=== PATIENT | female | born 1970 | race Caucasian/White ===

== ENCOUNTER 2020-10-11 11:10 | Outpatient (CLI) | payer BC, SELFPAY ==
[2020-10-11 11:26] LABS: Hematocrit 37.8 % (37.0-47.0); Hemoglobin 12.4 g/dL (12.0-15.0)
== END 2020-10-11 11:11 | disposition home or self-care (01) ==
LOC: ANHSURGERY 11:13
PROVIDERS: Anesthesiology; PCP Internal Medicine Infectious Disease; Visit Provider Orthopaedic Surgery
DX: D64.9 Anemia, unspecified (principal); Z01.818 Encounter for other preprocedural examination
CPT/HCPCS: 36415; 85014; 85018

== ENCOUNTER 2020-10-14 01:16 | Outpatient (CLI) | payer BC, SELFPAY ==
[2020-10-14 18:31] LABS: SARS-CoV-2 RNA PCR Positive
== END 2020-10-14 01:17 | disposition home or self-care (01) ==
LOC: ANHCOVIDDT 01:16
PROVIDERS: PCP Internal Medicine Infectious Disease; Visit Provider Orthopaedic Surgery
DX: Z01.812 Encounter for preprocedural laboratory examination (principal); U07.1 COVID-19
CPT/HCPCS: 87635; C9803; U0003

== ENCOUNTER 2020-11-04 01:52 | Outpatient (CLI) | payer BC, SELFPAY ==
[2020-11-04 18:59] LABS: SARS-CoV-2 RNA PCR Negative
== END 2020-11-04 01:53 | disposition home or self-care (01) ==
LOC: ANHCOVIDDT 01:53
PROVIDERS: PCP Internal Medicine Infectious Disease; Visit Provider Orthopaedic Surgery
DX: Z01.818 Encounter for other preprocedural examination (principal); Z20.828 Contact with and (suspected) exposure to other viral communicable diseases
CPT/HCPCS: 87635; C9803; U0003

== ENCOUNTER 2020-11-07 01:26 | Day surgery (SDC) | payer BC, SELFPAY ==
[2020-10-10 08:23] VITALS: BMI 25.1
--- NOTE | 2020-11-06 12:06 | WPDANESEPPF ---
Anes - Initial Pre Proc Eval Procedure: Operation Date: 11/07/20 13:00 Proposed Procedures p Lateral Epicondyle Debridement Left Elbow - Teddy Toussaint MD s Ulnar Nerve Release Left Elbow - Teddy Toussaint MD Date/Time: 11/06/20 12:06 Surgeon: Teddy Toussaint MD Pre Op Diagnosis: Lateral Epicondylitis/ Ulnar Neuropathy Left Elbow Patient Data Age: 50 Gender: F Height: 1.83 m Weight: 84 kg Allergies Allergy/AdvReac Type Severity Reaction Status Date / Time morphine Allergy Severe NAUSEA AND Verified 11/07/20 11:14 VOMITING erythromycin base Allergy Mild RASH Verified 11/07/20 11:14 Home Medications Medication Instructions Recorded Confirmed Type methylphenidate HCl 18 mg 18 mg PO QAM 04/17/20 11/07/20 History tablet,extended release 24 hr oxycodone-acetaminophen 5 mg-325 1 tablet PO Q6H PRN 04/17/20 11/07/20 History mg tablet biotin 2,000 mcg PO DAILY 10/10/20 11/07/20 History buspirone [BuSpar] 10 mg PO QAM 10/10/20 11/07/20 History cholecalciferol (vitamin D3) 50 mcg PO DAILY 10/10/20 11/07/20 History iron 18 mg PO DAILY 10/10/20 11/07/20 History omeprazole 20 mg QAM 10/10/20 11/07/20 History zinc 1 tablet PO QAM 10/10/20 11/07/20 History Patient hx anesthesia problems: none Family hx anesthesia problems: none PMFSH Past Medical History Medical History (Updated 11/06/20 @ 12:08 by Alexsander Sanford MD) Asthma Back pain Chronic GERD Chronic narcotic use Cubital tunnel syndrome on left Lateral epicondylitis, left elbow Medial epicondylitis of left elbow PCOS (polycystic ovarian syndrome) Surgical History Surgical History History of ankle surgery (~10/2008) Lt Ankle (Reconstruction) History of bilateral carpal tunnel release (~09/1992) History of detached retina repair (~2004) Lt Eye History of gastric surgery (~12/2014) History of hammer toe correction (~05/1998) History of repair of anterior cruciate ligament of right knee (~07/2008) History of repair of left rotator cuff (~08/2008) History of spinal fusion (~01/2011) L5-S1 Status post excision of Contreras's neuroma (~05/2013) Family History Family History Unknown History of prostate surgery Asthma Heart disease Arthritis Social History Social History Smoking status: Never smoker Alcohol intake: current Drinks per week: 3 Substance use: never Living arrangements: with family Spiritual care concerns: No Anes - Eval Final PreProcedure Day of Procedure 11/06/20 12:06 Patient weight: normal Heart: regular rate and rhythm Lungs: clear to auscultation and normal air movement Airway: Mallampati scale class II Neurological: alert and oriented Last oral intake: >/= 8 hours ASA classification: III Emergent: no Anesthetic plan: proceed Anesthesia type and monitoring: general LMA Informed Consent: The patient's anesthetic plan and its attendant risks and benefits were discussed with the patient/family/POA. Questions were solicited and answers provided to the satisfaction of the patient/family/POA.
[2020-11-07] VITALS (11 sets, daily range): BP systolic 117–143; BP diastolic 73–98; PULSE 66–93; RESP 16–18; TEMP 36–36.6; O2SAT 93–100
[2020-11-07] MEDS: ACETAMINOPHEN 500 MG TABLET 1000 MG PO (11:20)
[2020-11-07] MEDS: LACTATED RINGERS 1,000 ML 30 ML IV CONT ×2 (11:42→15:03)
[2020-11-07] MEDS: KETOROLAC 15 MG/ML VIAL (*BKC) IV PUSH (11:43)
--- NOTE | 2020-11-07 12:59 | WPDHPUPDATE1 ---
History and Physical Update Update Date/Time: 11/07/20 12:59 History and Physical has been reviewed, including an updated exam of the patient. There are NO changes in the patient's condition. Risks, benefits, and alternatives have been discussed and questions answered. Patient agrees to proceed with procedure.
[2020-11-07] MEDS: ceFAZolin 2 GM/D5W 50 ML 2 GM/50 ML BAG IVPB (13:20)
[2020-11-07] MEDS: BUPIVACAINE HCL 0.5% PF 30 ML VIAL INFILTRATE (13:35)
[2020-11-07] MEDS: fentaNYL CITRATE INJ (*CRX) 100 MCG/2 ML VIAL 25 MCG IV PUSH ×8 (15:26→16:11)
[2020-11-07] MEDS: ONDANSETRON INJ 4 MG/2 ML VIAL IV PUSH (15:58)
--- NOTE | 2020-11-07 16:33 | P.OP_ITS ---
Procedure Note - Detailed Date of procedure: 11/07/20 Pre-op diagnosis: Lateral Epicondylitis/ Ulnar Neuropathy Left Elbow Post-op diagnosis: same Procedure performed: 1. Debridement of lateral epicondylitis, left elbow. 2. Ulnar nerve decompression at the left elbow. Anesthesia: GLMA and MAC Surgeon: Teddy Toussaint MD Estimated blood loss (mL): 5 Complications: None Condition: stable Disposition: PACU Findings: Physician medical office assistant instructor, Carli Mcintyre PA-C, required for surgery; including patient positioning, draping, tissue retraction, maintaining instrument position, wound closure, and dressing placement. Operative details: The patient was brought to the operating room. Preoperative antibiotics were given. A general anesthetic was administered. The arm was prepped and draped in the usual sterile fashion with a well-padded tourniquet on the arm. The limb was exsanguinated and the tourniquet inflated to 250 mililiters of mercury. A longitudinal incision was created over the pathological site at the lateral epicondyle. Dissection was brought down to the interval between the common extensor tendons and the extensor carpi radialis longus. The muscle was elevated, exposing the extensor carpi radialis brevis. Degenerative pathologic tendon was identified and excised sharply. The tissue was intimately connected to the capsule. The intra articular capsule was inspected. There were no significant pathologic tissues or loose bodies ob served. The lateral epicondyle was abraded with a rongeur. The scratch test was to confirm complete excision of pathologic tissue. The wound was carefully irrigated. The extensor tendon origin was repaired with [id number] sutures #1 Vicryl . The skin was closed with interrupted 3-0 Monocryl suture followed by running 4-0 Monocryl suture and Steri-Strips. Attention was turned to the medial elbow. A longitudinal incision was created posterior to the medial epicondyle. Careful dissection was brought down to the ulnar nerve. It was identified proximally and dissected to the cubital tunnel retinaculum. Careful dissection released the cubital tunnel retinaculum. The dissection was carried out to the flexor carpi the palmaris. The 1st motor branch was carefully identified and protected. Attention was turned proximally in the nerve was released proximal to the intermuscular septum. The arm was flexed and the nerve was assessed. The nerve was stable. The tourniquet was released to assure that there was no significant bleeding. Meticulous hemostasis was maintained. The subcutaneous tissues were closed with 2-0 Vicryl suture. The skin was closed with interrupted 3-0 Monocryl suture followed by running 4-0 Monocryl suture and Steri-Strips. Sterile dressing was applied with a brace at the wrist and a soft splint at the elbow. The patient was extubated and brought to the recovery room in stable condition.
[2020-11-07] MEDS: oxyCODONE HCL (*CRX) 5 MG TAB IR PO (16:52)
== END 2020-11-07 17:35 | disposition home or self-care (01) ==
PROVIDERS: PCP Internal Medicine Infectious Disease; Visit Provider Orthopaedic Surgery
PROC: (CPT 24110; principal; 2020-11-07 13:00)
PROC: (CPT 64718; 2020-11-07 13:00)
DX: M77.12 Lateral epicondylitis, left elbow (principal); G56.22 Lesion of ulnar nerve, left upper limb; E28.2 Polycystic ovarian syndrome; Z79.891 Long term (current) use of opiate analgesic
CPT/HCPCS: 64718; 24359; A9270; J0690; J1100; J1885; J2250; J2405; J2704; J3010; J7120

== ENCOUNTER → 2022-12-31 11:30 | Outpatient (CLI) | payer BC, SELFPAY ==
--- NOTE | ~2022-12-31 | MR_ITS ---
EXAMINATION: MR hip LT wo con DATE: 12/31/2022 12:42 INDICATION: Left hip pain. TECHNIQUE: Magnetic resonance imaging (MRI) of the left hip was performed without intravenous contras t. COMPARISON: Left hip radiograph 12/25/2022 FINDINGS: Bones/cartilage: There are changes of posterior and anterior fusion procedures at L5-S1. The femoral head/neck morphol ogies are normal. The hip joints demonstrate tiny osteophytes. There is partial-thickness cartilage l oss of left hip joint superiorly and posterosuperiorly. Labrum: There is degeneration of left acetabular labrum without well-defined tear. Fluid: There is a left hip joint effusion. There is mild bilateral trochanteric bursitis. Soft tissues: There is mild tendinopathy of the hamstring origins bilaterally. The iliopsoas tendons are normal. Th ere is edema and compression of right quadratus femoris muscle between right lesser trochanter and ri ght ischium, consistent with ischiofemoral impingement. There is mild left gluteus minimus tendinopat hy. The gluteus medius tendons are normal. IMPRESSION: 1. Mild left hip chondrosis. 2. Left hip joint effusion. 3. Right-sided ischiofemoral impingement. Reviewed, dictated and finalized at location A. P OPERATOR
== END ==
PROVIDERS: PCP Internal Medicine Infectious Disease; Visit Provider Orthopaedic Surgery
DX: M25.452 Effusion, left hip (principal)
CPT/HCPCS: 73721

== ENCOUNTER 2023-04-24 11:32 | Emergency (ER) | payer BC, SELFPAY ==
--- NOTE | 2023-04-24 11:40 | ED.URI ---
HPI - URI/Sore Throat General Chief Complaint: Upper Respiratory Infection Stated Complaint: cough and left ear pain Time Seen by Provider: 04/24/23 11:40 Source: patient and RN notes reviewed History of Present Illness HPI Narrative: Patient is a 53-year-old female presents to urgent care with complaints of left ear pain and cough. Patient states she believes it started with some allergies when she was in [place] staying at someone's house who had a dog. Patient states that she was taking some Mucinex and allergy medication with mild relief. Patient states she also was using an ear drop to the left ear that has lidocaine. Patient states that ear drops initially did make the ear failed better however over the last couple days she is having increased pain. Patient just flew back from [place] last night. States symptoms started approximately 10 days ago. Denies any fever. No other acute complaints. No acute distress noted. Patient aware of the plan of care. Some parts of this dictation were generated by voice recognition software and may contain typographical and/or grammatical inaccuracies. Related Data Home Medications Medication Instructions Recorded Confirmed buspirone 10 mg tablet 10 mg PO QAM 10/10/20 02/26/23 iron 18 mg tablet 18 mg PO DAILY 10/10/20 02/26/23 zinc 1 tablet PO QAM 10/10/20 02/26/23 duloxetine 20 mg capsule,delayed 20 mg PO BID 12/25/22 02/26/23 release methylphenidate HCl 18 mg 27 mg PO QAM 12/25/22 02/26/23 tablet,extended release 24 hr (Concerta) periton.dialysis 7-2.5 % dextr ml intraperitoneal 12/25/22 02/26/23 (Delflex with 2.5 % Dextrose) Allergies Allergy/AdvReac Type Severity Reaction Status Date / Time morphine Allergy Severe NAUSEA AND Verified 02/26/23 14:53 VOMITING erythromycin base Allergy Mild RASH Verified 02/26/23 14:53 Review of Systems Review of Systems: CONSTITUTIONAL: Denies fever, chills, or sweats. EYES: Denies visual changes, redness, or discharge. ENT: Reports congestion, itchy eyes and left otalgia CARDIOVASCULAR: Denies chest pain, palpitations, or edema. RESPIRATORY: Reports cough without dyspnea GASTROINTESTINAL: Denies abdominal pain, nausea, vomiting, or diarrhea. GENITOURINARY: Denies dysuria or hematuria. SKIN: Denies rash or itching. MUSCULOSKELETAL: Denies back pain, joint pain, or myalgia. NEUROLOGIC: Denies headache, numbness, or weakness. All other systems reviewed are negative, except as documented in HPI. [facility] Past Medical History Medical History Asthma Back pain Chronic GERD Chronic narcotic use Cubital tunnel syndrome on left Lateral epicondylitis, left elbow Medial epicondylitis of left elbow PCOS (polycystic ovarian syndrome) Surgical History Surgical History History of ankle surgery (~10/2008) Lt Ankle (Reconstruction) History of bilateral carpal tunnel release (~09/1992) History of detached retina repair (~2004) Lt Eye History of gastric surgery (~12/2014) History of hammer toe correction (~05/1998) History of repair of anterior cruciate ligament of right knee (~07/2008) History of repair of left rotator cuff (~08/2008) History of spinal fusion (~01/2011) L5-S1 Status post excision of Contreras's neuroma (~05/2013) Family History Family History Unknown History of prostate surgery Asthma Heart disease Arthritis Social History Social History Smoking status: Never smoker Alcohol intake: current Drinks per week: 3 Substance use: never Lack of Transportation: No Lack of Food: Never True Current Housing: I Have Housing Concerned About Future Housing: No Difficulty Paying Gas/Electric Bills: No Difficulty Paying for Meds: No Currently Unemployed: No Education: Decline to Answer
[2023-04-24 11:41] VITALS: BP 150/105; PULSE 95; RESP 18; TEMP 36.8; O2SAT 99
== END 2023-04-24 11:54 | disposition home or self-care (01) ==
PROVIDERS: Emergency Provider Nurse Practitioner Family; PCP Internal Medicine Infectious Disease
DX: R05.9 Cough, unspecified (principal); H69.92 Unspecified Eustachian tube disorder, left ear; J45.909 Unspecified asthma, uncomplicated; K21.9 Gastro-esophageal reflux disease without esophagitis; E28.2 Polycystic ovarian syndrome
CPT/HCPCS: 99213; G0463

== ENCOUNTER 2024-10-08 09:28 | Outpatient (CLI) | payer BC, SELFPAY ==
--- NOTE | 2024-10-08 09:46 | ECG_ITS ---
Test Date: 2024-10-08 10:14:08 Measurements Intervals [place] Rate: 89 P: -7 MI: 146 QRS: 93 QRSD: 88 T: 56 QT: 362 QTc: 442 Interpretive Statements SINUS RHYTHM RIGHT AXIS DEVIATION BASELINE ARTIFACT- I, II, III BORDERLINE ECG No previous ECG available for comparison Electronically Signed On 10-08-2024 10:17:41 REPLENISHMENT ASSOCIATE by Darrius King D.O.
[2024-10-08 09:59] LABS: Hematocrit 43.1 % (37.0-47.0); Hemoglobin 14.2 g/dL (12.0-15.0)
[2024-10-08 10:19] LABS: Albumin Level 4.5 g/dL (3.5-5.1); Estimated Glomerular Filt Rate > 60; Glucose 78 mg/dL (65-110)
== END 2024-10-08 09:29 | disposition home or self-care (01) ==
PROVIDERS: PCP Internal Medicine Infectious Disease; Visit Provider Orthopaedic Surgery
DX: Z01.818 Encounter for other preprocedural examination (principal); M16.12 Unilateral primary osteoarthritis, left hip; R94.31 Abnormal electrocardiogram [ECG] [EKG]
CPT/HCPCS: 36415; 82040; 82565; 82947; 85014; 85018; 93005

== ENCOUNTER 2024-10-25 09:58 | Outpatient (CLI) | payer BC, SELFPAY ==
[2024-10-25 11:57] LABS: Basophils Percent Auto 0.3 % (0.2-1.2); Eosinophils Absolute Auto 0.2 K/mm3 (0-0.3); Eosinophils Percent Auto 1.8 % (0-4.4); Hematocrit 42.9 % (37.0-47.0); Hemoglobin 14.1 g/dL (12.0-15.0); Immature Granulocyte Absolute 0.03 K/mm3 (0.00-0.031); Immature Granulocyte Percent A 0.3 % (0-0.5); Lymphocytes Absolute Auto 2.82 K/mm3 (0.9-3.2); Lymphocytes Percent Auto 30.9 % (18.3-44.2); Mean Corpuscular HGB Conc 32.9 g/dl (32-36); Mean Corpuscular Hemoglobin 31.8 pg (26-34); Mean Corpuscular Volume 96.8 fl (80-100); Mean Platelet Volume 10.4 fl (7.4-10.4); Monocytes Absolute Auto 0.5 K/mm3 (0.1-0.6); Monocytes Percent Auto 4.9 % (2.6-8.5); Neutrophils Absolute Auto 5.6 K/mm3 (1.3-6.7); Neutrophils Percent Auto 61.8 % (45.5-73.1); Platelet Count Result 244 k/mm3 (150-375); Red Blood Count 4.43 M/mm3 (4.2-5.4); Red Cell Distribution Width 12.2 % (11.5-14.5); White Blood Count 9.1 K/mm3 (4.5-10.0)
[2024-10-25 12:11] LABS: Urine Cotinine NEGATIVE
[2024-10-25 13:08] LABS: MRSA (PCR) NOT DETECTED (NOT DETECTE)
[2024-10-25 13:11] LABS: Hemoglobin A1C 5.3 % (<5.7)
== END 2024-10-25 09:59 | disposition home or self-care (01) ==
LOC: ANHSURGERY 10:04
PROVIDERS: PCP Internal Medicine Infectious Disease; Visit Provider Orthopaedic Surgery
DX: Z01.818 Encounter for other preprocedural examination (principal); M16.12 Unilateral primary osteoarthritis, left hip
CPT/HCPCS: 80307; 83036; 85025; 87641

== ENCOUNTER 2024-11-08 00:52 | Day surgery (SDC) | payer BC, SELFPAY ==
[2024-10-25 10:15] VITALS: BP 168/110
[2024-10-25 10:20] VITALS: BP 162/117
[2024-10-25 10:27] VITALS: BP 182/111; PULSE 92; RESP 16; TEMP 36.5; O2SAT 100; BMI 28.7
--- NOTE | 2024-10-25 10:59 | PC.NURSE ---
Report to the Outpatient Waiting Room, entrance under the green pavilion located off [facility], at time ___10:00AM____ on date ___11/08/24____. Planned Procedure Time: ____12:00PM____.? Time changes happen often and if your time is changed the preop area will call you the afternoon before. - You and your visitor will be asked to self-screen and do not enter if you have any COVID symptoms. Please call surgeon if you need to reschedule. - A mask is optional within the hospital at this time. Patients may have clear liquids (water, carbonated beverages, clear teas, apple juice) until 3 hours prior to surgery with a maximum of 20 ounces. - No food from midnight until time of surgery and no smoking. This includes no chewing gum, candy or mints. Take only the following medications with a SIP of water on the morning of surgery: NONE DO NOT STOP ANY OF YOUR OTHER PRESCRIPTION MEDICATIONS PRIOR TO SURGERY EXCEPT THE FOLLOWING Medications to discontinue per physician ____HOLD MELOXICAM 7 DAYS PRE-OP PER DR SPARROW- LAST DOSE 10/31/24 HOLD ALL VITAMINS/SUPPLEMENTS 3 DAYS PRE-OP PER DR LEÓN- LAST DOSE 11/04/24 Please no make-up, nail vietnamese, hairspray, perfume, deodorant, or body powder the day of surgery.? No jewelry (including any body piercings) or valuables the day of surgery, leave them at home.? Please take a shower or bath the night before, or the morning of, surgery with an antibacterial soap.? Wear comfortable, loose fitting clothing.? - Jewelry must be removed prior to entering the operating room.? Rings and piercings that are not removed may be cut off. - The hospital will not accept responsibility for valuables.? - Please leave all valuables, including medications, at home the day of surgery. If you are going home after surgery, a licensed van driver helper must drive you home.? - NO public transportation without another adult if you receive anesthesia. - We recommend that an adult stay with you for 24 hours following discharge. - We also recommend that you do not drive, make important decision, drink alcoholic beverages, or take any drugs that were not prescribed by your health care provider for at least 24 hours after your discharge time. Follow any additional instructions given to you from your surgeon. Telephone instructions given to ___PATIENT and asked if any additional questions and then verbalized understanding. Patient advised to call surgeon office or pre surgery nurse liaison [phone] if any additional questions. Report to the Outpatient Waiting Room, entrance under the green pavilion located off [facility], at time on date . Planned Procedure Time: .? Time changes happen often and if your time is changed the preop area will call you the afternoon before. - You and your visitor will be asked to self-screen and do not enter if you have any COVID symptoms. Please call surgeon if you need to reschedule. - A mask is optional within the hospital at this time. Patients may have clear liquids (water, carbonated beverages, clear teas, apple juice) until 3 hours prior to surgery with a maximum of 20 ounces. - No food from midnight until time of surgery and no smoking. This includes no chewing gum, candy or mints. - Infants may have breast milk until 4 hours before surgery, infant formula 6 hours prior to surgery. - Children will be allowed to drink immediately following surgery.? If applicable, please bring a bottle or sippy cup to assist with drinking. Juice, water, soda, and popsicles are readily available.? For infants on formula, please bring formula the day of surgery.? Pacifiers are allowed. Take only the following medications with a SIP of water on the morning of surgery: DO NOT STOP ANY OF YOUR OTHER PRESCRIPTION MEDICATIONS PRIOR TO SURGERY EXCEPT THE FOLLOWING Medications to discontinue per physician Date to take last dose Please no make-up, nail vietnamese, hairspray, perfume, deodorant, or body powder the day of surgery.? No jewelry (including any body piercings) or valuables the day of surgery, leave them at home.? Please take a shower or bath the night before, or the morning of, surgery with an antibacterial soap.? Wear comfortable, loose fitting clothing.? Children are encouraged to wear pajamas. - Jewelry must be removed prior to entering the operating room.? Rings and piercings that are not removed may be cut off. - The hospital will not accept responsibility for valuables.? - Please leave all valuables, including medications, at home the day of surgery. If you are going home after surgery, a licensed van driver helper must drive you home.? - NO public transportation without another adult if you receive anesthesia. - We recommend that an adult stay with you for 24 hours following discharge. - We also recommend that you do not drive, make important decision, drink alcoholic beverages, or take any drugs that were not prescribed by your health care provider for at least 24 hours after your discharge time. For Pediatric surgeries, we recommend two adults accompany the child home. Follow any additional instructions given to you from your surgeon. Telephone instructions given to and asked if any additional questions and then verbalized understanding. Patient advised to call surgeon office or pre surgery nurse liaison [phone] if any additional questions.
[2024-10-25 11:20] VITALS: BP 187/113
--- NOTE | 2024-10-25 14:00 | PC.NURSE ---
1130 PATIENT INTERVIEW FOR LTHA ON 11/08/24. BP 168/110 AT 1015. 162/117 AT 1020. 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 AT END OF PAT INTERVIEW BP182/111 AT 1115. 187/113 AT 1120. PT DENIES ANY CARDIAC SYMPTOMS, NO DIZZINESS OR HEADACHE. ENCOURAGED PATIENT TO GO TO ER FOR EVALUATION, SHE DECLINED. CALLED PT'S PRIMARY AND THEY WILL SEE PT IN OFFICE THIS AFTERNOON. PT AWARE, GOING TO SEE PCP. SPOKE WITH OFFICE, THEY WILL FAX NOTE FROM PRIMARY AFTER VISIT.
[2024-11-08] VITALS (14 sets, daily range): BP systolic 89–134; BP diastolic 49–86; PULSE 76–105; RESP 12–18; TEMP 36.1–36.4; O2SAT 94–100
--- NOTE | ~2024-11-08 | XR_ITS ---
XR hip LT min 2V Ordering provider: Teddy Toussaint MD History: . POST OP TOTAL HIP . Comparison: None. FINDINGS: BONES: No acute fracture or dislocation. Postoperative changes at the level of L5-S1. HIP JOINT SPACES: Left hip arthroplasty. SACROILIAC JOINT SPACES/LUMBAR SPINE: The sacroiliac joint spaces shows mild osteoarthritic changes. Mild degenerative changes of the visualized lower lumbar spine. PUBIC SYMPHYSIS: Normal. SOFT TISSUES: Normal. IMPRESSION: No acute osseous abnormality pelvis and left hip. Left hip arthroplasty. Reviewed, dictated and finalized at location A. H PRESSER
--- NOTE | 2024-11-08 10:42 | WPDANESEPPF ---
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 Patient Data Age: 54 Gender: F Height: 1.83 m Weight: 96 kg Last Vital Signs Temp 36.5 C 10/25/24 10:27 Pulse 92 10/25/24 10:27 Resp 16 10/25/24 10:27 BP 187/113 H 10/25/24 11:20 Pulse Ox 100 10/25/24 10:27 O2 Del Method Room Air 10/25/24 10:27 Allergies Allergy/AdvReac Type Severity Reaction Status Date / Time morphine Allergy Severe NAUSEA AND Verified 11/01/24 11:02 VOMITING erythromycin base Allergy Mild RASH Verified 11/01/24 11:02 hydrocodone (From Vicodin) AdvReac Nausea and Verified 11/01/24 11:02 Vomiting nylon AdvReac Redness of Verified 11/01/24 11:02 Skin Home Medications ?Medication ?Instructions ?Recorded ?Confirmed ?Type zinc 1 tablet PO QAM 10/10/20 11/08/24 History desipramine 25 mg tablet 25 mg PO QHS 10/06/24 11/08/24 History tizanidine 4 mg capsule 4 mg PO TID 10/06/24 11/08/24 History black cohosh 50 mg capsule 200 mg PO DAILY 10/25/24 11/08/24 History cholecalciferol (vitamin D3) 50 50 mcg PO DAILY 10/25/24 11/08/24 History mcg (2,000 unit) tablet estradiol 0.075 mg/24 hr 1 patch transdermal 2XW 10/25/24 11/08/24 History semiweekly transdermal patch ferrous sulfate 137 mg (45 mg 137 mg PO DAILY 10/25/24 11/08/24 History iron) tablet,extended release (Slow Fe) methylphenidate HCl 36 mg 36 mg PO QAM 10/25/24 11/08/24 History tablet,extended release 24 hr methylphenidate HCl 5 mg tablet 5 mg PO DIRECTED 10/25/24 11/08/24 History sucralfate 100 mg/mL oral See Rx Instructions .Route .COMPLEX 10/25/24 11/08/24 History suspension trazodone 50 mg tablet 50 mg PO HS PRN Sleep 10/25/24 11/08/24 History aspirin 81 mg tablet,delayed 81 mg PO BID 14 days #28 tabs 11/08/24 Rx release meloxicam 15 mg tablet 15 mg PO DAILY #30 tabs 11/08/24 Rx oxycodone-acetaminophen 5 mg-325 1 - 2 tablet PO Q4-6H PRN pain 7 11/08/24 Rx mg tablet days #30 tabs Patient hx anesthesia problems: none Family hx anesthesia problems: none Results Review: All pre-operative results and documents have been reviewed as part of the pre-operative evaluation. [facility] Past Medical History Medical History Asthma Back pain Chronic GERD Chronic narcotic use Cubital tunnel syndrome on left Lateral epicondylitis, left elbow Medial epicondylitis of left elbow PCOS (polycystic ovarian syndrome) Surgical History Surgical History History of ankle surgery (~10/2008) Lt Ankle (Reconstruction) History of bilateral carpal tunnel release (~09/1992) History of detached retina repair (~2004) Lt Eye History of gastric surgery (~12/2014) History of hammer toe correction (~05/1998) History of repair of anterior cruciate ligament of right knee (~07/2008) History of repair of left rotator cuff (~08/2008) History of spinal fusion (~01/2011) L5-S1 Status post excision of Contreras's neuroma (~05/2013) Family History Family History (System 10/27/24 @ 12:01 by Sarah Beth Mcclure) Unknown History of prostate surgery Asthma Heart disease Arthritis Other Family history of arthritis Family history of cardiovascular disease Malignant neoplasm of prostate Social History Social History (System 10/27/24 @ 12:01 by Sarah Beth Mcclure) Smoking status: Never smoker Alcohol intake: current Drinks per week: 3 Substance use: never Do You Feel Safe in your Home?: Yes Lack of Transportation: No Lack of Food: Never True Current Housing: I Have Housing Concerned About Future Housing: No Difficulty Paying Gas/Electric Bills: No Difficulty Paying for Meds: No Currently Unemployed: No Education: Associate Degree Difficulty w/ Childcare or Family Care: No Living arrangements: with family Additional living arrangements comments: CHILDREN Spiritual care concerns: No Anes - Eval Final PreProcedure Day of Procedure 11/08/24 10:42 Patient weight: overweight Heart: regular rate and rhythm Lungs: clear to auscultation Airway: Mallampati scale class II Neurological: alert and oriented Last oral intake: >/= 8 hours ASA classification: III Emergent: no Anesthetic plan: proceed Anesthesia type and monitoring: general ETT and standard monitoring Results Review: All pre-operative results and documents have been reviewed as part of the pre-operative evaluation. Informed Consent: The patient's anesthetic plan and its attendant risks and benefits were discussed with the patient/family/POA. Questions were solicited and answers provided to the satisfaction of the patient/family/POA.
[2024-11-08] MEDS: ACETAMINOPHEN 500 MG TABLET 1000 MG PO (11:25)
[2024-11-08] MEDS: LACTATED RINGERS 1,000 ML 30 ML IV CONT ×2 (11:30→14:18)
[2024-11-08] MEDS: TRANEXAMIC ACID 1,000MG/ISO100 1,000 MG/100 ML BAG 200 MG IVPB (11:30)
[2024-11-08] MEDS: fentaNYL CITRATE INJ (*CRX) 100 MCG/2 ML VIAL 50 MCG IV PUSH (11:39)
--- NOTE | 2024-11-08 11:52 | WPDHPUPDATE1 ---
History and Physical Update Update Date/Time: 11/08/24 11:52 History and Physical has been reviewed, including an updated exam of the patient. There are NO changes in the patient's condition. Risks, benefits, and alternatives have been discussed and questions answered. Patient agrees to proceed with procedure.
[2024-11-08] MEDS: ceFAZolin 2 GM/D5W 50 ML 2 GM/50 ML BAG IVPB ×2 (12:07→19:57)
[2024-11-08] MEDS: SODIUM CHLORIDE 0.9% IV 38.7 ML, ROPivacaine HCL 1% 200 MG, KETOROLAC INJ (*BKC) 15 MG,... INFILTRATE (12:38)
[2024-11-08] MEDS: TRANEXAMIC ACID 1,000 MG/10 ML AMPUL 1000 MG IV PUSH (13:47)
[2024-11-08] MEDS: fentaNYL CITRATE INJ (*CRX) 100 MCG/2 ML VIAL 25 MCG IV PUSH ×4 (14:33→14:40)
--- NOTE | 2024-11-08 14:38 | W.PM.PROC2 ---
Procedure Note - Detailed Date of Procedure 11/08/24 Pre-op Diagnosis Left hip degenerative arthritis. Post-op Diagnosis Same Procedure Performed Left Total Hip Arthroplasty Surgeon Teddy Toussaint MD Macaroni Press Operator Carli Chávez PA-C Anesthesia General Indications Severe pain despite conservative treatment and arthroscopic labral repair elsewhere. Findings Diffuse chondromalacia. Evidence of prior labral and capsule repair. Excellent bone quality. Optimal impingement free range of motion and stability. Description of Procedure The patient was given preoperative antibiotics. A general anesthetic was administered. The patient was carefully placed in the lateral decubitus position on the PEG board. The shoulders and hips were carefully positioned for component and leg length positioning reference. The hip was prepped and draped in the usual sterile fashion. A longitudinal incision was created over the posterior aspect of the greater trochanter. Careful dissection was brought down through the deep fascia with electrocautery. A minimally invasive optimized posterior approach to the hip was performed. The short external rotators and capsule were taken down in an L-shaped capsulotomy. The tissue was tagged for later repair using number 2 high strength suture. The femoral neck was measured and taken in situ. The femoral head was removed. The acetabulum was carefully exposed. The inferior capsule was released. The labrum was resected. The acetabulum was sequentially reamed to one over the intended cup size. The cup was impacted into position with excellent press-fit. Slight increased anteversion and elevated liner, to account for lumbar fusion. Typical anatomic landmarks, including the bony contact points as well as the inferior transverse acetabular ligament were used to confirm cup positioning with preoperative templating. Attention was turned to the femur, which was carefully exposed. The hip was reamed and then broached sequentially. Excellent press-fit was obtained with the broach. The hip was trialed. Measurements were utilized, including the lesser trochanter as well as the center of the femoral head and the tip of the trochanter, and excellent assessment of the offset and leg lengths were confirmed. The real component was impacted into position. Trialing confirmed appropriate leg length and offset with soft tissue balancing as well apparent feel of the leg, both at the knee and the heel. Soft tissues were assessed using the the iliotibial band. Reduction of the posterior capsule and external rotators were also used as a secondary assessment. The hip was copiously irrigated with pulsatile lavage periodically throughout the procedure. The real components were then assembled and reduced. The hip was stable throughout typical maneuvers, including extension, external rotation to 70 degrees, the position of sleep as well as flexion to 90 degrees with internal rotation past 35 degrees. The shake test confirmed stability without impingement. Osteophytes were removed as necessary. The short external rotators and capsule were repaired back to the posterior trochanter through drill holes. The deep fascia was repaired with running number 2 barbed suture, followed by 2-0 Stratafix suture and 3-0 Stratafix suture in the dermis. Steri-Strips were placed on the skin, followed by a sterile occlusive dressing. There were no complications. Meticulous hemostasis was maintained with the AquaMantys device. The patient was brought to the recovery room in stable condition. There were no complications. Physician syrup mixer assistant, Carli Chávez PA-C, required for surgery; including patient positioning, draping, tissue retraction, maintaining instrument position, hip dislocation/ relocation, wound closure, and dressing placement. Implants The Accolade II hip stem, 127 degree size 4 , was utilized with excellent press-fit. The 52 mm Trident II acetabular component was impacted with excellent press-fit stability. 10 degree elevated polyethylene liner the +2.5, 36 mm Biolox ceramic femoral head was utilized. Estimated Blood Loss 200 Drains No Packing No Pathology None sent Complications No immediate complications Condition Stable Disposition PACU [facility] Billing Surgery - Charge Forward: Surgery Billing
[2024-11-08] MEDS: HYDROmorphone HCL INJ (*CRX) 1 MG/ML SYR 0.5 MG IV PUSH ×6 (14:50→22:24)
[2024-11-08] MEDS: oxyCODONE/ACETAMINOPHEN (*CRX) 5-325 MG TABLET 1 TABLET PO (16:22)
[2024-11-08] MEDS: SODIUM CHLORIDE 0.9% IV 1,000 ML 125 ML IV CONT (16:23)
[2024-11-08] MEDS: SENNA/DOCUSATE SODIUM TABLET 2 TAB PO (17:39)
[2024-11-08] MEDS: TIZANIDINE HCL 4 MG TABLET PO (17:39)
[2024-11-08] MEDS: ASPIRIN 81 MG ENTERIC TABLET PO (17:39)
[2024-11-08] MEDS: ACETAMINOPHEN 325 MG TABLET 650 MG PO (17:39)
[2024-11-08] MEDS: LORazepam (*CRX) 1 MG TABLET PO (18:16)
[2024-11-08] MEDS: FAMOTIDINE 20 MG TABLET PO (20:01)
[2024-11-08] MEDS: oxyCODONE/ACETAMINOPHEN (*CRX) 10-325 MG TABLET 1 TAB PO (20:01)
[2024-11-08] MEDS: traZODone HCL 50 MG TABLET PO (20:02)
[2024-11-09 00:17] VITALS: BP 113/57; PULSE 102; RESP 18; TEMP 36.2; O2SAT 97
[2024-11-09] MEDS: ACETAMINOPHEN 325 MG TABLET 650 MG PO ×3 (00:39→12:29)
[2024-11-09] MEDS: oxyCODONE/ACETAMINOPHEN (*CRX) 10-325 MG TABLET 1 TAB PO ×2 (02:29→09:01)
[2024-11-09] MEDS: ceFAZolin 2 GM/D5W 50 ML 2 GM/50 ML BAG IVPB (03:10)
[2024-11-09 05:25] VITALS: BP 119/64; PULSE 100; RESP 16; TEMP 37.1; O2SAT 100
[2024-11-09] MEDS: IBUPROFEN IV 800 MG/200 ML 800 MG/200 ML BAG 400 MG IVPB (06:10)
[2024-11-09 06:46] LABS: Basophils Percent Auto 0.2 % (0.2-1.2); Eosinophils Percent Auto 0.1 % (0-4.4); Hematocrit 35.4 % (37.0-47.0); Hemoglobin 11.7 g/dL (12.0-15.0); Immature Granulocyte Absolute 0.07 K/mm3 (0.00-0.031); Immature Granulocyte Percent A 0.5 % (0-0.5); Lymphocytes Absolute Auto 2.12 K/mm3 (0.9-3.2); Lymphocytes Percent Auto 16.4 % (18.3-44.2); Mean Corpuscular HGB Conc 33.1 g/dl (32-36); Mean Corpuscular Volume 96.7 fl (80-100); Mean Platelet Volume 10.6 fl (7.4-10.4); Monocytes Percent Auto 7.8 % (2.6-8.5); Neutrophils Absolute Auto 9.7 K/mm3 (1.3-6.7); Platelet Count Result 218 k/mm3 (150-375); Red Blood Count 3.66 M/mm3 (4.2-5.4); Red Cell Distribution Width 11.9 % (11.5-14.5); White Blood Count 12.9 K/mm3 (4.5-10.0)
[2024-11-09 06:57] LABS: Anion Gap 3 mmol/L (4-12); Blood Urea Nitrogen 16 mg/dL (7-17); Calcium 8.2 mg/dL (8.4-10.2); Carbon Dioxide 27 mmol/L (22-30); Chloride 102 mmol/L (98-107); Estimated CRCL calculation 73 ml/min; Estimated Glomerular Filt Rate > 60; Glucose 107 mg/dL (65-110); Potassium 3.3 mmol/L (3.4-5.0); Sodium 132 mmol/L (137-145)
[2024-11-09] MEDS: polyethylene glycoL 3350 17 GM POWD.PACK PO (08:54)
[2024-11-09] MEDS: ONDANSETRON INJ 4 MG/2 ML VIAL IV PUSH (08:54)
[2024-11-09] MEDS: SENNA/DOCUSATE SODIUM TABLET 2 TAB PO (08:55)
[2024-11-09] MEDS: TIZANIDINE HCL 4 MG TABLET PO ×2 (08:55→12:29)
[2024-11-09] MEDS: ASPIRIN 81 MG ENTERIC TABLET PO (08:55)
[2024-11-09] MEDS: FAMOTIDINE 20 MG TABLET PO (08:55)
[2024-11-09 09:25] VITALS: BP 109/65; PULSE 89; RESP 16; TEMP 36.6; O2SAT 98
--- NOTE | 2024-11-09 10:08 | P.DS_ITS ---
DS: Admitting Diagnosis Discharge Date 11/09/24 Admitting Diagnosis Left hip degenerative arthritis. DS: Discharge Diagnosis Discharge Diagnosis (1) Status post total hip replacement, left: Code(s): Z96.642 - Presence of left artificial hip joint Status: Acute (2) Orthopedic aftercare for joint replacement: Qualifiers: Joint replacement surgery site: hip Laterality: left Qualified Code(s): Z47.1 - Aftercare following joint replacement surgery; Z96.642 - Presence of left artificial hip joint Code(s): Z47.1 - Aftercare following joint replacement surgery Status: Acute DS: Summary Hospital Course Reason for hospitalization: Total hip arthroplasty. Hospital Course: Tolerated surgery well. Progressed appropriately with therapy. Status at Discharge Functional status at discharge: uses cane/walker Overall status at discharge: patient is progressing back to baseline Time Spent with Patient Time attestation: Total time spent providing and/or coordinating discharge services: Exam Const: General: no acute distress Resp: Effort & Inspection: normal respiratory effort Skin: Other: Wound healing well. Mepilex dressing intact. No hematoma or drainage. Neuro: Motor exam (neuro): 5/5 motor strength present throughout Sensory Exam: normal sensation Psych: Mental Status: mental status grossly normal Speech and movement: Normal speech and movement present DS: Data Data Completed and Pending Labs on day of discharge: Labs from last 24 hours 11/09/24 11/08/24 06:29 11:14 WBC 12.9 H RBC 3.66 L Hgb 11.7 L Hct 35.4 L MCV 96.7 MCH 32.0 MCHC 33.1 RDW 11.9 Plt Count 218 MPV 10.6 H Immature Gran % (Auto) 0.5 Neut % (Auto) 75.0 H Lymph % (Auto) 16.4 L [place] % (Auto) 7.8 Eos % (Auto) 0.1 Baso % (Auto) 0.2 Lymph # (Auto) 2.12 [place] # (Auto) 1.0 H Eos # (Auto) 0.0 Baso # (Auto) 0.0 Abs Immat Gran (auto) 0.07 H Absolute Neuts (auto) 9.7 H Absolute Nucleated RBC 0.000 Nucleated RBC % 0.0 Sodium 132 L Potassium 3.3 L Chloride 102 Carbon Dioxide 27 Anion Gap 3 L BUN 16 Creatinine 0.90 Estim Creat Clear Calc 73 Estimated GFR > 60 Glucose 107 Calcium 8.2 L Blood Type O Positive Antibody Screen Negative Discharge Plan Discharge Patient Disposition: Home, Self-Care Discharge Instructions: See green instruction sheets Patient Language: Citizen Of [place] Stand Alone Forms: General Discharge Instructions Follow-up/Referrals: Carli Chávez PA [Physician Health Record Technician] - Discharge Medications: New aspirin 81 mg tablet,delayed release (DR/EC) 81 mg PO BID 14 Days Qty: 28 0RF meloxicam 15 mg tablet 15 mg PO DAILY Qty: 30 0RF Rx Instructions: Cut in half. Take 1/2 in morning and 1/2 at night. Take with food. Stop if stomach upset. oxycodone-acetaminophen 5-325 mg tablet 1 - 2 tablet PO Q4-6H PRN (Reason: pain) 7 Days Qty: 30 0RF lorazepam [Ativan] 0.5 mg tablet 0.5 mg PO TID PRN (Reason: anxiety) Qty: 20 0RF Continued tizanidine 4 mg capsule 4 mg PO TID desipramine 25 mg tablet 25 mg PO QHS zinc Tablet,Chewable 1 tablet PO QAM methylphenidate HCl 5 mg tablet 5 mg PO DIRECTED Patient Comments: 5M IN THE AFTERNOON PRN ADHD SYMPTOMS methylphenidate HCl 36 mg tablet extended release 24hr 36 mg PO QAM Slow Fe 137 mg (45 mg iron) Tablet Extended Release 137 mg PO DAILY trazodone 50 mg Tablet 50 mg PO HS PRN (Reason: Sleep) estradiol 0.075 mg/24 hr patch semiweekly 1 patch transdermal 2XW sucralfate 100 mg/mL suspension See Rx Instructions .ROUTE .COMPLEX Patient Comments: NEEDED FOR FOR GERD Rx Instructions: NEEDED FOR GERD black cohosh 50 mg Capsule 200 mg PO DAILY cholecalciferol (vitamin D3) 50 mcg (2,000 unit) Tablet 50 mcg PO DAILY Discontinued hydrocodone-acetaminophen 5-325 mg tablet 1 - 2 tablet PO Q12H PRN (Reason: pain) Qty: 30 0RF
--- NOTE | 2024-11-09 11:20 | PC.NURSE ---
Pt discharge instructions read over with pt with opportunity to ask questions. Pt voiced understanding. Awaiting family to pick her up.
[2024-11-09 11:48] VITALS: BP 116/63; PULSE 100; RESP 16; TEMP 36.3; O2SAT 99
--- OUTSIDE RECORDS SUMMARY | 2024-11-15 03:18 | XMS_ITS | Clinical Summary ---
Author Organization [facility] Address [address] [place] [address] Care Team Providers Care Manager Pe Name Role Phone Kelly Roberts RN Unavailable [phone] Iwona Lorenz MD Primary Care Provider [phone] Source Comments [facility],non-owned Affiliates and Associated Physician Practices is amultiple site organization consisting of ambulatory clinics and hospital sitesin [place], [place], [place] and [place]. This disclosure is being madepursuant to the Care Everywhere program and may not contain all information available regarding this patient. Last updated 18.[facility] Allergies Active Allergy Reactions Criticality Noted Date Comments Erythromycin Rash Medium 12/28/2010 Hydrocodone Nausea and/or Vomiting 12/27/2014 Morphine Nausea and/or Vomiting High 12/28/2010 Can take derivatives Gabapentin Other 01/29/2011 Restless Medications * Be aware that medications may not be up to date on this document. Alwaysverify current medications with the patient. Medication Sig Dispensed Refills Start Date End Date Status buPROPion SR 12hr (WELLBUTRIN-SR) 150 MG tablet Take 150 mg by mouth once daily. Active carisoprodol (SOMA) 350 MG tablet Take 1 Tab by mouth 3 times daily as needed. 80 Tab 0 12/29/2014 Active vortioxetine (TRINTELLIX) 10 MG tablet Take 10 mg by mouth once daily Active albuterol HFA (PROVENTIL;VENTOL IN;PROAIR) 108 (90 BASE) MCG/ACT inhaler 4 times daily as needed 12/08/2017 Active oxyCODONE (ROXICODONE) 5 MG/5ML oral solution Take 10 mL by mouth every 4 hours as needed for Pain 240 mL 04/06/2018 Active omeprazole (PRILOSEC) 20 MG capsule TAKE 1 CAPSULE BY MOUTH 2 TIMES DAILY,BEFORE BREAKFAST AND SUPPER 30 capsule 5 06/26/2018 Active buPROPion XL 24hr (WELLBUTRIN-XL) 150 MG tablet 04/20/2019 Active sucralfate (CARAFATE) 1 GM tablet Take 1 tablet by mouth 4 times daily 360 tablet 08/17/2019 Active buPROPion SR 12hr (WELLBUTRIN-SR) 100 MG tablet Take 100 mg by mouth 2 times daily 0 08/16/2019 Active methylphenidate CR (CONCERTA) 18 MG tablet Take 18 mg by mouth once daily 0 09/13/2019 Active sucralfate (CARAFATE) 1 GM/10ML suspensionIndicat ions:Heartburn,Ba riatric surgery status Take 10 mL by mouth once daily 300 mL 5 10/27/2019 Active busPIRone (BUSPAR) 5 MG tablet 08/08/2020 Active sucralfate (CARAFATE) 1 GM/10ML suspension Take 10 mL by mouth 4 times daily 420 mL 11 08/28/2021 Active omeprazole (PRILOSEC) 20 MG capsule Take 1 (one) capsule by mouth once daily 30 capsule 11 08/28/2021 Active Liraglutide -Weight Management (SAXENDA) 18 MG/3ML Inject 3 mg subcutaneously once daily 15 mL 2 10/26/2021 Active Insulin Pen Needle (BD PEN NEEDLE ESTEFANIA U/F) 32G X 4 MM MISC Inject 1 syringe subcutaneously once daily 100 Each 1 10/26/2021 Active Active Problems Problem Noted Date Diagnosed Date History of sleeve gastrectomy 08/15/2021 Itching 11/22/2020 Overview (08/29/2021): Last Assessment & Plan: Patient is reporting intense itching that occurred beginning on Friday. She does have some palmar erythema and swelling bilaterally. Etiology is uncertain at this time. Unclear if this is d/t an allergen vs viral in nature. She was seen with Dr. Espino who at this time, recommending labs to look for elevated eosinophils or other possible sources. We will treat with steroids and vistaril given intense itching. She will return next week or sooner if needed if symptoms worsen or persist. Last Assessment & Plan: Patient is reporting intense itching that occurred beginning on Friday. She does have some palmar erythema and swelling bilaterally. Etiology is uncertain at this time. Unclear if this is d/t an allergen vs viral in nature. She was seen with Dr. Espino who at this time, recommending labs to look for elevated eosinophils or other possible sources. We will treat with steroids and vistaril given intense itching. She will return next week or sooner if needed if symptoms worsen or persist. History of obesity in adulthood 11/02/2019 Overweight (BMI 25.0-29.9) 11/02/2019 Attention deficit hyperactivity disorder (ADHD) 10/27/2017 Recurrent major depressive disorder, in full rem ission 10/27/2017 Tachycardia 12/28/2014 Morbid obesity 08/18/2014 Asthma 06/28/2014 Overview (08/29/2021): Asthma Asthma Osteoarthritis of cervical spine 10/08/2011 Lumbar back pain 01/27/2011 History of gastric ulcer DJD (degenerative joint disease) Fatty liver disease, nonalcoholic Elevated cholesterol Overview (07/27/2014): not on Rx Hypertension Arthritis Resolved Problems Problem Noted Date Diagnosed Date Resolved Date Morbid obesity 12/28/2014 06/14/2020 Family History Medical History Relation Name Comments Asthma Brother 2 Arthritis - Osteo Father Arthritis - Rheumatoid Father CAD (Coronary Artery Disease) Father Hypercholesterolemia Father Migraine Father Arthritis - Osteo Maternal Grandfather Arthritis - Rheumatoid Maternal Grandfather CAD (Coronary Artery Disease) Maternal Grandfather Cancer Maternal Grandfather Heart Failure Maternal Grandfather Hypercholesterolemia Maternal Grandfather Hypertension Maternal Grandfather Stroke Maternal Grandfather Arthritis - Osteo Maternal Grandmother Arthritis - Rheumatoid Maternal Grandmother Cancer Maternal Grandmother Hypertension Maternal Grandmother Arthritis - Osteo Mother Arthritis - Rheumatoid Mother Hypertension Mother Migraine Mother Relation Name Status Comments Brother 1 Alive Brother 2 Father Alive Maternal Grandfather Maternal Grandmother Mother Alive Social History Tobacco Use Types Packs/Day Years Used Date Smoking Tobacco: Never Smokeless Tobacco: Never Alcohol Use Standard Drinks/Week Comments Yes 0 (1 standard drink = 0.6 oz pur e alcohol) social Sex and Gender Information Value Date Recorded Sex Assigned at Not on file Gender Identity Not on file Sexual Orientation Not on file Last Filed Vital Signs Vital Sign Reading Time Taken Comments Blood Pressure 122/80 01/14/2022 9:35 AM LAUNCH CHECK OUT Pulse 79 01/14/2022 9:35 AM LAUNCH CHECK OUT Temperature 36.4 ??C (97.6 ??F) 01/14/2022 9:35 AM CS T Respiratory Rate 20 08/08/2021 11:54 AM CDT Oxygen Saturation 98% 08/28/2021 1:24 PM CDT Inhaled Oxygen Concentration - - Weight 94.4 kg (208 lb 3.2 oz) 01/14/2022 9:35 A M LAUNCH CHECK OUT Height 182.9 cm (6') 01/14/2022 9:35 AM LAUNCH CHECK OUT Body Mass Index 28.24 01/14/2022 9:35 AM LAUNCH CHECK OUT Plan of Treatment Health Maintenance Due Date Last Done Comments COLOGUARD (AGES 45-75) - COLON CA SCREENING 1971 COLON MONITORING 1971 COLONOSCOPY - COLON CA SCREENING 1971 CT COLONOGRAPHY - COLON CA SCREENING 1971 Colorectal Cancer Screening 1971 FIT - COLON CA SCREENING 1971 FLEX SIG - COLON CA SCREENING 1971 MAMMOGRAM 1971 PAP SMEAR 1971 PNEUMOCOCCAL VACCINE (1 of 2 - PCV) 1977 HIV SCREENING 1986 HEPATITIS C SCREENING 02/17/1989 DTAP/TDAP/TD VACCINES (1 - Tdap) 1990 HEPATITIS B VACCINE (1 of 3 - 19+ 3-dose series) 1990 ZOSTER VACCINE (1 of 2) 2021 SCREENING FOR DIABETES 03/08/2022 9, 03/08/2019, 12/29/2014, Additional history exists DEPRESSION SCREENING 11/17/2023 LIPID TESTING 03/08/2024 03/08/2019 COVID-19 VACCINE (2023- season) 2024 INFLUENZA VACCINE (#1) 2024 08/11/2021, 2015 HIB VACCINE Aged Out No longer eligi ble based on patient's age to complete this topic HPV VACCINE Aged Out No longer eligi ble based on patient's age to complete this topic MENINGOCOCCAL VACCINE Aged Out No diane alejo eligible based on patient's age to complete this topic Procedures Procedure Name Priority Date/Time Associated Diagnosis Comments COMPREHENSIVE METABOLIC PANEL Routine 03/08/2019 11:26 AM CDT Abdominal pain, LUQ (left upper quadrant) Abdominal pain, RUQ (right upper quadrant) Nausea LIPID PROFILE Routine 03/08/2019 11:26 AM CDT Abdominal pain, LUQ (left upper quadrant) Abdominal pain, RUQ (right upper quadrant) Nausea from Last 3 Months or Most Recently Relevant to Health Maintenance Results * COMPREHENSIVE METABOLIC PANEL (03/08/2019 11:26 AM CDT) [facility] Glucose 94 65 - 99 mg/dL [facility] Comment: ? Fasting reference interval BUN 12 7 - 25 mg/dL [facility] Creatinine 0.83 0.50 - 1.10 mg/dL [facility] eGFR by MDRD 83 > OR = 60 mL/min/1. 73m2 [facility] eGFR by MDRD 97 > OR = 60 mL/min/1. 73m2 [facility] BUN/Creatinine Ratio NOT APPLICABLE 6 - 22 (calc) [facility] Sodium 141 135 - 146 mmol/L [facility] Potassium 4.3 3.5 - 5.3 mmol/L [facility] Chloride 107 98 - 110 mmol/L [facility] CO2 26 20 - 32 mmol/L [facility] Calcium 9.0 8.6 - 10.2 mg/dL [facility] Protein Total 6.7 6.1 - 8.1 g/dL [facility] Albumin 4.2 3.6 - 5.1 g/dL [facility] Globulin Total 2.5 1.9 - 3.7 g/dL (calc) [facility] Albumin/Globuli n Ratio 1.7 1.0 - 2.5 (calc) [facility] Bilirubin Total 1.2 0.2 - 1.2 mg/dL [facility] Alkaline Phosphatase 81 33 - 115 U/L [facility] AST 21 10 - 35 U/L [facility] ALT 21 6 - 29 U/L [facility] Comment: Test Performed at: [facility] [id number] [place], [place] ??[id number] TANIA PATEL DO,MPH Blood BLOOD SPECIMEN / Unknown 03/08/2019 11:26 AM CDT 03/08/2019 11:[address] [place] DUCT LAYER HELPER-SENIOR UI UX DEVELOPER [facility] - JOSHUA BUNNY ORDERABLES [facility] [address] [place] [address] * (ABNORMAL) LIPID PROFILE (LIPID PANEL) (03/08/2019 11:26 AM CDT) Cholesterol 193 <200 mg/dL [facility] HDL Cholesterol 60 >50 mg/dL [facility] Triglycerides 114 <150 mg/dL [facility] LDL Calculated 111(H) mg/dL (calc) [facility] Comment: Reference range: <100 Desirable range <100 mg/dL for primary prevention; ?? <70 mg/dL for patients with CHD or diabetic patients with > or = 2 CHD risk factors. LDL-C is now calculated using the Hayden-Torres calculation, which is a validated novel method providing better accuracy than the Friedewald equation in the estimation of LDL-C. Hayden SS et al. UYEN. 2013;310(19): 7445-4628 (http://education.[employer]/faq/PDD249) CHOL/HDLC RATIO 3.2 <5.0 (calc) [facility] Non HDL Cholesterol 133(H) <130 mg/dL (calc) [facility] Comment: For patients with diabetes plus 1 major ASCVD risk factor, treating to a non-HDL-C goal of <100 mg/dL (LDL-C of <70 mg/dL) is considered a therapeutic option. Test Performed at: [facility] [address] [place], [place] ??[phone] TANIA PATEL DO,MPH Blood BLOOD SPECIMEN / Unknown 03/08/2019 11:26 AM CDT 03/08/2019 11:[address] DUCT LAYER HELPER-SENIOR UI UX DEVELOPER [facility] - JOSHUA BUNNY ORDERABLES [facility] [id number] [place] [address] from Last 3 Months or Most Recently Relevant to Health Maintenance Advance Directives Documents on File Type Date Recorded Patient Roller Embosser Expl anation Adv Directive/Living Will/POA 01/19/2011 10:53 AM * Full Code (Latest Code Status on File) Date Activated Date Inactivated Comments 12/27/2014 5:54 PM 12/29/2014 1:07 PM * Full Code Date Activated Date Inactivated Comments 01/17/2011 8:46 PM 01/19/2011 4:15 AM Care Teams Manager Pe Relationship Specialty [place] [address] [address] [place] [address] PCP - General 01/08/24 Kelly Roberts, CHEY Internet Sales Associate 12/28/14
--- OUTSIDE RECORDS SUMMARY | 2024-11-15 03:18 | XMS_ITS | Encounter Summary ---
Author Organization [facility] Health Address [address] [place] [address] Care Team Providers Care Oil Pipe Inspector Helper Name Role Phone Kelly Roberts RN Unavailable [phone] Reason for Visit * Reason Onset Date Comments Appointment 11/21/2021 Encounter Details Date Type Department Care Team (Late st Contact Info) Description 11/21/2021 Telephone [facility] [id number] [place] [address], [facility] [address] [place] [address] Aimee Peters Appointment Social History Tobacco Use Types Packs/Day Years Used Date Smoking Tobacco: Never Smokeless Tobacco: Never Alcohol Use Standard Drinks/Week Comments Yes 0 (1 standard drink = 0.6 oz pur e alcohol) social Sex and Gender Information Value Date Recorded Sex Assigned at Not on file Gender Identity Not on file Sexual Orientation Not on file documented as of this encounter Functional Status Functional Status Response Date of Assess ment Is person deaf or have serious hearing difficult y? No 12/29/2014 Is person blind or have serious difficulty seein g? No 12/29/2014 Does person have serious dif ficulty walking/climbing stairs? No 12/29/2014 Does person have difficulty dressing/bathing? No 12/29/2014 Does person have difficulty doing errands alone? No 12/29/2014 Cognitive Status Response Date of Assessm ent Does person have difficulty concentrating/remembering/making decisions? No 12/29/2014 documented as of this encounter Miscellaneous Notes * Telephone Encounter - Aimee Peters - 11/21/2021 10:38 AM CST Left voicemail about in person change dues to cease of public health emergency order. Informed pt that video visits will no longer be offered across state lines and that I have changed her appt to inperson. Y FEEDER documented in this encounter Plan of Treatment Not on file documented as of this encounter Visit Diagnoses Not on filedocumented in this encounter Care Teams Oil Pipe Inspector Helper Relationship Specialty Start Date End Date Kelly Roberts, RN Communications And Signals Supervisor 12/28/14 documented as of this encounter
--- OUTSIDE RECORDS SUMMARY | 2024-11-15 03:18 | XMS_ITS | Encounter Summary ---
Author Organization [facility] Health Address [address] [place] [address] Care Team Providers Care Admissions Rn Name Role Phone Kelly Roberts RN Unavailable [phone] Reason for Visit * Reason Onset Date Comments Appointment 10/24/2021 Encounter Details Date Type Department Care Team (Late st Contact Info) Description 10/24/2021 Telephone [facility] [id number] [address] [place] [address] [address] Appointment Social History Tobacco Use Types Packs/Day Years Used Date Smoking Tobacco: Never Smokeless Tobacco: Never Alcohol Use Standard Drinks/Week Comments Yes 0 (1 standard drink = 0.6 oz pur e alcohol) social Sex and Gender Information Value Date Recorded Sex Assigned at Not on file Gender Identity Not on file Sexual Orientation 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 Unable to assess 10/10/2021 9:29 AM FLOWER STRIPPER documented as of this encounter Functional Status [...] No 12/29/2014 documented as of this encounter Plan of Treatment Not on file documented as of this encounter Visit Diagnoses Not on filedocumented in this encounter Care Teams Admissions Rn Relationship Specialty Start Date End Date Kelly Roberts RN Goldbeater 12/28/14 documented as of this encounter
--- OUTSIDE RECORDS SUMMARY | 2024-11-15 03:18 | XMS_ITS | Encounter Summary ---
Author Organization [facility] Health Address [address] [facility] [place] [address] Care Team Providers Care Air Drier Name Role Phone Kelly Roberts RN Unavailable [phone] Reason for Visit * Reason Comments Refill Request Encounter Details Date Type Department Care Team (Late st Contact Info) Description 06/22/2021 Refill [facility] [id number] [address] [place] [id number] [address] Refill Request Social History Tobacco Use Types Packs/Day Years [...] on filedocumented in this encounter Care Teams Air Drier Relationship Specialty Start Date End Date Kelly Roberts RN Formulation Scientist 12/28/14 documented as of this encounter
--- OUTSIDE RECORDS SUMMARY | 2024-11-15 03:18 | XMS_ITS | Encounter Summary ---
Author Organization [facility] Health Address [address] [facility] [place] [address] Care Team Providers Care Director Of Dance Name Role Phone Kelly Roberts RN Unavailable [phone] Reason for Visit * Reason Comments Refill Request Encounter Details Date Type Department Care Team (Late st Contact Info) Description 10/24/2021 Refill [facility] [id number] [address] [place] [id number] [address] Refill Request Social History Tobacco [...] COVID-19? Unable to assess 10/10/2021 9:29 AM SENIOR GRANT WRITER documented as of this encounter Functional Status [...] on filedocumented in this encounter Care Teams Director Of Dance Relationship Specialty Start Date End Date Kelly Roberts RN Carpet Winder 12/28/14 documented as of this encounter
--- OUTSIDE RECORDS SUMMARY | 2024-11-15 03:18 | XMS_ITS | Encounter Summary ---
Author Organization [facility] Health Address [address] [facility] [place] [address] Care Team Providers Care Oak Tanner Name Role Phone Kelly Roberts RN Unavailable [phone] Reason for Visit * Reason Comments Follow-up f/u phentermine Encounter Details Date Type Department Care Team (Late st Contact Info) Description 06/17/2019 10:45 AM CDT Office Visit [facility] [id number] [address] [address] [place], PHOTOGRAPHIC INTELLIGENCE OFFICER-[facility] [address] [address] Bariatric surgery status (Primary Dx); Weight gain Social History Tobacco Use Types Packs/Day Years Used Date Smoking Tobacco: Never Smokeless Tobacco: Never Alcohol Use Standard Drinks/Week Comments Yes 0 (1 standard drink = 0.6 oz pur e alcohol) social Sex and Gender Information Value Date Recorded Sex Assigned at Not on file Gender Identity Not on file Sexual Orientation Not on file documented as of this encounter Last Filed Vital Signs Vital Sign Reading Time Taken Comments Blood Pressure 122/82 06/17/2019 10:55 AM CDT Pulse 89 06/17/2019 10:55 AM CDT Temperature - - Respiratory Rate - - Oxygen Saturation - - Inhaled Oxygen Concentration - - Weight 99.1 kg (218 lb 8 oz) 06/17/2019 10:55 AM CDT Height 185.4 cm (6' 1 ) 06/17/2019 10:55 AM CDT Body Mass Index 28.83 06/17/2019 10:55 AM CDT documented in this encounter Functional Status Functional Status Response [...] No 12/29/2014 documented as of this encounter Progress Notes * Tobias Ct Trini, PHOTOGRAPHIC INTELLIGENCE OFFICER-INSURANCE SALESMAN - 06/17/2019 11:05 AM CDT Bariatric Surgery Clinic Note Finesse Ramirez CC: Weigh Gain Previous Procedure: Laparoscopic sleeve gastrectomy Laparoscopic Cholecystectomy Intraoperative esophagogastroduodenscopy??(Herring) Date of Procedure: 12/27/2014 04/06/2018 Initial Weight: 275 Todays Weight: 218 Weight Lost: 57 Subjective: Here for Phentermine Follow Up She is down 4 lbs since 04/2019 for a total of 15 lbs since 03/2019 She reports that she did struggle a little this month as she had family in town for 1 month visiting and they did eat out a lot. She was mindful about food choices most of the time. She also forgot to take the phentermine for a few days. 35-40 oz coffee per day, uses 1% milk as her creamer Drinks Diet green tea Not drinking with meals Nausea related to dizziness-ear crystals and is seeing an ENT for this Abdominal pain-driving, laying on couch, laying in bed watching TV. She discussed diagnostic lap with Dr. cabezas if continues. She is not interested in surgery yet. Discussed scar tissue as a possibility for intermittent abdominal pain. She is struggling with hunger in the evening and wants to snack more Topamax-does not qualify for Phentermine due to current BMI. Discussed Topamax and side effects of the medication. ROS: HEENT: dizziness Cardiovascular: Normal Respiratory: Normal Gastrointestinal: Upper abdominal pain Genitourinary: Normal Musculoskeletal: Normal Skin / Breast / Axillae: Normal Endocrine: Normal Allergic / Immuno: Normal Neuro / Psych: Normal Data Vitals: 06/17/19 1055 BP: 122/82 Pulse: 89 Weight: 218 lb 8 oz (99.1 kg) Height: 6' 1 (1.854 m) Current Outpatient Prescriptions Medication ??? albuterol HFA (PROVENTIL;VENTOLIN;PROAIR) 108 (90 BASE) MCG/ACT inhaler ??? buPROPion SR 12hr (WELLBUTRIN-SR) 150 MG tablet ??? buPROPion XL 24hr (WELLBUTRIN-XL) 150 MG tablet ??? carisoprodol (SOMA) 350 MG tablet ??? hydrocortisone (HYTONE) 2.5 % ointment ??? hydrocortisone butyrate 0.1 % cream - ketoconazole 2% cream 50:50 CREA ??? omeprazole (PRILOSEC) 20 MG capsule ??? omeprazole (PRILOSEC) 20 MG capsule ??? oxyCODONE (ROXICODONE) 5 MG/5ML oral solution ??? phentermine (ADIPEX-P) 37.5 MG tablet ??? sucralfate (CARAFATE) 1 GM/10ML suspension ??? sucralfate (CARAFATE) 1 GM/10ML suspension ??? vortioxetine (TRINTELLIX) 10 MG tablet No current facility-administered medications for this visit. Past Medical History: Diagnosis Date ??? Arthritis ??? Asthma ??? Chest pain cath 06/2013 pt states ok ??? DJD (degenerative joint disease) ??? Elevated cholesterol not on Rx ??? Fatty liver disease, nonalcoholic ??? History of gastric ulcer ??? Hypertension resolved with gastric sleeve 2014 ??? Migraine ??? Motion sickness ??? PCOS (polycystic ovarian syndrome) ??? Pure hypercholesterolemia Physical Exam General appearance: alert, cooperative, no distress Heart: regular rhythm, normal S1 and S2, without murmurs, rubs or gallops Lungs: breath sounds normal and symmetric; no rales or wheezes Abdomen: soft without mass, non-tender, with normal bowel sounds x all 4 quads Extremities: no clubbing, cyanosis or edema Assessment/Plan: Pt s/p Laparoscopic sleeve gastrectomy Laparoscopic Cholecystectomy Intraoperative esophagogastroduodenscopy Weight gain: Discussed adding in more exercise and meal prepping now that visitors have left. Discussed a food journal and higher protein and lower carb diet. BMI too low today to continue Phentermine. Will trial Topamax starting at 25 mg nightly for 2 weeks and then to increase to 50 mg nightly for 2 weeks. Side effects discussed. Patient to follow up in [address] Herring for continued medication usage for continued weight loss. Patient encouraged to call with any concerns. HIPOLITO Romero documented in this encounter Plan of Treatment Not on file documented as of this encounter Visit Diagnoses Diagnosis Bariatric surgery status- Primary Weight gain Abnormal weight gain documented in this encounter Care Teams Oak Tanner Relationship Specialty Start Date End Date Kelly Roberts, RN Flying I Instructor 12/28/14 documented as of this encounter
--- OUTSIDE RECORDS SUMMARY | 2024-11-15 03:18 | XMS_ITS | Encounter Summary ---
Author Organization [facility] Address [address] [place] [address] Care Team Providers Care Plastic Extrusion Operator Name Role Phone Kelly Roberts RN Unavailable Reason for Visit * Reason Comments Constipation Diarrhea Encounter Details Date Type Department Care Team (Late st Contact Info) Description 08/28/2021 1:00 PM CDT Office Visit [facility] [address], [address] [id number] Maryjo Blake MD [facility] [address] [facility] [address] [place] [id number] Altered bowel habits (Primary Dx); Irritable bowel syndrome, unspecified type; Gastroesophageal reflux disease without esophagitis; Fatty liver disease, nonalcoholic Social History Tobacco Use Types Packs/Day Years [...] have Coronavirus / COVID-19? Unable to assess 08/03/2021 10:31 AM CDT documented as of this encounter Last Filed Vital Signs Vital Sign Reading Time Taken Comments Blood Pressure 130/78 08/28/2021 1:24 PM CDT Pulse 81 08/28/2021 1:24 PM CDT Temperature - - Respiratory Rate - - Oxygen Saturation 98% 08/28/2021 1:24 PM CDT Inhaled Oxygen Concentration - - Weight 88.9 kg (196 lb) 08/28/2021 1:24 PM CDT Height - - Body Mass Index 26.58 08/08/2021 11:54 AM CDT documented in this encounter Functional [...] No 12/29/2014 documented as of this encounter Patient Instructions * Patient Instructions* Harini Carey RN - 08/28/2021 1:58 PM CDT SEND US A [employer] MESSAGE IN 4 WEEKS WITH AN UPDATE. CALL [phone] TO SCHEDULE RUQ US WITH ELASTOGRAPHY documented in this encounter Progress Notes * Maryjo Blake MD - 08/28/2021 1:14 PM CDT Office Consult Note DEMOGRAPHICS: Patient: Finesse Ramirez : 1970 Referring Physician: No primary care provider on file. Reason for consultation: Changes in bowel habits and fatty liver disease Chief complaint: Changes in bowel habit Fatty liver disease HISTORY OF PRESENT ILLNESS: Finesse Ramirez is a most pleasant 51 year old female with a history of acid reflux disease, gastricsleeve in 2015, cholecystectomy in 2018, gastric ulcer, and fatty liver disease, obesity who follows with weight management, now presents with changes in bowel habits. Patient reports a history of constipation since she was 19. She had a gallbladder removed and she did well a year after that. However the past 2 years she has noted having liquid bowel movements. Shereports going several days without a bowel movement followed by liquid stool that is sometimes gelatinous, and yellow. She denies noticing fat in her stool. She also endorses abdominal discomfort andbloating. At times she has noticed increased urgency followed by left a liquid bowel movement. She reports symptoms are worse with dairy products, castro, fast foods. She denies any blood in her stoolshe denies black stool. She is currently on saxenda but had been off of it for over 9 months and dosymptoms persisted. She had a colonoscopy in March 2021 that showed a few diverticula in the sigmoid colon, internal hemorrhoids otherwise normal. She states that her mother has a history of collagenous colitis but she denies a family history of IBD or colon cancer. Patient does endorse [facility]. Regarding her fatty liver disease her LFTs is normal. Right upper quadrant ultrasound in 2018 showed fatty liver disease. Since then she has lost. Her LDL is 104, total cholesterol 171, over a year ago and her A1c was 5.2 to years ago. She reports occasional alcohol use on the weekends. Her weight pre surgery was 230 lbs she is now at 196 lb. In regard to her acid reflux, she states she was told she has a hiatal hernia. States her symptoms are worse when she eats pasta with pasta sauce, or acidic foods. She states lying on her left side helps her symptoms. She takes omeprazole but not all the time. Her symptoms currently feels controlled. Associated symptoms: Abdominal pain: Yes GI Bleeding (Melena, Hematochezia, Hematemesis, coffee ground emesis): reports none Change in bowel frequency or caliber: reports none Nausea or vomiting: reports none Bloating, early satiety, postprandial fullness: Bloating Odynophagia, dysphagia, acid reflux:reports none Constipation: Previous Diarrhea: Yes Fecal incontinence: reports none Rectal pain: reports none Fevers:reports none Weight loss or night sweats: Intentional weight loss Chest pain, shortness of breath, orthopnea, exertional dyspnea: reports none Confusion, forgetfulness, day/night reversal: reports none Prior endoscopic procedures: Previous colonoscopies: March 2021 Findings: The perianal and digital rectal examinations were normal. The cecum appeared normal. The colon (entire examined portion) appeared normal over. No polyps and no mass lesions noted A few small-mouthed diverticula were found in the distal sigmoid colon. Internal hemorrhoids were found during retroflexion. The hemorrhoids were small. Previous endoscopies: reports none PAST HISTORY: Reviewed and notable as below: Medical and surgical history : Previous medical and surgical history was reviewed and is notable as documented below and in the HPI Anemia and/or Iron Deficiency: reports none Recent hospitalization: reports none Past Medical History: Diagnosis Date ??? Arthritis ??? Asthma ??? Chest pain cath 06/2013 pt states ok ??? DJD (degenerative joint disease) ??? Elevated cholesterol not on Rx ??? Fatty liver disease, nonalcoholic ??? History of gastric ulcer ??? Hypertension resolved with gastric sleeve 2014 ??? Migraine ??? Motion sickness ??? PCOS (polycystic ovarian syndrome) ??? Pure hypercholesterolemia Past Surgical History: Procedure Laterality Date ??? ACL RECONSTRUCTION 2008 Right ??? CARPAL TUNNEL SURGERY 1992 Bilateral ??? Cholecystectomy, Laparoscopic 04/06/2018 WITH UPPER ENDO ??? Cholecystectomy, Laparoscopic 04/06/2018 LAPAROSCOPIC CHOLECYSTECTOMY UPPER ENDOSCOPY ??? Gastrectomy 12/27/2014 LAPAROSCOPIC VERTICAL SLEEVE GASTRECTOMY ??? Hammer Toe Repair 2000 Left foot w/ bunionectomy ??? LUMBAR SPINE FUSION 01/17/2011 TLIF L5-S1 MINIMALLY INVASIVE ??? OTHER SURGERY 2005 6 EYE SURGERIES ??? OTHER SURGERY 2008 Left ANKLE reconstruction ??? OTHER SURGERY mortons neuroma removed right and left foot ??? Rotator Cuff Repair 2008 LEFT ??? Rotator Cuff Repair Left 2017 Family history: The patient's family history was reviewed and is notable as documented below Family history of GI malignancy: reports none Family history of colon polyps: reports none Family history of extracolonic Cervantes-associated cancers (Endometrial, Ovarian, Gastric, Small Bowel, Pancreas, Hepatobiliary, Urologic): reports none Family History Problem Relation Name Age of Onset ??? Arthritis - Rheumatoid Mother ??? Hypertension Mother ??? Migraine Mother ??? Arthritis - Osteo Mother ??? Arthritis - Rheumatoid Father ??? CAD (Coronary Artery Disease) Father ??? Hypercholesterolemia Father ??? Migraine Father ??? Arthritis - Osteo Father ??? Asthma Brother ??? Arthritis - Rheumatoid Maternal Grandmother ??? Cancer Maternal Grandmother ??? Hypertension Maternal Grandmother ??? Arthritis - Osteo Maternal Grandmother ??? CAD (Coronary Artery Disease) Maternal Grandfather ??? Arthritis - Rheumatoid Maternal Grandfather ??? Cancer Maternal Grandfather ??? Heart Failure Maternal Grandfather ??? Hypercholesterolemia Maternal Grandfather ??? Hypertension Maternal Grandfather ??? Arthritis - Osteo Maternal Grandfather ??? 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 Marital status: Spouse name: Not on file ??? Number of children: Not on file ??? Years of education: Not on file ??? Highest education level: Not on file Occupational History ??? 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 Smoking status: Never Smoker ??? Smokeless tobacco: Never Used Substance and Sexual Activity ??? Alcohol use: Yes Comment: social ??? Drug use: No ??? Sexual activity: Not on file Other Topics Concern ??? Not on file Social History Narrative ??? Not on file Social Determinants of Health Financial Resource Strain: ??? Difficulty of Paying Living Expenses: Not on file Food Insecurity: ??? Worried About Running Out of Food in the Last Year: Not on file ??? Ran Out of Food in the Last Year: Not on file Transportation Needs: ??? Lack of Transportation (Medical): Not on file ??? Lack of Transportation (Non-Medical): Not on file Physical Activity: ??? Days of Exercise per Week: Not on file ??? Minutes of Exercise per Session: Not on file Stress: ??? Feeling of Stress : Not on file Social Connections: ??? Frequency of Communication with Friends and Family: Not on file ??? Frequency of Social Gatherings with Friends and Family: Not on file ??? Attends Sikhism Services: Not on file ??? Active Member of Clubs or Organizations: Not on file ??? Attends Club or Organization Meetings: Not on file ??? Marital Status: Not on file Intimate Partner Violence: ??? Fear of Current or Ex-Partner: Not on file ??? Emotionally Abused: Not on file ??? Physically Abused: Not on file ??? Sexually Abused: Not on file Housing Stability: ??? Unable to Pay for Housing in the Last Year: Not on file ??? Number of Places Lived in the Last Year: Not on file ??? Unstable Housing in the Last Year: Not on file ALLERGIES: Allergies Allergen Reactions ??? Morphine Nausea and/or Vomiting Can take derivatives ??? Erythromycin Rash ??? Hydrocodone Nausea and/or Vomiting ??? Neurontin [Gabapentin] Other Restless MEDICATIONS: The patient's medications were reviewed at the visit today and are notable as documented below Medications: NSAIDs, opioids, antibiotics, anticoagulant, antiplatelet/aspirin: Reports none Current Outpatient Medications Medication Sig ??? albuterol HFA (PROVENTIL;VENTOLIN;PROAIR) 108 (90 BASE) MCG/ACT inhaler 4 times daily as needed ??? buPROPion SR 12hr (WELLBUTRIN-SR) 100 MG tablet Take 100 mg by mouth 2 times daily ??? buPROPion SR 12hr (WELLBUTRIN-SR) 150 MG tablet Take 150 mg by mouth once daily. ??? buPROPion XL 24hr (WELLBUTRIN-XL) 150 MG tablet ??? busPIRone (BUSPAR) 5 MG tablet ??? carisoprodol (SOMA) 350 MG tablet Take 1 Tab by mouth 3 times daily as needed. ??? ENGERIX-B 20 MCG/ML injection ADM 1ML IM UTD ??? HAVRIX 1440 EL U/ML injection ADM 1ML IM UTD ??? hydrocortisone (HYTONE) 2.5 % ointment Apply to affected area 4 times daily ??? hydrocortisone butyrate 0.1 % cream - ketoconazole 2% cream 50:50 CREA Apply to affected area 2times daily as needed. ??? insulin pen needle (NOVOFINE) 32G X 6 MM MISC 100 (one hundred) Each by Injection route once daily ??? Liraglutide -Weight Management (SAXENDA) 18 MG/3ML Inject 3 mg subcutaneously once daily ??? methylphenidate CR (CONCERTA) 18 MG tablet Take 18 mg by mouth once daily ??? omeprazole (PRILOSEC) 20 MG capsule Take 1 capsule by mouth once daily ??? omeprazole (PRILOSEC) 20 MG capsule TAKE 1 CAPSULE BY MOUTH 2 TIMES DAILY,BEFORE BREAKFAST AND SUPPER ??? oxyCODONE (ROXICODONE) 5 MG/5ML oral solution Take 10 mL by mouth every 4 hours as needed for Pain ??? oxyCODONE-acetaminophen (PERCOCET) 5-325 MG tablet TK 1 T PO Q 8 H PRN ??? sucralfate (CARAFATE) 1 GM tablet Take 1 tablet by mouth 4 times daily ??? sucralfate (CARAFATE) 1 GM/10ML suspension Take 10 mL by mouth once daily ??? topiramate (TOPAMAX) 25 MG tablet Take 1 tablet by mouth at bedtime ??? vortioxetine (TRINTELLIX) 10 MG tablet Take 10 mg by mouth once daily No current facility-administered medications for this visit. REVIEW OF SYSTEMS: A complete (comprehensive) review of systems was performed and the pertinent negatives and positives are noted in the HPI. All other systems reviewed are negative. PHYSICAL EXAM: There were no vitals taken for this visit. Constitutional: In no apparent distress, well appearing Eye: No conjunctival pallor; no icterus, pupils normal size Ears, nose, mouth throat (ENMT): nose midline; moist mucous membranes; oropharynx clear without ulcers or thrush Cardiovascular: regular rate and rhythm; pulse nl, no peripheral edema; Respiratory: Breathing comfortably on room air; no wheezes, rhonchi or rales Gastrointestinal: No visible scars. Soft, nontender and nondistended abdomen without hepatosplenomegaly, hernias or masses. No evidence of ascites, bruits, or caput medusa. Rectal: deferred Musculoskeletal: No loss of proximal muscle mass or temporal wasting, no joint deformities. No evidence of Dupuytren???s contracture; no clubbing or cyanosis of the hands; normal range of motion in the upper and lower extremities Skin: No spider angiomata, palmar erythema, leukonychia, or ecchymoses Neurological: Alert and oriented; appropriately responsive to questions; no fine tremor, psychomotor agitation, or transient hallucinations or illusions on exam; no asterixis; gait normal; Psychiatric: Normal affect, judgement and memory LABS & IMAGING: Reviewed and notable as documented in the HPI and as below Recent Labs Component Name 03/08/19 1126 12/29/14 0409 12/28/14 0226 12/14/14 0850 SODIUM 141 136 135* 138 POTASSIUM 4.3 3.7 3.6 3.9 CHLORIDE 107 105 102 105 CO2 26 27 27 26 BUN 12 12 11 15 CREATININE 0.83 0.89 1.12 0.75 GLUCOSE 94 83 134* 95 Recent Labs Component Name 03/08/19 1126 12/29/14 0409 12/28/14 0226 12/14/14 0850 WBC 7.9 9.1 10.9* 8.5 HGB 13.2 11.1* 13.0 12.7 PLTCOUNT 282 186 243 264 MCV 91.0 91.2 90.5 90.2 Recent Labs Component Name 03/08/19 1126 12/14/14 0850 ALBUMIN 4.2 3.8 ALKPHOS 81 119 TBIL 1.2 0.4 AST 21 21 ALT 21 38 No results for input(s): AMYLASE, LIPASE, FERRITIN, IRON in the last 37083 hours. Invalid input(s): SATURATION US 2019: Ultrasound shows increased echotexture to the liver consistent with fatty infiltration. There is no intrahepatic duct dilation. The pancreas is unremarkable. The gallbladder is absent. The common bile duct measures 0.55 cm. ASSESSMENT: Finesse Ramirez is a most pleasant 51 year old female with a history of a gastric sleeve in 2015, cholecystectomy in 2018, gastric ulcer, GERD, and fatty liver disease, obesity on saxenda who follows with weight management whom I am seeing today for changes in bowel habits x 2 years and fatty liver disease. Patient reports a prior history of constipation but have recently been experiencing bloating, abdominal pain and loose mucousy stool. She has no alarm symptoms and had a recent colonoscopy that was unrevealing. She is currently on saxenda but states her symptoms predated this medication. I suspect her symptoms is likely related to IBS with a recent exacerbation in the setting of significant life stressors. However other possible etiologies include SIBO versus celiac disease. PLAN: # loose stools, bloating, abdominal discomfort: Differential diagnosis as discussed above. I suspect her symptoms could be secondary to irritable bowel syndrome though patient reports sx persist despite avoiding certain foods. SIBO versus celiac disease also in the differential. - will plan for rifaximin times 14 days for treatment of SIBO and reassess for symptom improvement. - will send celiac serologies and thyroid studies. - patient is to keep a food diary to determine any associated foods precipitating her symptoms. - will plan for follow-up phone call in 4 weeks to see if there is any improvement in her symptoms.She is to follow up in clinic in 8 weeks. # fatty liver disease: Ultrasound in 2018 showed fatty liver disease per patient she had previouslyhad abnormal LFTs. LFTs November 2020 was normal. I suspect in the setting of significant weight loss her fatty liver disease may be improved. -will plan for ultrasound with elastography to assess for fatty liver disease. # GERD: - continue with omeprazole 20 mg daily - she reports Carafate helps her symptoms patient to continue that as well - discussed lifestyle and dietary modifications # routine CRC screening: - normal colonoscopy March 2021. Repeat in 10 years I have discussed the above recommendations and their risks, benefits, and alternatives, with the patient and any family present, and all agreed with the plan. All questions were answered. Maryjo Blake MD documented in this encounter Miscellaneous Notes * Addendum Note - Frieda Pinto - 09/14/2021 9:41 AM CDTAddended by: FRIEDA PINTO on: 09/14/2021 09:41 AM Modules accepted: Level of Service documented in this encounter Plan of Treatment Scheduled Orders Name Type Priority Associated Diagnoses Orde r Schedule TISSUE TRANSGLUTAMINASE AB IGA Lab Routine Irritable bowel syndrome, unspecified type Ordered: 08/28/2021 IMMUNOGLOBULINS IGG/IGM/IGA PANEL Lab Routine Irritable bowel syndrome, unspecified type Ordered: 08/28/2021 TSH REFLEX FREE T4 Lab Routine Irritable bowel syndrome, unspecified type Ordered: 08/28/2021 documented as of this encounter Visit Diagnoses Diagnosis Altered bowel habits- Primary Other symptoms involving digestive system Irritable bowel syndrome, unspecified type Gastroesophageal reflux disease without esophagitis Esophageal reflux Fatty liver disease, nonalcoholic Other chronic nonalcoholic liver disease documented in this encounter Care Teams Plastic Extrusion Operator Relationship Specialty Start Date End Date Kelly Roberts, RN Ops Manager 12/28/14 documented as of this encounter
--- OUTSIDE RECORDS SUMMARY | 2024-11-15 03:18 | XMS_ITS | Patient Health Summary ---
Author Organization [facility] Address [address] [place] [address] Care Team Providers Care Engine Turner Name Role Phone Kelly Roberts RN Unavailable [phone] Iwona Lorenz MD Primary Care Provider [phone] Note from [facility],non-owned Affiliates and Associated Physician Practices is amultiple site organization consisting of ambulatory clinics and hospital sitesin [place], [place], [place] and [place]. This disclosure is being madepursuant to the Care Everywhere program and may not contain all information available regarding this patient. Last updated 18.[facility] Allergies * Erythromycin(Rash) -Medium Criticality * Hydrocodone(Nausea and/or Vomiting) * Morphine(Nausea and/or Vomiting) -High Criticality * Gabapentin(Other) Medications * Be aware that medications may not be up to date on this document. Alwaysverify current medications with the patient. * buPROPion SR 12hr (WELLBUTRIN-SR) 150 MG tablet Take 150 mg by mouth once daily. * carisoprodol (SOMA) 350 MG tablet(Started 12/29/2014) Take 1 Tab by mouth 3 times daily as needed. * vortioxetine (TRINTELLIX) 10 MG tablet Take 10 mg by mouth once daily * albuterol HFA (PROVENTIL;VENTOLIN;PROAIR) 108 (90 BASE) MCG/ACT inhaler (Started 12/08/2017) 4 times daily as needed * oxyCODONE (ROXICODONE) 5 MG/5ML oral solution(Started 04/06/2018) Take 10 mL by mouth every 4 hours as needed for Pain * omeprazole (PRILOSEC) 20 MG capsule(Started 06/26/2018) TAKE 1 CAPSULE BY MOUTH 2 TIMES DAILY,BEFORE BREAKFAST AND SUPPER 5 refills remaining * buPROPion XL 24hr (WELLBUTRIN-XL) 150 MG tablet(Started 04/20/2019) * sucralfate (CARAFATE) 1 GM tablet(Started 08/17/2019) Take 1 tablet by mouth 4 times daily * buPROPion SR 12hr (WELLBUTRIN-SR) 100 MG tablet(Started 08/16/2019) Take 100 mg by mouth 2 times daily * methylphenidate CR (CONCERTA) 18 MG tablet(Started 09/13/2019) Take 18 mg by mouth once daily * sucralfate (CARAFATE) 1 GM/10ML suspension(Started 10/27/2019) Take 10 mL by mouth once daily 5 refills by 10/26/2020 * busPIRone (BUSPAR) 5 MG tablet(Started 08/08/2020) * sucralfate (CARAFATE) 1 GM/10ML suspension(Started 08/28/2021) Take 10 mL by mouth 4 times daily 11 refills by 08/28/2022 * omeprazole (PRILOSEC) 20 MG capsule(Started 08/28/2021) Take 1 (one) capsule by mouth once daily 11 refills by 08/28/2022 * Liraglutide -Weight Management (SAXENDA) 18 MG/3ML(Started 10/26/2021) Inject 3 mg subcutaneously once daily 2 refills by 10/26/2022 * Insulin Pen Needle (BD PEN NEEDLE ESTEFANIA U/F) 32G X 4 MM MISC(Started 10/26/2021) Inject 1 syringe subcutaneously once daily 1 refill by 10/26/2022 Active Problems Problem Noted Date Diagnosed Date History of sleeve gastrectomy 08/15/2021 Itching 11/22/2020 History of obesity in adulthood 11/02/2019 Overweight (BMI 25.0-29.9) 11/02/2019 Attention deficit hyperactivity disorder (ADHD) 10/27/2017 Recurrent major depressive disorder, in full rem ission 10/27/2017 Tachycardia 12/28/2014 Morbid obesity 08/18/2014 Asthma 06/28/2014 Osteoarthritis of cervical spine 10/08/2011 Lumbar back pain 01/27/2011 History of gastric ulcer DJD (degenerative joint disease) Fatty liver disease, nonalcoholic Elevated cholesterol Hypertension Arthritis Resolved Problems Problem Noted Date Diagnosed Date Resolved Date Morbid obesity 12/28/2014 06/14/2020 Social History Tobacco Use Types Packs/Day Years [...] Comments Blood Pressure 122/80 01/14/2022 9:35 AM MOVEMENT THERAPIST Pulse 79 01/14/2022 9:35 AM MOVEMENT THERAPIST Temperature 36.4 ??C (97.6 ??F) 01/14/2022 9:35 AM CS T Respiratory Rate 20 08/08/2021 11:54 AM CDT Oxygen Saturation 98% 08/28/2021 1:24 PM CDT Inhaled Oxygen Concentration - - Weight 94.4 kg (208 lb 3.2 oz) 01/14/2022 9:35 A M MOVEMENT THERAPIST Height 182.9 cm (6') 01/14/2022 9:35 AM MOVEMENT THERAPIST Body Mass Index 28.24 01/14/2022 9:35 AM MOVEMENT THERAPIST Procedures * AK [facility] MOHS MG TQ H/N/H/F/G 1ST STAG 5 BLOC(Performed 08/29/2021) Performed for Basal cell carcinoma (BCC) of left side of neck * AK [facility]MS[facility] MOHS MG TQ H/N/H/F/G EA ADDL STAG(Performed 08/29/2021) Performed for Basal cell carcinoma (BCC) of left side of neck * AK REPR CMPL WND HEAD,FAC,HAND 2.6-7.5(Performed 08/29/2021) Performed for Basal cell carcinoma (BCC) of left side of neck * DERMATOPATHOLOGY(Performed 08/08/2021) * CT ABDOMEN PELVIS W CONTRAST(Performed 04/09/2019) Performed for Abdominal pain, LUQ (left upper quadrant), Abdominal pain, RUQ (right upper quadrant) * US ABDOMEN LIMITED(Performed 03/10/2019) Performed for Abdominal pain, LUQ (left upper quadrant), Abdominal pain, RUQ (right upper quadrant), Nausea, Right upper quadrant abdominal pain, Heartburn * LIPID PROFILE(Performed 03/08/2019) Performed for Abdominal pain, LUQ (left upper quadrant), Abdominal pain, RUQ (right upper quadrant), Nausea * HEMOGLOBIN A1C(Performed 03/08/2019) Performed for Abdominal pain, LUQ (left upper quadrant), Abdominal pain, RUQ (right upper quadrant), Nausea * VITAMIN D 25-HYDROXY(Performed 03/08/2019) Performed for Abdominal pain, LUQ (left upper quadrant), Abdominal pain, RUQ (right upper quadrant), Nausea * COMPREHENSIVE METABOLIC PANEL(Performed 03/08/2019) Performed for Abdominal pain, LUQ (left upper quadrant), Abdominal pain, RUQ (right upper quadrant), Nausea * CBC W/O DIFFERENTIAL(Performed 03/08/2019) Performed for Abdominal pain, LUQ (left upper quadrant), Abdominal pain, RUQ (right upper quadrant), Nausea * ENDOTRACHEAL TUBE NOTE(Performed 04/06/2018) * LAPAROSCOPIC CHOLECYSTECTOMY(Performed 04/06/2018) * PATHOLOGY TISSUE EXAM (STL)(Performed 04/06/2018) Performed for Cholecystitis * HCG URINE QUALITATIVE(Performed 04/06/2018) Performed for Preop examination * US ABDOMEN LIMITED(Performed 04/02/2018) Performed for Right upper quadrant abdominal pain, Diarrhea, unspecified type, Epigastric pain * LAB RESULTS ORDER(Performed 05/18/2015) * CARDIAC PROCEDURE ORDER(Performed 12/30/2014) * CARDIAC EKG ORDER(Performed 12/30/2014) * GLUCOSE - POINT OF CARE(Performed 12/29/2014) * GLUCOSE - POINT OF CARE(Performed 12/29/2014) * BASIC METABOLIC PANEL (CALCIUM TOTAL)(Performed 12/29/2014) * CBC W AUTO DIFFERENTIAL(Performed 12/29/2014) * GLUCOSE - POINT OF CARE(Performed 12/29/2014) * GLUCOSE - POINT OF CARE(Performed 12/28/2014) * GLUCOSE - POINT OF CARE(Performed 12/28/2014) * FL FLUORO UPPER GI TRACT + KUB(Performed 12/28/2014) Performed for H/O laparoscopic partial gastrectomy * TSH(Performed 12/28/2014) Performed for H/O laparoscopic partial gastrectomy, Lumbar back pain, History of gastric ulcer, DJD(degenerative joint disease), Fatty liver disease, nonalcoholic, Elevated cholesterol, Hypertension, Arthritis, Morbid obesity (HCC) * HEMOGLOBIN A1C(Performed 12/28/2014) Performed for H/O laparoscopic partial gastrectomy, Lumbar back pain, History of gastric ulcer, DJD(degenerative joint disease), Fatty liver disease, nonalcoholic, Elevated cholesterol, Hypertension, Arthritis, Morbid obesity (HCC) * VITAMIN D 25-HYDROXY(Performed 12/28/2014) * BASIC METABOLIC PANEL (CALCIUM TOTAL)(Performed 12/28/2014) * CBC W AUTO DIFFERENTIAL(Performed 12/28/2014) * GLUCOSE - POINT OF CARE(Performed 12/27/2014) * GLUCOSE - POINT OF CARE(Performed 12/27/2014) * LAPAROSCOPIC GASTRECTOMY (LONGITUDINAL/SLEEVE)(Performed 12/27/2014) Performed for Morbid obesity (HCC) * HCG URINE QUALITATIVE - POINT OF CARE(Performed 12/27/2014) * VITAMIN B12(Performed 12/14/2014) Performed for Preoperative examination * CBC W AUTO DIFFERENTIAL(Performed 12/14/2014) Performed for Preoperative examination * VITAMIN B1(Performed 12/14/2014) Performed for Preoperative examination * COMPREHENSIVE METABOLIC PANEL(Performed 12/14/2014) Performed for Preoperative examination * EKG 12-LEAD(Performed 12/14/2014) Performed for Preoperative examination * XR LUMBAR SPINE 2 OR 3VW(Performed 05/10/2011) Performed for Right leg pain * HCG URINE QUALITATIVE - POINT OF CARE(Performed 01/27/2011) * XR LUMBAR SPINE 2 OR 3VW(Performed 01/27/2011) Performed for Lumbar back pain * HGB HCT PANEL(Performed 01/18/2011) * XR LUMBAR SPINE 2 OR 3VW(Performed 01/17/2011) Performed for Back pain * HCG URINE QUALITATIVE - POINT OF CARE(Performed 01/17/2011) * TYPE + SCREEN PANEL(Performed 01/10/2011) Performed for Preoperative examination * URINALYSIS REFLEX MICROSCOPIC REFLEX CULTURE(Performed 01/10/2011) Performed for Preoperative examination * HGB HCT PANEL(Performed 01/10/2011) Performed for Preoperative examination * BASIC METABOLIC PANEL (CALCIUM TOTAL)(Performed 01/10/2011) Performed for Preoperative examination * EMG WITH NERVE CONDUCTION STUDY(Performed 11/05/2010) * IMAGING/RADIOLOGY/XRAY RESULTS ORDER(Performed 10/30/2010) * IMAGING/RADIOLOGY/XRAY RESULTS ORDER(Performed 10/30/2010) * IMAGING/RADIOLOGY/XRAY RESULTS ORDER(Performed 10/19/2010) * EMG WITH NERVE CONDUCTION STUDY(Performed 02/25/2008) Results * AK REPR CMPL WND HEAD,FAC,HAND 2.6-7.5, AK [facility]MS[facility] MOHS MG TQ H/N/H/F/G EA ADDL STAG, AK CHMSRG MOHSMG TQ H/N/H/F/G 1ST STAG 5 BLOC (08/29/2021 1:45 PM CDT) Narrative Cary Olivo MD - 08/29/2021 1:45 PM CDT Cary Olivo MD ? 09/01/2021 12:02 PM Mohs Micrographic Surgery Operative Note Procedure: Mohs micrographic surgery Date of service: 08/29/2021 Location: left inferior lateral neck Preop diagnosis: Basal cell carcinoma Postop diagnosis: Same Mohs AUC score: 8 Number of stages: 2 Preop size: 1.1 x 0.9 cm Postop size: 1.8x1.8 cm Depth of final defect: adipose Previous dermpath accession #: [id number] Repair type: second intent Mohs accession #: [id number] Surgeon and Pathologist: Cary Olivo MD served as both surgeon and pathologist. No other physician was involved in the cancer removal or pathology interpretation. Indications for Mohs Surgery Removal of the patient's tumor is complicated by the following clinical features: Clinical area critical for tissue conservation (Area M: cheeks, forehead, scalp, neck, jawline, pretibial surface). Based on my medical judgement, Mohs surgery is the most appropriate treatment for this cancer compared to other treatments. I discussed alternative treatments to Mohs surgery and specifically discussed the risks and benefits of curettage, excision with permanent sections, and foregoing treatment. The rationale for Mohs was explained to the patient and consent was obtained. The risks, benefits and alternatives to therapy were discussed in detail. Specifically, the risks of infection, scarring, bleeding, prolonged wound healing, incomplete removal, allergy to anesthesia, nerve injury and recurrence were addressed. Prior to the procedure, the treatment site was clearly identified and confirmed by the patient. All components of [place] Protocol/PAUSE Rule completed. STAGE I: The patient was placed on the operating table. The cancer was identified and outlined. The entire surgical field was prepped with hibiclens. The surgical site was anesthetized using Lidocaine 1% with epinephrine 1:100,000 buffered with sodium bicarbonate 8.4% in a 1:10 ratio.The area of clinically apparent tumor was debulked with a 2 mm curette. The layer of tissue was then surgically excised using a #15 blade and was then transferred onto a specimen sheet maintaining the orientation of the specimen. Hemostasis was obtained using monopolar electrodesiccation. The wound site was then covered with a dressing while the tissue samples were processed for examination. The specimen was oriented, mapped and divided. Each section was then inked and processed in the Mohs lab using the Mohs protocol and submitted for frozen section. The histopathologic sections were reviewed by the surgeon in conjunction with the reference map. Total blocks: 1 Total slides: 4 Frozen sections were examined by the surgeon and revealed residual tumor. Tumor was indicated in red on the reference map. Cell morphology: basaloid nests with peripheral palisading and abundant mucin Pathological pattern: Basal cell carcinoma, nodular Depth of invasion: Dermis Scar tissue: Not Present Perineural invasion: Not Present Inflammation obscuring possible tumor presence: Not Present STAGE II: The patient was prepped in the same fashion as the first stage. Using a similar technique to that described above, a thin layer of tissue was removed from all areas where tumor was visible on the previous stage. The tissue was again oriented, mapped, dyed, and processed as above. Histopathologic sections were reviewed in conjunction with the reference map. Total blocks: 1 Total slides: 2 Frozen sections were examined by the surgeon and revealed: No additional tumor. Histology: No malignant cells seen in the sections examined. No additional histologic findings appreciated. [facility] CLIA # [id number] Mohs Plant Science Professor: Cary Olivo MD REPAIR: Complex Primary Surgeon: Cary Olivo MD Repair Size: 3.4 cm Sutures: 4-0 monocryl Width of underminin.8 cm Free margin involved: no Presence of exposed bone/cartilage/tendon/named neurovascular structure: no Use of retention sutures: no Indication for complex repair: extensive undermining The defect was identified and a marking pen was used to plan the repair. The area was infiltrated with Lidocaine 1% with epinephrine 1:100,000 buffered with sodium bicarbonate 8.4% in a 1:10 ratio, prepped with iodine and draped with sterile towels. The wound was debeveled. Extensive undermining was performed to a distance of at least 2.0 cm (defect width perpendicular to closure is 1.8 cm) along one edge of the entire surgical defect. Complex repair was performed because inelasticity of skin made closure difficult, to avoid a deforming, depressed, and contracted scar, and to preserve the functional anatomy. Cones were excised within relaxed skin tension lines on both sides of the defect. Hemostasis was obtained using monopolar electrodesiccation. The dermis and subcutaneous tissue were then approximated using buried vertical mattress sutures. Percutaneous simple running sutures were carefully placed for maximum eversion and meticulous wound edge approximation. Careful attention was paid to avoid distorting any nearby free margins. The wound was cleansed with saline and ointment was applied along the wound surface. A sterile pressure dressing was applied. Wound care instructions were given verbally and in writing. The patient left the operating suite in stable condition. Patient was informed that additional refinement of the resulting surgical scar may be used as a second stage of this reconstruction. Dr. Olivo performed the entire surgery, and documentation used to initiate this operative report. I entered the information in our invino DocFlowsheet with the information provided by Dr. Olivo on her handwritten, paper format, surgical worksheet, which was then used to initiate the create of this note. Dr. Olivo then reviewed and edited the note as needed to complete the note. Prema Mayfield [facility] I have reviewed the note, edited it as necessary and performed the entire procedure. Cary Olivo MD [place] Machine Operator Cary Olivo MD PROCEDURE/MINOR SURG ICAL ORDERABLES * DERMATOPATHOLOGY (08/08/2021 12:00 AM CDT) Case Report Dermatopathology Report ? Case: [id number] ? Authorizing Provider: ??Jose Raul Martinez Jr., MD ??Collected: ? 08/08/2021 12:00 AM ? Ordering Location: ? [facility] DermPath Lab ?Received: ?08/09/2021 09:59 AM ? Pathologist: ? Maria Eugenia Farrell MD ? Specimens: ?? A) - Skin, right distal pretibial region ? B) - Skin, left inferior lateral neck ? 7:06 PM CDT DERMATOPATHOLOGY LABORATORY Final Diagnosis Specimen A. SKIN, right distal pretibial region: SEBORRHEIC KERATOSIS, MACULAR (L82.1) (see microscopic description) Specimen B. SKIN, left inferior lateral neck: BASAL CELL CARCINOMA, NODULAR TYPE (C44.41) 7:06 PM CDT DERMATOPATHOLOGY LABORATORY Clinical History A-B: Inflamed seborrheic keratosis vs squamous cell carcinoma. 7:06 PM T DERMATOPATHOLOGY LABORATORY Gross Description Specimen A: Received is one formalin filled container labeled with the patient's name and designated right distal pretibial region. The specimen consists of a shave biopsy measuring [id number]. Jar 0. Specimen B: Received is one formalin filled container labeled with the patient's name and designated left inferior lateral neck. The specimen consists of a shave biopsy measuring [id number]. Jar 0. 1 7:06 PM CDT DERMATOPATHOLOGY LABORATORY Microscopic Description Specimen A. SKIN, right distal pretibial region: Sections show a relatively broad, flat proliferation of small keratinocytes. The surface is gently papillated, and there is increased basilar pigmentation. Additional deeper sections were obtained and reviewed. Specimen B. SKIN, left inferior lateral neck: Within the dermis there are aggregates of basaloid cells with a high nuclear to cytoplasmic ratio and peripheral palisading. 1 7:06 PM CDT DERMATOPATHOLOGY LABORATORY Disclaimer An external and internal positive and negative controls are appropriate for the histochemical, immunohistochemical and immunofluorescence stain(s) in this case (if any), except where stated explicitly. The performance characteristics of the stain(s) cited in this report were developed and its performance characteristic determined by the Dermatopathology Laboratory at [facility], directed by Dr. Ambreen Beckham. These tests need not be, and therefore are not, approved by the [place] Food and Drug Administration. The tests are used for clinical purposes. Billing Codes Specimen Charges Stain Charges 28855 47726 1 1 1 7:06 PM CDT DERMATOPATHOLOGY LABORATORY Embedded Images 1 7:06 PM CDT DERMATOPATHOLOGY LABORATORY Pathology/Cytology TISSUE SPECIMEN FROM SKIN / Unknown 08/08/2021 08/09/2021 9:59 AM CDT Miscellaneous samples (specimen) TISSUE SPECIMEN FROM SKIN / Unknown 08/08/2021 08/09/2021 9:59 AM CDT Jose Raul Martinez Jr., MD LAB - PATHOLOGY /CYTOLOGY ORDERABLES DERMATOPATHOLOGY LABORATORY [facility] - Department of Dermatology [address], [address] [phone] * CT ABDOMEN AND PELVIS WITH IV CONTRAST (04/09/2019 11:47 AM CDT) Anatomical Region Laterality Modality Abdomen, Pelvis Computed Tomogra phy 04/09/2019 3:43 PM CDT Impressions 04/09/2019 3:45 PM CDT NO ACUTE FINDINGS. Reading Radiologist: Judd White MD on 04/09/2019 at 3:45 PM Narrative 04/09/2019 3:[address] abdomen with contrast CT pelvis with contrast Clinical Indication: Severe bilateral upper quadrant abdominal pain. Comparison: Right upper quadrant ultrasound 03/10/2019. Technique: Axial CT images from the lung bases through the pubic symphysis were obtained following 80 cc Omnipaque 350 intravenous contrast administration. Oral contrast was administered. Coronal and sagittal multiplanar reformats were created. Findings: The gallbladder is surgically absent. The liver, kidneys, adrenal glands, spleen, and pancreas are unremarkable. There has been prior gastric bypass surgery. There is a small hiatal hernia. The small and large bowel are normal in caliber throughout. The appendix is normal. The uterus is normal in size. The bladder is unremarkable. There are no acute bony abnormalities. There has been prior L5-S1 fusion. Procedure Note Judd White MD - 04/09/[address] abdomen with contrast CT pelvis with contrast Clinical Indication: Severe bilateral upper quadrant abdominal pain. Comparison: Right upper quadrant ultrasound 03/10/2019. Technique: Axial CT images from the lung bases through the pubic symphysis were obtained following 80 cc Omnipaque 350 intravenous contrast administration. Oral contrast was administered. Coronal and sagittal multiplanar reformats were created. Findings: The gallbladder is surgically absent. The liver, kidneys, adrenal glands, spleen, and pancreas are unremarkable. There has been prior gastric bypass surgery. There is a small hiatal hernia. The small and large bowel are normal in caliber throughout. The appendix is normal. The uterus is normal in size. The bladder is unremarkable. There are no acute bony abnormalities. There has been prior L5-S1 fusion. IMPRESSION NO ACUTE FINDINGS. Reading Radiologist: Judd White MD on 04/09/2019 at 3:45 PM Rashawn Herring MD CT ORDERABLES * US ABDOMEN LIMITED (03/10/2019 8:42 AM CDT) Only the most recent of2 resultswithin the time period is included. Anatomical Region Laterality Modality Abdomen Ultrasound 03/10/2019 8:51 AM CDT Impressions 03/10/2019 8:52 AM CDT Fatty liver Status post cholecystectomy Reading Radiologist: Chau Paez MD on 03/10/2019 at 8:52 AM Narrative 03/10/2019 8:52 AM CDT Ultrasound abdomen limited INDICATION: Abdominal pain. Nausea. COMPARISON: 04/02/2018 FINDINGS: Ultrasound shows increased echotexture to the liver consistent with fatty infiltration. There is no intrahepatic duct dilation. The pancreas is unremarkable. The gallbladder is absent. The common bile duct measures 0.55 cm. The right kidney measures 10.67 x 3.89 x 4.92 cm. There is no hydronephrosis. Procedure Note Chau Paez MD - 03/10/2019 Ultrasound abdomen limited INDICATION: Abdominal pain. Nausea. COMPARISON: 04/02/2018 FINDINGS: Ultrasound shows increased echotexture to the liver consistent with fatty infiltration. There is no intrahepatic duct dilation. The pancreas is unremarkable. The gallbladder is absent. The common bile duct measures 0.55 cm. The right kidney measures 10.67 x 3.89 x 4.92 cm. There is no hydronephrosis. IMPRESSION Fatty liver Status post cholecystectomy Reading Radiologist: Chau Paez MD on 03/10/2019 at 8:[address] [facility] ENGINEER-DIRECTOR FIXED INCOME US ORDERA BLES * HEMOGLOBIN A1C (HgbA1C) (03/08/2019 11:26 AM CDT) Only the most recent of2 resultswithin the time period is included. Hemoglobin A1c 5.2 <5.7 % of total Hgb [facility] Comment: For the purpose of screening for the presence of diabetes: <5.7% ? Consistent with the absence of diabetes 5.7-6.4% ?Consistent with increased risk for diabetes ?(prediabetes) > or =6.5% ??Consistent with diabetes This assay result is consistent with a decreased risk of diabetes. Currently, no consensus exists regarding use of hemoglobin A1c for diagnosis of diabetes in children. According to [place] Diabetes Association (ADA) guidelines, hemoglobin A1c <7.0% represents optimal control in non- diabetic patients. Different metrics may apply to specific patient populations. Standards of Medical Care in Diabetes(ADA). ?? REPORT COMMENT: FASTING:YES Test Performed at: [facility] [id number] [place], [place] ??[id number] TANIA PATEL DO,MPH Blood BLOOD SPECIMEN / Unknown 03/08/2019 11:26 AM CDT 03/08/2019 11:[address] [facility] APRN-DIRECTOR FIXED INCOME LAB - [facility] ORDERABLES [facility] [address] [place] [address] * (ABNORMAL) VITAMIN D 25-HYDROXY (03/08/2019 11:26 AM CDT) Only the most recent of2 resultswithin the time period is included. Vitamin D, 25 Hydroxy 28(L) 30 - 100 ng/mL [facility] Comment: Vitamin D Status ? 25-OH Vitamin D: Deficiency: ?<20 ng/mL Insufficiency: ? 20 - 29 ng/mL Optimal: ? > or = 30 ng/mL For 25-OH Vitamin D testing on patients on D2-supplementation and patients for whom quantitation of D2 and D3 fractions is required, the QuestAssureD(TM) 25-OH VIT D, (D2,D3), LC/MS/MS is recommended: order code 48699 (patients >2yrs). For more information on this test, go to: http://education.Drifty.Metwit/faq/NPQ930 (This link is being provided for informational/educational purposes only.) Test Performed at: [facility] [address] [place], [place] ??[phone] TANIA PATEL DO,MPH Blood BLOOD SPECIMEN / Unknown 03/08/2019 11:26 AM CDT 03/08/2019 11:[address] [place] APRN-DIRECTOR FIXED INCOME LAB - [facility] ORDERABLES Performing Organization Address [facility] Co de Phone Number [facility] [address] [place] [address] * CBC W/O DIFFERENTIAL (03/08/2019 11:26 AM CDT) [facility] White Blood Cell Count 7.9 3.8 - 10.8 Thousand/u L [facility] RBC 4.44 3.80 - 5.10 Million/uL [facility] Hemoglobin 13.2 11.7 - 15.5 g/dL [facility] Hematocrit 40.4 35.0 - 45.0 % [facility] MCV 91.0 80.0 - 100.0 fL [facility] MCH 29.7 27.0 - 33.0 pg [facility] MCHC 32.7 32.0 - 36.0 g/dL [facility] RDW 13.1 11.0 - 15.0 % [facility] Platelet Count 282 140 - 400 Thousand/u L [facility] MPV 12.2 7.5 - 12.5 fL [facility] Comment: Test Performed at: [facility] [address] [place] [address] ??[phone] TANIA PATEL DO,MPH Blood BLOOD SPECIMEN / Unknown 03/08/2019 11:26 AM CDT 03/08/2019 11:[address] [facility] APRN-DIRECTOR [facility] - HEM ATOLOGY ORDERABLES Performing Organization Address [facility] [place] de Phone Number [facility] [address] [place] [address] * COMPREHENSIVE METABOLIC PANEL (03/08/2019 11:26 AM CDT) Only the most recent of2 resultswithin the time period is included. Pathologist [facility] Glucose 94 65 - 99 mg/dL [facility] Comment: ? Fasting reference interval BUN 12 7 - 25 mg/dL [facility] Creatinine 0.83 0.50 - 1.10 mg/dL [facility] eGFR by MDRD 83 > OR = 60 mL/min/1. 73m2 [facility] eGFR by MDRD 97 > OR = 60 mL/min/1. 73m2 [facility] BUN/Creatinine Ratio NOT APPLICABLE (calc) [facility] Sodium 141 135 - 146 [...] 29 U/L [facility] Comment: Test Performed at: [facility] [address] [place] ??[phone] TANIA PATEL DO,MPH Blood BLOOD SPECIMEN / Unknown 03/08/2019 11:26 AM CDT 03/08/2019 11:[address] [facility] DATA CENTER ENGINEER-DIRECTOR [facility] - JOSHUA BUNNY ORDERABLES [facility] [address] [place] [address] * (ABNORMAL) LIPID PROFILE (LIPID PANEL) (03/08/2019 [...] factors. LDL-C is now calculated using the Red calculation, which is a validated novel method providing better accuracy than the Friedewald equation in the estimation of LDL-C. Hayden SS et al. UYEN. 2013;310(19): 2424-9925 (http://education.[employer].Metwit/faq/UBE461) CHOL/HDLC RATIO 3.2 <5.0 (calc) [facility] Non HDL Cholesterol 133(H) <130 mg/dL (calc) [facility] Comment: For patients with diabetes plus 1 major ASCVD risk factor, treating to a non-HDL-C goal of <100 mg/dL (LDL-C of <70 mg/dL) is considered a therapeutic option. Test Performed at: [id number] [facility] [place] ??[phone] TANIA PATEL DO,MPH Blood BLOOD SPECIMEN / Unknown 03/08/2019 11:26 AM CDT 03/08/2019 11:[address] Feliz Tobias DATA CENTER ENGINEER-DIRECTOR [facility]COM[facility] - JOSHUA BUNNY ORDERABLES [facility] [address] [place] [address] * GROSS + MICRO EXAM (STL) (04/06/2018 8:33 AM CDT) Case Report Surgical Pathology Report ? Case: [id number] ? Authorizing Provider: ??Rashawn Herring MD ? Collected: ? 04/06/2018 08:33 AM ? Ordering Location: ? [facility] ?Received: ?04/06/2018 10:33 AM ? Pathologist: ? Ray Chin MD ? Specimen: ?Gallbladder ? 04/07/2018 3:34 PM CDT [facility] Final Diagnosis 1. Gallbladder, cholecystectomy: -- Cholelithiasis Kemal 04/07/2018 3:34 PM T [facility] Gross Description The specimen is received fixed in formalin in one container, labeled with the patient's name, Finesse Ramirez, and gallbladder and consists of an 8.9 x 3.6 x 3.4 cm intact gallbladder with pink-coon and glistening serosa and a stapled cystic duct. The cystic duct is also sutured. The wall thickness measures 0.1 to 0.2 cm. A nodular, oval-shaped, black stone is identified in the fundus of the gallbladder measuring 0.9 cm in greatest dimension. The mucosa is pink-coon and velvety with some yellow stippling scattered throughout. Sections are submitted in A1. Rangel 04/07/2018 3:34 PM T [facility] Microscopic Description Microscopic examination supports pathologic diagnosis. Kemal 04/07/2018 3:34 PM T [facility] Disclaimer All histochemical and/or immunohistochemical results are interpreted with controls that demonstrate appropriate staining reactions before reporting results. Note on use of immunocytochemistry reagents: This test was developed and its performance characteristic determined by [facility], Department of Laboratory Medicine. It has not been cleared or approved by the U.S. Food and Drug Administration (FDA). The FDA has determined that such clearance or approval is not necessary. The test is used for clinical purpose. It should not be regarded as investigational or for research. This laboratory is certified to perform high complexity testing. 04/07/2018 3:34 PM CDT [facility] Embedded Images 04/07/2018 3:34 PM CDT [facility] Pathology/Cytolo gy ENTIRE GALLBLADDER / Unknown 04/06/2018 8:33 AM CDT 04/06/2018 10:33 AM CDT Rashawn Herring MD LAB - PATHOLOGY/CYTO LOGY ORDERABLES [facility] [address] [place] [address] * HCG URINE QUALITATIVE (04/06/2018 7:16 AM CDT) [facility] hCG Qualitative Urine Negative Negative 04/06/2018 7:45 AM CDT [facility] Urine URINE / Unknown Collection / Unknown 04/06/2018 7:16 AM CDT 04/06/2018 7:34 AM CDT Harini Phelan DO LAB - URINALYSIS ORD ERABLES Performing Organization Address [facility] [place]/[facility]/ZIP Co de Phone Number [facility] [address] [place] [address] * LAB RESULTS ORDER (05/18/2015) Laureano Lantigua MD LAB - THERAPEUTIC DRUG MONITORING ORDERABLES * CARDIAC PROCEDURE ORDER (12/30/2014 8:34 PM MOVEMENT THERAPIST) Narrative 12/30/2014 8:34 PM MOVEMENT THERAPIST Ordered by an unspecified provider. Scanned Document CARDIAC SERVICES ORD ERABLES * CARDIAC EKG ORDER (12/30/2014 8:34 PM MOVEMENT THERAPIST) Narrative 12/30/2014 8:34 PM MOVEMENT THERAPIST Ordered by an unspecified provider. Scanned Document CARDIAC SERVICES ORD ERABLES * GLUCOSE - POINT OF CARE (12/29/2014 10:36 AM MOVEMENT THERAPIST) Only the most recent of7 resultswithin the time period is included. [facility] Glucose WB/POC 87 70 - 106 mg/dL 12/29/2014 12:59 PM MOVEMENT THERAPIST [facility] Blood BLOOD SPECIMEN / Unknown 12/29/2014 10:36 AM MOVEMENT THERAPIST 12/29/2014 12:59 PM MOVEMENT THERAPIST Rashawn Herring MD LAB - POINT OF CARE ORDERABLES Performing Organization Address [facility] [place]/[facility]/ZIP Co de Phone Number [facility] [id number] [place] [address] * (ABNORMAL) CBC W AUTO DIFFERENTIAL (12/29/2014 4:09 AM MOVEMENT THERAPIST) Only the most recent of3 resultswithin the time period is included. WBC 9.1 4.4 - 10.7 x10^9/L 12/29/2014 5:32 AM [facility] RBC 3.65(L) 3.80 - 5.20 x10^12/L 12/29/2014 5:32 AM [facility] Hemoglobin 11.1(L) 12.0 - 15.6 gm/dL 12/29/2014 5:32 AM [facility] Hematocrit 33.3(L) 35.9 - 45.5 % 12/29/2014 5:32 AM [facility] MCV 91.2 80.7 - 98.3 fl 12/29/2014 5:32 AM [facility] MCH 30.4 26.7 - 34.0 pg 12/29/2014 5:32 AM [facility] MCHC 33.3 30.8 - 35.9 gm/dL 12/29/2014 5:32 AM [facility] Platelet Count 186 153 - 416 x10^9/L 12/29/2014 5:32 AM [facility] RDW-CV 13.4 12.1 - 14.9 % 12/29/2014 5:32 AM [facility] MPV 11.2 9.4 - 12.9 fl 12/29/2014 5:32 AM [facility] Neutrophils % 56.3 44.0 - 73.0 % 12/29/2014 5:32 AM [facility] Lymphocytes % 30.5 20.0 - 43.0 % 12/29/2014 5:32 AM [facility] Monocytes % 11.6 5.0 - 13.0 % 12/29/2014 5:32 AM [facility] Eosinophils % 1.0 0.0 - 6.0 % 12/29/2014 5:32 AM [facility] Basophils % 0.2 0.0 - 2.0 % 12/29/2014 5:32 AM [facility] Immature Granulocytes 0.4 0 - 1 % 12/29/2014 5:32 AM [facility] Neutrophil Absolute 5.11 2.01 - 7.14 x10^9/L 12/29/2014 5:32 AM [facility] Lymphocytes Absolute 2.77 1.07 - 3.94 x10^9/L 12/29/2014 5:32 AM [facility] Monocytes Absolute 1.05 0.26 - 1.07 x10^9/L 12/29/2014 5:32 AM [facility] Eosinophils Absolute 0.09 0 - 0.47 x10^9/L 12/29/2014 5:32 AM [facility] Basophils Absolute 0.02 0 - 0.08 x10^9/L 12/29/2014 5:32 AM [facility] Immature Granulocytes Absolute 0.04 0.00 - 0.06 x10^9/L 12/29/2014 5:32 AM [facility] Blood BLOOD SPECIMEN / Unknown 12/29/2014 4:09 AM [facility] 12/29/2014 5:22 AM [facility] Rashawn Herring MD LAB - HEMATOLOGY ORD ERABLES [facility] [address] [place] [address] * (ABNORMAL) BASIC METABOLIC PANEL (CALCIUM TOTAL) (12/29/2014 4:09 AM [facility]) Only the most recent of3 resultswithin the time period is included. Glucose 83 74 - 106 mg/dL 12/29/2014 5:48 AM [facility] Sodium 136 136 - 145 mmol/L 12/29/2014 5:48 AM [facility] Potassium 3.7 3.5 - 5.1 mmol/L 12/29/2014 5:48 AM [facility] Chloride 105 98 - 107 mmol/L 12/29/2014 5:48 AM [facility] CO2 27 22 - 31 mmol/L 12/29/2014 5:48 AM [facility] Calcium 8.0(L) 8.5 - 10.1 mg/dL 12/29/2014 5:48 AM [facility] Anion Gap 4(L) 5 - 15 mmol/L 12/29/2014 5:48 AM [facility] BUN 12 7 - 21 mg/dL 12/29/2014 5:48 AM [facility] Creatinine 0.89 0.50 - 1.30 mg/dL 12/29/2014 5:48 AM [facility] eGFR by MDRD >60 >60 mL/min/1.7 3m2 12/29/2014 5:48 AM MOVEMENT THERAPIST [facility] eGFR by MDRD >60 >60 mL/min/1.7 3m2 12/29/2014 5:48 AM MOVEMENT THERAPIST [facility] Blood BLOOD SPECIMEN / Unknown 12/29/2014 4:09 AM MOVEMENT THERAPIST 12/29/2014 5:22 AM MOVEMENT THERAPIST Rashawn Herring MD LAB - CHEMISTRY PALMA GARRIDO [facility] Organization Address City/State/ZIP Co de Phone Number [facility] [address] [place] [address] * FL FLUORO UPPER GI TRACT + KUB (12/28/2014 8:15 AM MOVEMENT THERAPIST) Anatomical Region Laterality Modality Abdomen Radiographic Lindsay ging 12/28/2014 3:00 PM MOVEMENT THERAPIST Impressions 12/28/2014 3:00 PM MOVEMENT THERAPIST No evidence of leak or obstruction. Narrative 12/28/2014 3:00 PM MOVEMENT THERAPIST Fluoroscopic upper GI with KUB Indication: Morbid obesity, gastric sleeve bypass surgery, gastric leak. Findings: Multiple fluoroscopic images of the gastric remnant were obtained following ingestion of oral contrast media. There is no evidence of leak. There is prompt emptying into the small bowel. The total fluoroscopy time was 0.7 minutes. Procedure Note Judd White MD - 12/28/2014 Fluoroscopic upper GI with KUB Indication: Morbid obesity, gastric sleeve bypass surgery, gastric leak. Findings: Multiple fluoroscopic images of the gastric remnant were obtained following ingestion of oral contrast media. There is no evidence of leak. There is prompt emptying into the small bowel. The total fluoroscopy time was 0.7 minutes. IMPRESSION No evidence of leak or obstruction. Rashawn Herring MD FLUOROSCOPY ORDERABL ES * TSH (12/28/2014 2:26 AM MOVEMENT THERAPIST) TSH 1.27 0.358 - 3.740 uIU/mL 12/28/2014 3:03 AM MOVEMENT THERAPIST [facility] Blood BLOOD SPECIMEN / Unknown 12/28/2014 2:26 AM MOVEMENT THERAPIST 12/28/2014 2:34 AM MOVEMENT THERAPIST Cindy oJnes PA-C LAB - CHEMISTRY PALMA GARRIDO Performing Organization Address [facility] [place]/[facility] Co de Phone Number [facility] [address] [place] [address] * HCG URINE QUALITATIVE - POINT OF CARE (IP) (12/27/2014 6:20 AM MOVEMENT THERAPIST) Only the most recent of3 resultswithin the time period is included. Pathologist [facility] HCG Qual Urine Negative Negative [facility] PO[facility] TEST[facility] QC Verified Yes Yes [facility] POC T TESTING Urine specimen (specimen) URINE / Unknown 12/27/2014 6:20 AM MOVEMENT THERAPIST Rashawn Herring MD LAB - POINT OF CARE ORDERABLES Performing Organization Address [facility] de Phone Number [facility] [address] * VITAMIN B1 (12/14/2014 8:50 AM MOVEMENT THERAPIST) [facility] Vitamin B1 Whole Blood 131 70 - 180 nmol/L 12/16/2014 6:27 AM MOVEMENT THERAPIST [employer] ([facility]) Comment: INTERPRETIVE INFORMATION: Vitamin B1, Whole Blood This assay measures the concentration of thiamine diphosphate (TDP), the primary active form of vitamin B1. Approximately 90 percent of vitamin B1 present in whole blood is TDP. Thiamine and thiamine monophosphate, which comprise the remaining 10 percent, are not measured. Test developed and characteristics determined by [employer]. See Compliance Statement B: [email or web address] Blood specimen (specimen) BLOOD SPECIMEN / Unknown 12/14/2014 8:50 AM MOVEMENT THERAPIST 12/14/2014 9:58 AM MOVEMENT THERAPIST Rashawn Herring MD LAB - CHEMISTRY PALMA GARRIDO Performing Organization Address City/[facility] Co de Phone Number [employer] ([facility]) [address] * VITAMIN B12 (12/14/2014 8:50 AM MOVEMENT THERAPIST) [facility] Vitamin B12 338 211 - 911 pg/mL 12/14/2014 2:19 PM MOVEMENT THERAPIST [facility] Blood BLOOD SPECIMEN / Unknown 12/14/2014 8:50 AM MOVEMENT THERAPIST 12/14/2014 9:58 AM MOVEMENT THERAPIST Rashawn Herring MD LAB - CHEMISTRY PALMA GARRIDO Performing Organization Address City/[facility] Co de Phone Number [facility] [address] [place] [address] * EKG 12-LEAD (12/14/2014 8:32 AM MOVEMENT THERAPIST) Ventricular Rate 79 BPM [facility] Atrial Rate 79 BPM [facility] P-R Interval 168 ms [facility] QRS Duration ms 92 ms [facility] Q-T Interval ms 396 ms [facility] QTC Calculation (Bezet) 454 ms [facility] Calculated P Gary -7 degrees [facility] Calculated R Gary 93 degrees [facility] Calculated T Gary 43 degrees [facility] Interpretation EKG Normal sinus rhythm Rightward axis Borderline ECG No previous ECGs available Confirmed by [facility] ([id number]) on 12/14/2014 3:36:58 PM [facility] 12/14/2014 8:32 AM MOVEMENT THERAPIST 12/14/2014 3:36 PM MOVEMENT THERAPIST Rashawn Herring MD ECG ORDERABLES Performing Organization Address [facility] Co de Phone Number [facility] * XR LUMBAR SPINE 2 OR 3 VW (05/10/2011) Only the most recent of3 resultswithin the time period is included. Anatomical Region Laterality Modality Spine Other Sean Deleon MD DIAGNOSTIC IMAGING O RDERABLES * HGB HCT PANEL (01/18/2011 1:15 AM MOVEMENT THERAPIST) Only the most recent of2 resultswithin the time period is included. Hemoglobin 13.1 12.0 - 16.0 gm/dl [facility] Hematocrit 39.5 36.0 - 48.0 % [facility] BLOOD SPECIMEN / Unknown 01/18/2011 1:15 AM MOVEMENT THERAPIST 01/18/2011 1:29 AM MOVEMENT THERAPIST Sean Deleon MD LAB - HEMATOLOGY ORD ERABLES Performing Organization Address [facility] [place] Co de Phone Number [facility] [address] [place] [address] * URINALYSIS ROUTINE W/REFLEX TO CULTURE (01/10/2011 10:25 AM MOVEMENT THERAPIST) Color UA YELLOW [facility] Character UA CLEAR [facility] Specific [place] UA 1.009 1.005 - 1.0300 [facility] pH UA 6.5 4.6 - 8.0 pH Units [facility] Leukocyte UA NEGATIVE Negative /ul [facility] Nitrite UA NEGATIVE Negative [facility] Protein UA NEGATIVE Negative mg/dl [facility] Glucose UA NEGATIVE Normal mg/dl [facility] Ketone UA NEGATIVE Negative mg/dl [facility] Urobilinogen UA 0.2 Normal Lelia Units [facility] Bilirubin UA NEGATIVE Negative mg/dl [facility] Blood UA NEGATIVE Negative /ul [facility] WBC UA 0-2 <5 /HPF [facility] RBC UA 0-2 <5 /HPF [facility] Epithelial Cell UA 0-2 <5 /HPF [facility] Casts UA 0-2 <2 /LPF [facility] Bacteria UA NEGATIVE [facility] Urine Culture No culture to be done per protocol. [facility] URINE SPECIMEN OBTAINED BY CLEAN CATCH PROCEDURE / Unknown 01/10/2011 10:25 AM MOVEMENT THERAPIST 01/10/2011 11:27 AM MOVEMENT THERAPIST Sean Deleon MD LAB - URINALYSIS ORD ERABLES Performing Organization Address [facility] [place] Co de Phone Number [facility] [address] [place] [address] * TYPE + SCREEN PANEL (01/10/2011 10:25 AM MOVEMENT THERAPIST) ABO Rh O Pos [facility] Antibody Screen Neg Negative [facility] BLOOD SPECIMEN / Unknown 01/10/2011 10:25 AM MOVEMENT THERAPIST 01/10/2011 11:28 AM MOVEMENT THERAPIST Sean Deleon MD LAB - BLOOD BANK ORD ERABLES Performing Organization Address City/[facility] Co de Phone Number [facility] [address] [place] [address] * EMG WITH NERVE CONDUCTION STUDY (11/05/2010) Sean Deleon MD NEUROLOGY ORDERABLES * IMAGING/RADIOLOGY/XRAY RESULTS ORDER (10/30/2010) Only the most recent of3 resultswithin the time period is included. Anatomical Region Laterality Modality Other Sean Deleon MD IMAGING * EMG WITH NERVE CONDUCTION STUDY (02/25/2008) Teddy Toussaint MD NEUROLOGY ORDERABLES Care Teams Engine Turner Relationship Specialty [place] [address] [place], [place] [id number] PCP - General 01/08/24 Kelly Roberts, RN Fruit Shipper 12/28/14
--- OUTSIDE RECORDS SUMMARY | 2024-11-15 03:18 | XMS_ITS | Encounter Summary ---
Author Organization [facility] Health Address [address] [place] [address] Care Team Providers Care Special Services Supervisor Name Role Phone Kelly Roberts RN Unavailable Encounter Details Date Type Department Care Team (Latest Contact Info) Description 08/03/2021 Travel Social History Tobacco Use Types Packs/Day Years [...] AM CDT documented as of this encounter Functional Status [...] on filedocumented in this encounter Care Teams Special Services Supervisor Relationship Specialty Start Date End Date Kelly Roberts RN Cotton Chopper 12/28/14 documented as of this encounter
--- OUTSIDE RECORDS SUMMARY | 2024-11-15 03:18 | XMS_ITS | Encounter Summary ---
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 Office Visit [facility] Weight Management Services [id number] [address] [place] [address] [address] Overweight (BMI 25.0-29.9) (Primary Dx); History of obesity in adulthood; Fatty liver disease, nonalcoholic Social History Tobacco [...] Sign Reading Time Taken Comments Blood Pressure 146/78 10/26/2019 11:08 AM ELECTRIC SCREW DRIVER OPERATOR Pulse 89 10/26/2019 11:08 AM ELECTRIC SCREW DRIVER OPERATOR Temperature - - Respiratory Rate - - Oxygen Saturation - - Inhaled Oxygen Concentration - - Weight 99.1 kg (218 lb 6.4 oz) 10/26/2019 11:08 AM ELECTRIC SCREW DRIVER OPERATOR Height 182.2 cm (5' 11.75 ) 10/26/2019 11:08 AM ELECTRIC SCREW DRIVER OPERATOR Body Mass Index 29.83 10/26/2019 11:08 AM ELECTRIC SCREW DRIVER OPERATOR documented in this encounter Functional Status Functional [...] this encounter Patient Instructions * Patient Instructions* Iwona Lorenz MD - 10/26/2019 11:52 AM ELECTRIC SCREW DRIVER OPERATOR Images from the original note were not included. Zoloft for night eating Saxenda for weight loss I recommend for you the following: ___Dietician Visit- This is a one on one visit with one of our dieticians. It is billed to your insurance so call your insurance company to ensure they will cover a frame stylist visit for weight loss (primarily use code E66.01). This visit is usually scheduled 3-4 weeks after your initial visit. Please call our office to schedule at [phone]. ___Behavior Modification Classes- These are weekly classes taught by a health educator focusing on skills related to weight loss. These classes are highly recommended. Our teacher, Aimee Peters, will be contacting you with more information. Her number is [phone]. ___ Counselor Visit- Our counselors meet with patients to focus on behaviors that are keeping them from meeting their goals. They meet with patients in our office here and the number to schedule is [phone]. ___ Visits with Dr Lorenz every 6 weeks. ___ Visits with Dr Lorenz every month. A Summary of Initial Visit: Time Restricted Eating Limit eating to a 8-10 hour time period daily. This will help to burn fat and may help overall health. Log Your Food Intake Keep a calendar of what you eat daily. You should weigh and measure all food. This will help with overall weight loss goals. It will also help your providers better help you. Think About What Your Drink Drink at least 64 ounces of water daily. Eliminate beverages with calories including soda, juice, alcohol. Exercise Dedicated exercise for 20 minutes 3 times per week. This can be walking, swimming, stationary bike.Find something that you have access to and enjoy. Exercise helps you to keep you from regaining weight and makes your heart, lungs and blood vessels healthier. Protein Supplement Replace 1 meal or snack daily with a Protein Shake (not bar). Meal Replacement Shakes High Protein Supplement Options High Protein Supplement Calories Carbohydrate Protein Lactose Free Where to Find Atkins Advantage (11 oz) 160 5 15 No Jose???s ClubJeanette Target Scnnhung EAS Advant-Edge Carb Control (11 oz) 110 4 17 Yes Jeanette Khalil Jose???s Club Schearlene Muscle Milk Light (14 oz) 160 10 20 Yes Vitamin Shoppe Bariatric Advantage High Protein Meal Replacement Powder 160 8 27 Yes Online High Protein Slim Fast (11 oz) 190 6 20 No Simran Manley Isopure Plus (20 oz) 160 0 40 Yes [facility], [facility] Premier Protein Shake (11 oz) 160 5 30 No Vineet Bowden Jose???s Uninjury Protein Powder 100 4 20 Yes Online Look for High Protein, Low Carbohydrate options. A good protein shake has at least TWICE as much Protein as Carbohydrate. More than 15 grams of protein Less than 8-10 grams of carbohydrates Shakes should have less than 200 calories each. Replace Breakfast or Lunch with a Shake Weight Loss Medications Medication Who How it Works Side Effects Warnings Orlistat (Xenical) Available in lower dose without prescription (Otilio) Adults and children ages 12 and older Works in your gut to reduce the amount of fat your body absorbs from the food you eat -diarrhea -gas -leakage of oily stools -stomach pain Rare cases of severe liver injury have been reported. Avoid taking with cyclosporine . Take a multivitamin pill daily to make sure you get enough of certain vitamins that your body may not absorb from the food you eat. Lorcaserin (Belviq) Adults Acts on the serotonin receptors in your brain. May help you feel full after eating smaller amounts of food. -constipation -cough -dizziness -dry mouth -feeling tired -headaches -nausea Tell your doctor if you take antidepressants or migraine medications, since some of these can cause problems when taken together. Phentermine-topiramate (Qsymia) Adults A mix of two medications: phentermine, which lessens your appetite, and topiramate, which is used to treat seizures or migraine headaches. May make you less hungry or feel full sooner. -constipation -dizziness -dry mouth -taste changes, especially with carbonated beverages -tingling of your hands and feet -trouble sleeping Don???t use if you have glaucoma or hyperthyroidism. Tell your doctor if you havehad a heart attack or stroke, abnormal heart rhythm, kidney disease, or mood problems. MAY LEAD TO DEFECTS. DO NOT TAKE QSYMIA IF YOU ARE OR PLANNING A . Do not take if you are . Naltrexone-bupropion (Contrave) Adults A mix of two medications: naltrexone, which is used to treatalcohol and drug dependence, and bupropion, which is used to treat depression or help people quit smoking. May make you feel less hungry or full sooner. -constipation -diarrhea -dizziness -dry mouth -headache -increased blood pressure -increased heart rate -insomnia -liver damage -nausea -vomiting Do not use if you have uncontrolled high blood pressure, seizures or a history of anorexia or bulimia nervosa . Do not use if you are dependent on opioid pain medications or withdrawing from drugs or alcohol. Do not use if you are taking bupropion (Wellbutrin, Zyban). MAY INCREASE SUICIDAL THOUGHTS OR ACTIONS. Liraglutide (Saxenda) Available by injection only Adults May make you feel less hungry or full sooner. At a lower dose under a different name, Victoza, FDA-approved to treat type 2 diabetes. -nausea -diarrhea -constipation -abdominal pain -headache -raised pulse May increase the chance of developing pancreatitis. Has been found to cause a rare type of thyroid tumor in animals. Other medications that curb your desire to eat include: -Phentermine -Benzphetamine -Diethylpropion -Phendimetrazine Adults Increase chemicals in your brain to make you feel you are not hungry or that you are full. Note: FDA-approved only for short-term use--up to 12 weeks -dry mouth -constipation -difficulty sleeping -dizziness -feeling nervous -feeling restless -headache -raised blood pressure -raised pulse Do not use if you have heart disease, uncontrolled high blood pressure, hyperthyroidism, or glaucoma. Tell your doctor if you have severe anxiety or other mental health problems. TRIC SCREW DRIVER OPERATOR documented in this encounter Progress Notes * Iwona Lorenz MD - 10/26/2019 11:14 AM CST Bariatric Initial EVALUATION HISTORY & PHYSICAL Height: . (182.2 cm) Weight: 218 lb 6.4 oz (99.1 kg) BMI (Calculated): 29.84 BP 146/78 Pulse 89 Ht 5 11.75 (1.822 m) Wt 218 lb 6.4 oz (99.1 kg) BMI 29.83 kg/m2 Chief Complaint: Hx of Significant Obesity with Hx of HTN, ALONZO. HPI: Pt is a 49 year old yo female with history of significant obesity who presents for weight lossmanagement. The patient has attempted multiple weight loss regimens in the past without terminal manager success. She has now attained a BMI (Calculated): 29.84 and is hoping that weight management will improve her quality of life, slow down the progression and the development of comorbid conditions with better control. Referred by: surgery Surgeon: Nima Had Gastric sleeve 2014; lost from 285 to 184 pounds. Was lifiting weights, kept food journal to lose and maintain weight loss. Now not doing those things and notes weight regain Stopped working out due to shoulder issue. Hx of spinal fusion; worried about working out alone. Feels tired all the time; waking up at 4 am. Promoted at work; trouble getting breaks to exercise. Regained back to 233 and took 3 months of phentermine and then 1 more month rx. Lost down to 215. Having sugar cravings, eating on run (chips). Feeling hungry all the time. Eating small snacks/meals frequently. Eating at night; waking up to eat. Consuming more than half of calories at night time. Stomach not stretched on testing w/Nima. Wt concern: overweight as child. 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 Lives with , ; normal weight Shared cooking PMHx: Hx of hiatal hernia. Hard to eat dense food. Orthostatic hypotension after surgery Hx of HTN Stopped Wellbutrin and started Concerta for ADHD with psych. Topamax contraindicated per psych as concern with worsening ADHD sxs. Hx of HTN; no BP meds. GERD: Omeprazole, taking Carafate but out for 1 month (unable to eat certain foods high in acid) Vit D supplement and biotin Hx of arthritis: Percocet PRN (1 rx per year) and Soma (1 rx per year) Weight History: Most Weight Lost: 100 LB; Regained: Yes not all Dietary History: Significant Meal Content Carb:[ x ] Fatty/fried Food [ x ] Fast food [ ] Buffet Restaurants [ ] Vegetable [ ] Fruit [ ] Snacks: [ x ] Keeps food diary: (No) Counts Calories (per day): (No) Using Meal Replacements (shakes & bars):(No) Triggers for eating: Stress [ x ] Sadness [x ] Loneliness [ ] Boredom [ x ] TV watching [ x ] Late night [ x ] Binging [x ] Social [ x] Exercise/Physical activity: Activity level (0-10) ( 05 ) (0 0 ) Hour(s)/week Activity Type: Walking [ ] Running [ ] Biking [ ] Water exercise[ ] Other [ ] Patients own reasons to lose weight:: Health, feeling better, and improved quality of life. Willing / Ready /Able score is 15 Target weight: 25 lbs over a period of 6-8 month(s). The patient denies the active presence of any of these 'red-flag' medical problems except those marked with an 'X': [ ] Glaucoma [ ] Seizures [ ] Thyrotoxicosis [ ] Panic Attacks [ ] Dysrhythmia requiring treatment [ ] Bulimia or Anorexia nervosa [ ] Alcohol dependence [ ] Morphine dependence [ ] Other drug abuse problems Wt Readings from Last 3 Encounters: 10/26/19 218 lb 6.4 oz (99.1 kg) 07/30/19 220 lb 3.2 oz (99.9 kg) 06/17/19 218 lb 8 oz (99.1 kg) BP Readings from Last 3 Encounters: 10/26/19 146/78 07/30/19 128/84 06/17/19 122/82 ----- Past Surgical History: Procedure Laterality Date ??? [...] LEFT ??? Rotator Cuff Repair Left 2017 Allergies Allergen Reactions ??? Morphine Nausea and/or Vomiting Can take derivatives ??? Erythromycin Rash ??? Hydrocodone Nausea and/or Vomiting ??? Neurontin [Gabapentin] Other Restless Social History Smoking status: Never Smoker Smokeless tobacco: Never Used Alcohol use: Yes Comment: social Drug use: No Sexual activity: Not on file Family History Problem Relation Age of Onset ??? Arthritis - Rheumatoid Mother ??? Hypertension Mother ??? Migraine Mother ??? Arthritis - Osteo Mother ??? Arthritis - Rheumatoid Father ??? Coronary Artery Disease Father ??? Hypercholesterolemia Father ??? Migraine Father ??? Arthritis - Osteo Father ??? Asthma Brother ??? Arthritis - Rheumatoid Maternal Grandmother ??? Cancer Maternal Grandmother ??? Hypertension Maternal Grandmother ??? Arthritis - Osteo Maternal Grandmother ??? Coronary Artery Disease Maternal Grandfather ??? Arthritis - Rheumatoid Maternal Grandfather ??? Cancer Maternal Grandfather ??? Heart Failure Maternal Grandfather ??? Hypercholesterolemia Maternal Grandfather ??? Hypertension Maternal Grandfather ??? Arthritis - Osteo Maternal Grandfather ??? Stroke Maternal Grandfather Father: s/p gastric bypass (not biological) ----- Past Medical History: Diagnosis Date ??? Arthritis ??? Asthma ??? Chest pain cath 06/2013 pt states ok ??? DJD (degenerative joint disease) ??? Elevated cholesterol not on Rx ??? Fatty liver disease, nonalcoholic ??? History of gastric ulcer ??? Hypertension resolved with gastric sleeve 2014 ??? Migraine ??? Motion sickness ??? PCOS (polycystic ovarian syndrome) ??? Pure hypercholesterolemia Current Outpatient Medications Medication Sig Dispense Refill ??? albuterol HFA (PROVENTIL;VENTOLIN;PROAIR) 108 (90 BASE) MCG/ACT inhaler 4 times daily as needed ??? buPROPion SR 12hr (WELLBUTRIN-SR) 100 MG tablet Take 100 mg by mouth 2 times daily 0 ??? buPROPion SR 12hr (WELLBUTRIN-SR) 150 MG tablet Take 150 mg by mouth once daily. ??? buPROPion XL 24hr (WELLBUTRIN-XL) 150 MG tablet ??? carisoprodol (SOMA) 350 MG tablet Take 1 Tab by mouth 3 times daily as needed. 80 Tab 0 ??? ENGERIX-B 20 MCG/ML injection ADM 1ML IM UTD 0 ??? HAVRIX 1440 EL U/ML injection ADM 1ML IM UTD 0 ??? hydrocortisone (HYTONE) 2.5 % ointment Apply to affected area 4 times daily 20 g 0 ??? hydrocortisone butyrate 0.1 % cream - ketoconazole 2% cream 50:50 CREA Apply to affected area 2times daily as needed. ??? methylphenidate CR (CONCERTA) 18 MG tablet Take 18 mg by mouth once daily 0 ??? omeprazole (PRILOSEC) 20 MG capsule Take 1 capsule by mouth once daily 30 capsule 5 ??? omeprazole (PRILOSEC) 20 MG capsule TAKE 1 CAPSULE BY MOUTH 2 TIMES DAILY,BEFORE BREAKFAST AND SUPPER 30 capsule 5 ??? oxyCODONE (ROXICODONE) 5 MG/5ML oral solution Take 10 mL by mouth every 4 hours as needed for Pain 240 mL 0 ??? oxyCODONE-acetaminophen (PERCOCET) 5-325 MG tablet TK 1 T PO Q 8 H PRN 0 ??? phentermine (ADIPEX-P) 37.5 MG capsule Take 1 capsule by mouth daily before breakfast 30 capsule 0 ??? phentermine (ADIPEX-P) 37.5 MG tablet Take 1 tablet by mouth once daily 60 tablet 0 ??? sucralfate (CARAFATE) 1 GM tablet Take 1 tablet by mouth 4 times daily 360 tablet 0 ??? sucralfate (CARAFATE) 1 GM/10ML suspension Take 10 mL by mouth once daily 300 mL 5 ??? topiramate (TOPAMAX) 25 MG tablet Take 1 tablet by mouth at bedtime 42 tablet 0 ??? vortioxetine (TRINTELLIX) 10 MG tablet Take 10 mg by mouth once daily No current facility-administered medications for this visit. Review of Systems: Positive symptoms are marked with X, otherwise, negative [ ] Weight loss (unexplained) [ ] Fever [ ] Chills [ ] Fatigue [ ] Blurred vision [ ] Double vision/diplopia [ ] Eye pain [ ] Sinus problems [ ] Nose bleeds [ ] Ear ringing [ ] Hearing loss [ ] Mouth or tongue lesions [ ] Chest pain [ ] Irregular heart beats/palpitation [ ] Heart murmurs [ ] Leg pain [ ] Leg/foot ulcers [ ] Leg swelling [ ] Abdominal pain [ ] Nausea [ ] Vomiting [ ] Constipation [ ] Diarrhea [ ] Blood in stools [ ] Hernia [ ] Difficulty urinating [ ] blood in urine [ ] problems will bladder control [ ] Arthritis [ x] Joint pain and stiffness [ ] Gout [ ] Degenerative disc disease [ ] Low back pain [ ] Breast lumps [ ] Breast pain [ Nipple discharge [ ] Skin rashes [ ] Moles [ ] Dizziness [ ] Syncope/passing out [ ] Seizures [ ] Headaches [ ] Weakness (arms or legs) [ ] Tremors [ ] Tingling [ ] Anemia [ ] Bruising [ ] Lymph node enlargement/lumps in the axilla or groin [ ] Shortness of breath [ ] Chronic cough [ ] Wheezing [ ] Severe night sweats [ ] Excessive phlegm [ ] Depression [ ] Anxiety [ ] Panic attacks [ ] Memory problems Physical Examination: VS: BP 146/78 Pulse 89 Ht 5' 11.75 (1.822 m) Wt 218 lb 6.4 oz (99.1 kg) BMI 29.83 kg/m2 General: No distress, well nourished Mood Normal and cooperative. No Agitation, Affect WNL. Neuro Alert & Oriented No Nystagmus Cranial Nerves are Grossly intact No Lateralized weakness, no gross sensory deficit Skin Warm and dry, no skin Tags, no Acanthosis, no Xeroderma, no Hyperpigmentation, no visible Bruising Head Normocephalic, atraumatic, no evidence of abnormalities. No Acne, or excessive facial hair. No Dental erosions or Knuckle callosities Eyes: PERRL, EOM-intact, sclera clear. Conjunctivae wnl. Neck No masses, no Thyroid Enlargement or Scars, No JVD CVS Regular rate and rhythm, no gallop or Murmur Lungs: Clear to auscultation w/o Crackles or Wheezing, Good respiratory effort Abdomen: Limited. Soft without distention, masses, organomegaly, tenderness, rebound. No guarding or rigidity. Lower extremity no Edema No Tender Calves Musculo-Skeletal: No Gait/balance abnormalities No Gross Atrophy or ROM limitation Labs/studies reviewed: Recent Labs Component Name 03/08/19 1126 12/29/14 0409 12/28/14 0226 12/14/14 0850 SODIUM 141 136 135* 138 POTASSIUM 4.3 3.7 3.6 3.9 CHLORIDE 107 105 102 105 CO2 26 27 27 26 BUN 12 12 11 15 CREATININE 0.83 0.89 1.12 0.75 GLUCOSE 94 83 134* 95 CALCIUM 9.0 8.0* 8.1* 8.7 ALT 21 - - 38 ALKPHOS 81 - - 119 AST 21 - - 21 TBIL 1.2 - - 0.4 TPROT 6.7 - - 7.5 EGFR 83 >60 53* >60 EGFRAFR 97 >60 >60 >60 Recent Labs Component Name 12/28/14 0226 TSH 1.27 Recent Labs Component Name 03/08/19 1126 HDL 60 Total Energy Fwnvikhclye=4779 Total Energy Expenditure to lose 1.55 pounds/qhxt=[address] Jeor Impression/Plan: ICD-10-CM 1. Overweight (BMI 25.0-29.9) E66.3 2. History of obesity in adulthood Z86.39 3. Fatty liver disease, nonalcoholic K76.0 - Continue current meds. - D/w the patient the basic components of the weight loss plan. Patient opted for Balanced Calorie Deficit diet as discussed below. I have discussed different options for weight loss in detail with the patient (including reduced calorie diet, behavioral modification and pharmacological option). The following is the outline of the planned agreeable to the patient. - Food journal maintenance was discussed and is recommended. - Discussed avoidance of unhealthy snacking. Pharmaceutical interventions: ___X__ Discussed Saxenda for weight loss. Zoloft for night eating. Pt will review zoloft with Psych. Check with Jameel w/insurance - The patient is agreeable. Plan for ongoing weight management: __x___ Registered Dietitian consultation recommended. __x___ Caloric restriction (1200 calories/day) __x___ Time Restricted Eating discussed __x___ The patient received detailed Menu plan for the daily calories recommended. __x___ Meal Replacement Products (1 protein shakes/day as part of the recommended diet) Licensed Professional Counselor evaluation recommended __x__ Behavioral Modification classes recommended Physical Activity counseling is recommended. Information provided. __x___ Discussed cardio-pulmonary exercise options exercise options with the patient. Specific examples and recommendations were provide. __x___ Activity of 20-40 minutes of fast pace walking is recommended 3 days of the week. __x___ Specific Behavioral modification suggestions and written plan were provided for the patient. __x___ Personalized Diet plan was provided to the patient. __x___ Follow up with Dr. Lorenz in 6 weeks. This encounter with the patient lasted over 45 min, more than 50% of the time was in direct [id number] counseling with the patient regarding increased physical activity, reduced caloric intake, healthy diet and behavioral modifications. Iwona Lorenz MD 11/02/2019 TRIC SCREW DRIVER OPERATOR documented in this encounter Plan of Treatment Not on file documented as of this encounter Visit Diagnoses Diagnosis Overweight (BMI 25.0-29.9)- Primary Overweight History of obesity in adulthood Fatty liver disease, nonalcoholic Other chronic nonalcoholic liver disease documented in this encounter Care Teams Woolen Suiting Shrinker Relationship Specialty Start Date End Date Kelly Roberts, CHEY Rn Embedded 12/28/14 documented as of this encounter
--- OUTSIDE RECORDS SUMMARY | 2024-11-15 03:18 | XMS_ITS | Encounter Summary ---
Author Organization [facility] Health Address [address] [facility] [place] [address] Care Team Providers Care Door Maker Name Role Phone Kelly Roberts RN Unavailable [phone] Reason for Visit * Reason Onset Date Comments Encounter Opened In Error 04/22/2019 Encounter Details Date Type Department Care Team (Late st Contact Info) Description 04/22/2019 Orders Only [facility] Weight Management Services [address] [facility] [address] [place] [address] [place] [address] [facility] [address] [place] [address] Morbid obesity (HCC) ; ERRONEOUS ENCOUNTER--DISREGARD Social History Tobacco Use Types Packs/Day Years [...] as of this encounter Progress Notes * Alma Carter RN - 04/22/2019 12:34 PM CDT Finesse Ramirez encounter was opened in error. Please disregard any activity associated with this encounter. documented in this encounter Plan of Treatment Not on file documented as of this encounter Visit Diagnoses Diagnosis Morbid obesity (HCC)- Primary Morbid obesity ERRONEOUS ENCOUNTER--DISREGARD documented in this encounter Care Teams Door Maker Relationship Specialty Start Date End Date Kelly Roberts, RN Vision Rehabilitation Therapist 12/28/14 documented as of this encounter
--- OUTSIDE RECORDS SUMMARY | 2024-11-15 03:18 | XMS_ITS | Encounter Summary ---
Author Organization [facility] Health Address [address] [facility] [place] [address] Care Team Providers Care Photolithographer Name Role Phone Kelly Roberts RN Unavailable Encounter Details Date Type Department Care Team (Late st Contact Info) Description 05/17/2020 Orders Only [facility] Weight Management Services [address] [address] [place] [address] [address] Essential hypertension ; Elevated cholesterol; Screening for diabetes mellitus; Medication monitoring encounter Social History Tobacco Use Types Packs/Day Years [...] as of this encounter Plan of Treatment Scheduled Orders Name Type Priority Associated Diagnoses Orde r Schedule COMPREHENSIVE METABOLIC PANEL Lab Routine Essential hypertension Medication monitoring encounter Ordered: 05/17/2020 HEMOGLOBIN A1C Lab Routine Essential hypertension Screening for diabetes mellitus Ordered: 05/17/2020 TSH REFLEX FREE T4 Lab Routine Essential hypertension Ordered: 05/17/2020 LIPID PROFILE Lab Routine Elevated cholesterol Ordered: 05/17/2020 documented as of this encounter Visit Diagnoses Diagnosis Essential hypertension- Primary Elevated cholesterol Pure hypercholesterolemia Screening for diabetes mellitus Medication monitoring encounter Encounter for therapeutic drug monitoring documented in this encounter Care Teams Photolithographer Relationship Specialty Start Date End Date Kelly Roberts RN City Auditor 12/28/14 documented as of this encounter
--- OUTSIDE RECORDS SUMMARY | 2024-11-15 03:18 | XMS_ITS | Encounter Summary ---
Author Organization [facility] Address [address] [place] [address] Care Team Providers Care Cattle Trader Name Role Phone Kelly Roberts RN Unavailable [phone] Reason for Visit * Reason Comments Follow-up follow up Encounter Details Date Type Department Care Team (Late st Contact Info) Description 10/24/2021 12:40 PM WALL CLEANER Video Visit [facility] [id number] [address] [place] [address] [address] Overweight (BMI 25.0-29.9) ; History of obesity in adulthood; History of sleeve gastrectomy Social History Tobacco Use Types Packs/Day Years [...] COVID-19? Unable to assess 10/10/2021 9:29 AM WALL CLEANER documented as of this encounter Last Filed Vital Signs Vital Sign Reading Time Taken Comments Blood Pressure - - Pulse - - Temperature - - Respiratory Rate - - Oxygen Saturation - - Inhaled Oxygen Concentration - - Weight 88.9 kg (196 lb) 10/24/2021 12:50 PM WALL CLEANER Height 182.9 cm (6') 10/24/2021 12:50 PM WALL CLEANER Body Mass Index 26.58 10/24/2021 12:50 PM WALL CLEANER documented in this encounter Functional Status Functional [...] as of this encounter Progress Notes * Iwona Lorenz MD - 10/24/2021 12:40 PM CST Today's visit was conducted virtually due to COVID-19 countermeasures. The patient has given verbalconsent to have today's visit conducted by this same means with treatment provided remotely. The patient verbally consents to the billing and collection practices of [facility]. Patient location: Work This encounter was performed using: audio and video Time spent with patient/proxy: 21 minutes (greater than 21 minutes does not change coding) Bariatric FollowUp Visit Chief Complaint: Hx Obesity HPI: The patient is here for follow-up for medical wt loss. Adherence to plan is Fair. Dietary and Exercise/Physical activity change from previous visit: Weight change: loss of 4 pounds 08/08: 200 lb Hard several mos. Had house guests for 4 months. Pet cat was sick; had to have cat put to sleep. Stress eating. Started new job over past 5 weeks. Schedule is off Snacking at night. Trying to take Saxenda in afternoon; taking 2.4 mg Feeling nauseous at times. Saw GI; was go get US and eval for Celiac. Took antibiotic, half a course and diarrhea resolved. Now constipated. Trying to have healthy snacks. Driving by gym she is member of. talking to friends to meet at gym to make plan to get back. Changes in medical history since prior visit: none. Review of Systems: No light headedness, dizziness or excessive fatigue. No chest pain, palpitations or leg swelling No abdominal cramps, no diarrhea, no constipation No leg cramps, calf pain, ulcers or cold extremities. No mood change, unusual feelings of anxiety, depression or irritability No change in sleeping habits. OBJECTIVE: Ht 6' (1.829 m) Wt 196 lb (88.9 kg) BMI 26.58 kg/k6Rtesqj: 6' (182.9 cm) Body mass index is 26.58 kg/m??. CrCl cannot be calculated (Patient's most recent lab result is older than the maximum 15 days allowed.). Wt Readings from Last 3 Encounters: 10/24/21 196 lb (88.9 kg) 10/24/21 200 lb (90.7 kg) 08/29/21 193 lb (87.5 kg) BP Readings from Last 3 Encounters: 08/29/21 150/76 08/28/21 130/78 08/08/21 122/84 Physical exam: General appearance - alert, oriented, no distress Mood within normal limits, Labs/studies reviewed: none Allergies Allergen Reactions ??? Morphine Nausea and/or Vomiting Can take derivatives ??? Erythromycin Rash ??? Hydrocodone Nausea and/or Vomiting ??? Neurontin [Gabapentin] Other Restless Social History Smoking status: Never Smoker Smokeless tobacco: Never Used Alcohol use: Yes Comment: social Drug use: No Sexual activity: Not on file Family History Problem Relation Name Age of [...] Osteo Maternal Grandfather ??? Stroke Maternal Grandfather Past Medical History: Diagnosis Date ??? Arthritis [...] daily as needed. 80 Tab 0 ??? Insulin Pen Needle (BD PEN NEEDLE ESTEFANIA U/F) 32G X 4 MM MISC Inject 1 syringe subcutaneously once daily 100 Each 1 ??? Liraglutide -Weight Management (SAXENDA) 18 MG/3ML Inject 3 mg subcutaneously once daily 15 mL 2 ??? methylphenidate CR (CONCERTA) 18 MG tablet Take 18 mg by mouth once daily 0 ??? omeprazole (PRILOSEC) 20 MG capsule Take 1 (one) capsule by mouth once daily 30 capsule 11 ??? omeprazole (PRILOSEC) 20 MG capsule TAKE 1 CAPSULE BY MOUTH 2 TIMES DAILY,BEFORE BREAKFAST AND SUPPER 30 capsule 5 ??? oxyCODONE (ROXICODONE) 5 MG/5ML oral solution Take 10 mL by mouth every 4 hours as needed for Pain 240 mL 0 ??? sucralfate (CARAFATE) 1 GM tablet Take 1 tablet by mouth 4 times daily 360 tablet 0 ??? sucralfate (CARAFATE) 1 GM/10ML suspension Take 10 mL by mouth 4 times daily 420 mL 11 ??? sucralfate (CARAFATE) 1 GM/10ML suspension Take 10 mL by mouth once daily 300 mL 5 ??? vortioxetine (TRINTELLIX) 10 MG tablet Take 10 mg by mouth once daily No current facility-administered medications for this visit. Impression/Plan: ICD-10-CM 1. Overweight (BMI 25.0-29.9) E66.3 2. History of obesity in adulthood Z86.39 3. History of sleeve gastrectomy Z90.3 - Pharmaceutical interventions: ___x__ cont Saxenda; increase to 3 mg Side effects discussed and patients questions answered. - The patient is agreeable. Plan for ongoing weight management (marked with X): ___x__ Mergers And Acquisitions Attorney care is recommended (1200 calories/day diet to continue / start) The patient received detailed Menu plan for the daily calories recommended. ___x__ Meal Replacement Products (1 protein shake) per day as part of the recommended diet Licensed Professional Counselor evaluation recommended Physical Activity counseling is recommended. Information provided. Discussed low/moderate impact exercise options. Specific examples and recommendations were provided. ___x__ Specific Behavioral modification suggestions made Updated metabolic calculation sheet prepared and discussed at length with the patient. Personalized Diet plan was provided to the patient. ___x__ Follow up with Dr. Lorenz in 6 weeks. My total time spent caring for the patient on the day of the encounter was 25 minutes. Iwona Lorenz MD 11/04/2021 CLEANER documented in this encounter Plan of Treatment Not on file documented as of this encounter Visit Diagnoses Diagnosis Overweight (BMI 25.0-29.9)- Primary Overweight History of obesity in adulthood History of sleeve gastrectomy documented in this encounter Care Teams Cattle Trader Relationship Specialty Start Date End Date Kelly Roberts, RN Shipwright Helper 12/28/14 documented as of this encounter
--- OUTSIDE RECORDS SUMMARY | 2024-11-15 03:18 | XMS_ITS | Encounter Summary ---
Author Organization [facility] Address [address] [place] [address] Care Team Providers Care Floor Tech Name Role Phone Kelly Roberts RN Unavailable [phone] Reason for Visit * Reason Comments Refill Request Encounter Details Date Type Department Care Team (Late st Contact Info) Description 08/24/2019 Refill [facility] [address] [address] [address] [place], [facility] [address] [facility] [address] [place] [address] Refill Request Social History Tobacco Use Types [...] on filedocumented in this encounter Care Teams Floor Tech Relationship Specialty Start Date End Date Kelly Roberts RN Technical Services Representative 12/28/14 documented as of this encounter
--- OUTSIDE RECORDS SUMMARY | 2024-11-15 03:18 | XMS_ITS | Encounter Summary ---
Author Organization [facility] Address [address] [place] [address] Care Team Providers Care Senior Accountant Analyst Name Role Phone Kelly Roberts RN Unavailable [phone] Iwona Lorenz MD Primary Care Provider [phone] Encounter Details Date Type Department Care Team (Late st Contact Info) Description 08/09/2021 Lab Requisition [facility] [address] [facility] [place] [id number] Jose Raul Martinez Jr., MD [address] [facility] [address] [place] [address] Social History Tobacco Use Types Packs/Day Years [...] on file documented as of this encounter Procedures Procedure Name Priority Date/Time Associated Diagnosis Comments DERMATOPATHOLOGY Routine 08/08/2021 12:0 0 AM CDT documented in this encounter Results * DERMATOPATHOLOGY (08/08/2021 12:00 AM CDT) Case Report Dermatopathology Report ? Case: [id number] ? Authorizing Provider: ??Jose Raul Martinez Jr., MD ??Collected: ? 08/08/2021 12:00 AM ? Ordering Location: ? [facility]erm[facility] ?Received: ?08/09/2021 09:59 AM ? Pathologist: ? Maria Eugenia Farrell MD ? Specimens: ?? A) - Skin, right distal pretibial region ? B) - Skin, left inferior lateral neck ? 7:06 PM [facility] DERMATOPATHOLOGY LABORATORY Final Diagnosis Specimen A. SKIN, right distal pretibial region: SEBORRHEIC KERATOSIS, MACULAR (L82.1) (see microscopic description) Specimen B. SKIN, left inferior lateral neck: BASAL CELL CARCINOMA, NODULAR TYPE (C44.41) 7:06 PM [facility] DERMATOPATHOLOGY [facility]ORATORY Clinical History A-B: Inflamed seborrheic keratosis vs squamous cell carcinoma. 7:06 PM [facility] DERMATOPATHOLOGY LABORATORY Gross Description Specimen A: Received is one formalin filled container labeled with the patient's name and designated right distal pretibial region. The specimen consists of a shave biopsy measuring [id number]. Jar 0. Specimen B: Received is one formalin filled container labeled with the patient's name and designated left inferior lateral neck. The specimen consists of a shave biopsy measuring [id number]. Jar 0. 7:06 PM [facility] DERMATOPATHOLOGY LABORATORY Microscopic Description Specimen A. SKIN, [...] nuclear to cytoplasmic ratio and peripheral palisading. 7:06 PM [facility] DERMATOPATHOLOGY LABORATORY Disclaimer An external and internal positive and negative controls are appropriate for the histochemical, immunohistochemical and immunofluorescence stain(s) in this case (if any), except where stated explicitly. The performance characteristics of the stain(s) cited in this report were developed and its performance characteristic determined by the Dermatopathology Laboratory at [facility], directed by Dr. Ambreen Beckham. These tests need not be, and therefore are not, approved by the [place] Food and Drug Administration. The tests are used for clinical purposes. Billing Codes Specimen Charges Stain Charges 37721 24407 1 1 09/24/202 1 7:06 PM CDT DERMATOPATHOLOGY LABORATORY Embedded Images 1 7:06 PM CDT DERMATOPATHOLOGY LABORATORY Pathology/Cytology TISSUE SPECIMEN FROM SKIN / Unknown 08/08/2021 08/09/2021 9:59 AM CDT Miscellaneous samples (specimen) TISSUE SPECIMEN FROM SKIN / Unknown 08/08/2021 08/09/2021 9:59 AM CDT Jose Raul Martinez Jr., MD LAB - PATHOLOGY /CYTOLOGY ORDERABLES DERMATOPATHOLOGY LABORATORY [facility] - Department of Dermatology [facility] Medicine [address] [place] [address], [address] [phone] documented in this encounter Visit Diagnoses Not on filedocumented in this encounter Care Teams Senior Accountant Analyst Relationship Specialty Start [place] [address] [place], [place] [id number] PCP - General 01/08/24 Kelly Roberts, CHEY Tailor Helper 12/28/14 documented as of this encounter
--- OUTSIDE RECORDS SUMMARY | 2024-11-15 03:18 | XMS_ITS | Encounter Summary ---
Author Organization [facility] Address [address] [place] [address] Care Team Providers Care Plumber Helper Name Role Phone Kelly Roberts RN Unavailable [phone] Reason for Visit * Reason Comments Basal Cell Carcinoma left neck Encounter Details Date Type Department Care Team (Latest Contact Info) Description 08/29/2021 9:30 AM CDT Procedure visit [facility] [address] [place], [place] [id number] Cary Olivo MD [address] [facility] [address] [place] [address] Basal cell carcinoma (BCC) of left side of neck Social History Tobacco Use Types Packs/Day Years [...] Sign Reading Time Taken Comments Blood Pressure 150/76 08/29/2021 9:59 AM CDT Pulse 73 08/29/2021 9:59 AM CDT Temperature - - Respiratory Rate - - Oxygen Saturation - - Inhaled Oxygen Concentration - - Weight 87.5 kg (193 lb) 08/29/2021 9:59 AM CDT Height 182.9 cm (6') 08/29/2021 9:59 AM CDT Body Mass Index 26.18 08/29/2021 9:59 AM CDT documented in this encounter Functional [...] this encounter Patient Instructions * Patient Instructions* Regla Turpin - 08/29/2021 11:56 AM CDT Stitches: will dissolve Follow up: * If you have a problem or concern post-operatively, please call ahead to schedule an appointment. We may not be able to accommodate a walk-in appointment * Please continue wound care below twice a day for one week WOUND CARE INSTRUCTIONS 1. Leave your pressure bandage on for 48 hours. You may bathe/shower, but do NOT get the bandage wet. You will not need to perform any wound care until this bandage is removed. 2. When you initially begin wound care, you may let the water hit the pressure bandage to loosen itfrom your skin. The bandage should be removed before bathing/showering. 3. Wash your hands thoroughly before starting wound care. Do not use the same cloth/rag/sponge you would use to wash the remainder of your body as this may introduce bacteria from other areas of yourbody and possibly cause infection at the surgical site. 4. You will clean the surgery site twice daily with a mild liquid soap (i.e. Dove, Cetaphil, Baby shampoo). Do not use anything antibacterial, as this will dry the surgical site. 5. Dry the area with a fresh Q-tip or clean gauze. 6. Apply a generous amount of Vaseline or Aquaphor to the wound/sutures. Do not use Neosporin, or any antibacterial ointment as this is likely to cause an allergic reaction to the site. If you are not sure of the sanitary condition of any Vaseline/Aquaphor you may have at home, please purchase a new jar or tube. DO NOT DOUBLE-DIP Q-tips into the ointment and DO NOT USE YOUR FINGERS. This is essential in helping to prevent cross contamination and infection. 7. Cut a non-stick bandage pad to fit the area and then use bandaging tape to hold in place. Paper tape is a good option for very sensitive skin types. 8. You will be using mild soap, clean tap water, Vaseline/Aquaphor, and a bandage twice a day for 1week 9. After surgery, you may restart all your medications that were stopped (if applicable). If your surgical site is on your forehead, or close to the eye area, you will want to use ice packs. Please apply ice packs every hour for 20 minutes while awake. Sleep elevated for the next two nights as this will help decrease the amount of bruising and swelling you will notice the evening after surgery and into the next morning. For surgical areas on your arms/legs, try to keep the area elevated above the level of your heart as much as possible. This will help to decrease swelling. Frequent gentle rubbing of your fingers or toes in that area will prevent numbness and stiffness. If located on your arm/hand, we ask that you do not lift anything heavier than a gallon of milk fortwo weeks. Keep the arm/hand elevated to help decrease swelling in the wrist and fingers. Do not wear jewelry as impending swelling could cause discomfort. For surgical areas on your head/neck, do not bend over or stoop down. Do not drop your head, as this increases blood to the surgical area and can induce bleeding. Refrain from use of hair care products, hair coloring, or permanents until sutures have been removed and/or the surgical site has completely healed. BATHING: Begin bathing/showering once pressure bandage comes off. Do not let direct water pressure hit the surgery site. It is okay if it gets wet, just let the water roll over. PAIN: Tylenol only for the first 24 hours. Do not take any aspirin, Ibuprofen, Motrin or Aleve as this may increase your risk for bleeding for the first 24 hours. Significant pain/discomfort is unusual and should be reported to our office. SIGNS OF POSSIBLE INFECTION: Significant redness surrounding the surgery site that is warm to the touch, persistent or worsening pain, fever or flu-like symptoms, increased swelling to the area, thick yellow discharge, and/or foul odor. Please call our office as soon as possible if you experience any these symptoms as you may have an infection. BLEEDING: A mild amount of blood on the bandage is expected. Soaking through the bandage is not normal. If this occurs, remove the soiled bandage and apply uninterrupted pressure for 20 minutes by the clock. If this does not stop the bleeding, hold pressure for another 20 minutes with an ice pack. If bleeding stops, apply a bandage per wound care instructions. IF THE BLEEDING PERSISTS, PLEASE CALL OUR OFFICE. Normal office hours: [phone] or [phone] After hours and holidays Electrical Engineer electronic publications specialist: [phone] Scars may take 12 months or longer to mature, although a great deal of improvement occurs in the first 3 months. If you have concerns about your scar after 3 months, please call our office to schedule a follow up appointment. There are options available to help improve the appearance. If you have concerns about how your wound is healing and would like to send us a photo, please email us at [email or web address]. Please include your name and date of in the email. documented in this encounter Progress Notes * Carly Gallego MD - 08/29/2021 11:57 AM CDT Mohs Consult Note Tumor type: Basal cell carcinoma Location: L neck Referring physician: Dr. Martinez Recurrent skin cancer: no Prior Treatment: no Preoperative Risk Factors: Current Anticoagulants: none Patient reports use of antibiotic for prior procedure: no Endocarditis / Rheumatic Fever hx: no Vascular graft: no Immunocompromised: no Prosthetic joint: no Congenital heart defect: no Prosthetic heart valve: no Diabetic: yes Transplant: Cardiac devices: Stent: no. Pacemaker: no. Defibrillator: no Transmissible Diseases: HIV no HepC no no Patient reports prior problem with local anesthesia no Exam: Limited skin exam is normal except for a 1.0 cm pink pearly papule located on the L neck . Pathologic Findings: B Diagnosis: basal cell carcinoma Assessment and Plan: Treatment Options: The various treatment options for skin cancer removal were reviewed with the patient in detail. These include Mohs surgery with its high cure rate, excision, destructive treatment,radiation therapy, and various topical therapies. Given the indications and high cure rate, the patient has agreed to proceed with Mohs. Risks and Benefits: The rationale for Mohs was explained to the patient. The risks and benefits to therapy were discussed in detail. Specifically, the risks of infection, scarring, bleeding, dehiscence, hematoma, prolonged wound healing, incomplete removal, allergy to anesthesia, nerve injury, inability to clear the tumor, and recurrence were addressed. The treatment site was clearly identified and confirmed by the patient. Diagnosis: basal cell carcinoma, left neck Plan: Mohs Micrographic Surgery today Indication for Mohs: Clinical area critical for tissue conservation (Area M: cheeks, forehead, scalp, neck, jawline, pretibial surface) Mohs AUC Score: 8 Proposed closure: complex Indication for antibiotics: no Current Anticoagulants: none Carly Gallego MD Dermatology Resident PGY-3 Associated attestation - Cary Olivo MD - 09/01/2021 12:00 PM CDT I have seen and examined the patient with the resident and I agree with the findings and plan of care as documented by the resident. Date of Service: 08.29.2021 Cary Olivo MD documented in this encounter Procedure Notes * Prema Mayfield - 08/29/2021 1:45 PM CDTAssociated Order(s): PROC MOHS MICRO SURGERY TRUNK/ARM/LEG Procedure(s): [facility] CHMS[facility] MOHS MG TQ H/N/H/F/G 1ST STAG 5 BLOC; [facility] CHMS[facility] MOHS MG TQ H/N/H/F/G EA ADDL STAG; MN REPR CMPL WND HEAD,FAC,HAND 2.6-7.5 Pre-Procedure Diagnose(s): Basal cell carcinoma (BCC) of left side of neck Mohs Micrographic Surgery Operative Note Procedure: Mohs micrographic surgery Date of service: 08/29/2021 Location: left inferior lateral neck Preop diagnosis: Basal cell carcinoma Postop diagnosis: Same Mohs AUC score: 8 Number of stages: 2 Preop size: 1.1 x 0.9 cm Postop size: 1.8x1.8 cm Depth of final defect: adipose Previous dermpath accession #: [id number] Repair type: second intent Mohs accession [...] and consent was obtained. The risks, benefits andalternatives to therapy were discussed in detail. Specifically, the risks of infection, scarring, bleeding, prolonged wound healing, incomplete removal, allergy to anesthesia, nerve injury and recurrence were addressed. Prior to the procedure, the treatment site was clearly identified and confirmedby the patient. All components of [place] Protocol/PAUSE Rule completed. STAGE I: The patient was placed on the operating table. The cancer was identified and outlined. The entire surgical field was prepped with hibiclens. The surgical site was anesthetized using Lidocaine 1% withepinephrine 1:100,000 buffered with sodium bicarbonate 8.4% in [...] sections examined. No additional histologic findings appreciated. [facility] CLIA # [id number] Mohs Incinerator Plant Laborer: Cary Olivo MD REPAIR: Complex Primary Surgeon: [...] were carefully placed for maximum eversion and meticulouswound edge approximation. Careful attention was paid to [...] and documentation used to initiate this operative report.I entered the information in our [employer] DocFlowsheet with the information provided by Dr. Olivo on her handwritten, paper format, surgical worksheet, which was then used to initiate the create of this note. Dr. Olivo then reviewed and edited the note as needed to complete the note. Prema TRINH I have reviewed the note, edited it as necessary and performed the entire procedure. Cary Olivo MD Senior Construction Project Manager documented in this encounter Plan of Treatment Not on file documented as of this encounter Procedures Procedure Name Priority Date/Time Associated Diagnosis Comments [facility] CHMSRG MOHS MG TQ H/N/H/F/G 1ST STAG 5 BLOC Routine 08/29/2021 1:45 PM CDT Basal cell carcinoma (BCC) of left side of neck [facility] CHMS[facility] MOHS MG TQ H/N/H/F/G EA ADDL STAG Routine 08/29/2021 1:45 PM CDT Basal cell carcinoma (BCC) of left side of neck MN REPR CMPL WND HEAD,FAC,HAND 2.6-7.5 Routine 08/29/2021 1:45 PM CDT Basal cell carcinoma (BCC) of left side of neck documented in this encounter Results * MN REPR CMPL WND HEAD,FAC,HAND 2.6-7.5, [facility] MOHS MG TQ H/N/H/F/G EA ADDL STAG, [place] CHMSRG MOHSMG TQ H/N/H/F/G 1ST STAG 5 [...] final defect: adipose Previous dermpath accession #: [id number] Repair type: second intent Mohs accession [...] confirmed by the patient. All components of [place] Protocol/PAUSE Rule completed. STAGE I: The patient [...] sections examined. No additional histologic findings appreciated. [facility] [id number] Mohs Incinerator Plant Laborer: Cary Olivo MD REPAIR: Complex Primary Surgeon: [...] report. I entered the information in our [employer] DocFlowsheet with the information provided by Dr. Olivo on her handwritten, paper format, surgical worksheet, which was then used to initiate the create of this note. Dr. Olivo then reviewed and edited the note as needed to complete the note. Prema TRINH I have reviewed the note, edited it as necessary and performed the entire procedure. Cary Olivo MD Senior Construction Project Manager Cary Olivo MD PROCEDURE/MINOR SURG ICAL ORDERABLES documented in this encounter Visit Diagnoses Diagnosis Basal cell carcinoma (BCC) of left side of neck- Primary documented in this encounter Care Teams Plumber Helper Relationship Specialty Start Date End Date Kelly Roberts, CHEY [employer] 12/28/14 documented as of this encounter
--- OUTSIDE RECORDS SUMMARY | 2024-11-15 03:18 | XMS_ITS | Encounter Summary ---
Author Organization [facility] Health Address [address] [place] [address] Care Team Providers Care Silversmith Apprentice Name Role Phone Kelly Roberts RN Unavailable [phone] Reason for Visit * Reason Comments Establish Care re established care Encounter Details Date Type Department Care Team (Late st Contact Info) Description 05/30/2021 12:20 PM CDT Office Visit [facility] [address] [address] [place] [address] [address] Overweight (BMI 25.0-29.9) (Primary Dx); History of obesity in adulthood; Diarrhea, unspecified type Social History Tobacco Use Types Packs/Day Years [...] Sign Reading Time Taken Comments Blood Pressure 130/84 05/30/2021 12:16 PM CDT Pulse 85 05/30/2021 12:16 PM CDT Temperature 36.9 ??C (98.4 ??F) 05/30/2021 12:16 PM C DT Respiratory Rate 20 05/30/2021 12:16 PM CDT Oxygen Saturation 99% 05/30/2021 12:16 PM CDT Inhaled Oxygen Concentration - - Weight 96.6 kg (213 lb) 05/30/2021 12:16 PM CDT Height 182.9 cm (6') 05/30/2021 12:16 PM CDT Body Mass Index 28.89 05/30/2021 12:16 PM CDT documented in this encounter Functional Status [...] * Patient Instructions* Iwona Lorenz MD - 05/30/2021 12:41 PM CDT Hot Packer Restart Saxenda. documented in this encounter Progress Notes * Iwona Lorenz MD - 05/30/2021 12:20 PM CDT Bariatric FollowUp Visit Chief Complaint: Hx Obesity HPI: The patient is here for follow-up for medical wt loss. Adherence to plan is Fair. Dietary and Exercise/Physical activity change from previous visit: Weight change: gain of 24 pounds 06/14: 189 lb Dropped weight on toe and had open fracture in Jul so activity limited. Having elbow surgery. Gained 20 pounds in 5-6 weeks and having carb cravings in Oct/Nov 2020. Ran out of Saxenda last year. Would like to restart Changes in medical history since prior visit: Got Covid; asymptomatic. Got vaccine. Had colonoscopy and diverticulosis. No other cause of alternating diarrhea/constipation. Sxs persisted off Saxenda. Mother w/hx of collagenous colitis Review of Systems: No light headedness, dizziness or excessive fatigue. No chest pain, palpitations or leg swelling No abdominal cramps,+ diarrhea, + constipation No leg cramps, calf pain, ulcers or cold extremities. No mood change, unusual feelings of anxiety, depression or irritability No change in sleeping habits. OBJECTIVE: BP 130/84 Pulse 85 Temp 98.4 ??F (36.9 ??C) Resp 20 Ht 6' (1.829 m) Wt 213 lb (96.6 kg) SpO2 99% BMI 28.89 kg/d7Xzehrw: 6' (182.9 cm) Body mass index is 28.89 kg/m??. CrCl cannot be calculated (Patient's most recent lab result is older than the maximum 15 days allowed.). Wt Readings from Last 3 Encounters: 05/30/21 213 lb (96.6 kg) 08/09/20 186 lb (84.4 kg) 06/14/20 189 lb (85.7 kg) BP Readings from Last 3 Encounters: 05/30/21 130/84 12/22/19 140/62 10/26/19 146/78 Physical exam: General appearance - alert, oriented, no distress Mood within normal limits, No nystagmus Normal skin turgor Labs/studies reviewed: CMP from outside provider 11/22/20 wnl Allergies Allergen Reactions ??? Morphine Nausea and/or [...] hundred) Each by Injection route once daily 100 Each 1 ??? Liraglutide -Weight Management (SAXENDA) 18 MG/3ML 0.6 mg SQ daily X 7 days then 1.2 mg SQ daily X 7 days then 1.8 mg SQ daily X 7 days then 2.4 mg SQ daily X 7 days then 3.0 mg SQ daily 5 Pen 0 ??? methylphenidate CR (CONCERTA) 18 MG tablet [...] PO Q 8 H PRN 0 ??? sucralfate (CARAFATE) 1 GM tablet [...] History of obesity in adulthood Z86.39 3. Diarrhea, unspecified type R19.7 AMB REFERRAL TO GASTROENTEROLOGY - Pharmaceutical interventions: ___x__ restart Saxenda. - The patient is agreeable. Plan for ongoing weight management (marked with X): ___x__ Lead Sales Consultant care is recommended (1200 calories/day diet to continue / start) The patient received detailed Menu plan for the daily calories recommended. ___x__ Meal Replacement Products (1 protein shake) per day as part of the recommended diet Licensed Professional Counselor evaluation recommended Physical Activity counseling is recommended. Information provided. __x___ Discussed low/moderate impact exercise options. Specific examples and recommendations were provide. __x___ Activity of 20-40 minutes of fast pace walking is recommended 5-7 days of the week. ___x__ Specific Behavioral modification suggestions and written plan were provided for the patient. __X___ Updated metabolic calculation sheet prepared and discussed at length with the patient. ___x__ Personalized Diet plan was provided to the patient. ___x__ Follow up with Dr. Lorenz in 6 weeks. Iwona Lorenz MD 06/06/2021 documented in this encounter Plan of Treatment Not on file documented as of this encounter Visit Diagnoses Diagnosis Overweight (BMI 25.0-29.9)- Primary Overweight History of obesity in adulthood Diarrhea, unspecified type documented in this encounter Care Teams Silversmith Apprentice Relationship Specialty Start Date End Date Kelly Roberts, RN Upper Shaper 12/28/14 documented as of this encounter
--- OUTSIDE RECORDS SUMMARY | 2024-11-15 03:18 | XMS_ITS | Encounter Summary ---
Author Organization [facility] Health Address [address] [place] [address] Care Team Providers Care Affirmative Action Officer Name Role Phone Kelly Roberts RN Unavailable [phone] Reason for Visit * Reason Comments Post-Op non-surg Encounter Details Date Type Department Care Team (Late st Contact Info) Description 12/22/2019 11:00 AM CALL OR CONTACT CENTRE MANAGER Office Visit [facility] Weight Management Services [address] [address] [place] [address] [address] History of obesity in adulthood (Primary Dx); Overweight (BMI 25.0-29.9) Social History Tobacco Use Types Packs/Day Years [...] Sign Reading Time Taken Comments Blood Pressure 140/62 12/22/2019 11:07 AM CALL OR CONTACT CENTRE MANAGER Pulse 98 12/22/2019 11:07 AM CALL OR CONTACT CENTRE MANAGER Temperature - - Respiratory Rate - - Oxygen Saturation - - Inhaled Oxygen Concentration - - Weight 93.6 kg (206 lb 6.4 oz) 12/22/2019 11:07 AM CALL OR CONTACT CENTRE MANAGER Height 182.2 cm (5' 11.75 ) 12/22/2019 11:07 AM CALL OR CONTACT CENTRE MANAGER Body Mass Index 28.19 12/22/2019 11:07 AM CALL OR CONTACT CENTRE MANAGER documented in this encounter Functional Status Functional [...] * Patient Instructions* Iwona Lorenz MD - 12/22/2019 11:18 AM CALL OR CONTACT CENTRE MANAGER Adding fiber daily (1/2 dose of fiber). Send labs from PCP. OR CONTACT CENTRE MANAGER documented in this encounter Progress Notes * Iwona Lorenz MD - 12/22/2019 11:10 AM CST Bariatric FollowUp Visit Chief Complaint: Hx of Obesity with overweight HPI: The patient is here for follow-up for medical wt loss. Adherence to plan is Fair. Dietary and Exercise/Physical activity change from previous visit: Weight change: loss of 12 pounds Got new job; feeling exhausted. Feeling cold. Was not consistently taking iron. Not feeling hungry in am at times. Trying to eat more protein. Not logging food. Went to gym couple of days; hurt elbow and seeing therapist at work. Up to 3.0 mg Saxenda yesterday. Reports constipation. Not feeling hungry; feeling ill when eating sugar. Night eating a little better. PCP has labs ordered. Changes in medical history since prior visit: Having uterine ablation. Review of Systems: No light headedness, dizziness or excessive fatigue. No chest pain, palpitations or leg swelling No abdominal cramps, no diarrhea, No leg cramps, calf pain, ulcers or cold extremities. No mood change, unusual feelings of anxiety, depression or irritability No change in sleeping habits. OBJECTIVE: BP 140/62 Pulse 98 Ht 5' 11.75 (1.822 m) Wt 206 lb 6.4 oz (93.6 kg) BMI 28.19 kg/t3Ghyddv: 5' 11.75 (182.2 cm) Body mass index is 28.19 kg/m??. CrCl cannot be calculated (Patient's most recent lab result is older than the maximum 15 days allowed.). Wt Readings from Last 3 Encounters: 12/22/19 206 lb 6.4 oz (93.6 kg) 10/26/19 218 lb 6.4 oz (99.1 kg) 07/30/19 220 lb 3.2 oz (99.9 kg) BP Readings from Last 3 Encounters: 12/22/19 140/62 10/26/19 146/78 07/30/19 128/84 Physical exam: General appearance - alert, oriented, no distress Mood within normal limits, No nystagmus Chest - clear to ausculation Heart - Regular rate and rhythm Normal skin turgor Allergies Allergen Reactions ??? Morphine Nausea and/or [...] affected area 2times daily as needed. ??? Liraglutide -Weight Management (SAXENDA) 18 MG/3ML 0.6 mg SQ daily X 7 days, then 1.2 mg SQ daily X 7 days, then 1.8 mg SQ daily X 7 days, then 2.4 mg SQ daily X 7 days then 3 mg SQ daily 5 Pen 0 ??? [...] medications for this visit. Impression/Plan: ICD-10-CM 1. History of obesity in adulthood Z86.39 2. Overweight (BMI 25.0-29.9) E66.3 - Pharmaceutical interventions: ___x__ continue Saxenda at 3 mg - The patient is agreeable. Add fiber for constipation Plan for ongoing weight management (marked with X): ___x__ Chief Design Branch care is recommended (1200 calories/day diet to [...] This encounter with the patient lasted over 15 min, more than 50% of the time was in direct [id number] counseling with the patient regarding increased physical activity, reduced caloric intake, healthy diet and behavioral modifications. Iwona Lorenz MD 12/30/2019 OR CONTACT CENTRE MANAGER documented in this encounter Plan of Treatment Not on file documented as of this encounter Visit Diagnoses Diagnosis History of obesity in adulthood- Primary Overweight (BMI 25.0-29.9) Overweight documented in this encounter Care Teams Affirmative Action Officer Relationship Specialty Start Date End Date Kelly Roberts, RN Hebrew Teacher 12/28/14 documented as of this encounter
--- OUTSIDE RECORDS SUMMARY | 2024-11-15 03:18 | XMS_ITS | Encounter Summary ---
Author Organization [facility] Address [address] [facility] [place] [address] Care Team Providers Care Laboratory Apparatus Glass Blower Name Role Phone Kelly Roberts RN Unavailable [phone] Reason for Visit * Reason Comments Follow-up non surg f/u Encounter Details Date Type Department Care Team (Late st Contact Info) Description 08/08/2021 12:00 PM CDT Office Visit [facility] Weight Management Services [address] [address] [place] [address] [address] History of obesity in adulthood (Primary Dx); Overweight (BMI 25.0-29.9); History of sleeve gastrectomy Social History Tobacco [...] Sign Reading Time Taken Comments Blood Pressure 122/84 08/08/2021 11:54 AM CDT Pulse 78 08/08/2021 11:54 AM CDT Temperature 36.9 ??C (98.5 ??F) 08/08/2021 11:54 AM C DT Respiratory Rate 20 08/08/2021 11:54 AM CDT Oxygen Saturation 99% 08/08/2021 11:54 AM CDT Inhaled Oxygen Concentration - - Weight 90.9 kg (200 lb 6.4 oz) 08/08/2021 11:54 AM CDT Height 182.9 cm (6') 08/08/2021 11:54 AM CDT Body Mass Index 27.18 08/08/2021 11:54 AM CDT documented in this [...] * Patient Instructions* Iwona Lorenz MD - 08/08/2021 12:13 PM CDT Thinking About physical activity/exercise documented in this encounter Progress Notes * Iwona Lorenz MD - 08/08/2021 12:00 PM CDT Bariatric FollowUp Visit Chief Complaint: Hx of Obesity HPI: The patient is here for follow-up for medical wt loss. Adherence to plan is Good. Dietary and Exercise/Physical activity change from previous visit: Weight change: loss of 13 pounds 05/30: 213 Weighed this am and 196 Not gone above 2.4 mg with Saxenda. Notices stool changes with higher dose. Has an appt in August with GI. Happening when not on Saxenda. Having to snack to not get hypoglycemic. Drinking coffee with milk in am. Having eggs with guac or veggies in AM. Has membership to gym; decreased motivation. Getting 10,000 steps per day. Changes in medical history since prior visit: none. Review of Systems: No light headedness, dizziness or excessive fatigue. No chest pain, palpitations or leg swelling No abdominal cramps, no diarrhea, no constipation No leg cramps, calf pain, ulcers or cold extremities. No mood change, unusual feelings of anxiety, depression or irritability No change in sleeping habits. OBJECTIVE: BP 122/84 Pulse 78 Temp 98.5 ??F (36.9 ??C) Resp 20 Ht 6' (1.829 m) Wt 200 lb 6.4 oz (90.9 kg) JxK250% BMI 27.18 kg/a3Tgspdg: 6' (182.9 cm) Body mass index is 27.18 kg/m??. CrCl cannot be calculated (Patient's most recent lab result is older than the maximum 15 days allowed.). Wt Readings from Last 3 Encounters: 08/08/21 200 lb 6.4 oz (90.9 kg) 05/30/21 213 lb (96.6 kg) 08/09/20 186 lb (84.4 kg) BP Readings from Last 3 Encounters: 08/08/21 122/84 05/30/21 130/84 12/22/19 140/62 Physical exam: General appearance - alert, oriented, no distress Mood within normal limits, No nystagmus Normal skin turgor Labs/studies reviewed: none Allergies Allergen Reactions ??? [...] MG/3ML Inject 3 mg subcutaneously once daily 3 mL 1 ??? methylphenidate CR (CONCERTA) 18 MG tablet [...] adulthood Z86.39 2. Overweight (BMI 25.0-29.9) E66.3 3. History of sleeve gastrectomy Z90.3 - Continue current meds. - Continue Food journal. - encouraged to maintain at least physical activity to 20-30 minutes of walking or equivalent activity 4-5 days of the weeks with self-monitoring. Pharmaceutical interventions: ___x__ cont Saxenda 2.4 mg daily - The patient is agreeable. Plan for ongoing weight management (marked with X): ___x__ Elevator Starter care is recommended (1200 calories/day diet to [...] written plan were provided for the patient. Discussed need for PA for weight maintenance __X___ Updated metabolic calculation sheet prepared and discussed at length with the patient. ___x__ Personalized Diet plan was provided to the patient. ___x__ Follow up with Dr. Lorenz in 6 weeks. Iwona Lorenz MD 08/15/2021 documented in this encounter Plan of Treatment Not on file documented as of this encounter Visit Diagnoses Diagnosis History of obesity in adulthood- Primary Overweight (BMI 25.0-29.9) Overweight History of sleeve gastrectomy documented in this encounter Care Teams Laboratory Apparatus Glass Blower Relationship Specialty Start Date End Date Kelly Roberts, RN Intel Analyst 12/28/14 documented as of this encounter
--- OUTSIDE RECORDS SUMMARY | 2024-11-15 03:18 | XMS_ITS | Encounter Summary ---
Author Organization [facility] Health Address [address] [place] [address] Care Team Providers Care Electric Organ Inspector And Repairer Name Role Phone Kelly Roberts RN Unavailable [phone] Reason for Visit * Reason Comments Refill Request Encounter Details Date Type Department Care Team (Late st Contact Info) Description 07/29/2019 Refill [facility] Weight Management Services [address] [address] [address], [facility] [address] [facility] [address] [place] [address] Refill Request Social History Tobacco [...] on filedocumented in this encounter Care Teams Electric Organ Inspector And Repairer Relationship Specialty Start Date End Date Kelly Roberts RN Hand Crown Pouncer 12/28/14 documented as of this encounter
--- OUTSIDE RECORDS SUMMARY | 2024-11-15 03:18 | XMS_ITS | Encounter Summary ---
Author Organization [facility] Health Address [address] [place] [address] Care Team Providers Care Supervisor Ornamental Ironworking Name Role Phone Kelly Roberts RN Unavailable [phone] Encounter Details Date Type Department Care Team (Late st Contact Info) Description 10/26/2019 Orders Only [facility] Weight Management Services [address] [facility] [address] [place] [address] Suzette Wiley, CÉSAR-CIRCULATOR [address] [facility] [address] [place] [address] Heartburn ; Bariatric surgery status Social History Tobacco Use Types Packs/Day Years [...] as of this encounter Visit Diagnoses Diagnosis Heartburn- Primary Bariatric surgery status documented in this encounter Care Teams Supervisor Ornamental Ironworking Relationship Specialty Start Date End Date Kelly Roberts RN Medical Research Associate 12/28/14 documented as of this encounter
--- OUTSIDE RECORDS SUMMARY | 2024-11-15 03:18 | XMS_ITS | Encounter Summary ---
Author Organization [facility] Health Address [address] [facility] [place] [address] Care Team Providers Care Community Relations Liaison Name Role Phone Kelly Roberts RN Unavailable [phone] Reason for Visit * Reason Comments Refill Request Encounter Details Date Type Department Care Team (Late st Contact Info) Description 06/15/2020 Refill [facility] Weight Management Services [address] [place] [address] [place] [address] [address] Refill Request Social History Tobacco [...] on filedocumented in this encounter Care Teams Community Relations Liaison Relationship Specialty Start Date End Date Kelly Roberts RN Diesel Mechanic 12/28/14 documented as of this encounter
--- OUTSIDE RECORDS SUMMARY | 2024-11-15 03:18 | XMS_ITS | Encounter Summary ---
Author Organization [facility] Health Address [address] [facility] [place] [address] Care Team Providers Care Chief Internal Auditor Name Role Phone Kelly Roberts RN Unavailable [phone] Reason for Visit * Reason Onset Date Comments Encounter Opened In Error 12/24/2019 Encounter Details Date Type Department Care Team (Late st Contact Info) Description 12/24/2019 Orders Only [facility] Weight Management Services [address] [place] [address] Alma Carter RN ERRONEOUS ENCOUNTER--DISREGARD Social History Tobacco Use Types [...] Progress Notes * Alma Carter RN - 12/24/2019 11:13 AM CST Finesse Ramirez encounter was opened in error. Please disregard any activity associated with this encounter. TELLER documented in this encounter Plan of Treatment Not on file documented as of this encounter Visit Diagnoses Diagnosis ERRONEOUS ENCOUNTER--DISREGARD- Primary documented in this encounter Care Teams Chief Internal Auditor Relationship Specialty Start Date End Date Kelly Roberts, RN Financial Reporting Manager 12/28/14 documented as of this encounter
--- OUTSIDE RECORDS SUMMARY | 2024-11-15 03:18 | XMS_ITS | Encounter Summary ---
Author Organization [facility] Health Address [address] [facility] [place] [address] Care Team Providers Care Precision Dyer Name Role Phone Kelly Roberts RN Unavailable [phone] Reason for Visit * Reason Onset Date Comments Appointment 10/24/2021 Encounter Details Date Type Department Care Team (Late st Contact Info) Description 10/24/2021 Telephone [facility] Weight Management Services [address] [address] [place] [address] [address] Appointment Social History Tobacco Use [...] COVID-19? Unable to assess 10/10/2021 9:29 AM TITLE SEARCH MANAGER documented as of this encounter Functional Status [...] encounter Miscellaneous Notes * Telephone Encounter - Frida Jones - 10/24/2021 8:32 AM CST lvm to triage pt for today visit E SEARCH MANAGER documented in this encounter Plan of Treatment Not on file documented as of this encounter Visit Diagnoses Not on filedocumented in this encounter Care Teams Precision Dyer Relationship Specialty Start Date End Date Kelly Roberts RN Loan Collector 12/28/14 documented as of this encounter
--- OUTSIDE RECORDS SUMMARY | 2024-11-15 03:18 | XMS_ITS | Encounter Summary ---
Author Organization [facility] Health Address [address] [facility] [place] [address] Care Team Providers Care Nitroglycerin Supervisor Name Role Phone Kelly Roberts RN Unavailable [phone] Encounter Details Date Type Department Care Team (Late st Contact Info) Description 04/21/2019 Orders Only [facility] Weight Management Services [address] [facility] [address] [place] [address] [address], [facility] [address] [facility] [address] [place] [address] Pain of upper abdomen ; Bariatric surgery status Social History Tobacco [...] as of this encounter Progress Notes * Ct Collado APRN-CNP - 04/21/2019 10:[address] Herring has reviewed CT abd/pelvis. Results are normal. Dr. Herring recommends an UGI study andesophageal manometry study. This was discussed with the patient. Will send My chart with phone number to schedule the UGI. Patient asking about phentermine refill. Patient to be placed on Dr. Santana for tomorrow at noon. All questions were discussed. documented in this encounter Plan of Treatment Not on file documented as of this encounter Visit Diagnoses Diagnosis Pain of upper abdomen- Primary Abdominal pain, other specified site Bariatric surgery status documented in this encounter Care Teams Nitroglycerin Supervisor Relationship Specialty Start Date End Date Kelly Roberts, RN Auto Bumper Straightener 12/28/14 documented as of this encounter
--- OUTSIDE RECORDS SUMMARY | 2024-11-15 03:18 | XMS_ITS | Encounter Summary ---
Author Organization [facility] Health Address [address] [facility] [place] [address] Care Team Providers Care Telecommunications Technician Name Role Phone Kelly Roberts RN Unavailable [phone] Reason for Visit * Reason Onset Date Comments Medication Issue 11/23/2019 Encounter Details Date Type Department Care Team (Late st Contact Info) Description 11/23/2019 Telephone [facility] Weight Management Services [address] [address] [place] [address] [address] Medication Issue Social History Tobacco Use Types Packs/Day Years [...] on filedocumented in this encounter Care Teams Telecommunications Technician Relationship Specialty Start Date End Date Kelly Roberts RN Ground Defence Officer 12/28/14 documented as of this encounter
--- OUTSIDE RECORDS SUMMARY | 2024-11-15 03:18 | XMS_ITS | Encounter Summary ---
Author Organization [facility] Health Address [address] [facility] [place] [address] Care Team Providers Care Choreography Director Name Role Phone Kelly Roberts RN Unavailable [phone] Encounter Details Date Type Department Care Team (Late st Contact Info) Description 10/27/2019 Orders Only [facility] Weight Management Services [address] [facility], [address] [place] [address] [place] [address] [facility] [address] [place] [address] Heartburn; Bariatric surgery status Social History Tobacco Use [...] as of this encounter Visit Diagnoses Diagnosis Heartburn Bariatric surgery status documented in this encounter Care Teams Choreography Director Relationship Specialty Start Date End Date Kelly Roberts, RN Merchandise Flow Associate 12/28/14 documented as of this encounter
--- OUTSIDE RECORDS SUMMARY | 2024-11-15 03:18 | XMS_ITS | Encounter Summary ---
Author Organization [facility] Health Address [address] [facility] [place] [address] Care Team Providers Care Electrical Equipment Tester Name Role Phone Kelly Roberts RN Unavailable [phone] Reason for Visit * Reason Comments Refill Request Encounter Details Date Type Department Care Team (Late st Contact Info) Description 05/15/2020 Refill [facility] Weight Management Services [id number] [place] [address] [place] [address] [address] Refill Request Social History Tobacco [...] on filedocumented in this encounter Care Teams Electrical Equipment Tester Relationship Specialty Start Date End Date Kelly Roberts RN Catalytic Case Operator 12/28/14 documented as of this encounter
--- OUTSIDE RECORDS SUMMARY | 2024-11-15 03:18 | XMS_ITS | Encounter Summary ---
Author Organization [facility] Health Address [address] [place] [address] Care Team Providers Care Multiple Games Dealer Name Role Phone Kelly Roberts RN Unavailable [phone] Reason for Visit * Reason Comments Follow-up med questions Encounter Details Date Type Department Care Team (Late st Contact Info) Description 07/30/2019 12:40 PM CDT Office Visit [facility] Weight Management Services [address] [facility] [address] [place] [address] [place] [address] [facility] [address] [place] [address] Pain of upper abdomen (Primary Dx); Bariatric surgery status; Weight gain Social History Tobacco Use Types [...] Sign Reading Time Taken Comments Blood Pressure 128/84 07/30/2019 12:43 PM CDT Pulse - - Temperature - - Respiratory Rate - - Oxygen Saturation - - Inhaled Oxygen Concentration - - Weight 99.9 kg (220 lb 3.2 oz) 07/30/2019 12:43 PM CDT Height 182.2 cm (5' 11.75 ) 07/30/2019 12:43 PM CDT Body Mass Index 30.07 07/30/2019 12:43 PM CDT documented in this encounter Functional [...] this encounter Patient Instructions * Patient Instructions* Rashawn Herring MD - 07/30/2019 1:40 PM CDT Pt with bilateral upper abdominal pain, heartburn and nausea ?? 1. Bilateral upper abdominal pain: - RUQ US negative - CT abdomen and pelvis without significant findings - discussed esophageal manometry but pt denies any swallowing issues so not consideration currently - sounds more musculoskeletal - recommend possible muscle relaxant trial with pcp - exercise with core body focus - discussed ?? 2. Heartburn: - cont with PPI daily - may need repeat EGD, last one was 02/2018 if symptoms do not improved ?? 3. Nausea: - antiemetics if needed ?? 4. F/u to be determined following CT abdomen and pelvis ?? 5. Weight gain:??Discussed diet modifications including ?A. Meals: 2-3 /day, 3/4 to 1 cup ?B. Protein: 50% of each meal, 80 to 100 g /day ?C. Carbohydrate limitation: <??15gm / meal ?D. Snacks: 1-2 /day, ??<??10gm carb ?C. Hydration: 45-60 oz of water /day ?E. Avoid: carbonated beverages, simple carbohydrates ?F. Exercise: ??to include light weights 3-5 times /wk for 15- 30 ? G. Appetite suppressant:??phentermine for 1 month then transition to bariatrician for durable longterm weight management 6. Refer to dr. peña or get documented in this encounter Progress Notes * Rashawn Herring MD - 07/30/2019 1:30 PM CDT Bariatric Surgery Clinic Note Finesse Ramirez Previous Procedure:?? Laparoscopic sleeve gastrectomy Laparoscopic Cholecystectomy Intraoperative esophagogastroduodenscopy??(Nima) ? Date of Procedure:?? 12/27/2014 04/06/2018 ? Initial Weight:??275 ? Todays Weight:??222 ? Weight Lost:??53 (weight loss of 13 lbs with phentermine) ?? IBW: 195 ?? EW: 80 lbs ?? EWL: 66% Chief complaint: follow up for weight gain Subjective: Here for f/u for weight gain Was followed up with her psychiatrist who did not recommend topamax due to side effects given her current medications She reports increased hunger since being off of phentermine Had lost 17 lbs with phentermine for 3 months Currently reports increased snacking tendencies due to hunger and meals slightly larger Drinks fluid first to deal with hunger with ineffective results Has gained about 3 lbs since last visit Denies CP or SOB Past Medical History: Diagnosis Date ??? Arthritis [...] LEFT ??? Rotator Cuff Repair Left 2017 Current Outpatient Medications on File Prior to Visit Medication Sig Dispense Refill ??? albuterol HFA (PROVENTIL;VENTOLIN;PROAIR) 108 (90 BASE) MCG/ACT inhaler 4 times daily as needed ??? buPROPion SR 12hr (WELLBUTRIN-SR) 150 MG tablet Take 150 mg by mouth once daily. ??? buPROPion XL 24hr (WELLBUTRIN-XL) 150 MG tablet ??? carisoprodol (SOMA) 350 MG tablet Take 1 Tab by mouth 3 times daily as needed. 80 Tab 0 ??? hydrocortisone (HYTONE) 2.5 % ointment Apply to affected area 4 times daily 20 g 0 ??? hydrocortisone butyrate 0.1 % cream - ketoconazole 2% cream 50:50 CREA Apply to affected area 2times daily as needed. ??? omeprazole (PRILOSEC) 20 MG capsule Take 1 capsule by mouth once daily 30 capsule 5 ??? omeprazole (PRILOSEC) 20 MG capsule TAKE 1 CAPSULE BY MOUTH 2 TIMES DAILY,BEFORE BREAKFAST AND SUPPER 30 capsule 5 ??? oxyCODONE (ROXICODONE) 5 MG/5ML oral solution Take 10 mL by mouth every 4 hours as needed for Pain 240 mL 0 ??? phentermine (ADIPEX-P) 37.5 MG tablet Take 1 tablet by mouth once daily 60 tablet 0 ??? sucralfate (CARAFATE) 1 GM/10ML suspension Take 10 mL by mouth 4 times daily 1200 mL 1 ??? sucralfate (CARAFATE) 1 GM/10ML suspension Take 10 mL by mouth 4 times daily 1200 mL 0 ??? topiramate (TOPAMAX) 25 MG tablet Take 1 tablet by mouth at bedtime 42 tablet 0 ??? vortioxetine (TRINTELLIX) 10 MG tablet Take 10 mg by mouth once daily No current facility-administered medications on file prior to visit. Data Vitals: 07/30/19 1243 BP: 128/84 Weight: 220 lb 3.2 oz (99.9 kg) Height: 5' 11.75 (1.822 m) Review of Systems: HEENT: Denies headaches, vision or auditory changes Cardiovascular: Denies chest pain, orthopnea or palpitations Respiratory: Denies cough, hemoptysis Gastrointestinal: Denies abdominal pain, no melena or hematemesis Genitourinary: denies hematuria, dysuria Musculoskeletal: denies muscle weakness Endocrine: Denies diabetes mellitus or thyroid issues Allergic / Immuno: Normal Neuro / Psych: denies depression, SI/SA Physical Examination: Constitutional: well-developed, well-nourished, and in no distress Head: Normocephalic and atraumatic. Eyes: EOM are normal. No scleral icterus. Neck: No tracheal deviation present. Pulmonary/Chest: Effort normal. No stridor. No respiratory distress. Abdominal: Soft. Non tender, non distended Genitourinary: no groin masses Musculoskeletal: Normal range of motion. Exhibits no tenderness. Neurological: She is alert. GCS score is 15. Skin: Skin is warm. No erythema. Psychiatric: Mood and affect normal. Assessment/Plan: Pt with bilateral upper abdominal pain, heartburn and nausea ?? 1. Bilateral upper abdominal pain: - RUQ US negative - CT abdomen and pelvis without significant findings - discussed esophageal manometry but pt denies any swallowing issues so not consideration currently - sounds more musculoskeletal - recommend possible muscle relaxant trial with pcp - exercise with core body focus - discussed ?? 2. Heartburn: - cont with PPI daily - may need repeat EGD, last one was 02/2018 if symptoms do not improved ?? 3. Nausea: - antiemetics if needed ?? 4. F/u to be determined following CT abdomen and pelvis ?? 5. Weight gain:??Discussed diet modifications including ?A. Meals: 2-3 /day, 01/18 to 1 cup ?B. Protein: 50% of each meal, 80 to 100 g /day ?C. Carbohydrate limitation: <??15gm / meal ?D. Snacks: 1-2 /day, ??<??10gm carb ?C. Hydration: 45-60 oz of water /day ?E. Avoid: carbonated beverages, simple carbohydrates ?F. Exercise: ??to include light weights 3-5 times /wk for 15- 30 ? G. Appetite suppressant:??phentermine for 1 month then transition to bariatrician for durable longterm weight management 6. Refer to dr. peña or get Herring MD documented in this encounter Plan of Treatment Not on file documented as of this encounter Visit Diagnoses Diagnosis Pain of upper abdomen- Primary Abdominal pain, other specified site Bariatric surgery status Weight gain Abnormal weight gain documented in this encounter Care Teams Multiple Games Dealer Relationship Specialty Start Date End Date Kelly Roberts, RN Room Manager 12/28/14 documented as of this encounter
--- OUTSIDE RECORDS SUMMARY | 2024-11-15 03:18 | XMS_ITS | Encounter Summary ---
Author Organization [facility] Address [address] [facility] [place] [address] Care Team Providers Care Labourers Name Role Phone Kelly Roberts RN Unavailable [phone] Reason for Visit * Reason Onset Date Comments Results 04/19/2019 Encounter Details Date Type Department Care Team (Late st Contact Info) Description 04/19/2019 Telephone [facility] Weight Management Services [address] [address] [address], [facility] [address] [facility] [address] [place] [address] Results Social History Tobacco Use Types Packs/Day Years [...] encounter Miscellaneous Notes * Telephone Encounter - Ct Collado APRN-CNP - 04/19/2019 12:39 PM CDT I called patient regarding recent CT abd/pelvis results. Results are normal. Will discuss results with Dr. Herring later this week. There was no answer. Message left to call the office if has any additional questions. documented in this encounter Plan of Treatment Not on file documented as of this encounter Visit Diagnoses Not on filedocumented in this encounter Care Teams Labourers Relationship Specialty Start Date End Date Kelly Roberts, RN Supervisor Sulfuric Acid Plant 12/28/14 documented as of this encounter
--- OUTSIDE RECORDS SUMMARY | 2024-11-15 03:18 | XMS_ITS | Encounter Summary ---
Author Organization [facility] Health Address [address] [facility] [place] [address] Care Team Providers Care Chute Puller Name Role Phone Kelly Roberts RN Unavailable [phone] Encounter Details Date Type Department Care Team (Late st Contact Info) Description 08/17/2019 Orders Only [facility] Weight Management Services [address] [facility] [address] [place] [address] [address], [facility] [address] [facility] [address] [place] [id number] Social History Tobacco Use Types Packs/Day Years [...] on filedocumented in this encounter Care Teams Chute Puller Relationship Specialty Start Date End Date Kelly Roberts, RN Recreation Therapy Aide 12/28/14 documented as of this encounter
--- OUTSIDE RECORDS SUMMARY | 2024-11-15 03:18 | XMS_ITS | Referral Summary ---
Author Organization [facility] Webcollage Address [address] [facility] [place] [address] Care Team Providers Care Internet Assessor Name Role Phone Kelly Roberts RN Unavailable [phone] Iwona Lorenz MD Primary Care Provider [phone] Source Comments [facility],non-owned Affiliates and Associated Physician Practices is amultiple site organization consisting of ambulatory clinics and hospital sitesin [place], [place], [place] and [place]. This disclosure is being madepursuant to the Care Everywhere program and may not contain all information available regarding this patient. Last updated 18.[facility] Allergies Active Allergy Reactions Criticality Noted Date Comments Erythromycin Rash Medium 12/28/2010 Hydrocodone Nausea and/or Vomiting 12/27/2014 Morphine Nausea and/or Vomiting High 12/28/2010 Can take derivatives Gabapentin Other 01/29/2011 Restless Medications * Be aware that medications may not be up to date on this document. Always verify current medications with the patient. Medication Sig [...] Comments Blood Pressure 122/80 01/14/2022 9:35 AM GARBAGE TRUCK DRIVER Pulse 79 01/14/2022 9:35 AM GARBAGE TRUCK DRIVER Temperature 36.4 ??C (97.6 ??F) 01/14/2022 9:35 AM CS T Respiratory Rate 20 08/08/2021 11:54 AM CDT Oxygen Saturation 98% 08/28/2021 1:24 PM CDT Inhaled Oxygen Concentration - - Weight 94.4 kg (208 lb 3.2 oz) 01/14/2022 9:35 A M GARBAGE TRUCK DRIVER Height 182.9 cm (6') 01/14/2022 9:35 AM GARBAGE TRUCK DRIVER Body Mass Index 28.24 01/14/2022 9:35 AM GARBAGE TRUCK DRIVER Functional Status Functional Status Response Date of [...] person have difficulty concentrating/remembering/making decisions? No 12/29/2014 Plan of Treatment Not on file Procedures Procedure Name Priority Date/Time Associated Diagnosis [...] COMPREHENSIVE METABOLIC PANEL (03/08/2019 11:26 AM CDT) [facility] Glucose 94 65 - 99 mg/dL [...] 29 U/L [facility] Comment: Test Performed at: [facility] [address] [place] [address] ??[id number] TANIA PATEL DO,MPH Blood BLOOD SPECIMEN / Unknown 03/08/2019 11:26 AM CDT 03/08/2019 11:[address] Rae Tobias GREY TENDER-POSTAL SUPERVISOR LAB - JOSHUA BUNNY ORDERABLES [facility] [address] [place] [address] * (ABNORMAL) LIPID PROFILE (LIPID PANEL) (03/08/2019 [...] equation in the estimation of LDL-C. Hayden DE LA VEGA et al. UYEN. 2013;310(19): 3816-5787 (http://education.[employer].Otterology/faq/SGQ463) CHOL/HDLC RATIO 3.2 <5.0 (calc) [facility] Non HDL Cholesterol 133(H) <130 mg/dL (calc) [facility] Comment: For patients with diabetes plus 1 major ASCVD risk factor, treating to a non-HDL-C goal of <100 mg/dL (LDL-C of <70 mg/dL) is considered a therapeutic option. Test Performed at: [facility] [address] [place] ??[id number] TANAI PATEL DO,MPH Blood BLOOD SPECIMEN / Unknown 03/08/2019 11:26 AM CDT 03/08/2019 11:[address] [place] GREY TENDER-POSTAL SUPERVISOR LAB - JOSHUA BUNNY ORDERABLES [facility] [address] [place] [address] from Last 3 Months or Most Recently Relevant to Health Maintenance Advance Directives Documents on File Type Date Recorded Patient E Marketing Specialist Expl anation Adv Directive/Living Will/POA 01/19/2011 10:53 AM * Full Code (Latest Code Status on File) Date Activated Date Inactivated Comments 12/27/2014 5:54 PM 12/29/2014 1:07 PM * Full Code Date Activated Date Inactivated Comments 01/17/2011 8:46 PM 01/19/2011 4:15 AM Care Teams Internet Assessor Relationship Specialty [place] [address] [place] [address] PCP - General 01/08/24 Kelly Roberts RN Composition Floor Setter 12/28/14
--- OUTSIDE RECORDS SUMMARY | 2024-11-15 03:18 | XMS_ITS | Encounter Summary ---
Author Organization [facility] Health Address [address] [facility] [place] [address] Care Team Providers Care Finisher Operator Name Role Phone Kelly Roberts RN Unavailable [phone] Reason for Visit * Reason Onset Date Comments Scheduling 03/29/2019 Encounter Details Date Type Department Care Team (Late st Contact Info) Description 03/29/2019 Telephone [facility] [address] [place] [address] Alma Carter, RN Scheduling Social History Tobacco Use Types Packs/Day Years [...] encounter Miscellaneous Notes * Telephone Encounter - Alma Carter RN - 03/29/2019 11:20 AM CDT Patient called to give number for [facility] to schedule CT scan and offer help if needed. Patienttook the number for [facility] and will call herself ([phone]). documented in this encounter Plan of Treatment Not on file documented as of this encounter Visit Diagnoses Not on filedocumented in this encounter Care Teams Finisher Operator Relationship Specialty Start Date End Date Kelly Roberts, RN Nurse Discharge Planner 12/28/14 documented as of this encounter
--- OUTSIDE RECORDS SUMMARY | 2024-11-15 03:18 | XMS_ITS | Encounter Summary ---
Author Organization [facility] Health Address [address] [facility] [place] [address] Care Team Providers Care Diorama Model Maker Name Role Phone Kelly Roberts RN Unavailable [phone] Encounter Details Date Type Department Care Team (Late st Contact Info) Description 04/27/2019 Orders Only [facility] [address] [address] Suzette Wiley, CÉSAR-SOIL FERTILITY SPECIALIST [address] [facility] [address] [place] [address] Social History Tobacco Use Types Packs/Day Years [...] on filedocumented in this encounter Care Teams Diorama Model Maker Relationship Specialty Start Date End Date Kelly Roberts, RN Manager Battery 12/28/14 documented as of this encounter
--- OUTSIDE RECORDS SUMMARY | 2024-11-15 03:18 | XMS_ITS | Encounter Summary ---
Author Organization [facility] Address [address] [facility] [place] [address] Care Team Providers Care Product Development Assistant Name Role Phone Kelly Roberts RN Unavailable [phone] Reason for Visit * Reason Comments Follow-up f/u phen Encounter Details Date Type Department Care Team (Late st Contact Info) Description 04/22/2019 12:00 PM CDT Office Visit [facility] Management Services [address] [facility] [address] [place] [address] [place] [address] [facility] [address] [place] [address] Pain of upper abdomen (Primary Dx); Right upper quadrant abdominal pain; Epigastric pain; Weight gain Social History Tobacco Use Types [...] Sign Reading Time Taken Comments Blood Pressure 130/86 04/22/2019 12:00 PM CDT Pulse 80 04/22/2019 12:00 PM CDT Temperature - - Respiratory Rate - - Oxygen Saturation - - Inhaled Oxygen Concentration - - Weight 100.8 kg (222 lb 3.2 oz) 019 12:00 PM CDT Height 185.4 cm (6' 1 ) 04/22/2019 12:0 0 PM CDT Body Mass Index 29.32 04/22/2019 12:00 PM CDT documented in this encounter Functional [...] * Patient Instructions* Rashawn Herring MD - 04/22/2019 12:08 PM CDT Good response to adipex Complete 3 month treatment F/u in 8-10 weeks documented in this encounter Progress Notes * Rashawn Herring MD - 05/05/2019 9:09 PM CDT Bariatric Surgery Clinic Note ?? Finesse Ramirez ?? Previous Procedure:?? Laparoscopic sleeve gastrectomy Laparoscopic Cholecystectomy Intraoperative esophagogastroduodenscopy??(Nima) ? Date of Procedure:?? 12/27/2014 04/06/2018 ? Initial Weight:??275 ? Todays Weight:??222 ? Weight Lost:??53 IBW: 195 EW: 80 lbs EWL: 66% ?? Chief complaint: Bilateral upper abdominal pain Weight gain ?? Subjective: Here for follow up after CT scan for evaluation of bilateral upper abdominal pain The pain is sharp intermittently and throbbing, occurs daily, lasts minutes and usually associated with eating but there is no difficulty with swallowing. She has known likely hiatal hernia. No particular aggravating foods There is associated nausea no emesis The frequency has decreased since last visit CT abdomen and pelvis was negative for acute or chronic findings She does report heartburn that is intermittently controlled with daily ppi Overall stool changes reported on last visit have resolved RUQ US noted fatty liver changes Last EGD at time of cholecystectomy noted ? Hiatal hernia v proximal upper stomach narrowing ?? Past Medical History: Diagnosis Date ??? Arthritis ? Asthma ? Chest pain ? cath 06/2013 pt states ok ??? DJD (degenerative joint disease) ? Elevated cholesterol ? not on Rx ??? Fatty liver disease, nonalcoholic ? History of gastric ulcer ? Hypertension ? resolved with gastric sleeve 2015 ??? Migraine ? Motion sickness ? PCOS (polycystic ovarian syndrome) ? Pure hypercholesterolemia ? Past Surgical History: Procedure Laterality Date ??? ACL RECONSTRUCTION ?? 2008 ?? Right ??? CARPAL TUNNEL SURGERY ?? 1992 ?? Bilateral ??? Cholecystectomy, Laparoscopic ?? 04/06/2018 ?? WITH UPPER ENDO ??? Cholecystectomy, Laparoscopic ?? 04/06/2018 ?? LAPAROSCOPIC CHOLECYSTECTOMY UPPER ENDOSCOPY ??? Gastrectomy ?? 12/27/2014 ?? LAPAROSCOPIC VERTICAL SLEEVE GASTRECTOMY ??? Hammer Toe Repair ?? 1999 ?? Left foot w/ bunionectomy ??? LUMBAR SPINE FUSION ?? 01/17/2011 ?? TLIF L5-S1 MINIMALLY INVASIVE ??? OTHER SURGERY ?? 2005 ?? 6 EYE SURGERIES ??? OTHER SURGERY ?? 2008 ?? Left ANKLE reconstruction ??? OTHER SURGERY ? 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 Rotator Cuff Repair ?? 2007 ?? LEFT ??? Rotator Cuff Repair Left 2016 ?? Current Outpatient Prescriptions on File Prior to Visit Medication Sig Dispense Refill ??? albuterol HFA (PROVENTIL;VENTOLIN;PROAIR) 108 (90 BASE) MCG/ACT inhaler 4 times daily as needed? buPROPion SR 12hr (WELLBUTRIN-SR) 150 MG tablet Take 150 mg by mouth once daily. ? carisoprodol (SOMA) 350 MG tablet Take 1 Tab by mouth 3 times daily as needed. 80 Tab 0 ??? hydrocortisone (HYTONE) 2.5 % ointment Apply to affected area 4 times daily 20 g 0 ??? hydrocortisone butyrate 0.1 % cream - ketoconazole 2% cream 50:50 CREA Apply to affected area 2times daily as needed. ? omeprazole (PRILOSEC) 20 MG capsule TAKE 1 CAPSULE BY MOUTH 2 TIMES DAILY,BEFORE BREAKFAST AND SUPPER 30 capsule 5 ??? oxyCODONE (ROXICODONE) 5 MG/5ML oral solution Take 10 mL by mouth every 4 hours as needed for Pain 240 mL 0 ??? sucralfate (CARAFATE) 1 GM/10ML suspension Take 10 mL by mouth 4 times daily 1200 mL 1 ??? sucralfate (CARAFATE) 1 GM/10ML suspension Take 10 mL by mouth 4 times daily 1200 mL 0 ??? vortioxetine (TRINTELLIX) 10 MG tablet Take 10 mg by mouth once daily ? No current facility-administered medications on file prior to visit. ? Data BP 130/86 Pulse 80 Ht 6' 1 (1.854 m) Wt 222 lb 3.2 oz (100.8 kg) BMI 29.32 kg/m2 Review of Systems: HEENT: Denies headaches, vision or auditory changes Cardiovascular: Denies chest pain, orthopnea or palpitations Respiratory: Denies cough, hemoptysis Gastrointestinal: +abdominal pain, no melena or hematemesis Genitourinary: denies hematuria, dysuria Musculoskeletal: denies muscle weakness Endocrine: Denies diabetes mellitus or thyroid issues Allergic / Immuno: Normal Neuro / Psych: denies depression, SI/SA ?? Physical Examination: ?? Constitutional: well-developed, well-nourished, and in no distress [...] No erythema. Psychiatric: Mood and affect normal. ??studies reviewed CT abdomen and pelvis noted changes from sleeve gastrectomy and cholecystectomy, no free air or free fluid or small bowel dilation Assessment/Plan: Pt with bilateral upper abdominal pain, heartburn and nausea ?? 1. Bilateral upper abdominal pain: - RUQ US negative - CT abdomen and pelvis without significant findings - discussed esophageal manometry but pt denies any swallowing issues ?? 2. Heartburn: - cont with PPI daily - may need repeat EGD, last one was 02/2018 if symptoms do not improved - will consider trial of bentyl ?? 3. Nausea: - antiemetics if needed ?? 4. F/u to be determined following CT abdomen and pelvis ?? 5. Weight gain: Discussed diet modifications including ?A. Meals: 2-3 /day, 01/18 to 1 cup ?B. Protein: 50% of each meal, 80 to 100 g /day ?C. Carbohydrate limitation: <??15gm / meal ?D. Snacks: 1-2 /day, ??<??10gm carb ?C. Hydration: 45-60 oz of water /day ?E. Avoid: carbonated beverages, simple carbohydrates F. Exercise: ??to include light weights 3-5 times /wk for 15- 30 G. Appetite suppressant:??cont phentermine to complete 3 month trial documented in this encounter Plan of Treatment Not on file documented as of this encounter Visit Diagnoses Diagnosis Pain of upper abdomen- Primary Abdominal pain, other specified site Right upper quadrant abdominal pain Abdominal pain, right upper quadrant Epigastric pain Abdominal pain, epigastric Weight gain Abnormal weight gain documented in this encounter Care Teams Product Development Assistant Relationship Specialty Start Date End Date Kelly Roberts, RN Spider Assembler 12/28/14 documented as of this encounter
--- OUTSIDE RECORDS SUMMARY | 2024-11-15 03:18 | XMS_ITS | Encounter Summary ---
Author Organization [facility] Health Address [address] [facility] [place] [address] Care Team Providers Care Cold Water Machine Operator Name Role Phone Kelly Roberts RN Unavailable [phone] Reason for Visit * Reason Comments Follow-up n/s Encounter Details Date Type Department Care Team (Late st Contact Info) Description 06/14/2020 11:30 AM CDT Video Visit [facility] [address] [address] [place] [address] [address] Overweight (BMI 25.0-29.9) ; History of obesity in adulthood Social History Tobacco Use Types Packs/Day Years [...] - Inhaled Oxygen Concentration - - Weight 85.7 kg (189 lb) 06/14/2020 10:06 AM CDT Height 182.2 cm (5' 11.75 ) 06/14/2020 10:06 AM CDT Body Mass Index 25.81 06/14/2020 10:06 AM CDT documented in this encounter Functional [...] * Patient Instructions* Iwona Lorenz MD - 06/14/2020 11:42 AM CDT Miralax 1 capful at bedtime Call your regular doctor about colonoscopy [facility] (these are fasting meaning no eating 10 hours prior to labs. You may have black coffee or water). Complex carb at dinner. Walk breaks at work. Weight lifting at home. documented in this encounter Progress Notes * Iwona Lorenz MD - 06/14/2020 8:29 AM CDT Today's visit was conducted virtually due to COVID-19 countermeasures. The patient has given verbalconsent to have today's visit conducted by this same means with treatment provided remotely. The patient verbally consents to the billing and collection practices of [facility]. Patient location: work This encounter was performed using: audio and video Time spent with patient/proxy: 30 minutes Bariatric FollowUp Visit Chief Complaint: Overweight with hx of obesity. HPI: The patient is here for follow-up for medical wt loss. Adherence to plan is Fair. Dietary and Exercise/Physical activity change from previous visit: Weight change: loss of 17 pounds Last weight 206 on 12/22/2019 Stress eating and picking things up to eat as work very busy and stressful. Saxenda causing inconsistent stools. Will go 4-5 days w/out BM and then develops urgency. Trying toincrease fiber but feels bloated. Mucousy stools. Hx of long standing constipation. Feels like shots helping appetite control. At times will forget to eat. Notes it makes her tired at the end of the day. Did not take medication on vacation; was taking 2.4 mg of medication. Wants to continue taking Saxenda. Goal of 175. Drinking coffee and water throughout the day. Has trouble wearing mask at gym so not able to exercises. Not logging. Drinking protein shakes and eating protein bars. Changes in medical history since prior visit: none. Review of Systems: No light headedness, dizziness or excessive fatigue. No chest pain, palpitations or leg swelling No abdominal cramps, no diarrhea, no constipation No leg cramps, calf pain, ulcers or cold extremities. No mood change, unusual feelings of anxiety, depression or irritability No change in sleeping habits. OBJECTIVE: Ht 5' 11.75 (1.822 m) Wt 189 lb (85.7 kg) BMI 25.81 kg/k4Diawba: 11.75 (182.2 cm) Body mass index is 25.81 kg/m??. CrCl cannot be calculated (Patient's most recent lab result is older than the maximum 15 days allowed.). Wt Readings from Last 3 Encounters: 06/14/20 189 lb (85.7 kg) 12/22/19 206 lb 6.4 oz (93.6 kg) 10/26/19 218 lb 6.4 oz (99.1 kg) BP Readings from Last 3 Encounters: 12/22/19 140/62 10/26/19 146/78 07/30/19 128/84 Physical exam: General appearance - alert, oriented, no distress Mood within normal limits, Allergies Allergen Reactions ??? Morphine Nausea and/or [...] ??? Liraglutide -Weight Management (SAXENDA) 18 MG/3ML INJECT 3 MG SQ DAILY 15 Pen 0 ??? methylphenidate CR (CONCERTA) 18 [...] 2. History of obesity in adulthood Z86.39 Pharmaceutical interventions: ___x__Cont Saxenda. Labs ordered previously for monitoring. Miralax trial. F/u with PCP for recommendations on possible colonoscopy - The patient is agreeable. Plan for ongoing weight management (marked with X): ___x__ Skin Care Instructor care is recommended (1200 calories/day diet to [...] were provided. ___x__ Specific Behavioral modification suggestions and written plan were provided for the patient. Miralax 1 capful at bedtime Call your regular doctor about colonoscopy ?? [facility] (these are fasting meaning no eating 10 hours prior to labs. You may have black coffee or water). ?? Complex carb at dinner; concern fatigue at end of day me be related to hypoglycemia. ?? Walk breaks at work. Weight lifting at home. Updated metabolic calculation sheet prepared and discussed at length with the patient. Personalized Diet plan was provided to the patient. ___x__ Follow up with Dr. Lorenz in 6 weeks. This encounter with the patient lasted over 30min, more than 50% of the time was in direct [id number] counseling with the patient regarding increased physical activity, reduced caloric intake, healthy diet and behavioral modifications. Iwona Lorenz MD 06/14/2020 documented in this encounter Plan of Treatment Not on file documented as of this encounter Visit Diagnoses Diagnosis Overweight (BMI 25.0-29.9)- Primary Overweight History of obesity in adulthood documented in this encounter Care Teams Cold Water Machine Operator Relationship Specialty Start Date End Date Kelly Roberts, CHEY Respiratory Care Program Director 12/28/14 documented as of this encounter
--- OUTSIDE RECORDS SUMMARY | 2024-11-15 03:18 | XMS_ITS | Encounter Summary ---
Author Organization [facility] Health Address [address] [place] [address] Care Team Providers Care Plunger Machine Operator Name Role Phone Kelly Roberts RN Unavailable [phone] Encounter Details Date Type Department Care Team (Latest Contact Info) Description 10/10/2021 Travel Social History Tobacco Use Types Packs/Day [...] COVID-19? Unable to assess 10/10/2021 9:29 AM FLEET MANAGER documented as of this encounter Functional [...] on filedocumented in this encounter Care Teams Plunger Machine Operator Relationship Specialty Start Date End Date Kelly Roberts RN [employer] 12/28/14 documented as of this encounter
--- OUTSIDE RECORDS SUMMARY | 2024-11-15 03:18 | XMS_ITS | Encounter Summary ---
Author Organization [facility] Health Address [address] [facility] [place] [address] Care Team Providers Care Marketing And Development Coordinator Name Role Phone Kelly Roberts RN Unavailable [phone] Reason for Visit * Reason Comments Follow-up follow up Encounter Details Date Type Department Care Team (Late st Contact Info) Description 01/14/2022 9:40 AM FLOORMAN Office Visit [facility] Management Services [address] [address] [place] [address] [address] Overweight (BMI 25.0-29.9) (Primary Dx); History of obesity in adulthood; History of [...] Comments Blood Pressure 122/80 01/14/2022 9:35 AM FLOORMAN Pulse 79 01/14/2022 9:35 AM FLOORMAN Temperature 36.4 ??C (97.6 ??F) 01/14/2022 9:35 AM CS T Respiratory Rate - - Oxygen Saturation - - Inhaled Oxygen Concentration - - Weight 94.4 kg (208 lb 3.2 oz) 01/14/2022 9:35 A M FLOORMAN Height 182.9 cm (6') 01/14/2022 9:35 AM FLOORMAN Body Mass Index 28.24 01/14/2022 9:35 AM FLOORMAN documented in this encounter Functional Status Functional [...] * Patient Instructions* Iwona Lorenz MD - 01/14/2022 9:49 AM FLOORMAN Taking concerta regularly Keep up fluids Walking at work; 10 minutes walk ? Wegovy transition in Spring. RMAN documented in this encounter Progress Notes * Iwona Lorenz MD - 01/14/2022 9:40 AM CST Bariatric FollowUp Visit Chief Complaint: Hx of Obesity HPI: The patient is here for follow-up for medical wt loss. Adherence to plan is Fair. Dietary and Exercise/Physical activity change from previous visit: Weight change: gain of 12 pounds 10/24: 196 lb; home weight 203. Feeling hungry, feeling full. Had labs and will have f/u with estradiol testing with Internal Medicine Specialist. Increased buspar to 20 mg recently. Forgetting concerta sometimes. Drinking large amounts of coffee daily Trouble sleeping at night. Tried melatonin. Driving by the gym; too tired to go. Saxenda: skipped for a couple of months. BMs normalizing after treating for SBO Lunch: eating on the go, at work. Changes in medical history since prior visit: Review of Systems: No light headedness, dizziness or excessive fatigue. No chest pain, palpitations or leg swelling No abdominal cramps, no diarrhea, no constipation No leg cramps, calf pain, ulcers or cold extremities. No mood change, unusual feelings of anxiety, depression or irritability No change in sleeping habits. OBJECTIVE: BP 122/80 Pulse 79 Temp 97.6 ??F (36.4 ??C) Ht 6' (1.829 m) Wt 208 lb 3.2 oz (94.4 kg) BMI 28.24 kg/z4Zzldzx: 6' (182.9 cm) Body mass index is 28.24 kg/m??. CrCl cannot be calculated (Patient's most recent lab result is older than the maximum 15 days allowed.). Wt Readings from Last 3 Encounters: 01/14/22 208 lb 3.2 oz (94.4 kg) 10/24/21 196 lb (88.9 kg) 10/24/21 200 lb (90.7 kg) BP Readings from Last 3 Encounters: 01/14/22 122/80 08/29/21 150/76 08/28/21 130/78 Physical exam: General appearance - alert, oriented, [...] of sleeve gastrectomy Z90.3 - Pharmaceutical interventions: ___x__cont Saxenda. Consider Wegovy when available - The patient is agreeable. Plan for ongoing weight management (marked with X): ___x__ Marketer care is recommended (1200 calories/day diet to [...] written plan were provided for the patient. Taking concerta regularly Keep up fluids Walking at work; 10 minutes walk ? Wegovy transition in Spring. __X___ Updated metabolic calculation sheet prepared and discussed at length with the patient. ___x__ Personalized Diet plan was provided to the patient. ___x__ Follow up with Dr. Lorenz in 6 weeks. Iwona Lorenz MD 01/21/2022 RMAN documented in this encounter Plan of Treatment Not on file documented as of this encounter Visit Diagnoses Diagnosis Overweight (BMI 25.0-29.9)- Primary Overweight History of obesity in adulthood History of sleeve gastrectomy documented in this encounter Care Teams Marketing And Development Coordinator Relationship Specialty Start Date End Date Kelly Roberts, RN Emergency Medical Technician/Driver 12/28/14 documented as of this encounter
--- OUTSIDE RECORDS SUMMARY | 2024-11-15 03:18 | XMS_ITS | Encounter Summary ---
Author Organization [facility] Health Address [address] [place] [address] Care Team Providers Care Bobbin Inspector Name Role Phone Kelly Roberts RN Unavailable [phone] Reason for Visit * Radiology Services (Routine) - Closed Specialty Diagnoses / Procedures Referred By Contac t Referred To Contact CT Scan Diagnoses Abdominal pain, LUQ (left upper quadrant) Abdominal pain, RUQ (right upper quadrant) Procedures CT ABDOMEN AND PELVIS WITH IV CONTRAST CT ABDOMEN [place] [id number] [facility] [address] [place] [address] [address] [facility] [address] [place] [address] Referral ID Status Reason Start Date Expiration Date Visits Re quested Visits Authorized [id number] Closed 03/26/2019 09/22/2019 1 1 Encounter Details Date Type Department Care Team (Latest Contact Info) Description 04/09/2019 10:10 AM CDT - 04/09/2019 11:59 PM CDT Hospital Encounter [facility] Health Imaging Services - CT Scan [address] [place] [address] [place] [id number] [facility] [address] [place] [address] Discharge Disposition: Home or Self Care Social History Tobacco Use Types Packs/Day Years [...] No 12/29/2014 documented as of this encounter Medications at Time of Discharge Medication Sig Dispensed Refills Start Date End Date albuterol HFA (PROVENTIL;VENTOLIN;PRO AIR) 108 (90 BASE) MCG/ACT inhaler 4 times daily as needed 12/08/2017 buPROPion SR 12hr (WELLBUTRIN-SR) 150 MG tablet Take 150 mg by mouth once daily. carisoprodol (SOMA) 350 MG tablet Take 1 Tab by mouth 3 times daily as needed. 80 Tab 0 12/29/2014 omeprazole (PRILOSEC) 20 MG capsule TAKE 1 CAPSULE BY MOUTH 2 TIMES DAILY,BEFORE BREAKFAST AND SUPPER 30 capsule 5 06/26/2018 oxyCODONE (ROXICODONE) 5 MG/5ML oral solution Take 10 mL by mouth every 4 hours as needed for Pain 240 mL 04/06/2018 vortioxetine (TRINTELLIX) 10 MG tablet Take 10 mg by mouth once daily ENGERIX-B 20 MCG/ML injection ADM 1ML IM UTD 0 10/28/2018 11/04/2021 HAVRIX 1440 EL U/ML injection ADM 1ML IM UTD 0 10/28/2018 11/04/2021 hydrocortisone (HYTONE) 2.5 % ointment Apply to affected area 4 times daily 20 g 04/15/2018 11/04/2021 hydrocortisone butyrate 0.1 % cream - ketoconazole 2% cream 50:50 CREA Apply to affected area 2 times daily as needed. 11/04/2021 oxyCODONE-acetaminophen (PERCOCET) 5-325 MG tablet TK 1 T PO Q 8 H PRN 0 11/19/2018 11/04/20 phentermine (ADIPEX-P) 37.5 MG capsule Take 1 capsule by mouth daily before breakfast Take 1/2 tablet for 2 weeks then increase to 1 tablet 30 capsule 03/26/2019 04/22/2019 sucralfate (CARAFATE) 1 GM/10ML suspension Take 10 mL by mouth 4 times daily 1200 mL 1 02/11/2019 08/17/2019 sucralfate (CARAFATE) 1 GM/10ML suspensionIndications:R ight upper quadrant abdominal pain,Diarrhea, unspecified type,Epigastric pain Take 10 mL by mouth 4 times daily 1200 mL 03/31/2018 08/17/2019 documented as of this encounter Plan of Treatment Not on file documented as of this encounter Procedures Procedure Name Priority Date/Time Associated Diagnosis Comments CT ABDOMEN PELVIS W CONTRAST Routine 04/09/2019 11:47 AM CDT Abdominal pain, LUQ (left upper quadrant) Abdominal pain, RUQ (right upper quadrant) documented in this encounter Results * CT ABDOMEN AND PELVIS WITH IV [...] 3:45 PM Rashawn Herring MD CT ORDERABLES documented in this encounter Visit Diagnoses Diagnosis Abdominal pain, LUQ (left upper quadrant) Abdominal pain, left upper quadrant Abdominal pain, RUQ (right upper quadrant) Abdominal pain, right upper quadrant documented in this encounter Administered Medications Inactive Administered Medications - up to 3 most recent administrations Medication Order MAR Action Action Date Dose Rate Site iohexol (OMNIPAQUE 350) contrast Oral, CONTRAST ONCE, Starting on Fri04/09/19 at 1142, Until 04/10/19 at 0129 $ Given - Contrast 04/09/2019 11:43 AM CDT 50 mL iohexol (OMNIPAQUE 350) contrast Intravenous, CONTRAST ONCE, Starting on Fri04/09/19 at 1142, Until 04/10/19 at 0129 $ Given - Contrast 04/09/2019 11:43 AM CDT 80 mL documented in this encounter Care Teams Bobbin Inspector Relationship Specialty Start Date End Date Kelly Roberts, RN Prop Setter 12/28/14 documented as of this encounter
--- OUTSIDE RECORDS SUMMARY | 2024-11-15 03:18 | XMS_ITS | Encounter Summary ---
Author Organization [facility] Address [address] [facility] [place] [address] Care Team Providers Care Sales And Marketing Assistant Name Role Phone Kelly Roberts RN Unavailable Reason for Visit * Reason Onset Date Comments MEDICATION REFILL 01/10/2020 MEDICATION REFILL 07/18/2020 Encounter Details Date Type Department Care Team (Late st Contact Info) Description 01/10/2020 Refill [facility] Weight Management Services [address] [address] [place] [id number] [address] MEDICATION REFILL; MEDICATION REFILL Social History Tobacco Use Types Packs/Day Years [...] on filedocumented in this encounter Care Teams Sales And Marketing Assistant Relationship Specialty Start Date End Date Kelly Roberts RN Counseling Program Leader 12/28/14 documented as of this encounter
--- OUTSIDE RECORDS SUMMARY | 2024-11-15 03:18 | XMS_ITS | Encounter Summary ---
Author Organization [facility] Health Address [address] [facility] [place] [address] Care Team Providers Care Commercial Credit Officer Name Role Phone Kelly Roberts RN Unavailable [phone] Encounter Details Date Type Department Care Team (Late st Contact Info) Description 04/22/2019 Orders Only [facility] Weight Management Services [address] [address] Suzette Wiley, CÉSAR-MEASUREMENT DEPARTMENT CHIEF CLERK [address] [facility] [address] [place] [address] Social History Tobacco Use Types [...] on filedocumented in this encounter Care Teams Commercial Credit Officer Relationship Specialty Start Date End Date Kelly Roberts, RN Boardmarker 12/28/14 documented as of this encounter
--- OUTSIDE RECORDS SUMMARY | 2024-11-15 03:19 | XMS_ITS | Encounter Summary ---
Author Organization [facility] Address [address] [facility] [place] [address] Care Team Providers Care Gis Database Administrator Name Role Phone Kelly Roberts RN Unavailable [phone] Reason for Visit * Reason Comments Follow-up 6 mo po slv Encounter Details Date Type Department Care Team (Late st Contact Info) Description 06/26/2015 8:30 AM CDT Office Visit [facility] Weight Management Services [address] [address] Suzette Wiley, CÉSAR-ASSISTANT SITE MANAGER [address] [facility] [address] [place] [address] Bariatric surgery status (Primary Dx); Obesity; Loss of weight; Other constipation Social History Tobacco Use Types Packs/Day Years [...] Sign Reading Time Taken Comments Blood Pressure 151/90 06/26/2015 8:30 AM CDT Pulse 69 06/26/2015 8:30 AM CDT Temperature - - Respiratory Rate - - Oxygen Saturation - - Inhaled Oxygen Concentration - - Weight 89.8 kg (198 lb) 06/26/2015 8:30 AM CDT Height 182.9 cm (6') 06/26/2015 8:30 AM CDT Body Mass Index 26.85 06/26/2015 8:30 AM CDT documented in this encounter Functional [...] this encounter Patient Instructions * Patient Instructions* Suzette Wiley, TOOL STORAGE ATTENDANT-ASSISTANT SITE MANAGER - 06/26/2015 8:58 AM CDT POST OPERATIVE VISIT INSTRUCTIONS 6 Months Dietary ?? Journaling helps keep you honest and on track! Calculate your protein grams every day. Females should have a minimum of 60 grams per day and men 80 grams per day. ?? It is important that you are learning to eat to live and not live to eat. Food likely does not give you as much pleasure as it has in the past. Eating protein is not optional. Failure to follow the guidelines laid out in your dietary booklet can result in serious health problems. ?? Eat your protein first! ?? You should be getting close to tolerating 1 cup of food per meal. At least half of your meal should be protein. You will notice that you can eat more soft foods (carbohydrates) than protein. Please be sure you are meeting your protein goals first before adding in many carbohydrates. ?? You should be getting 64 ounces of water per day. ?? Limit Caffiene, such as energy drinks limit coffee to 1 to 2 cups per day. ?? Meals should take a minimum of 30 minutes to consume. ?? Do not graze on cheese, peanut butter and nuts to meet your protein goals. ?? Drink liquid protein between meals for hunger. Protein bars are acceptable, however, make sure they are high protein and Less than 10 grams of carbs. For a list of acceptable supplements, please contact the reservations and ticketing agent. . ?? May have gum and popcorn. Vitamins ?? A current list of our vitamin recommendations will be provided to you at your request. Our recommendations do periodically change, if it is not provided at the time of your visit, please request an updated list at your next visit. Exercise ?? There are no restrictions of any kind. ?? Take one more step tomorrow than what you took today. ?? If you find your weight loss slowing, consider changing your exercise routine. As your cardiovascular health improves, cross training will help you through any plateaus you may incur. Behavior Modification ?? Visit the list of behaviors that helped contribute to your morbid obesity. Assess yourself or visit with a friend on a regular basis to assure that the bad habits are not returning to your daily lives. ?? Continue weighing weekly. General Medical ?? If you begin finding your CPAP on the floor in the mornings, please contact your PCP to have a second night sleep study completed. It is possible that you need to have the pressures within your machine reduced. You should not stop wearing your CPAP without consulting your doctor. ?? Vomiting is not normal. If you cannot attribute vomiting to something that you have done, pleasenotify our office. ?? control is strongly recommended for the first 18 months after surgery. ?? Support groups are helpful and important in dealing with your disease, please attend them. ?? Average weight loss is 1 to 2 pounds per week. Expect plateaus. Medications--General Information ?? You should be able to tolerate your medications without difficulty. ?? You should not vomit after taking medications. If this consistently occurring, please notify ouroffice. Ulcer Prevention ?? DO NOT SMOKE. If your return to smoking notify our office immediately. ?? DO NOT TAKE NSAIDS. ?? NO ALCOHOL FOR AT LEAST ONE YEAR, THEN LIMITED AMOUNT AFTER ONE YEAR! Blood Pressure Medication ?? If you consistently find yourself getting light headed when you go from a laying positions to a sitting position OR from a sitting position to a standing position, contact your primary care physician for a medication adjustment. Diabetic Medication ?? Once your fasting blood sugar is less than 120 mg/dl for 3 consecutive mornings please notify your primary care physician for a medication adjustment. Psychiatric Medication ?? If you do not feel well controlled on your current medication regimen, please call your primary care physician or psychiatrist for a medication adjustment. ?? Depression after weight loss surgery is not uncommon even if you have never had problems with itin the past. If you are experiencing problems, please contact someone for assistance. Follow-up ?? For a Val-en-Y divided gastric bypass, vertical sleeve gastrectomy or revision your next appointment will be in 6 months. Please notify us if you have any problems before your next appointment. ?? Have labs drawn 2 weeks before your next visit. documented in this encounter Progress Notes * Suzette Wiley APRN-CNP - 06/26/2015 8:53 AM CDT 6 Month Bariatric Surgery Follow up Date of Surgery: 12/2014 Laparoscopic sleeve gastrectomy Initial weight: 272 Today's weight: 198 Total weight loss: 77 lbs WM Finesse Ramirez is here today for a 6 month postoperative follow up visit. She reports that overall she is doing well She is happy with her weight loss She is getting in all of her protein, fluids and vitamins She denies any nausea, vomiting, reflux or abdominal pain She is moving her bowels and has some intermittent constipation. She is off her HTN medication. She is continued on medication for PCOS She is continued on medication for her back pain. Review of systems as above, the rest of systems were reviewed and are negative. BP 151/90 mmHg Pulse 69 Wt 198 lb (89.812 kg) BMI 26.85 kg/m2 Current Outpatient Prescriptions Medication ??? carisoprodol (SOMA) 350 MG tablet ??? lansoprazole (PREVACID) 30 MG capsule ??? buPROPion SR 12hr (WELLBUTRIN-SR) 150 MG tablet ??? hydrocortisone butyrate 0.1 % cream - ketoconazole 2% cream 50:50 CREA ??? ALBUTEROL IN No current facility-administered medications for this visit. Past Medical History Diagnosis Date ??? Arthritis ??? Asthma ??? Hypertension ??? Migraine ??? Elevated cholesterol not on Rx ??? Chest pain cath 06/2013 pt states ok ??? Fatty liver disease, nonalcoholic ??? DJD (degenerative joint disease) ??? History of gastric ulcer ??? PCOS (polycystic ovarian syndrome) Review of Systems: HEENT: Normal Cardiovascular: Normal Respiratory: Normal Gastrointestinal: constipation Genitourinary: Normal Musculoskeletal: Normal Skin / Breast / Axillae: Normal Endocrine: Normal Allergic / Immuno: Normal Neuro / Psych: Normal Has the patient been readmitted to the hospital since the last follow up ? No Has the patient had any post bariatric surgical operations or interventions performed since the last follow up? No Physical Exam: General: Awake, alert, oriented to person,place and time. In no distress Neck: Supple, no JVD Lungs: Clear to ascultation, no wheezes or crackles Heart: RRR, S1S2 Abdomen: Soft, nontender, no hernias, BS + X all four quad Extremities: No edema x4, no erythema Assessment / Plan: S/P sleeve : Morbid Obesity Weight loss GERD: Continued on PPI HTN: Off all medication PCOS: on metformin Constipation: she is to add fiber daily, colace 1-2x per day and PRN MOM or Miralax Diet: Continue with 60 gms of protein, 64 oz fluid daily Eat slowly, taking 30 minutes to finish a meal Drink liquid protein between meals for hunger Follow dietary restrictions Support Groups: Encouraged to attend Vitamins: Continue with bariatric multivitamin, Ca with D and B12 . Exercise: No restrictions General medical: continue to follow up with your PCP for medication adjustments if needed. Labs: She will have her recent lab work faxed to the office today and then at 1 year and then annually. Follow up: In 6 months with routine labs or PRN. Total time of visit: 15 minutes documented in this encounter Plan of Treatment Not on file documented as of this encounter Visit Diagnoses Diagnosis Bariatric surgery status- Primary Obesity Obesity, unspecified Loss of weight Other constipation documented in this encounter Care Teams Gis Database Administrator Relationship Specialty Start Date End Date Kelly Roberts, RN Provisioning Specialist 12/28/14 documented as of this encounter
--- OUTSIDE RECORDS SUMMARY | 2024-11-15 03:19 | XMS_ITS | Encounter Summary ---
Author Organization [facility] Health Address [address] [place] [address] Care Team Providers Care Beam Builder Name Role Phone Kelly Roberts RN Unavailable [phone] Reason for Visit * Reason Onset Date Comments Opened In Error 03/10/2019 Encounter Details Date Type Department Care Team (Late st Contact Info) Description 03/10/2019 Telephone [facility] Management Services [address] [facility] [address] [place] [address] [address] [place], [facility] [address] [facility] [address] [place] [address] Opened In Error Social History Tobacco Use Types Packs/Day Years [...] on filedocumented in this encounter Care Teams Beam Builder Relationship Specialty Start Date End Date Kelly Roberts RN Dust Collector 12/28/14 documented as of this encounter
--- OUTSIDE RECORDS SUMMARY | 2024-11-15 03:19 | XMS_ITS | Encounter Summary ---
Author Organization [facility] Address [address] [place] [address] Care Team Providers Care Laborer Wharf Name Role Phone Unavailable Primary Care Provider Unavailabl e Reason for Visit * Auth/Cert - Closed Specialty Diagnoses / Procedures Referred By Jesse santana Referred To Contact Diagnoses Morbid obesity (HCC) Procedures LAPAROSCOPY LONGITUDINAL OR SLEEVE GASTRECTOMY Referral ID Status Reason Start Date Expiration Date Visits Re quested Visits Authorized [id number] Closed 1 1 Encounter Details Date Type Department Care Team (Late st Contact Info) Description 12/27/2014 7:49 AM SALES OUTFITTER Anesthesia Event [facility] - Perioperative Surgery [address] [place] [id number] Harini Phelan DO [address] [place] [id number] Anesthesia Record Procedure Summary Procedure Name Responsible Anesthesiologist Anesthesia Start Time Anesthesia Stop Time LAPAROSCOPIC VERTICAL SLEEVE GASTRECTOMY (Abdomen) Harini Phelan DO 12/27/14 0749 12/27/14 0916 Events Date Time Event Comment 12/27/2014 0643 0710 Elect Sign The providers l isted as staff are the responsible providers for the case. 0749 An Start 0749 An Start Data 0749 PT Reassessment Patient and Vital Signs reassessed prior to induction. 0755 An Induction 0755 An Intubation 0906 Extubation 0910 Elect Sign The providers l isted as staff are the responsible providers for the case. 0910 an stop data 0910 ANPTO2 0916 An Stop Meds Name Total midazolam (VERSED) 1 mg/mL injection 2 m g fentaNYL (SUBLIMAZE) injection 200 mcg lidocaine (XYLOCAINE) 2% injection 100 m g propofol (DIPRIVAN) injection 170 mg succinylcholine (ANECTINE) 20 mg/ml inje ction 120 mg rocuronium (ZEMURON) 10 mg/mL injection 50 mg glycopyrrolate (ROBINUL) injection 0.6 m g ondansetron (ZOFRAN) 2 mg/mL injection 8 mg phenylephrine (SHIKHA-SYNEPHRINE) 10 mg/ml injection 300 mcg neostigmine (PROSTIGMIN) 1 mg/mL injecti on 4 mg acetaminophen (OFIRMEV) injection 1,000 mg ceFAZolin (ANCEF) IVPB 3 g 3 g dexamethasone (DECADRON) 4 mg/ml injecti on 8 mg lactated ringers infusion 1,100 mL * Agents Name Insp. N2O Exp. Sevoflurane O2 Air Insp. Sevoflurane * Blood No blood administrations on file. Lines, Drains, and Airways Type Details Placement Removal RETIRED Procedural Site 12/27/14; Abdomen; Laparoscopic; 12/29/14; 1807 12/27/14 0000 by Thu Burgos RN 12/29/14 1807 by Generic, Auto Release Peripheral IV Date: 12/27/14; Time : 0639; Orientation: Right; Placed By: jamie turcios rn; Length (in): 1 1/4in; Tolerance: Well 12/27/14 0639 by Comfort Wong RN 12/29/14 1206 by Cayla Almendarez RN ETT Date: 12/27/14; Time : 0755; Placed By: ford arnett 3 ; Vent: easy mask; Induction: Standard IV; Blade Type: Jeaneth; Blade Size: 3; Laryngoscopy View: Grade 1 (full cords); Tube: Endotracheal Tube-Hi/Lo; Placement: Oral; Tube Type: Cuffed-inflated; Tube Size(mm): 7 MM; Depth of Insertion: 22 CM; Measured From: teeth; Cuff Infated: Air; Cuff Vol(mL): 7 mL; Verified By: Direct visualization, Bilateral breath sounds, Chest Auscultation, CO2 Monitor 12/27/14 0755 by Lemuel Paulson APRN-CRNA 12/27/14 0906 by Lemuel Paulson, LICO documented in this encounter Social History Tobacco Use Types Packs/Day [...] or have serious hearing difficult y? No 12/27/2014 Is person blind or have serious difficulty seein g? No 12/27/2014 Does person have serious dif ficulty walking/climbing stairs? No 12/27/2014 Does person have difficulty dressing/bathing? No 12/27/2014 Does person have difficulty doing errands alone? No 12/27/2014 Cognitive Status Response Date of Assessm ent Does person have difficulty concentrating/remembering/making decisions? No 12/27/2014 documented as of this encounter Progress Notes * Lemuel Paulson APRN-CRNA - 12/27/2014 9:16 AM CST ANESTHESIA POSTPROCEDURE EVALUATION Finesse Ramirez is a 44 y.o. female Temp: 36.6 ??C Pulse: 85 Resp: 18 BP: 127/76 mmHg SpO2: 99 % Pain Rating Score #1: 6 Anesthesia Type: general Mental status: sufficiently recovered from acute administration of anesthesia to participate in theevaluation. Level of consciousness: arousable No numbness, tingling or visual disturbances present. General appearance: well-appearing Respiratory function: natural airway. Cardiac: stable Pain: comfortable/acceptable PONV: None Postop hydration: adequate. Patient may be released from anesthesia care. A postop evaluation was performed on this patient with the following assessment: no apparent anesthesia complications S OUTFITTER documented in this encounter Consult Notes * Lemuel Paulson APRN-CRNA - 12/27/2014 6:40 AM CST Pre-anesthesia Evaluation Procedure(s): LAPAROSCOPIC VERTICAL SLEEVE GASTRECTOMY Vital Signs: Temp: 36.6 ??C (12/27 609) Pulse: 85 (12/27 609) Resp: 18 (12/27 609) BP: 127/76 mmHg (12/27 609) SpO2: 99 % (12/27 609) BMI: Estimated body mass index is 36.75 kg/(m^2) as calculated from the following: Height as of this encounter: 6' (1.829 m). Weight as of this encounter: 271 lb (122.925 kg). History: Past Medical History Diagnosis Date ??? Arthritis ??? Asthma ??? Hypertension ??? Migraine ??? Elevated cholesterol not on Rx ??? Chest pain cath 06/2013 pt states ok ??? Fatty liver disease, nonalcoholic ??? DJD (degenerative joint disease) ??? History of gastric ulcer ??? PCOS (polycystic ovarian syndrome) Past Surgical History Procedure Laterality Date ??? Carpal tunnel surgery 1991 Bilateral ??? Hammer toe repair 1999 Left foot w/ bunionectomy ??? Other surgery 2005 04 EYE SURGERIES ??? Acl reconstruction 2008 Right ??? Rotator cuff repair 2008 LEFT ??? Other surgery 2008 Left ANKLE reconstruction ??? Lumbar spine fusion 01/17/2011 TLIF L5-S1 MINIMALLY INVASIVE ??? Other surgery tiannaons neuroma removed right and left foot reports that she has never smoked. She has never used smokeless tobacco. She reports that she drinks alcohol. She reports that she does not use illicit drugs. Allergies: is allergic to morphine; erythromycin; and neurontin. Medications: Prescriptions prior to admission Medication Sig Dispense Refill ??? buPROPion SR 12hr (WELLBUTRIN-SR) 150 MG tablet Take 150 mg by mouth once daily. ??? metFORMIN (GLUCOPHAGE) 500 MG tablet Take 500 mg by mouth 2 times daily with morning and evening meal. Indications: Polycystic Ovary Syndrome ??? hydrocortisone butyrate 0.1 % cream - ketoconazole 2% cream 50:50 CREA Apply to affected area 2times daily as needed. ??? oxyCODONE-acetaminophen (PERCOCET) 5-325 MG tablet Take 1 Tab by mouth every 4 hours as needed for Pain. ??? ALBUTEROL IN Inhale by mouth as needed. Bring day of surgery ??? methyldopa (ALDOMET) 500 MG tablet Take 500 mg by mouth 2 times daily. Instructed to take AM ofsurgery ??? labetalol (NORMODYNE; TRANDATE) 100 MG tablet Take 100 mg by mouth 3 times daily. Instructed totake AM of surgery ??? carisoprodol (SOMA) 350 MG tablet Take 1 Tab by mouth 3 times daily. (Patient taking differently: Take 350 mg by mouth 3 times daily as needed.) 80 Tab 0 No current facility-administered medications on file prior to encounter. Current Outpatient Prescriptions on File Prior to Encounter Medication Sig Dispense Refill ??? buPROPion SR 12hr (WELLBUTRIN-SR) 150 MG tablet Take 150 mg by mouth once daily. ??? metFORMIN (GLUCOPHAGE) 500 MG tablet Take 500 mg by mouth 2 times daily with morning and evening meal. Indications: Polycystic Ovary Syndrome ??? hydrocortisone butyrate 0.1 % cream - ketoconazole 2% cream 50:50 CREA Apply to affected area 2times daily as needed. ??? oxyCODONE-acetaminophen (PERCOCET) 5-325 MG tablet Take 1 Tab by mouth every 4 hours as needed for Pain. ??? ALBUTEROL IN Inhale by mouth as needed. Bring day of surgery ??? methyldopa (ALDOMET) 500 MG tablet Take 500 mg by mouth 2 times daily. Instructed to take AM ofsurgery ??? labetalol (NORMODYNE; TRANDATE) 100 MG tablet Take 100 mg by mouth 3 times daily. Instructed totake AM of surgery ??? carisoprodol (SOMA) 350 MG tablet Take 1 Tab by mouth 3 times daily. (Patient taking differently: Take 350 mg by mouth 3 times daily as needed.) 80 Tab 0 Physical Exam: NPO status: no solids since midnight, no liquids within 2 hours Oriented to person, place and time Airway: I Neck ROM: full Dental exam findings: normal/ok Pulmonary exam: breath sounds CTA Heart sounds: S1 S2 Other comments: Anesthesia pre op re evaluation by LICO Shaw 12/27/2014 7:09 AM Plan for Anesthesia: ASA Score: 3. Anesthesia plan: general / ETT Planned method of induction: intravenous Planned postop destination: PACU Anesthesia plan, risks and benefits discussed with patient Anesthesia consent: obtained Plan accepted yes Other findings: Pt has hx of corneal abrasion in the past she is blind in the right eye, and with patching of her left, she was totally unable to see. She states she had a TERRIBLE time in our pacu in 2010, and that nursing staff was blaming her for her pain because she took too many pain pills Itold her if she had any issue to have the pacu nurses call me, and I'd be happy to assist. S OUTFITTER documented in this encounter Plan of Treatment Not on file documented as of this encounter Visit Diagnoses Not on filedocumented in this encounter Administered Medications Inactive Administered Medications - up to 3 most recent administrations Medication Order MAR Action Action Date Dose Rate Site acetaminophen (OFIRMEV) injection PRN, Starting on Fri12/27/14 at 0800, Until Fri12/27/14 at 0917, Anesthesia Intra-op $ Given 12/27/2014 8:00 AM SALES OUTFITTER 1,000 mg ceFAZolin (ANCEF) IVPB 3 g 3 g, at 200 mL/hr, Intravenous, PRE-OP MULTIPLE, Starting on Fri12/27/14 at 0612, Until Fri12/27/14 at 1753, Administer 30 minutes prior to surgical incision. Repeat dose in 3 hours if surgical incision not closed., Pre-op $ Given 12/27/2014 7:49 AM SALES OUTFITTER 3 g dexamethasone (DECADRON) injection PRN, Nausea/Vomiting, Starting on Fri12/27/14 at 0800, Until Fri12/27/14 at 0917, Anesthesia Intra-op $ Given 12/27/2014 8:00 AM SALES OUTFITTER 8 mg fentaNYL (SUBLIMAZE) injection PRN, Starting on Fri12/27/14 at 0753, Until Fri12/27/14 at 09, Anesthesia Intra-op $ Given 12/27/2014 8:42 AM SALES OUTFITTER 100 mcg $ Given 12/27/2014 7:53 AM SALES OUTFITTER 100 mcg glycopyrrolate (ROBINUL) injection PRN, Starting on Fri12/27/14 at 0855, Until Fri12/27/14 at 09, Anesthesia Intra-op $ Given 12/27/2014 8:55 AM SALES OUTFITTER 0.6 mg lactated ringers infusion at 20 mL/hr, Intravenous, PRE-OP CONTINUOUS, Starting on Fri12/27/14 at 0615, Until Fri12/27/14 at 1753, Pre-op $ New Bag/Syringe 12/27/2014 8:55 AM SALES OUTFITTER $ New Bag/Syringe 12/27/2014 6:38 AM SALES OUTFITTER 20 mL/ hr lidocaine (XYLOCAINE) 2 % injection PRN, Starting on Fri12/27/14 at 0755, Until Fri12/27/14 at 0917, Anesthesia Intra-op $ Given 12/27/2014 7:55 AM SALES OUTFITTER 100 mg midazolam (VERSED) injection PRN, Starting on Fri12/27/14 at 0749, Until Fri12/27/14 at 0917, Anesthesia Intra-op $ Given 12/27/2014 7:49 AM SALES OUTFITTER 2 mg neostigmine (PROSTIGMIN/BLOXIVERZ) injection PRN, Starting on Fri12/27/14 at 0855, Until Fri12/27/14 at 0917, Anesthesia Intra-op $ Given 12/27/2014 8:55 AM SALES OUTFITTER 4 mg ondansetron (ZOFRAN) injection PRN, Nausea/Vomiting, Starting on Fri12/27/14 at 0855, Until Fri12/27/14 at 0917, Anesthesia Intra-op $ Given 12/27/2014 8:55 AM SALES OUTFITTER 8 mg phenylephrine (SHIKHA-SYNEPHRINE) injection PRN, Starting on Fri12/27/14 at 0800, Until Fri12/27/14 at 0917, Anesthesia Intra-op $ Given 12/27/2014 8:14 AM SALES OUTFITTER 100 mcg $ Given 12/27/2014 8:07 AM SALES OUTFITTER 100 mcg $ Given 12/27/2014 8:00 AM SALES OUTFITTER 100 mcg propofol (DIPRIVAN) injection PRN, Starting on Fri12/27/14 at 0755, Until Fri12/27/14 at 09, Anesthesia Intra-op $ Given 12/27/2014 7:55 AM SALES OUTFITTER 170 mg rocuronium (ZEMURON) injection PRN, Starting on Fri12/27/14 at 0755, Until Fri12/27/14 at 0917, Anesthesia Intra-op $ Given 12/27/2014 8:00 AM SALES OUTFITTER 45 mg $ Given 12/27/2014 7:55 AM SALES OUTFITTER 5 mg succinylcholine (ANECTINE) injection PRN, Starting on Fri12/27/14 at 0755, Until Fri12/27/14 at 0917, Anesthesia Intra-op $ Given 12/27/2014 7:55 AM SALES OUTFITTER 120 mg documented in this encounter
--- OUTSIDE RECORDS SUMMARY | 2024-11-15 03:19 | XMS_ITS | Encounter Summary ---
Author Organization [facility] Address [address] [facility] [place] [address] Care Team Providers Care Transfer Station Operator Name Role Phone Unavailable Primary Care Provider Unavailabl e Encounter Details Date Type Department Care Team (Latest Contact Info) Description 08/18/2014 1:00 PM CDT - 08/18/2014 11:59 PM CDT Hospital Encounter [facility] [address] [place] [address] [place] [address] [facility] [address] [place] [address] Discharge Disposition: Home or Self [...] - Inhaled Oxygen Concentration - - Weight 124.7 kg (275 lb) 08/18/2014 2:0 0 PM CDT 1 lb gain since 07/27/14 Height 182.9 cm (6') 08/18/2014 2:00 PM CDT Body Mass Index 37.3 08/18/2014 2:00 PM CDT documented in this encounter Medications at Time of Discharge Medication Sig Dispensed Refills Start Date End Date ALBUTEROL INIndications:Morbid obesity (HCC) Inhale by mouth as needed. Bring day of surgery 04/06/2018 carisoprodol (SOMA) 350 MG tablet Take 1 Tab by mouth 3 times daily. 80 Tab 0 04/12/2011 12/29/2014 ibuprofen (MOTRIN) 800 MG tabletIndications:Morbi d obesity (HCC) Take 800 mg by mouth every 6 hours as needed for Pain. 12/14/2014 labetalol (NORMODYNE; TRANDATE) 100 MG tablet Take 100 mg by mouth 3 times daily. Instructed to take AM of surgery 06/26/2015 melatonin 3 MG tablet Take 3 mg by mouth nightly as needed for Insomnia. 12/14/2014 methyldopa (ALDOMET) 500 MG tablet Take 500 mg by mouth 2 times daily. Instructed to take AM of surgery 06/26/2015 oxyCODONE-acetaminophen (PERCOCET) 5-325 MG tabletIndications:Morbi d obesity (HCC) Take 1 Tab by mouth every 4 hours as needed for Pain. 12/29/2014 documented as of this encounter Progress Notes * Ct Dumont, CHRISTEN/LD - 08/18/2014 2:14 PM CDT Pre-Surgical Bariatric Session 2 Date: 08/18/2014 Patient: Finesse Ramirez Date of : 1970 (44 y.o.) PCP Physician: Laureano Lantigua Referring Physician: Rashawn Herring MD Assessment: Pt planning Sleeve Gastrectomy. She notes she has been more aware of portions on her plates. She has been mourning the loss of food . Finesse is more aware of the taste of foods at the 1stbite rather than eating so fast that she does not notice the taste of a food until the 5th or 6th bite. She eats rapidly and stress eats, but less than previously. Her breakfast may be dry cereal with skim milk or scrambled eggs. She snacks at her desk on [employer], but counts out 25 in a snack-sizebaggie. Her lunch has been [facility] [employer] pasta. Dinner could be salmon and christian beans. She has ice cream less often, once in 2 weeks after dinner. She has reduced her soda intake to 1 can daily and is aware she needs to eliminate carbonation. Her coffee intake is 3 cups per day and reinforced the ra gustafson for limiting caffeine to 16 ounces per day. Fiensse's activity level has been yard work. She notes taking more pain medications in the last month and having a monthly cycle for 40 days straight. She expresses her desire to be active with her teen-age son. Secondary Diagnoses/Co-morbidities: Hypertension;Dyslipidemia;Obesity;Other (comments) (NAFLD, arthritis, spinal fusion) Current exercise regimen: yard work Patient currently participates in exercise: 0-2 times/week Pertinent Labs: reviewed Pertinent Medications: reviewed Clinical Data: Height: 6' (182.9 cm) Weight: 275 lb (124.739 kg) (1 lb gain since 07/27/14) BMI (Calculated): 37.37 Filed Wts: 08/18/14 1400 Weight: 275 lb (124.739 kg) 1 pound weight gain from previous visit. Diagnostic Statement: Obesity related to excess energy intake/decreased physical activity AEB elevated BMI. Interventions: Patient was instructed on portion sizes using food models, post- surgery diet progression, post-surgery protein requirements/protein supplements, Bariatric vitamin/mineral supplementation recommendations, adequate hydration, proper eating habits, potential Bariatric post-op concerns: dumping syndrome, nausea/vomiting, constipation, importance of routine activity, no alcohol/carbonation, and attending support group, tips for dining out and goals for a lifetime of success and previous food records, goals, and behavior modification tips reviewed. Discussed the pre-operative high protein liquid diet as per MD recommendations. Discussed non-food rewards options. Materials provided: Bariatric Nutrition Guide and Bariatric Vitamin Options Handout Monitor: Pt encouraged to call RD with questions and/or concerns. Goals: Behavior modification and gradual weight loss. Eat three meals per day. Switch to sugar free, non-carbonated beverages and consume 64 ounces of fluid per day. Increase physical activity per physician approval. Keep food and activity journal. Pt verbalizes understanding of expectation of gradual weight loss or weight maintenance prior to surgery. Finesse will slow her meals and rate of drinking fluids. Evaluation of Overall Compliance Potential: Patient verbalizes understanding of concepts discussed. Nutritional Review ?? Cleared for surgical consult _x__ ?? Cleared for surgical consult but additional RD visit(s) required ___ ?? Not cleared for surgical consult ___ ?? Bariatric Case Conference review required ___ Session Information Session date: 08/18/2014 Session total minutes: [address]/VINNY documented in this encounter Plan of Treatment Not on file documented as of this encounter Visit Diagnoses Not on filedocumented in this encounter
--- OUTSIDE RECORDS SUMMARY | 2024-11-15 03:19 | XMS_ITS | Encounter Summary ---
Author Organization [facility] Address [address] [facility] [place] [address] Care Team Providers Care Histology Tech Name Role Phone Kelly Roberts RN Unavailable [phone] Reason for Visit * Reason Onset Date Comments Follow-up 02/16/2019 Encounter Details Date Type Department Care Team (Late st Contact Info) Description 02/16/2019 Telephone [facility] [address] [facility] [address] [place] [address] [address], RECEIVING MA[facility] [address] [facility] [address] [place] [address] Follow-up Social History Tobacco Use Types Packs/Day Years [...] Telephone Encounter - Ct Collado APRN-CNP - 02/16/2019 9:12 AM CDT I spoke with patient regarding recommended testing. She will get a call to schedule her EGD. I gaveher central scheduling number to schedule her UGI and RUQ US. All questions were addressed. documented in this encounter Plan of Treatment Not on file documented as of this encounter Visit Diagnoses Not on filedocumented in this encounter Care Teams Histology Tech Relationship Specialty Start Date End Date Kelly Roberts, RN Monitoring Engineer 12/28/14 documented as of this encounter
--- OUTSIDE RECORDS SUMMARY | 2024-11-15 03:19 | XMS_ITS | Encounter Summary ---
Author Organization [facility] Address [address] [facility] [place] [address] Care Team Providers Care Portal Developer Name Role Phone Kelly Roberts RN Unavailable [phone] Reason for Visit * Reason Onset Date Comments Results 04/02/2018 Encounter Details Date Type Department Care Team (Late st Contact Info) Description 04/02/2018 Telephone [facility] [id number] [address] [address] Coll[address], TOOL AND MACHINE MA[facility]TAIN[facility] [address] [facility] [address] [place] [address] Results Social History Tobacco Use [...] Telephone Encounter - Ct Collado APRN-CNP - 04/02/2018 2:32 PM CDT Patient's RUQ US shows cholelithiasis with possible acute cholecystitis. I discussed with Dr. Herring and Dr. Herring recommends a cholecystectomy Friday04/06/2018 with an intraoperative EGD to assess her GERD symptoms. I spoke with the patient regarding this. Patient will speak with her boss and call me back. All other questions were addressed. documented in this encounter Plan of Treatment Not on file documented as of this encounter Visit Diagnoses Not on filedocumented in this encounter Care Teams Portal Developer Relationship Specialty Start Date End Date Kelly Roberts RN Wire Weaving Loom Setter 12/28/14 documented as of this encounter
--- OUTSIDE RECORDS SUMMARY | 2024-11-15 03:19 | XMS_ITS | Encounter Summary ---
Author Organization [facility] Address [address] [place] [address] Care Team Providers Care Recordings Librarian Name Role Phone Unavailable Primary Care Provider Unavailabl e Encounter Details Date Type Department Care Team (Late st Contact Info) Description 07/25/2014 Orders Only [facility] Weight Management Services [address] [facility] [place] [address] [place] [address] [facility] [address] [place] [address] Morbid obesity (HCC) Social History Tobacco Use Types Packs/Day Years Used Date Smoking Tobacco: Never Smokeless Tobacco: Never Alcohol Use Standard Drinks/Week Comments Yes 0 (1 standard drink = 0.6 oz pur e alcohol) social Sex and Gender Information Value Date Recorded Sex Assigned at Not on file Gender Identity Not on file Sexual Orientation Not on file documented as of this encounter Plan of Treatment Not on file documented as of this encounter Visit Diagnoses Diagnosis Morbid obesity (HCC)- Primary Morbid obesity documented in this encounter
--- OUTSIDE RECORDS SUMMARY | 2024-11-15 03:19 | XMS_ITS | Encounter Summary ---
Author Organization [facility] Address [address] [place] [address] Care Team Providers Care Clerical Manager Name Role Phone Unavailable Primary Care Provider Unavailabl e Encounter Details Date Type Department Care Team (Latest Contact Info) Description 12/14/2014 8:00 AM [employer] - 12/14/2014 11:59 PM [facility] [facility] Hospital Encounter [facility] Pret[facility] [address] [facility] [address] [place] [address] [place] [address] [facility] [address] [place] [address] Discharge Disposition: Home or Self [...] - Inhaled Oxygen Concentration - - Weight - - Height 182.9 cm (6') 12/14/2014 8:19 AM [employer] Body Mass Index - - documented in this encounter Medications at Time of Discharge Medication Sig Dispensed Refills Start Date End Date buPROPion SR 12hr (WELLBUTRIN-SR) 150 MG tablet Take 150 mg by mouth once daily. carisoprodol (SOMA) 350 MG tablet Take 1 Tab by mouth 3 times daily as needed. 80 Tab 0 12/29/2014 acetaminophen (TYLENOL) 160 MG/5ML SOLN solution Take 15.65 mL by mouth every 6 hours as needed for Fever or Pain. 12/29/2014 06/26/2015 ALBUTEROL INIndications:Morbid obesity (HCC) Inhale by mouth as needed. Bring day of surgery 04/06/2018 buPROPion XL 24hr (WELLBUTRIN-XL) 150 MG tablet 3 10/29/2014 12/27/2014 carisoprodol (SOMA) 350 MG tablet Take 1 Tab by mouth 3 times daily. 80 Tab 0 04/12/2011 12/29/2014 hydrocortisone butyrate (LOCOID) 0.1 % OINT ointment 3 12/08/2014 12/27/2014 hydrocortisone butyrate 0.1 % cream - ketoconazole 2% cream 50:50 CREA Apply to affected area 2 times daily as needed. 11/04/2021 labetalol (NORMODYNE; TRANDATE) 100 MG tablet Take 100 mg by mouth 3 times daily. Instructed to take AM of surgery 06/26/2015 lansoprazole (PREVACID) 30 MG capsule Take 1 Cap by mouth daily before breakfast. 30 Cap 5 12/29/2014 04/03/2018 metFORMIN (GLUCOPHAGE) 500 MG tabletIndications:Polycy stic Ovary Syndrome Take 500 mg by mouth 2 times daily with morning and evening meal. Indications: Polycystic Ovary Syndrome 12/29/2014 methyldopa (ALDOMET) 500 MG tablet Take 500 mg by mouth 2 times daily. Instructed to take AM of surgery 06/26/2015 oxyCODONE (ROXICODONE) 5 MG/5ML oral solution Take 5 mL by mouth every 4 hours as needed. 400 mL 0 12/28/2014 06/26/2015 oxyCODONE-acetaminophen (PERCOCET) 5-325 MG tabletIndications:Morbid obesity (HCC) Take 1 Tab by mouth every 4 hours as needed for Pain. 12/29/2014 sucralfate (CARAFATE) 1 GM/10ML suspension Take 10 mL by mouth 4 times daily - before meals & nightly. 420 mL 1 12/29/2014 06/26/2015 documented as of this encounter Plan of Treatment Not on file documented as of this encounter Procedures Procedure Name Priority Date/Time Associated Diagnosis Comments VITAMIN B1 Routine 12/14/2014 8:50 AM [employer] Preoperative examination CBC W AUTO DIFFERENTIAL Routine 12/14/2014 8:50 AM [employer] Preoperative examination COMPREHENSIVE METABOLIC PANEL Routine 12/14/2014 8:50 AM [employer] Preoperative examination VITAMIN B12 Routine 12/14/2014 8:50 AM [employer] Preoperative examination EKG 12-LEAD Routine 12/14/2014 8:32 AM [employer] Preoperative examination documented in this encounter Results * VITAMIN B12 (12/14/2014 8:50 AM [facility] [employer]) Vitamin B12 338 211 - 911 pg/mL 12/14/2014 2:19 PM [employer]IFE [facility] Blood BLOOD SPECIMEN / Unknown 12/14/2014 8:50 AM [employer]IFE 12/14/2014 9:58 AM [employer]IFE Rashawn Herring MD LAB - CHEMISTRY PALMA GARRIDO [facility] Organization Address City/State/[facility] [[email or web address]] Co de Phone Number [facility] [address] [place] [address] * CBC W AUTO DIFFERENTIAL (12/14/2014 8:50 AM C[employer]) WBC 8.5 4.4 - 10.7 x10^9/L 12/14/2014 10:19 AM [facility] RBC 4.18 3.80 - 5.20 x10^12/L 12/14/2014 10:19 AM [facility] Hemoglobin 12.7 12.0 - 15.6 gm/dL 12/14/2014 10:19 AM [facility] Hematocrit 37.7 35.9 - 45.5 % 12/14/2014 10:19 AM [facility] MCV 90.2 80.7 - 98.3 fl 12/14/2014 10:19 AM [facility] MCH 30.4 26.7 - 34.0 pg 12/14/2014 10:19 AM [facility] MCHC 33.7 30.8 - 35.9 gm/dL 12/14/2014 10:19 AM [facility] Platelet Count 264 153 - 416 x10^9/L 12/14/2014 10:19 AM [facility] RDW-CV 13.1 12.1 - 14.9 % 12/14/2014 10:19 AM [facility] MPV 11.7 9.4 - 12.9 fl 12/14/2014 10:19 AM [facility] Neutrophils % 60.5 44.0 - 73.0 % 12/14/2014 10:19 AM [facility] Lymphocytes % 30.3 20.0 - 43.0 % 12/14/2014 10:19 AM [facility] Monocytes % 7.2 5.0 - 13.0 % 12/14/2014 10:19 AM [facility] Eosinophils % 1.4 0.0 - 6.0 % 12/14/2014 10:19 AM [facility] Basophils % 0.2 0.0 - 2.0 % 12/14/2014 10:19 AM [facility] Immature Granulocytes 0.4 0 - 1 % 12/14/2014 10:19 AM [facility] Neutrophil Absolute 5.11 2.01 - 7.14 x10^9/L 12/14/2014 10:19 AM [facility] Lymphocytes Absolute 2.56 1.07 - 3.94 x10^9/L 12/14/2014 10:19 AM [facility] Monocytes Absolute 0.61 0.26 - 1.07 x10^9/L 12/14/2014 10:19 AM [facility] Eosinophils Absolute 0.12 0 - 0.47 x10^9/L 12/14/2014 10:19 AM [facility] Basophils Absolute 0.02 0 - 0.08 x10^9/L 12/14/2014 10:19 AM [facility] Immature Granulocytes Absolute 0.03 0.00 - 0.06 x10^9/L 12/14/2014 10:19 AM [facility] Blood BLOOD SPECIMEN / Unknown 12/14/2014 8:50 AM [employer] 12/14/2014 9:58 AM [employer] KNIFE Rashawn Herring MD LAB - HEMATOLOGY ORD ERABLES [facility] [address] [id number] * VITAMIN B1 (12/14/2014 8:50 AM [facility]) Pathologist [facility] Vitamin B1 Whole Blood 131 70 - 180 nmol/L 12/16/2014 6:27 AM [facility] ([facility]) Comment: INTERPRETIVE INFORMATION: Vitamin B1, Whole Blood This assay measures the concentration of thiamine diphosphate (TDP), the primary active form of vitamin B1. Approximately 90 percent of vitamin B1 present in whole blood is TDP. Thiamine and thiamine monophosphate, which comprise the remaining 10 percent, are not measured. Test developed and characteristics determined by [employer]. See Compliance Statement B: [email or web address]/CS Blood specimen (specimen) BLOOD SPECIMEN / Unknown 12/14/2014 8:50 AM [employer] 12/14/2014 9:58 AM [facility] Rashawn Herring MD LAB - CHEMISTRY PALMA GARRIDO Performing Organization Address City/[facility]/ZIP Co de Phone Number [facility] ([facility]) [address] * COMPREHENSIVE METABOLIC PANEL (12/14/2014 8:50 AM [facility]) Pathologist [facility] Glucose 95 74 - 106 mg/dL 12/14/2014 10:26 AM [facility] Sodium 138 136 - 145 mmol/L 12/14/2014 10:26 AM [facility] Potassium 3.9 3.5 - 5.1 mmol/L 12/14/2014 10:26 AM [facility] Chloride 105 98 - 107 mmol/L 12/14/2014 10:26 AM [facility] CO2 26 22 - 31 mmol/L 12/14/2014 10:26 AM [facility] Calcium 8.7 8.5 - 10.1 mg/dL 12/14/2014 10:26 AM [facility] Anion Gap 7 5 - 15 mmol/L 12/14/2014 10:26 AM [facility] BUN 15 7 - 21 mg/dL 12/14/2014 10:26 AM [facility] Creatinine 0.75 0.50 - 1.30 mg/dL 12/14/2014 10:26 AM [facility] eGFR by MDRD >60 >60 mL/min/1.7 3m2 12/14/2014 10:26 AM [facility] eGFR by MDRD >60 >60 mL/min/1.7 3m2 12/14/2014 10:26 AM [facility] Alkaline Phosphatase 119 38 - 126 U/L 12/14/2014 10:26 AM [employer] [facility] ALT 38 12 - 78 U/L 12/14/2014 10:26 AM [employer] [facility] AST 21 5 - 40 U/L 12/14/2014 10:26 AM [facility] Protein Total 7.5 6.4 - 8.2 gm/dL 12/14/2014 10:26 AM [facility] Albumin 3.8 3.4 - 5.0 gm/dL 12/14/2014 10:26 AM [facility] Bilirubin Total 0.4 0.2 - 1.0 mg/dL 12/14/2014 10:26 AM [employer] [facility] Blood BLOOD SPECIMEN / Unknown 12/14/2014 8:50 AM [employer] 12/14/2014 9:58 AM [employer] Rashawn Herring MD LAB - CHEMISTRY [place] [facility] Organization Address City/State/ZIP Co de Phone Number [facility] [address] [place] [address] * EKG 12-LEAD (12/14/2014 8:32 AM C[employer]) Ventricular Rate 79 BPM [facility] Atrial Rate 79 BPM [facility] P-R Interval 168 ms [facility] QRS Duration ms 92 ms [facility] Q-T Interval ms 396 ms [facility] QTC Calculation (Bezet) 454 ms [facility] Calculated P Gilbert -7 degrees [facility] Calculated R Gilbert 93 degrees [facility] Calculated T Gilbert 43 degrees [facility] Interpretation EKG Normal sinus rhythm Rightward axis Borderline ECG No previous ECGs available Confirmed by PHIL MCKENZIE SANDIE ([id number]) on 12/14/2014 3:36:58 PM [facility] 12/14/2014 8:32 AM [employer] 12/14/2014 3:36 PM [employer] Rashawn Herring MD ECG ORDERABLES [facility] documented in this encounter Visit Diagnoses Diagnosis Preoperative examination- Primary Preoperative examination, unspecified documented in this encounter
--- OUTSIDE RECORDS SUMMARY | 2024-11-15 03:19 | XMS_ITS | Encounter Summary ---
Author Organization [facility] Health Address [address] [place] [address] Care Team Providers Care Head Wrestling Coach Name Role Phone Unavailable Primary Care Provider Unavailabl e Reason for Visit * Reason Onset Date Comments Follow-up 12/15/2014 Encounter Details Date Type Department Care Team (Late st Contact Info) Description 12/15/2014 Telephone [facility] [address] [facility] [facility] [address] [place] [address] [place] [address] [facility] [address] [place] [address] Follow-up Social History Tobacco Use Types Packs/Day Years Used Date Smoking Tobacco: Never Smokeless Tobacco: Never Alcohol Use Standard Drinks/Week Comments Yes 0 (1 standard drink = 0.6 oz pur e alcohol) social Sex and Gender Information Value Date Recorded Sex Assigned at Not on file Gender Identity Not on file Sexual Orientation Not on file documented as of this encounter Miscellaneous Notes * Telephone Encounter - Tasha Aldridge RN - 12/15/2014 1:32 PM SENIOR SOUS CHEF Pt called me back and we discussed how she is doing. She says she is fine today but was just very tired and was over tired yesterday after class. She states she had to get up very early yesterday anddid not get enough sleep. She says she fell asleep as soon as she had gotten home and is feeling much better today. OR SOUS CHEF documented in this encounter Plan of Treatment Not on file documented as of this encounter Visit Diagnoses Not on filedocumented in this encounter
--- OUTSIDE RECORDS SUMMARY | 2024-11-15 03:19 | XMS_ITS | Encounter Summary ---
Author Organization [facility] Health Address [address] [place] [address] Care Team Providers Care Sales Marketing Director Name Role Phone Kelly Roberts RN Unavailable [phone] Iwona Lorenz MD Primary Care Provider [phone] Encounter Details Date Type Department Care Team (Late st Contact Info) Description 05/03/2011 [facility] Outpatient Visit EXTERNAL NON-[facility] [place] [address] [place] [address] Social History Tobacco Use Types [...] filedocumented in this encounter Care Teams Sales Marketing Director Relationship Specialty Start [place] [address] [place] [address] PCP - General 01/08/24 Kelly Roberts RN Client Project Coordinator 2/11/15 documented as of this encounter
--- OUTSIDE RECORDS SUMMARY | 2024-11-15 03:19 | XMS_ITS | Encounter Summary ---
Author Organization [facility] Address [address] [facility] [place] [address] Care Team Providers Care Template Cutter Name Role Phone Unavailable Primary Care Provider Unavailabl e Reason for Visit * Reason Comments Follow-up Encounter Details Date Type Department Care Team (Late st Contact Info) Description 04/30/2011 10:45 AM CDT Office Visit [facility] Neurosciences [id number] [place] [address] [place] [phone] [address] Lumbago with sciatica (Primary Dx); Spondylolisthesis; DDD (degenerative disc disease), lumbar; Lumbar spinal stenosis; Right leg pain Social History Tobacco Use Types Packs/Day Years Used Date Smoking Tobacco: Never Smokeless Tobacco: Never Alcohol Use Standard Drinks/Week Comments Yes 0 (1 standard drink = 0.6 oz pur e alcohol) social Sex and Gender Information Value Date Recorded Sex Assigned at Not on file Gender Identity Not on file Sexual Orientation Not on file documented as of this encounter Progress Notes * Sean Deleon MD - 04/30/2011 11:45 AM CDT Mrs. Finesse Mcclainx is approximately 3.5 months s/p L5-S1 MIS decompression, TLIF, open reductionof spondylolisthesis, and IPSF and now presents for further routine postoperative care. Since our last visit, she reports that the left sided hip and LLE pain that she was having prior to surgery hasremained completely resolved, but she has developed persistent and worsened pain symptoms in the right buttock and hip radiating down the posterior aspect of the right thigh to the right calf, with afeeling like she is being stabbed in the right calf. She has had intermittent severe electrical shock sensations in the lower back which extends to the right hip, and she also reports bad tingling in the left ankle and foot, which has been so bad at times that she has trouble getting out of bed. The symptoms are particularly bad in the mornings, associated with a lot of stiffness in the back, right hip and RLE. These symptoms are similar to the symptoms that she was previously having on the left, just switched to the opposite side. Her pain tends to be exacerbated when she is more active and multitasking. Although she is pleased with the resolution of her preoperative left hip and LLE pain, she feels that her current pain symptoms in the right side of the back, right hip, and right LE are worse than her preoperative pain. She is quite frustrated with her ongoing pain, and is tearful at times during our visit. She has seen Dr. Leroy Cervantes, her pain management physician, following our last visit, and he has performed right sided facet injections (presumably at L5- S1), a right sided sciatic nerve block, and a lumbar epidural injection. Unfortunately, none of these provided her any relief, and Mrs. Sandoval reports that he had difficulty with the epidural as the injectate didn't go where he wantedit to go because something was blocking it . She wonders whether there is some scar tissue causing this and is certain that there is something wrong with her back. She states that Dr. Cervantes also feels that there is something wrong and that he feels that something I did during surgery caused her current right sided symptoms which she didn't have before surgery. She reports that he said something to the effect of putting rods and screws in the spine could definitely have caused this pain , and also questioned whether her surgery should have been done. She also reports that there is some confusion about what surgery I did, as Dr. Cervantes did not think that I removed the entirety of the disc. He also apparently stated to her that he is not sure Dr. Makr (who is the surgeon that he referred her to) would have recommended the surgery that I performed and that Mrs. Sandoval was the one who chose me as her surgeon, not him. Finally, she reports that Dr. Cervantes is willing to take over the management of her pain medication, although only after I have released her from my care as Ramana apparently doing things that he wouldn't do . After telling me these details about her interactions with Dr. Cervantes, she stated that she wasn'tvery comfortable with him as her pain management doctor and that she was considering finding a different physician. She stated that he was arrogant at times, with what is described by her to be a paternalistic attitude. I found her telling me these details regarding Dr. Cervantes somewhat odd-- at first, she appeared to use his statements to her to support that she felt that something was wrong with her back from the surgery, but later she expressed that she didn't feel comfortable with his careor attitude. I am uncertain whether these statements that she is attributing to him are accurate. She emphasizes at several times during our visit that she is really having bad pain and is not making it up . She expresses some displeasure with my nurse, Criss, because she had been reluctant tocontinue her on high dose Percocet for pain management. Mrs. Sandoval felt it odd that I would tryto discontinue her pain medication two months following surgery, feeling this was too soon . I informed her that this was not unusual, and that many surgeons (including my partners) wean patients off narcotic analgesics much sooner than that following back surgery. On exam, her lumbar incisions are well-healed. There is mild tenderness in the right paraspinous region adjacent to and below the level of her right sided incision. There is no erythema, fluctuance, drainage, or tenderness at the incision sites, and no spinal deformity is noted. Motor examination reveals trace give-way weakness in the right dorsi- and plantar-flexors. Otherwise, she has normal strength elsewhere and normal tone throughout. Sensory exam reveals diminished sensation to light touch over the dorsum of the right foot and lateral right leg. There is also subtle loss of light touch sensation over the right medial leg and over both anterior thighs. Otherwise sensation is grossly intact to light touch elsewhere. Reflexes are 1+ and symmetric throughout. Toes are downgoing. Straight leg-raise on the right elicits some hamstring tightness and mild lower back discomfort, but is otherwise negative. Straight leg-raise is negative on the left. Dias's signs are absent. Gait and station are normal. Mrs. Sandoval has developed persistent and worsening pain in the right side of the lower back, right hip, and RLE following surgery, which is actually worse than her preoperative pain. I remain uncertain as to the cause of this postoperative pain. The right sided thecal sac and nerve root at the L5-S1 level were not exposed or manipulated during her surgery, and her postoperative imaging (MRI 02/01/11) did not demonstrate any impingement of the right sided nerve roots at the L5-S1 level by the hardware or any other cause. No evidence of right sided nerve root impingement was seen at any levelin the lumbar spine. I am uncertain what she or Dr. Cervantes was getting at in terms of her surgery having something to do with her current RLE pain as there is no evidence of this on imaging and no intraoperative issue that would have caused this to develop. I provided Mrs. Sandoval a copy of my operative note to clarify the details of the surgery to her and Dr. Cervantes. I asked Mrs. Sandovalto have Dr. Cervantes call me if he had any particular concerns regarding her surgery or her care, and suggested that she seek a second opinion regarding her issues if either she or Dr. Cervantes had any concerns regarding her recent surgery or my management of her back problem. I discussed the option of a repeat MRI of the lumbar spine to further rule out any structural issues that might be causing her right sided symptoms. She wishes to proceed with this imaging, and we will be arranging this for her in the near future. I will make further treatment recommendations and follow up arrangements for her as needed, once I have had an opportunity to review this imaging study. If this study is unrevealing as to a cause of her ongoing symptoms, then we will need to focus on continued conservativemanagement of her pain with medications, a regular exercise program, and further pain management. Idid provide her a script for Percocet 7.5/325 for management of her symptoms until a further care plan can be established after her imaging study. documented in this encounter Plan of Treatment Not on file documented as of this encounter Results * XR LUMBAR SPINE 2 OR 3 VW (05/10/2011) Anatomical Region Laterality Modality Spine Other Sean Deleon MD DIAGNOSTIC IMAGING O RDERABLES documented in this encounter Visit Diagnoses Diagnosis Lumbago with sciatica- Primary Sciatica Spondylolisthesis Congenital spondylolisthesis DDD (degenerative disc disease), lumbar Degeneration of lumbar or lumbosacral intervertebral disc Lumbar spinal stenosis Spinal stenosis, lumbar region, without neurogenic claudication Right leg pain Pain in limb documented in this encounter
--- OUTSIDE RECORDS SUMMARY | 2024-11-15 03:19 | XMS_ITS | Encounter Summary ---
Author Organization [facility] Health Address [address] [place] [address] Care Team Providers Care Cloth Mender Name Role Phone Kelly Roberts RN Unavailable Reason for Visit * Reason Comments Follow-up 1 mo [facility] Encounter Details Date Type Department Care Team (Late st Contact Info) Description 01/24/2015 1:30 PM CDT Office Visit [facility] [id number] [address] Suzette Wiley, CÉSAR-FILM ARCHIVIST [address] [facility] [address] [place] [address] Bariatric surgery status (Primary Dx); Obesity; Abnormal weight loss; HTN (hypertension) Social History Tobacco Use Types Packs/Day Years [...] Sign Reading Time Taken Comments Blood Pressure 149/93 01/24/2015 1:40 PM CDT Pulse 80 01/24/2015 1:40 PM CDT Temperature - - Respiratory Rate - - Oxygen Saturation 100% 01/24/2015 1:40 PM CDT Inhaled Oxygen Concentration - - Weight 112 kg (247 lb) 01/24/2015 1:40 PM CDT Height 182.9 cm (6') 01/24/2015 1:40 PM CDT Body Mass Index 33.5 01/24/2015 1:40 PM CDT documented in this encounter Functional [...] Patient Instructions * Patient Instructions* Suzette Wiley, BDC MANAGER-FILM ARCHIVIST - 01/24/2015 2:10 PM CDT POST OPERATIVE VISIT INSTRUCTIONS 1 Month Dietary ?? Journaling helps keep you honest and on track! Calculate your protein grams every day. ?? It is important that you are learning to eat to live and not live to eat. Food likely does not give you as much pleasure as it has in the past. Eating protein is not optional. Failure to follow the guidelines laid out in your dietary booklet can result in serious health problems. ?? For Val en-Y divided gastric bypass patients; females should have a minimum of 60 grams per day, men 80 grams of protein per day. You should be able to tolerate anywhere from 2 bites to 1/2 cup of food per meal. At least half of your meal should be protein. If you cannot keep fluids down, please contact our office. ?? For adjustable gastric band patients; you should be eating your protein first. ?? You should be getting 64 ounces of water per day. Liquids from your protein supplementation can count toward your fluid goals. ?? Advance diet as outlined in your nutrition booklet. Do not advance any faster than what has beenrecommended. ?? Limit coffee to 1 to 2 cups per day. ?? Meals should take a minimum of 30 minutes to consume. ?? Do not graze on cheese, peanut butter and nuts to meet your protein goals. ?? Drink liquid protein between meals for hunger. For band patients, protein bars are acceptable. ?? Dietary indiscretion can be fatal. Contact our office if this occurs. Vitamins ?? Use only vitamins recommended by our program. Please refer back to your booklet and handouts forthe most current list. Exercise ?? There are no restrictions of any kind. ?? Take one more step tomorrow than what you took today. ?? If you have not started resistance activity do so. Muscle mass will help you burn calories more efficiently. Behavior Modification ?? Make a list of behaviors that got you here in the first place. Put that list in a place you visit often. ?? Please don't weigh daily or monthly. Weighing once a week is a healthy habit. Wound Care ?? You may swim and take tub baths provided all of your incisions are healed. General Medical ?? If you begin finding your CPAP on the floor in the mornings, please contact your PCP to have a second night sleep study completed. It is possible that you need to have the pressures within your machine reduced. You should not stop wearing your CPAP without consulting your doctor. ?? Your pain levels should be greatly improved. If they are not, please let us know. ?? Vomiting is not normal. If you cannot attribute vomiting to something that you have done, pleasenotify our office. ?? For females control is strongly recommended for the first 18 months after surgery. Medications--General Information ?? You do not have to crush your pills. Please take whole pills. ?? If the pill is large, cut it into 2 pieces. ?? You may take a couple of small pills at a time. ?? You should not vomit after taking medications. If this consistently occurring, please notify ouroffice. Ulcer Prevention ?? Ulcer medications should be taken for a minimum of 6 months after surgery. ?? DO NOT SMOKE. If you return to smoking notify our office immediately. Blood Pressure Medication ?? If you consistently find yourself getting light headed when you go from a laying positions to a sitting position OR from a sitting position to a standing position, contact your primary care physician for a medication adjustment. Diabetic Medication ?? Continue to monitor your blood sugars as previously required. ?? Once your fasting blood sugar is less than 120 mg/dl for 3 consecutive mornings please notify your primary care physician for a medication adjustment. Psychiatric Medication ?? If not restarted, please do so immediately. ?? If you do not feel well controlled on your current medication regimen, please call your primary care physician or psychiatrist for a medication adjustment. Follow-up ?? For a Val-en-Y divided gastric bypass, vertical sleeve gastrectomy or revision your next appointment will be in 2 months. ?? Adjustable gastric band patients will be directed to the next appropriate band fill clinic. documented in this encounter Progress Notes * Suzette Wiley APRN-CNP - 01/24/2015 2:05 PM CDT 1 Month Bariatric Surgery Follow up Date of Surgery:12/2014 sleeve ( [facility] ) Initial weight: 272 Today's weight: 247 Total weight loss: 28 lbs WM Ramirez is here today for a 1 month postoperative follow up visit. She reports that she is doing well overall She is getting in all of her protein, fluids and vitamins She denies any nausea, vomiting, reflux or abdominal pain She states that she is out of the carafate and occasional has pain after eating and this medicationhelped. She is requesting a refill She is moving her bowels without difficulty. She reports that she is off her metformin for PCOS She is continued on HTN and pain medication for her back. Review of symptoms as above, rest of the systems were reviewed and are negative. BP 149/93 Pulse 80 Wt 247 lb (112.038 kg) BMI 33.49 kg/m2 Current Outpatient Prescriptions Medication ??? sucralfate (CARAFATE) 1 GM/10ML suspension ??? acetaminophen (TYLENOL) 160 MG/5ML SOLN solution ??? carisoprodol (SOMA) 350 MG tablet ??? sucralfate (CARAFATE) 1 GM/10ML suspension ??? lansoprazole (PREVACID) 30 MG capsule ??? oxyCODONE (ROXICODONE) 5 MG/5ML oral solution ??? buPROPion SR 12hr (WELLBUTRIN-SR) 150 MG tablet ??? hydrocortisone butyrate 0.1 % cream - ketoconazole 2% cream 50:50 CREA ??? ALBUTEROL IN ??? methyldopa (ALDOMET) 500 MG tablet ??? labetalol (NORMODYNE; TRANDATE) 100 MG tablet No current facility-administered medications for [...] HEENT: Normal Cardiovascular: Normal Respiratory: Normal Gastrointestinal: Normal Genitourinary: Normal Musculoskeletal: Normal Skin / Breast [...] Weight loss GERD: Continued on PPI HTN: Continued on medication PCOS: off metformin Diet: Continue with 60 gms of protein, 64 oz fluid daily Eat slowly, taking 30 minutes to finish a meal Drink liquid protein between meals for hunger Follow dietary restrictions Support Groups: Encouraged to attended Vitamins: Continue with bariatric multivitamin, Ca with D, B12, prilosec, B1 and vitamin D. Exercise: No restrictions General medical: continue to follow up with your PCP for medication adjustments if needed. Labs: Will be checked at 6 months, 1 year and then annually Follow up: In 5 months with routine labs or PRN Total time of visit: 15 minutes documented in this encounter Plan of Treatment Not on file documented as of this encounter Visit Diagnoses Diagnosis Bariatric surgery status- Primary Obesity Obesity, unspecified Abnormal weight loss Loss of weight HTN (hypertension) Unspecified essential hypertension documented in this encounter Care Teams Cloth Mender Relationship Specialty Start Date End Date Kelly Roberts, RN Photography Sales Associate 12/28/14 documented as of this encounter
--- OUTSIDE RECORDS SUMMARY | 2024-11-15 03:19 | XMS_ITS | Encounter Summary ---
Author Organization [facility] Health Address [address] [place] [address] Care Team Providers Care Plating And Point Assembly Supervisor Name Role Phone Unavailable Primary Care Provider Unavailabl e Reason for Visit * Reason Onset Date Comments Follow-up 12/15/2014 Encounter Details Date Type Department Care Team (Late st Contact Info) Description 12/15/2014 Telephone [facility] Weight Management Services [id number] [place] [address], [facility] [address] [place] [address] [place] [phone] [facility] [address] [place] [address] Follow-up Social History Tobacco Use [...] Encounter - Tasha Aldridge RN - 12/15/2014 9:55 AM GORE INSERTER Called pt to check up on her since she had complained of not feeling well after class. Left messageand left phone number for call back. INSERTER documented in this encounter Plan of Treatment Not on file documented as of this encounter Visit Diagnoses Not on filedocumented in this encounter
--- OUTSIDE RECORDS SUMMARY | 2024-11-15 03:19 | XMS_ITS | Encounter Summary ---
Author Organization [facility] Address [address] [place] [address] Care Team Providers Care Medical Service Representative Name Role Phone Kelly Roberts RN Unavailable [phone] Reason for Visit * Auth/Cert Specialty Diagnoses / Procedures Referred By Jesse santana Referred To Contact Procedures LAPAROSCOPIC CHOLECYSTECTOMY Referral ID Status Reason Start Date Expiration Date Visits Re quested Visits Authorized [id number] 1 1 Encounter Details Date Type Department Care Team (Latest Contact Info) Description 04/06/2018 6:58 AM CDT - 04/06/2018 12:56 PM CDT Hospital Encounter [facility] [id number] [place] [address] [place] [id number] [facility] [address] [place] [address] Surgery General Discharge Disposition: Home or Self Care Social [...] Sign Reading Time Taken Comments Blood Pressure 137/76 04/06/2018 11:54 AM CDT Pulse 81 04/06/2018 11:54 AM CDT Temperature 36.8 ??C (98.3 ??F) 04/06/2018 11:54 AM C DT Respiratory Rate 16 04/06/2018 11:54 AM CDT Oxygen Saturation 93% 04/06/2018 11:54 AM CDT Inhaled Oxygen Concentration - - Weight 99.3 kg (219 lb) 04/06/2018 7:34 AM CDT Height 182.9 cm (6') 04/06/2018 7:34 AM CDT Body Mass Index 29.7 04/06/2018 7:34 AM CDT documented in this encounter Functional [...] daily as needed. 80 Tab 0 12/29/2014 oxyCODONE (ROXICODONE) 5 MG/5ML oral solution Take 10 mL by mouth every 4 hours as needed for Pain 240 mL 04/06/2018 vortioxetine (TRINTELLIX) 10 MG tablet Take 10 mg by mouth once daily hydrocortisone butyrate 0.1 % cream - ketoconazole 2% cream 50:50 CREA Apply to affected area 2 times daily as needed. 11/04/2021 omeprazole (PRILOSEC) 20 MG capsuleIndications:Righ t upper quadrant abdominal pain,Diarrhea, unspecified type,Epigastric pain Take 1 capsule by mouth 2 times daily,before breakfast and supper 30 capsule 5 03/31/2018 06/26/2018 sucralfate (CARAFATE) 1 GM/10ML suspensionIndications:R ight upper quadrant abdominal pain,Diarrhea, unspecified type,Epigastric pain Take 10 mL by mouth 4 times daily 1200 mL 03/31/2018 08/17/2019 documented as of this encounter H&P Notes * Rashawn Herring MD - 04/05/2018 7:54 PM CDT BARIATRIC EVALUATION HISTORY & PHYSICAL Chief Complaint: epigastric abdominal pain and heartburn HPI: Pt is a 48yo F with a hx of recurrent epigastrc abdominal pain and heartburn for the last 4-6 months. The pain is sharp and aggravated by food and alleviated by time. There is no associated nausea, there is heartburn and she has not been taking ppi or H2 navi. She underwent RUQ US noting +livingston's sign and gallstones. Has a hx of sleeve gastrectomy in 2014 with good weight loss. Past Medical History: Diagnosis Date ??? Arthritis ??? Asthma ??? Chest pain cath 06/2013 pt states ok ??? DJD (degenerative joint disease) ??? Elevated cholesterol not on Rx ??? Fatty liver disease, nonalcoholic ??? History of gastric ulcer ??? Hypertension ??? Migraine ??? Motion sickness ??? PCOS (polycystic ovarian syndrome) Past Surgical History: Procedure Laterality Date ??? ACL RECONSTRUCTION 2008 Right ??? CARPAL TUNNEL SURGERY 1992 Bilateral ??? Gastrectomy 12/27/2014 LAPAROSCOPIC VERTICAL SLEEVE GASTRECTOMY ??? Hammer Toe Repair 2000 Left foot w/ bunionectomy ??? LUMBAR SPINE FUSION 01/17/2011 TLIF L5-S1 MINIMALLY INVASIVE ??? OTHER SURGERY 2005 6 EYE SURGERIES ??? OTHER SURGERY 2008 Left ANKLE reconstruction ??? OTHER SURGERY mortons neuroma removed right and left foot ??? Rotator Cuff Repair 2008 LEFT ??? Rotator Cuff Repair Left 2017 No current facility-administered medications for this encounter. Current Outpatient Prescriptions Medication ??? albuterol HFA (PROVENTIL;VENTOLIN;PROAIR) 108 (90 BASE) MCG/ACT inhaler ??? vortioxetine (TRINTELLIX) 10 MG tablet ??? omeprazole (PRILOSEC) 20 MG capsule ??? sucralfate (CARAFATE) 1 GM/10ML suspension ??? carisoprodol (SOMA) 350 MG tablet ??? buPROPion SR 12hr (WELLBUTRIN-SR) 150 MG tablet ??? ALBUTEROL IN ??? hydrocortisone butyrate 0.1 % cream - ketoconazole 2% cream 50:50 CREA Allergies Allergen Reactions ??? Morphine Nausea and/or Vomiting Can take derivatives ??? Erythromycin Rash ??? Hydrocodone Nausea and/or Vomiting ??? Neurontin [Gabapentin] Other Restless Social History Smoking status: Never Smoker Smokeless status: Never Used Alcohol use: Yes Comment: social [...] Osteo Maternal Grandfather ??? Stroke Maternal Grandfather Review of Systems: Constitutional: denies recent significant weight loss HEENT: Denies headaches, vision or auditory changes Cardiovascular: Denies chest pain, orthopnea or palpitations Respiratory: Denies cough, hemoptysis. Oxygen dependent : No Gastrointestinal: +heartburn and abdominal pain, no melena or hematemesis Genitourinary: denies hematuria, dysuria Musculoskeletal: denies muscle weakness Endocrine: Denies diabetes mellitus or thyroid issues Allergic / Immuno: Normal Neuro / Psych: denies depression, SI/SA Skin: denies open wounds, skin infections Functional Health Status prior to surgery : Independent- The patient does not require assistance from another person for any ADLs.. Physical Examination: There were no vitals taken for this visit. Constitutional: well-developed, well-nourished, and in no distress. No distress. HENT: ?? Head: Normocephalic and atraumatic. Eyes: EOM are normal. No scleral icterus. Neck: No tracheal deviation present. Pulmonary/Chest: Effort normal. No stridor. No respiratory distress. Abdominal: Soft. Non tender, non distended Genitourinary: no groin masses Musculoskeletal: Normal range of motion. Exhibits no tenderness. Neurological: She is alert. GCS score is 15. Skin: Skin is warm. No erythema. Psychiatric: Mood and affect normal. No results for input(s): SODIUM, POTASSIUM, CHLORIDE, CO2, BUN, CREATININE, GLUCOSE, CALCIUM in thelast 91128 hours. No results for input(s): WBC, HGB, HCT, PLTCOUNT in the last 85766 hours. Ultrasound Abdomen Limited ?? Indication: Right upper quadrant pain ?? Technique: Henao scale and color images of the abdomen ?? Findings: There is mild diffuse increased echogenicity of liver without focal mass. Gallstones are seen within the gallbladder without wall thickening or pericholecystic fluid. The Livingston's sign is positive. The visualized pancreas and common bile duct are normal. The right kidney is normal. ?? IMPRESSION ?? Cholelithiasis with positive Livingston sign which can be seen with acute cholecystitis Diffuse fatty infiltration of the liver Risk / Benefits Risks and benefits were reviewed with patient including but not limited to , enteral leaks, damage to bile ducts, hemorrhage, damage to organs, infections, non guaranteed resultsetc. Questions were answered. Impression: Hx of sleeve gastrectomy presents with recurrent epigastric abdominal pain and heartburn Plan: 1. Epigastric abdominal pain: Laparoscopic cholecystectomy 2. Heartburn: upper endoscopy 3. Symptomatic cholelithiasias: Laparoscopic cholecystectomy Rashawn Herring MD 04/05/2018 documented in this encounter OR Notes * Operative - Rashawn Herring MD - 04/06/2018 10:20 AM CDT [facility] Operative Report OPERATIVE REPORT PATIENT:Finesse Ramirez ADMIT DATE: 04/06/2018 6:58 AM ACCT#: DATE OF SURGERY: 04/06/2018 : 1970 PHYSICIAN: Rashawn Herring MD 48 yrs Body mass index is 29.7 kg/(m^2). PREOPERATIVE DIAGNOSES: symptomatic cholelithiasis, epigastric abdominal pain, RUQ abdominal pain, heartburn Obesity, Body mass index is 29.7 kg/(m^2). Past Medical History: Diagnosis Date ??? Arthritis ??? Asthma ??? Chest pain cath 06/2013 pt states ok ??? DJD (degenerative joint disease) ??? Elevated cholesterol not on Rx ??? Fatty liver disease, nonalcoholic ??? History of gastric ulcer ??? Hypertension resolved with gastric sleeve 2014 ??? Migraine ??? Motion sickness ??? PCOS (polycystic ovarian syndrome) ??? Pure hypercholesterolemia POSTOPERATIVE DIAGNOSES: SAME PROCEDURES PERFORMED: Laparoscopic Cholecystectomy Intraoperative esophagogastroduodenscopy SURGEON: Rashawn Herring MD TAX SPECIALIST: Blanca Jenkins RN ANESTHESIA: General endotracheal. PROCEDURE: The patient was brought to the operating suite. Patient was placed under general endotracheal anesthesia. Patient was prepped and draped in the sterile fashion. Two periumbilical 5mm incisions were made with a 15-blade scalpel and an optical 5-mm port was placed under direct vision without difficulty. The peritoneal cavity was insufflated with CO2 gas to 15 mmHg pressure. A 45-degree angled laparoscope was placed into the peritoneal cavity. There was no blood, fluid, or evidence of intra-abdominal injury. A second 5-mm port was placed in the subxiphoid position. The third 5mm port was placed in the second periumbilical incision alongside the camera port and one additional 5mm port placed in the right flank. The patient was positioned in steep reverse Trendelenburg. There were mild omental attachments and adhesions to the fundus of the gallbladder. These were taken down using cautery. The fundus was grasped and retracted caudally. The infundibulum was grasped and retracted caudally and towards the right lower quadrant to expose Calot's triangle. The cystic duct and artery were dissected bluntly and individually skeletonized to obtain the critical view. There was dense scarring and adhesions in this area as well. Three clips were placed on each of these structures, two towards the portal triad and one at the interface with the gallbladder. The cystic duct and artery were then sharply transected using scissors. An L shaped electrocautery instrument was used to dissect the gallbladder from the gallbladder fossa and liver bed. The L shaped electrocautery instrument was used to finish dissecting the gallbladder free from the liver bed. The gallbladder was grasped atthe neck and an endoloop was placed across it and removed from the abdomen via the umbilical incision. The liver bed, cystic duct and artery stumps were visualized for leakage of bile or blood. Therewas none. The left lobe of the liver was elevated to evaluate the stomach sleeve and it appeared without significant adhesions and scar tissue. It had the expected sleeve gastrectomy shape and at thehiatus there was no obvious hiatal hernia, the anterior crural apex did not appear to have an opening into the mediastinum. The fascia of the 5mm trocar site where the gallbladder was extracted was closed with a 0 Vicryl suture in a transfascial fashion. The trocars were removed and the pneumoperitoneum was expelled. The incisions were closed with running subcuticular Vicryl sutures. Sterile dressing was placed. The gastroscope was inserted and passed thorugh the bite block into the posterior pharynx and into the esophagus. The gastroscope was further advanced to the level of the GE junction where the z-linewas noted at 37cm from the incissors. The gastroscope was further advanced and passed into the upper aspect of the gastric sleeve. The gastroscope was advanced through the remaining segments of the sleeve without issues. There was a patent pyloric channel and opening. The scope was further advancedinto the duodenum. On slow withdrawel evaluation of the duodenum was normal in appearance, without ulcers, masses, bleeding or inflammatory changes. The gastroscope was further withdrawn into the midsegment of the gastric sleeve where the antrum and pylorus appeared without significant erythematous streaks and there were no ulcers. The gastroscope was further withdrawn to the upper gastric sleeve to evaluate the remaining aspect of the sleeve. It appeared intact, the entire staple line was seen and there were no ulcers. The caliber/diameter was 3cm and Without rotation without evidence of strictures or narrowing at the incisura. At the level of the cardia there was either a narrowing at 2cm from the Zline or a sliding type hiatal hernia, it was difficult to tell. The gastroscope was straightened and further withdrawn to the level of the GE junction. The mucosa in the area of the lower e sophagus appeared normal. The patient tolerated the procedure well and was taken to recovery room in stable condition EBL: <5ml FINDINGS: no evidence of bile or blood leakage following gallbladder removal, normal appearing sleeve, ? Sliding type hiatal hernia PROSTHETICS: None SPECIMEN: Gallbladder COMPLICATIONS: None. Rashawn Herring MD * OR PreOp - Viji Ambrosio RN - 04/06/2018 8:05 AM CDT During IV start, RN recommended IV start of forearm, with good visualization of vein. Made patient aware Lido to be used. Location determined after patient requested IV go on the right side. RN recommended IV start on the right inner forearm. Patient then requested IV to go into wrist, vein was visualized. Lido used for start. Upon RN attempting to initiate IV in R wrist per pt request. Skin was noted to be very tough and RN requested assistance from patient's primary nurse. After repositioningthe Angiocath, IV was able to be completed. Patient verbalized that was a horrible IV. IV infused without swelling or increased pain. documented in this encounter Plan of Treatment Not on file documented as of this encounter Procedures Procedure Name Priority Date/Time Associated Diagnosis Comments LAPAROSCOPIC CHOLECYSTECTOMY 04/06/2018 8:50 AM CDT PATHOLOGY TISSUE EXAM (STL) Routine 04/06/2018 8:33 AM CDT Cholecystitis HCG URINE QUALITATIVE STAT 04/06/2018 7:16 AM CDT Preop examination documented in this encounter Results * GROSS + MICRO EXAM (STL) (04/06/2018 8:33 AM CDT) Case Report Surgical Pathology Report ? Case: [id number] ? Authorizing Provider: ??Rashawn Herring MD ? Collected: ? 04/06/2018 08:33 AM ? Ordering Location: ? [facility] ?Received: ?04/06/2018 10:33 AM ? Pathologist: ? Ray Chin MD ? Specimen: ?Gallbladder ? 04/07/2018 3:34 PM CDT [facility] Final Diagnosis 1. Gallbladder, cholecystectomy: -- Cholelithiasis ALMA/samuel 04/07/2018 3:34 PM CDT [facility] Gross Description The specimen is received [...] scattered throughout. Sections are submitted in A1. /samuel 04/07/2018 3:34 PM CDT [facility] Microscopic Description Microscopic examination supports pathologic diagnosis. ALMA/samuel 04/07/2018 3:34 PM CDT [facility] Disclaimer All histochemical and/or immunohistochemical results are interpreted with controls that demonstrate appropriate staining reactions before reporting results. Note on use of immunocytochemistry reagents: This test was developed and its performance characteristic determined by [facility], Department of Laboratory Medicine. It has not been cleared or approved by the U.S. Food and Drug Administration (FDA). The FDA has determined that such clearance or approval is not necessary. The test is used for clinical purpose. It should not be regarded as investigational or for research. This laboratory is certified to perform high complexity testing. 04/07/2018 3:34 PM CDT [facility] Embedded Images 04/07/2018 3:34 PM CDT [facility] Pathology/Cytolo gy ENTIRE GALLBLADDER / Unknown 04/06/2018 8:33 AM CDT 04/06/2018 10:33 AM CDT Rashawn Herring MD LAB - PATHOLOGY/CYTO LOGY ORDERABLES Performing Organization Address City/[facility]/ZIP Co de Phone Number [facility] [address] [place], [place] [id number] * HCG URINE QUALITATIVE (04/06/2018 7:16 AM CDT) hCG Qualitative Urine Negative Negative 04/06/2018 7:45 AM CDT [facility] Urine URINE / Unknown Collection / Unknown 04/06/2018 7:16 AM CDT 04/06/2018 7:34 AM CDT Harini Phelan DO LAB - URINALYSIS ORD ERABLES Performing Organization Address [facility] Co de Phone Number [facility] [address] [place] [address] documented in this encounter Visit Diagnoses Diagnosis Preop examination- Primary Preoperative examination, unspecified Cholecystitis Cholecystitis, unspecified documented in this encounter Administered Medications Inactive Administered Medications - up to 3 most recent administrations Medication Order MAR Action Action Date Dose Rate Site acetaminophen (TYLENOL) tablet 1,000 mg 1,000 mg, Oral, PRE-OP ONCE, 1 dose, On Fri04/06/18 at 0704, Pre-op famotidine (PEPCID) injection 20 mg 20 mg, Intravenous, PRE-OP ONCE, 1 dose, On Fri04/06/18 at 0704, Give morning of surgery., Pre-op $ Given 04/06/2018 7:42 AM CDT 20 mg fentaNYL (PF) (SUBLIMAZE) injection 25 mcg 25 mcg, Intravenous, EVERY 10 MIN PRN, Mild Pain, 4 doses, Starting on Fri04/06/18 at 1046, Until Fri04/06/18 at 1356, Maximum total of 4 doses. If patient reaches max total dose, please consult anesthesiologist prior to further administration of pain meds. Hold pain meds if there are signs of hypoventilation., PACU $ Given 04/06/2018 11:36 AM CDT 25 mcg $ Given 04/06/2018 10:59 AM CDT 25 mcg heparin injection 5,000 Units 5,000 Units, Subcutaneous, PRE-OP ONCE, 1 dose, On Fri04/06/18 at 0704, Pre-op $ Given 04/06/2018 7:42 AM CDT 5,000 Units Abdominal Tissue HYDROmorphone (DILAUDID) injection 0.5 mg 0.5 mg, Intravenous, EVERY 10 MIN PRN, Severe Pain, 4 doses, Starting on Fri04/06/18 at 1046, Until Fri04/06/18 at 1356, Maximum total of 4 doses If patient reaches max total dose, please consult anesthesiologist prior to further administration of pain meds. Hold pain meds if there are signs of hypoventilation., PACU lactated ringers infusion at 20 mL/hr, Intravenous, PRE-OP CONTINUOUS, Starting on Fri04/06/18 at 0715, Until Fri04/06/18 at 1356, Pre-op $ New Bag/Syringe 04/06/2018 7:43 AM CDT $ New Bag/Syringe 04/06/2018 7:42 AM CDT 20 mL/ hr lidocaine buffered 1 % injection 0.5 mL 0.5 mL, Infiltration, PRE-OP MULTIPLE, 3 doses, Starting on Fri04/06/18 at 0704, Until Fri04/06/18 at 1356, May be used (0.5 ml locally to anesthetize prior to insertion)., Pre-op $ Given 04/06/2018 7:42 AM CDT 0.5 mL naloxone (NARCAN) injection 0.04 mg 0.04 mg, Intravenous, POST-OP MULTIPLE, Starting on Fri04/06/18 at 1046, Until Fri04/06/18 at 1356, If respiration rate is less than 7 per minute administer IV every 1 minute until respirations are greater than 12 per minute. Notify anesthesia immediately., PACU oxyCODONE (ROXICODONE) oral solution 10 mg 10 mg, Oral, POST-OP ONCE, 1 dose, On Fri04/06/18 at 1203 $ Given 04/06/2018 12:25 PM CDT 10 mg scopolamine (TRANSDERM-SCOP) patch 1 mg 1 mg, Administer over 72 Hours, PRE-OP ONCE, 1 dose, On Fri04/06/18 at 0704, Apply patch behind the ear, do not cut patch, only 1 patch should be worn at a time and remove old patch before applying new patch.This patch may contain metal and is not compatible with MRI. Notify radiology of patch location upon arrival to MRI. All scopolamine patches deliver 1mg of scopolamine over 72 hours. Product may be labeled as 1mg/72 hours or 1.5mg/72 hours. $ Applied 04/06/2018 7:42 AM CDT 1 mg Behind Right Ear documented in this encounter Active and Recently Administered Medications Times are shown in CDT. Scheduled Medication Order 04/04/2018 04/05/2018 04/06/2018 acetaminophen (TYLENOL) tablet 1,000 mg 1,000 mg, Oral, PRE-OP ONCE, 1 dose, On Fri04/06/18 at 0704, Pre-op 0743 (Not Administer ed - Provider: Gin Burgos RN - Reason: See Comments) ceFAZolin (ANCEF) syringe 2,000 mg (COMPLETED) 2,000 mg (2 g), Intravenous, PRE-OP ONCE, 1 dose, On Fri04/06/18 at 0704, Administer 30 minutes prior to surgical incision. Repeat dose in 3 hours if surgical incision not closed. Administer over 3-5 minutes., Indication for anti-infective therapy: Surgical prophylaxis, Site of anti-infective therapy: Other, Other site of infection (free text): Bariatric surgery, Pre-op 09 ($ Given - Prov ider: Cordell Grimm APRN-SECOND CUTTER) famotidine (PEPCID) injection 20 mg (COMPLETED) 20 mg, Intravenous, PRE-OP ONCE, 1 dose, On Fri04/06/18 at 0704, Give morning of surgery., Pre-op 0742 ($ Given - Prov ider: Gin Burgos RN) heparin injection 5,000 Units (COMPLETED) 5,000 Units, Subcutaneous, PRE-OP ONCE, 1 dose, On Fri04/06/18 at 0704, Pre-op 0742 ($ Given - Prov ider: Gin Burgos RN) lidocaine buffered 1 % injection 0.5 mL 0.5 mL, Infiltration, PRE-OP MULTIPLE, 3 doses, Starting on Fri04/06/18 at 0704, Until Fri04/06/18 at 1356, May be used (0.5 ml locally to anesthetize prior to insertion)., Pre-op 0742 ($ Given - Prov ider: Gin Burgos RN) naloxone (NARCAN) injection 0.04 mg 0.04 mg, Intravenous, POST-OP MULTIPLE, Starting on Fri04/06/18 at 1046, Until Fri04/06/18 at 1356, If respiration rate is less than 7 per minute administer IV every 1 minute until respirations are greater than 12 per minute. Notify anesthesia immediately., PACU oxyCODONE (ROXICODONE) oral solution 10 mg (COMPLETED) 10 mg, Oral, POST-OP ONCE, 1 dose, On Fri04/06/18 at 1203 1225 ($ Given - Prov ider: Gin Burgos RN) scopolamine (TRANSDERM-SCOP) patch 1 mg 1 mg, Administer over 72 Hours, PRE-OP ONCE, 1 dose, On Fri04/06/18 at 0704, Apply patch behind the ear, do not cut patch, only 1 patch should be worn at a time and remove old patch before applying new patch.This patch may contain metal and is not compatible with MRI. Notify radiology of patch location upon arrival to MRI. All scopolamine patches deliver 1mg of scopolamine over 72 hours. Product may be labeled as 1mg/72 hours or 1.5mg/72 hours. 741 ($ Applied - Pr ovider: Gin Burgos RN) Continuous Medication Order 04/04/2018 04/05/2018 04/06/2018 lactated ringers infusion at 20 mL/hr, Intravenous, PRE-OP CONTINUOUS, Starting on Fri04/06/18 at 0715, Until Fri04/06/18 at 1356, Pre-op 0742 ($ New Bag/Syri nge - Provider: Gin Burgos RN)0743 ($ New Bag/Syringe - Provider: Cordell Grimm APRN-SECOND CUTTER)1033 (Anesthesia Volume Adjustment - Provider: ILCO Martinez) PRN Medication Order 04/04/2018 04/05/2018 04/06/2018 0.9% nacl irrigation solution (CANCELED) PRN, Starting on Fri04/06/18 at 0936, Until Fri04/06/18 at 1029, Intra-op 0936 ($ Given - Prov ider: Rashawn Herring MD) bupivacaine 0.5% - EPINEPHrine 1:200,000 (PF) injection (CANCELED) PRN, Starting on Fri04/06/18 at 0941, Until Fri04/06/18 at 1029, Intra-op 0941 ($ Given - Prov ider: Rashawn Herring MD - Comment: mixed (1:1) with lidocaine 1%) fentaNYL (PF) (SUBLIMAZE) injection 25 mcg 25 mcg, Intravenous, EVERY 10 MIN PRN, Mild Pain, 4 doses, Starting on Fri04/06/18 at 1046, Until Fri04/06/18 at 1356, Maximum total of 4 doses. If patient reaches max total dose, please consult anesthesiologist prior to further administration of pain meds. Hold pain meds if there are signs of hypoventilation., PACU 1059 ($ Given - Prov ider: Pushpa Barney RN)1136 ($ Given - Provider: Bre Palmer RN) HYDROmorphone (DILAUDID) injection 0.5 mg 0.5 mg, Intravenous, EVERY 10 MIN PRN, Severe Pain, 4 doses, Starting on Fri04/06/18 at 1046, Until Fri04/06/18 at 1356, Maximum total of 4 doses If patient reaches max total dose, please consult anesthesiologist prior to further administration of pain meds. Hold pain meds if there are signs of hypoventilation., PACU lidocaine (XYLOCAINE MPF) 1 % injection (CANCELED) PRN, Starting on Fri04/06/18 at 0942, Until Fri04/06/18 at 1029, Intra-op 0942 ($ Given - Prov ider: Rashawn Herring MD) documented in this encounter Care Teams Medical Service Representative Relationship Specialty Start Date End Date Kelly Roberts, RN Oleo [employer]her [employer] Renderer 12/28/14 documented as of this encounter
--- OUTSIDE RECORDS SUMMARY | 2024-11-15 03:19 | XMS_ITS | Encounter Summary ---
Author Organization [facility] Address [address] [place] [address] Care Team Providers Care Infantry Assaultman Name Role Phone Unavailable Primary Care Provider Unavailabl e Reason for Visit * Reason Onset Date Comments Surgery Scheduling 12/12/2014 Encounter Details Date Type Department Care Team (Late st Contact Info) Description 12/12/2014 Telephone [facility] [id number], [address] [place] [address] [place] [id number] [facility] [address] [place] [address] Surgery Scheduling Social History Tobacco Use Types Packs/Day [...] encounter Miscellaneous Notes * Telephone Encounter - Karin Finch RN - 12/12/2014 4:11 PM CST Called to discuss surgery dates with pt. She reports she will call me back tomorrow after speaking with her . [facility] documented in this encounter Plan of Treatment Not on file documented as of this encounter Visit Diagnoses Not on filedocumented in this encounter
--- OUTSIDE RECORDS SUMMARY | 2024-11-15 03:19 | XMS_ITS | Encounter Summary ---
Author Organization [facility] Address [address] [address] Care Team Providers Care Ground School Instructor Name Role Phone Unavailable Primary Care Provider Unavailabl e Reason for Visit * Reason Comments Bariatric Surgery Initial Assessment Encounter Details Date Type Department Care Team (Late st Contact Info) Description 07/27/2014 8:00 AM CDT Office Visit [facility] [address] [place] [id number] Morbid obesity (HCC) (Primary Dx) Social History Tobacco Use Types Packs/Day Years [...] - Inhaled Oxygen Concentration - - Weight 124.3 kg (274 lb) 07/27/2014 7:55 AM CDT Height 182.9 cm (6') 07/27/2014 7:55 AM CDT Body Mass Index 37.16 07/27/2014 7:55 AM CDT documented in this encounter Progress Notes * Franchesca Fitzaptrick RN - 07/27/2014 9:29 AM CDT ?? Patient has completed the following one on one assessment with the nurse. Reviewed items include: ?? 3 Bariatric surgical procedures: Val-en-Y Gastric Bypass, Sleeve Gastrectomy, Adjustable gastric banding ?? Weight Loss [place] requirements for surgery ?? Potential complications ?? Percent of expected weight loss ?? Expectations of the patient and staff ?? Dietary and medication guidelines / Need for contact with PCP/specialists re: changing medication doses as loses weight. ?? Pre-operative clear liquid with high protein shakes ?? Vitamin supplements ?? Reviewed medical and surgical history, allergies, and medication ?? Reviewed my chart access ?? Provide DARIEN education log-in for additional education prior to surgeon consult ?? Provide list of additional clearances that are required or recommended prior to surgery ?? Instructed to stop all NSAID's, fish oil, Vitamin E, and Flax seed at least 5 days before surgery. Pt instructed to inform prescribing physician if on prescription anticoagulants of pending surgery to obtain stop date. ?? Pt has reasonable weight loss expectations. Pt wishes to lose 96lbs of the 78.2lbs excess body weight determined by calculations. ?? [place] sleep scale reviewed. No Sleep study ordered. ?? [place] score=2 DeniesPersonal or family history of blood clots. Denies tobacco usage. Pt denies questions at this time. Pt is given contact information for [facility] any questions or concerns. BARIATIC RISK PREDICTION TOOL _0__Age>45 years: AGE=_44__ _0__Male _0__BMI>/= 60: BMI=37.24 _0__Risk factors for Pulmonary Embolism (previous VTE, Pulmonary Hypertension, Preoperative Vena Cava Filter, or Hypoventilation due to obesity) _0__Hypertension-uncomplicated (1 point) _2__Hypertension-complicated (2 points) i.e. History of CHF, CT, multiple hypertension medications _0__If diabetic-HgA1C over 9.0 or unknown POINTS CATEGORY _x__0-2 LOW ___3-4 MODERATE ___5-6 HIGH OR REVISION CLEARANCES/TEST REQUESTED: ___Cardiac clearance ___Pulmonary clearance ___Sleep study ___Nicotine test ___Drug screen ___HgA1C ___Coagulation study ___Endocrine clearance ___Other __x_Other previous cardiac cath report from 06/29 ADDITIONAL NOTES: Mobility issues-walker/cane/wheelchair ___yes _x__no documented in this encounter Plan of Treatment Not on file documented as of this encounter Visit Diagnoses Diagnosis Morbid obesity (HCC)- Primary Morbid obesity documented in this encounter
--- OUTSIDE RECORDS SUMMARY | 2024-11-15 03:19 | XMS_ITS | Encounter Summary ---
Author Organization [facility] Address [address] [place] [address] Care Team Providers Care Grease Man Name Role Phone Unavailable Primary Care Provider Unavailabl e Reason for Referral * Evaluate & Treat Specialty Diagnoses / Procedures Referred By Jesse [place] [phone] [address] [place] [id number] Referral ID Status Reason Start Date Expiration Date V isits Requested Visits Authorized Specialty Services Required Scheduling Instructions Patient to have therapy treatments for muscular strain Patient had L5-S1 MIS decompression, TLIF, open reduction of spondylolisthesis surgery on 01/17/2011 Encounter Details Date Type Department Care Team (Late st Contact Info) Description 02/13/2011 Orders Only [facility]sc[facility] [id number] [place] [address] [address] [place] [address] [place] [id number] [address] [place] [address] Sciatica Social History Tobacco Use Types Packs/Day Years [...] of this encounter Plan of Treatment Scheduled Referrals Name Type Priority Associated Diagnoses Orde r Schedule AMB REFERRAL TO PHYSICAL THERAPY Outpatient Referral Routine Sciatica 02/13/2011 documented as of this encounter Visit Diagnoses Diagnosis Sciatica- Primary documented in this encounter
--- OUTSIDE RECORDS SUMMARY | 2024-11-15 03:19 | XMS_ITS | Encounter Summary ---
Author Organization [facility] Address [address] [facility] [place] [address] Care Team Providers Care Physical Meteorologist Name Role Phone Unavailable Primary Care Provider Unavailabl e Reason for Visit * Reason Onset Date Comments Pain 03/06/2011 Encounter Details Date Type Department Care Team (Late st Contact Info) Description 03/06/2011 Telephone [facility] [address] [facility] [address] [place] [id number] [place] [id number] [address] Pain Social History Tobacco Use Types Packs/Day Years [...] encounter Miscellaneous Notes * Telephone Encounter - Criss Baltazar LPN - 03/06/2011 9:30 AM CDT Spoke to Dr Deleon then called patient. Said her pain was worse after she worked all day. I informed her that we could continue her 1/2 days if needed at work. Also she ask about taking naproxen. I spokewith Dr Deleon and he said that would be ok at this point. She also said could she wear her brace. I told her if it made her feel better she could,it wont hurt her. Patient will call me back if problems p ersist or get worse. * Telephone Encounter - Criss Baltazar LPN - 03/06/2011 9:00 AM CDT Message taken by office staff this am: Finesse Sandoval just called crying complaining of shooting pain in her back and leg since returningto work. She said that by 7:00 she can???t move around on her own. 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 She wants a call back about what she should/can do. Her # is [phone] documented in this encounter Plan of Treatment Not on file documented as of this encounter Visit Diagnoses Not on filedocumented in this encounter
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
--- OUTSIDE RECORDS SUMMARY | 2024-11-15 03:19 | XMS_ITS | Encounter Summary ---
Author Organization [facility] Health Address [address] [place] [address] Care Team Providers Care Order Processing Manager Name Role Phone Unavailable Primary Care Provider Unavailabl e Reason for Visit * Reason Comments Pre-op Consult pre op consult Encounter Details Date Type Department Care Team (Late st Contact Info) Description 08/18/2014 2:00 PM CDT Office Visit [facility] Weight Management Services [id number] [place] [address], [facility] [address] [place] [address] [place]awn [place] [id number] [place] [address] [address] [place] [address] Morbid obesity (HCC) (Primary Dx); Hypertension Social History Tobacco Use Types Packs/Day Years [...] Sign Reading Time Taken Comments Blood Pressure 146/94 08/18/2014 2:47 PM CDT Pulse 83 08/18/2014 2:47 PM CDT Temperature - - Respiratory Rate - - Oxygen Saturation 95% 08/18/2014 2:47 PM CDT Inhaled Oxygen Concentration - - Weight 124.7 kg (275 lb) 08/18/2014 2:47 PM CDT Height 182.9 cm (6') 08/18/2014 2:47 PM CDT Body Mass Index 37.3 08/18/2014 2:47 PM CDT documented in this encounter Patient Instructions * Patient Instructions* Rashawn Herring MD - 08/18/2014 3:28 PM CDT Patient is an appropriate candidate for weight loss surgery Patient will be contacted once insurance approval is obtained and scheduled for preoperative Class documented in this encounter Progress Notes * Rashawn Herring MD - 08/18/2014 3:24 PM CDT BARIATRIC EVALUATION HISTORY & PHYSICAL Height: 6' (182.9 cm) Weight: 275 lb (124.739 kg) BMI (Calculated): 37.37 Chief Complaint: Morbid Obesity HPI: Pt is a 44yo F with a hx of morbid obesity who presents for surgical tx. Pt has attempted multiple weight loss regimens in the past including medical, exercise and dietary without intermediate manager success. Pt has developed multiple comorbid conditions that include Benign Essential HTN, Hyperscholesterolemia, Dyspnea on exertion, Multiple arthropathies, ALONZO and Morbid Obesity. These comorbid condition(s) have progressively worsened due to the patients morbid obesity and no other contributing factors. Pt has now attained a BMI (Calculated): 37.37 and has failed multiple non surgical weight loss regimens for >5yrs. Past Medical History Diagnosis Date ??? Arthritis ??? Asthma ??? Hypertension ??? Migraine ??? Elevated cholesterol not on Rx ??? Chest pain cath 06/2013 pt states ok ??? Fatty liver disease, nonalcoholic ??? DJD (degenerative joint disease) ??? History of gastric ulcer ??? PCOS (polycystic ovarian syndrome) Past Surgical History Procedure Laterality Date ??? Carpal tunnel surgery 1992 Bilateral ??? Hammer toe repair 1999 Left foot w/ bunionectomy ??? Other surgery 2004 6 EYE SURGERIES ??? Acl reconstruction 2008 Right ??? Rotator cuff repair 2008 LEFT ??? Other surgery 2008 Left ANKLE reconstruction ??? Lumbar spine fusion 01/17/2011 TLIF L5-S1 MINIMALLY INVASIVE ??? Other surgery mortons neuroma removed right and left foot PATIENT MEDICAL HISTORY SCREENING: Diabetes............................................No Hypertension.....................................Yes Gastroesophageal reflux disease.....No Chest pain.........................................No Heart trouble......................................No Hypercholesterolemia.......................Yes Stress incontinence..........................No Dyspnea on exertion.........................Yes Multiple arthropathies........................Yes Depression........................................No Sleep apnea......................................No MVP...................................................No Morbid Obesity..................................Yes Blood clots........................................No Other................................................. FAMILY HISTORY SCREENING: Significant for obesity....................... No Diabetes........................................... No Heart disease................................... Yes Stroke............................................... No Cancer.............................................. No Hypertension..................................... Yes Blood clots........................................ No Other................................................. none Has the patient had a positive history of MRSA No. Current Outpatient Prescriptions Medication ??? oxyCODONE-acetaminophen (PERCOCET) 5-325 MG tablet ??? ibuprofen (MOTRIN) 800 MG tablet ??? ALBUTEROL IN ??? methyldopa (ALDOMET) 500 MG tablet ??? labetalol (NORMODYNE; TRANDATE) 100 MG tablet ??? melatonin 3 MG tablet ??? carisoprodol (SOMA) 350 MG tablet No current facility-administered medications for this visit. Allergies Allergen Reactions ??? Morphine Nausea and/or Vomiting Can take derivatives ??? Erythromycin Rash ??? Neurontin [Gabapentin] Other Restless Social History Smoking Status: Never Smoker Smokeless Status: Never Used Alcohol Use: Yes Comment: social Drug Use: No Sexual Activity: Not on file Family History Problem Relation Age of Onset ??? Arthritis-rheumatoid Mother ??? Hypertension Mother ??? Migraine Mother ??? Osteoarthritis Mother ??? Arthritis-rheumatoid Father ??? Coronary Artery Disease Father ??? Hypercholesterolemia Father ??? Migraine Father ??? Osteoarthritis Father ??? Asthma Brother ??? Arthritis-rheumatoid Maternal Grandmother ??? Cancer Maternal Grandmother ??? Hypertension Maternal Grandmother ??? Osteoarthritis Maternal Grandmother ??? Coronary Artery Disease Maternal Grandfather ??? Arthritis-rheumatoid Maternal Grandfather ??? Cancer Maternal Grandfather ??? Heart Failure Maternal Grandfather ??? Hypercholesterolemia Maternal Grandfather ??? Hypertension Maternal Grandfather ??? Osteoarthritis Maternal Grandfather ??? Stroke Maternal Grandfather Review of Systems: Constitutional: denies recent significant weight loss HEENT: Denies headaches, vision or auditory changes Cardiovascular: Denies chest pain, orthopnea or palpitations Respiratory: Denies cough, hemoptysis. Oxygen dependent : No Gastrointestinal: Denies abdominal pain, no melena or hematemesis Genitourinary: denies hematuria, dysuria Musculoskeletal: denies muscle weakness Endocrine: Denies diabetes mellitus or thyroid issues Allergic / Immuno: Normal Neuro / Psych: denies depression, SI/SA Skin: denies open wounds, skin infections Functional Health Status prior to surgery : Independent- The patient does not require assistance from another person for any ADLs.. Physical Examination: BP 146/94 Pulse 83 Wt 275 lb (124.739 kg) BMI 37.29 kg/m2 HEENT: Normocephalic, atraumatic, no evidence of abnormalities. PEERL, EOM- intact, sclera clear Lungs: Clear to ascultation Heart: Regular rate and rythm. Abdomen: No masses, organomegally, tenderness, rebound, guarding, rigidity Extremities: Symmetrical, equal, no signs of deformities. Peripheral pusles intact. No edema. Neurologic: Alert, oriented, cranial nerves 2-12 intact. Station, gait, coordination intact. Skin: No rashes. No skin lesions. Recent Labs Component Name 01/10/11 1025 SODIUM 140 POTASSIUM 4.1 CHLORIDE 105 CO2 23 BUN 13 CREATININE 0.9 GLUCOSE 70 CALCIUM 9.6 Recent Labs Component Name 01/18/11 0115 01/10/11 1025 HGB 13.1 14.2 HCT 39.5 43.3 Risk / Benefits Risks and benefits were reviewed with patient including but not limited to , enteral leaks, hemorrhage, damage to organs, infections, non guaranteed weight loss results etc. Questions were answered. Bariatric Surgery Patient Education: The patient was informed of other factors that are necessary to achieve weight loss in addition to surgery. Specifically, the patient was informed of the different surgical procedures, including the cherise y gastric bypass, the sleeve gastrectomy and the adjustable gastric band. It was explained thatbariatric surgery is part of the overall weight loss program which includes a low calorie nutritional program with nutritional and vitamin supplementation, a frequent and consistent exercise program and a social support program or network. The patient will experience successful and intermediate manager weightloss when these components along with bariatric surgery are followed. The patient has had the above discussions with multiple program team members including surgeon, overseer kosher kitchen, bariatric nurse and mental health web ui developer. Impression: Morbid obesity with above listed comorbidities. Multiple failed diet attempts. Plan: L Sleeve Liquid Protein Diet: NoNo Weeks Spot Checker: Yes Additional Testing: no Comments: Limited incision, 6S, no hammonds, 2 day stay Robot candidate: no Rashawn Herring MD 08/18/2014 documented in this encounter Plan of Treatment Not on file documented as of this encounter Visit Diagnoses Diagnosis Morbid obesity (HCC)- Primary Morbid obesity Hypertension Unspecified essential hypertension documented in this encounter
--- OUTSIDE RECORDS SUMMARY | 2024-11-15 03:19 | XMS_ITS | Encounter Summary ---
Author Organization [facility] Health Address [address] [place] [address] Care Team Providers Care Traffic Analysis Technician Name Role Phone Unavailable Primary Care Provider Unavailabl e Reason for Visit * Reason Comments Pre-op Consult final consult Encounter Details Date Type Department Care Team (Late st Contact Info) Description 12/14/2014 8:30 AM EMT PARAMEDIC Office Visit [facility] Weight Management Services [id number] [place] [address] Suzette Wiley APRN-SUAGR [id number] [facility] [address] [place] [address] Obesity (Primary Dx); HTN (hypertension); Anxiety; Asthma (HCC) Social History Tobacco Use Types Packs/Day [...] Sign Reading Time Taken Comments Blood Pressure 138/83 12/14/2014 9:22 AM EMT PARAMEDIC Pulse 81 12/14/2014 9:22 AM EMT PARAMEDIC Temperature - - Respiratory Rate - - Oxygen Saturation 97% 12/14/2014 9:22 AM EMT PARAMEDIC Inhaled Oxygen Concentration - - Weight 123.8 kg (273 lb) 12/14/2014 9:22 AM EMT PARAMEDIC Height 182.9 cm (6') 12/14/2014 9:22 AM EMT PARAMEDIC Body Mass Index 37.03 12/14/2014 9:22 AM EMT PARAMEDIC documented in this encounter Progress Notes * Suzette Wiley APRN-SUGAR - 12/14/2014 9:35 AM CST Medically Managed Diet Visit Finesse Ramirez 12/14/2014 Visit # Vitals: 12/14/14 0922 BP: 138/83 Pulse: 81 Weight: 273 lb (123.832 kg) SpO2: 97% CHIEF COMPLAINT: Morbid Obesity HPI: Pt is a 44yo F with a hx of morbid obesity who presents for surgical tx. Pt has attempted multiple weight loss regimens in the past including medical, exercise and dietary without correction success. Pt has developed multiple comorbid conditions that include Benign Essential HTN, Hyperscholesterolemia, Dyspnea on exertion, Multiple arthropathies, ALONZO and Morbid Obesity. These comorbid condition(s) have progressively worsened due to the patients morbid obesity and no other contributing factors. Medical Review: She reports since her last visit that she has not had any hospitalizations, no ER visits, no traumas She is seeing a licensed weigher for a skin rash under her breast and abdominal skin fold. She reports no new medications. Dietitian recommendations were reviewed : Patient is watching her diet, reading labels and starting to drink protein for breakfast. Fluid intake per day: She is drinking tea and water. She is still drinking soda about 5 per week. This was discussed and she is aware that we recommend that she quit. Patient is participating in the following Physical Activity: Minimal due to chronic back pain Change in weight since last visit: down 2 lbs Patient verbalizes understanding of fats, carbohydrates and protein: yes Patient is disabled and unable to participate in physical activity: no I counseled the patient on Behavior and Lifestyle Modifications : Eat 3 meals daily with 1-2 high protein healthy snacks Eliminate caloric beverages Do not graze between meals Portion control Choosing low fat / low sugar items Reducing stress and emotional eating Incorporating fruits and vegetables Taking 15- 20 minutes to eat a meal BP 138/83 Pulse 81 Wt 273 lb (123.832 kg) BMI 37.02 kg/m2 Current Outpatient Prescriptions Medication ??? buPROPion SR 12hr (WELLBUTRIN-SR) 150 MG tablet ??? metFORMIN (GLUCOPHAGE) 500 MG tablet ??? oxyCODONE-acetaminophen (PERCOCET) 5-325 MG tablet ??? ALBUTEROL IN ??? methyldopa (ALDOMET) 500 MG tablet ??? labetalol (NORMODYNE; TRANDATE) 100 MG tablet ??? carisoprodol (SOMA) 350 MG [...] reconstruction 2008 Right ??? Rotator cuff repair 2007 LEFT ??? Other surgery 2007 Left ANKLE reconstruction ??? Lumbar spine fusion 01/17/2011 TLIF L5-S1 MINIMALLY INVASIVE ??? Other surgery mortons neuroma removed right and left foot Review of Systems: HEENT: Normal Cardiovascular: Normal Respiratory: Normal Gastrointestinal: Normal Genitourinary: Normal Musculoskeletal: Normal Skin / Breast / Axillae: Normal Endocrine: Normal Neuro / Psych: Normal General: Awake, alert and no acute distress Heart: RRR, no murmurs or rubs Lungs: CTA Abdomen: Soft, nontender, BS + x4, no rebound or guarding Ext: No edema x4 Assessment and Plan: Morbid Obesity: Continue with dieticians recommendations Continue with low fat, low calorie diet Continue with 64 oz fluid a day, water, sugar free, caffeine free, non carbonated beverages Eat slowly, chew food thoroughly Continue with exercise and gradually continue to increase. Plan for sleeve: she will not need to be on a liquid diet prior to surgery PCOS: she is continued on metformin HTN: continued on medication Chronic back pain: she is continued on medication Asthma: uses inhaler rare. Once or twice a year. Anxiety: she is continued on medication Plan for SEC and preop class today. Suzette Wiley ARTIFICIAL MARBLE WORKER, ACNP, BC PARAMEDIC documented in this encounter Plan of Treatment Not on file documented as of this encounter Visit Diagnoses Diagnosis Obesity- Primary Obesity, unspecified HTN (hypertension) Unspecified essential hypertension Anxiety Anxiety state, unspecified Asthma (HCC) documented in this encounter
--- OUTSIDE RECORDS SUMMARY | 2024-11-15 03:19 | XMS_ITS | Encounter Summary ---
Author Organization [facility] Health Address [address] [address] Care Team Providers Care Administrative Assistant Front Desk Name Role Phone Kelly Roberts RN Unavailable [phone] Reason for Visit * Reason Onset Date Comments Pain Abdominal 02/10/2019 Encounter Details Date Type Department Care Team (Late st Contact Info) Description 02/10/2019 Telephone [facility] Weight Management Services [address] [facility], [facility] [address] [place] [address] [place] [address] [facility] [address] [place] [address] Pain Abdominal Social History Tobacco Use Types Packs/Day Years [...] Telephone Encounter - Karin Finch RN - 02/10/2019 1:11 PM CDT Patient called to report has had right sided pain since lap robles, but is now increasing. Pain at rib cage and below on right. Also occurs on left side, below rib cage. Pain occurs several times per week. Is dull and throbbing, but lately has also been experiencing sharp, stabbing pain. Area to right side is tender to touch. Denies fever. Bowels can go from constipation to diarrhea during a day. Occasional nausea and vomiting. Feels symptome are getting more frequent and more severe. Appointment given for tomorrow for further eval. documented in this encounter Plan of Treatment Not on file documented as of this encounter Visit Diagnoses Not on filedocumented in this encounter Care Teams Administrative Assistant Front Desk Relationship Specialty Start Date End Date Kelly Roberts RN Right Of Way Maintenance Supervisor 12/28/14 documented as of this encounter
--- OUTSIDE RECORDS SUMMARY | 2024-11-15 03:19 | XMS_ITS | Encounter Summary ---
Author Organization [facility] Health Address [address] [place] [address] Care Team Providers Care Medical Equipment Sales Name Role Phone Kelly Roberts RN Unavailable [phone] Reason for Visit * Reason Comments Follow-up f/u ruq and pain and robles Encounter Details Date Type Department Care Team (Late st Contact Info) Description 03/26/2019 11:40 AM CDT Office Visit [facility] [id number] [place] [address], [facility] [address] [place] [address] Rashawn Herring MD [address] [place] [address] Abdominal pain, LUQ (left upper quadrant) (Primary Dx); Abdominal pain, RUQ (right upper quadrant) Social History Tobacco Use Types Packs/Day Years [...] Sign Reading Time Taken Comments Blood Pressure 140/82 03/26/2019 11:48 AM CDT Pulse 81 03/26/2019 11:48 AM CDT Temperature - - Respiratory Rate - - Oxygen Saturation - - Inhaled Oxygen Concentration - - Weight 106 kg (233 lb 9.6 oz) 03/26/2019 11:48 A M CDT Height 185.4 cm (6' 1 ) 03/26/2019 11:48 AM CDT Body Mass Index 30.82 03/26/2019 11:48 AM CDT documented in this encounter Functional [...] * Patient Instructions* Rashawn Herring MD - 03/26/2019 12:35 PM CDT Pt with bilateral upper abdominal pain, heartburn and nausea 1. Bilateral upper abdominal pain: - RUQ US negative - will order CT abdomen and pelvis to further assess - may need UGI study - possible esophageal manometry following UGI study 2. Heartburn: - cont with PPI and carafate - may need repeat EGD, last one was 02/2018 3. Nausea: - antiemetics if needed 4. F/u to be determined following CT abdomen and pelvis 5. Weight gain: Discussed diet modifications including A. Meals: 2-3 /day, 3/4 to 1 cup B. Protein: 50% of each meal, 80 to 100 g /day C. Carbohydrate limitation: < 15gm / meal D. Snacks: 1-2 /day, < 10gm carb C. Hydration: 45-60 oz of water /day E. Avoid: carbonated beverages, simple carbohydrates F. Exercise: to include light weights 3-5 times /wk for 15- 30 G. Appetite suppressant: trial phentermine documented in this encounter Progress Notes * Rashawn Herring MD - 04/07/2019 11:40 PM CDT Bariatric Surgery Clinic Note [facility]inesse Ramirez Previous Procedure: Laparoscopic sleeve gastrectomy Laparoscopic Cholecystectomy Intraoperative esophagogastroduodenscopy (Nima) ?? Date of Procedure: 12/27/2014 04/06/2018 ?? Initial Weight: 275 ?? Todays Weight: 233 ?? Weight Lost: 42 Chief complaint: Bilateral upper abdominal pain Subjective: Here for follow up for recent bilateral upper abdominal pain The pain is sharp intermittently and throbbing, occurs daily, lasts minutes and usually associated with eating. No particular aggravating foods There is associated nausea no emesis There is heartburn that is intermittently controlled with daily ppi Notes recent stool changes with intermittent diarrhea and occasional floating stools She underwent cholecystectomy for symptomatic cholelithiasis with mild improvement in symptoms and recent RUQ US noted fatty liver changes Last EGD at time of cholecystectomy noted ? Hiatal hernia v proximal upper stomach narrowing She has been taking carafate recently with little improvement Past Medical History: Diagnosis Date ??? Arthritis [...] Rotator Cuff Repair Left 2017 Current Outpatient Prescriptions on File Prior to Visit Medication Sig Dispense Refill ??? albuterol HFA (PROVENTIL;VENTOLIN;PROAIR) 108 (90 BASE) MCG/ACT inhaler 4 times daily as needed ??? buPROPion SR 12hr (WELLBUTRIN-SR) 150 MG tablet Take 150 mg by mouth once daily. ??? carisoprodol (SOMA) 350 MG tablet Take 1 Tab by mouth 3 times daily as needed. 80 Tab 0 ??? hydrocortisone (HYTONE) 2.5 % ointment Apply to affected area 4 times daily 20 g 0 ??? hydrocortisone butyrate 0.1 % cream - ketoconazole 2% cream 50:50 CREA Apply to affected area 2times daily as needed. ??? omeprazole (PRILOSEC) 20 MG capsule TAKE [...] on file prior to visit. Data Vitals: 03/26/19 1148 BP: 140/82 Pulse: 81 Weight: 233 lb 9.6 oz (106 kg) Height: 6' 1 (1.854 m) Review of Systems: HEENT: Denies headaches, [...] bilateral upper abdominal pain, heartburn and nausea 1. Bilateral upper abdominal pain: - RUQ US negative - will order CT abdomen and pelvis to further assess - may need UGI study - possible esophageal manometry following UGI study 2. Heartburn: - cont with PPI and carafate - may need repeat EGD, last one was 02/2018 3. Nausea: - antiemetics if needed 4. F/u to be determined following CT abdomen and pelvis 5. Weight gain: Discussed diet modifications including A. Meals: 2-3 /day, 3/4 to 1 cup B. Protein: 50% of each meal, 80 to 100 g /day C. Carbohydrate limitation: < 15gm / meal D. Snacks: 1-2 /day, < 10gm carb C. Hydration: 45-60 oz of water /day E. Avoid: carbonated beverages, simple carbohydrates F. Exercise: to include light weights 3-5 times /wk for 15- 30 G. Appetite suppressant: trial phentermine Rashawn Herring MD documented in this encounter Plan of Treatment Not on file documented as of this encounter Visit Diagnoses Diagnosis Abdominal pain, LUQ (left upper quadrant)- Primary Abdominal pain, left upper quadrant Abdominal pain, RUQ (right upper quadrant) Abdominal pain, right upper quadrant documented in this encounter Care Teams Medical Equipment Sales Relationship Specialty Start Date End Date Kelly Roberts, CHEY Combat Control 12/28/14 documented as of this encounter
--- OUTSIDE RECORDS SUMMARY | 2024-11-15 03:19 | XMS_ITS | Encounter Summary ---
Author Organization [facility] Address [address] [place] [address] Care Team Providers Care Crocheter Hand Name Role Phone Unavailable Primary Care Provider Unavailabl e Reason for Visit * Reason Onset Date Comments Results 05/15/2011 Encounter Details Date Type Department Care Team (Late st Contact Info) Description 05/15/2011 Telephone [facility] [id number] [address] [place] [id number] [address] Results Social History Tobacco Use Types Packs/Day [...] encounter Miscellaneous Notes * Telephone Encounter - Sean Deleon MD - 05/24/2011 6:45 PM CDT I reviewed Mrs. Sandoval's plain films of the lumbar spine dated 05/10/2011 performed at [facility], and this demonstrates postoperative changes of instrumented interbody and posterior spinal fusion at the L5-S1 segment. Hardware placement is stable and appropriate, and the bony foramen are widely patent bilaterally. There is generalized straightening of the lumbar lordosis. Otherwise, no fractures or subluxations are seen. I also reviewed her MRI of the lumbar spine with and without contrast dated 05/03/2011. This again demonstrates postoperative changes of instrumented interbody fusion at the L5-S1 level. The pedicle screw hardware and interbody implant are in stable position, unchanged compared to her prior MRI of . The fluid collection behind the interbody implant appears about a third smaller compared to her prior imaging. The fluid collection is adjacent to the thecal sac, slightly eccentric to the left, but does not appear to impinge upon the thecal sac or nerve roots. The foramen are more difficult to see on this set of images compared to her prior imaging, likely secondary to increased paramagn etic artifact from the slightly different imaging technique; but otherwise, no obvious foraminal encroachment is noted at the L5-S1 level. Mild degenerative changes are noted at the L4-5 level, without evidence of disc herniation or stenosis. This is unchanged from previous. The remainder of the lumbar spine is unremarkable. There is generalized straightening of the lumbar lordosis. No fractures or subluxations are seen. I spoke with Mrs. Sandoval regarding these imaging findings, and she reports that, for the large part, she has had persisting symptoms of pain in the right hip and RLE since our last visit. She reports an episode a few weeks ago where her pain was so severe at work that she passed out and went limp , falling to the floor. Fortunately, she did not suffer any significant injury with this. She diddevelop some left sided hip and leg pain symptoms for two days recently after doing a lot of activity including frequent bending. This resolved with a bit of back rest. She also reports that her RLE pain has improved in the past two days, although she has had an exacerbation of her back pain duringthis time. She also reports having a lot of persisting tenderness at her incision sites. She has bee n trying to cut down on her analgesic medication, and usually takes 1 or 2 Percocet a day-- mainly because she does not experience a lot of difference in her pain whether she takes this or not. Interestingly, she feels that her right leg symptoms seemed to improve when she reduced her neurontin dose and started taking ibuprofen. She has followed up with Dr. Cervantes of pain management following our last visit. As she has not been responding to his lumbar injections, he did not feel that there was anything else that he could do for her and referred her back to me for further treatment. When Mrs. Sandoval mentioned that I did not think it was likely that more surgery would be helpful for her and that I had referred her tohim for further treatment after our last visit, he apparently expressed some displeasure that I hadnot been returning his calls; although my office has no record of him calling us. Additionally, he apparently expressed to Mrs. Sandoval that the surgery that I performed must have caused her current right leg pain and that I should be the one to fix it. Mrs. Sandoval expresses that she is not planning on following up with Dr. Cervantes as there is no arguing with him . I am not certain what Dr. Cervantes thinks may be causing her pain, or if Mrs. Sandoval's description of their interactions is fully accurate; but based upon the multiple imaging studies that have been performed postoperatively, I do not appreciate a distinct anatomic abnormality that would accountfor Mrs. Nyasia Macias's current right hip and RLE pain. Therefore, I do not think that further lumbar surgery would be of benefit to her current symptoms. I encouraged her that, if she had any particular concerns with my opinion, I would certainly welcome a second surgical opinion regarding her lower back issues. I would be more than happy to provide her names of various neurosurgeons or spine surgeons in the area, and she will consider this. She is interested in establishing pain management with a different doctor, and I provided her contact information for Dr. Chas Boo for a potential consultation. Assuming that her RLE pain is her main persisting pain issue, spinal cord stimulation may be a consideration for her. I did phone in a script for Ibuprofen for her, and she will continue co nservative management of her back pain for now. [Criss- could you please forward a copy of this note to Dr. Lantigua's office] * Telephone Encounter - Sean Deleon MD - 05/23/2011 12:00 PM CDT I will try calling her back later today, but I do not see much on her imaging that would suggest that further surgical treatment would be of benefit to her current right LE pain symptoms. * Telephone Encounter - Criss Baltazar LPN - 05/23/2011 11:[address] Lantigua's office to update info about not reaching patient only message. He will attempt again to call her. Was ask to call Dr Lantigua's office with further tx plan when Dr Deleon contacts Ms Macias * Telephone Encounter - Sean Deleon MD - 05/17/2011 5:48 PM CDT Attempted to call back Mrs. Sandoval, but no answer. Left voicemail. Will try calling her again next week. * Telephone Encounter - Criss Baltazar LPN - 05/15/2011 3:[address] Lantigua's office called. Spoke to Darleen. Dr Lantigua wanted to know what was the continued care after MRI done. Patient had seen Dr Lantigua yesterday and c/o right leg pain. I informed them that patient had said same thing at last visit ,that was why MRI was ordered.Patient said she had gone to [facility] and only gave 3 injections and now completed the treatment with them. I informed them that Dr Deleon had left for the day but I will send him the message and call them back when update available . documented in this encounter Plan of Treatment Not on file documented as of this encounter Visit Diagnoses Not on filedocumented in this encounter
--- OUTSIDE RECORDS SUMMARY | 2024-11-15 03:19 | XMS_ITS | Encounter Summary ---
Author Organization [facility] Address [address] [place] [address] Care Team Providers Care Sharepoint Engineer Name Role Phone Unavailable Primary Care Provider Unavailabl e Reason for Visit * Reason Onset Date Comments Surgery Scheduling 12/13/2014 Encounter Details Date Type Department Care Team (Late st Contact Info) Description 12/13/2014 Telephone [facility] [address], [address] [place] [address] [place] [address] [place] [address] Surgery Scheduling Social History Tobacco [...] Telephone Encounter - Karin Finch RN - 12/13/2014 2:54 PM CST Called to discuss surgery dates and verify surgery type with patient. Patient is now scheduled for laparoscopic sleeve by Dr Herring on 12/27/14 at [facility]. Patient to schedule SEC appointment for evaluation and testing, given centralized scheduling phone number: [phone]. Patient is scheduled to attend preoperative education class presented by bariatric nurse on 12/14/14. Instructed of no liquid diet requirement. Instructed patient to bring green binder to class and to start bariatric MVI 1 week before surgery.Instructed patient preop consult weight was 275. Instructed patient that she will be weighed on class day and that she is expected to be below or at preop consult weight. Reminded pt to stop any blood thinners to include plavix, asa, coumadin, omega3, fish oil, NSAIDS 5-7 days prior to surgery. Instructed pt to write 1- 4 (or 5 if needs 2nd consult) 1. Surgery date 12/27/14 2. Pre op class date 12/14/14 3. SEC date to be made by pt 4. Pre op liquid diet start date, not required *5. 2nd consult if required, last OV 08/18/14 Pt denies questions at this time. T DESIGNER documented in this encounter Plan of Treatment Not on file documented as of this encounter Visit Diagnoses Not on filedocumented in this encounter
--- OUTSIDE RECORDS SUMMARY | 2024-11-15 03:19 | XMS_ITS | Encounter Summary ---
Author Organization [facility] Address [address] [place] [address] Care Team Providers Care Metal Roaster Name Role Phone Kelly Roberts RN Unavailable [phone] Reason for Referral * Radiology Services (Routine) - Closed Specialty Diagnoses / Procedures Referred By Jesse t Referred To Contact Diagnoses Abdominal pain, LUQ (left upper quadrant) Abdominal pain, RUQ (right upper quadrant) Nausea Right upper quadrant abdominal pain Heartburn Procedures US ABDOMEN LIMITED Ct Collado APRN-CNP [address] [place] [address] Referral ID Status Reason Start Date Expiration Date Visits Re quested Visits Authorized [id number] Closed 02/13/2019 08/12/2019 1 1 Reason for Visit * Reason Comments Follow-up abd pain Encounter Details Date Type Department Care Team (Late st Contact Info) Description 02/11/2019 10:15 AM CDT Office Visit [facility] [address], [address] [place] [address] Ct Collado APRN-CNP [address] [place] [address] Abdominal pain, LUQ (left upper quadrant) (Primary Dx); Abdominal pain, RUQ (right upper quadrant); Nausea; Right upper quadrant abdominal pain; Heartburn Social History Tobacco Use Types Packs/Day Years [...] Sign Reading Time Taken Comments Blood Pressure 138/80 02/11/2019 10:30 AM CDT Pulse 84 02/11/2019 10:30 AM CDT Temperature - - Respiratory Rate - - Oxygen Saturation - - Inhaled Oxygen Concentration - - Weight 104.6 kg (230 lb 9.6 oz) 019 10:30 AM CDT Height 185.4 cm (6' 1 ) 02/11/2019 10:3 0 AM CDT Body Mass Index 30.42 02/11/2019 10:30 AM CDT documented in this encounter Functional [...] of this encounter Progress Notes * Ct Collado, BONSAI CULTURIST-HYDROSTATIC TESTER - 02/11/2019 11:08 AM CDT Bariatric Surgery Clinic Note Finesse Ramirez Previous Procedure: Laparoscopic sleeve gastrectomy Laparoscopic Cholecystectomy Intraoperative esophagogastroduodenscopy (Herring) Date of Procedure: 12/27/2014 04/06/2018 Initial Weight: 275 Todays Weight: 230 Weight Lost: 45 Subjective: Abdominal Pain Patient reports that she has had continued RUQ abdominal pain that has never resolved since her cholecystectomy 03/2018. She reports the pain as dull, throbbing pain since surgery until recently has become more of a sharp stabbing pain that is occurring daily. This has increased over the last few weeks. She is reporting stools that start out as constipation and then turn to loose watery diarrhea. She reports that she has had light colored stools that are floating the last couple of months. Symptoms are worse with greasier foods. She is also reporting pain to LUQ that has started more recently. This is occurring with eating. She is reporting associated nausea and heartburn. She denies any vomiting. She is continued on PPI. Will add Carafate QID She is drinking adequately and getting in adequate protein. ROS: HEENT: Normal Cardiovascular: Normal Respiratory: Normal Gastrointestinal: RUQ and LUQ abdominal pain, floating light colored stools, nausea, heartburn Genitourinary: Normal Musculoskeletal: Normal Skin / Breast / Axillae: Normal Endocrine: Normal Allergic / Immuno: Normal Neuro / Psych: Normal Data Vitals: 02/11/19 1030 BP: 138/80 Pulse: 84 Weight: 230 lb 9.6 oz (104.6 kg) Height: 6' 1 (1.854 m) Current Outpatient Prescriptions Medication ??? albuterol HFA (PROVENTIL;VENTOLIN;PROAIR) 108 (90 BASE) MCG/ACT inhaler ??? buPROPion SR 12hr (WELLBUTRIN-SR) 150 MG tablet ??? carisoprodol (SOMA) 350 MG tablet ??? hydrocortisone (HYTONE) 2.5 % ointment ??? hydrocortisone butyrate 0.1 % cream - ketoconazole 2% cream 50:50 CREA ??? omeprazole (PRILOSEC) 20 MG capsule ??? oxyCODONE (ROXICODONE) 5 MG/5ML oral solution ??? sucralfate (CARAFATE) 1 GM/10ML suspension ??? [...] rales or wheezes Abdomen: soft without mass, mild ttp, with normal bowel sounds x all 4 quads Extremities: no clubbing, cyanosis or edema Assessment/Plan: Pt s/p Laparoscopic Cholecystectomy Intraoperative esophagogastroduodenscopy RUQ Abdominal Pain/LUQ Abdominal Pain: Will schedule for RUQ US, CMP, CBC, UGI and EGD to evaluate.Carafate given QID and she is to continue Prilosec. Discussed low fat diet. HIPOLITO Romero documented in this encounter Plan of Treatment Not on file documented as of this encounter Procedures Procedure Name Priority Date/Time Associated Diagnosis Comments HEMOGLOBIN A1C Routine 03/08/2019 11:26 AM CDT Abdominal pain, LUQ (left upper quadrant) Abdominal pain, RUQ (right upper quadrant) Nausea VITAMIN D 25-HYDROXY Routine 03/08/2019 11:26 AM CDT Abdominal pain, LUQ (left upper quadrant) Abdominal pain, RUQ (right upper quadrant) Nausea CBC W/O DIFFERENTIAL Routine 03/08/2019 11:26 AM CDT Abdominal pain, LUQ (left upper quadrant) Abdominal pain, RUQ (right upper quadrant) Nausea COMPREHENSIVE METABOLIC PANEL Routine 03/08/2019 11:26 AM CDT Abdominal pain, LUQ (left upper quadrant) Abdominal pain, RUQ (right upper quadrant) Nausea LIPID PROFILE Routine 03/08/2019 11:26 AM CDT Abdominal pain, LUQ (left upper quadrant) Abdominal pain, RUQ (right upper quadrant) Nausea documented in this encounter Results * US ABDOMEN LIMITED (03/10/2019 8:42 AM CDT) Anatomical Region Laterality Modality Abdomen Ultrasound 03/10/2019 [...] MD on 03/10/2019 at 8:[address] Feliz Huckstep BONSAI CULTURIST-HYDROSTATIC TESTER US ORDERA BLES * (ABNORMAL) LIPID PROFILE (LIPID PANEL) (03/08/2019 [...] DE LA VEGA et al. UYEN. 2013;310(19): 9023-7491 (http://education.MobiVita.iOTOS, Inc/faq/NUJ289) CHOL/HDLC RATIO 3.2 <5.0 (calc) [facility] Non HDL Cholesterol 133(H) <130 mg/dL (calc) [facility] Comment: For patients with diabetes plus 1 major ASCVD risk factor, treating to a non-HDL-C goal of <100 mg/dL (LDL-C of <70 mg/dL) is considered a therapeutic option. Test Performed at: [facility] [place], [place] ??[address] TANIA PATLE DO,MPH Blood BLOOD SPECIMEN / Unknown 03/08/2019 11:26 AM CDT 03/08/2019 11:[address] Rae Tobias BONSAI CULTURIST-HYDROSTATIC TESTER LAB - JOSHUA BUNNY ORDERABLES Performing Organization Address City/State/[facility] Co de Phone Number [facility] [address] [place] [address] * HEMOGLOBIN A1C (HgbA1C) (03/08/2019 11:26 AM CDT) Hemoglobin A1c 5.2 <5.7 % of total [...] diagnosis of diabetes in children. According to [place] Diabetes Association (ADA) guidelines, hemoglobin A1c <7.0% represents optimal control in non- diabetic patients. Different metrics may apply to specific patient populations. Standards of Medical Care in Diabetes(ADA). ?? REPORT COMMENT: FASTING:YES Test Performed at: [employer] [address] [place], [place] ??[address] TANIA PATEL DO,MPH Blood BLOOD SPECIMEN / Unknown 03/08/2019 11:26 AM CDT 03/08/2019 11:[address] Feliz Tobias BONSAI CULTURIST-HYDROSTATIC TESTER LAB - JOSHUA BUNNY ORDERABLES Performing Organization Address [place]/[facility] Co de Phone Number [facility] [address] [place] [address] * (ABNORMAL) VITAMIN D 25-HYDROXY (03/08/2019 11:26 AM CDT) Pathologist [facility] Vitamin D, 25 Hydroxy 28(L) 30 - [...] D, (D2,D3), LC/MS/MS is recommended: order code 37996 (patients >2yrs). For more information on this test, go to: http://education.Launchups/faq/SRF485 (This link is being provided for informational/educational purposes only.) Test Performed at: [facility] [address] [place], [place] ??[address] TANIA PATEL DO,MPH Blood BLOOD SPECIMEN / Unknown 03/08/2019 11:26 AM CDT 03/08/2019 11:[address] Trini ANNEHYDROSTATIC TESTER LAB - JOSHUA BUNNY ORDERABLES Performing Organization Address [place]/[facility] Co de Phone Number [facility] [address] [place] [address] * COMPREHENSIVE METABOLIC PANEL (03/08/2019 11:26 AM CDT) Pathologist [facility] Glucose 94 65 - 99 mg/dL [facility] [...] 29 U/L [facility] Comment: Test Performed at: [facility] ??[phone] TANIA PATEL DO,MPH Blood BLOOD SPECIMEN / Unknown 03/08/2019 11:26 AM CDT 03/08/2019 11:[address] Collado BONSAI CULTURIST-HYDROSTATIC TESTER LAB - JOSHUA BUNNY ORDERABLES [facility] [address] [place] [address] * CBC W/O DIFFERENTIAL (03/08/2019 11:26 AM CDT) White Blood Cell Count 7.9 3.8 - [...] 12.5 fL [facility] Comment: Test Performed at: [facility] [id number] [place] [address] ??[phone] TANIA PATEL DO,MPH Blood BLOOD SPECIMEN / Unknown 03/08/2019 11:26 AM CDT 03/08/2019 11:[address] Trini Collado BONSAI CULTURIST-HYDROSTATIC TESTER LAB - HEM ATOLOGY ORDERABLES [employer] [address] [place] [address] documented in this encounter Visit Diagnoses Diagnosis Abdominal pain, LUQ (left upper quadrant)- Primary Abdominal pain, left upper quadrant Abdominal pain, RUQ (right upper quadrant) Abdominal pain, right upper quadrant Nausea Nausea alone Right upper quadrant abdominal pain Abdominal pain, right upper quadrant Heartburn Abdominal pain, LUQ (left upper quadrant) Abdominal pain, left upper quadrant Abdominal pain, RUQ (right upper quadrant) Abdominal pain, right upper quadrant Nausea Nausea alone Right upper quadrant abdominal pain Abdominal pain, right upper quadrant Heartburn documented in this encounter Care Teams Metal Roaster Relationship Specialty Start Date End Date Kelly Roberts, RN Pharmacist Manager 12/28/14 documented as of this encounter
--- OUTSIDE RECORDS SUMMARY | 2024-11-15 03:19 | XMS_ITS | Encounter Summary ---
Author Organization [facility] Address [address] [place] [address] Care Team Providers Care Senior Litigation Paralegal Name Role Phone Kelly Roberts RN Unavailable [phone] Reason for Visit * Reason Onset Date Comments Results 04/02/2018 Encounter Details Date Type Department Care Team (Late st Contact Info) Description 04/02/2018 Telephone [facility] [address] [address] [address] Collado, [facility] [place] [address] [address] [place] [address] Results Social History Tobacco Use [...] Encounter - Ct Collado APRN-CNP - 04/02/2018 3:33 PM CDT Patient ok to schedule surgery for Lap Radah with intra-op EGD on Friday04/06/2018. This will be given to [facility] to schedule. All questions were addressed. documented in this encounter Plan of Treatment Not on file documented as of this encounter Visit Diagnoses Not on filedocumented in this encounter Care Teams Senior Litigation Paralegal Relationship Specialty Start Date End Date Kelly Roberts RN Humidifier Maintenance Worker 12/28/14 documented as of this encounter
--- OUTSIDE RECORDS SUMMARY | 2024-11-15 03:19 | XMS_ITS | Encounter Summary ---
Author Organization [facility] Address [address] [place] [address] Care Team Providers Care Innersole Fitter Name Role Phone Unavailable Primary Care Provider Unavailabl e Reason for Visit * Auth/Cert - Closed Specialty Diagnoses / Procedures Referred By Jesse santana Referred To Contact Diagnoses Morbid obesity (HCC) Procedures LAPAROSCOPY LONGITUDINAL OR SLEEVE GASTRECTOMY Referral ID Status Reason Start Date Expiration Date Visits Re quested Visits Authorized [id number] Closed 1 1 Encounter Details Date Type Department Care Team (Late st Contact Info) Description 12/27/2014 7:30 AM BOILER HOUSE INSPECTOR - 12/27/2014 9:43 AM BOILER HOUSE INSPECTOR Surgery [facility] - Perioperative Surgery [address] [place] [address] [place] [id number] [facility] [address] [place] [address] LAPAROSCOPIC VERTICAL SLEEVE GASTRECTOMY Surgery Details Date/Time Status Location OR Service Patient Class Case Class Case Type Trauma Case? 12/27/2014 7:30 AM Posted [facility] MAIN OR OR 03 Bariatric Co Pilot Admit Surgical Elective > 5 days Panel 1 Procedure LRB Anes Op Region Wound Class Comments LAPAROSCOPIC VERTICAL SLEEVE GASTRECTOMY General Abdomen Clean Contaminated Surgeon Surgeon Role Service Panel Rashawn Herring MD Primary Bariatric 1 documented in this encounter Social History Tobacco [...] Sign Reading Time Taken Comments Blood Pressure 126/78 12/29/2014 7:58 AM BOILER HOUSE INSPECTOR Pulse 82 12/29/2014 7:58 AM BOILER HOUSE INSPECTOR Temperature 37.1 ??C (98.8 ??F) 12/29/2014 7:58 AM CS T Respiratory Rate 16 12/29/2014 7:58 AM BOILER HOUSE INSPECTOR Oxygen Saturation 93% 12/29/2014 7:58 AM BOILER HOUSE INSPECTOR Inhaled Oxygen Concentration - - Weight 122.9 kg (271 lb) 12/27/2014 6:10 AM BOILER HOUSE INSPECTOR Height 182.9 cm (6') 12/27/2014 6:10 AM BOILER HOUSE INSPECTOR Body Mass Index 36.75 12/27/2014 6:10 AM BOILER HOUSE INSPECTOR documented in this encounter Functional Status Functional [...] No 12/29/2014 documented as of this encounter Discharge Summaries * Rashawn Herring MD - 01/02/2015 11:31 PM CST Bariatric Surgery Discharge Summary [address] [address] Finesse Ramirez Admission weight: Weight: 271 lb (122.925 kg) (12/27/14609) Most recent weight: Weight: 271 lb (122.925 kg) (12/27/14609) 12/29/2014 [id number] 1970 Admitting Diagnosis: Clinically Severe Obesity with multiple co-morbidities Body mass index is 36.75 kg/(m^2). Past Medical History Diagnosis Date ??? Arthritis ??? Asthma ??? Hypertension ??? Migraine ??? Elevated cholesterol not on Rx ??? Chest pain cath 06/2013 pt states ok ??? Fatty liver disease, nonalcoholic ??? DJD (degenerative joint disease) ??? History of gastric ulcer ??? PCOS (polycystic ovarian syndrome) Discharge Diagnosis: Same. Principal Procedures Performed: 1. Laparoscopic sleeve gastrectomy History and Hospital Course: The patient underwent the procedures noted above on the day of admission. Following surgery, the patient was taken from the operating room to the recovery room, and laterto hospital room. Vital signs were carefully monitored. The patient was started on a phase I bariatric diet. The patient underwent an UGI study which demonstrated no evidence of gastric leak or obstruction. Preoperative medication was administered when indicated by either an oral or parenteral route. Additional assessments of the patient's vital signs, laboratory values and level of pain were performed throughout the patient's hospitalization. The patient was also followed by a hospitalist to ma nage comorbid conditions. On the day of discharge, the patient was instructed on diet and medication, as well as on wound care. The patient was given a prescription for pain medication and told to take a PPI daily. Showers were allowed, but the patient was told not to submerge in water. Finally, the patient was instructed to arrange for a follow-up appointment in seven to ten days, and to call iffever occurred, nausea persisted, emesis occurred or if there was excessive redenss at the wound sites. DISCHARGE INSTRUCTIONS: No lifting greater than 15 pounds for one week. To continue the exercising of legs to prevent DVT's, the patient is to walk every day. The patient is to call the office with noted abnormal swelling or pain in legs, has a fever of 101 or greater, or noted drainage or redness from the incision site, or if the incision site becomes open in some fashion. DISCHARGE MEDICATIONS: See discharge instructions. Patient was instructed to take pills only if small, otherwise to crush them, as well as to refrain from taking any type of nonsteriodal anti-inflammatory medications. Condition: stable Discharge Disposition: Home Rashawn Herring MD ER HOUSE INSPECTOR documented in this encounter Medications at Time [...] as needed. Bring day of surgery 04/06/2018 hydrocortisone butyrate 0.1 % cream - ketoconazole 2% cream 50:50 CREA Apply to affected area 2 times daily as needed. 11/04/2021 labetalol (NORMODYNE; TRANDATE) 100 MG tablet Take 100 mg by mouth 3 times daily. Instructed to take AM of surgery 06/26/2015 lansoprazole (PREVACID) 30 MG capsule Take 1 Cap by mouth daily before breakfast. 30 Cap 5 12/29/2014 04/03/2018 methyldopa (ALDOMET) 500 MG tablet Take 500 mg by mouth 2 times daily. Instructed to take AM of surgery 06/26/2015 oxyCODONE (ROXICODONE) 5 MG/5ML oral solution Take 5 mL by mouth every 4 hours as needed. 400 mL 0 12/28/2014 06/26/2015 sucralfate (CARAFATE) 1 GM/10ML suspension Take 10 mL by mouth 4 times daily - before meals & nightly. 420 mL 1 12/29/2014 06/26/2015 documented as of this encounter Progress Notes * Cayla Almendarez RN - 12/29/2014 12:06 PM CST Shift Summary: Patient A&Ox4. Patient pain controlled. Tolerating diet well. IV removed, tip intact. Discharge instructions reviewed with patient. Patient discharged. Cayla Almendarez RN 12/29/2014 12:06 PM ER HOUSE INSPECTOR * Suzette Wiley APRN-SUGAR - 12/29/2014 11:09 AM CST Bariatric Surgery Progress Note Finesse Ramirez Admit Date: 12/27/2014 5:41 AM Hospital Day: 2 Procedure: Laparoscopic sleeve gastrectomy POD#2 Overnight Events: None Subjective: Pain well controlled, no nausea or emesis, ambulated, Tolerating Phase I diet She has some pain with swallowing She denies any CP or SOB Overall feels better Data Vitals: 12/28/14201312/29/14 0015 12/29/14 0459 12/29/14 0758 BP: 94/50 135/86 126/78 126/78 Pulse: 97 87 86 82 Temp: 99 ??F 99.1 ??F 98.8 ??F Resp: 16 16 16 Weight: SpO2: 100% 94% 93% Intake/Output Summary (Last 24 hours) at 12/29/14 1110 Last data filed at 12/29/14 0801 Gross per 24 hour Intake 4746 ml Output 2800 ml Net 1946 ml Current Facility-Administered Medications Medication ??? sucralfate (CARAFATE) suspension 1 g ??? *Hold/Avoid Medication ??? iohexol (OMNIPAQUE 350) contrast ??? oxyCODONE (ROXICODONE) oral solution 10 mg ??? dextrose 5 % 500 mL with M.V.I. (MVI adult) 10 mL infusion ??? 0.45% NaCl with potassium chloride 20meq infusion ??? acetaminophen (TYLENOL) solution 500 mg ??? buPROPion SR 12hr (WELLBUTRIN-SR) tablet 150 mg ??? carisoprodol (SOMA) tablet 350 mg ??? hydrocortisone butyrate 0.1 % cream - ketoconazole 2% cream 50:50 compound ??? labetalol (NORMODYNE; TRANDATE) tablet 100 mg ??? methyldopa (ALDOMET) tablet 500 mg ??? dextrose (Diabetic Use) 40 % oral gel 1 Tube Or ??? dextrose injection 12.5-25 g Or ??? glucagon (GLUCAGEN) injection 1 mg ??? albuterol HFA (PROVENTIL;VENTOLIN;PROAIR) 108 (90 BASE) MCG/ACT inhaler 2 Puff ??? ondansetron (ZOFRAN) injection 4 mg ??? scopolamine (TRANSDERM-SCOP) 1.5 MG patch 1.5 mg ??? metoclopramide (REGLAN) injection 10 mg ??? pantoprazole (PROTONIX) injection 40 mg Recent Labs Component Name 02/10/31 40912/28/146 12/14/14 0850 SODIUM 136 135* 138 POTASSIUM 3.7 3.6 3.9 CHLORIDE 105 102 105 CO2 27 27 26 BUN 12 11 15 CREATININE 0.89 1.12 0.75 GLUCOSE 83 134* 95 CALCIUM 8.0* 8.1* 8.7 Recent Labs Component Name 12/29/14 04012/28/146 12/14/14 0850 WBC 9.1 10.9* 8.5 HGB 11.1* 13.0 12.7 HCT 33.3* 38.3 37.7 PLTCOUNT 186 243 264 UGI: no e/o obstruction or leak Physical Exam A+O x 3, NAD CTA B/L RRR ABD soft, ND, appropriate TTP, incisions C/D/I Neg BLE edema Assessment/Plan: S/P Laparoscopic sleeve gastrectomy POD #2 Neuro: PO pain control, add carafate PULM: aggressive IS, ambulation, OOBTC CV: stable GI: Cont Phase I diet, PPI, UGI wnl FEN: wean IVF : adequate UOP HEME: decreased H/H, heparin stopped ID: afebrile, no abx DVT: cont SCD Dispo: D/C home today and follow up in the office in 1 week Suzette Wiley, PATIENT LIAISON-GENERAL FARMWORKER ER HOUSE INSPECTOR * Francia Rausch RN - 12/29/2014 3:08 AM CST Shift Summary: Pt pain managed with percoset. BP 94/50 at 2013 so evening labetalol and methyldopa medications held. Pt slept well during night. No c/o nausea. IV infusing. ER HOUSE INSPECTOR * Francia Rausch RN - 12/28/2014 7:33 PM CST Problem: Post-Op Bariatric Gastric Bypass Surgery Goal: Day of Surgery - PostOp Bariatric Bypass Surgery Outcome: Goal Met Date Met: 12/28/14 ER HOUSE INSPECTOR * Cayla Almendarez RN - 12/28/2014 3:30 PM CST Shift Summary: Patient A&Ox4. Patient pain controlled. Tolerating diet well. Patient walking. IV infusing. Vital signs stable. Patient resting comfortably. Will continue to monitor patient. Cayla Almendarez RN 12/28/2014 3:30 PM ER HOUSE INSPECTOR * Rayray Blanchard MD - 12/28/2014 12:32 PM CST Hospitalist Progress Note Admit Date: 12/27/2014 5:41 AM Hospital Day: 1 Clinical Course Overall patient has slightly improved since admit New Symptoms Patient has no new symptoms Voided. Merna po with no nausea or vomiting . Ambulating Data Vitals: 12/27/14 2315 12/28/14 0220 12/28/14 0730 12/28/14 1057 BP: 131/74 129/74 117/74 119/62 Pulse: 76 106 103 107 Temp: 98.3 ??F 98.2 ??F 99.6 ??F 98.7 ??F Resp: 16 16 16 16 Weight: SpO2: 96% 93% 100% 100% Temp (30hrs) Max:99.6 ??F My review of labs, imaging, notes and other tests is significant for Recent Labs Component Name 12/28/1422512/14/14 0850 WBC 10.9* 8.5 HGB 13.0 12.7 HCT 38.3 37.7 PLTCOUNT 243 264 Recent Labs Component Name 12/28/1422512/14/14 0850 SODIUM 135* 138 POTASSIUM 3.6 3.9 CHLORIDE 102 105 CO2 27 26 BUN 11 15 CREATININE 1.12 0.75 GLUCOSE 134* 95 CALCIUM 8.1* 8.7 Exam General appearance: alert, cooperative, no distress Heart: regular rhythm, normal S1 and S2, without murmurs, rubs or gallops Lungs: breath sounds normal and symmetric; no rales or wheezes Abdomen: soft with normal bowel sounds Extremities: no clubbing, cyanosis. POLYMERIZATION SUPERVISOR. Alert and oriented x 3. Cranial nerves 2-12 grossly normal. Power tone all 4 extremeties normal Assessment and Plan 1. Post-op Day Hospital Day: 1 Continue Post op orders per protocol . Encourage incentive spirometry at bedside. DVT prophylaxis to continue with SCD and chemoprophylaxis per surgeon. GI prophylaxis to continue with H2 blockers or Proton Pump inhibitors 2. Mild Tachycardia - Could be related to Pain vs. Anxiety -Continue IV fluids with 0.45% NaCl with KCl 20 mEq at 150 cc/hr. Recent Labs Component Name 12/28/14 0226 TSH 1.27 Improved 3. Mild Hypoxia - Could be related to General Anesthesia -Encouraged incentive spirometry. Improved now 4. Nausea+Dry Heaving - Likely due to Anesthesia -Anti-emetics. -Scopolamine patch.--Improving 5. Hypertension - Controlled -Continue Labetalol and Methyldopa. 6. Hyperlipidemia - stable 7. Asthma - stable -Continue Albuterol HFA prn. 8. Osteoarthritis - stable -Pain Management. -Continue Soma prn. 9. Depression - mood stable -Continue Wellbutrin-SR. 10. Migraines - stable -Pain management. 11. History of Gastric Ulcer+GERD -Protonix 40 mg IV daily. 12. Nonalcoholic Fatty Liver Disease 13. Polycystic Ovarian Disease No metformin post op. Symptoms may improve with wt loss. ER HOUSE INSPECTOR * Grace Funes, CHRISTEN/VINNY - 12/28/2014 11:00 AM CST Nutrition: Nutrition consult completed. Bariatric diet education and nutrition guidelines per Weight [facility] [place] discussed. See Education section for details ER HOUSE INSPECTOR * Kelly Roberts RN - 12/28/2014 10:35 AM CST Chart reviewed Case Management Initial Assessment Case Management screen completed, welcome letter given. Met with patient Lives with: +Spouse Family Support (name and phone): Extended Emergency Contact Information Primary Emergency Contact: ChaparrofreddieWally [facility] Relation: Spouse Secondary Emergency Contact: Joselin Jensen [facility] Mobile Relation: Mother Anticipated Discharge Date: Anticipated Discharge Date: 12/29/14 Anticipated level of care / disposition at discharge: *Home Prior Level of Functioning: Independent ADLs PCP: Laureano Lantigua Discharge Medications Needs: None SW Referral: no If patient requires HHC at discharge, he/she requests: [facility] or in network HHC agency Transportation at discharge: Family Comments: POD #1, laparoscopic sleeve gastrectomy, spoke with pt, lives with spouse, no dc needs identified. Will continue to follow. For any questions or needs please contact: Materials Engineer Name/Phone number: Kelly Roberts RN Ascom [phone] pager [phone] ER HOUSE INSPECTOR * Suzette Wiley, PATIENT LIAISON-GENERAL FARMWORKER - 12/28/2014 10:15 AM CST Bariatric Surgery Progress Note Finesse Ramirez Admit Date: 12/27/2014 5:41 AM Hospital Day: 1 Procedure: Laparoscopic sleeve gastrectomy POD#1 Overnight Events: Pain with swallowing and incisional pain Subjective: Pain not Controlled with oral medication. She reports that she received dilaudid this am and this did improve her pain, no nausea or emesis, ambulated, Tolerating Phase I diet slowly She denies any CP orSOB Data Vitals: 12/27/14 2057 12/27/14 2315 12/28/14 0220 12/28/14 0730 BP: 118/72 131/74 129/74 117/74 Pulse: 99 76 106 103 Temp: 98.3 ??F 98.3 ??F 98.2 ??F 99.6 ??F Resp: 16 16 16 16 Weight: SpO2: 95% 96% 93% 100% Intake/Output Summary (Last 24 hours) at 12/28/14 1017 Last data filed at 12/28/14 0452 Gross per 24 hour Intake 3549 ml Output 1550 ml Net 1999 ml Current Facility-Administered Medications Medication ??? lactated ringers iv bolus ??? *Hold/Avoid Medication ??? iohexol (OMNIPAQUE 350) contrast ??? dextrose 5 % 500 mL with M.V.I. (MVI adult) 10 mL infusion ??? 0.45% NaCl with potassium chloride 20meq infusion ??? heparin injection 5,000 Units ??? acetaminophen (TYLENOL) solution 500 mg ??? oxyCODONE (ROXICODONE) oral solution 5 mg ??? buPROPion SR 12hr (WELLBUTRIN-SR) tablet 150 mg ??? carisoprodol (SOMA) tablet 350 mg ??? hydrocortisone butyrate 0.1 % cream - ketoconazole 2% cream 50:50 compound ??? labetalol (NORMODYNE; TRANDATE) tablet 100 mg ??? methyldopa (ALDOMET) tablet 500 mg ??? dextrose (Diabetic Use) 40 % oral gel 1 Tube Or ??? dextrose injection 12.5-25 g Or ??? glucagon (GLUCAGEN) injection 1 mg ??? albuterol HFA (PROVENTIL;VENTOLIN;PROAIR) 108 (90 BASE) MCG/ACT inhaler 2 Puff ??? ondansetron (ZOFRAN) injection 4 mg ??? scopolamine (TRANSDERM-SCOP) 1.5 MG patch 1.5 mg ??? metoclopramide (REGLAN) injection 10 mg ??? pantoprazole (PROTONIX) injection 40 mg Recent Labs Component Name 12/28/14 0226 12/14/14 0850 SODIUM 135* 138 POTASSIUM 3.6 3.9 CHLORIDE 102 105 CO2 27 26 BUN 11 15 CREATININE 1.12 0.75 GLUCOSE 134* 95 CALCIUM 8.1* 8.7 Recent Labs Component Name 12/28/1422512/14/14 0850 WBC 10.9* 8.5 HGB 13.0 12.7 HCT 38.3 37.7 PLTCOUNT 243 264 UGI:pending Physical Exam A+O x 3, NAD CTA B/L RRR ABD soft, ND, appropriate TTP, incisions C/D/I Neg BLE edema Assessment/Plan: S/P Laparoscopic sleeve gastrectomy POD #1 Neuro: PO pain control, will add 1x dose of toradol PULM: aggressive IS, ambulation, OOBTC CV: stable GI: Cont Phase I diet, PPI, UGI pending FEN: continue IVF : adequate UOP HEME: stable H/H ID: afebrile, no abx DVT: cont SCD and heparin Dispo: await UGI results, continue with pain control and add medication. Continue with nausea control, monitor oral intake and Dr. Herring to see Suzette Wiley, CÉSAR-SUGAR ER HOUSE INSPECTOR * Francia Rausch RN - 12/28/2014 3:46 AM CST Shift Summary: Pt c/o nausea, scheduled reglan and Scopolamine patch effective. Pain when swallowing, education given, roxicodone administered. Up to void in bathroom. Ambulated 1x around 6S halls, well tolerated. Abx infused. NPO at 0500 for gastrograffin. ER HOUSE INSPECTOR * Yenni Estrada RN - 12/27/2014 12:27 PM CST Pt also states only dilaudid works for me ER HOUSE INSPECTOR * Yenni Estrada RN - 12/27/2014 12:04 PM CST Pt was sleeping and sleep for 15- 30 min after pain medication given. Awakens anxious, restless states no relie f, states I never have this problem until I come here in pacu. Pt re-assured, In formed difficult to give high doses of pain medication if oxygen sat deteriorates below standard level. Other comfort measures offered as well. Pt needed sedation at this time to help her relax. ER HOUSE INSPECTOR documented in this encounter H&P Notes * Rashawn Herring MD - 12/26/2014 10:03 PM CST BARIATRIC EVALUATION HISTORY & PHYSICAL Height: 6' (182.9 cm) Weight: 275 lb (124.739 kg) BMI (Calculated): 37.37 Chief Complaint: Morbid Obesity HPI: Pt is a 44yo F with a hx of morbid obesity who presents for surgical tx. Pt has attempted multiple weight loss regimens in the past including medical, exercise and dietary without superintendent marine oil terminal success. Pt has developed multiple comorbid conditions [...] cuff repair 2008 LEFT ??? Other surgery 2007 Left ANKLE [...] network. The patient will experience successful and superintendent marine [employer] weightloss when these components along with bariatric surgery are followed. The patient has had the above discussions with multiple program team members including surgeon, airport guide, bariatric nurse and mental health operations officer trust department. Impression: Morbid obesity with above listed comorbidities. Multiple failed diet attempts. Plan: L Sleeve Liquid Protein Diet: NoNo Weeks Patient Appointment Coordinator: Yes Additional Testing: no Comments: Limited incision, 6S, no hammonds, 2 day stay Robot candidate: no ER HOUSE INSPECTOR documented in this encounter Consult Notes * Cindy Jones PA-C - 12/27/2014 7:44 PM CSTAssociated Order(s): IP CONSULT TO HOSPITALIST Initial Hospitalist Consult Note Date of Consult: 12/27/2014 Patient's Primary Care Physician: Laureano Lantigua Physician Requesting Consult: Rashawn Herring MD Reason for Consultation: Evaluation of patient's medical problems, which include hypertension and diabetes Name: Finesse Ramirez Age: 44 y.o. Race: Sex: female Chief Complaint/History of Present Illness Pt is a 44 y.o. female with a hx of morbid obesity who presents for surgical tx. Pt has attempted multiple weight loss regimens in the past including medical, exercise and dietary without [facility] success. Pt with significant comorbid conditions that have been progressive and now negatively affecting his health. Patient underwent a successful Laparoscopic Sleeve Gastrectomy under general anaesthesia. No immediate complications. Pain is adequately controlled. Patient is awake and alert. She complains of severe gas pains on her chest. She has had intractablenausea and dry heaving. Her abdominal pain is a 7/10 currently. Her last bowel movement was this morning. She has some SOB. No change of appetite. No recent fevers or chills. No headache or blurred vision. No numbness or tingling in extremities. No weight gain or loss. No falls, seizures or loss ofconsciousness . No cough with expectoration. No diplopia, tinnitus. Mood is stable. No Bowel or bladder incontinence. No new leg swelling rash. No dysuria, hematuria , urgency of frequency of micturition. Past Medical History Diagnosis Date ??? 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 Smoking status: Never Smoker ??? Smokeless tobacco: Never Used ??? Alcohol Use: Yes Comment: social ??? Drug Use: No ??? Sexual Activity: Not on file Prescriptions prior to admission Medication Sig Dispense [...] times daily as needed.) 80 Tab 0 Allergies Allergen Reactions ??? Morphine Nausea and/or Vomiting Can take derivatives ??? Erythromycin Rash ??? Hydrocodone Nausea and/or Vomiting ??? Neurontin [Gabapentin] Other Restless Review of Systems A comprehensive 14 review of systems was negative except as described in HPI. Exam Vitals: 12/27/14 1801 12/27/14 1837 12/27/14 1934 12/27/14 1935 BP: 137/81 127/82 Pulse: 89 99 102 Temp: 97.7 ??F 97.9 ??F Resp: 16 16 Weight: SpO2: 93% 91% 91% General appearance: alert, cooperative, no distress Skin: No pallor or decreased turgor. HEENT. Normal Sclera. Normal oropharyngeal mucosa. No thrush. Heart: mild tachycardia, normal S1 and S2, without murmurs, rubs or gallops Lungs: breath sounds normal and symmetric; no rales or wheezes Abdomen: obese, non-tender, non-distended, surgical site clean/dry/intact Extremities: no clubbing, cyanosis or edema POLYMERIZATION SUPERVISOR. Alert and oriented x 3. Cranial nerves 2-12 grossly normal. Power tone all 4 extremeties normal Data I have reviewed the patient's labs and the review is significant for: Recent Labs Component Name 12/14/14 0850 01/18/11 0115 01/10/11 1025 WBC 8.5 -- -- HGB 12.7 13.1 14.2 HCT 37.7 39.5 43.3 PLTCOUNT 264 -- -- Recent Labs Component Name 12/14/14 0850 01/10/11 1025 SODIUM 138 140 POTASSIUM 3.9 4.1 CHLORIDE 105 105 CO2 26 23 BUN 15 13 CREATININE 0.75 0.9 GLUCOSE 95 70 CALCIUM 8.7 9.6 Assessment and Plan Records available in chart ( paper and electronic) were reviewed. Home medications were reviewed 1. Post-op Day Hospital Day: 0 Follow post op orders. DVT prophylaxis to continue with SCD and chemoprophylaxis per surgeon preference - Heparin 5000 units subcutaneously bid. Encouraged ambulation. Incentive spirometry at bedside. As tolerated. GI prophylaxis to continue with H2 blockers or Proton Pump inhibitors 2. Mild Tachycardia - Could be related to Pain vs. Anxiety -Continue IV fluids with 0.45% NaCl with KCl 20 mEq at 150 cc/hr. -Check TSH level. -Consider telemetry monitoring if no improvement. 3. Mild Hypoxia - Could be related to General Anesthesia -Encouraged incentive spirometry. -Her O2 saturation has been running at 91% while on 2 Liters of O2 via nasal cannula. -Monitor O2 saturation carefully. -Consider CT of the chest if no improvement. 4. Nausea+Dry Heaving - Likely due to Anesthesia -Anti-emetics. -Scopolamine patch. 5. Hypertension - Controlled -Continue Labetalol and Methyldopa. 6. Hyperlipidemia - stable 7. Asthma - stable -Continue Albuterol HFA prn. 8. Osteoarthritis - stable -Pain Management. -Continue Soma prn. 9. Depression - mood stable -Continue Wellbutrin-SR. 10. Migraines - stable -Pain management. 11. History of Gastric Ulcer+GERD -Protonix 40 mg IV daily. 12. Nonalcoholic Fatty Liver Disease 13. Polycystic Ovarian Disease -Continue Metformin when able to eat food. Treatment plan discussed with patient at bedside. All questions were answered. Orders placed in chart. CC: Rashawn Callaway MD ER HOUSE INSPECTOR documented in this encounter OR Notes * Operative - Rashawn Herring MD - 12/27/2014 8:59 AM CST [facility] Operative Report OPERATIVE REPORT PATIENT:Finesse Ramirez MR#: ADMIT DATE: 12/27/2014 5:41 AM ACCT#: DATE OF SURGERY: 12/27/2014 : 1970 PHYSICIAN: Rashawn Herring MD 44 yrs Body mass index is 36.75 kg/(m^2). PREOPERATIVE DIAGNOSES: Morbid Obesity, Body mass index is 36.75 kg/(m^2). Past Medical History Diagnosis Date ??? Arthritis ??? Asthma ??? Hypertension ??? Migraine ??? Elevated cholesterol not on Rx ??? Chest pain cath 06/2013 pt states ok ??? Fatty liver disease, nonalcoholic ??? DJD (degenerative joint disease) ??? History of gastric ulcer ??? PCOS (polycystic ovarian syndrome) POSTOPERATIVE DIAGNOSES: SAME PROCEDURES PERFORMED: 1. Laparoscopic sleeve gastrectomy SURGEON: Rashawn Herring MD MACHINIST CLASS B: Blanca Jenkins RN ANESTHESIA: General endotracheal. PROCEDURE: The patient was brought to the operating suite. Pt was placed under general endotrachealanesthesia. Pt was prepped and draped in the usual sterile fashion. Two periumbilical incisions were made, 5mm and 12mm in size. A 5mm optical port was placed into the peritoneal cavity under direct vision. Peritoneal cavity was insufflated with CO2 gas to 15 mmHg pressure. A 45-degree angled laparoscope was placed in the peritoneal cavity. There was no blood, fluid, or evidence of intraabdominalinjury. Separate 5 mm ports were placed in the bilateral upper quadrants. A 12mm port was placed inthe second periumbilical incision alongside the prior trocar. The patient was placed in steep reverse Trendelenburg position. The left lobe of the liver was elevated. A 2-0 ethibond suture was placedat the crural apex and the two ends were brought out of the abdominal wall using a transfascial suture passer. The sutures were positioned such that they elevated the left liver lobe and exposed the GE junction. The angle of His was dissected bluntly. At this point, the short gastric vessels were taken down in their entirety along the greater curvature going all the way up to the angle of His then distally to approximately 2.5 cm from the pylorus. The 34 to 36 Fr gastric calibration tube was then passed through the oropharynx down the esophagus into the stomach. The gastric calibration tube was passed following the lesser curve through the pylorus and into the duodenum. The gastric calibration tube was grasped with a grasper near the pylorus and it was pulled back so as to straighten out the gastroscope and remove any excess tubing and loops. The gastric calibration tube now was lying directly along the lesser curve of the stomach. A laparoscopic [place] stapler was used to begin the gastr ectomy at 2.5 cm from the pylorus. The two initial firings were green load staple cartridges then followed by blue load staple cartridges for the remaining firings. Multiple staple firings ensued with the endoscopic stapler using the gastric calibration tubing as a template. Care was taken at the level of the incisura to avoid a stricture. The last staple firing was directed at the angle of His thereby excluding the fundus. At this point, the greater part of the stomach had been completely dissected free and was removed from the abdomen using an endocatch bag. Air insufflation using the gastric calibration tube was used to test the staple line by submersing it under saline. There was no evid ence of air bubbles and no evidence of a staple line leak. 3-0 vicryl suture was used to oversew staple line oozing. The liver retraction ethibond stitch was cut and removed.The fascia of the 12mm trocar site was closed with an 0 Vicryl suture in a transfascial fashion. The remaining trocars were removed under direct vision with no evidence of any bleeding. CO2 gas was allowed to slowly escape. Skin incisions were closed with a running 4-0 vicryl suture. The patient tolerated the procedure welland was taken to recovery in stable condition. EBL: 25ml SPECIMEN: partial stomach discarded FINDINGS: No evidence of air bubbles on insufflation test. 34 to 36 Fr gastric calibration tube used for sizing gastric sleeve diameter COMPLICATIONS: None. Rashawn Herring MD ER HOUSE INSPECTOR documented in this encounter Plan of Treatment Scheduled Orders Name Type Priority Associated Diagnoses Order Schedule INCENTIVE SPIROMETRY Respiratory Care Routine ONCE for 1 Occurrences starting 12/27/2014 until 12/27/2014 documented as of this encounter Procedures Procedure Name Priority Date/Time Associated Diagnosis Comments CARDIAC PROCEDURE ORDER 12/30/2014 8:34 PM BOILER HOUSE INSPECTOR CARDIAC EKG ORDER 12/30/2014 8:3 4 PM BOILER HOUSE INSPECTOR GLUCOSE - POINT OF CARE Routine 12/29/2014 10:36 AM BOILER HOUSE INSPECTOR GLUCOSE - POINT OF CARE Routine 12/29/2014 6:10 AM BOILER HOUSE INSPECTOR CBC W AUTO DIFFERENTIAL AM Draw 12/29/2014 4:09 AM BOILER HOUSE INSPECTOR BASIC METABOLIC PANEL (CALCIUM TOTAL) AM Draw 12/29/2014 4:09 AM BOILER HOUSE INSPECTOR GLUCOSE - POINT OF CARE Routine 12/29/2014 12:09 AM BOILER HOUSE INSPECTOR GLUCOSE - POINT OF CARE Routine 12/28/2014 3:40 PM BOILER HOUSE INSPECTOR GLUCOSE - POINT OF CARE Routine 12/28/2014 10:55 AM BOILER HOUSE INSPECTOR FL FLUORO UPPER GI TRACT + KUB Routine 12/28/2014 8:15 AM BOILER HOUSE INSPECTOR H/O laparoscopic partial gastrectomy HEMOGLOBIN A1C Routine 12/28/2014 2:26 AM BOILER HOUSE INSPECTOR H/O laparoscopic partial gastrectomy Lumbar back pain History of gastric ulcer DJD (degenerative joint disease) Fatty liver disease, nonalcoholic Elevated cholesterol Hypertension Arthritis Morbid obesity (HCC) VITAMIN D 25-HYDROXY AM Draw 12/28/2014 2:26 AM BOILER HOUSE INSPECTOR CBC W AUTO DIFFERENTIAL AM Draw 12/28/2014 2:26 AM BOILER HOUSE INSPECTOR BASIC METABOLIC PANEL (CALCIUM TOTAL) AM Draw 12/28/2014 2:26 AM BOILER HOUSE INSPECTOR TSH AM Draw 12/28/2014 2:26 AM BOILER HOUSE INSPECTOR H/O laparoscopic partial gastrectomy Lumbar back pain History of gastric ulcer DJD (degenerative joint disease) Fatty liver disease, nonalcoholic Elevated cholesterol Hypertension Arthritis Morbid obesity (HCC) GLUCOSE - POINT OF CARE Routine 12/27/2014 10:26 PM BOILER HOUSE INSPECTOR GLUCOSE - POINT OF CARE Routine 12/27/2014 9:27 AM BOILER HOUSE INSPECTOR LAPAROSCOPIC GASTRECTOMY (LONGITUDINAL/SLEEVE) 12/27/2014 7:30 AM BOILER HOUSE INSPECTOR Morbid obesity (HCC) HCG URINE QUALITATIVE - POINT OF CARE STAT 12/27/2014 6:20 AM BOILER HOUSE INSPECTOR documented in this encounter Results * CARDIAC PROCEDURE ORDER (12/30/2014 8:34 PM BOILER HOUSE INSPECTOR) Narrative 12/30/2014 8:34 PM BOILER HOUSE INSPECTOR Ordered by an unspecified provider. Scanned Document CARDIAC SERVICES ORD ERABLES * CARDIAC EKG ORDER (12/30/2014 8:34 PM BOILER HOUSE INSPECTOR) Narrative 12/30/2014 8:34 PM BOILER HOUSE INSPECTOR Ordered by an unspecified provider. Scanned Document CARDIAC SERVICES ORD ERABLES * GLUCOSE - POINT OF CARE (12/29/2014 10:36 AM BOILER HOUSE INSPECTOR) Glucose WB/POC 87 70 - 106 mg/dL 12/29/2014 12:59 PM BOILER HOUSE INSPECTOR [facility] Blood BLOOD SPECIMEN / Unknown 12/29/2014 10:36 AM BOILER HOUSE INSPECTOR 12/29/2014 12:59 PM BOILER HOUSE INSPECTOR Rashawn Herring MD LAB - POINT OF CARE ORDERABLES Performing Organization Address City/[facility] Co de Phone Number [facility] [address] [place] [address] * GLUCOSE - POINT OF CARE (12/29/2014 6:10 AM BOILER HOUSE INSPECTOR) Glucose WB/POC 74 70 - 106 mg/dL 12/29/2014 6:27 AM BOILER HOUSE INSPECTOR [facility] Blood BLOOD SPECIMEN / Unknown 12/29/2014 6:10 AM BOILER HOUSE INSPECTOR 12/29/2014 6:27 AM BOILER HOUSE INSPECTOR Rashawn Herring MD LAB - POINT OF CARE ORDERABLES Performing Organization Address [facility] de Phone Number [facility] [address] [place] [address] * (ABNORMAL) BASIC METABOLIC PANEL (CALCIUM TOTAL) (12/29/2014 4:09 AM BOILER HOUSE INSPECTOR) Glucose 83 74 - 106 mg/dL 12/29/2014 5:48 AM BOILER HOUSE INSPECTOR [facility] Sodium 136 136 - 145 mmol/L 12/29/2014 5:48 AM BOILER HOUSE INSPECTOR [facility] Potassium 3.7 3.5 - 5.1 mmol/L 12/29/2014 5:48 AM [facility] Chloride 105 98 - 107 mmol/L 12/29/2014 5:48 AM [facility] CO2 27 22 - 31 mmol/L 12/29/2014 5:48 AM [facility] Calcium 8.0(L) 8.5 - 10.1 mg/dL 12/29/2014 5:48 AM [facility] Anion Gap 4(L) 5 - 15 mmol/L 12/29/2014 5:48 AM [facility] BUN 12 7 - 21 mg/dL 12/29/2014 5:48 AM [facility] Creatinine 0.89 0.50 - 1.30 mg/dL 12/29/2014 5:48 AM [facility] eGFR by MDRD >60 >60 mL/min/1.7 3m2 12/29/2014 5:48 AM [facility] eGFR by MDRD >60 >60 mL/min/1.7 3m2 12/29/2014 5:48 AM [facility] Blood BLOOD SPECIMEN / Unknown 12/29/2014 4:09 AM BOILER HOUSE INSPECTOR 12/29/2014 5:22 AM [facility] Rashawn Herring MD [facility] Organization Address City/State/ZIP Co de Phone Number [facility] [address] [place] [address] * (ABNORMAL) CBC W AUTO DIFFERENTIAL (12/29/2014 4:09 AM [facility]) WBC 9.1 4.4 - 10.7 x10^9/L 12/29/2014 5:32 AM [facility] RBC 3.65(L) 3.80 - 5.20 x10^12/L 12/29/2014 5:32 AM [facility] Hemoglobin 11.1(L) 12.0 - 15.6 gm/dL 12/29/2014 5:32 AM [facility] Hematocrit 33.3(L) 35.9 - 45.5 % 12/29/2014 5:32 AM [facility] MCV 91.2 80.7 - 98.3 fl 12/29/2014 5:32 AM [facility] MCH 30.4 26.7 - 34.0 pg 12/29/2014 5:32 AM [facility] MCHC 33.3 30.8 - 35.9 gm/dL 12/29/2014 5:32 AM [facility] Platelet Count 186 153 - 416 x10^9/L 12/29/2014 5:32 AM [facility] RDW-CV 13.4 12.1 - 14.9 % 12/29/2014 5:32 AM [facility] MPV 11.2 9.4 - 12.9 fl 12/29/2014 5:32 AM [facility] Neutrophils % 56.3 44.0 - 73.0 % 12/29/2014 5:32 AM [facility] Lymphocytes % 30.5 20.0 - 43.0 % 12/29/2014 5:32 AM [facility] Monocytes % 11.6 5.0 - 13.0 % 12/29/2014 5:32 AM [facility] Eosinophils % 1.0 0.0 - 6.0 % 12/29/2014 5:32 AM [facility] Basophils % 0.2 0.0 - 2.0 % 12/29/2014 5:32 AM [facility] Immature Granulocytes 0.4 0 - 1 % 12/29/2014 5:32 AM [facility] Neutrophil Absolute 5.11 2.01 - 7.14 x10^9/L 12/29/2014 5:32 AM [facility] Lymphocytes Absolute 2.77 1.07 - 3.94 x10^9/L 12/29/2014 5:32 AM [facility] Monocytes Absolute 1.05 0.26 - 1.07 x10^9/L 12/29/2014 5:32 AM [facility] Eosinophils Absolute 0.09 0 - 0.47 x10^9/L 12/29/2014 5:32 AM [facility] Basophils Absolute 0.02 0 - 0.08 x10^9/L 12/29/2014 5:32 AM [facility] Immature Granulocytes Absolute 0.04 0.00 - 0.06 x10^9/L 12/29/2014 5:32 AM [facility] Blood BLOOD SPECIMEN / Unknown 12/29/2014 4:09 AM BOILER HOUSE INSPECTOR 12/29/2014 5:22 AM BOILER HOUSE INSPECTOR Rashawn Herring MD LAB - HEMATOLOGY ORD ERABLES Performing Organization Address [facility] Co de Phone Number [facility] [id number] [place] [phone] * GLUCOSE - POINT OF CARE (12/29/2014 12:09 AM BOILER HOUSE INSPECTOR) Glucose WB/POC 78 70 - 106 mg/dL 12/29/2014 5:56 AM BOILER HOUSE INSPECTOR [facility] Blood BLOOD SPECIMEN / Unknown 12/29/2014 12:09 AM BOILER HOUSE INSPECTOR 12/29/2014 5:56 AM BOILER HOUSE INSPECTOR Rashawn Herring MD LAB - POINT OF CARE ORDERABLES Performing Organization Address [facility] de Phone Number [facility] [address] [place] [phone] * GLUCOSE - POINT OF CARE (12/28/2014 3:40 PM BOILER HOUSE INSPECTOR) Glucose WB/POC 79 70 - 106 mg/dL 12/28/2014 8:25 PM BOILER HOUSE INSPECTOR [facility] Blood BLOOD SPECIMEN / Unknown 12/28/2014 3:40 PM BOILER HOUSE INSPECTOR 12/28/2014 8:25 PM BOILER HOUSE INSPECTOR Rashawn Herring MD LAB - POINT OF CARE ORDERABLES Performing Organization Address [facility] de Phone Number [facility] [id number] [place] [phone] * GLUCOSE - POINT OF CARE (12/28/2014 10:55 AM BOILER HOUSE INSPECTOR) Glucose WB/POC 93 70 - 106 mg/dL 12/28/2014 1:43 PM BOILER HOUSE INSPECTOR [facility] Blood BLOOD SPECIMEN / Unknown 12/28/2014 10:55 AM BOILER HOUSE INSPECTOR 12/28/2014 1:43 PM BOILER HOUSE INSPECTOR Rashawn Herring MD LAB - POINT OF CARE ORDERABLES Performing Organization Address [facility] Co de Phone Number [facility] [id number] [place] [address] * FL FLUORO UPPER GI TRACT + KUB (12/28/2014 8:15 AM BOILER HOUSE INSPECTOR) Anatomical Region Laterality Modality Abdomen Radiographic Lindsay ging 12/28/2014 3:00 PM BOILER HOUSE INSPECTOR Impressions 12/28/2014 3:00 PM BOILER HOUSE INSPECTOR No evidence of leak or obstruction. Narrative 12/28/2014 3:00 PM BOILER HOUSE INSPECTOR Fluoroscopic upper GI with KUB Indication: Morbid [...] ORDERABL ES * TSH (12/28/2014 2:26 AM BOILER HOUSE INSPECTOR) Pathologist [facility] TSH 1.27 0.358 - 3.740 uIU/mL 12/28/2014 3:03 AM BOILER HOUSE INSPECTOR [facility] Blood BLOOD SPECIMEN / Unknown 12/28/2014 2:26 AM BOILER HOUSE INSPECTOR 12/28/2014 2:34 AM BOILER HOUSE INSPECTOR Cindy Jones PA-C LAB - CHEMISTRY PALMA GARRIDO [facility] [address] [place] [address] * HEMOGLOBIN A1C (12/28/2014 2:26 AM BOILER HOUSE INSPECTOR) Pathologist [facility] Hemoglobin A1c 5.5 4.2 - 6.3 % 12/28/2014 2:59 AM BOILER HOUSE INSPECTOR [facility] Estimated Average Glucose 111 mg/dL 12/28/2014 2:59 AM BOILER HOUSE INSPECTOR [facility] Whole Blood BLOOD SPECIMEN WITH EDTA / Unknown 12/28/2014 2:26 AM BOILER HOUSE INSPECTOR 12/28/2014 2:34 AM BOILER HOUSE INSPECTOR Cindy Jones PA-C LAB - CHEMISTRY PALMA GARRIDO Performing Organization Address [facility] de Phone Number [facility] [address] [place] [address] * (ABNORMAL) VITAMIN D 25-HYDROXY (12/28/2014 2:26 AM BOILER HOUSE INSPECTOR) Vitamin D, 25 Hydroxy 21.41(L) 30 - 100 ng/mL 12/28/2014 11:[address] [facility] Blood BLOOD SPECIMEN / Unknown 12/28/2014 2:26 AM BOILER HOUSE INSPECTOR 12/28/2014 2:34 AM BOILER HOUSE INSPECTOR Narrative [facility] - 12/28/2014 11:50 AM BOILER HOUSE INSPECTOR Vitamin D Status: ?Deficiency ? <20 ? ng/mL ?Insufficiency ?? 20-30 ??ng/mL ?Sufficiency ? 30-100 ng/mL ?Toxicity ? >100 ?ng/mL Rashawn Herring MD LAB - CHEMISTRY PALMA GARRIDO Performing Organization Address [facility] Co de Phone Number [facility] [address] [place] [address] * (ABNORMAL) BASIC METABOLIC PANEL (CALCIUM TOTAL) (12/28/2014 2:26 AM BOILER HOUSE INSPECTOR) Glucose 134(H) 74 - 106 mg/dL 12/28/2014 2:57 AM [facility] Sodium 135(L) 136 - 145 mmol/L 12/28/2014 2:57 AM [facility] Potassium 3.6 3.5 - 5.1 mmol/L 12/28/2014 2:57 AM [facility] Chloride 102 98 - 107 mmol/L 12/28/2014 2:57 AM [facility] CO2 27 22 - 31 mmol/L 12/28/2014 2:57 AM [facility] Calcium 8.1(L) 8.5 - 10.1 mg/dL 12/28/2014 2:57 AM [facility] Anion Gap 6 5 - 15 mmol/L 12/28/2014 2:57 AM [facility] BUN 11 7 - 21 mg/dL 12/28/2014 2:57 AM [facility] Creatinine 1.12 0.50 - 1.30 mg/dL 12/28/2014 2:57 AM [facility] eGFR by MDRD 53(L) >60 mL/min/1.7 3m2 12/28/2014 2:57 AM [facility] eGFR by MDRD >60 >60 mL/min/1.7 3m2 12/28/2014 2:57 AM [facility] Blood BLOOD SPECIMEN / Unknown 12/28/2014 2:26 AM BOILER HOUSE INSPECTOR 12/28/2014 2:34 AM [facility] Rashawn Herring MD LAB - CHEMISTRY PALMA GARRIDO [facility] Organization Address City/State/ZIP Co de Phone Number [facility] [address] [place] [address] * (ABNORMAL) CBC W AUTO DIFFERENTIAL (12/28/2014 2:26 AM BOILER HOUSE INSPECTOR) WBC 10.9(H) 4.4 - 10.7 x10^9/L 12/28/2014 2:40 AM [facility] RBC 4.23 3.80 - 5.20 x10^12/L 12/28/2014 2:40 AM [facility] Hemoglobin 13.0 12.0 - 15.6 gm/dL 12/28/2014 2:40 AM [facility] Hematocrit 38.3 35.9 - 45.5 % 12/28/2014 2:40 AM [facility] MCV 90.5 80.7 - 98.3 fl 12/28/2014 2:40 AM [facility] MCH 30.7 26.7 - 34.0 pg 12/28/2014 2:40 AM [facility] MCHC 33.9 30.8 - 35.9 gm/dL 12/28/2014 2:40 AM [facility] Platelet Count 243 153 - 416 x10^9/L 12/28/2014 2:40 AM [facility] RDW-CV 13.0 12.1 - 14.9 % 12/28/2014 2:40 AM [facility] MPV 10.8 9.4 - 12.9 fl 12/28/2014 2:40 AM [facility] Neutrophils % 80.9(H) 44.0 - 73.0 % 12/28/2014 2:40 AM [facility] Lymphocytes % 13.6(L) 20.0 - 43.0 % 12/28/2014 2:40 AM [facility] Monocytes % 5.0 5.0 - 13.0 % 12/28/2014 2:40 AM [facility] Eosinophils % 0.0 0.0 - 6.0 % 12/28/2014 2:40 AM [facility] Basophils % 0.1 0.0 - 2.0 % 12/28/2014 2:40 AM [facility] Immature Granulocytes 0.4 0 - 1 % 12/28/2014 2:40 AM [facility] Neutrophil Absolute 8.81(H) 2.01 - 7.14 x10^9/L 12/28/2014 2:40 AM [facility] Lymphocytes Absolute 1.48 1.07 - 3.94 x10^9/L 12/28/2014 2:40 AM [facility] Monocytes Absolute 0.54 0.26 - 1.07 x10^9/L 12/28/2014 2:40 AM [facility] Eosinophils Absolute 0.00 0 - 0.47 x10^9/L 12/28/2014 2:40 AM [facility] Basophils Absolute 0.01 0 - 0.08 x10^9/L 12/28/2014 2:40 AM [facility] Immature Granulocytes Absolute 0.04 0.00 - 0.06 x10^9/L 12/28/2014 2:40 AM [facility] Blood BLOOD SPECIMEN / Unknown 12/28/2014 2:26 AM BOILER HOUSE INSPECTOR 12/28/2014 2:34 AM BOILER HOUSE INSPECTOR Rashawn Herring MD LAB - HEMATOLOGY ORD ERABLES Performing Organization Address City/[facility]/ZIP Co de Phone Number [facility] [address] [place] [address] * (ABNORMAL) GLUCOSE - POINT OF CARE (12/27/2014 10:26 PM BOILER HOUSE INSPECTOR) Glucose WB/POC 133(H) 70 - 106 mg/dL 12/27/2014 10:31 PM BOILER HOUSE INSPECTOR [facility] Blood BLOOD SPECIMEN / Unknown 12/27/2014 10:26 PM BOILER HOUSE INSPECTOR 12/27/2014 10:31 PM BOILER HOUSE INSPECTOR Rashawn Herring MD LAB - POINT OF CARE ORDERABLES Performing Organization Address [facility] Co de Phone Number [facility] [id number] [place] [phone] * (ABNORMAL) GLUCOSE - POINT OF CARE (12/27/2014 9:27 AM BOILER HOUSE INSPECTOR) Glucose WB/POC 136(H) 70 - 106 mg/dL 12/27/2014 10:08 AM BOILER HOUSE INSPECTOR [facility] Blood BLOOD SPECIMEN / Unknown 12/27/2014 9:27 AM BOILER HOUSE INSPECTOR 12/27/2014 10:08 AM BOILER HOUSE INSPECTOR Rashawn Herring MD LAB - POINT OF CARE ORDERABLES Performing Organization Address [facility] Co de Phone Number [facility] [address] [place] [address] * HCG URINE QUALITATIVE - POINT OF CARE (IP) (12/27/2014 6:20 AM BOILER HOUSE INSPECTOR) HCG Qual Urine Negative Negative [facility] QC Verified Yes Yes [facility] POC T TESTING Urine specimen (specimen) URINE / Unknown 12/27/2014 6:20 AM BOILER HOUSE INSPECTOR Rashawn Herring MD LAB - POINT OF CARE ORDERABLES Performing Organization Address [facility] Co de Phone Number [facility] [address] [place], [place] [address] documented in this encounter Visit Diagnoses Diagnosis H/O laparoscopic partial gastrectomy- Primary Personal history of surgery to other organs Lumbar back pain Lumbago History of gastric ulcer Personal history of other diseases of digestive system DJD (degenerative joint disease) Osteoarthrosis, unspecified whether generalized or localized, unspecified site Fatty liver disease, nonalcoholic Other chronic nonalcoholic liver disease Elevated cholesterol Pure hypercholesterolemia Hypertension Unspecified essential hypertension Arthritis Arthropathy, unspecified, site unspecified Morbid obesity (HCC) Morbid obesity Morbid obesity (HCC) Morbid obesity Tachycardia Tachycardia, unspecified Morbid obesity (HCC) Morbid obesity documented in this encounter Administered Medications Inactive Administered Medications - up to 3 most recent administrations Medication Order MAR Action Action Date Dose Rate Site 0.9% NaCl injection PRN, Starting on Fri12/27/14 at 0954, Until Fri12/27/14 at 0956, Intra-op $ Given 12/27/2014 8:30 AM BOILER HOUSE INSPECTOR 40 mL Abdominal Tissue 0.9% nacl irrigation solution PRN, Starting on Fri12/27/14 at 0954, Until Fri12/27/14 at 0956, Intra-op $ Given 12/27/2014 9:00 AM BOILER HOUSE INSPECTOR 1,000 mL bupivacaine liposome (EXPAREL) 1.3 % injection PRN, Starting on Fri12/27/14 at 0830, Until Fri12/27/14 at 0956, Intra-op $ Given 12/27/2014 8:30 AM BOILER HOUSE INSPECTOR 266 mg Abdominal Tissue documented in this encounter Active and Recently Administered Medications Times are shown in BOILER HOUSE INSPECTOR. Scheduled Medication Order 12/27/2014 12/28/2014 12/29/2014 acetaminophen (TYLENOL) solution 500 mg(Linked Group 1) 500 mg, Oral, EVERY 4 HOURS, First dose on Fri12/27/14 at 1830, Until Discontinued, Use acetaminophen for mild pain or hydrocodone/acetamino phen for moderate pain every 4 hours scheduled., Post-op 1816 (See Alternative - Provider: Natalie Ignacio RN)2230 (Not Administered - Provider: Angelita Burgos RN - Reason: Refused-Patient) 0230 (Not Administered - Provider: Francia Rausch RN - Reason: Refused-Patient)0630 (Not Administered - Provider: Francia Rausch RN - Reason: Refused-Patient)1030 (Not Administered - Provider: Cayla Almendarez RN - Reason: Per Administration Instructions)1430 (Not Administered - Provider: Cayla Almendarez RN - Reason: Per Administration Instructions)1830 (Not Administered - Provider: Cayla Almendarez RN - Reason: Per Administration Instructions)2230 (Not Administered - Provider: Francia Rausch RN - Reason: Refused-Patient) 0230 (Not Administered - Provider: Francia Rausch RN - Reason: Refused-Patient)0630 (Not Administered - Provider: Francia Rausch RN - Reason: Refused-Patient)1030 (Not Administered - Provider: Cayla Almendarez RN - Reason: Per Administration Instructions) buPROPion SR 12hr (WELLBUTRIN-SR) tablet 150 mg (CANCELED) 150 mg, Oral, DAILY, First dose on Fri12/28/14 at 0900, Until Discontinued, Do not crush, chew, or cut in half. 1108 ($ Given - Provider: Cayla Almendarez RN) 0818 ($ Given - Provider: Cayla Almendarez RN) ceFAZolin (ANCEF) IVPB 3 g (CANCELED) 3 g, at 200 mL/hr, Intravenous, PRE-OP MULTIPLE, Starting on Fri12/27/14 at 0612, Until Fri12/27/14 at 1753, Administer 30 minutes prior to surgical incision. Repeat dose in 3 hours if surgical incision not closed., Pre-op 0749 ($ Given - Provider: Lemuel Paulson APRN-[employer] MACHINE OPERATOR) ceFAZolin (ANCEF) IVPB 3 g (COMPLETED) 3 g, at 200 mL/hr, Intravenous, EVERY 8 HOURS, 2 doses, First dose on Fri12/27/14 at 1800, Last dose on Fri12/28/14 at 0200, If patient weighs less than 120 kg. Use 2 grams of cefazolin (Ancef). Administer last dose within 24 hours of the close of surgical incision., Post-op 1821 ($ Given - Provider: Natalie Ignacio RN)1851 (Rx Stopped - Provider: Natalie Ignacio RN) 0201 ($ Given - Provider: Frnacia Rausch RN)0231 (Rx Stopped - Provider: Francia Rausch RN) dextrose 5 % 500 mL with M.V.I. (MVI adult) 10 mL infusion (CANCELED) 125 mL/hr, Intravenous, DAILY, First dose on Fri12/27/14 at 2000, Until Discontinued, To be run over 4 hours. Do not infuse at same time as other IV fluids., Post-op 2139 ($ Given - Provider: Francia Rausch RN) 1108 ($ Given - Provider: Cayla Almendarez, RN) 0817 ($ Given - Provider: Cayla Almendarez, RN) famotidine (PEPCID) injection 20 mg (COMPLETED) 20 mg, Intravenous, PRE-OP ONCE, 1 dose, On Fri12/27/14 at 0612, Give morning of surgery., Pre-op 0638 ($ Given - Provider: Comfort Wong RN) heparin injection 5,000 Units (COMPLETED) 5,000 Units, Subcutaneous, PRE-OP ONCE, 1 dose, On Fri12/27/14 at 0612, Pre-op 0638 ($ Given - Provider: Comfort Wong RN) heparin injection 5,000 Units (CANCELED) 5,000 Units, Subcutaneous, 2 TIMES DAILY, First dose on Fri12/27/14 at 2100, Until Discontinued, Post-op 2154 ($ Given - Provider: Francia Rausch RN) 0847 ($ Given - Provider: Cayla Almendarez, CHEY)2118 ($ Given - Provider: Francia Rausch RN) HYDROmorphone PF (DILAUDID) injection 1 mg (COMPLETED) 1 mg, Intravenous, ONCE, 1 dose, On Fri12/27/14 at 2015 2004 (Not Administered - Provider: Concepcion Biswas RN - Reason: See Comments - Comment: pt not requirring med now) 0647 ($ Given - Provider: Francia Rausch RN - Comment: not administered earlier) iohexol (OMNIPAQUE 350) contrast (CANCELED) Oral, CONTRAST ONCE, Starting on Fri12/28/14 at 0754, Until Fri12/29/14 at 1307 0822 ($ Given - Contrast - Provider: Eriberto Reese, RT(R)) ketorolac (TORADOL) injection 15 mg (COMPLETED) 15 mg, Intravenous, ONCE, 1 dose, On Fri12/28/14 at 1045 1117 ($ Given - Provider: Cayla Almendarez RN) labetalol (NORMODYNE; TRANDATE) tablet 100 mg (CANCELED) 100 mg, Oral, 3 TIMES DAILY, First dose on Fri12/28/14 at 0900, Until Discontinued, Hold SBP<110 1100 (Not Administered - Provider: Cayla Almendarez RN - Reason: Documented on duplicate row)1107 ($ Given - Provider: Cayla Almendarez RN)2100 (Not Administered - Provider: Francia Rausch RN - Reason: Patient Condition) 1100 (Due - Provider: Cayla Almendarez RN) lactated ringers iv bolus (COMPLETED) 500 mL, Administer over 120 Minutes, ONCE, 1 dose, On Fri12/28/14 at 0715 0847 ($ Given - Provider: Cayla Almendarez RN)1047 (Rx Stopped - Provider: Cayla Almendarez RN) lidocaine buffered 1 % injection (CANCELED) Infiltration, PRE-OP MULTIPLE, 3 doses, Starting on Fri12/27/14 at 0612, Until Fri12/27/14 at 1753, May be used (0.2 ml locally to anesthetize prior to insertion if patient has NKA to Lidocaine)., Pre-op 0638 ($ Given - Provider: Comfort Wong RN) methyldopa (ALDOMET) tablet 500 mg (CANCELED) 500 mg, Oral, 2 TIMES DAILY, First dose on Fri12/28/14 at 0900, Until Discontinued, Hold for SBP<110 1107 ($ Given - Provider: Cayla Almendarez RN)2100 (Not Administered - Provider: Francia Rausch RN - Reason: Patient Condition) 1100 (Due - Provider: Cayla Almendarez RN) metoclopramide (REGLAN) injection 10 mg (CANCELED) 10 mg, Intravenous, EVERY 6 HOURS, First dose on Fri12/27/14 at 1945, Until Discontinued 1921 ($ Given - Provider: Concepcion Biswas RN) 0158 ($ Given - Provider: Francia Rausch RN)0626 ($ Given - Provider: Francia Rausch, RN)1333 ($ Given - Provider: Cayla Almendarez RN)2120 ($ Given - Provider: Francia A Shalom, RN) 0328 ($ Given - Provider: Francia Rausch RN)0818 ($ Given - Provider: Cayla Almendarez, RN) midazolam (VERSED) injection 1 mg (CANCELED) 1 mg, Intravenous, POST-OP MULTIPLE, 2 doses, Starting on 12/27/14 at 1211, Until 12/27/14 at 1753, IV every 10 minutes X 2 doses for anxiety., PACU 1200 ($ Given - Provider: Yenni Estrada RN) ondansetron (disintegrating) (ZOFRAN ODT) tablet 4 mg (COMPLETED) 4 mg, Oral, PRE-OP ONCE, 1 dose, On e 12/27/14 at 0612, Pre-op 0637 ($ Given - Provider: Comfort Wong RN) ondansetron (ZOFRAN) injection 4 mg (COMPLETED) 4 mg, Intravenous, ONCE, 1 dose, On e 12/27/14 at 1645 1642 ($ Given - Provider: Bre Palmer RN) pantoprazole (PROTONIX) injection 40 mg (CANCELED) 40 mg, Intravenous, DAILY, First dose on 12/27/14 at 2030, Until Discontinued, Reconstitue with 10 ml of NS to concentration of 4 mg/ml and administer ordered dose over 2 minutes. 2136 ($ Given - Provider: Francia Rausch RN) 0847 ($ Given - Provider: Cayla Almendarez, RN) 0818 ($ Given - Provider: Cayla Almendarez, RN) sucralfate (CARAFATE) suspension 1 g 1 g, Oral, 4 TIMES DAILY - BEFORE MEALS AND AT BEDTIME, First dose on Carisa 12/29/14 at 1100, Until Discontinued, Shake well before using. 1100 (Due) Continuous Medication Order 12/27/2014 12/28/2014 12/29/2014 0.45% NaCl with potassium chloride 20meq infusion (CANCELED) at 150 mL/hr, Intravenous, CONTINUOUS, Starting on e 12/27/14 at 1800, Until Carisa 12/29/14 at 1307, Do not infuse at same time as other fluids., Post-op 1822 ($ New Bag/Syringe - Provider: Natalie Ignacio RN) 0633 ($ New Bag/Syringe - Provider: Francia Rausch RN)2124 ($ New Bag/Syringe - Provider: Francia Rausch RN) lactated ringers infusion (CANCELED) at 20 mL/hr, Intravenous, PRE-OP CONTINUOUS, Starting on e 12/27/14 at 0615, Until 12/27/14 at 1753, Pre-op 0638 ($ New Bag/Syringe - Provider: Comfort Wong RN)0855 ($ New Bag/Syringe - Provider: Lemuel Paulson APRN-BLISTER PACKAGING MACHINE OPERATOR)0915 (Anesthesia Volume Adjustment - Provider: Lemuel Paulson APRN-BLISTER PACKAGING MACHINE OPERATOR) PRN Medication Order 12/27/2014 12/28/2014 12/29/2014 0.9% NaCl injection (CANCELED) PRN, Starting on Fri12/27/14 at 0954, Until Fri12/27/14 at 0956, Intra-op 0830 ($ Given - Provider: Rashawn Herring MD) 0.9% nacl irrigation solution (CANCELED) PRN, Starting on Fri12/27/14 at 0954, Until 12/27/14 at 0956, Intra-op 0900 ($ Given - Provider: Rashawn Herring MD) bupivacaine liposome (EXPAREL) 1.3 % injection (CANCELED) PRN, Starting on Fri12/27/14 at 0830, Until 12/27/14 at 0956, Intra-op 0830 ($ Given - Provider: Rashawn Herring MD - Comment: mixed w/40 ml NS PF) fentaNYL (SUBLIMAZE) injection 50 mcg (COMPLETED) 50 mcg, Intravenous, EVERY 10 MIN PRN, Severe Pain, 4 doses, Starting on e 12/27/14 at 1111, Until 12/27/14 at 1147, Maximum total of 4 doses If patient reaches max total dose, please consult anesthesiologist prior to further administration of pain meds. Hold pain meds if there are signs of hypoventilation., PACU 1005 ($ Given - Provider: Yenni Estrada RN)1036 ($ Given - Provider: Yenni Estrada RN)1110 ($ Given - Provider: Meño Pastrana RN)1147 ($ Given - Provider: Meño Pastrana RN) HYDROmorphone PF (DILAUDID) injection 0.2 mg (COMPLETED) 0.2 mg, Intravenous, EVERY 15 MIN PRN, Moderate Pain, 5 doses, Starting on Fri12/27/14 at 1203, Until Tu12/27/14 at 1315, Maximum total of 5 doses If patient reaches max total dose, please consult anesthesiologist prior to further administration of pain meds. Hold pain meds if there are signs of hypoventilation., PACU 1216 ($ Given - Provider: Yenni Estrada RN)1231 ($ Given - Provider: Yenni Estrada RN)1249 ($ Given - Provider: Yenni Estrada, RN)1300 ($ Given - Provider: Yenni Estrada RN)1315 ($ Given - Provider: Yenni Estrada RN) HYDROmorphone PF (DILAUDID) injection 0.5 mg (CANCELED) 0.5 mg, Intravenous, EVERY 10 MIN PRN, Severe Pain, 4 doses, Starting on Fri12/27/14 at 1203, Until Fri12/27/14 at 1753, Maximum total of 4 doses If patient reaches max total dose, please consult anesthesiologist prior to further administration of pain meds. Hold pain meds if there are signs of hypoventilation., PACU 1410 ($ Given - Provider: Meño Pastrana RN)1510 ($ Given - Provider: Meño Pastrana, CHEY) oxyCODONE (ROXICODONE) oral solution 10 mg (CANCELED) 10 mg, Oral, EVERY 4 HOURS PRN, Moderate Pain, Starting on Fri12/28/14 at 1230, Until Carisa 12/29/14 at 1307 1335 ($ Given - Provider: Cayla Almendarez, CHEY)1727 ($ Given - Provider: Cayla Almendarez, CHEY) 0017 ($ Given - Provider: Francia Rausch, CHEY)0415 ($ Given - Provider: Francia Rausch, RN)0931 ($ Given - Provider: Cayla Almnedarez, RN) oxyCODONE (ROXICODONE) oral solution 5 mg 5 mg, Oral, EVERY 4 HOURS PRN, Moderate Pain, Starting on Fri12/27/14 at 1821, Until Fri12/28/14 at 1230 1846 ($ Given - Provider: Natalie Ignacio, RN)2319 ($ Given - Provider: Angelita Burgos, RN) 0447 ($ Given - Provider: Francia Rausch, CHEY)0802 ($ Given - Provider: Cayla Almendarez, CHEY) scopolamine (TRANSDERM-SCOP) 1.5 MG patch 1.5 mg (CANCELED) 1.5 mg, Administer over 72 Hours, EVERY 72 HOURS PRN, Nausea/Vomiting, Starting on Fri12/27/14 at 1902, Until Fri12/29/14 at 1307, Apply patch behind the ear, do not cut patch, only 1 patch should be worn at a time and remove old patch before applying new patch.This patch may contain metal and is not compatible with MRI. Notify radiology of patch location upon arrival to MRI. 1921 ($ Applied - Provider: Concepcion Biswas, CHEY) Linked Groups Order Group 1: acetaminophen (TYLENOL) solution 500 mgJump to med 500 mg, Oral, EVERY 4 HOURS, First dose on Fri12/27/14 at 1830, Until Discontinued, Use acetaminophen for mild pain or hydrocodone/acetaminophen for moderate pain every 4 hours scheduled., Post-op Or hydrocodone-acetaminophen 7.5-325 MG/15ML solution 15 mL (CANCELED) 15 mL, Oral, EVERY 4 HOURS, First dose on Fri12/27/14 at 1830, Until Discontinued, Use acetaminophen for mild pain or hydrocodone/acetaminophen for moderate pain every 4 hours scheduled., Post-op documented in this encounter
--- OUTSIDE RECORDS SUMMARY | 2024-11-15 03:19 | XMS_ITS | Encounter Summary ---
Author Organization [facility] Health Address [address] [facility] [address] [place] [address] Care Team Providers Care Cyber Security Administrator Name Role Phone Kelly Roberts RN Unavailable [phone] Reason for Visit * Reason Onset Date Comments Morbid Obesity 03/15/2019 Encounter Details Date Type Department Care Team (Late st Contact Info) Description 03/15/2019 Telephone [facility] [id number] [place] [id number] Aimee Peters Morbid Obesity Social History Tobacco Use Types Packs/Day Years [...] * Telephone Encounter - Aimee Peters - 03/19/2019 8:35 AM CDT Images from the original note were not included. Franchesca Fitzpatrick RN []Manual[]Template []Copied Pt called for f/u appt with Dr Herring. She states she had her us but does not want to do testing as prescribed by [facility] because the discomfort she has does not feel like an ulcer.Pt isadamant that she does not want to do further testing until she speak with DR Herring. [facility] informed of above information. [facility] states it is ok to give pt appt to speak with Dr Herring. ?? Pt called and f/u appt made. * Telephone Encounter - Aimee Peters - 03/15/2019 7:55 AM CDT Pt called and wants to know the results of her ultrasound and her next steps. documented in this encounter Plan of Treatment Not on file documented as of this encounter Visit Diagnoses Not on filedocumented in this encounter Care Teams Cyber Security Administrator Relationship Specialty Start Date End Date Kelly Roberts RN Bullet Lubricant Mixer 12/28/14 documented as of this encounter
--- OUTSIDE RECORDS SUMMARY | 2024-11-15 03:19 | XMS_ITS | Encounter Summary ---
Author Organization [facility] Health Address [address] [place] [address] Care Team Providers Care Remote Sensing Specialist Name Role Phone Unavailable Primary Care Provider Unavailabl e Encounter Details Date Type Department Care Team (Late st Contact Info) Description 05/17/2011 Orders Only [facility] [id number] [facility] [address] [place] [address] [place] [id number] [facility] [address] [place] [address] Right leg pain Social History Tobacco Use [...] Procedure Name Priority Date/Time Associated Diagnosis Comments XR LUMBAR SPINE 2 OR 3VW Routine 05/10/2011 Right leg pain documented in this encounter Results * XR LUMBAR SPINE 2 OR 3 VW (05/10/2011) Anatomical Region Laterality Modality Spine Other Sean Deleon MD DIAGNOSTIC IMAGING O RDERABLES documented in this encounter Visit Diagnoses Diagnosis Right leg pain Pain in limb documented in this encounter
--- OUTSIDE RECORDS SUMMARY | 2024-11-15 03:19 | XMS_ITS | Encounter Summary ---
Author Organization [facility] Address [address] [place] [address] Care Team Providers Care Master Automotive Technician Name Role Phone Kelly Roberts RN Unavailable [phone] Reason for Referral * Radiology Services (Routine) - Closed Specialty Diagnoses / Procedures Referred By Jesse t Referred To Contact Ultrasound Diagnoses Right upper quadrant abdominal pain Diarrhea, unspecified type Epigastric pain Procedures US ABDOMEN LIMITED Ct Collado APRN-CNP [id number] [facility] [address] [place] [address] Referral ID Status Reason Start Date Expiration Date Visits Re quested Visits Authorized [id number] Closed 03/31/2018 09/27/2018 1 1 Reason for Visit * Reason Comments Follow-up f/u Encounter Details Date Type Department Care Team (Late st Contact Info) Description 03/31/2018 1:15 PM CDT Office Visit [facility] [employer] [facility] [id number] [place] [address] [address] [place] [address] Ct Collado APRN-CNP [id number] [address] [facility] [address] [place] [address] Right upper quadrant abdominal pain (Primary Dx); Diarrhea, unspecified type; Epigastric pain; Abdominal cramping Social History Tobacco Use Types Packs/Day Years [...] Sign Reading Time Taken Comments Blood Pressure 143/90 03/31/2018 1:28 PM CDT Pulse 90 03/31/2018 1:28 PM CDT Temperature - - Respiratory Rate - - Oxygen Saturation - - Inhaled Oxygen Concentration - - Weight 100.2 kg (221 lb) 03/31/2018 1:28 PM CDT Height 182.9 cm (6') 03/31/2018 1:28 PM CDT Body Mass Index 29.97 03/31/2018 1:28 PM CDT documented in this encounter Functional [...] this encounter Patient Instructions * Patient Instructions* Ct Collado APRN-OCCUPATIONAL HEALTH NURSE SUPERVISOR - 03/31/2018 2:11 PM CDT POST OPERATIVE VISIT INSTRUCTIONS ANNUAL Dietary ?? Journaling helps keep you honest [...] can result in serious health problems. ?? You should be getting approximately 1 cup of food per meal. At least half of your meal should beprotein. You will notice that you can eat more soft foods (carbohydrates) than protein. Please be sure you are meeting your protein goals first before adding in many carbohydrates. Continue supplementing with liquid protein or protein bars to meet your protein goals. ?? Foods should be high in protein, sugar-free, no added sugar and low fat. ?? Meals should take a minimum of 30 minutes to consume. ?? 3 meals per day--NO GRAZING. ?? Do not graze on cheese, peanut butter and nuts to meet your protein goals. ?? Drink liquid protein between meals for hunger. Protein bars are acceptable, however, make sure they are not high in carbohydrates. For a list of acceptable supplements, please see the neurology professor. For band patients, protein bars are recommended. Vitamins ?? Only use Bariatric specific vitamins. A current list can be provided to you at your request. Exercise ?? Would you like to maintain your weight loss? EXERCISE! ?? Expect weight plateaus, more so now than ever. You can't lose 1-2 pounds per week for the rest of your life. Weight loss can be expected up to 2 years. After 2 years, if you want to continue to lose weight it will take more diligence. As you cardiovasuclar health improves, cross training will help you through any plateaus you may incur. Behavior Modification ?? Visit the list of behaviors that helped contribute to your morbid obesity. Assess yourself or visit with a friend on a regular basis to assure that the bad habits are not returning to your daily lives. ?? Continue weighing weekly. ?? Do you realize how your previous behaviors affected your weight? They can still return. ?? Watch out for cross addiction--trading one addictive behavior (eating and food) for another addictive behavior (alcohol, shopping, gambling). ?? Support groups have their place. Utilize the support that is available to you. General Medical ?? Don't skip appointments! Patients that do not follow up generally have less weight loss and morecomplications and more difficulty with weight maintenance. ?? Labs are now done yearly. Contact our office 3 weeks prior to your appointment if you wish to dothem at home. ?? Weight regain happens! Any more than 10% is not normal. Don't let yourself gain 25 pounds beforecoming in to see us. You do not have to wait an entire year to make an appointment. ?? Vomiting is not normal. If you cannot attribute vomiting to something that you have done, pleasenotify our office. ?? For females, control is strongly recommended for the first 18 months after surgery. Ulcer Prevention ?? Ulcer medications are recommended, not required now. ?? DO NOT SMOKE. If your return to smoking, notify our office immediately. Smoking causes ulcers! Blood Pressure Medication ?? If you consistently find yourself getting light headed when you go from a laying positions to a sitting position OR from a sitting position to a standing position, contact your primary care physician for a medication adjustment. Psychiatric Medication ?? If you do not feel well controlled on your current medication regimen, please call your primary care physician or psychiatrist. ?? Depression after weight loss surgery is not uncommon even if you have never had problems with itin the past. If you are experiencing problems, please contact someone for assistance. Follow-up ?? For a Val-en-Y divided gastric bypass/Adjustable gastric band patients, vertical sleeve gastrectomy or revision, your next appointment will be in 1 year. Please have your labs drawn 2 weeks priorto your annual appointment. documented in this encounter Progress Notes * Ct Collado APRN-CNP - 03/31/2018 1:55 PM CDT Annual Bariatric Surgery Follow up Date of Surgery: 12/27/2014 Laparoscopic sleeve gastrectomy (Nima) Initial weight: 275 Today's weight: 221 Total weight loss: 54 IBW: 190 EBW: 85 % of EBW Loss: 64% Finesse Rina Ramirez is here today for their annual postoperative follow up visit. She has had weight gain. She is up about 17 lbs from last year and up about 33 lbs from her lowest weight. She has been unable to exercise as much after a shoulder sugrery last year. She is having mid epigastric abdominal pain for the last 4-5 months. Her symptoms are worsening andbecoming more frequent. She reports that acidic juice or foods make the pain worse. She also reports increased pain with eating dense/solid foods. She is grazing more due to the pain because taking afew bites of food frequently does not make the pain worse. She describes the pain as burning and pressure. She has been Sleeping elevated on pillows due to the epigastric pain. She is getting in all of her protein and fluids. She is taking her multivitamin , but not the calcium supplement She is not having N/V She has had severe diarrhea for the last 3 weeks. She just returned from [place] 3 weeks ago. Diarrhea started 2 days before coming home and has not stopped. She has associated RUQ abdominal pain intermittently. She has associated lower abdominal cramping/pain. She has increased bloating and gas. Laying on her left side makes this feel better. She has tried Imodium twice, but continued to have thebloating and gas. She has had 2 incontinent episodes with little control over her bowel movements. She reports that she drink bottled water and stayed within the resort for food. Lynne colored stool at times Portions are bigger with certain foods such as pizza Review of systems as above, the rest of the systems were negative. BP 143/90 Pulse 90 Ht 6' (1.829 m) Wt 221 lb (100.2 kg) BMI 29.97 kg/m2 Current Outpatient Prescriptions Medication ??? omeprazole (PRILOSEC) 20 MG capsule ??? vortioxetine (TRINTELLIX) 10 MG tablet ??? carisoprodol (SOMA) 350 MG tablet ??? buPROPion SR 12hr (WELLBUTRIN-SR) 150 MG tablet ??? ALBUTEROL IN ??? lansoprazole (PREVACID) 30 MG capsule ??? hydrocortisone butyrate 0.1 % cream - ketoconazole 2% cream 50:50 CREA No current facility-administered medications for this visit. Past Medical History: Diagnosis Date ??? Arthritis ??? Asthma ??? Chest pain cath 06/2013 pt states ok ??? DJD (degenerative joint disease) ??? Elevated cholesterol not on Rx ??? Fatty liver disease, nonalcoholic ??? History of gastric ulcer ??? Hypertension ??? Migraine ??? PCOS (polycystic ovarian syndrome) Review of Systems: HEENT: Normal Cardiovascular: Normal Respiratory: Normal Gastrointestinal: Diarrhea, epigastric pain, RUQ abdominal pain Genitourinary: Normal Musculoskeletal: Normal Skin / Breast / Axillae: Normal Endocrine: Normal Allergic / Immuno: Normal Neuro / Psych: Normal Has the patient been readmitted to the hospital since the last follow up ? Had shoulder surgery last year Has the patient had any post bariatric [...] x4, no erythema Assessment / Plan: S/P 12/27/2014 Laparoscopic sleeve gastrectomy (Nima): Morbid Obesity: Discussed portions, protein, exercise, keeping a food journal, monitoring carbs Diarhea/RUQ abdominal pain/epigastric pain: Will check stool studies since patient [place] the [place]. Will check RUQ US to assess gallbladder. If RUQ US negative-will check HIDA. Patient may need CT abd/pelvis and EGD if gallbladder workup negative. Patient to continue Prilosec BID and will add Carafate QID HTN: off medications Diet: Continue with 60 gms of protein, 64 oz fluid daily Eat slowly, taking 30 minutes to finish a meal Drink liquid protein between meals for hunger Follow dietary restrictions Weigh weekly,weight regain can happen. Anything more than 10% is not normal. Call the office for anappointment. Support Groups: Encouraged to attend Vitamins: Continue with bariatric multivitamin, Ca with D, B12. Exercise: No restrictions, This is required to maintain weight loss. General medical: continue to follow up with your PCP for medication adjustments if needed. Labs: Will be checked annually. Will have labs faxed to the office Follow up: In 1 year with routine labs or PRN. Total Time of visit: 15 minutes documented in this encounter Plan of Treatment Scheduled Orders Name Type Priority Associated Diagnoses Orde r Schedule CLOSTRIDIUM DIFFICILE BY PCR Microbiology Routine Diarrhea, unspecified type Abdominal cramping Ordered: 03/31/2018 O+P PANEL Microbiology Routine Diarrhea, unspecified type Abdominal cramping Ordered: 03/31/2018 documented as of this encounter Results * US ABDOMEN LIMITED (04/02/2018 8:49 AM CDT) Anatomical Region Laterality Modality Abdomen Ultrasound 04/02/2018 10:1 7 AM CDT Impressions 04/02/2018 10:18 AM CDT Cholelithiasis with positive Livingston sign which can be seen with acute cholecystitis Diffuse fatty infiltration of the liver Narrative 04/02/2018 10:18 AM CDT Ultrasound Abdomen Limited Indication: Right upper quadrant pain Technique: Henao scale and color images of the abdomen Findings: There is mild diffuse increased echogenicity of liver without focal mass. ??Gallstones are seen within the gallbladder without wall thickening or pericholecystic fluid. The Livingston's sign is positive. The visualized pancreas and common bile duct are normal. ??The right kidney is normal. Procedure Note Meri Reyez MD - 04/02/2018 Ultrasound Abdomen Limited Indication: Right upper quadrant pain Technique: Henao scale and color images of the abdomen Findings: There is mild diffuse increased echogenicity of liver without focal mass. Gallstones are seen within the gallbladder without wall thickening or pericholecystic fluid. The Livingston's sign is positive. The visualized pancreas and common bile duct are normal. The right kidney is normal. IMPRESSION Cholelithiasis with positive Livingston sign which can be seen with acute cholecystitis Diffuse fatty infiltration of the liver Ct Collado IMMIGRATION LAW SPECIALIST-OCCUPATIONAL HEALTH NURSE SUPERVISOR US ORDERA BLES documented in this encounter Visit Diagnoses Diagnosis Right upper quadrant abdominal pain- Primary Abdominal pain, right upper quadrant Diarrhea, unspecified type Epigastric pain Abdominal pain, epigastric Abdominal cramping Abdominal pain, unspecified site Right upper quadrant abdominal pain Abdominal pain, right upper quadrant Diarrhea, unspecified type Epigastric pain Abdominal pain, epigastric documented in this encounter Care Teams Master Automotive Technician Relationship Specialty Start Date End Date Kelly Roberts, RN Internet Architect 12/28/14 documented as of this encounter
--- OUTSIDE RECORDS SUMMARY | 2024-11-15 03:19 | XMS_ITS | Encounter Summary ---
Author Organization [facility] Address [address] [facility] [place] [address] Care Team Providers Care Biology Department Chair Name Role Phone Kelly Roberts RN Unavailable [phone] Reason for Visit * Reason Onset Date Comments Ultrasound 03/31/2018 Encounter Details Date Type Department Care Team (Late st Contact Info) Description 03/31/2018 Telephone [facility] [address] [facility] [address] [place] [address] [place] [address] [facility] [address] [place] [address] Ultrasound Social History Tobacco Use Types Packs/Day Years [...] encounter Miscellaneous Notes * Telephone Encounter - Vidhi Perez MA - 03/31/2018 3:12 PM CDT Patient scheduled for Ultrasound abdomen limited on 04/02/18 at 8:30 am with an 8:10 am arrival [facility]. Patient is to be NPO after midnight the night before. Patient aware. documented in this encounter Plan of Treatment Not on file documented as of this encounter Visit Diagnoses Not on filedocumented in this encounter Care Teams Biology Department Chair Relationship Specialty Start Date End Date Kelly Roberts, RN Sand Hauler 12/28/14 documented as of this encounter
--- OUTSIDE RECORDS SUMMARY | 2024-11-15 03:19 | XMS_ITS | Encounter Summary ---
Author Organization [facility] Address [address] [facility] [place] [place] [address] Care Team Providers Care Litigation Legal Secretary Name Role Phone Unavailable Primary Care Provider Unavailabl e Encounter Details Date Type Department Care Team (Latest Contact Info) Description 07/27/2014 8:12 AM CDT - 07/27/2014 11:59 PM CDT Hospital Encounter [facility] [address] [place] [address] [place] [address] [facility] [address] [place] [address] Discharge Disposition: Home or Self [...] - Weight 124.3 kg (274 lb) 07/27/2014 10:00 AM CDT Height 182.9 cm (6') 07/27/2014 10:00 AM CDT Body Mass Index 37.16 07/27/2014 10:00 AM CDT documented in this encounter Medications at [...] this encounter Progress Notes * Ct Dumont, RD/LD - 07/27/2014 10:40 AM CDT Pre-Surgical Bariatric Session 1 Date: 07/27/2014 Patient: Finesse Ramirez Date of : 1970 (44 y.o.) PCP Physician: Laureano Lantigua Referring Physician: Rashawn Herring MD Assessment: Pt planning Sleeve Gastrectomy. She notes her father had gastric bypass surgery and hercoworkers. She notes having significant pain due to a past spinal surgery and difficulty exercising. Finesse notes she eats rapidly and stress eats. She likes to make fruit smoothies(fresh fruits, Maltese yogurt and coconut milk) in her Ninja varnish blender for breakfast. Sometimes she has dry cereal(Honey Nut Cheerios or Bishop Grahams) in large portions(2 cups) with skim milk. She snacks mindlessly at her desk at work on Cheese-its or hummus and carrots. Her lunch could be leftovers or a [employer] double burger. She snacks in the afternoon on Maltese yogurt. Her dinner may be grilled chicken, broccoli and mashed potatoes or corn. Finesse likes ice cream after dinner. 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 Finesse has returned to drinking soda: two 12-ounce cans or a 32 ounce cup daily. Encouraged her to eliminate carbonation. She only has 1-2 cups of coffee per week. Finesse may drink alcohol twice a month. Finesse does not smoke. She has no current exercise, but owns an elliptical and recumbent bicycle. Finesse's stated weight goal is to reach 175-185 lbs. Secondary Diagnoses/Co-morbidities: Hypertension;Dyslipidemia;Obesity;Other (comments) (NAFLD, arthritis, spinal fusion) Diets patient has tried: Weight Watchers, Nutrisystem and Other: HCG, Atkins, Slim Fast Exercise regimens patient has participated in: Gym/Club Membership(last year/unused) and elliptical, recumbent bicycle Patient currently participates in exercise: 0 times/week Pertinent Labs: reviewed Pertinent Medications: Aldomet, Norvasc Clinical Data: Height: 6' (182.9 cm) Weight: 274 lb (124.286 kg) BMI (Calculated): 37.24 Diagnostic Statement: Obesity related to excess energy intake/decreased physical activity AEB elevated BMI. Interventions: Patient was instructed on portion sizes using food models, post- surgery diet progression, post-surgery protein requirements/protein supplements, adequate hydration, proper eating habits, importance of routine activity, no alcohol/carbonation, and attending support group and previous food records, goals, and behavior modification tips reviewed. Materials provided: Bariatric Nutrition Guide, Food and Activity Guide, Support Group Schedule, High Protein Liquid Supplement Handout, Fitness Center Membership Information Monitor: Pt encouraged to call RD with questions and/or concerns. Goals: Behavior modification and gradual weight loss. Eat three meals per day. Switch to sugar free, non-carbonated beverages and consume 64 ounces of fluid per day. Increase physical activity per physician approval. Keep food and activity journal. Pt verbalizes understanding of the expectation of gradual weight loss or weight maintenance prior to surgery. Evaluation of Overall Compliance Potential: Patient would benefit from additional nutrition counseling to complete her education. Nutritional Review ?? Cleared for surgical consult ___ ?? Cleared for surgical consult but additional RD visit(s) required _x__ ?? Not cleared for surgical consult ___ ?? Bariatric Case Conference review required ___ Session Information Session date: 07/27/2014 Session total minutes: 60 minutes Next visit: to be scheduled Ct Dumont RD/VINNY documented in this encounter Plan of Treatment Not on file documented as of this encounter Visit Diagnoses Not on filedocumented in this encounter
--- OUTSIDE RECORDS SUMMARY | 2024-11-15 03:19 | XMS_ITS | Encounter Summary ---
Author Organization [facility] Address [address] [place] [address] Care Team Providers Care Client Services Specialist Name Role Phone Unavailable Primary Care Provider Unavailabl e Reason for Visit * Reason Comments Post-Op Encounter Details Date Type Department Care Team (Late st Contact Info) Description 02/26/2011 10:45 AM CDT Office Visit [facility]sc[facility] [id number] [place] [id number] [place] [id number] [address] Lumbago with sciatica (Primary Dx); Spondylolisthesis; DDD (degenerative disc disease), lumbar; Lumbar spinal stenosis Social History Tobacco Use Types Packs/Day Years [...] Progress Notes * Sean Deleon MD - 02/26/2011 11:27 AM CDT Mrs. Finesse Bolivar is approximately 1.5 months s/p L5-S1 MIS decompression, TLIF, open reductionof spondylolisthesis, and IPSF and now presents for further routine postoperative care. Since our last visit, she reports that things have been gradually and steadily improving since our last visit. This last week has been a bit rough for her in regards to her back pain, but today has been a really good day . She did start a course of physical therapy following our last visit, and she feels thatthis treatment and exercise has been helping a lot. Her level of back and leg pain has fluctuated, but has diminished substantially since our last visit. Her back pain is actually located in the right hip/buttock region with a milder degree of pain at her incision sites, and this pain is exacerbated with coughing and sneezing. She still has frequent popping in the back, although this has not beenassociated with any pain. She still has some intermittent pain and tingling in the right thigh, butthis has been gradually improving and she does not have any pain in the RLE today. She has not had any pain or tingling in the LLE-- this remains completely resolved following surgery. She has been taking about 3 Percocet a day, and this keeps her pain under good control. Overall, she is pleased with her ongoing postoperative improvements and in the direction her symptoms are headed. In addition to her recovering back problems, she reports having some difficulty with left shoulder and neck pain recently. She reports a chronic history of left shoulder problems for which she has undergone several shoulder surgeries. In addition these ongoing left shoulder and neck pain symptoms, she has experienced some pain and tingling extending down the left arm in the past. She had discussed these symptoms with her orthopedic surgeon, Dr. Elaine, and he thought that she might be suffering from cervical radiculopathy. He ordered an EMG/NCV of the left arm for evaluation, and this apparently demonstrated evidence of carpal tunnel syndrome, although this would certainly not explain herleft shoulder or arm pain. Dr. Elaine wanted Mrs. Sandoval to see his neurosurgeon for furtherevaluation, but Mrs. Sandoval declined and wanted to discuss these issues with me. She describes having a recent episode of severe left shoulder pain with pain radiating up the left side of the neckand also with associated headache. Her therapist recommended that she put some tennis balls in a sock and lie down with these under her left shoulder . After doing this, Mrs. Sandoval's pain improved, and she seems to be reasonably comfortable in the left shoulder and neck at this time. I had previously reviewed her follow-up MRI of the lumbar spine dated 02/01/2011, and this demonstrated postoperative changes of instrumented interbody and posterior spinal fusion at the L5-S1 level. The hardware placement is stable and appropriate, and no residual stenosis or disc herniation is noted at the operative level. There is a fluid collection dorsal to the interbody implant which extendsinto the ventral aspect of the spinal canal and abuts the thecal sac, but no compression of the thecal sac or nerve roots is noted. No residual spondylolisthesis is noted at this level. The remainderof the spine is unremarkable. No fractures or subluxations are noted. I spoke with Mrs. Nyasia Macias regarding these results a few days after the study was completed, and reassured her there were no significant unexpected abnormalities on this study. On exam, her lumbar incisions are well-healed. There is no erythema, fluctuance, drainage, or tenderness at the incision site. Motor examination reveals normal strength and tone throughout. Sensory exam reveals mildly diminished sensation to light touch over the left anterior thigh, otherwise sensation is grossly intact to light touch elsewhere. Reflexes are 2+ and symmetric throughout. Toes are downgoing and straight leg-raise is negative bilaterally. Dias's signs are absent. Gait and station are normal. Mrs. Sandoval has made good improvements in her back and RLE pain symptoms since our last visit, and her activity level appears to be steadily improving, particularly with her physical therapy treatments. I encouraged her to remain physically active and continue gradually advancing her activity astolerated. She will be continue her physical therapy and home exercise regimens, and I cleared her to lift up to 30# as tolerated at this time. She is interested in returning to work on an initial part-time basis, and I think that this is reasonable at this time. My office provided her a work release note for this, and she will advance her hours as tolerated. I provided her a script for Percocet,and she will continue taking Soma prn and neurotin for now.I will plan to see her back for further follow-up in two months' time. In regards to her neck, left shoulder, and left arm symptoms, these appear to be under reasonable control with conservative measures at this time, and I recommended thatshe focus on recovery from her back surgery for now and defer further work up of these other symptoms to a future date. I will further discuss these issues with her at our next visit. We may considerobtaining an MRI of the cervical spine for further evaluation at that time. documented in this encounter Plan of Treatment Not on file documented as of this encounter Visit Diagnoses Diagnosis Lumbago with sciatica- Primary Sciatica Spondylolisthesis Congenital spondylolisthesis DDD (degenerative disc disease), lumbar Degeneration of lumbar or lumbosacral intervertebral disc Lumbar spinal stenosis Spinal stenosis, lumbar region, without neurogenic claudication documented in this encounter
--- OUTSIDE RECORDS SUMMARY | 2024-11-15 03:19 | XMS_ITS | Encounter Summary ---
Author Organization [facility] Address [address] [place] [address] Care Team Providers Care Choke Setter Name Role Phone Kelly Roberts RN Unavailable [phone] Reason for Visit * Reason Onset Date Comments Surgery Scheduling 04/03/2018 Encounter Details Date Type Department Care Team (Late st Contact Info) Description 04/03/[address] [facility] Management Services [id number] [facility], [facility] [address] [place] [address] Aneudy Sanford MD [address] [facility] [facility] [address] [place], [place] [id number] Surgery Scheduling Social History Tobacco Use Types [...] Telephone Encounter - Vidhi Perez MA - 04/03/2018 9:57 AM CDT Left detailed message advising patient she has been scheduled for surgery (Lap Radha with intraoperative egd) on 04/06/18 at 8 am with a 6 am arrival here at [facility]. Patient was advised this would be emailed to her via [employer] and [employer]. documented in this encounter Plan of Treatment Not on file documented as of this encounter Visit Diagnoses Not on filedocumented in this encounter Care Teams Choke Setter Relationship Specialty Start Date End Date Kelly Roberts, RN Salesperson Jewelry 12/28/14 documented as of this encounter
--- OUTSIDE RECORDS SUMMARY | 2024-11-15 03:19 | XMS_ITS | Encounter Summary ---
Author Organization [facility] Address [address] [facility] [place] [address] Care Team Providers Care Towel Weaver Name Role Phone Unavailable Primary Care Provider Unavailabl e Reason for Referral * Treatment Specialty Diagnoses / Procedures Referred By Jesse [place] [id number] [address] [place] [id number] Referral ID Status Reason Start Date Expiration Date V isits Requested Visits Authorized Specialty Services Required Reason for Visit * Reason Onset Date Comments Pain 04/12/2011 Encounter Details Date Type Department Care Team (Late st Contact Info) Description 04/12/2011 Telephone [facility] Neurosciences [address] [place] [id number] [place] [id number] [address] [place] [address] Pain Social History Tobacco Use Types Packs/Day [...] Telephone Encounter - Criss Baltazar LPN - 04/12/2011 2:34 PM CDT Patient called with multi complaints about back pain,leg weakness, stabbing pain with rolling over and so forth. Said her Fiance' has to help her to bed sometimes the pain is so severe.She started pain mgmt but they will not prescribe pain medication until out of post op period. She is only getting injections until then. Has gone to physical therapy and wants to continue this. I will fax orders to them.She also would like a script called in and said the Percocet 5/325 we called in last time isn't helping even when she takes 2 tabs. documented in this encounter Plan of Treatment Scheduled Referrals Name Type Priority Associated Diagnoses Orde r Schedule AMB REFERRAL TO PHYSICAL THERAPY Outpatient Referral Routine Back pain Ordered: 04/12/2011 documented as of this encounter Visit Diagnoses Diagnosis Back pain- Primary Backache, unspecified documented in this encounter
--- OUTSIDE RECORDS SUMMARY | 2024-11-15 03:19 | XMS_ITS | Encounter Summary ---
Author Organization [facility] Address [address] [place] [address] Care Team Providers Care Magazine Worker Name Role Phone Kelly Roberts RN Unavailable [phone] Reason for Visit * Auth/Cert Specialty Diagnoses / Procedures Referred By Jesse t Referred To Contact Procedures LAPAROSCOPIC CHOLECYSTECTOMY Referral ID Status Reason Start Date Expiration Date Visits Re quested Visits Authorized [id number] 1 1 Encounter Details Date Type Department Care Team (Late st Contact Info) Description 04/06/2018 8:58 AM CDT Anesthesia Event [facility] - Perioperative Surgery [address] [place], [place] [id number] [place] [address] [place] [address] Leroy Alejo DO [address] [place] [address] Anesthesia Record Procedure Summary Procedure Name Responsible Anesthesiologist Anesthesia Start Time Anesthesia Stop Time LAPAROSCOPIC CHOLECYSTECTOMY UPPER ENDOSCOPY (Abdomen) Harini Phelan DO 04/06/18 0858 04/06/18 1034 Events Date Time Event Comment 04/06/2018 0759 0858 An Start 0900 An Start Data 0900 PT Reassessment Pt informed RN and CASEWORK SUPERVISOR that she is blind in her right eye on the way back to the OR 0905 An Induction 0907 An Intubation 0910 Quick Note No OG PSR PSHx 0933 Timeout Anesthesia part icipated in timeout at the time documented in the record by nursing. 1013 An Emergence 1024 Extubation With pt followi ng commands 1026 Electnc Sig 1026 an stop data 1026 ANPTO2 1034 An Stop Meds Name Total midazolam 2 mg/2mL injection 2 mg fentaNYL 100 mcg/2mL injection 200 mcg lidocaine 2% (PF) injection (20 mg/mL) 5 0 mg propofol 200 mg/20mL injection 200 mg succinylcholine 200 mg/10mL injection 10 0 mg rocuronium 50 mg/5mL injection 50 mg ondansetron 4 mg/2mL injection 8 mg acetaminophen (OFIRMEV) injection 1,000 mg dexamethasone 4 mg/mL injection 8 mg diphenhydrAMINE 50 mg/mL injection 25 mg ceFAZolin (ANCEF) syringe 2,000 mg 2 g sugammadex 200 mg/2mL injection 200 mg lactated ringers infusion 800 mL * Agents Name Exp. Sevoflurane O2 Air Insp. Sevoflurane * Blood No blood administrations on file. Lines, Drains, and Airways Type Details Placement Removal Procedural Site (Incision) 04/06/18; Abdomen; Laparoscopic; 04/06/18; 1856 04/06/18 0000 by Etelvina Dunn RN 04/06/18 1856 by Generic, Auto Release Peripheral IV Date: 04/06/18; Time : 732; Orientation: Right; Placed By: Xenia GUERRIER; Tolerance: Well 04/06/18 0733 by Gin Burgos RN 04/06/18 1159 by Gin Burgos RN ETT Date: 04/06/18; Time : 937; Placed By: LICO Martinez; Vent: mask not attempted; Induction: Rapid Sequence, Cricoid pressure; Blade Type: Jeaneth; Blade Size: 3; Laryngoscopy View: Grade 1 (full cords); Intubation Adjuncts: Stylet; Tube: Endotracheal Tube; Placement: Oral; Tube Type: Cuffed-inflated; Tube Size(FR): 7 FR; Depth of Insertion: 21 CM; Measured From: lips; Attempts: 1; Cuff Infated: Air; Verified By: Direct visualization, Bilateral breath sounds, Chest Auscultation, CO2 Monitor 04/06/18 0938 by Cordell Grimm APRN-CRNA 04/06/18 1026 by Cordell Grimm APRN-CRNA documented in this encounter Social History Tobacco [...] as of this encounter Progress Notes * Cordell Grimm APRN-CRNA - 04/06/2018 10:34 AM CDT ANESTHESIA POSTOP EVALUATION NOTE Procedure: LAPAROSCOPIC CHOLECYSTECTOMY UPPER ENDOSCOPY (Abdomen) Finesse Ramirez is a 48 y.o. female Patient Vitals for the past 6 hrs: BP Temp Pulse Resp SpO2 SP02 Frequency O2 L/M O2 DEVICE Pain Scale/Observation Pain Rating Score #1Pain Location Pain Quality Aggravating Factors Relieved By Functional Goal # Sedation Level 04/06/18 1029 156/81 98.7 ??F (37.1 ??C) 87 20 99 % Continuous 10 Mask - Simple Resting with eyes closed - - - - - - - 04/06/18 0734 153/88 - 77 17 95 % Spot Check - Room Air N 2 Back;Abdomen Aching Activity Medications;Rest 5 1-Awake and alert 04/06/18 0732 - 97.7 ??F (36.5 ??C) - - - - - - - - - - - - - - Anesthesia Type: general * No Diagnosis Codes entered * Postop Diagnosis: See Surgeon Note Mental Status: awake Neuro Status: No numbess, tingling or visual disturbances Respiratory Function: natural Cardiac Function: stable Postop Pain: acceptable to the patient Postop Hydration: adequate Postop Nausea: none Patient Disposition: Follow Up Needed documented in this encounter Consult Notes * Cordell Grimm, WINDSCREEN FITTER-CASEWORK SUPERVISOR - 04/06/2018 8:00 AM CDT Images from the original note were not included. Pre-anesthesia Evaluation Procedure(s): LAPAROSCOPIC VERTICAL SLEEVE GASTRECTOMY Vital Signs: Temp: 97.7 ??F (36.5 ??C) (04/06 732) Pulse: 77 (04/06 734) Resp: 17 (04/06 734) BP: 153/88 (04/06 734) SpO2: 95 % (04/06 734) BMI: Estimated body mass index is 29.7 kg/(m^2) as calculated from the following: Height as of this encounter: 1.829 m (6'). Weight as of this encounter: 99.3 kg (219 lb). History: Past Medical History: Diagnosis Date ??? Arthritis ??? Asthma ??? Chest pain cath 06/2013 pt states ok ??? DJD (degenerative joint disease) ??? Elevated cholesterol not on Rx ??? Fatty liver disease, nonalcoholic ??? History of gastric ulcer ??? Hypertension resolved with gastric sleeve 2015 ??? Migraine ??? Motion sickness ??? PCOS (polycystic ovarian syndrome) ??? Pure hypercholesterolemia Past Surgical History: Procedure Laterality Date ??? ACL RECONSTRUCTION 2008 Right ??? CARPAL TUNNEL SURGERY 1992 Bilateral ??? Gastrectomy 12/27/2014 LAPAROSCOPIC VERTICAL SLEEVE GASTRECTOMY ??? Hammer Toe Repair 2000 Left foot w/ bunionectomy ??? LUMBAR SPINE FUSION 01/17/2011 TLIF L5-S1 MINIMALLY INVASIVE ??? OTHER SURGERY 2004 6 EYE SURGERIES ??? OTHER SURGERY 2008 Left ANKLE reconstruction ??? OTHER SURGERY mortons neuroma removed right and left foot ??? Rotator Cuff Repair 2008 LEFT ??? Rotator Cuff Repair Left 2017 reports that she has never smoked. She has never used smokeless tobacco. She reports that she drinks alcohol. She reports that she does not use illicit drugs. Allergies: is allergic to morphine; erythromycin; hydrocodone; and neurontin [gabapentin]. Medications: Prescriptions Prior to Admission Medication Sig Dispense Refill ??? albuterol HFA (PROVENTIL;VENTOLIN;PROAIR) 108 (90 BASE) MCG/ACT inhaler 4 times daily as needed ??? vortioxetine (TRINTELLIX) 10 MG tablet Take 10 mg by mouth once daily ??? omeprazole (PRILOSEC) 20 MG capsule Take 1 capsule by mouth 2 times daily,before breakfast and supper 30 capsule 5 ??? sucralfate (CARAFATE) 1 GM/10ML suspension Take 10 mL by mouth 4 times daily 1200 mL 0 ??? carisoprodol (SOMA) 350 MG tablet Take 1 Tab by mouth 3 times daily as needed. 80 Tab 0 ??? buPROPion SR 12hr (WELLBUTRIN-SR) 150 MG tablet Take 150 mg by mouth once daily. ??? hydrocortisone butyrate 0.1 % cream - ketoconazole 2% cream 50:50 CREA Apply to affected area 2times daily as needed. No current facility-administered medications on file prior to encounter. Current Outpatient Prescriptions on File Prior to Encounter Medication Sig Dispense Refill ??? vortioxetine (TRINTELLIX) 10 MG tablet Take 10 mg by mouth once daily ??? omeprazole (PRILOSEC) 20 MG capsule Take 1 capsule by mouth 2 times daily,before breakfast and supper 30 capsule 5 ??? sucralfate (CARAFATE) 1 GM/10ML suspension Take 10 mL by mouth 4 times daily 1200 mL 0 ??? carisoprodol (SOMA) 350 MG tablet Take 1 Tab by mouth 3 times daily as needed. 80 Tab 0 ??? buPROPion SR 12hr (WELLBUTRIN-SR) 150 MG tablet Take 150 mg by mouth once daily. ??? hydrocortisone butyrate 0.1 % cream - ketoconazole 2% cream 50:50 CREA Apply to affected area 2times daily as needed. Physical Exam: NPO status: no solids since midnight, no liquids within 2 hours Oriented to person, place and time Airway: I Neck ROM: full Dental exam findings: normal/ok Pulmonary exam: breath sounds CTA Heart sounds: S1 S2 Review of Systems: Other comments: Plan for Anesthesia: ASA Score: 3. Anesthesia plan: general / ETT Planned method of induction: intravenous Planned postop destination: PACU Planned administration of opioids for postop analgesia Anesthesia plan, risks and benefits discussed with patient Anesthesia consent: obtained Plan accepted yes ANESTHESIA PRE-EVALUATION NOTE Physical Exam: Orientation: Orientation X3 Airway/Mallampati Score: I Mouth Opening Distance: 2.5 fingerwidths Neck ROM: full TM Distance: > 3 FB Teeth: normal Heart: regular rate rhythm Lungs: normal ANESTHESIA PLAN ASA Score: 3 NPO Status: No liquids within 2 hours and No solids for 8 hours Anesthesia Plan: general Planned Induction: intravenous Planned Postop Destination: PACU Anesthetic plan was discussed with: patient Anesthetic Plan discussion was: Consented Test: Recent Labs Component Name 04/06/18 0716 HCGURINE Negative VITAL SIGNS Temp: 97.7 ??F (36.5 ??C) Pulse: 77 Resp: 17 BP: 153/88 Weight: 99.3 kg (219 lb) Height: 182.9 cm (6') SpO2: 95 % Normal sinus rhythm Rightward axis Borderline ECG No previous ECGs available Confirmed by PHIL MCKENZIE, SANDIE ([id number]) on 12/14/2014 3:36:58 PM Anesthesia pre op re evaluation by LICO Martinez 04/06/2018 8:19 AM documented in this encounter Miscellaneous Notes * Anesthesia Transfer of Care - Cordell Grimm APRN-CRNA - 04/06/2018 10:33 AM CDT ANESTHESIA TRANSFER OF CARE NOTE Today's Date: 04/06/2018 Date of : 1970 Patient: Finesse Ramirez Procedure(s): LAPAROSCOPIC CHOLECYSTECTOMY UPPER ENDOSCOPY Surgeon(s): Primary: Rashawn Herring MD Preop Diagnosis: * No Diagnosis Codes entered * * No Diagnosis Codes entered * . Allergies Allergen Reactions ??? Morphine Nausea and/or Vomiting Can take derivatives ??? Erythromycin Rash ??? Hydrocodone Nausea and/or Vomiting ??? Neurontin [Gabapentin] Other Restless Vitals: Patient Vitals for the past 3 hrs: BP Temp Pulse Resp SpO2 SP02 Frequency O2 L/M O2 DEVICE Pain Scale/Observation Pain Rating Score #1Pain Location Pain Quality Aggravating Factors Relieved By Functional Goal # Sedation Level 04/06/18 1029 156/81 98.7 ??F (37.1 ??C) 87 20 99 % Continuous 10 Mask - Simple Resting with eyes closed - - - - - - - 04/06/18 0734 153/88 - 77 17 95 % Spot Check - Room Air N 2 Back;Abdomen Aching Activity Medications;Rest 5 1-Awake and alert Lines, Drains, and Airways Type Details Placement Removal Peripheral IV 04/06/18; 0733; Right; Wrist; Xenia RN; 20 Gauge; 1; Injectable; Well 04/06/18 0733 Gin Khan RN ETT 04/06/18; 0938 (created via procedure documentation); OMID Martinez CRNA; mask not attempted; Rapid Sequence, Cricoid pressure; Jeaneth; 3; Grade 1 (full cords); Stylet; Endotracheal Tube; Oral; Cuffed-inflated; 7 FR; 21 CM; lips; 1; Air; Direct visualization, Bilateral breath sounds, Chest Auscultation, CO2 Monitor; 04/06/18; 1026 04/06/18 0938 by Cordell Grimm APRN-CRNA by Cordell Grimm APRN-CRNA Intraprocedure I/O Totals Anesthesia Other Output Estimated Blood Loss 10 mL lactated ringers infusion Volume infused 800 ml Patient Transfer Location: PACU Transport Airway: spontaneous respirations and supplemental O2 Complications: None Handoff Given? Yes Checklist or Protocol - The [place] handoff elements that must be included in the transfer of care checklist include: 1. Identification of patient. 2. Identification of responsible practitioner (PACU nurse or advanced practitioner). 3. Discussion of pertinent medical history. 4. Discussion of the surgical/procedure course (procedure, reason for surgery, procedure performed). 5. Intraoperative anesthetic management and issue/concerns. 6. Expectations/Plans for the early post-procedure period. 7. Opportunity for questions and acknowledgement of understanding of report from the receiving PACUteam. LICO Martinez documented in this encounter Plan of Treatment Not on file documented as of this encounter Procedures Procedure Name Priority Date/Time Associated Diagnosis Comments ENDOTRACHEAL TUBE NOTE Routine 04/06/2018 9:38 AM CDT documented in this encounter Visit Diagnoses Not on filedocumented in this encounter Administered Medications Inactive Administered Medications - up to 3 most recent administrations Medication Order MAR Action Action Date Dose Rate Site acetaminophen (OFIRMEV) injection PRN, Starting on Fri04/06/18 at 0918, Until Fri04/06/18 at 1034, Anesthesia Intra-op $ Given 04/06/2018 9:18 AM CDT 1,000 mg ceFAZolin (ANCEF) syringe 2,000 mg 2,000 mg (2 g), Intravenous, PRE-OP ONCE, 1 dose, On Fri04/06/18 at 0704, Administer 30 minutes prior to surgical incision. Repeat dose in 3 hours if surgical incision not closed. Administer over 3-5 minutes., Indication for anti-infective therapy: Surgical prophylaxis, Site of anti-infective therapy: Other, Other site of infection (free text): Bariatric surgery, Pre-op $ Given 04/06/2018 9:09 AM CDT 2 g dexamethasone (DECADRON) injection PRN, Nausea/Vomiting, Starting on Fri04/06/18 at 0914, Until Fri04/06/18 at 1034, Anesthesia Intra-op $ Given 04/06/2018 9:14 AM CDT 8 mg diphenhydrAMINE (BENADRYL) injection PRN, Itching, Starting on Fri04/06/18 at 0914, Until Fri04/06/18 at 1034, Anesthesia Intra-op $ Given 04/06/2018 9:14 AM CDT 25 mg fentaNYL (PF) (SUBLIMAZE) injection PRN, Starting on Fri04/06/18 at 0905, Until Fri04/06/18 at 1034, Anesthesia Intra-op $ Given 04/06/2018 10:27 AM CDT 50 mcg $ Given 04/06/2018 9:51 AM CDT 50 mcg $ Given 04/06/2018 9:05 AM CDT 100 mcg lactated ringers infusion at 20 mL/hr, Intravenous, PRE-OP CONTINUOUS, Starting on Fri04/06/18 at 0715, Until Fri04/06/18 at 1356, Pre-op $ New Bag/Syringe 04/06/2018 7:43 AM CDT $ New Bag/Syringe 04/06/2018 7:42 AM CDT 20 mL/ hr lidocaine hcl (PF) (XYLOCAINE MPF) 2 % injection PRN, Starting on Fri04/06/18 at 0905, Until Fri04/06/18 at 1034, Anesthesia Intra-op $ Given 04/06/2018 9:05 AM CDT 50 mg midazolam (VERSED) injection PRN, Starting on Fri04/06/18 at 0858, Until Fri04/06/18 at 1034, Anesthesia Intra-op $ Given 04/06/2018 8:58 AM CDT 2 mg Ondansetron HCl (ZOFRAN) injection PRN, Nausea/Vomiting, Starting on Fri04/06/18 at 1003, Until Fri04/06/18 at 1034, Anesthesia Intra-op $ Given 04/06/2018 10:03 AM CDT 8 mg propofol (DIPRIVAN) injection PRN, Starting on Fri04/06/18 at 0905, Until Fri04/06/18 at 1034, Anesthesia Intra-op $ Given 04/06/2018 9:05 AM CDT 200 mg rocuronium (ZEMURON) injection PRN, Starting on Fri04/06/18 at 0911, Until Fri04/06/18 at 1034, Anesthesia Intra-op $ Given 04/06/2018 9:11 AM CDT 50 mg succinylcholine (ANECTINE) injection PRN, Starting on Fri04/06/18 at 0905, Until Fri04/06/18 at 1034, Anesthesia Intra-op $ Given 04/06/2018 9:05 AM CDT 100 mg sugammadex (BRIDION) injection PRN, Starting on Fri04/06/18 at 1013, Until Fri04/06/18 at 1034, Anesthesia Intra-op $ Given 04/06/2018 10:13 AM CDT 200 mg documented in this encounter Care Teams Magazine Worker Relationship Specialty Start Date End Date Kelly Roberts, RN Mice Raiser 12/28/14 documented as of this encounter
--- OUTSIDE RECORDS SUMMARY | 2024-11-15 03:19 | XMS_ITS | Encounter Summary ---
Author Organization [facility] Address [address] [place] [address] Care Team Providers Care Test Baker Name Role Phone Unavailable Primary Care Provider Unavailabl e Reason for Visit * Reason Onset Date Comments MEDICATION REFILL 01/28/2011 Pain Back 01/28/2011 Encounter Details Date Type Department Care Team (Late st Contact Info) Description 01/28/2011 Refill [facility] Neurosciences [id number] [place] [id number] [place] [id number] [facility] [address] [phone] MEDICATION REFILL; Pain Back Social History Tobacco Use Types Packs/Day Years [...] Telephone Encounter - Criss Baltazar LPN - 01/29/2011 1:48 PM CDT Spoke with patient. Coming in today to discuss with Dr Deleon. * Telephone Encounter - Criss Baltazar LPN - 01/28/2011 11:56 AM CDT Patient called and said she went to [facility] ER yesterday after calling exchange. Xrays were negativeper ER doctor.Said she had fallen last week but was doing ok then started having pain friday night that got worse with cracking sound in low back upon movement .She has been taking 1 percocet as needed and was told in ER she should take 2 if 1 didn't give relief and call our office for refill.Lorraine ent can not tolerate Vicodin she said.Patient would like Dr Deleon to call her at home.[phone] documented in this encounter Plan of Treatment Not on file documented as of this encounter Visit Diagnoses Not on filedocumented in this encounter
--- OUTSIDE RECORDS SUMMARY | 2024-11-15 03:19 | XMS_ITS | Encounter Summary ---
Author Organization [facility] Address [address] [place] [address] Care Team Providers Care Insurance Sales Professional Name Role Phone Unavailable Primary Care Provider Unavailabl e Reason for Visit * Reason Onset Date Comments MEDICATION REFILL 03/19/2011 Encounter Details Date Type Department Care Team (Late st Contact Info) Description 03/19/2011 Refill [facility] Neuroscience [id number] [address] [place] [address] [facility] [address] [address] MEDICATION REFILL Social History Tobacco Use Types [...] Telephone Encounter - Criss Baltazar LPN - 03/19/2011 3:38 PM CDT Patient called for refill of pain medication. I spoke to Dr Deleon and he said we can give script for percocet 5/325 mg. Patient ask if I could take it to [facility] pharmacy. I took it down and gave to pharmacy personal. Family member to merchandise pickup/receiving associate today for her. documented in this encounter Plan of Treatment Not on file documented as of this encounter Visit Diagnoses Not on filedocumented in this encounter
--- OUTSIDE RECORDS SUMMARY | 2024-11-15 03:19 | XMS_ITS | Encounter Summary ---
Author Organization [facility] Address [address] [facility] [place] [address] Care Team Providers Care Sports Medicine Physician Name Role Phone Unavailable Primary Care Provider Unavailabl e Reason for Visit * Reason Comments Post-Op Encounter Details Date Type Department Care Team (Late st Contact Info) Description 01/29/2011 3:30 PM CDT Office Visit [facility] Neurosciences [id number] [place] [address] [place] [id number] [address] Lumbago with sciatica (Primary Dx); Spondylolisthesis; DDD [...] Progress Notes * Sean Deleon MD - 01/29/2011 4:20 PM CDT Mrs. Finesse Bolivar is 12 days s/p L5-S1 MIS decompression, TLIF, open reduction of spondylolisthesis, and IPSF and now presents for routine postoperative care. Following her discharge from the hospital, she reports initially having generalized pain in the lower back, hips, and legs. She also found that the Neurontin that I had prescribed for her neuropathic symptoms was making her restless, anxious, and fidgety, making it particularly difficult for her to get any sleep. Therefore, she stopped this medication and was subsequently able to get better sleep. However, after stopping this medication, she reports some increase in her back and LE pain. Then, last , she was getting up from the couch to go to the washroom when she ran into some boxes in the estes, causing her to fall awkwardly. After this fall, she developed severe nerve pain in the lower back extending down the legs,worse on the right than on the left. The pain is focused around her right sided back incision, extends into the right buttock and hip, and then radiates down the lateral right thigh to anterolateral calf. Her legs have been sensitive to touch in these regions of pain on the right and in the right anterior thigh and foot, and she feels like there is something cutting into her legs when she sits on a toilet or on the edge of a chair. She feels that the prior generalized pain in the back and hips is better at this time. She also reports that the prior left hip and upper leg pain that she had prior to surgery is a lot better postoperatively, although her current pain on the right is similar to that pain. She actually feels that the nerve pain in the right hip and leg is worse than the pain that she had in the LLE preoperatively. She has noted frequent popping in the right side of the low er back near her right sided incision since her fall, and the popping seems to be at the center of where her pain is. She presented to the [facility] ER Friday for evaluation of these worsened painsymptoms. Plain films in the ER demonstrated stable hardware placement and spinal alignment, without evidence of fracture or subluxation. She was given a dose of IV Dilaudid, and was prescribed a medrol dose pack and discharged home. In addition to the medrol, she has continued taking Percocet for management of pain, which seems to provide her reasonable pain relief. She has had intermittent fever up to 102 F starting the night she went to the ER, and reports a little soreness in her throat during this time. She has not had any cough or other URI symptoms. She has taken ibuprofen for management of her fever. Currently, her right sided back, hip, and LE pain are very bothersome and concerning for her. She is also quite concerned regarding the frequent popping that she experiencing in the right side of herback, although interestingly, she reports that the popping has reduced since she started the medroldosepack. She is intermittently emotional and tearful during our interview, and appears somewhat fidgety and anxious during our visit-- she frequently stands and shakes her right leg up and down and from side to side. In addition to her postoperative pain issues, both she and her mother also express that they had a generally poor experience in the recovery area following surgery. Mrs. Bolivar was in quite a bit of pain postoperatively, and requested multiple times that the staff place a pillow under her legs tomake her more comfortable. Apparently, the staff told her that there weren't any additional pillowsavailable, which I find somewhat hard to believe. She ended up pulling the pillow from beneath her head to place under her knees. Additionally, she felt that the staff was generally brusque and rude to her. She apparently developed a lot of left eye irritation and discomfort postoperatively, which was reported to her nurse, Bre, who wanted to place ointment in the eye and cover it. 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 This was apparently met with some annoyance by her nurse. Eye drops were then ordered by Dr. Rodriguez, but these did not arrive until about 4 hours later. Her pain level was difficult to control in the PACU, and the nurse later told her that she had just been taking a lot of Percocet for a long time, making it difficultfor the nurses to get her pain under control. When she was finally discharged from the PACU (after about 4 hours), she was quite discouraged and frightened, and asked her mother not to leave her alone in this hospital. Her mother reports that Mrs. Sandoval regularly cries after anesthetic, and shefeels that this might have irritated or annoyed the nursing staff (her mother used to work in a PACU). Overall, Mrs. Sandoval feels that the PACU staff was generally rude to her and put her off . Some members of the staff apparently met her and her family the next day to further discuss things, and she felt that they tried to explain the rationale for their rude behavior rather than apologize for it. Unfortunately, this is the first that I have heard of this inappropriate behavior. On exam, her lumbar incisions are well approximated, with a small amount of eschar along the incision line. I removed her steri-strips, and there is some redness and skin irritation at the adhesive sites. Otherwise, there is no fluctuance, drainage, or tenderness at the incision sites. Motor examination reveals trace weakness of the right dorsiflexors, otherwise she has normal strength and tone elsewhere. Sensory exam reveals mild allodynia over the right lateral calf, over the proximal dorsum of the left foot, and over the left anterior thigh, otherwise sensation is grossly intact to light touch throughout. Reflexes are 2+ and symmetric in the knee jerks and ankle jerks. Toes are downgoing. Straight leg-raise elicits tightness and discomfort in the posterior legs at 90 degrees bilaterally. Dias's signs are absent. Gait and station are stable. Mrs. Sandoval has developed some new, severe pain symptoms in the right side of the lower back, right hip, and right LE postoperatively, which is similar to, but actually more intense than, her preoperative pain symptoms in the left hip and left LE. I am uncertain as to the cause of this, as I didnot expose or manipulate the right sided nerve roots during surgery, and there is no hardware displacement of change in spinal alignment on her plain films. Her prior spondylolisthesis remains completely reduced. Given the onset of her current right sided pain symptoms following her fall, this may just represent muscular strain and inflammation. However, her description of pain and her allodynia on exam is suggestive of a neuropathic source. I would like to proceed with an MRI of the lumbar spine with and without contrast to further evaluate her symptoms. She is amenable to this, and I provided her a referral for therapy. In the meanwhile, I will be continuing medical management of her painsymptoms. I provided her scripts for Percocet 7.5/325 and Soma, and she will continue her current medrol Dosepack. She will also try restarting the Neurontin at a lower dose, as she actually felt that her pain was reduced with this medication. If she tolerates a once-daily dosage, she will increaseit as tolerated. If she has too many side effects, we will stop it and considering starting Amitriptyline for management of pain. I will make further treatment recommendations and follow up arrangements for her as needed, once I have had an opportunity to review her imaging study. In regards to her poor experience in the PACU, I will follow up with the management staff and charge nurses to find out what the issues were and how we can improve/change things so that Mrs. Sandoval's experience will not happen again. She has been very gracious in moving on from her frustrating experience in the PACU. documented in this encounter Plan of Treatment Not on file documented as of this encounter Visit Diagnoses Diagnosis Lumbago with sciatica- Primary Sciatica Spondylolisthesis Congenital spondylolisthesis DDD (degenerative disc disease), lumbar Degeneration of lumbar or lumbosacral intervertebral disc Lumbar spinal stenosis Spinal stenosis, lumbar region, without neurogenic claudication documented in this encounter
--- OUTSIDE RECORDS SUMMARY | 2024-11-15 03:19 | XMS_ITS | Encounter Summary ---
Author Organization [facility] Address [address] [facility] [place] [address] Care Team Providers Care Sample Dye Mixer Name Role Phone Kelly Roberts RN Unavailable [phone] Reason for Visit * Reason Comments Follow-up 2 yr sl Encounter Details Date Type Department Care Team (Late st Contact Info) Description 12/27/2016 2:[address] Office Visit [facility] Management Services [address] [address] Suzette Wiley, HEALTH SPECIALIST-CURTAIN FELLER BLINDSTITCH [address] [facility] [address] [place] [address] Bariatric surgery status (Primary Dx); Severely overweight; BMI 27.0-27.9,adult; Weight gain Social History Tobacco Use Types [...] Sign Reading Time Taken Comments Blood Pressure 128/83 12/27/2016 2:[address] Pulse 81 12/27/2016 2:[address] Temperature - - Respiratory Rate - - Oxygen Saturation - - Inhaled Oxygen Concentration - - Weight 92.5 kg (204 lb) 12/27/2016 2:[address] Height 182.9 cm (6') 12/27/2016 2:[address] Body Mass Index 27.67 12/27/2016 2:[address] documented in this encounter Functional Status Functional [...] Patient Instructions * Patient Instructions* Suzette Wiley, HEALTH SPECIALIST-CURTAIN FELLER BLINDSTITCH - 12/27/2016 3:[address] POST OPERATIVE VISIT INSTRUCTIONS ANNUAL Dietary ?? [...] list of acceptable supplements, please see the instrumentation engineering technician. For band patients, protein bars are recommended. [...] drawn 2 weeks priorto your annual appointment. GER CT documented in this encounter Progress Notes * Suzette Wiley APRN-CNP - 12/27/2016 2:55 PM CST Annual Bariatric Surgery Follow up Date of Surgery: 12/27/2014 Laparoscopic sleeve gastrectomy (Nima) ?? Initial weight: 275 ?? Today's weight: 204 ( lowest weight 188 ) ?? Total weight loss: 71 lbs ?? IBW: 184 EBW: 91 % of EBW Loss: 78 % CC Finesse Ramirez is here today for their annual postoperative follow up visit. She reports that overall she is doing well She is frustrated with her weight gain She has been having some neck pain with numbness and tingling down her arm. She has been following up with physical therapy and feels her symptoms have not improved. She is not doing as much exercise due to this. She feels her eating has been off due to family stress. She has been eating higher carb and sugar foods at night. She is not doing a food journal She is not measuring portions. She is getting in all of her protein, fluids and taking vitamins. She is taking OTC vitamins, we did reviewed recommended daily vitamins. She denies any nausea, vomiting, reflux or abdominal pain. She is moving her bowels and has some intermittent constipation. Review of systems as above, the rest of the systems were negative. BP 128/83 Pulse 81 Ht 6' (1.829 m) Wt 204 lb (92.5 kg) BMI 27.67 kg/m2 Current Outpatient Prescriptions Medication ??? carisoprodol [...] Plan: S/P sleeve : Morbid Obesity Weight gain: - she was referred to the dietitian and the counselor, but she does not feel she needs this - she is to start on food journal , measure portions and reduce the carbs and sugars - she is to continue with the exercise. HTN: off all medication Diet: Continue with 60 gms of protein, 64 oz fluid daily Eat slowly, taking 30 minutes to finish a meal Drink liquid protein between meals for hunger Follow dietary restrictions Weigh weekly,weight regain can happen. Anything more than 10% is not normal. Call the office for anappointment. Support Groups: Encouraged to attend Vitamins: Continue with OTC MVI 2 per day , b12 and biotin, we discussed the recommended daily bariatric MVI Exercise: No restrictions, This is required to maintain weight loss. General medical: continue to follow up with your PCP for medication adjustments if needed. Labs: She will have recent lab work faxed to the office and Will be checked annually. Follow up: In 1 year with routine labs or PRN. She is to call with any further weight gain. GER CT documented in this encounter Plan of Treatment Not on file documented as of this encounter Visit Diagnoses Diagnosis Bariatric surgery status- Primary Severely overweight Morbid obesity BMI 27.0-27.9,adult Body Mass Index 27.0-27.9, adult Weight gain Abnormal weight gain documented in this encounter Care Teams Sample Dye Mixer Relationship Specialty Start Date End Date Kelly Roberts RN Supervisory It Specialist 12/28/14 documented as of this encounter
--- OUTSIDE RECORDS SUMMARY | 2024-11-15 03:19 | XMS_ITS | Encounter Summary ---
Author Organization [facility] Address [address] [facility] [place] [address] Care Team Providers Care Drug Regulatory Affairs Specialist Name Role Phone Kelly Roberts RN Unavailable [phone] Reason for Visit * Reason Comments Refill Request Encounter Details Date Type Department Care Team (Late st Contact Info) Description 06/26/2018 Refill [facility] Management Services [address] [address] [address] [place], [facility] [address] [facility] [address] [place] [address] Refill Request Social History Tobacco [...] on filedocumented in this encounter Care Teams Drug Regulatory Affairs Specialist Relationship Specialty Start Date End Date Kelly Roberts RN Research Associate Molecular Biology 12/28/14 documented as of this encounter
--- OUTSIDE RECORDS SUMMARY | 2024-11-15 03:19 | XMS_ITS | Encounter Summary ---
Author Organization [facility] Address [address] [facility] [place] [address] Care Team Providers Care Psych Social Worker Name Role Phone Kelly Roberts RN Unavailable [phone] Reason for Visit * Auth/Cert Specialty Diagnoses / Procedures Referred By Jesse santana Referred To Contact Procedures LAPAROSCOPIC CHOLECYSTECTOMY Referral ID Status Reason Start Date Expiration Date Visits Re quested Visits Authorized [id number] 1 1 Encounter Details Date Type Department Care Team (Latest Contact Info) Description 04/06/2018 9:00 AM CDT - 04/06/2018 10:20 AM CDT Surgery [facility] - Perioperative Surgery [address] [place] [address] [place] [id number] [facility] [address] [place] [address] LAPAROSCOPIC CHOLECYSTECTOMY UPPER ENDOSCOPY Surgery Details Date/Time Status Location OR Service Patient Class Case Class Case Type Trauma Case? 04/06/2018 9:00 AM Posted [facility] OR OR 02 General Surgery Day Care Elective > 5 days Panel 1 Procedure LRB Anes Op Region Wound Class Comments LAPAROSCOPIC CHOLECYSTECTOMY UPPER ENDOSCOPY General Abdomen Clean Contaminated Surgeon Surgeon Role Service Panel Rashawn Herring MD Primary General 1 documented in this encounter Social History [...] Sign Reading Time Taken Comments Blood Pressure 153/88 04/06/2018 7:34 AM CDT Pulse 77 04/06/2018 7:34 AM CDT Temperature 36.5 ??C (97.7 ??F) 04/06/2018 7:32 AM CD T Respiratory Rate 17 04/06/2018 7:34 AM CDT Oxygen Saturation 95% 04/06/2018 7:34 AM CDT Inhaled Oxygen Concentration - - [...] CO2, BUN, CREATININE, GLUCOSE, CALCIUM in thelast 58690 hours. No results for input(s): WBC, HGB, HCT, PLTCOUNT in the last 03856 hours. Ultrasound Abdomen Limited ?? Indication: Right [...] Herring MD - 04/06/2018 10:20 AM CDT [facility] Operative Report OPERATIVE REPORT PATIENT:Finesse Ramirez ADMIT [...] Cholecystectomy Intraoperative esophagogastroduodenscopy SURGEON: Rashawn Herring MD DRAFTER HEATING AND VENTILATING: Blanca Jenkins RN ANESTHESIA: General endotracheal. PROCEDURE: [...] Case Report Surgical Pathology Report ? Case: [id number] ? Authorizing Provider: ??Rashawn Herring MD ? [...] scattered throughout. Sections are submitted in A1. MR/samuel 04/07/2018 3:34 PM CDT [facility] Microscopic Description Microscopic examination supports pathologic diagnosis. JW/samuel 04/07/2018 3:34 PM CDT [facility] Disclaimer All histochemical and/or immunohistochemical results are interpreted with controls that demonstrate appropriate staining reactions before reporting results. Note on use of immunocytochemistry reagents: This test was developed and its performance characteristic determined by [facility], Department of Laboratory Medicine. It has not been cleared or approved by the U.S. Food and Drug Administration (FDA). The FDA has determined that such clearance or approval is not necessary. The test is used for clinical purpose. It should not be regarded as investigational or for research. This laboratory is certified to perform high complexity testing. 04/07/2018 3:34 PM CDT [facility] Embedded Images 04/07/2018 3:34 PM CDT [facility] Pathology/Cytolo gy ENTIRE GALLBLADDER / Unknown 04/06/2018 8:33 AM CDT 04/06/2018 10:33 AM CDT Rashawn Herring MD LAB - PATHOLOGY/CYTO LOGY ORDERABLES Performing Organization Address [facility] Co de Phone Number [facility] [address] [place] [address] * HCG URINE QUALITATIVE (04/06/2018 7:16 AM CDT) hCG Qualitative Urine Negative Negative 04/06/2018 7:45 AM CDT [facility] Urine URINE / Unknown Collection / Unknown 04/06/2018 7:16 AM CDT 04/06/2018 7:34 AM CDT Harini Phelan DO LAB - URINALYSIS ORD ERABLES Performing Organization Address [facility] Co de Phone Number [facility] [address] [place] [address] documented in this encounter Visit Diagnoses Not on filedocumented in this encounter Administered Medications Inactive Administered Medications - up to 3 most recent administrations Medication Order MAR Action Action Date Dose Rate Site 0.9% nacl irrigation solution PRN, Starting on Fri04/06/18 at 0936, Until Fri04/06/18 at 1029, Intra-op $ Given 04/06/2018 9:36 AM CDT 3,000 mL acetaminophen (TYLENOL) tablet 1,000 mg 1,000 mg, Oral, PRE-OP ONCE, 1 dose, On Fri04/06/18 at 0704, Pre-op bupivacaine 0.5% - EPINEPHrine 1:200,000 (PF) injection PRN, Starting on Fri04/06/18 at 0941, Until Fri04/06/18 at 1029, Intra-op $ Given 04/06/2018 9:41 AM CDT 25 mL famotidine (PEPCID) injection 20 mg 20 mg, [...] 7:42 AM CDT 20 mL/ hr lidocaine (XYLOCAINE MPF) 1 % injection PRN, Starting on Fri04/06/18 at 0942, Until Fri04/06/18 at 1029, Intra-op $ Given 04/06/2018 9:42 AM CDT 25 mL lidocaine buffered 1 % injection 0.5 mL [...] ($ Given - Prov ider: Cordell Grimm APRN-PUBLIC ADMINISTRATION PROFESSOR) famotidine (PEPCID) injection 20 mg (COMPLETED) 20 mg, Intravenous, PRE-OP ONCE, 1 dose, On Fri04/06/18 at 0704, Give morning of surgery., Pre-op 07 ($ Given - Prov ider: Gin Burgos [...] labeled as 1mg/72 hours or 1.5mg/72 hours. 0742 ($ Applied - Pr ovider: Gin Burgos RN) Continuous Medication Order 04/04/2018 04/05/2018 04/06/2018 lactated ringers infusion at 20 mL/hr, Intravenous, PRE-OP CONTINUOUS, Starting on Fri04/06/18 at 0715, Until Fri04/06/18 at 1356, Pre-op 0742 ($ New Bag/Syri nge - Provider: Gin Burgos RN)0743 ($ New Bag/Syringe - Provider: OMID MartinezPUBLIC ADMINISTRATION PROFESSOR)1033 (Anesthesia Volume Adjustment - Provider: LICO Martinez) PRN Medication Order 04/04/2018 04/05/2018 04/06/2018 [...] MD) documented in this encounter Care Teams Psych Social Worker Relationship Specialty Start Date End Date Kelly Roberts, RN Metal Bonding Assembler 12/28/14 documented as of this encounter
--- OUTSIDE RECORDS SUMMARY | 2024-11-15 03:19 | XMS_ITS | Encounter Summary ---
Author Organization [facility] Health Address [address] [facility] [place] [address] Care Team Providers Care Draughtsman Name Role Phone Kelly Roberts RN Unavailable [phone] Reason for Visit * Reason Comments Follow-up 1 yr sleeve Encounter Details Date Type Department Care Team (Late st Contact Info) Description 12/28/2015 10:00 AM INFO ANALYST Office Visit [facility] [address] [address] [address], DATA REPORT ANALYST-[facility] [address] [facility] [address] [place] [address] Bariatric surgery status (Primary Dx); Non morbid obesity, unspecified obesity type; BMI 25.0-25.9,adult Social History Tobacco Use Types Packs/Day Years [...] Sign Reading Time Taken Comments Blood Pressure 133/79 12/28/2015 10:05 AM INFO ANALYST Pulse 71 12/28/2015 10:05 AM INFO ANALYST Temperature - - Respiratory Rate - - Oxygen Saturation - - Inhaled Oxygen Concentration - - Weight 85.3 kg (188 lb) 12/28/2015 10:05 AM INFO ANALYST Height 182.9 cm (6') 12/28/2015 10:05 AM INFO ANALYST Body Mass Index 25.5 12/28/2015 10:05 AM INFO ANALYST documented in this encounter Functional Status Functional [...] this encounter Patient Instructions * Patient Instructions* Tobias Ct Rae, DATA REPORT ANALYST-TIME LOCK EXPERT - 12/28/2015 10:42 AM INFO ANALYST POST OPERATIVE VISIT INSTRUCTIONS ANNUAL Dietary ?? [...] list of acceptable supplements, please see the form tamper. For band patients, protein bars are recommended. [...] drawn 2 weeks priorto your annual appointment. ANALYST documented in this encounter Progress Notes * Ct Collado APRN-CNP - 12/28/2015 10:31 AM CST Annual Bariatric Surgery Follow up Date of Surgery: 12/27/2014 Laparoscopic sleeve gastrectomy (Nima) Initial weight: 275 Today's weight: 188 Total weight loss: 87 IBW: 184 EBW: 91 % of EBW Loss: 96% Finesse Ramirez is here today for their annual postoperative follow up visit. She is overall happy with her weight loss She is interested in maybe folowing with a plastic surgeon for excess skin removal once recommended She is getting all of her protein, fluids, and vitamins She is not having any N/V, reflux, or abdominal pain She is moving her bowels ok, goes every 2-3 days She has been taken off of her HTN medications Review of systems as above, the rest of the systems were negative. BP 133/79 mmHg Pulse 71 Wt 188 lb (85.276 kg) BMI 25.49 kg/m2 Current Outpatient Prescriptions Medication ??? carisoprodol [...] x4, no erythema Assessment / Plan: S/P Laparoscopic sleeve gastrectomy: Morbid Obesity: continue with her personalized living manager nurse and exercise routine, continue to monitor caloric intake, avoid sweets and high calorie foods HTN: She has been taken off of her HTN medications Diet: Continue with 60 gms of [...] Labs: Will be checked annually. Will have blood work faxed to us that was done recently Follow up: In 1 year with routine labs or PRN. Total Time of visit: 15 minutes ANALYST documented in this encounter Plan of Treatment Not on file documented as of this encounter Visit Diagnoses Diagnosis Bariatric surgery status- Primary Non morbid obesity, unspecified obesity type BMI 25.0-25.9,adult Body Mass Index 25.0-25.9, adult documented in this encounter Care Teams Draughtsman Relationship Specialty Start Date End Date Kelly Roberts, RN Zoo Veterinarian 12/28/14 documented as of this encounter
--- OUTSIDE RECORDS SUMMARY | 2024-11-15 03:19 | XMS_ITS | Encounter Summary ---
Author Organization [facility] Health Address [address] [place] [address] Care Team Providers Care Water Aerobics Instructor Name Role Phone Kelly Roberts RN Unavailable [phone] Reason for Visit * Reason Comments Follow-up 1 week po sleeve Encounter Details Date Type Department Care Team (Late st Contact Info) Description 01/02/2015 1:30 PM FARM TRACTOR OPERATOR Office Visit [facility] [address] [facility], [facility] [address] [place] [address] [place] [id number] [facility] [address] [place] [address] Morbid obesity (HCC) (Primary Dx) Social [...] Sign Reading Time Taken Comments Blood Pressure 141/88 01/02/2015 1:10 PM FARM TRACTOR OPERATOR Pulse 91 01/02/2015 1:10 PM FARM TRACTOR OPERATOR Temperature 36.3 ??C (97.4 ??F) 01/02/2015 1:10 PM CS T Respiratory Rate 20 01/02/2015 1:10 PM FARM TRACTOR OPERATOR Oxygen Saturation 96% 01/02/2015 1:10 PM FARM TRACTOR OPERATOR Inhaled Oxygen Concentration - - Weight 118.4 kg (261 lb) 01/02/2015 1:10 PM FARM TRACTOR OPERATOR Height 182.9 cm (6') 01/02/2015 1:10 PM FARM TRACTOR OPERATOR Body Mass Index 35.4 01/02/2015 1:10 PM FARM TRACTOR OPERATOR documented in this encounter Functional Status [...] * Patient Instructions* Rashawn Herring MD - 01/02/2015 1:45 PM FARM TRACTOR OPERATOR POST OPERATIVE VISIT INSTRUCTIONS AT 1 WEEK Dietary: Journaling helps keep you honest and on track! Calculate your protein grams daily- women 60 grams of protein per day. EAT PROTEIN FIRST! 64 oz of fluid per day (liquids from protein supplementation can count toward your daily fluid goals. NO CARBONATED BEVERAGES. Limit caffeine such as energy drinks Limit coffee to 1 - 2 cups per day. No alcohol for the first year after surgery. Advance diet as outlined in your nutrition booklet. Start Phase 2 diet FOR 3 WEEKS. Eat slowly, take small bites and chew thoroughly. AT PHASE 3 Your meal should last 20-30 minutes. Stop drinking 15-30 minutes prior to eating and do not drink until 30 - 45 minutes after you have completed the meal. Use a timer. EAT PROTEIN FIRST. Add 1 new food at a time to assess tolerance. Drink protein shakes between meals for hunger. NO GRAZING! Vomiting is not normal. If you can not attribute vomiting to something that you have done, please notify the office. Do not chew gum until 6 months after surgery and never swallow the gum. Vitamins Bariatric Multivitamin, B12, B1 (Thiamine) for 3 months, Calcium with Vitamin D Remember- Prilosec or omeprazole for the first 6 months for ulcer prevention Exercise: Take one more step today than you took yesterday. Wound Care: Shower daily No swimming, hot tubs or soaking until you have been seen at your 1 month appointment If your incision has drainage, keep it covered with a bandage Remove any bandage prior to shower and let soap and water run over your incisions No peroxide or antibiotic ointment to any of the incision sites Once the drainage has stopped, do not coverage you incision with any bandage Call the office if the incision is red, warm or has pus drainage or you have a temperature greater than 100.5. Medications: FOLLOW UP WITH PCP ON DIABETIC, BLOOD PRESSURE AND PSYCHIATRIC MEDICATION ADJUSTMENTS. Do not take a pill bigger than a regular aspirin. Break bigger pills in half or crush for the firstmonth as long as they are not extended release. You should not vomit after taking medication. Ulcer Prevention: Ulcer medication should be taken for 6 months after surgery even if you are not having heartburn symptoms. DO NOT SMOKE. Behavior Modifications: Make a list of behaviors that attributed to your weight gain, put the list in a place you visit most often Please do not weigh daily or monthly. Weighing once a week is a healthy habit. Follow up: For the Sleeve Gastrectomy your next appointment will be in 3 weeks. TRACTOR OPERATOR documented in this encounter Progress Notes * Rashawn Herring MD - 01/02/2015 1:43 PM CST Bariatric Surgery Clinic Note Finesse Ramirez Previous Procedure: Lap sleeve gastrectomy Repair of hiatal hernia Date of Procedure: 12/27/2014 Initial Weight: 275 Todays Weight: 261 Weight Lost: 14 Subjective: Abdominal pain is minimal, no longer taking pain meds Tolerating phase I diet, and taking in 60 gm of protein no nausea or emesis Tolerating vitamins Voiding and having bowel movement Ambulating daily Past Medical History Diagnosis Date ??? Arthritis [...] foot w/ bunionectomy ??? Other surgery 2005 6 EYE SURGERIES ??? Acl reconstruction 2008 Right ??? Rotator cuff repair 2008 LEFT ??? Other surgery 2008 Left ANKLE reconstruction ??? Lumbar spine fusion 01/17/2011 TLIF L5-S1 MINIMALLY INVASIVE ??? Other surgery mortons neuroma removed right and left foot ??? Gastrectomy 12/27/2014 LAPAROSCOPIC VERTICAL SLEEVE GASTRECTOMY Data Vitals: 01/02/15 1310 BP: 141/88 Pulse: 91 Temp: 97.4 ??F Resp: 20 Weight: 261 lb (118.389 kg) SpO2: 96% Physical Exam A+O x 3, NAD CTA B/L RRR ABD soft, ND, NT, incisions C/D/I, no e/o hernias, no erythema or induration Neg BLE edema Assessment/Plan: Pt s/p Lap sleeve gastrectomy here for 1 wk f/u 1. Advance to phase II diet and cont for 3 weeks 2. Cont Bariatric Vitamins, including VitB12, Vit B1, Calcium+Vit D 3. Advance activity to increased cardio, light weights, avoid heavy and strenuous activity for 3 weeks 4. F/U with PCP in 1-2 weeks for management of comorbid conditions 5. RTC 3 weeks Rashawn Herring MD TRACTOR OPERATOR documented in this encounter Plan of Treatment Not on file documented as of this encounter Visit Diagnoses Diagnosis Morbid obesity (HCC)- Primary Morbid obesity documented in this encounter Care Teams Water Aerobics Instructor Relationship Specialty Start Date End Date Kelly Roberts RN Analyst Business Analysis 12/28/14 documented as of this encounter
--- OUTSIDE RECORDS SUMMARY | 2024-11-15 03:19 | XMS_ITS | Encounter Summary ---
Author Organization [facility] Address [address] [facility] [place] [address] Care Team Providers Care Nut Sheller Name Role Phone Kelly Roberts RN Unavailable Reason for Referral * Radiology Services (Routine) - Closed Specialty Diagnoses / Procedures Referred By Contac t Referred To Contact Diagnoses Abdominal pain, LUQ (left upper quadrant) Abdominal pain, RUQ (right upper quadrant) Nausea Right upper quadrant abdominal pain Heartburn Procedures US ABDOMEN LIMITED Ct Collado APRN-CNP [address] [place] [address] Referral ID Status Reason Start Date Expiration Date Visits Re quested Visits Authorized [id number] Closed 02/13/2019 08/12/2019 1 1 Reason for Visit * Radiology Services (Routine) - Closed Specialty Diagnoses / Procedures Referred By Contac t Referred To Contact Diagnoses Abdominal pain, LUQ (left upper quadrant) Abdominal pain, RUQ (right upper quadrant) Nausea Right upper quadrant abdominal pain Heartburn Procedures US ABDOMEN LIMITED Ct Collado APRN-CNP [address] [place] [address] Referral ID Status Reason Start Date Expiration Date Visits Re quested Visits Authorized [id number] Closed 02/13/2019 08/12/2019 1 1 Encounter Details Date Type Department Care Team (Latest Contact Info) Description 03/10/2019 8:00 AM CDT - 03/10/2019 11:59 PM CDT Hospital Encounter [facility] Health Imaging Services - Ultrasound [address] [place] [address] [place] [id number] [facility] [address] [place] [address] Discharge Disposition: Home or Self [...] Q 8 H PRN 0 11/19/2018 11/04/20 21 sucralfate (CARAFATE) 1 GM/10ML suspension Take 10 [...] Procedure Name Priority Date/Time Associated Diagnosis Comments US ABDOMEN LIMITED Routine 03/10/2019 8: 42 AM CDT Abdominal pain, LUQ (left upper quadrant) Abdominal pain, RUQ (right upper quadrant) Nausea Right upper quadrant abdominal pain Heartburn documented in this encounter Results * US [...] cm. There is no hydronephrosis. Procedure Note Chua Paez MD - 03/10/2019 Ultrasound abdomen limited [...] 03/10/2019 at 8:[address] Feliz Huckstep EXTENSION SERVICE SUPERVISOR-BODY JOINER US ORDERA BLES documented in this encounter Visit Diagnoses Diagnosis Abdominal pain, LUQ (left upper quadrant) Abdominal pain, left upper quadrant Abdominal pain, RUQ (right upper quadrant) Abdominal pain, right upper quadrant Nausea Nausea alone Right upper quadrant abdominal pain Abdominal pain, right upper quadrant Heartburn documented in this encounter Care Teams Nut Sheller Relationship Specialty Start Date End Date Kelly Roberts, RN Car Conditioner 12/28/14 documented as of this encounter
--- OUTSIDE RECORDS SUMMARY | 2024-11-15 03:19 | XMS_ITS | Encounter Summary ---
Author Organization [facility] Address [address] [address] Care Team Providers Care Employee Services Manager Name Role Phone Unavailable Primary Care Provider Unavailabl e Reason for Visit * Reason Comments Pain Back Pt presents to ER wi th back pain. States she had a T-lift on 01/17/11. Pt fell on Friday and today started having sensations all over her body in different areas with different movement. Pt c/o pain and tingling primarily to right leg and foot. Pt states she hears a popping sound within her body. Pt called Dr. Deleon's exchange and was told to come here to ER. Encounter Details Date Type Department Care Team (Late st Contact Info) Description 01/27/2011 4:13 PM CDT - 01/27/2011 8:12 PM CDT Emergency ER at [address] [address] Jose Raul Coy MD [address] [place] [id number] Chronic back pain (Primary Dx); Lumbar back pain Discharge Disposition: Home or Self Care Social [...] Reading Time Taken Comments Blood Pressure 128/84 01/27/2011 8:11 PM CDT Pulse 88 01/27/2011 8:11 PM CDT Temperature 36.8 ??C (98.2 ??F) 01/27/2011 4:20 PM CD T Respiratory Rate 16 01/27/2011 8:11 PM CDT Oxygen Saturation 99% 01/27/2011 8:11 PM CDT Inhaled Oxygen Concentration - - Weight 104.3 kg (230 lb) 01/27/2011 4:20 PM CDT Height 182.9 cm (6') 01/27/2011 4:20 PM CDT Body Mass Index 31.19 01/27/2011 4:20 PM CDT documented in this encounter Discharge Instructions * Discharge Instructions* Ifeoma Arevalo Shelia - 01/27/2011 7:32 PM CDT Back Pain & Injury Your back pain is most likely caused by a strain of the muscles or ligaments supporting the spine. Back strains cause pain and trouble moving because of muscle spasms. They may take several weeks to heal. Usually they are better in days. Treatment for back pain includes: ?? Rest - Get bed rest as needed over the next day or two. Use a firm mattress and lie on your sidewith your knees slightly bent. If you lie on your back, put a pillow under your knees. ?? Early movement - Back pain improves most rapidly if you remain active. It is much more stressfulon the back to sit or finance admin one place. Do not sit, drive or finance admin one place for more than 30 minutes at a time. Take short walks on level surfaces as soon as pain allows. ?? Limit bending and lifting - Do not bend over or lift anything over 20 pounds until instructed otherwise. Lift by bending your knees. Use your leg muscles to help. Keep the load close to your body and avoid twisting. Do not reach or do overhead work. ?? Medicines - Medicine to reduce pain and inflammation are helpful. Muscle- relaxing drugs may be prescribed. ?? Therapy - Put ice packs on your back every few hours for the first 2-3 days after your injury oras instructed. After that ice or heat may be alternated to reduce pain and spasm. Back exercises and gentle massage may be of some benefit. You should be examined again if your back pain is not better in one week. SEEK IMMEDIATE MEDICAL CARE IF: ?? You have pain that radiates from your back into your legs. ?? You develop new bowel or bladder control problems. ?? You have unusual weakness or numbness in your arms or legs. ?? You develop nausea or vomiting. ?? You develop abdominal pain. ?? You feel faint. Document Released: 11/03/2006 Document Re-Released: 08/12/2009 ExitCare?? Patient Information ??2009 [facility]. * Discharge Instructions* Document, Scanned - 01/28/2011 1:39 PM CDT documented in this encounter Medications at Time of Discharge Medication Sig Dispensed Refills Start Date End Date acetaminophen (TYLENOL) 325 MG tablet Take 2 Tabs by mouth every 6 hours as needed for Pain. Maximum allowable Acetaminophen amount = 4 Grams / 24 hours. 01/18/2011 07/27/2014 amLODIPine (NORVASC) 5 MG tablet Take 5 mg by mouth daily. 07/27/2014 carisoprodol (SOMA) 350 MG tablet Take 1 Tab by mouth 3 times daily. 80 Tab 0 01/18/2011 01/29/2011 cyclobenzaprine (FLEXERIL) 10 MG tablet Take 1 Tab by mouth 3 times daily as needed for Muscle Spasms. 60 Tab 2 01/18/2011 01/29/2011 Drospirenone-Ethinyl Estradiol (EDER 28 PO) Take by mouth. 07/27/2014 gabapentin (NEURONTIN) 300 MG capsuleIndications:N eurogenic Pain (Inactive) Take 1 Cap by mouth 3 times daily. Indications: Neurogenic Pain 120 Cap 2 01/18/2011 01/29/2011 methylPREDNISolone (MEDROL DOSEPAK) 4 MG tablet Take by mouth as directed. Day 1 - 6 tabs Day 2 - 5 tabs Day 3 - 4 tabs Day 2 - 3 tabs Day 1 - 2 tabs Day 0 - 1 tabs 15 Packet 0 01/27/2011 02/26/2011 methylPREDNISolone (MEDROL DOSEPAK) 4 MG tablet Take by mouth as directed. 21 Packet 0 01/18/2011 01/29/2011 oxycodone-acetaminop hen (PERCOCET) 5-325 MG tablet Take 1-2 Tabs by mouth every 4 hours as needed for Pain. 80 Tab 0 01/18/2011 01/29/2011 documented as of this encounter ED Notes * Jos eRaul Coy MD - 01/27/2011 7:00 PM CDT 01/27/2011 7:00 PM Finesse Bolivar [id number] [facility] History Chief Complaint Patient presents with ??? Pain Back Pt presents to ER with back pain. States she had a T-lift on 01/17/11. Pt fell on Friday and today started having sensations all over her body in different areas with different movement. Pt c/o pain and tingling primarily to right leg and foot. Pt states she hears a popping sound within her body. Pt called Dr. Deleon's exchange and was told to come here to ER. The above entry was not written by me HPI Comments: 7:00 PM Finesse Bolivar is a 40 y.o. female with a past medical history of arthritis and back pain presents to the ER c/o back pain. Pt states on january 17 she had lumbar spine fusion. On january 23, pt stumbled on boxes and began having back pain. Pt states 4 days ago she called Dr. Tariq was not in increased pain from stumble and was told to wait for appointment on February 01. Pt states in middle of night last night, felt back pain and popping sound with movement causing nerve sensation and pain. Pt complains or pain radiating down right leg. Pt is currently taking percocet forback pain and has taken 3 today. Past Medical History Diagnosis Date ??? Arthritis ??? ASTHMA ??? HYPERTENSION ??? MIGRAINE ??? Elevated cholesterol not on Rx ??? Chest pain Past Surgical History Procedure Date ??? Carpal tunnel release 1992 Bilateral ??? Hammer toe repair 1999 Left foot w/ bunionectomy ??? Other surgery 2004 6 EYE SURGERIES ??? Acl reconstruction 2008 Right ??? Rotator cuff repair 2008 LEFT ??? Other surgery 2008 Left ANKLE reconstruction ??? Lumbar spine fusion 01/17/2011 TLIF L5-S1 MINIMALLY INVASIVE History Social History ??? Marital Status: Spouse Name: N/A Number of Children: N/A ??? 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 Smoking status: Never Smoker ??? Smokeless tobacco: Never Used ??? Alcohol Use: Yes social ??? Drug Use: No ??? Sexually Active: Not on file Other Topics Concern ??? Not on file Social History Narrative ??? No narrative on file Medications Current outpatient prescriptions Medication Sig Dispense Refill ??? methylPREDNISolone (MEDROL DOSEPAK) 4 MG tablet Take by mouth as directed. Day 1 - 6 tabs Day 2 - 5 tabs Day 3 - 4 tabs Day 2 - 3 tabs Day 1 - 2 tabs Day 0 - 1 tabs 15 Packet 0 ??? oxycodone-acetaminophen (PERCOCET) 5-325 MG tablet Take 1-2 Tabs by mouth every 4 hours as needed for Pain. 80 Tab 0 ??? acetaminophen (TYLENOL) 325 MG tablet Take 2 Tabs by mouth every 6 hours as needed for Pain. Maximum allowable Acetaminophen amount = 4 Grams / 24 hours. ??? gabapentin (NEURONTIN) 300 MG capsule Take 1 Cap by mouth 3 times daily. Indications: Neurogenic Pain 120 Cap 2 ??? carisoprodol (SOMA) 350 MG tablet Take 1 Tab by mouth 3 times daily. 80 Tab 0 ??? methylPREDNISolone (MEDROL DOSEPAK) 4 MG tablet Take by mouth as directed. 21 Packet 0 ??? cyclobenzaprine (FLEXERIL) 10 MG tablet Take 1 Tab by mouth 3 times daily as needed for Muscle Spasms. 60 Tab 2 ??? Drospirenone-Ethinyl Estradiol (EDER 28 PO) Take by mouth. ??? amLODIPine (NORVASC) 5 MG tablet Take 5 mg by mouth daily. Review of Systems Constitutional: Negative for fever and chills. HENT: Negative for congestion and sore throat. Eyes: Negative for blurred vision and double vision. Respiratory: Negative for cough and shortness of breath. Cardiovascular: Negative for chest pain and palpitations. Gastrointestinal: Negative for nausea and vomiting. Genitourinary: Negative for dysuria and urgency. Musculoskeletal: Positive for myalgias, back pain and falls (stumbled on boxes). All other systems reviewed and are negative. BP 140/96 Pulse 103 Temp 98.2 ??F Resp 20 Ht 6' (1.829 m) Wt 230 lb (104.327 kg) BMI 31.19 kg/m2 SpO2 98% LMP 12/17/2010 Physical Exam Nursing note and vitals reviewed. Constitutional: She is oriented to person, place, and time and well-developed, well-nourished, and in no distress. No distress. HENT: Head: Normocephalic and atraumatic. Mouth/Throat: Oropharynx is clear and moist. Eyes: Extraocular motions are normal. Pupils are equal, round, and reactive to light. Neck: Normal range of motion. Neck supple. Cardiovascular: Normal rate, regular rhythm and normal heart sounds. Pulmonary/Chest: Effort normal and breath sounds normal. No respiratory distress. She has no wheezes. Abdominal: Soft. Bowel sounds are normal. Denies bowel or bladder incontinence Musculoskeletal: Normal range of motion. She exhibits no edema. 5/5 strength with hip flexion and knee extension Neurological: She is alert and oriented to person, place, and time. Gait normal. Skin: Skin is warm and dry. Psychiatric: Affect normal. Procedures Procedures EKG Interpretation Lab Interpretation Oxygen Saturation Interpretation The oxygen saturation level is: 98%. The patient was on Room Air for the saturation measurement. Measurement frequency: Spot Check. Oxygen saturation interpretation is Normal. Results for orders placed during the hospital encounter of 01/27/11 HCG URINE QUALITATIVE - POINT OF CARE Component Value Range ? ? HCG Qual Urine Negative > Negative ? ? QC Verified Yes > Yes XR LUMBAR SPINE 2 OR 3 VW Final Result: Medical Decision Making I have reviewed the: Nursing Notes and Vitals. I have interpreted the following results: Labs, X-Ray and Oxygen Saturation. Labs ordered by nursing prior to my eval Progress Notes ED Plan/Course: 7:12 PM paging neurology. 7:[address] Rosales. Discussed pt history and findings who recommends discharge with steroids. 7:23 PM Rechecked pt - pt is resting comfortably. I answered all questions and addressed all concerns. I have given the patient instructions regarding her diagnosis, expectations, follow up, and return precautions. I explained to the patient that emergent conditions may arise and to return to the ER for new, worsening, or any persistent conditions. I've explained the importance of following up with her doctor (or the referral physician) as instructed. The patient verbalized understanding of the discharge instructions. Diagnosis: Encounter Diagnoses Name Primary? Lumbar back pain ??? Chronic back pain Yes New Medications: New Prescriptions METHYLPREDNISOLONE (MEDROL DOSEPAK) 4 MG TABLET Take by mouth as directed. Day 1 - 6 tabs Day 2 - 5 tabs Day 3 - 4 tabs Day 2 - 3 tabs Day 1 - 2 tabs Day 0 - 1 tabs I have advised the patient to follow-[place] with: [place] [id number] [address] Call in 1 day Disposition: Discharged PRA/Scribe: Ifeoma Arevalo * Whitney Currie RN - 01/27/2011 6:55 PM CDT Pt to ED c/o low back pn with numbness and tingling moving down both LE's. PT says she had back surgery on the 17 of January, fell on January 23 without her back brace. Pt says the pn began last night,says she heard a pop and grinding to her low back. Ambulatory but with increased pain. documented in this encounter Miscellaneous Notes * Miscellaneous Scans - Document, Scanned - 01/29/2011 2:27 PM CDT documented in this encounter Plan of Treatment Not on file documented as of this encounter Procedures Procedure Name Priority Date/Time Associated Diagnosis Comments HCG URINE QUALITATIVE - POINT OF CARE STAT 01/27/2011 6:18 PM CDT XR LUMBAR SPINE 2 OR 3VW STAT 01/27/2011 5:32 PM CDT Lumbar back pain documented in this encounter Results * HCG URINE QUALITATIVE - POINT OF CARE (01/27/2011 6:18 PM CDT) HCG Qual Urine Negative Negative [facility] POCT TESTING QC Verified Yes Yes [facility] POC T TESTING Urine specimen (specimen) URINE / Unknown 01/27/2011 6:18 PM CDT Elina Couch MD LAB - POINT OF C ARE ORDERABLES [facility] [address] [place] [address] * XR LUMBAR SPINE 2 OR 3 VW (01/27/2011 5:32 PM CDT) Anatomical Region Laterality Modality Spine Radiographic Lindsay ging 01/27/2011 5:49 PM CDT Narrative 01/27/2011 5:49 PM CDT LUMBAR SPINE 3 VIEWS INDICATION: Recent L5-S1 discectomy, left-sided facetectomy and transforaminal interbody fusion on 01/17/2011. She reports falling 4 days ago and complains of different sensations over her body with movement. She complains of pain and tingling primarily to her right leg and foot FINDINGS: 3 views of the lumbar spine show postoperative changes at L5-S1, with inner vertebral hardware markers and transpedicular screws at L5 and S1. Alignment is maintained. Vertebral body and disc space heights are normal. I do not see any evidence of fracture or change in the position of the fixation hardware since 01/17/2011 intraoperative examination. Procedure Note Reilly Saul MD - 01/27/2011 LUMBAR SPINE 3 VIEWS INDICATION: Recent L5-S1 discectomy, left-sided facetectomy and transforaminal interbody fusion on 01/17/2011. She reports falling 4 days ago and complains of different sensations over her body with movement. She complains of pain and tingling primarily to her right leg and foot FINDINGS: 3 views of the lumbar spine show postoperative changes at L5-S1, with inner vertebral hardware markers and transpedicular screws at L5 and S1. Alignment is maintained. Vertebral body and disc space heights are normal. I do not see any evidence of fracture or change in the position of the fixation hardware since 01/17/2011 intraoperative examination. Elina Couch MD DIAGNOSTIC IMAGI NG ORDERABLES documented in this encounter Visit Diagnoses Diagnosis Chronic back pain- Primary Backache, unspecified Lumbar back pain Lumbago documented in this encounter Administered Medications Inactive Administered Medications - up to 3 most recent administrations Medication Order MAR Action Action Date Dose Rate Site HYDROmorphone (DILAUDID) 1 mg/ml injection ADS Med 1 dose, Starting on 01/27/11 at 1849, Until 01/27/11 at 1849, WHITNEY CURRIE R: Cabinet Override HYDROmorphone (DILAUDID) injection 1 mg 1 mg, Intravenous, ONCE, 1 dose, On 01/27/11 at 1900 $ Given 01/27/2011 6:49 PM CDT 1 mg ondansetron (ZOFRAN) injection 4 mg 4 mg, Intravenous, ONCE, 1 dose, On 01/27/11 at 1900 $ Given 01/27/2011 6:49 PM CDT 4 mg ondansetron (ZOFRAN) injection ADS Med 1 dose, Starting on 01/27/11 at 1849, Until 01/27/11 at 1849, WHITNEY CURRIE R: Cabinet Override documented in this encounter Active and Recently Administered Medications Due to Daylight Saving Time, this section may contain times in both MULTI OPERATION MACHINE OPERATOR and CDT. Scheduled Medication Order 01/25/2011 01/26/2011 01/27/2011 HYDROmorphone (DILAUDID) injection 1 mg (COMPLETED) 1 mg, Intravenous, ONCE, 1 dose, On 01/27/11 at 1900 1849 ($ Given - Prov ider: Whitney Currie RN) ondansetron (ZOFRAN) injection 4 mg (COMPLETED) 4 mg, Intravenous, ONCE, 1 dose, On 01/27/11 at 1900 1849 ($ Given - Prov ider: Whitney Currie RN) documented in this encounter
--- OUTSIDE RECORDS SUMMARY | 2024-11-15 03:19 | XMS_ITS | Encounter Summary ---
Author Organization [facility] Address [address] [place] [address] Care Team Providers Care Runner Man Name Role Phone Kelly Roberts RN Unavailable [phone] Reason for Referral * Radiology Services (Routine) - Closed Specialty Diagnoses / Procedures Referred By Contac t Referred To Contact Ultrasound Diagnoses Right upper quadrant abdominal pain Diarrhea, unspecified type Epigastric pain Procedures US ABDOMEN LIMITED Ct Collado APRN-CNP [address] [place] [address] Referral ID Status Reason Start Date Expiration Date Visits Re quested Visits Authorized [id number] Closed 03/31/2018 09/27/2018 1 1 Reason for Visit * Auth/Cert Specialty Diagnoses / Procedures Referred By Contac t Referred To Contact Referral ID Status Reason Start Date Expiration Date Visits Re quested Visits Authorized [id number] 1 1 Encounter Details Date Type Department Care Team (Latest Contact Info) Description 04/02/2018 8:24 AM CDT - 04/02/2018 11:59 PM CDT Hospital Encounter [facility] Imaging Services - Ultrasound [address] [place] [address] [address] Collado APRN-CNP [id number] [place] [address] Discharge Disposition: Home or Self Care Social [...] daily as needed. 80 Tab 0 12/29/2014 vortioxetine (TRINTELLIX) 10 MG tablet Take 10 mg by mouth once daily ALBUTEROL INIndications:Morbid obesity (HCC) Inhale by mouth as needed. Bring day of surgery 04/06/2018 hydrocortisone butyrate 0.1 % cream - ketoconazole 2% cream 50:50 CREA Apply to affected area 2 times daily as needed. 11/04/2021 lansoprazole (PREVACID) 30 MG capsule Take 1 Cap by mouth daily before breakfast. 30 Cap 5 12/29/2014 04/03/2018 omeprazole (PRILOSEC) 20 MG capsule Take 20 mg by mouth 2 times daily,before breakfast and supper 04/03/2018 omeprazole (PRILOSEC) 20 MG capsuleIndications:Righ t upper [...] Associated Diagnosis Comments US ABDOMEN LIMITED Routine 04/02/2018 8: 49 AM CDT Right upper quadrant abdominal pain Diarrhea, unspecified type Epigastric pain documented in this encounter Results * US [...] fatty infiltration of the liver Ct Collado MACHINE ADJUSTER LEADER-PERFORMANCE INSTRUCTOR US ORDERA BLES documented in this encounter Visit Diagnoses Diagnosis Right upper quadrant abdominal pain Abdominal pain, right upper quadrant Diarrhea, unspecified type Epigastric pain Abdominal pain, epigastric documented in this encounter Care Teams Runner Man Relationship Specialty Start Date End Date Kelly Robetrs, RN Retail Shift Manager 12/28/14 documented as of this encounter
--- OUTSIDE RECORDS SUMMARY | 2024-11-15 03:19 | XMS_ITS | Encounter Summary ---
Author Organization [facility] Health Address [address] [place] [address] Care Team Providers Care Air Route Controller Name Role Phone Kelly Roberts RN Unavailable [phone] Reason for Visit * Reason Comments Post-Op 1 wk po robles Encounter Details Date Type Department Care Team (Late st Contact Info) Description 04/15/2018 12:30 PM CDT Office Visit [facility] Management Services [address] [address] [address] Collado, COMPLEX CARE NURSE [facility] [address] [address] S/P cholecystectomy (Primary Dx) Social History Tobacco Use Types [...] Sign Reading Time Taken Comments Blood Pressure 128/88 04/15/2018 12:45 PM CDT Pulse 88 04/15/2018 12:45 PM CDT Temperature 37.1 ??C (98.8 ??F) 04/15/2018 12:45 PM C DT Respiratory Rate - - Oxygen Saturation - - Inhaled Oxygen Concentration - - Weight 99.3 kg (219 lb) 04/15/2018 12:45 PM CDT Height 185.4 cm (6' 1 ) 04/15/2018 12:45 PM CDT Body Mass Index 28.89 04/15/2018 12:45 PM CDT documented in this encounter Functional [...] this encounter Progress Notes * Ct Collado, CÉSAR-IT COMMUNICATIONS MANAGER - 04/15/2018 1:01 PM CDT Bariatric Surgery Clinic Note Finesse Ramirez Previous Procedure: Laparoscopic Cholecystectomy Intraoperative esophagogastroduodenscopy (Herring) Date of Procedure: 04/06/2018 Todays Weight: 219 Subjective: Patient is here today for their 1 week post surgery follow up She reports overall they are doing well She is getting in adequate fluids and tolerating regular diet well She denies any fevers, CP or SOB She denies any nausea, vomiting or reflux. Abdominal pain is minimal-right sided abdominal pain has continued. She is taking abdirashid as needed and using ice Had been constipated-will start stool softener as needed Tolerating regular diet well She is continued on carafate QID and this is helping the pain that she has been having with eating. Rash to abdomen around lap sites and from adhesives. The rash is very Itchy and has hives. Has tried benadryl cream and this is not helping. She has tried Triamcinolone cream, but felt that this is burning her skin. Will try Hydrocortisone cream and oral benadryl. She is to call if this does not seem to help Data Vitals: 04/15/18 1245 BP: 128/88 Pulse: 88 Temp: 98.8 ??F (37.1 ??C) Weight: 219 lb (99.3 kg) MEDICATIONS FOR CURRENT ENCOUNTER: ?? SCHEDULED MEDICATIONS: ?? No current facility-administered medications for this visit. ?? CONTINUOUS MEDICATIONS: ?? No current facility-administered medications for this visit. ?? PRN MEDICATIONS: ?? No current facility-administered medications for this visit. No results for input(s): SODIUM, POTASSIUM, CHLORIDE, CO2, BUN, CREATININE, GLUCOSE, CALCIUM in thelast 93481 hours. No results for input(s): WBC, HGB, HCT, PLTCOUNT in the last 41907 hours. Physical Exam A+O x 3, NAD CTA B/L RRR ABD soft, ND, NT, incisions C/D/I, no e/o hernias Neg BLE edema Assessment/Plan: Pt s/p Laparoscopic Cholecystectomy Intraoperative esophagogastroduodenscopy Patient is to continue on the regular diet as tolerated Patient is to advance activity to include light cardio,light weights and no heavy lifting over 15 lbs for the next 1 weeks until seen in the office. Patient is to follow up with PCP in 1-2 week Patient is to RTC PRN. HIPOLITO Romero documented in this encounter Plan of Treatment Not on file documented as of this encounter Visit Diagnoses Diagnosis S/P cholecystectomy- Primary Other acquired absence of organ documented in this encounter Care Teams Air Route Controller Relationship Specialty Start Date End Date Kelly Roberts RN Station Baggage Agent 12/28/14 documented as of this encounter
--- OUTSIDE RECORDS SUMMARY | 2024-11-15 03:19 | XMS_ITS | Encounter Summary ---
Author Organization [facility] Address [address] [place] [address] Care Team Providers Care Tunnel Elastic Operator Lockstitch Name Role Phone Kelly Roberts RN Unavailable [phone] Reason for Visit * Auth/Cert - Closed Specialty Diagnoses / Procedures Referred By Contac t Referred To Contact Diagnoses Morbid obesity (HCC) Procedures LAPAROSCOPY LONGITUDINAL OR SLEEVE GASTRECTOMY Referral ID Status Reason Start Date Expiration Date Visits Re quested Visits Authorized [id number] Closed 1 1 Encounter Details Date Type Department Care Team (Latest Contact Info) Description 12/27/2014 5:41 AM BAD CREDIT COLLECTOR - 12/29/2014 12:06 PM BAD CREDIT COLLECTOR Hospital Encounter [facility] 2S SURG/BARIATRIC [address] [place] [address] [place] [address] [place] [address] Surgery General Discharge Disposition: Home [...] Comments Blood Pressure 126/78 12/29/2014 7:58 AM BAD CREDIT COLLECTOR Pulse 82 12/29/2014 7:58 AM BAD CREDIT COLLECTOR Temperature 37.1 ??C (98.8 ??F) 12/29/2014 7:58 AM CS T Respiratory Rate 16 12/29/2014 7:58 AM BAD CREDIT COLLECTOR Oxygen Saturation 93% 12/29/2014 7:58 AM BAD CREDIT COLLECTOR Inhaled Oxygen Concentration - - Weight 122.9 kg (271 lb) 12/27/2014 6:10 AM BAD CREDIT COLLECTOR Height 182.9 cm (6') 12/27/2014 6:10 AM BAD CREDIT COLLECTOR Body Mass Index 36.75 12/27/2014 6:10 AM BAD CREDIT COLLECTOR documented in this encounter Functional Status Functional [...] 11:31 PM CST Bariatric Surgery Discharge Summary [address] [address] Finesse Ramirez Admission weight: Weight: 271 lb (122.925 kg) (12/27/14 0610) Most recent weight: Weight: 271 lb (122.925 kg) (12/27/14 0610) 12/29/2014 [id number] Admitting Diagnosis: Clinically Severe Obesity with [...] stable Discharge Disposition: Home Rashawn Herring MD CREDIT COLLECTOR documented in this encounter Medications at Time [...] discharged. Cayla Almendarez RN 12/29/2014 12:06 PM CREDIT COLLECTOR * Suzette Wiley APRN-SUGAR - 12/29/2014 11:09 [...] injection 40 mg Recent Labs Component Name 12/29/1440812/28/1422512/14/14 0850 SODIUM 136 135* 138 POTASSIUM 3.7 3.6 3.9 CHLORIDE 105 102 105 CO2 27 27 26 BUN 12 11 15 CREATININE 0.89 1.12 0.75 GLUCOSE 83 134* 95 CALCIUM 8.0* 8.1* 8.7 Recent Labs Component Name 12/29/14408 12/11/15 0226 12/14/14 0850 WBC 9.1 10.9* 8.5 HGB [...] the office in 1 week Suzette Wiley, LABORER EGG PRODUCING FARM-EVENT MANAGEMENT CONSULTANT CREDIT COLLECTOR * Francia Rausch RN - 12/29/2014 3:08 AM CST Shift Summary: Pt pain managed with percoset. BP 94/50 at 2013 so evening labetalol and methyldopa medications held. Pt slept well during night. No c/o nausea. IV infusing. CREDIT COLLECTOR * Francia Rausch RN - 12/28/2014 7:33 PM CST Problem: Post-Op Bariatric Gastric Bypass Surgery Goal: Day of Surgery - PostOp Bariatric Bypass Surgery Outcome: Goal Met Date Met: 12/28/14 HEW * Cayla Almendarez RN - 12/28/2014 3:30 PM CST Shift Summary: Patient A&Ox4. Patient pain controlled. Tolerating diet well. Patient walking. IV infusing. Vital signs stable. Patient resting comfortably. Will continue to monitor patient. Cayla Almendarez RN 12/28/2014 3:30 PM CREDIT COLLECTOR * Rayray Blanchard MD - 12/28/2014 12:32 [...] is significant for Recent Labs Component Name 12/28/14 0226 12/14/14 0850 WBC 10.9* 8.5 HGB 13.0 12.7 [...] normal bowel sounds Extremities: no clubbing, cyanosis. 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 Alert and oriented x 3. Cranial nerves [...] op. Symptoms may improve with wt loss. CREDIT COLLECTOR * Grace Funes RD/VINNY - 12/28/2014 11:00 AM CST Nutrition: Nutrition consult completed. Bariatric diet education and nutrition guidelines per [facility] [place] discussed. See Education section for details CREDIT COLLECTOR * Kelly Roberts RN - 12/28/2014 10:35 AM CST Chart reviewed Case Management Initial Assessment Case Management screen completed, welcome letter given. Met with patient Lives with: +Spouse Family Support (name and phone): Extended Emergency Contact Information [facility] Relation: Spouse Secondary Emergency Contact: [facility] Mobile Relation: Mother Anticipated Discharge Date: Anticipated [...] For any questions or needs please contact: Life Insurance Agent Name/Phone number: Kelly Roberts RN Ascom [phone] pager [phone] CREDIT COLLECTOR * Suzette Wiley, LABORER EGG PRODUCING FARM-EVENT MANAGEMENT CONSULTANT - 12/28/2014 10:15 AM CST Bariatric Surgery Progress Note Finesse Ramirze Admit Date: 12/27/2014 5:41 AM Hospital Day: [...] CALCIUM 8.1* 8.7 Recent Labs Component Name 12/28/146 12/14/14 0850 WBC 10.9* 8.5 HGB 13.0 12.7 [...] and Dr. Herring to see Suzette Wiley, CÉSAR-EVENT MANAGEMENT CONSULTANT CREDIT COLLECTOR * Francia Rausch RN - 12/28/2014 3:46 AM CST Shift Summary: Pt c/o nausea, scheduled reglan and Scopolamine patch effective. Pain when swallowing, education given, roxicodone administered. Up to void in bathroom. Ambulated 1x around 6S halls, well tolerated. Abx infused. NPO at 0500 for gastrograffin. CREDIT COLLECTOR * Yenni Estrada RN - 12/27/2014 12:27 PM CST Pt also states only dilaudid works for me CREDIT COLLECTOR * Yenni Estrada RN - 12/27/2014 12:04 [...] at this time to help her relax. CREDIT COLLECTOR documented in this encounter H&P Notes * [...] including medical, exercise and dietary without intermediate card tender success. Pt has developed multiple comorbid conditions [...] network. The patient will experience successful and mcc weightloss when these components along with bariatric surgery are followed. The patient has had the above discussions with multiple program team members including surgeon, cruise counselor, bariatric nurse and mental health medical transcription supervisor. Impression: Morbid obesity with above listed comorbidities. Multiple failed diet attempts. Plan: L Sleeve Liquid Protein Diet: NoNo Weeks Traffic Rate Computer: Yes Additional Testing: no Comments: Limited incision, 6S, no hammonds, 2 day stay Robot candidate: no CREDIT COLLECTOR documented in this encounter Consult Notes * Cindy JonesIRIS - 12/27/2014 7:44 PM CSTAssociated Order(s): IP [...] including medical, exercise and dietary without intermediate card tender success. 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 Cranial nerves [...] placed in chart. CC: Rashawn Callaway MD CREDIT COLLECTOR documented in this encounter OR Notes * Operative - Rashawn Herring MD - 12/27/2014 8:59 AM CST [facility] Operative Report OPERATIVE REPORT PATIENT:Finesse [...] Laparoscopic sleeve gastrectomy SURGEON: Rashawn Herring MD STRIPPING SHOVEL OILER: Blanca Jenkins RN ANESTHESIA: General endotracheal. PROCEDURE: [...] sleeve diameter COMPLICATIONS: None. Rashawn Herring MD CREDIT COLLECTOR documented in this encounter Plan of Treatment Scheduled Orders Name Type Priority Associated Diagnoses Order Schedule INCENTIVE SPIROMETRY Respiratory Care Routine ONCE for 1 Occurrences starting 12/27/2014 until 12/27/2014 documented as of this encounter Procedures Procedure Name Priority Date/Time Associated Diagnosis Comments CARDIAC PROCEDURE ORDER 12/30/2014 8:34 PM BAD CREDIT COLLECTOR CARDIAC EKG ORDER 12/30/2014 8:3 4 PM BAD CREDIT COLLECTOR GLUCOSE - POINT OF CARE Routine 12/29/2014 10:36 AM BAD CREDIT COLLECTOR GLUCOSE - POINT OF CARE Routine 12/29/2014 6:10 AM BAD CREDIT COLLECTOR CBC W AUTO DIFFERENTIAL AM Draw 12/29/2014 4:09 AM BAD CREDIT COLLECTOR BASIC METABOLIC PANEL (CALCIUM TOTAL) AM Draw 12/29/2014 4:09 AM BAD CREDIT COLLECTOR GLUCOSE - POINT OF CARE Routine 12/29/2014 12:09 AM BAD CREDIT COLLECTOR GLUCOSE - POINT OF CARE Routine 12/28/2014 3:40 PM BAD CREDIT COLLECTOR GLUCOSE - POINT OF CARE Routine 12/28/2014 10:55 AM BAD CREDIT COLLECTOR FL FLUORO UPPER GI TRACT + KUB Routine 12/28/2014 8:15 AM BAD CREDIT COLLECTOR H/O laparoscopic partial gastrectomy HEMOGLOBIN A1C Routine 12/28/2014 2:26 AM BAD CREDIT COLLECTOR H/O laparoscopic partial gastrectomy Lumbar back pain History of gastric ulcer DJD (degenerative joint disease) Fatty liver disease, nonalcoholic Elevated cholesterol Hypertension Arthritis Morbid obesity (HCC) VITAMIN D 25-HYDROXY AM Draw 12/28/2014 2:26 AM BAD CREDIT COLLECTOR CBC W AUTO DIFFERENTIAL AM Draw 12/28/2014 2:26 AM BAD CREDIT COLLECTOR BASIC METABOLIC PANEL (CALCIUM TOTAL) AM Draw 12/28/2014 2:26 AM BAD CREDIT COLLECTOR TSH AM Draw 12/28/2014 2:26 AM BAD CREDIT COLLECTOR H/O laparoscopic partial gastrectomy Lumbar back pain History of gastric ulcer DJD (degenerative joint disease) Fatty liver disease, nonalcoholic Elevated cholesterol Hypertension Arthritis Morbid obesity (HCC) GLUCOSE - POINT OF CARE Routine 12/27/2014 10:26 PM BAD CREDIT COLLECTOR GLUCOSE - POINT OF CARE Routine 12/27/2014 9:27 AM BAD CREDIT COLLECTOR LAPAROSCOPIC GASTRECTOMY (LONGITUDINAL/SLEEVE) 12/27/2014 7:30 AM BAD CREDIT COLLECTOR Morbid obesity (HCC) HCG URINE QUALITATIVE - POINT OF CARE STAT 12/27/2014 6:20 AM BAD CREDIT COLLECTOR documented in this encounter Results * CARDIAC PROCEDURE ORDER (12/30/2014 8:34 PM BAD CREDIT COLLECTOR) Narrative 12/30/2014 8:34 PM BAD CREDIT COLLECTOR Ordered by an unspecified provider. Scanned Document CARDIAC SERVICES ORD ERABLES * CARDIAC EKG ORDER (12/30/2014 8:34 PM BAD CREDIT COLLECTOR) Narrative 12/30/2014 8:34 PM BAD CREDIT COLLECTOR Ordered by an unspecified provider. Scanned Document CARDIAC SERVICES ORD ERABLES * GLUCOSE - POINT OF CARE (12/29/2014 10:36 AM BAD CREDIT COLLECTOR) Glucose WB/POC 87 70 - 106 mg/dL 12/29/2014 12:59 PM BAD CREDIT COLLECTOR [facility] Blood BLOOD SPECIMEN / Unknown 12/29/2014 10:36 AM BAD CREDIT COLLECTOR 12/29/2014 12:59 PM BAD CREDIT COLLECTOR Rashawn Herring MD LAB - POINT OF CARE ORDERABLES Performing Organization Address City/[facility]/ZIP Co de Phone Number [facility] [id number] [place] [address] [phone] * GLUCOSE - POINT OF CARE (12/29/2014 6:10 AM BAD CREDIT COLLECTOR) Glucose WB/POC 74 70 - 106 mg/dL 12/29/2014 6:27 AM BAD CREDIT COLLECTOR [facility] Blood BLOOD SPECIMEN / Unknown 12/29/2014 6:10 AM BAD CREDIT COLLECTOR 12/29/2014 6:27 AM BAD CREDIT COLLECTOR Rashawn Herring MD LAB - POINT OF CARE ORDERABLES Performing Organization Address [facility] Co de Phone Number [facility] [address] [place] [address] * (ABNORMAL) BASIC METABOLIC PANEL (CALCIUM TOTAL) (12/29/2014 4:09 AM BAD CREDIT COLLECTOR) Glucose 83 74 - 106 mg/dL 12/29/2014 5:48 AM BAD CREDIT COLLECTOR [facility] Sodium 136 136 - 145 mmol/L 12/29/2014 5:48 AM [facility] Potassium 3.7 3.5 - 5.1 mmol/L 12/29/2014 5:48 AM [facility] Chloride 105 98 - 107 mmol/L 12/29/2014 5:48 AM BAD CREDIT COLLECTOR [facility] CO2 27 22 - 31 mmol/L 12/29/2014 5:48 AM [facility] Calcium 8.0(L) 8.5 - 10.1 mg/dL 12/29/2014 5:48 AM [facility] Anion Gap 4(L) 5 - 15 mmol/L 12/29/2014 5:48 AM [facility] BUN 12 7 - 21 mg/dL 12/29/2014 5:48 AM [facility] Creatinine 0.89 0.50 - 1.30 mg/dL 12/29/2014 5:48 AM [facility] eGFR by MDRD >60 >60 mL/min/1.7 3m2 12/29/2014 5:48 AM [facility] eGFR by MDRD >60 >60 mL/min/1.7 3m2 12/29/2014 5:48 AM [facility] Blood BLOOD SPECIMEN / Unknown 12/29/2014 4:09 AM BAD CREDIT COLLECTOR 12/29/2014 5:22 AM BAD CREDIT COLLECTOR Rashawn Herring MD LAB - CHEMISTRY PALMA GARRIDO [facility] Organization Address City/State/ZIP Co de Phone Number [facility] [address] [place] [address] * (ABNORMAL) CBC W AUTO DIFFERENTIAL (12/29/2014 4:09 AM BAD CREDIT COLLECTOR) WBC 9.1 4.4 - 10.7 x10^9/L 12/29/2014 5:32 AM [facility] RBC 3.65(L) 3.80 - 5.20 x10^12/L 12/29/2014 5:32 AM [facility] Hemoglobin 11.1(L) 12.0 - 15.6 gm/dL 12/29/2014 5:32 AM [facility] Hematocrit 33.3(L) 35.9 - 45.5 % 12/29/2014 5:32 AM [facility] MCV 91.2 80.7 - 98.3 fl 12/29/2014 5:32 AM [facility] MCH 30.4 26.7 - 34.0 pg 12/29/2014 5:32 AM [facility] MCHC 33.3 30.8 - 35.9 gm/dL 12/29/2014 5:32 AM [facility] Platelet Count 186 153 - 416 x10^9/L 12/29/2014 5:32 AM [facility] RDW-CV 13.4 12.1 - 14.9 % 12/29/2014 5:32 AM [facility] MPV 11.2 9.4 - 12.9 fl 12/29/2014 5:32 AM [facility] Neutrophils % 56.3 44.0 - 73.0 % 12/29/2014 5:32 AM [facility] Lymphocytes % 30.5 20.0 - 43.0 % 12/29/2014 5:32 AM [facility] Monocytes % 11.6 5.0 - 13.0 % 12/29/2014 5:32 AM [facility] Eosinophils % 1.0 0.0 - 6.0 % 12/29/2014 5:32 AM [facility] Basophils % 0.2 0.0 - 2.0 % 12/29/2014 5:32 AM [facility] Immature Granulocytes 0.4 0 - 1 % 12/29/2014 5:32 AM [facility] Neutrophil Absolute 5.11 2.01 - 7.14 x10^9/L 12/29/2014 5:32 AM [facility] Lymphocytes Absolute 2.77 1.07 - 3.94 x10^9/L 12/29/2014 5:32 AM [facility] Monocytes Absolute 1.05 0.26 - 1.07 x10^9/L 12/29/2014 5:32 AM [facility] Eosinophils Absolute 0.09 0 - 0.47 x10^9/L 12/29/2014 5:32 AM [facility] Basophils Absolute 0.02 0 - 0.08 x10^9/L 12/29/2014 5:32 AM [facility] Immature Granulocytes Absolute 0.04 0.00 - 0.06 x10^9/L 12/29/2014 5:32 AM [facility] Blood BLOOD SPECIMEN / Unknown 12/29/2014 4:09 AM BAD CREDIT COLLECTOR 12/29/2014 5:22 AM BAD CREDIT COLLECTOR Rashawn Herring MD LAB - HEMATOLOGY ORD ERABLES [facility] [address] [place] [address] * GLUCOSE - POINT OF CARE (12/29/2014 12:09 AM BAD CREDIT COLLECTOR) Glucose WB/POC 78 70 - 106 mg/dL 12/29/2014 5:56 AM BAD CREDIT COLLECTOR [facility] Blood BLOOD SPECIMEN / Unknown 12/29/2014 12:09 AM BAD CREDIT COLLECTOR 12/29/2014 5:56 AM BAD CREDIT COLLECTOR Rashawn Herring MD LAB - POINT OF CARE ORDERABLES Performing Organization Address [facility] Co de Phone Number [facility] [id number] [place] [phone] * GLUCOSE - POINT OF CARE (12/28/2014 3:40 PM BAD CREDIT COLLECTOR) Glucose WB/POC 79 70 - 106 mg/dL 12/28/2014 8:25 PM BAD CREDIT COLLECTOR [facility] Blood BLOOD SPECIMEN / Unknown 12/28/2014 3:40 PM BAD CREDIT COLLECTOR 12/28/2014 8:25 PM BAD CREDIT COLLECTOR Rashawn Herring MD LAB - POINT OF CARE ORDERABLES Performing Organization Address [facility] de Phone Number [facility] [address] [place] [phone] * GLUCOSE - POINT OF CARE (12/28/2014 10:55 AM BAD CREDIT COLLECTOR) Glucose WB/POC 93 70 - 106 mg/dL 12/28/2014 1:43 PM BAD CREDIT COLLECTOR [facility] Blood BLOOD SPECIMEN / Unknown 12/28/2014 10:55 AM BAD CREDIT COLLECTOR 12/28/2014 1:43 PM BAD CREDIT COLLECTOR Rashawn Herring MD LAB - POINT OF CARE ORDERABLES Performing Organization Address [facility] de Phone Number [facility] [phone] [place] [phone] * FL FLUORO UPPER GI TRACT + KUB (12/28/2014 8:15 AM BAD CREDIT COLLECTOR) Anatomical Region Laterality Modality Abdomen Radiographic Lindsay ging 12/28/2014 3:00 PM BAD CREDIT COLLECTOR Impressions 12/28/2014 3:00 PM BAD CREDIT COLLECTOR No evidence of leak or obstruction. Narrative 12/28/2014 3:00 PM BAD CREDIT COLLECTOR Fluoroscopic upper GI with KUB Indication: Morbid [...] ORDERABL ES * TSH (12/28/2014 2:26 AM BAD CREDIT COLLECTOR) TSH 1.27 0.358 - 3.740 uIU/mL 12/28/2014 3:03 AM BAD CREDIT COLLECTOR [facility] Blood BLOOD SPECIMEN / Unknown 12/28/2014 2:26 AM BAD CREDIT COLLECTOR 12/28/2014 2:34 AM BAD CREDIT COLLECTOR Cindy Jones PA-C LAB - CHEMISTRY PALMA GARRIDO Performing Organization Address [facility] Co de Phone Number [facility] [address] [place] [address] * HEMOGLOBIN A1C (12/28/2014 2:26 AM BAD CREDIT COLLECTOR) Hemoglobin A1c 5.5 4.2 - 6.3 % 12/28/2014 2:59 AM BAD CREDIT COLLECTOR [facility] Estimated Average Glucose 111 mg/dL 12/28/2014 2:59 AM BAD CREDIT COLLECTOR [facility] Whole Blood BLOOD SPECIMEN WITH EDTA / Unknown 12/28/2014 2:26 AM BAD CREDIT COLLECTOR 12/28/2014 2:34 AM BAD CREDIT COLLECTOR Cindy Jones PA-C LAB - CHEMISTRY PALMA GARRIDO Performing Organization Address [facility]/ZIP Co de Phone Number [facility] [address] [place] [address] * (ABNORMAL) VITAMIN D 25-HYDROXY (12/28/2014 2:26 AM BAD CREDIT COLLECTOR) Pathologist [facility] Vitamin D, 25 Hydroxy 21.41(L) 30 - 100 ng/mL 12/28/2014 11:50 AM [facility] Blood BLOOD SPECIMEN / Unknown 12/28/2014 2:26 AM BAD CREDIT COLLECTOR 12/28/2014 2:34 AM BAD CREDIT COLLECTOR Narrative [facility] - 12/28/2014 11:50 AM BAD CREDIT COLLECTOR Vitamin D Status: ?Deficiency ? <20 ? ng/mL ?Insufficiency ?? 20-30 ??ng/mL ?Sufficiency ? 30-100 ng/mL ?Toxicity ? >100 ?ng/mL Rashawn Herring MD LAB - CHEMISTRY PALMA Laura Organization Address [facility] de Phone Number [facility] [address] [place] [address] * (ABNORMAL) BASIC METABOLIC PANEL (CALCIUM TOTAL) (12/28/2014 2:26 AM BAD CREDIT COLLECTOR) Pathologist [facility] Glucose 134(H) 74 - 106 mg/dL 12/28/2014 2:57 AM [facility] Sodium 135(L) 136 - 145 mmol/L 12/28/2014 2:57 AM [facility] Potassium 3.6 3.5 - 5.1 mmol/L 12/28/2014 2:57 AM [facility] Chloride 102 98 - 107 mmol/L 12/28/2014 2:57 AM [facility] CO2 27 22 - 31 mmol/L 12/28/2014 2:57 AM [facility] Calcium 8.1(L) 8.5 - 10.1 mg/dL 12/28/2014 2:57 AM BAD CREDIT COLLECTOR [facility] Anion Gap 6 5 - 15 mmol/L 12/28/2014 2:57 AM [facility] BUN 11 7 - 21 mg/dL 12/28/2014 2:57 AM [facility] Creatinine 1.12 0.50 - 1.30 mg/dL 12/28/2014 2:57 AM [facility] eGFR by MDRD 53(L) >60 mL/min/1.7 3m2 12/28/2014 2:57 AM [facility] eGFR by MDRD >60 >60 mL/min/1.7 3m2 12/28/2014 2:57 AM [facility] Blood BLOOD SPECIMEN / Unknown 12/28/2014 2:26 AM BAD CREDIT COLLECTOR 12/28/2014 2:34 AM BAD CREDIT COLLECTOR Rashawn Herring MD LAB - CHEMISTRY PALMA GARRIDO [facility] Organization Address City/State/ZIP Co de Phone Number [facility] [address] [place] [address] * (ABNORMAL) CBC W AUTO DIFFERENTIAL (12/28/2014 2:26 AM BAD CREDIT COLLECTOR) WBC 10.9(H) 4.4 - 10.7 x10^9/L 12/28/2014 2:40 AM [facility] RBC 4.23 3.80 - 5.20 x10^12/L 12/28/2014 2:40 AM [facility] Hemoglobin 13.0 12.0 - 15.6 gm/dL 12/28/2014 2:40 AM [facility] Hematocrit 38.3 35.9 - 45.5 % 12/28/2014 2:40 AM [facility] MCV 90.5 80.7 - 98.3 fl 12/28/2014 2:40 AM [facility] MCH 30.7 26.7 - 34.0 pg 12/28/2014 2:40 AM [facility] MCHC 33.9 30.8 - 35.9 gm/dL 12/28/2014 2:40 AM [facility] Platelet Count 243 153 - 416 x10^9/L 12/28/2014 2:40 AM [facility] RDW-CV 13.0 12.1 - 14.9 % 12/28/2014 2:40 AM [facility] MPV 10.8 9.4 - 12.9 fl 12/28/2014 2:40 AM [facility] Neutrophils % 80.9(H) 44.0 - 73.0 % 12/28/2014 2:40 AM [facility] Lymphocytes % 13.6(L) 20.0 - 43.0 % 12/28/2014 2:40 AM [facility] Monocytes % 5.0 5.0 - 13.0 % 12/28/2014 2:40 AM [facility] Eosinophils % 0.0 0.0 - 6.0 % 12/28/2014 2:40 AM [facility] Basophils % 0.1 0.0 - 2.0 % 12/28/2014 2:40 AM [facility] Immature Granulocytes 0.4 0 - 1 % 12/28/2014 2:40 AM [facility] Neutrophil Absolute 8.81(H) 2.01 - 7.14 x10^9/L 12/28/2014 2:40 AM [facility] Lymphocytes Absolute 1.48 1.07 - 3.94 x10^9/L 12/28/2014 2:40 AM [facility] Monocytes Absolute 0.54 0.26 - 1.07 x10^9/L 12/28/2014 2:40 AM [facility] Eosinophils Absolute 0.00 0 - 0.47 x10^9/L 12/28/2014 2:40 AM [facility] Basophils Absolute 0.01 0 - 0.08 x10^9/L 12/28/2014 2:40 AM [facility] Immature Granulocytes Absolute 0.04 0.00 - 0.06 x10^9/L 12/28/2014 2:40 AM [facility] Blood BLOOD SPECIMEN / Unknown 12/28/2014 2:26 AM BAD CREDIT COLLECTOR 12/28/2014 2:34 AM [facility] Rashawn Herring MD LAB - HEMATOLOGY ORD ERABLES [facility] [address] [place] [address] * (ABNORMAL) GLUCOSE - POINT OF CARE (12/27/2014 10:26 PM BAD CREDIT COLLECTOR) Glucose WB/POC 133(H) 70 - 106 mg/dL 12/27/2014 10:31 PM BAD CREDIT COLLECTOR [facility] Blood BLOOD SPECIMEN / Unknown 12/27/2014 10:26 PM BAD CREDIT COLLECTOR 12/27/2014 10:31 PM BAD CREDIT COLLECTOR Rashawn Herring MD LAB - POINT OF CARE ORDERABLES Performing Organization Address [facility] Co de Phone Number [facility] [address] [place] [address] * (ABNORMAL) GLUCOSE - POINT OF CARE (12/27/2014 9:27 AM BAD CREDIT COLLECTOR) Glucose WB/POC 136(H) 70 - 106 mg/dL 12/27/2014 10:08 AM BAD CREDIT COLLECTOR [facility] Blood BLOOD SPECIMEN / Unknown 12/27/2014 9:27 AM BAD CREDIT COLLECTOR 12/27/2014 10:08 AM BAD CREDIT COLLECTOR Rashawn Herring MD LAB - POINT OF CARE ORDERABLES Performing Organization Address [facility] de Phone Number [facility] [address] [place] [address] * HCG URINE QUALITATIVE - POINT OF CARE (IP) (12/27/2014 6:20 AM BAD CREDIT COLLECTOR) HCG Qual Urine Negative Negative [facility] POCT TESTING QC Verified Yes Yes [facility] POC T TESTING Urine specimen (specimen) URINE / Unknown 12/27/2014 6:20 AM BAD CREDIT COLLECTOR Narrative Authorizing Provider Result Allen Herring MD LAB - POINT OF CARE ORDERABLES Performing Organization Address [facility] de Phone Number [facility]CT [facility] [id number] [place] [id number] documented in this encounter Visit [...] obesity (HCC) Morbid obesity Tachycardia Tachycardia, unspecified documented in this encounter Administered Medications Inactive Administered Medications - up to 3 most recent administrations Medication Order MAR Action Action Date Dose Rate Site 0.45% NaCl with potassium chloride 20meq infusion at 150 mL/hr, Intravenous, CONTINUOUS, Starting on Fri12/27/14 at 1800, Until Fri12/29/14 at 1307, Do not infuse at same time as other fluids., Post-op $ New Bag/Syringe 12/28/2014 9:24 PM BAD CREDIT COLLECTOR 150 mL/hr $ New Bag/Syringe 12/28/2014 6:33 AM BAD CREDIT COLLECTOR 150 mL /hr $ New Bag/Syringe 12/27/2014 6:22 PM BAD CREDIT COLLECTOR 150 mL /hr buPROPion SR 12hr (WELLBUTRIN-SR) tablet 150 mg 150 mg, Oral, DAILY, First dose on Fri12/28/14 at 0900, Until Discontinued, Do not crush, chew, or cut in half. $ Given 12/29/2014 8:18 AM BAD CREDIT COLLECTOR 150 mg $ Given 12/28/2014 11:08 AM BAD CREDIT COLLECTOR 150 mg ceFAZolin (ANCEF) IVPB 3 g 3 g, at 200 mL/hr, Intravenous, EVERY 8 HOURS, 2 doses, First dose on Fri12/27/14 at 1800, Last dose on Fri12/28/14 at 0200, If patient weighs less than 120 kg. Use 2 grams of cefazolin (Ancef). Administer last dose within 24 hours of the close of surgical incision., Post-op $ Given 12/28/2014 2:01 AM BAD CREDIT COLLECTOR 3 g 200 mL/hr $ Given 12/27/2014 6:21 PM BAD CREDIT COLLECTOR 3 g 200 mL/hr dextrose 5 % 500 mL with M.V.I. (MVI adult) 10 mL infusion 125 mL/hr, Intravenous, DAILY, First dose on Fri12/27/14 at 2000, Until Discontinued, To be run over 4 hours. Do not infuse at same time as other IV fluids., Post-op $ Given 12/29/2014 8:17 AM BAD CREDIT COLLECTOR 125 mL/hr 125 mL/hr $ Given 12/28/2014 11:08 AM BAD CREDIT COLLECTOR 125 mL/hr 125 mL/hr $ Given 12/27/2014 9:39 PM BAD CREDIT COLLECTOR 125 mL/hr 125 mL/hr famotidine (PEPCID) injection 20 mg 20 mg, Intravenous, PRE-OP ONCE, 1 dose, On Fri12/27/14 at 0612, Give morning of surgery., Pre-op $ Given 12/27/2014 6:38 AM BAD CREDIT COLLECTOR 20 mg fentaNYL (SUBLIMAZE) injection 50 mcg 50 mcg, Intravenous, EVERY 10 MIN PRN, Severe Pain, 4 doses, Starting on Fri12/27/14 at 1111, Until Fri12/27/14 at 1147, Maximum total of 4 doses If patient reaches max total dose, please consult anesthesiologist prior to further administration of pain meds. Hold pain meds if there are signs of hypoventilation., PACU $ Given 12/27/2014 11:47 AM BAD CREDIT COLLECTOR 50 mcg $ Given 12/27/2014 11:10 AM BAD CREDIT COLLECTOR 50 mcg $ Given 12/27/2014 10:36 AM BAD CREDIT COLLECTOR 50 mcg heparin injection 5,000 Units 5,000 Units, Subcutaneous, PRE-OP ONCE, 1 dose, On Fri12/27/14 at 0612, Pre-op $ Given 12/27/2014 6:38 AM BAD CREDIT COLLECTOR 5,000 Units Abdominal Tissue heparin injection 5,000 Units 5,000 Units, Subcutaneous, 2 TIMES DAILY, First dose on Fri12/27/14 at 2100, Until Discontinued, Post-op $ Given 12/28/2014 9:18 PM BAD CREDIT COLLECTOR 5,000 Units Abdominal Tissue $ Given 12/28/2014 8:47 AM BAD CREDIT COLLECTOR 5,000 Units A bdominal Tissue $ Given 12/27/2014 9:54 PM BAD CREDIT COLLECTOR 5,000 Units A bdominal Tissue HYDROmorphone PF (DILAUDID) injection 0.2 mg 0.2 mg, Intravenous, EVERY 15 MIN PRN, Moderate Pain, 5 doses, Starting on Fri12/27/14 at 1203, Until Fri12/27/14 at 1315, Maximum total of 5 doses If patient reaches max total dose, please consult anesthesiologist prior to further administration of pain meds. Hold pain meds if there are signs of hypoventilation., PACU $ Given 12/27/2014 1:15 PM BAD CREDIT COLLECTOR 0.2 mg $ Given 12/27/2014 1:00 PM BAD CREDIT COLLECTOR 0.2 mg $ Given 12/27/2014 12:49 PM BAD CREDIT COLLECTOR 0.2 mg HYDROmorphone PF (DILAUDID) injection 0.5 mg 0.5 mg, Intravenous, EVERY 10 MIN PRN, Severe Pain, 4 doses, Starting on Fri12/27/14 at 1203, Until Fri12/27/14 at 1753, Maximum total of 4 doses If patient reaches max total dose, please consult anesthesiologist prior to further administration of pain meds. Hold pain meds if there are signs of hypoventilation., PACU $ Given 12/27/2014 3:10 PM BAD CREDIT COLLECTOR 0.5 mg $ Given 12/27/2014 2:10 PM BAD CREDIT COLLECTOR 0.5 mg HYDROmorphone PF (DILAUDID) injection 1 mg 1 mg, Intravenous, ONCE, 1 dose, On Fri12/27/14 at 2014 $ Given 12/28/2014 6:47 AM BAD CREDIT COLLECTOR 1 mg iohexol (OMNIPAQUE 350) contrast Oral, CONTRAST ONCE, Starting on Fri12/28/14 at 0754, Until Carisa 12/29/14 at 1307 $ Given - Contrast 12/28/2014 8:22 AM BAD CREDIT COLLECTOR 50 mL ketorolac (TORADOL) injection 15 mg 15 mg, Intravenous, ONCE, 1 dose, On Fri12/28/14 at 1045 $ Given 12/28/2014 11:17 AM BAD CREDIT COLLECTOR 15 mg labetalol (NORMODYNE; TRANDATE) tablet 100 mg 100 mg, Oral, 3 TIMES DAILY, First dose on Fri12/28/14 at 0900, Until Discontinued, Hold SBP<110 $ Given 12/28/2014 11:07 AM BAD CREDIT COLLECTOR 100 mg lactated ringers infusion at 20 mL/hr, Intravenous, PRE-OP CONTINUOUS, Starting on Fri12/27/14 at 0615, Until Fri12/27/14 at 1753, Pre-op $ New Bag/Syringe 12/27/2014 8:55 AM BAD CREDIT COLLECTOR $ New Bag/Syringe 12/27/2014 6:38 AM BAD CREDIT COLLECTOR 20 mL/ hr lactated ringers iv bolus 500 mL, Administer over 120 Minutes, ONCE, 1 dose, On Fri12/28/14 at 0715 $ Given 12/28/2014 8:47 AM BAD CREDIT COLLECTOR 500 mL lidocaine buffered 1 % injection Infiltration, PRE-OP MULTIPLE, 3 doses, Starting on Fri12/27/14 at 0612, Until Fri12/27/14 at 1753, May be used (0.2 ml locally to anesthetize prior to insertion if patient has NKA to Lidocaine)., Pre-op $ Given 12/27/2014 6:38 AM BAD CREDIT COLLECTOR 0.5 mL methyldopa (ALDOMET) tablet 500 mg 500 mg, Oral, 2 TIMES DAILY, First dose on Fri12/28/14 at 0900, Until Discontinued, Hold for SBP<110 $ Given 12/28/2014 11:07 AM BAD CREDIT COLLECTOR 500 mg metoclopramide (REGLAN) injection 10 mg 10 mg, Intravenous, EVERY 6 HOURS, First dose on Fri12/27/14 at 1945, Until Discontinued $ Given 12/29/2014 8:18 AM BAD CREDIT COLLECTOR 10 mg $ Given 12/29/2014 3:28 AM BAD CREDIT COLLECTOR 10 mg $ Given 12/28/2014 9:20 PM BAD CREDIT COLLECTOR 10 mg midazolam (VERSED) injection 1 mg 1 mg, Intravenous, POST-OP MULTIPLE, 2 doses, Starting on Fri12/27/14 at 1211, Until Fri12/27/14 at 1753, IV every 10 minutes X 2 doses for anxiety., PACU $ Given 12/27/2014 12:00 PM BAD CREDIT COLLECTOR 1 mg ondansetron (disintegrating) (ZOFRAN ODT) tablet 4 mg 4 mg, Oral, PRE-OP ONCE, 1 dose, On Fri12/27/14 at 0612, Pre-op $ Given 12/27/2014 6:37 AM BAD CREDIT COLLECTOR 4 mg ondansetron (ZOFRAN) injection 4 mg 4 mg, Intravenous, ONCE, 1 dose, On Fri12/27/14 at 1645 $ Given 12/27/2014 4:42 PM BAD CREDIT COLLECTOR 4 mg oxyCODONE (ROXICODONE) oral solution 10 mg 10 mg, Oral, EVERY 4 HOURS PRN, Moderate Pain, Starting on Fri12/28/14 at 1230, Until Carisa 12/29/14 at 1307 $ Given 12/29/2014 9:31 AM BAD CREDIT COLLECTOR 10 mg $ Given 12/29/2014 4:15 AM BAD CREDIT COLLECTOR 10 mg $ Given 12/29/2014 12:17 AM BAD CREDIT COLLECTOR 10 mg oxyCODONE (ROXICODONE) oral solution 5 mg 5 mg, Oral, EVERY 4 HOURS PRN, Moderate Pain, Starting on Fri12/27/14 at 1821, Until Fri12/28/14 at 1230 $ Given 12/28/2014 8:47 AM BAD CREDIT COLLECTOR 5 mg $ Given 12/28/2014 4:47 AM BAD CREDIT COLLECTOR 5 mg $ Given 12/27/2014 11:19 PM BAD CREDIT COLLECTOR 5 mg pantoprazole (PROTONIX) injection 40 mg 40 mg, Intravenous, DAILY, First dose on Fri12/27/14 at 2030, Until Discontinued, Reconstitue with 10 ml of NS to concentration of 4 mg/ml and administer ordered dose over 2 minutes. $ Given 12/29/2014 8:18 AM BAD CREDIT COLLECTOR 40 mg $ Given 12/28/2014 8:47 AM BAD CREDIT COLLECTOR 40 mg $ Given 12/27/2014 9:36 PM BAD CREDIT COLLECTOR 40 mg scopolamine (TRANSDERM-SCOP) 1.5 MG patch 1.5 mg 1.5 mg, Administer over 72 Hours, EVERY [...] of patch location upon arrival to MRI. $ Applied 12/27/2014 7:22 PM BAD CREDIT COLLECTOR 1.5 mg Behind Right Ear documented in this encounter Active and Recently Administered Medications Times are shown in BAD CREDIT COLLECTOR. Scheduled Medication Order 12/27/2014 12/28/2014 12/29/2014 acetaminophen (TYLENOL) solution 500 mg(Linked Group 1) 500 mg, Oral, EVERY 4 HOURS, First dose on Fri12/27/14 at 1830, Until Discontinued, Use acetaminophen for mild pain or hydrocodone/acetamino phen for moderate pain every 4 hours scheduled., Post-op 1816 (See Alternative - Provider: Natalie Ignacio, CHEY)2230 (Not Administered - Provider: Angelita Burgos RN [...] 0749 ($ Given - Provider: Lemuel Paulson APRN-[facility]) ceFAZolin (ANCEF) IVPB 3 g (COMPLETED) 3 g, at 200 mL/hr, Intravenous, EVERY 8 HOURS, 2 doses, First dose on Fri12/27/14 at 1800, Last dose on Fri12/28/14 at 0200, If patient weighs less than 120 kg. Use 2 grams of cefazolin (Ancef). Administer last dose within 24 hours of the close of surgical incision., Post-op 1821 ($ Given - Provider: Natalie Ignacio, CHEY)1851 (Rx Stopped - Provider: Natalie Ignacio RN) 0201 ($ Given - Provider: Francia Rausch RN)0231 (Rx Stopped - Provider: Francia Rausch RN) dextrose 5 % 500 mL with M.V.I. (MVI adult) 10 mL infusion (CANCELED) 125 mL/hr, Intravenous, DAILY, First dose on Fri12/27/14 at 2000, Until Discontinued, To be run over 4 hours. Do not infuse at same time as other IV fluids., Post-op 213 ($ Given - Provider: Francia Rausch RN) 1108 ($ Given - Provider: Cayla Almendarez, CHEY) 0817 ($ Given - Provider: Cayla Almendarez, CHYE) famotidine (PEPCID) injection 20 mg (COMPLETED) 20 mg, Intravenous, PRE-OP ONCE, 1 dose, On Fri12/27/14 at 0612, Give morning of surgery., Pre-op 06 ($ Given - Provider: Comfort Wong, RN) heparin injection 5,000 Units (COMPLETED) 5,000 Units, Subcutaneous, PRE-OP ONCE, 1 dose, On Fri12/27/14 at 0612, Pre-op 06 ($ Given - Provider: Comfort Wong RN) heparin injection 5,000 Units (CANCELED) 5,000 Units, Subcutaneous, 2 TIMES DAILY, First dose on Fri12/27/14 at 2100, Until Discontinued, Post-op 215 ($ Given - Provider: Francia Rausch RN) [...] ONCE, Starting on Fri12/28/14 at 0754, Until Carisa 12/29/14 at 1307 0822 ($ Given - Contrast [...] Pre-op 0638 ($ Given - Provider: Comfort Wong, CHEY) methyldopa (ALDOMET) tablet 500 mg (CANCELED) 500 [...] Discontinued 1921 ($ Given - Provider: Concepcion Biswas, RN) 0158 ($ Given - Provider: Francia Rausch RN)0626 ($ Given - Provider: Francia Rausch RN)1333 ($ Given - Provider: Cayla Almendarez, CHEY)2120 ($ Given - Provider: Francia Rausch, CHEY) 0328 ($ Given - Provider: Francia Rausch RN)0818 ($ Given - Provider: Cayla Almendarez RN) midazolam (VERSED) injection 1 mg (CANCELED) 1 mg, Intravenous, POST-OP MULTIPLE, 2 doses, Starting on Fri12/27/14 at 1211, Until Fri12/27/14 at 1753, IV every 10 minutes X 2 doses for anxiety., PACU 1200 ($ Given - Provider: Yenni Estrada, RN) ondansetron (disintegrating) (ZOFRAN ODT) tablet 4 mg (COMPLETED) 4 mg, Oral, PRE-OP ONCE, 1 dose, On e 12/27/14 at 0612, Pre-op 0637 ($ Given - Provider: Comfort Wong, RN) ondansetron (ZOFRAN) injection 4 mg (COMPLETED) 4 mg, Intravenous, ONCE, 1 dose, On Fri12/27/14 at 1645 1642 ($ Given - Provider: Bre Palmer, CHEY) pantoprazole (PROTONIX) injection 40 mg (CANCELED) 40 mg, Intravenous, DAILY, First dose on Fri12/27/14 at 2030, Until Discontinued, Reconstitue with 10 ml of NS to concentration of 4 mg/ml and administer ordered dose over 2 minutes. 2136 ($ Given - Provider: Francia Rausch, CHEY) 0847 ($ Given - Provider: Cayla Almendarez, CHEY) 0818 ($ Given - Provider: Cayla Almendarez, CHEY) sucralfate (CARAFATE) suspension 1 g 1 g, Oral, 4 TIMES DAILY - BEFORE MEALS AND AT BEDTIME, First dose on Carisa 12/29/14 at 1100, Until Discontinued, Shake well before using. 1100 (Due) Continuous Medication Order 12/27/2014 12/28/2014 12/29/2014 0.45% NaCl with potassium chloride 20meq infusion (CANCELED) at 150 mL/hr, Intravenous, CONTINUOUS, Starting on Fri12/27/14 at 1800, Until Carisa 12/29/14 at 1307, Do not infuse at same time as other fluids., Post-op 1822 ($ New Bag/Syringe - Provider: Natalie Ignacio, CHEY) 0633 ($ New Bag/Syringe - Provider: Francia Rausch, CHEY)2124 ($ New Bag/Syringe - Provider: Francia Rausch RN) lactated ringers infusion (CANCELED) at 20 mL/hr, Intravenous, PRE-OP CONTINUOUS, Starting on Fri12/27/14 at 0615, Until Fri12/27/14 at 1753, Pre-op 0638 ($ New Bag/Syringe - Provider: Comfort Wong RN)0855 ($ New Bag/Syringe - Provider: Lemuel Paulson APRN-[facility])0915 (Anesthesia Volume Adjustment - Provider: Lemuel Paulson APRN-[facility]) PRN Medication Order 12/27/2014 12/28/2014 12/29/2014 0.9% NaCl injection (CANCELED) PRN, Starting on Fri12/27/14 at 0954, Until Fri12/27/14 at 0956, Intra-op 0830 ($ Given - Provider: Rashawn Herring MD) 0.9% nacl irrigation solution (CANCELED) PRN, Starting on Fri12/27/14 at 0954, Until Fri12/27/14 at 0956, Intra-op 0900 ($ Given - Provider: Rashawn Herring MD) bupivacaine liposome (EXPAREL) 1.3 % injection (CANCELED) PRN, Starting on Fri12/27/14 at 0830, Until Fri12/27/14 at 0956, Intra-op 0830 ($ Given - Provider: Rashawn Herring MD - Comment: mixed w/40 ml NS PF) fentaNYL (SUBLIMAZE) injection 50 mcg (COMPLETED) 50 mcg, Intravenous, EVERY 10 MIN PRN, Severe Pain, 4 doses, Starting on Fri12/27/14 at 1111, Until Fri12/27/14 at 1147, Maximum total of 4 doses If patient reaches max total dose, please consult anesthesiologist prior to further administration of pain meds. Hold pain meds if there are signs of hypoventilation., PACU 1005 ($ Given - Provider: Yenni Estrada RN)1036 ($ Given - Provider: Yenni Estrada RN)1110 ($ Given - Provider: Meño Pastrana, RN)1147 ($ Given - Provider: Meño Pastrana, CHEY) HYDROmorphone PF (DILAUDID) injection 0.2 mg (COMPLETED) 0.2 mg, Intravenous, EVERY 15 MIN PRN, Moderate Pain, 5 doses, Starting on 12/27/14 at 1203, Until 12/27/14 at 1315, Maximum total of 5 doses If patient reaches max total dose, please consult anesthesiologist prior to further administration of pain meds. Hold pain meds if there are signs of hypoventilation., PACU 1216 ($ Given - Provider: Yenni Estrada RN)1231 ($ Given - Provider: Yenni Estrada RN)1249 ($ Given - Provider: Yenni Estrada RN)1300 ($ Given - Provider: Yenni Estrada, RN)1315 ($ Given - Provider: Yenni Estrada, RN) HYDROmorphone PF (DILAUDID) injection 0.5 mg (CANCELED) 0.5 mg, Intravenous, EVERY 10 MIN PRN, Severe Pain, 4 doses, Starting on 12/27/14 at 1203, Until 12/27/14 at 1753, Maximum total of 4 doses If patient reaches max total dose, please consult anesthesiologist prior to further administration of pain meds. Hold pain meds if there are signs of hypoventilation., PACU 1410 ($ Given - Provider: Meño Pastrana, CHEY)1510 ($ Given - Provider: Meño Pastrana, CHEY) oxyCODONE (ROXICODONE) oral solution 10 mg (CANCELED) 10 mg, Oral, EVERY 4 HOURS PRN, Moderate Pain, Starting on Fri12/28/14 at 1230, Until Carisa 12/29/14 at 1307 1335 ($ Given - Provider: Cayla Almendarez RN)1727 ($ Given - Provider: Cayla Almendarez, CHEY) 0017 ($ Given - Provider: Francia Rausch, CHEY)0415 ($ Given - Provider: Francia Rausch, CHEY)0931 ($ Given - Provider: Cayla Almendarez, CHEY) oxyCODONE (ROXICODONE) oral solution 5 mg 5 mg, Oral, EVERY 4 HOURS PRN, Moderate Pain, Starting on 12/27/14 at 1821, Until 12/28/14 at 1230 1846 ($ Given - Provider: Natalie Ignacio RN)2319 ($ Given - Provider: Angelita Burgos RN) 9987 ($ Given - Provider: Francia Rausch RN)0839 ($ Given - Provider: Cayla Almendarez RN) scopolamine (TRANSDERM-SCOP) 1.5 MG patch 1.5 mg [...] MRI. 1921 ($ Applied - Provider: Concepcion Biswas RN) Linked Groups Order Group 1: acetaminophen (TYLENOL) [...] hours scheduled., Post-op documented in this encounter Care Teams Tunnel Elastic Operator Lockstitch Relationship Specialty Start Date End Date Kelly Roberts RN Life Insurance Agent 12/28/14 documented as of this encounter
--- OUTSIDE RECORDS SUMMARY | 2024-11-15 03:19 | XMS_ITS | Encounter Summary ---
Author Organization [facility] Address [address] [place] [address] Care Team Providers Care Hand Screen Printer Name Role Phone Kelly Roberts RN Unavailable [phone] Reason for Visit * Reason Onset Date Comments Bariatric Surgery Follow-up 12/30/2014 Encounter Details Date Type Department Care Team (Late st Contact Info) Description 12/30/2014 Telephone [facility] Management [facility] [id number] [facility], [facility] [address] [place] [address] [place] [address] [facility] [address] [place] [address] Bariatric Surgery Follow-up Social History Tobacco Use Types Packs/Day [...] Telephone Encounter - Karin Finch RN - 12/30/2014 12:44 PM BRIM RAISER Called post operatively to check on status. Reviewed vitamins, pt taking correctly. Pt taking Prilosec daily. Pt working towards meeting fluid and protein goals. Reviewed importance of hydration. Pt denies swallowing difficulties. Pt reports incision without signs or symptoms of infection. Pt has not had BM since surgery, reviewed bowel regime including stool softener and fiber daily. MOM or Mirilax 1/2 dose now. Instructed to call back if no results. Encouraged to continue to use incentive spirometer frequently throughout the day. Confirmed follow up appointment. Pt denied further questions.Pt reminded to call through exchange if problems arise after hours or on weekends. Pt verbalized understanding of all instructions given. RAISER documented in this encounter Plan of Treatment Not on file documented as of this encounter Visit Diagnoses Not on filedocumented in this encounter Care Teams Hand Screen Printer Relationship Specialty Start Date End Date Kelly Roberts RN Supervisor Heading 12/28/14 documented as of this encounter
--- OUTSIDE RECORDS SUMMARY | 2024-11-15 03:19 | XMS_ITS | Encounter Summary ---
Author Organization [facility] Address [address] [place] [address] Care Team Providers Care Sorter Lumber Straightener Name Role Phone Unavailable Primary Care Provider Unavailabl e Reason for Visit * Reason Comments Bariatric Surgery Pre-op Instruction Encounter Details Date Type Department Care Team (Late st Contact Info) Description 12/14/2014 12:30 PM ENGINEERING AND OPERATIONS DIRECTOR Office Visit [facility] [address] [place] [id number] Morbid obesity (HCC) (Primary Dx) Social [...] of this encounter Progress Notes * Tasha Aldridge RN - 12/14/2014 3:29 PM CST Pt complained of being hot and slightly sick to her stomach after class. Vs taken= bp 136/86, hr 74and pulse ox = 96%. Pt states she has already had 64 ounces of fluids and has eaten sausage and eggfor breakfast, a candy bar, and a fish sandwich for lunch. Color is pink, denies dizziness at present.She states she thinks she did not get enough sleep because she got up at 4 am. Asked if she was coming down with the flu, she says no, she says she just got over heated. She saybarakhe wants to go to the pharmacy and get her vitamins and now she feels better. She was instructed to go to the emergency room if she feels dizzy or that she will pass out or if her symptoms worsen and she feels she needs emergency care. NEERING AND OPERATIONS DIRECTOR * Tasha Aldridge RN - 12/14/2014 2:59 PM CST Patient has completed the following the educational class with the Bariatric Nurse Coordinator and an RD. Reviewed items include: 1. Pre-operative high protein liquid diet and rationale reviewed 2. Reviewed topic of weight gain at pre op class visit: that this may result in: completing more dietary education or increasing the number of weeks for the high protein liquid diet and /or worst case scenario,surgery cancellation and have another consult with the surgeon Weight gain =0 3. Pre-operative bathing instructions with antibacterial wash as directed by SEC 4. Required items to bring with patient day of surgery 5. Pre-operative admission 6. Operating room process 7. Recovery room process 8. Post-operative care on the nursing floor 9. Discharge instruction for home care: ambulation, IS, activity level 10. Phase 1 and 2 diet discussed 11. Vitamin supplements 12. Follow up appointments scheduled- 1 week, 1 month and 6 month 13. Support group, Facebook and resources discussed 14. When to call the office, S&S of complications provided and the numbers to call 15. Weight Loss Surgical Pre-operative Questionnaire reviewed discussed and collected 16. Weight Loss [place] Contract reviewed, signed and collected 17. Information on Medic Alert bracelet in binder discussed. 18. Discussed causes of n/v and dumping Surgery date and pre op diet reviewed individually with patient. Instructed to get SEC appt SHERRIE if not already completed- notified not getting labs could postpone surgery. Pt denies questions at this time. Pt is given contact information for the [facility] any questions or concerns. Supplement samples offered NEERING AND OPERATIONS DIRECTOR documented in this encounter Plan of Treatment Not on file documented as of this encounter Visit Diagnoses Diagnosis Morbid obesity (HCC)- Primary Morbid obesity documented in this encounter
--- OUTSIDE RECORDS SUMMARY | 2024-11-15 03:19 | XMS_ITS | Encounter Summary ---
Author Organization [facility] Address [address] [facility] [place] [address] Care Team Providers Care Lamina Searcher Name Role Phone Unavailable Primary Care Provider Unavailabl e Reason for Visit * Reason Onset Date Comments Update 04/25/2011 Encounter Details Date Type Department Care Team (Late st Contact Info) Description 04/25/2011 Telephone [facility] [id number] [address] [place] [id number] [address] Update Social History Tobacco Use Types Packs/Day Years [...] Telephone Encounter - Criss Baltazar LPN - 04/25/2011 11:59 AM CDT Physical therapist called and gave update on patient. Said patient came into office with c/o pain and couldn't do much exercise with her due to lack of tolerance. Said she had spoken about going backto see pain mgmt this week and didn't think it was helping. I called [facility] and spoke toThu who said patient wasn't given pain medication there because we were prescribing to her. Donpatriceaid she will inform Dr Shannon that we will not refill medication now if they are taking over.Patient had been seen there prior to surgery also.Last notes stated patient was doing better after 2nd injection not as patient had stated to therapist.Patient is scheduled to f/u this week with Dr Deleon. documented in this encounter Plan of Treatment Not on file documented as of this encounter Visit Diagnoses Not on filedocumented in this encounter
--- OUTSIDE RECORDS SUMMARY | 2024-11-15 03:19 | XMS_ITS | Encounter Summary ---
Author Organization [facility] Address [address] [facility] [place] [address] Care Team Providers Care Streetcar Dispatcher Name Role Phone Unavailable Primary Care Provider Unavailabl e Reason for Visit * Reason Onset Date Comments Surgery Scheduling 12/12/2014 Encounter Details Date Type Department Care Team (Late st Contact Info) Description 12/12/2014 Telephone [facility] Management Services [address] [facility], [address] [place] [address] [place] [id number] [facility] [address] [place] [address] Surgery Scheduling Social History Tobacco [...]
--- OUTSIDE RECORDS SUMMARY | 2024-11-15 03:20 | XMS_ITS | Encounter Summary ---
Author Organization [facility] Address [address] [facility] [place] [address] Care Team Providers Care Signal Intelligence Analyst Name Role Phone Unavailable Primary Care Provider Unavailabl e Reason for Referral * Evaluate & Treat Specialty Diagnoses / Procedures Referred By Jesse santana Referred To Contact Lars Alberts MD RETIRED Referral ID Status Reason Start Date Expiration Date V isits Requested Visits Authorized Specialty Services Required SITE PROPERTY MANAGER Encounter Details Date Type Department Care Team (Latest Contact Info) Description 01/10/[address] [facility] Neurosc[facility] [address] [place] [address] [place] [id number] [address] Sciatica ; Congenital spondylolisthesis Social History Tobacco Use Types Packs/Day Years [...] Diagnoses Orde r Schedule AMB REFERRAL TO TOLL TICKET CLERK Outpatient Referral Routine Sciatica Congenital spondylolisthesis Ordered: 01/10/2011 documented as of this encounter Visit Diagnoses Diagnosis Sciatica- Primary Congenital spondylolisthesis documented in this encounter
--- OUTSIDE RECORDS SUMMARY | 2024-11-15 03:20 | XMS_ITS | Encounter Summary ---
Author Organization [facility] Address [address] [facility] [place] [address] Care Team Providers Care Liquor Department Manager Name Role Phone Unavailable Primary Care Provider Unavailabl e Reason for Visit * Reason Comments Pain Back radiates down left h ip,leg and foot Pain Arm left Encounter Details Date Type Department Care Team (Late st Contact Info) Description 12/28/2010 11:00 AM PUBLIC RELATIONS COORDINATOR Office Visit [facility] Neurosc[facility] [id number] [place] [id number] [place] [id number] [facility] [address] [address] Lumbago with sciatica (Primary Dx); Spondylolisthesis; Lumbar spinal stenosis; DDD (degenerative disc disease), lumbar Social History Tobacco Use Types Packs/Day Years Used Date Smoking Tobacco: Never Smokeless Tobacco: Never Alcohol Use Standard Drinks/Week Comments Not Asked 0 (1 standard drink = 0.6 oz pur e alcohol) Sex and Gender Information Value Date Recorded Sex Assigned at Not on file Gender Identity Not on file Sexual Orientation Not on file documented as of this encounter Progress Notes * Sean Deleon MD - 12/28/2010 12:25 PM CST Please see my dictated consult/H&P. IC RELATIONS COORDINATOR documented in this encounter Consult Notes * Sean Deleon MD - 01/10/2011 10:18 AM CST PRIMARY CARE PHYSICIAN: Laureano Lantigua MD CHIEF COMPLAINT: Lower back, left buttock, left hip, and left lower extremity pain. HISTORY OF PRESENT ILLNESS: Ms. Sandoval is a 40-year-old left-handed woman with a history of hypertension, asthma, migraine headaches, and hypercholesterolemia, who reports having symptoms of constant pain extending across the lower back radiating into the left buttock since around 2007. This has progressively worsened over the past several years, and since fall of last year, she reports having constant pain in the left hip and buttock region with intermittent spasms and shocks in the left buttock and generalized sensitivity in the left buttock, hip, and leg. Putting any pressure on the left buttock and hip region is particularly uncomfortable for her. Sitting is particularly bothersome for her, and her left lower extremity feels generally weak. She otherwise denies having any symptoms in the right hip or lower extremity. She was seen by Dr. Lange of orthopedics regarding these symptoms, and he administered a lumbar epidural injection, which did not provide her any relief. She has also been seeing Dr. Bullock of pain management, who has administered further lumbar epidural injections, but these only provided minimal relief of symptoms. Dr. Bullock also performed an injection in the bursa of the left hip, which did provide her some symptomatic relief for a period of approximately 6 weeks. She has not undergone any physical therapy for these symptoms. She did see Dr. Mark at [facility] regarding these symptoms, and they did discuss the option of surgery, although Ms. Sandoval is unable to tell me what surgery was discussed. PREVIOUS MEDICAL HISTORY: 1. Hypertension. 2. Asthma. 3. Migraine headaches. 4. Hypercholesterolemia. PREVIOUS SURGICAL HISTORY: 1. Bilateral carpal tunnel release. 2. Foot surgery for treatment of bunions and hammertoes. 3. Multiple right eye surgeries for treatment of retinal detachment and a cataract. 4. Right knee ACL and meniscal repair. 5. Left rotator cuff surgery. 6. Left ankle reconstruction. ALLERGIES: Morphine and erythromycin. MEDICATIONS: 1. Percocet 5/325 p.r.n. 2. Soma 350 p.r.n. 3. Amlodipine. 4. Christina. 5. Naprosyn p.r.n. SOCIAL HISTORY: The patient does not smoke tobacco products, and reports infrequent alcohol consumption. She denies any alcohol or drug abuse. She is and has one child. 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 FAMILY HISTORY: Positive for rheumatoid arthritis, asthma, cancer, coronary artery disease, hypercholesterolemia, hypertension, migraine headaches, and stroke. REVIEW OF SYSTEMS: The patient reports having a bout of mononucleosis a few years ago. Otherwise, she denies any recent fevers or infections. She reports falling off of a horse in 2002, and has had chronic left hip problems ever since this fall. She also suffered a left ear injury during this fall. She reports a recent symptoms of chest pain, but a subsequent cardiac stress test was reportedly negative. She reports a 40-pound weight gain over the past 3 years. She denies any recent shortness of breath. She denies any history of myocardial infarction or stroke. The remainder of the 11 point review of systems is negative. PHYSICAL EXAMINATION: General: This patient is a well-nourished, well- developed woman, in no apparent distress. She is pleasant and cooperative with both interview and examination. She appeared her stated age. She weighs 230 pounds, and is 6 feet tall. HEENT: Normocephalic and atraumatic. Carotids are 2+ bilaterally without bruit. No lymphadenopathy or thyromegaly is noted. Neck is soft and supple. Cardiovascular: Regular rate and rhythm without rubs, murmurs, or gallops. Lungs are clear to auscultation bilaterally. Abdomen is soft, benign, and normoactive bowel sounds are noted. Skin is warm and dry. Extremities demonstrate no evidence of clubbing, cyanosis, or edema. Back Examination: There is moderately severe tenderness to palpation along the lower axial lumbar spine. Lumbar flexion is noted to 120 degrees, extension to 30 degrees. The patient reports no discomfort with these movements. No obvious lumbar spinal deformities noted. Neurological Exam: The patient is awake, alert, and oriented x3. Cranial nerves II through XII are intact. Motor examination demonstrates normal strength and tone throughout. Sensory examination demonstrated allodynia in the dorsum and lateral aspect of the left foot and in the lateral aspect of the left leg. Otherwise, light touch sensation is grossly intact and normal elsewhere. Reflexes are 2+ and symmetric in the upper extremities, 2+ and symmetric in the knee jerks, and trace and symmetric in the ankle jerks. Toes are downgoing bilaterally. Dias signs are absent. Straight leg raise is negative bilaterally. Freedom's test is positive on the left and negative on the right. Gait and station are normal. RADIOGRAPHIC DATA: Review of x-rays: MRI of the lumbar spine without contrast dated 10/19/2010 performed at [facility] was reviewed. This demonstrates focal degenerative disk disease with a grade 1 spondylolisthesis at the L5-S1 segment. The axial images at this level demonstrate facet arthropathy and pseudobulging of the disk producing a moderate degree of left-sided foraminal narrowing. No significant central canal or right-sided foraminal narrowing is noted at this segment. Mild facet arthropathy and trace annular bulging is noted at the L4-L5 level, without evidence of disk herniation or significant stenosis. The remainder of the lumbar spine is unremarkable. No fracture or subluxations are seen. CT scan of the lumbar spine dated 10/30/2010 performed at [facility] was also reviewed. This again demonstrates evidence of degenerative disk disease and a grade 1 spondylolisthesis at the L5-S1 level. Bilateral pars defects are noted at the segment. Plain films of the lumbar spine obtained at [facility] confirmed this finding, and the degree of the spondylolisthesis appears to be increased with the patient in an upright position. On plain films, she has nearly a grade 2 spondylolisthesis. The remainder of the lumbar spine is unremarkable. IMPRESSION AND PLAN: Ms. Sandoval is a 40-year-old woman who presents with a 3 to 4-year history of constant and persistent lower back, left buttock, and left hip pain with allodynia in the left hip, buttock, and lower extremity. Imaging of the lumbar spine has demonstrated evidence of a grade 1 isthmic spondylolisthesis, degenerative disk disease, and left- sided foraminal narrowing at the L5-S1 segment, and these changes appear to be the source of Ms. Sandoval's ongoing symptoms. I spoke with her regarding the potential treatment options for this condition, which would include continued conservative management with medications, physical therapy, and possibly further pain management, versus a surgical treatment option of minimally invasive L5-S1 lumbar decompression, radical diskectomy, TLIF, reduction of spondylolisthesis, and instrumented posterior spinal fusion. I went over the indications, risks, benefits, and alternatives to the surgery with Ms. Sandoval. She understands the risks of surgery include, but not be limited to, anesthesia, blood loss, blood transfusion, infection, nerve root injury, paralysis, loss of sensory/bowel/bladder/sexual function, failure of surgery to provide symptomatic relief, failure of bony fusion or spinal implanted hardware, CSF leak, blindness, stroke, coma, , and reoperation. She understands all these risks and limitations of the surgery, and wishes to proceed with surgical treatment. We will be scheduling this for her in the near future at her earliest convenience. [place] [address]. Sean Deleon M.D. JMarcelinaL/MedQ #: [id number] cc: Laureano Lantigua MD IC RELATIONS COORDINATOR documented in this encounter Plan of Treatment Not on file documented as of this encounter Visit Diagnoses Diagnosis Lumbago with sciatica- Primary Sciatica Spondylolisthesis Congenital spondylolisthesis Lumbar spinal stenosis Spinal stenosis, lumbar region, without neurogenic claudication DDD (degenerative disc disease), lumbar Degeneration of lumbar or lumbosacral intervertebral disc documented in this encounter
--- OUTSIDE RECORDS SUMMARY | 2024-11-15 03:20 | XMS_ITS | Encounter Summary ---
Author Organization [facility] Address [address] [facility] [place] [address] Care Team Providers Care Front Maker Lockstitch Name Role Phone Unavailable Primary Care Provider Unavailabl e Encounter Details Date Type Department Care Team (Latest Contact Info) Description 01/10/2011 12:01 AM PHOTOENGRAVER APPRENTICE - 01/10/2011 11:59 PM PHOTOENGRAVER APPRENTICE Hospital Encounter [facility] [address] [place] [address] [place] [address] [place] [address] Surgery General Discharge Disposition: Home [...] - Inhaled Oxygen Concentration - - Weight 104.3 kg (230 lb) 01/10/2011 10:01 AM PHOTOENGRAVER APPRENTICE Height 182.9 cm (6') 01/10/2011 10:01 AM PHOTOENGRAVER APPRENTICE Body Mass Index 31.19 01/10/2011 10:01 AM PHOTOENGRAVER APPRENTICE documented in this encounter Medications at Time of Discharge Medication Sig Dispensed Refills Start Date End Date acetaminophen (TYLENOL) 325 MG tablet Take 2 Tabs by mouth every 6 hours as needed for Pain. Maximum allowable Acetaminophen amount = 4 Grams / 24 hours. 01/18/2011 07/27/2014 albuterol HFA (PROAIR HFA) 108 (90 BASE) MCG/ACT inhaler Inhale 2 Puffs by mouth every 6 hours as needed. 01/17/2011 amLODIPine (NORVASC) 5 MG tablet Take 5 mg by mouth daily. 07/27/2014 carisoprodol (SOMA) 350 MG tablet Take 1 Tab by mouth 3 times daily. 80 Tab 0 01/18/2011 01/29/2011 carisoprodol (SOMA) 350 MG tablet Take 350 mg by mouth 3 times daily. 01/18/2011 cyclobenzaprine (FLEXERIL) 10 MG tablet Take 1 [...] for Pain. 80 Tab 0 01/18/2011 01/29/2011 oxycodone-acetaminop hen (PERCOCET) 5-325 MG tablet Take 1 Tab by mouth every 4 hours as needed. 01/18/2011 documented as of this encounter Miscellaneous Notes * Miscellaneous Scans - Document, Scanned - 01/11/2011 7:14 AM PHOTOENGRAVER APPRENTICE documented in this encounter Plan of Treatment Not on file documented as of this encounter Procedures Procedure Name Priority Date/Time Associated Diagnosis Comments URINALYSIS REFLEX MICROSCOPIC REFLEX CULTURE Routine 01/10/2011 10:25 AM PHOTOENGRAVER APPRENTICE Preoperative examination TYPE + SCREEN PANEL STAT 01/10/2011 1 0:25 AM PHOTOENGRAVER APPRENTICE Preoperative examination HGB HCT PANEL Timed 01/10/2011 10:25 AM PHOTOENGRAVER APPRENTICE Preoperative examination BASIC METABOLIC PANEL (CALCIUM TOTAL) Routine 01/10/2011 10:25 AM PHOTOENGRAVER APPRENTICE Preoperative examination documented in this encounter Results * TYPE + SCREEN PANEL (01/10/2011 10:25 AM PHOTOENGRAVER APPRENTICE) ABO Rh O Pos [facility] Antibody Screen Neg Negative [facility] BLOOD SPECIMEN / Unknown 01/10/2011 10:25 AM PHOTOENGRAVER APPRENTICE 01/10/2011 11:28 AM PHOTOENGRAVER APPRENTICE Sean Deleon MD LAB - BLOOD BANK ORD ERABLES Performing Organization Address [facility]/ZIP Co de Phone Number [facility] [address] [place] [address] * URINALYSIS ROUTINE W/REFLEX TO CULTURE (01/10/2011 10:25 AM PHOTOENGRAVER APPRENTICE) Color UA YELLOW [facility] Character UA CLEAR [facility] Specific [place] UA 1.009 1.005 - 1.0300 [facility] pH UA 6.5 4.6 - 8.0 pH Units [facility] Leukocyte UA NEGATIVE Negative /ul [facility] Nitrite UA NEGATIVE Negative [facility] Protein UA NEGATIVE Negative mg/dl [facility] Glucose UA NEGATIVE Normal mg/dl [facility] Ketone UA NEGATIVE Negative mg/dl [facility] Urobilinogen UA 0.2 Normal Lelia Units [facility] Bilirubin UA NEGATIVE Negative mg/dl [facility] Blood UA NEGATIVE Negative /ul [facility] WBC UA 0-2 <5 /HPF [facility] RBC UA 0-2 <5 /HPF [facility] Epithelial Cell UA 0-2 <5 /HPF [facility] Casts UA 0-2 <2 /LPF [facility] Bacteria UA NEGATIVE [facility] Urine Culture No culture to be done per protocol. [facility] URINE SPECIMEN OBTAINED BY CLEAN CATCH PROCEDURE / Unknown 01/10/2011 10:25 AM PHOTOENGRAVER APPRENTICE 01/10/2011 11:27 AM PHOTOENGRAVER APPRENTICE Sean Deleon MD LAB - URINALYSIS ORD ERABLES [facility] [address] [place] [address] * HGB HCT PANEL (01/10/2011 10:25 AM PHOTOENGRAVER APPRENTICE) Hemoglobin 14.2 12.0 - 16.0 gm/dl [facility] Hematocrit 43.3 36.0 - 48.0 % [facility] BLOOD SPECIMEN / Unknown 01/10/2011 10:25 AM PHOTOENGRAVER APPRENTICE 01/10/2011 11:28 AM PHOTOENGRAVER APPRENTICE Sean Deleon MD LAB - HEMATOLOGY ORD PEDROBLES Performing Organization Address [facility] Co de Phone Number [facility] [address] [place] [address] * BASIC METABOLIC PANEL (CALCIUM TOTAL) (01/10/2011 10:25 AM PHOTOENGRAVER APPRENTICE) BUN 13 7.0 - 17.0 mg/dl [facility] Sodium 140 137 - 145 mmol/L [facility] Potassium 4.1 3.6 - 5.0 mmol/L [facility] Chloride 105 98.0 - 107.0 mmol/L [facility] CO2 23 22.0 - 30.0 mEq/L [facility] Anion Gap 12.0 [facility] Glucose 70 70 - 105 mg/dl [facility] Creatinine 0.9 0.52 - 1.05 mg/dl [facility] Calcium 9.6 8.4 - 10.2 mg/dl [facility] eGFR by MDRD 69.70 ml/min/1.73 m2 [facility] BLOOD SPECIMEN / Unknown 01/10/2011 10:25 AM PHOTOENGRAVER APPRENTICE 01/10/2011 11:28 AM PHOTOENGRAVER APPRENTICE Sean Deleon MD LAB - CHEMISTRY ORDE RADHIKA Performing Organization Address [facility] Co de Phone Number [facility] [address] [place] [address] documented in this encounter Visit Diagnoses Diagnosis Preoperative examination Preoperative examination, unspecified documented in this encounter
--- OUTSIDE RECORDS SUMMARY | 2024-11-15 03:20 | XMS_ITS | Encounter Summary ---
Author Organization [facility] Address [address] [place] [address] Care Team Providers Care Supervisor Slitting And Shipping Name Role Phone Unavailable Primary Care Provider Unavailabl e Encounter Details Date Type Department Care Team (Latest Contact Info) Description 01/17/2011 8:36 PM BILINGUAL MANAGER - 01/18/2011 4:15 PM BILINGUAL MANAGER Hospital Encounter [facility]N NEURO/NEUROSRG [address] [place] [address] [place] [phone] [id number] Medical Inpatient Discharge Disposition: Home or Self Care Social [...] Sign Reading Time Taken Comments Blood Pressure 142/92 01/18/2011 3:30 PM BILINGUAL MANAGER Pulse 108 01/18/2011 3:30 PM BILINGUAL MANAGER Temperature 37.3 ??C (99.1 ??F) 01/18/2011 3:30 PM CS T Respiratory Rate 18 01/18/2011 3:30 PM BILINGUAL MANAGER Oxygen Saturation 95% 01/18/2011 3:30 PM BILINGUAL MANAGER Inhaled Oxygen Concentration - - Weight 115.8 kg (255 lb 4.7 oz) 011 11:58 PM BILINGUAL MANAGER Height 182.9 cm (6') 01/17/2011 8:53 PM BILINGUAL MANAGER Body Mass Index 34.62 01/17/2011 8:53 PM BILINGUAL MANAGER documented in this encounter Discharge Summaries * Sean Deleon MD - 02/15/2011 4:13 AM CDT [facility] DISCHARGE SUMMARY PATIENT: Finesse Bolivar : 1970 MR#: [id number] ACCT#: [id number] ADMIT DATE: 01/17/2011 DISCH DATE: 01/18/2011 4:15 PM PHYSICIAN: Sean Deleon MD ADMISSION DIAGNOSIS: Sciatica [724.3] (SCIATICA) PRINCIPAL DIAGNOSIS: 1. L5-S1 isthmic spondylolisthesis, degenerative disk disease, and left foraminal stenosis.. SECONDARY DIAGNOSES: 1. Hypertension. 2. Asthma. 3. Migraine headaches. 4. Hypercholesterolemia. PRINCIPAL PROCEDURE: 1. L5-S1 MIS decompression, TLIF, open reduction of spondylolisthesis, and IPSF. SECONDARY PROCEDURES: None. HISTORY OF PRESENT ILLNESS: This patient is a 40-year-old woman who presents with a 3 to 4-year history of constant and persistent lower back, left buttock, and left hip pain with allodynia in the left hip, buttock, and lower extremity. Imaging of the lumbar spine has demonstrated evidence of a grade 1 isthmic spondylolisthesis, degenerative disk disease, and left-sided foraminal narrowing at theL5-S1 segment, and these changes appear to be the source of Ms. Nyasia Macias's ongoing symptoms. Giventhe patient's persisting symptoms, she now presented for the elective principal procedure above. HOSPITAL COURSE: For further information regarding surgery, please refer to the separately dictatedoperative note. Postoperatively, the patient was extubated, and admitted to the PACU for close observation. There, she was found to be both neurologically and hemodynamically stable. She was subsequently transferred to an acute nursing floor for further postoperative care. Maintenance IV fluids were continued postoperatively, and the patient's diet was advanced as tolerated. IV fluids were discontinued on the morning of postoperative day #1, once the patient's oral intake was appropriate. Perioperative antibiotics were continued for a period of 24 hours. The patient's dressings were removed on the morning of postoperative day #1, and the incisions appeared to be healing well without evidence of significant edema or hematoma. The patient remained afebrile with stable vital signs throughout the hospital stay. Postoperative hematocrit was noted to be stable: Component Name 01/18/11 0115 01/10/11 1025 HCT 39.5 43.3 The patient reported that her back and LLE pain seemed worsened postoperatively, and she also demonstrated some allodynia in the left lateral hip, thigh, and foot. She was started on oral steroids and neurotin, and was given P.R.N. Dilaudid, Percocet, and Flexeril. This combination of medications seemed to provide reasonable pain relief. Prehospital medications were resumed without difficulty. Her Hammonds catheter was removed on the morning of postoperative day #1, and the patient was subsequently able to void independently without difficulty. The patient was mobilized out of bed as tolerated postoperatively with the assistance of PT, and she was rapidly able to resume independent ambulation and activity. By the pm of postoperative day #1, the patient appeared to be doing well with reasonable control of operative incisional discomfort and with progressively improving activity level. She was ready to be discharged home. CONDITION ON DISCHARGE: Stable. DIET: Regular Diet MEDICATIONS: Discharge Medication List as of 01/18/11 03:34 PM START taking these medications acetaminophen (TYLENOL) 325 MG tablet 650 mg, Oral, EVERY 6 HOURS PRN Starting 01/18/2011, Until Discontinued, Pain, OTC, Take 2 Tabs by mouth every 6 hours as needed for Pain. Maximum allowable Acetaminophen amount = 4 Grams / 24 hours. gabapentin (NEURONTIN) 300 MG capsule 300 mg, Oral, 3 TIMES DAILY Starting 01/18/2011, Until Discontinued, Disp-120 Cap, R-2, Print, Take 1Cap by mouth 3 times daily. Indications: Neurogenic Pain methylPREDNISolone (MEDROL DOSEPAK) 4 MG tablet Oral, DIRECTED Starting 01/18/2011, Until Discontinued, Disp-21 Packet, R-0, Print, Take by mouth as directed. cyclobenzaprine (FLEXERIL) 10 MG tablet 10 mg, Oral, 3 TIMES DAILY PRN Starting 01/18/2011, Until Discontinued, Muscle Spasms, Disp-60 Tab, R-2, Print, Take 1 Tab by mouth 3 times daily as needed for Muscle Spasms. CONTINUE these medications which have CHANGED oxycodone-acetaminophen (PERCOCET) 5-325 MG tablet 1-2 Tab, Oral, EVERY 4 HOURS PRN Starting 01/18/2011, Until Discontinued, Pain, Disp-80 Tab, R-0, Print, Take 1-2 Tabs by mouth every 4 hours as needed for Pain. carisoprodol (SOMA) 350 MG tablet 350 mg, Oral, 3 TIMES DAILY Starting 01/18/2011, Until Discontinued, Disp-80 Tab, R-0, Print, Take 1 Tab by mouth 3 times daily. CONTINUE these medications which have NOT CHANGED Drospirenone-Ethinyl Estradiol (CHRISTINA 28 PO) Oral, Until Discontinued, Historical Medication, Take by mouth. amLODIPine (NORVASC) 5 MG tablet 5 mg, Oral, DAILY, Until Discontinued, Historical Medication, Take 5 mg by mouth daily. ACTIVITIES: Light, with no lifting more than 10 pounds. The patient was to avoid bending, twisting,and all strenuous physical activity. No driving for a period of two weeks postoperatively. An LSO brace was fitted and prescribed to be worn during ambulation and activity for the first six weeks postoperatively. FOLLOWUP: The patient was to be seen in my office two weeks after discharge for routine postoperative care. Sean Deleon M.D. Neurosurgeon [facility] documented in this encounter Discharge Instructions * Discharge Instructions* Nicole Johnson RN - 01/18/2011 3:33 PM BILINGUAL MANAGER If you have any questions regarding your home medications/prescriptions, please contact your primary physician. Discharge Procedure Orders REGULAR DIET AT HOME ACTIVITY TOLERATED Avoid being overly tired. Rest periods should be taken as often as necessary. GRADUALLY RESUME ACTIVITY You may begin walking short distances and increase daily activity as tolerated without discomfort. NO VIGOROUS OR STRENUOUS ACTIVITY MAY RESUME SEXUAL ACTIVITY Two weeks after surgery if normal daily activity is pain free. Order Specific Question Answer Comments For how long? Two weeks LONG RANGE TRAVEL PLANS Within the first month after surgery should be discussed with your doctor. AVOID HEAVY HOUSEWORK OR YARD WORK Until released by physician. AVOID PUSHING, PULLING, OR STOOPING You may squat when necessary. PROLONGED SITTING MAY CAUSE ADDED DISCOMFORT. Sit only for 30-45 minutes at a time during the first week after surgery. Gradually increased as tolerated. Try to use a chair with good back support. STAIR CLIMBING IS PERMITTED Order Specific Question Answer Comments For how long? other (enter comment) ad corina STAIR CLIMBING IS PERMITTED WITHOUT CARRYING Start slowly, one step at a time, and progress as tolerated. Order Specific Question Answer Comments For how long? other (enter comment) DO NOT DRIVE Do not drive or operate hazardous machinery when taking pain medication. Order Specific Question Answer Comments For how long? Two weeks DO NOT DRIVE For two weeks after surgery. You may ride as a passenger for necessary trips only. Remember to wearyour seatbelt and any brace or collar you may have been instructed to wear at home. Order Specific Question Answer Comments For how long? Two weeks NO LONG CAR RIDES LIMIT RIDING IN CAR Riding in car is okay. If you go on a car ride for more than 45 minutes, stop and take a 15 minute walking break for every 45 minutes in the car. MAY SHOWER Order Specific Question Answer Comments after... Discharged STERI-STRIPS DRESSING If steri-strips fall off, let them. Remove remaining steri-strips 5 days after surgery NO LIFTING OVER Order Specific Question Answer Comments How many pounds? 10 For how long? One month WEAR YOUR LSO BRACE During ambulation and activity for the first six weeks postoperatively. May remove the brace while sitting, lying down, or only doing very light activity. DO NOT SMOKE Smoking delays the healing process, can inhibit bone fusion, and increases the risk of complications such as infection. CALL PHYSICIAN If you experience increasing or unrelieved pain, drainage, redness, bleeding, or swelling at surgical site and/or IV site. Have family member check the incisions daily. CALL PHYSICIAN For any vomiting or fever of 100.5 degrees or greater. CALL PHYSICIAN If unable to urinate in 6 - 8 hours or if uncomfortable. CALL PHYSICIAN If you experience a new onset of or increase in weakness or numbness in your extremities or bowel/bladder control problems (incontinence). Numbness and tingling are usually the last symptoms to resolve - may take weeks to months. CALL PHYSICIAN If you experience calf pain or tenderness. PATIENT TO CALL PHYSICIAN FOR APPOINTMENT Follow up with Dr. Deleon in 2 weeks PRESCRIPTIONS GIVEN TO PATIENT/FAMILY MEDICATION INSTRUCTIONS Do not take Aspirin or NSAIDS (EX: Ibuprofen) unless cleared by Dr. Deleon MEDICATION INSTRUCTIONS Take prescribed pain medications as needed. Exercise caution when walking, driving, or climbing stairs. MAY USE STOOL SOFTENERS MEDICATION INSTRUCTIONS If no bowel movement in 3 days, take 1 ounce of OF MILK OF MAGNESIA. If no results with this, take a FLEETS ENEMA. Please avoid smoking and second hand smoke. The following belongings have been returned to you: Clothing: Yes, With Patient: Shirt;Pants;Jacket/Coat;Footwear Jewelry: Yes, With Patient: Bracelet;Ring, Secured: Bracelet;Ring Electronic Items: Yes, With Patient: Cell Phone;Cell Phone Panelboard Operator, Secured: Cell Phone Dentures/Retainers: None Visual Aids: None Hearing Aids: None Equipment with Patient: None, Equipment At Home: (her grandma has a quad cane she can borrow) Home Medications: None Miscellaneous Items: Yes, With Patient: (makeup bag) Monetary Items: None, With Patient: Purse;Wallet;Money, Secured: Purse ;Wallet;Money .WEIGHT MONITORING - If you have heart failure, weigh yourself every morning. Contact your physician if your weight increases by 3 pounds in 1 day OR 5 pounds in 1 week. WHAT TO DO IF SYMPTOMS WORSEN - Contact your physician if you have shortness of breath/difficulty breathing, or any swelling of your legs, ankles or feet. The discharge and medication instructions have been reviewed with me and my questions have been answered. I have received a copy of the discharge instructions. 01/18/2011 NGUAL MANAGER * Discharge Instructions* Document, Scanned - 01/19/2011 10:53 AM BILINGUAL MANAGER documented in this encounter Medications at Time [...] 60 Tab 2 01/18/2011 01/29/2011 Drospirenone-Ethinyl Estradiol (CHRISTINA 28 PO) Take by mouth. 07/27/2014 gabapentin [...] 01/18/2011 01/29/2011 documented as of this encounter Progress Notes * Francia Peralta - 01/18/2011 4:16 PM CST Case management screen completed. Welcome letter with list of providers given to pt. Spoke with pt introduced self and gave letter explaining CM and SW roll in there stay here. Discussed dc planning,prior to dc this morning. Pt going home with family assist answered questions about billing and who to call. NGUAL MANAGER * Nicole Johnson RN - 01/18/2011 3:53 PM CST Shift Summary: Pt reported pain and received prn percocet. Pt then stated pain was tolerable. Pt and family are extremely upset about treatment in PACU as well as with recent conversation with surgery leadership. Pt does not want to stay due to her frustration. Pt ambulated multiple times around unit with no assistance. D/C instructions given; all questions answered. Nicole Johnson RN 01/18/2011 3:55 PM NGUAL MANAGER * Sarah Beth Pritchard, PT - 01/18/2011 10:22 AM CST PT orders received. See doc flow sheet for full PT evaluation. Chief complaints: Patient c/o low back and left LE pain (03/26). She also c/o numbness over bilat anterior thigh; numbness in left LE radiates distally to the left foot. Assessment: Patient presents with the above mentioned complaints. She presents with limited mobility due to pain. She will benefit from additional skilled PT to address her bed mobility, transfers, gait and safety. She will continue to be seen by PT during her in-pt stay. Treatment: 1. Evaluation 2. Transfers - supine to/from sitting - modified independent - sit to/from stand - CGA of 1 - toilet - CGA of 1 3. Ambulated 220 feet with wh walker and CGA of 1 4. Up/down 4 steps with one hand railing and CGA of 1 5. Educated in good posture and proper body mechanics using back precautions 6. Issued long handled sponge and gait belt for home use 7. Educated and had patient don/doff back brace independently Patient returned to supine with call light in reach following treatment. NGUAL MANAGER * Sean Deleon MD - 01/18/2011 9:07 AM CST Mrs. Sandoval reports that her prior lower back, left hip, and left thigh pain seems more intense postoperatively. She continues to have sensitivity to touch in the left hip and thigh. She also reports some tingling in the right thigh. She does appear more comfortable than she did last night aftersurgery, but she feels that her postoperative pain is worse than what she was expecting. Vitals: 01/18/11 0515 01/18/11 0600 01/18/11 0736 01/18/11 0743 BP: 101/58 101/59 105/81 Pulse: Temp: 98.1 ??F Resp: 16 Weight: SpO2: 91% 92% 94% 94% Incisions are flat, clean, dry, and intact. Neurological Exam: The patient is awake, alert, and oriented to name, place, and date PERRL, EOMF, Face symmetric, Tongue midline, Palate elevates symmetrically Motor exam demonstrates normal strength and tone throughout. No drift on Roberts. Sensory exam reveals allodynia in the left lateral foot, left thigh, and left hip. There is mild tingling to light touch in the right anterior thigh. Otherwise, light touch sensation is grossly intact throughout Component Name 01/18/11 0115 01/10/11 1025 WBC -- -- HGB 13.1 14.2 HCT 39.5 43.3 PLTCOUNT -- -- Impression/Plan: Mrs. Sandoval reports more intense pain in the same regions in the lower back and LLE postoperatively. This is likely secondary to continued pain of neuropathic origin in the left L5 and/or S1 nerveroots. This is not unusual, even following lumbar decompression. - Continue analgesics. Will start oral steroids and neurontin for management of neuropathic symptoms. - Encourage ambulation and activity. PT consult. - Complete perioperative antibiotics. Sean Deleon M.D. Neurosurgeon [facility] NGUAL MANAGER * Mini Regalado CRNA - 01/18/2011 8:58 AM CST POST-OP ANESTHESIA EVALUATION Finesse Bolivar is a 40 y.o. female The patient is sufficiently recovered from the acute administration of the anesthesia so as to participate in the evaluation or neurologic status has returned to pre-operative or expected level of consciousness. The post-anesthesia assessment was completed based upon the elements below. The patient is stable and has adequately recovered from anesthesia unless otherwise noted. Post-op Evaluation: Temp: 98.1 ??F Pulse: 104 Resp: 16 SpO2: 94 % BP: 105/81 mmHg Pain Rating Score #: 3 Resp function: Natural Airway Cardiac Function: Stable Mental Status : Awake/Alert Pain: Comfortable / acceptable Nausea / Vomiting: None Post Procedure Hydration: Adequate Other complications A post-op evaluation was performed on the patient with the following assessment: No Apparent Anesthesia Complications Unless otherwise indicated, the patient is being discharged from anesthesia care. Mini Regalado CRNA NGUAL MANAGER * Shantell Naidu RN - 01/18/2011 5:57 AM CST Shift Summary: Pt tolerating PO, LR infusion stopped. PT HR > 120, Dr. Rosales notified, [id number] cc NS infusion. HR < 120 after NS, VSS, afebrile. Hammonds d/c'd voided x 1. Ambulated in estes with LSO brace, tolerated well. C/o pain in incision site, pain meds admin. Ancef admin x 2. Dressing at incision site clean, dry and intact. Pt stated left eye is slightly irritated, has gotten better. SCDs in use, uses incentive spirometer. No c/o SOB NGUAL MANAGER * Zoila Rodriguez MD - 01/17/2011 8:29 PM CST 01/17/11 20:30 Called in to check her left eye because of feeling a foreign body. Eye checked,no vision problem,eye looks red. Will do the opthalmology protocol and will have an opthalmology consult if needed if noimprovement ijhn the morning. NGUAL MANAGER * Bre Palmer, CHEY - 01/17/2011 6:[address] Deleon at bedside to talk with patient. NGUAL MANAGER * Marc Lennon MD - 01/17/2011 11:43 AM CST PRE-ANESTHESIA EVALUATION Evaluated By: Marc Lennon MD, 01/17/2011 11:43 AM Finesse Bolivar is a 40 y.o. female Purpose: Hospital Problem List There is no problem list on file for this patient. Past Medical History Past Medical History Diagnosis Date ??? Arthritis ??? ASTHMA ??? HYPERTENSION ??? MIGRAINE ??? Elevated cholesterol not on Rx ??? Chest pain Past Surgical History Past Surgical History Procedure Date ??? Carpal tunnel release 1992 Bilateral ??? Hammer toe repair 2000 Left foot w/ bunionectomy ??? Other surgery 2005 6 EYE SURGERIES ??? Acl reconstruction 2008 Right ??? Rotator cuff repair 2008 LEFT ??? Other surgery 2008 Left ANKLE reconstruction Allergies Morphine and Erythromycin Meds Prescriptions prior to admission Medication Sig Dispense Refill ??? albuterol HFA (PROAIR HFA) 108 (90 BASE) MCG/ACT inhaler Inhale 2 Puffs by mouth every 6 hours as needed. ??? oxycodone-acetaminophen (PERCOCET) 5-325 MG tablet Take 1 Tab by mouth every 4 hours as needed. ??? Drospirenone-Ethinyl Estradiol (CHRISTINA 28 PO) Take by mouth. ??? amLODIPine (NORVASC) 5 MG tablet Take 5 mg by mouth daily. ??? carisoprodol (SOMA) 350 MG tablet Take 350 mg by mouth 3 times daily. Current facility-administered medications Medication Dose Route Frequency Provider Last Rate Last Dose ??? lactated ringers infusion Intravenous pre-OP continuous Sg Damon MD ??? famotidine (PEPCID) tablet 20 mg 20 mg Oral pre-OP once Sg Damon MD Last Dose: 20 mg at 01/17/11 1028 ??? ceFAZolin (ANCEF) 2 G in D5W IVPB 2 g Intravenous pre-Procedure multiple Sean Deleon MD Past Social History History Social History ??? Marital Status: Spouse Name: N/A Number of Children: N/A ??? Years of Education: N/A Occupational History ??? [employer] Social History Main Topics ??? Smoking status: Never Smoker ??? Smokeless tobacco: Never Used ??? Alcohol Use: Yes social ??? Drug Use: No ??? Sexually Active: Not on file Other Topics Concern ??? Not on file Social History Narrative ??? No narrative on file Lab Results Component Name 01/10/11 1025 WBC -- HGB 14.2 HCT 43.3 PLTCOUNT -- Component Name 01/10/11 1025 SODIUM 140 POTASSIUM 4.1 CHLORIDE 105 CO2 23 BUN 13 CREATININE 0.9 GLUCOSE 70 CALCIUM 9.6 No results found for this basename: INR:3,PT:3,PTT:3 in the last 74754 hours No results found for this basename: TROPONIN:3 in the last 88770 hours Last Vital SignsVITAL SIGNS Temp: 98.7 ??F Pulse: 75 Resp: 16 BP: 126/71 mmHg SpO2: 100 % Pre-Eval ExamPHYSICAL EXAM NPO status: Since Midnight Heart Sounds: S1 S2 Respiratory Pattern/Effort: CTA Oriented x 3: Yes Airway Class: II ANESTHESIA ASA: II Anesthesia Choices: General Post-Op: PACU PRE-EVAL REVIEW I have reviewed all previously documented physician evaluations: Yes NGUAL MANAGER * Ryan Porter - 01/17/2011 10:22 AM CST Pastoral Care. Advanced Directive completed. NGUAL MANAGER documented in this encounter H&P Notes * Document, Scanned - 01/19/2011 10:53 AM BILINGUAL MANAGER * Sean Deleon MD - 01/17/2011 6:21 AM CST CHIEF COMPLAINT: Lower back, left buttock, left [...] symptoms. She did see Dr. Mark at [facility] regarding these symptoms, and they [...] one child. 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 FAMILY HISTORY: Positive for rheumatoid arthritis, asthma, [...] spine without contrast dated 10/19/2010 performed at [facility] was reviewed. This demonstrates focal degenerative disk [...] the lumbar spine dated 10/30/2010 performed at [facility] was also reviewed. This again demonstrates evidence of degenerative disk disease and a grade 1 spondylolisthesis at the L5-S1 level. Bilateral pars defects are noted at the segment. Plain films of the lumbar spine obtained at [facility] confirmed this finding, and the degree of [...] risks and limitations of the surgery, and has asked me to proceed with surgical treatment. Sean Deleon M.D. Neurosurgeon [facility] NGUAL MANAGER documented in this encounter OR Notes * Operative - Sean Deleon MD - 01/17/2011 5:11 PM CST [facility] OPERATIVE REPORT PATIENT: Finesse Bolivar : 1970 MR#: [id number] ADMIT DATE: 01/17/2011 ACCT#: [id number] DATE OF SURGERY: 01/17/2011 PHYSICIAN: Sean Deleon MD PREOPERATIVE DIAGNOSIS: 1. L5-S1 isthmic spondylolisthesis, degenerative disk disease, and left foraminal stenosis. POSTOPERATIVE DIAGNOSIS: 1. L5-S1 isthmic spondylolisthesis, degenerative disk disease, and left foraminal stenosis. PROCEDURE: 1. Minimally invasive exposure of the L5-S1 segment using the Quadrant MIS system. 2. L5-S1 complete left-sided facetectomy and decompressive hemilaminectomy. 3. L5-S1 radical diskectomy. 4. L5-S1 transforaminal lumbar interbody fusion using PEEK lumbar interbody spacer, BMP-2 allograft, and morcellized locally harvested autograft. 5. Autologous bone marrow aspiration. 6. Bilateral L5-S1 pedicle screw fixation. 7. Open reduction of L5-S1 spondylolisthesis. 8. Bilateral L5-S1 posterolateral arthrodesis using BMP-2 allograft, VITOSS BA allograft mixed withautologous bone marrow aspirate, and morcellized locally harvested autograft. SURGEON: Sean Deleon M.D. ANESTHESIA: General endotracheal tube. INDICATIONS FOR PROCEDURE: The patient is a 40-year-old woman who presents with a 3 to 4-year history of constant and persistent lower back, left buttock, and left hip pain with allodynia in the lefthip, buttock, and lower extremity. Imaging of the lumbar spine has demonstrated evidence of a grade1 isthmic spondylolisthesis, degenerative disk disease, and left-sided foraminal narrowing at the L5-S1 segment, and these changes appear to be the source of Ms. Nyasia Macias's ongoing symptoms. Given the patient's persistent symptoms, I discussed the surgical treatment option described above. I went over the indications, risks, benefits, alternatives to this surgery with the patient and her family.She understood the risks and limitations of surgery, and asked me to proceed. PROCEDURE: The patient was brought to the operating suite where general endotracheal anesthesia wasinduced. Appropriate IV access and a Hammonds catheter were placed. The patient was then positioned prone on a Tarik frame and arms were supported on padded arm boards. All bony prominences were carefully padded. A combination of AP and lateral fluoroscopy was then used to loan out appropriate parasagittal incisions for the minimally invasive approach to the L5-S1 segment. The lumbar region was then prepped and draped in the usual sterile fashion. Lateral fluoroscopy was sterilely draped into the field. 0.25% Marcaine with 1:400,000 epinephrine was infiltrated into the marked incision sites. The right-sided parasagittal incision was then opened using a #10 blade, and bipolar electrocautery was used to attain the hemostasis. A straight self-retaining retractor was then placed. Bovie electrocautery was used to continue our dissection down to the level of the muscular fascia. The interval between the multifidus and longissimus paraspinous musculature was then identified, and a fascial opening wascreated over this site using the Bovie. This intermuscular interval was then developed using blunt finger dissection. The initial dilator was then advanced via this interval to abut the right-sided L5-S1 facet complex. This was visualized on intraoperative lateral fluoroscopy. Serial dilators were then advanced over the initial dilator. An 8-cm deep Quadrant MIS retractor was then advanced over the dilators, and secured into position using a Solar3DRx Flex-arm. The dilators were then removed. The Quadrant retractor was then expanded and angled to provide appropriate exposure of the posterolateralelements of L5-S1 on the right. A 8/9-cm deep medial-lateral retractor was then placed to assist with exposure. Bovie electrocautery was then used to perform a subperiosteal dissection of the right-sided L5 transverse process, right-sided sacral ala, and the right-sided L5-S1 facet complex. During the exposure of the L5 transverse process, care was taken not to disturb the L4-5 facet capsule. During the exposure of the L5 lamina, a left sided pars defect was noted, consistent with the known isthmic spondylolisthesis. The pedicle entry sites of L5 and S1 on the right were then identified usinganatomic landmarks, and these sites were decorticated using a Midas Brandon drill with an AM-8 bit. A pedicle gearshift was then used to create charter pilot holes in these pedicles. This was guided by intraoperative lateral fluoroscopy. The charter pilot holes were then palpated using straight and curved ball probes to verify appropriate placement. A Jamshidi needle was then placed into the L5 vertebral body via the transpedicular charter pilot hole, and 5 mL of autologous bone marrow aspirate was harvested and mixed with 5 mL of VITOSS allograft. The Jamshidi needle was then removed. The charter pilot holes were then tapped using a 6.5 mm tap. A 7.5 x 50 mm Medtronic Sofamor DanElliptic, Legacy 5.5 poly axial reduction pedicle screw was then placed into the right-sided L5 pedicle and a 7.5 x 55 mm Medtronic Sofamor [place], Legacy 5.5 poly axial pedicle screw was placed into the right-sided S1 pedicle, under the guidance of intraoperative lateral fluoroscopy. Intraoperative stimulation of these pedicle screws demonstrated thresholds exceeding 20 mA throughout. The wound was then copiously irrigated out with normal saline containing antibiotic. The wound was then packed using Gelfoam and a moistened sponge to maintain hemostasis. The opposite side parasagittal incision was then opened using a #10 blade, and a second 8-cm deep Quadrant MIS retractor was then inserted on this side in an identical fashion as previously described. A second 8/9-cm deep medial-lateral retractor was then set into position to assist with exposure. Subperiosteal dissection was then performed using Bovie electrocautery to expose the posterolateral bony elements of L5 and S1 on the left. Shutdown Coordinator holes were then created in the left-sided L5 and S1 pedicles in an identical fashion as previously described. Pedicle markers were then placed into these charter pilot holes. The Quadrant retractor was then wanded medially to provide additional exposure of the lateral lamina of L5. Subperiosteal dissection was carried medially over the lateral lamina using Bovie electrocautery. A left sided L5 pars defect was noted during this dissection, consistent with theknown isthmic spondylolisthesis. A complete left-sided L5-S1 facetectomy was then performed using the high-speed drill and straight osteotomes. The bone resected was saved and morcellized for the later arthrodesis. The left-sided hemilaminectomy was then extended medially using the high-speed drilland 2 and 3-mm Kerrison punches. The bone was then waxed for hemostasis. The underlying ligamentum f lavum was then resected using 3 and 4 mm Kerrison punches. Epidural bleeding was controlled using bipolar electrocautery. The lateral aspect of the thecal sac was then identified and inspected, and two dmpe-qu-spak traversing nerve roots were noted at this level. The nerve roots were followed back to the thecal sac, and it was apparent that there was an aberrant left L5 nerve root which travelledone level distally and exited below the left S1 pedicle along with the left S1 nerve root, instead of below the left L5 pedicle. No exiting nerve root was identified below the left L5 pedicle. The left sided L5 and S1 nerve roots were gently retracted medially using a Love nerve root retractor. TheL5-S1 disk space was then identified within Kambin's triangle. Epidural fat and veins overlying thedisk space were coagulated using bipolar electrocautery, and divided using a straight microscissors. A large box annulotomy was then created in the disk space using a #15 blade. Diskectomy was started using a straight curette, and a straight pituitary rongeur. Radical diskectomy was then completed at this level using upsizing endplate mamta, straight, down pushing, and angled curettes, and straight, up angled, and down angled pituitary rongeurs. Following completion of the diskectomy, appropriate decompression of the thecal sac and nerve roots was verified by passage of a Burleigh probe. Thewound and disk space were then copiously irrigated out with normal saline containing antibiotic. The bony endplates at the L5-S1 level were then prepared using an angled bone rasp. A 12 x 32-mm triallumbar interbody spacer was then tamped into the L5-S1 interspace, and this was deemed to be the correct size. The trial spacer was then removed. BMP-2 allograft was then mixed per protocol. A combina tion of BMP-2 allograft and morcellized autograft was then packed into the far anterolateral aspectof the emptied L5-S1 disk space. A 12 x 32 mm Capstone PEEK lumbar interbody spacer was then packedusing BMP-2 allograft and morcellized autograft, and this was then tamped into the disk space to anappropriate depth. This was visualized on intraoperative lateral fluoroscopy. Gelfoam was then packed into the epidural space to maintain hemostasis. The left-sided pedicle markers were then removed. 7.5 x 50 mm polyaxial reduction and 7.5 x 55 mm polyaxial pedicle screws were then placed into the left-sided L5 and S1 pedicles, respectively, underthe guidance of intraoperative lateral fluoroscopy. Intraoperative stimulation of these pedicle screws demonstrated a threshold exceeding 11 mA at the L5 level and a threshold exceeding 20 mA at the S1 level. The sponge and Gelfoam packing were then removed from the right-sided wound. The transverse processes of L5 and sacral ala were then decorticated using the high-speed drill. A combination of BMP-2 allograft, morcellized autograft, and VITOSS allograft was then packed over the transverse processes and sacral ala to enact the posterolateral arthrodesis. 5.5 x 30 mm and 5.5 x 35 mm prebent titanium rods were then set through the heads of the S1 pedicle screws on the left and right, respectively. The S1 pedicle screws were then provisionally secured to the rods using locking caps and the provisional otr hazmat company driver. The spondylolisthesis was then reduced by reduction of the L5 reduction screws to the rods using the reduction caps and their associated otr hazmat company driver. The L5 pedicle screws were then secured to the cornelia using locking caps on the provisional otr hazmat company driver. Complete reduction of the spondylolisthesis was visualized on intraoperative fluoroscopy. The pedicle screws were then secured to the rods under gentle compression using the final youth development professional & pedicle screw compression instruments. The gelfoamwas then removed from the epidural space. Morphine paste was then mixed, and placed over the exposed thecal sac and nerve roots. The Quadrant retractors were then collapsed and removed from the wounds. Final AP and lateral fluoroscopic images were then obtained to verify appropriate hardware placement and lumbar spinal alignment. The paraspinous musculature and muscular fascia were then reapproximated using layers of interrupted 0 Vicryl. Dermis was approximated using interrupted 2-0 Vicryl in a buried fashion. The skin was then closed using a running 4-0 Monocryl in subcuticular fashion. Mast isol, Steri-Strips, and sterile dressings were then applied. Sponge, instrument, and needle counts correct x2 at the end of the case. ESTIMATED BLOOD LOSS: 100 mL. COMPLICATIONS: None. Continuous running EMG monitoring of the lower extremities was performed throughout the entirety ofthe case, and no significant abnormalities were noted. DISPOSITION: The patient was extubated, and transferred to PACU in stable condition, moving all of her extremities well. Please make note that I was present for, and performed the entirety of the procedure. Sean Deleon M.D. Neurosurgeon [facility] NGUAL MANAGER * Operative - Sean Deleon MD - 01/17/2011 4:56 PM CST [facility] Brief Operative Note PATIENT: Finesse Bolivar : 1970 ACCT#: [id number] MR#: [id number] DATE OF SURGERY: 01/17/2011 Surgeon: Sean Deleon MD Learning Disabilities Resource Teacher: GARTH Benjamin Preoperative Diagnosis: 1. L5-S1 isthmic spondylolisthesis, degenerative disc disease, and left foraminal stenosis. Postoperative Diagnosis: Same Procedure: 1. L5-S1 MIS decompression, TLIF, open reduction of spondylolisthesis, and IPSF. Anesthesia: General Findings: Aberrant left L5 nerve root exiting below the left S1 pedicle with the left S1 nerve root. Drains: none, hammonds catheter Tissue removed/specimens: No specimen EBL: 100 cc Complications: none Disposition: Extubated, transferred in Stable condition to PACU Sean Deleon M.D. Neurosurgeon [facility] NGUAL MANAGER documented in this encounter Miscellaneous Notes * Miscellaneous Scans - Document, Scanned - 01/22/2011 10:37 AM BILINGUAL MANAGER * Miscellaneous Scans - Document, Scanned - 01/19/2011 10:53 AM BILINGUAL MANAGER * Miscellaneous Scans - Document, Scanned - 01/19/2011 10:53 AM BILINGUAL MANAGER * Miscellaneous Scans - Document, Scanned - 01/19/2011 10:53 AM BILINGUAL MANAGER * Miscellaneous Scans - Document, Scanned - 01/19/2011 10:53 AM BILINGUAL MANAGER * Miscellaneous Scans - Document, Scanned - 01/19/2011 10:53 AM BILINGUAL MANAGER * Miscellaneous Scans - Document, Scanned - 01/19/2011 10:53 AM BILINGUAL MANAGER documented in this encounter Plan of Treatment Not on file documented as of this encounter Procedures Procedure Name Priority Date/Time Associated Diagnosis Comments HGB HCT PANEL Routine 01/18/2011 1:15 AM BILINGUAL MANAGER XR LUMBAR SPINE 2 OR 3VW Routine 01/17/2011 4:50 PM BILINGUAL MANAGER Back pain HCG URINE QUALITATIVE - POINT OF CARE Routine 01/17/2011 10:18 AM BILINGUAL MANAGER documented in this encounter Results * HGB HCT PANEL (01/18/2011 1:15 AM BILINGUAL MANAGER) Hemoglobin 13.1 12.0 - 16.0 gm/dl [facility] Hematocrit 39.5 36.0 - 48.0 % [facility] BLOOD SPECIMEN / Unknown 01/18/2011 1:15 AM BILINGUAL MANAGER 01/18/2011 1:29 AM BILINGUAL MANAGER Sean Deleon MD LAB - HEMATOLOGY ORD ERABLES Performing Organization Address [facility] Co de Phone Number [facility] [id number] [place] [address] * XR LUMBAR SPINE 2 OR 3 VW (01/17/2011 4:50 PM BILINGUAL MANAGER) Anatomical Region Laterality Modality Spine Radiographic Lindsay ging 01/18/2011 10:0 4 AM BILINGUAL MANAGER Narrative 01/18/2011 10:04 AM BILINGUAL MANAGER INDICATION: Back pain AP and lateral fluoroscopic views of the lumbosacral spine are provided. There is posterior metallic fusion at L5-S1 with an interbody device. Alignment is unremarkable on these spot fluoroscopic images. No complication is evident. Procedure Note Alma Tillman MD - 01/18/2011 INDICATION: Back pain AP and lateral fluoroscopic views of the lumbosacral spine are provided. There is posterior metallic fusion at L5-S1 with an interbody device. Alignment is unremarkable on these spot fluoroscopic images. No complication is evident. Sean Deleon MD DIAGNOSTIC IMAGING O RDERABLES * HCG URINE QUALITATIVE - POINT OF CARE (01/17/2011 10:18 AM BILINGUAL MANAGER) HCG Qual Urine neg Negative [facility] QC Verified yes Yes [facility] POC T TESTING Urine specimen (specimen) URINE / Unknown 01/17/2011 10:18 AM BILINGUAL MANAGER Sg Damon MD LAB - POINT OF CARE ORDERABLES Performing Organization Address [facility] Co de Phone Number [facility] [id number] [place] [address] documented in this encounter Visit Diagnoses Diagnosis Backache, unspecified documented in this encounter Administered Medications Inactive Administered Medications - up to 3 most recent administrations Medication Order MAR Action Action Date Dose Rate Site 0.9% nacl iv bolus 500 mL, Administer over 60 Minutes, ONCE, 1 dose, On Fri01/18/11 at 0045 $ Given 01/18/2011 12:37 AM BILINGUAL MANAGER 500 mL amLODIPine (NORVASC) tablet 5 mg 5 mg, Oral, DAILY, First dose on Fri01/18/11 at 0900, Until Discontinued $ Given 01/18/2011 3:32 PM BILINGUAL MANAGER 5 mg carisoprodol (SOMA) tablet 350 mg 350 mg, Oral, 3 TIMES DAILY, First dose on Fri01/17/11 at 2130, Until Discontinued $ Given 01/18/2011 12:55 PM BILINGUAL MANAGER 350 mg $ Given 01/18/2011 8:37 AM BILINGUAL MANAGER 350 mg $ Given 01/17/2011 9:32 PM BILINGUAL MANAGER 350 mg ceFAZolin (ANCEF) IVPB 1 g 1 g, at 100 mL/hr, Intravenous, EVERY 8 HOURS, 2 doses, First dose on Fri01/17/11 at 2200, Last dose on Fri01/18/11 at 0600, Give first dose 6 hours after last dose in surgery. Last dose to be completed within 24 hours of close of incision. $ Given 01/18/2011 6:24 AM BILINGUAL MANAGER 1 g 100 mL/hr $ Given 01/17/2011 9:31 PM BILINGUAL MANAGER 1 g 100 mL/hr cyclobenzaprine (FLEXERIL) tablet 10 mg 10 mg, Oral, EVERY 8 HOURS PRN, Muscle Spasms, Starting on Fri01/17/11 at 2046, Until 01/19/11 at 0446 $ Given 01/18/2011 7:34 AM BILINGUAL MANAGER 10 mg dexamethasone (DECADRON) tablet 4 mg 4 mg, Oral, 3 TIMES DAILY, First dose on Fri01/18/11 at 1000, Until Discontinued, Take large doses with meals and take antacids between meals to prevent peptic ulcer $ Given 01/18/2011 3:19 PM BILINGUAL MANAGER 4 mg $ Given 01/18/2011 11:31 AM BILINGUAL MANAGER 4 mg docusate sodium (COLACE) capsule 100 mg 100 mg, Oral, 2 TIMES DAILY, First dose on Fri01/17/11 at 2100, Until Discontinued $ Given 01/18/2011 8:37 AM BILINGUAL MANAGER 100 m g $ Given 01/17/2011 9:30 PM BILINGUAL MANAGER 100 mg eye wash ophthalmic solution ADS Med 1 dose, Starting on Fri01/17/11 at 2026, Until Fri01/17/11 at 203, BRE PALMER: Cabinet Override $ Given 01/17/2011 8:33 PM BILINGUAL MANAGER 3 drops famotidine (PEPCID) tablet 20 mg 20 mg, Oral, PRE-OP ONCE, 1 dose, Administer to patients 18 years of age and older. $ Given 01/17/2011 10:28 AM BILINGUAL MANAGER 20 mg gabapentin (NEURONTIN) capsule 300 mg 300 mg, Oral, 3 TIMES DAILY, First dose on Fri01/18/11 at 1000, Until Discontinued $ Given 01/18/2011 3:19 PM BILINGUAL MANAGER 300 mg $ Given 01/18/2011 10:24 AM BILINGUAL MANAGER 300 mg HYDROmorphone (DILAUDID) 1 mg/ml injection ADS Med 1 dose, Starting on Fri01/17/11 at 1718, Until Fri01/17/11 at 1720, BRE PALMER: Cabinet Override HYDROmorphone (DILAUDID) injection 0.5 mg 0.5 mg, Intravenous, POST-OP MULTIPLE, Starting on Fri01/17/11 at 1931, Until Fri01/17/11 at 2044, 0.5 mg every 10 minutes PRN for pain of 5-10 on pain scale. Up to 3 mg maximum $ Given 01/17/2011 7:25 PM BILINGUAL MANAGER 0.5 mg $ Given 01/17/2011 6:47 PM BILINGUAL MANAGER 0.5 mg $ Given 01/17/2011 6:17 PM BILINGUAL MANAGER 0.5 mg hydrOXYzine hcl (VISTARIL) 50 mg/ml injection ADS Med 1 dose, Starting on Fri01/17/11 at 1719, Until Fri01/17/11 at 1720, BRE PALMER: Cabinet Override $ Given 01/17/2011 5:20 PM BILINGUAL MANAGER 50 mg Right Arm lactated ringers infusion at 75 mL/hr, Intravenous, CONTINUOUS, Starting on Fri01/17/11 at 2100, Until Fri01/18/11 at 1355 $ New Bag/Syringe 01/17/2011 9:00 PM BILINGUAL MANAGER 75 mL/hr midazolam (VERSED) 1 mg/ml injection ADS Med 1 dose, Starting on Carisa 01/17/11 at 1728, Until Carisa 01/17/11 at 1728, BRE PALMER: Cabinet Override $ Given 01/17/2011 7:25 PM BILINGUAL MANAGER 0.5 mg $ Given 01/17/2011 6:47 PM BILINGUAL MANAGER 0.5 mg $ Given 01/17/2011 6:23 PM BILINGUAL MANAGER 0.5 mg oxycodone-acetaminophen (PERCOCET) 5-325 MG tablet 1-2 Tab 1-2 tablet, Oral, EVERY 4 HOURS PRN, Pain, Starting on Carisa 01/17/11 at 204, Until 01/19/11 at 0446, For Severe Pain (Pain Scale 7-10 or Severe per patient description) or pain not relieved by other analgesics. Maximum allowable acetaminophen amount = 4 Grams / 24 hours. $ Given 01/18/2011 12:55 PM BILINGUAL MANAGER 2 tablets $ Given 01/18/2011 8:37 AM BILINGUAL MANAGER 2 tablets $ Given 01/18/2011 4:20 AM BILINGUAL MANAGER 2 tablets senna (SENOKOT) tablet 8.6 mg 8.6 mg (1 tablet), Oral, 2 TIMES DAILY PRN, Constipation, Starting on Carisa 01/17/11 at 2046, Until 01/19/11 at 0446 $ Given 01/18/2011 3:23 PM BILINGUAL MANAGER 8.6 mg tetracaine 0.5% ophthalmic solution ADS Med 1 dose, Starting on Carisa 01/17/11 at 2025, Until Carisa 01/17/11 at 2033, BRE PALMER: Cabinet Override $ Given 01/17/2011 8:33 PM BILINGUAL MANAGER 1 drop tobramycin (TOBREX) ophthalmic ointment ADS Med 1 dose, Starting on Carisa 01/17/11 at 2025, Until Carisa 01/17/11 at 2032, BRE PALMER: Cabinet Override $ Given 01/17/2011 8:33 PM BILINGUAL MANAGER 1 inch documented in this encounter Active and Recently Administered Medications Times are shown in BILINGUAL MANAGER. Scheduled Medication Order 01/16/2011 01/17/2011 01/18/2011 0.9% nacl iv bolus (COMPLETED) 500 mL, Administer over 60 Minutes, ONCE, 1 dose, On Fri01/18/11 at 0045 0037 ($ Given - Provider: Shantell Naidu RN)0137 (Due: Rx Stopped - Provider: Shantell Naidu RN) amLODIPine (NORVASC) tablet 5 mg (CANCELED) 5 mg, Oral, DAILY, First dose on Fri01/18/11 at 0900, Until Discontinued 1532 ($ Given - Provider: Nicole Johnson, CHEY) carisoprodol (SOMA) tablet 350 mg 350 mg, Oral, 3 TIMES DAILY, First dose on Fri01/17/11 at 2130, Until Discontinued 2131 ($ Given - Provider: Shantell Naidu RN) 0837 ($ Given - Provider: Nicole Johnson RN)1255 ($ Given - Provider: Nicole Johnson RN) ceFAZolin (ANCEF) IVPB 1 g (COMPLETED) 1 g, at 100 mL/hr, Intravenous, EVERY 8 HOURS, 2 doses, First dose on Fri01/17/11 at 2200, Last dose on Fri01/18/11 at 0600, Give first dose 6 hours after last dose in surgery. Last dose to be completed within 24 hours of close of incision. 2130 ($ Given - Provider: Shantell Naidu RN)2219 (Rx Stopped - Provider: Shantell Naidu RN) 0624 ($ Given - Provider: Shantell Naidu RN)0654 (Rx Stopped - Provider: Nicole Johnson, CHEY) dexamethasone (DECADRON) tablet 4 mg (CANCELED) 4 mg, Oral, 3 TIMES DAILY, First dose on Fri01/18/11 at 1000, Until Discontinued, Take large doses with meals and take antacids between meals to prevent peptic ulcer 1131 ($ Given - Provider: Nicole Johnson RN - Comment: waiting for med to come from pharmacy)1519 ($ Given - Provider: Nicole Johnson RN) docusate sodium (COLACE) capsule 100 mg (CANCELED) 100 mg, Oral, 2 TIMES DAILY, First dose on Fri01/17/11 at 2100, Until Discontinued 2129 ($ Given - Provider: Shantell Naidu RN) 0837 ($ Given - Provider: Nicole Johnson RN) famotidine (PEPCID) tablet 20 mg (COMPLETED) 20 mg, Oral, PRE-OP ONCE, 1 dose, Administer to patients 18 years of age and older. 1028 ($ Given - Provider: Ina Fields RN) gabapentin (NEURONTIN) capsule 300 mg 300 mg, Oral, 3 TIMES DAILY, First dose on Fri01/18/11 at 1000, Until Discontinued 1024 ($ Given - Provider: Nicole Johnson RN)1519 ($ Given - Provider: Nicole Johsnon RN) HYDROmorphone (DILAUDID) injection 0.5 mg (CANCELED) 0.5 mg, Intravenous, POST-OP MULTIPLE, Starting on Carisa 01/17/11 at 1931, Until Carisa 01/17/11 at 2045, 0.5 mg every 10 minutes PRN for pain of 5-10 on pain scale. Up to 3 mg maximum 1717 ($ Given - Provider: Bre Palmer RN)1720 ($ Given - Provider: Bre Palmer RN)1731 ($ Given - Provider: Bre Palmer RN)1817 ($ Given - Provider: Bre Palmer RN)1847 ($ Given - Provider: Bre Palmer RN)1925 ($ Given - Provider: Bre Palmer RN) Continuous Medication Order 01/16/2011 01/17/2011 01/18/2011 lactated ringers infusion (CANCELED) at 75 mL/hr, Intravenous, CONTINUOUS, Starting on Carisa 01/17/11 at 2100, Until Fri01/18/11 at 1355 2100 ($ New Bag/Syringe - Provider: Shantell Naidu RN) 0037 (Stopped - Provider: Shantell Naidu RN) PRN Medication Order 01/16/2011 01/17/2011 01/18/2011 acetaminophen (TYLENOL) tablet 650 mg 650 mg, Oral, EVERY 6 HOURS PRN, Pain, Starting on Carisa 01/17/11 at 2046, Until 01/19/11 at 0446, Mild Pain (Pain Score 1-3 or Mild per patient description) Maximum allowable acetaminophen amount = 4 Grams / 24 hours. cyclobenzaprine (FLEXERIL) tablet 10 mg (CANCELED) 10 mg, Oral, EVERY 8 HOURS PRN, Muscle Spasms, Starting on Carisa 01/17/11 at 2046, Until 01/19/11 at 0446 0734 ($ Given - Prov ider: Nicole Johnson, CHEY) oxycodone-acetaminophen (PERCOCET) 5-325 MG tablet 1-2 Tab 1-2 tablet, Oral, EVERY 4 HOURS PRN, Pain, Starting on Carisa 01/17/11 at 2046, Until 01/19/11 at 0446, For Severe Pain (Pain Scale 7-10 or Severe per patient description) or pain not relieved by other analgesics. Maximum allowable acetaminophen amount = 4 Grams / 24 hours. 0015 ($ Given - Prov ider: Shantell Naidu RN)0420 ($ Given - Provider: Shantell Naidu RN)0837 ($ Given - Provider: Nicole Johnson, CHEY)1255 ($ Given - Provider: Nicole Johnson, CHEY) senna (SENOKOT) tablet 8.6 mg (CANCELED) 8.6 mg (1 tablet), Oral, 2 TIMES DAILY PRN, Constipation, Starting on Carisa 01/17/11 at 2046, Until 01/19/11 at 0446 1523 ($ Given - Prov ider: Nicole Johnson, CHEY) No Frequency Medication Order 01/16/2011 01/17/2011 01/18/2011 eye wash ophthalmic solution ADS Med (COMPLETED) 1 dose, Starting on Carisa 01/17/11 at 2025, Until Carisa 01/17/11 at 2032, BRE PALMER: Cabinet Override 2032 ($ Given - Provider: Bre Palmer, CHEY) hydrOXYzine hcl (VISTARIL) 50 mg/ml injection ADS Med (COMPLETED) 1 dose, Starting on Carisa 01/17/11 at 1719, Until Carisa 01/17/11 at 1720, BRE PALMER: Cabinet Override 1720 ($ Given - Provider: Bre Palmer, RN) midazolam (VERSED) 1 mg/ml injection ADS Med (COMPLETED) 1 dose, Starting on Carisa 01/17/11 at 1728, Until Carisa 3/3/11 at 1728, BRE PALMER: Cabinet Override 1728 ($ Given - Provider: Bre Palmer, CHEY)1823 ($ Given - Provider: Bre Palmer RN)1847 ($ Given - Provider: Bre Palmer RN)1925 ($ Given - Provider: Bre Palmer RN) tetracaine 0.5% ophthalmic solution ADS Med (COMPLETED) 1 dose, Starting on Carisa 01/17/11 at 2025, Until Carisa 01/17/11 at 2032, BRE PALMER: Cabinet Override 2032 ($ Given - Provider: Bre Palmer RN) tobramycin (TOBREX) ophthalmic ointment ADS Med (COMPLETED) 1 dose, Starting on Carisa 01/17/11 at 2025, Until Carisa 01/17/11 at 2032, BRE PALMER: Cabinet Override 2032 ($ Given - Provider: Bre Palmer, CHEY) documented in this encounter
--- OUTSIDE RECORDS SUMMARY | 2024-11-15 03:21 | XMS_ITS | Encounter Summary ---
Author Organization [facility] Healthcare Address [address] [place] [address] Care Team Providers Care Rn Complex Care Name Role Phone Laureano Lantigua MD Primary Care Provider [phone] Tony Washington MD Unavailable [phone] Anahy Rosales MD Unavailable [phone] Nathalia Rodas PT Unavailable Unavailable Reason for Referral * MRI/CAT/PET Scan (Routine) - Closed Specialty Diagnoses / Procedures Referred By Contac t Referred To Contact Radiology Diagnoses Left hip pain Procedures MRI Hip Arthrogram Left W Contrast Cecilia Conn MD [address] [facility] [place] [address] Phone: tel: fax: [facility] [address] [place] [address] Referral ID Status Reason Start Date Expiration Date Visits Re quested Visits Authorized [id number] Closed 08/04/2024 09/03/2025 1 1 Reason for Visit * MRI/CAT/PET Scan (Routine) - Closed Specialty Diagnoses / Procedures Referred By Contac t Referred To Contact Radiology Diagnoses Left hip pain Procedures MRI Hip Arthrogram Left W Contrast Cecilia Conn MD [address] [facility] [address] [place] [address] Phone: tel: fax: [facility] [id number] [address] Referral ID Status Reason Start Date Expiration Date Visits Re quested Visits Authorized [id number] Closed 08/04/2024 09/03/2025 1 1 Encounter Details Date Type Department Care Team (Latest Contact Info) Description 08/12/2024 3:02 PM CDT - 08/12/2024 11:59 PM CDT Hospital Encounter [facility] [id number] [id number] Left hip pain Discharge Disposition: Discharge to home or self care Social History Tobacco Use Types Packs/Day Years Used Date Smoking Tobacco: Never Smokeless Tobacco: Never Alcohol Use Standard Drinks/Week Comments Yes 0 (1 standard drink = 0.6 oz pur e alcohol) AUDIT-C Answer Date Recorded Q1: How often do you have a drink containing alc ohol? 2-3 times a week 07/29/2024 Q2: How many drinks containi ng alcohol do you have on a typical day when you are drinking? 1 or 2 07/29/2024 Q3: How often do you have si x or more drinks on one occasion? Never 07/29/2024 PHQ-2 Answer Date Recorded PHQ-2 Total Score (If total score is 3 or more points, staff should administer the PHQ-9) 0 01/28/2023 Personal Safety Answer Date Recorded Have you ever been in or are you currently in a harmful physical or emotional relationship or is someone making you feel afraid or unsafe? Denies 03/19/2024 Comments No Sex and Gender Information Value Date Recorded Sex Assigned at Not on file Legal Sex Female 1:37 AM ELEMENTARY INSTRUCTIONAL COACH Gender Identity Female 10/03/2023 10:05 AM ELEMENTARY INSTRUCTIONAL COACH Sexual Orientation Straight 10/03/2023 10 :05 AM ELEMENTARY INSTRUCTIONAL COACH documented as of this encounter Medications at Time of Discharge albuterol HFA (PROVENTIL HFA,VENTOLIN HFA,PROAIR HFA) 90 mcg/actuation inhaler 2 puffs qid prn 1 each 11 01/04/2022 buPROPion SR (WELLBUTRIN SR) 100 mg 12 hr tablet Take 1 tablet (100 mg total) by mouth 2 (two) times a day 03/03/2024 busPIRone (BUSPAR) 15 mg tablet Concerta 36 mg CR tablet estradioL (VIVELLE-DOT) 0.075 mg/24 hrIndications:Vasom otor Symptoms associated with Menopause Place 1 patch on the skin 2 (two) times a week 26 patch 3 02/16/2024 5 ferrous sulfate 325 mg (65 mg of elemental iron) tabletIndications:I mehreen Deficiency Anemia Take 1 tablet (325 mg total) by mouth daily with breakfast magnesium phosphate, bulk, powderIndications:s upplement Take 1 tablet by mouth every morning meloxicam (MOBIC) 15 mg tablet TAKE 1 TABLET (15 MG TOTAL) BY MOUTH DAILY. 90 tablet 08/02/2024 methylphenidate HCl (RITALIN) 5 mg tabletIndications:A ttention-Deficit Hyperactivity Disorder Take 1 tablet (5 mg total) by mouth daily with lunch 08/28/2023 oxyCODONE-acetamino phen (PERCOCET) 5-325 mg per tabletIndications:P ain Take 1 tablet by mouth every 4 (four) hours as needed for pain 30 tablet 01/22/2024 traZODone (DESYREL) 50 mg tabletIndications:s leep Take 1 tablet (50 mg total) by mouth nightly 02/03/2023 progesterone (PROMETRIUM) 200 mg capsuleIndications: Symptomatic menopausal or female climacteric states One pill vaginally every night for 12 days every 3 months 12 capsule 3 02/16/2024 4 sucralfate (CARAFATE) suspension 1 gram/10 mL Take 5 mL (0.5 g total) by mouth 4 (four) times a day 1800 mL 05/07/2024 4 documented as of this encounter Discharge Disposition Disposition Code Departure Means Destination Discharge to home or self care documented in this encounter Plan of Treatment Not on file documented as of this encounter Procedures Procedure Name Priority Date/Time Associated Diagnosis Comments MRI HIP ARTHROGRAM LEFT W CONTRAST Schedule Routine, Read Routine (OP Routine) 08/12/2024 5:00 PM CDT Left hip pain documented in this encounter Results * MRI Hip Arthrogram Left W Contrast (08/12/2024 5:00 PM CDT) Anatomical Region Laterality Modality Lower Extremities Left Magnetic Reson ance 08/13/2024 9:20 AM CDT Impressions 08/13/2024 1:38 PM CDT 1. ??Progressive moderate left hip chondrosis and moderate synovitis. 2. ??Blunted irregular left acetabular labrum status post debridement surgery. ??No evidence of recurrent displaced labral tear. Dictated by: Jarek Wang MD The radiology attending physician has personally reviewed this study, and had reviewed and/or edited this written report and agrees with it. Electronically signed by: Galindo Sultana M.D. Narrative 08/13/2024 1:38 PM CDT EXAMINATION: 1. MRI left hip with contrast HISTORY: ??53-year-old woman with left leg radiculopathy and back pain. 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 TECHNIQUE: An MRI of the left hip and pelvis was performed following the fluoroscopic guided intra-articular injection of 12 mL of a (1:200) dilution of Dotarem in sterile saline, Optiray 350, and 1% lidocaine. ??Please see separate dictation for details of the procedure. An MR examination was then performed using a multi-coil array. Coronal short TR/TE and fast spin echo images of the entire pelvis were supplemented by small field of view, high resolution images of the hip. The ??left hip was examined in the transverse, oblique transverse, sagittal and coronal plane with short TR/TE and fast spin echo technique. FINDINGS: Comparison is made to radiographs dated 06/30/2024 and MRI dated 12/31/2022. There is a blunted, irregular appearance of the left superior and anterosuperior labrum. ??No labral displacement from the acetabulum to suggest recurrent displaced tear. ??A defect in the superolateral joint capsule is noted. ??There is moderate left hip synovitis. ??There is progressive moderate superior and posterior left femoral head chondrosis with mild subchondral edema. ??There is bilateral gluteal minimus tendinopathy and left gluteal medius tendinopathy. ??Hamstring tendinopathy is also noted. Partially imaged lumbosacral posterior spinal fusion instrumentation with associated metal artifact.There is bilateral mild greater trochanteric bursitis. ??There is atrophy of the paraspinal musculature. ??Otherwise muscle bulk is normal. ??The sciatic nerves appear normal. No pelvic lymphadenopathy. ??Imaged pelvic viscera are unremarkable. Procedure Note Galindo Sultana MD PhD - 08/13/2024 EXAMINATION: 1. MRI left hip with contrast HISTORY: 53-year-old woman with left leg radiculopathy and back pain. 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 TECHNIQUE: An MRI of the left hip and pelvis was performed following the fluoroscopic guided intra-articular injection of 12 mL of a (1:200) dilution of Dotarem in sterile saline, Optiray 350, and 1% lidocaine. Please see separate dictation for details of the procedure. An MR examination was then performed using a multi-coil array. Coronal short TR/TE and fast spin echo images of the entire pelvis were supplemented by small field of view, high resolution images of the hip. The left hip was examined in the transverse, oblique transverse, sagittal and coronal plane with short TR/TE and fast spin echo technique. FINDINGS: Comparison is made to radiographs dated 06/30/2024 and MRI dated 12/31/2022. There is a blunted, irregular appearance of the left superior and anterosuperior labrum. No labral displacement from the acetabulum to suggest recurrent displaced tear. A defect in the superolateral joint capsule is noted. There is moderate left hip synovitis. There is progressive moderate superior and posterior left femoral head chondrosis with mild subchondral edema. There is bilateral gluteal minimus tendinopathy and left gluteal medius tendinopathy. Hamstring tendinopathy is also noted. Partially imaged lumbosacral posterior spinal fusion instrumentation with associated metal artifact.There is bilateral mild greater trochanteric bursitis. There is atrophy of the paraspinal musculature. Otherwise muscle bulk is normal. The sciatic nerves appear normal. No pelvic lymphadenopathy. Imaged pelvic viscera are unremarkable. IMPRESSION: 1. Progressive moderate left hip chondrosis and moderate synovitis. 2. Blunted irregular left acetabular labrum status post debridement surgery. No evidence of recurrent displaced labral tear. Dictated by: Jarek Wang MD The radiology attending physician has personally reviewed this study, and had reviewed and/or edited this written report and agrees with it. Electronically signed by: Galindo Sultana M.D. Cecilia uRggiero MD IMG MRI PROCEDURES Fi nal Result documented in this encounter Visit Diagnoses Diagnosis Left hip pain Pain in joint, pelvic region and thigh documented in this encounter Care Teams Rn Complex Care Relationship Specialty Start Date End Date Laureano Lantigua MD [address] [place] [id number] PCP - General Internal Medicine 07/30/18 Tony [place] MD [address] [place] [address] DR [address] [place] [id number] Chemist Assistant Obstetrics and Gynecology 11/16/18 Anahy Rosales MD [address] [place] [address] DR [address] [place] [id number] Referring Physician Psychiatry 11/16/18 Nathalia Rodas, PT Physical Therapist Physical Therapy 02/14/23 documented as of this encounter
--- OUTSIDE RECORDS SUMMARY | 2024-11-15 03:21 | XMS_ITS | Encounter Summary ---
Author Organization [facility] Address [address] [place] [address] Phone Care Team Providers Care Social Work Administrator Name Role Phone Laureano Lantigua MD Primary Care Provider [phone] Tony [place] MD Unavailable [phone] Anahy Rosales MD Unavailable [phone] Nathalia Rodas PT Unavailable Unavailable Reason for Referral * Consultation (Routine) - Closed Specialty Diagnoses / Procedures Referred By Contac t Referred To Contact Diagnoses Lumbar back pain Charley Carter MD [address] [place] [address] Phone: tel: fax: [facility] [address] [facility] [address] [place] [address] Phone: tel: Referral ID Status Reason Start Date Expiration Date V isits Requested Visits Authorized [id number] Closed Specialty Services Required 07/29/2024 01/28/2026 1 1 Question Answer Please select the performing region: [facility] (All Locations) [[id number]] Please select the performing department: [facility] [address] [[id number]] # of visits: 1 Comments Ref for Pain psychologist * Consultation (Routine) - Pending Review Specialty Diagnoses / Procedures Referred By Contac t Referred To Contact Pain Management Diagnoses Lumbar back pain Charley Carter MD [address] [place] [address] Phone: tel: fax: [facility] [address] [place] [address] Referral ID Status Reason Start Date Expiration Date Visits Requested Visits Authorized [id number] Pending Review Specialty Services Required 07/29/2024 08/28/2025 1 1 Question Answer Please select the performing region: [facility] [[id number]] # of visits: 1 Comments Consult for Spinal Cord Stimulator * Consultation (Routine) - Pending Review Specialty Diagnoses / Procedures Referred By Contac t Referred To Contact Physical Therapy Diagnoses Lumbar back pain Charley Carter MD [address] [place] [address] Phone: tel: fax: External Order Referral ID Status Reason Start Date Expiration Date Visits Requested Visits Authorized [id number] Pending Review Specialty Services Required 07/29/2024 08/28/2025 24 24 Question Answer PTRFR PT Evaluate and Treat Therapy options discussed with patient? Yes Location provided for therapy services is: Patient requested/Patient preferred Please select the performing region: External Order [[id number]] # of visits: 24 Comments Core Strengthening, Posture training, Joy exercises and therapeutic exercises for lumbar spine. Encounter Details Date Type Department Care Team (Late st Contact Info) Description 07/29/2024 Telephone [place] [id number] [facility] Medical Office Building [address] [place] [address] Charley Carter MD [address] [place] [address] Social History Tobacco Use Types Packs/Day Years [...] on file Legal Sex Female 1:37 AM SALES ORDER COORDINATOR Gender Identity Female 10/03/2023 10:05 AM SALES ORDER COORDINATOR Sexual Orientation Straight 10/03/2023 10 :05 AM SALES ORDER COORDINATOR documented as of this encounter Miscellaneous Notes * Telephone Encounter - Misty Chaney CMA - 07/29/2024 9:30 AM CDT Per the patient's most recent office visit, the provider's plan is as follows... Follow-up: PRN with an [facility] In Person ... with no follow up (spine) XR. Other orders: Referral to Physical Therapy (for Lumbar) - Location: [facility], Referral to Pyschology ( N/a); For Pain psychologist - Location: [facility], and Referral to Pain Management ( N/a); For SCS - Location: [facility] Pt would like to be notified of their scheduled appointments via During office visit (in-person) documented in this encounter Plan of Treatment Scheduled Referrals Name Type Priority Associated Diagnoses Order Schedule Ambulatory referral order to Physical Therapy - Outpatient Referral Routine Lumbar back pain Expected: 08/12/2024 (Approximate), Expires: 07/29/2025 Ambulatory referral to Pain Management Outpatient Referral Routine Lumbar back pain Expected: 08/12/2024 (Approximate), Expires: 07/29/2025 Ambulatory referral to Psychology Outpatient Referral Routine Lumbar back pain Expected: 08/12/2024 (Approximate), Expires: 07/29/2025 documented as of this encounter Visit Diagnoses Diagnosis Lumbar back pain- Primary Lumbago documented in this encounter Care Teams Social Work Administrator Relationship Specialty Start Date End Date Laureano Lantigua MD [address] [place] [address] PCP - General Internal Medicine 07/30/18 Tony [place] MD [address] [address] Sprayer Insecticide Obstetrics and Gynecology 11/16/18 Anahy Rosales MD [address] [address] Referring Physician Psychiatry 11/16/18 Nathalia Rodas, PT Physical Therapist Physical Therapy 02/14/23 documented as of this encounter
--- OUTSIDE RECORDS SUMMARY | 2024-11-15 03:21 | XMS_ITS | Encounter Summary ---
Author Organization [facility] Address [address] [place] [address] Phone Care Team Providers Care Education Manager Name Role Phone Laureano Lantigua MD Primary Care Provider [phone] Tony Washington MD Unavailable [phone] Anahy Rosales MD Unavailable [phone] Nathalia Rodas PT Unavailable Unavailable Reason for Visit * Consultation (Routine) - Closed Specialty Diagnoses / Procedures Referred By Contac t Referred To Contact Neurosurgery Diagnoses Lumbar radiculopathy Lumbar back pain Cecilia Conn MD [address] [facility] [address] [address] Phone: tel: fax: [facility] (All Locations) Referral ID Status Reason Start Date Expiration Date V isits Requested Visits Authorized [id number] Closed Specialty Services Required 07/14/2024 08/13/2025 1 1 Encounter Details Date Type Department Care Team (Late st Contact Info) Description 07/29/2024 8:30 AM CDT Office Visit [facility] Neurosurgery [facility] Medical Office Building [address] [place] [address] Charley Carter MD [address] [place] [address] Lumbar radiculopathy; Lumbar back pain Social History Tobacco Use Types Packs/Day [...] on file Legal Sex Female 1:37 AM WATCH REPAIR PERSON Gender Identity Female 10/03/2023 10:05 AM WATCH REPAIR PERSON Sexual Orientation Straight 10/03/2023 10 :05 AM WATCH REPAIR PERSON documented as of this encounter Last Filed Vital Signs Vital Sign Reading Time Taken Comments Blood Pressure - - Pulse - - Temperature - - Respiratory Rate - - Oxygen Saturation - - Inhaled Oxygen Concentration - - Weight 92.1 kg (203 lb) 07/29/2024 8:43 AM CDT Height 182.9 cm (6') 07/29/2024 8:43 AM CDT Body Mass Index 27.53 07/29/2024 8:43 AM CDT documented in this encounter Progress Notes * Charley Carter MD - 07/29/2024 8:30 AM CDT Patient: Finesse Ramirez Date of : 1970 Date of Service: 07/29/2024 Consult requested by: Cecilia Ruggiero* PCP: Laureano Lantigua MD New Patient Consult Chief Complaint: Left leg radiculopathy and back pain Final plan: Pain psychologist PT referral Pain management referral for spinal cord stimulator discussion HPI: Finesse Ramirez is a 54 y.o. female who presents today with complaints of left leg radiculopathy andback pain in the context of generalized pain from a previous fall from a horse. She has been dealing with chronic pain her entire life and she has a previous fusion that was done in 2002 at the levelof L5-S1. It appears that the fusion has never really helped with her pain. She currently experiences radicular pain in the left leg in the dermatomal distribution of L5. Concurrently, she also has issues with her left hip for which she is pending a hip replacement surgery. She also mentions that she has bowel and bladder issues with incontinence. Her walking has been difficult sometimes she needs a cane as her back pain and her hip is giving her difficulty to maintain appropriate balance. Recently, she lost a lot of weight and she had bariatric surgery. She is otherwise a very active person. ROS: Negative unless discussed in the HPI. 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 Cancer ([facility]) ([facility]) [facility] Female infertility Infertility, female Fibrocystic breast GERD (gastroesophageal reflux disease) Hammer toe Hammer toe; Comments: [facility] 06/27/2014 - HX OTHER MEDICAL Sinusitis, ADD, diverticulosis, obesity, OA, asthm HX OTHER MEDICAL Depression, with Anxiety; PCOS HX OTHER MEDICAL Missed Ab HX OTHER MEDICAL ; Outcome: [id number] week 7lb(s) 7 oz Male Hypercholesterolemia High cholesterol; Comments: [facility] 06/27/2014 - Hypertension Hypertension Motion sickness Retinal detachment Detachment of retina; Comments: [facility] 06/27/2014 - PAST SURGICAL HISTORY: Past Surgical History: Procedure Laterality Date ANKLE SURGERY Left 2008 Ankle surgery ANTERIOR CRUCIATE LIGAMENT REPAIR Right 2008 Right ACL repair BARIATRIC SURGERY CARDIAC CATHETERIZATION 2013 CARPAL TUNNEL RELEASE Bilateral 1992 Carpal tunnel release CATARACT EXTRACTION 2005 CHOLECYSTECTOMY 03/2018 COLONOSCOPY 03/27/2021 COMBINED HYSTEROSCOPY DIAGNOSTIC / D&C 03/12/2023 DILATION AND CURETTAGE OF UTERUS 2010 Missed Ab: Suction D&C; ELBOW SURGERY Left 11/07/2020 x2 ENDOMETRIAL ABLATION 03/12/2023 MOHS SURGERY 07/2021 Basil Cell OTHER SURGICAL HISTORY retina re-attachment, multiple surgeries; unknown date ROTATOR CUFF REPAIR Left 2008 ROTATOR CUFF REPAIR Left 2017 Rotator cuff repair SLEEVE GASTROPLASTY 2014 Laparoscopic Gastric Sleeve SPINAL FUSION 2010 Spinal fusion L5-S1 FAMILY HISTORY: Family History Problem Relation Age of Onset Hypertension Mother Hypertension; Heart disease Father Heart disease; Heart attack Father Myocardial Infarction; Hyperlipidemia Father High cholesterol; Hypertension Maternal Grandmother Hypertension; Heart attack Maternal Grandfather Myocardial Infarction; Cause of : Myocardial Infarction Prostate cancer Maternal Grandfather Cancer, prostate; Heart attack Cousin Myocardial Infarction; Heart disease Other Heart disease; Diabetes Other Diabetes mellitus; Anesthesia problems Neg Hx SOCIAL HISTORY: Smoking History: reports that she has never smoked. She has never used smokeless tobacco. Alcohol History: reports consuming alcoholic drinks 2-3 times a week, with a daily consumption of 1or 2 drinks. Patient denies daily consumption of 6 or more alcoholic drinks at one occasion. Drug use: reports no history of drug use. [place] [address]. 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 No limitations on activity. She is able to ambulate without any aid, but she mentions that she needs a cane sometimes as the back pain in the hippain can become worse. The patient is accompanied today by her SOCIAL HISTORY: Smoking Social History Tobacco Use Smoking Status Never Smokeless Tobacco Never Alcohol Alcohol Use: Not At Risk (07/29/2024) AUDIT-C Frequency of Alcohol Consumption: 2-3 times a week Average Number of Drinks: 1 or 2 Frequency of Binge Drinking: Never Drugs Social History Substance and Sexual Activity Drug Use No CURRENT OUTPATIENT MEDICATIONS: Current Outpatient Medications Medication Sig Dispense Refill albuterol HFA (PROVENTIL HFA,VENTOLIN HFA,PROAIR HFA) 90 mcg/actuation inhaler 2 puffs qid prn (Patient taking differently: Inhale 2 puffs every 6 (six) hours as needed for wheezing or shortness of breath 2 puffs qid prn) 1 each 11 buPROPion SR (WELLBUTRIN SR) 100 mg 12 hr tablet Take 1 tablet (100 mg total) by mouth 2 (two) times a day busPIRone (BUSPAR) 15 mg tablet Concerta 36 mg CR tablet estradioL (VIVELLE-DOT) 0.075 mg/[address] 1 patch on the skin 2 (two) times a week 26 patch 3 ferrous sulfate 325 mg (65 mg of elemental iron) tablet Take 1 tablet (325 mg total) by mouth dailywith breakfast magnesium phosphate, bulk, powder Take 1 tablet by mouth every morning meloxicam (MOBIC) 15 mg tablet Take 1 tablet (15 mg total) by mouth daily 90 tablet 0 methylphenidate HCl (RITALIN) 5 mg tablet Take 1 tablet (5 mg total) by mouth daily with lunch oxyCODONE-acetaminophen (PERCOCET) 5-325 mg per tablet Take 1 tablet by mouth every 4 (four) hours as needed for pain 30 tablet 0 progesterone (PROMETRIUM) 200 mg capsule One pill vaginally every night for 12 days every 3 months 12 capsule 3 sucralfate (CARAFATE) suspension 1 gram/10 mL Take 5 mL (0.5 g total) by mouth 4 (four) times a [id number] mL 0 traZODone (DESYREL) 50 mg tablet Take 1 tablet (50 mg total) by mouth nightly diazePAM (VALIUM) 5 mg tablet Take 1 tablet (5 mg total) by mouth every 6 (six) hours as needed foranxiety for up to 7 days 28 tablet 0 No current facility-administered medications for this visit. ALLERGIES: Allergies Allergen Reactions Erythromycin Rash Nylon Rash Stitches-severe redness: had to be removed early Morphine Nausea & Vomiting Vicodin [Hydrocodone-Acetaminophen] Vomiting PHYSICAL EXAM: Vitals Ht 182.9 cm (6') Wt 92.1 kg (203 lb) BMI 27.53 kg/m?? Wt Readings from Last 1 Encounters: 07/29/24 92.1 kg (203 lb) 182.9 cm (6') General: Alert, cooperative in NAD Respiratory: Normal respiratory effort and chest wall movement with respiration. Extremities: No cyanosis or edema bilateral upper and lower extremities. Musculoskeletal: no atrophy or fasciculations, normal tone, good turgor Integumentary: no rash, some nodes of scar tissue in bilateral buttocks Psychologic: appropriate affect, pleasant Neurologic: Mental Status:alert & oriented X 3 STRENGTH RIGHT LEFT Hip Flexion 5/5 5/5 Knee extension 5/5 5/5 Dorsiflexion 5/5 5/5 Plantar flexion 5/5 5/5 EHL 5/5 5/5 Review of Laboratory: None to review Review of Radiographic Studies: I personally reviewed the images and my findings were based on an MRI of her lumbar spine that was done in February 2024. 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 Her previous instrumentation appears intact on the scoliosis x-rays from today. Assessment/Plan: Mrs. Ramirez is a 54-year-old female with chronic pain issues presenting today with a L5 radiculopathy in the left leg. Her expectations of today's appointment were to discuss spinal cord stimulator. I did tell her and her that I am not an expert in spinal cord stimulator in that pain management is usually the department where they have a better idea as to which patient could qualify for it. Secondly, I did tell her that there was adjacent segment disease at the level above her fusion. However from her radicular pain standpoint, I do think that an injection or medication could probablyhelp her better than another fusion at this point. Another surgery for her back would probably be last resort as explained to her. Her other expectations for today were also for her to be able to undergo her hip replacement surgery based on her lower back health. What I told her is that I do not see a reason why her hip replacement surgery could not happen based on her lower back issues. The patient was quite emotional during the encounter today and I did tell her that I think she can benefit from a pain psychologist for chronic pain. I told her that they were very good here at [facility] and even at [facility]. Therefore, today, referred her to physiotherapy to continue working on her spine health, I sent a referral for a pain psychologist and also referral for pain management for her to have a discussion for the spinal cord stimulator. It was pleasure being involved in her care today and I remain available if she would want another discussion about spine surgery. Charley Carter MD Windlace Machine Operator of Neurosurgery Division of Spine Surgery [facility] in [place] Data Processing Operator completed with [email or web address]. Data Processing Operator variances may occur. documented in this encounter Plan of Treatment Not on file documented as of this encounter Visit Diagnoses Diagnosis Lumbar radiculopathy Thoracic or lumbosacral neuritis or radiculitis, unspecified Lumbar back pain Lumbago documented in this encounter Orders Outpatient Referral Count Last Ordered Date Fir st Ordered Date AMB REFERRAL TO NEUROSURGERY 1 07/29/2024 documented in this encounter Care Teams Education Manager Relationship Specialty Start Date End Date Laureano Lantigua MD [address] [place] [address] PCP - General Internal Medicine 07/30/18 Tony Washington MD [address] [place] [address] [address] [place] [address] Buzzsaw Operator Helper Obstetrics and Gynecology 11/16/18 Anahy Rosales MD [address] [place] [address] [address] [place] [address] Referring Physician Psychiatry 11/16/18 Nathalia Rodas, PT Physical Therapist Physical Therapy 02/14/23 documented as of this encounter
--- OUTSIDE RECORDS SUMMARY | 2024-11-15 03:21 | XMS_ITS | Encounter Summary ---
Author Organization [facility] Address [address] [place] [address] Care Team Providers Care Environmental Services Director Name Role Phone Laureano Lantigua MD Primary Care Provider [phone] Tony Washington MD Unavailable Anahy Rosales MD Unavailable [phone] Nathalia Rodas PT Unavailable Unavailable Encounter Details Date Type Department Care Team (Late st Contact Info) Description 10/25/2024 Telephone [facility] [address] [place] [phone] Tatyana Akbar RN Social History Tobacco Use Types Packs/Day Years Used Date Smoking Tobacco: Never Smokeless Tobacco: Never Alcohol Use Standard Drinks/Week Comments Yes 0 (1 standard drink = 0.6 oz pur e alcohol) AUDIT-C Answer Date Recorded Q1: How often do you have a drink containing alc ohol? Monthly or less 09/03/2024 Q2: How many drinks containi ng alcohol do you have on a typical day when you are drinking? 1 or 2 09/03/2024 Q3: How often do you have si x or more drinks on one occasion? Never 09/03/2024 PHQ-2 Answer Date Recorded PHQ-2 Total Score (If total score is 3 or more points, staff should administer the PHQ-9) 0 01/28/2023 Personal Safety Answer Date Recorded Have you ever been in or are you currently in a harmful physical or emotional relationship or is someone making you feel afraid or unsafe? Denies 10/26/2024 Comments No Sex and Gender Information Value Date Recorded Sex Assigned at Not on file Legal Sex Female 1:37 AM TRACTOR CRANE ENGINEER Gender Identity Female 10/03/2023 10:05 AM TRACTOR CRANE ENGINEER Sexual Orientation Straight 10/03/2023 10 :05 AM TRACTOR CRANE ENGINEER documented as of this encounter Miscellaneous Notes * Telephone Encounter - Debbie Villalba - 10/27/2024 8:33 AM CST Results given to Dr. CHING and sent to scanning TOR CRANE ENGINEER * Telephone Encounter - Tatyana Akbar RN - 10/25/2024 11:42 AM CST Giuliana from [facility] calling. Pt there for preop testing-scheduled for hip surgery on 11/08/24. BP is running high(around 100 on the bottom). Pt needs to be seen for clearance for the upcoming hip surgery. Needs ofc visit from today faxed [phone] please send when its available. Appt added for today at 2:45. I spoke with pt on the phone, she denies chest pain or shortness of breath-she states she doesn't want her hip replacement to be delayed-needs BP treated. Update to TLQ- TOR CRANE ENGINEER documented in this encounter Plan of Treatment Not on file documented as of this encounter Goals Goal Patient Goal Type Associated Problems Recent Progress Patient-Stated? Author CCM Chronic Pain Care Plan Chronic Care Management Yes Carrie Richardson, RN Note: Problem: Chronic Pain Goals: 1. Minimize further functional decline 2. Maximize quality of life 3. Control pain Strategies: - Activity/exercise program recommendation - Conservative stepwise pain medicine strategy with multi-disciplinary approach - Recommend healthy lifestyle strategies and compensatory methods as needed documented as of this encounter Visit Diagnoses Not on filedocumented in this encounter Care Teams Environmental Services Director Relationship Specialty Start Date End Date Laureano Lantigua MD [address] [place] [address] PCP - General Internal Medicine 07/30/18 Tony Washington MD [address] [facility] [address] [place] [address] Clerk Telegraph Service Obstetrics and Gynecology 11/16/18 Anahy Rosales MD [address] [facility] [address] [place] [address] Referring Physician Psychiatry 11/16/18 Nathalia Rodas, PT Physical Therapist Physical Therapy 02/14/23 documented as of this encounter
--- OUTSIDE RECORDS SUMMARY | 2024-11-15 03:21 | XMS_ITS | Encounter Summary ---
Author Organization [facility] Address [address] [place] [address] Phone Care Team Providers Care Calliope Player Name Role Phone Laureano Lantigua MD Primary Care Provider [phone] Tony Washington MD Unavailable [phone] Anahy Rosales MD Unavailable [phone] Nathalia Rodas PT Unavailable Unavailable Reason for Referral * Diagnostic Imaging (Routine) - Closed Specialty Diagnoses / Procedures Referred By Contac t Referred To Contact Diagnoses Left hip pain Procedures Injection Hip Left Arthro Only Cecilia Conn MD [address] [facility] [address] [place] [address] Phone: tel: fax: [facility] [address] [address] Referral ID Status Reason Start Date Expiration Date Visits Re quested Visits Authorized [id number] Closed 08/04/2024 09/03/2025 1 1 * MRI/CAT/PET Scan (Routine) - Closed Specialty Diagnoses / Procedures Referred By Jesse santana Referred To Contact Radiology Diagnoses Left hip pain Procedures MRI Hip Arthrogram Left W Contrast Cecilia Conn MD [address] [place] [address] Phone: tel: fax: [facility] [address] [place] [address] Referral ID Status Reason Start Date Expiration Date Visits Re quested Visits Authorized [id number] Closed 08/04/2024 09/03/2025 1 1 Encounter Details Date Type Department Care Team (Late st Contact Info) Description 08/04/2024 Orders Only [facility] Orthopaedic Surgery [address] [facility] Office Building [address] [place] [phone] Cecilia Conn MD [address] [place] [address] Left hip pain (Primary Dx) Social History Tobacco Use Types [...] on file Legal Sex Female 1:37 AM MOLD YARD SUPERVISOR Gender Identity Female 10/03/2023 10:05 AM MOLD YARD SUPERVISOR Sexual Orientation Straight 10/03/2023 10 :05 AM MOLD YARD SUPERVISOR documented as of this encounter Plan of Treatment Not on file documented as of this encounter Results * MRI Hip Arthrogram [...] Electronically signed by: Galindo Sultana M.D. Cecilia Ruggiero MD IMG MRI PROCEDURES Fi nal Result * Injection Hip Left Arthro Only (08/12/2024 4:20 PM CDT) Anatomical Region Laterality Modality Hip Left X-Ray Angiograph y 08/12/2024 4:39 PM CDT Impressions 08/12/2024 5:30 PM CDT Left hip joint injection under fluoroscopic for MR arthrography with evidence of superolateral capsular outpouching or paralabral cyst. Dictated by: Jarek Wang MD The radiology attending physician has personally reviewed this study, and had reviewed and/or edited this written report and agrees with it. Electronically signed by: Buddy Sharpe M.D. Narrative 08/12/2024 5:30 PM CDT EXAMINATION: ?? 1. Left hip joint injection 2. Fluoroscopic guidance for needle placement HISTORY: 54-year-old woman with left hip pain and prior left acetabular labral tear status post osteochondroplasty in ??September 2023, pre MR arthrogram TECHNIQUE: ??The risks, benefits and alternatives were discussed with the patient. ??Informed consent was obtained. ??Prior to beginning the procedure, [place] Protocol was performed to confirm the patient's identity and the planned procedure. ??The fluoroscopy time has been recorded in the electronic medical record. The patient was placed supine on the fluoroscopy table. ??The left hip joint was localized with fluoroscopic guidance. ?? The skin was prepped and draped in a standard sterile fashion. ??Using sterile technique, a 20 mL solution was prepared consisting of 10 mL of a 1:100 dilution of Dotarem gadolinium contrast in sterile saline, 5 mL 1% lidocaine, and 5 mL Optiray 350. Local anesthesia was achieved with subcutaneous injection of 1% lidocaine 4 mL. ??A 22-gauge ??needle was then introduced into the joint under fluoroscopic guidance. 12 mL of the 1:200 gadolinium contrast was injected with intermittent fluoroscopic visualization. The injection was performed by Dr. Jarek Wang . ?? There were no complications of the procedure. The patient was then transferred to the MR suite for MR arthrogram. Dr. Buddy Sharpe M.D., the attending radiologist, was present from the beginning to the end of the procedure. FINDINGS: Fluoroscopic images confirm intra-articular position of the needle tip with subsequent filling of the joint space. ??On fluoroscopic spot images during the procedure, there was faint filling of the joint capsule as well as immediate filling of an irregular outpouching along the superolateral joint space suggestive of repair labral cyst or capsular defect. ??The capsule was subsequently distended with the the remainder of the 12 mL of the solution. The results of the MR arthrogram are reported separately. Procedure Note Buddy Sharpe MD - 08/12/2024 EXAMINATION: 1. Left hip joint injection 2. Fluoroscopic guidance for needle placement HISTORY: 54-year-old woman with left hip pain and prior left acetabular labral tear status post osteochondroplasty in September 2023, pre MR arthrogram TECHNIQUE: The risks, benefits and alternatives were discussed with the patient. Informed consent was obtained. Prior to beginning the procedure, [place] Protocol was performed to confirm the patient's identity and the planned procedure. The fluoroscopy time has been recorded in the electronic medical record. The patient was placed supine on the fluoroscopy table. The left hip joint was localized with fluoroscopic guidance. The skin was prepped and draped in a standard sterile fashion. Using sterile technique, a 20 mL solution was prepared consisting of 10 mL of a 1:100 dilution of Dotarem gadolinium contrast in sterile saline, 5 mL 1% lidocaine, and 5 mL Optiray 350. Local anesthesia was achieved with subcutaneous injection of 1% lidocaine 4 mL. A 22-gauge needle was then introduced into the joint under fluoroscopic guidance. 12 mL of the 1:200 gadolinium contrast was injected with intermittent fluoroscopic visualization. The injection was performed by Dr. Jarek Wang . There were no complications of the procedure. The patient was then transferred to the MR suite for MR arthrogram. Dr. Buddy hSarpe M.D., the attending radiologist, was present from the beginning to the end of the procedure. FINDINGS: Fluoroscopic images confirm intra-articular position of the needle tip with subsequent filling of the joint space. On fluoroscopic spot images during the procedure, there was faint filling of the joint capsule as well as immediate filling of an irregular outpouching along the superolateral joint space suggestive of repair labral cyst or capsular defect. The capsule was subsequently distended with the the remainder of the 12 mL of the solution. The results of the MR arthrogram are reported separately. IMPRESSION: Left hip joint injection under fluoroscopic for MR arthrography with evidence of superolateral capsular outpouching or paralabral cyst. Dictated by: Jarek Wang MD The radiology attending physician has personally reviewed this study, and had reviewed and/or edited this written report and agrees with it. Electronically signed by: Buddy Sharpe M.D. Cecilia Ruggiero MD IMG XR PROCEDURES Fin al Result documented in this encounter Visit Diagnoses Diagnosis Left hip pain- Primary Pain in joint, pelvic region and thigh Left hip pain Pain in joint, pelvic region and thigh Left hip pain Pain in joint, pelvic region and thigh documented in this encounter Care Teams Calliope Player Relationship Specialty Start Date End Date Laureano Lantigua MD [address] [place] [address] PCP - General Internal Medicine 07/30/18 Tony Washington MD [address] [place] [address] Research And Development Manager Obstetrics and Gynecology 11/16/18 Anahy Rosales MD [address] [place] [address] Referring Physician Psychiatry 11/16/18 Nathalia Rodas, PT Physical Therapist Physical Therapy 02/14/23 documented as of this encounter
--- OUTSIDE RECORDS SUMMARY | 2024-11-15 03:21 | XMS_ITS | Encounter Summary ---
Author Organization [facility] Address [address] [place] [address] Phone Care Team Providers Care Newspaper Carrier Name Role Phone Laureano Lantigua MD Primary Care Provider [phone] Tony Washington MD Unavailable [phone] Anahy Rosales MD Unavailable [phone] Nathalia Rodas PT Unavailable Unavailable Reason for Referral * Consultation (Routine) - Closed Specialty Diagnoses / Procedures Referred By Contac t Referred To Contact Neurosurgery Diagnoses Lumbar radiculopathy Lumbar back pain Cecilia Conn MD [address] [facility] [address] [place] [address] Phone: tel: fax: [facility] (All Locations) Referral ID Status Reason Start Date Expiration Date V isits Requested Visits Authorized [id number] Closed Specialty Services Required 07/14/2024 08/13/2025 1 1 Question Answer Please select the performing region: [facility] (All Locations) [167] # of visits: 1 Comments Low back pain, lumbar radiculopathy Encounter Details Date Type Department Care Team (Late st Contact Info) Description 07/14/2024 Orders Only [facility] Orthopaedic Surgery [address] [facility] Medical Office Building [address] [place] [address] Cecilia Conn MD [address] [facility] [address] [place] [address] Lumbar radiculopathy (Primary Dx); Lumbar back pain Social History Tobacco Use Types Packs/Day Years Used Date Smoking Tobacco: Never Smokeless Tobacco: Never Alcohol Use Standard Drinks/Week Comments Yes 0 (1 standard drink = 0.6 oz pur e alcohol) AUDIT-C Answer Date Recorded Q1: How often do you have a drink containing alc ohol? 2-3 times a week 09/19/2023 Q2: How many drinks containi ng alcohol do you have on a typical day when you are drinking? 1 or 2 09/19/2023 Q3: How often do you have si x or more drinks on one occasion? Never 09/19/2023 PHQ-2 Answer Date Recorded PHQ-2 Total Score [...] on file Legal Sex Female 1:37 AM LOGISTICS INTERN Gender Identity Female 10/03/2023 10:05 AM LOGISTICS INTERN Sexual Orientation Straight 10/03/2023 10 :05 AM LOGISTICS INTERN documented as of this encounter Plan of Treatment Scheduled Referrals Name Type Priority Associated Diagnoses Order Schedule Ambulatory referral to Neurosurgery Outpatient Referral Routine Lumbar radiculopathy Lumbar back pain Expected: 07/28/2024 (Approximate), Expires: 07/14/2025 documented as of this encounter Visit Diagnoses Diagnosis Lumbar radiculopathy- Primary Thoracic or lumbosacral neuritis or radiculitis, unspecified Lumbar back pain Lumbago documented in this encounter Care Teams Newspaper Carrier Relationship Specialty Start Date End Date Laureano Lantigua MD [address] [place] [address] PCP - General Internal Medicine 07/30/18 Tony Washington MD [address] [place] [address] [address] [place] [address] Casting Molder Obstetrics and Gynecology 11/16/18 Anahy Rosales MD [address] [place] [address] [address] [place] [address] Referring Physician Psychiatry 11/16/18 Nathalia Rodas, PT Physical Therapist Physical Therapy 02/14/23 documented as of this encounter
--- OUTSIDE RECORDS SUMMARY | 2024-11-15 03:21 | XMS_ITS | Encounter Summary ---
Author Organization [facility] Address [address] [place] [address] Care Team Providers Care Microwave Technician Name Role Phone Laureano Lantigua MD Primary Care Provider [phone] Tony Washington MD Unavailable [phone] Anahy Rosales MD Unavailable [phone] Nathalia Rodas PT Unavailable Unavailable Reason for Visit * Reason Onset Date Comments 2 week follow up s/p left SIJ 09/17/2024 Encounter Details Date Type Department Care Team (Late st Contact Info) Description 09/17/2024 Telephone [facility] at [facility] [address] [address], [address] [place] [phone] Olga Kathleen MD [address] [place] [address] 2 week follow up s/p left SIJ Social History Tobacco Use Types Packs/Day Years [...] on file Legal Sex Female 1:37 AM SIDE SPLITTER Gender Identity Female 10/03/2023 10:05 AM SIDE SPLITTER Sexual Orientation Straight 10/03/2023 10 :05 AM SIDE SPLITTER documented as of this encounter Miscellaneous Notes * Telephone Encounter - Carrie Richardson RN - 09/17/2024 9:01 AM CDT Post-Procedure 2 Week Follow-Up Procedure: left SIJ Date: 09/03/24 What percentage of pain relief have you experienced so far? 2. On a scale of 0-10 how would you rate your pain right now? 3. Length of time you experienced Pain relief after the procedure? 4. Was you activity level more or less after the procedure, able to complete ADL's? 5. How does your pain compare to before your procedure? (Better, Same, Worse) 6. Have you experienced any side effects such as nausea, vomiting, bleeding, or any signs of infection such as a fever, redness or drainage at the injection site? *After 24 hours, if discomfort continues, apply ice or heat over the injection site(s) 20 minutes on 20 minutes off being cautious not to burn your skin. *Steroid injections may take up to a full week to experience the full effects* No answer, left [facility] for patient to call if no relief, has questions or concerns. UPDATE: Finesse returned the call and stated she only got 4 days of relief then it began returning and is now the same as it was prior to the injection. documented in this encounter Plan of Treatment [...] on filedocumented in this encounter Care Teams Microwave Technician Relationship Specialty Start Date End Date Laureano Lantigua MD [address] [place] [address] PCP - General Internal Medicine 07/30/18 Tony Washington MD [address] [facility] [address] [place] [id number] [employer] Driver Obstetrics and Gynecology 11/16/18 Anahy Rosales MD [address] [facility] [address] [place] [address] Referring Physician Psychiatry 11/16/18 Nathalia Rodas, HENRY Physical Therapist Physical Therapy 02/14/23 documented as of this encounter
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
--- OUTSIDE RECORDS SUMMARY | 2024-11-15 03:21 | XMS_ITS | Encounter Summary ---
Author Organization [facility] Healthcare Address [address] [place] [address] Care Team Providers Care Hvac Refrigeration Technician Name Role Phone Laureano Lantigua MD Primary Care Provider + [phone] Tony Washington MD Unavailable [phone] Anahy Rosales MD Unavailable [phone] Nathalia Rodas PT Unavailable Unavailable Reason for Visit * Reason Onset Date Comments Abnormal ECG 10/26/2024 Encounter Details Date Type Department Care Team (Late st Contact Info) Description 10/26/[address] [facility] Medical [facility] [address] [place] [id number] Laureano Lantigua MD [address] [facility] [address] [place] [address] Abnormal ECG Social History Tobacco Use Types Packs/Day Years [...] on file Legal Sex Female 1:37 AM PRO SHOP ATTENDANT Gender Identity Female 10/03/2023 10:05 AM PRO SHOP ATTENDANT Sexual Orientation Straight 10/03/2023 10 :05 AM PRO SHOP ATTENDANT documented as of this encounter Miscellaneous Notes * Telephone Encounter - Bre Tran RN - 11/01/2024 1:03 PM PRO SHOP ATTENDANT Violet, from the office of Teddy Toussaint, called this nurse this morning and requested the following: Please fax to their office, copies of all EKGs done during patient's 10/26/24 ER visit @ [facility]. Need a letter from Dr. JAY that specifically states he is clearing the patient to have surgery on 11/15/24 . Above was discussed with Dr. JAY, he is good with me faxing the EKG's as well as providing Dr. Toussaint's office with the letter requested. Letter was then prepared. EKGs/letter were all successfully faxed to [phone]. SHOP ATTENDANT * Telephone Encounter - Bre Tran RN - 10/29/2024 1:20 PM PRO SHOP ATTENDANT Letter was prepared today, 10/29/24, and reviewed with Dr. JAY. Letter was successfully faxed to the office of Dr. Chente Toussaint, . SHOP ATTENDANT * Telephone Encounter - Bre Tran RN - 10/29/2024 10:02 AM PRO SHOP ATTENDANT Prior messages in this encounter were noted. I will try to complete letter request today, 10/29/24. SHOP ATTENDANT * Telephone Encounter - Lynne Hoffmann LPN - 10/28/2024 1:02 PM PRO SHOP ATTENDANT Pt [phone] did r/c & was informed that TLQ agrees she needs to see cardiology. Pt states that the ER sent referral to Dr Chin so she is waiting for them to call her to schedule. Informed pt that TLQ said he can do a letter stating that he reviewed pre-op EKG and EKG completed at [facility] and that there is no change in the EKGs. Pt voiced understanding & requested the letter be faxed to Dr Toussaint's office. Pt states she has office visit with Dr Toussaint 11/01/24. Task to Q.A. Nurse - can you please complete the requested letter and get it faxed to Dr Weaver. SHOP ATTENDANT * Telephone Encounter - Lynne Hoffmann LPN - 10/28/2024 9:38 AM PRO SHOP ATTENDANT [facility] for pt [phone]. SHOP ATTENDANT * Telephone Encounter - Laureano Lantigua MD - 10/28/2024 9:21 AM PRO SHOP ATTENDANT Bp is looking good I would stay on the same med . Cardiology is fine Can we do a letter stating that the pre op EKG and EKG done at [facility] has no change and then I can sign it ? SHOP ATTENDANT * Telephone Encounter - Lynne Hoffmann LPN - 10/27/2024 9:50 AM PRO SHOP ATTENDANT Pt B/P today is 143/81. Pt will send message thru MyChart tomorrow or Friday with BID B/P readings.Pt agreed to see cardiology as [facility] advised, referral was sent from ER, per TLQ. To TLQ - Pt asking if you will send message to Dr Toussaint stating you have reviewed all recent EKGs and you feel pt is safe for upcoming surgery. Pt also asking our office to fax all recent lab & EKG results from ER visits to Dr Toussaint. Please advise. SHOP ATTENDANT * Telephone Encounter - Lynne Hoffmann LPN - 10/27/2024 9:44 AM PRO SHOP ATTENDANT Pt [phone] did r/c & was informed that TLQ reviewed EKG from [facility] ER 10/26/24. Informed pt that TLQ said the ER EKG and pre-op EKG both look the same and show no changes. Informed pt that TLQ said as long as she is not having chest pains or SOB, he is not concerned about the EKG results. Did inform pt, however, that TLQ does agree with the ER physician that pt should see cardiology to be safe. Pt did voice understanding & states B/P this AM was 143/81. Pt asking if TLQ can send amessage to Dr Toussaint informing him that TLQ has reviewed all EKGs and TLQ feels pt is ok to have the upcoming surgery. Pt also asking if our office can fax all EKG & lab results from ER visits to Dr Toussaint as he is not in [facility]. Informed pt that this nurse will get message to TLQ and we will let her know what he says. Pt voiced understanding and states she will be sending a message thru MyChart tomorrow or Friday with her BID B/P readings for TLQ to review. Pt had no further questions/concerns at this time. SHOP ATTENDANT * Telephone Encounter - Lynne Hoffmann LPN - 10/27/2024 9:39 AM PRO SHOP ATTENDANT TLQ states he he reviewed the complete records from [facility] visit yesterday and it does show that they did send referral for pt to see cardiology. TLQ states he agrees pt does need to see cardiology to be safe. SHOP ATTENDANT * Telephone Encounter - Lynne Hoffmann LPN - 10/26/2024 4:16 PM PRO SHOP ATTENDANT TLQ did review EKG from [facility] ER today. TLQ stated that the EKG from today and the pre-op EKG both look the same, there are no changes. TLQ stated as long as pt is having no chest pains or SOB, he is not concerned about the EKG. TLQ states pt needs to call B/P results to him on , 10/28/24. [facility] for pt [phone]. SHOP ATTENDANT * Telephone Encounter - Tatyana Akbar RN - 10/26/2024 2:07 PM CST Requested labs et EKG from [facility](done yesterday for preop)-they will fax to our faxcom [phone]. Debbie aware to watch for these et take to [facility] when she receives them. SHOP ATTENDANT * Telephone Encounter - Sesar Jacques - 10/26/2024 1:25 PM CST Pt called in because this morning her blood pressure was 184/128 before she took her second dose oflisinopril because she took her first dose yesterday when she picked it up yesterday at 7. Since her blood pressure was so high she went to the ER. While she was at the ER her blood pressure went down and the wait was really long so she left and went to bed. Pt is now at home and was reading the EKG report she received and she is freaking out because of the abnormal EKG and she would like doctor to review and let her know what she should do know. Pt is not concerned with her blood pressure at this time but the EKG is her concern and it is in epic. CBN: [id number] Pharm: [facility] [place] SHOP ATTENDANT documented in this encounter Plan of Treatment [...] on filedocumented in this encounter Care Teams Hvac Refrigeration Technician Relationship Specialty Start Date End Date Laureano Lantigua MD [address] [place] [address] PCP - General Internal Medicine 07/30/18 Tony Washington MD [address] [place] [address] [address] [place] [address] Financial Planning Assistant Obstetrics and Gynecology 11/16/18 Anahy Rosales MD [address] [place] [address] Referring Physician Psychiatry 11/16/18 Nathalia Rodas, PT Physical Therapist Physical Therapy 02/14/23 documented as of this encounter
--- OUTSIDE RECORDS SUMMARY | 2024-11-15 03:21 | XMS_ITS | Encounter Summary ---
Author Organization [facility] Healthcare Address [address] [place] [address] Care Team Providers Care Wire Coiler Name Role Phone Laureano Lantigua MD Primary Care Provider [phone] Tony Washington MD Unavailable [phone] Anahy Rosales MD Unavailable [phone] Nathalia Rodas PT Unavailable Unavailable Reason for Referral * Diagnostic Imaging (Routine) - Closed Specialty Diagnoses / Procedures Referred By Jesse santana Referred To Contact Diagnoses Left hip pain Procedures Injection Hip Left Arthro Only Cecilia Conn MD [address] [facility] [address] [place] [address] Phone: tel: fax: [facility] [address] [place] [address] Referral ID Status Reason Start Date Expiration Date Visits Re quested Visits Authorized [id number] Closed 08/04/2024 09/03/2025 1 1 Reason for Visit * Diagnostic Imaging (Routine) - Closed Specialty Diagnoses / Procedures Referred By Contac t Referred To Contact Diagnoses Left hip pain Procedures Injection Hip Left Arthro Only Cecilia Conn MD [address] [facility] [address] [place] [address] Phone: tel: fax: [facility] [address] [phone] Referral ID Status Reason Start Date Expiration Date Visits Re quested Visits Authorized [id number] Closed 08/04/2024 09/03/2025 1 1 Encounter Details Date Type Department Care Team (Late st Contact Info) Description 08/12/2024 3:00 PM CDT - 08/12/2024 11:59 PM CDT Hospital Encounter [facility] [id number] [phone] Ina Soria RN [place], Resten, MD [address] [place] [address] Buddy Sharpe MD [address] [place] [address] Left hip pain Discharge Disposition: Discharge to [...] on file Legal Sex Female 1:37 AM TUG BOAT ENGINEER Gender Identity Female 10/03/2023 10:05 AM TUG BOAT ENGINEER Sexual Orientation Straight 10/03/2023 10 :05 AM TUG BOAT ENGINEER documented as of this encounter Last Filed Vital Signs Vital Sign Reading Time Taken Comments Blood Pressure 183/99 08/12/2024 3:31 PM CDT Pt states she had a lot going on prior to getting to her appt Pulse 89 08/12/2024 3:31 PM CDT Temperature 36.8 ??C (98.2 ??F) 08/12/2024 3 :31 PM CDT Respiratory Rate - - Oxygen Saturation 98% 08/12/2024 3:3 1 PM CDT Inhaled Oxygen Concentration - - Weight - - Height - - Body Mass Index - - documented in this encounter Medications at Time of Discharge albuterol HFA (PROVENTIL HFA,VENTOLIN HFA,PROAIR HFA) 90 mcg/actuation inhaler 2 puffs qid prn 1 each 01/04/2022 buPROPion SR (WELLBUTRIN SR) 100 mg 12 hr tablet Take 1 tablet (100 mg total) by mouth 2 (two) times a day 03/03/2024 busPIRone (BUSPAR) 15 mg tablet Concerta 36 mg CR tablet estradioL (VIVELLE-DOT) 0.075 mg/24 hrIndications:Vasom otor Symptoms associated with Menopause Place 1 patch on the skin 2 (two) times a week 26 patch 3 02/16/2024 ferrous sulfate 325 mg (65 mg of [...] 30 tablet 01/22/2024 traZODone (DESYREL) 50 mg tabletIndications:tsephanie benavidez Take 1 tablet (50 mg total) by mouth nightly 02/03/2023 progesterone (PROMETRIUM) 200 mg capsuleIndications: Symptomatic menopausal or female climacteric states One pill vaginally every night for 12 days every 3 months 12 capsule 3 02/16/2024 sucralfate (CARAFATE) suspension 1 gram/10 mL Take [...] Procedure Name Priority Date/Time Associated Diagnosis Comments INJECTION HIP LEFT ARTHRO ONLY Schedule Routine, Read Routine (OP Routine) 08/12/2024 4:20 PM CDT Left hip pain documented in this encounter Results * Injection Hip Left Arthro Only (08/12/2024 [...] was obtained. ??Prior to beginning the procedure, Beaufort Protocol was performed to confirm the patient's [...] was obtained. Prior to beginning the procedure, Beaufort Protocol was performed to confirm the patient's [...] region and thigh documented in this encounter Administered Medications Inactive Administered Medications - up to 3 most recent administrations Medication Order MAR Action Action Date Dose Rate Site gadoterate meglumine injection As needed, Starting on Carisa 08/12/24 at 1611, Intra-Op Given 08/12/2024 4:11 PM CDT 0.5 mL ioversoL (OPTIRAY 350) injection As needed, Starting on Carisa 08/12/24 at 1611, Intra-Op Given 08/12/2024 4:11 PM CDT 10 mL sodium chloride 0.9% flush As needed, Starting on Carisa 08/12/24 at 1613, Intra-Op Given 08/12/2024 4:13 PM CDT 10 mL documented in this encounter Care Teams Wire Coiler Relationship Specialty Start Date End Date Laureano Lantigua MD [address] [place] [address] PCP - General Internal Medicine 07/30/18 Tony Washington MD [address] [place] [address] Valving Machine Operator Obstetrics and Gynecology 11/16/18 Anahy Rosales MD [address] [place] [address] Referring Physician Psychiatry 11/16/18 Nathalia Rodas, PT Physical Therapist Physical Therapy 02/14/23 documented as of this encounter
--- OUTSIDE RECORDS SUMMARY | 2024-11-15 03:21 | XMS_ITS | Clinical Summary ---
Author Organization [facility] Address [address] [place] [address] Phone Care Team Providers Care Director Merit System Name Role Phone Laureano Lantigua MD Primary Care Provider [phone] Social History Tobacco Use Types Packs/Day Years Used Date Smoking Tobacco: Never Assessed Comments Unknown Sex and Gender Information Value Date Recorded Sex Assigned at Not on file Legal Sex Female 11:08 PM CDT Gender Identity Not on file Sexual Orientation Not on file Plan of Treatment Health Maintenance Due Date Last Done Comments Hepatitis C Virus (HCV) Screening 1971 TdaP Immunization 1971 Hepatitis B Immunization (1 of 3 - 19+ 3-dose series) 1990 Pap Smear 02/23/1992 Cervical Cancer Screening (CCS) 2001 HPV/Cotest 2001 Colonoscopy 02/23/2016 Colorectal Cancer Screening 02/23/2016 Cologuard 2021 Immunochemical Fecal Occult Blood 2021 Mammogram 2021 Zoster Immunization (1 of 2) 2021 SARS-COV-2 Immunization ( season) 2023 Influenza Immunization (Seas on Ended) 2024 Meningococcal Immunization (ACWY) Aged Out No longer eligible based on patient's age to complete this topic Pneumococcal Immunization Combined Aged Out No longer eligible based on patient's age to complete this topic Rotavirus Immunization Aged Out No lo nger eligible based on patient's age to [place] [address] [place] [address] [facility] Care Teams Director Merit System Relationship Specialty Start Date End Date Laureano Lantigua MD [address] [place] [address] PCP - General Internal Medicine 01/19/16
--- OUTSIDE RECORDS SUMMARY | 2024-11-15 03:21 | XMS_ITS | Encounter Summary ---
Author Organization [facility] Healthcare Address [address] [place] [address] Care Team Providers Care Shoe Lay Out Planner Name Role Phone Laureano Lantigua MD Primary Care Provider [phone] Tony Washington MD Unavailable [phone] Anahy Rosales MD Unavailable [phone] Nathalia Rodas PT Unavailable Unavailable Reason for Visit * Reason Onset Date Comments PMC Intake Assessment 07/30/2024 Encounter Details Date Type Department Care Team (Late st Contact Info) Description 07/30/2024 Telephone [facility] [place] [address] [place] [address], [address] [place] [phone] Moon Hurtado RN [facility] Intake Assessment Social History Tobacco Use Types Packs/Day Years [...] on file Legal Sex Female 1:37 AM 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 Lower back pain radiating down the left extremity down to the left foot Do you have any numbness, tingling, or weakness? Has numbnesss/tingling in the left leg How long have has the pain been going on? 2002 Was there any accident or injury that started the pain? Fell off her horse during a race What would you rate your pain on the number scale 1-10 with 10 being the most severe/ you can give me a range from your best to your worst? 2-9/10 Have you had any physical therapy/ when did you complete it/ how many sessions/was it helpful? Started Pt in February 2023- 2022, Started again in February 2024-May 2024 , it is not helpful Are you doing home exercises? Yes What medications are you currently taking for the pain and what medications have you tried? Meloxicam, was on percocet for years- only took 60 tabs a year Have you had pain management before? Yes What is the name and location of previous pain management? Dr. Page Have you had any injections in the past 12 months? No Have you had any imaging done? EXAMINATION: Lumbar myelogram and post myelogram CT of the lumbar spine with intrathecal contrast HISTORY: Sciatic pain status post fusion TECHNIQUE: The risks and benefits of myelography including but not limited to infection, bleeding, seizure, epidural hematoma, headache, nausea, vomiting, irritation or damage to nerves causing pain or permanent injury, confusion, hallucinations, and/or reaction to the contrast or local medication were discussed with the patient. The patient was given the opportunity to ask questions. The patient acknowledged understanding, gave verbal and written consent, and wished to proceed. A time-out was performed prior to the procedure. Attending physician: Dr. Bernardo Giang MD, PHD was present for the entire procedure. The L2-L3 level was localized with fluoroscopy. The ribs were counted and this level confirmed. The skin overlying this level was sterilely prepped, draped, and infiltrated with 1% lidocaine for local anesthesia. Under intermittent fluoroscopic guidance, a 22 gauge 3.5 inch Quincke spinal needle was inserted into the thecal sac at this level. 10 ml of Omnipaque 180 was instilled. The contrast was pooled into the lumbar region of the patient and fluoroscopic images were obtained. The patient was transferred to CT, and computed tomography of the lumbar spine was performed with intrathecal contrast according to myelographic protocol. The patient was then transferred to the nursing area for further observation and 1 hour of bedrest. COMPARISON: MRI 02/24/2024 FINDINGS: Fluoroscopy: The spine is in the normal anatomic alignment. The nerve root sheaths fill normally. No myelographic block of intrathecal contrast is present. There are postsurgical changes of L5-S1 posterior spinal fusion with degenerative discogenic changes noted within the lower lumbar spine, better evaluated on the CT portion of this exam. Postmyelogram CT: There is trace retrolisthesis of L3 on L4. The alignment of the lumbar spine is otherwise normal. Vertebral bodies are of normal height without compression fractures. The conus medullaris terminates at the level of L1 and is normal. There are postsurgical changes of L5-S1 posterior and interbody spinal fusion without evidence of complication. There is partial osseous fusion noted. Additionally, there is the appearance of bilateral L4 pars interarticularis defects which is likely postsurgical. There is mild scattered intervertebral disc space narrowing throughout the remainder of the lumbar spine. The partially visualized intra-abdominal viscera are unremarkable. L1-L2: There is a diffuse disc bulge. There is no facet arthropathy. There is no neuroforaminal stenosis. There is mild spinal canal stenosis. L2-L3: There is a diffuse disc bulge. There is no facet arthropathy. There is no neuroforaminal stenosis. There is mild spinal canal stenosis. L3-L4: There is a diffuse disc bulge. There is no facet arthropathy. There is no neuroforaminal stenosis. There is mild spinal canal stenosis. L4-L5: There is a diffuse disc bulge. There is moderate bilateral facet arthropathy. There is no neuroforaminal stenosis. There is moderate spinal canal stenosis. Thickening of the ligamentum flavum is noted at this level. L5-S1: Posterior spinal fusion, as above. There is moderate bilateral facet arthropathy. There is no neuroforaminal stenosis. There is no spinal canal stenosis. IMPRESSION: Post surgical changes of L5-S1 posterior spinal fusion, without radiographic complication. 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 Otherwise, no high-grade spinal canal or neuroforaminal narrowing within the lumbar spine. Are you on a prescription blood thinner/ who prescribes? Denies You have been referred for evaluation for SCS NPP sent electronically documented in this encounter Plan of Treatment Not on file documented as of this encounter Visit Diagnoses Not on filedocumented in this encounter Care Teams Shoe Lay Out Planner Relationship Specialty Start Date End Date Laureano Lantigua MD [address] [place] [address] PCP - General Internal Medicine 07/30/18 Tony Washington MD [address] [place] [address] [address] [place] [address] Creping Machine Operator Obstetrics and Gynecology 11/16/18 Anahy Rosales MD [address] [place] [address] Referring Physician Psychiatry 11/16/18 Nathalia Rodas, PT Physical Therapist Physical Therapy 02/14/23 documented as of this encounter
--- OUTSIDE RECORDS SUMMARY | 2024-11-15 03:21 | XMS_ITS | Referral Summary ---
Author Organization [facility] s Address [address] [place] [address] Care Team Providers Care Operations And Maintenance Supervisor Name Role Phone Laureano Lantigua MD Primary Care Provider Tony Washington MD Unavailable [phone] Anahy Rosales MD Unavailable [phone] Nathalia Rodas PT Unavailable Unavailable Encounters Date Type Department Care Team Description 11/01/2024 2:00 PM IT MANAGER Office Visit [facility] [address] [place] [address] Ct Zhang, PhD Generalized anxiety disorder (Primary Dx); Other chronic pain 10/26/2024 8:04 PM IT MANAGER - 10/26/2024 9:33 PM IT MANAGER Emergency [facility] Emergency Department [address] [place] [address] Elevated blood pressure reading with diagnosis of hypertension (Primary Dx); ECG abnormality Discharge Disposition: Discharge to home or self care 10/26/2024 Telephone [facility] [place] [facility] [address] [facility] [address] [place] [address] Laureano Lantigua MD Abnormal ECG 10/26/2024 8:41 AM IT MANAGER - 10/26/2024 8:56 AM IT MANAGER Emergency [facility] Emergency Department [address] [place] [address] Discharge Disposition: Left without being seen 10/25/2024 Telephone [facility] [address] [place] [phone] Tatyana Akbar RN 10/25/2024 2:45 PM IT MANAGER Office Visit [facility] [address] [place] [phone] Laureano Lantigua MD Pre-op exam (Primary Dx); Hypertension, essential 10/08/2024 12:00 PM IT MANAGER Office Visit [facility] [address] [place] [address] [phone] Ct Zhang, PhD Other chronic pain (Primary Dx); Adjustment disorder with mixed anxiety and depressed mood; Alcohol use disorder 10/06/2024 Orders Only [facility] [address] [place] [phone] Scanning, Provider 10/01/2024 2:00 PM IT MANAGER Office Visit [facility] [address] [place] [address] [phone] Ct Zhang, PhD Other chronic pain (Primary Dx); Lumbar back pain; Adjustment disorder with mixed anxiety and depressed mood 09/17/2024 Telephone [facility] at [address] [address], [address] [place] [address] Olga Kathleen MD 2 week follow up s/p left SIJ 09/03/2024 7:47 AM CDT - 09/03/2024 11:59 PM CDT Hospital Encounter Pain Management Center at [address], [address] [place] [address] Olga Kathleen MD Sacroiliitis (HCC) (Primary Dx); Lumbar back pain Discharge Disposition: Discharge to home or self care from Last 3 Months Allergies Active Allergy Reactions Criticality Noted Date Comments Erythromycin Rash Medium Morphine Nausea & Vomiting Low Nylon Rash Medium 09/19/2023 Stitches-severe redness: had to be removed early Hydrocodone-Acetaminophe n Vomiting Low 04/20/2018 Medications ferrous sulfate 325 mg (65 mg of elemental iron) tabletIndications :Iron Deficiency Anemia Take 1 tablet (325 mg total) by mouth daily with breakfast Active albuterol HFA (PROVENTIL HFA,VENTOLIN HFA,PROAIR HFA) 90 mcg/actuation inhaler 2 puffs qid prn 1 each 01/04/20 22 Active Additional Information Patient taking differently: 2 puff inhalation Every 6 hours PRN, wheezing, shortness of breath, 2 puffs qid prn,Indications: Acute Asthma Attack, Informant: Self, Reported on 09/19/2023 magnesium phosphate, bulk, powderIndications :supplement Take 1 tablet by mouth every morning Active traZODone (DESYREL) 50 mg tabletIndications :sleep Take 1 tablet (50 mg total) by mouth nightly 02/04/20 23 Active methylphenidate HCl (RITALIN) 5 mg tabletIndications :Attention-Defici t Hyperactivity Disorder Take 1 tablet (5 mg total) by mouth daily with lunch 08/28/20 23 Active diazePAM (VALIUM) 5 mg tablet Take 1 tablet (5 mg total) by mouth every 6 (six) hours as needed for anxiety for up to 7 days 28 tablet 11/19/19 24 Active oxyCODONE-acetami nophen (PERCOCET) 5-325 mg per tabletIndications :Pain Take 1 tablet by mouth every 4 (four) hours as needed for pain 30 tablet 01/22/20 24 Active Additional Information Patient not taking.Reported on 10/25/2024 estradioL (VIVELLE-DOT) 0.075 mg/24 hrIndications:Vas omotor Symptoms associated with Menopause Place 1 patch on the skin 2 (two) times a week 26 patch 3 02/16/20 24 025 Active busPIRone (BUSPAR) 15 mg tablet Active Concerta 36 mg CR tablet Active buPROPion SR (WELLBUTRIN SR) 100 mg 12 hr tablet Take 1 tablet (100 mg total) by mouth 2 (two) times a day 03/03/20 24 Active meloxicam (MOBIC) 15 mg tablet TAKE 1 TABLET (15 MG TOTAL) BY MOUTH DAILY. 90 tablet 08/02/20 24 Active desipramine (NORPRAMIN) 25 mg tablet Take 1 tablet (25 mg total) by mouth daily 30 tablet 3 09/03/20 24 025 Active tiZANidine (ZANAFLEX) 4 mg tablet Take 1 tablet (4 mg total) by mouth every 8 (eight) hours as needed for muscle spasms 90 tablet 3 09/03/20 24 Active sucralfate (CARAFATE) suspension 1 gram/10 mL Take 5 mL (0.5 g total) by mouth 4 (four) times a day 1800 mL 10/13/20 24 025 Active lisinopril-hydroC HLOROthiazide (ZESTORETIC) 20-25 mg per tabletIndications :hypertension Take 1 tablet by mouth daily 90 tablet 4 10/25/20 24 025 Active progesterone (PROMETRIUM) 200 mg capsuleIndication s:Symptomatic menopausal or female climacteric states One pill vaginally every night for 12 days every 3 months 12 capsule 3 02/16/20 24 024 Discontin ued(Thera py completed ) Active Problems Problem Noted Date Diagnosed Date ECG abnormality 10/26/2024 Pre-op exam 10/25/2024 Assessment & Plan (10/25/2024 7:28 PM IT MANAGER): Pt is medically optimized for hip surgery Forms were filled out today Will get the labs and EKG readings from [place] Elevated blood pressure read ing with diagnosis of hypertension 10/25/2024 Assessment & Plan (10/25/2024 7:27 PM IT MANAGER): Goal bp is 130/80 or under Low na diet Start lisinopril / hctz 20 /25 mg po qday Check bp and call me back by Labral tear of hip, degenerative 10/07/2023 Tear of left acetabular labrum 09/15/2023 Arthritis 08/18/2023 DJD (degenerative joint disease) 08/18/2023 Elevated cholesterol 08/18/2023 Overview (08/18/2023): not on Rx Fatty liver disease, nonalcoholic 08/18/2023 History of sleeve gastrectomy 08/15/2021 Itching 11/22/2020 Overview (08/18/2023): Last Assessment & Plan: Patient is reporting [...] if needed if symptoms worsen or persist. Overweight (BMI 25.0-29.9) 11/02/2019 Recurrent major depressive d isorder, in full remission ([facility]/HCC) 10/27/2017 Attention deficit hyperactivity disorder (ADHD) 10/27/2017 Tachycardia 12/28/2014 Morbid obesity 08/18/2014 Asthma 06/28/2014 Overview (02/20/2017): Asthma Osteoarthritis of cervical spine 10/08/2011 Lumbago 10/08/2011 Lumbar back pain 01/27/2011 Resolved Problems Problem Noted Date Diagnosed Date Resolved Date Excessive or frequent menstruation 03/12/2023 04/07/2023 Screen for colon cancer 01/03/2021 03/0 06/2022 Overview (01/03/2021): Added automatically from request for surgery [id number] Routine physical examination 11/16/2018 11/22/2019 Immunizations Name Administration Dates Next Due Hep A, Adult 10/28/2018,02/04/2018 Hep B Vaccine 10/28/2018 Influenza, Quadrivalent, Split, Intramuscular Influenza, Quadrivalent, Spl it, Preservative Free, Intramuscular 10/20/2023,08/11/2021 Tdap 10/27/2017 Social History Tobacco Use Types Packs/Day Years [...] on file Legal Sex Female 1:37 AM IT MANAGER Gender Identity Female 10/03/2023 10:05 AM IT MANAGER Sexual Orientation Straight 10/03/2023 10 :05 AM IT MANAGER Last Filed Vital Signs Vital Sign Reading Time Taken Comments Blood Pressure 134/85 10/26/2024 9:32 PM IT MANAGER Pulse 80 10/26/2024 9:32 PM IT MANAGER Temperature 36.6 ??C (97.8 ??F) 10/26/2024 7:32 PM CS T Respiratory Rate 18 10/26/2024 9:32 PM IT MANAGER Oxygen Saturation 98% 10/26/2024 9:32 PM IT MANAGER Inhaled Oxygen Concentration - - Weight 94.3 kg (208 lb) 10/26/2024 8:44 AM IT MANAGER Height 182.9 cm (6') 10/26/2024 8:44 AM IT MANAGER Body Mass Index 28.21 10/26/2024 8:44 AM IT MANAGER Plan of Treatment Not on file Goals Goal Patient Goal Type Associated Problems [...] lifestyle strategies and compensatory methods as needed Medical Devices Implanted Type Area Wire Stretcher Device Identifier Shelf Expiration Date Model / Serial / Lot Lspine Fusion Spine Lumbar Procedures Procedure Name Priority Date/Time Associated Diagnosis Comments TROPONIN T HIGH-SENSITIVITY 4-HR Timed 10/26/2024 7:54 PM IT MANAGER EGFR STAT 10/26/2024 3:34 PM IT MANAGER DIFFERENTIAL AUTO STAT 10/26/2024 3:3 4 PM IT MANAGER TROPONIN T HIGH-SENSITIVITY SERIES (BASELINE, 2HR, 4HR, 6HR) STAT 10/26/2024 3:34 PM IT MANAGER CBC WITH AUTO DIFFERENTIAL STAT 10/26/2024 3:34 PM IT MANAGER COMPREHENSIVE METABOLIC PANEL STAT 10/26/2024 3:34 PM IT MANAGER ECG 12-LEAD STAT 10/26/2024 2:31 PM IT MANAGER ECG 12-LEAD STAT 10/26/2024 8:50 AM IT MANAGER SCAN - RADIOLOGY/IMAGING 10/06/2024 PAIN MGMT IMAGING SI JOINT LEFT Schedule Routine, Read Routine (OP Routine) 09/03/2024 10:00 AM CDT Sacroiliitis (HCC) PAP, REFLEX HPV Routine 02/16/2024 3:25 PM CDT Well woman exam COLONOSCOPY 03/27/2021 11:21 AM CDT SCREENING MAMMOGRAM BILATERAL W RADHA Schedule Routine, Read Routine (OP Routine) 01/01/2021 8:09 AM IT MANAGER Encounter for screening mammogram for malignant neoplasm of breast from Last 3 Months or Most Recently Relevant to Health Maintenance Results * Troponin T high-sensitivity 4-hour (10/26/2024 7:54 PM IT MANAGER) Trop T hs <6 <=14 ng/L Comment: Interpretive Data For further hscTnT resources including the diagnostic algorithm and an aid in interpretation, copy and paste this link: https://nrl.[email or web address]/show/hsTrop Current Interpretive Data last revised 2020. Trop T hs delta 0 ng/L [facility] ([facility]) Trop T hs interp Insignificant [facility] ([facility]) Blood 10/26/2024 7:54 PM IT MANAGER 10/26/2024 8:00 PM IT MANAGER Mac Dexter MD LAB BLOOD ORDERABLES Final R esult Performing Organization Address City/[facility] Co de Phone Number DARIUS GARCIA (CARLISLE) 1 [facility] Department [place] [address] * Troponin T high-sensitivity series (baseline, 2hr, 4hr, 6hr) (10/26/2024 3:34 PM IT MANAGER) Trop T hs <6 <=14 ng/L Comment: Interpretive Data For further hscTnT resources including the diagnostic algorithm and an aid in interpretation, copy and paste this link: https://nrl.[email or web address]/show/hsTrop Current Interpretive Data last revised 2020. Blood 10/26/2024 3:34 PM IT MANAGER 10/26/2024 3:37 PM IT MANAGER Mac Dexter MD LAB BLOOD ORDERABLES Final R esult DARIUS GARCIA (ABEL) 1 [facility] Department [place] [address] * eGFR (10/26/2024 3:34 PM IT MANAGER) [facility] eGFR >90 >=60 mL/min/1. 73 m2 Comment: Interpretive Data Reference Interval Normal ?>/= 90 mL/min/1.73m2 Mildly decreased* ? 60 - 89 mL/min/1.73m2 Mildly to moderately decreased ?45 - 59 mL/min/1.73m2 Moderately to severely decreased ??30 - 44 mL/min/1.73m2 Severely decreased ?15 - 29 mL/min/1.73m2 Kidney Failure ?< 15 ??mL/min/1.73m2 *Relative to young adult level Estimated glomerular filtration rate is determined by the 2020 CKD-EPI equation recommended by the National Kidney Foundation (A Unifying Approach to GFR Estimation: Recommendations of the NKF-ASK Task Force on Reassessing the Inclusion of Race in Diagnosing Kidney Disease, JASN 2020). The CKD-EPI equation should not be used for patients with unstable renal function and has not been validated in children and those over 70. Current interpretive data was last reviewed 2021. Blood 10/26/2024 3:34 PM IT MANAGER 10/26/2024 3:37 PM IT MANAGER us Mac Dexter MD LAB BLOOD ORDERABLES Final R esult DARIUS GARCIA (CARLISLE) 1 [facility] Department [place] [address] * Differential, auto (10/26/2024 3:34 PM IT MANAGER) [facility] Neutrophil abs 4.7 1.5 - 6.5 K/cumm Imm gran abs 0.0 0.0 - 0.1 K/cumm [facility] ([facility]) Lymphocyte abs 3.3 0.8 - 3.3 K/cumm [facility] ([facility]) Monocyte abs 0.6 0.2 - 0.8 K/cumm [facility] ([facility]) Eosinophil abs 0.2 0.0 - 0.5 K/cumm [facility] ([facility]) Basophil abs 0.1 0.0 - 0.1 K/cumm [facility] ([facility]) Neutrophil pct 53.5 % [facility] ([facility]) Comment: Interpretive Data Percent cell count reference ranges are not reported, since discordance with absolute values may lead to misinterpretation of CBC data. Current Interpretive Data was last revised on 2018. Imm gran pct 0.3 % [facility] ([facility]) Comment: Interpretive Data Percent cell count reference ranges are not reported, since discordance with absolute values may lead to misinterpretation of CBC data. Current Interpretive Data was last revised on 2018. Lymphocyte pct 36.9 % [facility] ([facility]) Comment: Interpretive Data Percent cell count reference ranges are not reported, since discordance with absolute values may lead to misinterpretation of CBC data. Current Interpretive Data was last revised on 2018. Monocyte pct 7.0 % [facility] ([facility]) Comment: Interpretive Data Percent cell count reference ranges are not reported, since discordance with absolute values may lead to misinterpretation of CBC data. Current Interpretive Data was last revised on 2018. Eosinophil pct 1.7 % [facility] ([facility]) Comment: Interpretive Data Percent cell count reference ranges are not reported, since discordance with absolute values may lead to misinterpretation of CBC data. Current Interpretive Data was last revised on 2018. Basophil pct 0.6 % [facility] ([facility]) Comment: Interpretive Data Percent cell count reference ranges are not reported, since discordance with absolute values may lead to misinterpretation of CBC data. Current Interpretive Data was last revised on 2018. Blood 10/26/2024 3:34 PM IT MANAGER 10/26/2024 3:37 PM IT MANAGER Mac Dexter MD LAB BLOOD ORDERABLES Final R esult [facility] ([facility]) 1 [facility] [place] [address] * CBC with auto differential (10/26/2024 3:34 PM IT MANAGER) WBC 8.8 3.8 - 9.9 K/cumm Hgb 15.2 11.9 - 15.5 g/dL [facility] ([facility]) Hct 44.7 35.6 - 45.5 % [facility] ([facility]) Plt 270 150 - 400 K/cumm [facility] ([facility]) MPV 9.8 9.1 - 12.3 fL [facility] ([facility]) RBC 4.76 3.90 - 5.20 M/cumm [facility] ([facility]) MCV 93.9 81.3 - 96.4 fL [facility] ([facility]) MCH 31.9 27.1 - 33.3 pg [facility] ([facility]) MCHC 34.0 32.3 - 35.7 g/dL [facility] ([facility]) RDW CV 11.9 11.1 - 14.9 % [facility] ([facility]) RDW SD 41.8 35.7 - 48.1 fL [facility] ([facility]) NRBC abs 0.00 0.00 - 0.01 K/cumm [facility] ([facility]) Blood 10/26/2024 3:34 PM IT MANAGER 10/26/2024 3:37 PM IT MANAGER Mac Dexter MD LAB BLOOD ORDERABLES Final R esult DARIUS GARCIA (ABEL) 1 [facility] [place] [address] * Comprehensive metabolic panel (10/26/2024 3:34 PM IT MANAGER) Sodium 137 135 - 145 mmol/L Potassium, pl 4.2 3.3 - 4.9 mmol/L [facility] ([facility]) Chloride 101 97 - 110 mmol/L [facility]) CO2 25 22 - 32 mmol/L [facility] ([facility]) Anion gap 12 2 - 15 mmol/L [facility] ([facility]) BUN 11 6 - 25 mg/dL [facility] ([facility]) Creatinine 0.78 0.60 - 1.10 mg/dL [facility] ([facility]) Glucose 104 70 - 199 mg/dL [facility] ([facility]) Comment: Interpretive Data Fasting glucose >/= 126 mg/dl is diagnostic for diabetes. ?? Fasting is defined as no caloric intake for at least 8 hours. Fasting glucose between 100 mg/dl to 125 mg/dl is diagnostic of prediabetes. In a patient with classic symptoms of hyperglycemia or hyperglycemic crisis, a random glucose >/= 200 mg/dl is diagnostic for diabetes. In the absence of unequivocal hyperglycemia, results should be confirmed by repeat testing. The classification and Diagnosis of Diabetes Diabetes Care 2021; 46: S19-S40. Current interpretive data was last revised 2022. Calcium 9.4 8.5 - 10.3 mg/dL [facility] ([facility]) Bilirubin, total 0.5 0.1 - 1.2 mg/dL [facility] ([facility]) Protein, pl 7.8 6.5 - 8.5 g/dL [facility] ([facility]) Albumin 4.5 3.5 - 5.0 g/dL [facility] ([facility]) Alk phos 111 40 - 130 Units/L [facility] ([facility]) ALT 15 7 - 45 Units/L [facility] ([facility]) AST 20 10 - 45 Units/L [facility] ([facility]) Blood 10/26/2024 3:34 PM IT MANAGER 10/26/2024 3:37 PM IT MANAGER us Mac Dexter MD LAB BLOOD ORDERABLES Final R esult [facility] ([facility]) 1 [facility] Department [place] [address] * ECG 12 lead (10/26/2024 2:31 PM IT MANAGER) 10/26/2024 2:31 PM IT MANAGER Narrative [facility] - 10/26/2024 5:21 PM IT MANAGER Vent Rate: 93 bpm RR Interval: 645 msec ME Interval: 156 msec QRS Duration: 89 msec QT Interval: 350 msec QTC Interval: 400 msec P-R-T Otto: 65 - 110 - 48 degrees IMPRESSION: SINUS RHYTHM POSSIBLE RIGHT VENTRICULAR HYPERTROPHY ??[SOME/ALL OF: PROMINENT R IN V1, LATE TRANSITION, RAD, YARIEL, SSS] SEPTAL MYOCARDIAL INFARCTION , PROBABLY OLD [40+ ms Q WAVE IN V1/V2] ABNORMAL ECG NO CHANGE FROM PREVIOUS TRACING NOTED Electronically Signed By: Armnai Douglas MD Mac Dexter MD ECG ORDERABLES Final Result Performing Organization Address [facility] Phone Number [facility] [employer] [facility] * ECG 12 lead (10/26/2024 8:50 AM IT MANAGER) 10/26/2024 8:50 AM IT MANAGER Narrative [facility] - 10/26/2024 12:00 PM IT MANAGER Vent Rate: 88 bpm RR Interval: 678 msec ME Interval: 141 msec QRS Duration: 86 msec QT Interval: 320 msec QTC Interval: 366 msec P-R-T Otto: -5 - 92 - 48 degrees IMPRESSION: SINUS RHYTHM BORDERLINE RIGHT AXIS DEVIATION ??[QRS AXIS > 90] SEPTAL MYOCARDIAL INFARCTION , OF INDETERMINATE AGE [40+ ms Q WAVE IN V1/V2] ABNORMAL ECG Electronically Signed By: Armani Douglas MD Bia Cast MD ECG ORDERABLES Final Res ult Performing Organization Address [facility] Co de Phone Number [facility] [employer] [facility] * SCAN - RADIOLOGY/IMAGING (10/06/2024) Anatomical Region Laterality Modality Other Provider Scanning Final Result * Imaging SI Joint Injection Left ([id number]) (09/03/2024 10:00 AM CDT) Narrative [email or web address] - 09/03/2024 10:01 AM CDT The images from this study are not interpreted by Radiology. ??Please refer to the physician's procedure / OR operative note. Olga Kathleen MD IMG PAIN MGMT PROCEDURES Final Result Performing Organization Address [facility] Co de Phone Number [email or web address] * Pap, reflex HPV (02/16/2024 3:25 PM CDT) CLINICAL INFORMATION: [employer] Comment:None given LMP [facility] Comment:ABLATION Previous Pap [facility] Hwang Comment:None given Prev. Bx [facility] Comment:None given SOURCE: [employer]S max Hwang Comment:Cervix, Endocervix Pap, specimen adequacy [facility] Comment: Satisfactory for evaluation. Endocervical/transformation zone component present. HPV interp [facility] Comment: Cytology Results: Negative for intraepithelial lesion or malignancy. COMMENTS [facility] Comment: This Pap test has been evaluated with computer assisted technology. Lace Winder [facility] H[facility] Comment: BKA, CT(ASCP) CT screening location: [address] [address] [address] [place] [address] Comment [employer] Comment: EXPLANATORY NOTE: The Pap is a screening test for cervical cancer. It is not a diagnostic test and is subject to false negative and false positive results. It is most reliable when a satisfactory sample, regularly obtained, is submitted with relevant clinical findings and history, and when the Pap result is evaluated along with historic and current clinical information. Thin prep 02/16/2024 3:25 PM CDT 02/17/2024 3:06 AM CDT Tony Washington MD LAB CYTOLOGY ORDERABLES Fi nal Result Performing Organization Address City/[facility]/ZIP Co de Phone Number [facility] [address] [address] [place] [address] * COLONOSCOPY (03/27/2021 11:21 AM CDT) Anatomical Region Laterality Modality Other Narrative Procedure Note Manuel Tanner MD - 03/27/2021 11:21 AM CDT [facility] Patient Name: Finesse Ramirez Procedure Date: 03/27/2021 11:21 AM Date of : 1970 Admit Type: Outpatient Age: 51 Gender: Female Attending MD: Manuel Tanner M.D. Room: [facility] ENDOSCOPY ROOM 1 Note Status: Finalized Patient Profile: This is a 51 year old female. No family history of colon cancer. She has issues with chronicconstipation Procedure: Colonoscopy Indications: Screening for colorectal malignant neoplasm, Thisis the patient's first colonoscopy Referring MD: Laureano Lantigua M.D. Providers: Manuel Tanner M.D. Impression: - The entire examined colon is normal. - Mild diverticulosis in the distal sigmoidcolon. - Internal hemorrhoids. - No specimens collected. Recommendation: - Repeat colonoscopy in 10 years for screening purposes. - Continue present medications. - Maintain high-fiber diet. Medicines: Monitored Anesthesia Care Complications: No immediate complications. Estimated Blood Loss: Estimated blood loss: none. Procedure: Pre-Anesthesia Assessment: - Prior to the procedure, a History and Physicalwas performed, and patient medications and allergieswere reviewed. The patient's tolerance of previous anesthesia was also reviewed. The risks andbenefits of the procedure and the sedation options and risks were discussed with the patient. All questions were answered, and informed consent was obtained. Prior Anticoagulants: The patient has taken no previous anticoagulant or antiplatelet agents. ASA Grade Assessment: II - A patient with mild systemicdisease. After reviewing the risks and benefits, the patient was deemed in satisfactory condition to undergo the procedure. The benefits, risks and alternatives of theprocedure and sedation were discussed and informed consentwas obtained. All questions were answered. Please referto the signed informed consent document in the medical record. The bowel preparation used was Miralax and bisacodyl tablets via split dose instruction. The scope was passed under direct vision. The Pediatric Colonoscope [id number]-[id number] was introducedthrough the anus and advanced to the the cecum, identifiedby appendiceal orifice and ileocecal valve. Thequality of the bowel preparation was excellent. Bowel prepwas administered using a split dose. Findings: The perianal and digital rectal examinations were normal. The cecum appeared normal. The colon (entire examined portion) appeared normal over. No polypsand no mass lesions noted A few small-mouthed diverticula were found in the distal sigmoidcolon. Internal hemorrhoids were found during retroflexion. The hemorrhoids were small. Electronically signed by Manuel Tanner M.D. Manuel Tanner M.D. 03/27/2021 1:08:33 PM Number of Addenda: 0 Note Initiated On: 03/27/2021 11:21 AM Procedure Code(s): --- Professional --- 86405, Colonoscopy, flexible; diagnostic, including collection of specimen(s) by brushing or washing, when performed (separateprocedure) Diagnosis Code(s): --- Professional --- Z12.11, Encounter for screening for malignant neoplasm of colon K64.8, Other hemorrhoids K57.30, Diverticulosis of large intestine without perforation orabscess without bleeding CPT copyright 2019 [employer]. All rights reserved. The codes documented in this report are preliminary and upon bench mechanic reviewmay be revised to meet current compliance requirements. Recognized by the [employer] for promoting quality in endoscopy us Manuel Tanner MD ENDOSCOPY PROCEDURES Final Result * SCREENING MAMMOGRAM BILATERAL W RADHA (01/01/2021 8:09 AM IT MANAGER) Anatomical Region Laterality Modality Breast Bilateral Mammography 01/01/2021 8:48 AM IT MANAGER Impressions 01/01/2021 9:24 AM IT MANAGER There is no mammographic evidence of malignancy. A 1 year screening mammogram is recommended. BI-RADS: 1 - Negative. The patient will be entered into a reminder system with a target due date of 1 year for her next mammogram. Electronically signed by: MD Waleska Turpin 01/01/2021 9:24 AM IT MANAGER EXAMINATION: SCREENING MAMMOGRAM BILATERAL W RADHA ORDERING HEALTHCARE PROVIDER: TONY [place] HISTORY: Routine screening mammography. COMPARISON: ??02/08/2019, 11/11/2017 and 11/15/2015 TECHNIQUE: CC and MLO views of the bilateral breasts were obtained with digital technique using breast tomosynthesis with C view. Computer aided detection was utilized. FINDINGS: DENSITY: There are scattered fibroglandular elements in the bilateral breasts. BREASTS: There are no suspicious masses, suspicious calcifications, or other suspicious findings in either breast. There has been no suspicious interval change. Tony [place] MD IMG MAMMO PROCEDURES Final Result from Last 3 Months or Most Recently Relevant to [place] [address] [employer] [facility] [place] [facility] Advance Directives For more information, please contact: [phone] * Full Code (Latest Code Status on File) Date Activated Date Inactivated Comments 03/12/2023 10:30 AM 03/12/2023 3:15 PM * Full Code Date Activated Date Inactivated Comments 03/27/2021 11:43 AM 03/27/2021 5:47 PM Care Teams Operations And Maintenance Supervisor Relationship Specialty Start Date End Date Laureano Lantigua MD [address] [place] [address] PCP - General Internal Medicine 07/30/18 Tony [place] MD [address] [place] [address] [address] [place] [address] Track Laying Supervisor Obstetrics and Gynecology 11/16/18 Anahy Rosales MD [address] [place] [address] [address] [place] [address] Referring Physician Psychiatry 11/16/18 Nathalia Rodas, PT Physical Therapist Physical Therapy 02/14/23
--- OUTSIDE RECORDS SUMMARY | 2024-11-15 03:21 | XMS_ITS | Encounter Summary ---
Author Organization [facility] Healthcare Address [address] [place] [address] Care Team Providers Care Airplane Tester Name Role Phone Laureano Lantigua MD Primary Care Provider [phone] Tony [place] MD Unavailable [phone] Anahy Rosales MD Unavailable [phone] Nathalia Rodas PT Unavailable Unavailable Reason for Referral * Diagnostic Imaging (Routine) - Closed Specialty Diagnoses / Procedures Referred By Contac t Referred To Contact Diagnoses Lumbar back pain Procedures XR Scoliosis 6 or More Views Charley Carter MD [address] [place] [address] Phone: tel: fax: [facility] [phone] [place] [address] Referral ID Status Reason Start Date Expiration Date Visits Re quested Visits Authorized [id number] Closed 07/20/2024 08/19/2025 1 1 Reason for Visit * Diagnostic Imaging (Routine) - Closed Specialty Diagnoses / Procedures Referred By Contac t Referred To Contact Diagnoses Lumbar back pain Procedures XR Scoliosis 6 or More Views Charley Carter MD [address] [place] [address] Phone: tel: fax: [facility] [address] [id number] Referral ID Status Reason Start Date Expiration Date Visits Re quested Visits Authorized [id number] Closed 07/20/2024 08/19/2025 1 1 Encounter Details Date Type Department Care Team (Latest Contact Info) Description 07/29/2024 8:00 AM CDT - 07/29/2024 11:59 PM CDT Hospital Encounter [id number] [address] [facility] [facility] [address] [place] [address] Lumbar back pain Discharge Disposition: Discharge to [...] on file Legal Sex Female 1:37 AM 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 Gender Identity Female 10/03/2023 10:05 AM 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 ENGINEER Sexual Orientation Straight 10/03/2023 10 :05 AM 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 ENGINEER documented as of this encounter Medications at [...] Take 1 tablet by mouth every morning methylphenidate HCl (RITALIN) 5 mg tabletIndications:A ttention-Deficit Hyperactivity Disorder Take 1 tablet (5 mg total) by mouth daily with lunch 08/28/2023 oxyCODONE-acetamino phen (PERCOCET) 5-325 mg per tabletIndications:P ain Take 1 tablet by mouth every 4 (four) hours as needed for pain 30 tablet 01/22/2024 traZODone (DESYREL) 50 mg tabletIndications:s leep Take 1 tablet (50 mg total) by mouth nightly 02/03/2023 meloxicam (MOBIC) 15 mg tablet Take 1 tablet (15 mg total) by mouth daily 90 tablet 05/06/2024 4 progesterone (PROMETRIUM) 200 mg capsuleIndications: Symptomatic menopausal [...] Name Priority Date/Time Associated Diagnosis Comments XR SCOLIOSIS 6 OR MORE VIEWS Schedule Routine, Read Routine (OP Routine) 07/29/2024 8:34 AM CDT Lumbar back pain documented in this encounter Results * XR Scoliosis 6 or More Views (07/29/2024 8:34 AM CDT) Anatomical Region Laterality Modality Spine N/A Computed Radiogr aphy 07/29/2024 8:43 AM CDT Impressions 07/29/2024 8:43 AM CDT 1. ??Unchanged combined anterior and posterior instrumented fusion at L5-S1 Electronically signed by: Tracie Ham MD Narrative 07/29/2024 8:43 AM CDT EXAMINATION: XR SCOLIOSIS ??6 OR MORE VIEWS HISTORY: ??Neck pain. FINDINGS: Comparison is made to 03/10/2024. No significant abnormal curvature of the spine. ??No significant truncal imbalance. ??Mild right superior pelvic obliquity. Unchanged combined anterior and posterior instrumented fusion at L5-S1. ??Hardware is intact. ??Vertebral body heights preserved. Sagittal alignment is normal in position. ??No abnormal motion with bending. ??Mild multilevel lumbar degenerative disease at the unfused segments. Procedure Note Tracie Ham MD - 07/29/2024 EXAMINATION: XR SCOLIOSIS 6 OR MORE VIEWS HISTORY: Neck pain. FINDINGS: Comparison is made to 03/10/2024. No significant abnormal curvature of the spine. No significant truncal imbalance. Mild right superior pelvic obliquity. Unchanged combined anterior and posterior instrumented fusion at L5-S1. Hardware is intact. Vertebral body heights preserved. Sagittal alignment is normal in position. No abnormal motion with bending. Mild multilevel lumbar degenerative disease at the unfused segments. IMPRESSION: 1. Unchanged combined anterior and posterior instrumented fusion at L5-S1 Electronically signed by: Tracie Ham MD Charley Carter MD IMG XR PROCEDURES Final Resul t documented in this encounter Visit Diagnoses Diagnosis Lumbar back pain Lumbago documented in this encounter Care Teams Airplane Tester Relationship Specialty Start Date End Date Laureano Lantigua MD [address] [place] [id number] PCP - General Internal Medicine 07/30/18 Tony [place] MD [address] [place] [address] [address] [place] [address] Physical Therapy Director Obstetrics and Gynecology 11/16/18 Anahy Rosales MD [address] [place] [address] [place] [address] Referring Physician Psychiatry 11/16/18 Nathalia Rodas, PT Physical Therapist Physical Therapy 02/14/23 documented as of this encounter
--- OUTSIDE RECORDS SUMMARY | 2024-11-15 03:21 | XMS_ITS | Encounter Summary ---
Author Organization [facility] Healthcare Address [address] [place] [address] Care Team Providers Care Shipwright Supervisor Name Role Phone Laureano Lantigua MD Primary Care Provider [phone] Tony [place] MD Unavailable [phone] Anahy Rosales MD Unavailable [phone] Nathalia Rodas PT Unavailable Unavailable Reason for Visit * Reason Comments Hypertension Encounter Details Date Type Department Care Team (Late st Contact Info) Description 10/26/2024 8:41 AM MIND READER - 10/26/2024 8:56 AM [facility] Emergency Department [address] [place] [address] Discharge Disposition: Left without being seen Social History Tobacco Use Types Packs/Day Years [...] on file Legal Sex Female 1:37 AM MIND READER Gender Identity Female 10/03/2023 10:05 AM MIND READER Sexual Orientation Straight 10/03/2023 10 :05 AM MIND READER documented as of this encounter Last Filed Vital Signs Vital Sign Reading Time Taken Comments Blood Pressure 156/94 10/26/2024 8:44 AM MIND READER Pulse 96 10/26/2024 8:44 AM MIND READER Temperature 36.9 ??C (98.5 ??F) 10/26/2024 8:44 AM CS T Respiratory Rate 17 10/26/2024 8:44 AM MIND READER Oxygen Saturation 100% 10/26/2024 8:44 AM MIND READER Inhaled Oxygen Concentration - - Weight 94.3 kg (208 lb) 10/26/2024 8:44 AM MIND READER Height 182.9 cm (6') 10/26/2024 8:44 AM MIND READER Body Mass Index 28.21 10/26/2024 8:44 AM MIND READER documented in this encounter Medications at Time of Discharge albuterol HFA (PROVENTIL HFA,VENTOLIN HFA,PROAIR HFA) 90 mcg/actuation inhaler 2 puffs qid prn 1 each 11 01/04/2022 buPROPion SR (WELLBUTRIN SR) 100 mg 12 hr tablet Take 1 tablet (100 mg total) by mouth 2 (two) times a day 03/03/2024 busPIRone (BUSPAR) 15 mg tablet Concerta 36 mg CR tablet desipramine (NORPRAMIN) 25 mg tablet Take 1 tablet (25 mg total) by mouth daily 30 tablet 3 09/03/2024 5 estradioL (VIVELLE-DOT) 0.075 mg/24 hrIndications:Vasom otor Symptoms associated with Menopause Place 1 patch on the skin 2 (two) times a week 26 patch 3 02/16/2024 5 ferrous sulfate 325 mg (65 mg of elemental iron) tabletIndications:I mehreen Deficiency Anemia Take 1 tablet (325 mg total) by mouth daily with breakfast lisinopril-hydroCHL OROthiazide (ZESTORETIC) 20-25 mg per tabletIndications:h ypertension Take 1 tablet by mouth daily 90 tablet 4 10/25/2024 5 magnesium phosphate, bulk, powderIndications:s upplement Take 1 [...] as needed for pain 30 tablet 01/22/2024 sucralfate (CARAFATE) suspension 1 gram/10 mL Take 5 mL (0.5 g total) by mouth 4 (four) times a day 1800 mL 10/13/2024 5 tiZANidine (ZANAFLEX) 4 mg tablet Take 1 tablet (4 mg total) by mouth every 8 (eight) hours as needed for muscle spasms 90 tablet 3 09/03/2024 traZODone (DESYREL) 50 mg tabletIndications:s leep Take 1 tablet (50 mg total) by mouth nightly 02/03/2023 documented as of this encounter Discharge Disposition Disposition Code Departure Means Destination Left without being seen documented in this encounter ED Notes * Celine Rosado RN - 10/26/2024 8:43 AM CST Pt ambulatory to triage for HTN. Pt states she went to have her Perop labs done yesterday and they told her, her BP was highg. She made an appointment with her PCP and they increased her lisinopril. Pt states she has taken 2 pills this morning and she has been taking her BP and it has not helped. READER documented in this encounter Plan of Treatment [...] as needed documented as of this encounter Procedures Procedure Name Priority Date/Time Associated Diagnosis Comments ECG 12-LEAD STAT 10/26/2024 8:50 AM MIND READER documented in this encounter Results * ECG 12 lead (10/26/2024 8:50 AM MIND READER) 10/26/2024 8:50 AM MIND READER Narrative [facility] - 10/26/2024 12:00 PM MIND READER Vent Rate: 88 bpm RR Interval: 678 msec [place] Interval: 141 msec QRS Duration: 86 msec QT Interval: 320 msec QTC Interval: 366 msec P-R-T [place]: -5 - 92 - 48 degrees IMPRESSION: SINUS RHYTHM BORDERLINE RIGHT AXIS DEVIATION ??[QRS AXIS > 90] SEPTAL MYOCARDIAL INFARCTION , OF INDETERMINATE AGE [40+ ms Q WAVE IN V1/V2] ABNORMAL ECG Electronically Signed By: Armani Douglas MD us Bia Cast MD ECG ORDERABLES Final Res ult [facility] documented in this encounter Visit Diagnoses Not on filedocumented in this encounter Care Teams Shipwright Supervisor Relationship Specialty Start Date End Date Laureano Lantigua MD [address] [place] [address] PCP - General Internal Medicine 07/30/18 Tony [place] MD [address] [facility] [address] [place] [address] Firebrick Layer Obstetrics and Gynecology 11/16/18 Anahy Rosales MD [address] [facility] [address] [place] [address] Referring Physician Psychiatry 11/16/18 Nathalia Rodas, PT Physical Therapist Physical Therapy 02/14/23 documented as of this encounter
--- OUTSIDE RECORDS SUMMARY | 2024-11-15 03:21 | XMS_ITS | Encounter Summary ---
Author Organization [facility] Healthcare Address [address] [place] [address] Care Team Providers Care Group Burner Machine Name Role Phone Laureano Lantigua MD Primary Care Provider [phone] Tony Washington MD Unavailable [phone] Anahy Rosales MD Unavailable [phone] Nathalia Rodas PT Unavailable Unavailable Reason for Referral * Consultation (Routine) - Pending Review Specialty Diagnoses / Procedures Referred By Contac t Referred To Contact Cardiology Diagnoses Elevated blood pressure reading with diagnosis of hypertension ECG abnormality Sergio Elliott PA [address] [facility] [address] [place] [facility] [place] [address] Phone: tel: fax: Emma Chin MD 2 [facility] [address] [address] Phone: tel: fax: Referral ID Status Reason Start Date Expiration Date Visits Requested Visits Authorized [id number] Pending Review Specialty Services Required 4 11/25/2025 1 1 Question Answer Please select the performing region: External Order [171] To provider: EMMA CHIN [[id number]] # of visits: 1 NOMY PROFESSOR Reason for Visit * Reason Comments Hypertension Encounter Details Date Type Department Care Team ([place] st Contact Info) Description 10/26/2024 8:04 PM AGRONOMY PROFESSOR - 10/26/2024 9:33 PM AGRONOMY PROFESSOR Emergency [facility] Emergency Department [address] [place] [address] Elevated blood pressure reading with diagnosis of [...] on file Legal Sex Female 1:37 AM AGRONOMY PROFESSOR Gender Identity Female 10/03/2023 10:05 AM AGRONOMY PROFESSOR Sexual Orientation Straight 10/03/2023 10 :05 AM AGRONOMY PROFESSOR documented as of this encounter Last Filed Vital Signs Vital Sign Reading Time Taken Comments Blood Pressure 134/85 10/26/2024 9:32 PM AGRONOMY PROFESSOR Pulse 80 10/26/2024 9:32 PM AGRONOMY PROFESSOR Temperature 36.6 ??C (97.8 ??F) 10/26/2024 7:32 PM CS T Respiratory Rate 18 10/26/2024 9:32 PM AGRONOMY PROFESSOR Oxygen Saturation 98% 10/26/2024 9:32 PM AGRONOMY PROFESSOR Inhaled Oxygen Concentration - - Weight - - Height - - Body Mass Index - - documented in this encounter Discharge Instructions * Attachments The following attachments cannot be sent through Care Everywhere. * High Blood Pressure, Established, Out of Control (Malay) * Cardiac Stress Test (Discharge Care) (Malay) documented in this encounter Medications at Time [...] 3 09/03/2024 traZODone (DESYREL) 50 mg tabletIndications:s pramod Take 1 tablet (50 mg total) by mouth nightly 02/03/2023 documented as of this encounter Discharge Disposition Disposition Code Departure Means Destination Comment s Discharge to home or self care documented in this encounter ED Notes * Sergio Elliott PA - 10/26/2024 9:30 PM CST HPI Chief Complaint Patient presents with Hypertension 54-year-old female with history of osteoarthritis, depression, ADHD, anxiety, and hypertension presents with complaint of elevated blood pressure and concerns about an abnormal ECG today. The patientstates that her blood pressure has been running in the 180/110 range. Denies chest pain or shortness of breath. She was seen earlier today and when she saw her ECG from today that showed an abnormality she became concerned and called her mother who is an RN. Her mother recommended that she return to the emergency department for further evaluation. Patient states she is slated to have a hip arthroplasty on 11/08/2024 and she does not want anything to come in the way of getting that done. States she has been taking her home blood pressure medicine as directed. In the past states she had a cardiac catheterization as well as a stress test that showed no abnormality. States she does have a family history of CAD. Note in medical record from patient's PCP Laureano Lantigua MD: MISTY did review EKG from [facility] ER today. TLQ stated that the EKG from today and the pre-op EKG both look the same, there are no changes. TLQ stated as long as pt is having no chest pains or SOB, he is not concerned about the EKG. TLQ states pt needs to call B/P results to him on , 10/28/24 History provided by: Patient and spouse coil binder used: No Patient History: Patient Active Problem List Diagnosis Date Noted ECG abnormality 10/26/2024 Pre-op exam 10/25/2024 Elevated blood pressure reading with diagnosis of hypertension 10/25/2024 Labral tear of hip, degenerative 10/07/2023 Tear of left acetabular labrum 09/15/2023 Arthritis 08/18/2023 DJD (degenerative joint disease) 08/18/2023 Elevated cholesterol 08/18/2023 Fatty liver disease, nonalcoholic 08/18/2023 History of sleeve gastrectomy 08/15/2021 Itching 11/22/2020 Overweight (BMI 25.0-29.9) 11/02/2019 Recurrent major depressive disorder, in full remission ([facility]) ([facility]) 10/27/2017 Attention deficit hyperactivity disorder (ADHD) 10/27/2017 Tachycardia 12/28/2014 Morbid obesity (HCC) 08/18/2014 Asthma 06/28/2014 Osteoarthritis of cervical spine 10/08/2011 Lumbago 10/08/2011 Lumbar back pain 01/27/2011 Past Medical History: Diagnosis Date ADHD Anxiety Asthma Asthma; Comments: [facility] 06/27/2014 - 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 Cancer ([facility]) ([facility]) [facility] Chest pain Depression Disc disorder of lumbar region Female infertility Infertility, female Fibrocystic breast GERD (gastroesophageal reflux disease) Hammer toe Hammer toe; Comments: [facility] 06/27/2014 - HX OTHER MEDICAL Sinusitis, ADD, diverticulosis, obesity, OA, asthm HX OTHER MEDICAL Depression, with Anxiety; PCOS HX OTHER MEDICAL Missed Ab HX OTHER MEDICAL ; Outcome: [id number] week 7lb(s) 7 oz Male Hypercholesterolemia High cholesterol; Comments: [facility] 06/27/2014 - Hypertension Hypertension Lumbar stenosis Motion sickness Osteoarthritis Retinal detachment Detachment of retina; Comments: [facility] 06/27/2014 - Past Surgical History: Procedure Laterality Date ANKLE SURGERY Left 2008 Ankle surgery ANTERIOR CRUCIATE LIGAMENT REPAIR Right 2008 Right ACL repair BARIATRIC SURGERY CARDIAC CATHETERIZATION 2013 CARPAL TUNNEL RELEASE Bilateral 1992 Carpal tunnel release CATARACT EXTRACTION 2005 CHOLECYSTECTOMY 03/2018 COLONOSCOPY 03/27/2021 1st COMBINED HYSTEROSCOPY DIAGNOSTIC / D&C 03/12/2023 DILATION AND CURETTAGE OF UTERUS 2010 Missed Ab: Suction D&C; ELBOW SURGERY Left 11/07/2020 x2 ENDOMETRIAL ABLATION 03/12/2023 MOHS SURGERY 07/2021 Basil Cell OTHER SURGICAL HISTORY retina re-attachment, multiple surgeries; unknown date ROTATOR CUFF REPAIR Left 2008 ROTATOR CUFF REPAIR Left 2017 Rotator cuff repair SLEEVE GASTROPLASTY 2014 Laparoscopic Gastric Sleeve SPINAL FUSION 2010 Spinal fusion L5-S1 Family History Problem Relation Age of Onset Cancer Mother Hypertension Mother Hypertension; Heart disease Father Heart disease; Heart attack Father Myocardial Infarction; Hyperlipidemia Father High cholesterol; Hypertension Maternal Grandmother Hypertension; Heart attack Maternal Grandfather Myocardial Infarction; Cause of : Myocardial Infarction Prostate cancer Maternal Grandfather Cancer, prostate; Heart attack Cousin Myocardial Infarction; Heart disease Other Heart disease; Diabetes Other Diabetes mellitus; Anesthesia problems Neg Hx Social History Tobacco Use Smoking status: Never Smokeless tobacco: Never Vaping Use Vaping status: Never Used Substance and Sexual Activity Alcohol use: Yes Drug use: No Sexual activity: Yes Partners: Male control/protection: None Social History Social History Narrative Not on file Review of Systems Review of Systems All other systems reviewed negative. All available allergies, past medical history, past surgical history, social history, and medications reviewed from the medical record, nursing notes, and with patient Physical Exam ED Triage Vitals Temp Pulse Resp BP SpO2 10/26/24 1431 10/26/24 1431 10/26/24 1431 10/26/24 1431 10/26/24 1431 37.2 ??C (99 ??F) 98 16 143/88 100 % Temp src Heart Rate Source Patient Position BP Location FiO2 (%) 10/26/24 1652 10/26/24 1652 10/26/24 1652 10/26/24 1652 -- Temporal Monitor Sitting Left arm Height Height Method Weight Weight Method -- -- -- -- Physical Exam Vitals and nursing note reviewed. Constitutional: General: She is not in acute distress. Appearance: Normal appearance. She is not ill-appearing, toxic-appearing or diaphoretic. HENT: Head: Normocephalic. Right Ear: External ear normal. Left Ear: External ear normal. Nose: Nose normal. Mouth/Throat: Mouth: Mucous membranes are moist. Pharynx: Oropharynx is clear. Neck: Vascular: No carotid bruit. Comments: Trachea midline. Negative JVD. Negative for palpable thyromegaly. Cardiovascular: Rate and Rhythm: Normal rate and regular rhythm. Pulses: Normal pulses. Heart sounds: Normal heart sounds. Pulmonary: Effort: Pulmonary effort is normal. Breath sounds: Normal breath sounds. Musculoskeletal: General: Normal range of motion. Cervical back: Normal range of motion and neck supple. Skin: General: Skin is warm and dry. Neurological: General: No focal deficit present. Mental Status: She is alert and oriented to person, place, and time. Psychiatric: Thought Content: Thought content normal. Judgment: Judgment normal. [facility] Medical Decision Making 34-year-old female presents with concerns of abnormal blood pressure readings on her home blood pressure monitoring device and also having an ECG that was read as abnormal earlier today. She denies headache or neurological deficit. States she has been taking her home blood pressure medication as directed. Denies chest pain or shortness of breath. Emergency department plan: Lab/tests ordered from triage included CBC, CMP, troponin series, and ECG. Discharge plan: Follow-up with PCP and preferred director bioinformatics. Keep a daily blood pressure log and present it to PCP and preferred director bioinformatics. Patient states that she prefers the director bioinformatics, Dr. Chin. Placed a referral in [facility] for cardiology. Placed outpatient cardiac stress test order in [facility]. Returns to the emergency department for worsening signs/symptoms. Amount and/or Complexity of Data Reviewed Labs: Decision-making details documented in ED Course. Radiology: ordered. ED Course as of 10/26/242137 Time: 10/26 2049 Comment: ECG: SINUS RHYTHM POSSIBLE RIGHT VENTRICULAR HYPERTROPHY [SOME/ALL OF: PROMINENT R IN V1, LATE TRANSITION, RAD, YARIEL, SSS] SEPTAL MYOCARDIAL INFARCTION , PROBABLY OLD [40+ ms Q WAVE IN V1/V2] ABNORMAL ECG NO CHANGE FROM PREVIOUS TRACING NOTED Electronically Signed By: Armani Douglas MD By: Sergio Elliott PA Time: 10/26 2049 Value: WBC: 8.8 Comment: Negative for WBC abnormality By: Sergio Elliott PA Time: 10/26 2049 Value: Hgb: 15.2 Comment: (Reviewed) By: Sergio Elliott PA Time: 10/26 2049 Value: Hct: 44.7 Comment: Negative anemia By: Sergio Elliott PA Time: 10/26 2049 Value: Alk phos: 111 Comment: (Reviewed) By: Sergio Elliott PA Time: 10/26 2049 Value: ALT: 15 Comment: (Reviewed) By: Sergio Elliott PA Time: 10/26 2049 Value: AST: 20 Comment: Negative for LFT abnormality By: Sergio Elliott PA Time: 10/26 2049 Value: BUN: 11 Comment: (Reviewed) By: Sergio Elliott PA Time: 10/26 2049 Value: Creatinine: 0.78 Comment: Renal function intact By: Sergio Elliott PA Time: 10/26 2049 Value: Trop T hs: <6 Comment: (Reviewed) By: Sergio Elliott PA Time: 10/26 2049 Value: Trop T hs interp: Insignificant Comment: Negative for abnormality and troponins By: Sergio Elliott PA Time: 10/26 2117 Comment: Reviewed lab / test results with patient. Thoroughly reviewed outpatient treatment plan and follow-up plan with patient. All questions from patient addressed. By: Sergio Elliott PA Final diagnoses: Elevated blood pressure reading with diagnosis of hypertension ECG abnormality Sergio Elliott PA 10/26/242137 NOMY PROFESSOR * Celine Rosado RN - 10/26/2024 2:29 PM CST Pt ambulatory to triage. Pt checked into ED earlier today for HTN and left EKG was done at time of first check in. Pt states getting results of first EKG and it says myocardial infarction. So Pt returned to ED. Pt states no chest pain or SOB at time of triage. NOMY PROFESSOR documented in this encounter Plan of Treatment Scheduled Referrals Name Type Priority Associated Diagnoses Orde r Schedule Ambulatory referral to Cardiology Outpatient Referral Routine Elevated blood pressure reading with diagnosis of hypertension ECG abnormality Expected: 11/02/2024 (Approximate), Expires: 10/26/2025 documented as of this encounter Goals Goal Patient Goal Type Associated Problems Recent Progress Patient-Stated? Author CCM Chronic Pain Care Plan Chronic Care Management Yes Carrie Richardson RN Note: Problem: Chronic Pain Goals: 1. [...] T HIGH-SENSITIVITY 4-HR Timed 10/26/2024 7:54 PM AGRONOMY PROFESSOR TROPONIN T HIGH-SENSITIVITY SERIES (BASELINE, 2HR, 4HR, 6HR) STAT 10/26/2024 3:34 PM AGRONOMY PROFESSOR EGFR STAT 10/26/2024 3:34 PM AGRONOMY PROFESSOR DIFFERENTIAL AUTO STAT 10/26/2024 3:3 4 PM AGRONOMY PROFESSOR CBC WITH AUTO DIFFERENTIAL STAT 10/26/2024 3:34 PM AGRONOMY PROFESSOR COMPREHENSIVE METABOLIC PANEL STAT 10/26/2024 3:34 PM AGRONOMY PROFESSOR ECG 12-LEAD STAT 10/26/2024 2:31 PM AGRONOMY PROFESSOR documented in this encounter Results * Troponin T high-sensitivity 4-hour (10/26/2024 7:54 PM AGRONOMY PROFESSOR) Trop T hs <6 <=14 ng/L Comment: Interpretive Data For further hscTnT resources including the diagnostic algorithm and an aid in interpretation, copy and paste this link: https://nrl.testcatalog.org/show/hsTrop Current Interpretive Data last revised 2020. Trop T hs delta 0 ng/L [facility] ([place]) Trop T hs interp Insignificant [facility] ([place]) Blood 10/26/2024 7:54 PM AGRONOMY PROFESSOR 10/26/2024 8:00 PM AGRONOMY PROFESSOR us Mac Dexter MD LAB BLOOD ORDERABLES Final R esult [facility] ([place]) [address] [facility] Department [place] [address] * eGFR (10/26/2024 3:34 PM AGRONOMY PROFESSOR) eGFR >90 >=60 mL/min/1. 73 m2 Comment: [...] of Race in Diagnosing Kidney Disease, JASN 202). The CKD-EPI equation should not be used for patients with unstable renal function and has not been validated in children and those over 70. Current interpretive data was last reviewed 2021. Blood 10/26/2024 3:34 PM AGRONOMY PROFESSOR 10/26/2024 3:37 PM AGRONOMY PROFESSOR Mac Dexter MD LAB BLOOD ORDERABLES Final R esult [facility] ([place]) [address] [facility] Department [place] [address] * Differential, auto (10/26/2024 3:34 PM AGRONOMY PROFESSOR) Neutrophil abs 4.7 1.5 - 6.5 K/cumm Imm gran abs 0.0 0.0 - 0.1 K/cumm [facility] ([place]) Lymphocyte abs 3.3 0.8 - 3.3 K/cumm [facility] ([place]) Monocyte abs 0.6 0.2 - 0.8 K/cumm [facility] ([place]) Eosinophil abs 0.2 0.0 - 0.5 K/cumm [...] Eosinophil pct 1.7 % [facility] ([place]) Comment: Interpretive Data Percent cell count reference ranges are not reported, since discordance with absolute values may lead to misinterpretation of CBC data. Current Interpretive Data was last revised on 2018. Basophil pct 0.6 % [facility] ([place]) Comment: Interpretive Data Percent cell count reference ranges are not reported, since discordance with absolute values may lead to misinterpretation of CBC data. Current Interpretive Data was last revised on 2018. Blood 10/26/2024 3:34 PM AGRONOMY PROFESSOR 10/26/2024 3:37 PM AGRONOMY PROFESSOR Mac Dexter MD LAB BLOOD ORDERABLES Final R esult Performing Organization Address City/[facility]/ZIP Co de Phone Number [facility] ([place]) [address] [facility] [employer] [place] [address] * Troponin T high-sensitivity series (baseline, 2hr, 4hr, 6hr) (10/26/2024 3:34 PM AGRONOMY PROFESSOR) Trop T hs <6 <=14 ng/L Comment: Interpretive Data For further hscTnT resources including the diagnostic algorithm and an aid in interpretation, copy and paste this link: https://nrl.testcatalog.org/show/hsTrop Current Interpretive Data last revised 2020. Blood 10/26/2024 3:34 PM AGRONOMY PROFESSOR 10/26/2024 3:37 PM AGRONOMY PROFESSOR Mac Dexter MD LAB BLOOD ORDERABLES Final R esult Performing Organization Address City/[facility]/ZIP Co de Phone Number [facility] ([place]) [address] [facility] [employer] [facility] [employer] [place] [address] * CBC with auto differential (10/26/2024 3:34 PM AGRONOMY PROFESSOR) WBC 8.8 3.8 - 9.9 K/cumm Hgb [...] [facility] ([place]) Blood 10/26/2024 3:34 PM AGRONOMY PROFESSOR 10/26/2024 3:37 PM AGRONOMY PROFESSOR us Mac Dexter MD LAB BLOOD ORDERABLES Final R esult [facility] ([place]) [address] [facility] Department of Laboratories [place], [place] [id number] * Comprehensive metabolic panel (10/26/2024 3:34 PM AGRONOMY PROFESSOR) Sodium 137 135 - 145 mmol/L Potassium, [...] [facility] ([place]) Blood 10/26/2024 3:34 PM AGRONOMY PROFESSOR 10/26/2024 3:37 PM AGRONOMY PROFESSOR us Mac Dexter MD LAB BLOOD ORDERABLES Final R esult [facility] ([place]) [address] [facility] Department [place] [address] * ECG 12 lead (10/26/2024 2:31 PM AGRONOMY PROFESSOR) 10/26/2024 2:31 PM AGRONOMY PROFESSOR Narrative [facility] - 10/26/2024 5:21 PM AGRONOMY PROFESSOR Vent Rate: 93 bpm RR Interval: 645 msec IA Interval: 156 msec QRS Duration: 89 msec QT Interval: 350 msec QTC Interval: 400 msec P-R-T [place]: 65 - 110 - 48 degrees IMPRESSION: SINUS RHYTHM POSSIBLE RIGHT VENTRICULAR HYPERTROPHY ??[SOME/ALL OF: PROMINENT R IN V1, LATE TRANSITION, RAD, YARIEL, SSS] SEPTAL MYOCARDIAL INFARCTION , PROBABLY OLD [40+ ms Q WAVE IN V1/V2] ABNORMAL ECG NO CHANGE FROM PREVIOUS TRACING NOTED Electronically Signed By: Armani Douglas MD Mac Dexter MD ECG ORDERABLES Final Result [facility] documented in this encounter Visit Diagnoses Diagnosis Elevated blood pressure reading with diagnosis of hypertension- Primary Elevated blood pressure reading with diagnosis of hypertension ECG abnormality Nonspecific abnormal electrocardiogram (ECG) (EKG) ECG abnormality Nonspecific abnormal electrocardiogram (ECG) (EKG) documented in this encounter Care Teams Group Burner Machine Relationship Specialty Start Date End Date Laureano Lantigua MD [address] [place] [address] PCP - General Internal Medicine 07/30/18 Tony Washington MD [address] [place] [address] [address] [place] [address] Log Sorting Supervisor Obstetrics and Gynecology 11/16/18 Anahy Rosales MD [address] [place] [address] [address] [place] [address] Referring Physician Psychiatry 11/16/18 Nathalia Rodas, PT Physical Therapist Physical Therapy 02/14/23 documented as of this encounter
--- OUTSIDE RECORDS SUMMARY | 2024-11-15 03:21 | XMS_ITS | Encounter Summary ---
Author Organization [facility] Healthcare Address [address] [place] [address] Care Team Providers Care Master Control Supervisor Name Role Phone Laureano Lantigua MD Primary Care Provider [phone] Tony Washington MD Unavailable [phone] Anahy Rosales MD Unavailable [phone] Nathalia Rodas PT Unavailable Unavailable Encounter Details Date Type Department Care Team (Late st Contact Info) Description 10/06/2024 Orders Only [facility] [place] [facility] [address] [place] [phone] Scanning, Provider Social History Tobacco Use Types Packs/Day Years [...] on file Legal Sex Female 1:37 AM SHIFT MANAGER Gender Identity Female 10/03/2023 10:05 AM SHIFT MANAGER Sexual Orientation Straight 10/03/2023 10 :05 AM SHIFT MANAGER documented as of this encounter Plan of [...] Procedure Name Priority Date/Time Associated Diagnosis Comments SCAN - RADIOLOGY/IMAGING 10/06/2024 documented in this encounter Results * SCAN - RADIOLOGY/IMAGING (10/06/2024) Anatomical Region Laterality Modality Other us Provider Scanning Final Result documented in this encounter Visit Diagnoses Not on filedocumented in this encounter Care Teams Master Control Supervisor Relationship Specialty Start Date End Date Laureano Lantigua MD [address] [place] [address] PCP - General Internal Medicine 07/30/18 Tony Washington MD [address] [place] [address] Strap Making Machine Operator Obstetrics and Gynecology 11/16/18 Anahy Rosales MD [address] [address] Referring Physician Psychiatry 11/16/18 Nathalia Rodas, PT Physical Therapist Physical Therapy 02/14/23 documented as of this encounter
--- OUTSIDE RECORDS SUMMARY | 2024-11-15 03:21 | XMS_ITS | Encounter Summary ---
Author Organization [facility] Healthcare Address [address] [place] [address] Care Team Providers Care Purification Supervisor Name Role Phone Laureano Lantigua MD Primary Care Provider [phone] Tony Washington MD Unavailable [phone] Anahy Rosales MD Unavailable [phone] Nathalia Rodas PT Unavailable Unavailable Reason for Referral * Diagnostic Imaging (Routine) - Closed Specialty Diagnoses / Procedures Referred By Contac t Referred To Contact Diagnoses Sacroiliitis (HCC) Procedures Imaging SI Joint Injection Left (84388) Olga Kathleen MD [address] [facility] [address] [place] [address] Phone: tel: fax: [facility] [id number] [place] [phone] Referral ID Status Reason Start Date Expiration Date Visits Re quested Visits Authorized [id number] Closed 09/03/2024 10/03/2025 1 1 * Diagnostic Imaging (Routine) - Closed Specialty Diagnoses / Procedures Referred By Contac t Referred To Contact Diagnoses Sacroiliitis (HCC) Procedures Imaging SI Joint Injection Left (62907) Ogla Kathleen MD [address] [place] [address] Phone: tel: fax: [place] [address] [place] [address] Referral ID Status Reason Start Date Expiration Date Visits Re quested Visits Authorized [id number] Closed 09/03/2024 10/03/2025 1 1 * Consultation (Routine) - Pending Review Specialty Diagnoses / Procedures Referred By Contac t Referred To Contact Pain Management Diagnoses Lumbar back pain Charley Carter MD [address] [place] [address] Phone: tel: fax: [place] [address] [place] [address] Referral ID Status Reason Start Date Expiration Date Visits Requested Visits Authorized [id number] Pending Review Specialty Services Required 07/29/2024 08/28/2025 1 1 Question Answer Please select the performing region: [facility] [157] # of visits: 1 Comments Consult for Spinal Cord Stimulator Reason for Visit * Reason Comments Initial Consult Discuss SCS * Diagnostic Imaging (Routine) - Closed Specialty Diagnoses / Procedures Referred By Contac t Referred To Contact Diagnoses Sacroiliitis (HCC) Procedures Imaging SI Joint Injection Left (83420) Olga Kathleen MD [address] [place] [address] Phone: tel: fax: [place] [address] [place] [address] Referral ID Status Reason Start Date Expiration Date Visits Re quested Visits Authorized [id number] Closed 09/03/2024 10/03/2025 1 1 Encounter Details Date Type Department Care Team (Latest Contact Info) Description 09/03/2024 7:47 AM CDT - 09/03/2024 11:59 PM CDT Hospital Encounter [facility] [address] [facility] [address] [place] [address] Olga Kathleen MD [address] [place] [address] Sacroiliitis (HCC) (Primary Dx); Lumbar back pain [...] on file Legal Sex Female 1:37 AM [employer] Gender Identity Female 10/03/2023 10:05 AM [employer] Sexual Orientation Straight 10/03/2023 10 :05 AM [employer] documented as of this encounter Last Filed Vital Signs Vital Sign Reading Time Taken Comments Blood Pressure 180/88 09/03/2024 10:17 AM CDT Pulse 79 09/03/2024 10:05 AM CDT Temperature 36.2 ??C (97.2 ??F) 09/03/2024 7:50 AM CD T Respiratory Rate 16 09/03/2024 10:05 AM CDT Oxygen Saturation 98% 09/03/2024 10:05 AM CDT Inhaled Oxygen Concentration - - Weight - - Height - - Body Mass Index - - documented in this encounter Discharge Instructions * Discharge Instructions* Kaya Robb RN - 09/03/2024 10:14 AM CDT Patient had steady gait. Site clean/dry/intact. Patient verbalized understanding to discharge instructions. * Patient Instructions* Kaya Robb RN - 09/03/2024 8:00 AM CDT [facility] DISCHARGE INSTRUCTIONS [phone] (Friday-Friday 7:30 am - 4:00 pm) PLAN: A nurse will call you in 2 weeks to check your pain status. Start Tizanidine, 4 mg, every 8 hours as needed. Start Desipramine, 25 mg daily PROCEDURE TODAY: Left Sacroiliac Joint Steroid Injection PROCEDURE AT NEXT VISIT: DIAGNOSTIC TEST(S): Pain Psychology FOLLOW UP: WHEN YOU GET HOME: Resume your normal medication. Resume your normal diet. For soreness, you may place an ice bag once an hour at the injection site for 15-20 minutes. After 24 hours, you may use heat at the injection site. DO NOT lie on, or fall asleep with the heating pad. You may shower daily. To prevent infection, do not take a bath, swim, or sit in a Jacuzzi or hot tub for the next 2 days. Drink plenty of fluids-to decrease your chance of a headache, which may occur occasionally after injection. IT MAY TAKE THE STEROID MEDICATION 3-7 DAYS TO START WORKING AND CAN TAKE UP TO TWO WEEKS FOR FULL BENEFIT OF MEDICATION. You may experience side effects of the steroid medication. Some of these side effects include: Dizziness or light headedness upon standing. Steroid Flushing - flushing of the face and chest that can last several days and be accompanied by a feeling of warmth or low grade increase in temperature. Increased pain or soreness or achiness at the injection site. Slight weakness or numbness in arms or legs. Anxiety, trouble sleeping Increase in blood sugars Serious complications are rare, but could include: Severe Allergic Reaction Bleeding Infection indicated but not limited to fever over 101, warmth/redness/drainage to injection site Severe Headache when sitting or standing that is resolved when lying down Loss of balance/difficulty walking Loss of bowel or bladder control Increasing muscle weakness or prolonged numbness in the arms or legs. If you experience ANY of the above serious symptoms, Call 911 and go to the Emergency Department. Notify [facility] AFTER receiving care for the symptoms. Please call [facility] if you have questions or concerns @ [phone] The Pain Management Center is committed to providing your medication refills in a timely manner. When submitting a refill request, please note the following guidelines: Federal guidelines recommend patients with chronic pain, for whom opioid medications are prescribed, be evaluated at least once every two-three months.The Pain Management Center adheres to these guidelines and patients should plan to be seen at least every two-three months (or more frequently, as deemed appropriate by the prescribing provider). To allow timely scheduling of evaluations, please contact the office to schedule your appointment 6-8 weeks in advance. For all opioid/narcotic prescription refills, please contact the Pain Management Center at least 7 days prior to the date of need. Call [phone] choose option #5 and leave the following information: Name, date of , and phone number Name(s) of the medication(s) needing refill Name and number for the pharmacy where the refill(s) should be sent All non-opioid/non-narcotic refill requests should be submitted directly to the pharmacy. The pharmacy will then contact the [facility] with the necessary information. For any questions about your visit or your procedure, please call the Pain Management Center [phone] (Friday-Friday 7:30 am - 4:00 pm). Please leave a message on the Nurse Line for ALL Non Urgent matters (option #5). If you have an urgent matter during normal business hours please choose option #4 for current patients. If you need urgent attention after 4 pm, on the weekends, or a holiday that can not wait until the office opens: Please call 911 or go to the nearest Emergency Room. * Attachments The following attachments cannot be sent through Care Everywhere. * Tizanidine (By mouth) (Chinese) * Desipramine (By mouth) (Chinese) documented in this encounter Medications at Time [...] mg (65 mg of elemental iron) tabletIndications:I meheren Deficiency Anemia Take 1 tablet (325 mg [...] as needed for pain 30 tablet 01/22/2024 tiZANidine (ZANAFLEX) 4 mg tablet Take 1 [...] 05/07/2024 4 documented as of this encounter Ordered Prescriptions Prescription Sig Dispense Quantity Refills Last Filled Start Date End Date tiZANidine (ZANAFLEX) 4 mg tablet Take 1 tablet (4 mg total) by mouth every 8 (eight) hours as needed for muscle spasms 90 tablet 3 09/03/2024 desipramine (NORPRAMIN) 25 mg tablet Take 1 tablet (25 mg total) by mouth daily 30 tablet 3 09/03/2024 09/03/2025 documented in this encounter Discharge Disposition Disposition Code Departure Means Destination Discharge to home or self care documented in this encounter Progress Notes * Olga Kathleen MD - 09/03/2024 8:00 AM CDT Patient Name: Fineses Ramirez : 1970 Today's Date: 09/04/2024 PCP: Laureano Lantigua MD Referring: Charley Carter MD Chief Complaint Patient presents with Initial Consult Discuss SCS HPI Finesse Ramirez is a 54 y.o. year old female referred by Charley Carter MD for consultation regarding evaluation and treatment recommendation for management of Her low back pain. She has a history of anxiety, bariatric surgery. Her back pain began 2002 after she fell off a horse. She had a L5-S1 fusion in 2010 at [facility] during the surgery it was noted that her L5 nerve root was exiting her S1 foramen. The pain is described as continuous, throbbing, shooting, and aching. The pain is in her lumbar back with radiation down her left leg to her 3-5th toes. She also has a separate pain in her left hip and groin. She has underwent a left hip arthroscopy with Dr. Abdalla and is being considered for a left hip replacement. Provocative factors include walking, lifting, standing, and bending. Alleviating factors include mediations, lying down, ice. She reports occasional bladder and bowel incontinence with straining movements. She reports she has occasional left leg weakness which causes balance issues. She has paresthesiain her left leg but denies saddle anesthesia. She has seen Dr. 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 She also has seen Dr. Kapoor with orthopedic spine surgery and discussed possible extension of her fusion from L3-5. There was concern for her lumbar back preventing her from undergoing hip surgery, but her myelogram does not show severe stenosis that would prevent her from undergoing hip replacement surgery. Her pain at its best-worse level is 4-10/10, respectively. Pain right now is 8/10 on the numeric pain scale. Patient has done physical therapy: Yes. It was last done: 02/2024-05/2024. It was helpful: No. Patient has tried various pharmacotherapies with some degree of success: Pregabanoids Y Comments Anticonvulsants Y Comments Opioids Y Comments Gabapentin (Neurontin) [x] [place] like bugs crawling on her skin Carbamazepine (Tegretol) [] Tramdol (Ultram) [x] Headache Pregabalin (Lyrica) [] Oxcarbazepine (Trileptal) [] Tapentadol (Nucynta) [] TCA: Topiramate (Topamax) [] Buprenorphine (Belbuca, Bultran) [] Nortriptyline (Pamelor) [] Lamotrigine (Lamictal) [] Oxycodone/APAP (Percocet) [x] Amitriptyline (Elavil) [] Levetiracetam (Keppra) [] Hydrocodone/APAP ([place]) [x] Allergy Desipramine (Norpramin) [] Valproate (Depakote) [] Codeine/APAP (Tylenol#3, Tylenol#4) [] Imipramine (Tofranil) [] Mexiletine (Mexitil) [] Methadone [] SNRI: Muscle Relaxants: Fentanyl Patch (Duragesic) [] Duloxetine (Cymbalta) [] Cyclobenzaprine (Flexeril) [x] No benefit NSAIDS: Hx of bariatric surgery Venlafaxine (Effexor) [] Methocarbamol (Robaxin) [] Ibuprofen (Advil, Motrin) [] Milnacipran (Savella) [] Tizanidine (Zanaflex) [] Naproxen (Aleve) [] Others: Baclofen (Lioresal) [] Meloxicam (Mobic) [x] Acetaminophen (Tylenol) [] Metaxalone (Skelaxin) [] Diclofenac (Voltaren) [] Low dose naltrexone [] Carisoprodol (Soma) [x] Some benefit Indomethacin (Tivorbex) [] Topical patch and cream (Aspercreme, Lidoderm, Capzasin) [] Diazepam (Valium) [] Nabumetone (Relafen) [] Celecoxib (Celebrex) [] Etodolac (Lodine) [] Patient has various interventional therapies with some degree of success: Previous epidural injection with minimal benefit Left SI joint injection: Couple days of benefit Lumbar ablation with some benefit Imaging: CT myelogram 03/19/24: FINDINGS: Fluoroscopy: The spine is in the [...] L4-L5 with up to moderate canal narrowing. MRI L-Spine 02/24/24: FINDINGS: Multiple of the sequences are degraded by motion related artifact. SEGMENTATION: 5 uao-mqw-tellcus lumbar type vertebral bodies. ALIGNMENT: Grade 1 retrolisthesis of L2 on L3 and L3 on L4. VERTEBRAE: Non operative level no acute compression fracture. Multilevel endplate degenerative changes with marginal spur formation. Rounded T1 and T2 hyperintense foci including in the L1 vertebral body in keeping with intraosseous hemangioma. Mild diffuse heterogeneous T1 hypointense bone marrow signal is nonspecific and could be physiologic red marrow depending on patient's menstrual history. Alternatively red marrow reconversion in the setting of chronic anemia, obesity or tobacco use can also have similar appearance in a patient without history of malignancy. Request correlation with previous imaging studies and patient's history. DISC HEIGHT: Non operative level disc desiccation and height loss at L2-L3 and L3-L4. HARDWARE: Susceptibility signal relating to a previous L5-S1 posterior instrumentation with bilateral vertical stabilization rods, transpedicular screws and interbody fusion device. CORD/CAUDA: Conus medullaris terminates at L1. LOWER THORACIC: Incompletely imaged. Degenerative changes without high-grade spinal canal stenosis. INDIVIDUAL DISC LEVELS: L1-L2: Disc bulge with facet arthropathy and trace facet joint effusion. No significant spinal canal or neural foraminal narrowing. L2-L3: Disc bulge eccentric to the left neural foramen. Superimposed small central/left subarticular disc protrusion with annular fissure. Thickened ligamentum flavum facet arthropathy and trace facet joint effusion. Mild spinal canal stenosis. Ndmn-zowewnv-nixt-right lateral recess effacement. No significant neural foraminal narrowing. L3-L4: Disc bulge with marginal spur formation. Superimposed right neural foraminal disc protrusion. Thickened ligamentum flavum and facet arthropathy and facet joint effusion. Significant spinal canal stenosis. Mwcwe-awsqdcl-fmjv-left lateral recess effacement. Mild inferior right and no significant left neural foraminal narrowing. L4-L5: Disc bulge with thickened ligamentum flavum and bilateral facet arthropathy. Cspm-mk-fyhqgcnh spinal canal stenosis. Lateral recess effacement on both sides. Mild inferior left and no significant right neural foraminal narrowing. L5-S1: Surgical level. Evaluation limited by metal related artifact. No gross spinal canal or left neural foraminal narrowing. Right neural foramen is not well visualized. OTHER: The lumbosacral posterior paraspinal soft tissue STIR hyperintense signal, xgvw-mmtbenq-cnwu-right is nonspecific and could be metal related artifact. Alternatively sequelae of prior surgery or strain can also have similar appearance. IMPRESSION: 1. Previous L5-S1 posterior instrumentation. The surgical spinal canal is patent. 2. Dbol-xa-pgdzxlmy degenerative changes of the non operative levels as described. The spinal canal stenosis is most noticeable at L2-L3 and L4-L5. 3. Varying degrees of bilateral neural foraminal stenosis and additional findings as above. 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 Cancer ([facility]) (HCC) 2020 basal cell carcinoma removed from [facility] with the Moh's Chest pain Depression Disc disorder of lumbar region Female infertility Infertility, female Fibrocystic breast GERD (gastroesophageal reflux disease) Hammer toe Hammer toe; Comments: [facility] 06/27/2014 - HX OTHER MEDICAL Sinusitis, ADD, diverticulosis, obesity, OA, asthm HX OTHER MEDICAL Depression, with Anxiety; PCOS HX OTHER MEDICAL Missed Ab HX OTHER MEDICAL ; Outcome: 37W0D week 7lb(s) 7 oz Male Hypercholesterolemia High cholesterol; Comments: [facility] 06/27/2014 - Hypertension Hypertension Lumbar stenosis Motion sickness Osteoarthritis Retinal detachment Detachment of retina; Comments: [facility] 06/27/2014 - Past Surgical History: Procedure [...] Sleeve SPINAL FUSION 2010 Spinal fusion L5-S1 Social History Tobacco Use Smoking status: Never Smokeless tobacco: Never Substance and Sexual Activity Drug use: No Sexual activity: Yes Partners: Male control/protection: None Alcohol Use: Not At Risk (09/03/2024) AUDIT-C Frequency of Alcohol Consumption: Monthly or less Average Number of Drinks: 1 or 2 Frequency of Binge Drinking: Never Family History Problem Relation Age of Onset [...] Other Diabetes mellitus; Anesthesia problems Neg Hx HOME MEDICATIONS : albuterol HFA (PROVENTIL HFA,VENTOLIN HFA,PROAIR HFA) 90 mcg/actuation inhaler Concerta 36 mg CR tablet estradioL (VIVELLE-DOT) 0.075 mg/24 hr ferrous sulfate 325 mg (65 mg of elemental iron) tablet magnesium phosphate, bulk, powder meloxicam (MOBIC) 15 mg tablet methylphenidate HCl (RITALIN) 5 mg tablet oxyCODONE-acetaminophen (PERCOCET) 5-325 mg per tablet sucralfate (CARAFATE) suspension 1 gram/10 mL traZODone (DESYREL) 50 mg tablet buPROPion SR (WELLBUTRIN SR) 100 mg 12 hr tablet busPIRone (BUSPAR) 15 mg tablet desipramine (NORPRAMIN) 25 mg tablet diazePAM (VALIUM) 5 mg tablet progesterone (PROMETRIUM) 200 mg capsule tiZANidine (ZANAFLEX) 4 mg tablet Review of Systems As per HPI, all other systems negative Physical Exam Vitals: 09/03/24 0939 09/03/24 1000 09/03/24 1005 09/03/24 1017 BP: (!) 183/105 (!) 201/106 (!) 205/103 (!) 180/88 BP Location: Patient Position: Pulse: 80 79 79 Resp: 18 18 16 Temp: TempSrc: SpO2: 95% 96% 98% There is no height or weight on file to calculate BMI. GENERAL: In no acute distress. Well-developed and well nourished. PSYCHOLOGICAL: Alert and oriented. Cooperative, normal stated mood, congruent affect. HENT: Normocephalic, atraumatic. Hearing adequate for conversation. EYES: Non-icteric sclera. ABDOMEN: Non-distended RESPIRATORY: Non-labored breathing. No audible cough or wheeze. CARDIOVASCULAR: No edema. Bilateral lower extremities are warm and well perfused. SKIN: No rashes or open wounds involving posterior torso, posterior pelvis, lower extremities. NEUROLOGIC: Cranial Nerves: II-XII grossly intact Spine Lumbar/Pelvis Palpation: Tenderness along left paraspinal ROM: decreased Special Tests: SLR positive on left Facet tenderness: moderate on left Lumbar facet loading: positive on left CAM test: positive on left Gaenslen's test: positive on left SI joint compression positive left Strength Lower Extremity Right Left Hip Flexion (L2, Femoral N.) 5/5 4+/5 Knee Extension (L3, Femoral N.) 5/5 5/5 Ankle Dorsiflexion (L4, Deep Peroneal N.) 5/5 5/5 Great Toe Extension (L5, Deep Peroneal N.) 5/5 5/5 Ankle Plantarflexion (S1, Tibial N.) 5/5 5/5 Assessment 1. Sacroiliitis (HCC) 2. Lumbar back pain The above note documents my personal evaluation of this patient. In addition, I have reviewed and confirmed with the patient and nurse the supportive information documented in today's scanned PatientHealth Questionnaire and Office Note. Plan 1. Intervention: Given the signs and symptoms of left sacroiliitis, we will proceed with left SI joint injection today Discussed SCS that Finesse wanted to consider due to a friend having good benefit from it. Her pain seems to be from chronic lumbar radiculopathy, sacroiliitis, and facet arthropathy which has variablebenefit from SCS. Therefore discussed trying repeat injections and medications prior to consideringa SCS which she is in agreement with. R/B/A discussed, including but not limited to bleeding, infection, and possible nerve injury/paralysis. Alternatives (risks) include: medication management (dependency), no intervention (increased pain). Patient understand risks/benefits/alternatives and agrees to proceed with injection. 2. Medications: a. Opioids: Has been on oxycodone in the past with some benefit, she will discuss with her PCP alternatives. b. Adjuvants: Given the neuropathic component of the pain, we will start on a titration of desipramine to a goal of 25mg qhs. Will start tizanidine 4mg TID prn 3. Imaging: No further imaging needed at this current time 4. Referral: We will refer the patient to our pain psychologist for evaluation regarding possible group therapy or other guided pain psychological therapies. 5. Follow-up: In 2-3 months for re-evaluation of the above regimen. Olga Kathleen M.D. Department of Anesthesiology [facility], [facility] documented in this encounter Miscellaneous Notes * Perioperative Nursing Note - Kaya Robb RN - 09/03/2024 8:00 AM CDT Patient had steady gait. Site clean/dry/intact. Patient verbalized understanding to discharge instructions. * Op Note - Olga Kathleen MD - 09/03/2024 8:00 AM CDT Patient ID Patient Name: Finesse Ramirez : 1970 DOS: 09/03/2024 PCP: Laureano Lantigua MD Assessment Encounter Diagnoses Name Primary? Lumbar back pain Sacroiliitis (HCC) Yes Surgeon Attending Surgeon: Olga Kathleen M.D. Surgical Assistants: None Procedures NAME OF PROCEDURE: Left Sacroiliac Joint Injection, with Fluoroscopy. PREPROCEDURAL DIAGNOSES: Left Sacroiliitis POSTPROCEDURAL DIAGNOSES: Left Sacroiliitis INDICATION FOR PROCEDURE: Patient complained of left low back pain in SI joint with provocation test. INFORMED CONSENT: After reviewing the procedure with the patient, informed consent to proceed with the injection was obtained. A procedural permit was also signed. DESCRIPTION OF PROCEDURE: The patient was placed in the prone position on the fluoroscopy table. Fluoroscopy was used to identify the needle entry point for the left sacroiliac joint injection, to reach the inferior aspect of the joint. The sacral and buttock area was prepped with Chlorhexidine solution and draped with sterile towels. The needle entry point was infiltrated with 1% lidocaine. A 25gauge spinal needle was advanced to the posterior margin of the inferior aspect of the sacroiliac joint. Radiographic contrast (Omnipaque 300) for a total of 0.5 ml was injected to ensure accurate placement of the needle in the posterior aspect of the joint. With the needle in the appropriate position, triamcinolone, 40 mg, with bupivacaine, 5 mg, (total volume 3 ml) was injected. The procedure was well tolerated, there were no apparent complications, and the patient seemed to have significant relief of pain following the procedure. Dr. Kathleen was present for, and participated in, the entire procedure. DISPOSITION: Patient discharged home in stable condition. No Resident involved on case Olga Kathleen M.D. Instructor of Anesthesiology Department of Anesthesiology [facility] documented in this encounter Plan of Treatment Scheduled Referrals Name Type Priority Associated Diagnoses Order Schedule Ambulatory referral to Pain Management Outpatient Referral Routine Lumbar back pain Once for 1 Occurrences starting 09/03/2024 until 09/03/2024 documented as of this encounter Goals Goal [...] Procedure Name Priority Date/Time Associated Diagnosis Comments PAIN MGMT IMAGING SI JOINT LEFT Schedule Routine, Read Routine (OP Routine) 09/03/2024 10:00 AM CDT Sacroiliitis (HCC) documented in this encounter Results * Imaging SI Joint Injection Left (06829) (09/03/2024 10:00 AM CDT) Narrative [id number] - 09/03/2024 10:01 AM CDT The images from this study are not interpreted by Radiology. ??Please refer to the physician's procedure / OR operative note. us Olga Kathleen MD IMG PAIN MGMT PROCEDURES Final Result [facility] documented in this encounter Visit Diagnoses Diagnosis Sacroiliitis (HCC)- Primary Sacroiliitis, not elsewhere classified Lumbar back pain Lumbago documented in this encounter Administered Medications Inactive Administered Medications - up to 3 most recent administrations Medication Order MAR Action Action Date Dose Rate Site BUPivacaine (MARCAINE) 0.25 % (2.5 mg/mL) preservative free injection As needed, Starting on Fri09/03/24 at 0958, Intra-Op Given 09/03/2024 9:58 AM CDT 3 mL iohexoL (OMNIPAQUE) 300 mg iodine/mL injection solution As needed, Starting on Fri09/03/24 at 0958, Intra-Op Given 09/03/2024 9:58 AM CDT 5 mL lidocaine (PF) (XYLOCAINE) 10 mg/mL (1 %) preservative free injection As needed, Starting on Fri09/03/24 at 0957, Intra-Op Given 09/03/2024 9:57 AM CDT 5 mL triamcinolone (KENALOG) 40 mg/mL injection As needed, Starting on Fri09/03/24 at 0958, Intra-Op Given 09/03/2024 9:58 AM CDT 40 mg documented in this encounter Care Teams Purification Supervisor Relationship Specialty Start Date End Date Laureano Lantigua MD [address] [place] [address] PCP - General Internal Medicine 07/30/18 Tony Washington MD [address] [facility] [address] [place] [address] Client Service Associate Obstetrics and Gynecology 11/16/18 Anahy Rosales MD [address] [facility] [address] [place] [address] Referring Physician Psychiatry 11/16/18 Nathalia Rodas, PT Physical Therapist Physical Therapy 02/14/23 documented as of this encounter
--- OUTSIDE RECORDS SUMMARY | 2024-11-15 03:21 | XMS_ITS | Encounter Summary ---
Author Organization [facility] Address [address] [place] [address] Phone Care Team Providers Care Horse Trader Name Role Phone Laureano Lantigua MD Primary Care Provider [phone] Tony Washington MD Unavailable [phone] Anahy Rosales MD Unavailable [phone] Nathalia Rodas PT Unavailable Unavailable Encounter Details Date Type Department Care Team (Late st Contact Info) Description 07/15/2024 Telephone [facility] Scheduling [address] [place] [address] Etelvina Barbour Social History Tobacco Use Types Packs/Day Years [...] on file Legal Sex Female 1:37 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 new Referring physician Other: Orthopaedic washu. Referred to: First Available: Second Opinion: Yes Insurance: Medicare: Name of Plan BCBS Send Letter to PCP for Insurance Auth: Yes Litigation: No Has the patient had spinal surgery within the last year? No Diagnosis: Radiculopathy Location (Spinal Area): Lumbar Imaging Done within Last Year: Yes List ALL CT: Month 2023 MRI: Month 2023 Xray: 03/10/2024 Myelogram 03/19/2024 Imaging Location: in [facility] FAX Records Requested: In [facility] HT: 6 WT: 194 BMI: 26.3 Weakness: Yes on the left side Numbness: Yes Spinal Pain: Radiating Pain, Shooting Pain, Stabbing Pain, upper back, lower back, both leg(s), left hip(s), left knee(s), and left Feet/toes. pT said issues are not related to the her back problem. Loss of bowel or bladder control: Yes Duration of symptoms: Since 2002 Spine surgery - within last 10 years: No Physical therapy within last year Yes Location: [facility] FAX Records Requested: In [facility] Pain Management (Injections) within last year : No back injection. Are you a current smoker on nicotine: No Reason for visit: New Pt Appt Date: 07/29/2024 Time: 8:30am Location: [facility] (4) Provider: Charley Routed: Charley Remind pt to arrive 45 min early for xrays: Yes Patient Informed about possible wait time to be seen by Providers: Yes ???Please expect your total visit time to be approximately 2-4 hours for a new patient visit or surgical consultation. This time will involve x-ray imaging, processing, interpretation, evaluation by Providers team, and consultation with Doctor. Please expect that during this time you may be waitingin between x-rays, evaluation by Provider's team, and consultation with Doctor. This wait time is necessary for a thorough review, analysis, and interpretation of your clinical history, radiological studies, current condition, and formulation of a clinical plan. We ask for your patience and know that while you are waiting, your care is being actively planned?? documented in this encounter Plan of Treatment Not on file documented as of this encounter Visit Diagnoses Not on filedocumented in this encounter Care Teams Horse Trader Relationship Specialty Start Date End Date Laureano Lantigua MD [address] [place] [address] PCP - General Internal Medicine 07/30/18 Tony Washington MD [address] [place] [address] [address] [place] [address] Sample Stitcher Obstetrics and Gynecology 11/16/18 Anahy Rosales MD [address] [place] [address] [place] [address] Referring Physician Psychiatry 11/16/18 Nathalia Rodas, PT Physical Therapist Physical Therapy 02/14/23 documented as of this encounter
--- OUTSIDE RECORDS SUMMARY | 2024-11-15 03:21 | XMS_ITS | Encounter Summary ---
Author Organization [facility] Healthcare Address [address] [place] [address] Care Team Providers Care Crusher Feeder Name Role Phone Laureano Lantigua MD Primary Care Provider [phone] Tony Washington MD Unavailable [phone] Anahy Rosales MD Unavailable [phone] Nathalia Rodas PT Unavailable Unavailable Reason for Visit * Reason Comments Hypertension Elevated blood press ure, on for hip replacement Nov 08. Encounter Details Date Type Department Care Team (Late st Contact Info) Description 10/25/2024 2:45 PM MINERALOGY PROFESSOR Office Visit [facility] [address] [place] [address] Laureano Lantigua MD [address] [place] [address] Pre-op exam (Primary Dx); Hypertension, essential Social History Tobacco Use Types Packs/Day Years [...] on file Legal Sex Female 1:37 AM MINERALOGY PROFESSOR Gender Identity Female 10/03/2023 10:05 AM MINERALOGY PROFESSOR Sexual Orientation Straight 10/03/2023 10 :05 AM MINERALOGY PROFESSOR documented as of this encounter Last Filed Vital Signs Vital Sign Reading Time Taken Comments Blood Pressure 204/110 10/25/2024 3:29 PM MINERALOGY PROFESSOR Pulse 66 10/25/2024 3:02 PM MINERALOGY PROFESSOR Temperature 37 ??C (98.6 ??F) 10/25/2024 3:02 PM MINERALOGY PROFESSOR Respiratory Rate 20 10/25/2024 3:02 PM MINERALOGY PROFESSOR Oxygen Saturation 99% 10/25/2024 3:02 PM MINERALOGY PROFESSOR Inhaled Oxygen Concentration - - Weight 95.7 kg (211 lb) 10/25/2024 3:02 PM MINERALOGY PROFESSOR Height 182.9 cm (6' 0.01 ) 10/25/2024 3:02 PM CS T Body Mass Index 28.61 10/25/2024 3:02 PM MINERALOGY PROFESSOR documented in this encounter Patient Instructions * Patient Instructions* Laureano Lantigua MD - 10/25/2024 2:45 PM MINERALOGY PROFESSOR Get last records from dr wolfe Get labs from [facility] / EKG Call back on with bp readings RALOGY PROFESSOR RALOGY PROFESSOR documented in this encounter Ordered Prescriptions Prescription Sig Dispense Quantity Refills Last Filled Start Date End Date lisinopril-hydroCH LOROthiazide (ZESTORETIC) 20-25 mg per tabletIndications: hypertension Take 1 tablet by mouth daily 90 tablet 4 10/25/2024 10/25/2025 documented in this encounter Progress Notes * Laureano Lantigua MD - 10/25/2024 2:45 PM CST Images from the original note were not included. Finesse Ramirez is a 54 y.o. year old White Non- female here for 1. Pre op for left hip replacement 2. Essential HTN goal bp is 130/80 or under ASSESSMENT AND PLAN: Diagnoses and all orders for this visit: Pre-op exam (Primary) Assessment & Plan: Pt is medically optimized for hip surgery Forms were filled out today Will get the labs and EKG readings from [facility] Hypertension, essential Assessment & Plan: Goal bp is 130/80 or under Low na diet Start lisinopril / hctz 20 /25 mg po qday Check bp and call me back by Other orders - lisinopril-hydroCHLOROthiazide (ZESTORETIC) 20-25 mg per tablet; Take 1 tablet by mouth daily Hypertension Start lisinopril / hctz 20/12.5 mg po qday goal bp is 130/80 or less call back in five days for rptbp am and pm Pre op left hip replacment with dr jones at [facility] she will be staying overnight Health Maintenance: None New Problems , Essential htn Allergies: Allergies Allergen Reactions Erythromycin Rash Nylon Rash Stitches-severe redness: had to be removed early Morphine Nausea & Vomiting Vicodin [Hydrocodone-Acetaminophen] Vomiting Medication Changes today : Lisinopril/hctz 20/25 mg po qday se of the meds were discussed Procedures : None Vitals: Vitals BP (!) 204/110 Pulse 66 Temp 37 ??C (98.6 ??F) Resp 20 Ht 182.9 cm (6' 0.01 ) Wt 95.7 kg (211 lb) SpO2 99% BMI 28.61 kg/m?? Body mass index is 28.61 kg/m??. Review of Systems: Review of Systems Constitutional: Negative. HENT: Negative. Respiratory: Negative. Musculoskeletal: Positive for arthralgias, back pain, gait problem and joint swelling. Psychiatric/Behavioral: Positive for dysphoric mood. Exam: Physical Exam Constitutional: Appearance: Normal appearance. Cardiovascular: Rate and Rhythm: Normal rate and regular rhythm. Pulses: Normal pulses. Heart sounds: Normal heart sounds. Musculoskeletal: General: Normal range of motion. Cervical back: Normal range of motion. LABS : Lab Results Component Value Date WBC 6.5 03/12/2023 HGB 13.3 03/12/2023 HCT 38.9 03/12/2023 MCV 91.3 03/12/2023 Lab Results Component Value Date GLUCOSE 96 03/12/2023 CALCIUM 9.2 03/12/2023 SODIUM 140 03/12/2023 POTASSIUM 4.1 03/12/2023 CO2 24 03/12/2023 CHLORIDE 105 03/12/2023 BUNSER 13 03/12/2023 CREATININE 0.87 03/12/2023 Care Team Providers: Laureano Lantigua MD RALOGY PROFESSOR documented in this encounter Miscellaneous Notes * Assessment & Plan Note - Laureano Lantigua MD - 10/25/2024 7:28 PM MINERALOGY PROFESSOR Associated Problem(s): Pre-op exam Pt is medically optimized for hip surgery Forms were filled out today Will get the labs and EKG readings from [facility] RALOGY PROFESSOR * Assessment & Plan Note - Laureano Lantigua MD - 10/25/2024 3:19 PM MINERALOGY PROFESSOR Associated Problem(s): Elevated blood pressure reading with diagnosis of hypertension Goal bp is 130/80 or under Low na diet Start lisinopril / hctz 20 /25 mg po qday Check bp and call me back by RALOGY PROFESSOR RALOGY PROFESSOR documented in this encounter Plan of [...] as of this encounter Visit Diagnoses Diagnosis Pre-op exam- Primary Hypertension, essential Unspecified essential hypertension documented in this encounter Discontinued Medications Medication Sig Discontinue Reason Start Date End Da te progesterone (PROMETRIUM) 200 mg capsuleIndications:Symp tomatic menopausal or female climacteric states One pill vaginally every night for 12 days every 3 months Therapy completed 02/16/2024 10/25/2024 documented as of this encounter Care Teams Crusher Feeder Relationship Specialty Start Date End Date Laureano Lantigua MD [address] [place] [address] PCP - General Internal Medicine 07/30/18 Tony Washington MD [address] [facility] [address] [place] [address] Video Systems Engineer Obstetrics and Gynecology 11/16/18 Anahy Rosales MD [address] [facility] [address] [facility] [place] [address] Referring Physician Psychiatry 11/16/18 Nathalia Rodas, HENRY Physical Therapist Physical Therapy 02/14/23 documented as of this encounter
--- OUTSIDE RECORDS SUMMARY | 2024-11-15 03:21 | XMS_ITS | Encounter Summary ---
Author Organization [facility] Address [address] [place] [address] Phone Care Team Providers Care Turret Punch Press Operator Name Role Phone Laureano Lantigua MD Primary Care Provider [phone] Tony Washington MD Unavailable [phone] Anahy Rosales MD Unavailable [phone] Nathalia Rodas PT Unavailable Unavailable Encounter Details Date Type Department Care Team (Late st Contact Info) Description 11/01/2024 2:00 PM PHYSICIAN PRACTICE CONSULTANT Office Visit [facility] [address] [facility] [address] [place] [address] Ct Zhang, PhD [address] [place] [address] Generalized anxiety disorder (Primary Dx); Other chronic pain Social History Tobacco Use Types Packs/Day [...] on file Legal Sex Female 1:37 AM PHYSICIAN PRACTICE CONSULTANT Gender Identity Female 10/03/2023 10:05 AM PHYSICIAN PRACTICE CONSULTANT Sexual Orientation Straight 10/03/2023 10 :05 AM PHYSICIAN PRACTICE CONSULTANT documented as of this encounter Progress Notes * Ct Zhang, PhD - 11/01/2024 2:00 PM CST Psychology Note Date of Service: 11/01/24 Start time: 2:07pm End time: 3:08pm Interval History: Finesse Ramirez reported that she has been experiencing heightened emotional and physical pain and distress since meeting last. She reported having high blood pressure which has caused concerns about the feasibility of her hip surgery. She also noted interpersonal difficulties that have increased emotional distress. Diagnosis (F41.1) Generalized anxiety disorder (primary encounter diagnosis) (G89.29) Other chronic pain Mental status exam APPEARANCE Level of consciousness: alert Attire: neat Cleanliness and grooming: clean and well-groomed Eye contact: good ATTITUDE: cooperative ACTIVITY: engaged PAIN BEHAVIOR: Slow to walk and stand,s ome adjusting MOOD ???Awful?? exhausted guilty Type: anxious, tearful, depressed AFFECT Appropriateness: appropriate Intensity: heightened Mobility: mobile Range: full Reactivity: reactive SPEECH: regular rate and rhythm THOUGHT PROCESS: goal-directed and logical CONTENT OF THOUGHT: unremarkable COGNITION Orientation: alert and oriented to place, time, person, and situation Attention/Concentration: within normal limits; somewhat distractible Recent memory: within normal limits Remote memory: within normal limits INSIGHT/JUDGMENT: fair SUICIDALITY: Ideation: denied Plans: denied Intentions: denied Psychotherapy: I provided dialectical behavioral-informed therapy for the purpose of helping her learn how to more effectively manage her chronic pain, depression, anxiety, and emotional distress. Wespecifically focused on collaborative treatment planning, education on DBT, discussion of diagnostic impressions, and orientation and commitment. . I explained how treatment will involve elements from DBT without being comprehensive DBT. We discussed treatment options and Finesse expressed interest in proceeding with this approach with this provider. Progress is good. Plan: Finesse Ramirez was given the assignment to review provided materials. . Her next appointment is scheduled for 11/22/24. Note not shared: Privacy This patient's allergies, medications, and problem list were noted but not managed by me as a non-medical provider. Ct Zhang, PhD Clinical Psychologist Soccer Ball Assembler Division of Pain Management Department of Anesthesiology [facility] ICIAN PRACTICE CONSULTANT documented in this encounter Plan of Treatment [...] as of this encounter Visit Diagnoses Diagnosis Generalized anxiety disorder- Primary Other chronic pain documented in this encounter Care Teams Turret Punch Press Operator Relationship Specialty Start Date End Date Laureano Lantigua MD [address] [place] [address] PCP - General Internal Medicine 07/30/18 Tony Washington MD [address] [facility] [place] [address] Assisted Living Home Director Obstetrics and Gynecology 11/16/18 Anahy Rosales MD [address] [facility] [place] [address] Referring Physician Psychiatry 11/16/18 Nathalia Rodas, PT Physical Therapist Physical Therapy 02/14/23 documented as of this encounter
--- OUTSIDE RECORDS SUMMARY | 2024-11-15 03:21 | XMS_ITS | Encounter Summary ---
Author Organization [facility] Address [address] [place] [address] Phone Care Team Providers Care Tie Presser Name Role Phone Laureano Lantigua MD Primary Care Provider [phone] Tony Washington MD Unavailable [phone] Anahy Rosales MD Unavailable [phone] Nathalia Rodas PT Unavailable Unavailable Reason for Referral * Diagnostic Imaging (Routine) - Closed Specialty Diagnoses / Procedures Referred By Contac t Referred To Contact Diagnoses Lumbar back pain Procedures XR Scoliosis 6 or More Views Charley Carter MD [address] [place] [address] Phone: tel: fax: [facility] [id number] [place] [address] [place] [address] Referral ID Status Reason Start Date Expiration Date Visits Re quested Visits Authorized [id number] Closed 07/20/2024 08/19/2025 1 1 Encounter Details Date Type Department Care Team (Late st Contact Info) Description 07/20/2024 Orders Only [facility] [address] [facility] [address] [place] [address] Charley Carter MD [address] [place] [address] Lumbar back pain (Primary Dx) Social History Tobacco Use [...] on file Legal Sex Female 1:37 AM LIME BURNER Gender Identity Female 10/03/2023 10:05 AM LIME BURNER Sexual Orientation Straight 10/03/2023 10 :05 AM LIME BURNER documented as of this encounter Plan of Treatment Not on file documented as of this encounter Results * XR Scoliosis 6 [...] L5-S1 Electronically signed by: Tracie Ham MD us Charley Carter MD IMG XR PROCEDURES Final Resul t documented in this encounter Visit Diagnoses Diagnosis Lumbar back pain- Primary Lumbago Lumbar back pain Lumbago documented in this encounter Care Teams Tie Presser Relationship Specialty Start Date End Date Laureano Lantigua MD [address] [place] [address] PCP - General Internal Medicine 07/30/18 Tony Washington MD [address] [facility] [address] [place] [address] Podiatry Assistant Obstetrics and Gynecology 11/16/18 Anahy Rosales MD [address] [facility] [place] [address] Referring Physician Psychiatry 11/16/18 Nathalia Rodas, HENRY Physical Therapist Physical Therapy 02/14/23 documented as of this encounter
--- OUTSIDE RECORDS SUMMARY | 2024-11-15 03:21 | XMS_ITS | Clinical Summary ---
Author Organization [facility] s Address [address] [place] [address] Care Team Providers Care Ergonomics Technician Name Role Phone Laureano Lantigua MD Primary Care Provider [phone] Tony Washington MD Unavailable [phone] Anahy Rosales MD Unavailable [phone] Nathalia Rodas PT Unavailable Unavailable Allergies Active Allergy Reactions Criticality Noted Date [...] 2 puffs qid prn 1 each 01/04/20 Active Additional Information Patient taking differently: 2 [...] 10/25/2024 Assessment & Plan (10/25/2024 7:28 PM BANDOLEER PACKER): Pt is medically optimized for hip surgery Forms were filled out today Will get the labs and EKG readings [place] Elevated blood pressure read ing with diagnosis of hypertension 10/25/2024 Assessment & Plan (10/25/2024 7:27 PM BANDOLEER PACKER): Goal bp is 130/80 or under Low [...] major depressive d isorder, in full remission (CMS/HCC) 10/27/2017 Attention deficit hyperactivity disorder (ADHD) 10/27/2017 Tachycardia 12/28/2014 Morbid obesity 08/18/2014 Asthma 06/28/2014 Overview (02/20/2017): Asthma Osteoarthritis of cervical spine 10/08/2011 Lumbago 10/08/2011 Lumbar back pain 01/27/2011 Resolved Problems Problem Noted Date Diagnosed Date Resolved Date Excessive or frequent menstruation 03/12/2023 04/07/2023 Screen for colon cancer 01/03/2021 03/0 06/2022 Overview (01/03/2021): Added automatically from request for surgery [id number] Routine physical examination 11/16/2018 11/22/2019 Encounters Date Type Department Care Team Description 11/01/2024 2:00 PM BANDOLEER PACKER Office Visit [facility] [address] [address] [facility] Generalized anxiety disorder (Primary Dx); Other chronic pain 10/26/2024 8:04 PM BANDOLEER PACKER - 10/26/2024 9:33 PM [facility] Emergency [facility] Emergency Department [address] [place] [address] Elevated blood pressure reading with diagnosis of hypertension (Primary Dx); ECG abnormality Discharge Disposition: Discharge to home or self care 10/26/2024 8:41 AM BANDOLEER PACKER - 10/26/2024 8:56 AM [facility] Emergency [facility] Emergency Department [address] [place] [address] Discharge Disposition: Left without being seen 10/26/2024 [facility] [address] [place] [address] Laureano Lantigua MD Abnormal ECG 10/25/2024 2:45 PM BANDOLEER PACKER [facility] [address] [place] [address] Laureano Lantigua MD Pre-op exam (Primary Dx); Hypertension, essential 10/25/2024 Telephone [facility] [address] [place] [address] Tatyana Akbar RN 10/08/2024 12:00 PM BANDOLEER PACKER Office Visit [facility] [address] [place] [address] [phone] Ct Zhang, PhD Other chronic pain (Primary Dx); Adjustment disorder with mixed anxiety and depressed mood; Alcohol use disorder 10/06/2024 Orders Only [facility] [address] [place] [phone] Scanning, Provider 10/01/2024 2:00 PM BANDOLEER PACKER Office Visit [facility] [address] [place] [address] [address] Ct Zhang, PhD Other chronic pain (Primary Dx); Lumbar back pain; Adjustment disorder with mixed anxiety and depressed mood 09/17/2024 Telephone Pain Management Center at [address], [address] [place] [address] Olga Kathleen MD 2 week follow up s/p left SIJ 09/03/2024 7:47 AM CDT - 09/03/2024 11:59 PM CDT Hospital Encounter Pain Management Center at [address], [address] [place] [address] Olga Kathleen MD Sacroiliitis (HCC) (Primary Dx); Lumbar back pain Discharge Disposition: Discharge to home or self care from Last 3 Months Immunizations Name Administration Dates Next Due Hep A, Adult 10/28/2018,02/04/2018 Hep B Vaccine 10/28/2018 Influenza, Quadrivalent, Split, Intramuscular Influenza, Quadrivalent, Spl it, Preservative Free, Intramuscular 10/20/2023,08/11/2021 Tdap 10/27/2017 Surgical History Surgery Date Site/Laterality Comments CARPAL TUNNEL RELEASE 11/17/1991 - 11/16/1992 Bilateral Carpal tunnel release ROTATOR CUFF REPAIR 11/17/2007 - 11/16/2008 Left OTHER SURGICAL HISTORY retina re-attachment, multiple surgeries; unknown date DILATION AND CURETTAGE OF UTERUS 11/17/2010 - 11/16/2011 Missed Ab: Suction D&C; SPINAL FUSION 11/17/2010 - 11/16/2011 Spinal fusion L5-S1 ANTERIOR CRUCIATE LIGAMENT REPAIR 11/17/2007 - 11/16/2008 Right Right ACL repair ROTATOR CUFF REPAIR 11/17/2016 - 11/16/2017 Left Rotator cuff repair ANKLE SURGERY 11/17/2007 - 11/16/2008 Left Ankle surgery CHOLECYSTECTOMY 03/17/2018 - 04/16/2018 ELBOW SURGERY 11/07/2020 Left x2 COLONOSCOPY 03/27/2021 1st MOHS SURGERY 07/18/2021 - 08/16/2021 Basil Cell SLEEVE GASTROPLASTY 11/17/2014 - 11/16/2015 Laparoscopic Gastric Sleeve CARDIAC CATHETERIZATION 11/17/2012 - 11/16/2013 COMBINED HYSTEROSCOPY DIAGNOSTIC / D&C 03/12/2023 ENDOMETRIAL ABLATION 03/12/2023 CATARACT EXTRACTION 2004 BARIATRIC SURGERY Medical History Medical History Date Comments Hypertension Hypertension Hx Other Medical Sinusitis, ADD, diverticulosis, obesity, OA, asthm Hx Other Medical Depression, wit h Anxiety; PCOS Hx Other Medical Missed Ab Hammer toe Hammer toe; Comm ents: [facility] 06/27/2014 - Retinal detachment Detachment of retina; Comments: [facility] 06/27/2014 - Hypercholesterolemia High choles terol; Comments: [facility] 06/27/2014 - Asthma Asthma; Comments : [facility] 06/27/2014 - Female infertility Infertility, female Hx Other Medical ; Outc ome: [id number] week 7lb(s) 7 oz Male Fibrocystic breast Motion sickness GERD (gastroesophageal reflux disease) Cancer (CMS/HCC) (HCC) 2020 basal 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 Chest pain Depression Lumbar stenosis Disc disorder of lumbar region Osteoarthritis Adhd Family History Medical History Relation Name Comments Heart attack Cousin 2 Myocardial Infa rction; Heart attack Father DADDad Myocardial Infa rction; Heart disease Father DADDad Heart disease; Hyperlipidemia Father DADDad High choleste rol; Heart attack Maternal Grandfather Myocard ial Infarction; Cause of : Myocardial Infarction Prostate cancer Maternal Grandfather Canc er, prostate; Hypertension Maternal Grandmother Hyperte nsion; Cancer Mother Hypertension Mother Hypertension; Heart disease Other 1 Heart disease; Diabetes Other 2 Diabetes mellit us; Anesthesia problems Neg Hx Relation Name Status Comments Cousin 1 Alive Cousin 2 Father DADDad Alive Maternal Grandfather (Age 65) Maternal Grandmother Mother Other 1 Other 2 Social History Tobacco Use Types Packs/Day Years [...] on file Legal Sex Female 1:37 AM BANDOLEER PACKER Gender Identity Female 10/03/2023 10:05 AM BANDOLEER PACKER Sexual Orientation Straight 10/03/2023 10 :05 AM BANDOLEER PACKER Obstetrics History Para Term AB IAB SAB Ectopic Multiple Livin g Live Births 2 1 1 0 1 0 1 0 0 1 1 Date Outcome GA Total Labor Labor/2nd/3rd Weight Sex Type Anes PTL Casandra A1 A5 Name Clin Term Vag-Spo nt SAB Last Filed Vital Signs Vital Sign Reading Time Taken Comments Blood Pressure 134/85 10/26/2024 9:32 PM BANDOLEER PACKER Pulse 80 10/26/2024 9:32 PM BANDOLEER PACKER Temperature 36.6 ??C (97.8 ??F) 10/26/2024 7:32 PM CS T Respiratory Rate 18 10/26/2024 9:32 PM BANDOLEER PACKER Oxygen Saturation 98% 10/26/2024 9:32 PM BANDOLEER PACKER Inhaled Oxygen Concentration - - Weight 94.3 kg (208 lb) 10/26/2024 8:44 AM BANDOLEER PACKER Height 182.9 cm (6') 10/26/2024 8:44 AM BANDOLEER PACKER Body Mass Index 28.21 10/26/2024 8:44 AM BANDOLEER PACKER Plan of Treatment Health Maintenance Due Date Last Done Comments Hepatitis C Screening 1970 Pneumococcal vaccine <65 (1 of 2 - PCV) 1977 Zoster Vaccine (1 of 2) 2021 Breast Cancer Screening-Mammogram 01/01/2022 01/01/2021, 02/08/2019, 11/11/2017, Additional history exists Depression Screening 01/29/2024 01/28/2023, 01/22/2022, 11/22/2019 Covid-19 Vaccine (2 - 2023-2 5 season) 2024 01/25/2021 Influenza Vaccine (#1) 2024 , 08/11/2021, 11/07/2016 Cervical Cancer Screening 02/15/20252023, 01/28/2023, 01/22/2022, Additional history exists Regular Well Visit/Exam 18-64 02/15/2025, 10/20/2023, 01/28/2023, Additional history exists DTaP/Tdap/Td Vaccine (2 - Td or Tdap) 10/27/2027 10/27/2017 Colon Cancer Screening-Colonoscopy 03/27/20312020 Goals Goal Patient Goal Type Associated Problems [...] as needed Medical Devices Implanted Type Area Radioisotope Technologist Device Identifier Shelf Expiration Date Model / Serial / Lot Lspine Fusion Spine Lumbar Procedures Procedure Name Priority Date/Time Associated Diagnosis Comments TROPONIN T HIGH-SENSITIVITY 4-HR Timed 10/26/2024 7:54 PM BANDOLEER PACKER EGFR STAT 10/26/2024 3:34 PM BANDOLEER PACKER DIFFERENTIAL AUTO STAT 10/26/2024 3:3 4 PM BANDOLEER PACKER TROPONIN T HIGH-SENSITIVITY SERIES (BASELINE, 2HR, 4HR, 6HR) STAT 10/26/2024 3:34 PM BANDOLEER PACKER CBC WITH AUTO DIFFERENTIAL STAT 10/26/2024 3:34 PM BANDOLEER PACKER COMPREHENSIVE METABOLIC PANEL STAT 10/26/2024 3:34 PM BANDOLEER PACKER ECG 12-LEAD STAT 10/26/2024 2:31 PM BANDOLEER PACKER ECG 12-LEAD STAT 10/26/2024 8:50 AM BANDOLEER PACKER SCAN - RADIOLOGY/IMAGING 10/06/2024 PAIN MGMT IMAGING SI JOINT LEFT Schedule Routine, Read Routine (OP Routine) 09/03/2024 10:00 AM CDT Sacroiliitis (HCC) PAP, REFLEX HPV Routine 02/16/2024 3:25 PM CDT Well woman exam COLONOSCOPY 03/27/2021 11:21 AM CDT SCREENING MAMMOGRAM BILATERAL W RADHA Schedule Routine, Read Routine (OP Routine) 01/01/2021 8:09 AM BANDOLEER PACKER Encounter for screening mammogram for malignant neoplasm of breast from Last 3 Months or Most Recently Relevant to Health Maintenance Results * Troponin T high-sensitivity 4-hour (10/26/2024 7:54 PM BANDOLEER PACKER) Trop T hs <6 <=14 ng/L Comment: Interpretive Data For further hscTnT resources including the diagnostic algorithm and an aid in interpretation, copy and paste this link: https://nrl.[employer].org/show/hsTrop Current Interpretive Data last revised 2020. Trop T hs delta 0 ng/L [facility] ([place]) Trop T hs interp Insignificant [facility] ([place]) Blood 10/26/2024 7:54 PM BANDOLEER PACKER 10/26/2024 8:00 PM BANDOLEER PACKER Mac Dexter MD LAB BLOOD ORDERABLES Final R esult Performing Organization Address City/[facility]/ZIP Co de Phone Number [facility] ([place]) [address] [place] [address] [employer] [place] [address] * Troponin T high-sensitivity series (baseline, 2hr, 4hr, 6hr) (10/26/2024 3:34 PM BANDOLEER PACKER) Pathologist [facility] Trop T hs <6 <=14 ng/L Comment: Interpretive Data For further hscTnT resources including the diagnostic algorithm and an aid in interpretation, copy and paste this link: https://nrl.[employer].org/show/hsTrop Current Interpretive Data last revised 2020. Blood 10/26/2024 3:34 PM BANDOLEER PACKER 10/26/2024 3:37 PM BANDOLEER PACKER Mac Dexter MD LAB BLOOD ORDERABLES Final R esult [facility] ([place]) [address] [facility] [place] [address] * eGFR (10/26/2024 3:34 PM BANDOLEER PACKER) Pathologist [facility] eGFR >90 >=60 mL/min/1. 73 m2 [...] last reviewed 2021. Blood 10/26/2024 3:34 PM BANDOLEER PACKER 10/26/2024 3:37 PM BANDOLEER PACKER us Mac Dexter MD LAB BLOOD ORDERABLES Final R esult [facility] ([place]) [address] [facility] Department [place] [address] * Differential, auto (10/26/2024 3:34 PM BANDOLEER PACKER) Neutrophil abs 4.7 1.5 - 6.5 K/cumm Imm gran abs 0.0 0.0 - 0.1 K/cumm [facility] ([place]) Lymphocyte abs 3.3 0.8 - 3.3 K/cumm [facility] ([place]) Monocyte abs 0.6 0.2 - [...] revised on 2018. Blood 10/26/2024 3:34 PM BANDOLEER PACKER 10/26/2024 3:37 PM BANDOLEER PACKER Mac Dexter MD LAB BLOOD ORDERABLES Final R esult [facility] ([place]) [address] [facility] Department [place] [address] * CBC with auto differential (10/26/2024 3:34 PM BANDOLEER PACKER) WBC 8.8 3.8 - 9.9 K/cumm Hgb [...] [facility] ([place]) Blood 10/26/2024 3:34 PM BANDOLEER PACKER 10/26/2024 3:37 PM BANDOLEER PACKER Mac Dexter MD LAB BLOOD ORDERABLES Final R esult [facility] ([place]) [address] [facility] Department [place] [address] * Comprehensive metabolic panel (10/26/2024 3:34 PM BANDOLEER PACKER) Sodium 137 135 - 145 mmol/L Potassium, [...] [facility] ([place]) Blood 10/26/2024 3:34 PM BANDOLEER PACKER 10/26/2024 3:37 PM BANDOLEER PACKER Mac Dexter MD LAB BLOOD ORDERABLES Final R esult [facility] ([place]) [address] [facility] [place] [address] * ECG 12 lead (10/26/2024 2:31 PM BANDOLEER PACKER) 10/26/2024 2:31 PM BANDOLEER PACKER Narrative [facility] - 10/26/2024 5:21 PM BANDOLEER PACKER Vent Rate: 93 bpm RR Interval: 645 msec AL Interval: 156 msec QRS Duration: 89 msec QT Interval: 350 msec QTC Interval: 400 msec P-R-T [place]: 65 - 110 - 48 degrees IMPRESSION: SINUS RHYTHM POSSIBLE RIGHT VENTRICULAR HYPERTROPHY ??[SOME/ALL OF: PROMINENT R IN V1, LATE TRANSITION, RAD, YARIEL, SSS] SEPTAL MYOCARDIAL INFARCTION , PROBABLY OLD [40+ ms Q WAVE IN V1/V2] ABNORMAL ECG NO CHANGE FROM PREVIOUS TRACING NOTED Electronically Signed By: Armani Douglas MD Mac Dexter MD ECG ORDERABLES Final Result Performing Organization Address [facility] de Phone Number [facility] [employer] [facility] * ECG 12 lead (10/26/2024 8:50 AM BANDOLEER PACKER) 10/26/2024 8:50 AM BANDOLEER PACKER Narrative [facility] - 10/26/2024 12:00 PM BANDOLEER PACKER Vent Rate: 88 bpm RR Interval: 678 msec AL Interval: 141 msec QRS Duration: 86 msec QT Interval: 320 msec QTC Interval: 366 msec P-R-T [place]: -5 - 92 - 48 degrees IMPRESSION: SINUS RHYTHM BORDERLINE RIGHT AXIS DEVIATION ??[QRS AXIS > 90] SEPTAL MYOCARDIAL INFARCTION , OF INDETERMINATE AGE [40+ ms Q WAVE IN V1/V2] ABNORMAL ECG Electronically Signed By: Armani Douglas MD Bia Cast MD ECG ORDERABLES Final Res ult Performing Organization Address [facility] de Phone Number [facility] [employer] [facility] * SCAN - RADIOLOGY/IMAGING (10/06/2024) Anatomical Region Laterality Modality Other Provider Scanning Final Result * Imaging SI Joint Injection Left ([id number]) (09/03/2024 10:00 AM CDT) Narrative [email or web address] - 09/03/2024 10:01 AM CDT The images from this study are not interpreted by Radiology. ??Please refer to the physician's procedure / OR operative note. us Olga Kathleen MD IMG PAIN MGMT PROCEDURES Final Result Performing Organization Address [facility] Co de Phone Number [email or web address] * Pap, reflex HPV (02/16/2024 3:25 PM CDT) CLINICAL INFORMATION: Arsenio Hwang Comment:None given LMP Arsenio Hwang Comment:ABLATION Previous Pap Arsenio Hwang Comment:None given Prev. Bx Arsenio Hwang Comment:None given SOURCE: Arsenio Hwang Comment:Cervix, Endocervix Pap, specimen adequacy Arsenio Hwang Comment: Satisfactory for evaluation. Endocervical/transformation zone component present. HPV interp Arsenio Hwang Comment: Cytology Results: Negative for intraepithelial lesion or malignancy. COMMENTS Arsenio Hwang Comment: This Pap test has been evaluated with computer assisted technology. Music Agent [facility] st Philip Hwang Comment: BKA, CT(ASCP) CT screening location: [place] [address] [address] [place] [address] Comment Arsenio Hwang Comment: EXPLANATORY NOTE: The Pap is [...] 3:25 PM CDT 02/17/2024 3:06 AM CDT us Tony Washington MD LAB CYTOLOGY ORDERABLES Fi nal Result [place] [address] [address] [place] [address] * COLONOSCOPY (03/27/2021 11:21 AM CDT) Anatomical Region Laterality Modality Other Narrative Procedure Note Manuel Tanner MD - 03/27/2021 11:21 AM CDT [facility] Patient Name: Finesse Ramirez Procedure Date: 03/27/2021 11:21 AM Date of : 1970 Admit Type: Outpatient Age: 51 Gender: Female Attending MD: Manuel Tanner M.D. Room: [facility] ENDOSCOPY ROOM 1 Note Status: [...] under direct vision. The Pediatric Colonoscope [id number]-H190L [id number] was introducedthrough the anus and advanced to [...] 11:21 AM Procedure Code(s): --- Professional --- 09009, Colonoscopy, flexible; diagnostic, including collection of specimen(s) by brushing or washing, when performed (separateprocedure) Diagnosis Code(s): --- Professional --- Z12.11, Encounter for screening for malignant neoplasm of colon K64.8, Other hemorrhoids K57.30, Diverticulosis of large intestine without perforation orabscess without bleeding CPT copyright 2019 [employer]. All rights reserved. The codes documented in this report are preliminary and upon medical record coder reviewmay be revised to meet current compliance requirements. Recognized by the [employer] for promoting quality in endoscopy us Manuel Tanner MD ENDOSCOPY PROCEDURES Final Result * SCREENING MAMMOGRAM BILATERAL W RADHA (01/01/2021 8:09 AM BANDOLEER PACKER) Anatomical Region Laterality Modality Breast Bilateral Mammography 01/01/2021 8:48 AM BANDOLEER PACKER Impressions 01/01/2021 9:24 AM BANDOLEER PACKER There is no mammographic evidence of malignancy. A 1 year screening mammogram is recommended. BI-RADS: 1 - Negative. The patient will be entered into a reminder system with a target due date of 1 year for her next mammogram. Electronically signed by: Rosalia Church MD Narrative 01/01/2021 9:24 AM BANDOLEER PACKER EXAMINATION: SCREENING MAMMOGRAM BILATERAL W RADHA ORDERING [...] Most Recently Relevant to [place] [address] [place] [address] [place] [address] [employer] [place] [employer] OOS [employer] OOS Advance Directives For more information, please contact: [phone] * Full Code (Latest Code Status on File) Date Activated Date Inactivated Comments 03/12/2023 10:30 AM 03/12/2023 3:15 PM * Full Code Date Activated Date Inactivated Comments 03/27/2021 11:43 AM 03/27/2021 5:47 PM Care Teams Ergonomics Technician Relationship Specialty Start Date End Date Laureano Lantigua MD [address] [place], [place] [address] [address] PCP - General Internal Medicine 07/30/18 Tony Washington MD [address] [place] [address] [address] [place] [address] Regulatory Compliance Coordinator Obstetrics and Gynecology 11/16/18 Anahy Rosales MD [address] [place] [address] [address] [place] [address] Referring Physician Psychiatry 11/16/18 Nathalia Rodas, PT Physical Therapist Physical Therapy 02/14/23
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
--- OUTSIDE RECORDS SUMMARY | 2024-11-15 03:22 | XMS_ITS | Encounter Summary ---
Author Organization [facility] Healthcare Address [address] [place] [address] Care Team Providers Care Batch Heat Treat Operator Name Role Phone Laureano Lantigua MD Primary Care Provider [phone] Tony Washington MD Unavailable [phone] Anahy Rosales MD Unavailable [phone] Nathalia Rodas PT Unavailable Unavailable Reason for Visit * Reason Onset Date Comments Medication Request 03/17/2024 Encounter Details Date Type Department Care Team (Late st Contact Info) Description 03/17/2024 Telephone [facility] [address] [place] [id number] Laureano Lantigua MD [address] [facility] [address] [place] [address] Medication Request Social History Tobacco Use Types Packs/Day [...] on file Legal Sex Female 1:37 AM EX CHEF Gender Identity Female 10/03/2023 10:05 AM EX CHEF Sexual Orientation Straight 10/03/2023 10 :05 AM EX CHEF documented as of this encounter Ordered Prescriptions Prescription Sig Dispense Quantity Refills Last Filled Start Date End Date meloxicam (MOBIC) 15 mg tablet Take 1 tablet (15 mg total) by mouth daily 30 tablet 03/17/2024 05/06/2024 documented in this encounter Miscellaneous Notes * Telephone Encounter - Neftali Chavez RN - 03/17/2024 3:40 PM CDT Spoke to pt et informed of below TLQ message Pt voices understand et is agreeable to below RX Below Rx [facility] Pt voices understand et has no further questions @ this time * Telephone Encounter - Laureano Lantigua MD - 03/17/2024 2:47 PM CDT She can take mobic 15 mg po qday instead of tylenol and ibuprofen * Telephone Encounter - Debbie Villalba - 03/17/2024 12:12 PM CDT Patient calling to state that she discussed with Dr. CHING on 02/05 about getting pain medication. She has been taking 3 ibuprofen and 1 tylenol but she's not supposed to be taking ibuprofen due to previous stomach surgery and that medication combo doesn't seem to be helping the pain. Pt was wondering if she could get something prescribed for pain medication. Please advise Pt cbn: [phone] [facility] [place] documented in this encounter Plan of Treatment Not on file documented as of this encounter Visit Diagnoses Not on filedocumented in this encounter Care Teams Batch Heat Treat Operator Relationship Specialty Start Date End Date Laureano Lantigua MD [address] [place] [address] PCP - General Internal Medicine 07/30/18 Tony Washington MD [address] [place] [address] [address] [place] [address] Diesel Dinkey Operator Obstetrics and Gynecology 11/16/18 Anahy Rosales MD [address] [place] [address] [address] [place] [address] Referring Physician Psychiatry 11/16/18 Nathalia Rodas, PT Physical Therapist Physical Therapy 02/14/23 documented as of this encounter
--- OUTSIDE RECORDS SUMMARY | 2024-11-15 03:22 | XMS_ITS | Encounter Summary ---
Author Organization [facility] Healthcare Address [address] [place] [address] Care Team Providers Care Vertical Punch Operator Name Role Phone Laureano Lantigua MD Primary Care Provider [phone] Tony Washington MD Unavailable [phone] Anahy Rosales MD Unavailable [phone] Nathalia Rodas PT Unavailable Unavailable Reason for Referral * MRI/CAT/PET Scan (Routine) - Closed Specialty Diagnoses / Procedures Referred By Contac t Referred To Contact Radiology Diagnoses Lumbar radiculopathy Lumbar back pain History of spinal fusion Procedures CT Post Myelogram Lumbar Juan José Kapoor MD [address] [facility] [place] [address] Phone: tel: fax: [address] [phone] Referral ID Status Reason Start Date Expiration Date Visits Re quested Visits Authorized [id number] Closed 03/10/2024 04/09/2025 1 1 Reason for Visit * MRI/CAT/PET Scan (Routine) - Closed Specialty Diagnoses / Procedures Referred By Contac t Referred To Contact Radiology Diagnoses Lumbar radiculopathy Lumbar back pain History of spinal fusion Procedures CT Post Myelogram Lumbar Juan José Kapoor MD [address] [place] [address] Phone: tel: fax: [address] [phone] Referral ID Status Reason Start Date Expiration Date Visits Re quested Visits Authorized [id number] Closed 03/10/2024 04/09/2025 1 1 Encounter Details Date Type Department Care Team (Latest Contact Info) Description 03/19/2024 8:45 AM CDT - 03/19/2024 11:59 PM CDT Hospital Encounter [facility] [address] [place] [address] Juan José Kapoor MD [address] [place] [address] Lumbar radiculopathy; Lumbar back pain; History of spinal fusion Discharge Disposition: Discharge to home or self [...] on file Legal Sex Female 1:37 AM VETERINARY PRACTITIONER Gender Identity Female 10/03/2023 10:05 AM VETERINARY PRACTITIONER Sexual Orientation Straight 10/03/2023 10 :05 AM VETERINARY PRACTITIONER documented as of this encounter Medications at [...] total) by mouth daily 30 tablet 03/17/2024 4 progesterone (PROMETRIUM) 200 mg capsuleIndications: Symptomatic menopausal or female climacteric states One pill vaginally every night for 12 days every 3 months 12 capsule 3 02/16/2024 4 documented as of this encounter Discharge Disposition Disposition Code Departure Means Destination Discharge to home or self care documented in this encounter Miscellaneous Notes * Result Encounter Note - Juan José Kapoor MD - 03/19/2024 11:59 PM CDT Result Review CT myelogram of the lumbar spine obtained on March 19, 2024 was reviewed. This demonstrates evidence of a posterior spinal fusion with instrumentation and transforaminal lumbar interbody fusion at L5-S1. The fusion appears solid. The conus medullaris terminates the level of L1. At L1-L2, there is a mild diffuse disc bulge. There is mild spinal canal stenosis. At L2-L3, there is a mild diffuse disc bulge. There is mild spinal canal stenosis. At L3-L4, there is a mild diffuse disc bulge. There is mild spinal canal stenosis and mild right lateral recess stenosis. At L4-L5, there is a mild diffuse disc bulge. There is moderate facet arthropathy. There is ligamentum flavum hypertrophy. There is moderate spinal canal stenosis. At L5-S1, surgery has been performed. There is no significant stenosis. Given these findings, I suspect that the patient's symptoms are due to a combination of lumbar spinal stenosis at L4-L5 (and to a lesser degree at L3- L4), sequelae of her prior lumbar spine surgery, and intrinsic left hip pathology. Although surgery consisting of a revision posterior spinal fusion w ith instrumentation from L4 or potentially from L3 to the sacrum with a decompression from L4 or potentially from L3 to L5 could be considered to address the lumbar spinal stenosis, it is unlikely that surgery would help resolve all of the patient's issues. Alternatives to surgery would include nono perative treatments such as physical therapy and epidural steroid injections focusing on the L4-L5 level. Juan José Kapoor M.D., M.S. Neil Prince and Luz Conner Distinguished Professor of Orthopaedic Surgery Professor of Neurological Surgery Vice-Chair of Clinical Affairs Department of Orthopaedic Surgery [facility] [employer] [place], [place] ?? Photolith Operator done by [employer]. ??Photolith Operator variances may occur. documented in this encounter Plan of Treatment Not on file documented as of this encounter Procedures Procedure Name Priority Date/Time Associated Diagnosis Comments CT MYELOGRAM LUMBAR Schedule Routine, Read Routine (OP Routine) 03/19/2024 9:57 AM CDT Lumbar radiculopathy Lumbar back pain History of spinal fusion documented in this encounter Results * CT Post Myelogram Lumbar (03/19/2024 9:57 AM CDT) Anatomical Region Laterality Modality Spine N/A Computed Tomogra phy 03/19/2024 11:4 8 AM CDT Impressions 03/19/2024 1:39 PM CDT Post surgical changes of L5-S1 posterior spinal fusion, without radiographic complication. 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 Otherwise, no high-grade spinal canal or neuroforaminal narrowing within the lumbar spine. Dictated by: Raúl Wright MD The radiology attending physician has personally reviewed this study, and had reviewed and/or edited this written report and agrees with it. Electronically signed by: Bernardo Giang MD, PHD Narrative 03/19/2024 1:39 PM CDT EXAMINATION: Lumbar myelogram and post myelogram CT [...] fluoroscopic guidance, a 22 gauge 3.5 inch ??Quincke spinal needle was inserted into the thecal [...] stenosis. There is no spinal canal stenosis. Procedure Note Bernardo Giang MD PhD - 03/19/2024 EXAMINATION: Lumbar myelogram and post myelogram CT [...] or neuroforaminal narrowing within the lumbar spine. Dictated by: Raúl Wright MD The radiology attending physician has personally reviewed this study, and had reviewed and/or edited this written report and agrees with it. Electronically signed by: Bernardo Giang MD, PHD Juan José Kapoor MD IMG CT PROCEDURES Abril l Result documented in this encounter Visit Diagnoses Diagnosis Lumbar radiculopathy Thoracic or lumbosacral neuritis or radiculitis, unspecified Lumbar back pain Lumbago History of spinal fusion documented in this encounter Care Teams Vertical Punch Operator Relationship Specialty Start Date End Date Laureano Lantigua MD [address] [place] [address] PCP - General Internal Medicine 07/30/18 Tony Washington MD [address] [place] [address] [place] [address] Zipper Cutter Obstetrics and Gynecology 11/16/18 Anahy Rosales MD [address] [place] [address] [place] [address] Referring Physician Psychiatry 11/16/18 Nathlaia Rodas, PT Physical Therapist Physical Therapy 02/14/23 documented as of this encounter
--- OUTSIDE RECORDS SUMMARY | 2024-11-15 03:22 | XMS_ITS | Encounter Summary ---
Author Organization [facility] Healthcare Address [address] [place] [address] Care Team Providers Care Operating Theatre Technician Name Role Phone Laureano Lantigua MD Primary Care Provider [phone] Tony Washington MD Unavailable [phone] Anahy Rosales MD Unavailable [phone] Nathalia Rodas PT Unavailable Unavailable Reason for Visit * Reason Comments PT Treatment * Consultation (Routine) - Authorized Specialty Diagnoses / Procedures Referred By Jesse t Referred To Contact Physical Therapy Diagnoses Lumbar radiculopathy History of spinal fusion Jesu Theodore MD [address] [place] [address] Phone: tel: fax: [facility] [employer] [place] [address] [place] [phone] Phone: tel: fax: Referral ID Status Reason Start Date Expiration Date Visits Requested Visits Authorized [id number] Authorized Evaluate and Treat 03/23/2024 04/22/2025 24 31 Encounter Details Date Type Department Care Team (Late st Contact Info) Description 03/30/2024 7:00 AM CDT Therapy [facility] [place] [address] Nathalia Rodas, PT Lumbar radiculopathy (Primary Dx); [...] on file Legal Sex Female 1:37 AM INVENTORY CONTROL/SHIPPING RECEIVING Gender Identity Female 10/03/2023 10:05 AM INVENTORY CONTROL/SHIPPING RECEIVING Sexual Orientation Straight 10/03/2023 10 :05 AM INVENTORY CONTROL/SHIPPING RECEIVING documented as of this encounter Progress Notes * Nathalia Rodas, PT - 03/30/2024 7:00 AM CDT PT Treatment 03/30/2024 Finesse Ramirez 1970 ICD-10-CM 1. Lumbar radiculopathy M54.16 2. History of spinal fusion Z98.1 3. Left hip pain M25.552 Subjective: Patient reports she is having pain across lower back and along posterior hip. Radicular symptoms are going into mid thigh. Lateral covington and toes 3-5 feel numb but do not hurt. She is not feeling likeher prescribed meds are helping her pain levels and is tearful today. Objective: See treatment provided Treatment Provided: Gloria Dupont Manual STM along posterior hip Prone sacral mobs into nutation S/l gapping R side* Supine piriformis stretch Damon pose Cat/cow Supine butterfly stretch for adductors Gait training - using cane on R side HEP: Access Code: [email or web address] - Cat Cow [...] - 2 sets - 10 reps Assessment: Pt with fair tolerance to tx. Pt is sore with all movements but states it is a good pain with manual pressure in posterior hip. Significnat adductor tightness noted today with gentle stretching. Encouraged pt to perform gentle hip strengthening and hip/spine stretching for improved mobility. Plan: Continue progressing as tolerated. Add lumbar traction, side planks, quadruped. Time in: 702 Time out: 746 Nathalia Rodas PT, DPT, COMT documented in this encounter Plan of Treatment Not on file documented as of this encounter Visit Diagnoses Diagnosis Lumbar radiculopathy- Primary Thoracic or lumbosacral neuritis or radiculitis, unspecified History of spinal fusion Left hip pain Pain in joint, pelvic region and thigh documented in this encounter Care Teams Operating Theatre Technician Relationship Specialty Start Date End Date Laureano Lantigua MD [address] [place] [address] PCP - General Internal Medicine 07/30/18 Tony Washington MD [address] [facility] [address] [address] Fine Sander Obstetrics and Gynecology 11/16/18 Anahy Rosales MD [address] [facility] [place] [address] Referring Physician Psychiatry 11/16/18 Nathalia Rodas, PT Physical Therapist Physical Therapy 02/14/23 documented as of this encounter
--- OUTSIDE RECORDS SUMMARY | 2024-11-15 03:22 | XMS_ITS | Encounter Summary ---
Author Organization [facility] Healthcare Address [address] [place] [address] Care Team Providers Care Thread Weaver Name Role Phone Laureano Lantigua MD Primary Care Provider [phone] Tony Washington MD Unavailable [phone] Anahy Rosales MD Unavailable [phone] Nathalia Rodas PT Unavailable Unavailable Reason for Visit * Reason Comments PT Treatment PT Progress Note * Consultation (Routine) - Authorized Specialty Diagnoses / Procedures Referred By Contac t Referred To Contact Physical Therapy Diagnoses Lumbar radiculopathy History of spinal fusion Jesu Theodore MD [address] [place] [address] Phone: tel: fax: [facility] [employer] [place] [address] [place] [phone] Phone: tel: fax: Referral ID Status Reason Start Date Expiration Date Visits Requested Visits Authorized [id number] Authorized Evaluate and Treat 03/23/2024 04/22/2025 24 31 Encounter Details Date Type Department Care Team (Late st Contact Info) Description 06/07/2024 7:00 AM CDT Therapy [facility] Physical Therapy [place] [address] Nathalia Rodas, PT Lumbar radiculopathy (Primary Dx) Social History Tobacco Use Types [...] on file Legal Sex Female 1:37 AM SCALLOP RAKER Gender Identity Female 10/03/2023 10:05 AM SCALLOP RAKER Sexual Orientation Straight 10/03/2023 10 :05 AM SCALLOP RAKER documented as of this encounter Progress Notes * Nathalia Rodas, PT - 06/07/2024 7:00 AM CDT PT Treatment and PT Progress Note 06/07/2024 Finesse Rina Ashley 1970 ICD-10-CM 1. Lumbar radiculopathy M54.16 Subjective: Finesse rates current pain 10. She has nerve symptoms down to her toes today. She has been feeling significant knots all along posterior and lateral hips, but her main source of pain is in the groin and shooting down her leg. Objective: See treatment provided Impaired gait - noted decreased speed, fractured movements Lumbar AROM: flexion and extension WNL with no pain: rotation causes intense pain (+) sciatic nerve tension Treatment Provided: Clamshells red TB Bridges BKFO green TB Side plank lift 2x5* Firgure 4 piriformis stretch* Manual STM along posterior hip Quadratus lumborum STM Sidelying LE traction Prone sacral mobs into nutation* S/l gapping R side* Supine piriformis stretch* Damon pose Cat/cow Bear Plank 2sec hold x5* Squat* Side steps red loop* 2 hip abd green TB* Retro walk* Supine trunk rotation* Supine butterfly stretch for [...] - 2 sets - 10 reps Assessment: Finesse has been to a total of 11 physical therapy visits. Overall, she has progressed minimally toward goals. She continues to have increased radicular symptoms to teos and signficant groin and L lower back pain. SHe has been encouraged to follow up with either pain management or orthopedics for further follow up on pain relief. Plan: Follow up with pain management or ortho Time in: 704 Time out: 744 Nathalia Rodas PT, DPT, COMT documented in this encounter Plan of Treatment Not on file documented as of this encounter Visit Diagnoses Diagnosis Lumbar radiculopathy- Primary Thoracic or lumbosacral neuritis or radiculitis, unspecified documented in this encounter Care Teams Thread Weaver Relationship Specialty Start Date End Date Laureano Lantigua MD [address] [place] [address] PCP - General Internal Medicine 07/30/18 Tony Washington MD [address] [facility] [address] [place] [address] Supervisor Cook Room Obstetrics and Gynecology 11/16/18 Anahy Rosales MD [address] [place] [address] [address] [place] [address] Referring Physician Psychiatry 11/16/18 Nathalia Rodas, PT Physical Therapist Physical Therapy 02/14/23 documented as of this encounter
--- OUTSIDE RECORDS SUMMARY | 2024-11-15 03:22 | XMS_ITS | Encounter Summary ---
Author Organization [facility] Address [address] [place] [address] Care Team Providers Care Motion Picture Camera Operator Name Role Phone Laureano Lantigua MD Primary Care Provider [phone] Tony Washington MD Unavailable [phone] Anahy Rosales MD Unavailable [phone] Nathalia Rodas PT Unavailable Unavailable Reason for Visit * Reason Comments PT Treatment * Consultation (Routine) - Authorized Specialty Diagnoses / Procedures Referred By Jesse t Referred To Contact Physical Therapy Diagnoses Lumbar radiculopathy History of spinal fusion Jesu Theodore MD [address] [place] [address] Phone: tel: fax: [facility] [employer] [place] [address] [place] [phone] Phone: tel: fax: Referral ID Status Reason Start Date Expiration Date Visits Requested Visits Authorized [id number] Authorized Evaluate and Treat 03/23/2024 04/22/2025 24 31 Encounter Details Date Type Department Care Team (Late st Contact Info) Description 04/15/2024 7:00 AM CDT Therapy [facility] [place] [address] Nathalia Rodas, PT Lumbar radiculopathy (Primary Dx); [...] on file Legal Sex Female 1:37 AM SOCK AND STOCKING IRONER Gender Identity Female 10/03/2023 10:05 AM SOCK AND STOCKING IRONER Sexual Orientation Straight 10/03/2023 10 :05 AM SOCK AND STOCKING IRONER documented as of this encounter Progress Notes * Nathalia Rodas, PT - 04/15/2024 7:00 AM CDT PT Treatment 04/15/2024 Finesse Ramirez 1970 ICD-10-CM 1. Lumbar radiculopathy M54.16 2. History of spinal fusion Z98.1 3. Left hip pain M25.552 Subjective: Patient stayed in bed for 3 days over the weekend. She is having pain in her L posterior hip today but felt pretty good yesterday, walking mostly without a limp. Objective: See treatment provided Treatment Provided: Clamshells Bridges BKFO green TB Side plank lift x5 Firgure 4 piriformis stretch Manual STM along posterior hip Quadratus lumborum STM Sidelying LE traction Prone sacral mobs into nutation* S/l gapping R side Supine piriformis stretch* Damon pose Cat/cow* Supine butterfly stretch for adductors Gait training - using cane on R side* IFC lower back/hip HEP: Access Code: [email or web address] - Cat Cow [...] reps Assessment: Pt with fair tolerance to treatment today without increase in symptoms. Improved gait pattern without cane noted today. Plan: Continue progressing as tolerated. Add lumbar traction, side planks, quadruped. Time in: 706 Time out: 0750 Nathalia Rodas PT, DPT, COMT documented in this encounter Plan of Treatment Not on file documented as of this encounter Visit Diagnoses Diagnosis Lumbar radiculopathy- Primary Thoracic or lumbosacral neuritis or radiculitis, unspecified History of spinal fusion Left hip pain Pain in joint, pelvic region and thigh documented in this encounter Care Teams Motion Picture Camera Operator Relationship Specialty Start Date End Date Laureano Lantigua MD [address] [place] [address] PCP - General Internal Medicine 07/30/18 Tony Washington MD [address] [place] [address] [address] [place] [address] Sales Agent Obstetrics and Gynecology 11/16/18 Anahy Rosales MD [address] [place] [address] [place] [address] Referring Physician Psychiatry 11/16/18 Nathalia Rodas PT Physical Therapist Physical Therapy 02/14/23 documented as of this encounter
--- OUTSIDE RECORDS SUMMARY | 2024-11-15 03:22 | XMS_ITS | Encounter Summary ---
Author Organization [facility] Healthcare Address [address] [place] [address] Care Team Providers Care Flotation Operator Name Role Phone Laureano Lantigua MD Primary Care Provider [phone] Tony Washington MD Unavailable [phone] Anahy Rosales MD Unavailable [phone] Nathalia Rodas PT Unavailable Unavailable Reason for Referral * Diagnostic Imaging (Routine) - Closed Specialty Diagnoses / Procedures Referred By Jesse t Referred To Contact Diagnoses Left hip pain Orthopedic aftercare Procedures XR Hip Left 2 or 3 Views W Pelvis Cecilia Conn MD [address] [facility] [place] [address] Phone: tel: fax: [facility] [place] [place] Radiology [address] [facility] [address] [place] [id number] Phone: tel: Referral ID Status Reason Start Date Expiration Date Visits Re quested Visits Authorized [id number] Closed 06/22/2024 07/22/2025 1 1 Reason for Visit * Diagnostic Imaging (Routine) - Closed Specialty Diagnoses / Procedures Referred By Contac t Referred To Contact Diagnoses Left hip pain Orthopedic aftercare Procedures XR Hip Left 2 or 3 Views W Pelvis Cecilia Conn MD [address] [facility] [place] [address] Phone: tel: fax: [facility] [address] [facility] [address] [place] [address] Phone: tel: Referral ID Status Reason Start Date Expiration Date Visits Re quested Visits Authorized [id number] Closed 06/22/2024 07/22/2025 1 1 Encounter Details Date Type Department Care Team (Latest Contact Info) Description 06/30/2024 1:15 PM CDT - 06/30/2024 11:59 PM CDT Hospital Encounter [id number] [address] [facility] [address] [place] [phone] Left hip pain; Orthopedic aftercare Discharge Disposition: Discharge to home or self [...] on file Legal Sex Female 1:37 AM BUYERS' AGENT Gender Identity Female 10/03/2023 10:05 AM BUYERS' AGENT Sexual Orientation Straight 10/03/2023 10 :05 AM BUYERS' AGENT documented as of this encounter Medications at [...] Name Priority Date/Time Associated Diagnosis Comments XR HIP LEFT W PELVIS 2 OR 3 VIEWS Schedule Routine, Read Routine (OP Routine) 06/30/2024 1:57 PM CDT Left hip pain Orthopedic aftercare documented in this encounter Results * XR Hip Left 2 or 3 Views W Pelvis (06/30/2024 1:57 PM CDT) Anatomical Region Laterality Modality Lower Extremities, Hip, Pelvis Left C omputed Radiography 06/30/2024 2:05 PM CDT Impressions 06/30/2024 2:05 PM CDT 1. ??Normal left hip joint space. ??No acute osseous abnormality. Electronically signed by: Dereck Perez D.O. Narrative 06/30/2024 2:05 PM CDT EXAMINATION: XR HIP LEFT 2 OR 3 VIEWS W PELVIS HISTORY: ??Left hip pain FINDINGS: 2 views of the left hip were obtained with comparison 11/18/2023. There is no fracture or dislocation. ??The bilateral hip joint spaces are preserved. ??There is partially visualized posterior spinal fusion hardware. Procedure Note Dereck Perez, DO - 06/30/2024 EXAMINATION: XR HIP LEFT 2 OR 3 VIEWS W PELVIS HISTORY: Left hip pain FINDINGS: 2 views of the left hip were obtained with comparison 11/18/2023. There is no fracture or dislocation. The bilateral hip joint spaces are preserved. There is partially visualized posterior spinal fusion hardware. IMPRESSION: 1. Normal left hip joint space. No acute osseous abnormality. Electronically signed by: Dereck Perez D.O. Cecilia Ruggiero MD IMG XR PROCEDURES Fin al Result documented in this encounter Visit Diagnoses Diagnosis Left hip pain Pain in joint, pelvic region and thigh Orthopedic aftercare Unspecified orthopedic aftercare documented in this encounter Care Teams Flotation Operator Relationship Specialty Start Date End Date Laureano Lantigua MD [address] [place] [address] PCP - General Internal Medicine 07/30/18 Tony Washington MD [address] [place] [address] [address] [place] [address] Lactation Nurse Obstetrics and Gynecology 11/16/18 Anahy Rosales MD [address] [place] [address] [address] [place] [address] Referring Physician Psychiatry 11/16/18 Nathalia Rodas, PT Physical Therapist Physical Therapy 02/14/23 documented as of this encounter
--- OUTSIDE RECORDS SUMMARY | 2024-11-15 03:22 | XMS_ITS | Encounter Summary ---
Author Organization [facility] Address [address] [place] [address] Phone Care Team Providers Care Gun Striper Name Role Phone Laureano Lantigua MD Primary Care Provider [phone] Tony Washington MD Unavailable [phone] Anahy Rosales MD Unavailable Nathalia Rodas PT Unavailable Unavailable Encounter Details Date Type Department Care Team (Late st Contact Info) Description 06/30/2024 Orders Only [facility] Orthopaedic Surgery [address] [facility] [address] [place] [address] Cecilia Conn MD [address] [facility] [address] [place] [address] Lumbar radiculopathy (Primary Dx); Lumbar back pain [...] on file Legal Sex Female 1:37 AM IRB COMPLIANCE COORDINATOR Gender Identity Female 10/03/2023 10:05 AM IRB COMPLIANCE COORDINATOR Sexual Orientation Straight 10/03/2023 10 :05 AM IRB COMPLIANCE COORDINATOR documented as of this encounter Plan of Treatment Not on file documented as of this encounter Visit Diagnoses Diagnosis Lumbar radiculopathy- Primary Thoracic or lumbosacral neuritis or radiculitis, unspecified Lumbar back pain Lumbago documented in this encounter Care Teams Gun Striper Relationship Specialty Start Date End Date Laureano Lantigua MD [address] [place] [address] PCP - General Internal Medicine 07/30/18 Tony Washington MD [address] [place] [address] [address] [place] [address] Printer Operator Obstetrics and Gynecology 11/16/18 Anahy Rosales MD [address] [facility] [address] [place] [address] Referring Physician Psychiatry 11/16/18 Nathalia Rodas, PT Physical Therapist Physical Therapy 02/14/23 documented as of this encounter
--- OUTSIDE RECORDS SUMMARY | 2024-11-15 03:22 | XMS_ITS | Encounter Summary ---
Author Organization [facility] Healthcare Address [address] [place] [address] Care Team Providers Care Parent Trainer Name Role Phone Laureano Lantigua MD Primary Care Provider [phone] Tony Washington MD Unavailable [phone] Anahy Rosales MD Unavailable [phone] Nathalia Rodas PT Unavailable Unavailable Encounter Details Date Type Department Care Team (Latest Contact Info) Description 03/10/2024 1:00 PM CDT - 03/10/2024 11:59 PM CDT Hospital Encounter [facility] [address] [facility] [address] [place] [id number] Lumbar radiculopathy Discharge Disposition: Discharge to home or self [...] on file Legal Sex Female 1:37 AM PHYSICAL THERAPIST CENTER MANAGER Gender Identity Female 10/03/2023 10:05 AM PHYSICAL THERAPIST CENTER MANAGER Sexual Orientation Straight 10/03/2023 10 :05 AM PHYSICAL THERAPIST CENTER MANAGER documented as of this encounter Medications at [...] every 3 months 12 capsule 3 02/16/2024 documented as of this encounter Discharge Disposition Disposition Code Departure Means Destination Discharge to home or self care documented in this encounter Plan of Treatment Not on file documented as of this encounter Procedures Procedure Name Priority Date/Time Associated Diagnosis Comments XR SPINE LUMBAR COMPLETE 4 OR MORE VIEWS Schedule Routine, Read Routine (OP Routine) 03/10/2024 1:19 PM CDT Lumbar radiculopathy documented in this encounter Results * XR Spine Lumbar Complete 4 View (03/10/2024 1:19 PM CDT) Anatomical Region Laterality Modality Spine N/A Computed Radiogr aphy 03/10/2024 2:16 PM CDT Impressions 03/10/2024 2:16 PM CDT Unchanged combined posterior and interbody fusion at L5-S1 without hardware complication. Electronically signed by: Kev Ríos MD Narrative 03/10/2024 2:16 PM CDT EXAMINATION: XR SPINE LUMBAR 4 OR MORE VIEWS HISTORY: s/p fusion with new pain VIEWS: 4 views of the lumbar spine MRI 02/24/2024 COMPARISON: Radiographs 07/15/2017 and MRI 02/24/2024 FINDINGS: Postsurgical changes of combined combined posterior and interbody fusion at L5-S1 with rods and pedicle screws. ??The hardware is intact and in unchanged position. ??Intervertebral disc spaces at the nonfused levels are preserved. ??Vertebral body heights are normal. No fracture. ??No listhesis or abnormal motion of the fused segments with bending. Procedure Note Kev Ríos MD - 03/10/2024 EXAMINATION: XR SPINE LUMBAR 4 OR MORE VIEWS HISTORY: s/p fusion with new pain VIEWS: 4 views of the lumbar spine MRI 02/24/2024 COMPARISON: Radiographs 07/15/2017 and MRI 02/24/2024 FINDINGS: Postsurgical changes of combined combined posterior and interbody fusion at L5-S1 with rods and pedicle screws. The hardware is intact and in unchanged position. Intervertebral disc spaces at the nonfused levels are preserved. Vertebral body heights are normal. No fracture. No listhesis or abnormal motion of the fused segments with bending. IMPRESSION: Unchanged combined posterior and interbody fusion at L5-S1 without hardware complication. Electronically signed by: Kev Ríos MD Juan José Kapoor MD IMG XR PROCEDURES Abril l Result documented in this encounter Visit Diagnoses Diagnosis Lumbar radiculopathy Thoracic or lumbosacral neuritis or radiculitis, unspecified documented in this encounter Care Teams Parent Trainer Relationship Specialty Start Date End Date Laureano Lantigua MD [address] [place] [address] PCP - General Internal Medicine 07/30/18 Tony Washington MD [address] [place] [address] [address] [place] [address] Spinner Hydraulic Obstetrics and Gynecology 11/16/18 Anahy Rosales MD [address] [facility] [address] [place] [address] Referring Physician Psychiatry 11/16/18 Nathalia Rodas, PT Physical Therapist Physical Therapy 02/14/23 documented as of this encounter
--- OUTSIDE RECORDS SUMMARY | 2024-11-15 03:22 | XMS_ITS | Encounter Summary ---
Author Organization [facility] Healthcare Address [address] [place] [address] Care Team Providers Care Bumper Straightener Name Role Phone Laureaon Lantigua MD Primary Care Provider [phone] Tony Washington MD Unavailable Anahy Rosales MD Unavailable [phone] Nathalia Rodas PT Unavailable Unavailable Reason for Visit * Reason Comments PT Initial Eval * Consultation (Routine) - Authorized Specialty Diagnoses / Procedures Referred By Contac t Referred To Contact Physical Therapy Diagnoses Lumbar radiculopathy History of spinal fusion Jesu Theodore MD [address] [place] [address] Phone: tel: fax: [facility] [employer] [place] [address] [place] [phone] Phone: tel: fax: Referral ID Status Reason Start Date Expiration Date Visits Requested Visits Authorized [id number] Authorized Evaluate and Treat 03/23/2024 04/22/2025 24 31 Encounter Details Date Type Department Care Team (Late st Contact Info) Description 03/24/2024 7:00 AM CDT Therapy [facility] Physical Therapy - [place] [address] [place] [address] Nathalia Rodas, PT Lumbar radiculopathy; History of spinal fusion Social History Tobacco Use Types Packs/Day Years [...] on file Legal Sex Female 1:37 AM TUNNEL KILN FIRER Gender Identity Female 10/03/2023 10:05 AM TUNNEL KILN FIRER Sexual Orientation Straight 10/03/2023 10 :05 AM TUNNEL KILN FIRER documented as of this encounter Progress Notes * Nathalia Rodas, PT - 03/24/2024 7:00 AM CDT PT Initial Eval 03/24/2024 Finesse Flynn Pashea 1970 54 y.o. female Jesu Theodore MD [address] [place] [address] ICD-10-CM 1. Lumbar radiculopathy M54.16 Ambulatory referral order to Physical Therapy - 2. History of spinal fusion Z98.1 Ambulatory referral order to Physical Therapy - Subjective Chief Complaint: Pt c/o L sided low back pain that refers down the L LE. She also c/o central low back pain that feels like back labor and is pulsating. Pain will extand along posterior glute, lateral hip and into groin. She has L hip pain with a recent hx of L hip labral repair and osteochondroplasty 10/07/23. Pt uses a cane to walk through the day. 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 If she is on her feet with one night, she will be in bed all weekend. She has an active job where she is on her feet all day, which increases her symptoms. She is also c/o urinary incontinence and occasional bowel urgency. Aggravating Factors: walking, increased activity Alleviating Factors: rest Previous medical management: hx of multiple rounds of physical therapy; L5-S1 lumbar fusion, L hip labral repair and osteochondroplasty 10/07/23; CT myelogram 04/09; She is currently taking Meloxicam for pain, and she is also taking turmeric Function: Current Functional Level: She has to use a cane to walk in order to not be in significant pain. Sheneeds help getting into & out of bathtub & out of bed. She has increased pain with work duties. Patient Goals: decrease pain with activity Objective Modified Oswestry: 78% Observations: Standing: Posture: decreased weightbearing on R LE Gait:ambulates with cane in L hand with increased lean into cane Lumbar Flexion: 100% Lumbar Extension: 25% Lumbar Sidebend: 50% with pain bilaterally Supine: Hip/knee flexion: stretch on L side; no change in low back BKFO: no inc in pain SLR: Decompression: inc pain L lateral hip with gentle traction Manual Muscle Testing: Left Right Hip Abduction 4/5 5/5 Joint Assessment: hypomobile lumbar spine with CPA & UPA L1-5; tender to palpation along L transverse processes Palpation: TTP along L PSIS, posterior glute in multiple places Treatment Provided: Clamshells S/l gapping R side Supine piriformis stretch Damon pose Cat/cow Gait training - using can on R side HEP: Access Code: [email or web address] [...] weekly - 2 sets - 10 reps Assessment/Plan Assessment Impairments: abnormal coordination, abnormal or restricted ROM, weight-bearing intolerance, muscle length, abnormal gait, activity tolerance, impaired body mechanics, pain with function, endurance, impaired physical strength, lacks appropriate home exercise program, decreased mobility, impaired balance Assessment details: Ms. Ramirez is a 54 year old female who presents to the clinic with c/o chronic history of low back and L hip/LE pain. She demonstrates decreased hip ROM, pain with lumbar extension and side bend, and TTP along L transverse processes, L PSIS and posterior glute. She has decreasedhip abductor strength and ambulates with weight shift and use of cane. SHe will benefit from skilled physical therapy to address strength, flexibility, and improve gait pattern to decrease pain levels. Goals LTG 1:: Pt will be able to get out of bathtub without assistance. LTG 2:: Pt will ambulate without use of cane. LTG 3:: Patient will wake with pain levels 2/10 or less. LTG 4:: Pt will report MALIKA 50% or less to indicated improved functional ability. LTG 5:: Pt will be IND in HEP. Plan Start time: 0700 End time: 0800 Therapy options: will be seen for skilled therapy services Planned modality interventions: interferential current, thermotherapy (hydrocollator packs), cryotherapy Planned therapy interventions: abdominal trunk stabilization, therapeutic activities, neuromuscularre-education, transfer training, balance/weight-bearing training, functional ROM exercises, Kinesiotaping, gait training, manual therapy, body mechanics training, home exercise program Frequency: 2 x/week Duration in weeks: 4 weeks Discussed with: patient Future Treatment Plan: glute & hip abductor strengthening; planks, bridges, BKFO, side steps; manual treatment of posterior glutes and lumbar spine Nathalia Rodas PT, DPT, COMT documented in this encounter Plan of Treatment Not on file documented as of this encounter Visit Diagnoses Diagnosis Lumbar radiculopathy Thoracic or lumbosacral neuritis or radiculitis, unspecified History of spinal fusion documented in this encounter Orders Outpatient Referral Count Last Ordered Date st Ordered Date AMB REFERRAL ORDER TO PHYSICAL THERAPY 1 documented in this encounter Care Teams Bumper Straightener Relationship Specialty Start Date End Date Laureano Lantigua MD [address] [place] [address] PCP - General Internal Medicine 07/30/18 Tony Washington MD [address] [facility] [address] [place] [address] Sequins Spooler Obstetrics and Gynecology 11/16/18 Anahy Rosales MD [address] [facility] [address] [place] [address] Referring Physician Psychiatry 11/16/18 Nathalia Rodas, PT Physical Therapist Physical Therapy 02/14/23 documented as of this encounter
--- OUTSIDE RECORDS SUMMARY | 2024-11-15 03:22 | XMS_ITS | Encounter Summary ---
Author Organization [facility] Healthcare Address [address] [place] [address] Care Team Providers Care Career Technical Education Teacher Name Role Phone Laureano Lantigua MD Primary Care Provider [phone] Tony Washington MD Unavailable [phone] Anahy Rosales MD Unavailable [phone] Nathalia Rodas PT Unavailable Unavailable Encounter Details Date Type Department Care Team (Late st Contact Info) Description 03/24/2024 Plan of Care Documentation [facility] [place] [address] Social History Tobacco Use Types Packs/Day Years [...] on file Legal Sex Female 1:37 AM BAGGAGE AGENT Gender Identity Female 10/03/2023 10:05 AM BAGGAGE AGENT Sexual Orientation Straight 10/03/2023 10 :05 AM BAGGAGE AGENT documented as of this encounter Plan of Treatment Not on file documented as of this encounter Visit Diagnoses Not on filedocumented in this encounter Care Teams Career Technical Education Teacher Relationship Specialty Start Date End Date Laureano Lantigua MD [address] [facility] [address] PCP - General Internal Medicine 07/30/18 Tony Washington MD [address] [place] [address] [address] [place] [address] Belt Cleaner Obstetrics and Gynecology 11/16/18 Anahy Roslaes MD [address] [place] [address] [address] [place] [address] Referring Physician Psychiatry 11/16/18 Nathalia Rodas, HENRY Physical Therapist Physical Therapy 02/14/23 documented as of this encounter
--- OUTSIDE RECORDS SUMMARY | 2024-11-15 03:22 | XMS_ITS | Encounter Summary ---
Author Organization [facility] Healthcare Address [address] [place] [address] Care Team Providers Care Display Decorator Name Role Phone Laureano Lantigua MD Primary Care Provider + [phone] Tony Washington MD Unavailable [phone] Anahy Rosales MD Unavailable [phone] Nathalia Rodas PT Unavailable Unavailable Reason for Visit * Reason Onset Date Comments PA stopped 05/07/2024 Encounter Details Date Type Department Care Team (Late st Contact Info) Description 05/07/2024 Telephone [facility] [address] [place] [id number] Laureano Lantigua MD [address] [facility] [address] [place] [address] PA stopped Social History Tobacco Use Types Packs/Day Years [...] on file Legal Sex Female 1:37 AM MIRROR PAINTER Gender Identity Female 10/03/2023 10:05 AM MIRROR PAINTER Sexual Orientation Straight 10/03/2023 10 :05 AM MIRROR PAINTER documented as of this encounter Miscellaneous Notes * Telephone Encounter - Tatyana Akbar RN - 05/07/2024 4:01 PM CDT Pt aware that PA will not go thru-she needs to contact her insurance. Pt voices understanding. * Telephone Encounter - Sesar Jacques - 05/07/2024 3:52 PM CDT Rec a requesting for a PA on sucralfate (CARAFATE) suspension 1 gram/10 mL from Pharmacy and I wentto complete it on cover my meds and it stated: Please have the patient contact the member services number located on the back of their card. I'm not sure if it was denied or if it is not needed. Patient will need to contact insurance. documented in this encounter Plan of Treatment Not on file documented as of this encounter Visit Diagnoses Not on filedocumented in this encounter Care Teams Display Decorator Relationship Specialty Start Date End Date Laureano Lantigua MD [address] [place] [address] PCP - General Internal Medicine 07/30/18 Tony Washington MD [address] [place] [address] [address] [place] [address] Yeast Pusher Obstetrics and Gynecology 11/16/18 Anahy Rosales MD [address] [place] [address] [address] [place] [address] Referring Physician Psychiatry 11/16/18 Nathalia Rodas, PT Physical Therapist Physical Therapy 02/14/23 documented as of this encounter
--- OUTSIDE RECORDS SUMMARY | 2024-11-15 03:22 | XMS_ITS | Encounter Summary ---
Author Organization [facility] Address [address] [place] [address] Phone Care Team Providers Care Resource Coordinator Name Role Phone Laureano Lantigua MD Primary Care Provider [phone] Tony Washington MD Unavailable [phone] Anahy Rosales MD Unavailable [phone] Nathalia Rodas PT Unavailable Unavailable Reason for Referral * Consultation (Routine) - Pending Review Specialty Diagnoses / Procedures Referred By Contac t Referred To Contact Orthopedic Surgery Diagnoses Lumbar radiculopathy Lumbar back pain Cecilia Conn MD [address] [facility] [address] [place] [address] Phone: tel: fax: [facility] (All Locations) Referral ID Status Reason Start Date Expiration Date Visits Requested Visits Authorized [id number] Pending Review Specialty Services Required 07/13/2024 08/12/2025 1 1 Question Answer Please select the performing region: [facility] (All Locations) [167] # of visits: 1 Comments Low back pain. Requesting second opinion from provider other than Dr. Kapoor Encounter Details Date Type Department Care Team (Late st Contact Info) Description 07/13/2024 Orders Only [facility] Orthopaedic Surgery [address] [facility] [address] [place] [address] Cecilia Conn MD [address] [facility] [address] [place] [address] Lumbar radiculopathy (Primary Dx); Lumbar back pain [...] on file Legal Sex Female 1:37 AM SMOKING TOBACCO PACKER HAND Gender Identity Female 10/03/2023 10:05 AM SMOKING TOBACCO PACKER HAND Sexual Orientation Straight 10/03/2023 10 :05 AM SMOKING TOBACCO PACKER HAND documented as of this encounter Plan of Treatment Scheduled Referrals Name Type Priority Associated Diagnoses Order Schedule Ambulatory referral to Orthopedic Spine Outpatient Referral Routine Lumbar radiculopathy Lumbar back pain Expected: 07/27/2024 (Approximate), Expires: 07/13/2025 documented as of this encounter Visit Diagnoses Diagnosis Lumbar radiculopathy- Primary Thoracic or lumbosacral neuritis or radiculitis, unspecified Lumbar back pain Lumbago documented in this encounter Care Teams Resource Coordinator Relationship Specialty Start Date End Date Rhina, Laureano India, MD [address] [place] [address] PCP - General Internal Medicine 07/30/18 Tony Washington MD [address] [facility] [address] [place] [address] Nursing Technician Obstetrics and Gynecology 11/16/18 Anahy Rosales MD [address] [facility] [address] [place] [address] Referring Physician Psychiatry 11/16/18 Nathalia Rodas, PT Physical Therapist Physical Therapy 02/14/23 documented as of this encounter
--- OUTSIDE RECORDS SUMMARY | 2024-11-15 03:22 | XMS_ITS | Encounter Summary ---
Author Organization [facility] Address [address] [place] [address] Phone Care Team Providers Care Geothermal Hvac Technician Name Role Phone RhinaLaureano MD Primary Care Provider [phone] Tony Washington MD Unavailable [phone] Anahy Rosales MD Unavailable [phone] Nathalia Rodas PT Unavailable Unavailable Reason for Referral * Consultation (Routine) - Pending Review Specialty Diagnoses / Procedures Referred By Contac t Referred To Contact Pain Management Diagnoses Lumbar radiculopathy History of spinal fusion Dodie Theodore MD [address] [place] [address] Phone: tel: fax: Dodie Theodore MD [address] [place] [address] Phone: tel: fax: Referral ID Status Reason Start Date Expiration Date Visits Requested Visits Authorized [id number] Pending Review Specialty Services Required 03/23/2024 04/22/2025 1 1 Question Answer Please select the performing region: External Order [171] To provider: DODIE THEODORE [[id number]] # of visits: 1 Comments Referral for consideration of Lumbar JOANNA at L45 before considering additional surgery. Stefani Reyes RN, ONC Clinical Nurse Coordinator to Dr. Juan José Kapoor Department of Orthopedic Spine Surgery Visit: [email or web address] [phone] * Consultation (Routine) - Authorized Specialty Diagnoses / Procedures Referred By Jesse santana Referred To Contact Physical Therapy Diagnoses Lumbar radiculopathy History of spinal fusion Dodie Theodore MD [address] [place] [address] Phone: tel: fax: [address] [address] Phone: tel: fax: Referral ID Status Reason Start Date Expiration Date Visits Requested Visits Authorized [id number] Authorized Evaluate and Treat 03/23/2024 04/22/2025 24 31 Question Answer PTRFR PT Evaluate and Treat Reason for Visit Eval and treat for lumbar, core and LE strengthening and back pain with radiculopathy, Modalities PRN. Therapy options discussed with patient? Yes Location provided for therapy services is: Patient requested/Patient preferred Please select the performing region: External Order [171] To loc/pos [facility] [place][Note 2] [[id number]] # of visits: 24 Comments Patient wants to use [facility] Location. [facility] [address] [place] [address] Stefani Reyes RN, ONC Clinical Nurse Coordinator to Dr. Juan José Kapoor Department of Orthopedic Spine Surgery Visit: [email or web address] [phone] Encounter Details Date Type Department Care Team (Late st Contact Info) Description 03/23/2024 Orders Only [facility] Orthopaedic Surgery Counts include 234 beds at the [facility] 6th [place] [address] [place] [address] Juan José Kapoor MD [address] [facility] [address] [place] [address] Lumbar radiculopathy (Primary Dx); History of spinal fusion Social History Tobacco [...] on file Legal Sex Female 1:37 AM GLEASON GEAR GENERATOR Gender Identity Female 10/03/2023 10:05 AM GLEASON GEAR GENERATOR Sexual Orientation Straight 10/03/2023 10 :05 AM GLEASON GEAR GENERATOR documented as of this encounter Plan of Treatment Scheduled Referrals Name Type Priority Associated Diagnoses Order Schedule Ambulatory referral order to Physical Therapy - Outpatient Referral Routine Lumbar radiculopathy History of spinal fusion Expected: 03/30/2024 (Approximate), Expires: 03/23/2025 Ambulatory referral to Pain Management Outpatient Referral Routine Lumbar radiculopathy History of spinal fusion Expected: 04/06/2024 (Approximate), Expires: 03/23/2025 documented as of this encounter Visit Diagnoses Diagnosis Lumbar radiculopathy- Primary Thoracic or lumbosacral neuritis or radiculitis, unspecified History of spinal fusion documented in this encounter Care Teams Geothermal Hvac Technician Relationship Specialty Start Date End Date Laureano Lantigua MD [address] [place] [address] PCP - General Internal Medicine 07/30/18 Tony Washington MD [address] [facility] [address] [place] [address] Director Phone Obstetrics and Gynecology 11/16/18 Anahy Rosales MD [address] [facility] [address] [place] [address] Referring Physician Psychiatry 11/16/18 Nathalia Rodas, PT Physical Therapist Physical Therapy 02/14/23 documented as of this encounter
--- OUTSIDE RECORDS SUMMARY | 2024-11-15 03:22 | XMS_ITS | Encounter Summary ---
Author Organization [facility] Healthcare Address [address] [place] [address] Care Team Providers Care Bowling Ball Grader And Marker Name Role Phone Laureano Lantigua MD Primary Care Provider [phone] Tony Washington MD Unavailable [phone] Anahy Rosales MD Unavailable [phone] Nathalia Rodas PT Unavailable Unavailable Reason for Visit * Reason Comments PT Treatment * Consultation (Routine) - Authorized Specialty Diagnoses / Procedures Referred By Jesse t Referred To Contact Physical Therapy Diagnoses Lumbar radiculopathy History of spinal fusion Jesu Theodore MD [address] [place] [address] Phone: tel: fax: [facility] [employer] [place] [address] [place] [address] Phone: tel: fax: Referral ID Status Reason Start Date Expiration Date Visits Requested Visits Authorized [id number] Authorized Evaluate and Treat 03/23/2024 04/22/2025 24 31 Encounter Details Date Type Department Care Team (Late st Contact Info) Description 04/20/2024 7:00 AM CDT Therapy 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 Lumbar radiculopathy M54.16 2. History of spinal fusion Z98.1 3. Left hip pain M25.552 Subjective: Starting Friday, her leg was sore. Yesterday, she had increased pain in L hip was signficant, described as nerve pain. When she would walk, her leg would give out and not support her. Currently her Rhip is now starting to hurt. Objective: See treatment provided Treatment Provided: Clamshells Bridges BKFO green TB Side plank lift x5* Firgure 4 piriformis stretch* Manual STM along posterior hip Quadratus lumborum STM Sidelying LE traction Prone sacral mobs into nutation* S/l gapping R side Supine piriformis stretch* Damon pose Cat/cow Supine trunk rotation Supine butterfly stretch for adductors Gait training - using cane on R side* IFC lower back/hip* HEP: Access Code: [email or web address] [...] - 2 sets - 10 reps Assessment: Emphasis on STM at PSIS and glute strengthening. Added supine trunk rotation for lumbar stretch. Discussed standing tall to allow for improved core & glute engagement with ambulation. Plan: Continue progressing as tolerated. Add lumbar traction, side planks, quadruped. Time in: 709 Time out: 753 Nathalia Rodas PT, DPT, COMT documented in this encounter Plan of Treatment Not on file documented as of this encounter Visit Diagnoses Diagnosis Lumbar radiculopathy- Primary Thoracic or lumbosacral neuritis or radiculitis, unspecified History of spinal fusion Left hip pain Pain in joint, pelvic region and thigh documented in this encounter Care Teams Bowling Ball Grader And Marker Relationship Specialty Start Date End Date Laureano Lantigua MD [address] [place] [address] PCP - General Internal Medicine 07/30/18 Tony Washington MD [address] [place] [address] [place] [address] Animal Science Professor Obstetrics and Gynecology 11/16/18 Anahy Rosales MD [address] [place] [address] [place] [address] Referring Physician Psychiatry 11/16/18 Nathalia Rodas PT Physical Therapist Physical Therapy 02/14/23 documented as of this encounter
--- OUTSIDE RECORDS SUMMARY | 2024-11-15 03:22 | XMS_ITS | Encounter Summary ---
Author Organization [facility] Healthcare Address [address] [place] [address] Care Team Providers Care C Architect Name Role Phone Laureano Lantigua MD Primary Care Provider [phone] Tony Washington MD Unavailable [phone] Anahy Rosales MD Unavailable [phone] Nathalia Rodas PT Unavailable Unavailable Reason for Visit * Reason Comments PT Treatment * Consultation (Routine) - Authorized Specialty Diagnoses / Procedures Referred By Jesse t Referred To Contact Physical Therapy Diagnoses Lumbar radiculopathy History of spinal fusion Jesu Theodore MD [address] [place] [address] Phone: tel: fax: [facility] [employer] [place] [address] [place] [phone] Phone: tel: fax: Referral ID Status Reason Start Date Expiration Date Visits Requested Visits Authorized [id number] Authorized Evaluate and Treat 03/23/2024 04/22/2025 24 31 Encounter Details Date Type Department Care Team (Late st Contact Info) Description 04/28/2024 7:00 AM CDT Therapy [facility] [place] [address] Nathalia Rodas, PT Lumbar radiculopathy (Primary Dx); [...] on file 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 Lumbar radiculopathy M54.16 2. History of spinal fusion Z98.1 3. Left hip pain M25.552 Subjective: Finesse states her pain feels more nerve related than anything Objective: See treatment provided Treatment Provided: Clamshells Bridges BKFO green TB Side plank lift 2x5 Firgure 4 piriformis stretch Manual STM along posterior hip Quadratus lumborum STM Sidelying LE traction Prone sacral mobs into nutation* S/l gapping R side* Supine piriformis stretch* Damon pose Cat/cow Supine trunk rotation* Supine butterfly stretch for adductors* Gait training - using cane on R side* Hip joint mob - lateral, inferior IFC lower back/hip HEP: Access Code: [email or web address] [...] - 2 sets - 10 reps Assessment: Focused on core and glute strengthening today with better tolerance. Plan: Continue progressing as tolerated. Add lumbar traction, side planks, quadruped, bear planks. Time in: 711 Time out: 744 Nathalia Rodas PT, DPT, COMT documented in this encounter Plan of Treatment Not on file documented as of this encounter Visit Diagnoses Diagnosis Lumbar radiculopathy- Primary Thoracic or lumbosacral neuritis or radiculitis, unspecified History of spinal fusion Left hip pain Pain in joint, pelvic region and thigh documented in this encounter Care Teams C Architect Relationship Specialty Start Date End Date Laureano Lantigua MD [address] [place], [place] [address], [place] [address] PCP - General Internal Medicine 07/30/18 Tony Washington MD [address] [place] [address] [place] [address] Bank Teller Obstetrics and Gynecology 11/16/18 Anahy Rosales MD [address] [place] [address] [place] [address] Referring Physician Psychiatry 11/16/18 Nathalia Rodas PT Physical Therapist Physical Therapy 02/14/23 documented as of this encounter
--- OUTSIDE RECORDS SUMMARY | 2024-11-15 03:22 | XMS_ITS | Encounter Summary ---
Author Organization [facility] Healthcare Address [address] [place] [address] Care Team Providers Care Physical Therapy Asst Name Role Phone Laureano Lantigua MD Primary Care Provider [phone] Tony Washington MD Unavailable [phone] Anahy Rosales MD Unavailable [phone] Nathalia Rodas PT Unavailable Unavailable Encounter Details Date Type Department Care Team (Late st Contact Info) Description 03/17/2024 Telephone [facility] Neuro Interventional Radiology [address] [place] [address] Mariel Gray RN Social History Tobacco Use Types Packs/Day [...] on file Legal Sex Female 1:37 AM LOG DECKMAN Gender Identity Female 10/03/2023 10:05 AM LOG DECKMAN Sexual Orientation Straight 10/03/2023 10 :05 AM LOG DECKMAN documented as of this encounter Miscellaneous Notes * Telephone Encounter - Mariel Gray RN - 03/17/2024 11:11 AM CDT Preprocedure Phone Call Procedure Time Verified: Yes Arrival Time Verified: Yes Procedure Location Verified: Yes Medical History Reviewed: Yes NPO Status Reinforced: Yes Ride and Caregiver Arranged: Yes Patient Knows to Bring Current Medications: Yes Patient Knows to Bring CPAP: No Is Patient on Home Ventilator?: No Is Patient on Blood Thinners?: No (denies) documented in this encounter Plan of Treatment Not on file documented as of this encounter Visit Diagnoses Not on filedocumented in this encounter Care Teams Physical Therapy Asst Relationship Specialty Start Date End Date Laureano Lantigua MD [address] [place] [address] PCP - General Internal Medicine 07/30/18 Tony Washington MD [address] [place] [address] [address] [place] [address] Textile Broker Obstetrics and Gynecology 11/16/18 Anahy Rosales MD [address] [place] [address] [place] [address] Referring Physician Psychiatry 11/16/18 Nathalia Rodas, PT Physical Therapist Physical Therapy 02/14/23 documented as of this encounter
--- OUTSIDE RECORDS SUMMARY | 2024-11-15 03:22 | XMS_ITS | Encounter Summary ---
Author Organization [facility] Healthcare Address [address] [place] [address] Care Team Providers Care Rotary Drier Name Role Phone Laureano Lantigua MD Primary Care Provider [phone] Tony Washington MD Unavailable [phone] Anahy Rosales MD Unavailable [phone] Nathalia Rodas PT Unavailable Unavailable Reason for Visit * Reason Comments PT Treatment * Consultation (Routine) - Authorized Specialty Diagnoses / Procedures Referred By Contмария t Referred To Contact Physical Therapy Diagnoses Lumbar radiculopathy History of spinal fusion Jesu Theodore MD [address] [place] [address] Phone: tel: fax: [facility] [employer] [place] [address] [place] [phone] Phone: tel: fax: Referral ID Status Reason Start Date Expiration Date Visits Requested Visits Authorized [id number] Authorized Evaluate and Treat 03/23/2024 04/22/2025 24 31 Encounter Details Date Type Department Care Team (Late st Contact Info) Description 03/31/2024 6:15 PM CDT Therapy [facility] [place] [address] Nathalia Rodas, PT Lumbar radiculopathy (Primary Dx); [...] file Legal Sex Female 1:37 AM PATIENT ATTENDANT Gender Identity Female 10/03/2023 10:05 AM PATIENT ATTENDANT Sexual Orientation Straight 10/03/2023 10 :05 AM PATIENT ATTENDANT documented as of this encounter Progress Notes * Nathalia Rodas, PT - 03/31/2024 6:15 PM CDT PT Treatment 03/31/2024 Finesse Ramirez 1970 ICD-10-CM 1. Lumbar radiculopathy M54.16 2. History of spinal fusion Z98.1 3. Left hip pain M25.552 Subjective: Patient reports she is having a lot of nerve pain down to her lateral foot today. She is having increased spasms in quadratus lumborum and L paraspinals as well as increased pain along posterior hips. She left work early today due to pain and slept in bed with an ice pack all afternoon. She is again presenting tearful regarding her present symptoms. Objective: See treatment provided Treatment Provided: Clamshells Bridges Manual STM along posterior hip Quadratus lumborum STM Sidelying LE traction Prone sacral mobs into nutation* S/l gapping R side Supine piriformis stretch* Damon pose* Cat/cow* Supine butterfly stretch for adductors* Gait training [...] sets - 10 reps Assessment: Pt with poor tolerance to tx, with increased tension and tenderness with palpation along quadratus lumborum and posterior hips today. Unable to tolerate exercise aside from gentle trunk rotation. Added electrical stim to L hip which helped to calm down intensity of pain. Discussed limiting use of wedge shoes and encouraged to purchase TENS unit for pain relief at home. Plan: Continue progressing as tolerated. Add lumbar traction, side planks, quadruped. Time in: 1817 Time out: 1899 Nathalia Rodas PT, DPT, COMT documented in this encounter Plan of Treatment Not on file documented as of this encounter Visit Diagnoses Diagnosis Lumbar radiculopathy- Primary Thoracic or lumbosacral neuritis or radiculitis, unspecified History of spinal fusion Left hip pain Pain in joint, pelvic region and thigh documented in this encounter Care Teams Rotary Drier Relationship Specialty Start Date End Date Laureano Lantigua MD [address] [place] [address] PCP - General Internal Medicine 07/30/18 Tony Washington MD [address] [facility] [address] [place] [address] Supervisor Wood Room Obstetrics and Gynecology 11/16/18 Anahy Rosales MD [address] [facility] [address] [place] [address] Referring Physician Psychiatry 11/16/18 Nathalia Rodas, PT Physical Therapist Physical Therapy 02/14/23 documented as of this encounter
--- OUTSIDE RECORDS SUMMARY | 2024-11-15 03:22 | XMS_ITS | Encounter Summary ---
Author Organization [facility] Healthcare Address [address] [place] [address] Care Team Providers Care Color Paste Mixing Supervisor Name Role Phone Laureano Lantigua MD Primary Care Provider [phone] Tony Washington MD Unavailable [phone] Anahy Rosales MD Unavailable [phone] Nathalia Rodas PT Unavailable Unavailable Reason for Visit * Reason Comments PT Treatment * Consultation (Routine) - Authorized Specialty Diagnoses / Procedures Referred By Jesse t Referred To Contact Physical Therapy Diagnoses Lumbar radiculopathy History of spinal fusion Jesu Theodore MD [address] [place] [address] Phone: tel: fax: [facility] [employer] [address] [place] [phone] Phone: tel: fax: Referral ID Status Reason Start Date Expiration Date Visits Requested Visits Authorized [id number] Authorized Evaluate and Treat 03/23/2024 04/22/2025 24 31 Encounter Details Date Type Department Care Team (Late st Contact Info) Description 04/06/2024 7:00 AM CDT Therapy [facility] [place] [address] Nathalia Rodas, PT Lumbar radiculopathy (Primary Dx); History of spinal fusion; Left hip pain; Encounter for other orthopedic aftercare Social History Tobacco Use Types Packs/Day Years [...] on file Legal Sex Female 1:37 AM 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 Lumbar radiculopathy M54.16 2. History of spinal fusion Z98.1 3. Left hip pain M25.552 4. Encounter for other orthopedic aftercare Z47.89 Subjective: Patient had significant relief after last visit, down to 1/10. She currently has nerve pain in her L buttock but does feel better than last week. Objective: See treatment provided Treatment Provided: Clamshells [...] Assessment: Pt with fair tolerance to treatment today. Able to tolerate more strengthening exercises, however began to c/o symptoms along lateral hip and into groin by end of session. Plan: Continue progressing as tolerated. Add lumbar traction, side planks, quadruped. Time in: 702 Time out: 749 Nathalia Rodas PT, DPT, COMT documented in this encounter Plan of Treatment Not on file documented as of this encounter Visit Diagnoses Diagnosis Lumbar radiculopathy- Primary Thoracic or lumbosacral neuritis or radiculitis, unspecified History of spinal fusion Left hip pain Pain in joint, pelvic region and thigh Encounter for other orthopedic aftercare documented in this encounter Care Teams Color Paste Mixing Supervisor Relationship Specialty Start Date End Date Laureano Lantigua MD [address] [place] [address] PCP - General Internal Medicine 07/30/18 Tony Washington MD [address] [facility] [place] [address] Drawer In Obstetrics and Gynecology 11/16/18 Anahy Rosales MD [address] [facility] [address] Referring Physician Psychiatry 11/16/18 Nathalia Rodas, PT Physical Therapist Physical Therapy 02/14/23 documented as of this encounter
--- OUTSIDE RECORDS SUMMARY | 2024-11-15 03:22 | XMS_ITS | Encounter Summary ---
Author Organization [facility] Healthcare Address [address] [place] [address] Care Team Providers Care Importer Exporter Name Role Phone Laureano Lantigua MD Primary Care Provider [phone] Tony Washington MD Unavailable [phone] Anahy Rosales MD Unavailable [phone] Nathalia Rodas PT Unavailable Unavailable Reason for Visit * Reason Comments PT Treatment * Consultation (Routine) - Authorized Specialty Diagnoses / Procedures Referred By Jesse t Referred To Contact Physical Therapy Diagnoses Lumbar radiculopathy History of spinal fusion Jesu Theodore MD [address] [place] [address] Phone: tel: fax: [facility] [employer] [place] [address] [place] [phone] Phone: tel: fax: Referral ID Status Reason Start Date Expiration Date Visits Requested Visits Authorized [id number] Authorized Evaluate and Treat 03/23/2024 04/22/2025 24 31 Encounter Details Date Type Department Care Team (Late st Contact Info) Description 04/23/2024 7:00 AM CDT Therapy [facility] [place] [address] Nathalia Rodas, PT Lumbar radiculopathy (Primary Dx); [...] on file Legal Sex Female 1:37 AM 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 Lumbar radiculopathy M54.16 2. History of spinal fusion Z98.1 3. Left hip pain M25.552 Subjective: She had to work 12 hours the past 2 days and then had a work emergency overnight. Yesterday she felt she was doing really well, but had to use a cane after about 10 hours of work. She currently feelslike she is sitting on a golf ball. Objective: See treatment provided Treatment Provided: Clamshells* Bridges BKFO green TB Side plank lift x5* Firgure 4 piriformis stretch Manual STM along [...] on STM at PSIS and glute strengthening. Plan: Continue progressing as tolerated. Add lumbar traction, side planks, quadruped, bear planks. Time in: 657 Time out: 741 Nathalia Rodas PT, DPT, COMT documented in this encounter Plan of Treatment Not on file documented as of this encounter Visit Diagnoses Diagnosis Lumbar radiculopathy- Primary Thoracic or lumbosacral neuritis or radiculitis, unspecified History of spinal fusion Left hip pain Pain in joint, pelvic region and thigh documented in this encounter Care Teams Importer Exporter Relationship Specialty Start Date End Date Laureano Lantigua MD [address] [place] [address] PCP - General Internal Medicine 07/30/18 Tony Washington MD [address] [facility] [place] [place] [address] Package Yarns Drying Machine Operator Obstetrics and Gynecology 11/16/18 Anahy Rosales MD [address] [facility] [place] [place] [address] Referring Physician Psychiatry 11/16/18 Nathalia Rodas, PT Physical Therapist Physical Therapy 02/14/23 documented as of this encounter
--- OUTSIDE RECORDS SUMMARY | 2024-11-15 03:22 | XMS_ITS | Encounter Summary ---
Author Organization [facility] Address [address] [place] [address] Phone Care Team Providers Care Irradiated Fuel Handler Name Role Phone Laureano Lantigua MD Primary Care Provider [phone] Tony Washington MD Unavailable [phone] Anahy Rosales MD Unavailable [phone] Nathalia Rodas PT Unavailable Unavailable Reason for Referral * MRI/CAT/PET Scan (Routine) - Closed Specialty Diagnoses / Procedures Referred By Contac t Referred To Contact Radiology Diagnoses Lumbar radiculopathy Lumbar back pain History of spinal fusion Procedures CT Post Myelogram Lumbar Juan José Kapoor MD [address] [facility] [place] [address] Phone: tel: fax: [address] [phone] Referral ID Status Reason Start Date Expiration Date Visits Re quested Visits Authorized [id number] Closed 03/10/2024 04/09/2025 1 1 Reason for Visit * Consultation (Routine) - Authorized Specialty Diagnoses / Procedures Referred By Jesse santana Referred To Contact Orthopedic Surgery Diagnoses Lumbar back pain Laureano Lantigua MD [address] [place] [address] Phone: tel: fax: Juan José Kapoor MD [address] [facility] [place] [address] Phone: tel: fax: Referral ID Status Reason Start Date Expiration Date Visits Requested Visits Authorized [id number] Authorized Specialty Services Required 02/25/2024 03/26/2025 12 12 Encounter Details Date Type Department Care Team (Late st Contact Info) Description 03/10/2024 1:30 PM CDT Office Visit [facility] [address] [place] [address] Medical Office Building [address] [place] [id number] Juan José Kapoor MD [address] [facility] [place] [address] Lumbar radiculopathy (Primary Dx); Lumbar back pain; History of spinal fusion Social History Tobacco [...] on file Legal Sex Female 1:37 AM REHAB AID Gender Identity Female 10/03/2023 10:05 AM REHAB AID Sexual Orientation Straight 10/03/2023 10 :05 AM REHAB AID documented as of this encounter Last Filed Vital Signs Vital Sign Reading Time Taken Comments Blood Pressure - - Pulse - - Temperature - - Respiratory Rate - - Oxygen Saturation - - Inhaled Oxygen Concentration - - Weight 91.6 kg (202 lb) 03/10/2024 1:26 PM CDT Height - - Body Mass Index 27.4 02/16/2024 2:42 PM CDT documented in this encounter Patient Instructions * Patient Instructions* Natalya Estrella RMA - 03/10/2024 1:30 PM CDT Thank you for your visit today. Dr. Kapoor has recommended the following treatment: CT Myelogram of your lumbar spine. This has been scheduled for 03/24/2024 at 9:00am w/800am arrival-[facility]. If you have any questions, concerns, or need to make changes to this appointment, please call [phone] Please let me know if you have any questions. GAYATHRI Gao Expediter Clerk to Dr. Kapoor Department of Orthopedic Spine Surgery Important Phone Numbers: documented in this encounter Progress Notes * Juan José Kapoor MD - 03/10/2024 1:30 PM CDT Images from the original note were not included. New Patient Visit Chief Complaint Low back pain bilateral lower extremity pain, numbness, and weakness. History of Present Illness Finesse Ramirez is a 54 y.o. female with a past surgical history significant for a posterior spinal fusion with instrumentation from L5 to S1 with a transforaminal lumbar interbody fusion at the L5-[id number] performed in 2010 at an outside institution who presents to our office today for evaluation of low back pain and bilateral lower extremity pain, numbness, and weakness. The patient states that she has had spine problems for 20 years. They have gotten substantially worse over the course of thelast 4 years. She denies any antecedent trauma or any specific events which led to the development of her symptoms. She describes the pain as being aching in quality and severe in severity. She ratesthe pain as being 8/10 in severity today. Approximately 50% of the pain is present in the low back and remaining 50% of the pain is present in the lower extremities. Of the lower extremity pain, 10% is on the right and 90% is on the left. The right lower extremity pain is present in the buttock and anterolateral/inner thigh. The left lower extremity pain is present in the buttock with radiation into the , inner thigh, anterolateral thigh, posterior thigh, calf, and foot. The patient has noticedweakness of her left thigh, calf, ankle, and foot. She has had occasional numbness healing in the left thigh, calf, ankle, and foot. The pain the left posterior thigh, calf, ankle, and foot has been present since before the patient's surgery in 2010 and did not improve following the operation. The left anterolateral thigh and groin pain has been more recent (the patient has intrinsic left hip pathology for which she has undergone surgery by Dr. Cecilia Bhatia). She has had no loss of bowel or bladder control. She can only stand and walk for short periods of time secondary to her symptoms. She has tried physical therapy, massage, anti- inflammatory and narcotic pain medications, epidural steroid injections, facet blocks, and radiofrequency ablation for her symptoms. She is here today to see what else can be done. Past Medical History She has a past medical history of Anxiety, Asthma, Blind right eye, Cancer ([facility]) ([facility]) (2020), Female infertility, Fibrocystic breast, GERD (gastroesophageal reflux disease), Hammer toe, OTHER MEDICAL, OTHER MEDICAL, OTHER MEDICAL, OTHER MEDICAL, Hypercholesterolemia, Hypertension, Motion sickne ss, and Retinal detachment. She has no past medical history of Awareness under anesthesia, Delayed emergence from general anesthesia, Hard to intubate, Malignant hyperthermia, PONV (postoperative nausea and vomiting), Postoperative delirium, Pseudocholinesterase deficiency, Seizures ([facility]), or Stroke (HCC). Past Surgical History She has a past surgical history that includes Carpal tunnel release (Bilateral, 1991); Rotator cuffrepair (Left, 2007); Other surgical history; Dilation and curettage of uterus (2010); Spinal fusion(2010); Anterior cruciate ligament repair (Right, 2007); Rotator cuff repair (Left, 2016); Ankle surgery (Left, 2007); Cholecystectomy (03/2018); Elbow surgery (Left, 11/07/2020); Colonoscopy (03/27/2021); Mohs surgery (07/2021); Sleeve Gastroplasty (2014); Cardiac catheterization (2012); Combined hysteroscopy diagnostic / D&C (03/12/2023); Endometrial ablation (03/12/2023); Cataract extraction (2004); and Bariatric Surgery. Medications She has a current medication list which includes the following prescription(s): bupropion sr, albuterol hfa, buspirone, concerta, diazepam, estradiol, ferrous sulfate, magnesium phosphate (bulk), methylphenidate hcl, oxycodone- acetaminophen, progesterone, and trazodone. Drug Allergies She is allergic to erythromycin, nylon, morphine, and vicodin [hydrocodone-acetaminophen]. Social History She reports that she has never smoked. She has never used smokeless tobacco. She reports that she does not use drugs. Family History Her family history includes Diabetes in an other family member; Heart attack in her cousin, father,and maternal grandfather; Heart disease in her father and another family member; Hyperlipidemia in her father; Hypertension in her maternal grandmother and mother; Prostate cancer in her maternal grandfather. Physical Examination WEIGHT/BMI: Estimated body mass index is 27.4 kg/m?? as calculated from the following: Height as of 02/16/24: 182.9 cm (6'). Weight as of this encounter: 91.6 kg (202 lb). CONSTITUTIONAL: In general, patient is well appearing, is alert, and is in no acute distress. PSYCH: Mood and affect are appropriate. HEENT: Pupils equal and reactive to light. Neck symmetric without obvious masses. RESPIRATORY: Breathing is nonlabored with no audible wheezing. CARDIOVASCULAR/VASCULAR: Peripheral pulses are palpable and there is no evidence of peripheral edema. SKIN: No obvious rashes, ulcers, or open wounds. Incision is well-healed. MUSCULOSKELETAL: The patient ambulates with a normal gait. She is able to stand on her toes, stand on her heels, and is able to stand on each leg independently. She stands in normal coronal and sagittal alignment. NEUROLOGIC: Motor strength examination demonstrates normal motor strength throughout the lower extremities on both static and dynamic testing. Sensation to light touch is intact. Reflexes are normal and symmetric throughout the lower extremities. Babinski sign is negative. There is no clonus. Patient was examined with Dr. Rory Mcconnell. PROMIS Scores 08/18/2023 09/10/2023 02/04/2024 03/10/2024 PROMIS Mobility V1.2 35.1 34 Pain Interference 64.2 70.5 67.3 74.1 Physical Function V2.0 36.5 35 34 Anxiety V1.0 51.9 63.7 53.6 Depression 49.9 51.7 51.3 Review of Plain Radiographs/Studies MRI scan of the lumbar spine obtained at an outside facility February 24, 2024 was reviewed. The MRI scan is of very poor quality. Is evidence of a posterior spinal fusion with instrumentation from L5 toS1. The conus medullaris terminates the level of L1 and the distal spinal cord signal intensity. AtL1-L2, there is a mild diffuse disc bulge. There is mild facet arthropathy. There is no significantstenosis. At L2-L3, there is a mild diffuse disc bulge superimposed small central and left paracentral disc protrusion. There is mild facet arthropathy. There is ligamentum flavum hypertrophy. There is mild spinal canal stenosis and mild bilateral lateral recess stenosis. At L3-L4, there is a mild diffuse disc bulge. There is moderate facet arthropathy. There is ligamentum flavum hypertrophy. There is mild spinal canal stenosis, moderate bilateral lateral recess stenosis, and foraminal stenosis. At L4-L5, there is a mild diffuse disc bulge. There is moderate facet arthropathy. There is ligamentum flavum hypertrophy. There is lduj-nu-[id number] spinal canal stenosis, moderate bilateral lateral recess stenosis, and mild left foraminal stenosis. L5-S1, surgery has been performed. Plain radiographs of the lumbar spine obtained at the time of today's office visit were reviewed. These demonstrate evidence of a posterior spinal fusion with instrumentation from L5 to S1 with an interbody fusion at the L5-S1 level. The fusion appears solid. Impression/Diagnosis The patient is a 54 y.o. 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 Treatment Plan I discussed with the patient my impression, the imaging findings, and treatment plan in detail witha focus on the etiology, natural history, and management of her symptoms. I discussed with the patient that although some of her symptoms are likely due to the development of transition syndrome and lumbar spinal stenosis at L3-L4 and L4-L5, the majority of her symptoms are likely related to her intrinsic left hip pathology and sequelae of prior surgery. To evaluate this further, would like to obtain a CT myelogram of the lumbar spine. If the CT myelogram demonstrates/confirms substantial lumbar spinal stenosis at L3-L4 and L4-L5, surgical intervention consisting of a revision posterior spinal fusion with instrumentation from L3 to the sacrum/ilium with a decompression at L3-L4 and L4-L5 could be considered as a measure of last resort. Alternatives to surgery would include modalities suchas physical therapy and epidural steroid injections (which the patient has not gotten for years). Idiscussed with the patient that the likelihood that additional surgery to address the degenerative changes at L3-L4 and L4-L5 would help resolve all of her issues is minimal as a lot of her pain seems to be related to intrinsic left hip pathology and sequelae of her prior lumbar spine surgery. We will see what the CT myelogram shows and go from there. My total encounter time on 03/10/2024 was 69 minutes which was spent in the activities documented inthe note. This includes time spent prior to the visit and after the visit in direct care of the patient. This time does not include time spent in any separately reportable services. Juan José Kapoor M.D., M.S. Neil Prince and Luz Conner Distinguished Professor of Orthopaedic Surgery Professor of Neurological Surgery Vice-Chair of Clinical Affairs Department of Orthopaedic Surgery [facility] [employer] [place], [place] Rewind Operator done by [employer]; therefore, variances and inaccuracies may occur. I reviewed the patient problem list pertinent to the visit today, but the entire patient problem list was not reviewed today. documented in this encounter Plan of Treatment Not on file documented as of this encounter Results * CT Post Myelogram [...] MD IMG CT PROCEDURES Abril l Result * Myelogram Lumbar (03/19/2024 9:41 AM CDT) Anatomical Region Laterality Modality Spine N/A Radio Fluoroscop y 03/19/2024 11:4 8 AM CDT Impressions 03/19/2024 [...] Electronically signed by: Bernardo Giang MD, PHD us Juan José Kapoor MD IMG IR PROCEDURES Abril l Result * XR Spine Lumbar Complete 4 View [...] in this encounter Visit Diagnoses Diagnosis Lumbar radiculopathy- Primary Thoracic or lumbosacral neuritis or radiculitis, unspecified Lumbar back pain Lumbago History of spinal fusion Lumbar radiculopathy Thoracic or lumbosacral neuritis or radiculitis, unspecified Lumbar radiculopathy Thoracic or lumbosacral neuritis or radiculitis, unspecified Lumbar back pain Lumbago History of spinal fusion Lumbar radiculopathy Thoracic or lumbosacral neuritis or radiculitis, unspecified Lumbar back pain Lumbago History of spinal fusion documented in this encounter Discontinued Medications Medication Sig Discontinue Reason Start Date End Da te busPIRone (BUSPAR) 10 mg tablet Take 1 tablet (10 mg total) by mouth daily as needed (anxiety) Therapy completed 10/18/2021 03/10/2024 methylphenidate ER (CONCERTA) 27 mg CR tabletIndications:Attenti on-Deficit Hyperactivity Disorder Take 1 tablet (27 mg total) by mouth every morning Therapy completed 03/10/2024 ondansetron (ZOFRAN) 4 mg tablet Take 1 tablet (4 mg total) by mouth every 6 (six) hours as needed for nausea or vomiting Therapy completed 10/03/2023 03/10/2024 documented as of this encounter Historical Medications * This list may reflect changes made after this encounter. buPROPion SR (WELLBUTRIN SR) 100 mg 12 hr tablet Take 1 tablet (100 mg total) by mouth 2 (two) times a day 03/03/2024 Concerta 36 mg CR tablet busPIRone (BUSPAR) 15 mg tablet added in this encounter Orders Outpatient Referral Count Last Ordered Date Fir st Ordered Date AMB REFERRAL TO ORTHOPEDIC SURGERY 1 2023 documented in this encounter Care Teams Irradiated Fuel Handler Relationship Specialty Start Date End Date Laureano Lantigua MD [address] [place] [address] PCP - General Internal Medicine 07/30/18 Tony Washington MD [address] [place] [address] [place] [address] Film Historian Obstetrics and Gynecology 11/16/18 Anahy Rosales MD [address] [place] [address] [place] [address] Referring Physician Psychiatry 11/16/18 Nathalai Rodas, PT Physical Therapist Physical Therapy 02/14/23 documented as of this encounter
--- OUTSIDE RECORDS SUMMARY | 2024-11-15 03:22 | XMS_ITS | Encounter Summary ---
Author Organization [facility] Address [address] [place] [address] Phone Care Team Providers Care Train Electronic Technician Name Role Phone Laureano Lantigua MD Primary Care Provider [phone] Tony Washington MD Unavailable [phone] Anahy Rosales MD Unavailable [phone] Nathalia Rodas PT Unavailable Unavailable Reason for Referral * Procedure (Routine) - Authorized Specialty Diagnoses / Procedures Referred By Contac t Referred To Contact Diagnoses Left hip pain Procedures Large Joint Injection: L hip joint Cecilia Conn MD [address] [facility] [address] [place] [address] Phone: tel: fax: [facility] (All Locations) Referral ID Status Reason Start Date Expiration Date V isits Requested Visits Authorized [id number] Authorized 07/01/2024 07/31/2025 1 1 * Diagnostic Imaging (Routine) - Closed Specialty Diagnoses / Procedures Referred By Contac t Referred To Contact Diagnoses Left hip pain Orthopedic aftercare Procedures XR Hip Left 2 or 3 Views W Pelvis Cecilia Conn MD [address] [facility] [address] [place] [address] Phone: tel: fax: [facility] Radiology [address] [facility] [place] [address] Phone: tel: Referral ID Status Reason Start Date Expiration Date Visits Re quested Visits Authorized [id number] Closed 06/22/2024 07/22/2025 1 1 Reason for Visit * Reason Comments Pain Follow-up Injections Encounter Details Date Type Department Care Team (Late st Contact Info) Description 06/30/2024 1:45 PM CDT Office Visit [facility] Orthopaedic Surgery [address] [facility] [address] [place] [address] Cecilia Conn MD [address] [facility] [address] [place] [address] Left hip pain (Primary Dx); Orthopedic aftercare Social History Tobacco Use Types Packs/Day [...] on file Legal Sex Female 1:37 AM CLINICAL COURIER Gender Identity Female 10/03/2023 10:05 AM CLINICAL COURIER Sexual Orientation Straight 10/03/2023 10 :05 AM CLINICAL COURIER documented as of this encounter Patient Instructions * Patient Instructions* Sue Zaman CMA - 06/30/2024 1:45 PM CDT Your injection included 80 mg of Depo-Medrol (cortisone) and 6 cc???s Marcaine (numbing medication). You may resume taking ANY pain relieving medications immediately after the procedures, including anti-inflammatories. You may resume any blood thinners after the procedures. The numbing medication usually wears off 2-4 hours after the procedure. Ice the area 20 minutes at a time the day of the injection and the day after. The day after the injection you may feel worse than you did before you received the injection (refer to #5). If you are a diabetic please monitor your blood sugars the day of the injection and the day after. The cortisone may increase your blood sugars. The steroid medication usually takes up to TEN days to start to take effect and TWO WEEKS to have afull beneficial effect. If you have any questions regarding your procedure, please do not hesitate to contact the performing doctor???s office. documented in this encounter Progress Notes * Kaylin Ruiz B.A. - 06/30/2024 1:45 PM CDTAssociated Order(s): Large Joint Injection: L hip joint Post-Procedure Diagnose(s): Left hip pain Post Op Note History She is 6 months s/p Left Hip Arthroscopy, Labrum Debridement, Chondroplasty and Capsula Repair. Sheis here today with a lot of frustration after seeing Dr. Kapoor. She complains of back and hip pain today. She has been having some left hip and lower back pain. We will proceed with an injection today in clinic and refer her to another spine provider. Physical Exam minimal FADIR and CAM Good ROM Plan I would like to proceed with an injection today in clinic for pain control. She will monitor her pain and keep us updates. She agrees with this plan. All questions were addressed. We opted to move forward with a left intraarticular injection today in clinic. After verbal consentwas obtained and she voiced understanding of risks of infection, misplaced injection, fat or skin atrophy or injection into unintended structures, skin was prepped and draped in routine sterile fashion. With sterile technique, after local skin and subcutaneous tissues were injected without complication. The procedure was well tolerated. Large Joint Injection: L hip joint Performed by: Cecilia Conn MD Authorized by: Cecilia Conn MD Large Joint Injection/Aspiration: Consent Given by: Patient Site marked: the procedure site was marked Timeout: prior to procedure the correct patient, procedure, and site was verified Verbal consent obtained: Yes Procedure Details: Location: Hip Site: L hip joint Prep: patient was prepped and draped in usual sterile fashion Needle Size: 18 G Ultrasound guided: No Fluroscopic guidance: No Medications: 6 mL BUPivacaine HCl 0.25 % (2.5 mg/mL); 80 mg triamcinolone 40 mg/mL Patient tolerance: Patient tolerated the procedure well with no immediate complications Sincerely Dr. Rm Ruiz, scribed for Dr. Abdalla in the doctor's presence. documented in this encounter Plan of Treatment Not on file documented as of this encounter Procedures Procedure Name Priority Date/Time Associated Diagnosis Comments WI ARTHROCENTESIS ASPIR&/INJ MAJOR JT/BURSA W/O US Routine 06/30/2024 1:45 PM CDT Left hip pain documented in [...] visualized posterior spinal fusion hardware. Procedure Note Ana Dereck DO Mick - 06/30/2024 EXAMINATION: XR HIP LEFT 2 [...] abnormality. Electronically signed by: Dereck Perez D.O. us Cecilia Ruggiero MD IMG XR PROCEDURES Fin al Result * WI ARTHROCENTESIS ASPIR&/INJ MAJOR JT/BURSA W/O US (06/30/2024 1:45 PM CDT) Narrative Cecilia oCnn MD - 06/30/2024 1:45 PM CDT Cecilia Conn MD ? 07/01/2024 12:08 PM Large Joint Injection: L hip joint Performed by: Cecilia Conn MD Authorized by: Cecilia Conn MD ?? Large Joint Injection/Aspiration: ??Consent Given by: ??Patient ??Site marked: the procedure site was marked ?Timeout: prior to procedure the correct patient, procedure, and site was verified ?Verbal consent obtained: Yes ?? Procedure Details: ??Location: ??Hip ??Site: ??L hip joint ??Prep: patient was prepped and draped in usual sterile fashion ?Needle Size: ??18 G ??Ultrasound guided: No ?Fluroscopic guidance: No ?Medications: ??6 mL BUPivacaine HCl 0.25 % (2.5 mg/mL); 80 mg triamcinolone 40 mg/mL ??Patient tolerance: ??Patient tolerated the procedure well with no immediate complications Cecilia Ruggiero MD IN CLINIC/BEDSIDE ORD ERABLES Final Result documented in this encounter Visit Diagnoses Diagnosis Left hip pain- Primary Pain in joint, pelvic region and thigh Orthopedic aftercare Unspecified orthopedic aftercare Left hip pain Pain in joint, pelvic region and thigh Orthopedic aftercare Unspecified orthopedic aftercare documented in this encounter Administered Medications Inactive Administered Medications - up to 3 most recent administrations Medication Order MAR Action Action Date Dose Rate Site BUPivacaine HCl (MARCAINE) 0.25 % (2.5 mg/mL) injection 6 mL 6 mL, intra-articular, One-Time Injection, Starting on Fri06/30/24 at 1345, For 1 doseIndications:Left hip pain Given 06/30/2024 1:45 PM CDT 6 mL Left Hip triamcinolone (KENALOG) 40 mg/mL injection 80 mg 80 mg, intra-articular, One-Time Injection, Starting on Fri06/30/24 at 1345, For 1 doseIndications:Left hip pain Given 06/30/2024 1:45 PM CDT 80 mg Left Hip documented in this encounter Care Teams Train Electronic Technician Relationship Specialty Start Date End Date Laureano Lantigua MD [address] [place] [address] PCP - General Internal Medicine 07/30/18 Tony Washington MD [address] [facility] [address] [place] [address] Political Science Faculty Member Obstetrics and Gynecology 11/16/18 Anahy Rosales MD [address] [place] [address] Referring Physician Psychiatry 11/16/18 Nathalia Rodas, PT Physical Therapist Physical Therapy 02/14/23 documented as of this encounter
--- OUTSIDE RECORDS SUMMARY | 2024-11-15 03:22 | XMS_ITS | Encounter Summary ---
Author Organization [facility] Address [address] [place] [address] Care Team Providers Care Roundsman Name Role Phone Laureano Lantigua MD Primary Care Provider [phone] Tony Washington MD Unavailable [phone] Anahy Rosales MD Unavailable [phone] Nathalia Rodas PT Unavailable Unavailable Reason for Visit * Reason Comments PT Treatment * Consultation (Routine) - Authorized Specialty Diagnoses / Procedures Referred By Contмария t Referred To Contact Physical Therapy Diagnoses Lumbar radiculopathy History of spinal fusion Jesu Theodore MD [address] [place] [address] Phone: tel: fax: [facility] [employer] [place] [address] [place] [phone] Phone: tel: fax: Referral ID Status Reason Start Date Expiration Date Visits Requested Visits Authorized [id number] Authorized Evaluate and Treat 03/23/2024 04/22/2025 24 31 Encounter Details Date Type Department Care Team (Late st Contact Info) Description 05/18/2024 3:15 PM CDT Therapy [facility] Physical Therapy [place] [address] Nathalia Rodas, PT Lumbar radiculopathy (Primary Dx); [...] on file Legal Sex Female 1:37 AM BRIM STITCHER Gender Identity Female 10/03/2023 10:05 AM BRIM STITCHER Sexual Orientation Straight 10/03/2023 10 :05 AM BRIM STITCHER documented as of this encounter Progress Notes * Nathalia Rodas, PT - 05/18/2024 3:15 PM CDT PT Treatment 05/18/2024 Finesse Ramirez 1970 ICD-10-CM 1. Lumbar radiculopathy M54.16 2. History of spinal fusion Z98.1 3. Left hip pain M25.552 Subjective: Patient had to miss work on Friday due to increased pain in L LE and back. She enters clinic today with impaired gait pattern with report of nerve symptoms to L foot. Current pain 02/24. Objective: See treatment provided Impaired gait - noted decreased speed, fractured movements Treatment Provided: Clamshells Bridges BKFO green TB Side plank lift 2x5 Firgure 4 piriformis stretch Manual STM along posterior hip Quadratus lumborum STM Sidelying LE traction Prone sacral mobs into nutation* S/l gapping R side* Supine piriformis stretch* Damon pose Cat/cow Bear Plank 2sec hold x5 Squat Side steps red loop 2 hip abd green TB Retro walk Supine trunk rotation* Supine butterfly stretch for [...] - 2 sets - 10 reps Assessment: Focus on functional glute strengthening today with fair tolerance Plan: Continue progressing as tolerated. Add lumbar traction, side planks, quadruped, bear planks. Time in: 1530 (pt late) Time out: 1600 Nathalia Rodas PT, DPT, COMT documented in this encounter Plan of Treatment Not on file documented as of this encounter Visit Diagnoses Diagnosis Lumbar radiculopathy- Primary Thoracic or lumbosacral neuritis or radiculitis, unspecified History of spinal fusion Left hip pain Pain in joint, pelvic region and thigh documented in this encounter Care Teams Roundsman Relationship Specialty Start Date End Date Laureano Lantigua MD [address] [place] [address] PCP - General Internal Medicine 07/30/18 Tony Washington MD [address] [place] [address] [place] [address] [employer] Obstetrics and Gynecology 11/16/18 Anahy Rosales MD [address] [place] [address] [place] [address] Referring Physician Psychiatry 11/16/18 Nathalia Rodas, PT Physical Therapist Physical Therapy 02/14/23 documented as of this encounter
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
--- OUTSIDE RECORDS SUMMARY | 2024-11-15 03:22 | XMS_ITS | Encounter Summary ---
Author Organization [facility] Healthcare Address [address] [place] [address] Care Team Providers Care Strawhat Blocking Operator Name Role Phone Laureano Lantigua MD Primary Care Provider [phone] Tony Washington MD Unavailable [phone] Anahy Rosales MD Unavailable [phone] Nathalia Rodas PT Unavailable Unavailable Encounter Details Date Type Department Care Team (Latest Contact Info) Description 03/19/2024 8:44 AM CDT - 03/19/2024 11:59 PM CDT Hospital Encounter [facility] Neuro Interventional Radiology [address] [place] [address] Lumbar radiculopathy; Lumbar back pain; History of [...] on file Legal Sex Female 1:37 AM 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 OPERATOR Gender Identity Female 10/03/2023 10:05 AM 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 MAINTENANCE OPERATOR Sexual Orientation Straight 10/03/2023 10 :05 AM 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 MAINTENANCE OPERATOR documented as of this encounter Last Filed Vital Signs Vital Sign Reading Time Taken Comments Blood Pressure 141/98 03/19/2024 10:35 AM CDT Pulse 92 03/19/2024 10:35 AM CDT Temperature 36.4 ??C (97.6 ??F) 03/19/2024 10:35 AM C DT Respiratory Rate 15 03/19/2024 10:35 AM CDT Oxygen Saturation 99% 03/19/2024 10:35 AM CDT Inhaled Oxygen Concentration - - Weight 92.5 kg (204 lb) 03/19/2024 8:49 AM CDT Height 182.9 cm (6') 03/19/2024 8:49 AM CDT Body Mass Index 27.67 03/19/2024 8:49 AM CDT documented in this encounter Discharge Instructions * Discharge Instructions* Raúl Wright MD - 03/19/2024 9:39 AM CDT [facility] Neuro Spine Outpatient Discharge Instructions Diagnosis Procedure Discharge Instructions: Do not drive, operate machinery, or drink alcohol until tomorrow Do not smoke today Stay with a responsible adult tonight Do not make any legal or important decisions for 24 hours Do not take any additional pain medications, sleeping pills or sedatives unless ok'd by your doctor Special Instructions: Activity: [] Normal [] Avoid stairs [x] No lifting [] Other Diet: [] No restrictions [] liquid diet [x] drink plenty of fluids [] previous diet ordered by your doctor Medications: [x] None required [] continue present medications [] Prescription given [] Teaching sheets given [] Other Procedure: [x] Keep area clean and dry [] change dressing Site care: [] Bathe or shower after [] Other: Specific Procedural Information: Follow up care: [x] No appointment necessary-return only if problems develop [] Please return on at [] Please call one of the neuro radiologists for any of the following: (M-F 7:30am-4:00pm, [phone]. After hours call [phone], ask for neuro radiologist director of transportation) [] Any questions or problems [] Hematoma (extreme bruising at the site) [] Drainage from site [] Fever [] Bleeding [] [] Other: documented in this encounter Medications at Time [...] documented in this encounter Miscellaneous Notes * Post-Procedure Note - Raúl Wright MD - 03/19/2024 9:00 AM CDT Radiology Brief Post Procedure Note Attending: Dr. Giang Studio Hand: Dr. Wright Sedation/Anesthesia: Local Pre-Op/Pre-Procedure Diagnosis: Back pain Post-Op/Post-Procedure Diagnosis: Back pain Procedure Performed: LP Procedure Findings: Successful LP / myelogram. Complications: None Estimated Blood Loss: None Specimens: None Condition: Stable Full report to follow. * Pre-Procedure Note - Raúl Wright MD - 03/19/2024 9:00 AM CDT Neuro spine pre-procedure Note Chief complaint: Back pain Have you taken any blood thinners within the last 30 days? Include last dose taken. 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 Cancer (CMS/HCC) (HCC) 2020 basal cell carcinoma removed from [facility] with the Moh's Female infertility Infertility, female Fibrocystic breast GERD (gastroesophageal reflux disease) Hammer toe Hammer toe; Comments: [facility] 06/27/2014 - HX OTHER MEDICAL Sinusitis, ADD, diverticulosis, obesity, OA, asthm HX OTHER MEDICAL Depression, with Anxiety; PCOS HX OTHER MEDICAL Missed Ab HX OTHER MEDICAL ; Outcome: [id number] week 7lb(s) 7 oz Male Hypercholesterolemia High cholesterol; Comments: [facility] 06/27/2014 - Hypertension Hypertension Motion sickness Retinal detachment Detachment of retina; Comments: [facility] 06/27/2014 - Allergies: Allergies Allergen Reactions Erythromycin Rash Nylon Rash Stitches-severe redness: had to be removed early Morphine Nausea & Vomiting Vicodin [Hydrocodone-Acetaminophen] Vomiting Meds: Current Outpatient Medications: albuterol HFA (PROVENTIL HFA,VENTOLIN HFA,PROAIR HFA) 90 mcg/actuation inhaler, 2 puffs qid prn (Patient taking differently: Inhale 2 puffs every 6 (six) hours as needed for wheezing or shortness of breath 2 puffs qid prn), Disp: 1 each, Rfl: 11 buPROPion SR (WELLBUTRIN SR) 100 mg 12 hr tablet, Take 1 tablet (100 mg total) by mouth 2 (two) times a day, Disp: , Rfl: busPIRone (BUSPAR) 15 mg tablet, , Disp: , Rfl: Concerta 36 mg CR tablet, , Disp: , Rfl: diazePAM (VALIUM) 5 mg tablet, Take 1 tablet (5 mg total) by mouth every 6 (six) hours as needed for anxiety for up to 7 days, Disp: 28 tablet, Rfl: 0 estradioL (VIVELLE-DOT) 0.075 mg/24 hr, Place 1 patch on the skin 2 (two) times a week, Disp: 26 patch, Rfl: 3 ferrous sulfate 325 mg (65 mg of elemental iron) tablet, Take 1 tablet (325 mg total) by mouth daily with breakfast, Disp: , Rfl: magnesium phosphate, bulk, powder, Take 1 tablet by mouth every morning, Disp: , Rfl: meloxicam (MOBIC) 15 mg tablet, Take 1 tablet (15 mg total) by mouth daily, Disp: 30 tablet, Rfl: 0 methylphenidate HCl (RITALIN) 5 mg tablet, Take 1 tablet (5 mg total) by mouth daily with lunch, Disp: , Rfl: oxyCODONE-acetaminophen (PERCOCET) 5-325 mg per tablet, Take 1 tablet by mouth every 4 (four) hoursas needed for pain, Disp: 30 tablet, Rfl: 0 progesterone (PROMETRIUM) 200 mg capsule, One pill vaginally every night for 12 days every 3 months, Disp: 12 capsule, Rfl: 3 traZODone (DESYREL) 50 mg tablet, Take 1 tablet (50 mg total) by mouth nightly, Disp: , Rfl: Current Facility-Administered Medications: lidocaine (PF) (XYLOCAINE) 10 mg/mL (1 %) preservative free injection, , , PRN, Bernardo Giang MD PhD, 5 mL at 03/19/24 0921 Prior to Admission medications Medication Sig Start Date End Date Taking? Authorizing Provider albuterol HFA (PROVENTIL HFA,VENTOLIN HFA,PROAIR HFA) 90 mcg/actuation inhaler 2 puffs qid prn Patient taking differently: Inhale 2 puffs every 6 (six) hours as needed for wheezing or shortness of breath 2 puffs qid prn 01/04/22 Laureano Lantigua MD buPROPion SR (WELLBUTRIN SR) 100 mg 12 hr tablet Take 1 tablet (100 mg total) by mouth 2 (two) times a day 03/03/24 ProviderKanu MD busPIRone (BUSPAR) 15 mg tablet Kanu Waterman MD Concerta 36 mg CR tablet Kanu Waterman MD diazePAM (VALIUM) 5 mg tablet Take 1 tablet (5 mg total) by mouth every 6 (six) hours as needed foranxiety for up to 7 days 11/19/23 11/26/23 Cecilia Conn MD estradioL (VIVELLE-DOT) 0.075 mg/[address] 1 patch on the skin 2 (two) times a week 02/16/24 02/15/25Tony Washington MD ferrous sulfate 325 mg (65 mg of elemental iron) tablet Take 1 tablet (325 mg total) by mouth dailywith breakfast Kanu Waterman MD magnesium phosphate, bulk, powder Take 1 tablet by mouth every morning Kanu Waterman MD meloxicam (MOBIC) 15 mg tablet Take 1 tablet (15 mg total) by mouth daily 03/17/24 Laureano Lantigua MD methylphenidate HCl (RITALIN) 5 mg tablet Take 1 tablet (5 mg total) by mouth daily with lunch 08/28/23 Kanu Waterman MD oxyCODONE-acetaminophen (PERCOCET) 5-325 mg per tablet Take 1 tablet by mouth every 4 (four) hours as needed for pain 01/22/24 Laureano Lantigua MD progesterone (PROMETRIUM) 200 mg capsule One pill vaginally every night for 12 days every 3 months 02/16/24 Tony Washington MD traZODone (DESYREL) 50 mg tablet Take 1 tablet (50 mg total) by mouth nightly 02/03/23 Kanu Waterman MD Pertinent physical exam: GEN: NAD HEART: RRR LUNGS: Clear bilaterally. Normal respiratory effort. Vitals: Reviewed Labs: Imaging: Reviewed Assessment and Plan: 1) Proceed with image guided lumbar puncture / myelogram. Benefits, risks and alternatives of procedure have been discussed with the patient and/or their community service representative. All questions answered and they agree to proceed. documented in this encounter Plan of Treatment Not on file documented as of this encounter Procedures Procedure Name Priority Date/Time Associated Diagnosis Comments MYELOGRAM LUMBAR Schedule Routine, Read Routine (OP Routine) 03/19/2024 9:41 AM CDT Lumbar radiculopathy Lumbar back pain History of spinal fusion documented in this encounter Results * Myelogram Lumbar (03/19/2024 9:41 AM CDT) [...] MD IMG IR PROCEDURES Abril l Result documented in this encounter Visit Diagnoses Diagnosis Lumbar radiculopathy Thoracic or lumbosacral neuritis or radiculitis, unspecified Lumbar back pain Lumbago History of spinal fusion documented in this encounter Administered Medications Inactive Administered Medications - up to 3 most recent administrations Medication Order MAR Action Action Date Dose Rate Site iohexoL (OMNIPAQUE) 180 mg iodine/mL injection solution As needed, Starting on Fri03/19/24 at 0940, Intra-Op Given 03/19/2024 9:40 AM CDT 10 mL lidocaine (PF) (XYLOCAINE) 10 mg/mL (1 %) preservative free injection As needed, Starting on Fri03/19/24 at 0921, Intra-Procedure (IR), Indications: Administration of Local AnesthesiaIndications:Administratio n of Local Anesthesia Given 03/19/2024 9:21 AM CDT 5 mL Back documented in this encounter Orders Discharge Count Last Ordered Date First Orde red Date DISCHARGE PATIENT 1 03/19/2024 documented in this encounter Care Teams Strawhat Blocking Operator Relationship Specialty Start Date End Date Laureano Lantigua MD [address] [place] [address] PCP - General Internal Medicine 07/30/18 Tony Washington MD [address] [facility] [address] Tongue Stitcher Obstetrics and Gynecology 11/16/18 Anahy Rosales MD [address] [facility] [place] [address] Referring Physician Psychiatry 11/16/18 Nathalia Rodas, PT Physical Therapist Physical Therapy 02/14/23 documented as of this encounter
--- OUTSIDE RECORDS SUMMARY | 2024-11-15 03:22 | XMS_ITS | Encounter Summary ---
Author Organization [facility] Healthcare Address [address] [place] [address] Care Team Providers Care Fish Peddler Name Role Phone Laureano Lantigua MD Primary Care Provider [phone] Tony Washington MD Unavailable [phone] Anahy Rosales MD Unavailable [phone] Nathalia Rodas PT Unavailable Unavailable Encounter Details Date Type Department Care Team (Late st Contact Info) Description 05/06/2024 Telephone [facility] [address] [place] [address] Laureano Lantigua MD [address] [facility] [address] [place] [address] Social History Tobacco Use Types Packs/Day Years [...] on file Legal Sex Female 1:37 AM 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 Gender Identity Female 10/03/2023 10:05 AM BRADLEY 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 Sexual Orientation Straight 10/03/2023 10 :05 AM BRADLEY 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 documented as of this encounter Ordered Prescriptions Prescription Sig Dispense Quantity Refills Last Filled Start Date End Date sucralfate (CARAFATE) suspension 1 gram/10 mL Take 5 mL (0.5 g total) by mouth 4 (four) times a day 1800 mL 05/07/2024 10/12/2024 sucralfate (CARAFATE) suspension 1 gram/10 mL Take 5 mL (0.5 g total) by mouth 4 (four) times a day 600 mL 05/07/2024 05/07/2024 meloxicam (MOBIC) 15 mg tablet Take 1 tablet (15 mg total) by mouth daily 90 tablet 05/06/2024 08/02/2024 documented in this encounter Miscellaneous Notes * Addendum Note - Tatyana Peacock RN - 05/07/2024 1:19 PM CDTAddended by: TATYANA PEACOCK on: 05/07/2024 01:19 PM Modules accepted: Orders * Telephone Encounter - Tatyana Peacock RN - 05/07/2024 1:15 PM CDT Sucralfate resent with a 90 day supply per pt request. * Telephone Encounter - Tatyana Peacock RN - 05/07/2024 11:52 AM CDT Mobic sent yesterday. Sucralfate sent today. * Telephone Encounter - Laureano Lantigua MD - 05/07/2024 10:26 AM CDT LIQUID SUCRALFATE IS OK * Telephone Encounter - Luz Tong RN - 05/06/2024 3:47 PM CDT May 06, 2024 Finesse Trujillo [facility] Clinical Pool (supporting Laureano Lantigua MD) 05/06/24 10:35 AM Good morning Rhina Valente. I am at the end of my Meloxicam prescription. If you are going to refill it, can you please also call me in sucralfate suspension liquid for my stomach. As you remember I ama bariatric patient and had prior stomach issues. I am not suppose to take anti-inflammatories senior living. The medication has a tendency to make me sick to my stomach even when taken with food. I throw up at times, and or just refrain from eating at times due to stomach upset from it. I have taken carafate liquid in the past and it works well for me. I do think the anti inflammatory has helped over all but I do still have bouts of serious pain on some days that interfere with me being able to wor k or get out of bed. Is there any other type of pain med you can consider besides the Percocet, Vicodin or tramadol that could help for those days. I am finishing up another 6 plus weeks of physical therapy. At times I am not able to progress due to the pain though. Thanks. TOTLQ: Called patient and notified her of previous message and she voiced understanding. Patient said she still has some serious pain on some days which makes it difficult to work and she misses hours of work. She has continued to go to PT which has helped her but has some days they cannot do much with her due to the pain. She takes Tylenol Arthritis 1-2 times a day and also the Mobic and some days are worse than others with the pain. She also applies heat and ice. Patient had asked if there is anything else for pain to use-see patient message. Also patient is requesting liquid sucralfate-please advise on dosage. Please advise * Telephone Encounter - Laureano Lantigua MD - 05/06/2024 1:57 PM CDT SEE ADVICE MOBIC 15 MG PO QDAY #90 OK TO FILL SUCRALFATE \ documented in this encounter Plan of Treatment Not on file documented as of this encounter Visit Diagnoses Not on filedocumented in this encounter Discontinued Medications Medication Sig Discontinue Reason Start Date End Da te meloxicam (MOBIC) 15 mg tablet Take 1 tablet (15 mg total) by mouth daily Reorder 03/17/2024 05/06/2024 sucralfate (CARAFATE) suspension 1 gram/10 mL Take 5 mL (0.5 g total) by mouth 4 (four) times a day Reorder 05/07/2024 05/07/2024 documented as of this encounter Care Teams Fish Peddler Relationship Specialty Start Date End Date Laureano Lantigua MD [address] [place] [address] PCP - General Internal Medicine 07/30/18 Tony Washington MD [address] [facility] [place] [address] Boiler Installer Obstetrics and Gynecology 11/16/18 Anahy Rosales MD [address] [place] [address] [place] [address] Referring Physician Psychiatry 11/16/18 Nathalia Rodas, PT Physical Therapist Physical Therapy 02/14/23 documented as of this encounter
--- OUTSIDE RECORDS SUMMARY | 2024-11-15 03:22 | XMS_ITS | Encounter Summary ---
Author Organization [facility] Healthcare Address [address] [place] [address] Care Team Providers Care Hospitalist Medical Director Name Role Phone Laureano Lantigua MD Primary Care Provider [phone] Tony Washington MD Unavailable [phone] Anahy Rosales MD Unavailable [phone] Nathalia Rodas PT Unavailable Unavailable Reason for Referral * Consultation (Routine) - Authorized Specialty Diagnoses / Procedures Referred By Contмария t Referred To Contact Orthopedic Surgery Diagnoses Lumbar back pain Laureano Lantigua MD [address] [place] [address] Phone: tel: fax: Anya Kapoor MD [address] [facility] [address] [place] [address] Phone: tel: fax: Referral ID Status Reason Start Date Expiration Date Visits Requested Visits Authorized [id number] Authorized Specialty Services Required 02/25/2024 03/26/2025 12 12 Question Answer Please select the performing region: [facility] (All Locations) [167] To provider: ANYA KAPOOR [[id number]] # of visits: 12 Comments MRI Lumbar spine shows spinal stenosis b/l in the non operative area back pain Encounter Details Date Type Department Care Team (Late st Contact Info) Description 02/25/2024 Telephone [facility] [address] [place] [id number] Neftali Chavez, RN Social History Tobacco Use Types Packs/Day [...] on file Legal Sex Female 1:37 AM 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 Previous L5-S1 posterior instrumentation. The surgical spinal canal is patent. 2. [place] degenerative changes of the non operative levels as described. The spinal canal stenosis is most noticeable at L2-L3 and L4-L5. 3. Varying degrees of bilateral neural foraminal stenosis and additional findings as above. Pt has no further questions @ this time * Telephone Encounter - Kenya Williamson - 02/25/2024 9:34 AM CDT Referral has been placed * Telephone Encounter - Neftali Chavez RN - 02/25/2024 9:26 AM CDT Spoke to pt et informed of below TLQ result message Pt voices understand et is agreeable to below recommend refer Pt has no further questions @ this time Admin-see below Refer to Dr Emelia Mtz Dx-MRI Lumbar Spine shows spinal stenosis B/L in the non operative area Back pain * Telephone Encounter - Neftali Chavez RN - 02/25/2024 9:22 AM CDT ----- Message from Laureano Lantigua MD sent at 02/25/2024 8:53 AM CDT ----- MRI of the L spine in the computer Lumbar spinal stenosis B/L in the non operative area please refer patient to dr emelia hurt mtz( pts preference ) documented in this encounter Plan of Treatment Scheduled Referrals Name Type Priority Associated Diagnoses Order Schedule Ambulatory referral to Orthopedic Surgery Outpatient Referral Routine Lumbar back pain Expected: 02/25/2024 (Approximate), Expires: 02/24/2025 documented as of this encounter Visit Diagnoses Diagnosis Lumbar back pain- Primary Lumbago documented in this encounter Care Teams Hospitalist Medical Director Relationship Specialty Start Date End Date Laureano Lantigua MD [address] [place] [address] PCP - General Internal Medicine 07/30/18 Tony Washington MD [address] [place] [address] [address] [place] [address] Family Support Specialist Obstetrics and Gynecology 11/16/18 Anahy Rosales MD [address] [place] [address] [place] [address] Referring Physician Psychiatry 11/16/18 Nathalia Rodas, PT Physical Therapist Physical Therapy 02/14/23 documented as of this encounter
--- OUTSIDE RECORDS SUMMARY | 2024-11-15 03:23 | XMS_ITS | Encounter Summary ---
Author Organization [facility] Healthcare Address [address] [place] [address] Care Team Providers Care Machine Packaging Technician Name Role Phone Laureano Lantigua MD Primary Care Provider [phone] Tony Washington MD Unavailable Anahy Rosales MD Unavailable [phone] Nathalia Rodas PT Unavailable Unavailable Reason for Visit * Reason Comments PT Progress Note * Consultation (Routine) - Closed Specialty Diagnoses / Procedures Referred By Contмария t Referred To Contact Physical Therapy Diagnoses Left hip pain Cecilia Conn MD [address] [facility] [address] [place] [address] Phone: tel: fax: External Order Referral ID Status Reason Start Date Expiration Date V isits Requested Visits Authorized [id number] Closed Specialty Services Required 10/02/2023 10/31/2024 24 24 Encounter Details Date Type Department Care Team (Late st Contact Info) Description 01/02/2024 7:00 AM GENERAL WAREHOUSE ASSOCIATE Therapy [facility] [place] [address] Alfredo Rodríguez, PT Left hip pain (Primary Dx); Encounter for other orthopedic aftercare Social History [...] on file Legal Sex Female 1:37 AM GENERAL WAREHOUSE ASSOCIATE Gender Identity Female 10/03/2023 10:05 AM GENERAL WAREHOUSE ASSOCIATE Sexual Orientation Straight 10/03/2023 10 :05 AM GENERAL WAREHOUSE ASSOCIATE documented as of this encounter Progress Notes * Alfredo Rodríguez, PT - 01/02/2024 7:00 AM CST Physical Therapy Progress Note 01/02/24 Finesse Ramirez 1970, female [id number] Diagnosis Plan 1. Left hip pain 2. Encounter for other orthopedic aftercare Cecilia Conn MD [address] [facility] [address] [place] [address] Subjective: Finesse states she has been working many hours and doing the physical work. She has most pain in the lateral hip and buttock on the left. Left leg has been very tight and she struggles to get down to the floor to perform her stretches or to pick anything up. She uses a cane when needed. She experiences hip/groin pain about 25% of the time and it depends on how much time she spends walking. 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 She likes to workout in the gym. Current Functional Level: She is currently working on restriction but she spends most of her time standing/walking in the field in steel-toe boots. She avoids lifting and bending but could spend 10-12 hours on her feet some days. Objective Lower Extremity Functional Scale (LEFS): 25/80 initial, 47/80 current Gait: ambulates in clinic without AD; decreased weight acceptance through L LE with foot flat WB and absent heel strike on L. ROM: Left Right Hip Flexion AROM: 110 PROM: 120 WNL Hip Extension Hip External Rotation PROM 35 45 Hip Internal Rotation PROM: 25 27 Hip Abduction PROM: 30 WNL Observations: noted compensations with lumbar spine with hip internal and external rotation MMT: hip flexion 5/5 bilat. Hip ER 5/5 bilat. Hip abduction 4/5 L, 5/5 R. Treatment Provided: PROM hip extension, IR/ER prone - over 2 pillows Inferior glide joint mob (in supine with 90 deg hip flexion) STM posterior hip and lumbar/SIJ Quad rock and janet pose stretch. Cat/cow Bridges blue TB Ab brace with low ab level 1 Clamshells green TB Sitting hip ER/IR green Planks - on hands* Side plank taps* Side steps and retro side steps red TB* Mini squat* Wall squats with SB x15 SL balance - foam* Captain Merchant 5x10 Step to lunge for hip flexor stretch Standing hip flexion - back against wall Gait training for hip extension/flexion in appropriate cycles. Octane x7 min first Gait training of use of crutch or cane in R UE to offset weight from L LE* Assessment: Finesse continues to be limited by chronic lower back pain and left- sided sciatica. Hip ROM is generally WNL except hip extension; clinical strength is good; she responds well to gentle strengthening and demonstrates good pelvic control with single leg standing. Functional outcome scores indicate clinically significant improvement in standing, walking, moving around. Patient is definitely struggling with chronic pain and the emotional toll. Her work duties also are a large stressor atthis time. Goals LTG 1:: Pt will improve hip AROM to equal of R LE. - GOAL MET LTG 2:: Pt will demonstrate 5/5 hip strength. - MET EXCEPT ABDUCTION 4+/5 LTG 3:: Pt will demonstrate gait pattern without significant impairments. - ONGOING, ANTALGIC LTG 4:: Pt will report LEFS 50/80 to indicate improved functional ability. Plan: Pt returns to Dr. Bhatia on 01/07. Will await additional orders at this time. Start Time: 704 End Time: 799 Alfreod Rodríguez PT, MPT, COMT RAL WAREHOUSE ASSOCIATE documented in this encounter Plan of Treatment Not on file documented as of this encounter Visit Diagnoses Diagnosis Left hip pain- Primary Pain in joint, pelvic region and thigh Encounter for other orthopedic aftercare documented in this encounter Care Teams Machine Packaging Technician Relationship Specialty Start Date End Date Laureano Lantigua MD [address] [place] [address] PCP - General Internal Medicine 07/30/18 Tony Washington MD [address] [facility] [place] [address] Airplane Tube Builder Obstetrics and Gynecology 11/16/18 Anahy Rosales MD [address] [facility] [place] [address] Referring Physician Psychiatry 11/16/18 Nathalia Rodas, HENRY Physical Therapist Physical Therapy 02/14/23 documented as of this encounter
--- OUTSIDE RECORDS SUMMARY | 2024-11-15 03:23 | XMS_ITS | Encounter Summary ---
Author Organization [facility] Healthcare Address [address] [place] [address] Care Team Providers Care Equipment Maintenance Technician Name Role Phone Laureano Lantigua MD Primary Care Provider [phone] Tony Washington MD Unavailable [phone] Anahy Rosales MD Unavailable [phone] Nathalia Rodas PT Unavailable Unavailable Reason for Visit * Reason Comments PT Treatment * Consultation (Routine) - Closed Specialty Diagnoses / Procedures Referred By Contмария t Referred To Contact Physical Therapy Diagnoses Left hip pain Cecilia Conn MD [address] [facility] [address] [place] [address] Phone: tel: fax: External Order Referral ID Status Reason Start Date Expiration Date V isits Requested Visits Authorized [id number] Closed Specialty Services Required 10/02/2023 10/31/2024 24 24 Encounter Details Date Type Department Care Team (Late st Contact Info) Description 11/24/2023 7:00 AM WIRE STITCHER OPERATOR Therapy [facility] [place] [address] Nathalia Rodas, PT Left hip pain (Primary Dx); Encounter [...] on file Legal Sex Female 1:37 AM WIRE STITCHER OPERATOR Gender Identity Female 10/03/2023 10:05 AM WIRE STITCHER OPERATOR Sexual Orientation Straight 10/03/2023 10 :05 AM WIRE STITCHER OPERATOR documented as of this encounter Progress Notes * Nathalia Rodas, PT - 11/24/2023 7:00 AM CST Physical Therapy Visit 11/24/23 Finesse Ramirez 1970, female [id number] Diagnosis Plan 1. Left hip pain 2. Encounter for other orthopedic aftercare Cecilia Conn MD [address] [facility] [address] [place] [address] Subjective: Patient was in bed all weekend due to pain. It helped but she does not like having to stay in bed. Current pain 12/27. Objective: See treatment provided. DOS: 10/07/23 Treatment Provided: PROM hip flexion, ER, IR, circumduction Inferior glide joint mob (in supine with 90 deg hip flexion) STM posterior hip Bridges Clamshells Quad rock Cat Cow Side plank taps* Side steps Retro walking Octane x10 min Gait training of use of crutch or cane in R UE to offset weight from L LE Assessment: Tolerated treatment fairly well. Improved gait pattern walking into clinie with slight limp noted. Plan: Cont per POC progressing per protocol. Start Time: 712 (pt arrived late) End Time: 741 Nathalia Rodas PT, DPT, COMT STITCHER OPERATOR documented in this encounter Plan of Treatment Not on file documented as of this encounter Visit Diagnoses Diagnosis Left hip pain- Primary Pain in joint, pelvic region and thigh Encounter for other orthopedic aftercare documented in this encounter Care Teams Equipment Maintenance Technician Relationship Specialty Start Date End Date Laureano Lantigua MD [address] [place] [address] PCP - General Internal Medicine 07/30/18 Tony Washington MD [address] [place] [address] [address] [place] [address] School Plant Consultant Obstetrics and Gynecology 11/16/18 Anahy Rosales MD [address] [facility] [address] [place] [address] Referring Physician Psychiatry 11/16/18 Nathalia Rodas PT Physical Therapist Physical Therapy 02/14/23 documented as of this encounter
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
--- OUTSIDE RECORDS SUMMARY | 2024-11-15 03:23 | XMS_ITS | Encounter Summary ---
Author Organization [facility] Address [address] [place] [address] Phone Care Team Providers Care Internal Wholesaler Name Role Phone Laureano Lantigua MD Primary Care Provider [phone] Tony Washington MD Unavailable [phone] Anahy Rosales MD Unavailable [phone] Nathalia Rodas PT Unavailable Unavailable Reason for Referral * Consultation (Routine) - Closed Specialty Diagnoses / Procedures Referred By Contac t Referred To Contact Physical Therapy Diagnoses Left hip pain Cecilia Conn MD [address] [facility] [place] [address] Phone: tel: fax: External Order Referral ID Status Reason Start Date Expiration Date V isits Requested Visits Authorized [id number] Closed Specialty Services Required 10/02/2023 10/31/2024 24 24 Question Answer PTRFR PT Evaluate and Treat Therapy options discussed with patient? Yes Location provided for therapy services is: Patient requested/Patient preferred Please select the performing region: External Order [171] # of visits: 24 Comments Physical Therapy Referral- TO BEGIN PT AT 2 WEEKS POST-OP PATIENT'S NAME: Finesse Ramirez : 1970 DIAGNOSIS: Left Hip Arthroscopy, Labral repair, Osteochondroplasty DATE OF SURGERY: 10/06/23 NOV: 11/18/23 DURATION OF THERAPY: 2-3 times/week for 12 weeks. Evaluate and Treat Please follow PT protocol that was given to patient on DOS. Call with questions, or for a copy of the protocol. Weightbearing Status: FFWB with crutches for two weeks post op, then advance to weight bearing as tolerated Strengthening Gait Training Home Exercise Program Gentle ROM/strengthening exercises 0-90 degrees all within the comfort level of the patient's hip Do not push the ROM Stationary bike as tolerated Restrictions: Avoid internal/external hip rotation x 6 weeks post-op. Avoid excessive ROM (hip extension, flexion) x 6 weeks post-op. For all PT reports that require a signature-please fax to [phone] Your Physical Therapy Provider may complete the pre-certification process on your behalf. If you need assistance from the [facility] Orthopedic Pre-Certification office, please call [phone] and a cps team lead will assist you. Cecilia Bhatia MD [place] License # [id number] ZINE EDITOR Encounter Details Date Type Department Care Team (Late st Contact Info) Description 10/02/2023 Orders Only [facility] Orthopaedic Surgery [address] [place] [address] Medical Office Building [address] [place] [address] Cecilia Conn MD [address] [facility] [address] [place] [address] Left hip pain (Primary Dx) Social History [...] staff should administer the PHQ-9) 0 01/28/2023 Comments No Sex and Gender Information Value Date Recorded Sex Assigned at Not on file Legal Sex Female 1:37 AM MAGAZINE EDITOR Gender Identity Female 10/03/2023 10:05 AM MAGAZINE EDITOR Sexual Orientation Straight 10/03/2023 10 :05 AM MAGAZINE EDITOR documented as of this encounter Plan of Treatment Scheduled Referrals Name Type Priority Associated Diagnoses Order Schedule Ambulatory referral order to Physical Therapy - Outpatient Referral Routine Left hip pain Expected: 10/16/2023 (Approximate), Expires: 10/02/2024 documented as of this encounter Visit Diagnoses Diagnosis Left hip pain- Primary Pain in joint, pelvic region and thigh documented in this encounter Care Teams Internal Wholesaler Relationship Specialty Start Date End Date Laureano Lantigua MD [address] [place], [place] [address] [address] PCP - General Internal Medicine 07/30/18 Tony Washington MD [address] [place] [address] [address] [place] [address] Medical Nurse Obstetrics and Gynecology 11/16/18 Anahy Rosales MD [address] [place] [address] [place] [address] Referring Physician Psychiatry 11/16/18 Nathalia Rodas, PT Physical Therapist Physical Therapy 02/14/23 documented as of this encounter
--- OUTSIDE RECORDS SUMMARY | 2024-11-15 03:23 | XMS_ITS | Encounter Summary ---
Author Organization [facility] Healthcare Address [address] [place] [address] Care Team Providers Care Jet Dyeing Machine Tender Name Role Phone Laureano Lantigua MD Primary Care Provider [phone] Tony Washington MD Unavailable [phone] Anahy Rosales MD Unavailable [phone] Nathalia Rodas PT Unavailable Unavailable Reason for Visit * Reason Comments PT Treatment * Consultation (Routine) - Closed Specialty Diagnoses / Procedures Referred By Contмария t Referred To Contact Physical Therapy Diagnoses Left hip pain Cecilia Conn MD [address] [facility] [address] [place] [address] Phone: tel: fax: External Order Referral ID Status Reason Start Date Expiration Date V isits Requested Visits Authorized [id number] Closed Specialty Services Required 10/02/2023 10/31/2024 24 24 Encounter Details Date Type Department Care Team (Late st Contact Info) Description 12/31/2023 7:00 AM PUBLIC POLICY MEDIATOR Therapy [facility] [place] [address] Alfredo Rodríguez, PT Left hip pain (Primary Dx); Encounter for other orthopedic aftercare; Unilateral primary osteoarthritis, left hip Social History Tobacco Use Types Packs/Day Years [...] on file Legal Sex Female 1:37 AM PUBLIC POLICY MEDIATOR Gender Identity Female 10/03/2023 10:05 AM PUBLIC POLICY MEDIATOR Sexual Orientation Straight 10/03/2023 10 :05 AM PUBLIC POLICY MEDIATOR documented as of this encounter Progress Notes * Alfredo Rodríguez, PT - 12/31/2023 7:00 AM CST Physical Therapy Visit 12/31/23 Finesse Ramirez 1970, female [id number] Diagnosis Plan 1. Left hip pain 2. Encounter for other orthopedic aftercare 3. Unilateral primary osteoarthritis, left hip Cecilia Conn MD [address] [facility] [address] [place] [address] Subjective: Finesse states she has been working many hours and doing the physical work. She has most pain in the lateral hip and buttock on the left. Left leg has been very tight and she struggles to get down to the floor to perform her stretches. She uses a cane periodically. Objective: See treatment provided. DOS: 10/07/23 Treatment Provided: PROM hip extension, IR/ER prone - over 2 pillows Inferior glide joint mob (in supine with 90 deg hip flexion) STM posterior hip and lumbar/SIJ Quad rock and janet pose stretch. Cat/cow Bridges blue TB Ab brace with low ab level 1 Clamshells green TB Sitting hip ER/IR Planks - on hands* Side plank taps* Side steps and retro side steps red TB Mini squats Wall squats with SB x15 SL balance - foam Captain Mayur 5x10 Split lunge x10 each* Octane x7 min first Gait training of use of crutch or cane in R UE to offset weight from L LE* Assessment: Finesse continues to be limited by back pain and sciatica. ROM is generally WNL; she responds well to gentle strengthening and demonstrates good pelvic control with single leg standing. Added lower abdominal strengthening today and she required cues to maintain pelvic position. Plan: Pt returns to MD on 01/07. Send progress note. Progress interventions as tolerated. Start Time: 714 End Time: 799 Alfredo Rodríguez PT, MPT, COMT IC POLICY MEDIATOR documented in this encounter Plan of Treatment Not on file documented as of this encounter Visit Diagnoses Diagnosis Left hip pain- Primary Pain in joint, pelvic region and thigh Encounter for other orthopedic aftercare Unilateral primary osteoarthritis, left hip documented in this encounter Care Teams Jet Dyeing Machine Tender Relationship Specialty Start Date End Date Laureano Lantigua MD [address] [place] [address] PCP - General Internal Medicine 07/30/18 Tony Washington MD [address] [place] [address] [place] [address] Ferry Operator Obstetrics and Gynecology 11/16/18 Anahy Rosales MD [address] [place] [address] [place] [address] Referring Physician Psychiatry 11/16/18 Nathalia Rodas, PT Physical Therapist Physical Therapy 02/14/23 documented as of this encounter
--- OUTSIDE RECORDS SUMMARY | 2024-11-15 03:23 | XMS_ITS | Encounter Summary ---
Author Organization [facility] Healthcare Address [address] [place] [address] Care Team Providers Care Hat Liner Name Role Phone Laureano Lantigua MD Primary Care Provider [phone] Tony Washington MD Unavailable [phone] Anahy Rosales MD Unavailable [phone] Nathalia Rodas PT Unavailable Unavailable Reason for Visit * Reason Comments PT Treatment * Consultation (Routine) - Closed Specialty Diagnoses / Procedures Referred By Contмария t Referred To Contact Physical Therapy Diagnoses Left hip pain Cecilia Conn MD [address] [facility] [address] [place] [address] Phone: tel: fax: External Order Referral ID Status Reason Start Date Expiration Date V isits Requested Visits Authorized [id number] Closed Specialty Services Required 10/02/2023 10/31/2024 24 24 Encounter Details Date Type Department Care Team (Late st Contact Info) Description 12/09/2023 4:00 PM MUSIC ARTIST Therapy [facility] [place] [address] Nathalia Rodas, PT Left hip pain (Primary [...] on file Legal Sex Female 1:37 AM MUSIC ARTIST Gender Identity Female 10/03/2023 10:05 AM MUSIC ARTIST Sexual Orientation Straight 10/03/2023 10 :05 AM MUSIC ARTIST documented as of this encounter Progress Notes * Nathalia Rodas, PT - 12/09/2023 4:00 PM CST Physical Therapy Visit 12/09/23 Finesse Ramirez 1970, female [id number] Diagnosis Plan 1. Left hip pain 2. Encounter for other orthopedic aftercare Cecilia Conn MD [address] [facility] [address] [place] [address] Subjective: Finesse states she was feeling pretty decent up until today. She had to walk for work butpain is still only 3/10. Objective: See treatment provided. Gait: ambulates without AD; on low pain days, minimal to no gait impairment; on higher pain days, decreased weight acceptance and L trunk lean ROM: Left Right Hip Flexion AROM: 110 PROM: 120 WNL Hip Extension Hip External Rotation AROM 35 WNL Hip Internal Rotation AROM: 20 WNL Hip Abduction AROM: 20 PROM: 35 WNL Observations: noted compensations with lumbar spine with hip internal and external rotation DOS: 10/07/23 Treatment Provided: PROM hip flexion, ER, IR, circumduction Inferior glide joint mob (in supine with 90 deg hip flexion) STM posterior hip Bridges red TB Clamshells red TB Quad rock Cat Cow Side plank taps Side steps red TB Retro walking Mini squats Wall squats with SB SL balance - firm surface Rockerboard fwd/bkwd Split lunge x10 each Octane x5 min Gait training of use of crutch or cane in R UE to offset weight from L LE* Assessment: Finesse demonstrates good tolerance today, with ability to progress to single leg activities without issues. Goals: ALL ONGOING LTG 1:: Pt will improve hip AROM to equal of R LE. LTG 2:: Pt will demonstrate 5/5 hip strength. LTG 3:: Pt will demonstrate gait pattern without significant impairments. LTG 4:: Pt will report LEFS 50/80 to indicate improved functional ability. Plan: Cont per POC progressing per protocol. Start Time: 1605 End Time: 1645 Nathalia Rodas PT, DPT, COMT C ARTIST documented in this encounter Plan of Treatment Not on file documented as of this encounter Visit Diagnoses Diagnosis Left hip pain- Primary Pain in joint, pelvic region and thigh Encounter for other orthopedic aftercare documented in this encounter Care Teams Hat Liner Relationship Specialty Start Date End Date Laureano Lantigua MD [address] [place] [address] PCP - General Internal Medicine 07/30/18 Tony Washington MD [address] [place] [address] [place] [address] Insulation Blower Obstetrics and Gynecology 11/16/18 Anahy Rosales MD [address] [place] [address] [place] [address] Referring Physician Psychiatry 11/16/18 Nathalia Rodas PT Physical Therapist Physical Therapy 02/14/23 documented as of this encounter
--- OUTSIDE RECORDS SUMMARY | 2024-11-15 03:23 | XMS_ITS | Encounter Summary ---
Author Organization [facility] Healthcare Address [address] [place] [address] Care Team Providers Care Government Employee Name Role Phone Laureano Lantigua MD Primary Care Provider + [phone] Tony Washington MD Unavailable [phone] Anahy Rosales MD Unavailable [phone] Nathalia Rodas PT Unavailable Unavailable Reason for Visit * Auth/Cert (Routine) Specialty Diagnoses / Procedures Referred By Contac t Referred To Contact Diagnoses Tear of left acetabular labrum, initial encounter Tear of left acetabular labrum, initial encounter [S73.192A] Procedures [place] UNLISTED PROCEDURE PELVIS/HIP JOINT ARTHROSCOPY HIP - LABRAL REPAIR - OSTEOCHONDROPLASTY Referral ID Status Reason Start Date Expiration Date Visits Re quested Visits Authorized [id number] 1 1 Encounter Details Date Type Department Care Team (Late st Contact Info) Description 10/07/2023 8:48 AM ABLE BODIED WATCHMAN Anesthesia Event [facility] [address] [place] [id number] Donald Grant MD [address] [facility] [id number] [place] [address] Aimee Sanchez NP [address] [facility] [address] [place] [address] Anesthesia Record Procedure Summary Procedure Name Responsible Anesthesiologist Anesthesia Start Time Anesthesia Stop Time LEFT HIP ARTHROSCOPY - OSTEOCHONDROPLASTY (Left: Hip) Donald Grant MD 10/07/23 0848 10/07/23 1025 Events Date Time Event Comment 10/07/2023 0751 AN Equip Check 0806 0845 In Room 0848 An Start 0849 An Start Data 0852 An Induction The patient was reevaluated immediately before moderate or deep sedation use and before anesthesia induction. 0854 An LMA 0901 Anesthesia Ready 0912 Proc Start 0915 Incision Start 1016 Airway Removed 1018 an stop data 1020 Proc Fin 1020 Out of Room 1025 Handoff to RN I completed my handoff to the receiving nurse during which we: 1. Patient identified 2. Responsible provider identified 3. Pertinent medical history reviewed 4. Procedure type and surgical course discussed 5. Intraoperative anesthetic management and any significant issues discussed 6. Expectations and concerns for postop period discussed 7. Questions solicited from receiving nurse 8. Patient disposition at the time of handoff: No value filed. 1025 An Stop Meds Name Total midazolam 2 mg/2 mL 2 mg fentaNYL PF 100 mcg lidocaine 2 % 100 mg propofol 200 mg ondansetron PF 4 mg ketorolac 30 mg dexamethasone 4 mg/mL 8 mg ceFAZolin (ANCEF) 2,000 mg/50 mL in dext shira (premix) 2,000 mg 2,000 mg diphenhydrAMINE 12.5 mg Lactated Ringer's (LR) infusion 1,100 mL * Agents Name O2 N2O Air Sevoflurane Inspired Sevoflurane * Blood No blood administrations on file. Lines, Drains, and Airways Type Details Placement Removal Peripheral IV Placement Date: 10/07/23; Placement Time: 0732; Catheter Size: 20 G; Orientation: Posterior, Right; Location: Hand; Site Prep: Chlorhexidine; Technique: Anatomical landmarks; Inserted by: Liz Garcia Rn; Insertion Attempts: 1; Patient Tolerance: Tolerated well; Removal Date: 10/07/23; Removal Time: 1148; Removal Reason: Discharge 10/07/23 0732 by Shira Garcia RN 10/07/23 1148 by Annamaria Farrell RN Supraglottic Airway Placement Date: 10/07/23; Placement Time: 904 (created via procedure documentation); Mask Ventilation: 0; Insertion Attempts: 1; Comments: Gentle placement of Igel LMA orally and without difficulty.; Removal Date: 10/07/23; Removal Time: 1016 10/07/23 09 by Joycelyn Camacho CRNA 10/07/23 1016 by Joycelyn Camacho CRNA RETIRED Surgical Site 10/07/23; 09; Le ft; Hip/trochanter; 10/07/23; 1148; Discharge 10/07/23 0928 by Alma Talbot RN 10/07/23 1148 by Annamaria Farrell RN documented in this encounter Social History Tobacco [...] on file Legal Sex Female 1:37 AM ABLE BODIED WATCHMAN Gender Identity Female 10/03/2023 10:05 AM ABLE BODIED WATCHMAN Sexual Orientation Straight 10/03/2023 10 :05 AM ABLE BODIED WATCHMAN documented as of this encounter OR Notes * Anesthesia Postprocedure Evaluation - Donald Grant MD - 10/07/2023 12:01 PM CST Patient: Finesse Ramirez Procedure Summary Date: 10/07/23 Room / Location: [facility]PER[facility] / [facility] Anesthesia Start: 0848 Anesthesia Stop: 1025 Procedure: LEFT HIP ARTHROSCOPY - OSTEOCHONDROPLASTY (Left: Hip) Diagnosis: Tear of left acetabular labrum, initial encounter (Tear of left acetabular labrum, initial encounter [S73.192A]) Providers: Cecilia Conn MD Responsible Provider: Donald Grant MD Anesthesia Type: general ASA Status: 2 Anesthesia Type: general Last vitals BP 128/71 Pulse 80 Temp 36.6 ??C (97.9 ??F) (Temporal) Resp 18 SpO2 96% Anesthesia Post Evaluation Patient location during evaluation: PACU Patient participation: complete - patient participated Level of consciousness: fully awake Pain management: satisfactory to patient Airway patency: adequate Evidence of recall: no Cardiovascular status: hemodynamically stable Respiratory status: non-labored ventilation Hydration status: stable Pt is: normothermic Nausea/Vomiting status: none No notable events documented. BODIED WATCHMAN * Anesthesia Procedure Notes - Joycelyn Camacho CRNA - 10/07/2023 9:04 AM ABLE BODIED WATCHMAN Associated Order(s): Airway Airway Patient location: pre-op Urgency: elective Indications for airway management: anesthesia Difficult airway: no Staff: Placed by: COAL WASHER TENDER: Joycelyn Camacho CRNA Emergent airway documentation: Risks and benefits discussed: yes Consent obtained: yes Consent given by: patient Airway prep: Preoxygenated: yes Patient position: sniffing Mask difficulty assessment: 0 - not attempted Spontaneous ventilation during airway: absent Sedation level during airway: deep Final airway details: Final airway type: supraglottic airway Final supraglottic airway: IGel Number of attempts: 1 Additional comments: Gentle placement of Igel LMA orally and without difficulty. BODIED WATCHMAN * Anesthesia Preprocedure Evaluation - Donald Grant MD - 09/26/2023 12:36 PM CST Images from the original note were not included. [facility] Preoperative Assessment and Planning Preoperative Evaluation Record Evaluation type/location: [facility] procedure [facility] OR Date: 09/26/23 NOTE: This note represents a preoperative evaluation initiated via telephone interview. NO PHYSICALEXAM was performed at the time of initial assessment. A physical exam may be added to this note anddocumented below. Anesthesia Evaluation Procedure(s): ARTHROSCOPY HIP - LABRAL REPAIR - OSTEOCHONDROPLASTY Pre-Op Diagnosis Codes: * Tear of left acetabular labrum, initial encounter [S73.192A] HISTORY HPI Finesse Ramirez is a 53 y/o female with a past medical history of anxiety/depression, HTN (off medication s/p gastric sleeve), asthma, ALONZO, and OA who is being evaluated prior to undergoing left arthroscopic labral repair Past Medical History Neurological + Psychiatric history - anxiety and depression Pertinent negatives: neuromuscular disease; CVA/stroke and TIA Cardiovascular + Hypertension (off medications s/p gastric sleeve) Pertinent negatives: CAD ; IN ; CABG ; valvular heart disease; atrial fibrillation; pacemaker/ICD; DVT/PE; negative for CHF; drug-eluting stent(s) and bare metal stent(s) Respiratory + Asthma (exercise induced) Dyspnea frequency: never. Rescue inhaler use: never. Hospitalizations/ER in the last year: 0. Pertinent negatives: COPD; sleep apnea (NOAH); pulmonary hypertension; no O2 use outside the hospital; no history of oral steroid use; no prior intubation for respiratory failure due to asthma and non-smoker Comments: Reports current respiratory status is at baseline Hepatic / Heme + Liver disease - ALONZO. Gastrointestinal + GERD - on daily therapy. Renal / Pertinent negatives: renal disease and dialysis Musculoskeletal/Pain + Osteoarthritis Endocrine / Other + Cancer history- skin cancer only. Pertinent negatives: diabetes mellitus; thyroid disease; transplanted organ and infectious disease Obesity: s/p gastric sleeve 2014. Functional Capacity Functional capacity: 4-6 METs Functional capacity limited by a non-cardiovascular, non-pulmonary condition. Comments: Activity limited d/t hip pain Patient reports they can walk 2 flights of stairs or 3-4 city blocks without SOB or CP. Patient denies any recent changes in activity tolerance Review of Systems Pertinent negatives: productive cough; SOB; recent cold/flu; fever; chest pain; orthopnea; PND; previous transfusion; bleeding problems and syncope PAT Summary and Plans Cardiac risk classification of planned procedure: low cardiac risk. Preoperative assessment status: complete. Additional comments: Finesse Ramirez is a 53 y.o. female who is being evaluated prior to undergoing a low cardiac risk surgery. Revised Cardiac Risk Index factors are (none) for a total RCRI of 0 out of 6. Functional capacity is 4-6 METs. Obstructive sleep apnea (NOAH) screening status is STOP-BANG incomplete but suspected to be 0-2 suggesting low risk for NOAH. Neck circumference pending.. This assessment was performed via telephone. Therefore the physical exam has been deferred to the day of surgery team. The patient was provided with preoperative instructions for their medications. Patient instructions were provided by telephone and electronically sent via [email or web address]. Patient verbalized understanding of instructions. Blood bank needs for day of procedure: No type and screen needed Pending labs/tests include: None Per OC protocol scopolamine patch sent to patients preferred pharmacy. Patient denies history of glaucoma or urinary retention. Instructed patient on use and possible adverse reactions. TPAP Assessment Complete Preoperative evaluation performed by Aimee Sanchez NP on 09/26/23 at 12:40 PM . Patient Active Problem List Diagnosis Date Noted Tear of left acetabular labrum 09/15/2023 Arthritis 08/18/2023 DJD (degenerative joint disease) 08/18/2023 Elevated cholesterol 08/18/2023 Fatty liver disease, nonalcoholic 08/18/2023 History of sleeve gastrectomy 08/15/2021 Itching 11/22/2020 Itching 11/22/2020 Overweight (BMI 25.0-29.9) 11/02/2019 Recurrent major depressive disorder, in full remission (CMS/HCC) (HCC) 10/27/2017 Attention deficit hyperactivity disorder (ADHD) 10/27/2017 Tachycardia 12/28/2014 Morbid obesity (HCC) 08/18/2014 Asthma 06/28/2014 Asthma 06/28/2014 Osteoarthritis of cervical spine 10/08/2011 Lumbago 10/08/2011 Lumbar back pain 01/27/2011 Past Medical History: Diagnosis Date Anxiety Asthma Asthma; Comments: AWM 06/27/2014 - Cancer (CMS/HCC) ([facility] Female infertility Infertility, female Fibrocystic breast GERD (gastroesophageal reflux disease) Hammer toe Hammer toe; Comments: [facility] 06/27/2014 - HX OTHER MEDICAL Sinusitis, ADD, diverticulosis, obesity, OA, asthm HX OTHER MEDICAL Depression, with Anxiety; PCOS HX OTHER MEDICAL Missed Ab HX OTHER MEDICAL ; Outcome: [id number] week 7lb(s) 7 oz Male Hypercholesterolemia High cholesterol; Comments: [facility] 06/27/2014 - Hypertension Hypertension Motion sickness Retinal detachment Detachment of retina; Comments: [facility] 06/27/2014 - Past Surgical History: Procedure Laterality Date ANKLE SURGERY Left 2008 Ankle surgery ANTERIOR CRUCIATE LIGAMENT REPAIR Right 2008 Right ACL repair CARDIAC CATHETERIZATION 2013 CARPAL TUNNEL RELEASE Bilateral 1992 Carpal tunnel release CHOLECYSTECTOMY 03/2018 COLONOSCOPY 03/27/2021 1st COMBINED HYSTEROSCOPY DIAGNOSTIC / D&C 03/12/2023 DILATION AND CURETTAGE OF UTERUS 2010 Missed Ab: Suction D&C; ELBOW SURGERY Left 11/07/2020 x2 ENDOMETRIAL ABLATION 03/12/2023 [facility] 07/2021 [facility] OTHER SURGICAL HISTORY retina re-attachment, multiple surgeries; unknown date ROTATOR CUFF REPAIR Left 2008 ROTATOR CUFF REPAIR Left 2017 Rotator cuff repair SLEEVE GASTROPLASTY 2015 Laparoscopic Gastric Sleeve SPINAL FUSION 2010 Spinal fusion L5-S1 OB History 2 Para 1 Term 1 0 AB 1 Living 1 SAB 1 IAB 0 Ectopic 0 Multiple 0 Live Births 1 Allergies Allergen Reactions Erythromycin Rash Nylon Rash stitches Morphine Nausea & Vomiting Vicodin [Hydrocodone-Acetaminophen] Vomiting Med List Status: Nurse Complete Set By: Natalie Medina RN at 09/19/2023 10:00 AM Taking? Last Dose Start Date End Date Provider albuterol HFA (PROVENTIL HFA,VENTOLIN HFA,PROAIR HFA) 90 mcg/actuation inhaler Past Month 01/04/22 -- Laureano Lantigua MD 2 puffs qid prn Patient taking differently: Inhale 2 puffs every 6 (six) hours as needed for wheezing or shortness of breath 2 puffs qid prn busPIRone (BUSPAR) 10 mg tablet Past Month 10/18/21 -- Laureano Lantigua MD Take 1 tablet (10 mg total) by mouth daily as needed (anxiety) Patient taking differently: Take 1 tablet (10 mg total) by mouth daily as needed (anxiety) carisoprodoL (SOMA) 350 mg tablet Past Week 01/09/22 -- Laureano Lantigua MD Take 1 tablet (350 mg total) by mouth nightly as needed for muscle spasms estradioL (VIVELLE-DOT) 0.05 mg/24 hr -- 04/07/23 -- Tony Washington MD Place one patch on the skin twice weekly Patient taking differently: Place 1 patch on the skin once a week Place one patch on the skin twiceweekly ferrous sulfate 325 mg (65 mg of elemental iron) tablet 09/19/2023 -- -- Kanu Waterman MD ibuprofen (ADVIL,MOTRIN) 400 mg tablet Past Month -- -- Kanu Waterman MD magnesium phosphate, bulk, powder Past Week -- -- Kanu Waterman MD methylphenidate ER (CONCERTA) 27 mg CR tablet 09/19/2023 -- -- Kanu Waterman MD methylphenidate HCl (RITALIN) 5 mg tablet 09/18/2023 08/28/23 -- Kanu Waterman MD oxyCODONE-acetaminophen (PERCOCET) 5-325 mg per tablet -- 03/13/23 -- Laureano Lantigua MD Take 1 tablet by mouth every 8 (eight) hours as needed for pain progesterone (PROMETRIUM) 200 mg capsule Past Month 04/07/23 -- Tony Washington MD One pill for 12 days every 3 months. Patient taking differently: Take 1 capsule (200 mg total) by mouth as directed One pill for 12 daysevery 3 months. traZODone (DESYREL) 50 mg tablet 09/18/2023 02/03/23 -- Kanu Waterman MD UNABLE TO FIND Past Month -- -- Kanu Waterman MD No current facility-administered medications for this encounter. Current Outpatient Medications: albuterol HFA (PROVENTIL HFA,VENTOLIN HFA,PROAIR HFA) 90 mcg/actuation inhaler busPIRone (BUSPAR) 10 mg tablet carisoprodoL (SOMA) 350 mg tablet ferrous sulfate 325 mg (65 mg of elemental iron) tablet ibuprofen (ADVIL,MOTRIN) 400 mg tablet magnesium phosphate, bulk, powder methylphenidate ER (CONCERTA) 27 mg CR tablet methylphenidate HCl (RITALIN) 5 mg tablet oxyCODONE-acetaminophen (PERCOCET) 5-325 mg per tablet progesterone (PROMETRIUM) 200 mg capsule traZODone (DESYREL) 50 mg tablet UNABLE TO FIND estradioL (VIVELLE-DOT) 0.05 mg/24 hr Social History Tobacco Use Smoking Status Never Smokeless Tobacco Never Alcohol Use: Not At Risk (09/19/2023) AUDIT-C Frequency of Alcohol Consumption: 2-3 times a week Average Number of Drinks: 1 or 2 Frequency of Binge Drinking: Never Substance and Sexual Activity Drug Use No Family History Problem Relation Age of Onset Hypertension Mother Hypertension; Heart disease Father Heart disease; Heart attack Father Myocardial Infarction; Hyperlipidemia Father High cholesterol; Hypertension Maternal Grandmother Hypertension; Heart attack Maternal Grandfather Myocardial Infarction; Cause of : Myocardial Infarction Prostate cancer Maternal Grandfather Cancer, prostate; Heart attack Cousin Myocardial Infarction; Heart disease Other Heart disease; Diabetes Other Diabetes mellitus; Anesthesia problems Neg Hx There were no vitals filed for this visit. Relevant diagnostics: ECG(s): 12/14/2014 (CE): Normal sinus rhythm (89bpm) Rightward axis Borderline ECG Echocardiogram(s): N/A Stress test(s): N/A Cardiac catheterization(s): N/A PFT(s): N/A Vascular studies: N/A Other: N/A PT: No results found for requested labs within last 30 days. INR: No results found for requested labs within last 30 days. APTT: No results found for requested labs within last 30 days. Hgb A1C: No results found for requested labs within last 30 days. CBC RBC: No results found for requested labs within last 30 days. RDW: No results found for requested labs within last 30 days. MCHC: No results found for requested labs within last 30 days. MCH: No results found for requested labs within last 30 days. MCV: No results found for requested labs within last 30 days. Hct: No results found for requested labs within last 30 days. Hgb: No results found for requested labs within last 30 days. WBC: No results found for requested labs within last 30 days. MPV: No results found for requested labs within last 30 days. Platelets: No results found for requested labs within last 30 days. RDW CV: No results found for requested labs within last 30 days. RDW Sd: No results found for requested labs within last 30 days. BMP Glucose: No results found for requested labs within last 30 days. Calcium: No results found for requested labs within last 30 days. Sodium: No results found for requested labs within last 30 days. Potassium: No results found for requested labs within last 30 days. CO2: No results found for requested labs within last 30 days. Chloride: No results found for requested labs within last 30 days. BUN: No results found for requested labs within last 30 days. Creatinine: No results found for requested labs within last 30 days. Wayne index score: 100 DOS Physical Exam Medical history, medications, and allergies reviewed. Attestation: This PAT evaluation Airway Exam: Mallampati: I Cervical ROM: FROM Cardiovascular Exam: Rate: regular Rhythm: regular Pulmonary Exam: LCTA Anesthesia Plan ASA 2 My patient is approved for the Anesthesia Controlled Medication protocol when under care of a COAL WASHER TENDER Planned anesthesia: General Consent and Attending signature: I and/or my designee have discussed the anesthesia plan, benefits, possible alternatives, parental presence at time of induction (if indicated), and clinically relevant risks that may include dental injury, unintentional awareness, and/or other complications. The patient and/or parent/legal guardian understand, and agree to proceed. All questions answered. BODIED WATCHMAN BODIED WATCHMAN documented in this encounter Plan of Treatment Not on file documented as of this encounter Procedures Procedure Name Priority Date/Time Associated Diagnosis Comments NJ AN PROCEDURE PLACEHOLDER Routine 10/07/2023 9:04 AM ABLE BODIED WATCHMAN NJ AN ELECTIVE SUPRAGLOTTIC AIRWAY Routine 10/07/2023 9:04 AM ABLE BODIED WATCHMAN documented in this encounter Results * NJ AN ELECTIVE SUPRAGLOTTIC AIRWAY, NJ AN PROCEDURE PLACEHOLDER (10/07/2023 9:04 AM ABLE BODIED WATCHMAN) Narrative Joycelyn Camacho CRNA - 10/07/2023 9:04 AM ABLE BODIED WATCHMAN Joycelyn Camacho CRNA ? 10/07/2023 ??9:05 AM Airway Patient location: pre-op Urgency: elective Indications for airway management: anesthesia Difficult airway: no Staff: Placed by: COAL WASHER TENDER: Joycelyn Camacho CRNA Emergent airway documentation: Risks and benefits discussed: yes Consent obtained: yes Consent given by: patient Airway prep: Preoxygenated: yes Patient position: sniffing Mask difficulty assessment: 0 - not attempted Spontaneous ventilation during airway: absent Sedation level during airway: deep Final airway details: Final airway type: supraglottic airway Final supraglottic airway: IGel Number of attempts: 1 Additional comments: Gentle placement of Igel LMA orally and without difficulty. Donald Grant MD ANESTHESIA ORDERABLES Final Resu lt documented in this encounter Visit Diagnoses Not on filedocumented in this encounter Administered Medications Inactive Administered Medications - up to 3 most recent administrations Medication Order MAR Action Action Date Dose Rate Site ceFAZolin (ANCEF) 2,000 mg/50 mL in dextrose (premix) 2,000 mg 2,000 mg, intravenous, at 100 mL/hr, Administer over 30 Minutes, Once, On Fri10/07/23 at 0745, For 1 dose, Pre-Op, Administer within 60 minutes of incision. Duplex bag - activate before hanging., Indications: Prophylaxis, SurgicalIndications:Prophylaxis , Surgical Given 10/07/2023 8:57 AM ABLE BODIED WATCHMAN 2,000 mg dexAMETHasone (DECADRON) 4 mg/mL injection intravenous, Administer over 2 Minutes, As needed, Starting on Fri10/07/23 at 0902, Anesthesia Intra-op Given 10/07/2023 9:02 AM ABLE BODIED WATCHMAN 8 mg diphenhydrAMINE (BENADRYL) 50 mg/mL injection intravenous, Administer over 2 Minutes, As needed, Starting on Fri10/07/23 at 0852, Anesthesia Intra-op Given 10/07/2023 8:52 AM ABLE BODIED WATCHMAN 12.5 mg fentaNYL (SUBLIMAZE) preservative free injection intravenous, As needed, Starting on Fri10/07/23 at 0852, Anesthesia Intra-op Given 10/07/2023 10:14 AM ABLE BODIED WATCHMAN 25 mcg Given 10/07/2023 10:06 AM ABLE BODIED WATCHMAN 25 mcg Given 10/07/2023 9:00 AM ABLE BODIED WATCHMAN 25 mcg ketorolac (TORADOL) 30 mg/mL (1 mL) injection intravenous, As needed, Starting on Fri10/07/23 at 1006, Anesthesia Intra-op Given 10/07/2023 10:06 AM ABLE BODIED WATCHMAN 30 mg Lactated Ringer's (LR) infusion 30 mL/hr, intravenous, Continuous, Starting on Fri10/07/23 at 0745, Pre-Op, Use a 500 ml bag for End Stage Renal Disease Patients New Bag 10/07/2023 9:56 AM ABLE BODIED WATCHMAN Rate/Dose Verify 10/07/2023 8:48 AM ABLE BODIED WATCHMAN 30 mL/h r New Bag 10/07/2023 7:32 AM ABLE BODIED WATCHMAN 30 mL/hr 30 mL/hr lidocaine (XYLOCAINE) 20 mg/mL (2 %) injection intravenous, As needed, Starting on Fri10/07/23 at 0852, Anesthesia Intra-op, Indications: Administration of Local AnesthesiaIndications:Administration of Local Anesthesia Given 10/07/2023 8:52 AM ABLE BODIED WATCHMAN 100 mg midazolam (VERSED) 1 mg/mL injection intravenous, As needed, Starting on Fri10/07/23 at 0845, Anesthesia Intra-op Given 10/07/2023 8:45 AM ABLE BODIED WATCHMAN 2 mg ondansetron (ZOFRAN) injection intravenous, Administer over 2 Minutes, As needed, Starting on Fri10/07/23 at 1006, Anesthesia Intra-op Given 10/07/2023 10:06 AM ABLE BODIED WATCHMAN 4 mg propofoL (DIPRIVAN) 10 mg/mL IV intravenous, As needed, Starting on Fri10/07/23 at 0852, Anesthesia Intra-op Given 10/07/2023 8:52 AM ABLE BODIED WATCHMAN 200 mg documented in this encounter Care Teams Government Employee Relationship Specialty Start Date End Date Laureano Lantigua MD [address] [place] [id number] PCP - General Internal Medicine 07/30/18 Tony Washington MD [address] [place] [address] [place] [id number] [employer] Obstetrics [facility] Gynecology 11/16/18 Anahy Rosales MD [address] [facility] [place] [id number] Referring Physician Psychiatry 11/16/18 Nathalia Rodas PT Physical Therapist Physical Therapy 02/14/23 documented as of this encounter
--- OUTSIDE RECORDS SUMMARY | 2024-11-15 03:23 | XMS_ITS | Encounter Summary ---
Author Organization [facility] Healthcare Address [address] [place] [address] Care Team Providers Care Supervisor Metalizing Name Role Phone Laureano Lantigua MD Primary Care Provider [phone] Tony Washington MD Unavailable [phone] Anahy Rosales MD Unavailable [phone] Nathalia Rodas PT Unavailable Unavailable Encounter Details Date Type Department Care Team (Late st Contact Info) Description 01/27/2024 Telephone [facility] [address] [place] [address] Laureano Lantigua MD [address] [place] [address] Social History Tobacco Use Types Packs/Day Years [...] on file Legal Sex Female 1:37 AM SOLAR 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 * Telephone Encounter - Laureano Lantigua MD - 01/27/2024 8:09 AM CDT I spoke with her See advice I will see her after she has seen dr vela which is on the january documented in this encounter Plan of Treatment Not on file documented as of this encounter Visit Diagnoses Not on filedocumented in this encounter Care Teams Supervisor Metalizing Relationship Specialty Start Date End Date Laureano Lantigua MD [address] [place] [address] PCP - General Internal Medicine 07/30/18 Tony Washington MD [address] [facility] [place] [address] Regional Sales Engineer Obstetrics and Gynecology 11/16/18 Anahy Rosales MD [address] [facility] [place] [address] Referring Physician Psychiatry 11/16/18 Nathalia Rodas, PT Physical Therapist Physical Therapy 02/14/23 documented as of this encounter
--- OUTSIDE RECORDS SUMMARY | 2024-11-15 03:23 | XMS_ITS | Encounter Summary ---
Author Organization [facility] Healthcare Address [address] [place] [address] Care Team Providers Care Fur Examiner Name Role Phone Laureano Lantigua MD Primary Care Provider [phone] Tony Washington MD Unavailable [phone] Anahy Rosales MD Unavailable [phone] Nathalia Rodas PT Unavailable Unavailable Reason for Visit * Reason Comments PT Treatment * Consultation (Routine) - Closed Specialty Diagnoses / Procedures Referred By Contмария t Referred To Contact Physical Therapy Diagnoses Left hip pain Cecilia Conn MD [address] [facility] [address] [place] [address] Phone: tel: fax: External Order Referral ID Status Reason Start Date Expiration Date V isits Requested Visits Authorized [id number] Closed Specialty Services Required 10/02/2023 10/31/2024 24 24 Encounter Details Date Type Department Care Team (Late st Contact Info) Description 11/11/2023 4:00 PM SCREEN PRINTING PASTER Therapy [facility] [place] [address] Nathalia Rodas, PT Left hip pain (Primary [...] on file Legal Sex Female 1:37 AM SCREEN PRINTING PASTER Gender Identity Female 10/03/2023 10:05 AM SCREEN PRINTING PASTER Sexual Orientation Straight 10/03/2023 10 :05 AM SCREEN PRINTING PASTER documented as of this encounter Progress Notes * Nathalia Rodas, PT - 11/11/2023 4:00 PM CST Physical Therapy Visit 11/11/23 Finesse Ramirez 1970, female [id number] Diagnosis Plan 1. Left hip pain 2. Encounter for other orthopedic aftercare 3. Unilateral primary osteoarthritis, left hip Cecilia Conn MD [address] [facility] [address] [place] [address] Subjective: Patient reports that she has been performing her exercises, with report of significant muscle soreness after last session. She is having groin pain today and continues to have posterior hip and PSIS pain. Objective: See treatment provided. DOS: 10/07/23 Treatment Provided: PROM hip flexion, ER, IR, circumduction Inferior glide joint mob (in supine with 90 deg hip flexion) Bridges Clamshells Quad rock Cat Cow Side plank taps Side steps Retro walking Octane x10 min Gait training of use of crutch or cane in R UE to offset weight from L LE Assessment: Tolerated treatment fairly well. Did not progress due to soreness after last visit and to maintain protocol. Plan: Cont per POC progressing per protocol. Start Time: 1600 End Time: 1644 Nathalia Rodas PT, DPT, COMT EN PRINTING PASTER documented in this encounter Plan of Treatment Not on file documented as of this encounter Visit Diagnoses Diagnosis Left hip pain- Primary Pain in joint, pelvic region and thigh Encounter for other orthopedic aftercare Unilateral primary osteoarthritis, left hip documented in this encounter Care Teams Fur Examiner Relationship Specialty Start Date End Date Laureano Lantigua MD [address] [place] [address] PCP - General Internal Medicine 07/30/18 Tony Washington MD [address] [facility] [place] [address] Tonger Obstetrics and Gynecology 11/16/18 Anahy Rosales MD [address] [facility] [place] [place] [address] Referring Physician Psychiatry 11/16/18 Nathalia Rodas PT Physical Therapist Physical Therapy 02/14/23 documented as of this encounter
--- OUTSIDE RECORDS SUMMARY | 2024-11-15 03:23 | XMS_ITS | Encounter Summary ---
Author Organization [facility] Healthcare Address [address] [place] [address] Care Team Providers Care Cone Operator Name Role Phone Laureano Lantigua MD Primary Care Provider [phone] Tony Washington MD Unavailable [phone] Anahy Rosales MD Unavailable Nathalia Rodas PT Unavailable Unavailable Reason for Visit * Reason Comments PT Treatment * Consultation (Routine) - Closed Specialty Diagnoses / Procedures Referred By Contмария t Referred To Contact Physical Therapy Diagnoses Left hip pain Cecilia Conn MD [address] [facility] [address] [place] [address] Phone: tel: fax: External Order Referral ID Status Reason Start Date Expiration Date V isits Requested Visits Authorized [id number] Closed Specialty Services Required 10/02/2023 10/31/2024 24 24 Encounter Details Date Type Department Care Team (Late st Contact Info) Description 12/05/2023 7:00 AM IVF EMBRYOLOGIST Therapy [facility] [place] [address] Nathalia Rodas, PT Left hip pain (Primary [...] on file Legal Sex Female 1:37 AM IVF EMBRYOLOGIST Gender Identity Female 10/03/2023 10:05 AM IVF EMBRYOLOGIST Sexual Orientation Straight 10/03/2023 10 :05 AM IVF EMBRYOLOGIST documented as of this encounter Progress Notes * Nathalia Rodas, PT - 12/05/2023 7:00 AM CST Physical Therapy Visit 12/05/23 Finesse Ramirez 1970, female [id number] Diagnosis Plan 1. Left hip pain 2. Encounter for other orthopedic aftercare Cecilia Conn MD [address] [facility] [address] [place] [address] Subjective: Finesse states she is surprisingly feeling good today. Objective: See treatment provided. Gait: ambulates without [...] walking Mini squats Wall squats with SB Octane x5 min Gait training of use of crutch or cane in R UE to offset weight from L LE* Assessment: Finesse demonstrates good tolerance today, with noted discomfort with exercises due to muscle fatigue vs pain levels. Goals: ALL ONGOING LTG 1:: Pt will improve hip AROM to equal of R LE. LTG 2:: Pt will demonstrate 5/5 hip strength. LTG 3:: Pt will demonstrate gait pattern without significant impairments. LTG 4:: Pt will report LEFS 50/80 to indicate improved functional ability. Plan: Cont per POC progressing per protocol. Start Time: 07 End Time: 741 Nathalia Rodas PT, DPT, COMT EMBRYOLOGIST documented in this encounter Plan of Treatment Not on file documented as of this encounter Visit Diagnoses Diagnosis Left hip pain- Primary Pain in joint, pelvic region and thigh Encounter for other orthopedic aftercare documented in this encounter Care Teams Cone Operator Relationship Specialty Start Date End Date Laureano Lantigua MD [address] [place] [address] PCP - General Internal Medicine 07/30/18 Tony Washington MD [address] [place] [address] [address] [place] [address] Property Maintenance Technician Obstetrics and Gynecology 11/16/18 Anahy Rosales MD [address] [facility] [place] [address] Referring Physician Psychiatry 11/16/18 Nathalia Rodas PT Physical Therapist Physical Therapy 02/14/23 documented as of this encounter
--- OUTSIDE RECORDS SUMMARY | 2024-11-15 03:23 | XMS_ITS | Encounter Summary ---
Author Organization [facility] Healthcare Address [address] [place] [address] Care Team Providers Care Disk Sander Name Role Phone Laureano Lantigua MD Primary Care Provider [phone] Tony Washington MD Unavailable [phone] Anahy Rosales MD Unavailable [phone] Nathalia Rodas PT Unavailable Unavailable Reason for Referral * Diagnostic Imaging (Routine) - Closed Specialty Diagnoses / Procedures Referred By Jesse t Referred To Contact Diagnoses Left hip pain Orthopedic aftercare Procedures XR Hip Left 2 or 3 Views W Pelvis Cecilia Conn MD [address] [facility] [place] [address] Phone: tel: fax: [facility] Radiology [address] [facility] [address] [place] [id number] Phone: tel: Referral ID Status Reason Start Date Expiration Date Visits Re quested Visits Authorized [id number] Closed 11/04/2023 12/03/2024 1 1 X SYSTEMS ENGINEER Reason for Visit * Diagnostic Imaging (Routine) - Closed Specialty Diagnoses / Procedures Referred By Contac t Referred To Contact Diagnoses Left hip pain Orthopedic aftercare Procedures XR Hip Left 2 or 3 Views W Pelvis Cecilia Conn MD [address] [facility] [address] [place] [address] Phone: tel: fax: [facility] [address] [facility] [address] [place] [address] Phone: tel: Referral ID Status Reason Start Date Expiration Date Visits Re quested Visits Authorized [id number] Closed 11/04/2023 12/03/2024 1 1 Encounter Details Date Type Department Care Team (Latest Contact Info) Description 11/18/2023 2:30 PM LINUX SYSTEMS ENGINEER - 11/18/2023 11:59 PM LINUX SYSTEMS ENGINEER Hospital Encounter [id number] [address] [facility] [address] [place] [id number] Left hip [...] on file Legal Sex Female 1:37 AM LINUX SYSTEMS ENGINEER Gender Identity Female 10/03/2023 10:05 AM LINUX SYSTEMS ENGINEER Sexual Orientation Straight 10/03/2023 10 :05 AM LINUX SYSTEMS ENGINEER documented as of this encounter Medications at Time of Discharge albuterol HFA (PROVENTIL HFA,VENTOLIN HFA,PROAIR HFA) 90 mcg/actuation inhaler 2 puffs qid prn 1 each 01/04/2022 diazePAM (VALIUM) 5 mg tablet Take 1 tablet (5 mg total) by mouth every 6 (six) hours as needed for anxiety for up to 7 days 28 tablet 11/19/2023 ferrous sulfate 325 mg (65 mg of elemental iron) tabletIndications:I mehreen Deficiency Anemia Take 1 tablet (325 mg total) by mouth daily with breakfast magnesium phosphate, bulk, powderIndications:s upplement Take 1 tablet by mouth every morning methylphenidate HCl (RITALIN) 5 mg tabletIndications:A ttention-Deficit Hyperactivity Disorder Take 1 tablet (5 mg total) by mouth daily with lunch 08/28/2023 traZODone (DESYREL) 50 mg tabletIndications:s leep Take 1 tablet (50 mg total) by mouth nightly 02/03/2023 aspirin 81 mg enteric coated tablet Take 1 tablet (81 mg total) by mouth 2 (two) times a day 60 tablet 10/03/2023 4 busPIRone (BUSPAR) 10 mg tablet Take 1 tablet (10 mg total) by mouth daily as needed (anxiety) 30 tablet 5 10/18/2021 4 estradioL (VIVELLE-DOT) 0.05 mg/[address] one patch on the skin twice weekly 24 patch 3 04/07/2023 4 methylphenidate ER (CONCERTA) 27 mg CR tabletIndications:A ttention-Deficit Hyperactivity Disorder Take 1 tablet (27 mg total) by mouth every morning 4 naproxen (NAPROSYN) 500 mg tablet Take 2 with breakfast the day before surgery then one tablet twice a day for 14 days 30 tablet 10/03/2023 4 ondansetron (ZOFRAN) 4 mg tablet Take 1 tablet (4 mg total) by mouth every 6 (six) hours as needed for nausea or vomiting 40 tablet 10/03/2023 4 oxyCODONE-acetamino phen (PERCOCET) 5-325 mg per tabletIndications:P ain Take 1 tablet by mouth every 4 (four) hours as needed for pain 10/20/2023 4 progesterone (PROMETRIUM) 200 mg capsule One pill for 12 days every 3 months. 12 capsule 3 04/07/2023 4 scopolamine 1 mg over 3 days patch [address] 1 PATCH ON THE SKIN ONCE FOR 1 DOSE 09/26/2023 4 documented as of this encounter Discharge Disposition Disposition Code Departure Means Destination Discharge to home or self care documented in this encounter Plan of Treatment Not on file documented as of this encounter Procedures Procedure Name Priority Date/Time Associated Diagnosis Comments XR HIP LEFT W PELVIS 2 OR 3 VIEWS Schedule Routine, Read Routine (OP Routine) 11/18/2023 2:55 PM LINUX SYSTEMS ENGINEER Left hip pain Orthopedic aftercare documented in this encounter Results * XR Hip Left 2 or 3 Views W Pelvis (11/18/2023 2:55 PM LINUX SYSTEMS ENGINEER) Anatomical Region Laterality Modality Lower Extremities, Hip, Pelvis Left C omputed Radiography 11/18/2023 3:07 PM LINUX SYSTEMS ENGINEER Impressions 11/18/2023 3:07 PM LINUX SYSTEMS ENGINEER Normal left hip joint space. ??No acute osseous abnormality. Electronically signed by: Kev Ríos MD Narrative 11/18/2023 3:07 PM LINUX SYSTEMS ENGINEER EXAMINATION: XR HIP LEFT 2 OR 3 VIEWS W PELVIS HISTORY: 6wk POSTOP HS; hip arthroscopy, labral debridement, chondroplasty and capsular repair VIEWS: 3 radiographs of the pelvis and left hip COMPARISON: Radiographs 09/10/2023 FINDINGS: The left hip joint space is preserved. ??No fracture or malalignment. Fusion hardware at L5-S1. ??No focal soft tissue abnormality. Procedure Note Kev Ríos MD - 11/18/2023 EXAMINATION: XR HIP LEFT 2 OR 3 VIEWS W PELVIS HISTORY: 6wk POSTOP HS; hip arthroscopy, labral debridement, chondroplasty and capsular repair VIEWS: 3 radiographs of the pelvis and left hip COMPARISON: Radiographs 09/10/2023 FINDINGS: The left hip joint space is preserved. No fracture or malalignment. Fusion hardware at L5-S1. No focal soft tissue abnormality. IMPRESSION: Normal left hip joint space. No acute osseous abnormality. Electronically signed by: Kev Ríos MD us Cecilia Ruggiero MD IMG XR PROCEDURES Fin al Result documented in this encounter Visit Diagnoses Diagnosis Left hip pain Pain in joint, pelvic region and thigh Orthopedic aftercare Unspecified orthopedic aftercare documented in this encounter Care Teams Disk Sander Relationship Specialty Start Date End Date Laureano Lantigua MD [address] [place], [place] [address], [place] [address] PCP - General Internal Medicine 07/30/18 Tony Washington MD [address] [facility] [address] [facility] [facility] [place] [address] Building Architect Obstetrics and Gynecology 11/16/18 Anahy Rosales MD [address] [facility] [address] [facility] [facility] [place] [address] Referring Physician Psychiatry 11/16/18 Nathalia Rodas, PT Physical Therapist Physical Therapy 02/14/23 documented as of this encounter
--- OUTSIDE RECORDS SUMMARY | 2024-11-15 03:23 | XMS_ITS | Encounter Summary ---
Author Organization [facility] Healthcare Address [address] [place] [address] Care Team Providers Care Neurobiologist Name Role Phone Laureano Lantigua MD Primary Care Provider [phone] Tony Washington MD Unavailable [phone] Anahy Rosales MD Unavailable [phone] Nathalia Rodas PT Unavailable Unavailable Reason for Visit * Reason Comments Gynecologic Exam Encounter Details Date Type Department Care Team (Late st Contact Info) Description 02/16/2024 2:30 PM CDT Office Visit [facility] [address], [place] [id number] Tony Washington MD [address] [place] [address] [address] [place] [address] Well woman exam (Primary Dx); Screening for colon cancer; Visit for screening mammogram; Symptomatic menopausal or female climacteric states Social History Tobacco Use Types Packs/Day Years [...] on file Legal Sex Female 1:37 AM SENIOR RISK MANAGER Gender Identity Female 10/03/2023 10:05 AM SENIOR RISK MANAGER Sexual Orientation Straight 10/03/2023 10 :05 AM SENIOR RISK MANAGER documented as of this encounter Last Filed Vital Signs Vital Sign Reading Time Taken Comments Blood Pressure 148/86 02/16/2024 2:42 PM CDT Pulse - - Temperature - - Respiratory Rate - - Oxygen Saturation - - Inhaled Oxygen Concentration - - Weight 93.9 kg (207 lb) 02/16/2024 2:42 PM CDT Height 182.9 cm (6') 02/16/2024 2:42 PM CDT Body Mass Index 28.07 02/16/2024 2:42 PM CDT documented in this encounter Ordered Prescriptions Prescription Sig Dispense Quantity Refills Last Filled Start Date End Date estradioL (VIVELLE-DOT) 0.075 mg/24 hrIndications:Vaso motor Symptoms associated with Menopause Place 1 patch on the skin 2 (two) times a week 26 patch 3 02/16/2024 5 progesterone (PROMETRIUM) 200 mg capsuleIndications :Symptomatic menopausal or female climacteric states One pill vaginally every night for 12 days every 3 months 12 capsule 3 02/16/2024 4 documented in this encounter Progress Notes * Tony Washington MD - 02/16/2024 2:30 PM CDT Well Woman Exam Subjective: Pateint presents for: Gynecologic Exam Finesse Ramirez is a 53 y.o. year old female who presents for a well woman exam. She reportscontinued hot flashes on Vivelle-Dot 50 mcg and progesterone 200 mg for 12 days every 3 months. Sheis status post endometrial ablation. No bleeding. She is still having some hip and lower back problems. Contraception:Menopause. No LMP recorded. Patient has had an ablation. 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 Cancer ([facility]/HCC) (HCC) 2020 basal cell carcinoma removed from banner with the Moh's Female infertility Infertility, female Fibrocystic breast GERD (gastroesophageal reflux disease) Hammer toe Hammer toe; Comments: [facility] 06/27/2014 - HX OTHER MEDICAL Sinusitis, ADD, diverticulosis, obesity, OA, asthm HX OTHER MEDICAL Depression, with Anxiety; PCOS HX OTHER MEDICAL Missed Ab HX OTHER MEDICAL ; Outcome: 37W0D week 7lb(s) 7 oz Male Hypercholesterolemia High cholesterol; Comments: [facility] 06/27/2014 - Hypertension Hypertension Motion sickness Retinal detachment Detachment of retina; Comments: [facility] 06/27/2014 - Past Surgical History: Procedure [...] SURGERY Left 11/07/2020 x2 ENDOMETRIAL ABLATION 03/12/2023 [facility] [facility] [facility] OTHER SURGICAL HISTORY retina re-attachment, multiple surgeries; unknown date ROTATOR CUFF REPAIR Left 2008 ROTATOR CUFF REPAIR Left 2017 Rotator cuff repair SLEEVE GASTROPLASTY 2015 Laparoscopic Gastric Sleeve SPINAL FUSION 2010 Spinal fusion L5-S1 Current Outpatient Medications: albuterol HFA (PROVENTIL HFA,VENTOLIN HFA,PROAIR HFA) 90 mcg/actuation inhaler, 2 puffs qid prn (Patient taking differently: Inhale 2 puffs every 6 (six) hours as needed for wheezing or shortness of breath 2 puffs qid prn), Disp: 1 each, Rfl: 11 busPIRone (BUSPAR) 10 mg tablet, Take 1 tablet (10 mg total) by mouth daily as needed (anxiety) (Patient taking differently: Take 1 tablet (10 mg total) by mouth daily as needed (anxiety)), Disp: 30 tablet, Rfl: 5 diazePAM (VALIUM) 5 mg tablet, Take 1 [...] by mouth every morning, Disp: , Rfl: methylphenidate ER (CONCERTA) 27 mg CR tablet, Take 1 tablet (27 mg total) by mouth every morning, Disp: , Rfl: methylphenidate HCl (RITALIN) 5 mg tablet, Take 1 tablet (5 mg total) by mouth daily with lunch, Disp: , Rfl: ondansetron (ZOFRAN) 4 mg tablet, Take 1 tablet (4 mg total) by mouth every 6 (six) hours as neededfor nausea or vomiting, Disp: 40 tablet, Rfl: 0 oxyCODONE-acetaminophen (PERCOCET) 5-325 mg per tablet, Take 1 tablet by mouth every 4 (four) hoursas needed for pain, Disp: 30 tablet, Rfl: 0 progesterone (PROMETRIUM) 200 mg capsule, One pill vaginally every night for 12 days every 3 months, Disp: 12 capsule, Rfl: 3 traZODone (DESYREL) 50 mg tablet, Take 1 tablet (50 mg total) by mouth nightly, Disp: , Rfl: Allergies Allergen Reactions Erythromycin Rash Nylon Rash Stitches-severe redness: had to be removed early Morphine Nausea & Vomiting Vicodin [Hydrocodone-Acetaminophen] Vomiting Family History Problem Relation Age of Onset [...] Sexual Activity Drug use: No Sexual activity: Defer control/protection: None Alcohol Use: Not At Risk (09/19/2023) AUDIT-C Frequency of Alcohol Consumption: 2-3 times a week Average Number of Drinks: 1 or 2 Frequency of Binge Drinking: Never Review of Systems Constitutional: Negative for chills, fatigue, fever and unexpected weight change. HENT: Negative for hearing loss, sore throat, tinnitus and trouble swallowing. Eyes: Negative for pain and visual disturbance. Respiratory: Negative for cough, shortness of breath and wheezing. Asthma Cardiovascular: Negative for chest pain, palpitations and leg swelling. Gastrointestinal: Positive for diarrhea. Negative for abdominal pain, blood in stool, constipation,nausea and vomiting. Endocrine: Negative for cold intolerance, heat intolerance and polydipsia. Genitourinary: Positive for frequency. Negative for dyspareunia, dysuria, hematuria, menstrual problem, pelvic pain, vaginal bleeding and vaginal discharge. Musculoskeletal: Positive for arthralgias, back pain and myalgias. Negative for joint swelling. Skin: Negative for color change and rash. Neurological: Negative for dizziness, numbness and headaches. Hematological: Does not bruise/bleed easily. Psychiatric/Behavioral: Negative for dysphoric mood, sleep disturbance and suicidal ideas. The patient is nervous/anxious. Objective: BP 148/86 (BP Location: Right arm, Patient Position: Sitting) Ht 182.9 cm (6') Wt 207 lb (93.9 kg) BMI 28.07 kg/m?? Physical Exam Constitutional: Appearance: She is well-developed. HENT: Head: Normocephalic. Eyes: Conjunctiva/sclera: Conjunctivae normal. Neck: Thyroid: No thyromegaly. Cardiovascular: Rate and Rhythm: Normal rate and regular rhythm. Pulmonary: Effort: Pulmonary effort is normal. Breath sounds: Normal breath sounds. Chest: Breasts: Right: No mass, nipple discharge, skin change or tenderness. Left: No mass, nipple discharge, skin change or tenderness. Abdominal: Palpations: Abdomen is soft. There is no mass. Tenderness: There is no abdominal tenderness. There is no rebound. Hernia: No hernia is present. Genitourinary: Labia: Right: No lesion. Left: No lesion. Vagina: Normal. No vaginal discharge. Cervix: No cervical motion tenderness. Uterus: Not enlarged and not tender. Adnexa: Right: No mass or tenderness. Left: No mass or tenderness. Rectum: Normal. Guaiac result negative. Musculoskeletal: General: No tenderness. Cervical back: Neck supple. Lymphadenopathy: Cervical: No cervical adenopathy. Upper Body: Right upper body: No supraclavicular adenopathy. Left upper body: No supraclavicular adenopathy. Skin: General: Skin is warm and dry. Neurological: Mental Status: She is alert and oriented to person, place, and time. Assessment and Plan: Normal exam. Diagnoses and all orders for this visit: Well woman exam (Primary) - Pap, reflex HPV; Future Screening for colon cancer Comments: Seracult is negative. Colonoscopy was done in 03/2021. Orders: - POCT fecal occult blood Visit for screening mammogram Comments: Script provided. Symptomatic menopausal or female climacteric states Comments: We will increase Vivelle-Dot from 50 mcg to 75 mcg twice weekly. Continue progesterone 200 mg for 12 days q.h.s. every 3 months status post endom. ablation. Orders: - estradioL (VIVELLE-DOT) 0.075 mg/24 hr; Place 1 patch on the skin 2 (two) times a week - progesterone (PROMETRIUM) 200 mg capsule; One pill vaginally every night for 12 days every 3 months - Testosterone, Total and Free, Serum; Future Will consider adding or testing testosterone levels if not improved. Recommended screenings and preventive care discussed: Breast Self Exam encouraged. Pap with reflex done. Calcium and vitamin D BID recommended and cholesterol followed by PCP. Low fat, low carbohydrate diet and exercise encouraged. Return in about 1 year (around 02/15/2025) for annual exam. Tony Washington MD 02/16/2024 documented in this encounter Plan of Treatment Scheduled Orders Name Type Priority Associated Diagnoses Orde r Schedule Testosterone, Total and Free, Serum Lab Routine Symptomatic menopausal or female climacteric states Expected: 02/19/2024, Expires: 02/15/2025 documented as of this encounter Procedures Procedure Name Priority Date/Time Associated Diagnosis Comments POCT FECAL OCCULT BLOOD, NOT FOR NEOPLASM SCREENING Routine 02/16/2024 3:29 PM CDT Screening for colon cancer PAP, REFLEX HPV Routine 02/16/2024 3:25 PM CDT Well woman exam documented in this encounter Results * POCT fecal occult blood (02/16/2024 3:29 PM CDT) Fecal Globin, POC Negative Rectum 02/16/2024 3:29 PM CDT Tony Washington MD POINT OF CARE TEST ORDERAB LES Final Result * Pap, reflex HPV (02/16/2024 3:25 PM [...] has been evaluated with computer assisted technology. Epoxy Fabrication Supervisor Joel Geronimo Comment: RORO ALEJANDRO(ASCP) CT screening location: [place] [address] [address] [place] [address] Comment Arsenio Hwang Comment: EXPLANATORY NOTE: The [...] MD LAB CYTOLOGY ORDERABLES Fi nal Result [facility] [place] [address] [address] [place] [id number] documented in this encounter Visit Diagnoses Diagnosis Well woman exam- Primary Routine general medical examination at a health care facility Screening for colon cancer Special screening for malignant neoplasms, colon Visit for screening mammogram Symptomatic menopausal or female climacteric states documented in this encounter Discontinued Medications Medication Sig Discontinue Reason Start Date End Da te estradioL (VIVELLE-DOT) 0.05 mg/[address] one patch on the skin twice weekly Dose adjustment 04/07/2023 02/16/2024 progesterone (PROMETRIUM) 200 mg capsule One pill for 12 days every 3 months. Reorder 04/07/2023 02/16/2024 documented as of this encounter Care Teams Neurobiologist Relationship Specialty Start Date End Date Laureano Lantigua MD [address] [facility] [place] [address] PCP - General Internal Medicine 07/30/18 Tony Washington MD [address] [facility] [place] [address] Machine Boss Obstetrics and Gynecology 11/16/18 Anahy Rosales MD [address] [facility] [place] [address] Referring Physician Psychiatry 11/16/18 Nathalia Rodas, PT Physical Therapist Physical Therapy 02/14/23 documented as of this encounter
--- OUTSIDE RECORDS SUMMARY | 2024-11-15 03:23 | XMS_ITS | Encounter Summary ---
Author Organization [facility] Healthcare Address [address] [place] [address] Care Team Providers Care Sap Hana Architect Name Role Phone Laureano Lantigua MD Primary Care Provider [phone] Tony Washington MD Unavailable [phone] Anahy Rosales MD Unavailable [phone] Nathalia Rodas PT Unavailable Unavailable Reason for Visit * Reason Comments PT Treatment * Consultation (Routine) - Closed Specialty Diagnoses / Procedures Referred By Contмария t Referred To Contact Physical Therapy Diagnoses Left hip pain Cecilia Conn MD [address] [facility] [address] [place] [address] Phone: tel: fax: External Order Referral ID Status Reason Start Date Expiration Date V isits Requested Visits Authorized [id number] Closed Specialty Services Required 10/02/2023 10/31/2024 24 24 Encounter Details Date Type Department Care Team (Late st Contact Info) Description 11/21/2023 7:00 AM GAS TRUCK DRIVER Therapy [facility] [place] [address] Nathalia Rodas, PT Left hip pain (Primary [...] on file Legal Sex Female 1:37 AM GAS TRUCK DRIVER Gender Identity Female 10/03/2023 10:05 AM GAS TRUCK DRIVER Sexual Orientation Straight 10/03/2023 10 :05 AM GAS TRUCK DRIVER documented as of this encounter Progress Notes * Nathalia Rodas, PT - 11/21/2023 7:00 AM CST Physical Therapy Visit 11/21/23 Finesse Ramirez 1970, female [id number] Diagnosis Plan 1. Left hip pain 2. Encounter for other orthopedic aftercare Cecilia Conn MD [address] [facility] [address] [place] [address] Subjective: Patient has been taking her new muscle relaxer, but it hit her significantly and could not get out of bed. Her pain continutes, especially in the 3 muscle knots in her back and posterior hip. Her groin pain is starting to improve but her posterior hip and rochelle kis starting to ache again.She sat in a hot bath this morning which helped her symptoms. Current pain: 2-3 Objective: See treatment provided. DOS: 10/07/23 Treatment [...] L LE Assessment: Tolerated treatment fairly well. Able to return to strengthening exercises without increased c/o pain. Discussed prone hip flexor stretching and standing with foot on chair to improve posture and APT affecting her low back pain. Plan: Cont per POC progressing per protocol. Start Time: 701 End Time: 749 Nathalia Rodas PT, DPT, COMT TRUCK DRIVER documented in this encounter Plan of Treatment Not on file documented as of this encounter Visit Diagnoses Diagnosis Left hip pain- Primary Pain in joint, pelvic region and thigh Encounter for other orthopedic aftercare documented in this encounter Care Teams Sap Hana Architect Relationship Specialty Start Date End Date Laureano Lantigua MD [address] [place] [address] PCP - General Internal Medicine 07/30/18 Tony Washington MD [address] [facility] [place] [address] Field Engineer Obstetrics and Gynecology 11/16/18 Anahy Rosales MD [address] [facility] [place] [address] Referring Physician Psychiatry 11/16/18 Nathalia Rodas PT Physical Therapist Physical Therapy 02/14/23 documented as of this encounter
--- OUTSIDE RECORDS SUMMARY | 2024-11-15 03:23 | XMS_ITS | Encounter Summary ---
Author Organization [facility] Healthcare Address [address] [place] [address] Care Team Providers Care Security Controls Assessor Name Role Phone Laureano Lantigua MD Primary Care Provider [phone] Tony Washington MD Unavailable [phone] Anahy Rosales MD Unavailable [phone] Nathalia Rodas PT Unavailable Unavailable Reason for Visit * Reason Comments PT Treatment * Consultation (Routine) - Closed Specialty Diagnoses / Procedures Referred By Contмария t Referred To Contact Physical Therapy Diagnoses Left hip pain Cecilia Conn MD [address] [facility] [address] [place] [address] Phone: tel: fax: External Order Referral ID Status Reason Start Date Expiration Date V isits Requested Visits Authorized [id number] Closed Specialty Services Required 10/02/2023 10/31/2024 24 24 Encounter Details Date Type Department Care Team (Late st Contact Info) Description 11/26/2023 6:15 PM TECHNOLOGY RECRUITER Therapy [facility] [place] [address] Nathalia Rodas, PT Left hip pain (Primary [...] on file Legal Sex Female 1:37 AM TECHNOLOGY RECRUITER Gender Identity Female 10/03/2023 10:05 AM TECHNOLOGY RECRUITER Sexual Orientation Straight 10/03/2023 10 :05 AM TECHNOLOGY RECRUITER documented as of this encounter Progress Notes * Nathalia Rodas, PT - 11/26/2023 6:15 PM CST Physical Therapy Visit 11/26/23 Finesse Ramirez 1970, female [id number] Diagnosis Plan 1. Left hip pain 2. Encounter for other orthopedic aftercare Cecilia Conn MD [address] [facility] [address] [place] [address] Subjective: Patient had a good day yesterday. 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 She is not sleeping well, which causes her to not feel as well. Objective: See treatment provided. DOS: 10/07/23 Treatment [...] to offset weight from L LE* Assessment: Tolerated treatment fairly well. Progressed with resistance training and squats with fair tolerance and slight pain lateral down LE. Plan: Cont per POC progressing per protocol. Start Time: 1814 End Time: 1852 Nathalia Rodas PT, DPT, COMT NOLOGY RECRUITER documented in this encounter Plan of Treatment Not on file documented as of this encounter Visit Diagnoses Diagnosis Left hip pain- Primary Pain in joint, pelvic region and thigh Encounter for other orthopedic aftercare documented in this encounter Care Teams Security Controls Assessor Relationship Specialty Start Date End Date Laureano Lantigua MD [address] [facility] [place] [address] PCP - General Internal Medicine 07/30/18 Tony Washington MD [address] [facility] [address] [facility] [place] [address] Fuel Cell Engineer Obstetrics and Gynecology 11/16/18 Anahy Rosales MD [address] [facility] [address] [facility] [place] [address] Referring Physician Psychiatry 11/16/18 Nathalia Rodas PT Physical Therapist Physical Therapy 02/14/23 documented as of this encounter
--- OUTSIDE RECORDS SUMMARY | 2024-11-15 03:23 | XMS_ITS | Encounter Summary ---
Author Organization [facility] Healthcare Address [address] [place] [address] Care Team Providers Care Manufacturer Name Role Phone Laureano Lantigua MD Primary Care Provider [phone] Tony Washington MD Unavailable [phone] Anahy Rosales MD Unavailable [phone] Nathalia Rodas PT Unavailable Unavailable Reason for Visit * Reason Comments PT Treatment * Consultation (Routine) - Closed Specialty Diagnoses / Procedures Referred By Contмария t Referred To Contact Physical Therapy Diagnoses Left hip pain Cecilia Conn MD [address] [facility] [address] [place] [address] Phone: tel: fax: External Order Referral ID Status Reason Start Date Expiration Date V isits Requested Visits Authorized [id number] Closed Specialty Services Required 10/02/2023 10/31/2024 24 Encounter Details Date Type Department Care Team (Late st Contact Info) Description 12/10/2023 7:00 AM ANDROID SOFTWARE ENGINEER Therapy [facility] [place] [address] Nathalia Rodas, PT Left hip pain (Primary [...] on file Legal Sex Female 1:37 AM ANDROID SOFTWARE ENGINEER Gender Identity Female 10/03/2023 10:05 AM ANDROID SOFTWARE ENGINEER Sexual Orientation Straight 10/03/2023 10 :05 AM ANDROID SOFTWARE ENGINEER documented as of this encounter Progress Notes * Nathalia Rodas, PT - 12/10/2023 7:00 AM CST Physical Therapy Visit 12/10/23 Finesse Ramirez 1970, female [id number] Diagnosis Plan 1. Left hip pain 2. Encounter for other orthopedic aftercare Cecilia Conn MD [address] [facility] [address] [place] [address] Subjective: Finesse states she continues to feel pretty good. She is sore from yesterday but is overall okay. Objective: See treatment provided. Gait: ambulates without [...] hip Bridges red TB Clamshells red TB Reverse clamshells red TB Quad rock Cat Cow Side plank taps Side steps red TB Retro walking Mini squats Wall squats with SB SL balance - firm surface & blue foam Rockerboard fwd/bkwd Split lunge x10 each Octane x5 min Gait training of use of crutch or cane in R UE to offset weight from L LE* Assessment: Able to further progress with balance activities and split lunges today. Progressed to single leg bridges with report of soreness in posterior glutes but able to complete. Goals: ALL ONGOING LTG 1:: Pt will improve hip AROM to equal of R LE. LTG 2:: Pt will demonstrate 5/5 hip strength. LTG 3:: Pt will demonstrate gait pattern without significant impairments. LTG 4:: Pt will report LEFS 50/80 to indicate improved functional ability. Plan: Cont per POC progressing per protocol. Start Time: 703 End Time: 744 Nathalia Rodas PT, DPT, COMT OID SOFTWARE ENGINEER documented in this encounter Plan of Treatment Not on file documented as of this encounter Visit Diagnoses Diagnosis Left hip pain- Primary Pain in joint, pelvic region and thigh Encounter for other orthopedic aftercare documented in this encounter Care Teams Manufacturer Relationship Specialty Start Date End Date Laureano Lantigua MD [address] [place] [address] PCP - General Internal Medicine 07/30/18 Tony Washington MD [address] [facility] [address] [place] [address] Employment Office Clerk Obstetrics and Gynecology 11/16/18 Anahy Rosales MD [address] [facility] [place] [place] [address] Referring Physician Psychiatry 11/16/18 Nathalia Rodas PT Physical Therapist Physical Therapy 02/14/23 documented as of this encounter
--- OUTSIDE RECORDS SUMMARY | 2024-11-15 03:23 | XMS_ITS | Encounter Summary ---
Author Organization [facility] Healthcare Address [address] [place] [address] Care Team Providers Care Nurse Midwife Name Role Phone Laureano Lantigua MD Primary Care Provider + [phone] Tony Washington MD Unavailable [phone] Anayh Rosales MD Unavailable [phone] Nathalia Rodas PT Unavailable Unavailable Reason for Visit * Reason Onset Date Comments Refill 01/21/2024 Encounter Details Date Type Department Care Team (Late st Contact Info) Description 01/21/2024 Telephone [facility] [address] [place] [address] Laureano Lantigua MD [address] [place] [address] Refill Social History Tobacco Use Types Packs/Day Years [...] on file Legal Sex Female 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 Appt scheduled for 02/06/24. * Telephone Encounter - Tommy Tran RN - 01/22/2024 2:15 PM BREAKDOWN MILL OPERATOR Spoke with Dr. JAY this afternoon. He has concern that patient is requiring/requesting refills on Percocet beyond what was previously needed to control her pain. Dr. JAY actually contacted the patient this morning to discuss her pain/what is going on that she needs more than usual of her Percocet and patient became very upset with him. Our office does not prescribe long-term narcotic pain medication. Pain Management referral may need to be considered. Per Dr. JAY, the patient has an Orthopedic appointment on 02/04/24 and he expects he will see her thereafter. Also of note, patient does need to complete a new Controlled Substance Agreement at her next appointment (last agreement is dated 2019). I will continue to follow the patient per Dr. JAY request. KDOWN MILL OPERATOR * Telephone Encounter - Tatyana Akbar RN - 01/22/2024 1:15 PM CST Fwd to Tommy [employer]DOWN M[employer] OPERATOR * Telephone Encounter - Laureano Lantigua MD - 01/22/2024 12:11 PM BREAKDOWN MILL OPERATOR Please have tommy talk to me about [employer] [employer] M[employer] OPERATOR * Telephone Encounter - Liane Thakkar - 01/21/2024 2:33 PM BREAKDOWN MILL OPERATOR Patient asking for her pain meds to be refilled. States she had hip surgery in late September and saw provider before she went to surgery follow up. Pt has an order for hip injection. States she is still using a cane. States no longer just back, its now back and hip. [phone] [facility] K[employer] M[employer] OPERATOR documented in this encounter Plan of Treatment Not on file documented as of this encounter Visit Diagnoses Not on filedocumented in this encounter Discontinued Medications Medication Sig Discontinue Reason Start Date End Da te oxyCODONE-acetaminophen (PERCOCET) 5-325 mg per tabletIndications:Pain Take 1 tablet by mouth every 4 (four) hours as needed for pain Reorder 11/20/2023 01/22/2024 documented as of this encounter Care Teams Nurse Midwife Relationship Specialty Start Date End Date Laureano Lantigua MD [address] [place] [address] PCP - General Internal Medicine 07/30/18 Tony Washington MD [address] [place] [address] [address] [place] [address] Branch Controller Obstetrics and Gynecology 11/16/18 Anahy Rosales MD [address] [place] [address] [address] [place] [address] Referring Physician Psychiatry 11/16/18 Nathalia Rodas, PT Physical Therapist Physical Therapy 02/14/23 documented as of this encounter
--- OUTSIDE RECORDS SUMMARY | 2024-11-15 03:23 | XMS_ITS | Encounter Summary ---
Author Organization [facility] Healthcare Address [address] [place] [address] Care Team Providers Care Aged Or Disabled Carer Name Role Phone Laureano Lantigua MD Primary Care Provider + [phone] Tony Washington MD Unavailable [phone] Anahy Rosales MD Unavailable [phone] Nathalia Rodas PT Unavailable Unavailable Reason for Visit * Auth/Cert (Routine) Specialty Diagnoses / Procedures Referred By Contac t Referred To Contact Diagnoses Tear of left acetabular labrum, initial encounter Tear of left acetabular labrum, initial encounter [S73.192A] Procedures [place] UNLISTED PROCEDURE PELVIS/HIP JOINT ARTHROSCOPY HIP - LABRAL REPAIR - OSTEOCHONDROPLASTY Referral ID Status Reason Start Date Expiration Date Visits Re quested Visits Authorized [id number] 1 1 Encounter Details Date Type Department Care Team (Late st Contact Info) Description 10/07/2023 8:45 AM COMMERCIAL CARPET INSTALLER - 10/07/2023 10:45 AM COMMERCIAL CARPET INSTALLER Surgery [facility] [address] [place] [id number] Cecilia Conn MD [address] [facility] [address] [place] [address] LEFT HIP ARTHROSCOPY - OSTEOCHONDROPLASTY Surgery Details Date/Time Status Location OR Service Patient Class Case Class Case Type Trauma Case? 10/07/2023 8:45 AM Posted [facility] OC OPERATING ROOM OR 3 Orthopaedics Outpatient Elective Panel 1 Procedure LRB Anes Op Region Wound Class Comments LEFT HIP ARTHROSCOPY - OSTEOCHONDROPLASTY Left General Hip Class I - Clean Surgeon Surgeon Role Service Panel Rakesh Stapleton III, MD Resident - Assisting Or thopaedics 1 Cecilia Conn MD Primary Orthopaedics 1 Special Needs ALLERGY TO NYLON SUTURESSPECIAL NEEDS: S-N traction bed, Oratec probe, TA allograft if reconstruction needed, Renata Anchors, Cinchlock SS, Cinchlock Flex, Gia Tack, Samurai Blade, Slingshot, Nanopass, 1.8mm Knotless Hip FiberTak, 3.0mm Knotless Hi p SutureTak, 2.4mm PushLock (have available), 2.9mm PushLock (have available) documented in this encounter Social History Tobacco Use Types Packs/Day Years Used Date Smoking Tobacco: Never Smokeless Tobacco: Never Tobacco Cessation:Counseling Given: Not Answered Alcohol Use Standard Drinks/Week Comments Yes 0 [...] on file Legal Sex Female 1:37 AM COMMERCIAL CARPET INSTALLER Gender Identity Female 10/03/2023 10:05 AM COMMERCIAL CARPET INSTALLER Sexual Orientation Straight 10/03/2023 10 :05 AM COMMERCIAL CARPET INSTALLER documented as of this encounter Last Filed Vital Signs Vital Sign Reading Time Taken Comments Blood Pressure 148/78 10/07/2023 10:45 AM COMMERCIAL CARPET INSTALLER Pulse 77 10/07/2023 10:45 AM COMMERCIAL CARPET INSTALLER Temperature 36.5 ??C (97.7 ??F) 10/07/2023 7:16 AM CS T Respiratory Rate 17 10/07/2023 10:45 AM COMMERCIAL CARPET INSTALLER Oxygen Saturation 97% 10/07/2023 10:45 AM COMMERCIAL CARPET INSTALLER Inhaled Oxygen Concentration - - Weight 96.3 kg (212 lb 3.2 oz) 10/07/2023 7:16 A M COMMERCIAL CARPET INSTALLER Height 182.9 cm (6') 10/07/2023 7:16 AM COMMERCIAL CARPET INSTALLER Body Mass Index 28.78 10/07/2023 7:16 AM COMMERCIAL CARPET INSTALLER documented in this encounter Discharge Instructions * Discharge Instructions* Rakesh Stapleton III, MD - 10/07/2023 10:35 AM COMMERCIAL CARPET INSTALLER HIP ARTHROSCOPY POST-OP INSTRUCTIONS WEIGHT BEARING: Due to the surgical repair that was performed in your hip joint, please remain footflat weight bearing with crutches for 2 weeks. STATIONARY BIKE (NO RECUMBENT CYCLE!): Please begin cycling on a stationary bike as early as the night of your surgery, and no later than 36 hours post- operatively. Set the seat post high (so as to avoid bringing your hip into deep flexion while pedaling.) Cycle without resistance on the bike for the first 4 weeks, as your hip capsule is healing. Pedaling that requires too much effort may stretchthe healing capsule too soon after your surgery, thus compromising optimal healing. Your first session on the bike should be between 5-7 minutes. On the second post-op day, you may cycle twice, once in the morning and again in the evening, for 5-7 minutes each session. Every second or third day thereafter, incrementally increase the time cycling during each session by 10-15% untilyou are cycling 20-30 minutes twice per day. If your hip joint is sore the following day, scale back for several days. PHYSICAL THERAPY: You MUST start physical therapy 2 WEEKS after your surgery. Please be proactive about finding a place that is convenient for you and in- network in your insurance. Schedule an appointment and let us know where you are going so we can get the orders. If you need help finding a place, please contact the office. HIP ROM (RANGE OF MOTION): Avoid external rotation of your hip for 6 weeks post- op. Avoid excessiveROM (hip extension, flexion) for 6 weeks post-op. You may sleep on your back or on either hip, but avoid sleeping on your stomach for 4 weeks post-op, (due to external rotation of your hips while in this position.) DRESSINGS You may change the outer dressing (clear Tegaderm and gauze) if wet or soiled. Please do NOT removethe tape strips/steri-strips that are directly over your incisions. You may add more steri-strips on top of the original steri-strips that were placed at the end of your operation, but do not intentionally remove the original steri-strips. Let those fall off on their own about 10-14 days after surgery.You may remove your outside dressing (not the steri-strips) after 3 days, but cover your incision to shower. 3 weeks after surgery, you may remove the steri-strips. Please contact our office if the incision is not completely healed. SHOWERING: You may shower 48- 72 hours after your surgery, but cover your surgical site to avoid getting your incisions wet. Do NOT immerse in a hot tub, bath tub, or pool until after we see you at your first post-op visit and clear you for immersion. ICE COMPRESSION MACHINE/ICE PACKS: You may use the ice either an ice machine or ice packs as much as needed. We recommend not using it for sleeping. RETURN TO WORK: If you have a light duty/desk job, you may return to work as soon after surgery as you are comfortable. Physically demanding jobs may require up to 3 months of recovery before returning to work. WHEN CAN I DRIVE? When you are bearing full weight on the extremity, have muscle control of the extremity, you are off narcotic pain medication and you feel safe and comfortable behind the wheel. WHEN SHOULD I STOP THE MEDICATION? You may require pain medication for the first month after your surgery. You may be taking Indocin 75mg or Naproxen 500mg twice a day for 14 days to prevent heterotopic bone formation only if indicated. You will take a blood thinner medication for 3-4 weeks. (NO ADDITIONAL ANTI- INFLAMMATORY MEDS AT THIS TIME). After the course of blood thinner is finished, you may take anti-inflammatory or aspirin based medicine. In the interim, any questions about suture removal, physical therapy, activities, return to work, or any concerns or problems- please feel free to call. Nearly all of these issues can be addressed easily by telephone or [employer] message. Cecilia Bhatia MD Gold Reclaimer Adult Reconstruction-Adolescent and Young Adult Hip Service [facility] FORREST Benedict, RN Clinical Nurse Coordinator ERCIAL CARPET INSTALLER documented in this encounter Medications at Time of Discharge albuterol HFA (PROVENTIL HFA,VENTOLIN HFA,PROAIR HFA) 90 mcg/actuation inhaler 2 puffs qid prn 1 each 01/04/2022 ferrous sulfate 325 mg (65 mg of [...] hours as needed for pain 30 tablet 10/07/2023 3 progesterone (PROMETRIUM) 200 mg capsule One pill for 12 days every 3 months. 12 capsule 3 04/07/2023 4 scopolamine 1 mg over 3 days patch [address] 1 PATCH ON THE SKIN ONCE FOR 1 DOSE 09/26/2023 4 documented as of this encounter Ordered Prescriptions Prescription Sig Dispense Quantity Refills Last Filled Start Date End Date oxyCODONE-acetamin ophen (PERCOCET) 5-325 mg per tabletIndications: Pain Take 1 tablet by mouth every 4 (four) hours as needed for pain 30 tablet 10/07/2023 10/20/2023 HYDROcodone-acetam inophen (NORCO) 5-325 mg per tabletIndications: Pain Take 1 tablet by mouth every 4 (four) hours as needed for pain 30 tablet 10/07/2023 10/07/2023 documented in this encounter Discharge Disposition Disposition Code Departure Means Destination Comment s Discharge to home or self care documented in this encounter H&P Notes * Rakesh Stapleton III, MD - 10/07/2023 7:21 AM CST I have reviewed the H&P, examined the patient, and endorse the findings as written. Plan of Care : Based on the above findings, I consider Finesse Ramirez to be an acceptable risk for : Procedure(s): ARTHROSCOPY HIP - LABRAL REPAIR - OSTEOCHONDROPLASTY Cosigned by Cecilia Conn MD at 10/07/2023 2:02 PM COMMERCIAL CARPET INSTALLER ERCIAL CARPET INSTALLER ERCIAL CARPET INSTALLER Source Note - Aimee Sanchez NP - 09/26/2023 12:36 PM COMMERCIAL CARPET INSTALLER Images from the original note were not included. [facility] for Preoperative Assessment and Planning Preoperative Evaluation Record Evaluation type/location: TPAP from [facility] Planned procedure site: [facility] Center OR Date: [...] s/p gastric sleeve) Pertinent negatives: CAD ; CT ; CABG ; valvular heart disease; atrial [...] Hepatic / Heme + Liver disease - AOLNZO. Gastrointestinal + GERD - on daily therapy. [...] provided by telephone and electronically sent via [employer]. Patient verbalized understanding of instructions. Blood bank [...] History: Diagnosis Date Anxiety Asthma Asthma; Comments: [facility] 06/27/2014 - Cancer (CMS/HCC) (HCC) 2020 basal cell carcinoma removed from [facility] with the [facility]'s Female infertility Infertility, female Fibrocystic breast GERD (gastroesophageal reflux disease) Hammer toe Hammer toe; Comments: [facility] 06/27/2014 - HX OTHER MEDICAL Sinusitis, ADD, diverticulosis, obesity, OA, asthm HX OTHER MEDICAL Depression, with Anxiety; PCOS HX OTHER MEDICAL Missed Ab HX OTHER MEDICAL ; Outcome: 37W0D week 7lb(s) 7 oz Male Hypercholesterolemia High cholesterol; Comments: [facility] 06/27/2014 - Hypertension Hypertension Motion sickness Retinal detachment Detachment of retina; Comments: [facility] 06/27/2014 - Past Surgical History: Procedure Laterality Date ANKLE SURGERY Left 2008 Ankle surgery ANTERIOR CRUCIATE LIGAMENT REPAIR Right 2008 Right ACL repair CARDIAC CATHETERIZATION 2013 CARPAL TUNNEL RELEASE Bilateral 1992 Carpal tunnel release CHOLECYSTECTOMY 03/2018 COLONOSCOPY 03/27/2021 1st COMBINED HYSTEROSCOPY DIAGNOSTIC / D&C 03/12/2023 DILATION AND CURETTAGE OF UTERUS 2010 Missed Ab: Suction D&C; ELBOW SURGERY Left 11/07/2020 x2 ENDOMETRIAL ABLATION 03/12/2023 [facility] 07/2021 [facility] OTHER SURGICAL HISTORY [...] last 30 days. Wayne index score: 100 ERCIAL CARPET INSTALLER * Flor Davidson NP - 10/07/2023 6:51 AM CST Outpatient Pre-Procedure History and Physical Subjective Patient is a 53 y.o. female with chief complaint of left hip pain. Indication For Procedure: Pre-op Diagnosis * Tear of left acetabular labrum, initial encounter [S73.192A] Planned Procedure ARTHROSCOPY HIP - LABRAL REPAIR - OSTEOCHONDROPLASTY (L) HPI: Patient is a 53 year old female wit a tear of the left acetabular labrum who presents today for left hip labral repair, osteochondroplasty. 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 Cancer ([facility]) (HCC) 2020 basal cell carcinoma removed from [employer] [facility] [employer] with the [facility] Female infertility Infertility, female Fibrocystic breast GERD (gastroesophageal reflux disease) Hammer toe Hammer toe; Comments: [facility] 06/27/2014 - HX OTHER MEDICAL Sinusitis, ADD, diverticulosis, obesity, OA, asthm HX OTHER MEDICAL Depression, with Anxiety; PCOS HX OTHER MEDICAL Missed Ab HX OTHER MEDICAL ; Outcome: 37W0D week 7lb(s) 7 oz Male Hypercholesterolemia High cholesterol; Comments: [facility] 06/27/2014 - Hypertension Hypertension Motion sickness Retinal detachment Detachment of retina; Comments: [facility] 06/27/2014 - Past Surgical History: Procedure Laterality [...] Sleeve SPINAL FUSION 2010 Spinal fusion L5-S1 Medications Prior to Admission Medication Sig Dispense Refill Last Dose busPIRone (BUSPAR) 10 mg tablet Take 1 tablet (10 mg total) by mouth daily as needed (anxiety) (Patient taking differently: Take 1 tablet (10 mg total) by mouth daily as needed (anxiety)) 30 tablet estradioL (VIVELLE-DOT) 0.05 mg/[address] one patch on the skin twice weekly (Patient taking differently: Place 1 patch on the skin once a week Place one patch on the skin twice weekly) 24 patch 3 Past Week ferrous sulfate 325 mg (65 mg of elemental iron) tablet Take 1 tablet (325 mg total) by mouth dailywith breakfast 10/06/2023 ibuprofen (ADVIL,MOTRIN) 400 mg tablet Take 1 tablet (400 mg total) by mouth every 6 (six) hours asneeded for pain Past Week magnesium phosphate, bulk, powder Take 1 tablet by mouth every morning Past Week methylphenidate ER (CONCERTA) 27 mg CR tablet Take 1 tablet (27 mg total) by mouth every morning Past Week methylphenidate HCl (RITALIN) 5 mg tablet Take 1 tablet (5 mg total) by mouth daily with lunch PastWeek naproxen (NAPROSYN) 500 mg tablet Take 2 with breakfast the day before surgery then one tablet twice a day for 14 days 30 tablet 0 10/06/2023 oxyCODONE-acetaminophen (PERCOCET) 5-325 mg per tablet Take 1 tablet by mouth every 8 (eight) hoursas needed for pain 20 tablet 0 Past Week progesterone (PROMETRIUM) 200 mg capsule One pill for 12 days every 3 months. (Patient taking differently: Take 1 capsule (200 mg total) by mouth as directed One pill for 12 days every 3 months.) 12 capsule 3 Past Month traZODone (DESYREL) 50 mg tablet Take 1 tablet (50 mg total) by mouth nightly Past Week UNABLE TO FIND Take 1 each by mouth every morning Med Name: Prebiotic Plus Past Month albuterol HFA (PROVENTIL HFA,VENTOLIN HFA,PROAIR HFA) 90 mcg/actuation inhaler 2 puffs qid prn (Patient taking differently: Inhale 2 puffs every 6 (six) hours as needed for wheezing or shortness of breath 2 puffs qid prn) 1 each 11 Unknown aspirin 81 mg enteric coated tablet Take 1 tablet (81 mg total) by mouth 2 (two) times a day 60 tablet 0 Unknown carisoprodoL (SOMA) 350 mg tablet Take 1 tablet (350 mg total) by mouth nightly as needed for muscle spasms 15 tablet 0 Unknown ondansetron (ZOFRAN) 4 mg tablet Take 1 tablet (4 mg total) by mouth every 6 (six) hours as needed for nausea or vomiting 40 tablet 0 Unknown senna-docusate (Senna-S) 8.6-50 mg Take 1-2 tablets by mouth 2 (two) times a day 60 tablet 0 Unknown Allergies Allergen Reactions Erythromycin Rash Nylon Rash Stitches-severe redness: had to be removed early Morphine Nausea & Vomiting Vicodin [Hydrocodone-Acetaminophen] Vomiting Social History Tobacco Use Smoking status: Never Smokeless tobacco: Never Substance and Sexual Activity Drug use: No Sexual activity: Defer control/protection: None Alcohol Use: Not At Risk (09/19/2023) AUDIT-C Frequency of Alcohol Consumption: 2-3 times a week Average Number of Drinks: 1 or 2 Frequency of Binge Drinking: Never Social History Substance and Sexual Activity Drug Use No Vitals: 09/19/23 1000 10/07/23 0715 10/07/23 0716 BP: 140/79 BP Location: Right arm Pulse: 65 62 Resp: 16 Temp: 36.5 ??C (97.7 ??F) TempSrc: Temporal SpO2: 98% 97% Weight: 94.8 kg (209 lb) 96.3 kg (212 lb 3.2 oz) Height: 182.9 cm (6') 182.9 cm (6') Review of Systems: Review of systems per HPI and otherwise all other systems are negative Physical exam: Lungs: clear to auscultation bilaterally Heart: regular rate and rhythm, S1, S2 normal, no murmur, click, rub or gallop Neurologic: Alert and oriented x4, grossly intact Urine hCG- NEG Flor Davidson NP Cosigned by Cecilia Conn MD at 10/07/2023 2:02 PM COMMERCIAL CARPET INSTALLER ERCIAL CARPET INSTALLER ERCIAL CARPET INSTALLER documented in this encounter Miscellaneous Notes * Op Note - Cecilia Conn MD - 10/07/2023 9:15 AM CST OPERATION NOTE on Finesse Ramirez Diagnosis: Hyperthrophic Symptomatic Labrum and Early OA Indication: Failure to obtain satisfactory results with long standing conservative measures. Operation: Arthroscopic left, Hip Arthroscopy ,Labrum Debridement, Chondroplasty and Capsula Repair Surgeon: Cecilia Bhatia MD Atomizer Assembler: Enrique Valero, Resident PGY2 Anaesthetic: General Findings - left Hip: Labrum: Hypertrophic and Torn Acetabulum: Early fibrillation Fovea: Normal Lig Teres Femoral Head: Normal Synovium: mild synovitis Peripheral Compartment: No cam lesion Procedure: Supine on operating table. General anaesthetic. Antibiotics given. Standard traction set up, with perineal post. A spinal needle was guided to the femoral head neck junction and traction gradually applied with the joint vented. Local anesthetic infiltrated into the skin around the portals. Once 10mm of distraction was achieved the hip needle was then passed into the joint staying as close to the femoral head as possible. A Nytenol wire was passed through the hip needle ensuring that it passed all the way to the fovea to confirm central placement of the needle. Skin was incised and then the portals sequentially dilatedto 7 mm. Switching stick inserted and 70? scope passed over the top. Under dry scope conditions theanterior portal was created by passing the hip needle into the joint under direct vision. Again this was dilated up to 7 mm and the slotted canule was inserted. The saline was then turned on and the joint irrigated. The joint was carefully inspected and photographed with findings as above. A longitudinal intra portal capsulotomy was then performed using mechoopda blade and the 50? Arthrocare wand toconnect the two portals. Central Compartment Intervention: Inspection of the joint showed a massive hypertrophic labrum that covered 2/3 of the femoral head. I used the electrocauterization device to reduce the size of the labrum and performed a debridement.This allowed us to reduce the size of the labrum to a more natural morphology. There was already some signs of cartilage breakdown. Peripheral Compartment Intervention: Patient was taken from traction. A dynamic impingement test was undertaken and vision with 90 of flexion and 15 of internal rotationto confirm that there was no bony or soft tissue impingement or deformation of the labrum. Good clearance was obtained with good labral seal. The joint was thoroughly irrigated of any loose debris and the anterior capsule was repaired with 2No.xx braid stitches, closing 100% of the capsulotomy. The slingshot and the injector were used to close the capsule. The skin was then closed with sub dermal vicryl and Nylon. Padded dressing was applied. After surgery, she moved both lower limbs and had no NV compromise. The patient tolerated the procedure well. There were no complications. The patient was delivered tothe recovery room in good condition. The sponge and needle counts were correct. Cecilia Ruggiero MD was present for all the case Kind regards, Cecilia Bhatia MD ERCIAL CARPET INSTALLER * Brief Op Note - Rakesh Stapleton III, MD - 10/07/2023 9:15 AM COMMERCIAL CARPET INSTALLER Operative Progress Note Surgical Team: Surgeon(s) and Role: * Cecilia Conn MD - Primary * Rakesh Stapleton III, MD - Resident - Assisting Anesthesiologist: Donald Grant MD CIGAR BRANDER: Joycelyn Camacho CRNA Emergency Medical Dispatcher: Alma Talbot RN Ceiling Cleaner: Tatiana Chandler RT Scrub: Girma Mejia RN Orientee Scrub: Carli Richardson RN DATE OF SURGERY : 10/07/2023 Preoperative Diagnosis: Pre-op Diagnosis * Tear of left acetabular labrum, initial encounter [S73.192A] Postoperative Diagnosis: Post-op Diagnosis * Tear of left acetabular labrum, initial encounter [Q93.192A] Procedure(s): Procedure(s) (LRB): LEFT HIP ARTHROSCOPY - OSTEOCHONDROPLASTY (Left) Operative Findings: Labrum debridement Estimated Blood Loss: 10 mL Intraoperative Fluids: See anesthesia Specimens: No specimen collected in procedure Implants: Nothing was implanted during the procedure Blood/Blood Products Transfused: 0 mls Complications: None Condition on Discharge from the operating room was stable Rakesh Stapleton III, MD Date: 10/07/2023 Time: 10:22 AM TEACHING ATTESTATION : I was present and directly participated in the entire procedure (including opening and closing). Cosigned by Cecilia Conn MD at 10/07/2023 2:02 PM COMMERCIAL CARPET INSTALLER ERCIAL CARPET INSTALLER ERCIAL CARPET INSTALLER * Perioperative Nursing Note - Shira Garcia RN - 10/07/2023 7:06 AM COMMERCIAL CARPET INSTALLER Pt states will drive her home and provide 24 hrs care. ERCIAL CARPET INSTALLER * Pre-Procedure Instructions - Maryjo Elam RN - 10/06/2023 10:24 AM COMMERCIAL CARPET INSTALLER We are pleased that you and your doctor have chosen [facility] for your surgery. We hope the following information will help make your visit a pleasant one. The name of the building is [facility] in [place]. Directions to facility (address is [address] [place] [address], [address] ). [facility] exit. [address] [id number] When you enter the building, look directly to your left, you will see 2 glass double doors. These double doors say [address]. Go through those double doors and check in with the digital assistant. Bring inhaler. Patient has own crutches and knows how to use them. Bring pillows, leave in car. Pt has [employer] ice machine. Will need Urine sample a.m. Of surgery. Please let the digital assistant know if you need to empty your bladder when you arrive. Wear loose-fitting clothes. Something with an elastic waist on the bottom, such as gym shorts or sweat pants depending on the weather. T-shirt on top or a shirt with a loose sleeve unless you are having shoulder surgery then wear a loose- fitting button-down shirt or a shirt that zips up the front. Pt instructed not to eat or drink anything after Midnight. No gum, no mints, no candy, no cough drops, no CBD oil, no marijuana, no Chewing tobacco, or vaping. No ice or water. You may brush your teeth, just make sure you spit it all out. Instructed to patient to refer to [facility] surgery guide page 6 for any questions regarding eating and drinking day of surgery. For medications that the Nurse Practitioner instructed you to take on the morning of surgery, take the medications with a few sips of water. Pt's. CATHY ANTON [phone] will be with patient and 19 Y.O. SON OR PARTNER WILL care for patientfor the first 24 hours post-op. Pt. Instructed to arrive at 0645 for 0845 procedure. Procedure is scheduled for 2 hour(s). Pt. Denies any of the following symptoms: Nausea/vomiting/diarrhea, loss of taste or smell, rash orsores, body/muscle/joint aches, cough, sore throat, fever/chills, severe headache or Shortness of breath. Pt. is asymptomatic and denies any exposure to Covid or any Covid symptoms. Explained to patient, if you develop any symptoms of fever, chills, headache, cough, sore throat, body aches or is exposed to anyone that has been diagnosed, tested or quarantined for the COVID-19 you will not be allowed to enter the building or to have your surgery per anesthesia's guidelines. Explained to patient to please call the morning of surgery, any time after 5:30 a.m. if you or your caregiver develops any of these symptoms or is exposed to anyone that has been diagnosed, tested or quarantined for COVID-19. Pt. Reports understanding. Once your physician has completed your surgery, he will call your caregiver to notify them your surgery is complete, and you are heading to the Recovery room. Your caregiver will not be called back to be with you until you are awake and ready for discharge. The nurse who is caring for you will callyour caregiver to come back to be with you for discharge instructions. Explained to patient that the self-serve cafe is across the estes from the surgery center. Explainedto patient if their caregiver would like anything to eat or drink, they may bring their own or purchase it from the refreshment area. ERCIAL CARPET INSTALLER * Pre-Procedure Instructions - Aimee Sanchez NP - 09/26/2023 11:53 AM CST [facility] CPAP Clinic Location: [facility] CPAP The night before your surgery: * Do not eat anything after midnight the night before your procedure. and * Do not smoke or use tobacco products after midnight the night before surgery. It is best to stop smoking now to improve your health. The morning of your surgery: * You may have clear liquids on your surgery day. You must stop drinking two hours before you arrive to the surgery facility. Acceptable clear liquids include water, clear sports drinks, black coffee, or clear soda. DO NOT drink any milk, creamer, or alcohol. * Your surgeon's office may have provided additional instructions or restrictions. Please follow those instructions. * You may brush your teeth and rinse your mouth out. * Do not glue your dentures. * Do not wear jewelry, body piercings, makeup, hairpins, false eyelashes or contact lenses to the hospital. * Leave any valuables at home or with your family. * If you have an implantable device with a remote, bring the remote with you on the day of surgery. * If you use home oxygen, bring your portable oxygen tank with you on the day of surgery * If having surgery at [facility], you may want to bring a credit card if you want to use our Mobile Pharmacy for your discharge medications. Mobile pharmacy is not available at [facility], the Orthopedic Center, or the [facility]. Outpatient Surgery: * You must have a responsible adult drive you home and stay with you for 24 hours after your surgery * You cannot be alone at home or in a hotel * Please call your surgeon's office if you do not have someone to drive you home and/or stay with you after surgery Instructions For Your Medications: Pre-Surgery Instructions: Medication Instructions albuterol HFA (PROVENTIL HFA,VENTOLIN HFA,PROAIR HFA) 90 mcg/actuation inhaler Take on day of surgery if needed busPIRone (BUSPAR) 10 mg tablet Take on day of surgery if needed carisoprodoL (SOMA) 350 mg tablet Take per usual schedule ferrous sulfate 325 mg (65 mg of elemental iron) tablet Don't take on day of surgery ibuprofen (ADVIL,MOTRIN) 400 mg tablet Take on day of surgery if needed magnesium phosphate, bulk, powder Don't take on day of surgery methylphenidate ER (CONCERTA) 27 mg CR tablet Don't take on day of surgery methylphenidate HCl (RITALIN) 5 mg tablet Don't take on day of surgery oxyCODONE-acetaminophen (PERCOCET) 5-325 mg per tablet Take on day of surgery if needed progesterone (PROMETRIUM) 200 mg capsule Take per usual schedule traZODone (DESYREL) 50 mg tablet Take per usual schedule Probiotic Plus Don't take on day of surgery estradioL (VIVELLE-DOT) 0.05 mg/24 hr Take per usual schedule General Instructions For Medications: * You may continue your non-steroidal anti-inflammatory medication: Ibuprofen For medications that you are instructed to take on the morning of surgery, take the medications with a few sips of water. Stop all of these medications 7-14 days prior to your surgery: Vitamin E, Herbal medicines, Diet Pills If you use inhalers, please bring them with you on the day of your procedure. If you have pain, you may take tylenol (acetaminophen). Do not take more than 6 tablets or 3000 mg (3 g) within a 24 period. If your procedure is scheduled at the Orthopedic Center, a scopolamine patch will be sent to your pharmacy to help prevent nausea after surgery. After your shower the night prior to surgery, place the patch behind your ear on the opposite side of your planned operation. Wash your hands after placing the patch. If you touch your eyes after you place the patch it may cause your pupils to dilate. You may leave the patch on for up to 3 days. If you have difficulty emptying your bladder while the patch is in place, remove the patch, throw it away, and your symptoms should resolve. Call your surgeon and the CPAP clinic if any of the following happens before surgery: Any changes in your health You have a fever You have any signs of an infection (chest, urinary tract or tooth) You have been to the Emergency Room or were in the hospital You have started taking any new medications You have questions about a bowel prep or special diet before surgery You have symptoms of COVID-19 such as a new or worsening cough, shortness of breath, fever, body aches, loss of taste or smell, diarrhea or vomiting, or sore throat. You have a household contact with COVID-19. You test positive for COVID-19. 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 Vitals: 09/19/23 1000 Weight: 94.8 kg (209 lb) Height: 182.9 cm (6') Social History Tobacco Use Smoking Status Never Smokeless Tobacco Never Substance and Sexual Activity Drug Use No Alcohol Use Q1: How often do you have a drink containing alcohol?: 2-3 times a week Q2: How many drinks containing alcohol do you have on a typical day when you are drinking?: 1 or 2 Q3: How often do you have six or more drinks on one occasion?: Never Outpatient Medications Marked as Taking for the 10/07/23 encounter (Hospital Encounter) Medication Sig Dispense Refill albuterol HFA (PROVENTIL HFA,VENTOLIN HFA,PROAIR HFA) 90 mcg/actuation inhaler 2 puffs qid prn (Patient taking differently: Inhale 2 puffs every 6 (six) hours as needed for wheezing or shortness of breath 2 puffs qid prn) 1 each 11 busPIRone (BUSPAR) 10 mg tablet Take 1 tablet (10 mg total) by mouth daily as needed (anxiety) (Patient taking differently: Take 1 tablet (10 mg total) by mouth daily as needed (anxiety)) 30 tablet 5 carisoprodoL (SOMA) 350 mg tablet Take 1 tablet (350 mg total) by mouth nightly as needed for muscle spasms 15 tablet 0 ferrous sulfate 325 mg (65 mg of elemental iron) tablet Take 1 tablet (325 mg total) by mouth dailywith breakfast ibuprofen (ADVIL,MOTRIN) 400 mg tablet Take 1 tablet (400 mg total) by mouth every 6 (six) hours asneeded for pain magnesium phosphate, bulk, powder Take 1 tablet by mouth every morning methylphenidate ER (CONCERTA) 27 mg CR tablet Take 1 tablet (27 mg total) by mouth every morning methylphenidate HCl (RITALIN) 5 mg tablet Take 1 tablet (5 mg total) by mouth daily with lunch oxyCODONE-acetaminophen (PERCOCET) 5-325 mg per tablet Take 1 tablet by mouth every 8 (eight) hoursas needed for pain 20 tablet 0 progesterone (PROMETRIUM) 200 mg capsule One pill for 12 days every 3 months. (Patient taking differently: Take 1 capsule (200 mg total) by mouth as directed One pill for 12 days every 3 months.) 12 capsule 3 traZODone (DESYREL) 50 mg tablet Take 1 tablet (50 mg total) by mouth nightly UNABLE TO FIND Take 1 each by mouth every morning Med Name: Prebiotic Plus Implants No active implants to display in this view. 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 Arrival time and surgical time will be provided to the patient by their surgeon. You should wear clothing that is clean, loose, comfortable and easy to get in and out of on the dayof surgery. You should remove nail coverings, artificial nails and nail australian prior to the day of surgery. You should leave your valuables and any jewelry at home. No metal or piercings are allowed in the operating room. You should bring your insurance card, a photo ID (example: Director Of Preclinical Research's License) and a method of payment for any insurance copay, deductible or copay for discharge medications. You should bring a complete, up-to-date, list of all your medications on the day of surgery, including any over the counter medications or supplements you may take. Please note on your medication list, the last date & time you took each medication. The healthcare team, on the day of surgery, will ask for this information. You should bring your Advanced Directive and/or Living Will with you on the day of surgery if you have not verified a copy is already in your Epic Chart. If you are having surgery at [facility], please arrive on the day of surgery with the name and phone number of your local 24 hour pharmacy. Due to evening discharges, your routine pharmacy may be closed. In order to obtain your prescriptions that evening, your surgeon may need to send prescriptions to this pharmacy or have you take prescriptions to this pharmacy when you are discharged. Without this information, you may not be able to obtain your prescriptions that evening. A Guide for Patients Having Surgery: Your Pathway to Excellent Care OUR GOAL IS TO PROVIDE YOU WITH EXCELLENT CARE Use this guide to learn about what you can do before, during and after surgery to help your recovery. You are the most important person on your health care team. By becoming informed and involved, you can contribute to the success of your surgery. If your surgeon's directions are different than those in this guide, talk with your nurse or surgeon to confirm the information. It is important that you understand how to take care of yourself at home after surgery. Be sure to bring this guide with you on the day of surgery and take it home with you after surgery. Write down questions for your nurse or surgeon on the last page of this booklet. Important pages to be reviewed BEFORE surgery: Page 1: QR codes for Surgery Center maps Page 3: Types of Anesthesia Page 5: Tips for the day & night before surgery Page 6: When to stop eating BEFORE surgery and examples of clear liquids Page 7-10: Preventing Infection: Chlorhexidine Gluconate (CHG) Bathing Instructions You may access A Guide for Patients Having Surgery: Your Pathway to Excellent Care by the followinglink: [email or web address] How To Prepare Your Skin For Surgery Below is the Pre-Surgical Bathing Protocol you should follow for your surgery. If your surgeon provides you different bathing instructions, please follow your surgeon's orders. 2 Day CHG Bathing Protocol (no nasal ointment) PREVENTING INFECTION (DECOLONIZATION): Decolonization is the use of a topical antiseptic soap and sometimes a nasal ointment to remove bacteria (germs) from the skin's surface. Antiseptic soap: Chlorhexidine gluconate or CHG (brand name: Hibiclens??) Before surgery, your entire body must be thoroughly cleaned. CHG helps to reduce the bacteria on your skin. You may be given one or more bottles of CHG or you may be asked to obtain from your preferred pharmacy. Be sure to ask your pharmacist if you need help finding this product. SHOWERING WITH ANTISEPTIC SOAP (CHG) What You Need For Each Shower 60 mL (?? cup) of CHG 2 clean washcloths CHG Bathing Instructions First, shampoo and rinse your hair with your own shampoo (no conditioners). Do this so the antiseptic soap isn't washed off by your shampoo. Wash face with warm water. Turn off shower and stand away from the water. Use 2 clean washcloths to apply the antiseptic soap to all areas as described below: Pour 30 mL (1/8 cup) of CHG on washcloth #1: Using washcloth- start at jawline and firmly massage the soap into the skin in a circular motion to clean neck, shoulders, chest, back, both armpits, arms, hands and abdomen. Finish with legs and feet. Pour 30 mL (1/8 cup) of CHG on washcloth #2: Using washcloth- firmly massage the soap into the skinin a circular motion to clean groin area, perineum and buttocks. (Do not use CHG on genital area.) Tapia Points: The CHG antiseptic soap will not bubble or lather very much. If you get soap in your eyes, ears or mouth, rinse well with cool water. When finished, leave the soap on your skin for 2 minutes before rinsing. Dry off with a clean fresh towel. Wear clean clothes or pajamas to sleep in. After showering DO NOT put on deodorant, hair products or conditioners, lotions or creams, powders,Vaseline or any non-essential products. If you cannot reach the surgical site, such as the back, please have someone help you. Shaving: You may shave your face, legs and underarms during your evening shower before you apply the CHG antiseptic soap. Be careful not to cut or sofia your skin. Avoid shaving on the day of surgery. Deodorant: Patients following the 5-Day CHG protocol may apply deodorant on the days leading up to surgery, being sure, however, to avoid use on the evening before and day of surgery. All other products should be avoided for the full 5 days. 2-Day CHG Bathing Protocol The Evening Before Surgery: Take a shower with Antiseptic soap (CHG). Follow the steps for ???Showering with Antiseptic Soap (CHG)?? above. Change all linens on your bed so you are sleeping in clean fresh sheets and pillowcases. Remove nail coverings, artificial nails and nail australian. The Morning of Surgery: Take a shower with Antiseptic soap (CHG). Follow the steps for ???Showering with Antiseptic Soap (CHG)?? above. Put clean clothes on after you shower. Travel/Exposure Screening: Travel Screening Have you traveled outside the [place] in the last 6 months?: Yes Were you hospitalized in any country besides [place] in last 6 months?: No Have you traveled outside of the [place] in the last 30 days?: No Exposure Screening Have you been exposed to anyone who is sick in the last 30 days?: No Have you been exposed to or tested positive for COVID-19 within the last 10 days?: No Infectious Disease Screening Are you having any of the following:: None As of 09/10/2022 any COVID TESTING required for surgery will be set up by your surgeon's office. Please reach out to your surgeon's office if you develop any COVID symptoms, test positive for COVID or are exposed to a COVID positive person. If you have questions, please call the CPAP Staff at [phone], Friday-Friday 8am-4:30pm. All patients should read the below section: COVID 19 Updates & Visitor Policy: Please access [email or web address] for the most updated information. Information on [facility] & the Orthopedic Center: Please view [email or web address] (Patient & Visitor Information) for additional details regarding Advanced Directive forms, AWARE, directions, parking information, lodging, Internet access, dining and more. Information on [facility] or [facility] ([facility]): Please view [email or web address] (Patient and Visitor Information) for parking/directions and more. For MyChart information, to activate account or password recovery, please go to [email or web address] or call [phone] (toll-free: [phone]), Fri- Friday 8am-5pm. Information for Suicide Prevention: National Suicide Prevention Lifeline (1-677- 910-SGBC (1711)). Surgery Times: For patients having surgery @ [facility], if your surgeon's office has not notified you of your surgery time by NOON THE BUSINESS DAY BEFORE your surgery, please call the surgery center [phone]. documented in this encounter Plan of Treatment Not on file documented as of this encounter Procedures Procedure Name Priority Date/Time Associated Diagnosis Comments FL FLUOROSCOPY < 1 HOUR IP Routine 10/07/2023 10:13 AM COMMERCIAL CARPET INSTALLER ARTHROSCOPY HIP - LABRAL REPAIR 10/07/2023 8:45 AM COMMERCIAL CARPET INSTALLER Tear of left acetabular labrum, initial encounter Special Needs ALLERGY TO NYLON SUTURESSPECIAL NEEDS: S-N traction bed, Oratec probe, TA allograft if reconstruction needed, Shiloh Anchors, Cinchlock SS, Cinchlock Flex, Gia Tack, Samurai Blade, Slingshot, Nanopass, 1.8mm Knotless Hip FiberTak, 3.0mm Knotless Hi p SutureTak, 2.4mm PushLock (have available), 2.9mm PushLock (have available) POCT HCG, URINE Routine 10/07/2023 7:33 AM COMMERCIAL CARPET INSTALLER documented in this encounter Results * FL Fluoroscopy < 1 Hour (10/07/2023 10:13 AM COMMERCIAL CARPET INSTALLER) Narrative [facility] - 10/07/2023 10:13 AM COMMERCIAL CARPET INSTALLER The images from this study are not interpreted by Radiology. ??Please refer to the physician's procedure / OR operative note. Cecilia Ruggiero MD IMG FLUOROSCOPY PROCE DURES Final Result RAD_[facility] * POCT hCG, urine (10/07/2023 7:33 AM COMMERCIAL CARPET INSTALLER) HCG, ur, POC Negative Negative Lot Number 1 QC Backgroud Clear Acceptable QC Control Line Acceptable Urine 10/07/2023 7:33 AM COMMERCIAL CARPET INSTALLER Jesse Diallo MD POINT OF CARE TEST ORDER KAI Final Result documented in this encounter Visit Diagnoses Diagnosis Tear of left acetabular labrum, initial encounter Labral tear of hip, degenerative Tear of left acetabular labrum, initial encounter documented in this encounter Admitting Diagnoses Diagnosis Tear of left acetabular labrum Labral tear of hip, degenerative documented in this encounter Administered Medications Inactive Administered Medications - up to 3 most recent administrations Medication Order MAR Action Action Date Dose Rate Site BUPivacaine-EPINEPHrine (MARCAINE with EPI) 0.5 %-1:200,000 preservative free injection As needed, Starting on Fri10/07/23 at 0928, Intra-Op Given 10/07/2023 9:28 AM COMMERCIAL CARPET INSTALLER 15 mL Surgical Site fentaNYL (SUBLIMAZE) preservative free syringe 25 mcg 25 mcg, intravenous, Every 10 min PRN, 1st line for pain, Starting on Fri10/07/23 at 1030, For 4 doses, Phase I, Notify anesthesiologist if total PACU dose reaches 100 mcg AND pain score 5/10 or more. When patient able to tolerate PO, proceed to 2nd line analgesic agent for pain management., Indications: PainIndications:Pain Given 10/07/2023 11:02 AM COMMERCIAL CARPET INSTALLER 25 mcg Given 10/07/2023 10:49 AM COMMERCIAL CARPET INSTALLER 25 mcg Lactated Ringer's (LR) infusion 30 mL/hr, intravenous, Continuous, Starting on Fri10/07/23 at 0745, Pre-Op, Use a 500 ml bag for End Stage Renal Disease Patients New Bag 10/07/2023 9:56 AM COMMERCIAL CARPET INSTALLER Rate/Dose Verify 10/07/2023 8:48 AM COMMERCIAL CARPET INSTALLER 30 mL/h r New Bag 10/07/2023 7:32 AM COMMERCIAL CARPET INSTALLER 30 mL/hr 30 mL/hr Lactated Ringer's (LR) irrigation As needed, Starting on Fri10/07/23 at 0927, Intra-Op Given 10/07/2023 9:27 AM COMMERCIAL CARPET INSTALLER 6,000 mL Surgical Site oxyCODONE-acetaminophen (PERCOCET) 5-325 mg per tablet 2 tablet 2 tablet, oral, Once, On Fri10/07/23 at 1145, For 1 dose, Phase I & Post-op Floor, Indications: PainIndications:Pain Given 10/07/2023 11:22 AM COMMERCIAL CARPET INSTALLER 2 tablets documented in this encounter Discontinued Medications Medication Sig Discontinue Reason Start Date End Da te magnesium amino acid chelate (mag amino acid chelate, bulk,) 20 % powder Duplicate order 09/19/2023 HYDROcodone-acetamino phen (NORCO) 5-325 mg per tabletIndications:Marcell n Take 1 tablet by mouth every 4 (four) hours as needed for pain Stop Taking at Discharge 10/07/2023 10/07/2023 carisoprodoL (SOMA) 350 mg tabletIndications:Mus wili Spasm Take 1 tablet (350 mg total) by mouth nightly as needed for muscle spasms Stop Taking at Discharge 01/09/2022 10/07/2023 oxyCODONE-acetaminoph en (PERCOCET) 5-325 mg per tabletIndications:Marcell n Take 1 tablet by mouth every 8 (eight) hours as needed for pain Stop Taking at Discharge 03/13/2023 10/07/2023 UNABLE TO FINDIndications:suppl ement Take 1 each by mouth every morning Med Name: Prebiotic Plus Stop Taking at Discharge 10/07/2023 ibuprofen (ADVIL,MOTRIN) 400 mg tabletIndications:Marcell n Take 1 tablet (400 mg total) by mouth every 6 (six) hours as needed for pain Stop Taking at Discharge 10/07/2023 senna-docusate (Senna-S) 8.6-50 mg Take 1-2 tablets by mouth 2 (two) times a day Stop Taking at Discharge 10/03/2023 10/07/2023 documented as of this encounter Historical Medications * This list may reflect changes made after this encounter. ibuprofen (ADVIL,MOTRIN) 400 mg tabletIndications :Pain Take 1 tablet (400 mg total) by mouth every 6 (six) hours as needed for pain 10/07/2023 added in this encounter Active and Recently Administered Medications Times are shown in COMMERCIAL CARPET INSTALLER. Scheduled Medication Order 10/05/2023 10/06/2023 10/07/2023 acetaminophen (TYLENOL) tablet 1,000 mg 1,000 mg, oral, Once, On Fri10/07/23 at 0745, For 1 dose, Pre-Op, Administer 1 hours prior to skin incision, Indications: Pain 0745 (Due) ceFAZolin (ANCEF) 2,000 mg/50 mL in dextrose (premix) 2,000 mg (COMPLETED) 2,000 mg, intravenous, at 100 mL/hr, Administer over 30 Minutes, Once, On Fri10/07/23 at 0745, For 1 dose, Pre-Op, Administer within 60 minutes of incision. Duplex bag - activate before hanging., Indications: Prophylaxis, Surgical 0857 (Given - Provid er: Joycelyn Camacho CRNA) oxyCODONE-acetaminophen (PERCOCET) 5-325 mg per tablet 2 tablet (COMPLETED) 2 tablet, oral, Once, On Fri10/07/23 at 1145, For 1 dose, Phase I & Post-op Floor, Indications: Pain 1122 (Given - Provid er: Annamaria Farrell RN) scopolamine patch 72 hour 1 patch 1 patch, transdermal, Administer over 72 Hours, Once, On Fri10/07/23 at 0745, For 1 dose, Pre-Op, Apply to beach-chair position shoulder surgery patients, and to patients with a history of PONV and/or Motion Sickness. Do NOT administer to patients with a history of BPH or Glaucoma. Consult Anesthesiologist with any questions. In case of urinary retention, remove patch immediately and clean patch site with alcohol., Indications: Motion Sickness, Prevention of Motion Sickness, Prevention of Post-Operative Nausea and Vomiting 0745 (Due) Continuous Medication Order 10/05/2023 10/06/2023 10/07/2023 Lactated Ringer's (LR) infusion 30 mL/hr, intravenous, Continuous, Starting on Fri10/07/23 at 0745, Pre-Op, Use a 500 ml bag for End Stage Renal Disease Patients 0732 (New Bag - Prov ider: Shira Garcia RN)0848 (Rate/Dose Verify - Provider: Joycelyn Camacho CRNA)0955 (Paused - Provider: Joycelyn Camacho CRNA - Comment: Switch to gravity)0956 (New Bag - Provider: Joycelyn Camacho CRNA)1014 (Anesthesia Volume Adjustment - Provider: Joycelyn Camacho CRNA)1021 (Stopped - Provider: Annamaria Farrell RN) Lactated Ringer's (LR) infusion 125 mL/hr, intravenous, Continuous, Starting on Fri10/07/23 at 1115, Phase I 1021 (Continued from OR - Provider: Annamaria Farrell RN)1148 (Stopped - Provider: Annamaria Farrell RN) PRN Medication Order 10/05/2023 10/06/2023 10/07/2023 BUPivacaine-EPINEPHrine (MARCAINE with EPI) 0.5 %-1:200,000 preservative free injection (CANCELED) As needed, Starting on Fri10/07/23 at 0928, Intra-Op 0928 (Given - Provid er: Cecilia Ruggiero MD) diphenhydrAMINE (BENADRYL) 50 mg/mL injection 12.5 mg 12.5 mg, intravenous, Administer over 1 Minutes, Every 5 min PRN, itching, other, For Nausea, administer 25 mg IV., Starting on Fri10/07/23 at 1030, For 4 doses, Phase I, Max cumulative dose 50 mg., Indications: Itching fentaNYL (SUBLIMAZE) preservative free syringe 25 mcg 25 mcg, intravenous, Every 10 min PRN, 1st line for pain, Starting on Fri10/07/23 at 1030, For 4 doses, Phase I, Notify anesthesiologist if total PACU dose reaches 100 mcg AND pain score 5/10 or more. When patient able to tolerate PO, proceed to 2nd line analgesic agent for pain management., Indications: Pain 1049 (Given - Provid er: Annamaria Farrell RN)1102 (Given - Provider: Annamaria Farrell RN) hydrALAZINE (APRESOLINE) injection 5 mg 5 mg, intravenous, Administer over 2 Minutes, Every 5 min PRN, high blood pressure, Starting on Fri10/07/23 at 1030, Phase I, Max cumulative dose 20 mg. Dose if systolic BP greater than 180 AND heart rate less than 70., Indications: hypertension HYDROcodone-acetaminophen (NORCO) 5-325 mg per tablet 1 tablet 1 tablet, oral, Every 30 min PRN, 2nd line for pain, Starting on Fri10/07/23 at 1030, For 2 doses, Phase I, Indications: Pain labetaloL (NORMODYNE,TRANDATE) injection 5 mg 5 mg, intravenous, Every 5 min PRN, high blood pressure, Starting on Fri10/07/23 at 1030, For 4 doses, Phase I, Max cumulative dose 20 mg. Dose if systolic blood pressure greater than 180 AND HR greater than 70. Lactated Ringer's (LR) irrigation (CANCELED) As needed, Starting on Fri10/07/23 at 0927, Intra-Op 0927 (Given - Provid er: Cecilia Ruggiero MD - Comment: to field via scope tubing) lidocaine PF (XYLOCAINE) 10 mg/mL (1 %) preservative free injection 2-10 mg 2-10 mg (0.2-1 mL), subcutaneous, Once as needed, pain with IV placement, Starting on Fri10/07/23 at 0701, For 1 dose, Pre-Op, Administer volume needed to infiltrate IV site. meperidine (DEMEROL) preservative free injection 12.5 mg 12.5 mg, intravenous, Administer over 5 Minutes, Every 10 min PRN, shivering, Starting on Fri10/07/23 at 1030, For 2 doses, Phase I, Max cumulative dose 25 mg., Indications: Shivering naloxone (NARCAN) 0.4 mg/mL injection 0.04-0.4 mg 0.04-0.4 mg, intravenous, Once as needed, other, excessive sedation/respiratory depression, Starting on Fri10/07/23 at 1030, For 1 dose, Phase I, Dilute 0.4 mg with 9 mL NS (final concentration 0.04 mg/mL). For respiratory depression (respiratory rate less than 6), administer 0.4 mg IVP over 30 seconds. For excessive sedation administer 0.04 mg (1 mL) every 1 minute until desired level of alertness. Consult with Anesthesiologist before administration. Administer 40 mics at a time. For IV, administer over 30 seconds., Indications: Opioid Toxicity ondansetron (ZOFRAN) injection 4 mg 4 mg, intravenous, Administer over 2 Minutes, Once as needed, nausea, vomiting, Starting on Fri10/07/23 at 1030, For 1 dose, Phase I, Proceed to prochlorperazine if ondansetron has been given within the last 6 hours. prochlorperazine (COMPAZINE) injection 5 mg 5 mg, intravenous, Administer over 2 Minutes, Once as needed, nausea, vomiting, May give second 5 mg dose if nausea not improved after 15 minutes., Starting on Fri10/07/23 at 1030, For 2 doses, Phase I, If nausea/vomiting not relieved by ondansetron within 30 minutes or if ondansetron has been given within the last 6 hours. sodium chloride 0.9% flush 0.5-20 mL 0.5-20 mL, intra-catheter, As needed, line care, Flush [place] Block Hep Locks to keep vein open., Starting on Fri10/07/23 at 0701, Pre-Op, Flush volume based on line type and size. Flush before and after each use. , Indications: Flushing documented in this encounter Orders Medications Ordered That Raul ht Not Have Been Administered Count Last Ordered Date First Ordered Date acetaminophen (TYLENOL) tablet 1,000 mg 1 12/07/2022 ceFAZolin (ANCEF) 2,000 mg/5 0 mL in dextrose (premix) 2,000 mg 1 10/07/2023 dexAMETHasone (DECADRON) 4 m g/mL injection 8 mg 1 10/07/2023 diphenhydrAMINE (BENADRYL) 5 0 mg/mL injection 12.5 mg 1 10/07/2023 hydrALAZINE (APRESOLINE) injection 5 mg 1 1 12/07/2022 HYDROcodone-acetaminophen (N ORCO) 5-325 mg per tablet 1 tablet 1 10/07/2023 labetaloL (NORMODYNE,TRANDAT E) injection 5 mg 1 10/07/2023 Lactated Ringer's (LR) infusion 1 lidocaine PF (XYLOCAINE) 10 mg/mL (1 %) preservative free injection 2-10 mg 1 10/07/2023 meloxicam (MOBIC) tablet 15 mg 1 10/07/2023 meperidine (DEMEROL) preserv ative free injection 12.5 mg 1 10/07/2023 naloxone (NARCAN) 0.4 mg/mL injection 0.04-0.4 mg 1 10/07/2023 ondansetron (ZOFRAN) injection 4 mg 1 10/07 pregabalin (LYRICA) capsule 75 mg 1 023 prochlorperazine (COMPAZINE) injection 5 mg 1 10/07/2023 scopolamine patch 72 hour 1 patch 1 023 sodium chloride 0.9% flush 0.5-20 mL 1 09/18 Diet Count Last Ordered Date First Orde red Date ADULT DISCHARGE DIET 1 10/07/2023 Nursing Count Last Ordered Date First Orde red Date ACTIVITY 1 10/07/2023 APPLY ICE TO AFFECTED AREA 2 10/07/2023 DISCHARGE INSTRUCTIONS 9 10/07/2023 ELEVATE EXTREMITY 1 10/07/2023 NURSING COMMUNICATION 8 10/07/2023 Admission Count Last Ordered Date First Orde red Date INITIATE OUTPATIENT IN A BED 1 10/07/2023 Discharge Count Last Ordered Date First Orde red Date DISCHARGE PATIENT 1 10/07/2023 documented in this encounter Care Teams Aged Or Disabled Carer Relationship Specialty Start Date End Date Laureano Lantigua MD [address] [place] [address] PCP - General Internal Medicine 07/30/18 Tony Washington MD [address] [place] [address] [address] [place] [address] Cell Geneticist Obstetrics and Gynecology 11/16/18 Anahy Rosales MD [address] [place] [address] [address] [place] [address] Referring Physician Psychiatry 11/16/18 Nathalia Rodas, PT Physical Therapist Physical Therapy 02/14/23 documented as of this encounter
--- OUTSIDE RECORDS SUMMARY | 2024-11-15 03:23 | XMS_ITS | Encounter Summary ---
Author Organization [facility] Healthcare Address [address] [place] [address] Care Team Providers Care Shop Firer/Fireman Name Role Phone Laureano Lantigua MD Primary Care Provider [phone] Tony Washington MD Unavailable [phone] Anahy Rosales MD Unavailable [phone] Nathalia Rodas PT Unavailable Unavailable Encounter Details Date Type Department Care Team (Late st Contact Info) Description 10/22/2023 Plan of Care Documentation [facility] [place] [address] Social History Tobacco Use Types Packs/Day Years [...] on file Legal Sex Female 1:37 AM DRILLING MANAGER Gender Identity Female 10/03/2023 10:05 AM DRILLING MANAGER Sexual Orientation Straight 10/03/2023 10 :05 AM DRILLING MANAGER documented as of this encounter Plan of Treatment Not on file documented as of this encounter Visit Diagnoses Not on filedocumented in this encounter Care Teams Shop Firer/Fireman Relationship Specialty Start Date End Date Larueano Lantigua MD [address] [facility] [place] [address] PCP - General Internal Medicine 07/30/18 Tony Washington MD [address] [place] [address] [address] [place] [address] Sheriff Sergeant Obstetrics and Gynecology 11/16/18 Anahy Rosales MD [address] [place] [address] [place] [address] Referring Physician Psychiatry 11/16/18 Nathalia Rodas, HENRY Physical Therapist Physical Therapy 02/14/23 documented as of this encounter
--- OUTSIDE RECORDS SUMMARY | 2024-11-15 03:23 | XMS_ITS | Encounter Summary ---
Author Organization [facility] Healthcare Address [address] [place] [address] Care Team Providers Care Cupola Liner Helper Name Role Phone Laureano Lantigua MD Primary Care Provider [phone] Tony Washington MD Unavailable [phone] Anahy Rosales MD Unavailable [phone] Nathalia Rodas PT Unavailable Unavailable Reason for Visit * Reason Comments PT Treatment * Consultation (Routine) - Closed Specialty Diagnoses / Procedures Referred By Contмария t Referred To Contact Physical Therapy Diagnoses Left hip pain Cecilia Conn MD [address] [facility] [address] [place] [address] Phone: tel: fax: External Order Referral ID Status Reason Start Date Expiration Date V isits Requested Visits Authorized [id number] Closed Specialty Services Required 10/02/2023 10/31/2024 24 24 Encounter Details Date Type Department Care Team (Late st Contact Info) Description 11/04/2023 1:45 PM FAMILY LAW SPECIALIST Therapy [facility] [place] [address] Nathalia Rodas, PT Left hip pain (Primary [...] on file Legal Sex Female 1:37 AM FAMILY LAW SPECIALIST Gender Identity Female 10/03/2023 10:05 AM FAMILY LAW SPECIALIST Sexual Orientation Straight 10/03/2023 10 :05 AM FAMILY LAW SPECIALIST documented as of this encounter Progress Notes * Nathalia Rodas, PT - 11/04/2023 1:45 PM CST Physical Therapy Visit 11/04/23 Finesse Ramirez 1970, female [id number] Diagnosis Plan 1. Left hip pain 2. Encounter for other orthopedic aftercare 3. Unilateral primary osteoarthritis, left hip Cecilia Conn MD [address] [facility] [address] [place] [address] Subjective: Patient reports that she has been performing her exercises intermittently. Pain: 11/26 Objective: See treatment provided. DOS: 10/07/23 Treatment Provided: PROM hip flexion, ER, IR, circumduction Inferior glide joint mob (in supine with 90 deg hip flexion) Bridges Clamshells Quad rock Cat Cow Side plank taps Side steps Retro walking Octane x10 min Gait training of use of crutch or cane in R UE to offset weight from L LE Assessment: Tolerated treatment fairly well. Added sidelying plank taps and standing weight shifting with good tolerance. Plan: Cont per POC progressing per protocol. Start Time: 1345 End Time: 1430 Nathalia Rodas PT, DPT, COMT LY LAW SPECIALIST documented in this encounter Plan of Treatment Not on file documented as of this encounter Visit Diagnoses Diagnosis Left hip pain- Primary Pain in joint, pelvic region and thigh Encounter for other orthopedic aftercare Unilateral primary osteoarthritis, left hip documented in this encounter Care Teams Cupola Liner Helper Relationship Specialty Start Date End Date Laureano Lantigua MD [address] [place] [address] PCP - General Internal Medicine 07/30/18 Tony Washington MD [address] [place] [address] [address] [place] [address] Chemical Test Engineer Obstetrics and Gynecology 11/16/18 Anahy Rosales MD [address] [facility] [address] [place] [address] Referring Physician Psychiatry 11/16/18 Nathalia Rodas PT Physical Therapist Physical Therapy 02/14/23 documented as of this encounter
--- OUTSIDE RECORDS SUMMARY | 2024-11-15 03:23 | XMS_ITS | Encounter Summary ---
Author Organization [facility] Healthcare Address [address] [place] [address] Care Team Providers Care Food Counter Attendant Name Role Phone Laureano Lantigua MD Primary Care Provider [phone] Tony Washington MD Unavailable [phone] Anahy Rosales MD Unavailable Nathalia Rodas PT Unavailable Unavailable Reason for Visit * Reason Comments PT Treatment PT Progress Note * Consultation (Routine) - Closed Specialty Diagnoses / Procedures Referred By Contамрия t Referred To Contact Physical Therapy Diagnoses Left hip pain Cecilia Conn MD [address] [facility] [place] [address] Phone: tel: fax: External Order Referral ID Status Reason Start Date Expiration Date V isits Requested Visits Authorized [id number] Closed Specialty Services Required 10/02/2023 10/31/2024 24 24 Encounter Details Date Type Department Care Team (Late st Contact Info) Description 12/02/2023 7:00 AM MICRO COMPUTER SPECIALIST Therapy [facility] [place] [address] Nathalia Rodas, PT Left hip pain (Primary [...] on file Legal Sex Female 1:37 AM MICRO COMPUTER SPECIALIST Gender Identity Female 10/03/2023 10:05 AM MICRO COMPUTER SPECIALIST Sexual Orientation Straight 10/03/2023 10 :05 AM MICRO COMPUTER SPECIALIST documented as of this encounter Progress Notes * Nathalia Rodas, PT - 12/02/2023 7:00 AM CST Physical Therapy Visit 12/02/23 Finesse Ramirez 1970, female [id number] Diagnosis Plan 1. Left hip pain 2. Encounter for other orthopedic aftercare Cecilia Conn MD [address] [facility] [address] [place] [address] Subjective: Patient had increased hip and back pain that began Wednesday 11/29 in the posterior hip. She was in bed all weekend and she has been better, but it is still a /. SHe is still using an icepack to posterior hip while in sidelying Objective: See treatment provided. Gait: ambulates without [...] offset weight from L LE* Assessment: Finesse has been to a total of 10 visits thus far. Overall, she is making gradual progress toward goals, however she has had a setback in pain levels and ability to progress due to said pain levels. She demonstrates slight improvement in AROM and functional strength and continues to work toward goals. Goals: ALL ONGOING LTG 1:: Pt will improve hip AROM to equal of R LE. LTG 2:: Pt will demonstrate 5/5 hip strength. LTG 3:: Pt will demonstrate gait pattern without significant impairments. LTG 4:: Pt will report LEFS 50/80 to indicate improved functional ability. Plan: Cont per POC progressing per protocol. Start Time: 704 End Time: 744 Nathalia Rodas PT, DPT, COMT O COMPUTER SPECIALIST documented in this encounter Plan of Treatment Not on file documented as of this encounter Visit Diagnoses Diagnosis Left hip pain- Primary Pain in joint, pelvic region and thigh Encounter for other orthopedic aftercare documented in this encounter Care Teams Food Counter Attendant Relationship Specialty Start Date End Date Laureano Lantigua MD [address] [place] [address] PCP - General Internal Medicine 07/30/18 Tony Washington MD [address] [place] [address] [place] [address] General Office Assistant Obstetrics and Gynecology 11/16/18 Anahy Rosales MD [address] [place] [address] [place] [address] Referring Physician Psychiatry 11/16/18 Nathalia Rodas, PT Physical Therapist Physical Therapy 02/14/23 documented as of this encounter
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
--- OUTSIDE RECORDS SUMMARY | 2024-11-15 03:23 | XMS_ITS | Encounter Summary ---
Author Organization [facility] Healthcare Address [address] [place] [address] Care Team Providers Care Public Relations Professional Name Role Phone Laureano Lantigua MD Primary Care Provider + [phone] Tony Washington MD Unavailable [phone] Anahy Rosales MD Unavailable [phone] Nathalia Rodas PT Unavailable Unavailable Reason for Visit * Auth/Cert (Routine) Specialty Diagnoses / Procedures Referred By Contac t Referred To Contact Diagnoses Tear of left acetabular labrum, initial encounter Tear of left acetabular labrum, initial encounter [S73.192A] Procedures [place] UNLISTED PROCEDURE PELVIS/HIP JOINT ARTHROSCOPY HIP - LABRAL REPAIR - OSTEOCHONDROPLASTY Referral ID Status Reason Start Date Expiration Date Visits Re quested Visits Authorized [id number] 1 1 Encounter Details Date Type Department Care Team (Latest Contact Info) Description 10/07/2023 6:48 AM MANAGER EQUIPMENT - 10/07/2023 12:02 PM MANAGER EQUIPMENT Hospital Encounter [facility] [address] [place] [phone] Cecilia Conn MD [address] [facility] 6[address]6B[address]A [place] [address] Tear of left acetabular labrum, initial encounter (Primary Dx) Discharge Disposition: Discharge to home or self [...] on file Legal Sex Female 1:37 AM MANAGER EQUIPMENT Gender Identity Female 10/03/2023 10:05 AM MANAGER EQUIPMENT Sexual Orientation Straight 10/03/2023 10 :05 AM MANAGER EQUIPMENT documented as of this encounter Last Filed Vital Signs Vital Sign Reading Time Taken Comments Blood Pressure 128/71 10/07/2023 11:40 AM MANAGER EQUIPMENT Pulse 80 10/07/2023 11:46 AM MANAGER EQUIPMENT Temperature 36.6 ??C (97.9 ??F) 10/07/2023 11:[address] Respiratory Rate 18 10/07/2023 11:46 AM MANAGER EQUIPMENT Oxygen Saturation 96% 10/07/2023 11:46 AM MANAGER EQUIPMENT Inhaled Oxygen Concentration - - Weight 96.3 kg (212 lb 3.2 oz) 10/07/2023 7:16 A M MANAGER EQUIPMENT Height 182.9 cm (6') 10/07/2023 7:16 AM MANAGER EQUIPMENT Body Mass Index 28.78 10/07/2023 7:16 AM MANAGER EQUIPMENT documented in this encounter Discharge Instructions * Discharge Instructions* Rakesh Stapleton III, MD - 10/07/2023 10:35 AM MANAGER EQUIPMENT HIP ARTHROSCOPY POST-OP INSTRUCTIONS WEIGHT BEARING: Due [...] can be addressed easily by telephone or mobile [facility] message. Cecilia Bhatia MD Gin Operator Adult Reconstruction-Adolescent and Young Adult Hip Service [facility] FORREST Benedict, RN Clinical Nurse Coordinator GER EQUIPMENT documented in this encounter Medications at Time [...] Cecilia Conn MD at 10/07/2023 2:02 PM MANAGER EQUIPMENT GER EQUIPMENT GER EQUIPMENT Source Note - Aimee Sanchez NP - 09/26/2023 12:36 PM MANAGER EQUIPMENT Images from the original note were not included. Center for Preoperative Assessment and Planning Preoperative Evaluation Record Evaluation type/location: TPAP from [facility] Planned procedure site: [facility] Date: [...] s/p gastric sleeve) Pertinent negatives: CAD ; HI ; CABG ; valvular heart disease; atrial [...] provided by telephone and electronically sent via mobile [employer] [facility]. Patient verbalized understanding of instructions. Blood bank [...] History: Diagnosis Date Anxiety Asthma Asthma; Comments: [facility] 06/27/2014 - Cancer (CMS/HCC) (HCC) 2020 basal cell carcinoma removed from [facility] with the [facility] Female infertility Infertility, female Fibrocystic breast GERD (gastroesophageal reflux disease) Hammer toe Hammer toe; Comments: [facility] 06/27/2014 - HX OTHER MEDICAL Sinusitis, ADD, diverticulosis, obesity, OA, asthm HX OTHER MEDICAL Depression, with Anxiety; PCOS HX OTHER MEDICAL Missed Ab HX OTHER MEDICAL ; Outcome: 37W0D week 7lb(s) 7 oz Male Hypercholesterolemia High cholesterol; Comments: [facility] 06/27/2014 - Hypertension Hypertension Motion sickness Retinal detachment Detachment of retina; Comments: [facility] 06/27/2014 - Past Surgical History: Procedure Laterality [...] GASTROPLASTY 2015 Laparoscopic Gastric Sleeve SPINAL FUSION 2011 Spinal fusion L5-S1 OB History 2 Para [...] last 30 days. 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 Cancer ([facility] ([facility]) 2020 basal cell carcinoma removed [facility] with the [facility]'s Female infertility Infertility, female Fibrocystic breast GERD (gastroesophageal reflux disease) Hammer toe Hammer toe; Comments: [facility] 06/27/2014 - HX OTHER MEDICAL Sinusitis, ADD, diverticulosis, obesity, OA, asthm HX OTHER MEDICAL Depression, with Anxiety; PCOS HX OTHER MEDICAL Missed Ab HX OTHER MEDICAL ; Outcome: 37W0D week 7lb(s) 7 oz Male Hypercholesterolemia High cholesterol; Comments: [facility] 06/27/2014 - Hypertension Hypertension Motion sickness Retinal detachment Detachment of retina; Comments: [facility] 06/27/2014 - Past Surgical History: Procedure [...] SURGERY Left 11/07/2020 x2 ENDOMETRIAL ABLATION 03/12/2023 [facility] SURGERY 07/2021 Basil Cell OTHER SURGICAL HISTORY [...] Cecilia Conn MD at 10/07/2023 2:02 PM MANAGER EQUIPMENT GER EQUIPMENT GER EQUIPMENT documented in this encounter Miscellaneous Notes * Op Note - Cecilia Conn MD - 10/07/2023 9:15 AM CST OPERATION NOTE on Finesse Ramirez Diagnosis: Hyperthrophic Symptomatic Labrum and Early OA Indication: Failure to obtain satisfactory results with long standing conservative measures. Operation: Arthroscopic left, Hip Arthroscopy ,Labrum Debridement, Chondroplasty and Capsula Repair Surgeon: Cecilia Bhatia MD High Man: Enrique Valero, Resident PGY2 Anaesthetic: General Findings [...] intra portal capsulotomy was then performed using koyuk blade and the 50? Arthrocare wand toconnect [...] the case Kind regards, Cecilia Bhatia MD GER EQUIPMENT * Brief Op Note - Rakesh Stapleton III, MD - 10/07/2023 9:15 AM MANAGER EQUIPMENT Operative Progress Note Surgical Team: Surgeon(s) and Role: * Cecilia Conn MD - Primary * Rakesh Stapleton III, MD - Resident - Assisting Anesthesiologist: Donald Grant MD PROCUREMENT SPECIALIST: Joycelyn Camacho CRNA Station Installer And Repairer: Alma Talbot RN Api Architect: Tatiana Chandler RT Scrub: Girma Mejia RN Orientee Scrub: Carli Richardson RN DATE OF SURGERY : 10/07/2023 Preoperative Diagnosis: Pre-op Diagnosis * Tear of left acetabular labrum, initial encounter [S73.192A] Postoperative Diagnosis: Post-op Diagnosis * Tear of left acetabular labrum, initial encounter [S73.192A] Procedure(s): Procedure(s) (LRB): LEFT HIP ARTHROSCOPY - [...] Cecilia Conn MD at 10/07/2023 2:02 PM MANAGER EQUIPMENT GER EQUIPMENT GER EQUIPMENT * Perioperative Nursing Note - Shira Garcia RN - 10/07/2023 7:06 AM MANAGER EQUIPMENT Pt states will drive her home and provide 24 hrs care. GER EQUIPMENT * Pre-Procedure Instructions - Maryjo Elam RN - 10/06/2023 10:24 AM MANAGER EQUIPMENT We are pleased that you and your doctor have chosen [facility] for your surgery. We hope the following information will help make your visit a pleasant one. The name of the building is [facility] in [place]. Directions to facility (address is [id number] [place] [address] road, [address] [facility] [address] [facility] exit. Zip [address] When you enter the building, look directly to your left, you will see 2 glass double doors. These double doors say [address]. Go through those double doors and check in with the center receptionist. Bring inhaler. Patient has own crutches and knows how to use them. Bring pillows, leave in car. Pt has [employer] ice machine. Will need Urine sample a.m. Of surgery. Please let the center receptionist know if you need to empty your [...] out. Instructed to patient to refer to [facility] surgery guide page 6 for any questions regarding eating and drinking day of surgery. For medications that the Nurse Practitioner instructed you to take on the morning of surgery, take the medications with a few sips of water. Pt's. MOM DESEAN [phone] will be with patient and 20 Y.O. [...] or purchase it from the refreshment area. GER EQUIPMENT * Pre-Procedure Instructions - Aimee Sanchez NP - 09/26/2023 11:53 AM CST Center for Preoperative Assessment and Planning CPAP Clinic Location: [facility] The night before your surgery: * Do [...] of surgery * If having surgery at [facility], you may want to bring a credit card if you want to use our Mobile Pharmacy for your discharge medications. Mobile pharmacy is not available at [facility], the [facility], or [facility] Outpatient Surgery: * You must have a [...] with COVID-19. You test positive for COVID-19. GER EQUIPMENT * Perioperative Nursing Note - Natalie Medina RN - 09/19/2023 10:05 AM CDT [facility] for Preoperative Assessment and Planning Perioperative Nursing Note Telephone Preoperative Evaluation ([facility]) - TELEPHONE ONLY, NO PHYSICAL EXAM Date: [...] not in Chart: Copy requested from family Communication/Inspector Precision Assembly Needs Communication Needs: None Assistive Devices/DME: None Discharge Planning Type of Residence: Private residence Living Arrangements: Family members Support Systems: Family members Patient expects to be discharged to:: Private residence BACK GRINDER NO ADDITIONAL COMMENTS/ FOLLOW UP * Pre-Procedure [...] remove nail coverings, artificial nails and nail guinean prior to the day of surgery. You should leave your valuables and any jewelry at home. No metal or piercings are allowed in the operating room. You should bring your insurance card, a photo ID (example: Dietary Aide Cook's License) and a method of payment for [...] Chart. If you are having surgery at [facility], please arrive on the day of surgery [...] Pathway to Excellent Care by the followinglink: [email or web address] How To Prepare Your Skin For Surgery [...] Remove nail coverings, artificial nails and nail guinean. The Morning of Surgery: Take a shower [...] questions, please call the CPAP Staff at [phone], Friday-Friday 8am-4:30pm. All patients should read the below section: COVID 19 Updates & Visitor Policy: Please access [email or web address] for the most updated information. Information on [facility] & the [facility]: Please view [email or web address] (Patient & Visitor Information) for additional details regarding Advanced Directive forms, AWARE, directions, parking information, lodging, Internet access, dining and more. Information on [facility] or [facility] ([facility]): Please view [email or web address] (Patient and Visitor Information) for parking/directions and more. For MyChart information, to activate account or password recovery, please go to [email or web address] or call [phone] (toll-free: [phone]), Fri- Friday 8am-5pm. Information for Suicide Prevention: National Suicide Prevention Lifeline (8-967- 374-ZUOS (8429)). Surgery Times: For patients having surgery @ [facility], if your surgeon's office has not notified you of your surgery time by NOON THE BUSINESS DAY BEFORE your surgery, please call the surgery center [phone]. documented in this encounter Plan of Treatment Not on file documented as of this encounter Procedures Procedure Name Priority Date/Time Associated Diagnosis Comments FL FLUOROSCOPY < 1 HOUR IP Routine 10/07/2023 10:13 AM MANAGER EQUIPMENT ARTHROSCOPY HIP - LABRAL REPAIR 10/07/2023 8:45 AM MANAGER EQUIPMENT Tear of left acetabular labrum, initial encounter Special Needs ALLERGY TO NYLON SUTURESSPECIAL NEEDS: S-N traction bed, Oratec probe, TA allograft if reconstruction needed, Holmes Anchors, Cinchlock SS, Cinchlock Flex, Gia Tack, Samurai Blade, Slingshot, Nanopass, 1.8mm Knotless Hip FiberTak, 3.0mm Knotless Hi p SutureTak, 2.4mm PushLock (have available), 2.9mm PushLock (have available) POCT HCG, URINE Routine 10/07/2023 7:33 AM MANAGER EQUIPMENT documented in this encounter Results * FL Fluoroscopy < 1 Hour (10/07/2023 10:13 AM MANAGER EQUIPMENT) Narrative [facility] - 10/07/2023 10:13 AM MANAGER EQUIPMENT The images from this study are not interpreted by Radiology. ??Please refer to the physician's procedure / OR operative note. us Rm Ruggiero MD IMG FLUOROSCOPY MARK BRISENO Final Result [facility] * POCT hCG, urine (10/07/2023 7:33 AM MANAGER EQUIPMENT) HCG, ur, POC Negative Negative Lot Number 1 QC Backgroud Clear Acceptable QC Control Line Acceptable Urine 10/07/2023 7:33 AM MANAGER EQUIPMENT us Jesse Diallo MD POINT OF CARE TEST ORDER KAI Final Result documented in this encounter Visit Diagnoses Diagnosis Tear of left acetabular labrum, initial encounter Labral tear of hip, degenerative documented in this encounter Admitting Diagnoses Diagnosis Tear of left acetabular labrum Labral tear of hip, degenerative documented in this encounter Administered Medications Inactive Administered Medications - up to 3 most recent administrations Medication Order MAR Action Action Date Dose Rate Site fentaNYL (SUBLIMAZE) preservative free syringe 25 [...] management., Indications: PainIndications:Pain Given 10/07/2023 11:02 AM MANAGER EQUIPMENT 25 mcg Given 10/07/2023 10:49 AM MANAGER EQUIPMENT 25 mcg Lactated Ringer's (LR) infusion 30 mL/hr, intravenous, Continuous, Starting on Fri10/07/23 at 0745, Pre-Op, Use a 500 ml bag for End Stage Renal Disease Patients New Bag 10/07/2023 9:56 AM MANAGER EQUIPMENT Rate/Dose Verify 10/07/2023 8:48 AM MANAGER EQUIPMENT 30 mL/h r New Bag 10/07/2023 7:32 AM MANAGER EQUIPMENT 30 mL/hr 30 mL/hr oxyCODONE-acetaminophen (PERCOCET) 5-325 mg per tablet 2 tablet 2 tablet, oral, Once, On Fri10/07/23 at 1145, For 1 dose, Phase I & Post-op Floor, Indications: PainIndications:Pain Given 10/07/2023 11:22 AM MANAGER EQUIPMENT 2 tablets documented in this encounter Discontinued [...] Recently Administered Medications Times are shown in MANAGER EQUIPMENT. Scheduled Medication Order 10/05/2023 10/06/2023 10/07/2023 acetaminophen (TYLENOL) tablet 1,000 mg 1,000 mg, oral, Once, On Tu10/07/23 at 0745, For 1 dose, Pre-Op, Administer [...] mL, intra-catheter, As needed, line care, Flush [place] Block Hep Locks to keep vein open., Starting on Fri10/07/23 at 0701, Pre-Op, Flush volume based on line type and size. Flush before and after each use. , Indications: Flushing documented in this encounter Orders Medications Ordered That Raul ht Not Have Been Administered Count Last Ordered Date First Ordered Date acetaminophen (TYLENOL) tablet 1,000 mg 1 1 12/07/2022 BUPivacaine-EPINEPHrine (MAR JULIO CESAR with EPI) 0.5 %-1:200,000 preservative free injection 1 10/07/2023 ceFAZolin (ANCEF) 2,000 mg/5 0 mL in [...] 1 10/07/2023 Lactated Ringer's (LR) infusion 1 3 Lactated Ringer's (LR) irrigation 1 023 lidocaine PF (XYLOCAINE) 10 mg/mL (1 %) [...] 10/07/2023 documented in this encounter Care Teams Public Relations Professional Relationship Specialty Start Date End Date Laureano Lantigua MD [address] [place] [address] PCP - General Internal Medicine 07/30/18 Tony Washington MD [address] [place] [address] [address] [place] [address] Roof Assembler Obstetrics and Gynecology 11/16/18 Anahy Rosales MD [address] [facility] [address] [place] [address] Referring Physician Psychiatry 11/16/18 Nathalia Rodas, PT Physical Therapist Physical Therapy 02/14/23 documented as of this encounter
--- OUTSIDE RECORDS SUMMARY | 2024-11-15 03:23 | XMS_ITS | Encounter Summary ---
Author Organization [facility] Healthcare Address [address] [place] [address] Care Team Providers Care Harvest Worker Field Crop Name Role Phone Laureano Lantigua MD Primary Care Provider [phone] Tony Washington MD Unavailable [phone] Anahy Rosales MD Unavailable [phone] Nathalia Rodas PT Unavailable Unavailable Reason for Visit * Reason Comments Gynecologic Exam Annual Exam Annual Encounter Details Date Type Department Care Team (Late st Contact Info) Description 10/20/2023 1:20 PM RECRUITER ACCOUNT MANAGER Office Visit [facility] [address] [place] [phone] Laureano Lantigua MD [address] [place] [id number] Routine physical examination (Primary Dx) Social History Tobacco Use Types [...] on file Legal Sex Female 1:37 AM RECRUITER ACCOUNT MANAGER Gender Identity Female 10/03/2023 10:05 AM RECRUITER ACCOUNT MANAGER Sexual Orientation Straight 10/03/2023 10 :05 AM RECRUITER ACCOUNT MANAGER documented as of this encounter Last Filed Vital Signs Vital Sign Reading Time Taken Comments Blood Pressure 140/88 10/20/2023 1:42 PM RECRUITER ACCOUNT MANAGER Pulse 92 10/20/2023 1:42 PM RECRUITER ACCOUNT MANAGER Temperature 36.3 ??C (97.3 ??F) 10/20/2023 1:42 PM CS T Respiratory Rate 18 10/20/2023 1:42 PM RECRUITER ACCOUNT MANAGER Oxygen Saturation 99% 10/20/2023 1:42 PM RECRUITER ACCOUNT MANAGER Inhaled Oxygen Concentration - - Weight 99.7 kg (219 lb 12.8 oz) 10/20/2023 1:42 PM RECRUITER ACCOUNT MANAGER Height 182.9 cm (6' 0.01 ) 10/20/2023 1:42 PM CS T Body Mass Index 29.8 10/20/2023 1:42 PM RECRUITER ACCOUNT MANAGER documented in this encounter Patient Instructions * Patient Instructions* Dominique Fang - 10/20/2023 1:20 PM RECRUITER ACCOUNT MANAGER Look into [place] Pt will call back to schedule these! Cbc Cmp Flp Hep B titers ( to look for immunity Any time Rtc in one year UITER ACCOUNT MANAGER UITER ACCOUNT MANAGER UITER ACCOUNT MANAGER UITER ACCOUNT MANAGER documented in this encounter Ordered Prescriptions Prescription Sig Dispense Quantity Refills Last Filled Start Date End Date oxyCODONE-acetamin ophen (PERCOCET) 5-325 mg per tabletIndications: Pain Take 1 tablet by mouth every 4 (four) hours as needed for pain 10/20/2023 11/20/2023 documented in this encounter Progress Notes * Laureano Lantigua MD - 10/20/2023 1:20 PM CST Subjective/Objective Patient ID: Finesse Ramirez is a 53 y.o. female. Chief Complaint Gynecologic Exam and Annual Exam (Annual) HPI Immunizations were reviewed Flu shot today Meds were reviewed S/p labral procedure Arrange PT S/p PT and still c/o lower back pAin Review of Systems Constitutional: Negative. HENT: Negative. Eyes: Negative. Respiratory: Negative. Cardiovascular: Negative. Genitourinary: Negative. Neurological: Negative. Physical Exam Constitutional: Appearance: Normal appearance. HENT: Head: Atraumatic. Right Ear: Tympanic membrane, ear canal and external ear normal. Nose: Nose normal. Cardiovascular: Rate and Rhythm: Normal rate and regular rhythm. Pulses: Normal pulses. Heart sounds: Normal heart sounds. Pulmonary: Effort: Pulmonary effort is normal. Breath sounds: Normal breath sounds. Musculoskeletal: General: Normal range of motion. Cervical back: Normal range of motion and neck supple. Skin: General: Skin is warm. Neurological: General: No focal deficit present. Assessment/Plan There are no diagnoses linked to this encounter. UITER ACCOUNT MANAGER * Crystal Chan MA - 10/20/2023 1:20 PM CST Labs need to be collected before next annual visit * Crystal Chan MA - 10/20/2023 1:20 PM CST Labs need to be collected before next annual visit * Crystal Chan MA - 10/20/2023 1:20 PM CST Labs need to be collected before next annual visit * Crystal Chan MA - 10/20/2023 1:20 PM CST Labs need to be collected before next annual visit documented in this encounter Miscellaneous Notes * Addendum Note - Hector Jameson - 10/20/2023 1:20 PM CSTAddended by: HECTOR JAMESON on: 02/06/2024 03:19 PM Modules accepted: Orders documented in this encounter Plan of Treatment Scheduled Orders Name Type Priority Associated Diagnoses Orde r Schedule CBC with auto differential Lab Routine Routine physical examination Expected: 02/06/2024, Expires: 02/05/2025 Comprehensive metabolic panel Lab Routine Routine physical examination Expected: 02/06/2024, Expires: 02/05/2025 Lipid panel Lab Routine Routine physical examination Expected: 02/06/2024, Expires: 02/05/2025 Hepatitis B Surface Antigen Blood Microbiology Routine Routine physical examination Expected: 02/06/2024, Expires: 02/05/2025 documented as of this encounter Visit Diagnoses Diagnosis Routine physical examination- Primary Routine general medical examination at a health care facility documented in this encounter Discontinued Medications Medication Sig Discontinue Reason Start Date End Da te oxyCODONE-acetaminophen (PERCOCET) 5-325 mg per tabletIndications:Pain Take 1 tablet by mouth every 4 (four) hours as needed for pain Reorder 10/07/2023 10/20/2023 documented as of this encounter Orders Immunization/Injection Count Last Ordered Date First Ordered Date FLU VACCINE QUAD PF 6M+ IM - FLUARIX / FLULAVAL / FLUZONE- SYRINGE 1 10/20/2023 documented in this encounter Care Teams Harvest Worker Field Crop Relationship Specialty Start Date End Date Laureano Lantigua MD [address] [place] [address] PCP - General Internal Medicine 07/30/18 Tony Washington MD [address] [facility] [address] [place] [address] V Belt Skiver Obstetrics and Gynecology 11/16/18 Anahy Rosales MD [address] [facility] [address] [place] [address] Referring Physician Psychiatry 11/16/18 Nathalia Rodas, PT Physical Therapist Physical Therapy 02/14/23 documented as of this encounter
--- OUTSIDE RECORDS SUMMARY | 2024-11-15 03:23 | XMS_ITS | Encounter Summary ---
Author Organization [facility] Healthcare Address [address] [place] [address] Care Team Providers Care Solid Propellant Processor Name Role Phone Laureano Lantigua MD Primary Care Provider [phone] Tony Washington MD Unavailable [phone] Anahy Rosales MD Unavailable [phone] Nathalia Rodas PT Unavailable Unavailable Reason for Visit * Reason Comments PT Initial Eval * Consultation (Routine) - Closed Specialty Diagnoses / Procedures Referred By Contмария t Referred To Contact Physical Therapy Diagnoses Left hip pain Cecilia Conn MD [address] [facility] [place] [address] Phone: tel: fax: External Order Referral ID Status Reason Start Date Expiration Date V isits Requested Visits Authorized [id number] Closed Specialty Services Required 10/02/2023 10/31/2024 24 24 Encounter Details Date Type Department Care Team (Late st Contact Info) Description 10/22/2023 3:30 PM BUILDER'S LABOURER Therapy [facility] [place] [address] Nathalia Rodas, PT Left hip pain; Encounter for other orthopedic [...] on file Legal Sex Female 1:37 AM BUILDER'S LABOURER Gender Identity Female 10/03/2023 10:05 AM BUILDER'S LABOURER Sexual Orientation Straight 10/03/2023 10 :05 AM BUILDER'S LABOURER documented as of this encounter Progress Notes * Nathalia Rodas, PT - 10/22/2023 3:30 PM CST PT Initial Eval 10/22/2023 Finesse Ramirez 1970 53 y.o. female Cecilia Conn MD [address] [facility] [address] [place] [address] ICD-9-CM ICD-10-CM 1. Left hip pain 719.45 M25.552 Ambulatory referral order to Physical Therapy - 2. Encounter for other orthopedic aftercare V54.89 Z47.89 DOS: 10/07/2023 Subjective Chief complaint: Pt presents to PT 15 days s/p L labral repair and osteochondroplasty. She has had minimal hip pain since the surgery, however her low back pain has been flared up with L sciatic symptoms, most likely from the change in ambulation and sleeping positions. The past 2 days she has beenwalking with 1 crutch and today she has not used a crutch to ambulate. Pain is located to posteriorhip and L PSIS. Current pain: 4/10; Worst pain: 7/10; Least pain: 1-2/10 Aggravating factors: walking, bending forward Alleviating factors: ice machine, meds PRN Pt is also c/o recent R elbow pain from leaning weight on elbow to offset weight from her hip. Previous Medical Management: diagnostic lidocaine injection; multiple lumbar surgeries due to horseback riding incident with chronic low back pain and radicular symptoms since then; see previous physical therapy case for further information. 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 She likes to workout in the gym. Current Functional Level: She is currently not working. She is cleared by MD to return to work after 3 weeks if she is able to sit at a desk. She is not doing housework due to pain and post op. She is walking with 1 crutch and with antalgic gait pattern. Patient Goals: rehab from L hip surgery Objective Lower Extremity Functional Scale (LEFS): 25/80 Gait: ambulates in clinic without AD; decreased weight acceptance through L LE with foot flat WB and absent heel strike on L. ROM: Left Right Hip Flexion AROM: 110 PROM: 120 WNL Hip Extension Hip External Rotation PROM 30 WNL Hip Internal Rotation PROM: 10 WNL Hip Abduction PROM: 30 WNL Observations: noted compensations with lumbar spine with hip internal and external rotation Treatment Provided: PROM hip flexion, ER, IR, circumduction Bridges [place] Cat Cow Gait training of use of crutch or cane in R UE to offset weight from L LE HEP: Access Code: [email or web address] Supine bridge Clamshell Cat cow Fuel3D rock Use of stationary bike daily Assessment/Plan Assessment Impairments: activity tolerance, endurance, impaired posture, weight-bearing intolerance, abnormal gait, flexibility, impaired balance, pain with function, impaired body awareness, impaired body mechanics, lacks appropriate home exercise program, abnormal or restricted ROM, impaired physical strength Assessment details: Ms. Ramirez is a 53 year old female who presents to the clinic 2 weeks s/p L hiplabral repair and osteochondroplasty. She demonstrates limited AROM and PROM of hip, impaired gait mechanics, and flare up of chronic low back pain symptoms due to impaired gait mechanics. Due to these impairments, she is not currently working or performing her daily routine. She will benefit from skilled physical therapy to address the above impairments to improve AROM, improve functional strength, improve gait mechanics, and improve quality of life. Goals LTG 1:: Pt will improve hip AROM to equal of R LE. LTG 2:: Pt will demonstrate 5/5 hip strength. LTG 3:: Pt will demonstrate gait pattern without significant impairments. LTG 4:: Pt will report LEFS 50/80 to indicate improved functional ability. Plan Start time: 1510 End time: 161 Therapy options: will be seen for skilled therapy services Planned modality interventions: interferential current, cryotherapy, thermotherapy (hydrocollator packs) Planned therapy interventions: abdominal trunk stabilization, functional ROM exercises, manual therapy, postural training, therapeutic activities, gait training, motor coordination training, transfertraining, balance/weight-bearing training, home exercise program, neuromuscular re-education, body mechanics training Frequency: 1 x/week, 2 x/week Duration in weeks: (12 weeks) Discussed with: patient Future Treatment Plan: address ROM & strengthening as per protocol uploaded in media and listedbelpete Rodas PT, DPT, COMT DER'S LABOURER documented in this encounter Plan of Treatment Not on file documented as of this encounter Visit Diagnoses Diagnosis Left hip pain Pain in joint, pelvic region and thigh Encounter for other orthopedic aftercare documented in this encounter Orders Outpatient Referral Count Last Ordered Date st Ordered Date AMB REFERRAL ORDER TO PHYSICAL THERAPY 1 documented in this encounter Care Teams Solid Propellant Processor Relationship Specialty Start Date End Date Laureano Lantigua MD [address] [place] [address] PCP - General Internal Medicine 07/30/18 Tony Washington MD [address] [place] [address] [place] [address] Law Enforcement Instructor Obstetrics and Gynecology 11/16/18 Anahy Rosales MD [address] [place] [address] [place] [address] Referring Physician Psychiatry 11/16/18 Nathalia Rodas PT Physical Therapist Physical Therapy 02/14/23 documented as of this encounter
--- OUTSIDE RECORDS SUMMARY | 2024-11-15 03:23 | XMS_ITS | Encounter Summary ---
Author Organization [facility] Healthcare Address [address] [place] [address] Care Team Providers Care Seasoning Mixer Name Role Phone Laureano Lantigua MD Primary Care Provider [phone] Tony Washington MD Unavailable [phone] Anahy Rosales MD Unavailable [phone] Nathalia Rodas PT Unavailable Unavailable Reason for Visit * Reason Comments PT Treatment * Consultation (Routine) - Closed Specialty Diagnoses / Procedures Referred By Contмария t Referred To Contact Physical Therapy Diagnoses Left hip pain Cecilia Conn MD [address] [facility] [address] [place] [address] Phone: tel: fax: External Order Referral ID Status Reason Start Date Expiration Date V isits Requested Visits Authorized [id number] Closed Specialty Services Required 10/02/2023 10/31/2024 24 24 Encounter Details Date Type Department Care Team (Late st Contact Info) Description 11/19/2023 5:00 PM INFORMATION SYSTEMS SPECIALIST Therapy [facility] [place] [address] Nathalia Rodas, PT Left hip pain (Primary [...] on file Legal Sex Female 1:37 AM INFORMATION SYSTEMS SPECIALIST Gender Identity Female 10/03/2023 10:05 AM INFORMATION SYSTEMS SPECIALIST Sexual Orientation Straight 10/03/2023 10 :05 AM INFORMATION SYSTEMS SPECIALIST documented as of this encounter Progress Notes * Nathalia Rodas, PT - 11/19/2023 5:00 PM CST Physical Therapy Visit 11/19/23 Finesse Ramirez 1970, female [id number] Diagnosis Plan 1. Left hip pain 2. Encounter for other orthopedic aftercare Cecilia Conn MD [address] [facility] [address] [place] [address] Subjective: Patient has had increased pain in L groin and posterior hip since last week. She saw her surgeon yesterday who prescribed muscle relaxers and ordered a steroid injection for her hip, as well as having pt only perform light duty at work. Objective: See treatment provided. DOS: 10/07/23 Treatment Provided: PROM hip flexion, ER, IR, circumduction Inferior glide joint mob (in supine with 90 deg hip flexion) Bridges* Clamshells* Quad rock* Cat Cow* Side plank taps* Side steps* Retro walking* Octane x10 min* Gait training of use of crutch or cane in R UE to offset weight from L LE Assessment: Tolerated treatment fairly well.Focused on PROM and gentle strengthening in attempt to decrease pain levels. Encouraged pt to utilize ice and to rest hip at home, as well as encouraging minimal walking at work to allow hip to become less irritated. Plan: Cont per POC progressing per protocol. Start Time: 1715 (late) End Time: 174 Nathalia Rodas PT, DPT, COMT RMATION SYSTEMS SPECIALIST documented in this encounter Plan of Treatment Not on file documented as of this encounter Visit Diagnoses Diagnosis Left hip pain- Primary Pain in joint, pelvic region and thigh Encounter for other orthopedic aftercare documented in this encounter Care Teams Seasoning Mixer Relationship Specialty Start Date End Date Laureano Lantigua MD [address] [place] [address] PCP - General Internal Medicine 07/30/18 Tony Washington MD [address] [place] [address] [address] [place] [address] Manager Storage Obstetrics and Gynecology 11/16/18 Anahy Rosales MD [address] [place] [address] [address] [place] [address] Referring Physician Psychiatry 11/16/18 Nathalia Rodas PT Physical Therapist Physical Therapy 02/14/23 documented as of this encounter
--- OUTSIDE RECORDS SUMMARY | 2024-11-15 03:23 | XMS_ITS | Encounter Summary ---
Author Organization [facility] Healthcare Address [address] [place] [address] Care Team Providers Care Fire Hazard Inspector Name Role Phone Laureano Lantigua MD Primary Care Provider [phone] Tony Washington MD Unavailable [phone] Anahy Rosales MD Unavailable [phone] Nathalia Rodas PT Unavailable Unavailable Reason for Visit * Reason Comments PT Treatment * Consultation (Routine) - Closed Specialty Diagnoses / Procedures Referred By Contмария t Referred To Contact Physical Therapy Diagnoses Left hip pain Cecilia Conn MD [address] [facility] [address] [place] [address] Phone: tel: fax: External Order Referral ID Status Reason Start Date Expiration Date V isits Requested Visits Authorized [id number] Closed Specialty Services Required 10/02/2023 10/31/2024 24 24 Encounter Details Date Type Department Care Team (Late st Contact Info) Description 11/13/2023 5:30 PM SAFETY SPECIALIST Therapy [facility] [place] [address] Nathalia Rodas, PT Left hip pain (Primary [...] on file Legal Sex Female 1:37 AM SAFETY SPECIALIST Gender Identity Female 10/03/2023 10:05 AM SAFETY SPECIALIST Sexual Orientation Straight 10/03/2023 10 :05 AM SAFETY SPECIALIST documented as of this encounter Progress Notes * Nathalia Rodas, PT - 11/13/2023 5:30 PM CST Physical Therapy Visit 11/13/23 Finesse Ramirez 1970, female [id number] Diagnosis Plan 1. Left hip pain 2. Encounter for other orthopedic aftercare Cecilia Conn MD [address] [facility] [address]6B[address] [place] [address] Subjective: Patient went back to work yesterday and has been having increased hip pain due to walking during the work day. Objective: See treatment provided. DOS: 10/07/23 Treatment Provided: PROM hip flexion, ER, IR, circumduction Inferior glide joint mob (in supine with 90 deg hip flexion) Bridges Clamshells Quad rock Cat Cow Side plank taps Side steps Retro walking Octane x10 min* Gait training of use of crutch or cane in R UE to offset weight from L LE Assessment: Tolerated treatment fairly well.Focused on PROM and gentle strengthening in attempt to decrease pain levels. Discussed using cane in R UE vs L to offset weigth from surgical hip, as well as encouraging pt to find a cane that is taller in order to improve stability. Plan: Cont per POC progressing per protocol. Start Time: 1744 (late) End Time: 1817 Nathalia Rodas PT, DPT, COMT TY SPECIALIST documented in this encounter Plan of Treatment Not on file documented as of this encounter Visit Diagnoses Diagnosis Left hip pain- Primary Pain in joint, pelvic region and thigh Encounter for other orthopedic aftercare documented in this encounter Care Teams Fire Hazard Inspector Relationship Specialty Start Date End Date Laureano Lantigua MD [address] [facility] [place] [address] PCP - General Internal Medicine 07/30/18 Tony Washington MD [address] [facility] [address] [place] [address] Dowel Sander Operator Obstetrics and Gynecology 11/16/18 Anahy Rosales MD [address] [place] [address] [facility] [address] Referring Physician Psychiatry 11/16/18 Nathalia Rodas PT Physical Therapist Physical Therapy 02/14/23 documented as of this encounter
--- OUTSIDE RECORDS SUMMARY | 2024-11-15 03:23 | XMS_ITS | Encounter Summary ---
Author Organization [facility] Address [address] [place] [address] Phone Care Team Providers Care Senior Database Engineer Name Role Phone Laureano Lantigua MD Primary Care Provider [phone] Tony Washington MD Unavailable [phone] Anahy Rosales MD Unavailable [phone] Nathalia Rodas PT Unavailable Unavailable Reason for Referral * Diagnostic Imaging (Routine) - Closed Specialty Diagnoses / Procedures Referred By Contac t Referred To Contact Diagnoses Left hip pain Procedures FL Fluoro Guided Injection Hip Left Cecilia Conn MD [address] [facility] [address]6B[address] [place] [address] Phone: tel: fax: External Order Referral ID Status Reason Start Date Expiration Date Visits Re quested Visits Authorized [id number] Closed 11/18/2023 12/17/2024 1 1 NICAL SUPPORT ASSOCIATE Reason for Visit * Reason Comments Post-op Encounter Details Date Type Department Care Team (Late st Contact Info) Description 11/18/2023 1:45 PM TECHNICAL SUPPORT ASSOCIATE Office Visit [facility] Orthopaedic Surgery [address] [facility] Medical Office Building [address] [place] [address] Cecilia Conn MD [address] [facility] [place] [address] Left hip pain (Primary Dx) Social History [...] on file Legal Sex Female 1:37 AM TECHNICAL SUPPORT ASSOCIATE Gender Identity Female 10/03/2023 10:05 AM TECHNICAL SUPPORT ASSOCIATE Sexual Orientation Straight 10/03/2023 10 :05 AM TECHNICAL SUPPORT ASSOCIATE documented as of this encounter Progress Notes * Kaylin Ruiz, BJean PierreA. - 11/18/2023 1:45 PM CST Post Op Note History She is 6 weeks s/p Left Hip Arthroscopy, Labrum Debridement, Chondroplasty and Capsula Repair. She has been having some left hip and lower back pain, described as a knot. in her back. She has been continuing with the physical therapy. She has been using a cane after walking for long periods. PE Pain with fadir and damon Plan She should continue with the physical therapy and see me back in 6 weeks. I would like her to be onlight duty at work for the next 6 weeks. We will also put an order in for a left hip steroid injection and a muscle relaxer valium. We will see her back in 6 weeks. She agrees with this plan. Kaylin Ruiz, korinaibed for Dr. Abdalla in the doctor's presence. I electronically signed this note at 3:05 PM on 11/18/2023. NICAL SUPPORT ASSOCIATE documented in this encounter Plan of Treatment Scheduled Orders Name Type Priority Associated Diagnoses Orde r Schedule FL Fluoro Guided Injection Hip Left Imaging Schedule Routine, Read Routine (OP Routine) Left hip pain Expected: 11/18/2023, Expires: 11/18/2024 documented as of this encounter Visit Diagnoses Diagnosis Left hip pain- Primary Pain in joint, pelvic region and thigh documented in this encounter Historical Medications * This list may reflect changes made after this encounter. scopolamine 1 mg over 3 days patch [address] 1 PATCH ON THE SKIN ONCE FOR 1 DOSE 09/26/2023 02/04/2024 added in this encounter Care Teams Senior Database Engineer Relationship Specialty Start Date End Date Laureano Lantigua MD [address] [place] [address] PCP - General Internal Medicine 07/30/18 Tony Washington MD [address] [place] [address] [address] [place] [address] Director Of Pharmacy Obstetrics and Gynecology 11/16/18 Anahy Rosales MD [address] [place] [address] Referring Physician Psychiatry 11/16/18 Nathalia Rodas, PT Physical Therapist Physical Therapy 02/14/23 documented as of this encounter
--- OUTSIDE RECORDS SUMMARY | 2024-11-15 03:23 | XMS_ITS | Encounter Summary ---
Author Organization [facility] Healthcare Address [address] [place] [address] Care Team Providers Care Insole Buffer Name Role Phone Laureano Lantigua MD Primary Care Provider [phone] Tony Washington MD Unavailable [phone] Anahy Rosales MD Unavailable [phone] Nathalia Rodas PT Unavailable Unavailable Reason for Visit * Reason Comments PT Treatment * Consultation (Routine) - Closed Specialty Diagnoses / Procedures Referred By Contмария t Referred To Contact Physical Therapy Diagnoses Left hip pain Cecilia Conn MD [address] [facility] [address] [place] [address] Phone: tel: fax: External Order Referral ID Status Reason Start Date Expiration Date V isits Requested Visits Authorized [id number] Closed Specialty Services Required 10/02/2023 10/31/2024 24 24 Encounter Details Date Type Department Care Team (Late st Contact Info) Description 12/24/2023 7:00 AM THERAPEUTIC SALES SPECIALIST Therapy [facility] [place] [address] Alfredo Rodríguez, PT Left hip pain (Primary [...] on file Legal Sex Female 1:37 AM THERAPEUTIC SALES SPECIALIST Gender Identity Female 10/03/2023 10:05 AM THERAPEUTIC SALES SPECIALIST Sexual Orientation Straight 10/03/2023 10 :05 AM THERAPEUTIC SALES SPECIALIST documented as of this encounter Progress Notes * Alfredo Rodríguez, PT - 12/24/2023 7:00 AM CST Physical Therapy Visit 12/24/23 Finesse Ramirez 1970, female [id number] Diagnosis Plan 1. Left hip pain 2. Encounter for other orthopedic aftercare 3. Unilateral primary osteoarthritis, left hip Cecilia Conn MD [address] [facility] [address]6B[address] [place] [address] Subjective: Finesse states she continues to feel pain depending on what she does. She continues to struggle with back pain and sciatica and her work requires frequent standing/walking, bending forward,and getting up/down from things on the ground. She often cannot use a cane when walking at work on rock, grass, etc. Objective: See treatment provided. Gait: ambulates without [...] rotation DOS: 10/07/23 Treatment Provided: PROM hip extension, IR/ER prone - over 2 pillows Inferior glide joint mob (in supine with 90 deg hip flexion) STM posterior hip and lumbar/SIJ Bridges green TB Clamshells green TB Reverse clamshells red TB Quad rock Cat Cow Planks - on hands* Side plank taps* Side steps red TB Retro walking Mini squats Wall squats with SB x15 SL balance - firm surface & blue foam Rockerboard fwd/bkwd Split lunge x10 each Octane x6 min first Gait training of use of crutch or cane in R UE to offset weight from L LE* Assessment: Finesse continues to be limited by back pain and sciatica. ROM is generally WNL; she responds well to gentle strengthening and demonstrates good pelvic control with single leg standing. Added isometric hip abd/add to HEP as patient asked for additional exercises to perform at home that will help with pain modulation after a work day. Plan: Cont per POC progressing per protocol. Start Time: 702 End Time: 744 Nathalia Rodas, PT, DPT, COMT APEUTIC SALES SPECIALIST documented in this encounter Plan of Treatment Not on file documented as of this encounter Visit Diagnoses Diagnosis Left hip pain- Primary Pain in joint, pelvic region and thigh Encounter for other orthopedic aftercare Unilateral primary osteoarthritis, left hip documented in this encounter Care Teams Insole Buffer Relationship Specialty Start Date End Date Laureano Lantiuga MD [address] [place] [address] PCP - General Internal Medicine 07/30/18 Tony Washington MD [address] [place] [address] [address] [place] [address] Graphite Pan Drier Tender Obstetrics and Gynecology 11/16/18 Anahy Rosales MD [address] [place] [address] [address] [place] [address] Referring Physician Psychiatry 11/16/18 Nathalia Rodas, PT Physical Therapist Physical Therapy 02/14/23 documented as of this encounter
--- OUTSIDE RECORDS SUMMARY | 2024-11-15 03:23 | XMS_ITS | Encounter Summary ---
Author Organization [facility] Address [address] [place] [address] Phone Care Team Providers Care Pyrotechnic Mixer Name Role Phone Laureano Lantigua MD Primary Care Provider [phone] Tony Washington MD Unavailable [phone] Anahy Rosales MD Unavailable [phone] Nathalia Rodas PT Unavailable Unavailable Reason for Referral * Procedure (Routine) - Authorized Specialty Diagnoses / Procedures Referred By Contac t Referred To Contact Diagnoses Pain of left hip Procedures Large Joint Injection: L hip joint Cecilia Conn MD [address] [facility] [address] [place] [address] Phone: tel: fax: [facility] (All Locations) Referral ID Status Reason Start Date Expiration Date V isits Requested Visits Authorized [id number] Authorized 02/05/2024 03/06/2025 1 1 Reason for Visit * Reason Comments Follow-up Encounter Details Date Type Department Care Team (Late st Contact Info) Description 02/04/2024 2:00 PM CDT Office Visit [facility] [address] [facility] [address] [place] [phone] Cecilia Conn MD [address] [place] [address] Pain of left hip (Primary Dx) Social History Tobacco Use Types [...] on file Legal Sex Female 1:37 AM 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 - 02/04/2024 2:00 PM CDTAssociated Order(s): Large Joint Injection: L hip joint Post-Procedure Diagnose(s): Pain of left hip Post Op Note History She is 3 months s/p Left Hip Arthroscopy, Labrum Debridement, Chondroplasty and Capsula Repair. Shehas been having some left hip and lower back pain, described as a tightness in her back. She has been continuing with the physical therapy. Explained to the patient that during surgery there was a severely hypertrophy labrum and we trimmed it down. She has been trying to get in to see Dr. Kapoorfor her back pain without success. Physical Exam Pain in the left groin and abductor. She also has pain with FADIR and CAM Plan I would like to proceed with [...] local skin and subcutaneous tissues were injected with 5 cc 1% lidocaine, an intraarticular injection containing 6 ml of marcaine and 2ml of depo was injected withoutcomplication. The procedure was well tolerated. Large Joint [...] the procedure well with no immediate complications Sincerely, Dr Rm Ruiz, scribed for Dr. Abdalla in the doctor's presence. I electronically signed this note at 10:42 PM on 02/03/2024. documented in this encounter Plan of Treatment Not on file documented as of this encounter Procedures Procedure Name Priority Date/Time Associated Diagnosis Comments OR ARTHROCENTESIS ASPIR&/INJ MAJOR JT/BURSA W/O US Routine 02/04/2024 2:00 PM CDT Pain of left hip documented in this encounter Results * OR ARTHROCENTESIS ASPIR&/INJ MAJOR JT/BURSA W/O US (02/04/2024 2:00 PM CDT) Narrative Cecilia Conn MD - 02/04/2024 2:00 PM CDT Cecilia Conn MD ? 02/05/2024 ??9:36 AM Large Joint Injection: L hip joint Performed [...] the procedure well with no immediate complications us Cecilia Ruggiero MD IN CLINIC/[facility]ED[facility] ORD ERABLES Final Result documented in this encounter Visit Diagnoses Diagnosis Pain of left hip- Primary documented in this encounter Administered Medications Inactive Administered Medications - up to 3 most recent administrations Medication Order MAR Action Action Date Dose Rate Site BUPivacaine HCl (MARCAINE) 0.25 % (2.5 mg/mL) injection 6 mL 6 mL, intra-articular, One-Time Injection, Starting on Fri02/04/24 at 1400, For 1 doseIndications:Pain of left hip Given 02/04/2024 2:00 PM CDT 6 mL Left Hip triamcinolone (KENALOG) 40 mg/mL injection 80 mg 80 mg, intra-articular, One-Time Injection, Starting on Fri02/04/24 at 1400, For 1 doseIndications:Pain of left hip Given 02/04/2024 2:00 PM CDT 80 mg Left Hip documented in this encounter Discontinued Medications Medication Sig Discontinue Reason Start Date End Da te aspirin 81 mg enteric coated tablet Take 1 tablet (81 mg total) by mouth 2 (two) times a day Therapy completed 10/03/2023 02/04/2024 naproxen (NAPROSYN) 500 mg tablet Take 2 with breakfast the day before surgery then one tablet twice a day for 14 days Therapy completed 10/03/2023 02/04/2024 scopolamine 1 mg over 3 days patch [address] 1 PATCH ON THE SKIN ONCE FOR 1 DOSE Therapy completed 09/26/2023 02/04/2024 documented as of this encounter Care Teams Pyrotechnic Mixer Relationship Specialty Start Date End Date Laureano Lantigua MD [address] [place] [address] PCP - General Internal Medicine 07/30/18 Tony Washington MD [address] [place] [address] [address] [place] [address] Electrician Yard Obstetrics and Gynecology 11/16/18 Anahy Rosales MD [address] [place] [address] [address] [place] [address] Referring Physician Psychiatry 11/16/18 Nathalia Rodas, PT Physical Therapist Physical Therapy 02/14/23 documented as of this encounter
--- OUTSIDE RECORDS SUMMARY | 2024-11-15 03:23 | XMS_ITS | Encounter Summary ---
Author Organization [facility] Healthcare Address [address] [place] [address] Care Team Providers Care Circle Shear Operator Name Role Phone Laureano Lantigua MD Primary Care Provider [phone] Tony Washington MD Unavailable [phone] Anahy Rosales MD Unavailable [phone] Nathalia Rodas PT Unavailable Unavailable Reason for Visit * Consultation (Routine) - Closed Specialty Diagnoses / Procedures Referred By Contac t Referred To Contact Physical Therapy Diagnoses Left hip pain Cecilia Conn MD [address] [facility] [address] [place] [address] Phone: tel: fax: External Order Referral ID Status Reason Start Date Expiration Date V isits Requested Visits Authorized [id number] Closed Specialty Services Required 10/02/2023 10/31/2024 24 24 Encounter Details Date Type Department Care Team (Late st Contact Info) Description 10/28/2023 4:00 PM NEEDLE STRAIGHTENER Therapy [facility] [place] [address] Tyrone Solomon, PT Left hip pain (Primary Dx); Encounter [...] on file Legal Sex Female 1:37 AM NEEDLE STRAIGHTENER Gender Identity Female 10/03/2023 10:05 AM NEEDLE STRAIGHTENER Sexual Orientation Straight 10/03/2023 10 :05 AM NEEDLE STRAIGHTENER documented as of this encounter Progress Notes * Tyrone Solomon, PT - 10/28/2023 4:00 PM CST Physical Therapy Visit 10/28/23 Finesse Ramirez 1970, female [id number] Diagnosis Plan 1. Left hip pain 2. Encounter for other orthopedic aftercare Cecilia Conn MD [address] [facility] [address] [place] [address] Subjective: Patient reports that she has been performing her exercises intermittently. Pain: 11/26 Objective: See treatment provided. Treatment Provided: PROM hip flexion, ER, IR, circumduction Bridges Clamshells Quad rock Cat Cow Gait training of use of crutch or cane in R UE to offset weight from L LE Assessment: Tolerated treatment fairly well. Plan: Cont per POC progressing per protocol. Start Time: 1601 End Time: 1639 Tyrone Solomon PT LE STRAIGHTENER documented in this encounter Plan of Treatment Not on file documented as of this encounter Visit Diagnoses Diagnosis Left hip pain- Primary Pain in joint, pelvic region and thigh Encounter for other orthopedic aftercare documented in this encounter Care Teams Circle Shear Operator Relationship Specialty Start Date End Date Laureano Lantigua MD [address] [place] [address] PCP - General Internal Medicine 07/30/18 Tony Washington MD [address] [facility] [address] [place] [address] Chorus Master Obstetrics and Gynecology 11/16/18 Anahy Rosales MD [address] [facility] [address] [place] [address] Referring Physician Psychiatry 11/16/18 Nathalia Rodas, PT Physical Therapist Physical Therapy 02/14/23 documented as of this encounter
--- OUTSIDE RECORDS SUMMARY | 2024-11-15 03:23 | XMS_ITS | Encounter Summary ---
Author Organization [facility] Healthcare Address [address] [place] [address] Care Team Providers Care Tie Hacker Name Role Phone Laureano Lantigua MD Primary Care Provider [phone] Tony Washington MD Unavailable [phone] Anahy Rosales MD Unavailable [phone] Nathalia Rodas PT Unavailable Unavailable Encounter Details Date Type Department Care Team (Late st Contact Info) Description 09/26/2023 Orders Only [facility] Anesthesia [address] [place] [address] Aimee Aggarwal, HAVEN [address] [facility] [address] [place] [address] Social History Tobacco Use Types Packs/Day Years [...] file Legal Sex Female 1:37 AM SCALLOP CUTTER MACHINE Gender Identity Female 10/03/2023 10:05 AM SCALLOP CUTTER MACHINE Sexual Orientation Straight 10/03/2023 10 :05 AM SCALLOP CUTTER MACHINE documented as of this encounter Ordered Prescriptions Prescription Sig Dispense Quantity Refills Last Filled Start Date End Date scopolamine 1 mg over 3 days patch 3 dayIndications:Prev ention of Post-Operative Nausea and Vomiting Place 1 patch on the skin once for 1 dose 1 patch 09/26/2023 09/26/2023 documented in this encounter Plan of Treatment Not on file documented as of this encounter Visit Diagnoses Not on filedocumented in this encounter Care Teams Tie Hacker Relationship Specialty Start Date End Date Laureano Lantigua MD [address] [place] [address] PCP - General Internal Medicine 07/30/18 Tony Washington MD [address] [place] [address] [place] [address] Production Lapping Machine Operator Obstetrics and Gynecology 11/16/18 Anahy Rosales MD [address] [place] [address] [place] [address] Referring Physician Psychiatry 11/16/18 Nathalia Rodas, PT Physical Therapist Physical Therapy 02/14/23 documented as of this encounter
--- OUTSIDE RECORDS SUMMARY | 2024-11-15 03:24 | XMS_ITS | Encounter Summary ---
Author Organization [facility] Address [address] [address] Care Team Providers Care Internal Auditor Name Role Phone Laureano Lantigua MD Primary Care Provider + [phone] Tony Washington MD Unavailable [phone] Anahy Rosales MD Unavailable [phone] Nathalia Rodas PT Unavailable Unavailable Reason for Visit * Reason Onset Date Comments Proof of Medication 04/04/2023 Encounter Details Date Type Department Care Team (Late st Contact Info) Description 04/04/2023 Telephone [facility] [address] [place] [id number] Laureano Lantigua MD [address] [address] Proof of Medication Social History Tobacco Use Types Packs/Day Years Used Date Smoking Tobacco: Never Smokeless Tobacco: Never Alcohol Use Standard Drinks/Week Comments Yes 0 (1 standard drink = 0.6 oz pur e alcohol) AUDIT-C Answer Date Recorded Q1: How often do you have a drink containing alc ohol? 2-4 times a month 03/10/2023 Q2: How many drinks containi ng alcohol do you have on a typical day when you are drinking? 3 or 4 03/10/2023 Frequency of Binge Drinking Not on file 02/16 PHQ-2 Answer Date Recorded PHQ-2 Total Score (If total score is 3 or more points, staff should administer the PHQ-9) 0 01/28/2023 Comments No Sex and Gender Information Value Date Recorded Sex Assigned at Not on file Legal Sex Female 1:37 AM ASSISTANT PROFESSOR OF ANTHROPOLOGY Gender Identity Female 10/03/2023 10:05 AM ASSISTANT PROFESSOR OF ANTHROPOLOGY Sexual Orientation Straight 10/03/2023 10 :05 AM ASSISTANT PROFESSOR OF ANTHROPOLOGY documented as of this encounter Miscellaneous Notes * Telephone Encounter - Bre Tran RN - 04/07/2023 11:48 AM CDT Letter was prepared and is ready for pick-up at Registration Desk/Lobby. Patient was notified of above and also to be prepared to pay $20 for service provided outside an office visit. Patient verbalized her understanding. Copy of letter was sent to [employer]. * Telephone Encounter - Laureano Lantigua MD - 04/07/2023 9:06 AM CDT Sounds good Please keep them safe * Telephone Encounter - Bre Tran RN - 04/07/2023 8:[address] JAY - Are you okay with the patient's request for a letter as in previous message? Medications that I see that are prescribed by you include: Percocet, Soma, Albuterol, and Buspar. These are the only medications that I would include in a letter. * Telephone Encounter - Debbie Villalba - 04/04/2023 1:10 PM CDT Patient calling to state she needs a letter to prove what medications she take and why to be able to leave the country The letter needs to have the name of patient, the names of the countries she is going to, the name of medications, doses and strength, and Dr. CHING signature. She'll be gone from April 08 until April 23. Pt is going to [place], and can nut picker letter on Friday. Please advise Pt cbn: [phone] documented in this encounter Plan of Treatment Not on file documented as of this encounter Visit Diagnoses Not on filedocumented in this encounter Care Teams Internal Auditor Relationship Specialty Start Date End Date Laureano Lantigua MD [address] [facility] [place] [place] [address] PCP - General Internal Medicine 07/30/18 Tony Washington MD [address] [facility] [address] [facility] [place] [address] Charting Clerk Obstetrics and Gynecology 11/16/18 Anahy Rosales MD [address] [facility] [address] [facility] [place] [address] Referring Physician Psychiatry 11/16/18 Nathalia Rodas, PT Physical Therapist Physical Therapy 02/14/23 documented as of this encounter
--- OUTSIDE RECORDS SUMMARY | 2024-11-15 03:24 | XMS_ITS | Encounter Summary ---
Author Organization [facility] Address [address] [facility] [address] [place] [address] Care Team Providers Care Diver'S Tender Name Role Phone Laureano Lantigua MD Primary Care Provider [phone] Tony Washington MD Unavailable [phone] Anahy Rosales MD Unavailable [phone] Nathalia Rodas PT Unavailable Unavailable Reason for Visit * Reason Onset Date Comments Post Op Phone Call 03/17/2023 Encounter Details Date Type Department Care Team (Late st Contact Info) Description 03/17/2023 Telephone [facility] [address] [place] [address] [address] [place] [address] Rose Barriga RN Post Op Phone Call Social History Tobacco Use Types Packs/Day Years [...] on file Legal Sex Female 1:37 AM APARTMENT GROUNDSKEEPER Gender Identity Female 10/03/2023 10:05 AM APARTMENT GROUNDSKEEPER Sexual Orientation Straight 10/03/2023 10 :05 AM APARTMENT GROUNDSKEEPER documented as of this encounter Miscellaneous Notes * Telephone Encounter - Rose Barriga RN - 03/17/2023 10:30 AM CDT Spoke to pt for post op phone call. Pt doing well. Enc to call with any concerns. documented in this encounter Plan of Treatment Not on file documented as of this encounter Visit Diagnoses Not on filedocumented in this encounter Care Teams Diver'S Tender Relationship Specialty Start Date End Date Laureano Lantigua MD [address] [facility] [place] [address] PCP - General Internal Medicine 07/30/18 Tony Washington MD [address] [place] [address] [place] [address] Digester Operator Obstetrics and Gynecology 11/16/18 Anahy Rosales MD [address] [place] [address] [place] [address] Referring Physician Psychiatry 11/16/18 Nathalia Rodas, PT Physical Therapist Physical Therapy 02/14/23 documented as of this encounter
--- OUTSIDE RECORDS SUMMARY | 2024-11-15 03:24 | XMS_ITS | Encounter Summary ---
Author Organization [facility] Medical Group Address [address] [facility] [address] [place] [address] Care Team Providers Care Administrative Secretary Name Role Phone Laureano Lantigua MD Primary Care Provider [phone] Tony Washington MD Unavailable [phone] Anahy Rosales MD Unavailable [phone] Nathalia Rodas PT Unavailable Unavailable Reason for Visit * Reason Onset Date Comments PA for Surgery 03/10/2023 Encounter Details Date Type Department Care Team (Late st Contact Info) Description 03/10/2023 Telephone [facility] [address] [place] [address] [address] [place] [address] Rose Barriga RN PA for Surgery Social History Tobacco Use Types Packs/Day Years [...] on file Legal Sex Female 1:37 AM AGRONOMIST Gender Identity Female 10/03/2023 10:05 AM AGRONOMIST Sexual Orientation Straight 10/03/2023 10 :05 AM AGRONOMIST documented as of this encounter Miscellaneous Notes * Telephone Encounter - Rose Barriga RN - 03/10/2023 1:07 PM CDT Did code look up on [employer]. CPT code 88783 does not require PA. documented in this encounter Plan of Treatment Not on file documented as of this encounter Visit Diagnoses Not on filedocumented in this encounter Care Teams Administrative Secretary Relationship Specialty Start Date End Date Laureano Lantigua MD [address] [facility] [place] [address] PCP - General Internal Medicine 07/30/18 Tony Washington MD [address] [place] [address] [address] [place] [address] Junior Sales Representative Obstetrics and Gynecology 11/16/18 Anahy Rosales MD [address] [place] [address] [place] [address] Referring Physician Psychiatry 11/16/18 Nathalia Rodas, HENRY Physical Therapist Physical Therapy 02/14/23 documented as of this encounter
--- OUTSIDE RECORDS SUMMARY | 2024-11-15 03:24 | XMS_ITS | Encounter Summary ---
Author Organization [facility] Healthcare Address [address] [place] [address] Care Team Providers Care Aquatic Ecologist Name Role Phone Laureano Lantigua MD Primary Care Provider [phone] Tony Washington MD Unavailable [phone] Anahy Rosales MD Unavailable [phone] Nathalia Rodas PT Unavailable Unavailable Reason for Referral * Diagnostic Imaging (Routine) - Closed Specialty Diagnoses / Procedures Referred By Contac t Referred To Contact Diagnoses Left hip pain Procedures XR Pelvis 1 or 2 Views Chidi Beltran MD [address] [place] [address] Phone: tel: fax: [address] [address] Referral ID Status Reason Start Date Expiration Date Visits Re quested Visits Authorized [id number] Closed 08/13/2023 09/11/2024 1 1 Reason for Visit * Diagnostic Imaging (Routine) - Closed Specialty Diagnoses / Procedures Referred By Contac t Referred To Contact Diagnoses Left hip pain Procedures XR Pelvis 1 or 2 Views Chidi Beltran MD [address] [place] [address] Phone: tel: fax: [facility] [address] [place] [address] Referral ID Status Reason Start Date Expiration Date Visits Re quested Visits Authorized [id number] Closed 08/13/2023 09/11/2024 1 1 Encounter Details Date Type Department Care Team (Latest Contact Info) Description 08/18/2023 9:59 AM CDT - 08/18/2023 11:59 PM CDT Hospital Encounter [facility] [address] [facility] [address] [place] [address] Left hip pain Discharge Disposition: Discharge to [...] file Legal Sex Female 1:37 AM MANAGER SALES AND MARKETING Gender Identity Female 10/03/2023 10:05 AM MANAGER SALES AND MARKETING Sexual Orientation Straight 10/03/2023 10 :05 AM MANAGER SALES AND MARKETING documented as of this encounter Medications at Time of Discharge albuterol HFA (PROVENTIL HFA,VENTOLIN HFA,PROAIR HFA) 90 mcg/actuation inhaler 2 puffs qid prn 1 each 11 01/04/2022 ferrous sulfate 325 mg (65 mg of elemental iron) tabletIndications:I mehreen Deficiency Anemia Take 1 tablet (325 mg total) by mouth daily with breakfast magnesium phosphate, bulk, powderIndications:s upplement Take 1 tablet by mouth every morning traZODone (DESYREL) 50 mg tabletIndications:s leep Take 1 tablet (50 mg total) by mouth nightly 02/03/2023 busPIRone (BUSPAR) 10 mg tablet Take 1 tablet (10 mg total) by mouth daily as needed (anxiety) 30 tablet 5 10/18/2021 4 carisoprodoL (SOMA) 350 mg tabletIndications:M uscle Spasm Take 1 tablet (350 mg total) by mouth nightly as needed for muscle spasms 15 tablet 01/09/2022 3 estradioL (VIVELLE-DOT) 0.05 mg/[address] one patch on the skin twice weekly 24 patch 3 04/07/2023 4 magnesium amino acid chelate (mag amino acid chelate, bulk,) 20 % powder 3 methylphenidate ER (CONCERTA) 27 mg CR tabletIndications:A ttention-Deficit Hyperactivity Disorder Take 1 tablet (27 mg total) by mouth every morning 4 oxyCODONE-acetamino phen (PERCOCET) 5-325 mg per tabletIndications:P ain Take 1 tablet by mouth every 8 (eight) hours as needed for pain 20 tablet 03/13/2023 3 progesterone (PROMETRIUM) 200 mg capsule One pill for 12 days every 3 months. 12 capsule 3 04/07/2023 4 UNABLE TO FINDIndications:sup plement Take 1 each by mouth every morning Med Name: Prebiotic Plus 3 documented as of this encounter Discharge Disposition Disposition Code Departure Means Destination Discharge to home or self care documented in this encounter Plan of Treatment Not on file documented as of this encounter Procedures Procedure Name Priority Date/Time Associated Diagnosis Comments XR PELVIS 1 OR 2 VIEWS Schedule Routine, Read Routine (OP Routine) 08/18/2023 10:09 AM CDT Left hip pain documented in this encounter Results * XR Pelvis 1 or 2 Views (08/18/2023 10:09 AM CDT) Anatomical Region Laterality Modality Body, Pelvis N/A Digital Radiogra phy 08/18/2023 1:17 PM CDT Impressions 08/18/2023 1:17 PM CDT Mild bilateral hip osteoarthritis. ??No displaced fracture on this single view of the pelvis. ??Lower lumbar sacral spinal fusion. 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 Electronically signed by: Diana Huddleston M.D. Narrative 08/18/2023 1:17 PM CDT EXAMINATION: 1 VIEW OF THE PELVIS DATE: 08/18/2023 10:15 AM COMPARISON: 07/16/2017 HISTORY: hip pain hip pain Procedure Note Diana Huddleston MD - 08/18/2023 EXAMINATION: 1 VIEW OF THE PELVIS DATE: 08/18/2023 10:15 AM COMPARISON: 07/16/2017 HISTORY: hip pain hip pain IMPRESSION: Mild bilateral hip osteoarthritis. No displaced fracture on this single view of the pelvis. Lower lumbar sacral spinal fusion. 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 Electronically signed by: Diana Huddleston M.D. Chidi Beltran MD IMG XR PROCEDURES Final Result documented in this encounter Visit Diagnoses Diagnosis Left hip pain Pain in joint, pelvic region and thigh documented in this encounter Care Teams Aquatic Ecologist Relationship Specialty Start Date End Date Laureano Lantigua MD [address] [place] [address] PCP - General Internal Medicine 07/30/18 Tony Washington MD [address] [place] [address] [place] [address] Carriage Operator Obstetrics and Gynecology 11/16/18 Anahy Rosales MD [address] [facility] [place] [address] Referring Physician Psychiatry 11/16/18 Nathalia Rodas, PT Physical Therapist Physical Therapy 02/14/23 documented as of this encounter
--- OUTSIDE RECORDS SUMMARY | 2024-11-15 03:24 | XMS_ITS | Encounter Summary ---
Author Organization [facility] Address [address] [place] [address] Care Team Providers Care Calker Name Role Phone Laureano Lantigua MD Primary Care Provider [phone] Tony Washington MD Unavailable [phone] Anahy Rosales MD Unavailable [phone] Nathalia Rodas PT Unavailable Unavailable Reason for Visit * Reason Comments Post-op 4 week s/p Dx hyster Laly lugo D&C Encounter Details Date Type Department Care Team (Latest Contact Info) Description 04/07/2023 1:00 PM CDT Clinical Support Abel Yoon [address] [place] [address] [address] [place] [id number] Tony Washington MD [address] [place] [address] [address] [place] [address] Follow-up examination after gynecological surgery (Primary Dx); Symptomatic menopausal or female climacteric states Social [...] on file Legal Sex Female 1:37 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 Gender Identity Female 10/03/2023 10:05 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 Sexual Orientation Straight 10/03/2023 10 :05 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 documented as of this encounter Last Filed Vital Signs Vital Sign Reading Time Taken Comments Blood Pressure 170/100 04/07/2023 1:07 PM CDT Pulse - - Temperature - - Respiratory Rate - - Oxygen Saturation - - Inhaled Oxygen Concentration - - Weight 100.2 kg (221 lb) 04/07/2023 1:07 PM CDT Height - - Body Mass Index 29.97 03/12/2023 7:58 AM CDT documented in this encounter Ordered Prescriptions Prescription Sig Dispense Quantity Refills Last Filled Start Date End Date progesterone (PROMETRIUM) 200 mg capsule One pill for 12 days every 3 months. 12 capsule 3 04/07/2023 02/16/2024 estradioL (VIVELLE-DOT) 0.05 mg/[address] one patch on the skin twice weekly 24 patch 3 04/07/2023 02/16/2024 documented in this encounter Progress Notes * Tony Washington MD - 04/07/2023 1:00 PM CDT Postop Note Subjective: Finesse Ramirez is a 53 y.o. year old female who presents 4 weeks s/p Novasure endometrial ablation.Pathology was benign. She denies complaints except increased hot flashes and night sweats. She would like to start HRT. She is upset as she was supposed to travel to [place] with her son as a graduation gift but her passport is lost despite paying extra to expedite the process a few months ago. Patient's last menstrual period was 03/01/2023 (exact date). Current Outpatient Medications: albuterol HFA (PROVENTIL HFA,VENTOLIN HFA,PROAIR HFA) 90 mcg/actuation inhaler, 2 puffs qid prn, Disp: 1 each, Rfl: 11 busPIRone (BUSPAR) 10 mg tablet, Take 1 tablet (10 mg total) by mouth daily as needed (anxiety), Disp: 30 tablet, Rfl: 5 carisoprodoL (SOMA) 350 mg tablet, Take 1 tablet (350 mg total) by mouth nightly as needed for muscle spasms, Disp: 15 tablet, Rfl: 0 ferrous sulfate 325 mg (65 mg of elemental iron) tablet, Take 1 tablet (325 mg total) by mouth daily with breakfast, Disp: , Rfl: ibuprofen (ADVIL,MOTRIN) 600 mg tablet, Take 1 tablet (600 mg total) by mouth every 6 (six) hours as needed for pain (pain), Disp: 30 tablet, Rfl: 0 magnesium amino acid chelate (mag amino acid chelate, bulk,) 20 % powder, , Disp: , Rfl: magnesium phosphate, bulk, powder, , Disp: , Rfl: methylphenidate ER (CONCERTA) 27 mg CR tablet, Take 1 tablet (27 mg total) by mouth every morning, Disp: , Rfl: oxyCODONE-acetaminophen (PERCOCET) 5-325 mg per tablet, Take 1 tablet by mouth every 8 (eight) hours as needed for pain, Disp: 20 tablet, Rfl: 0 traZODone (DESYREL) 50 mg tablet, Take 1 tablet (50 mg total) by mouth nightly, Disp: , Rfl: UNABLE TO FIND, Med Name: Prebiotic Plus, Disp: , Rfl: estradioL (VIVELLE-DOT) 0.05 mg/24 hr, Place one patch on the skin twice weekly, Disp: 24 patch, Rfl: 3 progesterone (PROMETRIUM) 200 mg capsule, One pill for 12 days every 3 months., Disp: 12 capsule, Rfl: 3 Allergies Allergen Reactions Erythromycin Rash Reaction: Rash, Morphine Nausea only and Vomiting Reaction: Nausea, Vomiting, , Reaction: Nausea, Vomiting, , Vicodin [Hydrocodone-Acetaminophen] Vomiting Review of Systems Objective: BP 170/100 (BP Location: Left arm) Wt 221 lb (100.2 kg) LMP 03/01/2023 (Exact Date) BMI 29.97kg/m?? Physical Exam: General: Pleasant female in no acute distress. HEENT: WNL Abdomen: soft, nontender. Pelvic Exam: External Genitalia: WNL Urethra and meatus: WNL Vagina: no lesions. Cervix: no CMT or lesions, moderate mucous. Uterus: WNL size, NT Adnexa: nontender, no masses. Assessment and Plan: Diagnoses and all orders for this visit: Follow-up examination after gynecological surgery (Primary) Comments: Doing well. Pictures reviewed. Symptomatic menopausal or female climacteric states Comments: Will begin Vivelle dot .05 mg twice weekly to skin and progesterone 200 mg for 12 days every 3 months. Other orders - estradioL (VIVELLE-DOT) 0.05 mg/24 hr; Place one patch on the skin twice weekly - progesterone (PROMETRIUM) 200 mg capsule; One pill for 12 days every 3 months. Benefits and risks of HRT discussed briefly. Call if any bleeding. Return for annual exam. Tony Washington MD 04/07/2023 JMT documented in this encounter Plan of Treatment Not on file documented as of this encounter Visit Diagnoses Diagnosis Follow-up examination after gynecological surgery- Primary Symptomatic menopausal or female climacteric states documented in this encounter Discontinued Medications Medication Sig Discontinue Reason Start Date End Da te multivitamin (MULTIPLE VITAMINS) tablet tablet take 1 tablet by oral route every day with food 01/16/2015 04/07/2023 documented as of this encounter Historical Medications * This list may reflect changes made after this encounter. UNABLE TO FINDIndications: supplement Take 1 each by mouth every morning Med Name: Prebiotic Plus 3 magnesium amino acid chelate (mag amino acid chelate, bulk,) 20 % powder 3 added in this encounter Care Teams Calker Relationship Specialty Start Date End Date Laureano Lantigua MD [address] [place] [address] PCP - General Internal Medicine 07/30/18 Tony Washington MD [address] [place] [address] [facility]bed [facility] Obstetrics and Gynecology 11/16/18 Anahy Rosales MD [address] [place] [address] [place] [address] Referring Physician Psychiatry 11/16/18 Nathalia Rodas, PT Physical Therapist Physical Therapy 02/14/23 documented as of this encounter
--- OUTSIDE RECORDS SUMMARY | 2024-11-15 03:24 | XMS_ITS | Encounter Summary ---
Author Organization [facility] Healthcare Address [address] [place] [address] Care Team Providers Care Sap Bobj Developer Name Role Phone Laureano Lantigua MD Primary Care Provider [phone]- [phone] Tony Washington MD Unavailable [phone] Anahy Rosales MD Unavailable [phone] Nathalia Rodas PT Unavailable Unavailable Reason for Visit * Auth/Cert (Routine) Specialty Diagnoses / Procedures Referred By Contac t Referred To Contact Diagnoses Menorrhagia with regular cycle Menorrhagia with regular cycle [N92.0] Procedures MN HYSTEROSCOPY ENDOMETRIAL ABLATION ABLATION UTERINE HYSTEROSCOPY - NOVASURE Referral ID Status Reason Start Date Expiration Date Visits Re quested Visits Authorized [id number] 1 1 Encounter Details Date Type Department Care Team (Late st Contact Info) Description 03/12/2023 9:00 AM CDT - 03/12/2023 10:20 AM CDT Surgery [facility] Operating Room [address] [place] [address] Tony Washington MD [address] [place] [address] [address] ABLATION UTERINE HYSTEROSCOPY - NOVASURE, dilation and curettage Surgery Details Date/Time Status Location OR Service Patient Class Case Class Case Type Trauma Case? 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 Gender Identity Female 10/03/2023 10:05 AM CRIB ATTENDANT Sexual Orientation Straight 10/03/2023 10 :05 AM CRIB ATTENDANT documented as of this encounter Last Filed Vital Signs Vital Sign Reading Time Taken Comments Blood Pressure 146/89 03/12/2023 10:15 AM CDT Pulse 70 03/12/2023 10:15 AM CDT Temperature 36.3 ??C (97.4 ??F) 03/12/2023 9:47 AM CD T Respiratory Rate 20 03/12/2023 10:1 5 AM CDT Oxygen Saturation 95% 03/12/2023 10: 15 AM CDT Inhaled Oxygen Concentration - - Weight 100.1 kg (220 lb 10.9 oz) 03/12/2023 7:58 AM CDT Height 182.9 cm (6') 03/12/2023 7:58 AM CDT Body Mass Index 29.93 03/12/2023 7:58 AM CDT documented in this encounter Discharge Instructions * Attachments The following attachments cannot be sent through Care Everywhere. * General Anesthesia (Discharge Care) (Monegasque) * Ibuprofen (By mouth) (Monegasque) documented in this encounter Medications at Time [...] for muscle spasms 15 tablet 01/09/2022 3 ibuprofen (ADVIL,MOTRIN) 600 mg tablet Take 1 tablet (600 mg total) by mouth every 6 (six) hours as needed for pain (pain) 30 tablet 03/12/2023 3 methylphenidate ER (CONCERTA) 27 mg CR tabletIndications:A ttention-Deficit Hyperactivity Disorder Take 1 tablet (27 mg total) by mouth every morning 4 multivitamin (MULTIPLE VITAMINS) tablet tablet take 1 tablet by oral route every day with food 0 0 01/16/2015 3 oxyCODONE-acetamino phen (PERCOCET) 5-325 mg per tabletIndications:P ain Take 1 tablet by mouth every 8 (eight) hours as needed for pain 20 tablet 03/13/2023 3 documented as of this encounter Ordered Prescriptions Prescription Sig Dispense Quantity Refills Last Filled Start Date End Date ibuprofen (ADVIL,MOTRIN) 600 mg tablet Take 1 tablet (600 mg total) by mouth every 6 (six) hours as needed for pain (pain) 30 tablet 03/12/2023 08/18/2023 documented in this encounter Discharge Disposition Disposition Code Departure Means Destination Comment s Discharge to home or self care documented in this encounter H&P Notes * Tony Washington MD - 03/12/2023 8:34 AM CDT History and Physical Subjective: Joshua Ramirez is a 53 y.o. year old female who presents for Novasure endometrial ablation.Joshua is tiring of her heavy cycles interfering with daily living. Her cycles used to be 5 weeks and now are coming every 3.5-4 weeks and are heavy with 2-1/2 days out of 5 extremely heavy, flooding and overflowing pads and clothes. She will use a super plus tampon and pad. She reports hot flashes at times. She had a steroid shot. She has noticed brain fog and fatigue. She has some urinary incontinence. She requests endometrial ablation rather than medical therapy. Ultrasound shows a heterogeneous uterus measuring 8 x 5 x 4 cm which is normal size with an EMC of 8 mm. Contraception:None. Patient's last menstrual period was 03/01/2023 (exact date). Past Medical History: Diagnosis Date Anxiety Asthma Asthma; Comments: [facility] 06/27/2014 - Cancer (CMS/HCC) (HCC) [facility] Female infertility Infertility, female Fibrocystic breast GERD (gastroesophageal reflux disease) Hammer toe Hammer toe; Comments: [facility] 06/27/2014 - HX OTHER MEDICAL Sinusitis, ADD, diverticulosis, obesity, OA, asthm HX OTHER MEDICAL Depression, with Anxiety; PCOS HX OTHER MEDICAL Missed Ab HX OTHER MEDICAL ; Outcome: [id number] week 7lb(s) 7 oz Male Hypercholesterolemia High cholesterol; Comments: [facility] 06/27/2014 - Hypertension Hypertension Motion sickness Retinal detachment Detachment of retina; Comments: [facility] 06/27/2014 - Past Surgical History: Procedure Laterality Date ANKLE SURGERY Left 2007 Ankle surgery CARDIAC CATHETERIZATION 2013 CARPAL TUNNEL RELEASE Bilateral Carpal tunnel release CHOLECYSTECTOMY 03/2018 COLONOSCOPY 03/27/2021 1st ELBOW SURGERY Left 11/07/2020 x2 FOOT SURGERY Bilateral MOHS SURGERY 07/2021 [facility] OTHER SURGICAL HISTORY Left Rotator Cuff Repair, L. ankle surgery, back surgery x2 OTHER SURGICAL HISTORY samuel carpal tunnel repair, eye surgery, ankle and foot surger OTHER SURGICAL HISTORY retina re-attachment, multiple surgeries OTHER SURGICAL HISTORY Missed Ab: Suction D&C OTHER SURGICAL HISTORY 2007 Right ACL repair OTHER SURGICAL HISTORY 2003 : 1 hr labor ROTATOR CUFF REPAIR Left Rotator cuff repair SHOULDER SURGERY Left SLEEVE GASTROPLASTY Laparoscopic Gastric Sleeve SPINAL FUSION 2010 Spinal fusion L5-S1 Prior to Admission medications Medication Sig Start Date End Date Taking? Authorizing Provider busPIRone (BUSPAR) 10 mg tablet Take 1 tablet (10 mg total) by mouth daily as needed (anxiety) 10/18/21 Yes Laureano Lantigua MD ferrous sulfate 325 mg (65 mg of elemental iron) tablet Take 1 tablet (325 mg total) by mouth dailywith breakfast Yes Kanu Waterman MD magnesium phosphate, bulk, powder Yes Kanu Waterman MD methylphenidate ER (CONCERTA) 27 mg CR tablet Take 1 tablet (27 mg total) by mouth every morning Yes Kanu Waterman MD multivitamin (MULTIPLE VITAMINS) tablet tablet take 1 tablet by oral route every day with food 01/16/15 Yes Laureano Lantigua MD oxyCODONE-acetaminophen (PERCOCET) 5-325 mg per tablet Take 1 tablet by mouth every 8 (eight) hoursas needed for pain 01/04/22 Yes Laureano Lantigua MD albuterol HFA (PROVENTIL HFA,VENTOLIN HFA,PROAIR HFA) 90 mcg/actuation inhaler 2 puffs qid prn 01/04/22 Laureano Lantigua MD carisoprodoL (SOMA) 350 mg tablet Take 1 tablet (350 mg total) by mouth nightly as needed for muscle spasms 01/09/22 Laureano Lantigua MD traZODone (DESYREL) 50 mg tablet Take 1 tablet (50 mg total) by mouth nightly 02/03/23 Kanu Waterman MD Allergies Allergen Reactions Erythromycin Rash Reaction: Rash, Morphine Nausea only and Vomiting Reaction: Nausea, Vomiting, , Reaction: Nausea, Vomiting, , Vicodin [Hydrocodone-Acetaminophen] Vomiting Family History Problem Relation Age of Onset Heart disease Father Heart disease; Heart attack Father Myocardial Infarction; Hyperlipidemia Father High cholesterol; Heart attack Maternal Grandfather Myocardial Infarction; Cause of : Myocardial Infarction Prostate cancer Maternal Grandfather Cancer, prostate; Heart disease Other Heart disease; Heart attack Cousin Myocardial Infarction; Hypertension Mother Hypertension; Hypertension Maternal Grandmother Hypertension; Diabetes Other Diabetes mellitus; Social History Tobacco Use Smoking status: Never Smokeless tobacco: Never Substance and Sexual Activity Drug use: No Sexual activity: Yes control/protection: None Alcohol Use: Heavy Drinker (03/10/2023) AUDIT-C Frequency of Alcohol Consumption: 2-4 times a month Average Number of Drinks: 3 or 4 Frequency of Binge Drinking: Not on file ROS: No chest pain, dyspnea, dysuria or melena. Objective: BP 156/85 Pulse 74 Temp 36.1 ??C (97 ??F) (Temporal) Resp 18 Ht 182.9 cm (6') Wt 220 lb 10.9 oz (100.1 kg) LMP 03/01/2023 (Exact Date) SpO2 97% BMI 29.93 kg/m?? Pleasant female in NAD. Physical Exam: HEENT: WNL Neck: supple, no thyromegaly or cervical LAD Heart: RRR Lungs: clear Abdomen: soft, non-tender, no masses Pelvic: deferred to OR Extremities: non-tender Recent Results (from the past 168 hour(s)) CBC without differential Collection Time: 03/12/23 8:03 AM Result Value Ref Range WBC 6.5 3.8 - 9.9 K/cumm Hgb 13.3 11.9 - 15.5 g/dL Hct 38.9 35.6 - 45.5 % Plt 249 150 - 400 K/cumm MPV 10.5 9.1 - 12.3 fL RBC 4.26 3.90 - 5.20 M/cumm MCV 91.3 81.3 - 96.4 fL MCH 31.2 27.1 - 33.3 pg MCHC 34.2 32.3 - 35.7 g/dL RDW CV 13.2 11.1 - 14.9 % RDW SD 43.8 35.7 - 48.1 fL NRBC abs 0.00 0.00 - 0.01 K/cumm Urinalysis reflex to microscopic and culture Urine, clean voided Collection Time: 03/12/23 8:03 AM Specimen: Urine, clean voided Result Value Ref Range Color, ur Yellow Yellow Clarity, ur Clear Clear Specific gravity, ur 1.030 1.003 - 1.030 pH, urine 7.0 Protein, ur ql Trace Negative Glucose, ur ql Negative Negative Ketones, ur Negative Negative Bilirubin, ur Negative Negative Blood, ur Negative Negative Urobilinogen, ur <2.0 <2.0 mg/dL Nitrite, ur Negative Negative Leukocyte esterase, ur Negative Negative UA reflex comment Reflex conditions for microscopic UA and culture not met. Assessment and Plan: Menorrhagia with regular cycle interfering with daily activity. Will proceed with a dx hysteroscopy,D&C for tissue sampling as EMB was not done as surgery time was moved up and Novasure endometrial ablation. I have discussed nature of procedure and recovery. Risks, benefits and alternatives discussed including risks of bleeding, infection, anesthesia and injury. Expected outcomes discussed with failure rate, possible early menopause and possible need for hysterectomy if unsuccessful. Possible need for hysterectomy if abnormal pathology on D&C discussed. Patient wishes to proceed. Tony Washington MD 03/10/2023 documented in this encounter Miscellaneous Notes * Result Encounter Note - Tony Washington MD - 03/12/2023 11:15 AM CDT I discussed result with patient. * Perioperative Nursing Note - Dannielle Vasques RN - 03/12/2023 9:51 AM CDT No one in patient waiting at this time. * Op Note - Tony Washington MD - 03/12/2023 9:16 AM CDT Operative Note Preop Dx: Menorrhagia interfering with daily activity. Hx of infertility. Post op Dx: Same Procedure: Diagnostic hysteroscopy and Novasure endometrial ablation. Dilation and curettage. Anesthesia: General EBL: Minimal Findings: 1. Normal uterine cavity. 2. Good ablation to entire cavity and upper cervix postop Specimens: Endometrial curettings Abx: Mefoxin 2 gm IV preop Drains: None Counts: Correct Compl.: None Condition: To RR stable. Indications for Procedure: Joshua R Pashea is a 53 y.o. year old female who presents for NovaSure endometrial ablation. Patient has menorrhagia interfering with daily activity. See history andphysical. Operative Technique: After the benefits and risks were discussed, and informed consent was obtained, the patient was taken to the operating room and under successful general anesthesia was prepped and draped in the usual sterile manner for vaginal surgery. SCDs were placed on the patient's legs, anin and out catheter was performed; Mefoxin 2 gm was given IV, and a time out was performed. A speculum was placed in the vagina, and the anterior cervical lip was grasped with a tenaculum. The cervix was dilated with Hegar dilators. Cervical length was judged to be 3 cm. Hysteroscopy was performed. Both tubal ostia were visualized. There were no intrauterine lesions. Pictures were taken. Dilation and curettage was next performed. All rogers of the endometrial cavity were well curetted. A minimal amount of tissue was obtained, and this was sent to pathology. The uterus sounded to 8.5 cm. The NovaSure endometrial ablation was next performed according to procedure guidelines. Length of cavity used was 5.5 cm. Width was 4.4 cm. Hysteroscopy was performed after ablation and a good cauterization to the entire endometrial cavity and upper cervix was noted. Burn time was 55 seconds. Pictures were taken. All instruments were removed and hemostasis was assured. The patient was transferred to the recovery room in good condition. She tolerated the procedure well. * Pre-Procedure Instructions - Ramya Ortiz RN - 03/10/2023 1:37 PM CDT We are pleased that you and your doctor have chosen [facility] for your surgery. We hope that the following information will help make your visit a pleasant one. Surgery Date: 03/12/2023 Before your surgery: Notify your doctor of ANY change in your health such as a cold, sore throat, fever, any infection or a change in the problem for which you are having your surgery. Follow any instructions given to you by your doctor or surgeon. Check with your doctor if you need to STOP taking: Aspirin (ordered by your doctor) Plavix Coumadin One week before surgery STOP taking: All herbal supplements Aspirin (not ordered by your doctor) Aleve, Advil, Motrin, Ibuprofen, or other similar medications (Tylenol is okay). 24 hours before your surgery: No smoking or alcoholic drinks. Stop taking your: Metformin/Glucophage. Night before your surgery: Do not eat or drink anything after midnight. Take only half of your normal PM Insulin dose. Follow surgeon's instructions for anti-bacterial shower night before and morning of surgery. Day of surgery: Do not swallow any water when you brush your teeth. ONLY take these pills with a tiny sip of water. Pre-Surgery Instructions: Medication Instructions albuterol HFA (PROVENTIL HFA,VENTOLIN HFA,PROAIR HFA) 90 mcg/actuation inhaler Take morning of surgery busPIRone (BUSPAR) 10 mg tablet Stop taking 1 days prior to surgery carisoprodoL (SOMA) 350 mg tablet Stop taking 1 days prior to surgery ferrous sulfate 325 mg (65 mg of elemental iron) tablet Stop taking 1 week prior to surgery magnesium phosphate, bulk, powder Stop taking 1 week prior to surgery methylphenidate ER (CONCERTA) 27 mg CR tablet Stop taking 1 days prior to surgery multivitamin (MULTIPLE VITAMINS) tablet tablet Stop taking 1 week prior to surgery oxyCODONE-acetaminophen (PERCOCET) 5-325 mg per tablet Stop taking 1 days prior to surgery trazodone HCl (TRAZODONE ORAL) Stop taking 1 days prior to surgery Use no make-up, nail ukrainian, lotions, oils or powders on your skin. Wear comfortable clothes that will not be tight in the area of your surgery. Leave all valuables and jewelry (including all body piercing jewelry) at home. Please bring your a photo ID and insurance cards with you. After your Outpatient Surgery: You must have a responsible adult to drive you home, you will not be allowed to drive or take a cabhome. We recommend you have someone stay with you for 24 hours after your surgery. What to bring if you are spending the night with us: Bring toiletry items such as: robe, slippers, toothbrush, toothpaste, brush or comb. Bring contact lens, hearing aids, glass cases and denture container if you use any of these items. The hospital will provide you with a gown. Questions or concerns: If you have any questions or concerns regarding your procedure, contact your surgeon as soon as possible. If you have questions regarding your Pre-Admission Testing, please call us. We can be reached at the number posted at the top of the page. documented in this encounter Plan of Treatment Not on file documented as of this encounter Procedures Procedure Name Priority Date/Time Associated Diagnosis Comments SURGICAL PATHOLOGY Routine 03/12/2023 10 :52 AM CDT Menorrhagia with regular cycle POCT HCG, URINE Routine 03/12/2023 8:44 AM CDT ABLATION UTERINE HYSTEROSCOPY - NOVASURE 03/12/2023 8:36 AM CDT Menorrhagia with regular cycle EGFR STAT 03/12/2023 8:03 AM CDT THYROID FUNCTION CASCADE STAT 03/12/2023 8:03 AM CDT URINALYSIS AND REFLEX TO MICROSCOPIC AND CULTURE STAT 03/12/2023 8:03 AM CDT VITAMIN D 25 HYDROXY STAT 03/12/2023 8:03 AM CDT INSULIN, TOTAL STAT 03/12/2023 8:03 AM CDT DHEA-SULFATE STAT 03/12/2023 8:03 AM CDT CBC WITHOUT DIFFERENTIAL STAT 03/12/2023 8:03 AM CDT TESTOSTERONE, TOTAL AND FREE, SERUM STAT 03/12/2023 8:03 AM CDT CRP (ACUTE PHASE) STAT 03/12/2023 8:0 3 AM CDT HEMOGLOBIN A1C STAT 03/12/2023 8:03 AM CDT CORTISOL STAT 03/12/2023 8:03 AM CDT LIPID PANEL STAT 03/12/2023 8:03 AM CDT COMPREHENSIVE METABOLIC PANEL STAT 03/12/2023 8:03 AM CDT documented in this encounter Results * Surgical pathology (03/12/2023 10:52 AM CDT) Tissue (Endometrial biopsy) 03/12/2023 9:29 AM CDT Narrative PATHOLOGY [facility] - 03/13/2023 10:57 AM CDT EPIC results best viewed via link to PDF [facility] Department of Pathology [address] [place] [address] Note to Patients: This report may contain a detailed description of human tissue sent by a health care provider to the laboratory for pathologic evaluation. The content of this report is essential for diagnosis and may provide important critical findings. This information may be unfamiliar to patients to review without a medical professional present. It is advised that the patient review this report in the presence of a health care provider who can answer questions and explain the details. Final Report Patient Name: ??ASHOK RAMIREZLEORA Hill Address: ??[address] [place] [address], ??[place], [place] ??[address]- Gender: ??F : ??1970 (Age: 53) Service: ??Surgery Location: ??[facility] Hospital #: ??[id number] Patient Type: ??[facility] EP OP in bed Accession # ?[id number] Taken: ??03/12/2023 Received: ??03/12/2023 Accessioned: ??03/12/2023 Reported: ??03/13/2023 Physician(s):Tony Washington M.D. Diagnosis: Endometrium, curettings: ? - Fragments of benign secretory endometrium. ? - Negative for complex atypical hyperplasia and malignancy. Edward Escoto M.D. Report Electronically Reviewed and Signed Out By ??Edward Escoto M.D. ??03/13/2023 10:57:46 Specimen(s) Received: A: Endometrial curettings Microscopic Description: Sections show fragments of benign secretory endometrium showing no evidence of complex atypical hyperplasia or malignancy. Clinical History: Menorrhagia with regular cycle. ??Ablation uterine hysteroscopy - Novasure, dilation and curettage. Gross Description: The specimen is submitted in a single formalin filled container labeled with JOSHUA PASHEA and endometrial curettings . ??It is approximate 2 cc aggregate of hemorrhagic mucosal tissue fragments and blood. ??All in one cassette. Klaudia Abel R.N., P.A./Chema Navarro M.D. REPORT IMAGES AND SCANNED DOCUMENTS, IF INCLUDED, ONLY VIEWABLE IN PDF VERSION OF REPORT The performance characteristics of some immunohistochemical stains, fluorescence in-situ hybridization tests and immunophenotyping by flow cytometry cited in this report (if any) were determined by the Surgical Pathology Department at [facility] as part of an ongoing supplier quality program and in compliance with federally mandated regulations drawn from the Clinical Laboratory Improvement Act of 1988 (CLIA '88). ??Some of these tests rely on the use of analyte specific reagents and are subject to specific labeling requirements by the US Food and Drug Administration. ??Such diagnostic tests may only be performed in a facility that is certified by the Department of Health and Human Services as a high complexity laboratory under CLIA '88. The FDA has determined that such clearance or approval is not necessary. ??This test is used for clinical purposes. ??It should not be regarded as investigational or for research. ??Nevertheless, federal rules concerning the medical use of analyte specific reagents require that the following disclaimer be attached to the report: This test was developed and its performance characteristics determined by the Surgical Pathology Department [facility]. ??It has not been cleared or approved by the U. S. Food and Drug Administration. Note for decalcified specimens: This assay has not been validated on decalcified tissues. Results should be interpreted with caution given the possibility of false negativity on decalcified specimens us Tony Washington MD LAB PATHOLOGY ORDERABLES F inal Result PATHOLOGY [facility] [address] [place] [address] * POCT hCG, urine (03/12/2023 8:44 AM CDT) HCG, ur, POC Negative Lot Number [id number] QC Backgroud Clear Acceptable QC Control Line Acceptable Urine 03/12/2023 8:44 AM CDT us Tony Washington MD POINT OF CARE TEST ORDERAB LES Final Result * eGFR (03/12/2023 8:03 AM CDT) Pathologist [facility] eGFR 80 mL/min/1. 73 m2 [facility] ([place]) Comment: Interpretive Data Reference Interval Normal ?>/= [...] interpretive data was last reviewed 2021. Blood 03/12/2023 8:03 AM CDT 03/12/2023 8:11 AM CDT us Tony Washington MD LAB BLOOD ORDERABLES Final Result [facility] ([place]) 1 [facility] Department [place] [address] * Urinalysis reflex to microscopic and culture Urine, clean voided (03/12/2023 8:03 AM CDT) Color, ur Yellow Yellow [facility] ([place]) Clarity, ur Clear Clear [facility] ([place]) Specific gravity, ur 1.030 1.003 - 1.030 [facility] ([place]) pH, urine 7.0 [facility] ([place]) Protein, ur ql Trace Negative [facility] ([place]) Glucose, ur ql Negative Negative [facility] ([place]) Ketones, ur Negative Negative [facility] ([place]) Bilirubin, ur Negative Negative [facility] ([place]) Blood, ur Negative Negative [facility] ([place]) Urobilinogen, ur <2.0 <2.0 mg/dL [facility] ([place]) Nitrite, ur Negative Negative [facility] ([place]) Leukocyte esterase, ur Negative Negative [facility] ([place]) UA reflex comment Reflex conditions for microscopic UA and culture not met. [facility] ([place]) Urine, clean voided 03/12/2023 8:03 AM CDT 03/12/2023 8:11 AM CDT Narrative [facility] ([place]) - 03/12/2023 8:24 AM CDT ?? Urine pH is affected by diet, medications, systemic acid-base disturbances, and renal tubular function. ??pH may affect urinary stone formation. ??For example, urine pH below 6.0 may help reduce the tendency for calcium phosphate stones and pH greater than 6.0 may reduce the tendency for uric acid stone formation. Source: [employer]. Last revised 11-27-2017 us Tony Washnigton MD LAB MICROBIOLOGY - GENERAL ORDERABLES Final Result [facility] ([place]) 1 [facility] Department [place] [address] * Vitamin D 25 hydroxy (03/12/2023 8:03 AM CDT) Pathologist [facility] Vitamin D 25-OH 32 30 - 80 ng/mL [facility] ([place]) Blood 03/12/2023 8:03 AM CDT 03/12/2023 8:22 AM CDT Tony Washington MD LAB BLOOD ORDERABLES Final Result [facility] ([place]) 1 [facility] [place] [address] * TSH reflex to free T4 (03/12/2023 8:03 AM CDT) TSH 1.57 0.30 - 4.20 mcIUnit/mL [facility] ([place]) Blood 03/12/2023 8:03 AM CDT 03/12/2023 8:11 AM CDT Tony Washington MD LAB BLOOD ORDERABLES Final Result Performing Organization Address City/[facility]/ZIP Co de Phone Number [facility] ([place]) 1 [facility] [place] [address] * Insulin, total (03/12/2023 8:03 AM CDT) Pathologist [facility] Insulin 7.5 2.6 - 25.0 mcIUnit/mL [facility] ([place]) Comment:Testing performed by : [facility], [address], [place]., [address] Blood 03/12/2023 8:03 AM CDT 03/12/2023 10:26 AM CDT Tony Washington MD LAB BLOOD ORDERABLES Final Result [facility] ([place]) 1 [facility] [place] [address] * Cortisol (03/12/2023 8:03 AM CDT) Cortisol 9.9 4.8 - 19.5 mcg/dl DARIUS GARCIA ([place]) Comment: Interpretive Data Normal Range: ??4.8 - 19.5 mcg/dL; ??Evening: ??Half of morning value. ?? This analyte undergoes marked diurnal variation. ??Ranges indicated apply to morning specimens. ?? Current interpretive data was last revised 2018. Testing performed by: [facility], [address] [place] [address]., [id number] Blood 03/12/2023 8:03 AM CDT 03/12/2023 9:09 AM CDT us Tony Washington MD LAB BLOOD ORDERABLES Final Result DARIUS GARCIA ([place]) 1 [facility] [place] [address] * Lipid panel (03/12/2023 8:03 AM CDT) Cholesterol 188 30 - 199 mg/dL DARIUS GARCIA ([place]) Comment: Interpretive Data Ages < or = 19 years ??Acceptable: ? <170 mg/dL ??Borderline high: ??170-199 mg/dL ??High: ? >or= 200 mg/dL Ages > or = 20 years ??Desirable: ?<200 mg/dL ??Borderline high: ??200-239 mg/dL ??High: ? >or= 240 mg/dL Literature References: 1. Expert Panel on Integrated Guidelines for Cardiovascular Health and Risk Reduction in Children and Adolescents. Pediatrics 2011;128:S213 2. NCEP Expert Panel. Circulation 2004;110:227 Current Interpretive Data was last revised on 2018. Triglycerides 107 <=149 mg/dL DARIUS GARCIA ([place]) Comment: Interpretive Data Ages < or = 9 years ??Acceptable: ? <75 mg/dL ??Borderline high: ??75-99 mg/dL ??High: ? >or= 100 mg/dL Ages 10 to 20 years ??Acceptable: ? <90 mg/dL ??Borderline high: ??90-129 mg/dL ??High: ? >or= 130 mg/dL Ages > or = 20 years ??Desirable: ?<150 mg/dL ??Borderline high: ??150-199 mg/dL ??High: ? 200-499 mg/dL ?Very high: ?? >or= 499 mg/dL Literature References: 1. Expert Panel on Integrated Guidelines for Cardiovascular Health and Risk Reduction in Children and Adolescents. Pediatrics 2011;128:S213 2. NCEP Expert Panel. Circulation 2004;110:227 Current Interpretive Data was last revised on 2018. HDL 63 >=40 mg/dL DARIUS RODRIGUEZ) Comment: Interpretive Data Ages < or = 19 years ??Acceptable: ? >45 mg/dL ??Borderline low: ?? 40-45 mg/dL ??Low: ? <40 mg/dL Ages > or = 20 years ??Desirable: ?>or= 60 mg/dL ??Low: ? <40 mg/dL Literature References: 1. Expert Panel on Integrated Guidelines for Cardiovascular Health and Risk Reduction in Children and Adolescents. Pediatrics 2011;128:S213 2. NCEP Expert Panel. Circulation 2004;110:227 Current Interpretive Data was last revised on 2018. LDL, calculated 104 <=129 mg/dL DARIUS GARCIA ([place]) Comment: Interpretive Data Ages < or = 19 years ??Acceptable: ? <110 mg/dL ??Borderline high: ??110-129 mg/dL ??High: ?>or= 130 mg/dL Ages > or = 20 years ??Optimal: ? <100 mg/dL ??Near optimal: ?100-129 mg/dL ??Borderline high: ?? 130-159 mg/dL ??High: ?>160 mg/dL Literature References: 1. Expert Panel on Integrated Guidelines for Cardiovascular Health and Risk Reduction in Children and Adolescents. Pediatrics 2011;128:S213 2. NCEP Expert Panel. Circulation 2004;110:227 Current Interpretive Data was last revised on 2018. Non-HDL Cholesterol 125 mg/dL [facility] ([place]) Comment: Interpretive Data Ages < or = 19 years ??Acceptable: ?<120 mg/dL ??Borderline high: ??120-144 mg/dL ??High: ?>145 mg/dL Ages > or = 20 years ??When triglycerides are >200 mg/dL, Non-HDL cholesterol is a secondary target of ? therapy with treatment goals that are 30 mg/dL greater than the LDL cholesterol target. ? Literature References: 1. Expert Panel on Integrated Guidelines for Cardiovascular Health and Risk Reduction in Children and Adolescents. Pediatrics 2011;128:S213 2. NCEP Expert Panel. Circulation 2004;110:227 Current Interpretive Data was last revised on 2018. Chol/HDL ratio 3 [facility] ([place]) Blood 03/12/2023 8:03 AM CDT 03/12/2023 8:11 AM CDT Tony Washington MD LAB BLOOD ORDERABLES Final Result [facility] ([place]) 1 [facility] Department of Laboratories [place], [place] [id number] * CBC without differential (03/12/2023 8:03 AM CDT) WBC 6.5 3.8 - 9.9 K/cumm [facility] ([place]) Hgb 13.3 11.9 - 15.5 g/dL [facility] ([place]) Hct 38.9 35.6 - 45.5 % [facility] ([place]) Plt 249 150 - 400 K/cumm [facility] ([place]) MPV 10.5 9.1 - 12.3 fL [facility] ([place]) RBC 4.26 3.90 - 5.20 M/cumm [facility] ([place]) MCV 91.3 81.3 - 96.4 fL [facility] ([place]) MCH 31.2 27.1 - 33.3 pg [facility] ([place]) MCHC 34.2 32.3 - 35.7 g/dL [facility] ([place]) RDW CV 13.2 11.1 - 14.9 % [facility] RDW SD 43.8 35.7 - 48.1 fL [facility] ([place] NRBC abs 0.00 0.00 - 0.01 K/cumm [facility] ([place]) Blood 03/12/2023 8:03 AM CDT 03/12/2023 8:11 AM CDT us Tony Washington MD LAB BLOOD ORDERABLES Final Result [facility] ([place]) 1 [facility] Department [place] [address] * Comprehensive metabolic panel (03/12/2023 8:03 AM CDT) Sodium 140 135 - 145 mmol/L [facility] ([place] Potassium, pl 4.1 3.3 - 4.9 mmol/L [facility] ([place]) Chloride 105 97 - 110 mmol/L [facility] ([place] CO2 24 22 - 32 mmol/L [facility] ([place]) Anion gap 11 2 - 15 mmol/L [facility] ([place] BUN 13 8 - 25 mg/dL [facility] ([place]) Creatinine 0.87 0.60 - 1.10 mg/dL [facility] ([place]) Glucose 96 70 - 199 mg/dL [facility] ([place]) Comment: Interpretive Data Fasting glucose [...] classification and Diagnosis of Diabetes Diabetes Care 202; 46: S19-S40. Current interpretive data was last revised 2022. Calcium 9.2 8.5 - 10.3 mg/dL [facility] ([place]) Bilirubin, total 0.8 0.1 - 1.2 mg/dL [facility] ([place]) Protein, pl 6.9 6.5 - 8.5 g/dL [facility] ([place]) Albumin 4.3 3.5 - 5.0 g/dL [facility] ([place]) Alk phos 95 40 - 130 Units/L [facility] ([place]) ALT 16 7 - 45 Units/L [facility] ([place]) AST 17 10 - 45 Units/L [facility] ([place]) Blood 03/12/2023 8:03 AM CDT 03/12/2023 8:11 AM CDT Tony Washington MD LAB BLOOD ORDERABLES Final Result Performing Organization Address City/[facility]/ZIP Co de Phone Number [facility] ([place]) 1 [facility] [employer] [place] [address] * CRP (acute phase) (03/12/2023 8:03 AM CDT) Pathologist [facility] CRP <3.0 <=10.0 mg/L [facility] ([place]) Blood 03/12/2023 8:03 AM CDT 03/12/2023 8:11 AM CDT Tony Washington MD LAB BLOOD ORDERABLES Final Result [facility] ([place]) 1 [facility] [place] [address] * Hemoglobin A1c (03/12/2023 8:03 AM CDT) Hgb A1C 5.0 4.0 - 5.6 % [facility] ([place]) Estimated Average Glucose 97 mg/dL [facility] ([place]) Comment: The ADA recommends reporting an estimated Average Glucose (eAG) with all Hemoglobin A1c results using the equation derived from a study of 507 normal and diabetic adults. ??Minority populations were underrepresented and children were not included. ?? (Diabetes Care 31:1668-0739, 2008). ??The eAG is not equivalent to a fasting glucose. Blood 03/12/2023 8:03 AM CDT 03/12/2023 8:11 AM CDT Tony Washington MD LAB BLOOD ORDERABLES Final Result Performing Organization Address City/[facility] Co de Phone Number [facility] [address] [place] [phone] * DHEA-sulfate (03/12/2023 8:03 AM CDT) DHEA-S 46.3 35.4 - 256.0 mcg/dL [facility] ([place]) Comment:Testing performed by : [facility], [address] [place] [address]., [id number] Blood 03/12/2023 8:03 AM CDT 03/12/2023 10:26 AM CDT Tony Washington MD LAB BLOOD ORDERABLES Final Result Performing Organization Address [facility] Co de Phone Number [facility] [address] [place] [address] [place] [address] * Testosterone, Total and Free, Serum (03/12/2023 8:03 AM CDT) Testosterone 13 8 - 60 ng/dL [facility] ([place]) Comment: ADDITIONAL INFORMATION Testing performed by Liquid Chromatography-Tandem Mass Spectrometry (LC-MS/MS). This test was developed and its performance characteristics determined by [facility] in a manner consistent with CLIA requirements. This test has not been cleared or approved by the U.S. Food and Drug Administration. Test Performed by: [facility] [address] [place] [id number] Rn Postpartum: Alfredo Lua M.D. Ph.D.; CLIA# [id number] Testosterone, free 0.41 <0.13 - 0.92 ng/dL DARIUS GARCIA ([place]) Comment: ADDITIONAL INFORMATION This test was developed and its performance characteristics determined by [facility] in a manner consistent with CLIA requirements. This test has not been cleared or approved by the U.S. Food and Drug Administration. Blood 03/12/2023 8:03 AM CDT 03/12/2023 8:11 AM CDT us Tony Washington MD LAB BLOOD ORDERABLES Final Result DARIUS GARCIA ([place]) 1 [facility] Department [place] [address] documented in this encounter Visit Diagnoses Diagnosis Menorrhagia with regular cycle- Primary Menorrhagia with regular cycle documented in this encounter Admitting Diagnoses Diagnosis Menorrhagia with regular cycle Excessive or frequent menstruation documented in this encounter Administered Medications Inactive Administered Medications - up to 3 most recent administrations Medication Order MAR Action Action Date Dose Rate Site acetaminophen (TYLENOL) tablet 1,000 mg 1,000 mg, oral, Once, On Fri03/12/23 at 0815, For 1 dose, Pre-Op Given 03/12/2023 8:08 AM CDT 1,000 mg ibuprofen (ADVIL,MOTRIN) tablet 600 mg 600 mg, oral, Once, On Fri03/12/23 at 1115, For 1 dose Given 03/12/2023 10:34 AM CDT 600 mg Lactated Ringer's (LR) infusion 30 mL/hr, intravenous, Continuous, Starting on Fri03/12/23 at 0815, Pre-Op, Rate/Dose Change 03/12/2023 9:03 AM CDT 30 mL/hr Rate/Dose Verify 03/12/2023 8:52 AM CDT 30 mL/h r New Bag 03/12/2023 8:06 AM CDT 30 mL/hr 30 mL/hr scopolamine patch 72 hour 1 patch 1 patch, transdermal, Administer over 72 Hours, Once, On Fri03/12/23 at 0815, For 1 dose, Pre-Op, Indications: Prevention of Post-Operative Nausea and VomitingIndications:Pre vention of Post-Operative Nausea and Vomiting Medication Applied 03/12/2023 8:08 AM CDT 1 patch Behind Right Ear sodium chloride 0.9% irrigation As needed, Starting on Fri03/12/23 at 0911, Intra-Op Given 03/12/2023 9:11 AM CDT 3,000 mL Surgical Site sodium chloride 0.9% irrigation As needed, Starting on Fri03/12/23 at 0911, Intra-Op Given 03/12/2023 9:11 AM CDT 1,000 mL Surgical Site documented in this encounter Discontinued Medications Medication Sig Discontinue Reason Start Date End Da te biotin (APPEAREX) 2,500 mcg tablet 2,500 mcg. Therapy completed 10/26/2010 03/10/2023 escitalopram (LEXAPRO) 10 mg tablet Take 10 mg by mouth daily Therapy completed 03/10/2023 trazodone HCl (TRAZODONE ORAL) Take by mouth Duplicate order 03/10/2023 documented as of this encounter Historical Medications * This list may reflect changes made after this encounter. traZODone (DESYREL) 50 mg tabletIndications :sleep Take 1 tablet (50 mg total) by mouth nightly 02/03/2023 added in this encounter Active and Recently Administered Medications Times are shown in CDT. Scheduled Medication Order 03/10/2023 03/11/2023 03/12/2023 acetaminophen (TYLENOL) tablet 1,000 mg (COMPLETED) 1,000 mg, oral, Once, On Fri03/12/23 at 0815, For 1 dose, Pre-Op 0808 (Given - Provid er: Dominique Way RN) cefOXitin (MEFOXITIN) 1,000 mg/10 mL in sterile water (premix) 2,000 mg (COMPLETED) 2,000 mg, intravenous, at 400 mL/hr, Administer over 3 Minutes, Once, On Fri03/12/23 at 0915, For 1 dose, Pre-Op, Indications: Prophylaxis, Surgical 0901 (Given - Provid er: [employer] CRNA) cefOXitin (MEFOXITIN) 1,000 mg/10 mL in sterile water (premix) 2,000 mg 2,000 mg, intravenous, at 400 mL/hr, Administer over 3 Minutes, Once, On Fri03/12/23 at 1115, For 1 dose, Pre-Op, Indications: Prophylaxis, Surgical 1115 (Due) ibuprofen (ADVIL,MOTRIN) tablet 600 mg (COMPLETED) 600 mg, oral, Once, On Fri03/12/23 at 1115, For 1 dose 1034 (Given - Provid er: Dominique Way RN) scopolamine patch 72 hour 1 patch 1 patch, transdermal, Administer over 72 Hours, Once, On Fri03/12/23 at 0815, For 1 dose, Pre-Op, Indications: Prevention of Post-Operative Nausea and Vomiting 0808 (Medication Major lied - Provider: Dominique Way RN)1115 (Due: Medication Removed - Provider: Automatic Discharge Provider - Comment: Time automatically adjusted from order being discontinued) Continuous Medication Order 03/10/2023 03/11/2023 03/12/2023 Lactated Ringer's (LR) infusion 30 mL/hr, intravenous, Continuous, Starting on Fri03/12/23 at 0815, Pre-Op, 0806 (New Bag - Prov ider: Dominique Way RN)0852 (Rate/Dose Verify - Provider: [employer] Goldman CRNA)0903 (Rate/Dose Change - Provider: [employer] Goldman CRNA)1515 (Due: Stopped) PRN Medication Order 03/10/2023 03/11/2023 03/12/2023 HYDROmorphone (PF) (DILAUDID) injection 0.2 mg 0.2 mg, intravenous, Administer over 2 Minutes, Every 10 min PRN, 1st line for pain, Starting on Fri03/12/23 at 0947, Pre-Op, Switch to 2nd line analgesic order if pain is uncontrolled or increasing after 2 doses. Notify Anesthesiologist if total PACU dose reaches 2 mg and pain score 5/10 or more., Indications: Pain HYDROmorphone (PF) (DILAUDID) injection 0.4 mg 0.4 mg, intravenous, Administer over 2 Minutes, Every 10 min PRN, 2nd line for pain, Starting on Fri03/12/23 at 0947, Pre-Op, May administer 10 mintes after 2nd dose of 1st line analgesic agent for uncontrolled or increasing pain. Revert to 1st line dose if POSS of 3. Notify Anesthesiologist if total PACU dose reaches 2 mg and pain score 5/10 or more., Indications: Pain naloxone (NARCAN) 0.4 mg/mL injection 0.04-0.4 mg 0.04-0.4 mg, intravenous, Once as needed, other, excessive sedation/respiratory depression, Starting on Fri03/12/23 at 0947, For 1 dose, Pre-Op, Dilute 0.4 mg with 9 mL NS (final concentration 0.04 mg/mL). For respiratory depression (respiratory rate less than 6), administer 0.4 mg IVP over 30 seconds. For excessive sedation administer 0.04 mg (1 mL) every 1 minute until desired level of alertness. For IV, administer over 30 seconds., Indications: Opioid Toxicity ondansetron (ZOFRAN) injection 4 mg 4 mg, intravenous, Administer over 2 Minutes, Once as needed, nausea, vomiting, Starting on Fri03/12/23 at 0947, For 1 dose, Pre-Op, Proceed to prochlorperazine if ondansetron has been given within the last 6 hours. prochlorperazine (COMPAZINE) injection 5 mg 5 mg, intravenous, Administer over 2 Minutes, Once as needed, nausea, vomiting, Starting on Fri03/12/23 at 0947, For 1 dose, Pre-Op, If nausea/vomiting not relieved by ondansetron within 30 minutes or if ondansetron has been given within the last 6 hours. sodium chloride 0.9% irrigation (CANCELED) As needed, Starting on Fri03/12/23 at 0911, Intra-Op 0911 (Given - Provid er: Tony Washington MD - Comment: for aquilex) sodium chloride 0.9% irrigation (CANCELED) As needed, Starting on Fri03/12/23 at 0911, Intra-Op 0911 (Given - Provid er: Tony Washington MD - Comment: to sterile field) documented in this encounter Orders Medications Ordered That Raul ht Not Have Been Administered Count Last Ordered Date First Ordered Date Carrier Fluids for Secondary Infusion - 0.9% Sodium Chloride 1 03/12/2023 cefOXitin (MEFOXITIN) 1,000 mg/10 mL in sterile water (premix) 2,000 mg 2 03/12/2023 HYDROmorphone (PF) (DILAUDID ) injection 0.2 mg 1 03/12/2023 HYDROmorphone (PF) (DILAUDID ) injection 0.4 mg 1 03/12/2023 naloxone (NARCAN) 0.4 mg/mL injection 0.04-0.4 mg 1 03/12/2023 ondansetron (ZOFRAN) injection 4 mg 1 03/12 prochlorperazine (COMPAZINE) injection 5 mg 1 03/12/2023 sodium chloride 0.9% flush 0.5-20 mL 1 02/16 Diet Count Last Ordered Date First Orde red Date ADULT DISCHARGE DIET 2 03/12/2023 Nursing Count Last Ordered Date First Orde red Date DISCHARGE ACTIVITY 3 03/12/2023 DISCHARGE CALL PROVIDER 3 03/12/2023 DISCHARGE DRESSING 2 03/12/2023 DISCHARGE INSTRUCTIONS 1 03/12/2023 FOLLOW UP WITH ESTABLISHED PROVIDER 2 03/12 Admission Count Last Ordered Date First Orde red Date INITIATE OUTPATIENT IN A BED 1 03/12/2023 Discharge Count Last Ordered Date First Orde red Date DISCHARGE PATIENT 1 03/12/2023 documented in this encounter Care Teams Sap Bobj Developer Relationship Specialty Start Date End Date Laureano Lantigua MD [address] [place] [address] PCP - General Internal Medicine 07/30/18 Tony Washington MD [address] [facility] [address] [place] [id number] Poultry Sexer Obstetrics and Gynecology 11/16/18 Anahy Rosales MD [address] [facility] [place] [id number] Referring Physician Psychiatry 11/16/18 Nathalia Rodas, PT Physical Therapist Physical Therapy 3/31/23 documented as of this encounter
--- OUTSIDE RECORDS SUMMARY | 2024-11-15 03:24 | XMS_ITS | Encounter Summary ---
Author Organization [facility] Address [address] [place] [address] Care Team Providers Care Compensation Vice President Name Role Phone Laureano Lantigua MD Primary Care Provider [phone] Tony Washington MD Unavailable [phone] Anahy Rosales MD Unavailable [phone] Nathalia Rodas PT Unavailable Unavailable Reason for Visit * Reason Comments PT Treatment * Consultation (Routine) - Closed Specialty Diagnoses / Procedures Referred By Contмаряи t Referred To Contact Physical Therapy Diagnoses Unilateral primary osteoarthritis, left hip Teddy Toussaint MD [address] [facility] [address] [place] [address] Phone: tel: fax: [address] [phone] Referral ID Status Reason Start Date Expiration Date V isits Requested Visits Authorized [id number] Closed Specialty Services Required 01/28/2023 02/27/2024 12 12 Encounter Details Date Type Department Care Team (Late st Contact Info) Description 03/25/2023 7:00 AM CDT Therapy [facility] [place] [address] Nathalia Rodas, PT Left hip pain (Primary Dx); Unilateral primary osteoarthritis, left hip; Primary osteoarthritis of left hip Social History Tobacco Use Types [...] on file Legal Sex Female 1:37 AM [employer]ITY [employer] OFFICER Gender Identity Female 10/03/2023 10:05 AM COMMUNITY RE[employer]MENT ACT OFFICER Sexual Orientation Straight 10/03/2023 10 :05 AM COMMUNITY RE[employer]MENT ACT OFFICER documented as of this encounter Progress Notes * Nathalia Rodas, PT - 03/25/2023 7:00 AM CDT PT Treatment 02/26/2023 Finesse Ramirez 1970 ICD-9-CM ICD-10-CM 1. Left hip pain 719.45 M25.552 2. Primary osteoarthritis of left hip 715.15 M16.12 3. Unilateral primary osteoarthritis, left hip 715.15 M16.12 Subjective: Pt c/o L hip pain 02/24 that is not consistently going down LE. Objective: See previous note Treatment Provided: Prone hip mob PA; lateral glides Supine Marching Supine BKFO with red TB Sit to Stand with cueing for glute contraction Supine nerve glide Clamshells with Red TB Bridge with red TB Bird Dog QPed fire hydrant Bladder log Not performed this date: Prone L/S CPA, sacral mob into ext STM paraspinals, L external rotators Prone passive hip IR/ER* Supine hip stretching Cat/cow Quad rock* QPed TA contraction* Education re: core and effect on pelvic floor Education re: bladder retraining (set alarm to pee every 4 hours minimum) Diaphragm breathing* Damon pose* Happy baby* Supine lumbar traction over yellow SB* Supine BKTC on yellow SB* Seated hip ER - red TB PPT HEP: Cat/cow, quad rock, TA recruitment with marching; [id number] Assessment: Finesse had discomfort wit hclamshells this date in posterior hip. Added PA hip mobiliations in pronewith pt report of strong anterior hip stretch. Goals STG 1:: Pt is IND with HEP. goal progressing LTG 1:: Pt will demonstrate improved TA stabilization to decrease low back pain. goal progressing LTG 2:: Pt will report decreased radicular symptoms into L LE. goal progressing - intermittent, no longer daily LTG 3:: Pt will navigate stairs with less pain. goal progressing LTG 4:: Pt will tolerate sitting in a chair for 1 hour with pain 2/10 upon standing. goal progressing - chair dependent Plan: Continue progressing along current POC to address core and hip strengthening. Time in: 701 Time out: 739 Nathalia Rodas PT, DPT, COMT documented in this encounter Plan of Treatment Not on file documented as of this encounter Visit Diagnoses Diagnosis Left hip pain- Primary Pain in joint, pelvic region and thigh Unilateral primary osteoarthritis, left hip Primary osteoarthritis of left hip documented in this encounter Care Teams Compensation Vice President Relationship Specialty Start Date End Date Laureano Lantigua MD [address] [place] [address] PCP - General Internal Medicine 07/30/18 Tony Washington MD [address] [place] [address] Infant Babysitter Obstetrics and Gynecology 11/16/18 Anahy Rosales MD [address] [place] [address] Referring Physician Psychiatry 11/16/18 Clark, Nathalia, PT Physical Therapist Physical Therapy 02/14/23 documented as of this encounter
--- OUTSIDE RECORDS SUMMARY | 2024-11-15 03:24 | XMS_ITS | Encounter Summary ---
Author Organization [facility] Healthcare Address [address] [place] [address] Care Team Providers Care Trim And Burr Operator Name Role Phone Laureano Lantigua MD Primary Care Provider [phone] Tony Washington MD Unavailable [phone] Anahy Rosales MD Unavailable [phone] Nathalia Rodas PT Unavailable Unavailable Reason for Visit * Reason Comments PT Treatment * Consultation (Routine) - Closed Specialty Diagnoses / Procedures Referred By Contмария t Referred To Contact Physical Therapy Diagnoses Unilateral primary osteoarthritis, left hip Teddy Toussaint MD [address] [facility] [address] [place] [address] Phone: tel: fax: [address] [address] Referral ID Status Reason Start Date Expiration Date V isits Requested Visits Authorized [id number] Closed Specialty Services Required 01/28/2023 02/27/2024 12 12 Encounter Details Date Type Department Care Team (Late st Contact Info) Description 03/31/2023 7:00 AM CDT Therapy [facility] [place] [address] Nathalia Rodas, PT Left hip pain (Primary [...] on file Legal Sex Female 1:37 AM SOCIAL SERVICES DIRECTOR Gender Identity Female 10/03/2023 10:05 AM SOCIAL SERVICES DIRECTOR Sexual Orientation Straight 10/03/2023 10 :05 AM SOCIAL SERVICES DIRECTOR documented as of this encounter Progress Notes * Nathalia Rodas, PT - 03/31/2023 7:00 AM CDT PT Treatment 02/26/2023 Finesse Ramirez 1970 ICD-9-CM ICD-10-CM 1. Left hip pain 719.45 M25.552 2. Primary osteoarthritis of left hip 715.15 M16.12 3. Unilateral primary osteoarthritis, left hip 715.15 M16.12 Subjective: Pt c/o L hip pain with radicular pain to ankle this morning. She went shopping yesterday and the escalators were broken in the mall and had to navigate the stairs, which caused increased pain. Objective: See previous note Treatment Provided: Prone hip mob PA, PA with ER; lateral glides Supine hip stretching Sidelying lumbar rotation/gapping 1/2 kneel hip flexor stretch Supine Marching* Supine BKFO with red TB* Sit to Stand with cueing for glute contraction Supine nerve glide Clamshells with Red TB Bridge with red TB Bird Dog* QPed fire hydrant* Bladder log Not performed this date: Prone [...] rock, TA recruitment with marching; FPNFMFBQ Assessment: Emphasis of hip joint mobilizations and stretching today with pt report of improvement of symptoms by end of session. Discussed hip stretching in all directions to improve mobility due to improved symptoms with flexibility. Goals STG 1:: Pt is IND with [...] address core and hip strengthening. Time in: 0702 Time out: 0750 Nathalia Rodas PT, DPT, COMT documented in this encounter Plan of Treatment Not on file documented as of this encounter Visit Diagnoses Diagnosis Left hip pain- Primary Pain in joint, pelvic region and thigh Unilateral primary osteoarthritis, left hip Primary osteoarthritis of left hip documented in this encounter Care Teams Trim And Burr Operator Relationship Specialty Start Date End Date Laureano Lantigua MD [address] [place] [address] PCP - General Internal Medicine 07/30/18 Tony Washington MD [address] [facility] [address] [place] [address] Manager Simulation Obstetrics and Gynecology 11/16/18 Anahy Rosales MD [address] [facility] [address] [place] [address] Referring Physician Psychiatry 11/16/18 Nathalia Rodas, PT Physical Therapist Physical Therapy 02/14/23 documented as of this encounter
--- OUTSIDE RECORDS SUMMARY | 2024-11-15 03:24 | XMS_ITS | Encounter Summary ---
Author Organization [facility] Healthcare Address [address] [place] [address] Care Team Providers Care Aviation Mechanic Name Role Phone Laureano Lantigua MD Primary Care Provider [phone] Tony Washington MD Unavailable [phone] Anahy Rosales MD Unavailable [phone] Nathalia Rodas PT Unavailable Unavailable Reason for Visit * Reason Comments PT Treatment Encounter Details Date Type Department Care Team (Late st Contact Info) Description 03/10/2023 4:45 PM CDT Therapy [facility] [place] [address] Nathalia Rodas, PT Left hip pain (Primary [...] file Legal Sex Female 1:37 AM 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 Left hip pain 719.45 M25.552 2. Primary osteoarthritis of left hip 715.15 M16.12 3. Unilateral primary osteoarthritis, left hip 715.15 M16.12 Subjective: Patient reports increased pain 4.5/10 today. She noticed significant increase in incontinence with getting sick over the weekend. She feels her incontinence in general is fluctuating. Objective: See treatment provided Treatment Provided: Education re: core and effect on pelvic floor Education re: bladder retraining (set alarm to pee every 4 hours minimum) Diaphragm breathing Damon pose Happy baby Not performed this date: Prone L/S CPA, sacral mob into ext STM paraspinals, L external rotators Prone passive hip IR/ER* Supine hip stretching Cat/cow Quad rock* QPed TA contraction* Supine lumbar traction over yellow SB Supine BKTC on yellow SB Supine Marching Supine BKFO with red TB Seated hip ER - red TB Sit to Stand with cueing for glute contraction Supine nerve glide PPT Clamshells with Red TB Taping for superior patellar tracking Bladder log HEP: Cat/cow, quad rock, TA recruitment with marching; FPNFMFBQ Assessment: Performed seated hip ER with good form and improved muscle recruitment. Addressed glute contractionwith sit to stand which helped back/hip symptoms but knee was irritated .Quickly taped knee to promote superior patellar glide which eliminated knee pain in clinic. Plan: Continue progressing as tolerated. Progress core strengthening, hip abd & ER strengthening. Time in: 1644 Time out: 1731 Nathalia Rodas, PT, DPT, COMT documented in this encounter Plan of Treatment Not on file documented as of this encounter Visit Diagnoses Diagnosis Left hip pain- Primary Pain in joint, pelvic region and thigh Unilateral primary osteoarthritis, left hip Primary osteoarthritis of left hip documented in this encounter Care Teams Aviation Mechanic Relationship Specialty Start Date End Date Laureano Lantigua MD [address] [place] [address] PCP - General Internal Medicine 07/30/18 Tony Washington MD [address] [facility] [address] [place] [address] City Carrier Assistant Obstetrics and Gynecology 11/16/18 Anahy Rosales MD [address] [facility] [address] [place] [address] Referring Physician Psychiatry 11/16/18 Nathalia Rodas PT Physical Therapist Physical Therapy 02/14/23 documented as of this encounter
--- OUTSIDE RECORDS SUMMARY | 2024-11-15 03:24 | XMS_ITS | Encounter Summary ---
Author Organization [facility] Address [address] [place] [address] Phone Care Team Providers Care Field Artillery Operations Man Name Role Phone Laureano Lantigua MD Primary Care Provider [phone] Tony Washington MD Unavailable [phone] Anahy Rosales MD Unavailable [phone] Nathalia Rodas PT Unavailable Unavailable Reason for Referral * Procedure (Routine) - Closed Specialty Diagnoses / Procedures Referred By Contac t Referred To Contact Diagnoses Left hip pain Procedures Large Joint Injection: L hip joint Cecilia Conn MD [address] [facility] [address] [place] [address] Phone: tel: fax: [facility] (All Locations) Referral ID Status Reason Start Date Expiration Date Visits Re quested Visits Authorized [id number] Closed 09/11/2023 10/10/2024 1 1 * Diagnostic Imaging (Routine) - Closed Specialty Diagnoses / Procedures Referred By Contac t Referred To Contact Diagnoses Left hip pain Procedures XR Hip Left 2 or 3 Views W Pelvis Cecilia Conn MD [address] [place] [address] Phone: tel: fax: [facility] [place] [address] [facility] [address] [place] [address] Phone: tel: Referral ID Status Reason Start Date Expiration Date Visits Re quested Visits Authorized [id number] Closed 09/07/2023 10/06/2024 1 1 Reason for Visit * Reason Comments Pain Encounter Details Date Type Department Care Team (Late st Contact Info) Description 09/10/2023 10:00 AM CDT Office Visit [facility] Orthopaedic Surgery [address] [facility] [address] [place] [address] Cecilia Conn MD [address] [place] [address] Left hip pain (Primary Dx) Social History [...] on file Legal Sex Female 1:37 AM SAND CONTROL WORKER Gender Identity Female 10/03/2023 10:05 AM SAND CONTROL WORKER Sexual Orientation Straight 10/03/2023 10 :05 AM SAND CONTROL WORKER documented as of this encounter Last Filed Vital Signs Vital Sign Reading Time Taken Comments Blood Pressure - - Pulse - - Temperature - - Respiratory Rate - - Oxygen Saturation - - Inhaled Oxygen Concentration - - Weight 94.9 kg (209 lb 4.8 oz) 09/10/2023 11:13 AM CDT Height 183.5 cm (6' 0.25 ) 09/10/2023 11:13 AM C DT Body Mass Index 28.19 09/10/2023 11:13 AM CDT documented in this encounter Patient Instructions * Patient Instructions* Sue Zaman CMA - 09/10/2023 10:00 AM CDT Your injection included 5 cc???s Lidocaine (numbing medication). You may resume taking ANY [...] documented in this encounter Progress Notes * Roberto Murrieta MD - 09/10/2023 10:00 AM CDTAssociated Order(s): Large Joint Injection: L hip joint Post-Procedure Diagnose(s): Left hip pain Visit Summary: Diagnosis: left labral tear and Hip Osteoarthritis HISTORY OF PRESENT ILLNESS: Finesse Ramirez is a 53 y.o. female who I have had the pleasure to consult on today. I have enjoyed meeting her. 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 Finesse Ramirez left hip pain started approximately 1 year ago her horseback riding accident with some previous complaints. Presentation is on the anterior, inferior, lateral, and posterior left hip and groin area. The hip does wake Finesse Ramirez at night and does click and catch. Sitting is very uncorfortable for her. Finesse Ramirez does report suffering from lower back pain episodes. She has a longstanding history spinal pathology with prior fusion, however this pain is new and different in quality from her low back and radicular pain. Finesse Ramirez has participated in physical therapy and has tried other conservative measures including Hip Injections. She has not received sufficient symptomatic improvement. Finesse Ramirez understands that she has a hip and pelvis problem which should be researched and wishes to get a better understanding of her hip status, followed by an establishment of a treatment strategy, hoping she would be able to get back to her well being active life. History: Past medical history: She has a past medical history of Anxiety, Asthma, Cancer (CMS/HCC) ([facility]) (2020), Female infertility, Fibrocystic breast, GERD (gastroesophageal reflux disease), Hammer toe, OTHER MEDICAL, OTHER MEDICAL, OTHER MEDICAL, OTHER MEDICAL, Hypercholesterolemia, Hypertension, Motion sickness, and Retinal d etachment. She has no past medical history of Awareness under anesthesia, Delayed emergence from general anesthesia, Hard to intubate, Malignant hyperthermia, PONV (postoperative nausea and vomiting), Seizures ([facility]), or Stroke ([facility]). Relevant familial history: She family history includes Diabetes in an other family member; Heart attack in her cousin, father,and maternal grandfather; Heart disease in her father and another family member; Hyperlipidemia in her father; Hypertension in her maternal grandmother and mother; Prostate cancer in her maternal grandfather. Past surgical history: Past Surgical History: Procedure Laterality Date ANKLE SURGERY Left 2007 Ankle surgery CARDIAC CATHETERIZATION 2013 CARPAL TUNNEL RELEASE Bilateral Carpal tunnel release CHOLECYSTECTOMY 03/2018 COLONOSCOPY 03/27/2021 1st COMBINED HYSTEROSCOPY DIAGNOSTIC / D&C 03/12/2023 ELBOW SURGERY Left 11/07/2020 x2 ENDOMETRIAL ABLATION 03/12/2023 FOOT SURGERY Bilateral MOHS SURGERY 07/2021 Basil Cell OTHER SURGICAL HISTORY Left Rotator Cuff Repair, L. ankle surgery, back surgery x2 OTHER SURGICAL HISTORY samuel carpal tunnel repair, eye surgery, ankle and foot surger OTHER SURGICAL HISTORY retina re-attachment, multiple surgeries OTHER SURGICAL HISTORY Missed Ab: Suction D&C OTHER SURGICAL HISTORY 2008 Right ACL repair OTHER SURGICAL HISTORY 2003 : 1 hr labor ROTATOR CUFF REPAIR Left Rotator cuff repair SHOULDER SURGERY Left SLEEVE GASTROPLASTY Laparoscopic Gastric Sleeve SPINAL FUSION 2010 Spinal fusion L5-S1 I have reviewed, verified and agree with the past medical, surgical, family and social history. Current Medications: She has a current medication list which includes the following prescription(s): albuterol hfa (PROVENTIL HFA,VENTOLIN HFA,PROAIR HFA), buspirone (BUSPAR), carisoprodol (SOMA), estradiol (VIVELLE-DOT), ferrous sulfate, mag amino acid chelate (bulk), magnesium phosphate (bulk), methylphenidate er, methylphenidate hcl (RITALIN), oxycodone-acetaminophen (PERCOCET), progesterone (PROMETRIUM), trazodone (DESYREL), and UNABLE TO FIND. ALLERGIES: She is allergic to erythromycin, morphine, and vicodin [hydrocodone-acetaminophen]. Objective: Physical Examination: Finesse Ramirez height is 6' tall and weights 209 lbs.Body mass index is 28.19 kg/m??. Currently, she walks with a abnormal antalgic gait. Finesse Ramirez presents with no signs of jointlaxity.Finesse Ramirez is fit looking. Lower spine examination is positive for sciatic or femoral nerve irritation with positive SLR &femoral stretch tests. Range of motion of the spine is abnormal for flexion, extension, and rotations, with associated pain. Strength, Sensation and pulses are normal Ankles and knees exams are normal and no mal-alignment is evident. Hip ROM Right:Flexion 110/IR10/ER 40 Left: Qkmoipe623/IR10/ ER 40 FADIR:+++ CAM:+++ Exam after diagnostic injection and aspiration of clear synovial fluid with 100% improvement in groin pain Imaging: Radiology studies which I have personally reviewed, analyzed and measured are below: XR: AP of the hip and pelvis: Performed in a Good technique Osteoarthritis:mild MRI L hip reviewed in [employer]. Significant for left labral tear, very mild chondromalacia. Impression and plan: Finesse Ramirez is a 53 y.o. active female suffering from symptomatic left hip pain due to labral tear and Hip Osteoarthritis, causing significant disability to her and altering her sport and life activities. Physical examination, imaging, and her story correspond with the diagnosis mentioned above. I have explained the diagnosis and its significance to Finesse Ramirez and we have discussed the various possible treatment options and their implications with her. These include Physical Therapy and Hip Injections. Patient has failed non operative treatments and we have discussed surgical procedures. Surgically a Hip Arthroscopy would be the best option. I explained the surgical aspects of the surgery, discuss complications that may happen including persistent pain, infection, thrombosis and neurovascular injury. We also discussed post-operative modalities that the patient will need to follow. Finesse Ramirez is happy with this plan. I have also supplied her with handouts, outlining the expected surgical treatment and rehab involved. I wish Finesse Ramirez all the best, Large Joint Injection: L hip joint Performed by: Cecilia Conn MD Authorized by: Cecilia Conn MD Large Joint Injection/Aspiration: Consent Given by: Patient Site marked: the procedure site was marked Timeout: prior to procedure the correct patient, procedure, and site was verified Verbal consent obtained: Yes Supporting Documentation: Indications: Diagnostic and pain Procedure Details: Location: Hip Site: L hip joint Prep: patient was prepped and draped in usual sterile fashion Needle Size: 18 G Ultrasound guided: No Fluroscopic guidance: No Medications: 5 mL lidocaine 10 mg/mL (1 %) Patient tolerance: Patient tolerated the procedure well with no immediate complications Roberto Murrieta MD Department of Orthopaedic Surgery PGY5 [facility] Cosigned by Cecilia Conn MD at 11/20/2023 11:57 AM SAND CONTROL WORKER CONTROL WORKER Associated attestation - Cecilia Conn MD - 11/20/2023 11:57 AM SAND CONTROL WORKER I have seen and examined the patient. I agree with the findings and plan of care as documented in the resident/fellow's note. My total encounter time on 09/10/2023 was 30 minutes which was spent in the activities documented in the note. This includes time spent prior to the visit and after the visit in direct care of the patient. This time does not include time spent in any separately reportable services. documented in this encounter Plan of Treatment Not on file documented as of this encounter Procedures Procedure Name Priority Date/Time Associated Diagnosis Comments UT ARTHROCENTESIS ASPIR&/INJ MAJOR JT/BURSA W/O US Routine 09/10/2023 10:00 AM CDT Left hip pain documented in this encounter Results * XR Hip Left 2 or 3 Views W Pelvis (09/10/2023 10:16 AM CDT) Anatomical Region Laterality Modality Lower Extremities, Hip, Pelvis Left C omputed Radiography 09/10/2023 10:5 9 AM CDT Impressions 09/10/2023 10:59 AM CDT 1. ??Mild left hip osteophyte arthritis. Electronically signed by: Tracie Ham MD Narrative 09/10/2023 10:59 AM CDT EXAMINATION: XR HIP LEFT 2 OR 3 VIEWS W PELVIS HISTORY: ??Hip pain. FINDINGS: 2 views of the left hip with pelvis are reviewed with comparison to 08/18/2023. There is mild left hip osteoarthritis. ??There is no acute fracture. Alignment is normal. ??Degenerative changes present at the sacroiliac joints. ??Partially visualized lumbosacral fusion hardware. Procedure Note Tracie Ham MD - 09/10/2023 EXAMINATION: XR HIP LEFT 2 OR 3 VIEWS W PELVIS HISTORY: Hip pain. FINDINGS: 2 views of the left hip with pelvis are reviewed with comparison to 08/18/2023. There is mild left hip osteoarthritis. There is no acute fracture. Alignment is normal. Degenerative changes present at the sacroiliac joints. Partially visualized lumbosacral fusion hardware. IMPRESSION: 1. Mild left hip osteophyte arthritis. Electronically signed by: Tracie Ham MD Cecilia Ruggiero MD IMG XR PROCEDURES Fin al Result * UT ARTHROCENTESIS ASPIR&/INJ MAJOR JT/BURSA W/O US (09/10/2023 10:00 AM CDT) Narrative Cecilia Conn MD - 09/10/2023 10:00 AM CDT Cecilia Conn MD ? 11/20/2023 11:58 AM Large Joint Injection: L hip joint Performed by: Cecilia Conn MD Authorized by: Cecilia Conn MD ?? Large Joint Injection/Aspiration: ??Consent Given by: ??Patient ??Site marked: the procedure site was marked ?Timeout: prior to procedure the correct patient, procedure, and site was verified ?Verbal consent obtained: Yes ?? Supporting Documentation: ??Indications: ??Diagnostic and pain Procedure Details: ??Location: ??Hip ??Site: ??L hip joint ??Prep: patient was prepped and draped in usual sterile fashion ?Needle Size: ??18 G ??Ultrasound guided: No ?Fluroscopic guidance: No ?Medications: ??5 mL lidocaine 10 mg/mL (1 %) ??Patient tolerance: ??Patient tolerated the procedure well [...] MAR Action Action Date Dose Rate Site lidocaine (XYLOCAINE) 10 mg/mL (1 %) injection 5 mL 5 mL, One-Time Injection, Starting on Fri09/10/23 at 1000, For 1 dose, Indications: Administration of Local AnesthesiaIndications:Administra tion of Local Anesthesia Given 09/10/2023 10:00 AM CDT 5 mL Left Hip documented in this encounter Historical Medications * This list may reflect changes made after this encounter. methylphenidate HCl (RITALIN) 5 mg tabletIndications:A ttention-Deficit Hyperactivity Disorder Take 1 tablet (5 mg total) by mouth daily with lunch 08/28/2023 added in this encounter Care Teams Field Artillery Operations Man Relationship Specialty Start Date End Date Laureano Lantigua MD [address] [place] [address] PCP - General Internal Medicine 07/30/18 Tony Washington MD [address] [facility] [address] Supervisor Dairy Sanitation Obstetrics and Gynecology 11/16/18 Anahy Rosales MD [address] [place] [address] [place] [address] Referring Physician Psychiatry 11/16/18 Nathalia Rodas, PT Physical Therapist Physical Therapy 02/14/23 documented as of this encounter
--- OUTSIDE RECORDS SUMMARY | 2024-11-15 03:24 | XMS_ITS | Encounter Summary ---
Author Organization [facility] Healthcare Address [address] [place] [address] Care Team Providers Care Metal Plater Name Role Phone Laureano Lantigua MD Primary Care Provider [phone] Tony Washington MD Unavailable [phone] Anahy Rosales MD Unavailable [phone] Nathalia Rodas PT Unavailable Unavailable Reason for Visit * Reason Comments PT Treatment * Consultation (Routine) - Closed Specialty Diagnoses / Procedures Referred By Contмария t Referred To Contact Physical Therapy Diagnoses Unilateral primary osteoarthritis, left hip Teddy Toussaint MD [address] [facility] [address] [place] [address] Phone: tel:[phone] fax: [address] [address] Referral ID Status Reason Start Date Expiration Date V isits Requested Visits Authorized [id number] Closed Specialty Services Required 01/28/2023 02/27/2024 12 12 Encounter Details Date Type Department Care Team (Late st Contact Info) Description 04/09/2023 10:45 AM CDT Therapy [facility] [place] [address] Nathalia Rodas, PT Left hip pain (Primary [...] on file Legal Sex Female 1:37 AM 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 Left hip pain 719.45 M25.552 2. Primary osteoarthritis of left hip 715.15 M16.12 3. Unilateral primary osteoarthritis, left hip 715.15 M16.12 Subjective: Finesse is having increased anterior groin pain and posterior hip pain today, limping into the clinic. Denies radiating symptoms today. She is leaving for [place] this evening and is concerned about feeling comfortable on the flight. Objective: See previous note Treatment Provided: Prone hip mob PA, PA with ER; lateral glides Supine hip stretching Adductor stretching - supine, with manual STM and roller Prone hip ER STM Seated nerve glide Sidelying lumbar rotation/gapping* 1/2 kneel hip flexor stretch* Supine Marching* Supine BKFO with red TB* Sit to Stand with cueing for glute contraction* Supine nerve glide* Clamshells with Red TB* Bridge with red TB* Bird Dog* QPed fire hydrant* Bladder log Not performed this date: Prone L/S CPA, sacral mob into ext STM paraspinals, L external rotators Cat/cow Quad rock* QPed TA contraction* Education [...] improvement of symptoms by end of session. Reviewed use of tennis ball and stretches she can perform on plane to improve symptoms, as well as getting up & walking as often as she is able to do so. Goals STG 1:: Pt is IND with [...] standing. goal progressing - chair dependent Plan: Re-assess next visit Time in: 1045 Time out: 1130 Nathalia Rodas PT, DPT, COMT documented in this encounter Plan of Treatment Not on file documented as of this encounter Visit Diagnoses Diagnosis Left hip pain- Primary Pain in joint, pelvic region and thigh Unilateral primary osteoarthritis, left hip Primary osteoarthritis of left hip documented in this encounter Care Teams Metal Plater Relationship Specialty Start Date End Date Laureano Lnatigua MD [address] [place] [address] PCP - General Internal Medicine 07/30/18 Tony Washington MD [address] [place] [address] House Cleaner Obstetrics and Gynecology 11/16/18 Anahy Rosales MD [address] [place] [address] [address] [place] [address] Referring Physician Psychiatry 11/16/18 Nathalia Rodas, PT Physical Therapist Physical Therapy 02/14/23 documented as of this encounter
--- OUTSIDE RECORDS SUMMARY | 2024-11-15 03:24 | XMS_ITS | Encounter Summary ---
Author Organization [facility] Healthcare Address [address] [place] [address] Care Team Providers Care Front Loader Residential Driver Name Role Phone Laureano Lantigua MD Primary Care Provider [phone] Tony Washington MD Unavailable [phone] Anahy Rosales MD Unavailable [phone] Nathalia Rodas PT Unavailable Unavailable Reason for Visit * Reason Comments PT Re-Eval PT Treatment Encounter Details Date Type Department Care Team (Late st Contact Info) Description 03/20/2023 7:45 AM CDT Therapy [facility] [place] [address] Nathalia Rodas, PT Left hip pain (Primary [...] on file Legal Sex Female 1:37 AM CLAMPER Gender Identity Female 10/03/2023 10:05 AM CLAMPER Sexual Orientation Straight 10/03/2023 10 :05 AM CLAMPER documented as of this encounter Progress Notes * Nathalia Rodas, PT - 03/20/2023 7:45 AM CDT PT Treatment 02/26/2023 Finesse Flynn Pasfreddie 1970 ICD-9-CM ICD-10-CM 1. Left hip pain 719.45 M25.552 2. Primary osteoarthritis of left hip 715.15 M16.12 3. Unilateral primary osteoarthritis, left hip 715.15 M16.12 Subjective: She describes low back aching. She is not currently having LE symptoms. She had soreness yesterday after last visit with slight increase in pain. Currently her L hip is painful into groin and posterior hip. She feels like her buttock pain from her recent fall is significantly better. She is not experiencing LE radicular symptoms as frequently, down to intermittent and not every day. She is still finding she is only working and then resting at home due to low back and hip pain. Trunk rotation increased posterior L hip. Posterior hip pain is still constantly present but is more tolerable. Pressure to posterior hip will decrease symptoms. Objective: Lower Extremity Functional Scale (LEFS): IE: 3080; Re-eval 03/20/2340/ ROM: Left Right Hip Flexion WNL Hip Extension WNL Hip External Rotation 50 deg Hip Internal Rotation Pain & limited ROM Hip Abduction Manual Muscle Testing: Left Right Hip Flexion 4+/5 4+/5 Hip External Rotation 5/5 5/5 Hip Internal Rotation 5/5* 5/5 Hip Abduction 5/5 5/5 Knee Extension 5/5 5/5 Knee Flexion 5/5 5/5 Ankle DF 5/5 5/5 Ankle PF *=denotes pain Palpation: TTP lateral greater trochanter, L sacral muscular attachment, L ischial tuberosity, L obturator internus (external palpation); L sciatic notch tender but significantly improved with no longer wincing or jumping to gentle palpation Treatment Provided: Supine Marching Supine BKFO with red TB [...] TA recruitment with marching; [id number] Assessment: Finesse has been to a total of 8 physical therapy visits thus far. Overall, she is noticing significantly less radicular L LE symptoms, and overall gradual decreased intensity of L hip and low back pain. She is stave machine tender to palpation of sciatic notch and L hip external rotator musculature, but is no longer wincing and jumping in pain. She continues to demonstrate decreased glute recruitment & overactive multifidi & QL use with functional activities, such as sit to stand and hip extension, and we are focusing on hip extensor and hip external rotator strength to improve functional movement patterns. She will continue to benefit from current POC to address remaining impairments to decr ease pain, improve function, and reach patient's goals. Goals STG 1:: Pt is IND with [...] address core and hip strengthening. Time in: 744 Time out: 829 Nathalia Rodas, PT, DPT, COMT documented in this encounter Plan of Treatment Not on file documented as of this encounter Visit Diagnoses Diagnosis Left hip pain- Primary Pain in joint, pelvic region and thigh Unilateral primary osteoarthritis, left hip Primary osteoarthritis of left hip documented in this encounter Care Teams Front Loader Residential Driver Relationship Specialty Start Date End Date Laureano Lantigua MD [address] [place] [place] [address] PCP - General Internal Medicine 07/30/18 Tony Washington MD [address] [facility] [address] [place] [address] Executive Vice President Obstetrics and Gynecology 11/16/18 Anahy Rosales MD [address] [facility] [address] [place] [address] Referring Physician Psychiatry 11/16/18 Nathalia Rodas PT Physical Therapist Physical Therapy 02/14/23 documented as of this encounter
--- OUTSIDE RECORDS SUMMARY | 2024-11-15 03:24 | XMS_ITS | Encounter Summary ---
Author Organization [facility] Healthcare Address [address] [place] [address] Care Team Providers Care Extractor Plant Operator Name Role Phone Laureano Lantigua MD Primary Care Provider [phone] Tony Washington MD Unavailable [phone] Anahy Rosales MD Unavailable [phone] Nathalia Rodas PT Unavailable Unavailable Reason for Visit * Auth/Cert (Routine) Specialty Diagnoses / Procedures Referred By Contac t Referred To Contact Diagnoses Menorrhagia with regular cycle Menorrhagia with regular cycle [N92.0] Procedures [place] HYSTEROSCOPY ENDOMETRIAL ABLATION ABLATION UTERINE HYSTEROSCOPY - NOVASURE Referral ID Status Reason Start Date Expiration Date Visits Re quested Visits Authorized [id number] 1 1 Encounter Details Date Type Department Care Team (Late st Contact Info) Description 03/12/2023 8:52 AM CDT Anesthesia Event [facility] Operating Room [address] [place] [address] Moy Dumont Jr., MD [address] [place] [address] [place] [address] [place] [address] Anesthesia Record Procedure Summary Procedure Name Responsible Anesthesiologist Anesthesia Start Time Anesthesia Stop Time ABLATION UTERINE HYSTEROSCOPY - NOVASURE, dilation and curettage (Vagina) Moy Dumont Jr., MD 03/12/23 0852 03/12/23 0946 Events Date Time Event Comment 03/12/2023 0835 0851 In Room 0852 An Start 0852 An Start Data 0857 An Induction The patient was reevaluated immediately before moderate or deep sedation use and before anesthesia induction. 0858 An LMA 0902 Anesthesia Ready 0916 Proc Start 0916 Incision Start 0938 Proc Fin 0938 Airway Removed 0939 an stop data 0942 Out of Room 0946 An Stop 0946 Handoff to RN I completed my handoff [...] Patient disposition at the time of handoff: PACU Meds Name Total midazolam 2 mg fentaNYL 100 mcg propofol 200 mg lidocaine (cardiac) syringe 2 % 100 mg dexamethasone 10 mg cefOXitin (MEFOXITIN) 1,000 mg/10 mL in sterile water (premix) 2,000 mg 2,000 mg Lactated Ringer's (LR) infusion 0 mL * Agents Name O2 Air Sevoflurane Inspired Sevoflurane * Blood No blood administrations on file. Lines, Drains, and Airways Type Details Placement Removal Peripheral IV Placement Date: 03/12/23; Placement Time: 0802; Catheter Size: 20 G; Orientation: Left; Location: Antecubital; Site Prep: Chlorhexidine; Inserted by: zhanna; Insertion Attempts: 1; Removal Date: 03/12/23; Removal Time: 1053 03/12/[address] RN 03/12/[address] RN RETIRED Surgical Site 03/12/23; 0933; Vagina; 10/07/23; 0731; Removal date unknown/not present on admission 03/12/23 0933 by Rose Darby RN 10/07/23 0731 by Gronborg, Shira T., RN documented in this encounter Social History [...] on file Legal Sex Female 1:37 AM OILER AND GREASER Gender Identity Female 10/03/2023 10:05 AM OILER AND GREASER Sexual Orientation Straight 10/03/2023 10 :05 AM OILER AND GREASER documented as of this encounter OR Notes * Anesthesia Postprocedure Evaluation - Moy Dumont Jr., MD - 03/12/2023 5:53 PM CDT Patient: Finesse Ramirez Procedure Summary Date: 03/12/23 Room / Location: [facility] OR [address] [place] [address] OPERATING ROOM Anesthesia Start: 851 Anesthesia Stop: 945 Procedure: ABLATION UTERINE HYSTEROSCOPY - NOVASURE, dilation and curettage (Vagina) Diagnosis: Menorrhagia with regular cycle (Menorrhagia with regular cycle [N92.0]) Providers: Tony Washington MD Responsible Provider: Moy Dumont Jr., MD Anesthesia Type: general ASA Status: 2 Anesthesia Type: general Last vitals BP 154/75 Pulse 87 Temp 36.3 ??C (97.3 ??F) (Temporal) Resp 18 SpO2 97% Anesthesia Post Evaluation Patient location during evaluation: PACU Patient participation: complete - patient participated Level of consciousness: arouses shampoo person Pain score: 0 Pain management: adequate Airway patency: adequate Evidence of recall: no Cardiovascular status: acceptable Respiratory status: acceptable Hydration status: acceptable Pt is: normothermic Nausea/Vomiting status: none No notable events documented. * Anesthesia Procedure Notes - Grupo Goldman CRNA - 03/12/2023 9:04 AM CDT Associated Order(s): Airway Airway Indications for airway management: anesthesia Difficult airway: no Staff: Placed by: LUGGAGE MAKER: Grupo Goldman CRNA Emergent airway documentation: Risks and benefits discussed: yes Consent obtained: yes Consent given by: patient Airway prep: Preoxygenated: yes Patient position: sniffing Mask difficulty assessment: 0 - not attempted Spontaneous ventilation during airway: present Sedation level during airway: GA Final airway details: Final airway type: supraglottic airway Final supraglottic airway: classic SGA size: 4 Number of attempts: 1 Planned trial extubation: yes * Anesthesia Preprocedure Evaluation - Rachid Gregg MD - 03/12/2023 8:22 AM CDT Images from the original note were not included. Anesthesia Evaluation Finesse Ramirez is a 53 y.o. female Procedure(s): ABLATION UTERINE HYSTEROSCOPY - NOVASURE Pre-Op Diagnosis Codes: * Menorrhagia with regular cycle [N92.0] HISTORY Past Medical History Neurological + Psychiatric history - depression and anxiety Cardiovascular + Hypertension + Hyperlipidemia Respiratory + Asthma Dyspnea frequency: never. Rescue inhaler use: never. Hepatic / Heme Hepatic/Heme system: negative Gastrointestinal + GERD - PRN medication use only. Asymptomatic. Renal / Renal/ system: negative Musculoskeletal/Pain + Osteoarthritis Endocrine / Other + Cancer history- skin cancer only. Functional Capacity Functional capacity: 6-10 METs Day of Surgery assessments + Possibility of assessed - HCG negative (see labs). Patient Active Problem List Diagnosis ??? Asthma ??? Recurrent major depressive disorder, in full remission (CMS/HCC) (HCC) ??? Attention deficit hyperactivity disorder (ADHD) ??? Osteoarthritis of cervical spine ??? Lumbago ??? Itching ??? Menorrhagia with regular cycle Past Medical History: Diagnosis Date ??? Anxiety ??? Asthma Asthma; Comments: [facility] 06/27/2014 - ??? Cancer (CMS/HCC) (HCC) [facility] ??? Female infertility Infertility, female ??? Fibrocystic breast ??? GERD (gastroesophageal reflux disease) ??? Hammer toe Hammer toe; Comments: [facility] 06/27/2014 - ??? HX OTHER MEDICAL Sinusitis, ADD, diverticulosis, obesity, OA, asthm ??? HX OTHER MEDICAL Depression, with Anxiety; PCOS ??? HX OTHER MEDICAL Missed Ab ??? HX OTHER MEDICAL ; Outcome: 37W0D week 7lb(s) 7 oz Male ??? Hypercholesterolemia High cholesterol; Comments: [facility] 06/27/2014 - ??? Hypertension Hypertension ??? Motion sickness ??? Retinal detachment Detachment of retina; Comments: [facility] 06/27/2014 - Past Surgical History: Procedure Laterality Date ??? ANKLE SURGERY Left 2007 Ankle surgery ??? CARDIAC CATHETERIZATION 2012 ??? CARPAL TUNNEL RELEASE Bilateral Carpal tunnel release ??? CHOLECYSTECTOMY 03/2018 ??? COLONOSCOPY 03/27/2021 1st ??? ELBOW SURGERY Left 11/07/2020 x2 ??? FOOT SURGERY Bilateral ??? MOHS SURGERY 07/2021 [facility] ??? OTHER SURGICAL HISTORY Left Rotator Cuff Repair, L. ankle surgery, back surgery x2 ??? OTHER SURGICAL HISTORY samuel carpal tunnel repair, eye surgery, ankle and foot surger ??? OTHER SURGICAL HISTORY retina re-attachment, multiple surgeries ??? OTHER SURGICAL HISTORY Missed Ab: Suction D&C ??? OTHER SURGICAL HISTORY 2008 Right ACL repair ??? OTHER SURGICAL HISTORY 2004 : 1 hr labor ??? ROTATOR CUFF REPAIR Left Rotator cuff repair ??? SHOULDER SURGERY Left ??? SLEEVE GASTROPLASTY Laparoscopic Gastric Sleeve ??? SPINAL FUSION 2010 Spinal fusion L5-S1 OB History 2 Para 1 Term 1 0 AB 1 Living 1 SAB 1 IAB 0 Ectopic 0 Multiple 0 Live Births 1 Allergies Allergen Reactions ??? Erythromycin Rash Reaction: Rash, ??? Morphine Nausea only and Vomiting Reaction: Nausea, Vomiting, , Reaction: Nausea, Vomiting, , ??? Vicodin [Hydrocodone-Acetaminophen] Vomiting Med List Status: Nurse Complete Set By: Ramya Ortiz RN at 03/10/2023 1:52 PM Taking? Last Dose Start Date End Date Provider albuterol HFA (PROVENTIL HFA,VENTOLIN HFA,PROAIR HFA) 90 mcg/actuation inhaler More than a month 01/04/22 -- Laureano Lantigua MD 2 puffs qid prn busPIRone (BUSPAR) 10 mg tablet 03/11/2023 10/18/21 -- Laureano Lantigua MD Take 1 tablet (10 mg total) by mouth daily as needed (anxiety) carisoprodoL (SOMA) 350 mg tablet More than a month 01/09/22 -- Laureano Lantigua MD Take 1 tablet (350 mg total) by mouth nightly as needed for muscle spasms ferrous sulfate 325 mg (65 mg of elemental iron) tablet 03/10/2023 -- -- Kanu Waterman MD magnesium phosphate, bulk, powder 03/08/2023 -- -- Kanu Waterman MD methylphenidate ER (CONCERTA) 27 mg CR tablet 03/11/2023 -- -- Kanu Waterman MD multivitamin (MULTIPLE VITAMINS) tablet tablet 03/07/2023 01/16/15 -- Laureano Lantigua MD take 1 tablet by oral route every day with food oxyCODONE-acetaminophen (PERCOCET) 5-325 mg per tablet 03/06/2023 01/04/22 -- Laureano Lantigua MD Take 1 tablet by mouth every 8 (eight) hours as needed for pain traZODone (DESYREL) 50 mg tablet 03/06/2023 02/03/23 -- Kanu Waterman MD Current Facility-Administered Medications: ??? Carrier Fluids for Secondary Infusion - 0.9% Sodium Chloride, 30 mL, intravenous, PRN ??? Lactated Ringer's (LR) infusion, 30 mL/hr, intravenous, Continuous, Last Rate: 30 mL/hr at 03/12/23805, 30 mL/hr at 03/12/23805 ??? scopolamine patch 72 hour 1 patch, 1 patch, transdermal, Once, 1 patch at 03/12/23807 ??? sodium chloride 0.9% flush 0.5-20 mL, 0.5-20 mL, intra-catheter, PRN Social History Tobacco Use Smoking Status Never Smokeless Tobacco Never Vaping Use Vaping Status Never Used Alcohol Use: Heavy Drinker (03/10/2023) AUDIT-C ??? Frequency of Alcohol Consumption: 2-4 times a month ??? Average Number of Drinks: 3 or 4 ??? Frequency of Binge Drinking: Not on file Substance and Sexual Activity Drug Use No Family History Problem Relation Age of Onset ??? Heart disease Father Heart disease; ??? Heart attack Father Myocardial Infarction; ??? Hyperlipidemia Father High cholesterol; ??? Heart attack Maternal Grandfather Myocardial Infarction; Cause of : Myocardial Infarction ??? Prostate cancer Maternal Grandfather Cancer, prostate; ??? Heart disease Other Heart disease; ??? Heart attack Cousin Myocardial Infarction; ??? Hypertension Mother Hypertension; ??? Hypertension Maternal Grandmother Hypertension; ??? Diabetes Other Diabetes mellitus; Vitals: 03/12/23 0758 BP: 156/85 Pulse: 74 Resp: 18 Temp: 36.1 ??C (97 ??F) SpO2: 97% Lab Results Component Value Date WBC 6.5 03/12/2023 HGB 13.3 03/12/2023 HCT 38.9 03/12/2023 MCV 91.3 03/12/2023 LABPLAT 249 03/12/2023 Lab Results Component Value Date GLUCOSE 99 01/04/2022 CALCIUM 9.1 01/04/2022 SODIUM 139 01/04/2022 POTASSIUM 4.7 01/04/2022 CO2 24 01/04/2022 CHLORIDE 105 01/04/2022 BUNSER 15 01/04/2022 CREATININE 0.78 01/04/2022 STOP-Bang Total Score: 1 DOS Physical Exam Medical history, medications, and allergies reviewed. Attestation: I endorse the findings of the anesthesia pre-evaluation assessment dated: 03/12/2023. Airway Exam: Mallampati: II Cervical ROM: FROM TM distance: normal Cardiovascular Exam: Rate: regular Rhythm: regular Pulmonary Exam: LCTA, bilat EENT Exam: trachea midline Dental Exam: Appears intact Skin Exam: Skin is warm. Current state: Patient's current state is interactive. Anesthesia Plan ASA 2 Planned anesthesia: General Team communication plan: LMA Induction: Induction: intravenous. Postoperative Plan: No plan for postoperative opioid use. No postoperative mechanical ventilation intended. Patient's planned disposition post procedure is Outpatient. Informed Consent: Discussed plan with attending and LUGGAGE MAKER. Anesthesia plan and risks discussed with patient. Consent and Attending signature: I and/or my designee have discussed the anesthesia plan, benefits, possible alternatives, parental presence at time of induction (if indicated), and clinically relevant risks that may include dental injury, unintentional awareness, and/or other complications. The patient and/or parent/legal guardian understand, and agree to proceed. All questions answered. documented in this encounter Plan of Treatment Not on file documented as of this encounter Procedures Procedure Name Priority Date/Time Associated Diagnosis Comments ANESTHESIA INTUBATION Routine 03/12/2023 9:04 AM CDT documented in this encounter Results * Airway (03/12/2023 9:04 AM CDT) Narrative Grupo Goldman CRNA - 03/12/2023 9:04 AM CDT Grupo Goldman CRNA ? 03/12/2023 ??9:05 AM Airway Indications for airway management: anesthesia Difficult airway: no Staff: Placed by: LUGGAGE MAKER: Grupo Goldman CRNA Emergent airway documentation: Risks and benefits discussed: yes Consent obtained: yes Consent given by: patient Airway prep: Preoxygenated: yes Patient position: sniffing Mask difficulty assessment: 0 - not attempted Spontaneous ventilation during airway: present Sedation level during airway: GA Final airway details: Final airway type: supraglottic airway Final supraglottic airway: classic SGA size: 4 Number of attempts: 1 Planned trial extubation: yes Moy Dumont Jr., MD ANESTHESIA ORDER KAI Final Result documented in this encounter Visit Diagnoses Not on filedocumented in this encounter Administered Medications Inactive Administered Medications - up to 3 most recent administrations Medication Order MAR Action Action Date Dose Rate Site cefOXitin (MEFOXITIN) 1,000 mg/10 mL in sterile water (premix) 2,000 mg 2,000 mg, intravenous, at 400 mL/hr, Administer over 3 Minutes, Once, On Fri03/12/23 at 0915, For 1 dose, Pre-Op, Indications: Prophylaxis, SurgicalIndications:Prophylaxis, Surgical Given 03/12/2023 9:01 AM CDT 2,000 mg dexAMETHasone (DECADRON) injection solution intravenous, Administer over 2 Minutes, As needed, Starting on Fri03/12/23 at 0909, Anesthesia Intra-op Given 03/12/2023 9:09 AM CDT 10 mg fentaNYL (SUBLIMAZE) preservative free injection intravenous, As needed, Starting on Fri03/12/23 at 0857, Anesthesia Intra-op Given 03/12/2023 9:06 AM CDT 50 mcg Given 03/12/2023 8:57 AM CDT 50 mcg Lactated Ringer's (LR) infusion 30 mL/hr, intravenous, Continuous, Starting on Fri03/12/23 at 0815, Pre-Op, Rate/Dose Change 03/12/2023 9:03 AM CDT 30 mL/hr Rate/Dose Verify 03/12/2023 8:52 AM CDT 30 mL/h r New Bag 03/12/2023 8:06 AM CDT 30 mL/hr 30 mL/hr lidocaine (XYLOCAINE) 20 mg/mL (2 %) preservative free injection intravenous, As needed, Starting on Fri03/12/23 at 0857, Anesthesia Intra-op Given 03/12/2023 8:57 AM CDT 100 mg midazolam (VERSED) 1 mg/mL preservative free injection intravenous, Administer over 2 Minutes, As needed, Starting on Fri03/12/23 at 0852, Anesthesia Intra-op Given 03/12/2023 8:52 AM CDT 2 mg propofoL (DIPRIVAN) 10 mg/mL IV intravenous, As needed, Starting on Fri03/12/23 at 0857, Anesthesia Intra-op Given 03/12/2023 8:57 AM CDT 200 mg documented in this encounter Care Teams Extractor Plant Operator Relationship Specialty Start Date End Date Laureano Lantigua MD [address] [place] [place] [address] PCP - General Internal Medicine 07/30/18 Tony Washington MD [address] [facility] [address] [place] [address] Professor Of Poultry Science Obstetrics and Gynecology 11/16/18 Anahy Rosales MD [address] [place] [address] [address] [place] [address] Referring Physician Psychiatry 11/16/18 Nathalia Rodas PT Physical Therapist Physical Therapy 02/14/23 documented as of this encounter
--- OUTSIDE RECORDS SUMMARY | 2024-11-15 03:24 | XMS_ITS | Encounter Summary ---
Author Organization [facility] Healthcare Address [address] [place] [address] Care Team Providers Care Pleasure Craft Sailor Name Role Phone Laureano Lantigua MD Primary Care Provider [phone] Tony Washington MD Unavailable [phone] Anahy Rosales MD Unavailable [phone] Nathalia Rodas PT Unavailable Unavailable Reason for Visit * Auth/Cert (Routine) Specialty Diagnoses / Procedures Referred By Contac t Referred To Contact Diagnoses Menorrhagia with regular cycle Menorrhagia with regular cycle [N92.0] Procedures SC HYSTEROSCOPY ENDOMETRIAL ABLATION ABLATION UTERINE HYSTEROSCOPY - NOVASURE Referral ID Status Reason Start Date Expiration Date Visits Re quested Visits Authorized [id number] 1 1 Encounter Details Date Type Department Care Team (Latest Contact Info) Description 03/12/2023 7:31 AM CDT - 03/12/2023 11:15 AM CDT Hospital Encounter [facility] Operating Room 1 [place] [address] Tony Washington MD [address] [place] [address] [address] Menorrhagia with regular cycle Discharge Disposition: Discharge to home or self [...] on file Legal Sex Female 1:37 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 Gender Identity Female 10/03/2023 10:05 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 Sexual Orientation Straight 10/03/2023 10 :05 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 documented as of this encounter Last Filed Vital Signs Vital Sign Reading Time Taken Comments Blood Pressure 154/75 03/12/2023 11:05 AM CDT Pulse 87 03/12/2023 11:05 AM CDT Temperature 36.3 ??C (97.3 ??F) 03/12/2023 1 1:05 AM CDT Respiratory Rate 18 03/12/2023 11:0 5 AM CDT Oxygen Saturation 97% 03/12/2023 11: 05 AM CDT Inhaled Oxygen Concentration - - Weight 100.1 kg (220 lb 10.9 oz) 03/12/2023 7:58 AM CDT Height 182.9 cm (6') 03/12/2023 7:58 AM CDT Body Mass Index 29.93 03/12/2023 7:58 AM CDT documented in this encounter Discharge Instructions * Attachments The following attachments cannot be sent through Care Everywhere. * General Anesthesia (Discharge Care) (Sami) * Ibuprofen (By mouth) (Sami) documented in this encounter Medications at Time [...] History: Diagnosis Date Anxiety Asthma Asthma; Comments: [facility] 06/27/2014 - Cancer (CMS/HCC) (HCC) 2020 [facility] Female infertility Infertility, female Fibrocystic breast GERD (gastroesophageal reflux disease) Hammer toe Hammer toe; Comments: [facility] 06/27/2014 - HX OTHER MEDICAL Sinusitis, ADD, diverticulosis, obesity, OA, asthm HX OTHER MEDICAL Depression, with Anxiety; PCOS HX OTHER MEDICAL Missed Ab HX OTHER MEDICAL ; Outcome: 37W0D week 7lb(s) 7 oz Male Hypercholesterolemia High cholesterol; Comments: [facility] 06/27/2014 - Hypertension Hypertension Motion sickness Retinal detachment Detachment of retina; Comments: [facility] 06/27/2014 - Past Surgical History: Procedure [...] To RR stable. Indications for Procedure: Joshua Ramirez is a 53 y.o. year [...] that you and your doctor have chosen [facility] for your surgery. We hope that the [...] prior to surgery Use no make-up, nail georgian, lotions, oils or powders on your skin. [...] biopsy) 03/12/2023 9:29 AM CDT Narrative PATHOLOGY [facility] ([place]) - 03/13/2023 10:57 AM CDT EPIC results best viewed via link to PDF [facility] Department of Pathology [address] [place] [address] Note to Patients: This report may contain [...] explain the details. Final Report Patient Name: ??JOSHUA RAMIREZ Address: ??[facility] [address], ??[place], [place] ??[address]- Gender: ??F : ??1970 (Age: 53) Service: ??Surgery Location: ??[facility] Hospital #: ??[id number] Patient Type: ??[facility] EP OP in bed Accession # ?[id number] Taken: ??03/12/2023 Received: ??03/12/2023 Accessioned: ??03/12/2023 Reported: [...] single formalin filled container labeled with JOSHUA RAMIREZ and endometrial curettings . ??It is approximate 2 cc aggregate of hemorrhagic mucosal tissue fragments and blood. ??All in one cassette. Klaudia Abel R.N. P.A./Chema Navarro M.D. REPORT IMAGES AND SCANNED DOCUMENTS, IF INCLUDED, ONLY VIEWABLE IN PDF VERSION OF REPORT The performance characteristics of some immunohistochemical stains, fluorescence in-situ hybridization tests and immunophenotyping by flow cytometry cited in this report (if any) were determined by the Surgical Pathology Department at [facility] as part of an ongoing quality consultant program and in compliance with federally mandated [...] characteristics determined by the Surgical Pathology Department [facility]. ??It has not been cleared or approved by the U. S. Food and Drug Administration. Note for decalcified specimens: This assay has not been validated on decalcified tissues. Results should be interpreted with caution given the possibility of false negativity on decalcified specimens Tony Washington MD LAB PATHOLOGY ORDERABLES F inal Result PATHOLOGY [address] [id number] * POCT hCG, urine (03/12/2023 8:44 AM CDT) HCG, ur, POC Negative Lot Number [id number] QC Backgroud Clear Acceptable QC Control Line Acceptable Urine 03/12/2023 8:44 AM CDT Tony Washington MD POINT OF CARE TEST ORDERAB LES Final Result * eGFR (03/12/2023 8:03 AM CDT) eGFR 80 mL/min/1. 73 m2 DARIUS GARCIA ([place]) Comment: Interpretive Data Reference Interval Normal ?>/= [...] LAB BLOOD ORDERABLES Final Result DARIUS GARCIA ([place]) [address] [facility] Department of Laboratories [place], [place] [id number] * Urinalysis reflex to microscopic and culture Urine, clean voided (03/12/2023 8:03 AM CDT) Color, ur Yellow Yellow DARIUS GARCIA ([place]) Clarity, ur Clear Clear DARIUS Chance ([place]) Specific gravity, ur 1.030 1.003 - 1.030 [...] CDT 03/12/2023 8:11 AM CDT Narrative DARIUS RADHA ([place]) - 03/12/2023 8:24 AM CDT ?? Urine pH is affected by diet, medications, systemic acid-base disturbances, and renal tubular function. ??pH may affect urinary stone formation. ??For example, urine pH below 6.0 may help reduce the tendency for calcium phosphate stones and pH greater than 6.0 may reduce the tendency for uric acid stone formation. Source: [facility] [employer]. Last revised 11-27-2017 Tony Washington MD LAB MICROBIOLOGY - GENERAL ORDERABLES Final Result Performing Organization Address City/[facility]/ZIP Co de Phone Number FATOUMATANGOC RADHA ([place]) [address] [facility] [place] [address] * Vitamin D 25 hydroxy (03/12/2023 8:03 AM CDT) Vitamin D 25-OH 32 30 - 80 ng/mL [facility] ([place]) Blood 03/12/2023 8:03 AM CDT 03/12/2023 8:22 AM CDT Tony Washington MD LAB BLOOD ORDERABLES Final Result Performing Organization Address City/[facility]/ZIP Co de Phone Number DARIUS GARICA ([place]) [address] Department [place] [address] * TSH reflex to free T4 (03/12/2023 8:03 AM CDT) Pathologist [facility] TSH 1.57 0.30 - 4.20 mcIUnit/mL [facility] ([place]) Blood 03/12/2023 8:03 AM CDT 03/12/2023 8:11 AM CDT Tony Washington MD LAB BLOOD ORDERABLES Final Result DARIUS GARCIA ([place]) 1 [place] [address] * Insulin, total (03/12/2023 8:03 AM CDT) Pathologist [facility] Insulin 7.5 2.6 - 25.0 mcIUnit/mL [facility] ([place]) Comment:Testing performed by : [facility], [address] [place] [address], [address] Blood 03/12/2023 8:03 AM CDT 03/12/2023 10:26 AM CDT Tony Washington MD LAB BLOOD ORDERABLES Final Result DARIUS GARCIA ([place]) 1 [facility] [place] [address] * Cortisol (03/12/2023 8:03 AM CDT) Cortisol 9.9 4.8 - 19.5 mcg/dl [facility] ([place]) Comment: Interpretive Data Normal Range: ??4.8 - 19.5 mcg/dL; ??Evening: ??Half of morning value. ?? This analyte undergoes marked diurnal variation. ??Ranges indicated apply to morning specimens. ?? Current interpretive data was last revised 2018. Testing performed by: [facility], [address] [place] [address]., [address] Blood 03/12/2023 8:03 AM CDT 03/12/2023 9:09 AM CDT Tony Washington MD LAB BLOOD ORDERABLES Final Result DARIUS GARCIA ([place]) [address] [facility] Department [place] [address] * Lipid panel (03/12/2023 8:03 AM CDT) [...] on 2018. HDL 63 >=40 mg/dL DARIUS Mixon ([place]) Comment: Interpretive Data Ages < or [...] revised on 2018. Non-HDL Cholesterol 125 mg/dL DARIUS GARCIA ([place]) Comment: Interpretive Data [...] Washington MD LAB BLOOD ORDERABLES Final Result [facility] ([place]) [address] [facility] Department [place] [address] * CBC without differential (03/12/2023 8:03 AM [...] 91.3 81.3 - 96.4 fL [facility] ([place]) MCH 31.2 27.1 - 33.3 pg [facility] ([place]) MCHC 34.2 32.3 - 35.7 g/dL [facility] ([place]) RDW CV 13.2 11.1 - 14.9 % [facility] ([place]) RDW SD 43.8 35.7 - 48.1 fL [facility] ([place]) NRBC abs 0.00 0.00 - 0.01 K/cumm [facility] ([place]) Blood 03/12/2023 8:03 AM CDT 03/12/2023 8:11 AM CDT us Tony Washington MD LAB BLOOD ORDERABLES Final Result [facility] [address] [facility] Department [place] [address] * Comprehensive metabolic panel (03/12/2023 8:03 AM CDT) Sodium 140 135 - 145 mmol/L [facility] ([place]) Potassium, pl 4.1 3.3 - 4.9 mmol/L [facility] ([place]) Chloride 105 97 - 110 mmol/L [facility] ([place]) CO2 24 22 - 32 mmol/L [facility] ([place]) Anion gap 11 2 - 15 mmol/L [facility] ([place]) BUN 13 8 - 25 mg/dL [facility] ([place]) Creatinine 0.87 0.60 - 1.10 mg/dL [facility] ([place]) Glucose 96 70 - 199 mg/dL [facility] ([place]) [...] Alk phos 95 40 - 130 Units/L [facility] ([place]) ALT 16 7 - 45 Units/L [facility] ([place]) AST 17 10 - 45 Units/L [facility] ([place]) Blood 03/12/2023 8:03 AM CDT 03/12/2023 8:11 AM CDT Result [facility] Tony Washington MD LAB BLOOD ORDERABLES Final Result D[facility]US [facility] ([place]) 1 [facility] [place] [address] * CRP (acute phase) (03/12/2023 8:03 AM CDT) CRP <3.0 <=10.0 mg/L DARIUS Chance ([place]) Blood 03/12/2023 8:03 AM CDT 03/12/2023 8:11 AM CDT Result [facility] Tony Washington MD LAB BLOOD ORDERABLES Final Result Performing Organization Address City/[facility] de Phone Number [facility] 2[facility] ([place]) 1 [facility] [place] [address] * Hemoglobin A1c (03/12/2023 8:03 AM CDT) Hgb A1C 5.0 4.0 - 5.6 % [facility] [place] 2[facility] ([place]) Estimated Average Glucose 97 mg/dL [facility] ([place]) Comment: The ADA recommends reporting an estimated Average Glucose (eAG) with all Hemoglobin A1c results using the equation derived from a study of 507 normal and diabetic adults. ??Minority populations were underrepresented and children were not included. ?? (Diabetes Care 31:2255-0715, 2008). ??The eAG is not equivalent to a fasting glucose. Blood 03/12/2023 8:03 AM CDT 03/12/2023 8:11 AM CDT Tony Washington MD LAB BLOOD ORDERABLES Final Result Performing Organization Address City/[facility]/ZIP Co de Phone Number DARIUS GARCIA ([place]) [address] [place] [address] [place] [address] * DHEA-sulfate (03/12/2023 8:03 AM CDT) DHEA-S 46.3 35.4 - 256.0 mcg/dL [facility] ([place]) Comment:Testing performed by : [facility], [address] [place]., [address] Blood 03/12/2023 8:03 AM CDT 03/12/2023 10:26 AM CDT Tony Washington MD LAB BLOOD ORDERABLES Final Result Performing Organization Address [facility]/ZIP Co de Phone Number DARIUS GARCIA ([place]) [address] [place] [address] [place] [address] * Testosterone, Total and Free, Serum (03/12/2023 8:03 AM CDT) Testosterone 13 8 - 60 ng/dL [facility] ([place]) Comment: ADDITIONAL INFORMATION Testing performed by Liquid Chromatography-Tandem Mass Spectrometry (LC-MS/MS). This test was developed and its performance characteristics determined by [facility] in a manner consistent with CLIA requirements. This test has not been cleared or approved by the U.S. Food and Drug Administration. Test Performed by: [facility] [address] [place] [address] Scanning Coordinator: Alfredo Lua M.D. Ph.D.; CLIA# [id number] Testosterone, free 0.41 <0.13 - 0.92 ng/dL [facility] ([place]) Comment: ADDITIONAL INFORMATION This test was developed and its performance characteristics determined by [facility] in a manner consistent with CLIA requirements. This test has not been cleared or approved by the U.S. Food and Drug Administration. Blood 03/12/2023 8:03 AM CDT 03/12/2023 8:11 AM CDT us Tony Washington MD LAB BLOOD ORDERABLES Final Result DARIUS GARCIA ([place]) [address] [facility] Department [place] [address] documented in this encounter Visit Diagnoses Diagnosis Menorrhagia with regular cycle- Primary Excessive or frequent menstruation documented in this encounter Admitting Diagnoses Diagnosis [...] AM CDT 1 patch Behind Right Ear documented in this encounter Discontinued Medications Medication [...] For 1 dose, Pre-Op, Indications: Prophylaxis, Surgical 09 (Given - Provid er: [employer]) cefOXitin (MEFOXITIN) 1,000 mg/10 mL in sterile water (premix) 2,000 mg 2,000 mg, intravenous, at 400 mL/hr, Administer over 3 Minutes, Once, On Fri03/12/23 at 1115, For 1 dose, Pre-Op, Indications: Prophylaxis, Surgical 1114 (Due) ibuprofen (ADVIL,MOTRIN) tablet 600 mg (COMPLETED) [...] naloxone (NARCAN) 0.4 mg/mL injection 0.04-0.4 mg 03/12/2023 ondansetron (ZOFRAN) injection 4 mg 1 03/12 prochlorperazine (COMPAZINE) injection 5 mg 1 03/12/2023 sodium chloride 0.9% flush 0.5-20 mL 1 04/2 04/2023 sodium chloride 0.9% irrigation 2 Diet Count Last Ordered Date First Orde [...] 03/12/2023 documented in this encounter Care Teams Pleasure Craft Sailor Relationship Specialty Start Date End Date Laureano Lantigua MD [address] [facility] [place] [address] PCP - General Internal Medicine 07/30/18 Tony Washington MD [address] [facility] [address] [facility] [place] [address] Anesthetic Assistant Obstetrics and Gynecology 11/16/18 Anahy Rosales MD [address] [facility] [address] [facility] [place] [address] Referring Physician Psychiatry 11/16/18 Nathalia Rodas, PT Physical Therapist Physical Therapy 02/14/23 documented as of this encounter
--- OUTSIDE RECORDS SUMMARY | 2024-11-15 03:24 | XMS_ITS | Encounter Summary ---
Author Organization [facility] Healthcare Address [address] [place] [address] Care Team Providers Care Plunger Shovel Operator Name Role Phone Laureano Lantigua MD Primary Care Provider [phone] Tony Washington MD Unavailable [phone] Anahy Rosales MD Unavailable [phone] Nathalia Rodas PT Unavailable Unavailable Reason for Visit * Reason Comments PT Treatment * Consultation (Routine) - Closed Specialty Diagnoses / Procedures Referred By Contмария t Referred To Contact Physical Therapy Diagnoses Unilateral primary osteoarthritis, left hip Teddy Toussaint MD [address] [facility] [address] [place] [address] Phone: tel:[phone] fax: [address] [phone] Referral ID Status Reason Start Date Expiration Date V isits Requested Visits Authorized [id number] Closed Specialty Services Required 01/28/2023 02/27/2024 12 12 Encounter Details Date Type Department Care Team (Late st Contact Info) Description 03/18/2023 4:45 PM CDT Therapy [facility] [place] [address] Nathalia Rodas, PT Left hip pain (Primary [...] on file Legal Sex Female 1:37 AM 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 Left hip pain 719.45 M25.552 2. Primary osteoarthritis of left hip 715.15 M16.12 3. Unilateral primary osteoarthritis, left hip 715.15 M16.12 Subjective: Finesse had radicular symptoms this morning but has improved with walking. She feels essentially the same. Objective: See treatment provided Treatment Provided: Supine Marching Supine BKFO with [...] rock, TA recruitment with marching; [id number] Assessment: Continued to address functional hip and hip ER strength, with significant challenge with quadruped activities. Plan: Continue progressing as tolerated. Progress core strengthening, hip abd & ER strengthening. Time in: 1644 Time out: 1731 Nathalia Rodas PT, DPT, COMT documented in this encounter Plan of Treatment Not on file documented as of this encounter Visit Diagnoses Diagnosis Left hip pain- Primary Pain in joint, pelvic region and thigh Unilateral primary osteoarthritis, left hip Primary osteoarthritis of left hip documented in this encounter Care Teams Plunger Shovel Operator Relationship Specialty Start Date End Date Laureano Lantigua MD [address] [place] [address] PCP - General Internal Medicine 07/30/18 Tony Washington MD [address] [facility] [address] [place] [address] Electronic Typesetting Machine Operator Obstetrics and Gynecology 11/16/18 Anahy Rosales MD [address] [facility] [address] [place] [address] Referring Physician Psychiatry 11/16/18 Nathalia Rodas PT Physical Therapist Physical Therapy 02/14/23 documented as of this encounter
--- OUTSIDE RECORDS SUMMARY | 2024-11-15 03:24 | XMS_ITS | Encounter Summary ---
Author Organization [facility] Address [address] [place] [address] Phone Care Team Providers Care Press Tool Maker Name Role Phone Laureano Lantigua MD Primary Care Provider [phone] Tony Washington MD Unavailable [phone] Anahy Rosales MD Unavailable [phone] Nathalia Rodas PT Unavailable Unavailable Reason for Referral * Diagnostic Imaging (Routine) - Closed Specialty Diagnoses / Procedures Referred By Contac t Referred To Contact Diagnoses Left hip pain Procedures XR Pelvis 1 or 2 Views Chidi Beltran MD [address] [facility] /6B/12A [place] [address] Phone: tel: fax: [address] [address] Referral ID Status Reason Start Date Expiration Date Visits Re quested Visits Authorized [id number] Closed 08/13/2023 09/11/2024 1 1 Reason for Visit * Reason Comments Pain * Consultation (Routine) - Closed Specialty Diagnoses / Procedures Referred By Contac t Referred To Contact Orthopedic Surgery Diagnoses Pain in left hip Primary osteoarthritis of left hip Tear of left acetabular labrum, initial encounter Teddy Toussaint MD [address] [place] [address] Phone: tel: fax: Donald Kaufman MD [address] [place] [address] Phone: tel: fax: Referral ID Status Reason Start Date Expiration Date V isits Requested Visits Authorized [id number] Closed Specialty Services Required 07/25/2023 08/23/2024 1 1 Encounter Details Date Type Department Care Team (Late st Contact Info) Description 08/18/2023 10:00 AM CDT Office Visit [facility] Orthopaedic Surgery [address] [place] [address] Chidi Beltran MD [address] [facility] 6A/6B/12A [place] [address] Primary osteoarthritis of left hip (Primary Dx); Left hip pain; Pain in left hip; Tear of left acetabular labrum, initial encounter; Lumbar radiculopathy Social History Tobacco Use Types Packs/Day Years [...] on file Legal Sex Female 1:37 AM PRESCHOOL ADVISER Gender Identity Female 10/03/2023 10:05 AM PRESCHOOL ADVISER Sexual Orientation Straight 10/03/2023 10 :05 AM PRESCHOOL ADVISER documented as of this encounter Progress Notes * Chidi Beltran MD - 08/18/2023 10:00 AM CDT Images from the original note were not included. NEW PATIENT VISIT CHIEF COMPLAINT: left hip pain HISTORY OF PRESENT ILLNESS: Finesse Ramirez is a 53 y.o. year old female with left hip pain. She has seen other providers who have told her she has spine issues and left sided ischiofemoral impingement. She has left groin pain and also pain that radiates to knee and separate pain that radiates to foot. She has tried injectoins, nsaids, pt. PAST MEDICAL HISTORY: has a past medical history of Anxiety, Asthma, Cancer ([facility]/HCC) ([facility]) (2020), Female infertility, Fibrocystic breast, GERD (gastroesophageal reflux disease), Hammer toe, OTHER MEDICAL, OTHER MEDICAL,OTHER MEDICAL, OTHER MEDICAL, Hypercholesterolemia, Hypertension, Motion sickness, and Retinal detachment. She has no past medical history of Awareness under anesthesia, Delayed emergence from general anesthesia, Hard to intubate, Malignant hyperthermia, PONV (postoperative nausea and vomiting), Seizures ([facility]), or Stroke ([facility]). PAST SURGICAL HISTORY: has a past surgical history that includes Foot surgery (Bilateral); Carpal tunnel release (Bilateral); Other surgical history; Other surgical history; Other surgical history; Other surgical history; Spinal fusion (2010); Other surgical history (2007); Rotator cuff repair (Left); Ankle surgery (Left, 2007); Other surgical history (2003); Shoulder surgery (Left); Cholecystectomy (03/2018); Elbow surgery (Left, 11/07/2020); Colonoscopy (03/27/2021); Mohs surgery (07/2021); Sleeve Gastroplasty; Cardiac catheterization (2012); Combined hysteroscopy diagnostic / D&C (03/12/2023); and Endometrial ablation (03/12/2023). MEDICATIONS: Current Outpatient Medications on File Prior to Visit Medication Sig Dispense Refill albuterol HFA (PROVENTIL HFA,VENTOLIN HFA,PROAIR HFA) 90 mcg/actuation inhaler 2 puffs qid prn 1 each 11 busPIRone (BUSPAR) 10 mg tablet Take 1 tablet (10 mg total) by mouth daily as needed (anxiety) 30 tablet 5 carisoprodoL (SOMA) 350 mg tablet Take 1 tablet (350 mg total) by mouth nightly as needed for muscle spasms 15 tablet 0 estradioL (VIVELLE-DOT) 0.05 mg/[address] one patch on the skin twice weekly 24 patch 3 ferrous sulfate 325 mg (65 mg of elemental iron) tablet Take 1 tablet (325 mg total) by mouth dailywith breakfast magnesium amino acid chelate (mag amino acid chelate, bulk,) 20 % powder magnesium phosphate, bulk, powder methylphenidate ER (CONCERTA) 27 mg CR tablet Take 1 tablet (27 mg total) by mouth every morning oxyCODONE-acetaminophen (PERCOCET) 5-325 mg per tablet Take 1 tablet by mouth every 8 (eight) hoursas needed for pain 20 tablet 0 progesterone (PROMETRIUM) 200 mg capsule One pill for 12 days every 3 months. 12 capsule 3 traZODone (DESYREL) 50 mg tablet Take 1 tablet (50 mg total) by mouth nightly UNABLE TO FIND Med Name: Prebiotic Plus [DISCONTINUED] ibuprofen (ADVIL,MOTRIN) 600 mg tablet Take 1 tablet (600 mg total) by mouth every 6(six) hours as needed for pain (pain) 30 tablet 0 No current facility-administered medications on file prior to visit. ALLERGIES: Allergies Allergen Reactions Erythromycin Rash Reaction: Rash, Morphine Nausea only and Vomiting Reaction: Nausea, Vomiting, , Reaction: Nausea, Vomiting, , Vicodin [Hydrocodone-Acetaminophen] Vomiting . SOCIAL HISTORY: Social History Tobacco Use Smoking status: Never Smokeless tobacco: Never Substance and Sexual Activity Drug use: No Sexual activity: Yes control/protection: None Alcohol Use: Heavy Drinker (03/10/2023) AUDIT-C Frequency of Alcohol Consumption: 2-4 times a month Average Number of Drinks: 3 or 4 Frequency of Binge Drinking: Not on file FAMILY HISTORY: family history includes Diabetes in an other family member; Heart attack in her cousin, father, andmaternal grandfather; Heart disease in her father and another family member; Hyperlipidemia in her father; Hypertension in her maternal grandmother and mother; Prostate cancer in her maternal grandfather. REVIEW OF SYSTEMS: Constitutional: Negative for chills, activity change and appetite change. HENT: Negative. Eyes: Negative. Respiratory: Negative. Cardiovascular: Negative. Gastrointestinal: Negative. Genitourinary: Negative. Musculoskeletal: per HPI Skin: Negative. Neurological: Negative. Psychiatric/Behavioral: Negative. PHYSICAL EXAM: Vitals: Height: Weight: BMI: There is no height or weight on file to calculate BMI. General: Awake, alert, oriented to person, place, and time. Affect is normal. Hearing is normal to the spoken word. Breathing is unlabored. left Hip Patient walks with an antalgic gait. Examination of the left hip demonstrates skin is intact with no prior incisions. Patient has a positive logroll test and Stinchfield test. The patient has flexionup to 100 degrees. At 90 degrees, patient has 20 IR and 40 ER. The patient has significant pain with gentle passive range of motion of the hip. Patient is not tender over the greater trochanter, posterior buttock, SI joint, or low back. Extremities: Vascular: The dorsalis pedis pulse is palpable bilaterally. There is good perfusion of both feet with good capillary refill. Neurologic: The distal motor and sensory exam is grossly normal without appreciable deficit bilaterally. Intact extensor hallucis longus, flexor hallucis longus, tibialis anterior, and gastrocnemius soleus complex. RADIOGRAPHS: The AP pelvis and 3 radiographic views of the left hip demonstrate mild osteoarthritis with joint space narrowing, subchondral cyst formation, sclerosis and osteophyte formation. MRI report available today (no actual images) indicating mild OA and ischiofemoral impingement. MRInot available for review. IMPRESSION: 53 y.o. year old female with mild osteoarthritis of the left hip, MRI report of ischiofemoral impingement, and radicular sxs PLAN: - I discussed with patient that she has mild hip findings and prior non response to hip injection. This makes it less likely her sxs are of hip etiology. 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 ischiofemoral impingement and will refer her to Dr Abdalla for another opinion - I do think she has spinal pathology and will refer to PMR for work up and [facility] referral to spine service - fu with me jairo Beltran MD/MARGARITA Criminal Justice Teacher of Orthopaedic Surgery Adult Hip and Knee Reconstruction documented in this encounter Miscellaneous Notes * Addendum Note - Sarah Beth Vargas CMA - 08/18/2023 10:00 AM CDTAddended by: SARAH BETH VARGAS on: 08/18/2023 10:36 AM Modules accepted: Orders documented in this encounter Plan of Treatment Not on file documented as of this encounter Results * XR Pelvis 1 [...] documented in this encounter Visit Diagnoses Diagnosis Primary osteoarthritis of left hip- Primary Left hip pain Pain in joint, pelvic region and thigh Pain in left hip Tear of left acetabular labrum, initial encounter Lumbar radiculopathy Thoracic or lumbosacral neuritis or radiculitis, unspecified Left hip pain Pain in joint, pelvic region and thigh documented in this encounter Discontinued Medications Medication Sig Discontinue Reason Start Date End Da te ibuprofen (ADVIL,MOTRIN) 600 mg tablet Take 1 tablet (600 mg total) by mouth every 6 (six) hours as needed for pain (pain) Therapy completed 03/12/2023 08/18/2023 documented as of this encounter Orders Outpatient Referral Count Last Ordered Date Fir st Ordered Date AMB REFERRAL TO ORTHOPEDIC RECON HIP/KNEE 1 08/18/2023 documented in this encounter Care Teams Press Tool Maker Relationship Specialty Start Date End Date Laureano Lantigua MD [address] [place] [address] PCP - General Internal Medicine 07/30/18 Tony Washington MD [address] [facility] [address] [place] [address] Welfare Eligibility Worker Obstetrics and Gynecology 11/16/18 Anahy Rosales MD [address] [place] [address] [address] [place] [address] Referring Physician Psychiatry 11/16/18 Nathalia Rodas, PT Physical Therapist Physical Therapy 02/14/23 documented as of this encounter
--- OUTSIDE RECORDS SUMMARY | 2024-11-15 03:24 | XMS_ITS | Encounter Summary ---
Author Organization [facility] Healthcare Address [address] [place] [address] Care Team Providers Care Press Technician Name Role Phone Laureano Lantigua MD Primary Care Provider [phone] Tony Washington MD Unavailable [phone] Anahy Rosales MD Unavailable [phone] Nathalia Rodas PT Unavailable Unavailable Encounter Details Date Type Department Care Team (Late st Contact Info) Description 07/23/2023 Orders Only [facility] [address] [place] [phone] Scanning, Provider Social History Tobacco Use Types [...] on file Legal Sex Female 1:37 AM LACQUER SHADER Gender Identity Female 10/03/2023 10:05 AM LACQUER SHADER Sexual Orientation Straight 10/03/2023 10 :05 AM LACQUER SHADER documented as of this encounter Plan of Treatment Not on file documented as of this encounter Procedures Procedure Name Priority Date/Time Associated Diagnosis Comments SCAN - RADIOLOGY/IMAGING 07/23/2023 documented in this encounter Results * SCAN - RADIOLOGY/IMAGING (07/23/2023) Anatomical Region Laterality Modality Other us Provider Scanning Final Result documented in this encounter Visit Diagnoses Not on filedocumented in this encounter Care Teams Press Technician Relationship Specialty Start Date End Date Laureano Lantigua MD [address] [place] [address] PCP - General Internal Medicine 07/30/18 Tony Washington MD [address] [place] [address] [place] [address] Air Support Control Officer Obstetrics and Gynecology 11/16/18 Anahy Rosales MD [address] [place] [address] [place] [address] Referring Physician Psychiatry 11/16/18 Nathalia Rodas, HENRY Physical Therapist Physical Therapy 02/14/23 documented as of this encounter
--- OUTSIDE RECORDS SUMMARY | 2024-11-15 03:24 | XMS_ITS | Encounter Summary ---
Author Organization [facility] Healthcare Address [address] [place] [address] Care Team Providers Care Globe Tester Name Role Phone Laureano Lantigua MD Primary Care Provider [phone] Tony Washington MD Unavailable [phone] Anahy Rosales MD Unavailable [phone] Nathalia Rodas PT Unavailable Unavailable Reason for Visit * Reason Comments PT Treatment PT Discharge * Consultation (Routine) - Closed Specialty Diagnoses / Procedures Referred By Contac t Referred To Contact Physical Therapy Diagnoses Unilateral primary osteoarthritis, left hip Teddy Toussaint MD [address] [facility] [address] [place] [address] Phone: tel: fax: [address] [address] Referral ID Status Reason Start Date Expiration Date V isits Requested Visits Authorized [id number] Closed Specialty Services Required 01/28/2023 02/27/2024 12 12 Encounter Details Date Type Department Care Team (Late st Contact Info) Description 05/02/2023 4:45 PM CDT Therapy [facility] [place] [address] Nathalia Rodas, PT Left hip pain (Primary [...] on file Legal Sex Female 1:37 AM BUSINESS PROCESS ASSOCIATE Gender Identity Female 10/03/2023 10:05 AM BUSINESS PROCESS ASSOCIATE Sexual Orientation Straight 10/03/2023 10 :05 AM BUSINESS PROCESS ASSOCIATE documented as of this encounter Progress Notes * Nathalia Rodas, PT - 05/02/2023 4:45 PM CDT PT Treatment and PT Discharge 05/02/23 Finesse Ramirez 1970 ICD-9-CM ICD-10-CM 1. Left hip pain 719.45 M25.552 2. Primary osteoarthritis of left hip 715.15 M16.12 3. Unilateral primary osteoarthritis, left hip 715.15 M16.12 Subjective: Finesse is having increased anterior groin pain and posterior hip pain today, limping into the clinic. Pain increased while on her flight and while in [place]. She had a stint of use of steroid for other medical concern which made significant improvements, however pain has returned since ending steroid. Objective: See previous note Treatment Provided: Prone [...] TA recruitment with marching; [id number] Assessment: Continued posterior and groin pain at end of session with increased muscle tension noted. Encouraged to continue to stretch and perform soft tissue techniques, as well as encouraged to follow up withortho to determine further steps in pain relief due to minimal changes in hip pain. Plan: DC from therapy at this time, with encouragement to follow up with ortho Time in: 1709 Time out: 1729 Nathalia Rodas PT, DPT, COMT documented in this encounter Plan of Treatment Not on file documented as of this encounter Visit Diagnoses Diagnosis Left hip pain- Primary Pain in joint, pelvic region and thigh Unilateral primary osteoarthritis, left hip Primary osteoarthritis of left hip documented in this encounter Care Teams Globe Tester Relationship Specialty Start Date End Date Laureano Lantigua MD [address] [address] PCP - General Internal Medicine 07/30/18 Tony Washington MD [address] [place] [address] [address] [place] [address] Air Brake Adjuster Obstetrics and Gynecology 11/16/18 Anahy Rosales MD [address] [place] [address] [place] [address] Referring Physician Psychiatry 11/16/18 Nathalia Rodas PT Physical Therapist Physical Therapy 02/14/23 documented as of this encounter
--- OUTSIDE RECORDS SUMMARY | 2024-11-15 03:24 | XMS_ITS | Encounter Summary ---
Author Organization [facility] Healthcare Address [address] [place] [address] Care Team Providers Care Mineral Surveying Technician Name Role Phone Laureano Lantigua MD Primary Care Provider [phone] Tony Washington MD Unavailable [phone] Anahy Rosales MD Unavailable [phone] Nathalia Rodas PT Unavailable Unavailable Reason for Referral * Diagnostic Imaging (Routine) - Closed Specialty Diagnoses / Procedures Referred By Jesse santana Referred To Contact Diagnoses Left hip pain Procedures XR Hip Left 2 or 3 Views W Pelvis Cecilia Conn MD [address] [facility] 6A/6B/12A [place] [address] Phone: tel: fax: [facility] Radiology [address] [place] [address] Phone: tel: Referral ID Status Reason Start Date Expiration Date Visits Re quested Visits Authorized [id number] Closed 09/07/2023 10/06/2024 1 1 Reason for Visit * Diagnostic Imaging (Routine) - Closed Specialty Diagnoses / Procedures Referred By Contac t Referred To Contact Diagnoses Left hip pain Procedures XR Hip Left 2 or 3 Views W Pelvis Cecilia Conn MD [address] [facility] 6A/6B/12A [place] [address] Phone: tel: fax: [facility] [address] [place] [address] Phone: tel: Referral ID Status Reason Start Date Expiration Date Visits Re quested Visits Authorized [id number] Closed 09/07/2023 10/06/2024 1 1 Encounter Details Date Type Department Care Team (Latest Contact Info) Description 09/10/2023 9:30 AM CDT - 09/10/2023 11:59 PM CDT Hospital Encounter [facility] [address] [facility] [address] [place] [address] Left hip pain Discharge Disposition: Discharge to [...] on file Legal Sex Female 1:37 AM YARD COORDINATOR Gender Identity Female 10/03/2023 10:05 AM YARD COORDINATOR Sexual Orientation Straight 10/03/2023 10 :05 AM YARD COORDINATOR documented as of this encounter Medications at [...] VIEWS Schedule Routine, Read Routine (OP Routine) 09/10/2023 10:16 AM CDT Left hip pain documented in [...] thigh documented in this encounter Care Teams Mineral Surveying Technician Relationship Specialty Start Date End Date Laureano Lantigua MD [address] [place] [address] PCP - General Internal Medicine 07/30/18 Tony Washington MD [address] [facility] [address] [place] [address] Photo Booth Operator Obstetrics and Gynecology 11/16/18 Anahy Rosales MD [address] [place] [address] [place] [address] Referring Physician Psychiatry 11/16/18 Nathalia Rodas, PT Physical Therapist Physical Therapy 02/14/23 documented as of this encounter
--- OUTSIDE RECORDS SUMMARY | 2024-11-15 03:24 | XMS_ITS | Encounter Summary ---
Author Organization [facility] Address [address] [address] Care Team Providers Care Car Pick Up Driver Name Role Phone Laureano Lantigua MD Primary Care Provider [phone] Tony Washington MD Unavailable [phone] Anahy Rosales MD Unavailable [phone] Nathalia Rodas PT Unavailable Unavailable Reason for Visit * Reason Onset Date Comments med refill 03/12/2023 Encounter Details Date Type Department Care Team (Late st Contact Info) Description 03/12/2023 Telephone [facility] [address] [place] [id number] Laureano Lantigua MD [address] [address] med refill Social History Tobacco Use Types Packs/Day Years [...] on file Legal Sex Female 1:37 AM RESEARCH CLERK Gender Identity Female 10/03/2023 10:05 AM RESEARCH CLERK Sexual Orientation Straight 10/03/2023 10 :05 AM RESEARCH CLERK documented as of this encounter Ordered Prescriptions Prescription Sig Dispense Quantity Refills Last Filled Start Date End Date oxyCODONE-acetamin ophen (PERCOCET) 5-325 mg per tabletIndications: Pain Take 1 tablet by mouth every 8 (eight) hours as needed for pain 20 tablet 03/13/2023 10/07/2023 documented in this encounter Miscellaneous Notes * Telephone Encounter - Tatyana Akbar RN - 03/13/2023 10:49 AM CDT Rx sent to [facility] for approval * Telephone Encounter - Laureano Lantigua MD - 03/13/2023 10:35 AM CDT OK TO FILL I SPOKE WITH HER SHE WILL NEED TO MAKE AN APPT BY SEP 2023 * Telephone Encounter - Neftali Chavez RN - 03/12/2023 12:02 PM CDT See below Pt ref req Percocet 5-325mg q8h prn #20 Last ref 01-04-23 Last ov 09-26-22 Next ov-not scheduled Please note Pt had procedure by Dr Washington 03-12-23 * Telephone Encounter - Angelita Watts - 03/12/2023 11:37 AM CDT Patient is wanting a refill on Percocet 5/325 mg CBN: [phone] Pharmacy: [facility] in [place] documented in this encounter Plan of Treatment Not on file documented as of this encounter Visit Diagnoses Not on filedocumented in this encounter Discontinued Medications Medication Sig Discontinue Reason Start Date End Da te oxyCODONE-acetaminophen (PERCOCET) 5-325 mg per tabletIndications:Pain Take 1 tablet by mouth every 8 (eight) hours as needed for pain Reorder 01/04/2022 03/12/2023 documented as of this encounter Care Teams Car Pick Up Driver Relationship Specialty Start Date End Date Laureano Lantigua MD [address] [place] [address] PCP - General Internal Medicine 07/30/18 Tony Washington MD [address] [facility] [address] [place] [address] Station Cleaning Porter Obstetrics and Gynecology 11/16/18 Anahy Rosales MD [address] [place] [address] [address] [place] [address] Referring Physician Psychiatry 11/16/18 Nathalia Rodas, PT Physical Therapist Physical Therapy 02/14/23 documented as of this encounter
--- OUTSIDE RECORDS SUMMARY | 2024-11-15 03:24 | XMS_ITS | Encounter Summary ---
Author Organization [facility] Healthcare Address [address] [place] [address] Care Team Providers Care Systems Support Specialist Name Role Phone Laureano Lantigua MD Primary Care Provider [phone] Tony Washington MD Unavailable Anahy Rosales MD Unavailable [phone] Nathalia Rodas PT Unavailable Unavailable Reason for Visit * MRI/CAT/PET Scan (Routine) - Closed Specialty Diagnoses / Procedures Referred By Contac t Referred To Contact Procedures MSK MR Outside Reference Cecilia Conn MD [address] [facility] 6A/6B/12A [place] [address] Phone: tel: fax: Referral ID Status Reason Start Date Expiration Date Visits Re quested Visits Authorized [id number] Closed 09/11/2023 10/10/2024 1 1 Encounter Details Date Type Department Care Team (Latest Contact Info) Description 09/11/2023 12:13 AM CDT - 09/11/2023 11:59 PM CDT Hospital Encounter [facility] Imaging [address] [place] [address] Discharge Disposition: Discharge to home or self [...] file Legal Sex Female 1:37 AM SALES SERVICE MANAGER Gender Identity Female 10/03/2023 10:05 AM SALES SERVICE MANAGER Sexual Orientation Straight 10/03/2023 10 :05 AM SALES SERVICE MANAGER documented as of this encounter Medications [...] Procedure Name Priority Date/Time Associated Diagnosis Comments MSK MR OUTSIDE REFERENCE Routine 09/11/2023 12:13 AM CDT documented in this encounter Results * MSK MR Outside Reference (09/11/2023 12:13 AM CDT) Impressions [facility] - 09/11/2023 12:13 AM CDT These images are for Reference purposes only and have not been reviewed by [facility] Radiology. ??There will be no report generated by a [facility] Radiologist. Narrative RAD_[facility] - 09/11/2023 12:13 AM CDT EXAMINATION: ??Images For Reference Purposes Only us Cecilia Ruggiero MD IMG MRI PROCEDURES Fi nal Result [facility] documented in this encounter Visit Diagnoses Not on filedocumented in this encounter Care Teams Systems Support Specialist Relationship Specialty Start Date End Date Laureano Lantigua MD [address] [place] [address] PCP - General Internal Medicine 07/30/18 Tony Washington MD [address] [place] [address] [address] [place] [address] Paver Layer Obstetrics and Gynecology 11/16/18 Anahy Roasles MD [address] [place] [address] [address] [place] [address] Referring Physician Psychiatry 11/16/18 Nathalia Rodas, PT Physical Therapist Physical Therapy 02/14/23 documented as of this encounter
--- OUTSIDE RECORDS SUMMARY | 2024-11-15 03:25 | XMS_ITS | Encounter Summary ---
Author Organization [facility] Healthcare Address [address] [place] [address] Care Team Providers Care Perishable Freight Inspector Name Role Phone Laureano Lantigua MD Primary Care Provider [phone] Tony Washington MD Unavailable [phone] Anahy Rosales MD Unavailable [phone] Encounter Details Date Type Department Care Team (Latest Contact Info) Description 09/26/2022 4:23 PM INSIDE SALES PROFESSIONAL - 09/26/2022 11:59 PM INSIDE SALES PROFESSIONAL Hospital Encounter [address] [id number] Joint pain in both hands Discharge Disposition: Discharge to home or self care Social History Tobacco Use Types Packs/Day Years Used Date Smoking Tobacco: Never Smokeless Tobacco: Never Alcohol Use Standard Drinks/Week Comments Yes 0 (1 standard drink = 0.6 oz pur e alcohol) PHQ-2 Answer Date Recorded PHQ-2 Total Score (If total score is 3 or more points, staff should administer the PHQ-9) 0 01/22/2022 Comments No Sex and Gender Information Value Date Recorded Sex Assigned at Not on file Legal Sex Female 1:37 AM INSIDE SALES PROFESSIONAL Gender Identity Female 10/03/2023 10:05 AM INSIDE SALES PROFESSIONAL Sexual Orientation Straight 10/03/2023 10 :05 AM INSIDE SALES PROFESSIONAL documented as of this encounter Medications at Time of Discharge albuterol HFA (PROVENTIL HFA,VENTOLIN HFA,PROAIR HFA) 90 mcg/actuation inhaler 2 puffs qid prn 1 each 01/04/2022 ferrous sulfate 325 mg (65 mg of elemental iron) tabletIndication s:Iron Deficiency Anemia Take 1 tablet (325 mg total) by mouth daily with breakfast biotin (APPEAREX) 2,500 mcg tablet 2,500 mcg. 0 10/26/2010 3 busPIRone (BUSPAR) 10 mg tablet Take 1 tablet (10 mg total) by mouth daily as needed (anxiety) 30 tablet 5 10/18/2021 4 carisoprodoL (SOMA) 350 mg tabletIndication s:Muscle Spasm Take 1 tablet (350 mg total) by mouth nightly as needed for muscle spasms 15 tablet 01/09/2022 3 liraglutide, weight loss, 3 mg/0.5 mL (18 mg/3 mL) pen injector Inject 2.4 mg under the skin daily 3 methylphenidate ER (CONCERTA) 18 mg CR tablet Take 18 mg by mouth daily 09/13/2019 3 multivitamin (MULTIPLE VITAMINS) tablet tablet take 1 tablet by oral route every day with food 0 0 01/16/2015 3 oxyCODONE-acetam inophen (PERCOCET) 5-325 mg per tabletIndication s:Pain Take 1 tablet by mouth every 8 (eight) hours as needed for pain 20 tablet 01/04/2022 3 triamcinolone (KENALOG) 0.1 % ointment Apply topically 2 (two) times a day as needed for irritation or rash 60 g 01/04/2022 3 documented as of this encounter Discharge Disposition Disposition Code Departure Means Destination Discharge to home or self care documented in this encounter Plan of Treatment Not on file documented as of this encounter Procedures Procedure Name Priority Date/Time Associated Diagnosis Comments MARY ELLEN QUALITATIVE WITH REFLEX TO MARY ELLEN QUANTITATIVE Routine 09/26/2022 4:23 PM INSIDE SALES PROFESSIONAL Joint pain in both hands CYCLIC CITRUL PEPTIDE ANTIBODY, IGG Routine 09/26/2022 4:23 PM INSIDE SALES PROFESSIONAL Joint pain in both hands TISSUE TRANSGLUTAMINASE, IGA Routine 09/26/2022 4:23 PM INSIDE SALES PROFESSIONAL Joint pain in both hands ERYTHROCYTE SEDIMENTATION RATE Routine 09/26/2022 4:23 PM INSIDE SALES PROFESSIONAL Joint pain in both hands RHEUMATOID FACTOR Routine 09/26/2022 4:2 3 PM INSIDE SALES PROFESSIONAL Joint pain in both hands documented in this encounter Results * Rheumatoid factor (09/26/2022 4:23 PM INSIDE SALES PROFESSIONAL) Rheumatoid factor, quant 12 <=15 IUnits/mL [facility] Blood 09/26/2022 4:23 PM INSIDE SALES PROFESSIONAL 09/26/2022 8:03 PM INSIDE SALES PROFESSIONAL Laureano Lantigua MD LAB BLOOD ORDERABLES Final Result Performing Organization Address [facility] Co de Phone Number [facility] [address] [place] [address] * Cyclic citrul peptide antibody, IgG (09/26/2022 4:23 PM INSIDE SALES PROFESSIONAL) CCP Ab <0.5 <=2.9 units/mL [facility] Comment: Interpretive data Negative: <3 units/mL Positive: > or equal to 3 units/mL Current interpretive data was last revised on 2017. Testing performed by: [facility], [address] [place]., [address] Blood 09/26/2022 4:23 PM INSIDE SALES PROFESSIONAL 09/27/2022 11:48 AM INSIDE SALES PROFESSIONAL Laureano India Lantigua MD LAB BLOOD ORDERABLES Final Result [facility] [address] [place] [address] * Tissue transglutaminase IgA (TGG-IgA Ab) (09/26/2022 4:23 PM INSIDE SALES PROFESSIONAL) TTG ab, IgA <0.5 <=14.9 units/mL [facility] Comment: Interpretive data Negative: <15 units/mL Positive: > or equal to 15 units/mL Current interpretive data was last revised on 2017. Testing performed by: [facility], [address] [place]., [address] Blood 09/26/2022 4:23 PM INSIDE SALES PROFESSIONAL 09/27/2022 11:48 AM INSIDE SALES PROFESSIONAL Laureano Lantigua MD LAB BLOOD ORDERABLES Final Result Performing Organization Address City/[facility] Co de Phone Number [facility] [address] [place] [address] * Erythrocyte sedimentation rate (09/26/2022 4:23 PM INSIDE SALES PROFESSIONAL) Pathologist [facility] Erythrocyte sedimentation rate 6 1 - 30 mm/hr [facility] Blood 09/26/2022 4:23 PM INSIDE SALES PROFESSIONAL 09/26/2022 8:03 PM INSIDE SALES PROFESSIONAL Result [facility] Laureano Lantigua MD LAB BLOOD ORDERABLES Final Result Performing Organization Address [facility] de Phone Number [facility] [address] [facility] [place] [address] * MARY ELLEN qualitative with reflex to MARY ELLEN Quantitative (09/26/2022 4:23 PM INSIDE SALES PROFESSIONAL) Pathologist [facility] MARY ELLEN Negative Negative [facility] Comment: Interpretive Data Normal range for MARY ELLEN Qualitative Antibody = Negative. 1. MARY ELLEN is performed using indirect immunofluorescence against HEp-2 ?? cells 2. MARY ELLEN titers are performed on all positive qualitative results. 3. A significantly positive MARY ELLEN result is defined as a positive nuclear ?? fluorescence at a titer of 1:80 or greater. 4. 15% of normal people above age 65 have significantly positive ?? MARY ELLEN results. ??5% or less of normal people age 65 or under have ?? significantly positive MARY ELLEN results. Current interpretive data was last revised on 21. Blood 09/26/2022 4:23 PM INSIDE SALES PROFESSIONAL 09/26/2022 8:03 PM INSIDE SALES PROFESSIONAL Laureano Lantigua MD LAB BLOOD ORDERABLES Final Result [facility] [address] [facility] [place] [address] documented in this encounter Visit Diagnoses Diagnosis Joint pain in both hands documented in this encounter Care Teams Perishable Freight Inspector Relationship Specialty Start Date End Date Laureano Lantigua MD [address] [place] [address] PCP - General Internal Medicine 07/30/18 Tony Washington MD [address] [place] [address] Operational Risk Manager Obstetrics and Gynecology 11/16/18 Anahy Rosales MD [address] [place] [address] Referring Physician Psychiatry 11/16/18 documented as of this encounter
--- OUTSIDE RECORDS SUMMARY | 2024-11-15 03:25 | XMS_ITS | Encounter Summary ---
Author Organization [facility] Healthcare Address [address] [place] [address] Care Team Providers Care Store Team Leader Name Role Phone Laureano Lantigua MD Primary Care Provider [phone] Tony Washington MD Unavailable [phone] Anahy Rosales MD Unavailable [phone] Nathalia Rodas PT Unavailable Unavailable Reason for Visit * Reason Comments PT Treatment * Consultation (Routine) - Closed Specialty Diagnoses / Procedures Referred By Contмаряи t Referred To Contact Physical Therapy Diagnoses Unilateral primary osteoarthritis, left hip Teddy Toussaint MD [address] [facility] [address] [place] [address] Phone: tel:[phone] fax: [address] [phone] Referral ID Status Reason Start Date Expiration Date V isits Requested Visits Authorized [id number] Closed Specialty Services Required 01/28/2023 02/27/2024 12 12 Encounter Details Date Type Department Care Team (Late st Contact Info) Description 03/03/2023 6:15 PM CDT Therapy [facility] [place] [address] Nathalia Rodas, PT Left hip pain (Primary [...] on file Legal Sex Female 1:37 AM SCENARIO WRITER Gender Identity Female 10/03/2023 10:05 AM SCENARIO WRITER Sexual Orientation Straight 10/03/2023 10 :05 AM SCENARIO WRITER documented as of this encounter Progress Notes * Nathalia Rodas PT - 03/03/2023 6:15 PM CDT PT Treatment 02/26/2023 Finesse Ramirez 1970 ICD-9-CM ICD-10-CM 1. Left hip pain 719.45 M25.552 2. Primary osteoarthritis of left hip 715.15 M16.12 3. Unilateral primary osteoarthritis, left hip 715.15 M16.12 Subjective: Bailey reports pain 3/10 in her L hip today. She was painful all weekend, but heat and stretching helped to calm her symptoms down. Objective: See treatment provided Treatment Provided: Prone L/S CPA, sacral mob into ext STM paraspinals, L external rotators Prone passive hip IR/ER* Supine hip stretching Cat/cow* Quad rock* QPed TA contraction* Supine lumbar traction over yellow SB Supine BKTC on yellow SB Supine Marching Supine BKFO with red TB Supine nerve glide PPT Clamshells with Red TB Bladder log HEP: Cat/cow, quad rock, TA recruitment with marching; [id number] Assessment: Pt had better tolerance to treatment today. Added lumbar traction with good tolerance and progressed hip abductor strengthening. Plan: Continue progressing as tolerated. Progress core strengthening, hip abd & ER strengthening. Time in: 1814 Time out: 1856 Nathalia Rodas PT, DPT, COMT documented in this encounter Plan of Treatment Not on file documented as of this encounter Visit Diagnoses Diagnosis Left hip pain- Primary Pain in joint, pelvic region and thigh Unilateral primary osteoarthritis, left hip Primary osteoarthritis of left hip documented in this encounter Care Teams Store Team Leader Relationship Specialty Start Date End Date Laureano Lantigua MD [address] [facility] [place] [address] PCP - General Internal Medicine 07/30/18 Tony Washington MD [address] [place] [address] [address] [place] [address] [place] Marshal Obstetrics and Gynecology 11/16/18 Anahy Rosales MD [address] [place] [address] [address] [place] [address] Referring Physician Psychiatry 11/16/18 Nathalia Rodas, PT Physical Therapist Physical Therapy 02/14/23 documented as of this encounter
--- OUTSIDE RECORDS SUMMARY | 2024-11-15 03:25 | XMS_ITS | Encounter Summary ---
Author Organization [facility] Address [address] [address] Care Team Providers Care Senior Accounting Analyst Name Role Phone Laureano Lantigua MD Primary Care Provider [phone] Tony Washington MD Unavailable [phone] Anahy Rosales MD Unavailable [phone] Encounter Details Date Type Department Care Team (Late st Contact Info) Description 01/04/2022 4:20 PM GROUND WATER CONTRACTOR Lab [facility] [address] [place] [phone] Routine general medical examination at a health care facility; Irritable bowel syndrome with constipation; Flushing; Rash and other nonspecific skin eruption Social History Tobacco Use Types Packs/Day Years Used Date Smoking Tobacco: Never Smokeless Tobacco: Never Alcohol Use Standard Drinks/Week Comments Yes 0 (1 standard drink = 0.6 oz pur e alcohol) PHQ-2 Answer Date Recorded PHQ-2 Score 0 11/22/2019 Comments No Sex and Gender Information Value Date Recorded Sex Assigned at Not on file Legal Sex Female 1:37 AM GROUND WATER CONTRACTOR Gender Identity Female 10/03/2023 10:05 AM GROUND WATER CONTRACTOR Sexual Orientation Straight 10/03/2023 10 :05 AM GROUND WATER CONTRACTOR documented as of this encounter Plan of Treatment Not on file documented as of this encounter Visit Diagnoses Diagnosis Routine general medical examination at a [facility] Irritable bowel syndrome with constipation Irritable bowel syndrome Flushing Rash and other nonspecific skin eruption documented in this encounter Care Teams Senior Accounting Analyst Relationship Specialty Start Date End Date Laureano Lantigua MD [address] [place] [address] PCP - General Internal Medicine 07/30/18 Tony Washington MD [address] [place] [address] [address] [facility] [place] [address] Scientific Investigator Obstetrics and Gynecology 11/16/18 Anahy Rosales MD [address] [place] [address] [address] [facility] [place] [address] Referring Physician Psychiatry 11/16/18 documented as of this encounter
--- OUTSIDE RECORDS SUMMARY | 2024-11-15 03:25 | XMS_ITS | Encounter Summary ---
Author Organization [facility] Healthcare Address [address] [place] [address] Care Team Providers Care Postal Service Window Clerk Name Role Phone Laureano Lantigua MD Primary Care Provider [phone] Tony Washington MD Unavailable [phone] Anahy Rosales MD Unavailable [phone] Encounter Details Date Type Department Care Team (Late st Contact Info) Description 03/27/2021 12:00 PM CDT - 03/27/2021 12:30 PM CDT Surgery [facility] [address] [place] [address] Manuel Tanner MD [address] [place] [id number] COLONOSCOPY Surgery Details Date/Time Status Location OR Service Patient Class Case Class Case Type Trauma Case? 03/27/2021 12:00 PM Posted [facility] ENDOSCOPY GI 01 Gastroenterology Outpatient Elective Panel 1 Procedure LRB Anes Op Region Wound Class Comments COLONOSCOPY N/A Monitor Anesthesia Care Colon Surgeon Surgeon Role Service Panel Manuel Tanner MD Primary Gastroenterology 1 documented in this encounter Social History [...] on file Legal Sex Female 1:37 AM MATERIAL COORDINATOR Gender Identity Female 10/03/2023 10:05 AM MATERIAL COORDINATOR Sexual Orientation Straight 10/03/2023 10 :05 AM MATERIAL COORDINATOR documented as of this encounter Last Filed Vital Signs Vital Sign Reading Time Taken Comments Blood Pressure 129/69 03/27/2021 11:37 AM CDT Pulse 66 03/27/2021 11:37 AM CDT Temperature 36.8 ??C (98.3 ??F) 03/27/2021 11:37 AM C DT Respiratory Rate 16 03/27/2021 11:37 AM CDT Oxygen Saturation 98% 03/27/2021 11:37 AM CDT Inhaled Oxygen Concentration - - Weight 91.2 kg (201 lb) 03/27/2021 11:37 AM CDT Height 182.9 cm (6') 03/27/2021 11:37 AM CDT Body Mass Index 27.26 03/27/2021 11:37 AM CDT documented in this encounter Medications at Time of Discharge ferrous sulfate 325 mg (65 mg of elemental iron) tabletIndication s:Iron Deficiency Anemia Take 1 tablet (325 mg total) by mouth daily with breakfast albuterol HFA (PROVENTIL HFA,VENTOLIN HFA,PROAIR HFA) 90 mcg/actuation inhaler 2 puffs qid prn 1 Inhaler 11 01/01/2021 2 biotin (APPEAREX) 2,500 mcg tablet 2,500 mcg. 0 10/26/2010 3 busPIRone (BUSPAR) 10 mg tablet daily as needed 09/26/2020 1 carisoprodoL (SOMA) 350 mg tabletIndication s:Muscle Spasm Take 1 tablet (350 mg total) by mouth nightly as needed for muscle spasms 15 tablet 01/01/2021 2 liraglutide, weight loss, 3 mg/0.5 mL (18 mg/3 mL) pen injector Inject 2.4 mg under the skin daily 3 methylphenidate ER (CONCERTA) 18 mg CR tablet Take 18 mg by mouth daily 09/13/2019 3 multivitamin (MULTIPLE VITAMINS) tablet tablet take 1 tablet by oral route every day with food 0 0 01/16/2015 3 omeprazole (PriLOSEC) 20 mg capsule TAKE 1 CAPSULE BY MOUTH qd 5 03/31/2018 2 oxyCODONE-acetam inophen (PERCOCET) 5-325 mg per tabletIndication s:Pain Take 1 tablet by mouth every 8 (eight) hours as needed for pain 45 tablet 01/01/2021 2 sucralfate (CARAFATE) suspension 1 gram/10 mL Take 1 g by mouth. 03/31/2018 2 documented as of this encounter Discharge Disposition Disposition Code Departure Means Destination Discharge to home or self care documented in this encounter H&P Notes * Manuel Tanner MD - 03/27/2021 1:01 PM CDT History and Physical Date of visit: 03/27/2021 Subjective: Patient is a 51 y.o. female presented for evaluation for screening for colon cancer. No family history of colon cancer. The patient has issues with chronic constipation. Past Medical History: Diagnosis Date ??? Asthma Asthma; Comments: [facility] 06/27/2014 - ??? Female infertility Infertility, female ??? Fibrocystic breast ??? Hammer toe Hammer toe; Comments: [facility] 06/27/2014 - ??? HX OTHER MEDICAL Sinusitis, ADD, diverticulosis, obesity, OA, asthm ??? HX OTHER MEDICAL Depression, with Anxiety; PCOS ??? HX OTHER MEDICAL Missed Ab ??? HX OTHER MEDICAL ; Outcome: 37W0D week 7lb(s) 7 oz Male ??? Hypercholesterolemia High cholesterol; Comments: [facility] 06/27/2014 - ??? Hypertension Hypertension ??? Polycystic ovaries Polycystic ovary syndrome ??? Retinal detachment Detachment of retina; Comments: [facility] 06/27/2014 - Past Surgical History: Procedure Laterality Date ??? ANKLE SURGERY Ankle surgery ??? BREAST BIOPSY ??? CARPAL TUNNEL RELEASE Carpal tunnel release ??? CHOLECYSTECTOMY 03/2018 ??? COLONOSCOPY 03/27/2021 1st ??? ELBOW SURGERY 11/07/2020 ??? FOOT SURGERY left foot surgery ??? KNEE ARTHROPLASTY Knee replacement ??? OTHER SURGICAL HISTORY Left Rotator Cuff Repair, L. ankle surgery, back surgery x2 ??? OTHER SURGICAL HISTORY samuel carpal tunnel repair, eye surgery, ankle and foot surger ??? OTHER SURGICAL HISTORY retina re-attachment ??? OTHER SURGICAL HISTORY Missed Ab: Suction D&C ??? OTHER SURGICAL HISTORY Right ACL repair ??? OTHER SURGICAL HISTORY 2004 : 1 hr labor ??? ROTATOR CUFF REPAIR rotator cuff surgery ??? ROTATOR CUFF REPAIR Rotator cuff repair ??? SHOULDER SURGERY Left ??? SPINAL FUSION Spinal fusion Medications Prior to Admission Medication Sig Dispense Refill Last Dose ??? biotin (APPEAREX) 2,500 mcg tablet 2,500 mcg. 0 ??? busPIRone (BUSPAR) 10 mg tablet daily as needed ??? carisoprodoL (SOMA) 350 mg tablet Take 1 tablet (350 mg total) by mouth nightly as needed for muscle spasms 15 tablet 0 ??? ferrous sulfate 325 mg (65 mg of elemental iron) tablet Take 65 mg of elemental iron by mouth daily with breakfast. Past Month at Unknown time ??? methylphenidate ER (CONCERTA) 18 mg CR tablet Take 18 mg by mouth daily ??? omeprazole (PriLOSEC) 20 mg capsule TAKE 1 CAPSULE BY MOUTH qd 5 ??? oxyCODONE-acetaminophen (PERCOCET) 5-325 mg per tablet Take 1 tablet by mouth every 8 (eight) hours as needed for pain 45 tablet 0 ??? albuterol HFA (PROVENTIL HFA,VENTOLIN HFA,PROAIR HFA) 90 mcg/actuation inhaler 2 puffs qid prn 1 Inhaler 11 ??? liraglutide, weight loss, 3 mg/0.5 mL (18 mg/3 mL) pen injector Inject 2.4 mg under the skin daily ??? multivitamin (MULTIPLE VITAMINS) tablet tablet take 1 tablet by oral route every day with food 0 0 ??? sucralfate (CARAFATE) suspension 1 gram/10 mL Take 1 g by mouth. Allergies Allergen Reactions ??? Erythromycin Rash Reaction: Rash, ??? Morphine Nausea only and Vomiting Reaction: Nausea, Vomiting, , Reaction: Nausea, Vomiting, , ??? Vicodin [Hydrocodone-Acetaminophen] Vomiting Social History Tobacco Use ??? Smoking status: Never Smoker ??? Smokeless tobacco: Never Used Substance Use Topics ??? Alcohol use: Yes Family History Problem Relation Age of Onset [...] Grandmother Hypertension; ??? Diabetes Other Diabetes mellitus; Physical Exam: Patient is awake and answers well. Eyes: no jaundice. Lungs: CTA anteriorly. ENT: no mouth ulcers. Abdomen: soft, no distention, no tenderness, bowel sounds positive. Extremities: no edema. Skin: no rash. GI IMPRESSION: 1. Screening for colon cancer GI PLAN/RECOMMENDATIONS: 1. colonoscopy Manuel Tanner MD documented in this encounter Procedure Notes * Manuel Tanner MD - 03/27/2021 11:21 AM CDTAssociated Order(s): COLONOSCOPY [facility] Patient Name: Finesse Ramirez Procedure Date: 03/27/2021 11:21 AM Date of : 1970 Admit Type: Outpatient Age: 51 Gender: Female Attending MD: Manuel Tanner M.D. Room: [facility] ENDOSCOPY ROOM 1 Note Status: Finalized Patient Profile: This is a 51 year old female. No family history of colon cancer. She has issues with chronic constipation Procedure: Colonoscopy Indications: Screening for colorectal malignant neoplasm, This is the patient's first colonoscopy Referring MD: Laureano Lantigua M.D. Providers: Manuel Tanner M.D. Impression: - The entire examined colon is normal. - Mild diverticulosis in the distal sigmoid colon. - Internal hemorrhoids. - No specimens collected. Recommendation: - Repeat colonoscopy in 10 years for screening purposes. - Continue present medications. - Maintain high-fiber diet. Medicines: Monitored Anesthesia Care Complications: No immediate complications. Estimated Blood Loss: Estimated blood loss: none. Procedure: Pre-Anesthesia Assessment: - Prior to the procedure, a History and Physical was performed, and patient medications and allergies were reviewed. The patient's tolerance of previous anesthesia was also reviewed. The risks and benefits of the procedure and the sedation options and risks were discussed with the patient. All questions were answered, and informed consent was obtained. Prior Anticoagulants: The patient has taken no previous anticoagulant or antiplatelet agents. ASA Grade Assessment: II - A patient with mild systemic disease. After reviewing the risks and benefits, the patient was deemed in satisfactory condition to undergo the procedure. The benefits, risks and alternatives of the procedure and sedation were discussed and informed consent was obtained. All questions were answered. Please refer to the signed informed consent document in the medical record. The bowel preparation used was Miralax and bisacodyl tablets via split dose instruction. The scope was passed under direct vision. The Pediatric Colonoscope PCF-H190L [id number] was introduced through the anus and advanced to the the cecum, identified by appendiceal orifice and ileocecal valve. The quality of the bowel preparation was excellent. Bowel prep was administered using a split dose. Findings: The [...] 11:21 AM Procedure Code(s): --- Professional --- 95513, Colonoscopy, flexible; diagnostic, including collection of specimen(s) by brushing or washing, when performed (separate procedure) Diagnosis Code(s): --- Professional --- Z12.11, Encounter for screening for malignant neoplasm of colon K64.8, Other hemorrhoids K57.30, Diverticulosis of large intestine without perforation or abscess without bleeding CPT copyright 2019 [employer]. All rights reserved. The codes documented in this report are preliminary and upon it security specialist review may be revised to meet current compliance requirements. Recognized by the [employer] for promoting quality in endoscopy documented in this encounter Miscellaneous Notes * Perioperative Nursing Note - Debbie Rausch RN - 03/27/2021 1:[address] Tanner spoke with Patient and Family regarding today's procedure. He recommends a high fiber diet and to return in 8-10 years for another colon screening. documented in this encounter Plan of Treatment Not on file documented as of this encounter Procedures Procedure Name Priority Date/Time Associated Diagnosis Comments COLONOSCOPY 03/27/2021 12:29 PM CDT Screen for colon cancer POCT HCG, URINE Routine 03/27/2021 12:28 PM CDT COLONOSCOPY 03/27/2021 11:21 AM CDT documented in this encounter Results * POCT hCG, urine (03/27/2021 12:28 PM CDT) HCG, ur, POC Negative Lot Number [id number] QC Backgroud Clear Acceptable QC Control Line Acceptable Urine 03/27/2021 12:2 8 PM CDT Manuel Tanner MD POINT OF CARE TEST ORDERAB LES Final Result * COLONOSCOPY (03/27/2021 11:21 AM CDT) Anatomical Region Laterality Modality Other Narrative Procedure Note Manuel Tanner MD - 03/27/2021 11:21 AM CDT [facility] Patient Name: Finesse Ramirez Procedure Date: 03/27/2021 11:21 AM Date of : 1970 Admit Type: Outpatient Age: 51 Gender: Female Attending MD: Manuel Tanner M.D. Room: [facility]COPY RO[facility] 1 Note Status: Finalized Patient [...] under direct vision. The Pediatric Colonoscope PCF-H190L [id number] was introducedthrough the anus and advanced to [...] 11:21 AM Procedure Code(s): --- Professional --- 59117, Colonoscopy, flexible; diagnostic, including collection of specimen(s) by brushing or washing, when performed (separateprocedure) Diagnosis Code(s): --- Professional --- Z12.11, Encounter for screening for malignant neoplasm of colon K64.8, Other hemorrhoids K57.30, Diverticulosis of large intestine without perforation orabscess without bleeding CPT copyright 2019 [employer]. All rights reserved. The codes documented in this report are preliminary and upon it security specialist reviewmay be revised to meet current compliance requirements. Recognized by the [employer] for promoting quality in endoscopy Manuel Tanner MD ENDOSCOPY PROCEDURES Final Result documented in this encounter Visit Diagnoses Diagnosis Screen for colon cancer- Primary Special screening for malignant neoplasms, colon Screen for colon cancer Special screening for malignant neoplasms, colon documented in this encounter Admitting Diagnoses Diagnosis Screen for colon cancer Special screening for malignant neoplasms, colon documented in this encounter Administered Medications Inactive Administered Medications - up to 3 most recent administrations Medication Order MAR Action Action Date Dose Rate Site ondansetron (ZOFRAN) injection 4 mg 4 mg, intravenous, Administer over 2 Minutes, Every 30 min PRN, nausea, vomiting, Starting on Fri03/27/21 at 1126, For 2 doses, Recovery (GI), Indications: Nausea and VomitingIndications:Nausea and Vomiting sodium chloride 0.9% infusion 30 mL/hr, intravenous, Continuous, Starting on Fri03/27/21 at 1215, Pre-Procedure (GI) Restarted 03/27/2021 12:54 PM CDT New Bag 03/27/2021 12:00 PM CDT 30 mL/hr 30 mL/hr sodium chloride 0.9% infusion 125 mL/hr, intravenous, Continuous, Starting on Fri03/27/21 at 1200, Recovery (GI) documented in this encounter Active and Recently Administered Medications Times are shown in CDT. Continuous Medication Order 03/25/2021 03/26/2021 03/27/2021 sodium chloride 0.9% infusion 30 mL/hr, intravenous, Continuous, Starting on Fri03/27/21 at 1215, Pre-Procedure (GI) 1200 (New Bag - Prov ider: Debbie Rausch RN)1253 (Paused - Provider: Aneudy Cavazos CRNA - Comment: Switch to gravity)1254 (Restarted - Provider: Aneudy Cavazos CRNA) sodium chloride 0.9% infusion 125 mL/hr, intravenous, Continuous, Starting on Fri03/27/21 at 1200, Recovery (GI) 1200 (Due) PRN Medication Order 03/25/2021 03/26/2021 03/27/2021 ondansetron (ZOFRAN) injection 4 mg 4 mg, intravenous, Administer over 2 Minutes, Every 30 min PRN, nausea, vomiting, Starting on Fri03/27/21 at 1126, For 2 doses, Recovery (GI), Indications: Nausea and Vomiting documented in this encounter Orders Medications Ordered That Raul ht Not Have Been Administered Count Last Ordered Date First Ordered Date ondansetron (ZOFRAN) injection 4 mg 1 03/27 sodium chloride 0.9% infusion 1 03/27/2021 documented in this encounter Care Teams Postal Service Window Clerk Relationship Specialty Start Date End Date Laureano Lantigua MD [address] [place] [address] PCP - General Internal Medicine 07/30/18 Tony Washington MD [address] [address] Library Assistant Obstetrics and Gynecology 11/16/18 Anahy Rosales MD [address] [place] [address] Referring Physician Psychiatry 11/16/18 documented as of this encounter
--- OUTSIDE RECORDS SUMMARY | 2024-11-15 03:25 | XMS_ITS | Encounter Summary ---
Author Organization [facility] Medical Group Address [address] [address] Care Team Providers Care Melting Supervisor Name Role Phone Laureano Lantigua MD Primary Care Provider Tony Washington MD Unavailable [phone] Anahy Rosales MD Unavailable [phone] Reason for Visit * Reason Comments joint pain Encounter Details Date Type Department Care Team (Late st Contact Info) Description 09/26/2022 3:40 PM PEOPLESOFT HRMS DEVELOPER Office Visit [facility] [address] [facility] [place] [address] Laureano Lantigua MD [address] [place] [address] Joint pain in both hands (Primary Dx) Social History Tobacco Use Types [...] on file Legal Sex Female 1:37 AM PEOPLESOFT HRMS DEVELOPER Gender Identity Female 10/03/2023 10:05 AM PEOPLESOFT HRMS DEVELOPER Sexual Orientation Straight 10/03/2023 10 :05 AM PEOPLESOFT HRMS DEVELOPER documented as of this encounter Last Filed Vital Signs Vital Sign Reading Time Taken Comments Blood Pressure 142/80 09/26/2022 3:51 PM PEOPLESOFT HRMS DEVELOPER Pulse 82 09/26/2022 3:51 PM PEOPLESOFT HRMS DEVELOPER Temperature 36.4 ??C (97.5 ??F) 09/26/2022 3:51 PM CS T Respiratory Rate 12 09/26/2022 3:51 PM PEOPLESOFT HRMS DEVELOPER Oxygen Saturation 92% 09/26/2022 3:51 PM PEOPLESOFT HRMS DEVELOPER Inhaled Oxygen Concentration - - Weight 97.5 kg (215 lb) 09/26/2022 3:51 PM PEOPLESOFT HRMS DEVELOPER Height - - Body Mass Index 29.16 01/22/2022 10:13 AM PEOPLESOFT HRMS DEVELOPER documented in this encounter Patient Instructions * Patient Instructions* Laureano Lantigua MD - 09/26/2022 3:40 PM PEOPLESOFT HRMS DEVELOPER MARY ELLEN ESR ANTI - CCP AB ANTI TTG AB RF ABOVE TODAY [employer] HRMS DEVELOPER documented in this encounter Progress Notes * Laureano Lantigua MD - 09/26/2022 3:40 PM CST Subjective/Objective Patient ID: Finesse Ramirez is a 52 y.o. female. Chief Complaint joint pain HPI JOINT PAIN Review of Systems Musculoskeletal: Positive for arthralgias, joint swelling and myalgias. Physical Exam HENT: Head: Normocephalic and atraumatic. Right Ear: Tympanic membrane, ear canal and external ear normal. Left Ear: Tympanic membrane, ear canal and external ear normal. Cardiovascular: Rate and Rhythm: Normal rate and regular rhythm. Musculoskeletal: General: Tenderness present. No swelling or deformity. Right lower leg: No edema. Assessment/Plan There are no diagnoses linked to this encounter. [employer] HRMS DEVELOPER documented in this encounter Plan of Treatment Not on file documented as of this encounter Results * Rheumatoid factor (09/26/2022 4:23 PM PEOPLESOFT HRMS DEVELOPER) Pathologist [facility] [place] Rheumatoid factor, quant 12 <=15 IUnits/mL [facility] Blood 09/26/2022 4:23 PM PEOPLESOFT HRMS DEVELOPER 09/26/2022 8:03 PM PEOPLESOFT HRMS DEVELOPER Result [facility] [place] Lantigua MD LAB BLOOD ORDERABLES Final Result Performing Organization Address [facility] Co de Phone Number [facility] [address] [place] [address] * Tissue transglutaminase IgA (TGG-IgA Ab) (09/26/2022 4:23 PM PEOPLESOFT HRMS DEVELOPER) Pathologist [facility] TTG ab, IgA <0.5 <=14.9 units/mL [facility] Comment: Interpretive data Negative: <15 units/mL Positive: > or equal to 15 units/mL Current interpretive data was last revised on 2017. Testing performed by: [facility], [address] [place] [address]., [id number] Blood 09/26/2022 4:23 PM PEOPLESOFT HRMS DEVELOPER 09/27/2022 11:48 AM PEOPLESOFT HRMS DEVELOPER Result [facility] India Lantigua MD LAB BLOOD ORDERABLES Final Result Performing Organization Address [facility] de Phone Number [facility] [address] [place] [address] * Cyclic citrul peptide antibody, IgG (09/26/2022 4:23 PM PEOPLESOFT HRMS DEVELOPER) Pathologist [facility] CCP Ab <0.5 <=2.9 units/mL [facility] Comment: Interpretive data Negative: <3 units/mL Positive: > or equal to 3 units/mL Current interpretive data was last revised on 2017. Testing performed by: [facility], [address] [place] [address]., [id number] Blood 09/26/2022 4:23 PM PEOPLESOFT HRMS DEVELOPER 09/27/2022 11:48 AM PEOPLESOFT HRMS DEVELOPER us Laureano Lantigua MD LAB BLOOD ORDERABLES Final Result Performing Organization Address [facility] Co de Phone Number [facility] [address] [address] [facility] [place] [address] * Erythrocyte sedimentation rate (09/26/2022 4:23 PM PEOPLESOFT HRMS DEVELOPER) Erythrocyte sedimentation rate 6 1 - 30 mm/hr [facility] Blood 09/26/2022 4:23 PM PEOPLESOFT HRMS DEVELOPER 09/26/2022 8:03 PM PEOPLESOFT HRMS DEVELOPER Laureano Lantigua MD LAB BLOOD ORDERABLES Final Result Performing Organization Address [facility] Phone Number [facility] LUCIO [address] [address] [facility] [place] [address] * MARY ELLEN qualitative with reflex to MARY ELLEN Quantitative (09/26/2022 4:23 PM PEOPLESOFT HRMS DEVELOPER) MARY ELLEN Negative Negative [facility] Comment: Interpretive Data Normal range for MARY [...] revised on 21. Blood 09/26/2022 4:23 PM PEOPLESOFT HRMS DEVELOPER 09/26/2022 8:03 PM PEOPLESOFT HRMS DEVELOPER Laureano Lantigua MD LAB BLOOD ORDERABLES Final Result Performing Organization Address [facility] de Phone Number [facility] LUCIO [address] [address] [facility] [place] [address] documented in this encounter Visit Diagnoses Diagnosis Joint pain in both hands- Primary documented in this encounter Discontinued Medications Medication Sig Discontinue Reason Start Date End Da te omeprazole (PriLOSEC) 20 mg capsule TAKE 1 CAPSULE BY MOUTH qd 03/31/2018 09/26/2022 documented as of this encounter Care Teams Melting Supervisor Relationship Specialty Start Date End Date Laureano Lantigua MD [address] [place] [address] PCP - General Internal Medicine 07/30/18 Tony Washington MD [address] [facility] [place] [address] Insurance Loss Adjuster Obstetrics and Gynecology 11/16/18 Anahy Rosales MD [address] [facility] [place] [address] Referring Physician Psychiatry 11/16/18 documented as of this encounter
--- OUTSIDE RECORDS SUMMARY | 2024-11-15 03:25 | XMS_ITS | Encounter Summary ---
Author Organization [facility] Healthcare Address [address] [place] [address] Care Team Providers Care Dandy Operator Name Role Phone Laureano Lantigua MD Primary Care Provider [phone] Tony Washington MD Unavailable [phone] Anahy Rosales MD Unavailable [phone] Nathalia Rodas PT Unavailable Unavailable Reason for Visit * Reason Comments PT Treatment * Consultation (Routine) - Closed Specialty Diagnoses / Procedures Referred By Contмария t Referred To Contact Physical Therapy Diagnoses Unilateral primary osteoarthritis, left hip Teddy Toussaint MD [address] [facility] [address] [place] [address] Phone: tel: fax: [address] [address] Referral ID Status Reason Start Date Expiration Date V isits Requested Visits Authorized [id number] Closed Specialty Services Required 01/28/2023 02/27/2024 12 12 Encounter Details Date Type Department Care Team (Late st Contact Info) Description 02/28/2023 5:15 PM CDT Therapy [facility] [place] [address] Nathalia Rodas, PT Left hip pain (Primary [...] on file Legal Sex Female 1:37 AM DIGITAL HARDWARE DESIGN ENGINEER Gender Identity Female 10/03/2023 10:05 AM DIGITAL HARDWARE DESIGN ENGINEER Sexual Orientation Straight 10/03/2023 10 :05 AM DIGITAL HARDWARE DESIGN ENGINEER documented as of this encounter Progress Notes * Nathalia Rodas, PT - 02/28/2023 5:15 PM CDT PT Treatment 02/26/2023 Finesse Ramirez 1970 ICD-9-CM ICD-10-CM 1. Left hip pain 719.45 M25.552 2. Primary osteoarthritis of left hip 715.15 M16.12 3. Unilateral primary osteoarthritis, left hip 715.15 M16.12 Subjective: Patient reports pain 1-2/10 today in low back & L hip. She feels like its been a bit better. Morning is still rough. She is really tired currently. Objective: See treatment provided Treatment Provided: Prone L/S CPA, sacral mob into ext STM paraspinals, L external rotators Prone passive hip IR/ER Supine hip stretching Cat/cow Quad rock QPed TA contraction Supine Marching Supine BKFO with red TB Supine nerve glide PPT Bladder log HEP: Cat/cow, quad rock, TA recruitment with marching; [id number] Assessment: Pt had significant tenderness to low back and L sacrum with gentle mobilizations today, with noted increased neural symptoms. Supine nerve glides helped to decrease but did not completely take away. Did not progress due to this and discussed using ice and IFC at home to calm symptoms. Plan: Continue progressing as tolerated. Progress core strengthening, hip abd & ER strengthening. Time in: 1724 Time out: 1800 Nathalia Rodas PT, DPT, COMT documented in this encounter Plan of Treatment Not on file documented as of this encounter Visit Diagnoses Diagnosis Left hip pain- Primary Pain in joint, pelvic region and thigh Unilateral primary osteoarthritis, left hip Primary osteoarthritis of left hip documented in this encounter Care Teams Dandy Operator Relationship Specialty Start Date End Date Laureano Lantigua MD [address] [place] [address] PCP - General Internal Medicine 07/30/18 Tony Washington MD 4 [facility] [address] [place] [address] Water Valve Repairer Obstetrics and Gynecology 11/16/18 Anahy Rosalse MD 4 [facility] [address] [place] [address] Referring Physician Psychiatry 11/16/18 Nathalia Rodas, PT Physical Therapist Physical Therapy 02/14/23 documented as of this encounter
--- OUTSIDE RECORDS SUMMARY | 2024-11-15 03:25 | XMS_ITS | Encounter Summary ---
Author Organization [facility] Medical Group Address [address] [address] Care Team Providers Care Supervisor Insecticide Name Role Phone Laureano Lantigua MD Primary Care Provider + [phone] Tony Washington MD Unavailable [phone] Anahy Rosales MD Unavailable [phone] Reason for Visit * Reason Comments Annual Exam Rash Encounter Details Date Type Department Care Team (Late st Contact Info) Description 01/04/2022 3:00 PM RESIDENTIAL PROGRAM COORDINATOR Office Visit [facility] [address] [place] [address] Laureano Lantigua MD [address] [place] [address] Routine physical examination (Primary Dx); Irritable bowel syndrome with constipation; Hot flashes; Rash; Low back pain with sciatica, sciatica laterality unspecified, unspecified back pain laterality, unspecified chronicity Social History Tobacco Use Types Packs/Day Years Used Date Smoking Tobacco: Never Smokeless Tobacco: Never Alcohol Use Standard Drinks/Week Comments Yes 0 (1 standard drink = 0.6 oz pur e alcohol) PHQ-2 Answer Date Recorded PHQ-2 Score 0 11/22/2019 Comments No Sex and Gender Information Value Date Recorded Sex Assigned at Not on file Legal Sex Female 1:37 AM RESIDENTIAL PROGRAM COORDINATOR Gender Identity Female 10/03/2023 10:05 AM RESIDENTIAL PROGRAM COORDINATOR Sexual Orientation Straight 10/03/2023 10 :05 AM RESIDENTIAL PROGRAM COORDINATOR documented as of this encounter Last Filed Vital Signs Vital Sign Reading Time Taken Comments Blood Pressure 150/90 01/04/2022 3:20 PM RESIDENTIAL PROGRAM COORDINATOR Pulse 81 01/04/2022 3:20 PM RESIDENTIAL PROGRAM COORDINATOR Temperature 36.3 ??C (97.3 ??F) 01/04/2022 3:20 PM CS T Respiratory Rate 18 01/04/2022 3:20 PM RESIDENTIAL PROGRAM COORDINATOR Oxygen Saturation 99% 01/04/2022 3:20 PM RESIDENTIAL PROGRAM COORDINATOR Inhaled Oxygen Concentration - - Weight 98.1 kg (216 lb 3.2 oz) 01/04/2022 3:20 P M RESIDENTIAL PROGRAM COORDINATOR Height - - Body Mass Index 29.32 03/27/2021 11:37 AM CDT documented in this encounter Patient Instructions * Patient Instructions* Laureano Lantigua MD - 01/04/2022 3:00 PM RESIDENTIAL PROGRAM COORDINATOR CBC CMP FLP ANTI TTG AB ESTRADIOL LEVELS ABOVE TODAY RTC IN ONE YEAR HAVE NURSES SEND IN A PRESCRIPTION FOR SOMA DENTIAL PROGRAM COORDINATOR DENTIAL PROGRAM COORDINATOR documented in this encounter Ordered Prescriptions Prescription Sig Dispense Quantity Refills Last Filled Start Date End Date albuterol HFA (PROVENTIL HFA,VENTOLIN HFA,PROAIR HFA) 90 mcg/actuation inhaler 2 puffs qid prn 1 each 01/04/2022 triamcinolone (KENALOG) 0.1 % ointment Apply topically 2 (two) times a day as needed for irritation or rash 60 g 01/04/2022 3 documented in this encounter Progress Notes * Laureano Lantigua MD - 01/04/2022 3:00 PM CST Subjective/Objective Patient ID: Finesse Ramirez is a 51 y.o. female. Chief Complaint Annual Exam and Rash HPI IMMUNIZATIONS WERE REVIEWED MEDS WERE REVIEWED SHE DID SEE THE EYE DOCTOR AND THE DENTIST Review of Systems Respiratory: Negative. Cardiovascular: Negative. Genitourinary: Negative. Neurological: Negative. Physical Exam Nursing note reviewed. Constitutional: Appearance: Normal appearance. Cardiovascular: Rate and Rhythm: Normal rate and regular rhythm. Pulses: Normal pulses. Musculoskeletal: General: Normal range of motion. Cervical back: Normal range of motion and neck supple. Assessment/Plan There are no diagnoses linked to this encounter. DENTIAL PROGRAM COORDINATOR documented in this encounter Plan of Treatment Scheduled Orders Name Type Priority Associated Diagnoses Orde r Schedule Tissue transglutaminase, IgA, IgM (TTG-IgA, IgM AB) Lab Routine Irritable bowel syndrome with constipation Hot flashes Rash Expected: 01/04/2022, Expires: 01/04/2023 documented as of this encounter Results * Estradiol (01/04/2022 4:14 PM RESIDENTIAL PROGRAM COORDINATOR) Estradiol 14.7 pg/mL [facility] Comment: Interpretive Data Male: ?11 - 43 pg/mL Female: ??Follicular ? 31 - 90 pg/mL ??Ovulation ?60 - 533 pg/mL ??Luteal ? 60 - 232 pg/mL ??Postmenopausal ?? < 50 ??pg/mL Patients treated with Fluvestrant (Faslodex) should be tested using an alternate assay such as LC-MS. Contact the [facility], , to request analysis by LC-MS. Current interpretive data was last revised 2020. Testing performed by: [facility], [address] [facility], [place]., [address] Blood 01/04/2022 4:14 PM RESIDENTIAL PROGRAM COORDINATOR 01/07/2022 9:42 AM RESIDENTIAL PROGRAM COORDINATOR us Laureano Lantigua MD LAB BLOOD ORDERABLES Final Result [facility] [address] Department [place] [address] * (ABNORMAL) Lipid panel (01/04/2022 4:14 PM RESIDENTIAL PROGRAM COORDINATOR) [facility] Cholesterol 203(H) 30 - 199 mg/dL [facility] Comment: Interpretive Data Ages < or = [...] Data was last revised on 2018. Triglycerides 192(H) <=149 mg/dL [facility] Comment: Interpretive Data Ages < or = [...] Data was last revised on 2018. HDL 59 >=40 mg/dL [facility] Comment: Interpretive Data Ages < or = [...] was last revised on 2018. LDL, calculated 106 <=129 mg/dL [facility] Comment: Interpretive Data Ages < or = [...] was last revised on 2018. Non-HDL Cholesterol 144 mg/dL [facility] Comment: Interpretive Data Ages < or = [...] last revised on 2018. Chol/HDL ratio 3 [facility] Blood 01/04/2022 4:14 PM RESIDENTIAL PROGRAM COORDINATOR 01/04/2022 7:43 PM RESIDENTIAL PROGRAM COORDINATOR Laureano Lantigua MD LAB [place] [address] [address] Department [place] [address] * Comprehensive metabolic panel (01/04/2022 4:14 PM RESIDENTIAL PROGRAM COORDINATOR) Sodium 139 135 - 145 mmol/L [facility] Potassium, pl 4.7 3.3 - 4.9 mmol/L [facility] Chloride 105 97 - 110 mmol/L [facility] CO2 24 22 - 32 mmol/L [facility] Anion gap 10 2 - 15 mmol/L [facility] BUN 15 8 - 25 mg/dL [facility] Creatinine 0.78 0.60 - 1.10 mg/dL [facility] Glucose 99 70 - 199 mg/dL [facility] Comment: Interpretive Data Fasting glucose >/= 126 [...] classification and Diagnosis of Diabetes Diabetes Care 2017;40 (Suppl. 1):S11. Current interpretive data was last revised 2017. Calcium 9.1 8.5 - 10.3 mg/dL [facility] Bilirubin, total 0.5 0.1 - 1.2 mg/dL [facility] Protein, pl 7.6 6.5 - 8.5 g/dL [facility] Albumin 4.7 3.5 - 5.0 g/dL [facility] Alk phos 84 40 - 130 Units/L [facility] ALT 24 7 - 45 Units/L [facility] AST 28 10 - 45 Units/L [facility] Blood 01/04/2022 4:14 PM RESIDENTIAL PROGRAM COORDINATOR 01/04/2022 7:43 PM RESIDENTIAL PROGRAM COORDINATOR Laureano Lantigua MD LAB BLOOD ORDERABLES Final Result [facility] [address] [place] [address] * (ABNORMAL) CBC with auto differential (01/04/2022 4:14 PM RESIDENTIAL PROGRAM COORDINATOR) Pathologist [facility] [place] WBC 8.7 3.8 - 9.9 K/cumm [facility] Hgb 12.9 11.9 - 15.5 g/dL [facility] Hct 40.7 35.6 - 45.5 % [facility] Plt 284 150 - 400 K/cumm [facility] MPV 12.0 9.1 - 12.3 fL [facility] RBC 4.36 3.90 - 5.20 M/cumm [facility] MCV 93.3 81.3 - 96.4 fL [facility] MCH 29.6 27.1 - 33.3 pg [facility] MCHC 31.7(L) 32.3 - 35.7 g/dL [facility] RDW CV 12.5 11.1 - 14.9 % [facility] RDW SD 43.5 35.7 - 48.1 fL [facility] NRBC abs 0.00 0.00 - 0.01 K/cumm [facility] Blood 01/04/2022 4:14 PM RESIDENTIAL PROGRAM COORDINATOR 01/04/2022 7:43 PM RESIDENTIAL PROGRAM COORDINATOR Laureano Lantigua MD LAB BLOOD ORDERABLES Final Result [facility] [address] [place] [address] documented in this encounter Visit Diagnoses Diagnosis Routine physical examination- Primary Routine general medical examination at a health care facility Irritable bowel syndrome with constipation Irritable bowel syndrome Hot flashes Rash Rash and other nonspecific skin eruption Low back pain with sciatica, sciatica laterality unspecified, unspecified back pain laterality, unspecified chronicity documented in this encounter Discontinued Medications Medication Sig Discontinue Reason Start Date End Da te albuterol HFA (PROVENTIL HFA,VENTOLIN HFA,PROAIR HFA) 90 mcg/actuation inhaler 2 puffs qid prn Reorder 01/01/2021 022 documented as of this encounter Care Teams Supervisor Insecticide Relationship Specialty Start Date End Date Laureano Lantigua MD [address] [place] [address] PCP - General Internal Medicine 07/30/18 Tony Washington MD [address] [facility] [address] [place] [address] Trading Analyst Obstetrics and Gynecology 11/16/18 Anahy Rosales MD [address] [facility] [address] [place] [address] Referring Physician Psychiatry 11/16/18 documented as of this encounter
--- OUTSIDE RECORDS SUMMARY | 2024-11-15 03:25 | XMS_ITS | Encounter Summary ---
Author Organization [facility] Address [address] [email or web address] [address] Phone Care Team Providers Care Data Specialist Name Role Phone Laureano Lantigua MD Primary Care Provider Tony Washington MD Unavailable [phone] Anahy Rosales MD Unavailable [phone] Nathalia Rodas PT Unavailable Unavailable Encounter Details Date Type Department Care Team (Late st Contact Info) Description 12/31/2022 Orders Only [facility] [address] [email or web address] [address] Scanning, Provider Social History Tobacco Use Types [...] on file Legal Sex Female 1:37 AM DOUGH CATCHER Gender Identity Female 10/03/2023 10:05 AM DOUGH CATCHER Sexual Orientation Straight 10/03/2023 10 :05 AM DOUGH CATCHER documented as of this encounter Plan of Treatment Not on file documented as of this encounter Procedures Procedure Name Priority Date/Time Associated Diagnosis Comments SCAN - RADIOLOGY/IMAGING 12/31/2022 documented in this encounter Results * SCAN - RADIOLOGY/IMAGING (12/31/2022) Anatomical Region Laterality Modality Other us Provider Scanning Final Result documented in this encounter Visit Diagnoses Not on filedocumented in this encounter Care Teams Data Specialist Relationship Specialty Start Date End Date Laureano Lantigua MD [address] [place] [address] PCP - General Internal Medicine 07/30/18 Tony Washington MD [address] [facility] [address] [facility] [place] [address] Art Museum Aide Obstetrics and Gynecology 11/16/18 Anahy Rosales MD [address] [facility] [facility] [place] [address] Referring Physician Psychiatry 11/16/18 Nathalia Rodas, PT Physical Therapist Physical Therapy 02/14/23 documented as of this encounter
--- OUTSIDE RECORDS SUMMARY | 2024-11-15 03:25 | XMS_ITS | Encounter Summary ---
Author Organization [facility] Medical Group Address [address] [address] Care Team Providers Care Bilingual Counter Sales Retail Name Role Phone Laureano Lantigua MD Primary Care Provider + [phone] Tony Washington MD Unavailable [phone] Anahy Rosales MD Unavailable [phone] Encounter Details Date Type Department Care Team (Late st Contact Info) Description 10/01/2022 Telephone [facility] [address] [place] [id number] Laureano Lantigua MD [address] [address] Social History Tobacco Use Types Packs/Day Years [...] on file Legal Sex Female 1:37 AM ACQUISITIONS ANALYST Gender Identity Female 10/03/2023 10:05 AM ACQUISITIONS ANALYST Sexual Orientation Straight 10/03/2023 10 :05 AM ACQUISITIONS ANALYST documented as of this encounter Miscellaneous Notes * Telephone Encounter - Tatyana Akbar RN - 10/01/2022 3:03 PM CST Pt aware et voices understanding. ISITIONS ANALYST * Telephone Encounter - Laureano Lantigua MD - 10/01/2022 12:26 PM ACQUISITIONS ANALYST ALL OF HER RHEUMATOLOGICAL BLOOD WORK WAS NL ISITIONS ANALYST documented in this encounter Plan of Treatment Not on file documented as of this encounter Visit Diagnoses Not on filedocumented in this encounter Care Teams Bilingual Counter Sales Retail Relationship Specialty Start Date End Date Laureano Lantigua MD [address] [place] [address] PCP - General Internal Medicine 07/30/18 Tony Washington MD [address] [facility] [place] [address] Gusset Stitcher Obstetrics and Gynecology 11/16/18 Anahy Rosales MD [address] [facility] [place] [address] Referring Physician Psychiatry 11/16/18 documented as of this encounter
--- OUTSIDE RECORDS SUMMARY | 2024-11-15 03:25 | XMS_ITS | Encounter Summary ---
Author Organization [facility] Address [address] [address] Care Team Providers Care Senior Office Support Assistant Sosa Name Role Phone Laureano Lantigua MD Primary Care Provider [phone] Tony Washington MD Unavailable [phone] Anahy Rosales MD Unavailable [phone] Encounter Details Date Type Department Care Team (Late st Contact Info) Description 09/26/2022 4:20 PM WEATHERIZATION OPERATIONS MANAGER Lab [facility] [address] [place] [phone] Joint pain in both hands Social History Tobacco Use Types Packs/Day Years [...] on file Legal Sex Female 1:37 AM WEATHERIZATION OPERATIONS MANAGER Gender Identity Female 10/03/2023 10:05 AM WEATHERIZATION OPERATIONS MANAGER Sexual Orientation Straight 10/03/2023 10 :05 AM WEATHERIZATION OPERATIONS MANAGER documented as of this encounter Plan of Treatment Not on file documented as of this encounter Visit Diagnoses Diagnosis Joint pain in both hands documented in this encounter Care Teams Senior Office Support Assistant Sosa Relationship Specialty Start Date End Date Laureano Lantigua MD [address] [place] [address] PCP - General Internal Medicine 07/30/18 Tony Washington MD [address] [facility] [address] [place] [address] Box Office Manager Obstetrics and Gynecology 11/16/18 Anahy Rosales MD [address] [facility] [address] [place] [address] Referring Physician Psychiatry 11/16/18 documented as of this encounter
--- OUTSIDE RECORDS SUMMARY | 2024-11-15 03:25 | XMS_ITS | Encounter Summary ---
Author Organization [facility] Healthcare Address [address] [place] [address] Care Team Providers Care Waistband Setter Name Role Phone Laureano Lantigua MD Primary Care Provider [phone] Tony Washington MD Unavailable [phone] Anahy Rosales MD Unavailable [phone] Encounter Details Date Type Department Care Team (Late st Contact Info) Description 01/04/2022 7:15 PM COATING MIXER SUPERVISOR Lab [address] [id number] Irritable bowel syndrome with constipation; Hot flashes; Rash; Routine physical examination Social History Tobacco Use Types Packs/Day Years Used Date Smoking Tobacco: Never Smokeless Tobacco: Never Alcohol Use Standard Drinks/Week Comments Yes 0 (1 standard drink = 0.6 oz pur e alcohol) PHQ-2 Answer Date Recorded PHQ-2 Score 0 11/22/2019 Comments No Sex and Gender Information Value Date Recorded Sex Assigned at Not on file Legal Sex Female 1:37 AM COATING MIXER SUPERVISOR Gender Identity Female 10/03/2023 10:05 AM COATING MIXER SUPERVISOR Sexual Orientation Straight 10/03/2023 10 :05 AM COATING MIXER SUPERVISOR documented as of this encounter Plan of Treatment Not on file documented as of this encounter Procedures Procedure Name Priority Date/Time Associated Diagnosis Comments EGFR Routine 01/04/2022 4:14 PM COATING MIXER SUPERVISOR Routine physical examination Irritable bowel syndrome with constipation Hot flashes Rash DIFFERENTIAL AUTO Routine 01/04/2022 4:1 4 PM COATING MIXER SUPERVISOR Routine physical examination Irritable bowel syndrome with constipation Hot flashes Rash CBC WITH AUTO DIFFERENTIAL Routine 01/04/2022 4:14 PM COATING MIXER SUPERVISOR Routine physical examination Irritable bowel syndrome with constipation Hot flashes Rash ESTRADIOL Routine 01/04/2022 4:14 PM COATING MIXER SUPERVISOR Irritable bowel syndrome with constipation Hot flashes Rash LIPID PANEL Routine 01/04/2022 4:14 PM COATING MIXER SUPERVISOR Routine physical examination Irritable bowel syndrome with constipation Hot flashes Rash COMPREHENSIVE METABOLIC PANEL Routine 01/04/2022 4:14 PM COATING MIXER SUPERVISOR Routine physical examination Irritable bowel syndrome with constipation Hot flashes Rash documented in this encounter Results * eGFR (01/04/2022 4:14 PM COATING MIXER SUPERVISOR) [facility] eGFR 92 mL/min/1. 73 m2 [facility]US LUCIO Comment: Interpretive Data Reference Interval Normal ?>/= [...] of Race in Diagnosing Kidney Disease, JASN 2021). The CKD-EPI equation should not be used for patients with unstable renal function and has not been validated in children and those over 70. Current interpretive data was last reviewed 2021. Blood 01/04/2022 4:14 PM COATING MIXER SUPERVISOR 01/04/2022 7:59 PM COATING MIXER SUPERVISOR us Laureano Lantigua MD LAB BLOOD ORDERABLES Final Result [facility] [address] Department [place] [address] * (ABNORMAL) Differential, auto (01/04/2022 4:14 PM COATING MIXER SUPERVISOR) Neutrophil abs 4.4 1.7 - 6.5 K/cumm CERNER Imm gran abs 0.0 0.0 - 0.1 K/cumm [facility] Lymphocyte abs 3.4(H) 0.8 - 3.3 K/cumm [facility] Monocyte abs 0.6 0.2 - 0.8 K/cumm [facility] Eosinophil abs 0.3 0.0 - 0.5 K/cumm [facility] Basophil abs 0.1 0.0 - 0.1 K/cumm [facility] Neutrophil pct 50.0 % [facility] Comment: Interpretive Data Percent cell count reference ranges are not reported, since discordance with absolute values may lead to misinterpretation of CBC data. Current Interpretive Data was last revised on 2018. Imm gran pct 0.2 % [facility] Comment: Interpretive Data Percent cell count reference ranges are not reported, since discordance with absolute values may lead to misinterpretation of CBC data. Current Interpretive Data was last revised on 2018. Lymphocyte pct 38.5 % [facility] Comment: Interpretive Data Percent cell count reference ranges are not reported, since discordance with absolute values may lead to misinterpretation of CBC data. Current Interpretive Data was last revised on 2018. Monocyte pct 7.0 % [facility] Comment: Interpretive Data Percent cell count reference ranges are not reported, since discordance with absolute values may lead to misinterpretation of CBC data. Current Interpretive Data was last revised on 2018. Eosinophil pct 3.7 % [facility] Comment: Interpretive Data Percent cell count reference ranges are not reported, since discordance with absolute values may lead to misinterpretation of CBC data. Current Interpretive Data was last revised on 2018. Basophil pct 0.6 % [facility] Comment: Interpretive Data Percent cell count reference ranges are not reported, since discordance with absolute values may lead to misinterpretation of CBC data. Current Interpretive Data was last revised on 2018. Blood 01/04/2022 4:14 PM COATING MIXER SUPERVISOR 01/04/2022 7:43 PM COATING MIXER SUPERVISOR Laureano Lantigua MD LAB BLOOD ORDERABLES Final Result [facility] [address] Department [place] [address] * (ABNORMAL) CBC with auto differential (01/04/2022 4:14 PM COATING MIXER SUPERVISOR) WBC 8.7 3.8 - 9.9 K/cumm [facility] Hgb 12.9 11.9 - 15.5 g/dL [facility] Hct 40.7 35.6 - 45.5 % [facility] Plt 284 150 - 400 K/cumm [facility] MPV 12.0 9.1 - 12.3 fL [facility] RBC 4.36 3.90 - 5.20 M/cumm [facility] MCV 93.3 81.3 - 96.4 fL [facility] MCH 29.6 27.1 - 33.3 pg [facility] MCHC 31.7(L) 32.3 - 35.7 g/dL [facility] RDW CV 12.5 11.1 - 14.9 % [facility] RDW SD 43.5 35.7 - 48.1 fL [facility] NRBC abs 0.00 0.00 - 0.01 K/cumm [facility] Blood 01/04/2022 4:14 PM COATING MIXER SUPERVISOR 01/04/2022 7:43 PM COATING MIXER SUPERVISOR Laureano Lantigua MD LAB BLOOD ORDERABLES Final Result [facility] [address] Department [place] [place] [address] * Comprehensive metabolic panel (01/04/2022 4:14 PM COATING MIXER SUPERVISOR) Sodium 139 135 - 145 mmol/L CERNER [...] Units/L CERNER CH Blood 01/04/2022 4:14 PM COATING MIXER SUPERVISOR 01/04/2022 7:43 PM COATING MIXER SUPERVISOR us Laureano Lantigua MD LAB BLOOD ORDERABLES Final Result Performing Organization Address City/[facility]/ZIP Co de Phone Number DARIUS LUCIO [address] Department [place] [address] * (ABNORMAL) Lipid panel (01/04/2022 4:14 PM COATING MIXER SUPERVISOR) [facility] Cholesterol 203(H) 30 - 199 mg/dL [...] last revised on 2018. Chol/HDL ratio 3 DARIUS LUCIO Blood 01/04/2022 4:14 PM COATING MIXER SUPERVISOR 01/04/2022 7:43 PM COATING MIXER SUPERVISOR Laureano Lantigua MD LAB BLOOD ORDERABLES Final Result Performing Organization Address [facility] de Phone Number DARIUS [address] [place] [address] * Estradiol (01/04/2022 4:14 PM COATING MIXER SUPERVISOR) Pathologist [facility] Estradiol 14.7 pg/mL DARIUS LUCIO Comment: Interpretive [...] was last revised 2020. Testing performed by: [facility], [address] [place]., [address] Blood 01/04/2022 4:14 PM COATING MIXER SUPERVISOR 01/07/2022 9:42 AM COATING MIXER SUPERVISOR Laureano Lantigua MD LAB BLOOD ORDERABLES Final Result Performing Organization Address [facility] de Phone Number DARIUS LUCIO [address] [facility] [employer] [address] documented in this encounter Visit Diagnoses Diagnosis Irritable bowel syndrome with constipation Irritable bowel syndrome Hot flashes Rash Rash and other nonspecific skin eruption Routine physical examination Routine general medical examination at a health care facility documented in this encounter Care Teams Waistband Setter Relationship Specialty Start Date End Date Laureano Lantigua MD [address] [place] [address] PCP - General Internal Medicine 07/30/18 Tony Washington MD [address] [place] [address] Senior Sas Programmer Obstetrics and Gynecology 11/16/18 Anahy Rosales MD [address] [place] [address] Referring Physician Psychiatry 11/16/18 documented as of this encounter
--- OUTSIDE RECORDS SUMMARY | 2024-11-15 03:25 | XMS_ITS | Encounter Summary ---
Author Organization [facility] Healthcare Address [address] [place] [address] Care Team Providers Care Mold Filler Name Role Phone Laureano Lantigua MD Primary Care Provider [phone] Tony Washington MD Unavailable [phone] Anahy Rosales MD Unavailable [phone] Encounter Details Date Type Department Care Team (Late st Contact Info) Description 03/27/2021 12:40 PM CDT Anesthesia Event [facility] [address] [place] [address] Amaury Harris MD [address] [place] [id number] Anesthesia Record Procedure Summary Procedure Name Responsible Anesthesiologist Anesthesia Start Time Anesthesia Stop Time COLONOSCOPY (Colon) Amaury Harris MD 03/27/21 1240 03/27/21 1254 Events Date Time Event Comment 03/27/2021 1203 1234 In Room 1240 An Start 1240 An Start Data 1240 Start Supplemental O2 1241 Patient Positioned Laterally 1242 An Induction The patient was reevaluated immediately before moderate or deep sedation use and before anesthesia induction. 1242 Anesthesia Ready 1254 an stop data 1254 Handoff to RN I completed my handoff [...] disposition at the time of handoff: PACU 1254 An Stop 1255 Release from care 1257 Out of Room Meds Name Total lidocaine (cardiac) syringe 2 % 100 mg propofol 200 mg sodium chloride 0.9% infusion 600 mL * Agents Name O2 * Blood No blood administrations on file. Lines, Drains, and Airways Type Details Placement Removal Peripheral IV Placement Date: 03/17 12/07; Placement Time: 1200; Catheter Size: 20 G; Orientation: Anterior, Right; Location: Hand; Removal Date: 03/27/21; Removal Time: 133; Removal Reason: Therapy completed 03/27/21 1200 by Debbie Rausch, RN 03/27/21 1339 by Debbie Rausch RN documented in this encounter Social History [...] on file Legal Sex Female 1:37 AM PIG STICKER Gender Identity Female 10/03/2023 10:05 AM PIG STICKER Sexual Orientation Straight 10/03/2023 10 :05 AM PIG STICKER documented as of this encounter OR Notes * Anesthesia Postprocedure Evaluation - Aneudy Cavazos CRNA - 03/27/2021 12:54 PM CDT Patient: Finesse Ramirez Procedure Summary Date: 03/27/21 Room / Location: [facility] ENDOSCOPY ROOM 1 / [facility] ENDOSCOPY Anesthesia Start: 1240 Anesthesia Stop: 1254 Procedure: COLONOSCOPY (N/A Colon) Diagnosis: Screen for colon cancer (Screen for colon cancer [Z12.11]) Providers: Manuel Tanner MD Responsible Provider: Amaury Harris MD Anesthesia Type: general/TIVA ASA Status: 2 Anesthesia Type: general/TIVA Last vitals BP 129/69 Pulse 66 Temp 36.8 ??C (98.3 ??F) Resp 16 SpO2 98% Anesthesia Post Evaluation Patient location during evaluation: PACU Patient participation: waiting for patient participation Level of consciousness: arouses advertising sales consultant Pain management: satisfactory to patient Airway patency: adequate and patent Anesthetic complications: no Cardiovascular status: acceptable Respiratory status: acceptable Hydration status: acceptable Pt is: normothermic Nausea/Vomiting status: none * Anesthesia Preprocedure Evaluation - Amaury Harris MD - 03/27/2021 11:46 AM CDT Images from the original note were not included. Anesthesia Evaluation Finesse Ramirez is a 51 y.o. female Procedure(s): COLONOSCOPY Pre-Op Diagnosis Codes: * Screen for colon cancer [Z12.11] HISTORY Past Medical History Information obtained from: patient and chart. Neurological + Psychiatric history - anxiety Cardiovascular Cardiac system: negative Respiratory + Asthma Hepatic / Heme Hepatic/Heme system: negative Gastrointestinal + Hiatal hernia Renal / Renal/ system: negative Musculoskeletal/Pain + Osteoarthritis Endocrine / Other Endocrine/Other system: negative Day of Surgery assessments + Possibility of assessed - HCG negative (see labs). Patient Active Problem List Diagnosis ??? Asthma ??? Recurrent major depressive disorder, in full remission (CMS/HCC) ??? Attention deficit hyperactivity disorder (ADHD) ??? Osteoarthritis of cervical spine ??? Lumbago ??? Itching ??? Screen for colon cancer Past Medical History: Diagnosis Date ??? Asthma Asthma; Comments: [facility] 06/27/2014 - ??? Female infertility Infertility, female ??? Fibrocystic breast ??? Hammer toe Hammer toe; Comments: [facility] 06/27/2014 - ??? HX OTHER MEDICAL Sinusitis, ADD, diverticulosis, obesity, OA, asthm ??? HX OTHER MEDICAL Depression, with Anxiety; PCOS ??? HX OTHER MEDICAL Missed Ab ??? HX OTHER MEDICAL ; Outcome: 37W0D week 7lb(s) 7 oz Male ??? Hypercholesterolemia High cholesterol; Comments: [facility] 06/27/2014 - ??? Hypertension Hypertension ??? Polycystic ovaries Polycystic ovary syndrome ??? Retinal detachment Detachment of retina; Comments: [facility] 06/27/2014 - Past Surgical History: Procedure Laterality Date ??? ANKLE SURGERY Ankle surgery ??? BREAST BIOPSY ??? CARPAL TUNNEL RELEASE Carpal tunnel release ??? CHOLECYSTECTOMY 03/2018 ??? COLONOSCOPY 03/27/2021 ??? ELBOW SURGERY 11/07/2020 ??? FOOT SURGERY [...] Right ACL repair ??? OTHER SURGICAL HISTORY 2003 : 1 hr labor ??? ROTATOR CUFF REPAIR rotator cuff surgery ??? ROTATOR CUFF REPAIR Rotator cuff repair ??? SHOULDER SURGERY Left ??? SPINAL FUSION Spinal fusion OB History 2 Para 1 Term 1 AB 1 Living 1 SAB 1 TAB Ectopic Multiple Live Births 1 Allergies Allergen Reactions ??? Erythromycin Rash Reaction: Rash, ??? Morphine Nausea only and Vomiting Reaction: Nausea, Vomiting, , Reaction: Nausea, Vomiting, , ??? Vicodin [Hydrocodone-Acetaminophen] Vomiting Taking? Last Dose Start Date End Date Provider albuterol HFA (PROVENTIL HFA,VENTOLIN HFA,PROAIR HFA) 90 mcg/actuation inhaler 01/01/21 -- Laureano Lantigua MD 2 puffs qid prn biotin (APPEAREX) 2,500 mcg tablet 10/26/10 -- Kanu Waterman MD 2,500 mcg. busPIRone (BUSPAR) 10 mg tablet 09/26/20 -- Kanu Waterman MD carisoprodoL (SOMA) 350 mg tablet 01/01/21 -- Laureano Lantigua MD Take 1 tablet (350 mg total) by mouth nightly as needed for muscle spasms ferrous sulfate 325 mg (65 mg of elemental iron) tablet Past Month -- -- Kanu Waterman MD liraglutide, weight loss, 3 mg/0.5 mL (18 mg/3 mL) pen injector -- -- Kanu Waterman MD methylphenidate ER (CONCERTA) 18 mg CR tablet 09/13/19 -- Kanu Waterman MD multivitamin (MULTIPLE VITAMINS) tablet tablet 01/16/15 -- Laureano Lantigua MD take 1 tablet by oral route every day with food omeprazole (PriLOSEC) 20 mg capsule 03/31/18 -- Kanu Waterman MD oxyCODONE-acetaminophen (PERCOCET) 5-325 mg per tablet 01/01/21 -- Laureano Lantigua MD Take 1 tablet by mouth every 8 (eight) hours as needed for pain sucralfate (CARAFATE) suspension 1 gram/10 mL 03/31/18 -- Kanu Waterman MD Current Facility-Administered Medications: ??? ondansetron (ZOFRAN) injection 4 mg, 4 mg, intravenous, Q30 Min PRN ??? sodium chloride 0.9% infusion, 30 mL/hr, intravenous, Continuous ??? sodium chloride 0.9% infusion, 125 mL/hr, intravenous, Continuous Social History Tobacco Use Smoking Status Never Smoker Smokeless Tobacco Never Used Substance and Sexual Activity Alcohol Use Yes Substance and Sexual Activity Drug Use No [...] Hypertension; ??? Diabetes Other Diabetes mellitus; Vitals: 03/27/21 1137 BP: 129/69 Pulse: 66 Resp: 16 Temp: 36.8 ??C (98.3 ??F) SpO2: 98% PT: No results found for requested labs within last 720 hours. INR: No results found for requested labs within last 720 hours. APTT: No results found for requested labs within last 720 hours. Hgb A1C: No results found for requested labs within last 720 hours. CBC RBC: No results found for requested labs within last 720 hours. RDW: No results found for requested labs within last 720 hours. MCHC: No results found for requested labs within last 720 hours. MCH: No results found for requested labs within last 720 hours. MCV: No results found for requested labs within last 720 hours. Hct: No results found for requested labs within last 720 hours. Hgb: No results found for requested labs within last 720 hours. WBC: No results found for requested labs within last 720 hours. MPV: No results found for requested labs within last 720 hours. Platelets: No results found for requested labs within last 720 hours. RDW CV: No results found for requested labs within last 720 hours. RDW Sd: No results found for requested labs within last 720 hours. BMP Glucose: No results found for requested labs within last 720 hours. Calcium: No results found for requested labs within last 720 hours. Sodium: No results found for requested labs within last 720 hours. Potassium: No results found for requested labs within last 720 hours. CO2: No results found for requested labs within last 720 hours. Chloride: No results found for requested labs within last 720 hours. BUN: No results found for requested labs within last 720 hours. Creatinine: No results found for requested labs within last 720 hours. DOS Physical Exam Medical history, medications, and allergies reviewed. Attestation: I endorse the findings of the anesthesia pre-evaluation assessment dated: 03/27/2021. Airway Exam: Mallampati: I Cervical ROM: FROM TM distance: >4 Jaw ROM: full Cardiovascular Exam: Rate: regular Rhythm: regular Pulmonary Exam: LCTA, bilat Dental Exam: Appears intact Current state: Patient's current state is cooperative and interactive. Anesthesia Plan ASA 2 My patient is approved for the Anesthesia Controlled Medication protocol when under care of a ELECTRIC WIRER Planned anesthesia: General/TIVA Induction: Induction: intravenous. Postoperative Plan: No plan for postoperative opioid use. No postoperative mechanical ventilation intended. Patient's planned disposition post procedure is Outpatient. Informed Consent: Discussed plan with attending and ELECTRIC WIRER. Anesthesia plan and risks discussed with patient. [...] Action Action Date Dose Rate Site lidocaine (cardiac) (XYLOCAINE) preservative free injection intravenous, As needed, Starting on Fri03/27/21 at 1242, Anesthesia Intra-op, Indications: Ventricular ArrhythmiasIndications:Ventricula r Arrhythmias Given 03/27/2021 12:42 PM CDT 100 mg propofoL (DIPRIVAN) 10 mg/mL IV intravenous, As needed, Starting on Fri03/27/21 at 1242, Anesthesia Intra-op Given 03/27/2021 12:47 PM CDT 50 mg Given 03/27/2021 12:44 PM CDT 50 mg Given 03/27/2021 12:42 PM CDT 100 mg sodium chloride 0.9% infusion 30 mL/hr, intravenous, Continuous, Starting on Fri03/27/21 at 1215, Pre-Procedure (GI) Restarted 03/27/2021 12:54 PM CDT New Bag 03/27/2021 12:00 PM CDT 30 mL/hr 30 mL/hr documented in this encounter Care Teams Mold Filler Relationship Specialty Start Date End Date Laureano Lantigua MD [address] [place] [address] PCP - General Internal Medicine 07/30/18 Tony Washington MD [address] [place] [address] Battery Builder Obstetrics and Gynecology 11/16/18 Anahy Rosales MD [address] [place] [address] Referring Physician Psychiatry 11/16/18 documented as of this encounter
--- OUTSIDE RECORDS SUMMARY | 2024-11-15 03:25 | XMS_ITS | Encounter Summary ---
Author Organization [facility] Medical [facility] Address [address] [address] Care Team Providers Care Stock Mixer Name Role Phone Laureano Lantigua MD Primary Care Provider [phone] Tony Washington MD Unavailable [phone] Anahy Rosales MD Unavailable [phone] Reason for Visit * Reason Comments Vaginal Bleeding * Diagnostic Imaging (Routine) - Closed Specialty Diagnoses / Procedures Referred By Contac t Referred To Contact Diagnoses Menorrhagia with regular cycle Procedures US Pelvis W Endovaginal Tony Washington MD [address] [place] [address] [address] [place] [address] Phone: tel: fax: [facility] Referral ID Status Reason Start Date Expiration Date Visits Re quested Visits Authorized [id number] Closed 01/28/2023 02/27/2024 1 1 Encounter Details Date Type Department Care Team (Latest Contact Info) Description 02/03/2023 9:00 AM CDT Ancillary Procedure [facility] [address] [place] [id number] Menorrhagia with regular cycle Social History Tobacco Use Types Packs/Day Years [...] file Legal Sex Female 1:37 AM LOGISTICS ADMINISTRATOR Gender Identity Female 10/03/2023 10:05 AM LOGISTICS ADMINISTRATOR Sexual Orientation Straight 10/03/2023 10 :05 AM LOGISTICS ADMINISTRATOR documented as of this encounter Miscellaneous Notes * Result Encounter Note - Tony Washington MD - 02/26/2023 12:58 PM CDT Please call patient with results. Let Finesse know that her ultrasound is normal. Can observe cycles or consider medical or surgical treatment. Will need EMB if desires ablation. documented in this encounter Plan of Treatment Not on file documented as of this encounter Procedures Procedure Name Priority Date/Time Associated Diagnosis Comments US PELVIS W ENDOVAGINAL Routine 02/03/2023 9:23 AM CDT Menorrhagia with regular cycle documented in this encounter Results * US Pelvis W Endovaginal (02/03/2023 9:23 AM CDT) Cul de Sac No free fluid visualized [facility] Endometrial Thickness 8.3 mm&millim eters [facility] Anatomical Region Laterality Modality Pelvis N/A Ultrasound 02/03/2023 9:15 AM CDT Impressions 02/09/2023 2:18 PM CDT 1. Normal size heterogeneous uterus. 2. Normal appearing ovaries bilaterally. Narrative Procedure Note Tony Washington MD - 02/09/2023 IMPRESSION: 1. Normal size heterogeneous uterus. 2. Normal appearing ovariesbilaterally. us Tony Washington MD IMG US PROCEDURES Final Re sult documented in this encounter Visit Diagnoses Diagnosis Menorrhagia with regular cycle documented in this encounter Care Teams Stock Mixer Relationship Specialty Start Date End Date Laureano Lantigua MD [address] [place] [address] PCP - General Internal Medicine 07/30/18 Tony Washington MD [address] [facility] [facility] [address] [place] [address] Bonding And Composite Fabricator Obstetrics and Gynecology 11/16/18 Anahy Rosales MD [address] [address] [place] [address] Referring Physician Psychiatry 11/16/18 documented as of this encounter
--- OUTSIDE RECORDS SUMMARY | 2024-11-15 03:25 | XMS_ITS | Encounter Summary ---
Author Organization [facility] Address [address] [address] Care Team Providers Care Field Administrator Name Role Phone Laureano Lantigua MD Primary Care Provider + [phone] Tony Washington MD Unavailable [phone] Anahy Rosales MD Unavailable [phone] Encounter Details Date Type Department Care Team (Late st Contact Info) Description 10/17/2021 Telephone [facility] [address] [place] [id number] Laureano Lantigua MD [address] [address] Social History Tobacco Use Types Packs/Day Years Used Date Smoking Tobacco: Never Smokeless Tobacco: Never Alcohol Use Standard Drinks/Week Comments Yes 0 (1 standard drink = 0.6 oz pur e alcohol) PHQ-2 Answer Date Recorded PHQ-2 Score 0 11/22/2019 Comments No Sex and Gender Information Value Date Recorded Sex Assigned at Not on file Legal Sex Female 1:37 AM CROWN CERAMIST Gender Identity Female 10/03/2023 10:05 AM CROWN CERAMIST Sexual Orientation Straight 10/03/2023 10 :05 AM CROWN CERAMIST documented as of this encounter Ordered Prescriptions Prescription Sig Dispense Quantity Refills Last Filled Start Date End Date busPIRone (BUSPAR) 10 mg tablet Take 1 tablet (10 mg total) by mouth daily as needed (anxiety) 30 tablet 5 10/18/2021 03/10/2024 documented in this encounter Miscellaneous Notes * Telephone Encounter - Neftali Chavez RN - 10/18/2021 11:02 AM CROWN CERAMIST Spoke to pt et informed of below TLQ message Ref for Buspar 10 mg daily prn #30 5ref sent to [facility] Pt declined appt @ this time Annual appt scheduled for 01-04-22 @ 3:00 Pt has no further questions/concerns @ this time N CERAMIST * Telephone Encounter - Laureano Lantigua MD - 10/18/2021 7:57 AM CROWN CERAMIST buspar 10 mg po qday prn #30 5rf If she wishes to make an appt with me to talk about things that's fine as well N CERAMIST * Telephone Encounter - Jenifer Garza LPN - 10/17/2021 4:19 PM CROWN CERAMIST ----- Message from Finesse Ramirez sent at 10/17/2021 4:18 PM CROWN CERAMIST ----- Regarding: Need prescription Good afternoon, I had been talking Buspar prescribed by Vida Neff. Due to covid restrictions what not, I was not able to keep regular appointments with her and lapsed by about 9 months due to my work schedule. When I called to get an appoint last month they are not able to see me until November 26 and will not refill any prescription until that time. I have recently had some life events that have increased my stress level and anxiety. I started a new job, experienced a , and a couple of other personallife happenings. I am having a hard time and crying a lot as well as lost sleep and anxiety. Can Dr. Lantigua please fill the Buspar for me so I can make it to my November appointment with Dr. Neff. A good call back number is my cell which is [phone], or my work cell [phone]. Thanks. N CERAMIST documented in this encounter Plan of Treatment Not on file documented as of this encounter Visit Diagnoses Not on filedocumented in this encounter Discontinued Medications Medication Sig Discontinue Reason Start Date End Da te busPIRone (BUSPAR) 10 mg tablet daily as needed Reorder 09/26/2020 10/18/2021 documented as of this encounter Care Teams Field Administrator Relationship Specialty Start Date End Date Laureano Lantigua MD [address] [facility] [place] [address] PCP - General Internal Medicine 07/30/18 Tony Washington MD [address] [place] [address] [place] [address] Metallurgical Engineering Technician Obstetrics and Gynecology 11/16/18 Anahy Rosales MD [address] [place] [address] [place] [address] Referring Physician Psychiatry 11/16/18 documented as of this encounter
--- OUTSIDE RECORDS SUMMARY | 2024-11-15 03:25 | XMS_ITS | Encounter Summary ---
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 documented as of this encounter Plan of Treatment Not on file documented as of this encounter Procedures Procedure Name Priority Date/Time Associated Diagnosis Comments SCAN - RADIOLOGY/IMAGING 12/25/2022 documented in this encounter Results * SCAN - RADIOLOGY/IMAGING (12/25/2022) Anatomical Region Laterality Modality Other us Provider Scanning Final Result documented in this encounter Visit Diagnoses Not on filedocumented in this encounter Care Teams Bookstore Clerk Relationship Specialty Start Date End Date Laureano Lantigua MD [address] [place] [address] PCP - General Internal Medicine 07/30/18 Tony Washington MD [address] [facility] [address] [facility] [place] [address] Screw Machine Operator Single Spindle Obstetrics and Gynecology 11/16/18 Anahy Rosales MD [address] [facility] [address] [facility] [place] [address] Referring Physician Psychiatry 11/16/18 Nathalia Rodas, PT Physical Therapist Physical Therapy 02/14/23 documented as of this encounter
--- OUTSIDE RECORDS SUMMARY | 2024-11-15 03:25 | XMS_ITS | Encounter Summary ---
Author Organization [facility] Address [address] [place] [address] Care Team Providers Care [employer] Name Role Phone Laureano Lantigua MD Primary Care Provider [phone] Tony Washington MD Unavailable [phone] Anahy Rosales MD Unavailable [phone] Nathalia Rodas PT Unavailable Unavailable Reason for Visit * Reason Comments PT Initial Eval * Consultation (Routine) - Closed Specialty Diagnoses / Procedures Referred By Contac t Referred To Contact Physical Therapy Diagnoses Unilateral primary osteoarthritis, left hip Teddy Toussaint MD [address] [facility] [address] [place] [address] Phone: tel: fax: [address] [address] Referral ID Status Reason Start Date Expiration Date V isits Requested Visits Authorized [id number] Closed Specialty Services Required 01/28/2023 02/27/2024 12 12 Encounter Details Date Type Department Care Team (Late st Contact Info) Description 02/14/2023 5:00 PM CDT Therapy [facility] [place] [address] Nathalia Rodas, PT Left hip pain (Primary Dx); Primary osteoarthritis of left hip; Unilateral primary osteoarthritis, left hip Social History [...] Legal Sex Female 1:37 AM EYEWEAR 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 female Teddy Toussaint MD [address] [place] [address] ICD-9-CM ICD-10-CM 1. Left hip pain 719.45 M25.552 2. Primary osteoarthritis of left hip 715.15 M16.12 3. Unilateral primary osteoarthritis, left hip 715.15 M16.12 Ambulatory referral order to Physical Therapy - Subjective Chief complaint: Pt presents to PT with c/o L hip pain. In 2002, fell off a horse and landed on L hip. She had constant hip and leg pain afterwards. History of leg giving out. Had laminectomy, discectomy and fusion at L5-S1 with no relief. She still has back pain in addition to the leg and hip pain. Describes symptoms as a stim unit constantly going into L buttock and into toe. Received injectionin L trochanteric bursitis & L hip injection. Relief provided for about a week. She also has history of stress urinary incontinence and passive UI that has recently increased. She has a history of falling on tailbone x2 times with history of chronic constipation. Previous Medical Management: injections, MRI, hx of bilateral feet surgeries, L ankle surgery, R knee surgery; for spine, radiofrequency ablations, pain management; previous physical therapy Pain Location: L buttock, lateral hip Current Pain: 3/10 Worst Pain: 8/10 Least Pain: 2/10 Aggravating Factors: sleeping, sitting >20 minutes, stairs, walking on incline Alleviating Factors: percocet PRN, ice Function: Current Functional Level: She is a L side sleeper but has pain sleeping on L side. Increased pain with bed mobility. Navigating stairs increases pain. Walking on an incline is difficult and feels weakness and pain. Sitting for 20 minutes will cause pain with standing up4+.5 Patient Goals: decrease pain, improve urinary symptoms Objective Lower Extremity Functional Scale (LEFS): 30/80 ROM: Left Right Hip Flexion WNL Hip Extension WNL Hip External Rotation 45 deg Hip Internal Rotation pain Hip Abduction Manual Muscle Testing: Left Right Hip Flexion 4/5 4+/5 Hip External Rotation 5/5 5/5 Hip Internal Rotation 5/5 5/5 Hip Abduction 5/5 5/5 Knee Extension 5/5 5/5 Knee Flexion 5/5 5/5 Ankle DF 5/5 5/5 Ankle PF Palpation: TTP lateral greater trochanter, sacrum, coccyx, L sacral muscular attachment, L ischial tuberosity, L obturator internus (external palpation) Observations: improved sxs with lumbar and sacral extension Treatment Provided: Cat/cow Quad rock TA recruitment with HEP: Cat/cow, quad rock, TA recruitment with ; [id number] Assessment/Plan Assessment Impairments: abnormal coordination, abnormal or restricted ROM, weight-bearing intolerance, impaired body mechanics, pain with function, impaired physical strength, lacks appropriate home exercise program, decreased mobility Assessment details: Ms. Ramirez is a 52 year old female who presents to the clinic with c/o chronic low back pain and L hip pain. Pain is described as radicular in nature, with increased pain in buttock with prolonged sitting, hip extension, and navigating stairs. She demonstrates good strength of Lhip, however is very tender to palpation along posterior external rotator musculature, sacrum, and coccyx. She also c/o change in urinary continence, both stress UI and passive UI, and due to regionsof tenderness and pain, she may benefit from pelvic floor muscle assessment. She will benefit from skilled physical therapy to address the above impairments to decrease pain and improve functional mobility. Prognosis: fair Goals STG 1:: Pt is IND with HEP. LTG 1:: Pt will demonstrate improved TA stabilization to decrease low back pain. LTG 2:: Pt will report decreased radicular symptoms into L LE. LTG 3:: Pt will navigate stairs with less pain. LTG 4:: Pt will tolerate sitting in a chair for 1 hour with pain 2/10 upon standing. Plan Start time: 1700 End time: 1809 Therapy options: will be seen for skilled therapy services Planned modality interventions: interferential current, thermotherapy (hydrocollator packs), cryotherapy Planned therapy interventions: abdominal trunk stabilization, therapeutic activities, neuromuscularre-education, balance/weight-bearing training, Kinesiotaping, bed mobility training, gait training,manual therapy, body mechanics training, home exercise program Frequency: 2 x/week Duration in weeks: 6 weeks Discussed with: patient Future Treatment Plan: TA progression, glute strengthening, flexibility, potential pelvic floor assessment; bladder log Nathalia Rodas, PT, DPT, COMT I have read and certify that the Physical Therapy Plan of Care as stated is appropriate and medically necessary for Finesse Ramirez 1970 Please return fax to: [phone]. Physician Signature Date documented in this encounter Plan of Treatment Not on file documented as of this encounter Visit Diagnoses Diagnosis Left hip pain- Primary Pain in joint, pelvic region and thigh Primary osteoarthritis of left hip Unilateral primary osteoarthritis, left hip documented in this encounter Orders Outpatient Referral Count Last Ordered Date st Ordered Date AMB REFERRAL ORDER TO PHYSICAL THERAPY 1 documented in this encounter Care Teams [employer] Relationship Specialty Start Date End Date Laureano Lantigua MD [address] [place] [address] PCP - General Internal Medicine 07/30/18 Tony Washington MD [address] [address] Hospitality Job Titles Obstetrics and Gynecology 11/16/18 Anahy Rosales MD [address] [facility] [address] [place] [address] Referring Physician Psychiatry 11/16/18 Nathalia Rodas, PT Physical Therapist Physical Therapy 02/14/23 documented as of this encounter
--- OUTSIDE RECORDS SUMMARY | 2024-11-15 03:25 | XMS_ITS | Encounter Summary ---
Author Organization [facility] Medical Group Address [address] [place] [address] Care Team Providers Care Weed Thinner Name Role Phone Laureano Lantigua MD Primary Care Provider + [phone] Tony Washington MD Unavailable [phone] Anahy Rosales MD Unavailable [phone] Reason for Visit * Reason Comments Gynecologic Exam Annual Follow-up Discuss Blood Work Encounter Details Date Type Department Care Team (Late st Contact Info) Description 01/22/2022 10:00 AM NEW CAR GET READY MECHANIC Office Visit [facility] [address] [place] [address] Tony Washington MD [address] [place] [address] [address] [place] [address] Well woman exam (Primary Dx); MMG script provided, screening for breast cancer Social History Tobacco Use Types Packs/Day Years [...] on file Legal Sex Female 1:37 AM NEW CAR GET READY MECHANIC Gender Identity Female 10/03/2023 10:05 AM NEW CAR GET READY MECHANIC Sexual Orientation Straight 10/03/2023 10 :05 AM NEW CAR GET READY MECHANIC documented as of this encounter Last Filed Vital Signs Vital Sign Reading Time Taken Comments Blood Pressure 146/78 01/22/2022 10:56 AM NEW CAR GET READY MECHANIC Pulse - - Temperature - - Respiratory Rate - - Oxygen Saturation - - Inhaled Oxygen Concentration - - Weight 95.3 kg (210 lb) 01/22/2022 10:13 AM NEW CAR GET READY MECHANIC Height 182.9 cm (6') 01/22/2022 10:13 AM NEW CAR GET READY MECHANIC Body Mass Index 28.48 01/22/2022 10:13 AM NEW CAR GET READY MECHANIC documented in this encounter Progress Notes * Tony Washington MD - 01/22/2022 10:00 AM CST Well Woman Exam Subjective: Pateint presents for: Gynecologic Exam (Annual ) and Follow-up (Discuss Blood Work) Finesse Ramirez is a 51 y.o. year old female who presents for a well woman exam. Finesse reports continued monthly cycles. She feels cold on her cycles. She will wake at night. She drinks espresso during the day. She has had a hx of tinnitus, worse with Wellbutrin; she is on Buspar now for heranxiety. No SI or HI. Her beloved cat which has affected her; she did get a new cat. Contraception:None. Patient's last menstrual period was 01/02/2022. Past Medical History: Diagnosis Date ??? Asthma Asthma; Comments: [facility] 06/27/2014 - ??? Female infertility Infertility, female ??? Fibrocystic breast ??? Hammer toe Hammer toe; Comments: [facility] 06/27/2014 - ??? HX OTHER MEDICAL Sinusitis, ADD, diverticulosis, obesity, OA, asthm ??? HX OTHER MEDICAL Depression, with Anxiety; PCOS ??? HX OTHER MEDICAL Missed Ab ??? HX OTHER MEDICAL ; Outcome: [id number] week 7lb(s) 7 oz Male ??? Hypercholesterolemia High cholesterol; Comments: [facility] 06/27/2014 - ??? Hypertension Hypertension ??? Polycystic ovaries Polycystic ovary syndrome ??? Retinal detachment Detachment of retina; Comments: [facility] 06/27/2014 - Past Surgical History: Procedure Laterality Date ??? ANKLE SURGERY Ankle surgery ??? BREAST BIOPSY ??? CARPAL TUNNEL RELEASE Carpal tunnel release ??? CHOLECYSTECTOMY 03/2018 ??? COLONOSCOPY 03/27/2021 1st ??? ELBOW SURGERY 11/07/2020 ??? FOOT SURGERY left foot surgery ??? KNEE ARTHROPLASTY Knee replacement ??? MOHS SURGERY 07/2021 [facility] ??? [...] SURGERY Left ??? SPINAL FUSION Spinal fusion Current Outpatient Medications: ??? albuterol HFA (PROVENTIL HFA,VENTOLIN HFA,PROAIR HFA) 90 mcg/actuation inhaler, 2 puffs qid prn, Disp: 1 each, Rfl: 11 ??? biotin (APPEAREX) 2,500 mcg tablet, 2,500 mcg., Disp: , Rfl: 0 ??? busPIRone (BUSPAR) 10 mg tablet, Take 1 tablet (10 mg total) by mouth daily as needed (anxiety)(Patient taking differently: Take 15 mg by mouth 2 (two) times a day), Disp: 30 tablet, Rfl: 5 ??? carisoprodoL (SOMA) 350 mg tablet, Take 1 tablet (350 mg total) by mouth nightly as needed for muscle spasms, Disp: 15 tablet, Rfl: 0 ??? ferrous sulfate 325 mg (65 mg of elemental iron) tablet, Take 65 mg of elemental iron by mouth daily with breakfast., Disp: , Rfl: ??? liraglutide, weight loss, 3 mg/0.5 mL (18 mg/3 mL) pen injector, Inject 2.4 mg under the skin daily, Disp: , Rfl: ??? methylphenidate ER (CONCERTA) 18 mg CR tablet, Take 18 mg by mouth daily, Disp: , Rfl: ??? multivitamin (MULTIPLE VITAMINS) tablet tablet, take 1 tablet by oral route every day with food, Disp: 0, Rfl: 0 ??? omeprazole (PriLOSEC) 20 mg capsule, TAKE 1 CAPSULE BY MOUTH qd, Disp: , Rfl: 5 ??? oxyCODONE-acetaminophen (PERCOCET) 5-325 mg per tablet, Take 1 tablet by mouth every 8 (eight) hours as needed for pain, Disp: 20 tablet, Rfl: 0 ??? triamcinolone (KENALOG) 0.1 % ointment, Apply topically 2 (two) times a day as needed for irritation or rash, Disp: 60 g, Rfl: 0 Allergies Allergen Reactions ??? Erythromycin Rash Reaction: Rash, ??? Morphine Nausea only and Vomiting Reaction: Nausea, Vomiting, , Reaction: Nausea, Vomiting, , ??? Vicodin [Hydrocodone-Acetaminophen] Vomiting Family History Problem Relation [...] Grandmother Hypertension; ??? Diabetes Other Diabetes mellitus; Social History Socioeconomic History ??? Marital status: Legally ??? Number of children: 1 Tobacco Use ??? Smoking status: Never Smoker ??? Smokeless tobacco: Never Used Substance and Sexual Activity ??? Alcohol use: Yes ??? Drug use: No ??? Sexual activity: Yes control/protection: None Review of Systems Constitutional: Negative for chills, fatigue, fever and unexpected weight change. HENT: Negative for hearing loss, sore throat, tinnitus and trouble swallowing. Eyes: Negative for pain and visual disturbance. Respiratory: Negative for cough, shortness of breath and wheezing. Cardiovascular: Negative for chest pain, palpitations and leg swelling. Gastrointestinal: Negative for abdominal pain, blood in stool, constipation, diarrhea, nausea and vomiting. Endocrine: Negative for cold intolerance, heat intolerance and polydipsia. Genitourinary: Negative for dyspareunia, dysuria, frequency, hematuria, menstrual problem, pelvic pain, vaginal bleeding and vaginal discharge. Musculoskeletal: Positive for arthralgias. Negative for back pain, joint swelling and myalgias. Skin: Negative for color change and rash. Neurological: Negative for dizziness, numbness and headaches. Hematological: Does not bruise/bleed easily. Psychiatric/Behavioral: Negative for dysphoric mood, sleep disturbance and suicidal ideas. The patient is nervous/anxious. Objective: BP 146/78 (BP Location: Right arm) Ht 182.9 cm (6') Wt 210 lb (95.3 kg) LMP 01/02/2022 BMI 28.48 kg/m?? Physical Exam Constitutional: Appearance: She is well-developed. HENT: Head: Normocephalic. Eyes: Conjunctiva/sclera: Conjunctivae normal. Neck: Thyroid: No thyromegaly. Cardiovascular: Rate and Rhythm: Normal rate and regular rhythm. Pulmonary: Effort: Pulmonary effort is normal. Breath sounds: Normal breath sounds. Chest: Breasts: Right: No mass, nipple discharge, skin change, tenderness or supraclavicular adenopathy. Left: No mass, nipple discharge, skin change, tenderness or supraclavicular adenopathy. Abdominal: Palpations: Abdomen is soft. There is no mass. Tenderness: There is no abdominal tenderness. There is no rebound. Hernia: No hernia is present. Genitourinary: Labia: Right: No lesion. Left: No lesion. Vagina: Normal. No vaginal discharge. Cervix: No cervical motion tenderness. Uterus: Not enlarged and not tender. Adnexa: Right: No mass or tenderness. Left: No mass or tenderness. Comments: Patient declines rectal exam. Musculoskeletal: General: No tenderness. Cervical back: Neck [...] this visit: Well woman exam (Primary) - Pap and High Risk HPV, reflex to Genotyping; Future MMG script provided, screening for breast cancer - Screening Mammogram Bilateral W Devaughn; Future Recommended screenings and preventive care discussed: Breast cancer: Breast Self Exam encouraged. Pap and HR HPV done. MVI daily recommended and cholesterol followed by PCP. Low fat, low carbohydrate diet and exercise encouraged. Return in about 1 year (around 01/22/2023) for annual exam. Call if cycles are heavy or irregular. Tony Washington MD 01/22/2022 documented in this encounter Plan of Treatment Not on file documented as of this encounter Procedures Procedure Name Priority Date/Time Associated Diagnosis Comments PAP AND HIGH RISK HPV, REFLEX TO GENOTYPING Routine 01/22/2022 10:58 AM NEW CAR GET READY MECHANIC Well woman exam documented in this encounter Results * Pap and High Risk HPV, reflex to Genotyping (01/22/2022 10:58 AM NEW CAR GET READY MECHANIC) CLINICAL INFORMATION: [facility] Comment:WELL WOMAN EXAM LMP [facility] Comment:01-02-22 Previous Pap [facility] Comment:INFORMATION NOT PROV IDED Prev. Bx [facility] Comment:INFORMATION NOT PROV IDED SOURCE: [facility] Comment:Cervix, Endocervix Pap, specimen adequacy [facility] Comment: Satisfactory for evaluation. Endocervical/transformation zone component present. HPV interp [facility] Comment:Negative for intraep ithelial lesion or malignancy. Automatic Machine Attendant [facility] Comment: LM, CT(ASCP) CT screening location: [place] [address] [place] [address] Comment [facility] [employer] [facility] Comment: EXPLANATORY NOTE: The Pap is a screening test for cervical cancer. It is not a diagnostic test and is subject to false negative and false positive results. It is most reliable when a satisfactory sample, regularly obtained, is submitted with relevant clinical findings and history, and when the Pap result is evaluated along with historic and current clinical information. Human papillomavirus DNA, High Risk E6/E7 Not Detected NOT DETECTED [facility] Comment: Not Detected High Risk HPV types (16,18,31,33,35,39,45,51,52, 56,58,59,66,68) were not detected. Other HPV types which cause anogenital lesions may be present. The significance of the other types of HPV in malignant processes has not been established. Methodology: Real Time PCR ? Thin prep 01/22/2022 10:5 8 AM NEW CAR GET READY MECHANIC 01/23/2022 12:28 AM NEW CAR GET READY MECHANIC Tony Washington MD LAB CYTOLOGY ORDERABLES Fi nal Result [facility] [address] [place] [address] [facility] [facility] [address] [place] [address] documented in this encounter Visit Diagnoses Diagnosis Well woman exam- Primary Routine general medical examination at a health care facility MMG script provided, screening for breast cancer documented in this encounter Discontinued Medications Medication Sig Discontinue Reason Start Date End Da te sucralfate (CARAFATE) suspension 1 gram/10 mL Take 1 g by mouth. Therapy completed 03/31/2018 01/22/2022 documented as of this encounter Care Teams Weed Thinner Relationship Specialty Start Date End Date Laureano Lantigua MD [address] [place] [address] PCP - General Internal Medicine 07/30/18 Tony Washington MD [address] [place] [address] Color Print Inspector Obstetrics and Gynecology 11/16/18 Anahy Rosales MD [address] [place] [address] Referring Physician Psychiatry 11/16/18 documented as of this encounter
--- OUTSIDE RECORDS SUMMARY | 2024-11-15 03:25 | XMS_ITS | Encounter Summary ---
Author Organization [facility] Healthcare Address [address] [place] [address] Care Team Providers Care Traffic Counter Name Role Phone Laureano Lantigua MD Primary Care Provider [phone] Tony Washington MD Unavailable [phone] Anahy Rosales MD Unavailable Nathalia Rodas PT Unavailable Unavailable Reason for Visit * Reason Comments PT Treatment * Consultation (Routine) - Closed Specialty Diagnoses / Procedures Referred By Contмария t Referred To Contact Physical Therapy Diagnoses Unilateral primary osteoarthritis, left hip Teddy Toussaint MD [address] [facility] [address] [place] [address] Phone: tel: fax: [address] [address] Referral ID Status Reason Start Date Expiration Date V isits Requested Visits Authorized [id number] Closed Specialty Services Required 01/28/2023 02/27/2024 12 12 Encounter Details Date Type Department Care Team (Late st Contact Info) Description 03/07/2023 4:00 PM CDT Therapy [facility] [place] [address] Nathalia Rodas, PT Left hip pain (Primary [...] file Legal Sex Female 1:37 AM RADIOLOGY ADMINISTRATOR Gender Identity Female 10/03/2023 10:05 AM RADIOLOGY ADMINISTRATOR Sexual Orientation Straight 10/03/2023 10 :05 AM RADIOLOGY ADMINISTRATOR documented as of this encounter Progress Notes * Nathalia Rodas, PT - 03/07/2023 4:00 PM CDT PT Treatment 02/26/2023 Finesse Ramirez 1970 ICD-9-CM ICD-10-CM 1. Left hip pain 719.45 M25.552 2. Primary osteoarthritis of left hip 715.15 M16.12 3. Unilateral primary osteoarthritis, left hip 715.15 M16.12 Subjective: Bailey reports pain 3/10 in her L hip today. She is currently under high stress and feels her muscle clenching affects her urinary incontinence and intensifies her pain levels. Objective: See treatment provided Treatment Provided: Education re: core and effect on pelvic floor Education re: bladder retraining (set alarm to pee every 4 hours minimum) Diaphragm breathing Janet pose Happy baby Not performed this date: [...] rock, TA recruitment with marching; [id number] Assessment: Educated pt on diaphragm's function on pelvic floor mobility. Taught diaphragm breathing with janet pose and happy baby with pt noting significant pelvic floor tightness and ability to relax. Also notes it seems to help other muscle tension of body. Also discussed setting alarm to void at minimum every 4 hours due to pt's tendency to hold bladder for a significant time period and then experiencing RASHARD. Plan: Continue progressing as tolerated. Progress core strengthening, hip abd & ER strengthening. Time in: 1614 Time out: 1650 Nathalia Rodas PT, DPT, COMT documented in this encounter Plan of Treatment Not on file documented as of this encounter Visit Diagnoses Diagnosis Left hip pain- Primary Pain in joint, pelvic region and thigh Unilateral primary osteoarthritis, left hip Primary osteoarthritis of left hip documented in this encounter Care Teams Traffic Counter Relationship Specialty Start Date End Date Laureano Lantigua MD [address] [facility] [place] [address] PCP - General Internal Medicine 07/30/18 Tony Washington MD [address] [place] [address] [place] [address] Associate Sales Obstetrics and Gynecology 11/16/18 Anahy Roasles MD [address] [place] [address] [place] [address] Referring Physician Psychiatry 11/16/18 Nathalia Rodas PT Physical Therapist Physical Therapy 02/14/23 documented as of this encounter
--- OUTSIDE RECORDS SUMMARY | 2024-11-15 03:25 | XMS_ITS | Encounter Summary ---
Author Organization [facility] Medical Group Address [address] [place] [address] Care Team Providers Care Outbound Telemarketing Representative Name Role Phone Laureano Lantigua MD Primary Care Provider [phone] Tony Washington MD Unavailable [phone] Anahy Rosales MD Unavailable [phone] Nathalia Rodas PT Unavailable Unavailable Reason for Visit * Reason Onset Date Comments Schedule Laly 02/26/2023 Encounter Details Date Type Department Care Team (Late st Contact Info) Description 02/26/2023 Telephone [facility] [address] [place] [address] [address] [place] [address] Rose Barriga, RN Schedule Laly Social History Tobacco Use Types Packs/Day Years [...] on file Legal Sex Female 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 SHE WAS STILL SPOTTING AT THE END OF HER CYCLE. I DISCUSSED That GENERALLY I WOULD PERFORM AN ENDOMETRIAL BIOPSY PRIOR TO THE ABLATION. SHE IS HAVING REGULAR CYCLES FOR 5 DAYS WITH 2-1/2 VERY HEAVYDAYS. SHE WOULD LIKE TO MOVE UP IN THE SCHEDULE AN DO THE ABLATION THIS WEEK. I DISCUSSED THAT ENDOM ETRIAL BIOPSY RESULTS WOULD NOT BE BACK. I DISCUSSED THAT IF D&C PATHOLOGY SHOWED ENDOMETRIAL HYPERPLASIA OR WORSE THAT SHE WOULD THEN NEED A HYSTERECTOMY. SHE IS WILLING TO TAKE THAT CHANCE. WE WILL PROCEED WITH NOVASURE ABLATION IN 2 DAYS. * Telephone Encounter - Rose Barriga RN - 02/26/2023 2:26 PM CDT Pt aware. Pt thought that JT told her if her lining was thin after her cycle on the US she did not have to have the EMB? Can you confirm? Pt states she is leaving for [place] on 04-09-23. If we can get her in before then she will do it. But she doesn't want to to it in the summer as she can't stay out of water for that long. Will put pt on a cancellation list to hopefully get done prior to 04-09-23. * Telephone Encounter - Rose Barriga RN - 02/26/2023 2:25 PM CDT ----- Message from Tony Washington MD sent at 02/26/2023 12:58 PM CDT ----- Please call patient with results. Let Finesse know that her ultrasound is normal. Can observe cycles or consider medical or surgical treatment. Will need EMB if desires ablation. documented in this encounter Plan of Treatment Not on file documented as of this encounter Visit Diagnoses Not on filedocumented in this encounter Care Teams Outbound Telemarketing Representative Relationship Specialty Start Date End Date Laureano Lantigua MD [address] [facility] [place] [address] PCP - General Internal Medicine 07/30/18 Tony Washington MD [address] [place] [address] Tower Switch Operator Obstetrics and Gynecology 11/16/18 Anahy Rosales MD [address] [place] [address] Referring Physician Psychiatry 11/16/18 Nathalia Rodas, PT Physical Therapist Physical Therapy 02/14/23 documented as of this encounter
--- OUTSIDE RECORDS SUMMARY | 2024-11-15 03:25 | XMS_ITS | Encounter Summary ---
Author Organization [facility] Medical Group Address [address] [address] Care Team Providers Care Digital Content Coordinator Name Role Phone Laureano Lantigua MD Primary Care Provider + [phone] Tony Washington MD Unavailable [phone] Anahy Rosales MD Unavailable [phone] Encounter Details Date Type Department Care Team (Late st Contact Info) Description 01/08/2022 Telephone [facility] [address] [place] [id number] Laureano Lantigua MD [address] [address] Social History Tobacco Use Types Packs/Day Years Used Date Smoking Tobacco: Never Smokeless Tobacco: Never Alcohol Use Standard Drinks/Week Comments Yes 0 (1 standard drink = 0.6 oz pur e alcohol) PHQ-2 Answer Date Recorded PHQ-2 Score 0 11/22/2019 Comments No Sex and Gender Information Value Date Recorded Sex Assigned at Not on file Legal Sex Female 1:37 AM 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 SALESPERSON Gender Identity Female 10/03/2023 10:05 AM FURNITURE SALESPERSON Sexual Orientation Straight 10/03/2023 10 :05 AM FURNITURE SALESPERSON documented as of this encounter Ordered Prescriptions Prescription Sig Dispense Quantity Refills Last Filled Start Date End Date carisoprodoL (SOMA) 350 mg tabletIndications: Muscle Spasm Take 1 tablet (350 mg total) by mouth nightly as needed for muscle spasms 15 tablet 01/09/2022 3 documented in this encounter Miscellaneous Notes * Telephone Encounter - Neftali Chavez RN - 01/09/2022 10:24 AM FURNITURE SALESPERSON Below ref for Soma phoned to [facility] ITURE SALESPERSON * Telephone Encounter - Laureano Lantigua MD - 01/09/2022 8:19 AM FURNITURE SALESPERSON Ok to fill I thought I ordered it ITURE SALESPERSON * Telephone Encounter - Vandana Cavazos RN - 01/08/2022 4:01 PM CST Called informed pt of the message Pt verbalized understanding She will reach out to her ob because she has no symptoms and has regular periods TOTQ:pt did not get a refill on her soma Pt last fill 01/01/2021 Pt last visit 01/04/2022 Pt next visit ??? ITURE SALESPERSON * Telephone Encounter - Laureano Lantigua MD - 01/08/2022 3:30 PM FURNITURE SALESPERSON You can say it with some degree that she is post menopausal or atleast getting there ITURE SALESPERSON * Telephone Encounter - Vandana Cavazos RN - 01/08/2022 3:07 PM CST Called and spoke with the pt She verbalized understanding TOTQ:pt would like to know if her estradiol being low at 14.7 means anything Please advise ITURE SALESPERSON * Telephone Encounter - Laureano Lantigua MD - 01/08/2022 1:44 PM FURNITURE SALESPERSON Rest of her blood work looks good Except for mildly elevated chol 203 ITURE SALESPERSON * Telephone Encounter - Lynne Hoffmann LPN - 01/08/2022 9:48 AM FURNITURE SALESPERSON Juanita @ [facility] Lab states that TLQ ordered Tissue Transglutaminase, Igg at office visit 01/04/22. Juanita states she spoke with [facility] that day to see which tube to draw the blood specimen in and was informed she was to use Gold top tube. However, Juanita states that someone from [facility] did call back after they received the specimen and informed her that she should have used a Red top tube. Therefore, Juanita did inform pt that she needs to come back to the lab to have the lab redrawn. FYI to TLQ -- Pt will be coming back to have the Transglutaminase, Igg collected in the correct tube. Juanita in Lab said she is not sure when pt is coming. Just wanting to let TLQ know in case he is watching for this lab result. ITURE SALESPERSON documented in this encounter Plan of Treatment Not on file documented as of this encounter Visit Diagnoses Not on filedocumented in this encounter Discontinued Medications Medication Sig Discontinue Reason Start Date End Da te carisoprodoL (SOMA) 350 mg tabletIndications:Muscle Spasm Take 1 tablet (350 mg total) by mouth nightly as needed for muscle spasms Reorder 01/01/2021 01/09/2022 documented as of this encounter Care Teams Digital Content Coordinator Relationship Specialty Start Date End Date Laureano Lantigua MD [address] [place] [address] PCP - General Internal Medicine 07/30/18 Tony Washington MD [address] [place] [address] [address] [place] [address] Generation Technologist Obstetrics and Gynecology 11/16/18 Anahy Rosales MD [address] [place] [address] [address] [place] [address] Referring Physician Psychiatry 11/16/18 documented as of this encounter
--- OUTSIDE RECORDS SUMMARY | 2024-11-15 03:25 | XMS_ITS | Encounter Summary ---
Author Organization [facility] Healthcare Address [address] [place] [address] Care Team Providers Care Day Care Director Name Role Phone Laureano Lantigua MD Primary Care Provider [phone] Tony Washington MD Unavailable [phone] Anahy Rosales MD Unavailable [phone] Nathalia Rodas PT Unavailable Unavailable Reason for Visit * Reason Comments PT Treatment * Consultation (Routine) - Closed Specialty Diagnoses / Procedures Referred By Contмария t Referred To Contact Physical Therapy Diagnoses Unilateral primary osteoarthritis, left hip Teddy Toussaint MD [address] [facility] [address] [place] [address] Phone: tel: fax: [address] [address] Referral ID Status Reason Start Date Expiration Date V isits Requested Visits Authorized [id number] Closed Specialty Services Required 01/28/2023 02/27/2024 12 12 Encounter Details Date Type Department Care Team (Late st Contact Info) Description 02/26/2023 5:30 PM CDT Therapy [facility] [place] [address] Nathalia Rodas, PT Left hip pain (Primary [...] on file Legal Sex Female 1:37 AM 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 Left hip pain 719.45 M25.552 2. Primary osteoarthritis of left hip 715.15 M16.12 3. Unilateral primary osteoarthritis, left hip 715.15 M16.12 Subjective: Patient reports pain 4/10 today in low back & L hip. She just returned from a trip and had increased pain with prolonged sitting and laying supine. Objective: See treatment provided Treatment Provided: Prone L/S CPA, sacral mob into ext STM paraspinals, L external rotators Supine hip stretching Cat/cow Quad rock QPed TA contraction Supine Marching Supine BKFO with red TB Bladder log HEP: Cat/cow, quad rock, TA recruitment with marching; [id number] Assessment: Pt with good tolerance to tx. Added sacral mob to lumbar extension during cat/cow with increased relief. She has difficulty finding and engaging TA, but slowing speed of exercises improved sensation of contraction. Provided bladder log for pt to fill out to determine course of action for urinary incontinence and bladder retraining. Plan: Continue progressing as tolerated. Progress core strengthening, hip abd & ER strengthening. Time in: 1729 Time out: 1821 Nathalia Rodas PT, DPT, COMT documented in this encounter Plan of Treatment Not on file documented as of this encounter Visit Diagnoses Diagnosis Left hip pain- Primary Pain in joint, pelvic region and thigh Primary osteoarthritis of left hip Unilateral primary osteoarthritis, left hip documented in this encounter Care Teams Day Care Director Relationship Specialty Start Date End Date Laureano Lantigua MD [address] [place] [address] PCP - General Internal Medicine 07/30/18 Tony Washington MD [address] [place] [address] [place] [address] Phlebotomy Instructor Obstetrics and Gynecology 11/16/18 Anahy Rosales MD [address] [place] [address] [address] [place] [address] Referring Physician Psychiatry 11/16/18 Nathalia Rodas, PT Physical Therapist Physical Therapy 02/14/23 documented as of this encounter
--- OUTSIDE RECORDS SUMMARY | 2024-11-15 03:25 | XMS_ITS | Encounter Summary ---
Author Organization [facility] Address [address] [facility] [address] [place] [address] Care Team Providers Care Perinatal Coordinator Name Role Phone Laureano Lantigua MD Primary Care Provider [phone] Tony Washington MD Unavailable [phone] Anahy Rosales MD Unavailable [phone] Reason for Referral * Diagnostic Imaging (Routine) - Closed Specialty Diagnoses / Procedures Referred By Jesse santana Referred To Contact Diagnoses Menorrhagia with regular cycle Procedures US Pelvis W Endovaginal Tony Washington MD [address] [place] [address] [address] [place] [address] Phone: tel: fax: [facility] Referral ID Status Reason Start Date Expiration Date Visits Re quested Visits Authorized [id number] Closed 01/28/2023 02/27/2024 1 1 Reason for Visit * Reason Comments Gynecologic Exam Annual Encounter Details Date Type Department Care Team (Late st Contact Info) Description 01/28/2023 2:15 PM CDT Office Visit [facility] [address] [place] [address] [address] [place] [address] Tony Washington MD [address] [place] [address] [address] [place] [address] Encounter for gynecological examination with abnormal finding (Primary Dx); Visit for screening mammogram; Screening for colon cancer; Menorrhagia with regular cycle; PCOS (polycystic ovarian syndrome); Fatigue, unspecified type; Vitamin D deficiency; Chronic back pain, unspecified back location, unspecified back pain laterality; Laboratory examination ordered as part of a routine general medical examination; Elevated blood pressure reading Social History Tobacco Use Types Packs/Day Years [...] on file Legal Sex Female 1:37 AM GREEN FEED ATTENDANT Gender Identity Female 10/03/2023 10:05 AM GREEN FEED ATTENDANT Sexual Orientation Straight 10/03/2023 10 :05 AM GREEN FEED ATTENDANT documented as of this encounter Last Filed Vital Signs Vital Sign Reading Time Taken Comments Blood Pressure 154/80 01/28/2023 3:15 PM CDT Pulse - - Temperature - - Respiratory Rate - - Oxygen Saturation - - Inhaled Oxygen Concentration - - Weight 99.3 kg (219 lb) 01/28/2023 2:12 PM CDT Height 182.9 cm (6') 01/28/2023 2:12 PM CDT Body Mass Index 29.7 01/28/2023 2:12 PM CDT documented in this encounter Progress Notes * Tony Washington MD - 01/28/2023 2:15 PM CDT Well Woman Exam Subjective: Pateint presents for: Gynecologic Exam (Annual) Finesse Ramirez is a 53 y.o. year old female who presents for a well woman exam and problem visit. Finesse is tiring of her heavy cycles interfering with daily living. Her cycles used to be 5 weeks and now are coming every 3.5-4 weeks and are heavy with 2-1/2 days out of 5 extremely heavy, flooding and overflowing pads and clothes. She will use a super plus tampon and pad. She also is requesting to have her hormones checked. She reports hot flashes at times. She had a steroid shot. She hasnoticed brain fog and fatigue. She has some urinary incontinence. She is interested in an endometrial ablation. Ultrasound in November of 2019 shows that the uterus measures 9.4 x 4.5 x 6.2 cm which is normal size. Contraception:None. Patient's last menstrual period was 01/06/2023. Past Medical History: Diagnosis Date Asthma Asthma; Comments: [facility] 06/27/2014 - Female infertility Infertility, female Fibrocystic breast Hammer toe Hammer toe; Comments: [facility] 06/27/2014 - HX OTHER MEDICAL Sinusitis, ADD, diverticulosis, obesity, OA, asthm HX OTHER MEDICAL Depression, with Anxiety; PCOS HX OTHER MEDICAL Missed Ab HX OTHER MEDICAL ; Outcome: [id number] week 7lb(s) 7 oz Male Hypercholesterolemia High cholesterol; Comments: [facility] 06/27/2014 - Hypertension Hypertension Polycystic ovaries Polycystic ovary syndrome Retinal detachment Detachment of retina; Comments: [facility] 06/27/2014 - Past Surgical History: Procedure Laterality Date ANKLE SURGERY Ankle surgery BREAST BIOPSY CARPAL TUNNEL RELEASE Carpal tunnel release CHOLECYSTECTOMY 03/2018 COLONOSCOPY 03/27/2021 1st ELBOW SURGERY 11/07/2020 FOOT SURGERY left foot surgery KNEE ARTHROPLASTY Knee replacement MOHS SURGERY 07/2021 [facility] OTHER SURGICAL HISTORY Left Rotator Cuff Repair, L. ankle surgery, back surgery x2 OTHER SURGICAL HISTORY samuel carpal tunnel repair, eye surgery, ankle and foot surger OTHER SURGICAL HISTORY retina re-attachment OTHER SURGICAL HISTORY Missed Ab: Suction D&C OTHER SURGICAL HISTORY Right ACL repair OTHER SURGICAL HISTORY 2003 : 1 hr labor ROTATOR CUFF REPAIR rotator cuff surgery ROTATOR CUFF REPAIR Rotator cuff repair SHOULDER SURGERY Left SPINAL FUSION Spinal fusion Current Outpatient Medications: albuterol HFA (PROVENTIL HFA,VENTOLIN HFA,PROAIR HFA) 90 mcg/actuation inhaler, 2 puffs qid prn, Disp: 1 each, Rfl: 11 biotin (APPEAREX) 2,500 mcg tablet, 2,500 mcg., Disp: , Rfl: 0 busPIRone (BUSPAR) 10 mg tablet, Take 1 tablet (10 mg total) by mouth daily as needed (anxiety) (Patient taking differently: Take 15 mg by mouth 4 (four) times a day), Disp: 30 tablet, Rfl: 5 carisoprodoL (SOMA) 350 mg tablet, Take 1 tablet (350 mg total) by mouth nightly as needed for muscle spasms, Disp: 15 tablet, Rfl: 0 escitalopram (LEXAPRO) 10 mg tablet, Take 10 mg by mouth daily, Disp: , Rfl: ferrous sulfate 325 mg (65 mg of elemental iron) tablet, Take 65 mg of elemental iron by mouth daily with breakfast., Disp: , Rfl: magnesium phosphate, bulk, powder, , Disp: , Rfl: methylphenidate ER (CONCERTA) 27 mg CR tablet, Take 27 mg by mouth every morning, Disp: , Rfl: multivitamin (MULTIPLE VITAMINS) tablet tablet, take 1 tablet by oral route every day with food, Disp: 0, Rfl: 0 oxyCODONE-acetaminophen (PERCOCET) 5-325 mg per tablet, Take 1 tablet by mouth every 8 (eight) hours as needed for pain, Disp: 20 tablet, Rfl: 0 trazodone HCl (TRAZODONE ORAL), Take by mouth, Disp: , Rfl: Allergies Allergen Reactions Erythromycin Rash Reaction: Rash, [...] Sexual activity: Yes control/protection: None Alcohol Use: Not on file Review of Systems Constitutional: Positive for unexpected weight change (gain). Negative for chills, fatigue and fever. HENT: Negative for hearing loss, sore throat, tinnitus and trouble swallowing. Eyes: Positive for visual disturbance (blurred). Negative for pain. Respiratory: Negative for cough, shortness of breath and wheezing. Cardiovascular: Negative for chest pain, palpitations and leg swelling. Gastrointestinal: Negative for abdominal pain, blood in stool, constipation, diarrhea, nausea and vomiting. Endocrine: Negative for cold intolerance, heat intolerance and polydipsia. Genitourinary: Negative for dyspareunia, dysuria, frequency, hematuria, menstrual problem, pelvic pain, vaginal bleeding and vaginal discharge. Some incontinence Musculoskeletal: Positive for arthralgias, back pain and myalgias. Negative for joint swelling. Skin: Negative for color change and rash. Neurological: Negative for dizziness, numbness and headaches. Hematological: Does not bruise/bleed easily. Psychiatric/Behavioral: Positive for dysphoric mood (No SI or HI). Negative for sleep disturbance and suicidal ideas. The patient is nervous/anxious. Objective: BP 154/80 (BP Location: Right arm) Ht 182.9 cm (6') Wt 219 lb (99.3 kg) LMP 01/06/2023 BMI 29.70 kg/m?? Physical Exam Constitutional: Appearance: She is [...] Diagnoses and all orders for this visit: Encounter for gynecological examination with abnormal finding (Primary) Comments: Patient requests lab evaluation. Orders: - Pap with reflex to High Risk HPV; Future Visit for screening mammogram Comments: Script provided. Orders: - Screening Mammogram Bilateral W Devaughn; Future Screening for colon cancer Comments: Seracult is negative. Colonoscopy was done 03/2021. Menorrhagia with regular cycle Assessment & Plan: Call on menstrual cycle to arrange a pelvic ultrasound immediately following her cycle. We will call with results. She will need an endometrial biopsy if EMC lining is not thin. Will proceed with a dx hysteroscopy, D&C and Novasure endometrial ablation. I have discussed nature of procedure and recovery. Risks, benefits and alternatives discussed including risks of bleeding, infection, anesthesia and injury. Expected outcomes discussed with failure rate, possible early menopause and possibleneed for hysterectomy if unsuccessful. Patient wishes to proceed. Orders: - US Pelvis W Endovaginal; Future - CBC with auto differential; Future PCOS (polycystic ovarian syndrome) Comments: Will check androgens. Orders: - Insulin, total; Future - TSH reflex to free T4; Future - Cortisol; Future - Hemoglobin A1c; Future - DHEA-sulfate; Future - Testosterone, Total and Free, Serum; Future Fatigue, unspecified type - Insulin, total; Future - TSH reflex to free T4; Future - CBC with auto differential; Future - Comprehensive metabolic panel; Future - Vitamin D 25 hydroxy; Future - DHEA-sulfate; Future - Testosterone, Total and Free, Serum; Future Vitamin D deficiency - Comprehensive metabolic panel; Future - Vitamin D 25 hydroxy; Future - CRP (acute phase); Future Chronic back pain, unspecified back location, unspecified back pain laterality - Comprehensive metabolic panel; Future Laboratory examination ordered as part of a routine general medical examination - Lipid panel; Future - CBC with auto differential; Future - Hemoglobin A1c; Future Elevated blood pressure reading Comments: Mildly elevated; recommend recheck in next month. Recommended screenings and preventive care discussed: Breast Self Exam encouraged. Pap with reflex done. MVI daily recommended and cholesterol screening discussed. Low fat, low carbohydrate diet and exercise encouraged. Return in about 1 year (around 01/29/2024) for annual exam. Will call with lab and ultrasound results. Will plan Novasure endometrial ablation. Tony Washington MD 01/28/2023 documented in this encounter Miscellaneous Notes * Assessment & Plan Note - Tony Washington MD - 03/08/2023 11:17 AM CDT Associated Problem(s): Menorrhagia with regular cycle (Deleted) Call on menstrual cycle to arrange a pelvic ultrasound immediately following her cycle. We will call with results. She will need an endometrial biopsy if EMC lining is not thin. Will proceed with a dx hysteroscopy, D&C and Novasure endometrial ablation. I have discussed nature of procedure and recovery. Risks, benefits and alternatives discussed including risks of bleeding, infection, anesthesia and injury. Expected outcomes discussed with failure rate, possible early menopause and possibleneed for hysterectomy if unsuccessful. Patient wishes to proceed. documented in this encounter Plan of Treatment Scheduled Orders Name Type Priority Associated Diagnoses Orde r Schedule Insulin, total Lab Routine PCOS (polycystic ovarian syndrome) Fatigue, unspecified type Expected: 01/28/2023, Expires: 01/29/2024 TSH reflex to free T4 Lab Routine PCOS (polycystic ovarian syndrome) Fatigue, unspecified type Expected: 01/28/2023, Expires: 01/29/2024 Cortisol Lab Routine PCOS (polycystic ovarian syndrome) Expected: 01/28/2023, Expires: 01/29/2024 Lipid panel Lab Routine Laboratory examination ordered as part of a routine general medical examination Expected: 01/28/2023, Expires: 01/29/2024 CBC with auto differential Lab Routine Menorrhagia with regular cycle Fatigue, unspecified type Laboratory examination ordered as part of a routine general medical examination Expected: 01/28/2023, Expires: 01/29/2024 Comprehensive metabolic panel Lab Routine Fatigue, unspecified type Vitamin D deficiency Chronic back pain, unspecified back location, unspecified back pain laterality Expected: 01/28/2023, Expires: 01/29/2024 Vitamin D 25 hydroxy Lab Routine Fatigue, unspecified type Vitamin D deficiency Expected: 01/28/2023, Expires: 01/29/2024 CRP (acute phase) Lab Routine Vitamin D deficiency Expected: 01/28/2023, Expires: 01/29/2024 Hemoglobin A1c Lab Routine PCOS (polycystic ovarian syndrome) Laboratory examination ordered as part of a routine general medical examination Expected: 01/28/2023, Expires: 01/29/2024 DHEA-sulfate Lab Routine PCOS (polycystic ovarian syndrome) Fatigue, unspecified type Expected: 01/28/2023, Expires: 01/29/2024 Testosterone, Total and Free, Serum Lab Routine PCOS (polycystic ovarian syndrome) Fatigue, unspecified type Expected: 01/28/2023, Expires: 01/29/2024 documented as of this encounter Procedures Procedure Name Priority Date/Time Associated Diagnosis Comments PAP WITH REFLEX TO HIGH RISK HPV Routine 01/28/2023 2:43 PM CDT Encounter for gynecological examination with abnormal finding documented in this encounter Results * US [...] Normal appearing ovariesbilaterally. us Tony Washington MD G US PROCEDURES Final Re sult * Pap with reflex to High Risk HPV (01/28/2023 2:43 PM CDT) CLINICAL INFORMATION: Arsenio Hwang Comment:WELL WOMAN EXAM LMP Arsenio Hwang Comment:01-06-23 Previous Pap Arsenio Hwang Comment:NONE GIVEN Prev. Bx Arsenio Hwang Comment:NONE GIVEN SOURCE: Arsenio Hwang Comment:Cervix, Endocervix Pap, specimen adequacy Arsenio Hwang Comment: Satisfactory for evaluation. Endocervical/transformation zone component present. HPV interp Arsenio Hwang Comment:Negative for intraep ithelial lesion or malignancy. COMMENTS Arsenio Smart Picture TechYohana Hwang Comment: This Pap test has been evaluated with computer assisted technology. Spring Coiler Joel Geronimo Comment: TLS, CT(ASCP) CT Screening Location: [place] [address] [address] [facility] [address] Comment Arsenio LeoneYohana Hwang Comment: EXPLANATORY NOTE: The Pap is a screening test for cervical cancer. It is not a diagnostic test and is subject to false negative and false positive results. It is most reliable when a satisfactory sample, regularly obtained, is submitted with relevant clinical findings and history, and when the Pap result is evaluated along with historic and current clinical information. Thin prep 01/28/2023 2:43 PM CDT 01/29/2023 2:12 AM CDT us Tony Washington MD LAB CYTOLOGY ORDERABLES Fi nal Result [place] [address] [place] [address] documented in this encounter Visit Diagnoses Diagnosis Encounter for gynecological examination with abnormal finding- Primary Visit for screening mammogram Screening for colon cancer Special screening for malignant neoplasms, colon Menorrhagia with regular cycle PCOS (polycystic ovarian syndrome) Polycystic ovaries Fatigue, unspecified type Vitamin D deficiency Chronic back pain, unspecified back location, unspecified back pain laterality Laboratory examination ordered as part of a routine general medical examination Elevated blood pressure reading Elevated blood pressure reading without diagnosis of hypertension Menorrhagia with regular cycle documented in this encounter Discontinued Medications Medication Sig Discontinue Reason Start Date End Da te liraglutide, weight loss, 3 mg/0.5 mL (18 mg/3 mL) pen injector Inject 2.4 mg under the skin daily Therapy completed 01/28/2023 methylphenidate ER (CONCERTA) 18 mg CR tablet Take 18 mg by mouth daily Therapy completed 09/13/2019 01/28/2023 triamcinolone (KENALOG) 0.1 % ointment Apply topically 2 (two) times a day as needed for irritation or rash Therapy completed 01/04/2022 01/28/2023 documented as of this encounter Historical Medications * This list may reflect changes made after this encounter. magnesium phosphate, bulk, powderIndications:s upplement Take 1 tablet by mouth every morning trazodone HCl (TRAZODONE ORAL) Take by mouth 03/10 3 escitalopram (LEXAPRO) 10 mg tablet Take 10 mg by mouth daily 3 methylphenidate ER (CONCERTA) 27 mg CR tabletIndications:A ttention-Deficit Hyperactivity Disorder Take 1 tablet (27 mg total) by mouth every morning 4 added in this encounter Care Teams Perinatal Coordinator Relationship Specialty Start Date End Date Laureano Lantigua MD [address] [place] [address] PCP - General Internal Medicine 07/30/18 Tony Washington MD [address] [facility] [address] [place] [address] Voltage Tester Obstetrics and Gynecology 11/16/18 Anahy Rosales MD [address] [facility] [place] [address] Referring Physician Psychiatry 11/16/18 documented as of this encounter
--- OUTSIDE RECORDS SUMMARY | 2024-11-15 03:25 | XMS_ITS | Encounter Summary ---
Author Organization [facility] Address [address] [address] Care Team Providers Care Radiation Protection Engineer Name Role Phone Laureano Lantigua MD Primary Care Provider + [phone] Tony Washington MD Unavailable [phone] Anahy Rosales MD Unavailable [phone] Encounter Details Date Type Department Care Team (Late st Contact Info) Description 01/04/2022 Telephone [facility] [address] [place] [id number] Laureano Lantigua MD [address] [address] Social History Tobacco Use Types Packs/Day Years Used Date Smoking Tobacco: Never Smokeless Tobacco: Never Alcohol Use Standard Drinks/Week Comments Yes 0 (1 standard drink = 0.6 oz pur e alcohol) PHQ-2 Answer Date Recorded PHQ-2 Score 0 11/22/2019 Comments No Sex and Gender Information Value Date Recorded Sex Assigned at Not on file Legal Sex Female 1:37 AM GRAPE GROWER Gender Identity Female 10/03/2023 10:05 AM GRAPE GROWER Sexual Orientation Straight 10/03/2023 10 :05 AM GRAPE GROWER documented as of this encounter Ordered Prescriptions Prescription Sig Dispense Quantity Refills Last Filled Start Date End Date oxyCODONE-acetamin ophen (PERCOCET) 5-325 mg per tabletIndications: Pain Take 1 tablet by mouth every 8 (eight) hours as needed for pain 20 tablet 01/04/2022 03/12/2023 documented in this encounter Miscellaneous Notes * Telephone Encounter - Vandana Cavazos RN - 01/04/2022 3:[address] Lantigua Pt to have 20 tabs of the percocet hand written rx to the pt E GROWER documented in this encounter Plan of Treatment Not on file documented as of this encounter Visit Diagnoses Not on filedocumented in this encounter Discontinued Medications Medication Sig Discontinue Reason Start Date End Da te oxyCODONE-acetaminophen (PERCOCET) 5-325 mg per tabletIndications:Pain Take 1 tablet by mouth every 8 (eight) hours as needed for pain Reorder 01/01/2021 01/04/2022 documented as of this encounter Care Teams Radiation Protection Engineer Relationship Specialty Start Date End Date Laureano Lantigua MD [address] [place] [address] PCP - General Internal Medicine 07/30/18 Tony Washington MD [address] [place] [address] [place] [address] Technical Applications Specialist Obstetrics and Gynecology 11/16/18 Anahy Rosales MD [address] [place] [address] Referring Physician Psychiatry 11/16/18 documented as of this encounter
--- OUTSIDE RECORDS SUMMARY | 2024-11-15 03:25 | XMS_ITS | Encounter Summary ---
Author Organization [facility] Address [address] [address] Care Team Providers Care Hand I Tube Bender Name Role Phone Laureano Lantigua MD Primary Care Provider + [phone] Tony Washington MD Unavailable [phone] Anahy Rosales MD Unavailable [phone] Reason for Visit * Reason Onset Date Comments REQUESTING BLOOD WORK 09/18/2022 Encounter Details Date Type Department Care Team (Late st Contact Info) Description 09/18/2022 Telephone [facility] [address] [place] [id number] Laureano Lantigua MD [address] [facility] [place] [address] REQUESTING BLOOD WORK Social History Tobacco Use Types Packs/Day Years [...] on file Legal Sex Female 1:37 AM PUMP SERVICE SUPERVISOR Gender Identity Female 10/03/2023 10:05 AM PUMP SERVICE SUPERVISOR Sexual Orientation Straight 10/03/2023 10 :05 AM PUMP SERVICE SUPERVISOR documented as of this encounter Miscellaneous Notes * Telephone Encounter - Neftali Chavez RN - 09/19/2022 8:38 AM CDT Spoke to pt re: below Appt scheduled for 09-26-22 @ 3:40 to further discuss c/o et req for lab testing Pt voices understand et has no further questions or concerns @ this time * Telephone Encounter - Neftali Chavez RN - 09/18/2022 1:49 PM CDT [facility] Cbn#[phone] * Telephone Encounter - Shae Garcia - 09/18/2022 12:29 PM CDT Pt calling requesting to have blood work done to check if levels are elevated . Pt requested the nurse call her back. States she has inflammation in hands, feet and has pain in joints trying to close hands, ankles and feet. Getting worse w/cold weather. States her mother has diagnosis of polymyalgia rheumatica, and her mother's plater apprentice told herto call Dr. JAY and ask to have the levels checked. [facility] in [place] CBN: [phone] [facility] documented in this encounter Plan of Treatment Not on file documented as of this encounter Visit Diagnoses Not on filedocumented in this encounter Care Teams Hand I Tube Bender Relationship Specialty Start Date End Date Laureano Lantigua MD [address] [place] [address] PCP - General Internal Medicine 07/30/18 Tony Washington MD [address] [place] [address] [address] [place] [address] Physician Aide Obstetrics and Gynecology 11/16/18 Anahy Rosales MD [address] [place] [address] [address] [place] [address] Referring Physician Psychiatry 11/16/18 documented as of this encounter
--- OUTSIDE RECORDS SUMMARY | 2024-11-15 03:26 | XMS_ITS | Encounter Summary ---
Author Organization [facility] Address [address] [address] Care Team Providers Care Pattern Hanger Name Role Phone Laureano Lantigua MD Primary Care Provider [phone]- [phone] Tony Washington MD Unavailable [phone] Anahy Rosales MD Unavailable [phone] Reason for Visit * Reason Onset Date Comments Med Refill 10/19/2020 Encounter Details Date Type Department Care Team (Late st Contact Info) Description 10/19/2020 Telephone [facility] [address] [facility] [place] [address] Laureano Lantigua MD [address] [place] [address] Med Refill Social History Tobacco Use Types Packs/Day Years Used Date Smoking Tobacco: Never Smokeless Tobacco: Never Alcohol Use Standard Drinks/Week Comments Yes 0 (1 standard drink = 0.6 oz pur e alcohol) PHQ-2 Answer Date Recorded PHQ-2 Score 0 11/22/2019 Comments No Sex and Gender Information Value Date Recorded Sex Assigned at Not on file Legal Sex Female 1:37 AM FREELANCE DIGITAL PROJECT MANAGER Gender Identity Female 10/03/2023 10:05 AM FREELANCE DIGITAL PROJECT MANAGER Sexual Orientation Straight 10/03/2023 10 :05 AM FREELANCE DIGITAL PROJECT MANAGER documented as of this encounter Ordered Prescriptions Prescription Sig Dispense Quantity Refills Last Filled Start Date End Date fluconazole (DIFLUCAN) 150 mg tablet Take 1 tablet (150 mg total) by mouth once for 1 dose 1 tablet 10/19/2020 10/19/2020 documented in this encounter Miscellaneous Notes * Telephone Encounter - Concepción Rothman NP - 10/19/2020 11:31 AM FREELANCE DIGITAL PROJECT MANAGER Diflucan RX sent to [facility]. LANCE DIGITAL PROJECT MANAGER * Telephone Encounter - Laureano Lantigua MD - 10/19/2020 10:46 AM FREELANCE DIGITAL PROJECT MANAGER DIFLUCAN 150 MG PO TIMES ONE LANCE DIGITAL PROJECT MANAGER * Telephone Encounter - Jenifer Garza LPN - 10/19/2020 9:59 AM FREELANCE DIGITAL PROJECT MANAGER [facility] sent fax that says pt requesting rx for diflucan after she takes augmentin LANCE DIGITAL PROJECT MANAGER documented in this encounter Plan of Treatment Not on file documented as of this encounter Visit Diagnoses Not on filedocumented in this encounter Care Teams Pattern Hanger Relationship Specialty Start Date End Date Laureano Lantigua MD [address] [place] [address] PCP - General Internal Medicine 07/30/18 Tony Washington MD [address] [facility] [place] [address] Commercial Relationship Manager Obstetrics and Gynecology 11/16/18 Anahy Rosales MD [address] [facility] [place] [address] Referring Physician Psychiatry 11/16/18 documented as of this encounter
--- OUTSIDE RECORDS SUMMARY | 2024-11-15 03:26 | XMS_ITS | Encounter Summary ---
Author Organization [facility] Address [address] [address] Care Team Providers Care Spring Winder Name Role Phone Laureano Lantigua MD Primary Care Provider [phone] Tony Washington MD Unavailable [phone] Anahy Rosales MD Unavailable [phone] Reason for Visit * Reason Onset Date Comments wants steroid 11/04/2019 Encounter Details Date Type Department Care Team (Late st Contact Info) Description 11/04/2019 Telephone [facility] [address] [facility] [place] [address] Laureano Lantigua MD [address] [place] [address] wants steroid Social History Tobacco Use Types Packs/Day Years Used Date Smoking Tobacco: Never Smokeless Tobacco: Never Alcohol Use Standard Drinks/Week Comments Yes 0 (1 standard drink = 0.6 oz pur e alcohol) Comments No Sex and Gender Information Value Date Recorded Sex Assigned at Not on file Legal Sex Female 1:37 AM VENDING MANAGER Gender Identity Female 10/03/2023 10:05 AM VENDING MANAGER Sexual Orientation Straight 10/03/2023 10 :05 AM VENDING MANAGER documented as of this encounter Ordered Prescriptions Prescription Sig Dispense Quantity Refills Last Filled Start Date End Date methylPREDNISolone (MEDROL DOSEPACK) 4 mg DosepackIndication s:Anti-inflammator y Take as directed on package. 21 tablet 11/04/2019 9 documented in this encounter Miscellaneous Notes * Telephone Encounter - Bre Tran RN - 11/08/2019 12:01 PM VENDING MANAGER QA nurse has noted on a 11/18/18 telephone encounter documented by FebruaryJean Pierre that Arsenio was notifiedto utilize code E55.9 for Vitamin D test. The test in question is now one and a half years old. I don't know what other action our office could provide at this point. Potentially this is an amount that is not covered by patient's insurance (I.e possibly deductible) that patient is responsible for. It is the patient's responsibility to follow-up with outstanding balances due on her accounts. Sounds like this is something she should have achieved resolution on some time ago. If patient is choosing to not have ordered labs by Dr. JAY done, and he is unable to provide treatment because he can not see current lab results on this patient, then she may need to seek her healthcare elsewhere. ING MANAGER * Telephone Encounter - Selin Real - 11/08/2019 8:25 AM CST Pt did not have labs in April of 2019 The labs were done in April of 2018 Also, The 2018 labs were recoded and sent to [facility] This can be seen in epic. They were done July of [address]. Lantigua is req that this be sent to bre for further assistance ING MANAGER * Telephone Encounter - Maddison Willams RN - 11/04/2019 1:00 PM VENDING MANAGER Called and spoke to pt. Informed of Dr JAY approval of medrol dose pack as requested. Pt verbalized understanding. eRX for: methylPREDNISolone (MEDROL DOSEPACK) 4 mg Dosepack Summary: Take as directed on package., Normal Start: 11/04/2019 End: 11/10/2019 Ord/Sold: 11/04/2019 (O) Report Long-term: Pharmacy: [id number] - [place] [address] [facility] Med Dose History Patient Sig: Take as directed on package. Ordered on: 11/04/2019 Authorized by: LAUREANO LANTIGUA Dispense: 21 tablet Refills: 0 ordered Admin Instructions: Take as directed on package. ING MANAGER * Telephone Encounter - Laureano Lantigua MD - 11/04/2019 12:55 PM VENDING MANAGER Medrol dose pk Can we code it correctly ING MANAGER * Telephone Encounter - Vandana Cavazos RN - 11/04/2019 12:45 PM VENDING MANAGER Pt called back and she is having clear nasal drainage but the mucinex is helping Pt does need a dose pack because the drainage is irritating her lungs and she is having trouble with coughing and wheezing Pt is using her inhaler and nebulizer treatments TOTQ:pt would like a dose pack for her asthma using inhaler but it is not helping at this time due to the fact of the sinus drainage ING MANAGER * Telephone Encounter - Vandana Cavazos RN - 11/04/2019 12:39 PM VENDING MANAGER Called and left a message for pt to call us back ING MANAGER * Telephone Encounter - Monika Powell - 11/04/2019 12:26 PM CST Pharm: [facility] [place] CBN: [phone] 1) Asking for a steroid. -c/o dry hacking cough. Has been using inhalers with no help. -states has a TQ appt November 22 so would like a rx sent. 2) states she's having an issue with [facility], she owes $240 for a April 2019 Vit D that was coded wrong, and she's not getting any more labs until that issue is resolved. So letting TQ know there won't be labs draw for the November visit ING MANAGER documented in this encounter Plan of Treatment Not on file documented as of this encounter Visit Diagnoses Not on filedocumented in this encounter Care Teams Spring Winder Relationship Specialty Start Date End Date Laureano Lantigua MD [address] [place] [address] PCP - General Internal Medicine 07/30/18 Tony Washington MD [address] [place] [address] Lab Director Obstetrics and Gynecology 11/16/18 Anahy Rosales MD [address] [place] [address] Referring Physician Psychiatry 11/16/18 documented as of this encounter
--- OUTSIDE RECORDS SUMMARY | 2024-11-15 03:26 | XMS_ITS | Encounter Summary ---
Author Organization [facility] Address [address] [address] Care Team Providers Care Striping Machine Operator Name Role Phone Laureano Lantigua MD Primary Care Provider +- [phone] Tony Washington MD Unavailable [phone] Anahy Rosales MD Unavailable [phone] Encounter Details Date Type Department Care Team (Late st Contact Info) Description 11/22/2020 4:10 PM CARDROOM ATTENDANT Lab [facility] [address] [place] [id number] Itching Social History Tobacco Use Types Packs/Day Years Used Date Smoking Tobacco: Never Smokeless Tobacco: Never Alcohol Use Standard Drinks/Week Comments Yes 0 (1 standard drink = 0.6 oz pur e alcohol) PHQ-2 Answer Date Recorded PHQ-2 Score 0 11/22/2019 Comments No Sex and Gender Information Value Date Recorded Sex Assigned at Not on file Legal Sex Female 1:37 AM CARDROOM ATTENDANT Gender Identity Female 10/03/2023 10:05 AM CARDROOM ATTENDANT Sexual Orientation Straight 10/03/2023 10 :05 AM CARDROOM ATTENDANT documented as of this encounter Plan of Treatment Not on file documented as of this encounter Visit Diagnoses Diagnosis Itching Unspecified pruritic disorder documented in this encounter Care Teams Striping Machine Operator Relationship Specialty Start Date End Date Laureano Lantigua MD [address] [place] [address] PCP - General Internal Medicine 07/30/18 Tony Washington MD [address] [facility] [address] [place] [address] Lease Administrator Obstetrics and Gynecology 11/16/18 Anahy Rosales MD [address] [facility] [address] [place] [address] Referring Physician Psychiatry 11/16/18 documented as of this encounter
--- OUTSIDE RECORDS SUMMARY | 2024-11-15 03:26 | XMS_ITS | Encounter Summary ---
Author Organization [facility] Address [address] [facility] [address] [place] [address] Care Team Providers Care Medical Leader Name Role Phone Laureano Lantigua MD Primary Care Provider [phone] Tony Washington MD Unavailable [phone] Anahy Rosales MD Unavailable [phone] Reason for Referral * Diagnostic Imaging (Routine) - Closed Specialty Diagnoses / Procedures [facility]erred To Contact Diagnoses Menorrhagia with regular cycle Procedures US Pelvis W Endovaginal Tony Washington MD [address] [place] [address] [address] [place] [address] Phone: tel: fax: [facility] Referral ID Status Reason Start Date Expiration Date Visits Re quested Visits Authorized [id number] Closed 12/13/2019 06/23/2021 1 1 DITER SERVICE ORDER Reason for Visit * Reason Comments Menorrhagia n92.0 Encounter Details Date Type Department Care Team (Latest Contact Info) Description 12/13/2019 8:30 AM EXPEDITER SERVICE ORDER Clinical Support [facility] [address] [place] [address] Menorrhagia with regular cycle (Primary Dx) Social History Tobacco Use Types Packs/Day Years Used Date Smoking Tobacco: Never Smokeless Tobacco: Never Alcohol Use Standard Drinks/Week Comments Yes 0 (1 standard drink = 0.6 oz pur e alcohol) PHQ-2 Answer Date Recorded PHQ-2 Score 0 11/22/2019 Comments No Sex and Gender Information Value Date Recorded Sex Assigned at Not on file Legal Sex Female 1:37 AM EXPEDITER SERVICE ORDER Gender Identity Female 10/03/2023 10:05 AM EXPEDITER SERVICE ORDER Sexual Orientation Straight 10/03/2023 10 :05 AM EXPEDITER SERVICE ORDER documented as of this encounter Plan of Treatment Not on file documented as of this encounter Procedures Procedure Name Priority Date/Time Associated Diagnosis Comments US PELVIS W ENDOVAGINAL Schedule Routine, Read Routine (OP Routine) 12/13/2019 5:31 PM EXPEDITER SERVICE ORDER Menorrhagia with regular cycle documented in this encounter Results * US Pelvis W Endovaginal (12/13/2019 5:31 PM EXPEDITER SERVICE ORDER) Anatomical Region Laterality Modality Pelvis N/A Ultrasound Narrative 12/13/2019 5:31 PM EXPEDITER SERVICE ORDER [facility] Pelvic Ultrasound Date of exam: 12/13/2019 Diagnoses and all orders for this visit: Menorrhagia with regular cycle (Primary) - ? US Pelvis W Endovaginal Clinical history: ??Patient presents for pelvic ultrasound secondary to heavy menstrual cycles. Patient's last menstrual period was 11/30/2019 (exact date). Findings: ??A transabdominal and transvaginal pelvic ultrasound is performed. ??The uterus measures 9.4 x 4.5 x 6.2 cm. ??Uterine echotexture is fairly homogeneous. ??The EMC measures 16.6 mm. The right ovary measures 2.0 x 1.4 x 2.7 cm. ??The left ovary measures 2.9 x 3.4 x 3.4 cm. ??The ovaries appear normal. ??Doppler flow is seen to both ovaries. The cul-de-sac is unremarkable. Impression: 1. Normal appearing uterus with prominent EMC. ?2. Normal appearing ovaries bilaterally. Interpreting physician: Tony Washington MD Obstetrics and Gynecology us Tony Washington MD IMG US PROCEDURES Final Re sult documented in this encounter Visit Diagnoses Diagnosis Menorrhagia with regular cycle- Primary documented in this encounter Care Teams Medical Leader Relationship Specialty Start Date End Date Laureano Lantigua MD [address] [place] [address] PCP - General Internal Medicine 07/30/18 Tony Washington MD [address] [facility] [address] [place] [address] Information Consultant Obstetrics and Gynecology 11/16/18 Anahy Rosales MD [address] [facility] [address] [place] [address] Referring Physician Psychiatry 11/16/18 documented as of this encounter
--- OUTSIDE RECORDS SUMMARY | 2024-11-15 03:26 | XMS_ITS | Encounter Summary ---
Author Organization [facility] Address [address] [place] [address] Phone Care Team Providers Care Silhouette Artist Name Role Phone Laureano Lantigua MD Primary Care Provider [phone] Tony Washington MD Unavailable [phone] Anahy Rosales MD Unavailable Encounter Details Date Type Department Care Team (Late st Contact Info) Description 11/07/2020 Orders Only [facility] [address] [place] [address] Scanning, Provider Social History Tobacco Use Types Packs/Day Years Used Date Smoking Tobacco: Never Smokeless Tobacco: Never Alcohol Use Standard Drinks/Week Comments Yes 0 (1 standard drink = 0.6 oz pur e alcohol) PHQ-2 Answer Date Recorded PHQ-2 Score 0 11/22/2019 Comments No Sex and Gender Information Value Date Recorded Sex Assigned at Not on file Legal Sex Female 1:37 AM INVESTMENT DIRECTOR Gender Identity Female 10/03/2023 10:05 AM INVESTMENT DIRECTOR Sexual Orientation Straight 10/03/2023 10 :05 AM INVESTMENT DIRECTOR documented as of this encounter Plan of Treatment Not on file documented as of this encounter Procedures Procedure Name Priority Date/Time Associated Diagnosis Comments SCAN - LABS 11/07/2020 documented in this encounter Results * SCAN - LABS (11/07/2020) us Provider Scanning Final Result documented in this encounter Visit Diagnoses Not on filedocumented in this encounter Care Teams Silhouette Artist Relationship Specialty Start Date End Date Laureano Lantigua MD [address] [place] [address] PCP - General Internal Medicine 07/30/18 Tony Washington MD [address] [facility] [address] [place] [address] Outreach Representative Obstetrics and Gynecology 11/16/18 Anahy Rosales MD [address] [facility] [address] [place] [address] Referring Physician Psychiatry 11/16/18 documented as of this encounter
--- OUTSIDE RECORDS SUMMARY | 2024-11-15 03:26 | XMS_ITS | Encounter Summary ---
Author Organization [facility] Address [address] [address] Care Team Providers Care Sound Technician Supervisor Name Role Phone Laureano Lantigua MD Primary Care Provider [phone] Tony Washington MD Unavailable [phone] Anahy Rosales MD Unavailable [phone] Reason for Visit * Reason Comments covid questions Ear Problem Encounter Details Date Type Department Care Team (Late st Contact Info) Description 10/17/2020 3:55 PM UTILITY SPECIALIST Telemedicine [facility] [address] [place] [address] Laureano Lantigua MD [address] [place] [address] COVID-19 (Primary Dx) Social History Tobacco Use Types Packs/Day Years Used Date Smoking Tobacco: Never Smokeless Tobacco: Never Alcohol Use Standard Drinks/Week Comments Yes 0 (1 standard drink = 0.6 oz pur e alcohol) PHQ-2 Answer Date Recorded PHQ-2 Score 0 11/22/2019 Comments No Sex and Gender Information Value Date Recorded Sex Assigned at Not on file Legal Sex Female 1:37 AM UTILITY SPECIALIST Gender Identity Female 10/03/2023 10:05 AM UTILITY SPECIALIST Sexual Orientation Straight 10/03/2023 10 :05 AM UTILITY SPECIALIST documented as of this encounter Last Filed Vital Signs Vital Sign Reading Time Taken Comments Blood Pressure - - Pulse - - Temperature - - Respiratory Rate - - Oxygen Saturation - - Inhaled Oxygen Concentration - - Weight 87.5 kg (193 lb) 10/17/2020 1:34 PM UTILITY SPECIALIST Height - - Body Mass Index 26.18 07/25/2020 7:36 PM CDT documented in this encounter Ordered Prescriptions Prescription Sig Dispense Quantity Refills Last Filled Start Date End Date methylPREDNISolone (MEDROL DOSEPACK) 4 mg Dosepack Take as directed on package. 21 tablet 10/17/2020 0 amoxicillin-clavul anate (AUGMENTIN) 875-125 mg per tablet Take 1 tablet by mouth 2 (two) times a day for 5 days 10 tablet 10/17/2020 0 documented in this encounter Progress Notes * Laureano Lantigua MD - 10/17/2020 3:55 PM CST Images from the original note were not included. Subjective/Objective Patient ID: Valerie Ramirez is a 50 y.o. female. Chief Complaint covid questions and Ear Problem HPI Tested positive on sep 28 restest posditive on oct 14 prior to surgery for her elbow Has no symtpoms at this time Surgery is posponed C/o pain in the right ear with fluid Trial of augmentin plus medrol dose pk restesting in nov 04 This was a telemedicine visit with valerie which took place via phone . During the visit, I was located [facility] and the patient was located office in the [facility] . The patient visit started at 2 oo pm and ended at 2 15 pm . . The patient : has been informed that the visit may not be secure and acknowledged the information. The option of participating in a telephone or video visit during the COVID-19 public health emergency was explained to them. After being given an opportunity to ask questions about and discuss this type of visit, they verbally consented to proceeding with the telephone/video visit and understand that this service replaces an office visit. Laureano Lantigua MD Review of Systems HENT: Positive for ear pain. Respiratory: Negative. Cardiovascular: Negative. Genitourinary: Negative. Physical Exam HENT: Head: Normocephalic. Right Ear: Tympanic membrane and ear canal normal. Cardiovascular: Rate and Rhythm: Normal rate and regular rhythm. Pulses: Normal pulses. Musculoskeletal: Normal range of motion. Assessment/Plan Diagnoses and all orders for this visit: COVID-19 (U07.1) (Primary) Comments: augmentin 875 mg po bid for 7 days medrol dose pk Other orders - amoxicillin-clavulanate (AUGMENTIN) 875-125 mg per tablet; Take 1 tablet by mouth 2 (two) times aday for 5 days - methylPREDNISolone (MEDROL DOSEPACK) 4 mg Dosepack; Take as directed on package. ITY SPECIALIST documented in this encounter Plan of Treatment Not on file documented as of this encounter Visit Diagnoses Diagnosis COVID-19- Primary documented in this encounter Historical Medications * This list may reflect changes made after this encounter. busPIRone (BUSPAR) 10 mg tablet daily as needed 09/26/2020 10/18/2021 added in this encounter Care Teams Sound Technician Supervisor Relationship Specialty Start Date End Date Laureano Lantigua MD [address] [place] [address] PCP - General Internal Medicine 07/30/18 Tony Washington MD [address] [facility] [address] [place] [address] Dye Penetrant Testing Technician Obstetrics and Gynecology 11/16/18 Anahy Rosales MD [address] [facility] [address] [address] Referring Physician Psychiatry 11/16/18 documented as of this encounter
--- OUTSIDE RECORDS SUMMARY | 2024-11-15 03:26 | XMS_ITS | Encounter Summary ---
Author Organization [facility] Address [address] [place] [address] Care Team Providers Care Paratransit Driver Name Role Phone Laureano Lantigua MD Primary Care Provider [phone] Tony Washington MD Unavailable [phone] Anahy Rosales MD Unavailable [phone] Encounter Details Date Type Department Care Team (Late st Contact Info) Description 01/03/2021 Telephone [facility] Gastroenterology at [address] [place] [phone] Manuel Tanner MD [address] [place] [address] [address] [place] [address] Social History Tobacco Use Types Packs/Day Years Used Date Smoking Tobacco: Never Smokeless Tobacco: Never Alcohol Use Standard Drinks/Week Comments Yes 0 (1 standard drink = 0.6 oz pur e alcohol) PHQ-2 Answer Date Recorded PHQ-2 Score 0 11/22/2019 Comments No Sex and Gender Information Value Date Recorded Sex Assigned at Not on file Legal Sex Female 1:[address] Gender Identity Female 10/03/2023 10:[address] Sexual Orientation Straight 10/03/2023 10 :[address] documented as of this encounter Miscellaneous Notes * Telephone Encounter - Kacie Palomino MA - 01/03/2021 10:19 AM CST We received a referral from Dr. Lantigua to get pt schedule for a colonoscopy. Pt is scheduled with Dr. Tanner on Friday03/27/2021 at 12:00pm with an arrival at 11:00 am. Prep instructions have been mailed out to pt and she will call if she does not receive them or if she has any questions. Last colonoscopy: first one Family history colon cancer (if yes, relationship to pt): no Personal history colon polyps or colon cancer: n/a Pt on blood thinner (if yes, list medication and reason for taking): no Has pt had recent stent placement within the last year: no Pt have pacemaker/defibrillator: no Pt diabetic (if yes, insulin or oral meds): no Pt have kidney disease or on dialysis: no Pt on iron: yes pt instructed to stop taking one week prior to the procedure Hx of Constipation: no Mechanical Heart valve: no Instructed pt to call with any medical changes and/or medications/insurance. [address] DR[address] documented in this encounter Plan of Treatment Not on file documented as of this encounter Visit Diagnoses Diagnosis Screen for colon cancer- Primary Special screening for malignant neoplasms, colon documented in this encounter Orders Case Request Count Last Ordered Date First Orde red Date CASE REQUEST GI 1 01/03/2021 documented in this encounter Care Teams Paratransit Driver Relationship Specialty Start Date End Date Laureano Lantigua MD [address] [place] [address] PCP - General Internal Medicine 07/30/18 Tony Washington MD [address] [place] [address] [employer] Obstetrics and Gynecology 11/16/18 Anahy Rosales MD [address] [place] [address] Referring Physician Psychiatry 11/16/18 documented as of this encounter
--- OUTSIDE RECORDS SUMMARY | 2024-11-15 03:26 | XMS_ITS | Encounter Summary ---
Author Organization [facility] Healthcare Address [address] [place] [address] Care Team Providers Care Store Administrative Assistant Name Role Phone Laureano Lantigua MD Primary Care Provider [phone] Tony Washington MD Unavailable [phone] Anahy Rosales MD Unavailable [phone] Reason for Visit * Reason Comments Foot Injury Encounter Details Date Type Department Care Team (Late st Contact Info) Description 07/25/2020 9:02 PM CDT - 07/25/2020 11:50 PM CDT Emergency [facility] Emergency Department [address] [place] [address] Paramjit Leach MD [address] [place], [place] [address], [place] [address] Displaced fracture of distal phalanx of right great toe, initial encounter for open fracture (Primary Dx) Discharge Disposition: Discharge to home [...] on file Legal Sex 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09 07/25/2020 7:36 PM CDT documented in this encounter Discharge Diagnoses Diagnosis Displaced fracture of distal phalanx of right great toe, initial encounter for open fracture - DISPLACED FRACTURE OF DISTAL PHALANX OF RIGHT GREAT TOE, INITIAL ENCOUNTER FOR OPEN FRACTURE Essential (primary) hypertension - ESSENTIAL (PRIMARY) HYPERTENSION Unspecified essential hypertension Hyperlipidemia, unspecified - HYPERLIPIDEMIA, UNSPECIFIED Other cause of strike by thrown, projected or falling object, initial encounter - OTHER CAUSE OF STRIKE BY THROWN, PROJECTED OR FALLING OBJECT, INITIAL ENCOUNTER Other specified places as the place of occurrence of the external cause - OTHER SPECIFIED PLACES THE PLACE OF OCCURRENCE OF THE EXTERNAL CAUSE documented in this encounter Discharge Instructions * Discharge Instructions* Paramjit Leach MD - 07/25/2020 11:33 PM CDT Percocet as directed if needed for toe pain. Keflex 500mg every 6 hours for 10 days. Avoid weight-bearing on right foot. See Dr. Saavedra tomorrow. Keep foot elevated as much as possible. * Attachments The following attachments cannot be sent through Care Everywhere. * Fracture, Toe, Open ([place]) documented in this encounter Medications at Time of Discharge ferrous sulfate 325 mg (65 mg of elemental iron) tabletIndication s:Iron Deficiency Anemia Take 1 tablet (325 mg total) by mouth daily with breakfast cephalexin (KEFLEX) 500 mg capsule Take 1 capsule (500 mg total) by mouth 4 (four) times a day for 10 days 40 capsule 07/25/2020 0 albuterol HFA (PROVENTIL HFA,VENTOLIN HFA,PROAIR HFA) 90 mcg/actuation inhaler 2 puffs qid prn 1 Inhaler 11 11/22/2019 1 biotin (APPEAREX) 2,500 mcg tablet 2,500 mcg. 0 10/26/2010 3 carisoprodol (SOMA) 350 mg tabletIndication s:Muscle Spasm Take 1 tablet (350 mg total) by mouth nightly as needed for muscle spasms 15 tablet 11/22/2019 1 liraglutide, weight loss, 3 mg/0.5 mL (18 [...] 8 (eight) hours as needed for pain 30 tablet 11/22/2019 1 oxyCODONE-acetam inophen (PERCOCET) 5-325 mg per tabletIndication s:Pain Take 1 tablet by mouth every 4 (four) hours as needed for pain 15 tablet 07/25/2020 1 sucralfate (CARAFATE) suspension 1 gram/10 mL Take 1 g by mouth. 03/31/2018 2 documented as of this encounter Ordered Prescriptions Prescription Sig Dispense Quantity Refills Last Filled Start Date End Date cephalexin (KEFLEX) 500 mg capsule Take 1 capsule (500 mg total) by mouth 4 (four) times a day for 10 days 40 capsule 07/25/2020 0 oxyCODONE-acetamin ophen (PERCOCET) 5-325 mg per tabletIndications: Pain Take 1 tablet by mouth every 4 (four) hours as needed for pain 15 tablet 07/25/2020 1 documented in this encounter Discharge Disposition Disposition Code Departure Means Destination Discharge to home or self care documented in this encounter ED Notes * Paramjit Leach MD - 07/25/2020 9:28 PM CDTAssociated Order(s): Nail Bed Procedures; Digital Block HPI Chief Complaint Patient presents with ??? Foot Injury 50 y/o F w/ PMHx of asthma, HTN, and HLD presents to the ED with pain and swelling to her R first and second toe that began this afternoon. Pt states she dropped a 45 lb weight on the foot and immediately noted the pain. Pt was wearing a shoe at onset. She went to see urgent care who advised patient to come to the ED. Pt describes her pain as throbbing and burning currently. Pt had a Tetanus shot in 2018. No other complaints noted. Patient History Patient Active Problem List Diagnosis Date Noted ??? Recurrent major depressive disorder, in full remission (CMS/HCC) 10/27/2017 ??? Attention deficit hyperactivity disorder (ADHD) 10/27/2017 ??? Asthma 06/28/2014 Class: Temporary ??? Osteoarthritis of cervical spine 10/08/2011 Class: Chronic ??? Lumbago 10/08/2011 Class: Chronic Past Medical History: Diagnosis Date ??? Asthma Asthma; Comments: [facility] 06/27/2014 - ??? Female infertility Infertility, female ??? Fibrocystic breast ??? Hammer toe Hammer toe; Comments: [facility] 06/27/2014 - ??? HX OTHER MEDICAL Sinusitis, ADD, diverticulosis, obesity, OA, asthm ??? HX OTHER MEDICAL Depression, with Anxiety; PCOS ??? HX OTHER MEDICAL Missed Ab ??? HX OTHER MEDICAL ; Outcome: 37W0D week 7lb(s) 7 oz Male ??? Hypercholesterolemia High cholesterol; Comments: [facility] 06/27/2014 - ??? Hypertension Hypertension ??? Polycystic ovaries Polycystic ovary syndrome ??? Retinal detachment Detachment of retina; Comments: [facility] 06/27/2014 - Past Surgical History: Procedure Laterality Date ??? ANKLE SURGERY Ankle surgery ??? BREAST BIOPSY ??? CARPAL TUNNEL RELEASE Carpal tunnel release ??? CHOLECYSTECTOMY 03/2018 ??? FOOT SURGERY left foot surgery ??? [...] SURGERY Left ??? SPINAL FUSION Spinal fusion Family History Problem Relation Age of Onset [...] ??? Diabetes Other Diabetes mellitus; Social History Tobacco Use ??? Smoking status: Never Smoker ??? Smokeless tobacco: Never Used Substance Use Topics ??? Alcohol use: Yes ??? Drug use: No Social History Social History Narrative ??? Not on file Review of Systems Review of Systems Constitutional: Negative for chills and fever. HENT: Negative for congestion and sore throat. Eyes: Negative for pain and visual disturbance. Respiratory: Negative for cough, shortness of breath and wheezing. Cardiovascular: Negative for chest pain, palpitations and leg swelling. Gastrointestinal: Negative for abdominal pain, diarrhea, nausea and vomiting. Genitourinary: Negative for difficulty urinating, dysuria and frequency. Musculoskeletal: First and second R toe pain Neurological: Negative for weakness and headaches. All other systems reviewed and are negative. Physical Exam ED Triage Vitals [07/25/20 1936] Temp Pulse Resp BP SpO2 36.1 ??C (97 ??F) 96 16 147/98 99 % Temp src Heart Rate Source Patient Position BP Location FiO2 (%) Temporal -- -- -- -- Physical Exam Vitals signs and nursing note reviewed. Constitutional: Appearance: She is well-developed. HENT: Head: Normocephalic. Nose: Nose normal. Eyes: Conjunctiva/sclera: Conjunctivae normal. Pupils: Pupils are equal, round, and reactive to light. Neck: Musculoskeletal: Normal range of motion and neck supple. Cardiovascular: Rate and Rhythm: Normal rate and regular rhythm. Heart sounds: Normal heart sounds. Pulmonary: Effort: Pulmonary effort is normal. Breath sounds: Normal breath sounds. Abdominal: General: Bowel sounds are normal. Palpations: Abdomen is soft. Musculoskeletal: General: Swelling and tenderness present. Comments: Swollen R great toe ROM limited due to pain Horizontal laceration just proximal to the nail Sensation decreased in the tip of the toe Good cap refill Skin: General: Skin is warm and dry. Neurological: Mental Status: She is alert and oriented to person, place, and time. [facility] Vitals: 07/25/20 1936 BP: 147/98 Pulse: 96 Resp: 16 Temp: 36.1 ??C (97 ??F) TempSrc: Temporal SpO2: 99% Weight: 83.9 kg (185 lb) Height: 182.9 cm (6') XR Foot Right 3+ views Final Result Mildly comminuted and minimally displaced fracture of the tuft of the distal phalanx great toe. THIS IS AN ELECTRONICALLY VERIFIED FINAL REPORT 07/25/2020 9:16 PM - Electronically signed by Edward Evans MF: ARELY Report ID: [id number] Reading Location: [id number] Labs Reviewed - No data to display Digital Block Date/Time: 07/25/2020 9:43 PM Performed by: Paramjit Leach MD Authorized by: Paramjit Leach MD [place] Protocol: RN Notified of Procedure: yes Patient's stated name/ matches armband: Yes Allergies confirmed: yes Lab/Diag test results: N/a Supplies, devices and special equipment are available: yes Site/side marked: n/a Indications: Indications: Pain relief Location: Block location: Toe Toe blocked: R great toe Pre-procedure details: Neurovascular status: deficits Procedure details (see MAR for exact dosages): Anesthetic injected: Bupivacaine 0.5% (0.5 % Marcaine) Injection procedure: Anatomic landmarks identified, anatomic landmarks palpated, incremental injection, introduced needle and negative aspiration for blood Post-procedure details: Outcome: Pain relieved Patient tolerance of procedure: Tolerated well, no immediate complications Post Procedure Debrief: All guidewires, needles, sponges or other items are accounted for: yes Any special post procedure monitoring, testing or other considerations: n/a All specimens identified, labeled and matched to patient identification: n/a Responsible democrat for transporting specimen(s) to lab determined: n/a Nail Bed Procedures Date/Time: 07/25/2020 11:29 PM Performed by: Paramjit Leach MD Authorized by: Paramjit Leach MD [place] Protocol: RN Notified of Procedure: yes Patient's stated name/ matches armband: Yes Allergies confirmed: yes Supplies, devices and special equipment are available: yes Site/side marked: n/a Immediately prior to the procedure a time out was called: a verbal verification by the procedure participants confirmed correct patient identity, correct site/side marked and visible (if applicable);agreement on procedure to be done; and correct patient positioning Location: Hand location: n/a. Foot: R big toe (right great toe) Pre-procedure details: Skin preparation: Betadine Preparation: Patient was prepped and draped in the usual sterile fashion Anesthesia (see MAR for exact dosages): Anesthesia method: Nerve block Block needle gauge: 25 G Block anesthetic: Bupivacaine 0.5% (Marcaine 0.5%) Block injection procedure: Anatomic landmarks identified, anatomic landmarks palpated, introduced needle and negative aspiration for blood Block outcome: Anesthesia achieved Nail Removal: Nail removed: Complete Nail bed repaired: no Removed nail replaced and anchored: no Trephination: Subungual hematoma drained: no Ingrown nail: Wedge excision of skin: no Nail matrix removed or ablated: None Post-procedure details: Dressing: Post-op shoe, 4x4 sterile gauze and gauze roll Patient tolerance of procedure: Tolerated well, no immediate complications All guidewires, needles, sponges or other items are accounted for: yes Any special post procedure monitoring, testing or other considerations: n/a All specimens identified, labeled and matched to patient identification: n/a Responsible democrat for transporting specimen(s) to lab determined: n/a ED Course as of Jul 29 2331 Time: 07/25 2158 Comment: Spoke with Dr Edward Saavedra who agrees to see patient tomorrow. He recommends putting her on crutches and placing a bulky dressing. Further recommends removing the toenail. By: Juan José Merchant Final diagnoses: Displaced fracture of distal phalanx of right great toe, initial encounter for open fracture This note is prepared by Juan José Merchant, acting as a scribe for Dr. Paramjit Leach. I electronicallysigned this note at 11:31 PM on 07/29/2020. I, Dr. Paramjit Leach, have personally performed the services described in the documentation , reviewed the documentation, as recorded by the scribe in my presence, and it accurately and completely records my words and actions. Paramjit Leach MD 07/30/202222 * Aliza Beltre RN - 07/25/2020 7:33 PM CDT Pt presents with complaints of a crush injury to her right foot. Pt states that she dropped a 45 lbweight on her foot while working out. Pt states that the weight fell about 2 feet. Pt states that she went to urgent care, but they would not see her and told her to come to ER. Pt reporting pain in the first three toes. The big to has a lac just under the toenail, spanning the width of the toe. documented in this encounter Plan of Treatment Not on file documented as of this encounter Procedures Procedure Name Priority Date/Time Associated Diagnosis Comments OH AVULSION NAIL PLATE PARTIAL/COMPLETE SIMPLE 1 Routine 07/25/2020 9:28 PM CDT OH INJECTION AA&/STRD OTHER PERIPHERAL NERVE/BRANCH Routine 07/25/2020 9:28 PM CDT XR FOOT RIGHT 3 OR MORE VIEWS ED 07/25/2020 8:33 PM CDT documented in this encounter Results * OH AVULSION NAIL PLATE PARTIAL/COMPLETE SIMPLE 1 (07/25/2020 9:28 PM CDT) Narrative Paramjit Leach MD - 07/25/2020 9:28 PM CDT Paramjit Leach MD ? 07/30/2020 10:23 PM Nail Bed Procedures Date/Time: 07/25/2020 11:29 PM Performed by: Paramjit Leach MD Authorized by: Paramjit Leach MD [place] Protocol: ??RN Notified of Procedure: yes ?Patient's stated name/ matches armband: ??Yes ??Allergies confirmed: yes ?Supplies, devices and special equipment are available: yes ?Site/side marked: n/a ?Immediately prior to the procedure a time out was called: a verbal verification by the procedure participants confirmed correct patient identity, correct site/side marked and visible (if applicable); agreement on procedure to be done; and correct patient positioning ?? Location: ??Hand location: n/a. ??Foot: ??R big toe (right great toe) Pre-procedure details: ??Skin preparation: ??Betadine ??Preparation: Patient was prepped and draped in the usual sterile fashion Anesthesia (see MAR for exact dosages): ??Anesthesia method: ??Nerve block ??Block needle gauge: ??25 G ??Block anesthetic: ??Bupivacaine 0.5% (Marcaine 0.5%) ??Block injection procedure: ??Anatomic landmarks identified, anatomic landmarks palpated, introduced needle and negative aspiration for blood ??Block outcome: ??Anesthesia achieved Nail Removal: ??Nail removed: ??Complete ??Nail bed repaired: no ?Removed nail replaced and anchored: no ?? Trephination: ??Subungual hematoma drained: no ?? Ingrown nail: ??Wedge excision of skin: no ?Nail matrix removed or ablated: ??None Post-procedure details: ??Dressing: ??Post-op shoe, 4x4 sterile gauze and gauze roll ??Patient tolerance of procedure: ??Tolerated well, no immediate complications ??All guidewires, needles, sponges or other items are accounted for: yes ?Any special post procedure monitoring, testing or other considerations: n/a ?All specimens identified, labeled and matched to patient identification: n/a ?Responsible democrat for transporting specimen(s) to lab determined: n/a ?? us Paramjit Leach MD IN CLINIC/BEDSIDE ORDERABL ES Final Result * [place] INJECTION AA&/STRD OTHER PERIPHERAL NERVE/BRANCH (07/25/2020 9:28 PM CDT) Narrative Paramjit Leach MD - 07/25/2020 9:28 PM CDT Paramjit Leach MD ? 07/30/2020 10:23 PM Digital Block Date/Time: 07/25/2020 9:43 PM Performed by: Paramjit Leach MD Authorized by: Paramjit Leach MD [place] Protocol: ??RN Notified of Procedure: yes ?Patient's stated name/ matches armband: ??Yes ??Allergies confirmed: yes ?Lab/Diag test results: ??N/a ??Supplies, devices and special equipment are available: yes ?Site/side marked: n/a ?? Indications: ??Indications: ??Pain relief Location: ??Block location: ??Toe ??Toe blocked: ??R great toe Pre-procedure details: ??Neurovascular status: deficits ?? Procedure details (see MAR for exact dosages): ??Anesthetic injected: ??Bupivacaine 0.5% (0.5 % Marcaine) ??Injection procedure: ??Anatomic landmarks identified, anatomic landmarks palpated, incremental injection, introduced needle and negative aspiration for blood Post-procedure details: ??Outcome: ??Pain relieved ??Patient tolerance of procedure: ??Tolerated well, no immediate complications Post Procedure Debrief: ??All guidewires, needles, sponges or other items are accounted for: yes ?Any special post procedure monitoring, testing or other considerations: n/a ?All specimens identified, labeled and matched to patient identification: n/a ?Responsible democrat for transporting specimen(s) to lab determined: n/a ?? us Paramjit Leach MD IN CLINIC/BEDSIDE ORDERABL ES Final Result * XR Foot Right 3+ views (07/25/2020 8:33 PM CDT) Anatomical Region Laterality Modality Lower Extremities, Foot Right Computed Radiography 07/25/2020 8:34 PM CDT Impressions 07/25/2020 9:19 PM CDT ?? Mildly comminuted and minimally displaced fracture of the tuft of the distal phalanx great toe. THIS IS AN ELECTRONICALLY VERIFIED FINAL REPORT 07/25/2020 9:16 PM - Electronically signed by Edward Evans MF: ARELY D: ??07/25/2020 9:16 PM T: ??07/25/2020 9:16 PM Report ID: [id number] Reading Location: ??[id number] Narrative 07/25/2020 9:19 PM CDT [facility] ?Imaging Result Name: JOSHUA SANDERS ? Ordering Phys: PARAMJIT LEACH Age: 50 ?Date of : 1970 ? Accession Number: [id number] Date of Service: 07/25/2020 ??Gender: F EXAM DESCRIPTION: ?XR FOOT RIGHT 3 OR MORE VIEWS REASON FOR STUDY: ?? dropped 45lb.wt.on foot/pain 1st,2nd and 3 rd digitsDuration: today TECHNIQUE: ?? AP, lateral and oblique radiographic views acquired of the right foot. COMPARISON: ?? None available. ??BONES/JOINTS: ??There is a mildly comminuted fracture involving the tuft of distal phalanx great toe with minimal displacement. ??No additional acute fracture is seen. ??Mild degenerative changes are seen at the dorsal talonavicular and 1st MTP joints. ??The remaining joint spaces are maintained. SOFT TISSUES: ??Surrounding soft tissue swelling is noted about the fracture site. OTHER: ??No other significant finding. Procedure Note Edward Evans, DO - 07/25/2020 [facility] Imaging Result Name: JOSHUA SANDERS Ordering Phys: PARAMJIT LEACH Age: 50 Date of : 1970 Accession Number: [id number] Date of Service: 07/25/2020 Gender: F EXAM DESCRIPTION: XR FOOT RIGHT 3 OR MORE VIEWS REASON FOR STUDY: dropped 45lb.wt.on foot/pain 1st,2nd and 3 rd digitsDuration: today TECHNIQUE: AP, lateral and oblique radiographic views acquired of theright foot. COMPARISON: None available. BONES/JOINTS: There is a mildly comminuted fracture involving the tuft of distal phalanx great toe with minimal displacement. Noadditional acute fracture is seen. Mild degenerative changes are seen at thedorsal talonavicular and 1st MTP joints. The remaining joint spaces aremaintained. SOFT TISSUES: Surrounding soft tissue swelling is noted about thefracture site. OTHER: No other significant finding. IMPRESSION: Mildly comminuted and minimally displaced fracture of the tuft of the distal phalanx great toe. THIS IS AN ELECTRONICALLY VERIFIED FINAL REPORT 07/25/2020 9:16 PM - Electronically signed by Edward Evans MF: ARELY Report ID: [id number] Reading Location: [place] [address] Paramjit Leach MD IMG XR PROCEDURES Final Re sult documented in this encounter Visit Diagnoses Diagnosis Displaced fracture of distal phalanx of right great toe, initial encounter for open fracture- Primary documented in this encounter Administered Medications Inactive Administered Medications - up to 3 most recent administrations Medication Order MAR Action Action Date Dose Rate Site bupivacaine (MARCAINE) 0.5 % (5 mg/mL) preservative free injection 50 mg 50 mg (10 mL), infiltration, Once, On 07/25/20 at 2129, For 1 dose Given by Other 07/25/2020 9:51 PM CDT 50 mg cephalexin (KEFLEX) capsule 500 mg 500 mg, oral, Once, On Fri07/25/20 at 2337, For 1 dose, Indications: Prophylaxis, MedicalIndications:Prophylax is, Medical Given 07/25/2020 11:48 PM CDT 500 mg HYDROcodone-acetaminophen (NORCO) 5-325 mg per tablet 2 tablet 2 tablet, oral, Once, On Fri07/25/20 at 2130, For 1 dose, Indications: PainIndications:Pain Given 07/25/2020 9:32 PM CDT 2 tablets documented in this encounter Active and Recently Administered Medications Times are shown in CDT. Scheduled Medication Order 07/23/2020 07/24/2020 07/25/2020 bupivacaine (MARCAINE) 0.5 % (5 mg/mL) preservative free injection 50 mg (COMPLETED) 50 mg (10 mL), infiltration, Once, On Fri07/25/20 at 2128, For 1 dose 2150 (Given by Other - Provider: Juan Manuel Gill RN) cephalexin (KEFLEX) capsule 500 mg (COMPLETED) 500 mg, oral, Once, On Fri07/25/20 at 2337, For 1 dose, Indications: Prophylaxis, Medical 2347 (Given - Provid er: Juan Manuel Gill RN) HYDROcodone-acetaminophen (NORCO) 5-325 mg per tablet 2 tablet (COMPLETED) 2 tablet, oral, Once, On Fri07/25/20 at 2130, For 1 dose, Indications: Pain 2131 (Given - Provid er: Juan Manuel Gill, CHEY) documented in this encounter Orders General Supply Count Last Ordered Date First Or dered Date POST-OP SHOE MED SIZE 6-8 FEMALE ([id number]) 1 07/25/2020 Nursing Count Last Ordered Date First Orde red Date APPLY DRESSING 1 07/25/2020 ED SUPPLY 07/25/2020 documented in this encounter Care Teams Store Administrative Assistant Relationship Specialty Start Date End Date Laureano Lantigua MD [address] [place] [address] PCP - General Internal Medicine 07/30/18 Tony Washington MD [address] [facility] [address] [place] [address] Air Surveillance Operator Obstetrics and Gynecology 11/16/18 Anahy Rosales MD [address] [facility] [address] [address] Referring Physician Psychiatry 11/16/18 documented as of this encounter
--- OUTSIDE RECORDS SUMMARY | 2024-11-15 03:26 | XMS_ITS | Encounter Summary ---
Author Organization [facility] Healthcare Address [address] [place] [address] Care Team Providers Care Transportation Modeler Name Role Phone Laureano Lantigua MD Primary Care Provider [phone]- [phone] Tony Washington MD Unavailable [phone] Anahy Rosales MD Unavailable [phone] Encounter Details Date Type Department Care Team (Latest Contact Info) Description 07/25/2020 8:05 PM CDT - 07/25/2020 9:01 PM CDT Hospital Encounter [facility] [address] [place] [address] Francine Leach MD [address] [place] [address] [address] Discharge Disposition: Discharge to home or self [...] on file Legal Sex Female 1:37 AM HIDE EXAMINER Gender Identity Female 10/03/2023 10:05 AM HIDE EXAMINER Sexual Orientation Straight 10/03/2023 10 :05 AM HIDE EXAMINER documented as of this encounter Medications at [...] needed for pain 30 tablet 11/22/2019 1 sucralfate (CARAFATE) suspension 1 gram/10 mL Take 1 g by mouth. 03/31/2018 2 documented as of this encounter Discharge Disposition Disposition Code Departure Means Destination Discharge to home or self care documented in this encounter Plan of Treatment Not on file documented as of this encounter Procedures Procedure Name Priority Date/Time Associated Diagnosis Comments XR FOOT RIGHT 3 OR MORE VIEWS ED 07/25/2020 8:33 PM CDT documented in this encounter Results * XR Foot Right 3+ views (07/25/2020 [...] PM T: ??07/25/2020 9:16 PM Report ID: [id number] Reading Location: ??[id number] Narrative 07/25/2020 9:19 PM CDT [facility] ?Imaging Result Name: JOSHUA SANDERS ? Ordering Phys: FRANCINE LEACH Age: 50 ?Date of : 1970 ? Accession Number: [id number] Date of Service: 07/25/2020 ??Gender: F EXAM [...] ??No other significant finding. Procedure Note Edward Evans DO - 07/25/2020 [facility] Imaging Result Name: JOSHUA SANDERS Ordering Phys: FRANCINE MORALESBROOK Age: 50 Date of : 1970 Accession Number: [id number] Date of Service: 07/25/2020 Gender: F EXAM [...] by Edward Evans MF: ARELY Report ID: [id number] Reading Location: [id number] [place] Francine Leach MD IMG XR PROCEDURES Final Re sult documented in this encounter Visit Diagnoses Not on filedocumented in this encounter Care Teams Transportation Modeler Relationship Specialty Start Date End Date Laureano Lantigua MD [address] [place], [place] [address], [place] [address] PCP - General Internal Medicine 07/30/18 Tony Washington MD [address] [place] [address] [place] [address] Jailer/Training Officer Obstetrics and Gynecology 11/16/18 Anahy Rosales MD [address] [place] [address] [place] [address] Referring Physician Psychiatry 11/16/18 documented as of this encounter
--- OUTSIDE RECORDS SUMMARY | 2024-11-15 03:26 | XMS_ITS | Encounter Summary ---
Author Organization [facility] Medical Group Address [address] [address] Care Team Providers Care Molding Associate Name Role Phone Laureano Lantigua MD Primary Care Provider + [phone] Tony Washington MD Unavailable [phone] Anahy Rosales MD Unavailable [phone] Encounter Details Date Type Department Care Team (Late st Contact Info) Description 01/01/2021 Telephone [facility] [address] [place] [id number] Laureano Lantigua MD [address] [address] Social History Tobacco Use Types Packs/Day Years Used Date Smoking Tobacco: Never Smokeless Tobacco: Never Alcohol Use Standard Drinks/Week Comments Yes 0 (1 standard drink = 0.6 oz pur e alcohol) PHQ-2 Answer Date Recorded PHQ-2 Score 0 11/22/2019 Comments No Sex and Gender Information Value Date Recorded Sex Assigned at Not on file Legal Sex Female 1:37 AM OPERATIONS VICE PRESIDENT Gender Identity Female 10/03/2023 10:05 AM OPERATIONS VICE PRESIDENT Sexual Orientation Straight 10/03/2023 10 :05 AM OPERATIONS VICE PRESIDENT documented as of this encounter Ordered Prescriptions Prescription Sig Dispense Quantity Refills Last Filled Start Date End Date oxyCODONE-acetamin ophen (PERCOCET) 5-325 mg per tabletIndications: Pain Take 1 tablet by mouth every 8 (eight) hours as needed for pain 45 tablet 01/01/2021 2 carisoprodoL (SOMA) 350 mg tabletIndications: Muscle Spasm Take 1 tablet (350 mg total) by mouth nightly as needed for muscle spasms 15 tablet 01/01/2021 2 documented in this encounter Miscellaneous Notes * Telephone Encounter - Neftali Chavez RN - 01/01/2021 10:50 AM OPERATIONS VICE PRESIDENT Ref per AVS order Soma 350mg nightly prn #15 no ref Percocet 5-325mg #45 one tablet every 8 hours prn pain no ref called to [facility] pharm ATIONS VICE PRESIDENT * Telephone Encounter - Lacho Mandujano MA - 01/01/2021 10:42 AM CST RTC IN SIX MONTH CBC/CMP/FLP NEXT VISIT Patient expressed at checkout that she will zuleyma to schedule next appointment when she looks at her schedule. ATIONS VICE PRESIDENT * Telephone Encounter - Lacho Mandujano MA - 01/01/2021 10:28 AM CST Regarding AVS from [facility] HAVE NURSES CALL IN SOMA HAVE NURSES CALL IN PERCOCET ( 45 ) Q 8 HOUR PRN Thank you! ATIONS VICE PRESIDENT documented in this encounter Plan of Treatment Not on file documented as of this encounter Visit Diagnoses Not on filedocumented in this encounter Discontinued Medications Medication Sig Discontinue Reason Start Date End Da te oxyCODONE-acetaminophen (PERCOCET) 5-325 mg per tabletIndications:Pain Take 1 tablet by mouth every 8 (eight) hours as needed for pain Reorder 11/22/2019 01/01/2021 carisoprodol (SOMA) 350 mg tabletIndications:Muscle Spasm Take 1 tablet (350 mg total) by mouth nightly as needed for muscle spasms Reorder 11/22/2019 01/01/2021 documented as of this encounter Care Teams Molding Associate Relationship Specialty Start Date End Date Laureano Lantigua MD [address] [place] [address] PCP - General Internal Medicine 07/30/18 Tony Washington MD [address] [place] [address] Vehicle Insurance Agent Obstetrics and Gynecology 11/16/18 Anahy Rosales MD [address] [place] [address] [place] [address] Referring Physician Psychiatry 11/16/18 documented as of this encounter
--- OUTSIDE RECORDS SUMMARY | 2024-11-15 03:26 | XMS_ITS | Encounter Summary ---
Author Organization [facility] Healthcare Address [address] [place] [address] Care Team Providers Care Motorcyles Final Inspector Name Role Phone Laureano Lantigua MD Primary Care Provider [phone] Tony Washington MD Unavailable [phone] Anahy Rosales MD Unavailable [phone] Encounter Details Date Type Department Care Team (Latest Contact Info) Description 03/27/2021 11:05 AM CDT - 03/27/2021 1:47 PM CDT Hospital Encounter [facility] 1 [place] [address] Manuel Tanner MD [address] [place] [address] [place] [address] Discharge Disposition: Discharge to home or self [...] on file Legal Sex Female 1:37 AM ARTIST'S MODEL Gender Identity Female 10/03/2023 10:05 AM ARTIST'S MODEL Sexual Orientation Straight 10/03/2023 10 :05 AM ARTIST'S MODEL documented as of this encounter Last Filed Vital Signs Vital Sign Reading Time Taken Comments Blood Pressure 148/90 03/27/2021 1:35 PM CDT Pulse 63 03/27/2021 1:35 PM CDT Temperature 36.8 ??C (98.2 ??F) 03/27/2021 1:35 PM CD T Respiratory Rate 18 03/27/2021 1:35 PM CDT Oxygen Saturation 100% 03/27/2021 1:35 PM CDT Inhaled Oxygen Concentration - - Weight 91.2 kg (201 lb) 03/27/2021 11:37 AM CDT Height 182.9 cm (6') 03/27/2021 11:37 AM CDT Body Mass Index 27.26 03/27/2021 11:37 AM CDT documented in this encounter Discharge Diagnoses Diagnosis Encounter for screening for malignant neoplasm of colon - ENCOUNTER FOR SCREENING FOR MALIGNANT NEOPLASM OF COLON Diverticulosis of large intestine without perforation or abscess without bleeding - DIVERTICULOSIS OF LARGE INTESTINE WITHOUT PERFORATION OR ABSCESS WITHOUT BLEEDING Other hemorrhoids - OTHER HEMORRHOIDS Diaphragmatic hernia without obstruction or gangrene - DIAPHRAGMATIC HERNIA WITHOUT OBSTRUCTION OR GANGRENE Diaphragmatic hernia without mention of obstruction or gangrene Unspecified asthma, uncomplicated - UNSPECIFIED ASTHMA, UNCOMPLICATED Unspecified osteoarthritis, unspecified site - UNSPECIFIED OSTEOARTHRITIS, UNSPECIFIED SITE Personal history of other diseases of the digestive system - PERSONAL HISTORY OF OTHER DISEASES OF THE DIGESTIVE SYSTEM Pure hypercholesterolemia, unspecified - PURE HYPERCHOLESTEROLEMIA, UNSPECIFIED Polycystic ovarian syndrome - POLYCYSTIC OVARIAN SYNDROME Polycystic ovaries Essential (primary) hypertension - ESSENTIAL (PRIMARY) HYPERTENSION Unspecified essential hypertension Acquired absence of other specified parts of digestive tract - ACQUIRED ABSENCE OF OTHER SPECIFIED PARTS OF DIGESTIVE TRACT Arthrodesis status - ARTHRODESIS STATUS Anxiety disorder, unspecified - ANXIETY DISORDER, UNSPECIFIED Major depressive disorder, single episode, unspecified - MAJOR DEPRESSIVE DISORDER, SINGLE EPISODE, UNSPECIFIED Presence of unspecified artificial knee joint - PRESENCE OF UNSPECIFIED ARTIFICIAL KNEE JOINT Other ocean transportation intermediary (current) drug therapy - OTHER BODY WORKER (CURRENT) DRUG THERAPY Allergy status to other antibiotic agents - ALLERGY STATUS TO OTHER ANTIBIOTIC AGENTS Allergy status to narcotic agent - ALLERGY STATUS TO NARCOTIC AGENT documented in this encounter Medications at Time [...] History: Diagnosis Date ??? Asthma Asthma; Comments: AWM 06/27/2014 - ??? Female infertility Infertility, female ??? Fibrocystic breast ??? Hammer toe Hammer toe; Comments: [facility] 06/27/2014 - ??? HX OTHER MEDICAL Sinusitis, ADD, diverticulosis, obesity, OA, asthm ??? HX OTHER MEDICAL Depression, with Anxiety; PCOS ??? HX OTHER MEDICAL Missed Ab ??? HX OTHER MEDICAL ; Outcome: 37W0D week 7lb(s) 7 oz Male ??? Hypercholesterolemia High cholesterol; Comments: [facility] 06/27/2014 - ??? Hypertension Hypertension ??? Polycystic ovaries Polycystic ovary syndrome ??? Retinal detachment Detachment of retina; Comments: [facility] 06/27/2014 - Past Surgical History: [...] - 03/27/2021 11:21 AM CDTAssociated Order(s): COLONOSCOPY [facility] Patient Name: Finesse Ramirez Procedure Date: 03/27/2021 11:21 AM Date of : 1970 Admit Type: Outpatient Age: 51 Gender: Female Attending MD: Manuel Tanner M.D. Room: [facility] ENDOSCOPY ROOM 1 Note Status: [...] under direct vision. The Pediatric Colonoscope PCF-H190L [id number] was introduced through the anus and advanced [...] 11:21 AM Procedure Code(s): --- Professional --- 30597, Colonoscopy, flexible; diagnostic, including collection of specimen(s) by brushing or washing, when performed (separate procedure) Diagnosis Code(s): --- Professional --- Z12.11, Encounter for screening for malignant neoplasm of colon K64.8, Other hemorrhoids K57.30, Diverticulosis of large intestine without perforation or abscess without bleeding CPT copyright 2019 [employer]. All rights reserved. The codes documented in this report are preliminary and upon truck technician review may be revised to meet current compliance requirements. Recognized by the [employer] for promoting quality in endoscopy documented in this encounter Miscellaneous Notes * Perioperative Nursing Note - Debbie Rausch, RN - 03/27/2021 1:[address] [...] Female Attending MD: Manuel Tanner M.D. Room: [facility] ENDOSCOPY ROOM 1 Note Status: [...] under direct vision. The Pediatric Colonoscope PCF-H190L [id number] was introducedthrough the anus and advanced to [...] 11:21 AM Procedure Code(s): --- Professional --- 19432, Colonoscopy, flexible; diagnostic, including collection of specimen(s) by brushing or washing, when performed (separateprocedure) Diagnosis Code(s): --- Professional --- Z12.11, Encounter for screening for malignant neoplasm of colon K64.8, Other hemorrhoids K57.30, Diverticulosis of large intestine without perforation orabscess without bleeding CPT copyright 2019 [employer]. All rights reserved. The codes documented in this report are preliminary and upon truck technician reviewmay be revised to meet current compliance requirements. Recognized by the [employer] for promoting quality [...] 30 min PRN, nausea, vomiting, Starting on 03/27/21 at 1126, For 2 doses, Recovery (GI), Indications: Nausea and VomitingIndications:Nausea and Vomiting sodium chloride 0.9% infusion 30 mL/hr, intravenous, Continuous, Starting on 03/27/21 at 1215, Pre-Procedure (GI) Restarted 03/27/2021 12:54 PM CDT New Bag 03/27/2021 12:00 PM CDT 30 mL/hr 30 mL/hr sodium chloride 0.9% infusion 125 mL/hr, intravenous, Continuous, Starting on 03/27/21 at 1200, Recovery (GI) documented in this encounter Active and Recently Administered Medications Times are shown in CDT. Continuous Medication Order 03/25/2021 03/26/2021 03/27/2021 sodium chloride 0.9% infusion 30 mL/hr, intravenous, Continuous, Starting on Fri03/27/21 at 1215, Pre-Procedure (GI) 1200 (New Bag - Prov ider: Debbie Rasuch RN)1253 (Paused - Provider: Aneudy Cavazos CRNA - Comment: Switch to gravity)1254 (Restarted - Provider: Aneudy Cavazos CRNA) sodium chloride 0.9% infusion 125 mL/hr, intravenous, Continuous, Starting on e 03/27/21 at 1200, Recovery (GI) 1200 (Due) PRN Medication Order 03/25/2021 03/26/2021 03/27/2021 ondansetron (ZOFRAN) injection 4 mg 4 mg, intravenous, Administer over 2 Minutes, Every 30 min PRN, nausea, vomiting, Starting on e 03/27/21 at 1126, For 2 doses, Recovery (GI), Indications: Nausea and Vomiting documented in this encounter Orders Medications Ordered That Raul ht Not Have Been Administered Count Last Ordered Date First Ordered Date ondansetron (ZOFRAN) injection 4 mg 1 03/27 sodium chloride 0.9% infusion 1 03/27/2021 documented in this encounter Care Teams Motorcyles Final Inspector Relationship Specialty Start Date End Date Laureano Lantigua MD [address] [place] [address] PCP - General Internal Medicine 07/30/18 Tony Washington MD [address] [place] [address] [place] [address] Converting Supervisor Obstetrics and Gynecology 11/16/18 Anahy Rosales MD [address] [place] [address] [place] [address] Referring Physician Psychiatry 11/16/18 documented as of this encounter
--- OUTSIDE RECORDS SUMMARY | 2024-11-15 03:26 | XMS_ITS | Encounter Summary ---
Author Organization [facility] Healthcare Address [address] [place] [address] Care Team Providers Care Merchandise Processor Name Role Phone Laureano Lantigua MD Primary Care Provider [phone] Tony Washington MD Unavailable [phone] Anahy Rosales MD Unavailable [phone] Reason for Referral * Diagnostic Imaging (Routine) - Closed Specialty Diagnoses / Procedures Referred By Jesse santana Referred To Contact Diagnoses Encounter for screening mammogram for malignant neoplasm of breast Procedures SCREENING MAMMOGRAM BILATERAL W Tony Quevedo MD [address] [facility] [address] [facility] [facility] [place] [address] Phone: tel: fax: [address] [phone] Referral ID Status Reason Start Date Expiration Date Visits Re quested Visits Authorized [id number] Closed 11/27/2020 12/27/2021 1 1 L FILE CLERK Reason for Visit * Diagnostic Imaging (Routine) - Closed Specialty Diagnoses / Procedures Referred By Jesse santana Referred To Contact Diagnoses Encounter for screening mammogram for malignant neoplasm of breast Procedures SCREENING MAMMOGRAM BILATERAL W Tony Quevedo MD [address] [facility] [place] [address] Phone: tel: fax: [address] [address] Referral ID Status Reason Start Date Expiration Date Visits Re quested Visits Authorized [id number] Closed 11/27/2020 12/27/2021 1 1 Encounter Details Date Type Department Care Team (Latest Contact Info) Description 01/01/2021 7:46 AM LEGAL FILE CLERK - 01/01/2021 11:59 PM LEGAL FILE CLERK Hospital Encounter [facility] [address] [place] [address] Tony Washington MD [address] [facility] [address] [place] [address] Encounter for screening mammogram for malignant neoplasm of breast Discharge Disposition: Discharge to home or self [...] on file Legal Sex Female 1:37 AM LEGAL FILE CLERK Gender Identity Female 10/03/2023 10:05 AM LEGAL FILE CLERK Sexual Orientation Straight 10/03/2023 10 :05 AM LEGAL FILE CLERK documented as of this encounter Medications at [...] Procedure Name Priority Date/Time Associated Diagnosis Comments SCREENING MAMMOGRAM BILATERAL W RADHA Schedule Routine, Read Routine (OP Routine) 01/01/2021 8:09 AM LEGAL FILE CLERK Encounter for screening mammogram for malignant neoplasm of breast documented in this encounter Results * SCREENING MAMMOGRAM BILATERAL W RADHA (01/01/2021 8:09 AM LEGAL FILE CLERK) Anatomical Region Laterality Modality Breast Bilateral Mammography 01/01/2021 8:48 AM LEGAL FILE CLERK Impressions 01/01/2021 9:24 AM LEGAL FILE CLERK There is no mammographic evidence of malignancy. A 1 year screening mammogram is recommended. BI-RADS: 1 - Negative. The patient will be entered into a reminder system with a target due date of 1 year for her next mammogram. Electronically signed by: Rosalia Church MD Narrative 01/01/2021 9:24 AM LEGAL FILE CLERK EXAMINATION: SCREENING MAMMOGRAM BILATERAL W RADHA ORDERING [...] Washington MD IMG MAMMO PROCEDURES Final Result documented in this encounter Visit Diagnoses Diagnosis Encounter for screening mammogram for malignant neoplasm of breast documented in this encounter Care Teams Merchandise Processor Relationship Specialty Start Date End Date Laureano Lantigua MD [address] [place] [address] PCP - General Internal Medicine 07/30/18 Tony Washington MD [address] [place] [address] [address] [facility] [place] [address] Cuff Turner Machine Operator Obstetrics and Gynecology 11/16/18 Anahy Rosales MD [address] [place] [address] [address] [facility] [place] [address] Referring Physician Psychiatry 11/16/18 documented as of this encounter
--- OUTSIDE RECORDS SUMMARY | 2024-11-15 03:26 | XMS_ITS | Encounter Summary ---
Author Organization [facility] Medical Group Address [address] [address] Care Team Providers Care Rack Puncher Name Role Phone Laureano Lantigua MD Primary Care Provider + [phone] Tony Washington MD Unavailable [phone] Anahy Rosales MD Unavailable [phone] Encounter Details Date Type Department Care Team (Late st Contact Info) Description 11/27/2020 Telephone [facility] [address] [place] [phone] Laureano Lantigua MD [address] [address] Social History Tobacco Use Types Packs/Day Years Used Date Smoking Tobacco: Never Smokeless Tobacco: Never Alcohol Use Standard Drinks/Week Comments Yes 0 (1 standard drink = 0.6 oz pur e alcohol) PHQ-2 Answer Date Recorded PHQ-2 Score 0 11/22/2019 Comments No Sex and Gender Information Value Date Recorded Sex Assigned at Not on file Legal Sex Female 1:37 AM GRAPE PICKER Gender Identity Female 10/03/2023 10:05 AM GRAPE PICKER Sexual Orientation Straight 10/03/2023 10 :05 AM GRAPE PICKER documented as of this encounter Miscellaneous Notes * Telephone Encounter - Celine Mckoy - 11/27/2020 12:46 PM CST Pt picked up papers in the office. E PICKER * Telephone Encounter - Liane Allen NP - 11/27/2020 10:57 AM GRAPE PICKER Noted thank you E PICKER * Telephone Encounter - Neftali Chavez RN - 11/27/2020 10:36 AM GRAPE PICKER Spoke w/pt Informed labs norm Pt states itching was getting better until her meds fell out of her purse at her moms Pt states she went 24 hours w/out steroid et itching returned She found her meds et restarted taking them last night et this am et itching is getting better. E PICKER * Telephone Encounter - Liane Allen NP - 11/27/2020 10:33 AM GRAPE PICKER Yes ok to inform her the labs are normal. How is her itching? E PICKER * Telephone Encounter - Neftali Chavez RN - 11/27/2020 10:29 AM GRAPE PICKER Pt req lab results 11/22/20 Ok to inform pt labs norm? Please advise E PICKER * Telephone Encounter - Carol Frank - 11/27/2020 10:22 AM CST Patient requesting results of recent lab work. PT [phone] E PICKER documented in this encounter Plan of Treatment Not on file documented as of this encounter Visit Diagnoses Not on filedocumented in this encounter Care Teams Rack Puncher Relationship Specialty Start Date End Date Laureano Lantigua MD [address] [place] [address] PCP - General Internal Medicine 07/30/18 Tony Washington MD [address] [place] [address] [address] [place] [address] Director Visual Obstetrics and Gynecology 11/16/18 Anahy Rosales MD [address] [place] [address] [address] [facility] [place] [address] Referring Physician Psychiatry 11/16/18 documented as of this encounter
--- OUTSIDE RECORDS SUMMARY | 2024-11-15 03:26 | XMS_ITS | Encounter Summary ---
Author Organization [facility] Address [address] [address] Care Team Providers Care Wood Casket Assembler Name Role Phone Laureano Lantigua MD Primary Care Provider + [phone] Tony Washington MD Unavailable [phone] Anahy Rosales MD Unavailable [phone] Encounter Details Date Type Department Care Team (Late st Contact Info) Description 10/03/2020 Telephone [facility] [address] [place] [address] Laureano Lantigua MD [address] [address] Social History Tobacco Use Types Packs/Day Years Used Date Smoking Tobacco: Never Smokeless Tobacco: Never Alcohol Use Standard Drinks/Week Comments Yes 0 (1 standard drink = 0.6 oz pur e alcohol) PHQ-2 Answer Date Recorded PHQ-2 Score 0 11/22/2019 Comments No Sex and Gender Information Value Date Recorded Sex Assigned at Not on file Legal Sex Female 1:37 AM NIGHT CLEANER Gender Identity Female 10/03/2023 10:05 AM NIGHT CLEANER Sexual Orientation Straight 10/03/2023 10 :05 AM NIGHT CLEANER documented as of this encounter Miscellaneous Notes * Telephone Encounter - Vandana Cavazos RN - 10/03/2020 2:25 PM CST Pt got a call from the health department Pt has to call on 10/05 They will send her a e mail when to return to work Pt will call us back with any questions or problems T CLEANER * Telephone Encounter - Carol Frank - 10/03/2020 9:28 AM CST Patient tested positive for COVID on the . She is not sure when she can return to work is it 10 or 14 days? Patient will also need a letter toreturn to work. Patient call back number [phone] T CLEANER documented in this encounter Plan of Treatment Not on file documented as of this encounter Visit Diagnoses Not on filedocumented in this encounter Care Teams Wood Casket Assembler Relationship Specialty Start Date End Date Laureano Lantigua MD [address] [place] [address] PCP - General Internal Medicine 07/30/18 Tony Washington MD [address] [place] [address] [address] [place] [address] Clinical Trial Specialist Obstetrics and Gynecology 11/16/18 Anahy Rosales MD [address] [place] [address] [place] [address] Referring Physician Psychiatry 11/16/18 documented as of this encounter
--- OUTSIDE RECORDS SUMMARY | 2024-11-15 03:26 | XMS_ITS | Encounter Summary ---
Author Organization [facility] Address [address] [facility] [address] [place] [address] Care Team Providers Care Certified Pharmacy Technician Name Role Phone Laureano Lantigua MD Primary Care Provider [phone] Tony Washington MD Unavailable [phone] Anahy Rosales MD Unavailable [phone] Reason for Referral * OBGYN (Routine) - Closed Specialty Diagnoses / Procedures [facility] Referred To Contact Diagnoses Menorrhagia with regular cycle Procedures Endometrial Biopsy Only Tony Washington MD [address] [place] [address] [address], [place] [address] Phone: tel: fax: [facility] Referral ID Status Reason Start Date Expiration Date Visits Re quested Visits Authorized [id number] Closed 02/07/2020 08/18/2021 1 1 Reason for Visit * Reason Comments Procedure EMB, pt desires abla tion Encounter Details Date Type Department Care Team (Late st Contact Info) Description 02/07/2020 2:45 PM CDT Procedure visit [facility] [address] [place] [address] [address] [place] [address] Tony Washington MD [address] [place] [address] [address] [place] [address] Menorrhagia with regular cycle (Primary Dx) Social [...] on file Legal Sex Female 1:37 AM HYDRAULIC PRESS IN OPERATOR Gender Identity Female 10/03/2023 10:05 AM HYDRAULIC PRESS IN OPERATOR Sexual Orientation Straight 10/03/2023 10 :05 AM HYDRAULIC PRESS IN OPERATOR COVID-19 Exposure Response Date Recorded In the last month, have you been in contact with someone who was confirmed or suspected to have Coronavirus / COVID-19? No / Unsure 02/07/2020 2:44 PM CDT documented as of this encounter Last Filed Vital Signs Vital Sign Reading Time Taken Comments Blood Pressure 160/92 02/07/2020 2:50 PM CDT Pulse - - Temperature - - Respiratory Rate - - Oxygen Saturation - - Inhaled Oxygen Concentration - - Weight 88.5 kg (195 lb) 02/07/2020 2:50 PM CDT Height 181.6 cm (5' 11.5 ) 02/07/2020 2:50 PM CD T Body Mass Index 26.82 02/07/2020 2:50 PM CDT documented in this encounter Progress Notes * Tony Washington MD - 02/07/2020 2:45 PM CDTAssociated Order(s): Endometrial Biopsy Only Post-Procedure Diagnose(s): Menorrhagia with regular cycle Procedure Note Finesse Ramirez is a 49 y.o. female who presents for EMB pre-endometrial ablation. Finesse continues to have heavy cycles interfering with daily activity. She has a long hx of infertility and does not feel that is realistic at this time. She denies a hx of HTN though bp is elevated today. She has not been sexually active this month. Her mother had a late menopause. BP 160/92 (BP Location: Left arm) Ht 181.6 cm (5' 11.5 ) Wt 195 lb (88.5 kg) LMP 01/22/2020 BMI 26.82 kg/m?? Endometrial Biopsy Only Date/Time: 02/07/2020 3:39 PM Performed by: Tony Washington MD Authorized by: Tony Washington MD Consent Given by: Patient Verbal consent obtained: Yes Written consent obtained: Yes Risks, alternatives, and patient questions discussed: Yes Indications: Other disorder of menstruation and other abnormal bleeding from female genital tract Procedure: endometrial biopsy with Pipelle A bivalve speculum was placed in the vagina: yes Cervix cleaned and prepped: yes Uterus sounded: yes Uterus sound depth (cm): 8.5 Specimen collected: specimen collected and sent to pathology Patient tolerance: Patient tolerated the procedure well with no immediate complications Findings: Uterus size: <6 weeks Cervix: normal Adnexa: normal 3 passes yielded a large amount of tissue and blood. Physical Exam Constitutional: Appearance: Normal appearance. Genitourinary: General: Normal vulva. Labia: Right: No rash or lesion. Left: No rash or lesion. Vagina: Normal. Cervix: Normal. Uterus: Normal. Adnexa: Right adnexa normal. Neurological: Mental Status: She is alert. Psychiatric: Mood and Affect: Mood normal. Behavior: Behavior normal. Diagnoses and all orders for this visit: Menorrhagia with regular cycle (Primary) Comments: Discussed medical options with IUD and surgical options including ablation. Will plan Laura. Pt. denies need for BTL with infertility hx. Orders: - Surgical pathology; Future Other orders - Endometrial Biopsy Only Return for surgery. I discussed nature of procedure with expected outcomes and failure rate. Possible early menopause or need for hysterectomy if unsuccessful discussed. Will arrange surgery after COVID 19 restrictions lifted. documented in this encounter Plan of Treatment Not on file documented as of this encounter Procedures Procedure Name Priority Date/Time Associated Diagnosis Comments SC ENDOMETRIAL BX W/WO ENDOCERVIX BX W/O DILAT SPX Routine 02/07/2020 2:45 PM CDT Menorrhagia with regular cycle documented in this encounter Results * SC ENDOMETRIAL BX W/WO ENDOCERVIX BX W/O DILAT SPX (02/07/2020 2:45 PM CDT) Narrative Tony Washington MD - 02/07/2020 2:45 PM CDT Tony Washington MD ? 02/07/2020 ??3:44 PM Endometrial Biopsy Only Date/Time: 02/07/2020 3:39 PM Performed by: Tony Washington MD Authorized by: Tony Washington MD Consent Given by: ??Patient Verbal consent obtained: Yes ?? Written consent obtained: Yes ?? Risks, alternatives, and patient questions discussed: Yes ?? Indications: Other disorder of menstruation and other abnormal bleeding from female genital tract ?? Procedure: endometrial biopsy with Pipelle ?? A bivalve speculum was placed in the vagina: yes ?? Cervix cleaned and prepped: yes ?? Uterus sounded: yes ?? Uterus sound depth (cm): ??8.5 Specimen collected: specimen collected and sent to pathology ?? Patient tolerance: ??Patient tolerated the procedure well with no immediate complications Findings: Uterus size: ??<6 weeks Cervix: normal ?? Adnexa: normal ?? 3 passes yielded a large amount of tissue and blood. us Tony Washington MD IN CLINIC/BEDSIDE ORDERABL ES Final Result documented in this encounter Visit Diagnoses Diagnosis Menorrhagia with regular cycle- Primary documented in this encounter Discontinued Medications Medication Sig Discontinue Reason Start Date End Da te miSOPROStol (CYTOTEC) 200 mcg tablet Insert 1 tablet vaginally at HS on 12-27-19. Therapy completed 12/14/2019 02/07/2020 documented as of this encounter Historical Medications * This list may reflect changes made after this encounter. liraglutide, weight loss, 3 mg/0.5 mL (18 mg/3 mL) pen injector Inject 2.4 mg under the skin daily 01/28/2023 added in this encounter Care Teams Certified Pharmacy Technician Relationship Specialty Start Date End Date Laureano Lantigua MD [address] [place] [address] PCP - General Internal Medicine 07/30/18 Tony Washington MD [address] [place] [address] [address] [place] [address] Bag Filler Machine Operator Obstetrics and Gynecology 11/16/18 Anahy Rosales MD [address] [facility] [address] [place] [address] Referring Physician Psychiatry 11/16/18 documented as of this encounter
--- OUTSIDE RECORDS SUMMARY | 2024-11-15 03:26 | XMS_ITS | Encounter Summary ---
Author Organization [facility] Care Team Providers Care Ball Maker Name Role Phone Laureano Lantigua MD Primary Care Provider [phone] Tony Washington MD Unavailable [phone] Anahy Rosales MD Unavailable [phone] Encounter Details Date Type Department Care Team (Latest Contact Info) Description 12/13/2019 Travel Social History Tobacco Use Types Packs/Day Years Used Date Smoking Tobacco: Never Smokeless Tobacco: Never Alcohol Use Standard Drinks/Week Comments Yes 0 (1 standard drink = 0.6 oz pur e alcohol) PHQ-2 Answer Date Recorded PHQ-2 Score 0 11/22/2019 Comments No Sex and Gender Information Value Date Recorded Sex Assigned at Not on file Legal Sex Female 1:37 AM ENGINEERING AID Gender Identity Female 10/03/2023 10:05 AM ENGINEERING AID Sexual Orientation Straight 10/03/2023 10 :05 AM ENGINEERING AID documented as of this encounter Plan of Treatment Not on file documented as of this encounter Visit Diagnoses Not on filedocumented in this encounter Care Teams Ball Maker Relationship Specialty Start Date End Date Laureano Lantigua MD [address] [place] [address] PCP - General Internal Medicine 07/30/18 Tony Washington MD [address] [place] [address] [address] [address] Supervisor Cell Efficiency Obstetrics and Gynecology 11/16/18 Anahy Rosales MD [address] [place] [address] [address] [place] [address] Referring Physician Psychiatry 11/16/18 documented as of this encounter
--- OUTSIDE RECORDS SUMMARY | 2024-11-15 03:26 | XMS_ITS | Encounter Summary ---
Author Organization [facility] Address [address] [address] Care Team Providers Care Track Supervisor Name Role Phone Laureano Lantigua MD Primary Care Provider Tony Washington MD Unavailable [phone] Anahy Rosales MD Unavailable [phone] Reason for Visit * Reason Comments Annual Exam Encounter Details Date Type Department Care Team (Late st Contact Info) Description 11/22/2019 2:30 PM UPPER LEATHER CUTTER Office Visit [facility] [address] [place] [address] Laureano Lantigua MD [address] [place] [address] Routine physical examination (Primary Dx); Recurrent major depressive disorder, in full remission (CMS/HCC); Midline low back pain with sciatica, sciatica laterality unspecified, unspecified chronicity Social History Tobacco Use Types Packs/Day Years Used Date Smoking Tobacco: Never Smokeless Tobacco: Never Alcohol Use Standard Drinks/Week Comments Yes 0 (1 standard drink = 0.6 oz pur e alcohol) PHQ-2 Answer Date Recorded PHQ-2 Score 0 11/22/2019 Comments No Sex and Gender Information Value Date Recorded Sex Assigned at Not on file Legal Sex Female 1:37 AM UPPER LEATHER CUTTER Gender Identity Female 10/03/2023 10:05 AM UPPER LEATHER CUTTER Sexual Orientation Straight 10/03/2023 10 :05 AM UPPER LEATHER CUTTER documented as of this encounter Last Filed Vital Signs Vital Sign Reading Time Taken Comments Blood Pressure 150/90 11/22/2019 2:49 PM UPPER LEATHER CUTTER Pulse 76 11/22/2019 2:49 PM UPPER LEATHER CUTTER Temperature 36.4 ??C (97.5 ??F) 11/22/2019 2:49 PM CS T Respiratory Rate 18 11/22/2019 2:49 PM UPPER LEATHER CUTTER Oxygen Saturation 97% 11/22/2019 2:49 PM UPPER LEATHER CUTTER Inhaled Oxygen Concentration - - Weight 98.4 kg (217 lb) 11/22/2019 2:49 PM UPPER LEATHER CUTTER Height 181.6 cm (5' 11.5 ) 11/22/2019 2:49 PM CS T Body Mass Index 29.84 11/22/2019 2:49 PM UPPER LEATHER CUTTER documented in this encounter Patient Instructions * Patient Instructions* Laureano Lantigua MD - 11/22/2019 2:30 PM UPPER LEATHER CUTTER Have nurses call in soma 350 mg po qday prn #15 rtc in one year R LEATHER CUTTER R LEATHER CUTTER documented in this encounter Ordered Prescriptions Prescription Sig Dispense Quantity Refills Last Filled Start Date End Date oxyCODONE-acetamin ophen (PERCOCET) 5-325 mg per tabletIndications: Pain Take 1 tablet by mouth every 8 (eight) hours as needed for pain 30 tablet 11/22/2019 01/01/2021 albuterol HFA (PROVENTIL HFA,VENTOLIN HFA,PROAIR HFA) 90 mcg/actuation inhaler 2 puffs qid prn 1 Inhaler 11 11/22/2019 01/01/2021 documented in this encounter Progress Notes * Laureano Lantigua MD - 11/22/2019 2:30 PM CST Images from the original note were not included. Patient ID: Finesse Ramirez is a 49 y.o. female. Chief Complaint. Chief Complaint Patient presents with ??? Annual Exam HPI. Patient is a 49 y.o. female HPI immunizations were reviewed She has not had the flu shot meds were reviewed She has not seen the eye doctor She saw the dentist Pt is seeing the psychiatrist Past Medical History: Diagnosis Date ??? Asthma Asthma; Comments: [facility] 06/27/2014 - ??? Female infertility Infertility, female ??? Fibrocystic breast ??? Hammer toe Hammer toe; Comments: [facility] 06/27/2014 - ??? HX OTHER MEDICAL Sinusitis, ADD, diverticulosis, obesity, OA, asthm ??? HX OTHER MEDICAL Depression, with Anxiety; PCOS ??? HX OTHER MEDICAL Missed Ab ??? HX OTHER MEDICAL ; Outcome: [id number] week 7lb(s) 7 oz Male ??? Hypercholesterolemia High cholesterol; Comments: [facility] 06/27/2014 - ??? Hypertension Hypertension ??? Polycystic ovaries Polycystic ovary syndrome ??? Retinal detachment Detachment of retina; Comments: [facility] 06/27/2014 - Past Surgical History: [...] SURGERY Left ??? SPINAL FUSION Spinal fusion Allergies Allergen Reactions ??? Erythromycin Rash Reaction: Rash, ??? Opioids - Morphine Analogues Vomiting Reaction: Vomiting, ??? Morphine Nausea only and Vomiting Reaction: [...] Grandmother Hypertension; ??? Diabetes Other Diabetes mellitus; Current Medications: Outpatient Encounter Medications as of 11/22/2019 Medication Sig Dispense Refill ??? albuterol HFA (PROVENTIL HFA,VENTOLIN HFA) 90 mcg/actuation inhaler 2 puffs qid prn 1 Inhaler 11 ??? biotin (APPEAREX) 2,500 mcg tablet 2,500 mcg. 0 ??? carisoprodol (SOMA) 350 mg tablet Take 1 tablet (350 mg total) by mouth 3 (three) times a day as needed for muscle spasms. 30 tablet 0 ??? ferrous sulfate 325 mg (65 mg of elemental iron) tablet Take 65 mg of elemental iron by mouth daily with breakfast. ??? methylphenidate ER (CONCERTA) 18 mg CR tablet Take 18 mg by mouth daily ??? multivitamin (MULTIPLE VITAMINS) tablet tablet take 1 tablet by oral route every day with food 0 0 ??? omeprazole (PriLOSEC) 20 mg capsule TAKE 1 CAPSULE BY MOUTH qd 5 ??? oxyCODONE-acetaminophen (PERCOCET) 5-325 mg per tablet Take 1 tablet by mouth every 8 (eight) hours as needed for pain. 30 tablet 0 ??? sucralfate (CARAFATE) suspension 1 gram/10 mL Take 1 g by mouth. ??? [DISCONTINUED] buPROPion XL (WELLBUTRIN XL) 150 mg 24 hr tablet Take 1 tablet (150 mg total) bymouth every morning. 90 tablet 2 ??? [DISCONTINUED] cyanocobalamin (vitamin B-12) 500 mcg tablet 500 mcg. 0 0 ??? [DISCONTINUED] multivitamin capsule take 1 capsule by oral route every day 0 0 ??? [DISCONTINUED] TRINTELLIX 10 mg tablet Take 10 mg by mouth daily. 1 No facility-administered encounter medications on file as of 11/22/2019. Review of Systems Respiratory: Negative. Cardiovascular: Negative. Gastrointestinal: Negative. Neurological: Negative. BP 150/90 Pulse 76 Temp 36.4 ??C (97.5 ??F) Resp 18 Ht 181.6 cm (5' 11.5 ) Wt 98.4 kg (217 lb) LMP 11/04/2019 SpO2 97% BMI 29.84 kg/m?? Physical Exam Vitals signs and nursing note reviewed. Constitutional: Appearance: Normal appearance. She is normal weight. HENT: Head: Normocephalic and atraumatic. Right Ear: Tympanic membrane, ear canal and external ear normal. Left Ear: Tympanic membrane, ear canal and external ear normal. Nose: Nose normal. Mouth/Throat: Mouth: Mucous membranes are moist. Pharynx: Oropharynx is clear. Eyes: Extraocular Movements: Extraocular movements intact. Pupils: Pupils are equal, round, and reactive to light. Neck: Musculoskeletal: Normal range of motion. Cardiovascular: Rate and Rhythm: Normal rate and regular rhythm. Pulses: Normal pulses. Heart sounds: Normal heart sounds. Pulmonary: Effort: Pulmonary effort is normal. Abdominal: General: Abdomen is flat. Palpations: Abdomen is soft. Musculoskeletal: Normal range of motion. Skin: General: Skin is warm. Neurological: General: No focal deficit present. Mental Status: She is alert and oriented to person, place, and time. Psychiatric: Mood and Affect: Mood normal. Thought Content: Thought content normal. Office Visit on 11/22/2019 Component Date Value ??? Fecal Globin, POC 11/22/2019 Negative Most Recent Immunizations Administered Date(s) Administered ??? Influenza, Quadrivalent, Split, Intramuscular 11/07/2016 ??? Tdap 10/27/2017 Assessment & Plan: There are no diagnoses linked to this encounter. Laureano Lantigua MD R LEATHER CUTTER documented in this encounter Plan of Treatment Not on file documented as of this encounter Visit Diagnoses Diagnosis Routine physical examination- Primary Routine general medical examination at a health care facility Recurrent major depressive disorder, in full remission (CMS/HCC) (HCC) Midline low back pain with sciatica, sciatica laterality unspecified, unspecified chronicity documented in this encounter Discontinued Medications Medication Sig Discontinue Reason Start Date End Da te albuterol HFA (PROVENTIL HFA,VENTOLIN HFA) 90 mcg/actuation inhaler 2 puffs qid prn Reorder 12/08/2017 11/22/2019 oxyCODONE-acetaminophen (PERCOCET) 5-325 mg per tabletIndications:Pain Take 1 tablet by mouth every 8 (eight) hours as needed for pain. Reorder 11/16/2019 11/22/2019 documented as of this encounter Care Teams Track Supervisor Relationship Specialty Start Date End Date Laureano Lantigua MD [address] [place] [address] PCP - General Internal Medicine 07/30/18 Tony Washington MD [address] [facility] [address] [place] [address] Whipper Obstetrics and Gynecology 11/16/18 Anahy Rosales MD [address] [facility] [address] [place] [address] Referring Physician Psychiatry 11/16/18 documented as of this encounter
--- OUTSIDE RECORDS SUMMARY | 2024-11-15 03:26 | XMS_ITS | Encounter Summary ---
Author Organization [facility] Care Team Providers Care Residential Roofer Name Role Phone Laureano Lantigua MD Primary Care Provider [phone] Tony Washington MD Unavailable [phone] Anahy Rosales MD Unavailable [phone] Encounter Details Date Type Department Care Team (Latest Contact Info) Description 02/07/2020 Travel Social History Tobacco Use Types Packs/Day Years Used Date Smoking Tobacco: Never Smokeless Tobacco: Never Alcohol Use Standard Drinks/Week Comments Yes 0 (1 standard drink = 0.6 oz pur e alcohol) PHQ-2 Answer Date Recorded PHQ-2 Score 0 11/22/2019 Comments No Sex and Gender Information Value Date Recorded Sex Assigned at Not on file Legal Sex Female 1:37 AM PASS WORKER Gender Identity Female 10/03/2023 10:05 AM PASS WORKER Sexual Orientation Straight 10/03/2023 10 :05 AM PASS WORKER COVID-19 Exposure Response Date Recorded In the last month, have you been in contact with someone who was confirmed or suspected to have Coronavirus / COVID-19? No / Unsure 02/07/2020 2:44 PM CDT documented as of this encounter Plan of Treatment Not on file documented as of this encounter Visit Diagnoses Not on filedocumented in this encounter Care Teams Residential Roofer Relationship Specialty Start Date End Date Laureano Lantigua MD [address] [place] [address] PCP - General Internal Medicine 07/30/18 Tony Washington MD [address] [facility] [address] [place] [address] Granite Polisher Obstetrics and Gynecology 11/16/18 Anahy Rosales MD [address] [facility] [address] [place] [address] Referring Physician Psychiatry 11/16/18 documented as of this encounter
--- OUTSIDE RECORDS SUMMARY | 2024-11-15 03:26 | XMS_ITS | Encounter Summary ---
Author Organization [facility] Address [address] [place] [address] Care Team Providers Care Senior Systems Software Engineer Name Role Phone Laureano Lantigua MD Primary Care Provider [phone] Tony Washington MD Unavailable [phone] Anahy Rosales MD Unavailable [phone] Reason for Referral * Diagnostic Lab (Routine) - Closed Specialty Diagnoses / Procedures Referred By Jesse santana Referred To Contact Lab Diagnoses Encounter for gynecological examination with abnormal finding Procedures Imaging Pap and HPV mRNA E6/E7 Tony Washington MD [address] [place] [address] [address] [place] [address] Phone: tel: fax: Referral ID Status Reason Start Date Expiration Date Visits Re quested Visits Authorized [id number] Closed 11/22/2019 06/02/2021 1 1 RNET SOURCER Reason for Visit * Reason Comments Annual Exam Encounter Details Date Type Department Care Team (Late st Contact Info) Description 11/22/2019 8:00 AM INTERNET SOURCER Office Visit Abel Yoon [address] [place] [address] Tony Washington MD [address] [place] [address] [address] [place] [address] Encounter for gynecological examination with abnormal finding (Primary Dx); Screening for colon cancer; Menorrhagia with regular cycle Social History Tobacco Use Types Packs/Day Years Used Date Smoking Tobacco: Never Smokeless Tobacco: Never Alcohol Use Standard Drinks/Week Comments Yes 0 (1 standard drink = 0.6 oz pur e alcohol) PHQ-2 Answer Date Recorded PHQ-2 Score 0 11/22/2019 Comments No Sex and Gender Information Value Date Recorded Sex Assigned at Not on file Legal Sex Female 1:37 AM INTERNET SOURCER Gender Identity Female 10/03/2023 10:05 AM INTERNET SOURCER Sexual Orientation Straight 10/03/2023 10 :05 AM INTERNET SOURCER documented as of this encounter Last Filed Vital Signs Vital Sign Reading Time Taken Comments Blood Pressure 140/76 11/22/2019 8:15 AM INTERNET SOURCER Pulse - - Temperature - - Respiratory Rate - - Oxygen Saturation - - Inhaled Oxygen Concentration - - Weight 98.4 kg (217 lb) 11/22/2019 8:15 AM INTERNET SOURCER Height 180.3 cm (5' 11 ) 11/22/2019 8:15 AM INTERNET SOURCER Body Mass Index 30.27 11/22/2019 8:15 AM INTERNET SOURCER documented in this encounter Progress Notes * Tony Washington MD - 11/22/2019 8:00 AM CST Well Woman Exam Subjective: Pateint presents for: Annual Exam Finesse Ramirez is a 49 y.o. year old female who presents for a well woman exam. She reportsmonthly heavy cycles lasting 6-7 days with 3-4 heavy days requiring a tampon and overnight pad. Sheis considering an endometrial ablation. She is s/p gastric sleeve. She reports mild stress incontinence. She recently did the Flurryy gene test. No SI or HI. She is from her of ten years but still relates to him. Contraception:None. Patient's last menstrual period was 11/04/2019. Past Medical History: Diagnosis Date ??? Asthma Asthma; Comments: [facility] 06/27/2014 - ??? Female infertility Infertility, female ??? Fibrocystic breast ??? Hammer toe Hammer toe; Comments: [facility] 06/27/2014 - ??? HX OTHER MEDICAL Sinusitis, ADD, diverticulosis, obesity, OA, asthm ??? HX OTHER MEDICAL Depression, with Anxiety; PCOS ??? HX OTHER MEDICAL Missed Ab ??? HX OTHER MEDICAL ; Outcome: [id number] week 7lb(s) 7 oz Male ??? Hypercholesterolemia High cholesterol; Comments: [facility] 06/27/2014 - ??? Hypertension Hypertension ??? Polycystic ovaries Polycystic ovary syndrome ??? Retinal detachment Detachment of retina; Comments: [facility] 06/27/2014 - Past Surgical History: Procedure [...] Outpatient Medications: ??? albuterol HFA (PROVENTIL HFA,VENTOLIN HFA) 90 mcg/actuation inhaler, 2 puffs qid prn, Disp: 1 Inhaler, Rfl: 11 ??? biotin (APPEAREX) 2,500 mcg tablet, 2,500 mcg., Disp: , Rfl: 0 ??? carisoprodol (SOMA) 350 mg tablet, Take 1 tablet (350 mg total) by mouth 3 (three) times a day as needed for muscle spasms., Disp: 30 tablet, Rfl: 0 ??? ferrous sulfate 325 mg (65 mg of elemental iron) tablet, Take 65 mg of elemental iron by mouth daily with breakfast., Disp: , Rfl: ??? methylphenidate ER (CONCERTA) [...] every 8 (eight) hours as needed for pain., Disp: 30 tablet, Rfl: 0 ??? sucralfate (CARAFATE) suspension 1 gram/10 mL, Take 1 g by mouth., Disp: , Rfl: Allergies Allergen Reactions ??? Erythromycin Rash Reaction: [...] History Socioeconomic History ??? Marital status: Legally Spouse name: None ??? Number of children: 1 ??? Years of education: None ??? Highest education level: None Occupational History ??? None Social Needs ??? Financial resource strain: None ??? Food insecurity: Worry: None Inability: None ??? Transportation needs: Medical: None Non-medical: None Tobacco Use ??? Smoking status: Never Smoker ??? Smokeless tobacco: Never Used Substance and Sexual Activity ??? Alcohol use: Yes ??? Drug use: No ??? Sexual activity: Not Currently Lifestyle ??? Physical activity: Days per week: None Minutes per session: None ??? Stress: None Relationships ??? Social connections: Talks on phone: None Gets together: None Attends zoroastrian service: None Active member of club or organization: None Attends meetings of clubs or organizations: None Relationship status: None ??? Intimate partner violence: Fear of current or ex partner: None Emotionally abused: None Physically abused: None Forced sexual activity: None Other Topics Concern ??? None Social History Narrative ??? None Review of Systems Constitutional: Negative for chills, fatigue, fever and unexpected weight change. HENT: Negative for hearing loss, sore throat, tinnitus and trouble swallowing. Eyes: Negative for pain and visual disturbance. Respiratory: Positive for wheezing. Negative for cough and shortness of breath. Asthma Cardiovascular: Negative for chest pain, palpitations and leg swelling. Gastrointestinal: Negative for abdominal pain, blood in stool, constipation, diarrhea, nausea and vomiting. Endocrine: Negative for cold intolerance, heat intolerance and polydipsia. Genitourinary: Negative for dyspareunia, dysuria, frequency, hematuria, menstrual problem, pelvic pain, vaginal bleeding and vaginal discharge. Musculoskeletal: Positive for arthralgias and back pain. Negative for joint swelling and myalgias. Skin: Negative for color change and rash. Neurological: Negative for dizziness, numbness and headaches. Hematological: Does not bruise/bleed easily. Psychiatric/Behavioral: Negative for dysphoric mood, sleep disturbance and suicidal ideas. The patient is not nervous/anxious. Objective: BP 140/76 (BP Location: Left arm, Patient Position: Sitting) Ht 180.3 cm (5' 11 ) Wt 217 lb (98.4 kg) LMP 11/04/2019 BMI 30.27 kg/m?? Physical Exam Constitutional: Appearance: She is well-developed. HENT: Head: Normocephalic. Eyes: Conjunctiva/sclera: Conjunctivae normal. Neck: Musculoskeletal: Neck supple. Thyroid: No thyromegaly. Cardiovascular: Rate and Rhythm: Normal rate and regular rhythm. Pulmonary: Effort: Pulmonary effort is normal. Breath sounds: Normal breath sounds. Chest: Breasts: Right: No mass, nipple discharge, skin change or tenderness. Left: No mass, nipple discharge, skin change or tenderness. Abdominal: Palpations: Abdomen is soft. There is no mass. Tenderness: There is no tenderness. There is no rebound. Hernia: No hernia is present. Genitourinary: Labia: Right: No lesion. Left: No lesion. Vagina: Normal. No vaginal discharge. Cervix: No cervical motion tenderness. Uterus: Not enlarged and not tender. Adnexa: Right: No mass or tenderness. Left: No mass or tenderness. Rectum: Normal. Guaiac result negative. Musculoskeletal: General: No tenderness. Lymphadenopathy: Cervical: No cervical adenopathy. Upper Body: Right upper body: No supraclavicular adenopathy. Left upper body: No supraclavicular adenopathy. Skin: General: Skin is warm and dry. Neurological: Mental Status: She is alert and oriented to person, place, and time. Assessment and Plan: Normal exam. Diagnoses and all orders for this visit: Encounter for gynecological examination with abnormal finding (Primary) - Imaging Pap and HPV mRNA E6/E7; Future Screening for colon cancer Comments: Hemasure is negative. Colonoscopy recommended. Orders: - POCT fecal occult blood Menorrhagia with regular cycle Comments: Check pelvic sono. Recommended screenings and preventive care discussed: Breast cancer: Breast Self Exam encouraged. Pap and HR HPV done. MVI daily recommended and cholesterol followed by PCP. Low fat, low carbohydrate diet and exercise encouraged. Return in about 1 year (around 11/22/2020) for annual exam. Tony Washington MD 11/22/2019 RNET SOURCER documented in this encounter Plan of Treatment Not on file documented as of this encounter Procedures Procedure Name Priority Date/Time Associated Diagnosis Comments POCT FECAL OCCULT BLOOD, NOT FOR NEOPLASM SCREENING Routine 11/22/2019 9:00 AM INTERNET SOURCER Screening for colon cancer IMAGING PAP AND HPV MRNA E6/E7 Routine 11/22/2019 8:38 AM INTERNET SOURCER Encounter for gynecological examination with abnormal finding documented in this encounter Results * POCT fecal occult blood (11/22/2019 9:00 AM INTERNET SOURCER) Fecal Globin, POC Negative Comment:Lot # [id number] Rectum 11/22/2019 9:00 AM INTERNET SOURCER us Tony Washington MD POINT OF CARE TEST ORDERAB LES Final Result * Imaging Pap and HPV mRNA E6/E7 (11/22/2019 8:38 AM INTERNET SOURCER) CLINICAL INFORMATION: [facility] Comment:Information not prov ided LMP [facility] Comment:INFORMATION NOT PROV IDED Previous Pap [facility] Comment:INFORMATION NOT PROV IDED Prev. Bx [facility] - Comment:INFORMATION NOT PROV IDED SOURCE: [facility] - Comment:Information not prov ided Pap, specimen adequacy [facility] - Comment: Satisfactory for evaluation. Endocervical/transformation zone component present. Age and/or menstrual status not provided HPV interp [facility] - Comment:Negative for intraep ithelial lesion or malignancy. COMMENTS [facility] - Comment: This Pap test has been evaluated with computer assisted technology. [employer] [facility] Comment: RORO PATEL(ASCP) CT screening location: [place] [address] [address] [place] [address] Comment [facility] - Comment: EXPLANATORY NOTE: The Pap is a screening test for cervical cancer. It is not a diagnostic test and is subject to false negative and false positive results. It is most reliable when a satisfactory sample, regularly obtained, is submitted with relevant clinical findings and history, and when the Pap result is evaluated along with historic and current clinical information. Human papillomavirus RNA, High Risk E6/E7 Not Detected Not Detected [facility] Comment: This test was performed using the APTIMA HPV Assay ([employer] This assay detects E6/E7 viral messenger RNA (mRNA) from 14 high-risk HPV types (16,18,31,33,35,39,45,51,52,56,58,59,66,68). The analytical performance characteristics of this assay have been determined by [facility] [facility]. The modifications have not been cleared or approved by the FDA. This assay has been validated pursuant to the CLIA regulations and is used for clinical purposes. Cervical 11/22/2019 8:38 AM INTERNET SOURCER 11/23/2019 7:10 AM INTERNET SOURCER Narrative Resulting Agency Comment Performing Organization Information: ?Site ID: [place] ?Name: [facility] ?Address: [address] [place] [address] ?Director: Alfredo Dc D.O., PETERSON ?Site ID: ?Name: [facility] ?Address: [facility] [address] [place] [address] ?Director: Js Moe Tony Washington MD LAB PATHOLOGY ORDERABLES F inal Result [facility] [place], [place] [facility] [place] documented in this encounter Visit Diagnoses Diagnosis Encounter for gynecological examination with abnormal finding- Primary Screening for colon cancer Special screening for malignant neoplasms, colon Menorrhagia with regular cycle documented in this encounter Discontinued Medications Medication Sig Discontinue Reason Start Date End Da te buPROPion XL (WELLBUTRIN XL) 150 mg 24 hr tablet Take 1 tablet (150 mg total) by mouth every morning. Therapy completed 11/16/2018 11/22/2019 cyanocobalamin (vitamin B-12) 500 mcg tablet 500 mcg. Therapy completed 08/10/2015 0 multivitamin capsule take 1 capsule by oral route every day Therapy completed 08/10/2015 11/22/2019 TRINTELLIX 10 mg tabletIndications:major depressive disorder Take 10 mg by mouth daily. Therapy completed 03/18/2018 11/22/2019 documented as of this encounter Historical Medications * This list may reflect changes made after this encounter. methylphenidate ER (CONCERTA) 18 mg CR tablet Take 18 mg by mouth daily 09/13/2019 01/28/2023 added in this encounter Care Teams Senior Systems Software Engineer Relationship Specialty Start Date End Date Laureano Lantigua MD [address] [place] [address] PCP - General Internal Medicine 07/30/18 Tony Washington MD [address] [place] [address] [address] [place] [address] Seamer Elastic Band Obstetrics and Gynecology 11/16/18 Anahy Rosales MD [address] [place] [address] [place] [address] Referring Physician Psychiatry 11/16/18 documented as of this encounter
--- OUTSIDE RECORDS SUMMARY | 2024-11-15 03:26 | XMS_ITS | Encounter Summary ---
Author Organization [facility] Address [address] [address] Care Team Providers Care Payment Analyst Name Role Phone Laureano Lantigua MD Primary Care Provider Tony Washington MD Unavailable [phone] Anahy Rosales MD Unavailable [phone] Reason for Visit * Reason Comments Annual Exam Encounter Details Date Type Department Care Team (Late st Contact Info) Description 01/01/2021 9:30 AM CORPORATE AIRCRAFT MECHANIC Office Visit [facility] [address] [place] [address] Laureano Lantigua MD [address] [place] [address] Routine physical examination (Primary Dx); Recurrent major depressive disorder, in full remission (CMS/HCC); Spinal stenosis of lumbar region without neurogenic claudication; Colon cancer screening Social History Tobacco Use Types Packs/Day Years Used Date Smoking Tobacco: Never Smokeless Tobacco: Never Alcohol Use Standard Drinks/Week Comments Yes 0 (1 standard drink = 0.6 oz pur e alcohol) PHQ-2 Answer Date Recorded PHQ-2 Score 0 11/22/2019 Comments No Sex and Gender Information Value Date Recorded Sex Assigned at Not on file Legal Sex Female 1:37 AM CORPORATE AIRCRAFT MECHANIC Gender Identity Female 10/03/2023 10:05 AM CORPORATE AIRCRAFT MECHANIC Sexual Orientation Straight 10/03/2023 10 :05 AM CORPORATE AIRCRAFT MECHANIC documented as of this encounter Last Filed Vital Signs Vital Sign Reading Time Taken Comments Blood Pressure 110/70 01/01/2021 9:24 AM CORPORATE AIRCRAFT MECHANIC Pulse 89 01/01/2021 9:24 AM CORPORATE AIRCRAFT MECHANIC Temperature 36.4 ??C (97.5 ??F) 01/01/2021 9:24 AM CS T Respiratory Rate 18 01/01/2021 9:24 AM CORPORATE AIRCRAFT MECHANIC Oxygen Saturation 98% 01/01/2021 9:24 AM CORPORATE AIRCRAFT MECHANIC Inhaled Oxygen Concentration - - Weight 90.4 kg (199 lb 3.2 oz) 01/01/2021 9:24 A M CORPORATE AIRCRAFT MECHANIC Height - - Body Mass Index 27.02 11/27/2020 11:20 AM CORPORATE AIRCRAFT MECHANIC documented in this encounter Patient Instructions * Patient Instructions* Laureano Lantigua MD - 01/01/2021 9:30 AM CORPORATE AIRCRAFT MECHANIC SIGN HER UP FOR VACCINE HAVE NURSES CALL IN SOMA HAVE NURSES CALL IN PERCOCET ( 45 ) Q 8 HOUR PRN RTC IN SIX MONTH CBC/CMP/FLP NEXT VISIT PLEASE ARRANGE COLONSCOPY DR MARCELO OR DR QUESADA ORATE AIRCRAFT MECHANIC ORATE AIRCRAFT MECHANIC ORATE AIRCRAFT MECHANIC documented in this encounter Ordered Prescriptions Prescription Sig Dispense Quantity Refills Last Filled Start Date End Date albuterol HFA (PROVENTIL HFA,VENTOLIN HFA,PROAIR HFA) 90 mcg/actuation inhaler 2 puffs qid prn 1 Inhaler 11 01/01/2021 01/04/2022 documented in this encounter Progress Notes * Laureano Lantigua MD - 01/01/2021 9:30 AM CST Subjective/Objective Patient ID: Finesse Ramirez is a 50 y.o. female. Chief Complaint Annual Exam HPI IMMUNIZATIONS WERE REVIEWED DISCUSSED COVID VACCINE SHE WILL BE 51 IN February DISCUSSED SHINGLES VACCINE SHE DID SEE THE EYE DOCTOR SHE HAS A DENTIST APPT TOMORROW LEFT CUBITAL SURGERY PT IS NEEDING A COLONSCOPY SHE IS STILL C/O LOWER BACK PAIN Review of Systems Respiratory: Negative. Cardiovascular: Negative. Genitourinary: Negative. Neurological: Negative. Physical Exam Nursing note reviewed. HENT: Head: Normocephalic. Right Ear: Tympanic membrane, ear canal and external ear normal. Left Ear: Tympanic membrane, ear canal and external ear normal. Nose: Nose normal. Neck: Musculoskeletal: Normal range of motion. Cardiovascular: Rate and Rhythm: Normal rate and regular rhythm. Pulses: Normal pulses. Heart sounds: Normal heart sounds. Pulmonary: Effort: Pulmonary effort is normal. Breath sounds: Normal breath sounds. Musculoskeletal: Normal range of motion. Neurological: General: No focal deficit present. Mental Status: She is alert and oriented to person, place, and time. Assessment/Plan Diagnoses and all orders for this visit: Routine physical examination (Z00.00) (Primary) Comments: IMMUNIZATIONS WERE REVIEWED MEDS WERE REVIEWED LABS WERE REVIEWED Recurrent major depressive disorder, in full remission (CMS/HCC) (F33.42) Comments: PT IS SEEING THE PSYHCIATRIST DOING WELL. Spinal stenosis of lumbar region without neurogenic claudication (M48.061) Comments: ON SOMA PRN ON PERCOCET ( SHE WANTS TO GO UP ON THE NUMBERS TO 40 PILLS ) Other orders - albuterol HFA (PROVENTIL HFA,VENTOLIN HFA,PROAIR HFA) 90 mcg/actuation inhaler; 2 puffs qid prn documented in this encounter Plan of Treatment Not on file documented as of this encounter Visit Diagnoses Diagnosis Routine physical examination- Primary Routine general medical examination at a health care facility Recurrent major depressive disorder, in full remission (CMS/HCC) (HCC) Spinal stenosis of lumbar region without neurogenic claudication Colon cancer screening Special screening for malignant neoplasms, colon documented in this encounter Discontinued Medications Medication Sig Discontinue Reason Start Date End Da te albuterol HFA (PROVENTIL HFA,VENTOLIN HFA,PROAIR HFA) 90 mcg/actuation inhaler 2 puffs qid prn Reorder 11/22/2019 021 documented as of this encounter Care Teams Payment Analyst Relationship Specialty Start Date End Date Laureano Lantigua MD [address] [place] [address] PCP - General Internal Medicine 07/30/18 Tony Washington MD [address] [place] [address] [place] [address] Supervisor Fertilizer Obstetrics and Gynecology 11/16/18 Anahy Rosales MD [address] [place] [address] [place] [address] Referring Physician Psychiatry 11/16/18 documented as of this encounter
--- OUTSIDE RECORDS SUMMARY | 2024-11-15 03:26 | XMS_ITS | Encounter Summary ---
Author Organization [facility] Address [address] [facility] [address] [place] [address] Care Team Providers Care Machine Spring Former Name Role Phone Laureano Lantigua MD Primary Care Provider [phone] Tony Washington MD Unavailable [phone] Anahy Rosales MD Unavailable [phone] Reason for Referral * Diagnostic Imaging (Routine) - Closed Specialty Diagnoses / Procedures Referred By Jesse t Referred To Contact Diagnoses Encounter for screening mammogram for malignant neoplasm of breast Procedures SCREENING MAMMOGRAM BILATERAL W Tony Quevedo MD [address] [place] [address] [address], [place] [address] Phone: tel: fax: [address] [address] Referral ID Status Reason Start Date Expiration Date Visits Re quested Visits Authorized [id number] Closed 11/27/2020 12/27/2021 1 1 INE ASSISTANT Reason for Visit * Reason Comments Gynecologic Exam wwe Encounter Details Date Type Department Care Team (Late st Contact Info) Description 11/27/2020 11:00 AM MACHINE ASSISTANT Office Visit [place] [facility] [address], [place] [address] Tony Washington MD [address] [place] [address] [address] [place] [address] Well woman exam (Primary Dx); Encounter for screening mammogram for malignant neoplasm of breast; Screening for colon cancer Social History Tobacco Use Types Packs/Day Years Used Date Smoking Tobacco: Never Smokeless Tobacco: Never Alcohol Use Standard Drinks/Week Comments Yes 0 (1 standard drink = 0.6 oz pur e alcohol) PHQ-2 Answer Date Recorded PHQ-2 Score 0 11/22/2019 Comments No Sex and Gender Information Value Date Recorded Sex Assigned at Not on file Legal Sex Female 1:37 AM MACHINE ASSISTANT Gender Identity Female 10/03/2023 10:05 AM MACHINE ASSISTANT Sexual Orientation Straight 10/03/2023 10 :05 AM MACHINE ASSISTANT documented as of this encounter Last Filed Vital Signs Vital Sign Reading Time Taken Comments Blood Pressure 130/78 11/27/2020 11:20 AM MACHINE ASSISTANT Pulse - - Temperature - - Respiratory Rate - - Oxygen Saturation - - Inhaled Oxygen Concentration - - Weight 90.3 kg (199 lb) 11/27/2020 11:20 AM MACHINE ASSISTANT Height 182.9 cm (6') 11/27/2020 11:20 AM MACHINE ASSISTANT Body Mass Index 26.99 11/27/2020 11:20 AM MACHINE ASSISTANT documented in this encounter Progress Notes * Tony Washington MD - 11/27/2020 11:00 AM CST Well Woman Exam Subjective: Pateint presents for: Gynecologic Exam (wwe) Finesse Ramirez is a 51 y.o. year old female who presents for a well woman exam. Finesse reports severe bilateral hand pruritis, swelling and redness over the last week now involving her feet. She was given hydroxyzine and a steroid. She had blood work done 5 days ago. Contraception:None. Patient's last menstrual period was 11/22/2020. Irregular cycles now. Past Medical History: Diagnosis Date ??? Asthma Asthma; Comments: [facility] 06/27/2014 - ??? Female infertility Infertility, female ??? Fibrocystic breast ??? Hammer toe Hammer toe; Comments: [facility] 06/27/2014 - ??? HX OTHER MEDICAL Sinusitis, ADD, diverticulosis, obesity, OA, asthm ??? HX OTHER MEDICAL Depression, with Anxiety; PCOS ??? HX OTHER MEDICAL Missed Ab ??? HX OTHER MEDICAL ; Outcome: [id number] week 7lb(s) 7 oz Male ??? Hypercholesterolemia High cholesterol; Comments: [facility] 06/27/2014 - ??? Hypertension Hypertension ??? Polycystic ovaries Polycystic ovary syndrome ??? Retinal detachment Detachment of retina; Comments: [facility] 06/27/2014 - Past Surgical History: Procedure Laterality Date ??? ANKLE SURGERY Ankle surgery ??? BREAST BIOPSY ??? CARPAL TUNNEL RELEASE Carpal tunnel release ??? CHOLECYSTECTOMY 03/2018 ??? ELBOW SURGERY 11/07/2020 ??? FOOT SURGERY [...] FUSION Spinal fusion Current Outpatient Medications: ??? biotin (APPEAREX) 2,500 mcg tablet, 2,500 mcg., Disp: , Rfl: 0 ??? busPIRone (BUSPAR) 10 mg tablet, daily as needed , Disp: , Rfl: ??? ferrous sulfate 325 mg (65 mg [...] MOUTH qd, Disp: , Rfl: 5 ??? sucralfate (CARAFATE) suspension 1 gram/10 mL, Take 1 g by mouth., Disp: , Rfl: ??? albuterol HFA (PROVENTIL HFA,VENTOLIN HFA,PROAIR HFA) 90 mcg/actuation inhaler, 2 puffs qid prn, Disp: 1 Inhaler, Rfl: 11 ??? carisoprodoL (SOMA) 350 mg tablet, Take 1 tablet (350 mg total) by mouth nightly as needed for muscle spasms, Disp: 15 tablet, Rfl: 0 ??? oxyCODONE-acetaminophen (PERCOCET) 5-325 mg per tablet, Take 1 tablet by mouth every 8 (eight) hours as needed for pain, Disp: 45 tablet, Rfl: 0 Allergies Allergen Reactions ??? Erythromycin [...] education level: None Occupational History ??? None Tobacco Use ??? Smoking status: Never Smoker ??? Smokeless tobacco: Never Used Substance and Sexual Activity ??? Alcohol use: Yes ??? Drug use: No ??? Sexual activity: Yes control/protection: None Other Topics Concern ??? None Social History Narrative ??? None Social Determinants of Health Financial Resource Strain: ??? Difficulty of Paying Living Expenses: Food Insecurity: ??? Worried About Running Out of Food in the Last Year: ??? Ran Out of Food in the Last Year: Transportation Needs: ??? Lack of Transportation (Medical): ??? Lack of Transportation (Non-Medical): Physical Activity: ??? Days of Exercise per Week: ??? Minutes of Exercise per Session: Stress: ??? Feeling of Stress : Social Connections: ??? Frequency of Communication with Friends and Family: ??? Frequency of Social Gatherings with Friends and Family: ??? Attends Anabaptism Services: ??? Active Member of Clubs or Organizations: ??? Attends Club or Organization Meetings: ??? Marital Status: Intimate Partner Violence: ??? Fear of Current or Ex-Partner: ??? Emotionally Abused: ??? Physically Abused: ??? Sexually Abused: Review of Systems Constitutional: Positive for unexpected weight change (gain). Negative for chills, fatigue and fever. HENT: Negative for hearing loss, sore throat, tinnitus and trouble swallowing. Eyes: Negative for pain and visual disturbance. Respiratory: Negative for cough, shortness of breath and wheezing. Cardiovascular: Positive for leg swelling. Negative for chest pain and palpitations. Gastrointestinal: Positive for diarrhea. Negative for abdominal pain, blood in stool, constipation,nausea and vomiting. Endocrine: Negative for cold intolerance, heat intolerance and polydipsia. Genitourinary: Negative for dyspareunia, dysuria, frequency, hematuria, menstrual problem, pelvic pain, vaginal bleeding and vaginal discharge. Incontinence. Musculoskeletal: Positive for arthralgias and back pain. Negative for joint swelling and myalgias. Skin: Negative for color change and rash. Neurological: Positive for tremors and headaches. Negative for dizziness and numbness. Hematological: Does not bruise/bleed easily. Psychiatric/Behavioral: Negative for dysphoric mood, sleep disturbance and suicidal ideas. The patient is nervous/anxious. Objective: BP 130/78 (BP Location: Right arm) Ht 182.9 cm (6') Wt 199 lb (90.3 kg) LMP 11/22/2020 BMI 26.99 kg/m?? Physical Exam Constitutional: Appearance: She is [...] Skin: General: Skin is warm and dry. Findings: Rash (hands and slight feet, slight edema) present. Neurological: Mental Status: She is alert and oriented to person, place, and time. Assessment and Plan: Normal exam. Diagnoses and all orders for this visit: Well woman exam (Primary) - Pap with reflex to High Risk HPV; Future Encounter for screening mammogram for malignant neoplasm of breast Comments: Script given. Orders: - SCREENING MAMMOGRAM BILATERAL W RADHA; Future Screening for colon cancer Comments: Hemoccult is negative. Colonoscopy recommended. Orders: - POCT fecal occult blood Recommended screenings and preventive care discussed: Breast cancer: Breast Self Exam encouraged. Pap with reflex done. Contraceptive options discussed. MVI daily recommended and cholesterol followed by PCP. Low fat, low carbohydrate diet and exercise encouraged. Return in about 1 year (around 11/27/2021) for annual exam. Tony Washington MD 11/27/2020 documented in this encounter Plan of Treatment Not on file documented as of this encounter Procedures Procedure Name Priority Date/Time Associated Diagnosis Comments POCT FECAL OCCULT BLOOD, NOT FOR NEOPLASM SCREENING Routine 11/27/2020 12:12 PM MACHINE ASSISTANT Screening for colon cancer PAP WITH REFLEX TO HIGH RISK HPV Routine 11/27/2020 12:06 PM MACHINE ASSISTANT Well woman exam documented in this encounter Results * SCREENING MAMMOGRAM BILATERAL W RAHDA (01/01/2021 8:09 AM MACHINE ASSISTANT) Anatomical Region Laterality Modality Breast Bilateral Mammography 01/01/2021 8:48 AM MACHINE ASSISTANT Impressions 01/01/2021 9:24 AM MACHINE ASSISTANT There is no mammographic evidence of malignancy. A 1 year screening mammogram is recommended. BI-RADS: 1 - Negative. The patient will be entered into a reminder system with a target due date of 1 year for her next mammogram. Electronically signed by: Rosalia Church MD Narrative 01/01/2021 9:24 AM MACHINE ASSISTANT EXAMINATION: SCREENING MAMMOGRAM BILATERAL W RADHA ORDERING [...] Washington MD IMG MAMMO PROCEDURES Final Result * POCT fecal occult blood (11/27/2020 12:12 PM MACHINE ASSISTANT) Fecal Globin, POC Negative Rectum 11/27/2020 12:1 2 PM MACHINE ASSISTANT Tony Washington MD POINT OF CARE TEST ORDERAB LES Final Result * Pap with reflex to High Risk HPV (11/27/2020 12:06 PM MACHINE ASSISTANT) CLINICAL INFORMATION: Arsenio Hwang Comment:WELL WOMAN EXAM LMP Arsenio Hwang Comment:11-22-20 Previous Pap Arsenio Hwang Comment:INFORMATION NOT PROV IDED Prev. Bx Arsenio Hwang Comment:INFORMATION NOT PROV IDED SOURCE: Arsenio Hwang Comment:Cervix, Endocervix Pap, specimen adequacy Arsenio Hwang Comment: Satisfactory for evaluation. Endocervical/transformation zone component present. HPV interp Arsenio SulemaYohana Hwang Comment:Negative for intraep ithelial lesion or malignancy. COMMENTS Arsenio [employer]te [employer] wHang Comment: This Pap test has been evaluated with computer assisted technology. Hatchery Supervisor Joel marin SulemaYohana Hwang Comment: DDS, CT(ASCP) CT screening location: [place] [address] [address] [place] [address] Comment Arsenio Analyte LogicYohana Hwang Comment: EXPLANATORY NOTE: The Pap is a screening test for cervical cancer. It is not a diagnostic test and is subject to false negative and false positive results. It is most reliable when a satisfactory sample, regularly obtained, is submitted with relevant clinical findings and history, and when the Pap result is evaluated along with historic and current clinical information. Swab 11/27/2020 12:0 6 PM MACHINE ASSISTANT 11/28/2020 9:44 AM MACHINE ASSISTANT Tony Washington MD LAB CYTOLOGY ORDERABLES Fi nal Result [facility] [place] [address] [address] [place] [address] documented in this encounter Visit Diagnoses Diagnosis Well woman exam- Primary Routine general medical examination at a health care facility Encounter for screening mammogram for malignant neoplasm of breast Screening for colon cancer Special screening for malignant neoplasms, colon Encounter for screening mammogram for malignant neoplasm of breast documented in this encounter Discontinued Medications Medication Sig Discontinue Reason Start Date End Da te oxyCODONE-acetaminophen (PERCOCET) 5-325 mg per tabletIndications:Pain Take 1 tablet by mouth every 4 (four) hours as needed for pain Therapy completed 07/25/2020 11/27/2020 documented as of this encounter Care Teams Machine Spring Former Relationship Specialty Start Date End Date Laureano Lantigua MD [address] [place] [address] PCP - General Internal Medicine 07/30/18 Tony Washington MD [address] [place] [address] Product Management Specialist Obstetrics and Gynecology 11/16/18 Anahy Rosales MD [address] [place] [address] [address] [place] [address] Referring Physician Psychiatry 11/16/18 documented as of this encounter
--- OUTSIDE RECORDS SUMMARY | 2024-11-15 03:26 | XMS_ITS | Encounter Summary ---
Author Organization [facility] Address [address] [place] [address] Care Team Providers Care Licensed Weigher Name Role Phone Laureano Lantigua MD Primary Care Provider [phone] Tony Washington MD Unavailable [phone] Anahy Rosales MD Unavailable [phone] Encounter Details Date Type Department Care Team (Late st Contact Info) Description 11/22/2020 7:05 PM HOG STICKER Lab [address] [id number] Itching Social History Tobacco Use Types Packs/Day Years Used Date Smoking Tobacco: Never Smokeless Tobacco: Never Alcohol Use Standard Drinks/Week Comments Yes 0 (1 standard drink = 0.6 oz pur e alcohol) PHQ-2 Answer Date Recorded PHQ-2 Score 0 11/22/2019 Comments No Sex and Gender Information Value Date Recorded Sex Assigned at Not on file Legal Sex Female 1:37 AM HOG STICKER Gender Identity Female 10/03/2023 10:05 AM HOG STICKER Sexual Orientation Straight 10/03/2023 10 :05 AM HOG STICKER documented as of this encounter Plan of Treatment Not on file documented as of this encounter Procedures Procedure Name Priority Date/Time Associated Diagnosis Comments EGFR Routine 11/22/2020 4:11 PM HOG STICKER Itching DIFFERENTIAL AUTO Routine 11/22/2020 4:1 1 PM HOG STICKER Itching CBC WITH AUTO DIFFERENTIAL Routine 11/22/2020 4:11 PM HOG STICKER Itching COMPREHENSIVE METABOLIC PANEL Routine 11/22/2020 4:11 PM HOG STICKER Itching documented in this encounter Results * eGFR (11/22/2020 4:11 PM HOG STICKER) eGFR 94 mL/min/1.7 3 m2 D[facility]US LUCIO Comment: Interpretive Data Reference Interval Normal ?>/= 90 mL/min/1.73m2 Mildly decreased* ? 60 - 89 mL/min/1.73m2 Mildly to moderately decreased ?45 - 59 mL/min/1.73m2 Moderately to severely decreased ??30 - 44 mL/min/1.73m2 Severely decreased ?15 - 29 mL/min/1.73m2 Kidney Failure ?< 15 ??mL/min/1.73m2 *Relative to young adult level If -Latvian multiply value by 1.16. Estimated glomerular filtration rate is determined by the CKD-EPI equation recommended by the National Kidney Foundation (KDIGO 2012 Clinical Practice Guideline for the Evaluation and Management of Chronic Kidney Disease. Kidney Intnl Suppl Nov 2012;3:1). The CKD-EPI equation should not be used for patients with unstable renal function and has not been validated in children and those over 70. Current interpretive data was last reviewed 2016. Blood specimen (specimen) 11/22/2020 4:11 PM HOG STICKER 11/22/2020 8:25 PM HOG STICKER us Liane Allen [facility] LAB BLOOD ORDERABL ES Final Result [facility] [address] Department [place] [address] * Differential, auto (11/22/2020 4:11 PM HOG STICKER) Neutrophil abs 4.9 1.7 - 6.5 K/cumm [facility] Imm gran abs 0.0 0.0 - 0.1 K/cumm [facility] Lymphocyte abs 3.2 0.8 - 3.3 K/cumm [facility] Monocyte abs 0.6 0.2 - 0.8 K/cumm [facility] Eosinophil abs 0.2 0.0 - 0.5 K/cumm [facility] Basophil abs 0.1 0.0 - 0.1 K/cumm [facility] Neutrophil pct 54.6 % [facility] Comment: Interpretive Data Percent cell count reference ranges are not reported, since discordance with absolute values may lead to misinterpretation of CBC data. Current Interpretive Data was last revised on 2018. Imm gran pct 0.4 % [facility] Comment: Interpretive Data Percent cell count reference ranges are not reported, since discordance with absolute values may lead to misinterpretation of CBC data. Current Interpretive Data was last revised on 2018. Lymphocyte pct 35.2 % [facility] Comment: Interpretive Data Percent cell count reference ranges are not reported, since discordance with absolute values may lead to misinterpretation of CBC data. Current Interpretive Data was last revised on 2018. Monocyte pct 6.8 % [facility] Comment: Interpretive Data Percent cell count reference ranges are not reported, since discordance with absolute values may lead to misinterpretation of CBC data. Current Interpretive Data was last revised on 2018. Eosinophil pct 2.3 % [facility] Comment: Interpretive Data Percent cell count reference ranges are not reported, since discordance with absolute values may lead to misinterpretation of CBC data. Current Interpretive Data was last revised on 2018. Basophil pct 0.7 % [facility] Comment: Interpretive Data Percent cell count reference ranges are not reported, since discordance with absolute values may lead to misinterpretation of CBC data. Current Interpretive Data was last revised on 2018. Blood specimen (specimen) 11/22/2020 4:11 PM HOG STICKER 11/22/2020 7:08 PM HOG STICKER Liane Allen [facility] BLOOD ORDERABL ES Final Result Performing Organization Address [facility] Co de Phone Number DARIUS LUCIO [address] Department [place] [place] [address] * (ABNORMAL) CBC with auto differential (11/22/2020 4:11 PM HOG STICKER) WBC 9.0 3.8 - 9.9 K/cumm [facility] Hgb 13.6 11.9 - 15.5 g/dL [facility] Hct 42.1 35.6 - 45.5 % [facility] Plt 284 150 - 400 K/cumm [facility] MPV 12.5(H) 9.1 - 12.3 fL [facility] RBC 4.38 3.90 - 5.20 M/cumm [facility] MCV 96.1 81.3 - 96.4 fL [facility] MCH 31.1 27.1 - 33.3 pg [facility] MCHC 32.3 32.3 - 35.7 g/dL [facility] RDW CV 13.0 11.1 - 14.9 % [facility] RDW SD 46.5 35.7 - 48.1 fL [facility] NRBC abs 0.00 0.00 - 0.01 K/cumm [facility] Blood specimen (specimen) 11/22/2020 4:11 PM HOG STICKER 11/22/2020 7:08 PM HOG STICKER Liane Allen [facility] BLOOD ORDERABL ES Final Result Performing Organization Address City/[facility]/ZIP Co de Phone Number DARIUS LUCIO [address] Department [place] [address] * Comprehensive metabolic panel (11/22/2020 4:11 PM HOG STICKER) Sodium 140 135 - 145 mmol/L [facility] Potassium, pl 4.4 3.3 - 4.9 mmol/L [facility] Chloride 104 97 - 110 mmol/L [facility] CO2 23 22 - 32 mmol/L [facility] Anion gap 13 2 - 15 mmol/L [facility] BUN 13 8 - 25 mg/dL [facility] Creatinine 0.75 0.60 - 1.10 mg/dL [facility] Glucose 104 70 - 199 mg/dL [facility] Comment: [...] - 1.2 mg/dL [facility] Protein, pl 7.1 6.5 - 8.5 g/dL [facility] Albumin 4.1 3.5 - 5.0 g/dL [facility] Alk phos 97 40 - 130 Units/L [facility] ALT 30 7 - 45 Units/L [facility] AST 22 10 - 45 Units/L [facility] Blood specimen (specimen) 11/22/2020 4:11 PM HOG STICKER 11/22/2020 7:08 PM HOG STICKER Liane Allen [facility] BLOOD ORDERABL ES Final Result [facility] [address] Department [place] [address] documented in this encounter Visit Diagnoses Diagnosis Itching Unspecified pruritic disorder documented in this encounter Care Teams Licensed Weigher Relationship Specialty Start Date End Date Laureano Lantigua MD [address] [place] [address] PCP - General Internal Medicine 07/30/18 Tony Washington MD [address] [facility] [address] [place] [address] Job Superintendent Obstetrics and Gynecology 11/16/18 Anahy Rosales MD [address] [facility] [address] [place] [address] Referring Physician Psychiatry 11/16/18 documented as of this encounter
--- OUTSIDE RECORDS SUMMARY | 2024-11-15 03:26 | XMS_ITS | Encounter Summary ---
Author Organization [facility] Address [address] [address] Care Team Providers Care Distiller Name Role Phone Laureano Lantigua MD Primary Care Provider + [phone] Tony Washington MD Unavailable [phone] Anahy Rosales MD Unavailable [phone] Encounter Details Date Type Department Care Team (Late st Contact Info) Description 11/22/2019 Telephone [facility] [address] [place] [id number] Laureano Lantigua MD [address] [address] Social History Tobacco Use Types Packs/Day Years Used Date Smoking Tobacco: Never Smokeless Tobacco: Never Alcohol Use Standard Drinks/Week Comments Yes 0 (1 standard drink = 0.6 oz pur e alcohol) PHQ-2 Answer Date Recorded PHQ-2 Score 0 11/22/2019 Comments No Sex and Gender Information Value Date Recorded Sex Assigned at Not on file Legal Sex Female 1:37 AM CHIEF MAINTENANCE SUPERVISOR Gender Identity Female 10/03/2023 10:05 AM CHIEF MAINTENANCE SUPERVISOR Sexual Orientation Straight 10/03/2023 10 :05 AM CHIEF MAINTENANCE SUPERVISOR COVID-19 Exposure Response Date Recorded In the last month, have you been in contact with someone who was confirmed or suspected to have Coronavirus / COVID-19? No / Unsure 02/07/2020 2:44 PM CDT documented as of this encounter Ordered Prescriptions Prescription Sig Dispense Quantity Refills Last Filled Start Date End Date carisoprodol (SOMA) 350 mg tabletIndications: Muscle Spasm Take 1 tablet (350 mg total) by mouth nightly as needed for muscle spasms 15 tablet 11/22/2019 1 documented in this encounter Miscellaneous Notes * Addendum Note - Flor Bautista - 08/04/2020 8:04 AM CDTAddended by: FLOR BAUTISTA on: 08/04/2020 08:04 AM Modules accepted: Orders * Addendum Note - Flor Bautista - 08/04/2020 8:03 AM CDTAddended by: FLOR BAUTISTA on: 08/04/2020 08:03 AM Modules accepted: Orders * Addendum Note - Flor Bautista - 08/04/2020 8:03 AM CDTAddended by: FLOR BAUTISTA on: 08/04/2020 08:03 AM Modules accepted: Orders * Telephone Encounter - Maddison Willams RN - 11/22/2019 5:03 PM CHIEF MAINTENANCE SUPERVISOR Labs ordered/printed and faxed. Pt called and informed of RX for soma and lab orders. Rx for: carisoprodol (SOMA) 350 mg tablet 350 mg, oral, Nightly PRN Summary: Take 1 tablet (350 mg total) by mouth nightly as needed for muscle spasms, Starting 11/22/2019, Print Dose, Frequency: 350 mg, Nightly PRN Start: 11/22/2019 Ord/Sold: 11/22/2019 (O) Report Long-term: Pharmacy: [facility] - [place], [place] - [address] [facility] Med Dose History Patient Sig: Take 1 tablet (350 mg total) by mouth nightly as needed for muscle spasms Ordered on: 11/22/2019 Authorized by: LAUREANO LANTIGUA Dispense: 15 tablet Refills: 0 ordered CBC with auto differential ??Future, Expected: 11/22/2019, Expires: 11/22/2020, Routine, Lab Collect, Specimen Types - Blood;, Resulting Agency - [facility], New collection Comprehensive metabolic panel ??Future, Expected: 11/22/2019, Expires: 11/22/2020, Routine, Lab Collect, Specimen Types - Blood;, Resulting Agency - [facility], New collection collection Lipid panel ??Future, Expected: 11/22/2019, Expires: 11/22/2020, Routine, Lab Collect, Specimen Types - Blood;, Resulting Agency - [facility], New collection F MAINTENANCE SUPERVISOR * Telephone Encounter - Laureano Lantigua MD - 11/22/2019 3:37 PM CHIEF MAINTENANCE SUPERVISOR Cbc/cmp/flp F MAINTENANCE SUPERVISOR * Telephone Encounter - Caorl Frank - 11/22/2019 3:25 PM CST Does patient need any labs? Please fax to patient [phone] ([facility]) F MAINTENANCE SUPERVISOR * Telephone Encounter - Carol Frank - 11/22/2019 3:22 PM CST Have nurses call in soma 350 mg po qday prn #[address] Lantigua See AVS F MAINTENANCE SUPERVISOR documented in this encounter Plan of Treatment Not on file documented as of this encounter Procedures Procedure Name Priority Date/Time Associated Diagnosis Comments CBC WITH AUTO DIFFERENTIAL Routine 08/04/2020 8:04 AM CDT Moderate asthma, unspecified whether complicated, unspecified whether persistent Osteoarthritis of spine, unspecified spinal osteoarthritis complication status, unspecified spinal region LIPID PANEL Routine 08/04/2020 8:04 AM CDT Moderate asthma, unspecified whether complicated, unspecified whether persistent Osteoarthritis of spine, unspecified spinal osteoarthritis complication status, unspecified spinal region COMPREHENSIVE METABOLIC PANEL Routine 08/04/2020 8:04 AM CDT Moderate asthma, unspecified whether complicated, unspecified whether persistent Osteoarthritis of spine, unspecified spinal osteoarthritis complication status, unspecified spinal region documented in this encounter Results * (ABNORMAL) Lipid panel (08/04/2020 8:04 AM CDT) Cholesterol 171 <200 mg/dL [facility] HDL 51 > OR = 50 mg/dL [facility] Triglycerides 74 <150 mg/dL [facility] LDL 104(H) mg/dL (calc) [facility] Comment: Reference range: <100 Desirable range <100 mg/dL for primary prevention; ?? <70 mg/dL for patients with CHD or diabetic patients with > or = 2 CHD risk factors. LDL-C is now calculated using the Hayden-Brian calculation, which is a validated novel method providing better accuracy than the Friedewald equation in the estimation of LDL-C. Hayden SS et al. UYEN. 2013;310(19): 4316-0512 (http://education.WeOrder LTD/faq/VRC609) Chol/HDL ratio 3.4 <5.0 (calc) Ar[facility] Non-HDL, (LDL+VLDL) 120 <130 mg/dL (calc) [facility] Comment: For patients with diabetes plus 1 major ASCVD risk factor, treating to a non-HDL-C goal of <100 mg/dL (LDL-C of <70 mg/dL) is considered a therapeutic option. Blood specimen (specimen) 08/04/2020 8:04 AM CDT 08/04/2020 7:01 PM CDT Laureano Lantigua MD LAB BLOOD ORDERABLES Final Result [facility] [address] [place] [address] * (ABNORMAL) Comprehensive metabolic panel (08/04/2020 8:04 AM CDT) Glucose 83 65 - 99 mg/dL [facility] Comment: ? Fasting reference interval BUN 17 7 - 25 mg/dL [facility] Creatinine 0.91 0.50 - 1.10 mg/dL [facility] eGFR NON-AFR. ERITREAN 74 > OR = 60 mL/min/1. 73m2 [facility] EGFR 86 > OR = 60 mL/min/1. 73m2 [facility] BUN/creat ratio NOT APPLICABLE 6 - 22 (calc) [facility] Sodium 137 135 - 146 mmol/L [facility] Potassium, pl 4.5 3.5 - 5.3 mmol/L [facility] Chloride 105 98 - 110 mmol/L [facility] CO2 22 20 - 32 mmol/L [facility] Calcium 9.0 8.6 - 10.2 mg/dL [facility] Protein, sr 7.0 6.1 - 8.1 g/dL [facility] Albumin 4.4 3.6 - 5.1 g/dL [facility] GLOBULIN 2.6 1.9 - 3.7 g/dL (calc) [facility] Alb/glob ratio 1.7 1.0 - 2.5 (calc) [facility] Bilirubin, total 1.5(H) 0.2 - 1.2 mg/dL [facility] Alk phos 64 31 - 125 U/L [facility] AST 17 10 - 35 U/L [facility] ALT (SGPT) 14 6 - 29 U/L [facility] Blood specimen (specimen) 08/04/2020 8:04 AM CDT 08/04/2020 7:00 PM CDT us Laureano Lantigua MD LAB BLOOD ORDERABLES Final Result [facility] [address] [place] [address] * CBC with auto differential (08/04/2020 8:04 AM CDT) WBC 6.8 3.8 - 10.8 Thousand/u L [facility] RBC, POC 4.30 3.80 - 5.10 Million/uL [facility] Hgb 13.2 11.7 - 15.5 g/dL [facility] Hct 40.1 35.0 - 45.0 % [facility] MCV 93.3 80.0 - 100.[address] [facility] MCH 30.7 27.0 - 33.0 pg [facility] MCHC 32.9 32.0 - 36.0 g/dL [facility] Rdw 12.5 11.0 - 15.0 % [facility] Platelets 231 140 - 400 Thousand/u L [facility] MPV 11.9 7.5 - 12.5 fL [facility] Neutrophils, abs 3,570 1,500 - 7,800 cells/uL [facility] Lymphocytes, abs 2,509 850 - 3,900 cells/uL [facility] Monocyte abs 592 200 - 950 cells/uL [facility] Eosinophils, abs 102 15 - 500 cells/uL [facility] Basophils, abs 27 0 - 200 cells/uL [facility] Neutrophils 52.5 % [facility] Lymphocyte pct 36.9 % [facility] Monocytes 8.7 % [facility] Eosinophils 1.5 % [facility] Basophils 0.4 % [facility] Blood specimen (specimen) 08/04/2020 8:04 AM CDT 08/04/2020 6:59 PM CDT us Laureano Lantigua MD LAB BLOOD ORDERABLES Final Result [facility] [address] [place] [address] documented in this encounter Visit Diagnoses Diagnosis Moderate asthma, unspecified whether complicated, unspecified whether persistent- Primary Osteoarthritis of spine, unspecified spinal osteoarthritis complication status, unspecified spinal region documented in this encounter Discontinued Medications Medication Sig Discontinue Reason Start Date End Da te carisoprodol (SOMA) 350 mg tablet Take 1 tablet (350 mg total) by mouth 3 (three) times a day as needed for muscle spasms. 11/16/2018 11/22/2019 documented as of this encounter Care Teams Distiller Relationship Specialty Start Date End Date Laureano Lantigua MD [address] [place] [address] PCP - General Internal Medicine 07/30/18 Tony Washington MD [address] [address] Molder Pipe Covering Obstetrics and Gynecology 11/16/18 Anahy Rosales MD [address] [place] [address] [place] [address] Referring Physician Psychiatry 11/16/18 documented as of this encounter
--- OUTSIDE RECORDS SUMMARY | 2024-11-15 03:26 | XMS_ITS | Encounter Summary ---
Author Organization [facility] Address [address] [facility] [address] [facility] [address] [place] [address] Care Team Providers Care Repairer Shoe Sticks Name Role Phone Laureano Lantigua MD Primary Care Provider Tony Washington MD Unavailable Anahy Rosales MD Unavailable [phone] Encounter Details Date Type Department Care Team (Late st Contact Info) Description 02/07/2020 Orders Only [facility] [address] [place] [address] [address] [place] [id number] Tony Washington MD [address] [place] [address] [address] [place], [place] [id number] Social History Tobacco Use Types Packs/Day Years Used Date Smoking Tobacco: Never Smokeless Tobacco: Never Alcohol Use Standard Drinks/Week Comments Yes 0 (1 standard drink = 0.6 oz pur e alcohol) PHQ-2 Answer Date Recorded PHQ-2 Score 0 11/22/2019 Comments No Sex and Gender Information Value Date Recorded Sex Assigned at Not on file Legal Sex Female 1:37 AM ACID CHANGER Gender Identity Female 10/03/2023 10:05 AM ACID CHANGER Sexual Orientation Straight 10/03/2023 10 :05 AM ACID CHANGER COVID-19 Exposure Response Date Recorded In the last month, have you been in contact with someone who was confirmed or suspected to have Coronavirus / COVID-19? No / Unsure 02/07/2020 2:44 PM CDT documented as of this encounter Miscellaneous Notes * Result Encounter Note - Tony Washington MD - 02/11/2020 6:06 PM CDT Please call patient with results. Benign EMB. Can proceed with ablation when restrictions lifted. documented in this encounter Plan of Treatment Not on file documented as of this encounter Procedures Procedure Name Priority Date/Time Associated Diagnosis Comments TISSUE PATHOLOGY Routine 02/07/2020 12:0 0 AM CDT documented in this encounter Results * Surgical pathology tissue exam request - other pathology (02/07/2020 12:00 AM CDT) PATHOLOGIST [facility] [place] Comment: Edward Aiken M.D., Board Certified in Anatomic and Clinical Pathology. (electronic signature) A source [facility] [place] Comment:Endometrium (Biopsy) A Gross description [facility] [place] Comment: Specimen is received in formalin, labeled with multiple patient identifier(s) and consists of multiple fragments of soft tissue aggregating to 3.0 x 2.0 x 0.3 cm, irregular in shape and coon-brown in color. The specimen is entirely submitted in one cassette. Site is not given on container. ??Gross exam(s) performed at: [facility] ??[address] [facility] [address] ??Scrap Breaker: SAMAN HARPER MD A diagnosis [facility] [place] Comment: Benign proliferative phase endometrium with focal disordered proliferative pattern. ?? No features diagnostic of hyperplasia or malignancy. 02/07/2020 02/07/2020 10: 27 PM CDT Narrative [facility] - 02/09/2020 5:13 PM CDT FASTING: UNKNOWN Resulting Agency Comment Performing Organization Information: ?Site ID: [id number] ?Name: [facility] ?Address: [address] [place] [id number] ?Director: Saman Harper Tony Washington MD LAB PATHOLOGY ORDERABLES F inal Result [facility] [place] documented in this encounter Visit Diagnoses Not on filedocumented in this encounter Care Teams Repairer Shoe Sticks Relationship Specialty Start Date End Date Laureano Lantigua MD [address] [place] [address] PCP - General Internal Medicine 07/30/18 Tony Washington MD [address] [place] [address] [address] [place] [address] Prop Drawer Obstetrics and Gynecology 11/16/18 Anahy Rosales MD [address] [facility] [address] [place] [address] Referring Physician Psychiatry 11/16/18 documented as of this encounter
--- OUTSIDE RECORDS SUMMARY | 2024-11-15 03:26 | XMS_ITS | Encounter Summary ---
Author Organization [facility] Address [address] [place] [address] Phone Care Team Providers Care Panel Lay Up Worker Name Role Phone Laureano Lantigua MD Primary Care Provider Tony Washington MD Unavailable [phone] Anahy Rosales MD Unavailable [phone] Nathalia Rodas PT Unavailable Unavailable Encounter Details Date Type Department Care Team (Late st Contact Info) Description 10/11/2020 Orders Only [facility] [address] [place] [address] Scanning, Provider Social History Tobacco Use Types Packs/Day Years Used Date Smoking Tobacco: Never Smokeless Tobacco: Never Alcohol Use Standard Drinks/Week Comments Yes 0 (1 standard drink = 0.6 oz pur e alcohol) PHQ-2 Answer Date Recorded PHQ-2 Score 0 11/22/2019 Comments No Sex and Gender Information Value Date Recorded Sex Assigned at Not on file Legal Sex Female 1:37 AM EXPERIENCE SPECIALIST Gender Identity Female 10/03/2023 10:05 AM EXPERIENCE SPECIALIST Sexual Orientation Straight 10/03/2023 10 :05 AM EXPERIENCE SPECIALIST documented as of this encounter Plan of Treatment Not on file documented as of this encounter Procedures Procedure Name Priority Date/Time Associated Diagnosis Comments SCAN - LABS 10/11/2020 documented in this encounter Results * SCAN - LABS (10/11/2020) us Provider Scanning Final Result documented in this encounter Visit Diagnoses Not on filedocumented in this encounter Care Teams Panel Lay Up Worker Relationship Specialty Start Date End Date Laureano Lantigua MD [address] [place] [address] PCP - General Internal Medicine 07/30/18 Tony Washington MD [address] [facility] [address] [place] [address] Manager Diabetes Obstetrics and Gynecology 11/16/18 Anahy Rosales MD [address] [facility] [address] [place] [address] Referring Physician Psychiatry 11/16/18 Nathalia Rodas, PT Physical Therapist Physical Therapy 02/14/23 documented as of this encounter
--- OUTSIDE RECORDS SUMMARY | 2024-11-15 03:26 | XMS_ITS | Encounter Summary ---
Author Organization [facility] Address [address] [address] Care Team Providers Care Concrete Placement Equipment Operator Name Role Phone Laureano Lantigua MD Primary Care Provider [phone] Tony Washington MD Unavailable [phone] Anahy Rosales MD Unavailable [phone] Reason for Visit * Reason Comments swollen palms and itchy Encounter Details Date Type Department Care Team (Latest Contact Info) Description 11/22/2020 3:30 PM HISTORIOGRAPHY TEACHER Office Visit [facility] [address] [place] [address] Liane Allen NP [address] [place] [address] Itching (Primary Dx) Social History Tobacco Use Types Packs/Day Years Used Date Smoking Tobacco: Never Smokeless Tobacco: Never Tobacco Cessation:Counseling Given: Yes Alcohol Use Standard Drinks/Week Comments Yes 0 (1 standard drink = 0.6 oz pur e alcohol) PHQ-2 Answer Date Recorded PHQ-2 Score 0 11/22/2019 Comments No Sex and Gender Information Value Date Recorded Sex Assigned at Not on file Legal Sex Female 1:37 AM HISTORIOGRAPHY TEACHER Gender Identity Female 10/03/2023 10:05 AM HISTORIOGRAPHY TEACHER Sexual Orientation Straight 10/03/2023 10 :05 AM HISTORIOGRAPHY TEACHER documented as of this encounter Last Filed Vital Signs Vital Sign Reading Time Taken Comments Blood Pressure 130/80 11/22/2020 3:37 PM HISTORIOGRAPHY TEACHER Pulse 76 11/22/2020 3:37 PM HISTORIOGRAPHY TEACHER Temperature 36.1 ??C (96.9 ??F) 11/22/2020 3:37 PM CS T Respiratory Rate 18 11/22/2020 3:37 PM HISTORIOGRAPHY TEACHER Oxygen Saturation 100% 11/22/2020 3:37 PM HISTORIOGRAPHY TEACHER Inhaled Oxygen Concentration - - Weight 95.8 kg (211 lb 3.2 oz) 11/22/2020 3:37 P M HISTORIOGRAPHY TEACHER Height 182.9 cm (6') 11/22/2020 3:37 PM HISTORIOGRAPHY TEACHER Body Mass Index 28.64 11/22/2020 3:37 PM HISTORIOGRAPHY TEACHER documented in this encounter Patient Instructions * Patient Instructions* Liane Allen NP - 11/22/2020 3:30 PM HISTORIOGRAPHY TEACHER Instructions to front desk coordinator Please do CBC and CMP for itching Instructions to patient Please complete steroids as prescribed You can take hydroxyzine instead of benadyrl for itching Can use lidocaine patches You can wear cotton gloves at night to prevent itching Please call to schedule follow up next week if persistent ORIOGRAPHY TEACHER documented in this encounter Ordered Prescriptions Prescription Sig Dispense Quantity Refills Last Filled Start Date End Date hydrOXYzine (VISTARIL) 25 mg capsuleIndications :Itching Take 1 capsule (25 mg total) by mouth 3 (three) times a day as needed for itching for up to 15 days 30 capsule 11/22/2020 1 methylPREDNISolone (MEDROL DOSEPACK) 4 mg DosepackIndication s:Itching Take as directed on package. 21 tablet 11/22/2020 1 documented in this encounter Progress Notes * Liane Allen NP - 11/22/2020 3:30 PM CST Subjective/Objective Patient ID: Finesse Ramirez is a 50 y.o. female. Chief Complaint swollen palms and itchy HPI Brian afternoon left palm started itching and thought it was dry skin Since Friday has worsen and now hands have begun to swell There is burning She tried benadryl, ice packs, hydrocortisone and Eucerin and itching Review of Systems Constitutional: Negative for chills and fever. Respiratory: Negative for chest tightness and shortness of breath. Cardiovascular: Negative for chest pain and palpitations. Neurological: Negative for dizziness and light-headedness. Physical Exam Vitals signs and nursing note reviewed. Constitutional: Appearance: Normal appearance. HENT: Head: Normocephalic and atraumatic. Right Ear: Tympanic membrane, ear canal and external ear normal. Left Ear: Tympanic membrane, ear canal and external ear normal. Nose: Nose normal. Mouth/Throat: Mouth: Mucous membranes are moist. Cardiovascular: Rate and Rhythm: Normal rate and regular rhythm. Heart sounds: Normal heart sounds. Pulmonary: Effort: Pulmonary effort is normal. Breath sounds: Normal breath sounds. Abdominal: General: Bowel sounds are normal. Palpations: Abdomen is soft. Skin: General: Skin is warm. Findings: Erythema (bilateral palms with swelling and warmth ) present. Neurological: Mental Status: She is alert and oriented to person, place, and time. Psychiatric: Mood and Affect: Mood normal. Behavior: Behavior normal. Assessment/Plan Diagnoses and all orders for this visit: Itching (L29.9) (Primary) Assessment & Plan: Patient is reporting intense itching that occurred beginning on Friday. She does have some palmar erythema and swelling bilaterally. Etiology is uncertain at this time. Unclear if this is d/t an allergen vs viral in nature. She was seen with Dr. Espino who at this time, recommending labs to lookfor elevated eosinophils or other possible sources. We will treat with steroids and vistaril given intense itching. She will return next week or sooner if needed if symptoms worsen or persist. Orders: - methylPREDNISolone (MEDROL DOSEPACK) 4 mg Dosepack; Take as directed on package. - hydrOXYzine (VISTARIL) 25 mg capsule; Take 1 capsule (25 mg total) by mouth 3 (three) times a dayas needed for itching for up to 15 days - CBC with auto differential; Future - Comprehensive metabolic panel; Future Cosigned by Laureano Lantigua MD at 11/24/2020 11:49 AM HISTORIOGRAPHY TEACHER ORIOGRAPHY TEACHER ORIOGRAPHY TEACHER documented in this encounter Miscellaneous Notes * Assessment & Plan Note - Liane Allen NP - 11/23/2020 7:56 AM HISTORIOGRAPHY TEACHER Associated Problem(s): Itching (Deleted) Patient is reporting intense itching that occurred beginning on Friday. She does have some palmar erythema and swelling bilaterally. Etiology is uncertain at this time. Unclear if this is d/t an allergen vs viral in nature. She was seen with Dr. Espino who at this time, recommending labs to lookfor elevated eosinophils or other possible sources. We will treat with steroids and vistaril given intense itching. She will return next week or sooner if needed if symptoms worsen or persist. ORIOGRAPHY TEACHER documented in this encounter Plan of Treatment Not on file documented as of this encounter Results * Comprehensive metabolic panel (11/22/2020 4:11 PM HISTORIOGRAPHY TEACHER) Sodium 140 135 - 145 mmol/L [facility] [...] CH Blood specimen (specimen) 11/22/2020 4:11 PM HISTORIOGRAPHY TEACHER 11/22/2020 7:08 PM HISTORIOGRAPHY TEACHER Liane Allen IP NETWORK ARCHITECT LAB BLOOD ORDERABL ES Final Result [facility] [address] Department of Laboratories [place], [place] [id number] * (ABNORMAL) CBC with auto differential (11/22/2020 4:11 PM HISTORIOGRAPHY TEACHER) WBC 9.0 3.8 - 9.9 K/cumm [facility] [...] CH Blood specimen (specimen) 11/22/2020 4:11 PM HISTORIOGRAPHY TEACHER 11/22/2020 7:08 PM HISTORIOGRAPHY TEACHER Liane Allen IP NETWORK ARCHITECT LAB BLOOD ORDERABL ES Final Result [facility] [address] [place] [address] documented in this encounter Visit Diagnoses Diagnosis Itching- Primary Unspecified pruritic disorder documented in this encounter Care Teams Concrete Placement Equipment Operator Relationship Specialty Start Date End Date Laureano Lantigua MD [address] [place] [address] PCP - General Internal Medicine 07/30/18 Tony Washington MD [address] [facility] [place] [address] Veneer Cutter Obstetrics and Gynecology 11/16/18 Anahy Rosales MD [address] [facility] [place] [address] Referring Physician Psychiatry 11/16/18 documented as of this encounter
--- OUTSIDE RECORDS SUMMARY | 2024-11-15 03:26 | XMS_ITS | Encounter Summary ---
Author Organization [facility] Medical Group Address [address] [address] Care Team Providers Care Lead Pharmacy Technician Name Role Phone Laureano Lantigua MD Primary Care Provider +- [phone] Tony Washington MD Unavailable [phone] Anahy Rosales MD Unavailable [phone] Encounter Details Date Type Department Care Team (Late st Contact Info) Description 01/01/2021 Telephone [facility] [address] [place] [phone] Neftali Chavez, RN Social History Tobacco Use Types Packs/Day Years Used Date Smoking Tobacco: Never Smokeless Tobacco: Never Alcohol Use Standard Drinks/Week Comments Yes 0 (1 standard drink = 0.6 oz pur e alcohol) PHQ-2 Answer Date Recorded PHQ-2 Score 0 11/22/2019 Comments No Sex and Gender Information Value Date Recorded Sex Assigned at Not on file Legal Sex Female 1:37 AM MARINE ELECTRICIAN Gender Identity Female 10/03/2023 10:05 AM MARINE ELECTRICIAN Sexual Orientation Straight 10/03/2023 10 :05 AM MARINE ELECTRICIAN documented as of this encounter Miscellaneous Notes * Telephone Encounter - Kristy Clancy - 01/02/2021 1:40 PM CST Pt picked up script at front desk receptionist. NE ELECTRICIAN * Telephone Encounter - Lynne Hoffmann LPN - 01/02/2021 11:27 AM MARINE ELECTRICIAN Rx written for Percocet 5/325mg take 1 tablet po every 8 hours as needed for low back pain #45. Copy sent to scanning. Informed pt [phone] that the Soma was sent to [facility] yesterday, 01/01/21. Informed pt that the Percocet Rx could not be sent to [facility] yesterday and that she will have to come pickle maker the written Rx and take it to the pharmacy. Pt voiced understanding and states her son hasa dental appointment at 130pm today and she will come pickle maker the Rx when she is out. I did inform pt that our office is supposed to be closing around 3pm today due to the weather. Pt did voice understanding and will try to pickle maker the Rx before 3pm today. Rx placed in cabinet at [facility] front desk receptionist forpt to pickle maker. NE ELECTRICIAN * Telephone Encounter - Laureano Lantigua MD - 01/02/2021 8:31 AM MARINE ELECTRICIAN Ok to write it NE ELECTRICIAN * Telephone Encounter - Neftali Chavez RN - 01/01/2021 11:26 AM MARINE ELECTRICIAN Percocet Rx unable to be called in per [facility] Please ERx or will have to write out on Rx pad et have pt p/u Rx NE ELECTRICIAN documented in this encounter Plan of Treatment Not on file documented as of this encounter Visit Diagnoses Not on filedocumented in this encounter Care Teams Lead Pharmacy Technician Relationship Specialty Start Date End Date Laureano Lantigua MD [address] [place] [address] PCP - General Internal Medicine 07/30/18 Tony Washington MD [address] [place] [address] [address] [facility] [place] [address] Property Management Coordinator Obstetrics and Gynecology 11/16/18 Anahy Rosales MD [address] [place] [address] [address] [place] [address] [address] Referring Physician Psychiatry 11/16/18 documented as of this encounter
--- OUTSIDE RECORDS SUMMARY | 2024-11-15 03:26 | XMS_ITS | Encounter Summary ---
Author Organization [facility] Medical Group Address [address] [address] Care Team Providers Care Frame Hand Name Role Phone Laureano Lantigua MD Primary Care Provider + [phone] Tony Washington MD Unavailable [phone] Anahy Rosales MD Unavailable [phone] Encounter Details Date Type Department Care Team (Late st Contact Info) Description 07/26/2020 Telephone [facility] [address] [place] [address] Laureano Lantigua MD [address] [address] Social History Tobacco Use Types Packs/Day Years Used Date Smoking Tobacco: Never Smokeless Tobacco: Never Alcohol Use Standard Drinks/Week Comments Yes 0 (1 standard drink = 0.6 oz pur e alcohol) PHQ-2 Answer Date Recorded PHQ-2 Score 0 11/22/2019 Comments No Sex and Gender Information Value Date Recorded Sex Assigned at Not on file Legal Sex Female 1:37 AM CONSTRUCTION FIELD ENGINEER Gender Identity Female 10/03/2023 10:05 AM CONSTRUCTION FIELD ENGINEER Sexual Orientation Straight 10/03/2023 10 :05 AM CONSTRUCTION FIELD ENGINEER documented as of this encounter Miscellaneous Notes * Telephone Encounter - Kristy Clancy - 07/26/2020 11:22 AM CDT Referral entered internally for Dr. shin office. * Telephone Encounter - Laureano Lantigua MD - 07/26/2020 10:30 AM CDT THAT'S FINE * Telephone Encounter - Vandana Cavazos RN - 07/26/2020 10:15 AM CDT Time: 07/25 2158 Comment: Spoke with Dr Edward Laird who agrees to see patient tomorrow. He recommends putting her on crutches and placing a bulky dressing. Further recommends removing the toenail. By: Juan José Merchant TOTQ:looks like pt is seeing dr laird today at 11 Pt called back and states that she does not need anything from us now she will call us back with any questions or problems She wanted a referral to see dr latif for her colon problem TOADM:colonscopy please send a referral to dr latif Diagnosis diarrhea * Telephone Encounter - Laureano Lantigua MD - 07/26/2020 8:54 AM CDT Looks like she was in the er for a broken foot Does she need to be referred ??? documented in this encounter Plan of Treatment Not on file documented as of this encounter Visit Diagnoses Diagnosis Diarrhea, unspecified type- Primary documented in this encounter Care Teams Frame Hand Relationship Specialty Start Date End Date Laureano Lantigua MD [address] [place] [address] PCP - General Internal Medicine 9/13/18 Tony Washington MD [address] [place] [address] [place] [address] Production Boring Machine Operator Obstetrics and Gynecology 11/16/18 Anahy Rosales MD [address] [place] [address] [address] [place] [address] Referring Physician Psychiatry 11/16/18 documented as of this encounter
--- OUTSIDE RECORDS SUMMARY | 2024-11-15 03:26 | XMS_ITS | Encounter Summary ---
Author Organization [facility] Care Team Providers Care Sex Crimes Detective Name Role Phone Laureano Lantigua MD Primary Care Provider + [phone] Tony Washington MD Unavailable [phone] Anahy Rosales MD Unavailable [phone] Encounter Details Date Type Department Care Team (Latest Contact Info) Description 11/22/2019 Travel Social History Tobacco Use Types Packs/Day Years Used Date Smoking Tobacco: Never Smokeless Tobacco: Never Alcohol Use Standard Drinks/Week Comments Yes 0 (1 standard drink = 0.6 oz pur e alcohol) PHQ-2 Answer Date Recorded PHQ-2 Score 0 11/22/2019 Comments No Sex and Gender Information Value Date Recorded Sex Assigned at Not on file Legal Sex Female 1:37 AM SENIOR JAVA DEVELOPER Gender Identity Female 10/03/2023 10:05 AM SENIOR JAVA DEVELOPER Sexual Orientation Straight 10/03/2023 10 :05 AM SENIOR JAVA DEVELOPER documented as of this encounter Plan of Treatment Not on file documented as of this encounter Visit Diagnoses Not on filedocumented in this encounter Care Teams Sex Crimes Detective Relationship Specialty Start Date End Date Laureano Lantigua MD [address] [place] [address] PCP - General Internal Medicine 07/30/18 Tony Washington MD [address] [place] [address] [address] [address] Machine Cloth Trimmer Obstetrics and Gynecology 11/16/18 Anahy Rosales MD [address] [place] [address] [address] [place] [address] Referring Physician Psychiatry 11/16/18 documented as of this encounter
--- OUTSIDE RECORDS SUMMARY | 2024-11-15 03:26 | XMS_ITS | Encounter Summary ---
Author Organization [facility] Medical [facility] Address [address] [facility] [address] [place] [address] Care Team Providers Care Assembly Stock Supervisor Name Role Phone Laureano Lantigua MD Primary Care Provider Tony Washington MD Unavailable Anahy Rosales MD Unavailable [phone] Encounter Details Date Type Department Care Team (Late st Contact Info) Description 12/13/2019 Telephone [facility] [address] [facility] [address] [place] [address] Tony Washington MD [address] [place] [address] [address] [place], [place] [id number] Social History Tobacco Use Types Packs/Day Years Used Date Smoking Tobacco: Never Smokeless Tobacco: Never Alcohol Use Standard Drinks/Week Comments Yes 0 (1 standard drink = 0.6 oz pur e alcohol) PHQ-2 Answer Date Recorded PHQ-2 Score 0 11/22/2019 Comments No Sex and Gender Information Value Date Recorded Sex Assigned at Not on file Legal Sex Female 1:37 AM BONDING SUPERVISOR Gender Identity Female 10/03/2023 10:05 AM BONDING SUPERVISOR Sexual Orientation Straight 10/03/2023 10 :05 AM BONDING SUPERVISOR documented as of this encounter Ordered Prescriptions Prescription Sig Dispense Quantity Refills Last Filled Start Date End Date miSOPROStol (CYTOTEC) 200 mcg tablet Insert 1 tablet vaginally at HS on 12-27-19. 1 tablet 12/14/2019 0 documented in this encounter Miscellaneous Notes * Telephone Encounter - Rose Barriga RN - 12/14/2019 9:59 AM BONDING SUPERVISOR Pt called back. Pt aware of all. She does desire an ablation. Pt scheduled for an EMB on 12-28-19. Cytotec erx'ed. Pt states her period came a week early this month. She started on 11-30-19, bled heavyon the , 15, 16 and 17, stopped on the . ING SUPERVISOR * Telephone Encounter - Rose Barriga RN - 12/14/2019 9:08 AM BONDING SUPERVISOR LMOM for pt to call office. ING SUPERVISOR * Telephone Encounter - Tony Washington MD - 12/13/2019 5:32 PM BONDING SUPERVISOR Pelvic sono was normal but EMC was prominent at 16 mm one week after finishing cycle. If desires endometrial ablation, need to do an EMB. Alternatives include the new progestin only OC, Slynd (no estrogen) or progestin IUD. ING SUPERVISOR documented in this encounter Plan of Treatment Not on file documented as of this encounter Visit Diagnoses Not on filedocumented in this encounter Care Teams Assembly Stock Supervisor Relationship Specialty Start Date End Date Laureano Lantigua MD [address] [place] [address] PCP - General Internal Medicine 07/30/18 Tony Washington MD [address] [facility] [address] Brine Plant Operator Obstetrics and Gynecology 11/16/18 Anahy Rosales MD [address] [place] [address] [place] [address] Referring Physician Psychiatry 11/16/18 documented as of this encounter
--- OUTSIDE RECORDS SUMMARY | 2024-11-15 03:26 | XMS_ITS | Encounter Summary ---
Author Organization [facility] Medical [facility] Address [address] [address] Care Team Providers Care Export Sales Assistant Name Role Phone Laureano Lantigua MD Primary Care Provider [phone] Tony Washington MD Unavailable [phone] Anahy Rosales MD Unavailable Encounter Details Date Type Department Care Team (Late st Contact Info) Description 08/04/2020 9:20 AM CDT [facility] [address] [place] [id number] Osteoarthritis of cervical spine, unspecified spinal osteoarthritis complication status Social History Tobacco Use Types Packs/Day Years Used Date Smoking Tobacco: Never Smokeless Tobacco: Never Alcohol Use Standard Drinks/Week Comments Yes 0 (1 standard drink = 0.6 oz pur e alcohol) PHQ-2 Answer Date Recorded PHQ-2 Score 0 11/22/2019 Comments No Sex and Gender Information Value Date Recorded Sex Assigned at Not on file Legal Sex Female 1:37 AM PROTOTYPE MACHINE OPERATOR Gender Identity Female 10/03/2023 10:05 AM PROTOTYPE MACHINE OPERATOR Sexual Orientation Straight 10/03/2023 10 :05 AM PROTOTYPE MACHINE OPERATOR documented as of this encounter Plan of Treatment Not on file documented as of this encounter Visit Diagnoses Diagnosis Osteoarthritis of cervical spine, unspecified spinal osteoarthritis complication status documented in this encounter Care Teams Export Sales Assistant Relationship Specialty Start Date End Date Laureano Lantigua MD [address] [place] [address] PCP - General Internal Medicine 07/30/18 Tony Washington MD [address] [facility] [address] [place] [address] Customer Support Advisor Obstetrics and Gynecology 11/16/18 Anahy Rosales MD [address] [facility] [address] [place] [address] Referring Physician Psychiatry 11/16/18 documented as of this encounter
--- OUTSIDE RECORDS SUMMARY | 2024-11-15 03:27 | XMS_ITS | Encounter Summary ---
Author Organization [facility] Medical Group Address [address] [facility] [address] [place] [address] Care Team Providers Care Special Education Math Teacher Name Role Phone Laureano Lantigua MD Primary Care Provider [phone] Reason for Visit * Reason Onset Date Comments Mammogram order 10/22/2017 Encounter Details Date Type Department Care Team (Late st Contact Info) Description 10/22/2017 Telephone [facility] [address] [facility] [address] [place] [address] Nona Cast MA Mammogram order Social History Tobacco Use Types Packs/Day Years Used Date Smoking Tobacco: Never Smokeless Tobacco: Never Alcohol Use Standard Drinks/Week Comments Yes 0 (1 standard drink = 0.6 oz pur e alcohol) Comments No Sex and Gender Information Value Date Recorded Sex Assigned at Not on file Legal Sex Female 1:37 AM BONE PLANT SUPERVISOR Gender Identity Female 10/03/2023 10:05 AM BONE PLANT SUPERVISOR Sexual Orientation Straight 10/03/2023 10 :05 AM BONE PLANT SUPERVISOR documented as of this encounter Miscellaneous Notes * Telephone Encounter - Nona Cast MA - 10/22/2017 1:25 PM CST Faxed screening mammogram to [facility] per patient request. PLANT SUPERVISOR documented in this encounter Plan of Treatment Not on file documented as of this encounter Visit Diagnoses Diagnosis Encounter for screening mammogram for breast cancer- Primary documented in this encounter Care Teams Special Education Math Teacher Relationship Specialty Start Date End Date Laureano Lantigua MD [address] [place] [address] PCP - General 02/14/17 04/19/18 documented as of this encounter
--- OUTSIDE RECORDS SUMMARY | 2024-11-15 03:27 | XMS_ITS | Encounter Summary ---
Author Organization [facility] Medical Group Address [address] [address] Care Team Providers Care Dental Service Technician Name Role Phone Laureano Lantigua MD Primary Care Provider + [phone] Tony Washington MD Unavailable [phone] Anahy Rosales MD Unavailable Rashawn Herring MD Primary Care Provider + Laureano Lantigua MD Primary Care Provider + [phone] Tony Washington MD Unavailable [phone] Anahy Rosales MD Unavailable [phone] Encounter Details Date Type Department Care Team (Late st Contact Info) Description 10/28/2017 Orders Only [facility] [address] [place] [address] Scanning, Provider Social History Tobacco Use Types Packs/Day Years Used Date Smoking Tobacco: Never Smokeless Tobacco: Never Alcohol Use Standard Drinks/Week Comments Yes 0 (1 standard drink = 0.6 oz pur e alcohol) PHQ-2 Answer Date Recorded PHQ-2 Score 0 11/22/2019 Comments No Sex and Gender Information Value Date Recorded Sex Assigned at Not on file Legal Sex Female 1:37 AM PUMP TESTER Gender Identity Female 10/03/2023 10:05 AM PUMP TESTER Sexual Orientation Straight 10/03/2023 10 :05 AM PUMP TESTER COVID-19 Exposure Response Date Recorded In the last month, have you been in contact with someone who was confirmed or suspected to have Coronavirus / COVID-19? No / Unsure 02/07/2020 2:44 PM CDT documented as of this encounter Plan of Treatment Not on file documented as of this encounter Procedures Procedure Name Priority Date/Time Associated Diagnosis Comments SCAN - LABS 10/28/2017 10:51 AM PUMP TESTER documented in this encounter Results * SCAN - LABS (10/28/2017 10:51 AM PUMP TESTER) us Provider Scanning Final Result documented in this encounter Visit Diagnoses Not on filedocumented in this encounter Care Teams Dental Service Technician Relationship Specialty Start Date End Date Laureano Lantigua MD [address] [place] [address] PCP - General 02/14/17 04/19/18 [place] [address] [place] [address] PCP - General Surgery 04/20/18 07/29/18 Laureano Lantigua MD [address] [place] [address] PCP - General Internal Medicine 07/30/18 Tony Washington MD [address] [facility] [address] [address] Transportation Analyst Obstetrics and Gynecology 04/20/18 07/29/18 Anahy Rosales MD [address] [facility] [address] [place] [address] Referring Physician Psychiatry 04/20/18 07/29/18 Tony Washington MD [address] [place] [address] [place] [address] Transportation Analyst Obstetrics and Gynecology 11/16/18 Anahy Rosales MD [address] [place] [address] [place] [address] Referring Physician Psychiatry 11/16/18 documented as of this encounter
--- OUTSIDE RECORDS SUMMARY | 2024-11-15 03:27 | XMS_ITS | Encounter Summary ---
Author Organization [facility] Healthcare Address [address] [place] [address] Care Team Providers Care Burn Out Tender Lace Name Role Phone Laureano Lantigua MD Primary Care Provider [phone] Encounter Details Date Type Department Care Team (Late st Contact Info) Description 11/18/2012 12:15 PM HEALTH UNIT CLERK - 11/18/2012 11:59 PM HEALTH UNIT CLERK Hospital Encounter [facility] Tony Swan MD [address] [place] [address] [address] [place] [address] Excessive or frequent menstruation Social History Tobacco Use Types Packs/Day Years Used Date Smoking Tobacco: Never Assessed Comments Unknown Sex and Gender Information Value Date Recorded Sex Assigned at Not on file Legal Sex Female 1:37 AM HEALTH UNIT CLERK Gender Identity Female 10/03/2023 10:05 AM HEALTH UNIT CLERK Sexual Orientation Straight 10/03/2023 10 :05 AM HEALTH UNIT CLERK documented as of this encounter Medications at Time of Discharge biotin (APPEAREX) 2,500 mcg tablet 2,500 mcg. 0 10/26/2010 03/10/20 23 documented as of this encounter Plan of Treatment Not on file documented as of this encounter Procedures Procedure Name Priority Date/Time Associated Diagnosis Comments SERUM CHORIONIC GONADOTROPIN (HCG), QUANTITATIVE Routine 11/18/2012 6:29 AM HEALTH UNIT CLERK DISCHARGE LABORATORY CUMULATIVE REPORT Routine 11/18/2012 12:00 AM HEALTH UNIT CLERK documented in this encounter Results * (ABNORMAL) Serum chorionic gonadotropin (HCG), quantitative (11/18/2012 6:29 AM HEALTH UNIT CLERK) HCG, quant <5.0(A) IUnits/L HISTORICA L RESULTS Serum 11/18/2012 6:29 AM HEALTH UNIT CLERK Narrative HISTORICAL RESULTS - 11/18/2012 7:15 AM HEALTH UNIT CLERK NEGATIVE: ??0-5 MIU/ML BORDERLINE: ??5-25 MIU/ML POSITIVE: ??GREATER THAN 25 MIU/ML APPROX GEST AGE ?APPROX HCG CONCENTRATION ?3-4 WEEKS ?9-130 ?4-5 WEEKS ? 75-2600 ?5-6 WEEKS ?850-20,800 ?6-7 WEEKS ? 4000-100,200 ?7-12 WEEKS ? 10008-710,000 ?? 12-16 WEEKS ? 73633-149,000 ?? 16-29 WEEKS ?1400-53,000 ?? 29-41 WEEKS ? 900-60,000 Tony Washington MD LAB BLOOD ORDERABLES Final Result HISTORICAL RESULTS * Discharge Laboratory Cumulative Report (11/18/2012 12:00 AM HEALTH UNIT CLERK) 11/18/2012 Narrative HISTORICAL RESULTS - 11/20/2012 12:24 AM HEALTH UNIT CLERK Patient No: [id number] ? [facility] Patient Name: JOSHUA SANDERS ?[facility] Age: 42 YRS ?: 1970 ?Sex:F ?[address] )[phone] ?? Adm Dt: 11/18/2012 ?[place] ??[address] Created: 11/20/2012 ??0024 ?? Pt. Type: R ? Discharge Dt: 11/18/2012 ? Pathologists: Harini Watson MD Admit Attend Dr: TONY WASHINGTON MD ? [facility] ?Collection Date: ?11/18/12 ?Collection Time: ?1229 ? Ref Range: ?? Units: ? mIU/ml ? BETA HCG QUANT ?<5.0 *f Footnotes and Symbols: * = Abnormal, f = Footnote BETA HCG QUANT (Initial -- Current) NEGATIVE: ??0-5 MIU/ML BORDERLINE: ??5-25 MIU/ML POSITIVE: ??GREATER THAN 25 MIU/ML APPROX GEST AGE ?APPROX HCG CONCENTRATION ?3-4 WEEKS ?9-130 ?4-5 WEEKS ? 75-2600 ?5-6 WEEKS ?850-20,800 ?6-7 WEEKS ? 4000-100,200 ?7-12 WEEKS ? 38080-568,000 ?? 12-16 WEEKS ? 18384-146,000 ?? 16-29 WEEKS ?1400-53,000 ?? 29-41 WEEKS ? 900-60,000 ?? END OF CHART ? Page: ?? 1 us Historical Provider LAB BLOOD ORDERABLES Abril dela cruz Result Performing Organization Address [facility]/State/ZIP Co de Phone Number HISTORICAL RESULTS documented in this encounter Visit Diagnoses Diagnosis Excessive or frequent menstruation documented in this encounter Care Teams Burn Out Tender Lace Relationship Specialty Start Date End Date Laureano Lantigua MD [address] [place] [address] PCP - General 08/13/11 11/22/14 documented as of this encounter
--- OUTSIDE RECORDS SUMMARY | 2024-11-15 03:27 | XMS_ITS | Encounter Summary ---
Author Organization [facility] Address [address] [place] [address] Phone Care Team Providers Care District Manager Name Role Phone Laureano Lantigua MD Primary Care Provider [phone] Encounter Details Date Type Department Care Team (Late st Contact Info) Description 01/30/2018 Telephone [facility] [address] [place] [address] Laureano Lantigua MD [address] [place] [address] [address] Social History Tobacco Use Types Packs/Day Years Used Date Smoking Tobacco: Never Smokeless Tobacco: Never Alcohol Use Standard Drinks/Week Comments Yes 0 (1 standard drink = 0.6 oz pur e alcohol) Comments No Sex and Gender Information Value Date Recorded Sex Assigned at Not on file Legal Sex Female 1:37 AM PRODUCTION MATERIAL HANDLER Gender Identity Female 10/03/2023 10:05 AM PRODUCTION MATERIAL HANDLER Sexual Orientation Straight 10/03/2023 10 :05 AM PRODUCTION MATERIAL HANDLER documented as of this encounter Miscellaneous Notes * Telephone Encounter - Kacie Ackerman MA - 01/30/2018 1:17 PM CDT Lvm, tried calling patient need strenght and how many times patient takes the buspar * Telephone Encounter - Laureano Lantigua MD - 01/30/2018 12:09 PM CDT OK TO FILL * Telephone Encounter - Jenifer Garza LPN - 01/30/2018 11:57 AM CDT buspar not on med list and wellbutrin says last filled by Rose Diaz * Telephone Encounter - Selin Real - 01/30/2018 9:39 AM CDT Pt was seen in the office in November She checked her pharmacy and the following medication has not been received by them wellbutrin buspar req a refill documented in this encounter Plan of Treatment Not on file documented as of this encounter Visit Diagnoses Not on filedocumented in this encounter Care Teams District Manager Relationship Specialty Start Date End Date Laureano Lantigua MD [address] [place] [address] PCP - General 02/14/17 04/19/18 documented as of this encounter
--- OUTSIDE RECORDS SUMMARY | 2024-11-15 03:27 | XMS_ITS | Encounter Summary ---
Author Organization [facility] Healthcare Address [address] [place] [address] Care Team Providers Care Supplier Engineer Name Role Phone Laureano Lantigua MD Primary Care Provider [phone] Tony Washington MD Unavailable [phone] Anahy Rosales MD Unavailable [phone] Reason for Referral * Diagnostic Imaging (Routine) - Closed Specialty Diagnoses / Procedures Referred By Jesse santana Referred To Contact Diagnoses Screening breast examination Procedures Screening Mammogram Bilateral W Tony Gamez MD Phone: tel: fax: [address] [address] Referral ID Status Reason Start Date Expiration Date Visits Re quested Visits Authorized [id number] Closed 01/29/2019 08/09/2020 1 1 Reason for Visit * Diagnostic Imaging (Routine) - Closed Specialty Diagnoses / Procedures Referred By Jesse santana Referred To Contact Diagnoses Screening breast examination Procedures Screening Mammogram Bilateral W Tony Gamez MD Phone: tel: fax: [address] [phone] Referral ID Status Reason Start Date Expiration Date Visits Re quested Visits Authorized [id number] Closed 01/29/2019 08/09/2020 1 1 Encounter Details Date Type Department Care Team (Latest Contact Info) Description 02/08/2019 2:30 PM CDT - 02/08/2019 11:59 PM CDT Hospital Encounter [facility] [address] [place] [address] Tony Washington MD [address] [place] [address] [address] [place] [address] Screening breast examination Discharge Disposition: Discharge to home or self care Social History Tobacco Use Types Packs/Day Years Used Date Smoking Tobacco: Never Smokeless Tobacco: Never Alcohol Use Standard Drinks/Week Comments Yes 0 (1 standard drink = 0.6 oz pur e alcohol) Comments No Sex and Gender Information Value Date Recorded Sex Assigned at Not on file Legal Sex Female 1:37 AM SOFTWARE APPLICATIONS SPECIALIST Gender Identity Female 10/03/2023 10:05 AM SOFTWARE APPLICATIONS SPECIALIST Sexual Orientation Straight 10/03/2023 10 :05 AM SOFTWARE APPLICATIONS SPECIALIST documented as of this encounter Last Filed Vital Signs Vital Sign Reading Time Taken Comments Blood Pressure - - Pulse - - Temperature - - Respiratory Rate - - Oxygen Saturation - - Inhaled Oxygen Concentration - - Weight 101.2 kg (223 lb) 02/08/2019 2:52 PM CDT Height 182.9 cm (6') 02/08/2019 2:52 PM CDT Body Mass Index 30.24 02/08/2019 2:52 PM CDT documented in this encounter Medications at Time of Discharge ferrous sulfate 325 mg (65 mg of elemental iron) tabletIndication s:Iron Deficiency Anemia Take 1 tablet (325 mg total) by mouth daily with breakfast albuterol HFA (PROVENTIL HFA,VENTOLIN HFA) 90 mcg/actuation inhaler 2 puffs qid prn 1 Inhaler 11 12/08/2017 0 biotin (APPEAREX) 2,500 mcg tablet 2,500 mcg. 0 10/26/2010 3 buPROPion XL (WELLBUTRIN XL) 150 mg 24 hr tablet Take 1 tablet (150 mg total) by mouth every morning. 90 tablet 2 11/16/2018 0 carisoprodol (SOMA) 350 mg tablet Take 1 tablet (350 mg total) by mouth 3 (three) times a day as needed for muscle spasms. 30 tablet 11/16/2018 0 cyanocobalamin (vitamin B-12) 500 mcg tablet 500 mcg. 0 0 08/10/2015 0 multivitamin (MULTIPLE VITAMINS) tablet tablet take 1 tablet by oral route every day with food 0 0 01/16/2015 3 multivitamin capsule take 1 capsule by oral route every day 0 0 08/10/2015 0 omeprazole (PriLOSEC) 20 mg capsule TAKE 1 CAPSULE BY MOUTH qd 5 03/31/2018 2 oxyCODONE-acetam inophen (PERCOCET) 5-325 mg per tabletIndication s:Pain Take 1 tablet by mouth every 8 (eight) hours as needed for pain. 30 tablet 11/16/2019 0 sucralfate (CARAFATE) suspension 1 gram/10 mL Take 1 g by mouth. 03/31/2018 2 TRINTELLIX 10 mg tabletIndication s:major depressive disorder Take 10 mg by mouth daily. 1 03/18/2018 0 documented as of this encounter Discharge Disposition Disposition Code Departure Means Destination Discharge to home or self care documented in this encounter Plan of Treatment Not on file documented as of this encounter Procedures Procedure Name Priority Date/Time Associated Diagnosis Comments SCREENING MAMMOGRAM BILATERAL W RADHA Schedule Routine, Read Routine (OP Routine) 02/08/2019 2:59 PM CDT Screening breast examination documented in this encounter Results * Screening Mammogram Bilateral W Radha (02/08/2019 2:59 PM CDT) Anatomical Region Laterality Modality Breast Bilateral Mammography 02/08/2019 5:12 PM CDT Impressions 02/08/2019 5:14 PM CDT 1. ??NO FINDINGS SUSPICIOUS FOR MALIGNANCY. 2. ??ANNUAL FOLLOW-UP RECOMMENDED. BI-RADS 1--negative Electronically signed by: Jef Self Jr. 02/08/2019 5:14 PM CDT SCREENING MAMMOGRAM BILATERAL W RADHA HISTORY: Encounter for screening mammogram for malignant neoplasm of breast. TECHNIQUE: 2 views of each breast were obtained with bilateral breast tomosynthesis. COMPARISON: 11/11/2017, 11/15/2015, 04/11/2011 FINDINGS: Scattered fibroglandular densities bilaterally. No dominant mass, skin thickening, nipple retraction or suspicious cluster of microcalcifications is seen. Digital technology was employed plus computer aided detection software (R2) was utilized in interpretation of these images. ??This facility utilizes a reminder system to notify patient's of yearly mammograms. us Tony Washington MD IMG MAMMO PROCEDURES Final Result documented in this encounter Visit Diagnoses Diagnosis Screening breast examination Other screening breast examination documented in this encounter Care Teams Supplier Engineer Relationship Specialty Start Date End Date Laureano Lantigua MD [address] [place] [address] PCP - General Internal Medicine 07/30/18 Tony Washington MD [address] [facility] [place] [address] Freight Claim Investigator Obstetrics and Gynecology 11/16/18 Anahy Rosales MD [address] [facility] [place] [address] Referring Physician Psychiatry 11/16/18 documented as of this encounter
--- OUTSIDE RECORDS SUMMARY | 2024-11-15 03:27 | XMS_ITS | Encounter Summary ---
Author Organization [facility] Address [address] [place] [address] Phone Care Team Providers Care Hand Binder Stripper Name Role Phone Laureano Lantigua MD Primary Care Provider [phone] Encounter Details Date Type Department Care Team (Late st Contact Info) Description 10/27/2017 Telephone [facility] [address] [place] [address] Laureano Lantigua MD [address] [place], [place] [address] [address] Social History Tobacco Use Types Packs/Day Years Used Date Smoking Tobacco: Never Smokeless Tobacco: Never Alcohol Use Standard Drinks/Week Comments Yes 0 (1 standard drink = 0.6 oz pur e alcohol) Comments No Sex and Gender Information Value Date Recorded Sex Assigned at Not on file Legal Sex Female 1:37 AM BLOCK HANDLER Gender Identity Female 10/03/2023 10:05 AM BLOCK HANDLER Sexual Orientation Straight 10/03/2023 10 :05 AM BLOCK HANDLER documented as of this encounter Miscellaneous Notes * Telephone Encounter - Jenifer Garza LPN - 10/27/2017 3:05 PM CST Pt needs refills on rest of her meds to [facility] mail order K HANDLER documented in this encounter Plan of Treatment Not on file documented as of this encounter Visit Diagnoses Not on filedocumented in this encounter Care Teams Hand Binder Stripper Relationship Specialty Start Date End Date Laureano Lantigua MD [address] [place] [address] PCP - General 02/14/17 04/19/18 documented as of this encounter
--- OUTSIDE RECORDS SUMMARY | 2024-11-15 03:27 | XMS_ITS | Encounter Summary ---
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); Screening for breast cancer Social History Tobacco Use Types Packs/Day Years Used Date Smoking Tobacco: Never Smokeless Tobacco: Never Alcohol Use Standard Drinks/Week Comments Yes 0 (1 standard drink = 0.6 oz pur e alcohol) Comments No Sex and Gender Information Value Date Recorded Sex Assigned at Not on file Legal Sex Female 1:37 AM MANAGEMENT DEVELOPMENT SPECIALIST Gender Identity Female 10/03/2023 10:05 AM MANAGEMENT DEVELOPMENT SPECIALIST Sexual Orientation Straight 10/03/2023 10 :05 AM MANAGEMENT DEVELOPMENT SPECIALIST documented as of this encounter Last Filed Vital Signs Vital Sign Reading Time Taken Comments Blood Pressure 124/82 06/23/2017 1:37 PM CDT Pulse - - Temperature - - Respiratory Rate - - Oxygen Saturation - - Inhaled Oxygen Concentration - - Weight 93.9 kg (207 lb) 06/23/2017 1:37 PM CDT Height - - Body Mass Index 28.07 02/21/2017 10:11 AM CDT documented in this encounter Ordered Prescriptions Prescription Sig Dispense Quantity Refills Last Filled Start Date End Date valACYclovir (VALTREX) 1 gram tablet Take 1 tablet (1,000 mg total) by mouth daily. 30 tablet 3 06/23/2017 04/20/2018 documented in this encounter Progress Notes * Tony Washington MD - 06/23/2017 1:30 PM CDT Deodorizer Operator Visit Subjective: Finesse Ramirez is a 47 y.o. year old female who presents for evaluation of white bumps painful on her lower perineal body on the right near her anus x few days. 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 She is . Contraception:None Patient's last menstrual period was 06/03/2017. Current Outpatient Prescriptions: ??? albuterol HFA (PROVENTIL HFA,VENTOLIN HFA) 90 mcg/actuation inhaler, inhale 2 puff by inhalation route every QID as needed, Disp: 1 Inhaler, Rfl: 0 ??? biotin (APPEAREX) 2,500 mcg tablet, 2 mcg., Disp: , Rfl: 0 ??? buPROPion XL (WELLBUTRIN XL) 150 mg 24 hr tablet, take 1 tablet by oral route every day, Disp: 0, Rfl: 0 ??? carisoprodol (SOMA) 350 mg tablet, take 1 tablet by oral route TID prn, Disp: 30, Rfl: 0 ??? cyanocobalamin (vitamin B-12) 500 mcg tablet, 500 mcg., Disp: 0, Rfl: 0 ??? choriogonadotropin yandy,humrec (OVIDREL) 250 mcg/0.5 mL injection, inject 0.5 milliliter by subcutaneous route every day for 1 day, Disp: 1 Syringe, Rfl: 0 ??? multivitamin (MULTIPLE VITAMINS) tablet tablet, take 1 tablet by oral route every day with food, Disp: 0, Rfl: 0 ??? multivitamin capsule, take 1 capsule by oral route every day, Disp: 0, Rfl: 0 ??? valACYclovir (VALTREX) 1 gram tablet, Take 1 tablet (1,000 mg total) by mouth daily., Disp: 30 tablet, Rfl: 3 Allergies Allergen Reactions ??? Erythromycin Rash ??? Morphine Nausea only and Vomiting Reaction: Nausea, Vomiting, , Reaction: Nausea, Vomiting, , Review of Systems Objective: BP 124/82 Wt 93.9 kg (207 lb) LMP 06/03/2017 BMI 28.07 kg/m?? Physical Exam: General: Pleasant female in no acute distress. Pelvic Exam: External Genitalia: WNL Right perianal area: 6 small vesicles, some white, tender. Assessment and Plan: Diagnoses and all orders for this visit: 1. Herpes simplex infection of perianal skin (Primary) Comments: Valtrex: may take 500mg BID x 5 days or 1000mg daily prophylaxis. 2. Screening for breast cancer Comments: Script sent. Orders: - Screening Mammogram bilateral; Future Other orders - valACYclovir (VALTREX) 1 gram tablet; Take 1 tablet (1,000 mg total) by mouth daily. Return for annual exam. Tony Washington MD 06/23/2017 documented in this encounter Plan of Treatment Not on file documented as of this encounter Visit Diagnoses Diagnosis Herpes simplex infection of perianal skin- Primary Screening for breast cancer Breast screening, unspecified documented in this encounter Discontinued Medications Medication Sig Discontinue Reason Start Date End Da te oxyCODONE-acetaminophe n (PERCOCET) 5-325 mg per tablet take 1 tablet by oral route qday PRN #30 03/24/2014 06/23/2017 oxyCODONE-acetaminophe n (PERCOCET) 5-325 mg per tablet take 1 tablet by oral route qday PRN #30 03/24/2014 06/23/2017 albuterol HFA (PROVENTIL HFA,VENTOLIN HFA) 90 mcg/actuation inhaler inhale 2 puff by inhalation route every QID as needed Duplicate order 11/04/2013 06/23/2017 buPROPion XL (WELLBUTRIN XL) 150 mg 24 hr tablet take 1 tablet by oral route every day Duplicate order 12/30/2016 06/23/2017 busPIRone (BUSPAR) 5 mg tablet take 1 tablet by oral route 2 times every day Therapy completed 11/07/2016 06/23/2017 carisoprodol (SOMA) 350 mg tablet take 1 tablet by oral route TID prn Duplicate order 11/04/2013 06/23/2017 clomiPHENE (CLOMID) 50 mg tablet take 2 tablet by oral route every day on days 3-7 of cycle Therapy completed 10/23/2015 06/23/2017 lansoprazole (PREVACID) 30 mg capsule take 1 capsule by oral route every day before a meal Therapy completed 01/16/2015 06/23/2017 lansoprazole (PREVACID) 30 mg capsule take 1 capsule by oral route every day before a meal Therapy completed 01/16/2015 06/23/2017 metFORMIN (GLUCOPHAGE) 500 mg tablet take 1 tablet by oral route 3 times every day with morning, lunch and evening meals Therapy completed 11/23/2014 06/23/2017 metFORMIN (GLUCOPHAGE) 500 mg tablet take 1 tablet by oral route qd Therapy completed 11/23/2014 06/23/2017 thiamine (vitamin B-1) 100 mg tablet 100 mg. Therapy completed 08/10/2015 06/23/2017 thiamine (vitamin B-1) 100 mg tablet 100 mg. Therapy completed 01/16/2015 06/23/2017 documented as of this encounter Care Teams Computer Systems Designer Relationship Specialty Start Date End Date Laureano Lantigua MD [address] [place] [address] PCP - General 02/14/17 04/19/18 documented as of this encounter
--- OUTSIDE RECORDS SUMMARY | 2024-11-15 03:27 | XMS_ITS | Encounter Summary ---
Author Organization [facility] Facility Care Team Providers Care Cable Worker Helper Name Role Phone Laureano Lantigua MD Primary Care Provider [phone]- [phone] Encounter Details Date Type Department Care Team (Late st Contact Info) Description 2013 - 2013 11:59 PM CDT Hospital Encounter [facility] Madai Silver MD [address] [place] [address] [phone] Fertility testing Social History Tobacco Use Types Packs/Day Years Used Date Smoking Tobacco: Never Assessed Comments Unknown Sex and Gender Information Value Date Recorded Sex Assigned at Not on file Legal Sex Female 1:37 AM CUSTOMER OPERATIONS REPRESENTATIVE Gender Identity Female 10/03/2023 10:05 AM CUSTOMER OPERATIONS REPRESENTATIVE Sexual Orientation Straight 10/03/2023 10 :05 AM CUSTOMER OPERATIONS REPRESENTATIVE documented as of this encounter Medications at Time of Discharge biotin (APPEAREX) 2,500 mcg tablet 2,500 mcg. 0 10/26/2010 03/10/20 23 documented as of this encounter Plan of Treatment Not on file documented as of this encounter Procedures Procedure Name Priority Date/Time Associated Diagnosis Comments HYSTEROSALPINGOGRAM Routine 2013 1 1:57 AM CDT HYSTEROSALPINGOGRAM Routine 2013 1 1:57 AM CDT documented in this encounter Results * XR Hysterosalpingogram (2013 11:57 AM CDT) Anatomical Region Laterality Modality Body, Pelvis N/A Radiographic Lindsay ging 2013 11:5 7 AM CDT Narrative 2013 2:27 PM CDT Jef CALLAHAN M.D. HO FINAL REPORT The radiology attending physician has personally reviewed this study, and has reviewed and/or edited this written report and agrees with it. ACC# ??Date Time ??Exam [id number] 2013 11:57:00 [id number] Inj HSG [id number] 2013 11:57:00 [id number] HSG, S&I EXAMINATION: ?Hysterosalpingogram HISTORY: 43-year-old woman, on day 7 of her menstrual cycle. Diagnostic evaluation of the fallopian tubes and uterine cavity. TECHNIQUE: ??Using sterile technique, a speculum was inserted into the vagina and the cervix cleansed with Betadine solution. A hysterocatheter was placed, and Conray 60 was injected into the uterus. ??Multiple fluoroscopic images of the pelvis were obtained. ??The patient tolerated the procedure well without complication. Dr. Alonzo, the attending radiologist, was present from the beginning to the end of the procedure. FINDINGS: Endocervical canal: The endocervical canal is normal in appearance. Uterus: ??The uterus is anteverted. ??There are no filling defects, and the uterine contour is normal. Fallopian tubes: There is mild beading of the distal right fallopian tube near the fimbriae, consistent with mild tubal disease. The left fallopian tube is normal. There is peritoneal spillage from both tubes. ?? IMPRESSION: Mild beading of the distal right fallopian tube near the fimbriae, consistent with mild tubal disease. Both fallopian tubes are patent with peritoneal spillage from both tubes. ?? Requested By: Madai Silver ??Jef Dictated By: ?? HARPREET STUART M.D. HO ??on Feb ??2012 ??1:49P This document has been electronically signed by: REESE ALONZO M.D. on Feb ??2012 ??2:27P Procedure Note Provider, MD Kanu - 03/08/2017 Jef CALLAHAN M.D. HO FINAL REPORT The radiology attending physician has personally reviewed this study, and has reviewed and/or edited this written report and agrees with it. ACC# Date Time Exam [id number] 2013 11:57:00 [id number] Inj HSG [id number] 2013 11:57:00 [id number] HSG, S&I EXAMINATION: Hysterosalpingogram HISTORY: 43-year-old woman, on day 7 of her menstrual cycle. Diagnostic evaluation of the fallopian tubes and uterine cavity. TECHNIQUE: Using sterile technique, a speculum was inserted into the vagina and the cervix cleansed with Betadine solution. A hysterocatheter was placed, and Conray 60 was injected into the uterus. Multiple fluoroscopic images of the pelvis were obtained. The patient tolerated the procedure well without complication. Dr. Alonzo, the attending radiologist, was present from the beginning to the end of the procedure. FINDINGS: Endocervical canal: The endocervical canal is normal in appearance. Uterus: The uterus is anteverted. There are no filling defects, and the uterine contour is normal. Fallopian tubes: There is mild beading of the distal right fallopian tube near the fimbriae, consistent with mild tubal disease. The left fallopian tube is normal. There is peritoneal spillage from both tubes. IMPRESSION: Mild beading of the distal right fallopian tube near the fimbriae, consistent with mild tubal disease. Both fallopian tubes are patent with peritoneal spillage from both tubes. Requested By: Madai Silver M.D. Dictated By: Jef AGGARWAL on 2013 1:49P This document has been electronically signed by: REESE ALONZO M.D. on 2013 2:27P Historical Provider MD FELIZ FLUOROSCOPY PROCEDURE S Final Result * XR Hysterosalpingogram (2013 11:57 AM CDT) Anatomical Region Laterality Modality Body, Pelvis N/A Radiographic Lindsay ging 2013 11:5 7 AM CDT Narrative 2013 2:27 PM CDT REESE ALONZO M.D. HARPREET STUART M.D. HO FINAL REPORT The radiology attending physician has personally reviewed this study, and has reviewed and/or edited this written report and agrees with it. ACC# ??Date Time ??Exam [id number] 2013 11:57:00 [id number] Inj HSG [id number] 2013 11:57:00 [id number] HSG, S&I EXAMINATION: ?Hysterosalpingogram HISTORY: 43-year-old woman, on day 7 of her menstrual cycle. Diagnostic evaluation of the fallopian tubes and uterine cavity. TECHNIQUE: ??Using sterile technique, a speculum was inserted into the vagina and the cervix cleansed with Betadine solution. A hysterocatheter was placed, and Conray 60 was injected into the uterus. ??Multiple fluoroscopic images of the pelvis were obtained. ??The patient tolerated the procedure well without complication. Dr. Alonzo, the attending radiologist, was present from the beginning to the end of the procedure. FINDINGS: Endocervical canal: The endocervical canal is normal in appearance. Uterus: ??The uterus is anteverted. ??There are no filling defects, and the uterine contour is normal. Fallopian tubes: There is mild beading of the distal right fallopian tube near the fimbriae, consistent with mild tubal disease. The left fallopian tube is normal. There is peritoneal spillage from both tubes. ?? IMPRESSION: Mild beading of the distal right fallopian tube near the fimbriae, consistent with mild tubal disease. Both fallopian tubes are patent with peritoneal spillage from both tubes. ?? Requested By: Madai Silver ??Jef Dictated By: ?? HARPREET STUART M.D. HO ??on Feb ??2012 ??1:49P This document has been electronically signed by: REESE ALONZO M.D. on Feb ??2012 ??2:27P Procedure Note Provider, MD Kanu - 03/08/2017 REESE ALONZO M.D. Jef AGGARWAL FINAL REPORT The radiology attending physician has personally reviewed this study, and has reviewed and/or edited this written report and agrees with it. ACC# Date Time Exam [id number] 2013 11:57:00 [id number] Inj HSG [id number] 2013 11:57:00 [id number] HSG, S&I EXAMINATION: Hysterosalpingogram HISTORY: 43-year-old woman, on day 7 of her menstrual cycle. Diagnostic evaluation of the fallopian tubes and uterine cavity. TECHNIQUE: Using sterile technique, a speculum was inserted into the vagina and the cervix cleansed with Betadine solution. A hysterocatheter was placed, and Conray 60 was injected into the uterus. Multiple fluoroscopic images of the pelvis were obtained. The patient tolerated the procedure well without complication. Dr. Alonzo, the attending radiologist, was present from the beginning to the end of the procedure. FINDINGS: Endocervical canal: The endocervical canal is normal in appearance. Uterus: The uterus is anteverted. There are no filling defects, and the uterine contour is normal. Fallopian tubes: There is mild beading of the distal right fallopian tube near the fimbriae, consistent with mild tubal disease. The left fallopian tube is normal. There is peritoneal spillage from both tubes. IMPRESSION: Mild beading of the distal right fallopian tube near the fimbriae, consistent with mild tubal disease. Both fallopian tubes are patent with peritoneal spillage from both tubes. Requested By: Madai Silver M.D. Dictated By: Jef AGGARWAL on 2013 1:49P This document has been electronically signed by: REESE ALONZO M.D. on 2013 2:27P Historical Provider MD FELIZ FLUOROSCOPY PROCEDURE S Final Result documented in this encounter Visit Diagnoses Diagnosis Fertility testing documented in this encounter Care Teams Cable Worker Helper Relationship Specialty Start Date End Date Laureano Lantigua MD [address] [place] [address] PCP - General 08/13/11 11/22/14 documented as of this encounter
--- OUTSIDE RECORDS SUMMARY | 2024-11-15 03:27 | XMS_ITS | Encounter Summary ---
Author Organization [facility] Healthcare Address [address] [place] [address] Care Team Providers Care Compliance Associate Name Role Phone Laureano Lantigua MD Primary Care Provider [phone] Encounter Details Date Type Department Care Team (Late st Contact Info) Description 11/15/2015 9:07 AM MILLWRIGHT - 11/15/2015 11:59 PM MILLWRIGHT Hospital Encounter [facility] Tony Swan MD [address] [place] [address] [address] [place] [id number] Encounter for screening mammogram for malignant neoplasm of breast Social History Tobacco Use Types Packs/Day Years Used Date Smoking Tobacco: Never Alcohol Use Standard Drinks/Week Comments Yes 0 (1 standard drink = 0.6 oz pur e alcohol) Comments Unknown Sex and Gender Information Value Date Recorded Sex Assigned at Not on file Legal Sex Female 1:37 AM MILLWRIGHT Gender Identity Female 10/03/2023 10:05 AM MILLWRIGHT Sexual Orientation Straight 10/03/2023 10 :05 AM MILLWRIGHT documented as of this encounter Medications at Time of Discharge albuterol HFA (PROVENTIL HFA,VENTOLIN HFA) 90 mcg/actuation inhaler inhale 2 puff by inhalation route every QID as needed 1 Inhaler 0 11/04/2013 8 albuterol HFA (PROVENTIL HFA,VENTOLIN HFA) 90 mcg/actuation inhaler inhale 2 puff by inhalation route every QID as needed 1 Inhaler 0 11/04/2013 7 biotin (APPEAREX) 2,500 mcg tablet 2,500 mcg. 0 10/26/2010 3 buPROPion XL (WELLBUTRIN XL) 150 mg 24 hr tablet take 1 tablet by oral route every day 0 0 08/10/2015 8 carisoprodol (SOMA) 350 mg tablet take 1 tablet by oral route TID prn 30 0 11/04/2013 8 carisoprodol (SOMA) 350 mg tablet take 1 tablet by oral route TID prn 45 0 11/04/2013 7 clomiPHENE (CLOMID) 50 mg tablet take 2 tablet by oral route every day on days 3-7 of cycle 10 0 10/23/2015 7 cyanocobalamin (vitamin B-12) 500 mcg tablet 500 mcg. 0 0 08/10/2015 0 lansoprazole (PREVACID) 30 mg capsule take 1 capsule by oral route every day before a meal 90 1 01/16/2015 7 lansoprazole (PREVACID) 30 mg capsule take 1 capsule by oral route every day before a meal 90 1 01/16/2015 7 metFORMIN (GLUCOPHAGE) 500 mg tablet take 1 tablet by oral route 3 times every day with morning, lunch and evening meals 90 6 11/23/2014 7 metFORMIN (GLUCOPHAGE) 500 mg tablet take 1 tablet by oral route qd 90 6 11/23/2014 7 multivitamin (MULTIPLE VITAMINS) tablet tablet take 1 tablet by oral route every day with food 0 0 01/16/2015 3 multivitamin capsule take 1 capsule by oral route every day 0 0 08/10/2015 0 oxyCODONE-acetam inophen (PERCOCET) 5-325 mg per tablet take 1 tablet by oral route qday PRN #30 30 0 03/24/2014 7 oxyCODONE-acetam inophen (PERCOCET) 5-325 mg per tablet take 1 tablet by oral route qday PRN #30 30 0 03/24/2014 7 thiamine (vitamin B-1) 100 mg tablet 100 mg. 0 0 08/10/2015 7 thiamine (vitamin B-1) 100 mg tablet 100 mg. 0 0 01/16/2015 7 documented as of this encounter Plan of Treatment Not on file documented as of this encounter Procedures Procedure Name Priority Date/Time Associated Diagnosis Comments DIGITAL MAMMOGRAPHY Routine 11/15/2015 9 :54 AM MILLWRIGHT documented in this encounter Results * DIGITAL MAMMOGRAPHY (11/15/2015 9:54 AM MILLWRIGHT) Anatomical Region Laterality Modality Breast Mammography 11/15/2015 9:54 AM MILLWRIGHT Narrative 11/15/2015 3:29 PM MILLWRIGHT MR Screening Mamm Bi ??Acc#: ??[id number] DATE OF EXAM: ??Nov 15 2015 Performed by: CLINICAL HISTORY: Routine screening. ??No current complaints. RESULT: Four view screening mammogram is compared to a prior exam dated 04/11/11. There has been no interval change. ??The breasts are composed of scattered fibroglandular densities. ??There are no new masses or suspicious microcalcifications. Digital technology was employed plus computer-aided detection software (R2) was utilized in interpretation of these images. ??This facility utilizes a reminder system to notify patients of yearly mammograms. IMPRESSION: BI-RADS CATEGORY 1 - NEGATIVE EXAM. ??RECOMMEND ROUTINE FOLLOW-UP. Interpreting Physician: ??DR CHRIS MCALLISTER M.D. ??Read on: ??Nov 15 2015 2:30P Transcribed by: ??mrr ??On: Nov 15 2015 ??2:30P Approved Electronically by: ??DR CHRIS MCALLISTER M.D. ??on: ??Nov 15 2015 3:28P Attending: ??DR TONY SAUCEDO Requesting: ??FAITH CHERY NP Requesting Fax: ??[phone] Attending Fax: ??[phone] Attending ID: ??[id number] Requesting ID: ??[id number] Report To 1 ID: ??[id number] Report To 1 Name: ??DR TONY SAUCEDO Report To 1 FAX: ??[phone] NextGen Order #: Procedure Note Provider, MD Kanu - 03/08/2017 MR Screening Mamm Bi Acc#: [id number] DATE OF EXAM: Nov 15 2015 Performed by: CLINICAL HISTORY: Routine screening. No current complaints. RESULT: Four view screening mammogram is compared to a prior exam dated 04/11/11.There has been no interval change. The breasts are composed of scatteredfibroglandular densities. There are no new masses or suspiciousmicrocalcifications. Digital technology was employed plus computer-aideddetection software (Starbates) was utilized in interpretation of these images.This facility utilizes a reminder system to notify patients of yearlymammograms. IMPRESSION: BI-RADS CATEGORY 1 - NEGATIVE EXAM. RECOMMEND ROUTINE FOLLOW-UP. Interpreting Physician: DR CHRIS MCALLISTER M.D. Read on: Nov 15 20152:30P Transcribed by: von On: Nov 15 2015 2:30P Approved Electronically by: ARY Fuchs, DR PEREZ on: Nov 15 20153:28P Attending: DR TONY SAUCEDO Requesting: FIATH CHERY NP Requesting Attending Attending ID: [id number] Requesting ID: [id number] Report To 1 ID: [id number] Report To 1 Name: DR TONY SAUCEDO Report To 1 FAX: [phone] NextGen Order #: Historical Provider MD FELIZ MAMMO PROCEDURES Abril l Result documented in this encounter Visit Diagnoses Diagnosis Encounter for screening mammogram for malignant neoplasm of breast documented in this encounter Care Teams Compliance Associate Relationship Specialty Start Date End Date Laureano Lantigua MD [address] [place] [place] [address] PCP - General 11/23/14 02/13/17 documented as of this encounter
--- OUTSIDE RECORDS SUMMARY | 2024-11-15 03:27 | XMS_ITS | Encounter Summary ---
Author Organization [facility] Group Address [address] [address] Care Team Providers Care Modeling Analyst Name Role Phone Laureano Lantigua MD Primary Care Provider [phone] Tony Washington MD Unavailable [phone] Anahy Rosales MD Unavailable [phone] Reason for Visit * Reason Comments Annual Exam Encounter Details Date Type Department Care Team (Late st Contact Info) Description 11/16/2018 1:30 PM [employer] SUPERVISOR Office Visit [facility] [address] [place] [address] Laureano Lantigua MD [address] [place] [address] Routine physical examination (Primary Dx); Recurrent major depressive disorder, in full remission (CMS/HCC); Low back pain with sciatica, sciatica laterality [...] on file Legal Sex Female 1:37 AM [employer]OR Gender Identity Female 10/03/2023 10:05 AM [employer]OR Sexual Orientation Straight 10/03/2023 10 :05 AM [employer]OR documented as of this encounter Last Filed Vital Signs Vital Sign Reading Time Taken Comments Blood Pressure 130/84 11/16/2018 1:43 PM [employer] Pulse 84 11/16/2018 1:43 PM [employer] Temperature 36.2 ??C (97.2 ??F) 11/16/2018 1:43 PM CS T Respiratory Rate 16 11/16/2018 1:43 PM [employer] Oxygen Saturation 98% 11/16/2018 1:43 PM [employer] Inhaled Oxygen Concentration - - Weight 101.6 kg (224 lb) 11/16/2018 1:43 PM [employer] Height 182.2 cm (5' 11.75 ) 11/16/2018 1:[address] Body Mass Index 30.59 11/16/2018 1:43 PM [employer] documented in this encounter Patient Instructions * Patient Instructions* Laureano Lantigua MD - 11/16/2018 1:30 PM [employer] SU[employer]VISOR PERCOCET AND SOMA IS BEING PRINTED CBC/CMP/FLP TWO WEESK NEXVTISIT RTC IN ONE YEAR [employer]OR [employer] documented in this encounter Ordered Prescriptions Prescription Sig Dispense Quantity Refills Last Filled Start Date End Date carisoprodol (SOMA) 350 mg tablet Take 1 tablet (350 mg total) by mouth 3 (three) times a day as needed for muscle spasms. 30 tablet 11/16/2018 11/22/2019 oxyCODONE-acetamin ophen (PERCOCET) 5-325 mg per tabletIndications: Pain Take 1 tablet by mouth every 8 (eight) hours as needed for pain. 30 tablet 11/16/2018 11/18/2018 buPROPion XL (WELLBUTRIN XL) 150 mg 24 hr tablet Take 1 tablet (150 mg total) by mouth every morning. 90 tablet 2 11/16/2018 11/22/2019 documented in this encounter Progress Notes * Laureano Lantigua MD - 11/16/2018 1:30 PM CST Images from the original note were not included. Patient ID: Finesse Ramirez is a 48 y.o. female. Chief Complaint. Chief Complaint Patient presents with ??? Annual Exam HPI. Patient is a 48 y.o. female HPI IMMUNIZATIONMS WERE REVIEWED SHE DID HAVE A TRIP TO [place]/ SHE DID SEE THE EYE DOCTOR [place]/ SHEDID SEE THE DENITST/ Past Medical History: Diagnosis Date ??? Asthma Asthma; Comments: [facility] 06/27/2014 - ??? Female infertility Infertility, female ??? Hammer toe Hammer toe; Comments: [facility] 06/27/2014 - ??? HX OTHER MEDICAL Sinusitis, ADD, diverticulosis, obesity, OA, asthm ??? HX OTHER MEDICAL Depression, with Anxiety; PCOS ??? HX OTHER MEDICAL Missed Ab ??? HX OTHER MEDICAL ; Outcome: [id number] week 7lb(s) 7 oz Male ??? Hypercholesterolemia High cholesterol; Comments: [facility] 06/27/2014 - ??? Hypertension Hypertension ??? Polycystic ovaries Polycystic ovary syndrome ??? Retinal detachment Detachment of retina; Comments: [facility] 06/27/2014 - Past Surgical History: Procedure Laterality Date ??? ANKLE SURGERY Ankle surgery ??? CARPAL TUNNEL RELEASE Carpal tunnel release ??? FOOT SURGERY left foot surgery ??? [...] , ??? Vicodin [Hydrocodone-Acetaminophen] Vomiting Social History Substance Use Topics ??? Smoking status: Never Smoker ??? Smokeless tobacco: Never Used ??? Alcohol use Yes Family History Problem Relation Age of [...] Other Diabetes mellitus; Current Medications: Outpatient Encounter Prescriptions as of 11/16/2018 Medication Sig Dispense Refill ??? albuterol HFA (PROVENTIL HFA,VENTOLIN HFA) 90 mcg/actuation inhaler 2 puffs qid prn 1 Inhaler 11 ??? biotin (APPEAREX) 2,500 mcg tablet 2,500 mcg. 0 ??? buPROPion XL (WELLBUTRIN XL) 150 mg 24 hr tablet Take 1 tablet (150 mg total) by mouth every morning. 90 tablet 2 ??? carisoprodol (SOMA) 350 mg tablet Take 1 tablet (350 mg total) by mouth 3 (three) times a day as needed for muscle spasms. 30 tablet 0 ??? cyanocobalamin (vitamin B-12) 500 mcg tablet 500 mcg. 0 0 ??? ferrous sulfate 325 mg (65 mg of elemental iron) tablet Take 65 mg of elemental iron by mouth daily with breakfast. ??? multivitamin (MULTIPLE VITAMINS) tablet tablet take 1 tablet by oral route every day with food 0 0 ??? omeprazole (PriLOSEC) 20 mg capsule TAKE 1 CAPSULE BY MOUTH qd 5 ??? oxyCODONE-acetaminophen (PERCOCET) 5-325 mg per tablet Take 1 tablet by mouth every 8 (eight) hours as needed for pain. 30 tablet 0 ??? TRINTELLIX 10 mg tablet Take 10 mg by mouth daily. 1 ??? [DISCONTINUED] buPROPion XL (WELLBUTRIN XL) 150 mg 24 hr tablet take 1 tablet by oral route every day 0 0 ??? [DISCONTINUED] carisoprodol (SOMA) 350 mg tablet take 1 tablet by oral route TID prn 30 0 ??? [DISCONTINUED] oxyCODONE-acetaminophen (PERCOCET) 5-325 mg per tablet Take 1 tablet by mouth. ??? multivitamin capsule take 1 capsule by oral route every day 0 0 ??? sucralfate (CARAFATE) suspension 1 gram/10 mL Take 1 g by mouth. No facility-administered encounter medications on file as of 11/16/2018. Review of Systems Respiratory: Negative. Cardiovascular: Negative. Genitourinary: Negative. BP 130/84 Pulse 84 Temp 36.2 ??C (97.2 ??F) Resp 16 Ht 182.2 cm (5' 11.75 ) Wt 101.6 kg (224 lb) SpO2 98% BMI 30.59 kg/m?? Physical Exam Constitutional: She is oriented to person, place, and time. She appears well-developed. HENT: Head: Normocephalic. Right Ear: External ear normal. Left Ear: External ear normal. Nose: Nose normal. Mouth/Throat: Oropharynx is clear and moist. Eyes: Pupils are equal, round, and reactive to light. Conjunctivae and EOM are normal. Neck: Normal range of motion. Neck supple. Cardiovascular: Normal rate, regular rhythm, normal heart sounds and intact distal pulses. Pulmonary/Chest: Effort normal and breath sounds normal. Abdominal: Soft. Bowel sounds are normal. Musculoskeletal: Normal range of motion. Neurological: She is alert and oriented to person, place, and time. Skin: Skin is warm and dry. Psychiatric: She has a normal mood and affect. Her behavior is normal. Judgment and thought contentnormal. Nursing note and vitals reviewed. No visits with results within 6 Month(s) from this visit. Latest known visit with results is: Office Visit on 10/27/2017 Component Date Value ??? WBC 04/20/2018 7.3 ??? RBC, POC 04/20/2018 4.37 ??? Hgb 04/20/2018 10.2* ??? Hct 04/20/2018 34.3* ??? MCV 04/20/2018 78.5* ??? MCH 04/20/2018 23.3* ??? MCHC 04/20/2018 29.7* ??? Rdw 04/20/2018 15.9* ??? Platelets 04/20/2018 298 ??? MPV 04/20/2018 12.1 ??? Neutrophils, abs 04/20/2018 3526 ??? Neutrophil bands, abs 04/20/2018 CANCELED ??? Metamyelocytes, abs 04/20/2018 CANCELED ??? Absolute Myelocytes 04/20/2018 CANCELED ??? Promyelocytes, abs 04/20/2018 CANCELED ??? Lymphocytes, abs 04/20/2018 2876 ??? Monocyte abs 04/20/2018 475 ??? Eosinophils, abs 04/20/2018 372 ??? Basophils, abs 04/20/2018 51 ??? Blast, cell 04/20/2018 CANCELED ??? NRBC, abs 04/20/2018 CANCELED ??? Neutrophils 04/20/2018 48.3 ??? Neutrophilic bands 04/20/2018 CANCELED ??? Neutrophilic metamyelocy* 04/20/2018 CANCELED ??? Myelocytes 04/20/2018 CANCELED ??? Neutrophilic promyelocyt* 04/20/2018 CANCELED ??? Lymphocytes 04/20/2018 39.4 ??? Reactive lymph 04/20/2018 CANCELED ??? Monocytes 04/20/2018 6.5 ??? Eosinophils 04/20/2018 5.1 ??? Basophils 04/20/2018 0.7 ??? Blasts 04/20/2018 CANCELED ??? NRBC 04/20/2018 CANCELED ??? Comment 04/20/2018 CANCELED ??? Glucose 04/20/2018 96 ??? BUN 04/20/2018 12 ??? Creatinine 04/20/2018 0.85 ??? eGFR NON-AFR. DANISH 04/20/2018 82 ??? EGFR 04/20/2018 95 ??? BUN/creat ratio 04/20/2018 NOT APPLICABLE ??? Sodium 04/20/2018 140 ??? Potassium, pl 04/20/2018 4.3 ??? Chloride 04/20/2018 107 ??? CO2 04/20/2018 23 ??? Calcium 04/20/2018 9.0 ??? Protein, sr 04/20/2018 7.0 ??? Albumin 04/20/2018 4.4 ??? GLOBULIN 04/20/2018 2.6 ??? Alb/glob ratio 04/20/2018 1.7 ??? Bilirubin, total 04/20/2018 0.7 ??? Alk phos 04/20/2018 100 ??? AST 04/20/2018 17 ??? ALT (SGPT) 04/20/2018 20 ??? Cholesterol 04/20/2018 208* ??? HDL 04/20/2018 53 ??? Triglycerides 04/20/2018 90 ??? LDL 04/20/2018 136* ??? Chol/HDL ratio 04/20/2018 3.9 ??? Non-HDL, (LDL+VLDL) 04/20/2018 155* ??? TSH 04/20/2018 0.97 ??? Cyanocobalamin (Vit B12) 04/20/2018 568 ??? 25-OH Vit D 04/20/2018 35 Most Recent Immunizations Administered Date(s) Administered ??? Influenza, Quadrivalent, Split, Intramuscular 11/07/2016 ??? Tdap 10/27/2017 Assessment & Plan: Diagnoses and all orders for this visit: Routine physical examination (Primary) Comments: IMMMUNIZATIONS WERE REVIEWED MEDS WERE REVIEWED NO MED CHANGES WERE MADE TODAY Recurrent major depressive disorder, in full remission (CMS/HCC) Low back pain with sciatica, sciatica laterality unspecified, unspecified back pain laterality, unspecified chronicity Comments: ON PERCEOCET AND SOMA PRN Other orders - buPROPion XL (WELLBUTRIN XL) 150 mg 24 hr tablet; Take 1 tablet (150 mg total) by mouth every morning. - oxyCODONE-acetaminophen (PERCOCET) 5-325 mg per tablet; Take 1 tablet by mouth every 8 (eight) hours as needed for pain. - carisoprodol (SOMA) 350 mg tablet; Take 1 tablet (350 mg total) by mouth 3 (three) times a day asneeded for muscle spasms. Laureano Lantigua MD [employer] documented in this encounter Plan of Treatment Not on file documented as of this encounter Visit Diagnoses Diagnosis Routine physical examination- Primary Routine general medical examination at a health care facility Recurrent major depressive disorder, in full remission (CMS/HCC) (HCC) Low back pain with sciatica, sciatica laterality unspecified, unspecified back pain laterality, unspecified chronicity documented in this encounter Discontinued Medications Medication Sig Discontinue Reason Start Date End Da te buPROPion XL (WELLBUTRIN XL) 150 mg 24 hr tablet take 1 tablet by oral route every day Reorder 08/10/2015 11/16/2018 oxyCODONE-acetaminophen (PERCOCET) 5-325 mg per tabletIndications:Pain Take 1 tablet by mouth. Reorder 11/16/2018 carisoprodol (SOMA) 350 mg tablet take 1 tablet by oral route TID prn Reorder 11/04/2013 11/16/2018 documented as of this encounter Historical Medications * This list may reflect changes made after this encounter. ferrous sulfate 325 mg (65 mg of elemental iron) tabletIndication s:Iron Deficiency Anemia Take 1 tablet (325 mg total) by mouth daily with breakfast added in this encounter Care Teams Modeling Analyst Relationship Specialty Start Date End Date Laureano Lantigua MD [address] [place] [address] PCP - General Internal Medicine 07/30/18 Tony Washington MD [address] [facility] [address] [place] [address] Refrigeration Houseman Obstetrics and Gynecology 11/16/18 Anahy Rosales MD [address] [place] [address] [address] [place] [address] Referring Physician Psychiatry 11/16/18 documented as of this encounter
--- OUTSIDE RECORDS SUMMARY | 2024-11-15 03:27 | XMS_ITS | Encounter Summary ---
Author Organization [facility] Address [address] [place] [place] [address] Phone Care Team Providers Care Architectural Manager Name Role Phone Tony Washington MD Unavailable [phone] Anahy Rosales MD Unavailable [phone] Rashawn Herring MD Primary Care Provider + Reason for Visit * Reason Comments Follow-up Encounter Details Date Type Department Care Team (Late st Contact Info) Description 04/20/2018 9:30 AM CDT Office Visit [facility] [address] [place] [address] Laureano Lantigua MD [address] [address] Low back pain with sciatica, sciatica laterality unspecified, unspecified back pain laterality, unspecified chronicity (Primary Dx); Recurrent major depressive disorder, in full remission (CMS/HCC) Social History Tobacco Use Types Packs/Day Years Used Date Smoking Tobacco: Never Smokeless Tobacco: Never Alcohol Use Standard Drinks/Week Comments Yes 0 (1 standard drink = 0.6 oz pur e alcohol) Comments No Sex and Gender Information Value Date Recorded Sex Assigned at Not on file Legal Sex Female 1:37 AM TRANSIT MIX OPERATOR Gender Identity Female 10/03/2023 10:05 AM TRANSIT MIX OPERATOR Sexual Orientation Straight 10/03/2023 10 :05 AM TRANSIT MIX OPERATOR documented as of this encounter Last Filed Vital Signs Vital Sign Reading Time Taken Comments Blood Pressure 120/80 04/20/2018 9:33 AM CDT Pulse 80 04/20/2018 9:33 AM CDT Temperature 36.3 ??C (97.3 ??F) 04/20/2018 9:33 AM CD T Respiratory Rate 16 04/20/2018 9:33 AM CDT Oxygen Saturation 98% 04/20/2018 9:33 AM CDT Inhaled Oxygen Concentration - - Weight 98.4 kg (217 lb) 04/20/2018 9:33 AM CDT Height - - Body Mass Index 29.43 11/11/2017 3:16 PM TRANSIT MIX OPERATOR documented in this encounter Patient Instructions * Patient Instructions* Laureano Lantigua MD - 04/20/2018 9:30 AM CDT RTC IN SIX MONTHS documented in this encounter Progress Notes * Laureano Lantigua MD - 04/20/2018 9:30 AM CDT Subjective/Objective Patient ID: Finesse Ramirez is a 48 y.o. female. IMMUNIZATIONS WERE REVIEWED Chief Complaint Follow-up HPI Review of Systems Physical Exam Constitutional: She appears well-developed and well-nourished. HENT: Head: Normocephalic. Right Ear: External ear normal. Left Ear: External ear normal. Nose: Nose normal. Mouth/Throat: Oropharynx is clear and moist. Eyes: Conjunctivae and EOM are normal. Pupils are equal, round, and reactive to light. Neck: Normal range of motion. Neck supple. Cardiovascular: Normal rate, regular rhythm, normal heart sounds and intact distal pulses. Pulmonary/Chest: Effort normal and breath sounds normal. Abdominal: Soft. Bowel sounds are normal. Musculoskeletal: Normal range of motion. Neurological: She is alert. Nursing note and vitals reviewed. Assessment/Plan Diagnoses and all orders for this visit: Low back pain with sciatica, sciatica laterality unspecified, unspecified back pain laterality, unspecified chronicity (Primary) Recurrent major depressive disorder, in full remission (CMS/[facility]) documented in this encounter Plan of Treatment Not on file documented as of this encounter Visit Diagnoses Diagnosis Low back pain with sciatica, sciatica laterality unspecified, unspecified back pain laterality, unspecified chronicity- Primary Recurrent major depressive disorder, in full remission (CMS/HCC) (HCC) documented in this encounter Discontinued Medications Medication Sig Discontinue Reason Start Date End Da te valACYclovir (VALTREX) 1 gram tablet Take 1 tablet (1,000 mg total) by mouth daily. 06/23/2017 04/20/2018 omeprazole OTC (PriLOSEC OTC) 20 mg EC tablet Take 20 mg by mouth daily. 04/20/2018 documented as of this encounter Historical Medications * This list may reflect changes made after this encounter. oxyCODONE-acetami nophen (PERCOCET) 5-325 mg per tabletIndications :Pain Take 1 tablet by mouth. 11/16/2018 sucralfate (CARAFATE) suspension 1 gram/10 mL Take 1 g by mouth. 03/31/2018 01/22/2022 TRINTELLIX 10 mg tabletIndications :major depressive disorder Take 10 mg by mouth daily. 1 03/18/2018 11/22/2019 omeprazole (PriLOSEC) 20 mg capsule TAKE 1 CAPSULE BY MOUTH qd 5 03/31/2018 09/26/2022 added in this encounter Care Teams Architectural Manager Relationship Specialty [place] [address] [address] [place] [address] PCP - General Surgery 04/20/18 07/29/18 Tony Washington MD [address] [place] [address] [address] [place] [address] Party Plan Sales Director Obstetrics and Gynecology 04/20/18 07/29/18 Anahy Rosales MD [address] [facility] [address] [place] [address] Referring Physician Psychiatry 04/20/18 07/29/18 documented as of this encounter
--- OUTSIDE RECORDS SUMMARY | 2024-11-15 03:27 | XMS_ITS | Encounter Summary ---
Author Organization [facility] Address [address] [place] [address] Phone Care Team Providers Care Ventilation Equipment Tender Name Role Phone Laureano Lantigua MD Primary Care Provider [phone]- [phone] Reason for Visit * Reason Onset Date Comments Travel Consult 01/22/2018 Encounter Details Date Type Department Care Team (Late st Contact Info) Description 01/22/2018 Telephone [facility] [address] [place] [address] Laureano Lantigua MD [address] [address] Travel Consult Social History Tobacco Use Types Packs/Day Years Used Date Smoking Tobacco: Never Smokeless Tobacco: Never Alcohol Use Standard Drinks/Week Comments Yes 0 (1 standard drink = 0.6 oz pur e alcohol) Comments No Sex and Gender Information Value Date Recorded Sex Assigned at Not on file Legal Sex Female 1:37 AM QUALITY INSPECTOR Gender Identity Female 10/03/2023 10:05 AM QUALITY INSPECTOR Sexual Orientation Straight 10/03/2023 10 :05 AM QUALITY INSPECTOR documented as of this encounter Miscellaneous Notes * Telephone Encounter - Prema Edmond LPN - 01/22/2018 11:39 AM QUALITY INSPECTOR Contacted pt spouse and notified to contact [facility] vaccines Voices understanding. ITY INSPECTOR * Telephone Encounter - Selin Real - 01/22/2018 9:46 AM CST [place] is traveling out [place] the [place] She thinks she is needing to get the hep c Not sure if it is hep c or hep b Pt wants to know if she needs to get the injections here or what does she need to do. req a call back ITY INSPECTOR documented in this encounter Plan of Treatment Not on file documented as of this encounter Visit Diagnoses Not on filedocumented in this encounter Care Teams Ventilation Equipment Tender Relationship Specialty Start Date End Date Laureano Lantigua MD [address] [place] [address] PCP - General 02/14/17 04/19/18 documented as of this encounter
--- OUTSIDE RECORDS SUMMARY | 2024-11-15 03:27 | XMS_ITS | Encounter Summary ---
Author Organization [facility] Healthcare Address [address] [place] [address] Care Team Providers Care Virtual Recruiter Name Role Phone Laureano Lantigua MD Primary Care Provider [phone]- [phone] Encounter Details Date Type Department Care Team (Late st Contact Info) Description 09/19/2015 8:04 AM [facility] FLAKE MILLER - 09/19/2015 11:59 PM [facility] Hospital Encounter [facility] Laureano Lantigua MD [address] [place] [address] Vitamin D deficiency Social History Tobacco Use Types Packs/Day Years Used Date Smoking Tobacco: Never Alcohol Use Standard Drinks/Week Comments Yes 0 (1 standard drink = 0.6 oz pur e alcohol) Comments Unknown Sex and Gender Information Value Date Recorded Sex Assigned at Not on file Legal Sex Female 1:37 AM 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
--- OUTSIDE RECORDS SUMMARY | 2024-11-15 03:27 | XMS_ITS | Encounter Summary ---
Author Organization [facility] Healthcare Address [address] [place] [address] Care Team Providers Care Barrel Charrer Name Role Phone Laureano Lantigua MD Primary Care Provider [phone]- [phone] Encounter Details Date Type Department Care Team (Late st Contact Info) Description 07/15/2017 5:40 PM CDT - 07/15/2017 7:59 PM CDT Emergency [facility] Emergency Department [address] [place] [address] Roselia Baig Discharge Disposition: Discharge to home or self care Social History Tobacco Use Types Packs/Day Years Used Date Smoking Tobacco: Never Smokeless Tobacco: Never Alcohol Use Standard Drinks/Week Comments Yes 0 (1 standard drink = 0.6 oz pur e alcohol) Comments No Sex and Gender Information Value Date Recorded Sex Assigned at Not on file Legal Sex Female 1:37 AM 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 0 10/26/2010 3 buPROPion XL (WELLBUTRIN XL) 150 mg 24 hr tablet take 1 tablet by oral route every day 0 0 08/10/2015 8 carisoprodol (SOMA) 350 mg tablet take 1 tablet by oral route TID prn 30 0 11/04/2013 8 choriogonadotrop in yandy,humrec (OVIDREL) 250 mcg/0.5 mL injection inject 0.5 milliliter by subcutaneous route every day for 1 day 1 Syringe 0 02/05/2016 7 cyanocobalamin (vitamin B-12) 500 mcg tablet 500 mcg. 0 0 08/10/2015 0 multivitamin (MULTIPLE VITAMINS) tablet tablet take 1 tablet by oral route every day with food 0 0 01/16/2015 3 multivitamin capsule take 1 capsule by oral route every day 0 0 08/10/2015 0 valACYclovir (VALTREX) 1 gram tablet Take 1 tablet (1,000 mg total) by mouth daily. 30 tablet 3 06/23/2017 8 documented as of this encounter Discharge Disposition Disposition Code Departure Means Destination Discharge to home or self care documented in this encounter Plan of Treatment Not on file documented as of this encounter Procedures Procedure Name Priority Date/Time Associated Diagnosis Comments XR SPINE LUMBAR ROUTINE Routine 07/16/2017 12:28 AM CDT URINALYSIS AND REFLEX TO MICROSCOPIC AND CULTURE STAT 07/15/2017 6:25 PM CDT HCG, URINE, QUALITATIVE STAT 07/15/2017 6:25 PM CDT URINALYSIS, MICROSCOPIC ONLY STAT 07/15/2017 6:25 PM CDT URINE CULTURE STAT 07/15/2017 6:25 PM CDT DISCHARGE LABORATORY CUMULATIVE REPORT 07/15/2017 12:00 AM CDT documented in this encounter Results * XR Spine Lumbar Routine (07/16/2017 12:28 AM CDT) Anatomical Region Laterality Modality L-spine N/A Radiographic Lindsay ging 07/16/2017 12:2 8 AM CDT Narrative 07/16/2017 12:28 AM CDT XR Lumbar Spine Routine ??[id number] ??Acc#: ??[id number] DATE OF EXAM: ??Jul 15 2017 ?? XR Lumbar Spine Routine ??[id number] HISTORY: Back Pain. COMPARISON: 05/10/2011. FINDINGS: Postsurgical changes L5-S1, with bilateral pedicle screws and associated rods. ??Postsurgical change at the disc space, with loss of height of the L5-S1 disc space, as previously. ??Mild degenerative changes are also noted. ??Evidence of degenerative disc disease at L3-L4. ??Vertebral body heights are maintained. ??No acute fracture identified. ??Calcific focus right upper quadrant, likely gallstone. IMPRESSION: 1. ??POSTSURGICAL CHANGES L5-S1. 2. ??MILD DEGENERATIVE CHANGES. 3. ??CALCIFIC FOCUS RIGHT UPPER QUADRANT, LIKELY GALLSTONE. Electronically signed by: Carlyle Huertas M.D Interpreting Physician: ??CARLYLE HUERTAS M.D. ??Read on: ??Jul 15 2017 ??8:59P Transcribed by: ??PSC ??On: Jul 15 2017 ??8:57P Approved Electronically by: ??CARLYLE HUERTAS M.D. ??on: ??Jul 15 2017 ??8:57P Ordering DR: BRANT SHAFER Attending DR: ROSELIA BAIG Attending: ??ROSELIA BAIG Requesting: ??BRANT SHAFER Requesting Fax: ??-- Attending Fax: ??-- Attending ID: ??[id number] Requesting ID: ??[id number] Report To 1 ID: ??[id number] Report To 1 Name: ??ROSELIA BAIG Report To 1 FAX: ??-- NextGen Order #: ?? Procedure Note Miscellaneous, Not In File / Provider, MD Kanu - 07/15/2017 XR Lumbar Spine Routine [id number] Acc#: [id number] DATE OF EXAM: Jul 15 2017 XR Lumbar Spine Routine [id number] HISTORY: Back Pain. COMPARISON: 05/10/2011. FINDINGS: Postsurgical changes L5-S1, with bilateral pedicle screws and associated rods. Postsurgical change at the disc space, with loss of height of the L5-S1 disc space, as previously. Mild degenerative changes are also noted. Evidence of degenerative disc disease at L3-L4. Vertebral body heights are maintained. No acute fracture identified. Calcific focus right upper quadrant, likely gallstone. IMPRESSION: 1. POSTSURGICAL CHANGES L5-S1. 2. MILD DEGENERATIVE CHANGES. 3. CALCIFIC FOCUS RIGHT UPPER QUADRANT, LIKELY GALLSTONE. Electronically signed by: Carlyle Huertas M.D Interpreting Physician: CARLYLE HUERTAS M.D. Read on: Jul 15 2017 8:59P Transcribed by: [facility] On: Jul 15 2017 8:57P Approved Electronically by: CARLYLE HUERTAS M.D. on: Jul 15 2017 8:57P Ordering DR: BRANT SHAFER Attending DR: ROSELIA BAIG Attending: ROSELIA BAIG Requesting: BRANT SHAFER Requesting Fax: -- Attending Fax: -- Attending ID: [id number] Requesting ID: [id number] Report To 1 ID: [id number] Report To 1 Name: ROSELIA BAIG Report To 1 FAX: -- NextGen Order #: us Not In File Miscellaneous IMG XR PROCEDURES Abril l Result * Urine culture (07/15/2017 6:25 PM CDT) Report Final Report: Insignifican t growth based on current clinical standards. DARIUS RODRIGUEZ) Comment:Testing performed by : [facility], [address] [facility] [place] [address] Urine, clean voided 07/15/2017 6:25 PM CDT 07/15/2017 10:17 PM CDT Narrative DARIUS RODRIGUEZ) - 07/16/2017 3:11 PM CDT us Roselia Baig LAB MICROBIOLOGY - GENERAL OR DERABLES Final Result DARIUS GARCIA ([place]) [address] [facility] [place] [address] * HCG, urine, qualitative (07/15/2017 6:25 PM CDT) HCG, ur Negative Negative [facility] ([place]) Urine 07/15/2017 6:25 PM CDT 07/15/2017 6:46 PM CDT Brant FERNANDEZ LAB URINE ORDERABLES Fi nal Result Performing Organization Address [facility] Co de Phone Number [facility] ([place]) [address] [facility] [place] [address] * (ABNORMAL) Urinalysis, microscopic only (07/15/2017 6:25 PM CDT) RBC, ur 2-5(A) 0 - 2 [facility] ([place]) WBC, ur 2-5(A) 0 - 2 [facility] ([place]) Bacteria, ur 1+(A) Negative [facility] ([place]) Hyaline casts, ur 0-2 0 - 2 [facility] ([place]) Epithelial cells, ur 2-5(A) 0 - 2 [facility] ([place]) Urine 07/15/2017 6:25 PM CDT 07/15/2017 6:31 PM CDT us Roselia Baig LAB URINE ORDERABLES Final Re sult Performing Organization Address [facility] Co de Phone Number [facility] ([place]) [address] [facility] [place] [address] * (ABNORMAL) Urinalysis reflex to microscopic and culture (07/15/2017 6:25 PM CDT) Color, ur Yellow Yellow [facility] ([place]) Clarity, ur Clear Clear [facility] ([place]) Specific gravity, ur 1.022 1.003 - 1.030 [facility] ([place]) Comment:Normal Ranges: 1.003 -1.030 pH, ur 6.5 4.5 - 8.0 [facility] ([place]) Comment:Normal ranges: 4.5-8 .0 Protein, ur ql Negative Negative mg/dL [facility] ([place]) Glucose, ur ql Negative Negative mg/dL [facility] ([place]) Ketones, ur Negative Negative [facility] ([place]) Bilirubin, ur Negative Negative [facility] ([place]) Blood, ur Negative Negative [facility] ([place]) Urobilinogen, ur 0.2 0.2 - 1.0 [facility] ([place]) Comment:Normal Ranges: 0.2-1 .0 EU/dL Nitrites, ur Negative Negative [facility] ([place]) Leukocyte esterase, ur Small(A) Negative [facility] ([place]) Urine 07/15/2017 6:25 PM CDT 07/15/2017 6:31 PM CDT Roselia Baig LAB MICROBIOLOGY - GENERAL OR DERABLES Final Result [facility] ([place]) [address] [facility] [place] [address] * DISCHARGE LABORATORY CUMULATIVE REPORT (07/15/2017 12:00 AM CDT) Narrative 07/15/2017 12:00 AM CDT Ordered by an unspecified provider. Historical Provider LAB BLOOD ORDERABLES Abril l Result documented in this encounter Visit Diagnoses Not on filedocumented in this encounter Care Teams Barrel Charrer Relationship Specialty Start Date End Date Laureano Lantigua MD [address] [place] [address] PCP - General 02/14/17 04/19/18 documented as of this encounter
--- OUTSIDE RECORDS SUMMARY | 2024-11-15 03:27 | XMS_ITS | Encounter Summary ---
Author Organization [facility] Address [address] [address] Care Team Providers Care Benefit Authorizer Name Role Phone Laureano Lantigua MD Primary Care Provider Tony [place] MD Unavailable [phone] Anahy Rosales MD Unavailable [phone] Encounter Details Date Type Department Care Team (Late st Contact Info) Description 11/18/2018 Telephone [facility] [address] [place] [address] Laureano Lantigua MD [address] [address] Social History Tobacco Use Types Packs/Day Years Used Date Smoking Tobacco: Never Smokeless Tobacco: Never Alcohol Use Standard Drinks/Week Comments Yes 0 (1 standard drink = 0.6 oz pur e alcohol) Comments No Sex and Gender Information Value Date Recorded Sex Assigned at Not on file Legal Sex Female 1:37 AM FORM LAYER Gender Identity Female 10/03/2023 10:05 AM FORM LAYER Sexual Orientation Straight 10/03/2023 10 :05 AM FORM LAYER documented as of this encounter Miscellaneous Notes * Telephone Encounter - Carol Frank - 11/18/2018 2:31 PM CST [facility] notified to resubmit lab order with DX E55.9 for (Vit D).Spoke with Dre regarding invoice #[id number]. LAYER documented in this encounter Plan of Treatment Not on file documented as of this encounter Visit Diagnoses Not on filedocumented in this encounter Care Teams Benefit Authorizer Relationship Specialty Start Date End Date Laureano Lantigua MD [address] [place] [address] PCP - General Internal Medicine 07/30/18 Tony Washington MD [address] [place] [address] [address] [place] [address] Reclamation Worker Obstetrics and Gynecology 11/16/18 Anahy Rosales MD [address] [place] [address] [address] [place] [address] Referring Physician Psychiatry 11/16/18 documented as of this encounter
--- OUTSIDE RECORDS SUMMARY | 2024-11-15 03:27 | XMS_ITS | Encounter Summary ---
Author Organization [facility] Address [address] [place] [address] Phone Care Team Providers Care Court Officer Name Role Phone Laureano Lantigua MD Primary Care Provider [phone]- [phone] Reason for Visit * Reason Comments Follow-up 6 mo Encounter Details Date Type Department Care Team (Late st Contact Info) Description 10/27/2017 2:20 PM SHIP/REC/DOC CONTROL Office Visit [facility] [address] [place] [address] Laureano Lantigua MD [address] [place] [address] Mild intermittent asthma without complication (Primary Dx); Essential hypertension; Recurrent major depressive disorder, in full remission (CMS/HCC); Attention deficit hyperactivity disorder (ADHD), predominantly inattentive type; Acute right-sided low back pain with sciatica, sciatica laterality unspecified; B12 deficiency; Vitamin D deficiency Social History Tobacco Use Types Packs/Day Years Used Date Smoking Tobacco: Never Smokeless Tobacco: Never Alcohol Use Standard Drinks/Week Comments Yes 0 (1 standard drink = 0.6 oz pur e alcohol) Comments No Sex and Gender Information Value Date Recorded Sex Assigned at Not on file Legal Sex Female 1:37 AM SHIP/REC/DOC CONTROL Gender Identity Female 10/03/2023 10:05 AM SHIP/REC/DOC CONTROL Sexual Orientation Straight 10/03/2023 10 :05 AM SHIP/REC/DOC CONTROL documented as of this encounter Last Filed Vital Signs Vital Sign Reading Time Taken Comments Blood Pressure 150/92 10/27/2017 2:24 PM SHIP/REC/DOC CONTROL Pulse 89 10/27/2017 2:24 PM SHIP/REC/DOC CONTROL Temperature 36.7 ??C (98.1 ??F) 10/27/2017 2:24 PM CS T Respiratory Rate 20 10/27/2017 2:24 PM SHIP/REC/DOC CONTROL Oxygen Saturation 98% 10/27/2017 2:24 PM SHIP/REC/DOC CONTROL Inhaled Oxygen Concentration - - Weight 97.5 kg (215 lb) 10/27/2017 2:24 PM SHIP/REC/DOC CONTROL Height - - Body Mass Index 29.16 02/21/2017 10:11 AM CDT documented in this encounter Patient Instructions * Patient Instructions* Laureano Lantigua MD - 10/27/2017 2:20 PM SHIP/REC/DOC CONTROL A prescription for soma was given to her today #30 Her percocet was filled today #30 Cbc/cmp/flp/tsh/b12/vit d anytime /REC/DOC CONTROL /REC/DOC CONTROL documented in this encounter Progress Notes * Laureano Lantigua MD - 10/27/2017 2:20 PM CST Subjective/Objective Patient ID: Finesse Ramirez is a 47 y.o. female. Chief Complaint Follow-up (6 mo) tdap today Flu shot she is good HPI Review of Systems Physical Exam Constitutional: She is oriented to person, place, and time. She appears well- developed and well-nourished. HENT: Head: Normocephalic and atraumatic. Right Ear: External ear normal. Left Ear: External ear normal. Nose: Nose normal. Mouth/Throat: Oropharynx is clear and moist. She is getting a dental implant Eyes: Conjunctivae and EOM are normal. Pupils are equal, round, and reactive to light. Pt has an eye doctor Neck: Normal range of motion. Neck supple. Cardiovascular: Normal rate, regular rhythm, normal heart sounds and intact distal pulses. Pulmonary/Chest: Effort normal and breath sounds normal. Abdominal: Soft. Bowel sounds are normal. Genitourinary: Genitourinary Comments: Pt saw dr thompson Musculoskeletal: Normal range of motion. She has been released by dr jones She goes and sees dr moser Neurological: She is alert and oriented to person, place, and time. Skin: Skin is warm and dry. Psychiatric: She has a normal mood and affect. Her behavior is normal. Judgment and thought contentnormal. She sees a counsellar Nursing note and vitals reviewed. Assessment/Plan Diagnoses and all orders for this visit: Mild intermittent asthma without complication (Primary) Comments: continue the albuterol prn Essential hypertension Comments: bp is mildly up Recurrent major depressive disorder, in full remission (CMS/HCC) Comments: she is on wellbutrin daily Attention deficit hyperactivity disorder (ADHD), predominantly inattentive type Comments: pt was referred to psychiatry but they did not get along, she was seeing dr carey Acute right-sided low back pain with sciatica, sciatica laterality unspecified Comments: on prn on prn percocet Other orders - albuterol HFA (PROVENTIL HFA,VENTOLIN HFA) 90 mcg/actuation inhaler; - buPROPion XL (WELLBUTRIN XL) 150 mg 24 hr tablet; 1 tablet (150 mg total). - carisoprodol (SOMA) 350 mg tablet; 1 tablet (350 mg total). /REC/DOC CONTROL documented in this encounter Plan of Treatment Not on file documented as of this encounter Procedures Procedure Name Priority Date/Time Associated Diagnosis Comments CBC WITH AUTO DIFFERENTIAL Routine 04/20/2018 8:08 AM CDT Essential hypertension VITAMIN D 25 HYDROXY Routine 04/20/2018 8:08 AM CDT Vitamin D deficiency TSH Routine 04/20/2018 8:08 AM CDT Recurrent major depressive disorder, in full remission (CMS/HCC) Attention deficit hyperactivity disorder (ADHD), predominantly inattentive type B12 deficiency VITAMIN B12 Routine 04/20/2018 8:08 AM CDT B12 deficiency LIPID PANEL Routine 04/20/2018 8:08 AM CDT Essential hypertension COMPREHENSIVE METABOLIC PANEL Routine 04/20/2018 8:08 AM CDT Essential hypertension documented in this encounter Results * Vitamin D 25 hydroxy (04/20/2018 8:08 AM CDT) Pathologist [facility] [place] Vitamin D 25-OH 35 30 - 100 ng/mL [place] - [place] Comment: Vitamin D Status ? 25-OH Vitamin D: Deficiency: ?<20 ng/mL Insufficiency: ? 20 - 29 ng/mL Optimal: ? > or = 30 ng/mL For 25-OH Vitamin D testing on patients on D2-supplementation and patients for whom quantitation of D2 and D3 fractions is required, the QuestAssureD(TM) 25-OH VIT D, (D2,D3), LC/MS/MS is recommended: order code 13837 (patients >2yrs). For more information on this test, go to: http://education.[employer]/faq/GBX306 (This link is being provided for informational/educational purposes only.) Blood specimen (specimen) 04/20/2018 8:08 AM CDT 04/20/2018 8:09 AM CDT Narrative [facility] - 04/21/2018 6:08 AM CDT FASTING:YES FASTING: YES Resulting Agency Comment Performing Organization Information: ?Site ID: [place] ?Name: [facility] ?Address: [address] [place] [address] ?Director: Alfredo Dc D.O., MPH us Laureano Lantigua MD LAB BLOOD ORDERABLES Final Result [facility] [place] [facility] [place] * Vitamin B12 (04/20/2018 8:08 AM CDT) Vitamin B12 568 200 - 1,100 pg/mL [facility] Blood specimen (specimen) 04/20/2018 8:08 AM CDT 04/20/2018 8:09 AM CDT Narrative [facility] - 04/21/2018 6:08 AM CDT FASTING:YES FASTING: YES Resulting Agency Comment Performing Organization Information: ?Site ID: [place] ?Name: [facility] ?Address: [address] [place] [address] ?Director: Alfredo Dc D.O., MPH us Laureano Lantigua MD LAB BLOOD ORDERABLES Final Result Performing Organization Address City/State/[facility] Co de Phone Number [facility] [place] * TSH (04/20/2018 8:08 AM CDT) TSH 0.97 mIU/L [facility] [place] [facility] Comment: ?Reference Range ?> or = 20 Years ??0.40-4.50 ? Ranges ?First trimester ?0.26-2.66 ?Second trimester ?? 0.55-2.73 ?Third trimester ?0.43-2.91 Blood specimen (specimen) 04/20/2018 8:08 AM CDT 04/20/2018 8:09 AM CDT Narrative [facility] - 04/21/2018 6:08 AM CDT FASTING:YES FASTING: YES Resulting Agency Comment Performing Organization Information: ?Site ID: [place] ?Name: [facility] ?Address: [address] [place] [address] ?Director: Alfredo Dc D.O., MPH Laureano Lantigua MD LAB BLOOD ORDERABLES Final Result Performing Organization Address City/[facility]/ZIP Co de Phone Number [facility] [place] * (ABNORMAL) Lipid panel (04/20/2018 8:08 AM CDT) Cholesterol 208(H) <200 mg/dL [facility] [place] HDL 53 >50 mg/dL [facility] [place] Triglycerides 90 <150 mg/dL [facility] [place] LDL 136(H) mg/dL (calc) [facility] [place] Comment: Reference range: <100 Desirable range <100 mg/dL for primary prevention; ?? <70 mg/dL for patients with CHD or diabetic patients with > or = 2 CHD risk factors. LDL-C is now calculated using the Red calculation, which is a validated novel method providing better accuracy than the Friedewald equation in the estimation of LDL-C. Hayden SS et al. UYEN. 2013;310(19): 7494-7205 (http://education.[employer]/faq/RLA855) Chol/HDL ratio 3.9 <5.0 (calc) [facility] [place] Non-HDL, (LDL+VLDL) 155(H) <130 mg/dL (calc) [facility] [place] Comment: For patients with diabetes plus 1 major ASCVD risk factor, treating to a non-HDL-C goal of <100 mg/dL (LDL-C of <70 mg/dL) is considered a therapeutic option. Blood specimen (specimen) 04/20/2018 8:08 AM CDT 04/20/2018 8:09 AM CDT Narrative [facility] - 04/21/2018 6:08 AM CDT FASTING:YES FASTING: YES Resulting Agency Comment Performing Organization Information: ?Site ID: [place] ?Name: [facility] ?Address: [address] [facility] [place] [place] [address] ?Director: Alfredo Dc D.O., MPH Laureano Lantigua MD LAB BLOOD ORDERABLES Final Result Performing Organization Address City/[facility]/ZIP Co de Phone Number [facility] [place] * Comprehensive metabolic panel (04/20/2018 8:08 AM CDT) Glucose 96 65 - 99 mg/dL [facility] [place] Comment: ? Fasting reference interval BUN 12 7 - 25 mg/dL [facility] [place] Creatinine 0.85 0.50 - 1.10 mg/dL [facility] [place] eGFR NON-AFR. BERMUDIAN 82 > OR = 60 mL/min/1. 73m2 [facility] [place] EGFR 95 > OR = 60 mL/min/1. 73m2 [facility] [place] BUN/creat ratio NOT APPLICABLE 6 - 22 (calc) [facility] [place] Sodium 140 135 - 146 mmol/L [facility] [place] Potassium, pl 4.3 3.5 - 5.3 mmol/L [facility] [place] Chloride 107 98 - 110 mmol/L [facility] [place] CO2 23 20 - 31 mmol/L [facility] [place] Calcium 9.0 8.6 - 10.2 mg/dL [facility] [place] Protein, sr 7.0 6.1 - 8.1 g/dL [facility] [place] Albumin 4.4 3.6 - 5.1 g/dL [facility] [place] GLOBULIN 2.6 1.9 - 3.7 g/dL (calc) [facility] [place] Alb/glob ratio 1.7 1.0 - 2.5 (calc) [facility] [place] Bilirubin, total 0.7 0.2 - 1.2 mg/dL [facility] [place] Alk phos 100 33 - 115 U/L [facility] [place] AST 17 10 - 35 U/L [facility] [place] ALT (SGPT) 20 6 - 29 U/L [facility] [place] Blood specimen (specimen) 04/20/2018 8:08 AM CDT 04/20/2018 8:09 AM CDT Narrative [facility] - 04/21/2018 6:08 AM CDT FASTING:YES FASTING: YES Resulting Agency Comment Performing Organization Information: ?Site ID: [place] ?Name: [facility] ?Address: [id number] [place] [address] [place] [address] ?Director: Alfredo Dc D.O., MPH us Laureano Lantigua MD LAB BLOOD ORDERABLES Final Result [facility] [place] * (ABNORMAL) CBC with auto differential (04/20/2018 8:08 AM CDT) WBC 7.3 3.8 - 10.8 Thousand/ uL [facility] [place] RBC, POC 4.37 3.80 - 5.10 Million/u L [facility] [place] Hgb 10.2(L) 11.7 - 15.5 g/dL [facility] [place] Hct 34.3(L) 35.0 - 45.0 % [facility] [place] MCV 78.5(L) 80.0 - 100.0 fL [facility] [place] MCH 23.3(L) 27.0 - 33.0 pg [facility] [place] MCHC 29.7(L) 32.0 - 36.0 g/dL [facility] [place] Rdw 15.9(H) 11.0 - 15.0 % [facility] [place] Platelets 298 140 - 400 Thousand/ uL [facility] [place] MPV 12.1 7.5 - 12.5 fL [facility] [place] Neutrophils, abs 3,526 1,500 - 7,800 cells/uL [facility] [place] Neutrophil bands, abs CANCELED 0 - 750 cells/uL [facility] [place] Comment:Result canceled by t he ancillary Metamyelocytes, abs CANCELED 0 cells/uL [facility] [place] Comment:Result canceled by t he ancillary Absolute Myelocytes CANCELED 0 cells/uL [facility] [place] Comment:Result canceled by t he ancillary Promyelocytes, abs CANCELED 0 cells/uL [facility] [place] Comment:Result canceled by t he ancillary Lymphocytes, abs 2,876 850 - 3,900 cells/uL [facility] [place] Monocyte abs 475 200 - 950 cells/uL [facility] [place] Eosinophils, abs 372 15 - 500 cells/uL [facility] [place] Basophils, abs 51 0 - 200 cells/uL [facility] [place] Blast, cell CANCELED 0 cells/uL [facility] [place] Comment:Result canceled by t he ancillary NRBC abs CANCELED 0 cells/uL [facility] [place] Comment:Result canceled by t he ancillary Neutrophils 48.3 % [facility] [place] Neutrophilic bands CANCELED % [facility] [place] Comment:Result canceled by t he ancillary Metamyelocyte pct CANCELED % [facility] [place] Comment:Result canceled by t he ancillary Myelocyte pct CANCELED % [facility] [place] Comment:Result canceled by t he ancillary Promyelocyte pct CANCELED % [facility] [place] Comment:Result canceled by t he ancillary Lymphocyte pct 39.4 % [facility] [place] Reactive lymph CANCELED 0 - 10 % [facility] [place] Comment:Result canceled by t he ancillary Monocytes 6.5 % [facility] [place] Eosinophils 5.1 % [facility] [place] Basophils 0.7 % [facility] [place] Blast pct CANCELED % [facility] [place] Comment:Result canceled by t he ancillary NRBC CANCELED 0 /100 WBC [facility] [place] Comment:Result canceled by t he ancillary Comment CANCELED [facility] [place] Comment:Result canceled by t he ancillary Blood specimen (specimen) 04/20/2018 8:08 AM CDT 04/20/2018 8:09 AM CDT Narrative [facility] - 04/21/2018 6:08 AM CDT FASTING:YES FASTING: YES Resulting Agency Comment Performing Organization Information: ?Site ID: [place] ?Name: [facility] ?Address: [facility] [place] [address] ?Director: Alfredo Dc D.O. MPH us Laureano Lantigua MD LAB BLOOD ORDERABLES Final Result [facility] [place] documented in this encounter Visit Diagnoses Diagnosis Mild intermittent asthma without complication- Primary Essential hypertension Unspecified essential hypertension Recurrent major depressive disorder, in full remission (CMS/HCC) (HCC) Attention deficit hyperactivity disorder (ADHD), predominantly inattentive type Acute right-sided low back pain with sciatica, sciatica laterality unspecified B12 deficiency Vitamin D deficiency documented in this encounter Discontinued Medications Medication Sig Discontinue Reason Start Date End Da te choriogonadotropin yandy,humrec (OVIDREL) 250 mcg/0.5 mL injection inject 0.5 milliliter by subcutaneous route every day for 1 day 02/05/2016 10/27/2017 documented as of this encounter Historical Medications * This list may reflect changes made after this encounter. omeprazole OTC (PriLOSEC OTC) 20 mg EC tablet Take 20 mg by mouth daily. 04/20/2018 added in this encounter Orders Immunization/Injection Count Last Ordered Date First Ordered Date TDAP VACCINE GREATER THAN OR EQUAL TO 7YO IM 1 10/27/2017 documented in this encounter Care Teams Court Officer Relationship Specialty Start Date End Date Laureano Lantigua MD [address] [place] [address] PCP - General 02/14/17 04/19/18 documented as of this encounter
--- OUTSIDE RECORDS SUMMARY | 2024-11-15 03:27 | XMS_ITS | Encounter Summary ---
Author Organization [facility] Healthcare Address [address] [place] [address] Care Team Providers Care Refining Machine Operator Name Role Phone Laureano Lantigua MD Primary Care Provider [phone] Encounter Details Date Type Department Care Team (Latest Contact Info) Description 05/18/2014 8:49 AM CDT - 05/18/2014 2:15 PM CDT Hospital Encounter [facility] Sean Lee, DPM [address] [place] [address] Lesion of plantar nerve; Other acquired hammer toe; Exostosis; Essential hypertension; Asthma Social History Tobacco Use Types Packs/Day Years Used Date Smoking Tobacco: Never Alcohol Use Standard Drinks/Week Comments Yes 0 (1 standard drink = 0.6 oz pur e alcohol) Comments Unknown Sex and Gender Information Value Date Recorded Sex Assigned at Not on file Legal Sex Female 1:37 AM BUTCHER SUPERVISOR Gender Identity Female 10/03/2023 10:05 AM BUTCHER SUPERVISOR Sexual Orientation Straight 10/03/2023 10 :05 AM BUTCHER SUPERVISOR documented as of this encounter Last Filed Vital Signs Vital Sign Reading Time Taken Comments Blood Pressure 109/62 05/12/2014 3:18 PM CDT Pulse 70 05/12/2014 3:18 PM CDT Temperature 36.6 ??C (97.9 ??F) 05/12/2014 3:18 PM CD T Respiratory Rate - - Oxygen Saturation 96% 05/12/2014 3:18 PM CDT Inhaled Oxygen Concentration - - Weight 122 kg (269 lb) 05/12/2014 3:18 PM CDT Height 182.9 cm (6') 05/12/2014 3:18 PM CDT Body Mass Index 36.48 05/12/2014 3:18 PM CDT documented in this encounter Medications [...] 0 10/26/2010 3 carisoprodol (SOMA) 350 mg tablet take 1 tablet by oral route TID prn 30 0 11/04/2013 8 carisoprodol (SOMA) 350 mg tablet take 1 tablet by oral route TID prn 45 0 11/04/2013 7 oxyCODONE-acetam inophen (PERCOCET) 5-325 mg per tablet take 1 tablet by oral route qday PRN #30 30 0 03/24/2014 7 oxyCODONE-acetam inophen (PERCOCET) 5-325 mg per tablet take 1 tablet by oral route qday PRN #30 30 0 03/24/2014 7 documented as of this encounter Plan of Treatment Not on file documented as of this encounter Procedures Procedure Name Priority Date/Time Associated Diagnosis Comments SCAN - PATHOLOGY 05/19/2014 12:0 0 AM CDT documented in this encounter Results * SCAN - PATHOLOGY (05/19/2014 12:00 AM CDT) Narrative 05/19/2014 12:00 AM CDT Ordered by an unspecified provider. us Historical Provider Final Res ult documented in this encounter Visit Diagnoses Diagnosis Lesion of plantar nerve Other acquired hammer toe Exostosis Exostosis of unspecified site Essential hypertension Unspecified essential hypertension Asthma Unspecified asthma documented in this encounter Care Teams Refining Machine Operator Relationship Specialty Start Date End Date Laureano Lantigua MD [address] [place] [address] PCP - General 08/13/11 11/22/14 documented as of this encounter
--- OUTSIDE RECORDS SUMMARY | 2024-11-15 03:27 | XMS_ITS | Encounter Summary ---
Author Organization [facility] Address [address] [place] [address] Phone Care Team Providers Care Contract Administration Manager Name Role Phone Tony Washington MD Unavailable Anahy Rosales MD Unavailable [phone] Rashawn Herring MD Primary Care Provider + Encounter Details Date Type Department Care Team (Late st Contact Info) Description 04/23/2018 Telephone [facility] [address] [place] [address] [place] [address] [address] Social History Tobacco Use Types Packs/Day Years Used Date Smoking Tobacco: Never Smokeless Tobacco: Never Alcohol Use Standard Drinks/Week Comments Yes 0 (1 standard drink = 0.6 oz pur e alcohol) Comments No Sex and Gender Information Value Date Recorded Sex Assigned at Not on file Legal Sex Female 1:37 AM AUTO GARAGE ATTENDANT Gender Identity Female 10/03/2023 10:05 AM AUTO GARAGE ATTENDANT Sexual Orientation Straight 10/03/2023 10 :05 AM AUTO GARAGE ATTENDANT documented as of this encounter Miscellaneous Notes * Telephone Encounter - Nitza Ivy LPN - 04/23/2018 4:29 PM CDT I contacted Finesse and notified her of lab results. She voiced understanding-tyk * Telephone Encounter - Lynne Hoffmann LPN - 04/23/2018 4:11 PM CDT ----- Message from Laureano Lantigua MD sent at 04/23/2018 3:41 PM CDT ----- Vit d / b12 / tsh are normal Mild anemia no different than before Chol is mildly up but scores does not qualify for a chol med documented in this encounter Plan of Treatment Not on file documented as of this encounter Visit Diagnoses Not on filedocumented in this encounter Care Teams Contract Administration Manager Relationship Specialty [place] [address] [place] [address] PCP - General Surgery 04/20/18 07/29/18 Tony Washington MD [address] [place] [address] [address] [place] [address] Magento Developer Obstetrics and Gynecology 04/20/18 07/29/18 Anahy Rosales MD [address] [place] [address] [address] [place] [address] Referring Physician Psychiatry 04/20/18 07/29/18 documented as of this encounter
--- OUTSIDE RECORDS SUMMARY | 2024-11-15 03:27 | XMS_ITS | Encounter Summary ---
Author Organization [facility] Healthcare Address [address] [place] [address] Care Team Providers Care Director Oncology Name Role Phone Laureano Lantigua MD Primary Care Provider [phone]- [phone] Encounter Details Date Type Department Care Team (Late st Contact Info) Description 08/10/2015 3:02 PM CDT - 08/10/2015 11:59 PM CDT Hospital Encounter [facility] Tony Washington MD [address] [facility] [address], [place] [address] Rose Nelson NP [address] [facility] [facility] [address] [place] [address] Screening examination for sexually transmitted disease Social History Tobacco Use Types Packs/Day Years Used Date Smoking Tobacco: Never Alcohol Use Standard Drinks/Week Comments Yes 0 (1 standard drink = 0.6 oz pur e alcohol) Comments Unknown Sex and Gender Information Value Date Recorded Sex Assigned at Not on file Legal Sex Female 1:37 AM CARBONIZER TESTER Gender Identity Female 10/03/2023 10:05 AM CARBONIZER TESTER Sexual Orientation Straight 10/03/2023 10 :05 AM CARBONIZER TESTER documented as of this encounter Medications at [...] Name Priority Date/Time Associated Diagnosis Comments SERUM HUMAN IMMUNODEFICIENCY VIRUS Routine 08/10/2015 3:06 PM CDT SERUM HERPES SIMPLEX VIRUS 1, 2 AB, IGG Routine 08/10/2015 10:06 AM CDT DISCHARGE LABORATORY CUMULATIVE REPORT 08/10/2015 documented in this encounter Results * Serum Human Immunodeficiency virus [HIV] 1and 2 ag/ab (08/10/2015 3:06 PM CDT) HIV 1 and 2, ag/ab Negative Negative HISTORICAL RESULTS Serum 08/10/2015 3:06 PM CDT Rose Nelson SET UP MECHANIC HEADING MACHINES LAB BLOOD ORDERABLES Abril dela cruz Result HISTORICAL RESULTS * Serum Herpes simplex virus 1, 2 ab, IgG (08/10/2015 10:06 AM CDT) HSV 1 ab, IgG Negative Negative HISTOR ICAL RESULTS HSV 2 ab, IgG Positive Negative HISTOR ICAL RESULTS HSV ab, IgM Negative Negative HISTORIC AL RESULTS Comment: ADDITIONAL INFORMATION The performance of this assay has not been established for use in neonates, infants or on cord blood. The value Negative was changed by IF on 08/13/2015 12:50 from: no value Serum 08/10/2015 10:0 6 AM CDT Narrative HISTORICAL RESULTS - 08/13/2015 7:50 AM CDT Test performed at [facility] Dept of Lab Medicine and Pathology, [address] [place] [address], [place], [place], [place], [address]. [place] Rose Nelson SET UP MECHANIC HEADING MACHINES LAB BLOOD ORDERABLES Abril l Result HISTORICAL RESULTS * DISCHARGE LABORATORY CUMULATIVE REPORT (08/10/2015) Narrative 08/10/2015 Ordered by an unspecified provider. us Historical Provider MD LAB BLOOD ORDERABLES Abril l Result documented in this encounter Visit Diagnoses Diagnosis Screening examination for sexually transmitted disease documented in this encounter Care Teams Director Oncology Relationship Specialty Start Date End Date Laureano Lantigua MD [address] [place] [address] PCP - General 11/23/14 02/13/17 documented as of this encounter
--- OUTSIDE RECORDS SUMMARY | 2024-11-15 03:27 | XMS_ITS | Encounter Summary ---
Author Organization [facility] Address [address] [address] Care Team Providers Care Certified Lactation Educator Name Role Phone Laureano Lantigua MD Primary Care Provider + [phone] Tony Washington MD Unavailable [phone] Aanhy Rosales MD Unavailable [phone] Encounter Details Date Type Department Care Team (Late st Contact Info) Description 11/18/2018 Telephone [facility] [address] [place] [id number] Laureano Lantigua MD [address] [address] Social History Tobacco Use Types Packs/Day Years Used Date Smoking Tobacco: Never Smokeless Tobacco: Never Alcohol Use Standard Drinks/Week Comments Yes 0 (1 standard drink = 0.6 oz pur e alcohol) Comments No Sex and Gender Information Value Date Recorded Sex Assigned at Not on file Legal Sex Female 1:37 AM MACHINIST SET UP Gender Identity Female 10/03/2023 10:05 AM MACHINIST SET UP Sexual Orientation Straight 10/03/2023 10 :05 AM MACHINIST SET UP documented as of this encounter Ordered Prescriptions Prescription Sig Dispense Quantity Refills Last Filled Start Date End Date oxyCODONE-acetamin ophen (PERCOCET) 5-325 mg per tabletIndications: Pain Take 1 tablet by mouth every 8 (eight) hours as needed for pain. 30 tablet 11/16/2019 11/22/2019 documented in this encounter Miscellaneous Notes * Telephone Encounter - Maddie Jimenez MA - 11/19/2018 4:01 PM MACHINIST SET UP PICKED UP SCRIPT AND SHOWED ID. INIST SET UP * Telephone Encounter - Prema Edmond LPN - 11/18/2018 12:57 PM MACHINIST SET UP rx written, signed Copied and ready to slat pickler at bowling or skating front desk clerk Pt notified INIST SET UP * Telephone Encounter - Laureano Lantigua MD - 11/18/2018 11:21 AM MACHINIST SET UP Ok INIST SET UP * Telephone Encounter - Maddison Willams RN - 11/18/2018 10:46 AM MACHINIST SET UP Pt needs hand written/signed script for Oxycodone 5/325 1 tab by mouth every 8 hours as needed for pain #30 (thirty) No refills. Pharmacy does not accept faxed orders for this class of drug. To Dr JAY INIST SET UP * Telephone Encounter - Monika Powell - 11/18/2018 10:27 AM CST WG states they received a paper fax for the oxycodone. This rx cannot be faxed, they need it resent/called. INIST SET UP documented in this encounter Plan of Treatment Not on file documented as of this encounter Visit Diagnoses Not on filedocumented in this encounter Discontinued Medications Medication Sig Discontinue Reason Start Date End Da te oxyCODONE-acetaminophen (PERCOCET) 5-325 mg per tabletIndications:Pain Take 1 tablet by mouth every 8 (eight) hours as needed for pain. Reorder 11/16/2018 11/18/2018 documented as of this encounter Care Teams Certified Lactation Educator Relationship Specialty Start Date End Date Laureano Lantigua MD [address] [place] [address] PCP - General Internal Medicine 07/30/18 Tony Washington MD [address] [facility] [address] [place] [address] Heater Tender Obstetrics and Gynecology 11/16/18 Anahy Rosales MD [address] [facility] [address] [place] [address] Referring Physician Psychiatry 11/16/18 documented as of this encounter
--- OUTSIDE RECORDS SUMMARY | 2024-11-15 03:27 | XMS_ITS | Encounter Summary ---
Author Organization [facility] Healthcare Address [address] [place] [address] Care Team Providers Care Record Press Supervisor Name Role Phone Laureano Lantigua MD Primary Care Provider [phone]- [phone] Encounter Details Date Type Department Care Team (Late st Contact Info) Description 05/18/2015 7:52 AM CDT - 05/18/2015 11:59 PM CDT Hospital Encounter [facility] Laureano Lantigua MD [address] [place] [address] Low back pain Social History Tobacco Use Types Packs/Day Years Used Date Smoking Tobacco: Never Alcohol Use Standard Drinks/Week Comments Yes 0 (1 standard drink = 0.6 oz pur e alcohol) Comments Unknown Sex and Gender Information Value Date Recorded Sex Assigned at Not on file Legal Sex Female 1:37 AM HEARING CONSULTANT Gender Identity Female 10/03/2023 10:05 AM HEARING CONSULTANT Sexual Orientation Straight 10/03/2023 10 :05 AM HEARING CONSULTANT documented as of this encounter Medications at [...] route TID prn 45 0 11/04/2013 7 lansoprazole (PREVACID) 30 mg capsule take [...] 3 oxyCODONE-acetam inophen (PERCOCET) 5-325 mg per tablet [...] encounter Visit Diagnoses Diagnosis Low back pain Lumbago documented in this encounter Care Teams Record Press Supervisor Relationship Specialty Start Date End Date Laureano Lantigua MD [address] [place] [address] PCP - General 11/23/14 02/13/17 documented as of this encounter
--- OUTSIDE RECORDS SUMMARY | 2024-11-15 03:27 | XMS_ITS | Encounter Summary ---
Author Organization [facility] Healthcare Address [address] [place] [address] Care Team Providers Care Gastroenterology Nurse Practitioner Name Role Phone Laureano Lantigua MD Primary Care Provider [phone]- [phone] Encounter Details Date Type Department Care Team (Latest Contact Info) Description 11/11/2017 2:58 PM HURRICANE TRACKER - 11/11/2017 11:59 PM HURRICANE TRACKER Hospital Encounter [facility] [address] [place] [address] Tony Washington MD [address] [place] [address] [address] Encounter for screening mammogram for breast cancer Discharge Disposition: Discharge to home or self care Social History Tobacco Use Types Packs/Day Years Used Date Smoking Tobacco: Never Smokeless Tobacco: Never Alcohol Use Standard Drinks/Week Comments Yes 0 (1 standard drink = 0.6 oz pur e alcohol) Comments No Sex and Gender Information Value Date Recorded Sex Assigned at Not on file Legal Sex Female 1:37 AM HURRICANE TRACKER Gender Identity Female 10/03/2023 10:05 AM HURRICANE TRACKER Sexual Orientation Straight 10/03/2023 10 :05 AM HURRICANE TRACKER documented as of this encounter Last Filed Vital Signs Vital Sign Reading Time Taken Comments Blood Pressure - - Pulse - - Temperature - - Respiratory Rate - - Oxygen Saturation - - Inhaled Oxygen Concentration - - Weight 96.2 kg (212 lb) 11/11/2017 3:16 PM HURRICANE TRACKER Height 182.9 cm (6') 11/11/2017 3:16 PM HURRICANE TRACKER Body Mass Index 28.75 11/11/2017 3:16 PM HURRICANE TRACKER documented in this encounter Medications at Time [...] route TID prn 30 0 11/04/2013 8 cyanocobalamin (vitamin B-12) 500 mcg tablet 500 mcg. 0 0 08/10/2015 0 multivitamin (MULTIPLE VITAMINS) tablet tablet take 1 tablet by oral route every day with food 0 0 01/16/2015 3 multivitamin capsule take 1 capsule by oral route every day 0 0 08/10/2015 0 omeprazole OTC (PriLOSEC OTC) 20 mg EC tablet Take 20 mg by mouth daily. 8 valACYclovir (VALTREX) 1 gram tablet Take 1 tablet (1,000 mg total) by mouth daily. 30 tablet 3 06/23/2017 8 documented as of this encounter Discharge Disposition Disposition Code Departure Means Destination Discharge to home or self care documented in this encounter Plan of Treatment Not on file documented as of this encounter Procedures Procedure Name Priority Date/Time Associated Diagnosis Comments SCREENING MAMMOGRAM 2D BILATERAL Schedule Routine, Read Routine (OP Routine) 11/11/2017 3:21 PM HURRICANE TRACKER Encounter for screening mammogram for breast cancer documented in this encounter Results * Screening Mammogram 2D Bilateral (11/11/2017 3:21 PM HURRICANE TRACKER) Anatomical Region Laterality Modality Breast Bilateral Mammography Impressions 11/11/2017 3:24 PM HURRICANE TRACKER 1. ??NO DEFINITIVE MAMMOGRAPHIC EVIDENCE OF MALIGNANCY. 2. ??ANNUAL FOLLOW-UP RECOMMENDED. BI-RADS 1 Electronically signed by: Sergio Gray M.D Narrative 11/11/2017 3:24 PM HURRICANE TRACKER SCREENING MAMMOGRAM 2D BILATERAL HISTORY: Encounter for screening mammogram for malignant neoplasm of breast. TECHNIQUE: 2 views of each breast were obtained with bilateral breast tomosynthesis. COMPARISON: 11/15/2015 and 04/11/2011. FINDINGS: Scattered parenchymal densities bilaterally. No suspicious mass or calcification is seen to suggest mammographic evidence of malignancy. Digital technology was employed plus computer aided detection software (R2) was utilized in interpretation of these images. ??This facility utilizes a reminder system to notify patient's of yearly mammograms. Procedure Note Sergio Gray MD / Provider, MD Kanu - 11/11/2017 SCREENING MAMMOGRAM 2D BILATERAL HISTORY: Encounter for screening mammogram for malignant neoplasm of breast. TECHNIQUE: 2 views of each breast were obtained with bilateral breast tomosynthesis. COMPARISON: 11/15/2015 and 04/11/2011. FINDINGS: Scattered parenchymal densities bilaterally. No suspicious mass or calcification is seen to suggest mammographic evidence of malignancy. Digital technology was employed plus computer aided detection software (R2) was utilized in interpretation of these images. This facility utilizes a reminder system to notify patient's of yearly mammograms. IMPRESSION: 1. NO DEFINITIVE MAMMOGRAPHIC EVIDENCE OF MALIGNANCY. 2. ANNUAL FOLLOW-UP RECOMMENDED. BI-RADS 1 Electronically signed by: Sergio Gray M.D Tony Washington MD IMG MAMMO PROCEDURES Final Result documented in this encounter Visit Diagnoses Diagnosis Encounter for screening mammogram for breast cancer documented in this encounter Care Teams Gastroenterology Nurse Practitioner Relationship Specialty Start Date End Date Laureano Lantigua MD [address] [place] [address] PCP - General 02/14/17 04/19/18 documented as of this encounter
--- OUTSIDE RECORDS SUMMARY | 2024-11-15 03:27 | XMS_ITS | Encounter Summary ---
Author Organization [facility] Address [address] [facility] [address] [place] [address] Care Team Providers Care Mysql Dba Name Role Phone Laureano Lantigua MD Primary Care Provider [phone]- [phone] Reason for Visit * Reason Onset Date Comments need to skip cycle 01/29/2018 Encounter Details Date Type Department Care Team (Late st Contact Info) Description 01/29/2018 Telephone [facility] [address] [facility] [address] [place] [address] Karishma Thakkar, RN need to skip cycle Social History Tobacco Use Types Packs/Day Years Used Date Smoking Tobacco: Never Smokeless Tobacco: Never Alcohol Use Standard Drinks/Week Comments Yes 0 (1 standard drink = 0.6 oz pur e alcohol) Comments No Sex and Gender Information Value Date Recorded Sex Assigned at Not on file Legal Sex Female 1:37 AM CRM COORDINATOR Gender Identity Female 10/03/2023 10:05 AM CRM COORDINATOR Sexual Orientation Straight 10/03/2023 10 :05 AM CRM COORDINATOR documented as of this encounter Miscellaneous Notes * Telephone Encounter - Tony Washington MD - 02/01/2018 2:55 PM CDT Spoke with patient; she will check cycle interval and length of this cycle and call back; likely will be half way done with next cycle by time she leaves. * Telephone Encounter - Karishma Thakkar RN - 01/29/2018 4:02 PM CDT Pt called in stating she started her period today. She is leaving for [place] in 30 days and does not want to be on her period while on her trip. Pt requesting something to help throw her cycle off soshe will be able to enjoy her trip. Pt is not on any OCP as she has struggled with infertility in the past. Please advise!! documented in this encounter Plan of Treatment Not on file documented as of this encounter Visit Diagnoses Not on filedocumented in this encounter Care Teams Mysql Dba Relationship Specialty Start Date End Date Laureano Lantigua MD [address] [place] [address] PCP - General 02/14/17 04/19/18 documented as of this encounter
--- OUTSIDE RECORDS SUMMARY | 2024-11-15 03:27 | XMS_ITS | Encounter Summary ---
Author Organization [facility] Address [address] [place] [address] Phone Care Team Providers Care Substation Operator Chief Name Role Phone Laureano Lantigua MD Primary Care Provider [phone]- [phone] Encounter Details Date Type Department Care Team (Late st Contact Info) Description 12/08/2017 Telephone [facility] [address] [place] [address] Laureano Lantigua MD [address] [place], [place] [address], [place] [address] Social History Tobacco Use Types Packs/Day Years Used Date Smoking Tobacco: Never Smokeless Tobacco: Never Alcohol Use Standard Drinks/Week Comments Yes 0 (1 standard drink = 0.6 oz pur e alcohol) Comments No Sex and Gender Information Value Date Recorded Sex Assigned at Not on file Legal Sex Female 1:37 AM ENVIRONMENTAL COMPLIANCE ENGINEER Gender Identity Female 10/03/2023 10:05 AM ENVIRONMENTAL COMPLIANCE ENGINEER Sexual Orientation Straight 10/03/2023 10 :05 AM ENVIRONMENTAL COMPLIANCE ENGINEER documented as of this encounter Ordered Prescriptions Prescription Sig Dispense Quantity Refills Last Filled Start Date End Date albuterol HFA (PROVENTIL HFA,VENTOLIN HFA) 90 mcg/actuation inhaler 2 puffs qid prn 1 Inhaler 11 12/08/2017 11/22/2019 documented in this encounter Miscellaneous Notes * Telephone Encounter - Jenifer Garza LPN - 12/08/2017 1:50 PM CST done RONMENTAL COMPLIANCE ENGINEER * Telephone Encounter - Laureano Lantigua MD - 12/08/2017 12:35 PM ENVIRONMENTAL COMPLIANCE ENGINEER OK 11 RF RONMENTAL COMPLIANCE ENGINEER * Telephone Encounter - Jenifer Garza LPN - 12/08/2017 12:31 PM CST Last filled 2015 RONMENTAL COMPLIANCE ENGINEER * Telephone Encounter - Selin Real - 12/08/2017 12:08 PM ENVIRONMENTAL COMPLIANCE ENGINEER Pt called req a refill on rx, albuterol hfa She is completely out RONMENTAL COMPLIANCE ENGINEER documented in this encounter Plan of Treatment Not on file documented as of this encounter Visit Diagnoses Not on filedocumented in this encounter Discontinued Medications Medication Sig Discontinue Reason Start Date End Da te albuterol HFA (PROVENTIL HFA,VENTOLIN HFA) 90 mcg/actuation inhaler inhale 2 puff by inhalation route every QID as needed Reorder 11/04/2013 12/08/2017 documented as of this encounter Care Teams Substation Operator Chief Relationship Specialty Start Date End Date Laureano Lantigua MD [address] [place] [address] PCP - General 02/14/17 04/19/18 documented as of this encounter
--- OUTSIDE RECORDS SUMMARY | 2024-11-15 03:28 | XMS_ITS | Encounter Summary ---
Author Organization [facility] Healthcare Address [address] [place] [address] Care Team Providers Care Diagnostic Medical Sonographer Name Role Phone Laureano Lantigua MD Primary Care Provider [phone]- [phone] Encounter Details Date Type Department Care Team (Late st Contact Info) Description 06/11/2012 5:40 PM CDT - 06/11/2012 11:59 PM CDT Hospital Encounter [facility] Tony Swan MD [address] [place] [address] [address] [place] [address] Absence of menstruation Social History Tobacco Use Types Packs/Day Years Used Date Smoking Tobacco: Never Assessed Comments Unknown Sex and Gender Information Value Date Recorded Sex Assigned at Not on file Legal Sex Female 1:37 AM BARREL CHARRER HELPER Gender Identity Female 10/03/2023 10:05 AM BARREL CHARRER HELPER Sexual Orientation Straight 10/03/2023 10 :05 AM BARREL CHARRER HELPER documented as of this encounter Medications at Time of Discharge biotin (APPEAREX) 2,500 mcg tablet 2,500 mcg. 0 10/26/2010 03/10/20 documented as of this encounter Plan of Treatment Not on file documented as of this encounter Visit Diagnoses Diagnosis Absence of menstruation documented in this encounter Care Teams Diagnostic Medical Sonographer Relationship Specialty Start Date End Date Laureano Lantigua MD [address] [place] [address] PCP - General 08/13/11 11/22/14 documented as of this encounter
--- OUTSIDE RECORDS SUMMARY | 2024-11-15 03:28 | XMS_ITS | Encounter Summary ---
Author Organization [facility] Healthcare Address [address] [place] [address] Care Team Providers Care Student Development Dean Name Role Phone Laureano Lantigua MD Primary Care Provider +1- [phone] Encounter Details Date Type Department Care Team (Late st Contact Info) Description 10/30/2010 12:03 PM CORPORATE OFFICER - 10/30/2010 11:59 PM CORPORATE OFFICER Hospital Encounter [facility] Low back pain; Pain in soft tissues of limb Social History Tobacco Use Types Packs/Day Years Used Date Smoking Tobacco: Never Assessed Comments Unknown Sex and Gender Information Value Date Recorded Sex Assigned at Not on file Legal Sex Female 1:37 AM CORPORATE OFFICER Gender Identity Female 10/03/2023 10:05 AM CORPORATE OFFICER Sexual Orientation Straight 10/03/2023 10 :05 AM CORPORATE OFFICER documented as of this encounter Medications at Time of Discharge biotin (APPEAREX) 2,500 mcg tablet 2,500 mcg. 0 10/26/2010 03/10/20 23 documented as of this encounter Plan of Treatment Not on file documented as of this encounter Visit Diagnoses Diagnosis Low back pain Lumbago Pain in soft tissues of limb documented in this encounter Care Teams Student Development Dean Relationship Specialty Start Date End Date Laureano Lantigua MD [address] [place] [address] PCP - General 10/26/10 08/12/11 documented as of this encounter
--- OUTSIDE RECORDS SUMMARY | 2024-11-15 03:28 | XMS_ITS | Encounter Summary ---
Author Organization [facility] Healthcare Address [address] [place] [address] Care Team Providers Care Cushion Maker Name Role Phone Laureano Lantigua MD Primary Care Provider +1- [phone] Encounter Details Date Type Department Care Team (Late st Contact Info) Description 08/06/2011 2:29 PM CDT - 08/06/2011 11:59 PM CDT Hospital Encounter [facility] Social History Tobacco Use Types Packs/Day Years Used Date Smoking Tobacco: Never Assessed Comments Unknown Sex and Gender Information Value Date Recorded Sex Assigned at Not on file Legal Sex Female 1:37 AM ADMINISTRATOR SOCIAL WELFARE Gender Identity Female 10/03/2023 10:05 AM ADMINISTRATOR SOCIAL WELFARE Sexual Orientation Straight 10/03/2023 10 :05 AM ADMINISTRATOR SOCIAL WELFARE documented as of this encounter Medications at Time of Discharge biotin (APPEAREX) 2,500 mcg tablet 2,500 mcg. 0 10/26/2010 03/10/20 documented as of this encounter Plan of Treatment Not on file documented as of this encounter Visit Diagnoses Not on filedocumented in this encounter Care Teams Cushion Maker Relationship Specialty Start Date End Date Laureano Lantigua MD [address] [place] [address] PCP - General 10/26/10 08/12/11 documented as of this encounter
--- OUTSIDE RECORDS SUMMARY | 2024-11-15 03:28 | XMS_ITS | Encounter Summary ---
Author Organization [facility] Care Team Providers Care Refueling Ramp Supervisor Name Role Phone Laureano Lantigua MD Primary Care Provider +1- [phone] Encounter Details Date Type Department Care Team (Late st Contact Info) Description 10/14/2011 2:12 PM AGRICULTURAL MECHANIC - 11/16/2011 11:59 PM AGRICULTURAL MECHANIC Hospital Encounter [facility] Edward Page MD [facility] [place] [address] Other chronic pain; Generalized anxiety disorder; Insomnia; Tobacco use disorder; Sacroiliitis, not elsewhere classified (HCC); Lumbosacral spondylosis without myelopathy Social History Tobacco Use Types Packs/Day Years Used Date Smoking Tobacco: Never Assessed Comments Unknown Sex and Gender Information Value Date Recorded Sex Assigned at Not on file Legal Sex Female 1:37 AM AGRICULTURAL MECHANIC Gender Identity Female 10/03/2023 10:05 AM AGRICULTURAL MECHANIC Sexual Orientation Straight 10/03/2023 10 :05 AM AGRICULTURAL MECHANIC documented as of this encounter Medications at Time of Discharge biotin (APPEAREX) 2,500 mcg tablet 2,500 mcg. 0 10/26/2010 03/10/20 documented as of this encounter Plan of Treatment Not on file documented as of this encounter Visit Diagnoses Diagnosis Other chronic pain Generalized anxiety disorder Insomnia Insomnia, unspecified Tobacco use disorder Sacroiliitis, not elsewhere classified (HCC) Sacroiliitis, not elsewhere classified Lumbosacral spondylosis without myelopathy documented in this encounter Care Teams Refueling Ramp Supervisor Relationship Specialty Start Date End Date Laureano Lantigua MD [address] [place] [address] PCP - General 08/13/11 11/22/14 documented as of this encounter
--- OUTSIDE RECORDS SUMMARY | 2024-11-15 03:28 | XMS_ITS | Encounter Summary ---
Author Organization [facility] Healthcare Address [address] [place] [address] Care Team Providers Care Disk Sharpener Name Role Phone Laureano Lantigua MD Primary Care Provider +1- [phone] Encounter Details Date Type Department Care Team (Late st Contact Info) Description 07/25/2011 5:55 PM CDT - 07/25/2011 11:59 PM CDT Hospital Encounter [facility] Social History Tobacco Use Types Packs/Day Years Used Date Smoking Tobacco: Never Assessed Comments Unknown Sex and Gender Information Value Date Recorded Sex Assigned at Not on file Legal Sex Female 1:37 AM FIBER PICKER Gender Identity Female 10/03/2023 10:05 AM FIBER PICKER Sexual Orientation Straight 10/03/2023 10 :05 AM FIBER PICKER documented as of this encounter Medications at Time of Discharge biotin (APPEAREX) 2,500 mcg tablet 2,500 mcg. 0 10/26/2010 03/10/20 documented as of this encounter Plan of Treatment Not on file documented as of this encounter Visit Diagnoses Not on filedocumented in this encounter Care Teams Disk Sharpener Relationship Specialty Start Date End Date Laureano Lantigua MD [address] [place] [address] PCP - General 10/26/10 08/12/11 documented as of this encounter
--- OUTSIDE RECORDS SUMMARY | 2024-11-15 03:28 | XMS_ITS | Encounter Summary ---
Author Organization [facility] Healthcare Address [address] [place] [address] Care Team Providers Care Professor Of Radiology Name Role Phone Unavailable Primary Care Provider Unavailabl e Encounter Details Date Type Department Care Team (Late st Contact Info) Description 06/01/2009 5:26 PM CDT - 06/01/2009 8:13 PM CDT Hospital Encounter [facility] Kary Richardson MD [address] [facility] [place] [address] Laureano Lantigua MD [address] [place] [address] Other bacterial food poisoning; Gastritis and gastroduodenitis Social History Tobacco Use Types Packs/Day Years Used Date Smoking Tobacco: Never Assessed Comments Unknown Sex and Gender Information Value Date Recorded Sex Assigned at Not on file Legal Sex Female 1:37 AM CASTING HOUSE LABORER Gender Identity Female 10/03/2023 10:05 AM CASTING HOUSE LABORER Sexual Orientation Straight 10/03/2023 10 :05 AM CASTING HOUSE LABORER documented as of this encounter Plan of Treatment Not on file documented as of this encounter Visit Diagnoses Diagnosis Other bacterial food poisoning Gastritis and gastroduodenitis Unspecified gastritis and gastroduodenitis without mention of hemorrhage documented in this encounter
--- OUTSIDE RECORDS SUMMARY | 2024-11-15 03:28 | XMS_ITS | Encounter Summary ---
Author Organization [facility] Facility Care Team Providers Care Multiple Wire Sawyer Name Role Phone Laureano Lantigua MD Primary Care Provider +1- [phone] Encounter Details Date Type Department Care Team (Late st Contact Info) Description 10/07/2011 - 10/07/2011 11:59 PM CIVIL STRUCTURAL DESIGNER Hospital Encounter [facility] CLINCONV Brett Wisdom MD [facility] [address] Degeneration of cervical intervertebral disc; Degeneration of lumbar or lumbosacral intervertebral disc; Arthrodesis status; Acquired postural kyphosis Social History Tobacco Use Types Packs/Day Years Used Date Smoking Tobacco: Never Assessed Comments Unknown Sex and Gender Information Value Date Recorded Sex Assigned at Not on file Legal Sex Female 1:37 AM CIVIL STRUCTURAL DESIGNER Gender Identity Female 10/03/2023 10:05 AM CIVIL STRUCTURAL DESIGNER Sexual Orientation Straight 10/03/2023 10 :05 AM CIVIL STRUCTURAL DESIGNER documented as of this encounter Medications at Time of Discharge biotin (APPEAREX) 2,500 mcg tablet 2,500 mcg. 0 10/26/2010 03/10/20 23 documented as of this encounter Plan of Treatment Not on file documented as of this encounter Visit Diagnoses Diagnosis Degeneration of cervical intervertebral disc Degeneration of lumbar or lumbosacral intervertebral disc Arthrodesis status Acquired postural kyphosis Kyphosis (acquired) (postural) documented in this encounter Care Teams Multiple Wire Sawyer Relationship Specialty Start Date End Date Laureano Lantigua MD [address] [place] [address] PCP - General 08/13/11 11/22/14 documented as of this encounter
--- OUTSIDE RECORDS SUMMARY | 2024-11-15 03:28 | XMS_ITS | Encounter Summary ---
Author Organization [facility] Healthcare Address [address] [place] [address] Care Team Providers Care Cert Occupational Therapy Asst Name Role Phone Unavailable Primary Care Provider Unavailabl e Encounter Details Date Type Department Care Team (Late st Contact Info) Description 07/25/2008 10:16 AM CDT - 07/25/2008 7:50 PM CDT Hospital Encounter [facility] CLIN[facility] Teddy Toussaint MD [address] [facility] [address] [place] [address] Social History Tobacco Use Types Packs/Day Years Used Date Smoking Tobacco: Never Assessed Comments Unknown Sex and Gender Information Value Date Recorded Sex Assigned at Not on file Legal Sex Female 1:37 AM SUBSTANCE ADDICTION COORDINATOR Gender Identity Female 10/03/2023 10:05 AM SUBSTANCE ADDICTION COORDINATOR Sexual Orientation Straight 10/03/2023 10 :05 AM SUBSTANCE ADDICTION COORDINATOR documented as of this encounter Plan of Treatment Not on file documented as of this encounter Visit Diagnoses Not on filedocumented in this encounter
--- OUTSIDE RECORDS SUMMARY | 2024-11-15 03:28 | XMS_ITS | Encounter Summary ---
Author Organization [facility] Healthcare Address [address] [place] [address] Care Team Providers Care Corporate Planner Name Role Phone Unavailable Primary Care Provider Unavailabl e Encounter Details Date Type Department Care Team (Late st Contact Info) Description 07/20/2008 7:27 AM CDT - 07/20/2008 11:59 PM CDT Hospital Encounter [facility] CLINCONV Teddy Toussaint MD [address] [facility] [address] [place] [address] Social History Tobacco Use Types Packs/Day Years Used Date Smoking Tobacco: Never Assessed Comments Unknown Sex and Gender Information Value Date Recorded Sex Assigned at Not on file Legal Sex Female 1:37 AM AUDIO VISUAL SPECIALIST Gender Identity Female 10/03/2023 10:05 AM AUDIO VISUAL SPECIALIST Sexual Orientation Straight 10/03/2023 10 :05 AM AUDIO VISUAL SPECIALIST documented as of this encounter Plan of Treatment Not on file documented as of this encounter Visit Diagnoses Not on filedocumented in this encounter
--- OUTSIDE RECORDS SUMMARY | 2024-11-15 03:28 | XMS_ITS | Encounter Summary ---
Author Organization [facility] Healthcare Address [address] [place] [address] Care Team Providers Care Cargo Service Agent Name Role Phone Laureano Lantigua MD Primary Care Provider +1- [phone] Encounter Details Date Type Department Care Team (Late st Contact Info) Description 05/03/2011 12:01 AM CDT - 05/03/2011 11:59 PM CDT Hospital [place] [address] [address] Social History Tobacco Use Types Packs/Day Years Used Date Smoking Tobacco: Never Assessed Comments Unknown Sex and Gender Information Value Date Recorded Sex Assigned at Not on file Legal Sex Female 1:37 AM TELEGRAPH MESSENGER Gender Identity Female 10/03/2023 10:05 AM TELEGRAPH MESSENGER Sexual Orientation Straight 10/03/2023 10 :05 AM TELEGRAPH MESSENGER documented as of this encounter Medications at Time of Discharge biotin (APPEAREX) 2,500 mcg tablet 2,500 mcg. 0 10/26/2010 03/10/20 23 documented as of this encounter Plan of Treatment Not on file documented as of this encounter Visit Diagnoses Not on filedocumented in this encounter Care Teams Cargo Service Agent Relationship Specialty Start Date End Date Laureano Lantigua MD [address] [place] [address] PCP - General 10/26/10 08/12/11 documented as of this encounter
--- OUTSIDE RECORDS SUMMARY | 2024-11-15 03:28 | XMS_ITS | Encounter Summary ---
Author Organization [facility] Healthcare Address [address] [place] [address] Care Team Providers Care Benefits Assistant Name Role Phone Laureano Lantigua MD Primary Care Provider +1- [phone] Encounter Details Date Type Department Care Team (Late st Contact Info) Description 10/09/2011 5:50 PM STATE DIRECTOR - 10/09/2011 11:59 PM STATE DIRECTOR Hospital Encounter [facility] Brett Bruce MD [address] [address] Spinal stenosis in cervical region Social History Tobacco Use Types Packs/Day Years Used Date Smoking Tobacco: Never Assessed Comments Unknown Sex and Gender Information Value Date Recorded Sex Assigned at Not on file Legal Sex Female 1:37 AM STATE DIRECTOR Gender Identity Female 10/03/2023 10:05 AM STATE DIRECTOR Sexual Orientation Straight 10/03/2023 10 :05 AM STATE DIRECTOR documented as of this encounter Medications at Time of Discharge biotin (APPEAREX) 2,500 mcg tablet 2,500 mcg. 0 10/26/2010 03/10/20 documented as of this encounter Plan of Treatment Not on file documented as of this encounter Visit Diagnoses Diagnosis Spinal stenosis in cervical region documented in this encounter Care Teams Benefits Assistant Relationship Specialty Start Date End Date Laureano Lantigua MD [address] [place] [address] PCP - General 08/13/11 11/22/14 documented as of this encounter
--- OUTSIDE RECORDS SUMMARY | 2024-11-15 03:28 | XMS_ITS | Encounter Summary ---
Author Organization [facility] Healthcare Address [address] [place] [address] Care Team Providers Care Hydraulic Engineer Name Role Phone Laureano Lantigua MD Primary Care Provider +1- [phone] Encounter Details Date Type Department Care Team (Late st Contact Info) Description 05/26/2012 5:52 PM CDT - 05/26/2012 11:59 PM CDT Hospital Encounter [facility] Tony Swan MD [address] [place] [address] [address] [place] [address] Absence of menstruation Social History Tobacco Use Types Packs/Day Years Used Date Smoking Tobacco: Never Assessed Comments Unknown Sex and Gender Information Value Date Recorded Sex Assigned at Not on file Legal Sex Female 1:37 AM FILM CLEANER Gender Identity Female 10/03/2023 10:05 AM FILM CLEANER Sexual Orientation Straight 10/03/2023 10 :05 AM FILM CLEANER documented as of this encounter Medications at Time of Discharge biotin (APPEAREX) 2,500 mcg tablet 2,500 mcg. 0 10/26/2010 03/10/20 documented as of this encounter Plan of Treatment Not on file documented as of this encounter Visit Diagnoses Diagnosis Absence of menstruation documented in this encounter Care Teams Hydraulic Engineer Relationship Specialty Start Date End Date Laureano Lantigua MD [address] [place] [address] PCP - General 08/13/11 11/22/14 documented as of this encounter
--- OUTSIDE RECORDS SUMMARY | 2024-11-15 03:28 | XMS_ITS | Encounter Summary ---
Author Organization [facility] Healthcare Address [address] [place] [address] Care Team Providers Care Respiratory Medicine Physician Name Role Phone Laureano Lantigua MD Primary Care Provider +1- [phone] Encounter Details Date Type Department Care Team (Late st Contact Info) Description 07/28/2012 10:31 PM CDT - 07/28/2012 11:45 PM CDT Hospital Encounter [facility] Sg Dixon MD [address] [place] [address] [address] [place] [address] Other complication of , antepartum; Abdominal pain, right upper quadrant; Elderly primigravida, antepartum Social History Tobacco Use Types Packs/Day Years Used Date Smoking Tobacco: Never Assessed Comments Unknown Sex and Gender Information Value Date Recorded Sex Assigned at Not on file Legal Sex Female 1:37 AM CORPORATE ETHICS OFFICER Gender Identity Female 10/03/2023 10:05 AM CORPORATE ETHICS OFFICER Sexual Orientation Straight 10/03/2023 10 :05 AM CORPORATE ETHICS OFFICER documented as of this encounter Medications at Time of Discharge biotin (APPEAREX) 2,500 mcg tablet 2,500 mcg. 0 10/26/2010 03/10/20 documented as of this encounter Plan of Treatment Not on file documented as of this encounter Visit Diagnoses Diagnosis Other complication of , antepartum Abdominal pain, right upper quadrant Elderly primigravida, antepartum documented in this encounter Care Teams Respiratory Medicine Physician Relationship Specialty Start Date End Date Laureano Lantigua MD [address] [place] [address] PCP - General 08/13/11 11/22/14 documented as of this encounter
--- OUTSIDE RECORDS SUMMARY | 2024-11-15 03:28 | XMS_ITS | Encounter Summary ---
Author Organization [facility] Facility Care Team Providers Care Senior Patrol Agent Name Role Phone Unavailable Primary Care Provider Unavailabl e Encounter Details Date Type Department Care Team (Latest Contact Info) Description 08/21/2010 2:39 PM CDT Hospital Encounter [facility] [place] [address] [place] [address] Pain in joint, shoulder region Social History Tobacco Use Types Packs/Day Years Used Date Smoking Tobacco: Never Assessed Comments Unknown Sex and Gender Information Value Date Recorded Sex Assigned at Not on file Legal Sex Female 1:37 AM RUBBER INSULATOR Gender Identity Female 10/03/2023 10:05 AM RUBBER INSULATOR Sexual Orientation Straight 10/03/2023 10 :05 AM RUBBER INSULATOR documented as of this encounter Plan of Treatment Not on file documented as of this encounter Visit Diagnoses Diagnosis Pain in joint, shoulder region documented in this encounter
--- OUTSIDE RECORDS SUMMARY | 2024-11-15 03:28 | XMS_ITS | Encounter Summary ---
Author Organization [facility] Healthcare Address [address] [place] [address] Care Team Providers Care Application Development Team Lead Name Role Phone Unavailable Primary Care Provider Unavailabl e Encounter Details Date Type Department Care Team (Late st Contact Info) Description 10/19/2010 12:01 AM MANAGER INCOME TAX - 10/19/2010 11:59 PM MANAGER INCOME TAX Hospital Encounter [facility] CLINCONV Leroy Cervantes MD [address] [place] [address] [address] Social History Tobacco Use Types Packs/Day Years Used Date Smoking Tobacco: Never Assessed Comments Unknown Sex and Gender Information Value Date Recorded Sex Assigned at Not on file Legal Sex Female 1:37 AM MANAGER INCOME TAX Gender Identity Female 10/03/2023 10:05 AM MANAGER INCOME TAX Sexual Orientation Straight 10/03/2023 10 :05 AM MANAGER INCOME TAX documented as of this encounter Plan of Treatment Not on file documented as of this encounter Visit Diagnoses Not on filedocumented in this encounter
--- OUTSIDE RECORDS SUMMARY | 2024-11-15 03:28 | XMS_ITS | Encounter Summary ---
Author Organization [facility] Healthcare Address [address] [place] [address] Care Team Providers Care Indirect Sales Representative Name Role Phone Unavailable Primary Care Provider Unavailabl e Encounter Details Date Type Department Care Team (Late st Contact Info) Description 02/25/2008 12:05 PM CDT - 02/25/2008 11:59 PM CDT Hospital Encounter [facility] CLINCONV Teddy Toussaint MD [address] [facility] [address] [place] [address] Social History Tobacco Use Types Packs/Day Years Used Date Smoking Tobacco: Never Assessed Comments Unknown Sex and Gender Information Value Date Recorded Sex Assigned at Not on file Legal Sex Female 1:37 AM RN PERINATAL Gender Identity Female 10/03/2023 10:05 AM RN PERINATAL Sexual Orientation Straight 10/03/2023 10 :05 AM RN PERINATAL documented as of this encounter Plan of Treatment Not on file documented as of this encounter Visit Diagnoses Not on filedocumented in this encounter
--- OUTSIDE RECORDS SUMMARY | 2024-11-15 03:28 | XMS_ITS | Encounter Summary ---
Author Organization [facility] Healthcare Address [address] [place] [address] Care Team Providers Care Adjuster Name Role Phone Laureano Lantigua MD Primary Care Provider +1- [phone] Encounter Details Date Type Department Care Team (Late st Contact Info) Description 08/21/2012 4:15 PM CDT - 08/21/2012 11:59 PM CDT Hospital Encounter [facility] CLINCONV Tony [place] MD [address] [place] [address] [address] [place] [address] Closed fracture of cervical vertebra (CMS/HCC) ([facility]); Accident; Unspecified place of occurrence Social History Tobacco Use Types Packs/Day Years Used Date Smoking Tobacco: Never Assessed Comments Unknown Sex and Gender Information Value Date Recorded Sex Assigned at Not on file Legal Sex Female 1:37 AM PHYSICIAN LOCUMS URGENT CARE Gender Identity Female 10/03/2023 10:05 AM PHYSICIAN LOCUMS URGENT CARE Sexual Orientation Straight 10/03/2023 10 :05 AM PHYSICIAN LOCUMS URGENT CARE documented as of this encounter Medications at Time of Discharge biotin (APPEAREX) 2,500 mcg tablet 2,500 mcg. 0 10/26/2010 03/10/20 documented as of this encounter Plan of Treatment Not on file documented as of this encounter Visit Diagnoses Diagnosis Closed fracture of cervical vertebra (CMS/HCC) (HCC) Closed fracture of cervical vertebra, unspecified level without mention of spinal cord injury Accident Unspecified accident Unspecified place of occurrence documented in this encounter Care Teams Adjuster Relationship Specialty Start Date End Date Laureano Lantigua MD [address] [place] [address] PCP - General 08/13/11 11/22/14 documented as of this encounter
--- OUTSIDE RECORDS SUMMARY | 2024-11-15 03:28 | XMS_ITS | Encounter Summary ---
Author Organization [facility] Healthcare Address [address] [place] [address] Care Team Providers Care Racker Octave Board Name Role Phone Laureano Lantigua MD Primary Care Provider +1- [phone] Encounter Details Date Type Department Care Team (Late st Contact Info) Description 11/05/2010 3:23 PM CORE STACKER - 11/05/2010 11:59 PM CORE STACKER Hospital [place]counter [place] [address] [place] [address] Pain in joint, shoulder region Social History Tobacco Use Types Packs/Day Years Used Date Smoking Tobacco: Never Assessed Comments Unknown Sex and Gender Information Value Date Recorded Sex Assigned at Not on file Legal Sex Female 1:37 AM CORE STACKER Gender Identity Female 10/03/2023 10:05 AM CORE STACKER Sexual Orientation Straight 10/03/2023 10 :05 AM CORE STACKER documented as of this encounter Medications at Time of Discharge biotin (APPEAREX) 2,500 mcg tablet 2,500 mcg. 0 10/26/2010 03/10/20 23 documented as of this encounter Plan of Treatment Not on file documented as of this encounter Visit Diagnoses Diagnosis Pain in joint, shoulder region documented in this encounter Care Teams Racker Octave Board Relationship Specialty Start Date End Date Laureano Lantigua MD [address] [place] [address] PCP - General 10/26/10 08/12/11 documented as of this encounter
--- OUTSIDE RECORDS SUMMARY | 2024-11-15 03:28 | XMS_ITS | Encounter Summary ---
Author Organization [facility] Healthcare Address [address] [place] [address] Care Team Providers Care Senior Cognos Developer Name Role Phone Unavailable Primary Care Provider Unavailabl e Encounter Details Date Type Department Care Team (Late st Contact Info) Description 10/19/2010 6:54 AM TAPPER HAND - 10/19/2010 11:59 PM TAPPER HAND Hospital Encounter [facility] Laureano Kumar MD [address] [place] [address] Chest pain; Shortness of breath Social History Tobacco Use Types Packs/Day Years Used Date Smoking Tobacco: Never Assessed Comments Unknown Sex and Gender Information Value Date Recorded Sex Assigned at Not on file Legal Sex Female 1:37 AM TAPPER HAND Gender Identity Female 10/03/2023 10:05 AM TAPPER HAND Sexual Orientation Straight 10/03/2023 10 :05 AM TAPPER HAND documented as of this encounter Plan of Treatment Not on file documented as of this encounter Visit Diagnoses Diagnosis Chest pain Unspecified chest pain Shortness of breath documented in this encounter
--- OUTSIDE RECORDS SUMMARY | 2024-11-15 03:28 | XMS_ITS | Encounter Summary ---
Author Organization [facility] Healthcare Address [address] [place] [address] Care Team Providers Care Personal Attendant Name Role Phone Unavailable Primary Care Provider Unavailabl e Encounter Details Date Type Department Care Team (Late st Contact Info) Description 03/08/2008 9:44 PM CDT - 03/09/2008 12:52 AM CDT Hospital Encounter [facility] CLINCONV Kary Richardson MD [address] [facility] [address] Laureano Lantigua MD [address] [place] [address] Social History Tobacco Use Types Packs/Day Years Used Date Smoking Tobacco: Never Assessed Comments Unknown Sex and Gender Information Value Date Recorded Sex Assigned at Not on file Legal Sex Female 1:37 AM HEALTH AND SOCIAL CARE TEACHER Gender Identity Female 10/03/2023 10:05 AM HEALTH AND SOCIAL CARE TEACHER Sexual Orientation Straight 10/03/2023 10 :05 AM HEALTH AND SOCIAL CARE TEACHER documented as of this encounter Plan of Treatment Not on file documented as of this encounter Visit Diagnoses Not on filedocumented in this encounter
--- OUTSIDE RECORDS SUMMARY | 2024-11-15 03:28 | XMS_ITS | Encounter Summary ---
Author Organization [facility] Healthcare Address [address] [place] [address] Care Team Providers Care Warehouse Processor Name Role Phone Laureano Lantigua MD Primary Care Provider +1- [phone] Encounter Details Date Type Department Care Team (Late st Contact Info) Description 06/11/2012 11:25 AM CDT - 06/11/2012 11:59 PM CDT Hospital Encounter [facility] CLINCONV Tony [place] MD [address] [place] [address] [address] [place] [address] Social History Tobacco Use Types Packs/Day Years Used Date Smoking Tobacco: Never Assessed Comments Unknown Sex and Gender Information Value Date Recorded Sex Assigned at Not on file Legal Sex Female 1:37 AM HEALTH ADMINISTRATOR Gender Identity Female 10/03/2023 10:05 AM HEALTH ADMINISTRATOR Sexual Orientation Straight 10/03/2023 10 :05 AM HEALTH ADMINISTRATOR documented as of this encounter Medications at Time of Discharge biotin (APPEAREX) 2,500 mcg tablet 2,500 mcg. 0 10/26/2010 03/10/20 23 documented as of this encounter Plan of Treatment Not on file documented as of this encounter Visit Diagnoses Not on filedocumented in this encounter Care Teams Warehouse Processor Relationship Specialty Start Date End Date Laureano Lantigua MD [address] [place] [address] PCP - General 08/13/11 11/22/14 documented as of this encounter
--- OUTSIDE RECORDS SUMMARY | 2024-11-15 03:28 | XMS_ITS | Encounter Summary ---
Author Organization [facility] Healthcare Address [address] [place] [address] Care Team Providers Care Nuclear Reactor Engineer Name Role Phone Laureano Lantigua MD Primary Care Provider +1- [phone] Encounter Details Date Type Department Care Team (Late st Contact Info) Description 02/01/2011 6:59 PM CDT - 02/01/2011 11:59 PM CDT Hospital Encounter [place] [address] [address] Social History Tobacco Use Types Packs/Day Years Used Date Smoking Tobacco: Never Assessed Comments Unknown Sex and Gender Information Value Date Recorded Sex Assigned at Not on file Legal Sex Female 1:37 AM CAN CUTTER Gender Identity Female 10/03/2023 10:05 AM CAN CUTTER Sexual Orientation Straight 10/03/2023 10 :05 AM CAN CUTTER documented as of this encounter Medications at Time of Discharge biotin (APPEAREX) 2,500 mcg tablet 2,500 mcg. 0 10/26/2010 03/10/20 23 documented as of this encounter Plan of Treatment Not on file documented as of this encounter Visit Diagnoses Not on filedocumented in this encounter Care Teams Nuclear Reactor Engineer Relationship Specialty Start Date End Date Laureano Lantigua MD [address] [place] [address] PCP - General 10/26/10 08/12/11 documented as of this encounter
--- OUTSIDE RECORDS SUMMARY | 2024-11-15 03:28 | XMS_ITS | Encounter Summary ---
Author Organization [facility] Healthcare Address [address] [place] [address] Care Team Providers Care Skein Mercerizing Machine Operator Name Role Phone Laureano Lantigua MD Primary Care Provider +1- [phone] Encounter Details Date Type Department Care Team (Late st Contact Info) Description 02/07/2011 11:40 AM CDT - 02/07/2011 3:27 PM CDT Hospital Encounter [facility] BEATRISCONAlexandro Live Tariq Latif, MD [address] [address] Myalgia and myositis Social History Tobacco Use Types Packs/Day Years Used Date Smoking Tobacco: Never Assessed Comments Unknown Sex and Gender Information Value Date Recorded Sex Assigned at Not on file Legal Sex Female 1:37 AM MACHINE GRAINER Gender Identity Female 10/03/2023 10:05 AM MACHINE GRAINER Sexual Orientation Straight 10/03/2023 10 :05 AM MACHINE GRAINER documented as of this encounter Medications at Time of Discharge biotin (APPEAREX) 2,500 mcg tablet 2,500 mcg. 0 10/26/2010 03/10/20 documented as of this encounter Plan of Treatment Not on file documented as of this encounter Visit Diagnoses Diagnosis Myalgia and myositis Unspecified myalgia and myositis documented in this encounter Care Teams Skein Mercerizing Machine Operator Relationship Specialty Start Date End Date Laureano Lantigua MD [address] [place] [address] PCP - General 10/26/10 08/12/11 documented as of this encounter
--- OUTSIDE RECORDS SUMMARY | 2024-11-15 03:28 | XMS_ITS | Encounter Summary ---
Author Organization [facility] Facility Care Team Providers Care Historical Records Administrator Name Role Phone Laureano Lantigua MD Primary Care Provider [phone] Encounter Details Date Type Department Care Team (Late st Contact Info) Description 04/10/2012 7:36 AM CDT - 11/16/2012 11:59 PM EMISSIONS REPAIR TECHNICIAN Hospital Encounter [facility] Kaylee, Edward Coppola MD [facility] [place] [address] Sacroiliitis, not elsewhere classified (HCC); Other chronic pain; Essential hypertension; Cervical spondylosis without myelopathy Social History Tobacco Use Types Packs/Day Years Used Date Smoking Tobacco: Never Assessed Comments Unknown Sex and Gender Information Value Date Recorded Sex Assigned at Not on file Legal Sex Female 1:37 AM EMISSIONS REPAIR TECHNICIAN Gender Identity Female 10/03/2023 10:05 AM EMISSIONS REPAIR TECHNICIAN Sexual Orientation Straight 10/03/2023 10 :05 AM EMISSIONS REPAIR TECHNICIAN documented as of this encounter Medications at Time of Discharge biotin (APPEAREX) 2,500 mcg tablet 2,500 mcg. 0 10/26/2010 03/10/20 documented as of this encounter Plan of Treatment Not on file documented as of this encounter Visit Diagnoses Diagnosis Sacroiliitis, not elsewhere classified (HCC) Sacroiliitis, not elsewhere classified Other chronic pain Essential hypertension Unspecified essential hypertension Cervical spondylosis without myelopathy documented in this encounter Care Teams Historical Records Administrator Relationship Specialty Start Date End Date Laureano Lantigua MD [address] [place] [address] PCP - General 08/13/11 11/22/14 documented as of this encounter
--- OUTSIDE RECORDS SUMMARY | 2024-11-15 03:28 | XMS_ITS | Encounter Summary ---
Author Organization [facility] Healthcare Address [address] [place] [address] Care Team Providers Care Senior Construction Estimator Name Role Phone Laureano Lantigua MD Primary Care Provider [phone] Encounter Details Date Type Department Care Team (Late st Contact Info) Description 05/10/2011 9:54 AM CDT - 05/10/2011 11:59 PM CDT [place] [address] [address] Pain in soft tissues of limb Social History Tobacco Use Types Packs/Day Years Used Date Smoking Tobacco: Never Assessed Comments Unknown Sex and Gender Information Value Date Recorded Sex Assigned at Not on file Legal Sex Female 1:37 AM INSIDE SALES ADMINISTRATOR Gender Identity Female 10/03/2023 10:05 AM INSIDE SALES ADMINISTRATOR Sexual Orientation Straight 10/03/2023 10 :05 AM INSIDE SALES ADMINISTRATOR documented as of this encounter Medications at Time of Discharge biotin (APPEAREX) 2,500 mcg tablet 2,500 mcg. 0 10/26/2010 03/10/20 23 documented as of this encounter Plan of Treatment Not on file documented as of this encounter Visit Diagnoses Diagnosis Pain in soft tissues of limb documented in this encounter Care Teams Senior Construction Estimator Relationship Specialty Start Date End Date Laureano Lantigua MD [address] [place] [address] PCP - General 10/26/10 08/12/11 documented as of this encounter
--- OUTSIDE RECORDS SUMMARY | 2024-11-15 03:28 | XMS_ITS | Encounter Summary ---
Author Organization [facility] Healthcare Address [address] [place] [address] Care Team Providers Care Material Control Analyst Name Role Phone Laureano Lantigua MD Primary Care Provider [phone] Encounter Details Date Type Department Care Team (Late st Contact Info) Description 07/24/2011 5:20 PM CDT - 07/24/2011 11:45 PM CDT Hospital Encounter [facility] Sg Dixon MD 1 [facility] # [place] [address] Tony Washington MD 4 [facility] [address] [place] [address] Abdominal pain Social History Tobacco Use Types Packs/Day Years Used Date Smoking Tobacco: Never Assessed Comments Unknown Sex and Gender Information Value Date Recorded Sex Assigned at Not on file Legal Sex Female 1:37 AM RESIDENT CARE AIDE Gender Identity Female 10/03/2023 10:05 AM RESIDENT CARE AIDE Sexual Orientation Straight 10/03/2023 10 :05 AM RESIDENT CARE AIDE documented as of this encounter Medications at Time of Discharge biotin (APPEAREX) 2,500 mcg tablet 2,500 mcg. 0 10/26/2010 03/10/20 23 documented as of this encounter Plan of Treatment Not on file documented as of this encounter Visit Diagnoses Diagnosis Abdominal pain Abdominal pain, unspecified site documented in this encounter Care Teams Material Control Analyst Relationship Specialty Start Date End Date Laureano Lantigua MD [address] [place] [address] PCP - General 10/26/10 08/12/11 documented as of this encounter
--- OUTSIDE RECORDS SUMMARY | 2024-11-15 03:28 | XMS_ITS | Encounter Summary ---
Author Organization [facility] Healthcare Address [address] [place] [address] Care Team Providers Care Investment Professional Name Role Phone Laureano Lantigua MD Primary Care Provider [phone]- [phone] Encounter Details Date Type Department Care Team (Late st Contact Info) Description 04/11/2011 12:01 AM CDT - 04/11/2011 11:59 PM CDT Hospital Encounter [facility] Tony Swan MD [address] [place] [address] [address] [place] [address] Other screening mammogram Social History Tobacco Use Types Packs/Day Years Used Date Smoking Tobacco: Never Assessed Comments Unknown Sex and Gender Information Value Date Recorded Sex Assigned at Not on file Legal Sex Female 1:37 AM PLASTICS SCIENTIST Gender Identity Female 10/03/2023 10:05 AM PLASTICS SCIENTIST Sexual Orientation Straight 10/03/2023 10 :05 AM PLASTICS SCIENTIST documented as of this encounter Medications at Time of Discharge biotin (APPEAREX) 2,500 mcg tablet 2,500 mcg. 0 10/26/2010 03/10/20 documented as of this encounter Plan of Treatment Not on file documented as of this encounter Visit Diagnoses Diagnosis Other screening mammogram documented in this encounter Care Teams Investment Professional Relationship Specialty Start Date End Date Laureano aLntigua MD [address] [place] [address] PCP - General 10/26/10 08/12/11 documented as of this encounter
== END 2024-11-09 13:19 | disposition home or self-care (01) ==
LOC: ANHSURGERY 10:23 → ANH3MEDSUR 15:42
PROVIDERS: Physician Assistant Surgical; PCP Internal Medicine Infectious Disease; Visit Provider Orthopaedic Surgery
PROC: (CPT 27130; principal; 2024-11-08 12:00)
DX: M16.12 Unilateral primary osteoarthritis, left hip (principal); M25.752 Osteophyte, left hip; M94.252 Chondromalacia, left hip; J45.909 Unspecified asthma, uncomplicated; K21.9 Gastro-esophageal reflux disease without esophagitis; E28.2 Polycystic ovarian syndrome; Z79.891 Long term (current) use of opiate analgesic; Z79.82 Long term (current) use of aspirin; Z98.890 Other specified postprocedural states; Z98.1 Arthrodesis status; Z98.84 Bariatric surgery status; Z80.42 Family history of malignant neoplasm of prostate; Z82.49 Family history of ischemic heart disease and other diseases of the circulatory system
CPT/HCPCS: 27130; 36415; 73502; 80048; 85025; 86850; 86900; 86901; 97110; 97161; 97165; 97530; 97535; A9270; C1776; J0171; J0690; J1171; J1200; J1741; J1885; J2003; J2250; J2371; J2405; J2704; J2795; J3010; J7030; J7120

== ENCOUNTER 2024-12-29 10:31 | Outpatient (CLI) | payer BC, SELFPAY ==
--- NOTE | ~2024-12-29 | XR_ITS ---
AP view of the pelvis and AP and lateral views of the left hip Clinical history: Pain Findings: No acute fracture or dislocation is seen. Osseous alignment is anatomic. Left hip arthropla sty in place. No hardware complication. Soft tissues are unremarkable. Impression: No acute abnormality is seen. Left hip arthroplasty. Reviewed, dictated and finalized at [facility]. O ENGRAVER Impression: No acute abnormality is seen. Left hip arthroplasty.
--- OUTSIDE RECORDS SUMMARY | 2024-12-29 11:25 | XMS_ITS | Encounter Summary ---
Author Organization [facility] Address [address] [place] [address] Phone Care Team Providers Care Brakes Inspector Name Role Phone Laureano Lantigua MD Primary Care Provider Tony Washington MD Unavailable [phone] Anahy Rosales MD Unavailable [phone] Nathalia Rodas PT Unavailable Unavailable Encounter Details Date Type Department Care Team (Late st Contact Info) Description 12/25/2022 Orders Only [facility] [address] [facility] [place] [address] Scanning, Provider Social History Tobacco [...] file Legal Sex Female 1:37 AM NIGHT PATROL INSPECTOR Gender Identity Female 10/03/2023 10:05 AM NIGHT PATROL INSPECTOR Sexual Orientation Straight 10/03/2023 10 :05 AM NIGHT PATROL INSPECTOR documented as of this encounter Plan of Treatment Not on file documented as of this encounter Procedures Procedure Name Priority Date/Time Associated Diagnosis Comments SCAN - RADIOLOGY/IMAGING 12/25/2022 documented in this encounter Results * SCAN - RADIOLOGY/IMAGING (12/25/2022) Anatomical Region Laterality Modality Other us Provider Scanning Final Result documented in this encounter Visit Diagnoses Not on filedocumented in this encounter Care Teams Brakes Inspector Relationship Specialty Start Date End Date Laureano Lantigua MD [address] [place] [address] PCP - General Internal Medicine 07/30/18 Tony Washington MD [address] [facility] [address] [facility] [place] [address] Special Events Assistant Obstetrics and Gynecology 11/16/18 Anahy Rosales MD [address] [facility] [address] [facility] [place] [address] Referring Physician Psychiatry 11/16/18 Nathalia Rodas, PT Physical Therapist Physical Therapy 02/14/23 documented as of this encounter
--- OUTSIDE RECORDS SUMMARY | 2024-12-29 11:25 | XMS_ITS | Encounter Summary ---
Author Organization [facility] Address [address] [address] Phone Care Team Providers Care Hris Coordinator Name Role Phone Laureano Lantigua MD Primary Care Provider Tony Washington MD Unavailable [phone] Anahy Rosales MD Unavailable [phone] Nathalia Rodas PT Unavailable Unavailable Encounter Details Date Type Department Care Team (Late st Contact Info) Description 12/31/2022 Orders Only [facility] [address] [place] [address] Scanning, Provider Social History Tobacco [...] file Legal Sex Female 1:37 AM HEALTH ADMINISTRATION TEACHER Gender Identity Female 10/03/2023 10:05 AM HEALTH ADMINISTRATION TEACHER Sexual Orientation Straight 10/03/2023 10 :05 AM HEALTH ADMINISTRATION TEACHER documented as of this encounter Plan of Treatment Not on file documented as of this encounter Procedures Procedure Name Priority Date/Time Associated Diagnosis Comments SCAN - RADIOLOGY/IMAGING 12/31/2022 documented in this encounter Results * SCAN - RADIOLOGY/IMAGING (12/31/2022) Anatomical Region Laterality Modality Other us Provider Scanning Final Result documented in this encounter Visit Diagnoses Not on filedocumented in this encounter Care Teams Hris Coordinator Relationship Specialty Start Date End Date Laureano Lantigua MD [address] [place] [address] PCP - General Internal Medicine 07/30/18 Tony Washington MD [address] [facility] [address] [facility] [place] [address] Criminalist Obstetrics and Gynecology 11/16/18 Anahy Rosales MD [address] [facility] [address] [facility] [place] [address] Referring Physician Psychiatry 11/16/18 Nathalia Rodas, PT Physical Therapist Physical Therapy 02/14/23 documented as of this encounter
--- OUTSIDE RECORDS SUMMARY | 2024-12-29 11:26 | XMS_ITS | Clinical Summary ---
Author Organization [facility] [employer] Address [address] [place] [address] Care Team Providers Care Drawing Press Operator Name Role Phone Kelly Roberts RN Unavailable [phone] Iwona Lorenz MD Primary Care Provider [phone] Source Comments [facility],non-owned Affiliates and Associated Physician Practices is amultiple site organization consisting of ambulatory clinics and hospital sitesin [place], [place], [place] and [place]. This disclosure is being madepursuant to the Care Everywhere program and may not contain all information available regarding this patient. Last updated 18.[facility] Allergies Active Allergy Reactions Criticality Noted Date [...] Comments Blood Pressure 122/80 01/14/2022 9:35 AM BUTTER GRADER Pulse 79 01/14/2022 9:35 AM BUTTER GRADER Temperature 36.4 C (97.6 F) 01/14/2022 9:35 AM BUTTER GRADER Respiratory Rate 20 08/08/2021 11:54 AM CDT Oxygen Saturation 98% 08/28/2021 1:24 PM CDT Inhaled Oxygen Concentration - - Weight 94.4 kg (208 lb 3.2 oz) 01/14/2022 9:35 A M BUTTER GRADER Height 182.9 cm (6') 01/14/2022 9:35 AM BUTTER GRADER Body Mass Index 28.24 01/14/2022 9:35 AM BUTTER GRADER Plan of Treatment Health Maintenance Due Date Last Done Comments COLOGUARD (AGES 45-75) - COLON CA SCREENING [address] COLONOGRAPHY - COLON CA SCREENING 1971 FLEX SIG - COLON CA SCREENING 1971 PAP SMEAR 1971 HIV SCREENING 1986 HEPATITIS C SCREENING 02/17/1989 DTAP/TDAP/TD VACCINES (1 - Tdap) 1990 HEPATITIS B VACCINE (1 of 3 - 19+ 3-dose series) 1990 PNEUMOCOCCAL VACCINE 50+ (1 of 2 - PCV) 1990 PNEUMOCOCCAL VACCINE (1 of 2 - PCV) 1990 FIT - COLON CA SCREENING 11/22/2020 11/22/2019 MAMMOGRAM 02/08/2021 02/08/2019 ZOSTER VACCINE (1 of 2) 2021 SCREENING FOR DIABETES 03/08/2022 9, 03/08/2019, 12/29/2014, Additional history exists LIPID TESTING 03/08/2024 03/08/2019 COVID-19 VACCINE ( season) 2024 INFLUENZA VACCINE (#1) 2024 08/11/2021, 2015 DEPRESSION SCREENING 11/17/2024 COLONOSCOPY - COLON CA SCREENING 03/27/2031 03/27/2021 Colorectal Cancer Screening 03/27/2031 HIB VACCINE Aged Out No longer eligi ble based on patient's age to complete this topic HPV VACCINE Aged Out No longer eligi ble based on patient's age to complete this topic MENINGOCOCCAL (Group B) VACCINE Aged Out No longer eligible based on [...] COMPREHENSIVE METABOLIC PANEL (03/08/2019 11:26 AM CDT) Glucose 94 65 - 99 mg/dL [facility] Comment: Fasting reference interval BUN 12 7 - 25 mg/dL [facility] Creatinine 0.83 0.50 - 1.10 mg/dL [facility] eGFR by MDRD 83 > OR = 60 mL/min/1. 73m2 [facility] eGFR by MDRD 97 > OR = 60 mL/min/1. 73m2 [facility] BUN/Creatinine Ratio NOT APPLICABLE 6 - (calc) [facility] Sodium 141 135 - 146 [...] 29 U/L [facility] Comment: Test Performed at: [facility] [address] [place] [address] TANIA PATEL DO,MPH Blood BLOOD SPECIMEN / Unknown 03/08/2019 11:26 AM CDT 03/08/2019 11:[address] [facility] FACILITIES FLIGHT CHECK P[facility] - [facility]OSHUA BUNNY ORDERABLES Performing Organization Address City/State/[facility] Co de Phone Number [facility] [address] [place] [address] * (ABNORMAL) LIPID PROFILE (LIPID PANEL) (03/08/2019 11:26 AM CDT) Cholesterol 193 <200 mg/dL [facility] HDL Cholesterol 60 >50 mg/dL [facility] Triglycerides 114 <150 mg/dL [facility] LDL Calculated 111(H) mg/dL (calc) [facility] Comment: Reference range: <100 Desirable range <100 mg/dL for primary prevention; <70 mg/dL for patients with CHD or diabetic patients with > or = 2 CHD risk factors. LDL-C is now calculated using the Hayden-Torres calculation, which is a validated novel method providing better accuracy than the Friedewald equation in the estimation of LDL-C. Hayden SS et al. UYEN. 2013;310(19): 4926-1688 (http://education.[employer]Healthcare Bluebook/faq/TEM251) CHOL/HDLC RATIO 3.2 <5.0 (calc) [facility] Non HDL Cholesterol 133(H) <130 mg/dL (calc) [facility] Comment: For patients with diabetes plus 1 major ASCVD risk factor, treating to a non-HDL-C goal of <100 mg/dL (LDL-C of <70 mg/dL) is considered a therapeutic option. 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
--- OUTSIDE RECORDS SUMMARY | 2024-12-29 11:26 | XMS_ITS | Clinical Summary ---
Author Organization [facility] s Address [address] [place] [address] Care Team Providers Care Pool Hand Name Role Phone Laureano Lantigua MD Primary Care Provider [phone] Tony Washington MD Unavailable [phone] Anahy Rosales MD Unavailable [phone] Nathalia Rodas PT Unavailable Unavailable Allergies [...] inhaler 2 puffs qid prn 1 each 2 Active Additional Information Patient taking differently: 2 puff inhalation Every 6 hours PRN, wheezing, shortness of breath, 2 puffs qid prn,Indications: Acute Asthma Attack, Informant: Self, Reported on 09/19/2023 magnesium phosphate, bulk, powderIndications :supplement Take 1 tablet by mouth every morning Active traZODone (DESYREL) 50 mg tabletIndications :sleep Take 1 tablet (50 mg total) by mouth nightly 3 Active methylphenidate HCl (RITALIN) 5 mg tabletIndications :Attention-Defici t Hyperactivity Disorder Take 1 tablet (5 mg total) by mouth daily with lunch 3 Active diazePAM (VALIUM) 5 mg tablet Take 1 tablet (5 mg total) by mouth every 6 (six) hours as needed for anxiety for up to 7 days 28 tablet 4 Active oxyCODONE-acetami nophen (PERCOCET) 5-325 mg per tabletIndications :Pain Take 1 tablet by mouth every 4 (four) hours as needed for pain 30 tablet 4 Active Additional Information Patient not taking.Reported on 10/25/2024 estradioL (VIVELLE-DOT) 0.075 mg/24 hrIndications:Vas omotor Symptoms associated with Menopause Place 1 patch on the skin 2 (two) times a week 26 patch 3 4 025 Active busPIRone (BUSPAR) 15 mg tablet Active Concerta 36 mg CR tablet Active buPROPion SR (WELLBUTRIN SR) 100 mg 12 hr tablet Take 1 tablet (100 mg total) by mouth 2 (two) times a day 4 Active meloxicam (MOBIC) 15 mg tablet TAKE 1 TABLET (15 MG TOTAL) BY MOUTH DAILY. 90 tablet 4 Active desipramine (NORPRAMIN) 25 mg tablet Take 1 tablet (25 mg total) by mouth daily 30 tablet 3 4 025 Active tiZANidine (ZANAFLEX) 4 mg tablet Take 1 tablet (4 mg total) by mouth every 8 (eight) hours as needed for muscle spasms 90 tablet 3 4 Active sucralfate (CARAFATE) suspension 1 gram/10 mL Take 5 mL (0.5 g total) by mouth 4 (four) times a day 1800 mL 4 025 Active lisinopril-hydroC HLOROthiazide (ZESTORETIC) 20-25 mg per tabletIndications :hypertension Take 1 tablet by mouth daily 90 tablet 4 4 025 Active Active Problems Problem Noted Date Diagnosed Date ECG abnormality 10/26/2024 Pre-op exam 10/25/2024 Assessment & Plan (10/25/2024 7:28 PM RUBBER GOODS INSPECTOR): Pt is medically optimized for hip surgery Forms were filled out today Will get the labs and EKG readings from [facility] Elevated blood pressure read ing with diagnosis of hypertension 10/25/2024 Assessment & Plan (10/25/2024 7:27 PM RUBBER GOODS INSPECTOR): Goal bp is 130/80 or under Low [...] (01/03/2021): Added automatically from request for surgery [id number] Routine physical examination 11/16/2018 11/22/2019 Encounters Date Type Department Care Team Description 12/28/2024 10:00 AM RUBBER GOODS INSPECTOR Office Visit [facility] [address] [phone] [facility] Generalized anxiety disorder (Primary Dx); Other chronic pain 12/20/2024 9:15 AM RUBBER GOODS INSPECTOR Therapy [facility] [place] [address] Nathalia Rodas, PT Presence of left artificial hip joint (Primary Dx); Lumbar radiculopathy 12/16/2024 3:45 PM RUBBER GOODS INSPECTOR Therapy [facility] [place] [address] [address] Nathalia Rodas, PT Presence of left artificial hip joint (Primary Dx); Lumbar radiculopathy 12/15/2024 7:45 AM RUBBER GOODS INSPECTOR Therapy [facility] [place] [address] Nathalia Rodas, PT Presence of left artificial hip joint (Primary Dx) 12/08/2024 10:00 AM RUBBER GOODS INSPECTOR Telemedicine [facility] [address] [place] [phone] Ct Zhang, PhD Generalized anxiety disorder (Primary Dx); Other chronic pain 12/08/2024 7:45 AM RUBBER GOODS INSPECTOR Therapy [facility] [place] [address] Nathalia Rodas, PT Presence of left artificial hip joint 12/08/2024 Plan of Care Documentation [facility] [place] [address] 12/01/2024 10:00 AM RUBBER GOODS INSPECTOR Telemedicine [facility] [address] [place] [phone] [address] Zhang, Generalized anxiety disorder (Primary Dx); Other chronic pain 11/29/2024 Orders Only [facility] [address] [facility] [address] [place] [phone] Scanning, Provider 11/18/2024 11:00 AM RUBBER GOODS INSPECTOR Telemedicine [facility] [address] [place] [phone] Ct Zhang, PhD Generalized anxiety disorder (Primary Dx); Other chronic pain 11/01/2024 2:00 PM RUBBER GOODS INSPECTOR Office Visit [facility] [address] [place] [phone] [address] Zhang, Generalized anxiety disorder (Primary Dx); Other chronic pain 10/26/2024 8:04 PM RUBBER GOODS INSPECTOR - 10/26/2024 9:33 PM RUBBER GOODS INSPECTOR Emergency [facility] Department [address] [place] [address] Elevated blood pressure reading with diagnosis of hypertension (Primary Dx); ECG abnormality Discharge Disposition: Discharge to home or self care 10/26/2024 8:41 AM RUBBER GOODS INSPECTOR - 10/26/2024 8:56 AM RUBBER GOODS INSPECTOR Emergency [facility] Department [address] [place] [address] Discharge Disposition: Left without being seen 10/26/2024 Telephone [facility] [address] [place] [phone] Laureano Lantigua MD Abnormal ECG 10/25/2024 2:45 PM RUBBER GOODS INSPECTOR Office Visit [facility] [address] [place] [phone] Laureano Lantigua MD Pre-op exam (Primary Dx); Hypertension, essential 10/25/2024 Telephone [facility] 1 [facility] [address] [place] [phone] Tatyana Akbar RN 10/08/2024 12:00 PM RUBBER GOODS INSPECTOR Office Visit [facility] [address] [place] [phone] Ct Zhang, PhD Other chronic pain (Primary Dx); Adjustment disorder with mixed anxiety and depressed mood; Alcohol use disorder 10/06/2024 Orders Only [facility] [address] [facility] [address] [place] [phone] Scanning, Provider 10/01/2024 2:00 PM RUBBER GOODS INSPECTOR Office Visit [facility] [address] [place] [phone] Ct Zhang, PhD Other chronic pain (Primary Dx); Lumbar back pain; Adjustment disorder with mixed anxiety and depressed mood from Last 3 Months Immunizations Name Administration [...] SURGERY 11/07/2020 Left x2 COLONOSCOPY 03/27/2021 1st [facility] SURGERY 07/18/2021 - 08/16/2021 Basil Cell SLEEVE [...] Ab Hammer toe Hammer toe; Comm ents: [facility] 06/27/2014 - Retinal detachment Detachment of retina; Comments: [facility] 06/27/2014 - Hypercholesterolemia High choles terol; Comments: [facility] 06/27/2014 - Asthma Asthma; Comments : [facility] 06/27/2014 - Female infertility Infertility, female Hx Other Medical ; Outc ome: [id number] week 7lb(s) 7 oz Male Fibrocystic breast Motion sickness GERD (gastroesophageal reflux disease) Cancer (CMS/HCC) (HCC) 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 right [...] file Legal Sex Female 1:37 AM RUBBER GOODS INSPECTOR Gender Identity Female 10/03/2023 10:05 AM RUBBER GOODS INSPECTOR Sexual Orientation Straight 10/03/2023 10 :05 AM RUBBER GOODS INSPECTOR Obstetrics History Para Term AB IAB SAB Ectopic Multiple Livin g Live Births 2 1 1 0 1 0 1 0 0 1 1 Date Outcome GA Total Labor Labor/2nd/3rd Weight Sex Type Anes PTL Casandra A1 A5 Name Clin Term Vag-Spo nt SAB Last Filed Vital Signs Vital Sign Reading Time Taken Comments Blood Pressure 134/85 10/26/2024 9:32 PM RUBBER GOODS INSPECTOR Pulse 80 10/26/2024 9:32 PM RUBBER GOODS INSPECTOR Temperature 36.6 C (97.8 F) 10/26/2024 7:32 PM RUBBER GOODS INSPECTOR Respiratory Rate 18 10/26/2024 9:32 PM RUBBER GOODS INSPECTOR Oxygen Saturation 98% 10/26/2024 9:32 PM RUBBER GOODS INSPECTOR Inhaled Oxygen Concentration - - Weight 94.3 kg (208 lb) 10/26/2024 8:44 AM RUBBER GOODS INSPECTOR Height 182.9 cm (6') 10/26/2024 8:44 AM RUBBER GOODS INSPECTOR Body Mass Index 28.21 10/26/2024 8:44 AM RUBBER GOODS INSPECTOR Plan of Treatment Health Maintenance Due Date [...] as needed Medical Devices Implanted Type Area Wind Tunnel Technician Device Identifier Shelf Expiration Date Model / Serial / Lot Lspine Fusion Spine Lumbar Procedures Procedure Name Priority Date/Time Associated Diagnosis Comments SCAN - RADIOLOGY/IMAGING 11/29/2024 TROPONIN T HIGH-SENSITIVITY 4-HR Timed 10/26/2024 7:54 PM RUBBER GOODS INSPECTOR EGFR STAT 10/26/2024 3:34 PM RUBBER GOODS INSPECTOR DIFFERENTIAL AUTO STAT 10/26/2024 3:3 4 PM RUBBER GOODS INSPECTOR TROPONIN T HIGH-SENSITIVITY SERIES (BASELINE, 2HR, 4HR, 6HR) STAT 10/26/2024 3:34 PM RUBBER GOODS INSPECTOR CBC WITH AUTO DIFFERENTIAL STAT 10/26/2024 3:34 PM RUBBER GOODS INSPECTOR COMPREHENSIVE METABOLIC PANEL STAT 10/26/2024 3:34 PM RUBBER GOODS INSPECTOR ECG 12-LEAD STAT 10/26/2024 2:31 PM RUBBER GOODS INSPECTOR ECG 12-LEAD STAT 10/26/2024 8:50 AM RUBBER GOODS INSPECTOR SCAN - RADIOLOGY/IMAGING 10/06/2024 PAP, REFLEX HPV Routine 02/16/2024 3:25 PM CDT Well woman exam COLONOSCOPY 03/27/2021 11:21 AM CDT SCREENING MAMMOGRAM BILATERAL W RADHA Schedule Routine, Read Routine (OP Routine) 01/01/2021 8:09 AM RUBBER GOODS INSPECTOR Encounter for screening mammogram for malignant neoplasm of breast from Last 3 Months or Most Recently Relevant to Health Maintenance Results * SCAN - RADIOLOGY/IMAGING (11/29/2024) Anatomical Region Laterality Modality Other us Provider Scanning Final Result * Troponin T high-sensitivity 4-hour (10/26/2024 7:54 PM RUBBER GOODS INSPECTOR) Trop T hs <6 <=14 ng/L Comment: Interpretive Data For further hscTnT resources including the diagnostic algorithm and an aid in interpretation, copy and paste this link: https://nrl.testcatalog.org/show/hsTrop Current Interpretive Data last revised 2020. Trop T hs delta 0 ng/L [facility] ([facility]EL) Trop T hs interp Insignificant [facility] ([facility]) Blood 10/26/2024 7:54 PM RUBBER GOODS INSPECTOR 10/26/2024 8:00 PM RUBBER GOODS INSPECTOR Mac Dexter MD LAB BLOOD ORDERABLES Final R esult Performing Organization Address City/[facility]/ZIP Co de Phone Number DARIUS MoralesBUNCETON) 1 [facility] [place] [address] * Troponin T high-sensitivity series (baseline, 2hr, 4hr, 6hr) (10/26/2024 3:34 PM RUBBER GOODS INSPECTOR) Trop T hs <6 <=14 ng/L Comment: Interpretive Data For further hscTnT resources including the diagnostic algorithm and an aid in interpretation, copy and paste this link: https://nrl.testcatalog.org/show/hsTrop Current Interpretive Data last revised 2020. Blood 10/26/2024 3:34 PM RUBBER GOODS INSPECTOR 10/26/2024 3:37 PM RUBBER GOODS INSPECTOR Mac Dexter MD LAB BLOOD ORDERABLES Final R esult DARIUS MoralesBUNCETON) 1 [facility] [place] [address] * eGFR (10/26/2024 3:34 PM RUBBER GOODS INSPECTOR) eGFR >90 >=60 mL/min/1. 73 m2 Comment: Interpretive Data Reference Interval Normal >/= 90 mL/min/1.73m2 Mildly decreased* 60 - 89 mL/min/1.73m2 Mildly to moderately decreased 45 - 59 mL/min/1.73m2 Moderately to severely decreased 30 - 44 mL/min/1.73m2 Severely decreased 15 - 29 mL/min/1.73m2 Kidney Failure < 15 mL/min/1.73m2 *Relative to young adult level Estimated glomerular [...] last reviewed 2021. Blood 10/26/2024 3:34 PM RUBBER GOODS INSPECTOR 10/26/2024 3:37 PM RUBBER GOODS INSPECTOR Mac Dexter MD LAB BLOOD ORDERABLES Final R esult [facility] ([facility]) 1 [facility] [place] [address] * Differential, auto (10/26/2024 3:34 PM RUBBER GOODS INSPECTOR) Neutrophil abs 4.7 1.5 - 6.5 K/cumm [...] revised on 2018. Blood 10/26/2024 3:34 PM RUBBER GOODS INSPECTOR 10/26/2024 3:37 PM RUBBER GOODS INSPECTOR Mac Dexter MD LAB BLOOD ORDERABLES Final R esult [facility] ([facility]) 1 [facility] [place] [address] * CBC with auto differential (10/26/2024 3:34 PM RUBBER GOODS INSPECTOR) WBC 8.8 3.8 - 9.9 K/cumm Hgb [...] [facility] ([facility]) Blood 10/26/2024 3:34 PM RUBBER GOODS INSPECTOR 10/26/2024 3:37 PM RUBBER GOODS INSPECTOR Mac Dexter MD LAB BLOOD ORDERABLES Final R esult [facility] ([place]) 1 [facility] Department [place] [address] * Comprehensive metabolic panel (10/26/2024 3:34 PM RUBBER GOODS INSPECTOR) Sodium 137 135 - 145 mmol/L Potassium, [...] >/= 126 mg/dl is diagnostic for diabetes. Fasting is defined as no caloric intake [...] [facility] ([facility]) Blood 10/26/2024 3:34 PM RUBBER GOODS INSPECTOR 10/26/2024 3:37 PM RUBBER GOODS INSPECTOR Mac Dexter MD LAB BLOOD ORDERABLES Final R esult Performing Organization Address [facility] Co de Phone Number [facility] ([facility]) 1 [facility] Department [place] [address] * ECG 12 lead (10/26/2024 2:31 PM RUBBER GOODS INSPECTOR) 10/26/2024 2:31 PM RUBBER GOODS INSPECTOR Narrative [facility] - 10/26/2024 5:21 PM RUBBER GOODS INSPECTOR Vent Rate: 93 bpm RR Interval: 645 msec MD Interval: 156 msec QRS Duration: 89 msec QT Interval: 350 msec QTC Interval: 400 msec P-R-T [place]: 65 - 110 - 48 degrees IMPRESSION: SINUS RHYTHM POSSIBLE RIGHT VENTRICULAR HYPERTROPHY [SOME/ALL OF: PROMINENT R IN V1, LATE TRANSITION, RAD, YARIEL, SSS] SEPTAL MYOCARDIAL INFARCTION , PROBABLY OLD [40+ ms Q WAVE IN V1/V2] ABNORMAL ECG NO CHANGE FROM PREVIOUS TRACING NOTED Electronically Signed By: Armani Douglas MD Mac Dexter MD ECG ORDERABLES Final Result Performing Organization Address [facility] Co de Phone Number [facility] [place] [facility] * ECG 12 lead (10/26/2024 8:50 AM RUBBER GOODS INSPECTOR) 10/26/2024 8:50 AM RUBBER GOODS INSPECTOR Narrative [facility] - 10/26/2024 12:00 PM RUBBER GOODS INSPECTOR Vent Rate: 88 bpm RR Interval: 678 msec MD Interval: 141 msec QRS Duration: 86 msec QT Interval: 320 msec QTC Interval: 366 msec P-R-T [place]: -5 - 92 - 48 degrees IMPRESSION: SINUS RHYTHM BORDERLINE RIGHT AXIS DEVIATION [QRS AXIS > 90] SEPTAL MYOCARDIAL INFARCTION , OF INDETERMINATE AGE [40+ ms Q WAVE IN V1/V2] ABNORMAL ECG Electronically Signed By: Armani Douglas MD Bia Cast MD ECG ORDERABLES Final Res ult [facility] * SCAN - RADIOLOGY/IMAGING (10/06/2024) Anatomical Region Laterality Modality Other Provider Scanning Final Result * Pap, reflex HPV (02/16/2024 [...] has been evaluated with computer assisted technology. General Education Professor Joel Geronimo Comment: BKA, CT(ASCP) CT screening location: [place] [address] [address] [place] [address] Comment Arsenio Hwang Comment: EXPLANATORY NOTE: The [...] MD LAB CYTOLOGY ORDERABLES Fi nal Result [facility] [address] [address] [place] [address] * COLONOSCOPY (03/27/2021 11:21 AM CDT) Anatomical Region Laterality Modality Other Narrative Procedure Note Manuel Tanner MD - 03/27/2021 11:21 AM CDT [facility] Patient Name: Finesse Ramirez Procedure Date: 03/27/2021 11:21 AM Date of : 1970 Admit Type: Outpatient Age: 51 Gender: Female Attending MD: Manuel Tanner M.D. Room: [facility] ENDOSCOPY ROOM 1 Note Status: [...] under direct vision. The Pediatric Colonoscope [id number] was introducedthrough the anus and advanced to [...] 11:21 AM Procedure Code(s): --- Professional --- 99243, Colonoscopy, flexible; diagnostic, including collection of specimen(s) by brushing or washing, when performed (separateprocedure) Diagnosis Code(s): --- Professional --- Z12.11, Encounter for screening for malignant neoplasm of colon K64.8, Other hemorrhoids K57.30, Diverticulosis of large intestine without perforation orabscess without bleeding CPT copyright 2019 [employer]. All rights reserved. The codes documented in this report are preliminary and upon certified medical coder reviewmay be revised to meet current compliance requirements. Recognized by the [employer] for promoting quality in endoscopy Manuel Tanner MD ENDOSCOPY PROCEDURES Final Result * SCREENING MAMMOGRAM BILATERAL W RADHA (01/01/2021 8:09 AM RUBBER GOODS INSPECTOR) Anatomical Region Laterality Modality Breast Bilateral Mammography 01/01/2021 8:48 AM RUBBER GOODS INSPECTOR Impressions 01/01/2021 9:24 AM RUBBER GOODS INSPECTOR There is no mammographic evidence of malignancy. A 1 year screening mammogram is recommended. BI-RADS: 1 - Negative. The patient will be entered into a reminder system with a target due date of 1 year for her next mammogram. Electronically signed by: Rosalia Church MD Narrative 01/01/2021 9:24 AM RUBBER GOODS INSPECTOR EXAMINATION: SCREENING MAMMOGRAM BILATERAL W RADHA ORDERING HEALTHCARE PROVIDER: TONY WASHINGTON HISTORY: Routine screening mammography. COMPARISON: 02/08/2019, 11/11/2017 and 11/15/2015 TECHNIQUE: CC and MLO views of the bilateral breasts were obtained with digital technique using breast tomosynthesis with C view. Computer aided detection was utilized. FINDINGS: DENSITY: There are scattered fibroglandular elements in the bilateral breasts. BREASTS: There are no suspicious masses, suspicious calcifications, or other suspicious findings in either breast. There has been no suspicious interval change. us Tony Washington MD IMG MAMMO PROCEDURES Final Result from Last 3 Months or Most Recently Relevant to [place] [address] [place] [employer] W[employer] [employer] [address] [facility] [place] [address] BLUE ACCESS [employer] Advance Directives For more information, please contact: [phone] * Full Code (Latest Code Status on File) Date Activated Date Inactivated Comments 03/12/2023 10:30 AM 03/12/2023 3:15 PM * Full Code Date Activated Date Inactivated Comments 03/27/2021 11:43 AM 03/27/2021 5:47 PM Care Teams Pool Hand Relationship Specialty Start Date End Date Laureano Lantigua MD [address] [place] [address] PCP - General Internal Medicine 07/30/18 Tony Washington MD [address] [place] [address] [address] [place] [address] Nickel Plater Obstetrics and Gynecology 11/16/18 Anahy Rosales MD [address] [place] [address] [address] [place] [address] Referring Physician Psychiatry 11/16/18 Nathalia Rodas, PT Physical Therapist Physical Therapy 02/14/23
--- OUTSIDE RECORDS SUMMARY | 2024-12-29 11:26 | XMS_ITS | Encounter Summary ---
Author Organization [facility] Address [address] [facility] [address] Care Team Providers Care Beef Cattle Farmer Name Role Phone Kelly Roberts RN Unavailable [phone] Iwona Lorenz MD Primary Care Provider [phone] Encounter Details Date Type Department Care Team (Late st Contact Info) Description 05/03/2011 [facility] Outpatient Visit EXTERNAL NON-[facility] [place] [address] [place] [address] Social History Tobacco Use Types [...] on filedocumented in this encounter Care Teams Beef Cattle Farmer Relationship Specialty Start [place] [address] [place] [address] PCP - General 01/08/24 Kelly Roberts RN Pharmacist Per Diem 2/11/15 documented as of this encounter
--- OUTSIDE RECORDS SUMMARY | 2024-12-29 11:26 | XMS_ITS | Encounter Summary ---
Author Organization [facility] Address [address] [place] [address] Phone Care Team Providers Care Alliance Manager Name Role Phone Laureano Lantigua MD Primary Care Provider [phone] Tony [place] MD Unavailable [phone] Anahy Rosales MD Unavailable [phone] Nathalia Rodas PT Unavailable Unavailable Encounter Details Date Type Department Care Team (Late st Contact Info) Description 12/28/2024 10:00 AM FREELANCE ART DIRECTOR Office Visit [facility] Pain Management [address] [place] [address] Ct Zhang, PhD [address] [place] [address] Generalized anxiety disorder (Primary Dx); [...] file Legal Sex Female 1:37 AM FREELANCE ART DIRECTOR Gender Identity Female 10/03/2023 10:05 AM FREELANCE ART DIRECTOR Sexual Orientation Straight 10/03/2023 10 :05 AM FREELANCE ART DIRECTOR documented as of this encounter Progress Notes * Ct Zhang, PhD - 12/28/2024 10:00 AM CST Psychology Note Date of Service: 12/28/24 Start time: 10:06am End time: 11:09am Interval History: Finesse Ramirez reported that she has had difficulty getting out of bed and reported increased instances of gabling and drinking, though noted reductions in other sheffield concerns including panic attacks and explosions or arguments with others. She reported difficulty with tracking the diary card including barriers to printing copies. She disclosed increased back pain and believes this is in part to not taking medication, attempts at PT, and overall reduced movement with more time spent in bed. She agreed ot consult with her psychiatrist regarding medication questions and concerns. Diagnosis (F41.1) Generalized anxiety disorder (primary encounter diagnosis) (G89.29) Other chronic pain Mental status exam APPEARANCE Level of consciousness: alert Attire: neat Cleanliness and grooming: clean and well-groomed Eye contact: good ATTITUDE: cooperative ACTIVITY: engaged, fidgeting PAIN BEHAVIOR: adjusting, slow to walk and stand, stretching leg out MOOD ???Okay?? Type: depressed, anxious, tearful AFFECT Appropriateness: appropriate Intensity: exaggerated Mobility: mobile Range: full Reactivity: reactive SPEECH: [...] anxiety, and emotional distress. Wespecifically focused on review of treatment hierarchies, establishing agenda for session, discussion of therapy interfering behavior, problem solving barriers to completion of the diary card, and collaborative treatment planning.. Progress is good. Plan: Finesse Ramirez was given the assignment to complete diary card and review provided materials. Her next appointment is scheduled for 01/07/25. Note not shared: Privacy This patient's allergies, medications, and problem list were noted but not managed by me as a non-medical provider. Ct Zhang, PhD Clinical Psychologist [facility] Division of Pain Management Department of Anesthesiology [facility] LANCE ART DIRECTOR documented in this encounter Plan of [...] pain documented in this encounter Care Teams Alliance Manager Relationship Specialty Start Date End Date Laureano Lantigua MD [address] [place] [address] PCP - General Internal Medicine 07/30/18 Tony [place] MD [address] [place] [address] Linux Admin Engineer Obstetrics and Gynecology 11/16/18 Anahy Rosales MD [address] [place] [address] Referring Physician Psychiatry 11/16/18 Nathalia Rodas, PT Physical Therapist Physical Therapy 02/14/23 documented as of this encounter
--- OUTSIDE RECORDS SUMMARY | 2024-12-29 11:26 | XMS_ITS | Referral Summary ---
Author Organization [facility] Address [address] [place] [address] Care Team Providers Care Wildlife Rehabilitator Name Role Phone Kelly Roberts RN Unavailable [phone] Iwona Lorenz MD Primary Care Provider [phone] Source Comments [facility],non-owned Affiliates and Associated Physician Practices is amultiple site organization consisting of ambulatory clinics and hospital sitesin [place], [place], [place] and [place]. This disclosure is being madepursuant to the Care Everywhere program and may not contain all information available regarding this patient. Last updated 18.[facility] Allergies Active Allergy Reactions Criticality Noted Date [...] Comments Blood Pressure 122/80 01/14/2022 9:35 AM PHYSICAL THERAPIST ASSISTANT Pulse 79 01/14/2022 9:35 AM PHYSICAL THERAPIST ASSISTANT Temperature 36.4 C (97.6 F) 01/14/2022 9:35 AM PHYSICAL THERAPIST ASSISTANT Respiratory Rate 20 08/08/2021 11:54 AM CDT Oxygen Saturation 98% 08/28/2021 1:24 PM CDT Inhaled Oxygen Concentration - - Weight 94.4 kg (208 lb 3.2 oz) 01/14/2022 9:35 A M PHYSICAL THERAPIST ASSISTANT Height 182.9 cm (6') 01/14/2022 9:35 AM PHYSICAL THERAPIST ASSISTANT Body Mass Index 28.24 01/14/2022 9:35 AM PHYSICAL THERAPIST ASSISTANT Functional Status Functional Status Response Date of [...] COMPREHENSIVE METABOLIC PANEL (03/08/2019 11:26 AM CDT) [facility] Glucose 94 65 - 99 mg/dL [facility] [...] 29 U/L [facility] Comment: Test Performed at: [facility] [address] [place] [address] TANIA PATEL DO,MPH Blood BLOOD SPECIMEN / Unknown 03/08/2019 11:26 AM CDT 03/08/2019 11:[address] [place] AGED OR DISABLED CARER-CHURN OPERATOR [facility] ORDERABLES [facility] [address] [place] [address] * (ABNORMAL) LIPID PROFILE (LIPID PANEL) (03/08/2019 [...] DE LA VEGA et al. UYEN. 2013;310(19): 8668-3747 (http://education.Schedule C Systems.MorphoSys/faq/KJG598) CHOL/HDLC RATIO 3.2 <5.0 (calc) [facility] Non HDL Cholesterol 133(H) <130 mg/dL (calc) [facility] Comment: For patients with diabetes plus 1 major ASCVD risk factor, treating to a non-HDL-C goal of <100 mg/dL (LDL-C of <70 mg/dL) is considered a therapeutic option. 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
--- OUTSIDE RECORDS SUMMARY | 2024-12-29 11:26 | XMS_ITS | Encounter Summary ---
Author Organization [facility] Address [address] [place] [address] Phone Care Team Providers Care Calender Operator Name Role Phone Laureano Lantigua MD Primary Care Provider Tony [place] MD Unavailable [phone] Anahy Rosales MD Unavailable [phone] Nathalia Rodas PT Unavailable Unavailable Encounter Details Date Type Department Care Team (Late st Contact Info) Description 10/11/2020 Orders Only [facility] [address] [place] [address] Scanning, Provider Social History Tobacco Use Types Packs/Day Years Used Date Smoking Tobacco: Never Smokeless Tobacco: Never Alcohol Use Standard Drinks/Week Comments Yes 0 (1 standard drink = 0.6 oz pur e alcohol) PHQ-2 Answer Date Recorded PHQ-2 Score 0 11/22/2019 Comments No Sex and Gender Information Value Date Recorded Sex Assigned at Not on file Legal Sex Female 1:37 AM CUTTER BARREL DRUM Gender Identity Female 10/03/2023 10:05 AM CUTTER BARREL DRUM Sexual Orientation Straight 10/03/2023 10 :05 AM CUTTER BARREL DRUM documented as of this encounter Plan of Treatment Not on file documented as of this encounter Procedures Procedure Name Priority Date/Time Associated Diagnosis Comments SCAN - LABS 10/11/2020 documented in this encounter Results * SCAN - LABS (10/11/2020) us Provider Scanning Final Result documented in this encounter Visit Diagnoses Not on filedocumented in this encounter Care Teams Calender Operator Relationship Specialty Start Date End Date Laureano Lantigua MD [address] [place] [address] PCP - General Internal Medicine 07/30/18 Tony [place] MD [address] [place] [address] Riding Silks Custodian Obstetrics and Gynecology 11/16/18 Anahy Rosales MD [address] [place] [address] Referring Physician Psychiatry 11/16/18 Nathalia Rodas, PT Physical Therapist Physical Therapy 02/14/23 documented as of this encounter
--- OUTSIDE RECORDS SUMMARY | 2024-12-29 11:26 | XMS_ITS | Patient Health Summary ---
Author Organization [facility] Address [address] [place] [address] Care Team Providers Care Solar Energy System Installer Name Role Phone Kelly Roberts RN Unavailable [phone] Iwona Lorenz MD Primary Care Provider [phone] Note from [facility],non-owned Affiliates and Associated Physician Practices is amultiple site organization consisting of ambulatory clinics and hospital sitesin [place], [place] and [place]. This disclosure is being madepursuant to the Care Everywhere program and may not contain all information available regarding this patient. Last updated 18.[facility] Allergies * Erythromycin(Rash) -Medium Criticality * Hydrocodone(Nausea [...] Comments Blood Pressure 122/80 01/14/2022 9:35 AM FELT FINISHER Pulse 79 01/14/2022 9:35 AM FELT FINISHER Temperature 36.4 C (97.6 F) 01/14/2022 9:35 AM FELT FINISHER Respiratory Rate 20 08/08/2021 11:54 AM CDT Oxygen Saturation 98% 08/28/2021 1:24 PM CDT Inhaled Oxygen Concentration - - Weight 94.4 kg (208 lb 3.2 oz) 01/14/2022 9:35 A M FELT FINISHER Height 182.9 cm (6') 01/14/2022 9:35 AM FELT FINISHER Body Mass Index 28.24 01/14/2022 9:35 AM FELT FINISHER Procedures * MT CHMSRG MOHS MG TQ H/N/H/F/G 1ST STAG 5 BLOC(Performed 08/29/2021) Performed for Basal cell carcinoma (BCC) of left side of neck * MT CHMSRG MOHS MG TQ H/N/H/F/G EA ADDL STAG(Performed 08/29/2021) Performed for Basal cell carcinoma (BCC) of left side of neck * MT REPR CMPL WND HEAD,FAC,HAND 2.6-7.5(Performed 08/29/2021) Performed [...] WITH NERVE CONDUCTION STUDY(Performed 02/25/2008) Results * MT REPR CMPL WND HEAD,FAC,HAND 2.6-7.5, MT CHMSRG MOHS MG TQ H/N/H/F/G EA ADDL STAG, MT CHMSRG MOHSMG TQ H/N/H/F/G 1ST STAG 5 BLOC (08/29/2021 1:45 PM CDT) Narrative Cary Olivo MD - 08/29/2021 1:45 PM CDT Cary Olivo MD 09/01/2021 12:02 PM Mohs Micrographic Surgery Operative Note Procedure: Mohs micrographic surgery Date of service: 08/29/2021 Location: left inferior lateral neck Preop diagnosis: Basal cell carcinoma Postop diagnosis: Same Mohs AUC score: 8 Number of stages: 2 Preop size: 1.1 x 0.9 cm Postop size: 1.8x1.8 cm Depth of final defect: adipose Previous dermpath accession #: [id number] Repair type: second intent Mohs accession [...] confirmed by the patient. All components of [employer] Protocol/PAUSE Rule completed. STAGE I: The patient [...] sections examined. No additional histologic findings appreciated. [facility] CLIA # [id number] Mohs Tea Tree Farmer: Cary Olivo MD REPAIR: Complex Primary Surgeon: [...] report. I entered the information in our [employer] DocFlowsheet with the information provided by Dr. Olivo on her handwritten, paper format, surgical worksheet, which was then used to initiate the create of this note. Dr. Olivo then reviewed and edited the note as needed to complete the note. Prema Mayfield Robson I have reviewed the note, edited it as necessary and performed the entire procedure. Cary Olivo MD Associate Programmer Cary Olivo MD PROCEDURE/MINOR SURG ICAL ORDERABLES * DERMATOPATHOLOGY (08/08/2021 12:00 AM CDT) Case Report Dermatopathology Report Case: [id number] Authorizing Provider: Jose Raul Martinez Jr., MD Collected: 08/08/2021 12:00 AM Ordering Location: [facility] DermPath Lab Received: 08/09/2021 09:59 AM Pathologist: Maria Eugenia Farrell MD Specimens: A) - Skin, right distal pretibial region B) - Skin, left inferior lateral neck 7:06 PM T DERMATOPATHOLOGY LABORATORY Final Diagnosis Specimen A. SKIN, right distal pretibial region: SEBORRHEIC KERATOSIS, MACULAR (L82.1) (see microscopic description) Specimen B. SKIN, left inferior lateral neck: BASAL CELL CARCINOMA, NODULAR TYPE (C44.41) 7:06 PM T DERMATOPATHOLOGY LABORATORY Clinical History A-B: Inflamed seborrheic keratosis vs squamous cell carcinoma. 7:06 PM CDT DERMATOPATHOLOGY LABORATORY Gross Description Specimen A: Received is one formalin filled container labeled with the patient's name and designated right distal pretibial region. The specimen consists of a shave biopsy measuring [id number]. Jar 0. Specimen B: Received is one formalin filled container labeled with the patient's name and designated left inferior lateral neck. The specimen consists of a shave biopsy measuring [id number]. Jar 0. 7:06 PM T DERMATOPATHOLOGY LABORATORY Microscopic Description Specimen A. SKIN, [...] cytoplasmic ratio and peripheral palisading. 7:06 PM T DERMATOPATHOLOGY LABORATORY Disclaimer An external and internal positive and negative controls are appropriate for the histochemical, immunohistochemical and immunofluorescence stain(s) in this case (if any), except where stated explicitly. The performance characteristics of the stain(s) cited in this report were developed and its performance characteristic determined by the Dermatopathology Laboratory at [facility], directed by Dr. Ambreen Beckham. These tests need not be, and therefore are not, approved by the [place] Food and Drug Administration. The tests are used for clinical purposes. Billing Codes Specimen Charges Stain Charges 81481 50318 1 1 7:06 PM CDT DERMATOPATHOLOGY LABORATORY Embedded Images 7:06 PM T DERMATOPATHOLOGY LABORATORY Pathology/Cytology TISSUE SPECIMEN FROM SKIN / Unknown 08/08/2021 08/09/2021 9:59 AM CDT Miscellaneous samples (specimen) TISSUE SPECIMEN FROM SKIN / Unknown 08/08/2021 08/09/2021 9:59 AM CDT Jose Raul Martinez Jr., MD LAB - PATHOLOGY /CYTOLOGY ORDERABLES DERMATOPATHOLOGY LABORATORY [facility] Department of Dermatology [address], [address] [phone] * CT ABDOMEN AND PELVIS WITH IV [...] MD on 03/10/2019 at 8:[address] [facility] SIGNAL TESTER-SCALLOP BINDER US ORDERA BLES * HEMOGLOBIN A1C (HgbA1C) (03/08/2019 11:26 AM CDT) Only the most recent of2 resultswithin the time period is included. Hemoglobin A1c 5.2 <5.7 % of total Hgb [facility] Comment: For the purpose of screening for the presence of diabetes: <5.7% Consistent with the absence of diabetes 5.7-6.4% Consistent with increased risk for diabetes (prediabetes) > or =6.5% Consistent with diabetes This assay result is consistent with a decreased risk of diabetes. Currently, no consensus exists regarding use of hemoglobin A1c for diagnosis of diabetes in children. According to [place] Diabetes Association (ADA) guidelines, hemoglobin A1c <7.0% represents optimal control in non- diabetic patients. Different metrics may apply to specific patient populations. Standards of Medical Care in Diabetes(ADA). REPORT COMMENT: FASTING:YES Test Performed at: [facility] [id number] [place] [address] TANIA PATEL DO,MPH Blood BLOOD SPECIMEN / Unknown 03/08/2019 11:26 AM CDT 03/08/2019 11:[address] [facility] - JOSHUA BUNNY ORDERABLES [facility] [address] [place] [address] * (ABNORMAL) VITAMIN D 25-HYDROXY (03/08/2019 11:26 AM CDT) Only the most recent of2 resultswithin the time period is included. Vitamin D, 25 Hydroxy 28(L) 30 - 100 ng/mL [facility] Comment: Vitamin D Status 25-OH Vitamin D: Deficiency: <20 ng/mL Insufficiency: 20 - 29 ng/mL Optimal: > or = 30 ng/mL For 25-OH Vitamin D testing on patients on D2-supplementation and patients for whom quantitation of D2 and D3 fractions is required, the QuestAssureD(TM) 25-OH VIT D, (D2,D3), LC/MS/MS is recommended: order code 97672 (patients >2yrs). For more information on this test, go to: http://education.Choose Energy/faq/MMU187 (This link is being provided for informational/educational purposes only.) Test Performed at: [place] [address] TANIA PATEL DO,MPH Blood BLOOD SPECIMEN / Unknown 03/08/2019 11:26 AM CDT 03/08/2019 11:[address] [facility] LAB - JOSHUA BUNNY ORDERABLES Performing Organization Address [facility] Co de Phone Number [facility] [address] [place] [address] * CBC W/O DIFFERENTIAL (03/08/2019 11:26 AM CDT) [facility] White Blood Cell Count 7.9 3.8 - [...] 12.5 fL [facility] Comment: Test Performed at: [facility] [address] [place] [address] TANIA PATEL DO,MPH Blood BLOOD SPECIMEN / Unknown 03/08/2019 11:26 AM CDT 03/08/2019 11:[address] [facility] LAB - HEM ATOLOGY ORDERABLES Performing Organization Address [facility] Co de Phone Number [facility] [address] [place] [address] * COMPREHENSIVE METABOLIC PANEL (03/08/2019 11:26 AM CDT) Only the most recent of2 resultswithin the time period is included. [facility] Glucose 94 65 - 99 mg/dL [facility] [...] 29 U/L [facility] Comment: Test Performed at: [facility] [address] [place] [address] TANIA PATEL DO,MPH Blood BLOOD SPECIMEN / Unknown 03/08/2019 11:26 AM CDT 03/08/2019 11:[address] [facility] SIGNAL TESTER-SCALLOP BINDER LAB - JOSHUA BUNNY ORDERABLES [facility] [address] [place] [address] * (ABNORMAL) LIPID PROFILE (LIPID PANEL) (03/08/2019 11:26 AM CDT) [facility] Cholesterol 193 <200 mg/dL [facility] HDL Cholesterol [...] of LDL-C. Hayden SS et al. UYEN. 2013;310(09): 8117-0272 (http://education.OneTwoTrip/faq/YMT518) CHOL/HDLC RATIO 3.2 <5.0 (calc) [facility] Non HDL Cholesterol 133(H) <130 mg/dL (calc) [facility] Comment: For patients with diabetes plus 1 major ASCVD risk factor, treating to a non-HDL-C goal of <100 mg/dL (LDL-C of <70 mg/dL) is considered a therapeutic option. Test Performed at: [facility] [address] [place] [address] TANIA PATEL DO,MPH Blood BLOOD SPECIMEN / Unknown 03/08/2019 11:26 AM CDT 03/08/2019 11:[address] [facility]ias SIGNAL TESTER-SCALLOP BINDER LAB - JOSHUA BUNNY ORDERABLES [facility] [address] [place] [address] * GROSS + MICRO EXAM (STL) (04/06/2018 8:33 AM CDT) Case Report Surgical Pathology Report Case: [id number] Authorizing Provider: Rashawn Herring MD Collected: 04/06/2018 08:33 AM Ordering Location: [facility] Operative Received: 04/06/2018 10:33 AM Pathologist: Ray Chin MD Specimen: Gallbladder 04/07/2018 3:34 PM CDT [facility] Final Diagnosis 1. Gallbladder, cholecystectomy: -- Cholelithiasis JW/ns 04/07/2018 3:34 PM CDT [facility] Gross Description The specimen is received fixed in formalin in one container, labeled with the patient's name, Finesse Pashea, and gallbladder and consists of an 8.9 [...] in A1. MR/samuel 04/07/2018 3:34 PM CDT [facility] Microscopic Description Microscopic examination supports pathologic diagnosis. JW/samuel 04/07/2018 3:34 PM T [facility] Disclaimer All histochemical and/or immunohistochemical results are interpreted with controls that demonstrate appropriate staining reactions before reporting results. Note on use of immunocytochemistry reagents: This test was developed and its performance characteristic determined by [facility], Department of Laboratory Medicine. It has not been cleared or approved by the U.S. Food and Drug Administration (FDA). The FDA has determined that such clearance or approval is not necessary. The test is used for clinical purpose. It should not be regarded as investigational or for research. This laboratory is certified to perform high complexity testing. 04/07/2018 3:34 PM CDT [facility] Embedded Images 04/07/2018 3:34 PM T [facility] Pathology/Cytolo gy ENTIRE GALLBLADDER / Unknown 04/06/2018 8:33 AM CDT 04/06/2018 10:33 AM CDT Rashawn Herring MD LAB - PATHOLOGY/CYTO LOGY ORDERABLES Performing Organization Address [facility] Co de Phone Number [facility] [address] [place] [address] * HCG URINE QUALITATIVE (04/06/2018 7:16 AM CDT) hCG Qualitative Urine Negative Negative 04/06/2018 7:45 AM CDT [facility] Urine URINE / Unknown Collection / Unknown 04/06/2018 7:16 AM CDT 04/06/2018 7:34 AM CDT Harini Phelan DO LAB - URINALYSIS ORD ERABLES Performing Organization Address [facility] Co de Phone Number [facility] [address] [place] [address] * LAB RESULTS ORDER (05/18/2015) Laureano Lantigua MD LAB - THERAPEUTIC DRUG MONITORING ORDERABLES * CARDIAC PROCEDURE ORDER (12/30/2014 8:34 PM FELT FINISHER) Narrative 12/30/2014 8:34 PM FELT FINISHER Ordered by an unspecified provider. Scanned Document CARDIAC SERVICES ORD ERABLES * CARDIAC EKG ORDER (12/30/2014 8:34 PM FELT FINISHER) Narrative 12/30/2014 8:34 PM FELT FINISHER Ordered by an unspecified provider. Scanned Document CARDIAC SERVICES ORD ERABLES * GLUCOSE - POINT OF CARE (12/29/2014 10:36 AM FELT FINISHER) Only the most recent of7 resultswithin the time period is included. Pathologist [facility] Glucose WB/POC 87 70 - 106 mg/dL 12/29/2014 12:59 PM FELT FINISHER [facility] Blood BLOOD SPECIMEN / Unknown 12/29/2014 10:36 AM FELT FINISHER 12/29/2014 12:59 PM FELT FINISHER Rashawn Herring MD LAB - POINT OF CARE ORDERABLES [facility] [address] [place] [address] * (ABNORMAL) CBC W AUTO DIFFERENTIAL (12/29/2014 4:09 AM FELT FINISHER) Only the most recent of3 resultswithin the time period is included. Pathologist [facility] WBC 9.1 4.4 - 10.7 x10^9/L 12/29/2014 5:32 AM FELT FINISHER [facility] RBC 3.65(L) 3.80 - 5.20 x10^12/L 12/29/2014 5:32 AM FELT FINISHER [facility] Hemoglobin 11.1(L) 12.0 - 15.6 gm/dL 12/29/2014 5:32 AM [facility] Hematocrit 33.3(L) 35.9 - 45.5 % 12/29/2014 5:32 AM [facility] MCV 91.2 80.7 - 98.3 fl 12/29/2014 5:32 AM [facility] MCH 30.4 26.7 - 34.0 pg 12/29/2014 5:32 AM [facility] MCHC 33.3 30.8 - 35.9 gm/dL 12/29/2014 5:32 AM [facility] Platelet Count 186 153 - 416 x10^9/L 12/29/2014 5:32 AM [facility] RDW-CV 13.4 12.1 - 14.9 % 12/29/2014 5:32 AM [facility] MPV 11.2 9.4 - 12.9 fl 12/29/2014 5:32 AM [facility] Neutrophils % 56.3 44.0 - 73.0 % 12/29/2014 5:32 AM [facility] Lymphocytes % 30.5 20.0 - 43.0 % 12/29/2014 5:32 AM [facility] Monocytes % 11.6 5.0 - 13.0 % 12/29/2014 5:32 AM [facility] Eosinophils % 1.0 0.0 - 6.0 % 12/29/2014 5:32 AM [facility] Basophils % 0.2 0.0 - 2.0 % 12/29/2014 5:32 AM [facility] Immature Granulocytes 0.4 0 - 1 % 12/29/2014 5:32 AM [facility] Neutrophil Absolute 5.11 2.01 - 7.14 x10^9/L 12/29/2014 5:32 AM [facility] Lymphocytes Absolute 2.77 1.07 - 3.94 x10^9/L 12/29/2014 5:32 AM [facility] Monocytes Absolute 1.05 0.26 - 1.07 x10^9/L 12/29/2014 5:32 AM [facility] Eosinophils Absolute 0.09 0 - 0.47 x10^9/L 12/29/2014 5:32 AM [facility] Basophils Absolute 0.02 0 - 0.08 x10^9/L 12/29/2014 5:32 AM [facility] Immature Granulocytes Absolute 0.04 0.00 - 0.06 x10^9/L 12/29/2014 5:32 AM [facility] Blood BLOOD SPECIMEN / Unknown 12/29/2014 4:09 AM FELT FINISHER 12/29/2014 5:22 AM FELT FINISHER Rashawn Herring MD LAB - HEMATOLOGY ORD ERABLES Performing Organization Address [facility] Co de Phone Number [facility] [address] [place] [address] * (ABNORMAL) BASIC METABOLIC PANEL (CALCIUM TOTAL) (12/29/2014 4:09 AM FELT FINISHER) Only the most recent of3 resultswithin the time period is included. [facility] Glucose 83 74 - 106 mg/dL 12/29/2014 5:48 AM [facility] Sodium 136 136 - 145 mmol/L 12/29/2014 5:48 AM [facility] Potassium 3.7 3.5 - 5.1 mmol/L 12/29/2014 5:48 AM [facility] Chloride 105 98 - 107 mmol/L 12/29/2014 5:48 AM [facility] CO2 27 22 - 31 mmol/L 12/29/2014 5:48 AM [facility] Calcium 8.0(L) 8.5 - 10.1 mg/dL 12/29/2014 5:48 AM [facility] Anion Gap 4(L) 5 - 15 mmol/L 12/29/2014 5:48 AM [facility] BUN 12 7 - 21 mg/dL 12/29/2014 5:48 AM [facility] Creatinine 0.89 0.50 - 1.30 mg/dL 12/29/2014 5:48 AM [facility] eGFR by MDRD >60 >60 mL/min/1.7 3m2 12/29/2014 5:48 AM [facility] eGFR by MDRD >60 >60 mL/min/1.7 3m2 12/29/2014 5:48 AM [facility] Blood BLOOD SPECIMEN / Unknown 12/29/2014 4:09 AM FELT FINISHER 12/29/2014 5:22 AM FELT FINISHER Rashawn Herring MD LAB - CHEMISTRY ORDE RABLES Performing Organization Address City/[facility]/ZIP Co de Phone Number [facility] [address] [place] [address] * FL FLUORO UPPER GI TRACT + KUB (12/28/2014 8:15 AM FELT FINISHER) Anatomical Region Laterality Modality Abdomen Radiographic Lindsay ging 12/28/2014 3:00 PM FELT FINISHER Impressions 12/28/2014 3:00 PM FELT FINISHER No evidence of leak or obstruction. Narrative 12/28/2014 3:00 PM FELT FINISHER Fluoroscopic upper GI with KUB Indication: Morbid [...] ORDERABL ES * TSH (12/28/2014 2:26 AM FELT FINISHER) Pathologist [facility] TSH 1.27 0.358 - 3.740 uIU/mL 12/28/2014 3:03 AM FELT FINISHER [facility] Blood BLOOD SPECIMEN / Unknown 12/28/2014 2:26 AM FELT FINISHER 12/28/2014 2:34 AM FELT FINISHER Cindy Jones PA-C LAB - CHEMISTRY PALMA GARRIDO [facility] [address] [place] [address] * HCG URINE QUALITATIVE - POINT OF CARE (IP) (12/27/2014 6:20 AM FELT FINISHER) Only the most recent of3 resultswithin the time period is included. Pathologist [facility] HCG Qual Urine Negative Negative [facility] POCT TESTING QC Verified Yes Yes [facility] POC T TESTING Urine specimen (specimen) URINE / Unknown 12/27/2014 6:20 AM FELT FINISHER Rashawn Herring MD LAB - POINT OF CARE ORDERABLES Performing Organization Address [facility] Co de Phone Number [facility] POCT TESTING [address] * VITAMIN B1 (12/14/2014 8:50 AM FELT FINISHER) Vitamin B1 Whole Blood 131 70 - 180 nmol/L 12/16/2014 6:27 AM FELT FINISHER [facility] [employer] ([facility]) Comment: INTERPRETIVE INFORMATION: Vitamin B1, Whole Blood This assay measures the concentration of thiamine diphosphate (TDP), the primary active form of vitamin B1. Approximately 90 percent of vitamin B1 present in whole blood is TDP. Thiamine and thiamine monophosphate, which comprise the remaining 10 percent, are not measured. Test developed and characteristics determined by [employer]. See Compliance Statement B: [email or web address]/ Blood specimen (specimen) BLOOD SPECIMEN / Unknown 12/14/2014 8:50 AM FELT FINISHER 12/14/2014 9:58 AM FELT FINISHER Rashawn Herring MD LAB - CHEMISTRY PALMA GARRIDO Performing Organization Address [facility] Co de Phone Number [facility] ([facility]) [address] * VITAMIN B12 (12/14/2014 8:50 AM FELT FINISHER) Vitamin B12 338 211 - 911 pg/mL 12/14/2014 2:19 PM FELT FINISHER [facility] Blood BLOOD SPECIMEN / Unknown 12/14/2014 8:50 AM FELT FINISHER 12/14/2014 9:58 AM FELT FINISHER Rashawn Herring MD LAB - CHEMISTRY PALMA GARRIDO Performing Organization Address City/[facility] Co de Phone Number [facility] [address] [place] [address] * EKG 12-LEAD (12/14/2014 8:32 AM FELT FINISHER) Ventricular Rate 79 BPM [facility] Atrial Rate 79 BPM [facility] P-R Interval 168 ms [facility] QRS Duration ms 92 ms [facility] Q-T Interval ms 396 ms [facility] QTC Calculation (Bezet) 454 ms [facility] Calculated P [place] -7 degrees [facility] Calculated R [place] 93 degrees [facility] Calculated T [place] 43 degrees [facility] Interpretation EKG Normal sinus rhythm Rightward axis Borderline ECG No previous ECGs available Confirmed by PHIL MCKENZIE SANDIE ([id number]) on 12/14/2014 3:36:58 PM [facility] M[facility] 12/14/2014 8:32 AM FELT FINISHER 12/14/2014 3:36 PM FELT FINISHER Rashawn Herring MD ECG ORDERABLES Performing Organization Address [facility] Co de Phone Number [facility] MUSE * XR LUMBAR SPINE 2 OR 3 VW (05/10/2011) Only the most recent of3 resultswithin the time period is included. Anatomical Region Laterality Modality Spine Other Sean Deleon MD DIAGNOSTIC IMAGING O RDERABLES * HGB HCT PANEL (01/18/2011 1:15 AM FELT FINISHER) Only the most recent of2 resultswithin the time period is included. Hemoglobin 13.1 12.0 - 16.0 gm/dl [facility] Hematocrit 39.5 36.0 - 48.0 % [facility] BLOOD SPECIMEN / Unknown 01/18/2011 1:15 AM FELT FINISHER 01/18/2011 1:29 AM FELT FINISHER Sean Deleon MD LAB - HEMATOLOGY ORD ERABLES [facility] [address] [place] [address] * URINALYSIS ROUTINE W/REFLEX TO CULTURE (01/10/2011 10:25 AM FELT FINISHER) Color UA YELLOW [facility] Character UA CLEAR [facility] Specific Armstrong UA 1.009 1.005 - 1.0300 [facility] pH UA 6.5 4.6 - 8.0 pH Units [facility] Leukocyte UA NEGATIVE Negative /ul [facility] Nitrite UA NEGATIVE Negative [facility] Protein UA NEGATIVE Negative mg/dl [facility] Glucose UA NEGATIVE Normal mg/dl [facility] Ketone UA NEGATIVE Negative mg/dl [facility] Urobilinogen UA 0.2 Normal Lelia Units [facility] Bilirubin UA NEGATIVE Negative mg/dl [facility] Blood UA NEGATIVE Negative /ul [facility] WBC UA 0-2 <5 /HPF [facility] RBC UA 0-2 <5 /HPF [facility] Epithelial Cell UA 0-2 <5 /HPF [facility] Casts UA 0-2 <2 /LPF [facility] Bacteria UA NEGATIVE [facility] Urine Culture No culture to be done per protocol. [facility] URINE SPECIMEN OBTAINED BY CLEAN CATCH PROCEDURE / Unknown 01/10/2011 10:25 AM FELT FINISHER 01/10/2011 11:27 AM FELT FINISHER Sean Deleon MD LAB - URINALYSIS ORD ERABLES Performing Organization Address [facility] Co de Phone Number [facility] [address] [place] [address] * TYPE + SCREEN PANEL (01/10/2011 10:25 AM FELT FINISHER) ABO Rh O Pos [facility] Antibody Screen Neg Negative [facility] BLOOD SPECIMEN / Unknown 01/10/2011 10:25 AM FELT FINISHER 01/10/2011 11:28 AM FELT FINISHER Sean Deleon MD LAB - BLOOD BANK ORD ERABLES Performing Organization Address [facility] Co de Phone Number [facility] [address] [place] [address] * EMG WITH NERVE CONDUCTION STUDY (11/05/2010) Sean Deleon MD NEUROLOGY ORDERABLES * IMAGING/RADIOLOGY/XRAY RESULTS ORDER (10/30/2010) Only the most recent of3 resultswithin the time period is included. Anatomical Region Laterality Modality Other Sean Deleon MD IMAGING * EMG WITH NERVE CONDUCTION STUDY (02/25/2008) Teddy Toussaint MD NEUROLOGY ORDERABLES Care Teams [employer] Installer Relationship Specialty [place] [address] [place] [address] PCP - General 01/08/24 Kelly Roberts, CHEY Wildlife Refuge Manager 12/28/14
--- OUTSIDE RECORDS SUMMARY | 2024-12-29 11:26 | XMS_ITS | Encounter Summary ---
Author Organization [facility] Healthcare Address [address] [place] [address] Care Team Providers Care Calender Roll Press Operator Name Role Phone Laureano Lantigua MD Primary Care Provider [phone] Tony Washington MD Unavailable [phone] Anahy Rosales MD Unavailable [phone] Nathalia Rodas PT Unavailable Unavailable Encounter Details Date Type Department Care Team (Late st Contact Info) Description 10/06/2024 Orders Only [facility] [place] [facility] [address] [place] [phone] Scanning, Provider Social History Tobacco Use Types [...] on file Legal Sex Female 1:37 AM BOILER WASHER Gender Identity Female 10/03/2023 10:05 AM BOILER WASHER Sexual Orientation Straight 10/03/2023 10 :05 AM BOILER WASHER documented as of this encounter Plan of [...] filedocumented in this encounter Care Teams Calender Roll Press Operator Relationship Specialty Start Date End Date Laureano Lantigua MD [address] [place] [address] PCP - General Internal Medicine 07/30/18 Tony Washington MD [address] [address] [place] [address] Meat Cooler Obstetrics and Gynecology 11/16/18 Anahy Rosales MD [address] [place] [address] Referring Physician Psychiatry 11/16/18 Nathalia Rodas, PT Physical Therapist Physical Therapy 02/14/23 documented as of this encounter
--- OUTSIDE RECORDS SUMMARY | 2024-12-29 11:26 | XMS_ITS | Referral Summary ---
Author Organization [facility] s Address [address] [place] [address] Care Team Providers Care Manufacturing Technology Analyst Name Role Phone Laureano Lantigua MD Primary Care Provider + [phone] Tony Washington MD Unavailable [phone] Anahy Rosales MD Unavailable [phone] Nathalia Rodas PT Unavailable Unavailable Encounters Date Type Department Care Team Description 12/28/2024 10:00 AM FREIGHT SERVICE INSPECTOR Office Visit [facility] Pain Management [facility] [address] Ct Zhang, PhD Generalized anxiety disorder (Primary Dx); Other chronic pain 12/20/2024 9:15 AM FREIGHT SERVICE INSPECTOR Therapy [facility] [place] [address] Nathalia Rodas, PT Presence of left artificial hip joint (Primary Dx); Lumbar radiculopathy 12/16/2024 3:45 PM FREIGHT SERVICE INSPECTOR Therapy [facility] [place] [address] Nathalia Rodas, PT Presence of left artificial hip joint (Primary Dx); Lumbar radiculopathy 12/15/2024 7:45 AM FREIGHT SERVICE INSPECTOR Therapy [facility] [place] [address] Nathalia Rodas, PT Presence of left artificial hip joint (Primary Dx) 12/08/2024 Plan of Care Documentation [facility] [place] [address] 12/08/2024 7:45 AM FREIGHT SERVICE INSPECTOR Therapy [facility] [place] [address] Nathalia Rodas, PT Presence of left artificial hip joint 12/08/2024 10:00 AM FREIGHT SERVICE INSPECTOR Telemedicine [facility] Pain Management [address] [place] [phone] Ct Zhang, Generalized anxiety disorder (Primary Dx); Other chronic pain 12/01/2024 10:00 AM FREIGHT SERVICE INSPECTOR Telemedicine [facility] Pain Management [address] [place] [phone] Ct Zhang, Generalized anxiety disorder (Primary Dx); Other chronic pain 11/29/2024 Orders Only [facility] Medical [facility] [place] [facility] 1 [facility] [address] [place] [phone] Scanning, Provider 11/18/2024 11:00 AM FREIGHT SERVICE INSPECTOR Telemedicine [facility] Pain Management [address] [place] [phone] Ct Zhang, PhD Generalized anxiety disorder (Primary Dx); Other chronic pain 11/01/2024 2:00 PM FREIGHT SERVICE INSPECTOR Office Visit [facility] Pain Management [address] [place] [phone] Ct Zhang, PhD Generalized anxiety disorder (Primary Dx); Other chronic pain 10/26/2024 8:04 PM FREIGHT SERVICE INSPECTOR - 10/26/2024 9:33 PM FREIGHT SERVICE INSPECTOR Emergency [facility] [address] [place] [address] Elevated blood pressure reading with diagnosis of hypertension (Primary Dx); ECG abnormality Discharge Disposition: Discharge to home or self care 10/26/2024 Telephone [facility] [address] [facility] [address] [place] [phone] Laureano Lantigua MD Abnormal ECG 10/26/2024 8:41 AM FREIGHT SERVICE INSPECTOR - 10/26/2024 8:56 AM FREIGHT SERVICE INSPECTOR Emergency [facility] 1 [place] [address] Discharge Disposition: Left without being seen 10/25/2024 Telephone [facility] 1 [facility] [address] [place] [phone] Tatyana Akbar RN 10/25/2024 2:45 PM FREIGHT SERVICE INSPECTOR Office Visit [facility] 1 [facility] [address] [place] [phone] Laureano Lantigua MD Pre-op exam (Primary Dx); Hypertension, essential 10/08/2024 12:00 PM FREIGHT SERVICE INSPECTOR Office Visit [facility] Pain Management [address] [place] [phone] Ct Zhang, PhD Other chronic pain (Primary Dx); Adjustment disorder with mixed anxiety and depressed mood; Alcohol use disorder 10/06/2024 Orders Only [facility] 1 [facility] [address] [place] [phone] Scanning, Provider 10/01/2024 2:00 PM FREIGHT SERVICE INSPECTOR Office Visit [facility] Pain Management [address] [place] [phone] Ct Zhang, PhD Other chronic pain (Primary Dx); Lumbar back pain; Adjustment disorder with mixed anxiety and depressed mood from Last 3 Months Allergies Active Allergy [...] by mouth daily 30 tablet 3 4 Active tiZANidine (ZANAFLEX) 4 mg tablet Take 1 tablet (4 mg total) by mouth every 8 (eight) hours as needed for muscle spasms 90 tablet 3 Active sucralfate (CARAFATE) suspension 1 gram/10 mL Take 5 mL (0.5 g total) by mouth 4 (four) times a day 1800 mL 4 Active lisinopril-hydroC HLOROthiazide (ZESTORETIC) 20-25 mg per tabletIndications :hypertension Take 1 tablet by mouth daily 90 tablet 4 4 Active Active Problems Problem Noted Date Diagnosed Date ECG abnormality 10/26/2024 Pre-op exam 10/25/2024 Assessment & Plan (10/25/2024 7:28 PM FREIGHT SERVICE INSPECTOR): Pt is medically optimized for hip surgery Forms were filled out today Will get the labs and EKG readings from [facility] Elevated blood pressure read ing with diagnosis of hypertension 10/25/2024 Assessment & Plan (10/25/2024 7:27 PM FREIGHT SERVICE INSPECTOR): Goal bp is 130/80 or under [...] major depressive d isorder, in full remission ([facility]) 10/27/2017 Attention deficit hyperactivity disorder (ADHD) 10/27/2017 Tachycardia 12/28/2014 Morbid obesity 08/18/2014 Asthma 06/28/2014 Overview (02/20/2017): Asthma Osteoarthritis of cervical spine 10/08/2011 Lumbago 10/08/2011 Lumbar back pain 01/27/2011 Resolved Problems Problem Noted Date Diagnosed Date Resolved Date Excessive or frequent menstruation 03/12/2023 04/07/2023 Screen for colon cancer 01/03/2021 03/0 06/2022 Overview (01/03/2021): Added automatically from request for surgery [id number] Routine physical examination 11/16/2018 11/22/2019 Immunizations Name [...] on file Legal Sex Female 1:37 AM FREIGHT SERVICE INSPECTOR Gender Identity Female 10/03/2023 10:05 AM FREIGHT SERVICE INSPECTOR Sexual Orientation Straight 10/03/2023 10 :05 AM FREIGHT SERVICE INSPECTOR Last Filed Vital Signs Vital Sign Reading Time Taken Comments Blood Pressure 134/85 10/26/2024 9:32 PM FREIGHT SERVICE INSPECTOR Pulse 80 10/26/2024 9:32 PM FREIGHT SERVICE INSPECTOR Temperature 36.6 C (97.8 F) 10/26/2024 7:32 PM FREIGHT SERVICE INSPECTOR Respiratory Rate 18 10/26/2024 9:32 PM FREIGHT SERVICE INSPECTOR Oxygen Saturation 98% 10/26/2024 9:32 PM FREIGHT SERVICE INSPECTOR Inhaled Oxygen Concentration - - Weight 94.3 kg (208 lb) 10/26/2024 8:44 AM FREIGHT SERVICE INSPECTOR Height 182.9 cm (6') 10/26/2024 8:44 AM FREIGHT SERVICE INSPECTOR Body Mass Index 28.21 10/26/2024 8:44 AM FREIGHT SERVICE INSPECTOR Plan of Treatment Not on file Goals [...] as needed Medical Devices Implanted Type Area Electrical Engineering Technologist Device Identifier Shelf Expiration Date Model / Serial / Lot Lspine Fusion Spine Lumbar Procedures Procedure Name Priority Date/Time Associated Diagnosis Comments SCAN - RADIOLOGY/IMAGING 11/29/2024 TROPONIN T HIGH-SENSITIVITY 4-HR Timed 10/26/2024 7:54 PM FREIGHT SERVICE INSPECTOR EGFR STAT 10/26/2024 3:34 PM FREIGHT SERVICE INSPECTOR DIFFERENTIAL AUTO STAT 10/26/2024 3:3 4 PM FREIGHT SERVICE INSPECTOR TROPONIN T HIGH-SENSITIVITY SERIES (BASELINE, 2HR, 4HR, 6HR) STAT 10/26/2024 3:34 PM FREIGHT SERVICE INSPECTOR CBC WITH AUTO DIFFERENTIAL STAT 10/26/2024 3:34 PM FREIGHT SERVICE INSPECTOR COMPREHENSIVE METABOLIC PANEL STAT 10/26/2024 3:34 PM FREIGHT SERVICE INSPECTOR ECG 12-LEAD STAT 10/26/2024 2:31 PM FREIGHT SERVICE INSPECTOR ECG 12-LEAD STAT 10/26/2024 8:50 AM FREIGHT SERVICE INSPECTOR SCAN - RADIOLOGY/IMAGING 10/06/2024 PAP, REFLEX HPV Routine 02/16/2024 3:25 PM CDT Well woman exam COLONOSCOPY 03/27/2021 11:21 AM CDT SCREENING MAMMOGRAM BILATERAL W RADHA Schedule Routine, Read Routine (OP Routine) 01/01/2021 8:09 AM FREIGHT SERVICE INSPECTOR Encounter for screening mammogram for malignant neoplasm of breast from Last 3 Months or Most Recently Relevant to Health Maintenance Results * SCAN - RADIOLOGY/IMAGING (11/29/2024) Anatomical Region Laterality Modality Other us Provider Scanning Final Result * Troponin T high-sensitivity 4-hour (10/26/2024 7:54 PM FREIGHT SERVICE INSPECTOR) Trop T hs <6 <=14 ng/L Comment: Interpretive Data For further hscTnT resources including the diagnostic algorithm and an aid in interpretation, copy and paste this link: https://nrl.testcatalog.org/show/hsTrop Current Interpretive Data last revised 2020. Trop T hs delta 0 ng/L [facility] ([place]) Trop T hs interp Insignificant [facility] ([place]) Blood 10/26/2024 7:54 PM FREIGHT SERVICE INSPECTOR 10/26/2024 8:00 PM FREIGHT SERVICE INSPECTOR Mac Dexter MD LAB BLOOD ORDERABLES Final R esult Performing Organization Address [facility] Co de Phone Number DARIUS [facility] ([place]) [address] [place] [address] [place] [address] * Troponin T high-sensitivity series (baseline, 2hr, 4hr, 6hr) (10/26/2024 3:34 PM FREIGHT SERVICE INSPECTOR) Pathologist [facility] Trop T hs <6 <=14 ng/L Comment: Interpretive Data For further hscTnT resources including the diagnostic algorithm and an aid in interpretation, copy and paste this link: https://nrl.testcatalog.org/show/hsTrop Current Interpretive Data last revised 2020. Blood 10/26/2024 3:34 PM FREIGHT SERVICE INSPECTOR 10/26/2024 3:37 PM FREIGHT SERVICE INSPECTOR Mac Dexter MD LAB BLOOD ORDERABLES Final R esult Performing Organization Address City/[facility]/ZIP Co de Phone Number DARIUS [place] ([place]) 1 [facility] [place] [address] * eGFR (10/26/2024 3:34 PM FREIGHT SERVICE INSPECTOR) Pathologist [facility] eGFR >90 >=60 mL/min/1. 73 m2 Comment: [...] last reviewed 2021. Blood 10/26/2024 3:34 PM FREIGHT SERVICE INSPECTOR 10/26/2024 3:37 PM FREIGHT SERVICE INSPECTOR Mac Dexter MD LAB BLOOD ORDERABLES Final R esult [facility] ([place]) 1 [facility] Department [place] [address] * Differential, auto (10/26/2024 3:34 PM FREIGHT SERVICE INSPECTOR) Neutrophil abs 4.7 1.5 - 6.5 [...] revised on 2018. Blood 10/26/2024 3:34 PM FREIGHT SERVICE INSPECTOR 10/26/2024 3:37 PM FREIGHT SERVICE INSPECTOR us Mac Dexter MD LAB BLOOD ORDERABLES Final R esult [facility] ([place]) 1 [facility] Department [place] [address] * CBC with auto differential (10/26/2024 3:34 PM FREIGHT SERVICE INSPECTOR) WBC 8.8 3.8 - 9.9 K/cumm Hgb 15.2 11.9 - 15.5 g/dL [facility] ([place]) Hct 44.7 35.6 - 45.5 % [facility] ([place]) Plt 270 150 - 400 K/cumm [facility] ([place]) MPV 9.8 9.1 - 12.3 fL [facility] ([place]) RBC 4.76 3.90 - 5.20 M/cumm [facility] ([place]) MCV 93.9 81.3 - 96.4 fL [facility] ([place]) MCH 31.9 27.1 - 33.3 pg [facility] MCHC 34.0 32.3 - 35.7 g/dL [facility] RDW CV 11.9 11.1 - 14.9 % [facility] ([place]) RDW SD 41.8 35.7 - 48.1 fL [facility] ([place]) NRBC abs 0.00 0.00 - 0.01 K/cumm [facility] ([place]) Blood 10/26/2024 3:34 PM FREIGHT SERVICE INSPECTOR 10/26/2024 3:37 PM FREIGHT SERVICE INSPECTOR us Mac Dexter MD LAB BLOOD ORDERABLES Final R esult [facility] 1 [facility] Department [place] [address] * Comprehensive metabolic panel (10/26/2024 3:34 PM FREIGHT SERVICE INSPECTOR) Sodium 137 135 - 145 mmol/L Potassium, pl 4.2 3.3 - 4.9 mmol/L [facility] ([place]) Chloride 101 97 - 110 mmol/L [facility] ([place]) CO2 25 22 - 32 mmol/L [facility] Anion gap 12 2 - 15 mmol/L [facility] ([place]) BUN 11 6 - 25 mg/dL [facility] ([place]) Creatinine 0.78 0.60 - 1.10 mg/dL [facility] ([place]) Glucose 104 70 - 199 mg/dL [facility] ([place]) Comment: Interpretive Data Fasting glucose [...] [facility] ([place]) Blood 10/26/2024 3:34 PM FREIGHT SERVICE INSPECTOR 10/26/2024 3:37 PM FREIGHT SERVICE INSPECTOR Mac Dexter MD LAB BLOOD ORDERABLES Final R esult Performing Organization Address [facility] Co de Phone Number [facility] ([place]) 1 [facility] Department [place] [address] * ECG 12 lead (10/26/2024 2:31 PM FREIGHT SERVICE INSPECTOR) 10/26/2024 2:31 PM FREIGHT SERVICE INSPECTOR Narrative [facility] [place] - 10/26/2024 5:21 PM FREIGHT SERVICE INSPECTOR Vent Rate: 93 bpm RR Interval: 645 msec MS Interval: 156 msec QRS Duration: 89 msec QT Interval: 350 msec QTC Interval: 400 msec P-R-T [place]: 65 - 110 - 48 degrees IMPRESSION: SINUS RHYTHM POSSIBLE RIGHT VENTRICULAR HYPERTROPHY [SOME/ALL OF: PROMINENT R IN V1, LATE TRANSITION, RAD, YARIEL, SSS] SEPTAL MYOCARDIAL INFARCTION , PROBABLY OLD [40+ ms Q WAVE IN V1/V2] ABNORMAL ECG NO CHANGE FROM PREVIOUS TRACING NOTED Electronically Signed By: Armani Douglas MD Mac Dexter MD ECG ORDERABLES Final Result Performing Organization Address [facility] Co de Phone Number [facility] * ECG 12 lead (10/26/2024 8:50 AM FREIGHT SERVICE INSPECTOR) 10/26/2024 8:50 AM FREIGHT SERVICE INSPECTOR Narrative [facility] [place] - 10/26/2024 12:00 PM FREIGHT SERVICE INSPECTOR Vent Rate: 88 bpm RR Interval: 678 msec MS Interval: 141 msec QRS Duration: 86 msec QT Interval: 320 msec QTC Interval: 366 msec P-R-T [place]: -5 - 92 - 48 degrees IMPRESSION: SINUS RHYTHM BORDERLINE RIGHT AXIS DEVIATION [QRS AXIS > 90] SEPTAL MYOCARDIAL INFARCTION , OF INDETERMINATE AGE [40+ ms Q WAVE IN V1/V2] ABNORMAL ECG Electronically Signed By: Armani Douglas MD Bia Cast MD ECG ORDERABLES Final Res ult [facility] [place] [facility] * SCAN - RADIOLOGY/IMAGING (10/06/2024) Anatomical Region Laterality Modality Other us Provider Scanning Final Result * Pap, reflex [...] has been evaluated with computer assisted technology. Brick Extruder Operator Joel Geronimo Comment: BKA, CT(ASCP) CT screening location: [place] [address] [place] [address] Comment Arsenio Hwang Comment: EXPLANATORY NOTE: The [...] MD LAB CYTOLOGY ORDERABLES Fi nal Result [facility] [address] [place] [address] * COLONOSCOPY (03/27/2021 11:21 AM CDT) Anatomical Region Laterality Modality Other Narrative Procedure Note Manuel Tanner MD - 03/27/2021 11:21 AM CDT [facility] Patient Name: Finesse Ramirez Procedure Date: 03/27/2021 11:21 AM Date of : 1970 Admit Type: Outpatient Age: 51 Gender: Female Attending MD: Manuel Tanner M.D. Room: [facility] ENDOSCOPY ROOM 1 Note Status: [...] under direct vision. The Pediatric Colonoscope [id number] was introducedthrough the anus and advanced to [...] 11:21 AM Procedure Code(s): --- Professional --- 03136, Colonoscopy, flexible; diagnostic, including collection of specimen(s) by brushing or washing, when performed (separateprocedure) Diagnosis Code(s): --- Professional --- Z12.11, Encounter for screening for malignant neoplasm of colon K64.8, Other hemorrhoids K57.30, Diverticulosis of large intestine without perforation orabscess without bleeding CPT copyright 2019 [employer]. All rights reserved. The codes documented in this report are preliminary and upon hospital educator reviewmay be revised to meet current compliance requirements. Recognized by the [employer] for promoting quality in endoscopy us Manuel Tanner MD ENDOSCOPY PROCEDURES Final Result * SCREENING MAMMOGRAM BILATERAL W RADHA (01/01/2021 8:09 AM FREIGHT SERVICE INSPECTOR) Anatomical Region Laterality Modality Breast Bilateral Mammography 01/01/2021 8:48 AM FREIGHT SERVICE INSPECTOR Impressions 01/01/2021 9:24 AM FREIGHT SERVICE INSPECTOR There is no mammographic evidence of malignancy. A 1 year screening mammogram is recommended. BI-RADS: 1 - Negative. The patient will be entered into a reminder system with a target due date of 1 year for her next mammogram. Electronically signed by: MD Waleska Turpin 01/01/2021 9:24 AM FREIGHT SERVICE INSPECTOR EXAMINATION: SCREENING MAMMOGRAM BILATERAL W RADHA [...] Most Recently Relevant to Health Maintenance Insurance [employer] [place] [address] [address] [place] [address] [employer] Advance Directives For more information, please contact: [phone] * Full Code (Latest Code Status on File) Date Activated Date Inactivated Comments 03/12/2023 10:30 AM 03/12/2023 3:15 PM * Full Code Date Activated Date Inactivated Comments 03/27/2021 11:43 AM 03/27/2021 5:47 PM Care Teams Manufacturing Technology Analyst Relationship Specialty Start Date End Date Laureano Lantigua MD [address] [place] [address] PCP - General Internal Medicine 07/30/18 Tony [place] MD [address] [place] [address] [address] [address] Angio Technologist Obstetrics and Gynecology 11/16/18 Anahy Rosales MD [address] [place] [address] [place] [address] Referring Physician Psychiatry 11/16/18 Nathalia Rodas, PT Physical Therapist Physical Therapy 02/14/23
--- OUTSIDE RECORDS SUMMARY | 2024-12-29 11:26 | XMS_ITS | Encounter Summary ---
Author Organization [facility] Address [address] [facility] [place] [address] Care Team Providers Care Safety Investigator Name Role Phone Kelly Roberts RN Unavailable [phone] Iwona Lorenz MD Primary Care Provider [phone] Encounter Details Date Type Department Care Team (Late st Contact Info) Description 08/09/2021 Lab Requisition [facility] Care DermPath Lab [address] [facility] [place] [phone] Jose Raul Martinez Jr., MD [address] [facility] [address] [place] [address] Social History Tobacco Use Types Packs/Day Years [...] AM CDT) Case Report Dermatopathology Report Case: [id number] Authorizing Provider: Jose Raul Martinez Jr., MD Collected: 08/08/2021 12:00 AM Ordering Location: [facility] DermPath Lab Received: 08/09/2021 09:59 AM Pathologist: Maria Eugenia Farrell MD Specimens: A) - Skin, right distal pretibial region B) - Skin, left inferior lateral neck 7:06 PM CDT DERMATOPATHOLOGY LABORATORY Final Diagnosis [...] specimen consists of a shave biopsy measuring [id number]. Jar 0. Specimen B: Received is one formalin filled container labeled with the patient's name and designated left inferior lateral neck. The specimen consists of a shave biopsy measuring [id number]. Jar 0. 09/24/202 1 7:06 PM CDT DERMATOPATHOLOGY LABORATORY Microscopic [...] characteristic determined by the Dermatopathology Laboratory at [facility], directed by Dr. Ambreen Beckham. These tests need not be, and therefore are not, approved by the [place] Food and Drug Administration. The tests are used for clinical purposes. Billing Codes Specimen Charges Stain Charges 44153 [id number] 1 1 1 7:06 PM CDT DERMATOPATHOLOGY LABORATORY Embedded Images 1 7:06 PM CDT DERMATOPATHOLOGY LABORATORY Pathology/Cytology TISSUE SPECIMEN FROM SKIN / Unknown 08/08/2021 08/09/2021 9:59 AM CDT Miscellaneous samples (specimen) TISSUE SPECIMEN FROM SKIN / Unknown 08/08/2021 08/09/2021 9:59 AM CDT Jose Raul Martinez Jr., MD LAB - PATHOLOGY /CYTOLOGY ORDERABLES DERMATOPATHOLOGY LABORATORY [facility] - Department of Dermatology [facility] Medicine [address] [place] [address], [address] Floor [address] [phone] documented in this encounter Visit Diagnoses Not on filedocumented in this encounter Care Teams Safety Investigator Relationship Specialty [place] [address] [place] [address] [place] [address] PCP - General 01/08/24 Kelly Roberts RN Gambling Broker 12/28/14 documented as of this encounter
--- OUTSIDE RECORDS SUMMARY | 2024-12-29 11:26 | XMS_ITS | Clinical Summary ---
Author Organization [facility] Address [address] [place] [address] Phone Care Team Providers Care Wastewater Plant Operator Name Role Phone Laureano Lantigua MD Primary Care Provider [phone] Social History Tobacco Use Types Packs/Day Years [...] Immunochemical Fecal Occult Blood 2021 Mammogram 2021 Pneumococcal Immunization (5 0+ years) (1 of 1 - PCV) 2021 Zoster Immunization (1 of 2) 2021 Influenza Immunization (#1) 2024 SARS-COV-2 Immunization ( - 2023- season) 2024 Respiratory Syncytial Virus (RSV) Immunization (Adult) (1 - 1-dose 75+ series) 2046 Meningococcal Immunization (ACWY) Aged Out No longer eligible based on patient's age to complete this topic Pneumococcal Immunization Combined Aged Out No longer eligible based on patient's age to complete this topic Rotavirus Immunization Aged Out No lo nger eligible based on patient's age to complete this topic Insurance [place] [id number] [facility] Care Teams Wastewater Plant Operator Relationship Specialty Start Date End Date Laureano Lantigua MD [address] [place] [address] PCP - General Internal Medicine 01/19/16
== END 2024-12-29 10:32 | disposition home or self-care (01) ==
PROVIDERS: PCP Internal Medicine Infectious Disease; Visit Provider Orthopaedic Surgery
DX: Z96.642 Presence of left artificial hip joint (principal); Z47.1 Aftercare following joint replacement surgery
CPT/HCPCS: 73502

== ENCOUNTER → 2025-07-07 17:32 | Outpatient (CLI) | payer BC, SELFPAY ==
--- OUTSIDE RECORDS SUMMARY | 2004-12-06 04:45 | XMS_ITS | Continuity of Care Document ---
Author Organization [facility] Address [address] [place] [address] [place] [address] Phone Care Team Providers Care Apartment Assistant Manager Name Role Phone Antonio Cadena MD Unavailable Unavailable Advance Directives Directive Yes / No Effective Date File Name No Information Encounters Encounter Description Practice Location Reason(s) For Visit Diagnoses Date Provider Providers Copied on Encounter [facility], [id number] [place] [address] [address], [place], [place], [id number], [place] tel:[phone] HARRY Professional No Information 0-200 5 Tammi Alvarez. [address] [facility] [address], [place], [place], [id number], [place]. tel:[phone] Family History Family Member Type Diagnosis Age At Onset No Information Payers Payer name Insurance type Covered green party ID Authoriza tion(s) [facility] Out Of State [id number] Social History Type Description Quantity Date Captured Comments Sex Female Smoking Status No Information Chief Complaint And Reason For Visit No Information Reason For Referral Reason For Referral No Information History Of Present Illness Encounter Date Complaint History Of Prese nt Illness No Information Functional Status Date Functional Assessmen t No Information Instructions Date Instruction Additional Infor mation No Information Assessments Type Assessment Date No Information Patient Care Teams Name Effective Dates (start - stop) Status Members No Information
--- OUTSIDE RECORDS SUMMARY | 2025-07-06 06:51 | XMS_ITS | Encounter Summary ---
Author Organization [facility] Healthcare Address [address] [place] [address] Care Team Providers Care Clinical Documentation Nurse Name Role Phone Laureano Lantigua MD Primary Care Provider [phone] Tony Washington MD Unavailable [phone] Anahy Rosales MD Unavailable [phone] Nathalia Rodas PT Unavailable Unavailable Reason for Referral * Diagnostic Imaging (Routine) - Closed Specialty Diagnoses / Procedures Referred By [facility] Referred To Contact Diagnoses ECG abnormality Procedures NM MPI SPECT (Rest and/or Stress) Multiple Studies Emma Chin MD [address] [place] [address] [address] [place] [address] Phone: tel: fax: [address] [phone] Referral ID Status Reason Start Date Expiration Date Visits Re quested Visits Authorized [id number] Closed 04/28/2025 05/28/2026 1 1 Reason for Visit * Diagnostic Imaging (Routine) - Closed Specialty Diagnoses / Procedures Referred By Contac t Referred To Contact Diagnoses ECG abnormality Procedures NM MPI SPECT (Rest and/or Stress) Multiple Studies Emma Chin MD [address] [facility] [address] [place] [address] Phone: tel: fax: [address] [address] Referral ID Status Reason Start Date Expiration Date Visits Re quested Visits Authorized [id number] Closed 04/28/2025 05/28/2026 1 1 Encounter Details Date Type Department Care Team (Latest Contact Info) Description 07/06/2025 6:51 AM CDT - 07/06/2025 11:59 PM CDT Hospital Encounter [facility] [address] [place] [address] ECG abnormality Discharge Disposition: Discharge to home or self care Social History Tobacco Use Types Packs/Day Years Used Date Smoking Tobacco: Never Smokeless Tobacco: Never Alcohol Use Standard Drinks/Week Comments Yes 0 (1 standard drink = 0.6 oz pur e alcohol) AUDIT-C Answer Date Recorded Q1: How often do you have a drink containing alc ohol? 2-3 times a week 02/16/2025 Q2: How many drinks containi ng alcohol do you have on a typical day when you are drinking? 3 or 4 02/16/2025 Q3: How often do you have si x or more drinks on one occasion? Never 02/16/2025 PHQ-2 Answer Date Recorded PHQ-2 Total Score [...] on file Legal Sex Female 1:37 AM ASSOCIATE FACULTY Gender Identity Female 10/03/2023 10:05 AM ASSOCIATE FACULTY Sexual Orientation Straight 10/03/2023 10 :05 AM ASSOCIATE FACULTY documented as of this encounter Medications at Time of Discharge albuterol HFA (PROVENTIL HFA,VENTOLIN HFA,PROAIR HFA) 90 mcg/actuation inhaler 2 puffs qid prn 1 each 11 01/04/2022 amoxicillin 500 mg tablet 500 MG ORALLY ONCE TAKE 4 TABLETS 1 HOUR PRIOR TO PROCEDURE. 02/08/2025 buPROPion SR (WELLBUTRIN SR) 100 mg 12 hr tablet Take 1 tablet (100 mg total) by mouth 2 (two) times a day 03/03/2024 busPIRone (BUSPAR) 15 mg tablet Concerta 36 mg CR tablet desipramine (NORPRAMIN) 25 mg tablet Take 1 tablet (25 mg total) by mouth daily 30 tablet 3 09/03/2024 5 ferrous sulfate 325 mg (65 mg of elemental iron) tabletIndications:I mehreen Deficiency Anemia Take 1 tablet (325 mg total) by mouth daily with breakfast hydroCHLOROthiazide (HYDRODIURIL) 25 mg tablet Take 1 tablet (25 mg total) by mouth daily 90 tablet 3 04/28/2025 6 lisinopriL (PRINIVIL,ZESTRIL) 40 mg tablet Take 1 tablet (40 mg total) by mouth daily 90 tablet 3 04/28/2025 6 magnesium phosphate, bulk, powderIndications:s upplement Take 1 tablet by mouth every morning methylphenidate HCl (RITALIN) 5 mg tabletIndications:A ttention-Deficit Hyperactivity Disorder Take 1 tablet (5 mg total) by mouth daily with lunch 08/28/2023 oxyCODONE-acetamino phen (PERCOCET) 5-325 mg per tabletIndications:P ain Take 1 tablet by mouth every 4 (four) hours as needed for pain 30 tablet 01/22/2024 sucralfate (CARAFATE) suspension 1 gram/10 mL TAKE 5 ML (0.5 G TOTAL) BY MOUTH 4 (FOUR) TIMES A DAY 600 mL 04/14/2025 5 tiZANidine (ZANAFLEX) 4 mg tablet Take 1 tablet (4 mg total) by mouth every 8 (eight) hours as needed for muscle spasms 90 tablet 3 09/03/2024 traZODone (DESYREL) 50 mg tabletIndications:s leep Take 1 tablet (50 mg total) by mouth nightly 02/03/2023 tretinoin (RETIN-A) 0.1 % cream APPLY PEA SIZE AMOUNT TO FACE AT BEDTIME 01/10/2025 documented as of this encounter Discharge Disposition [...] lifestyle strategies and compensatory methods as needed Reduce the likelihood of falling Lifestyle No Fely Man RN Note: Below are four things you can do to prevent falls: Begin an exercise program to improve your leg strength & balance Ask your doctor or pharmacist to review your medicines Get annual eye check-ups & update your eyeglasses Make your home safer by: Removing clutter & tripping hazards Putting railings on all stairs & adding grab bars in the bathroom Having good lighting, especially on stairs Contact your local community or [facility] for information on exercise, fall prevention programs, or options for improving home safety. documented as of this encounter Procedures Procedure Name Priority Date/Time Associated Diagnosis Comments STRESS TEST FOR DUAL READ Schedule Routine, Read Routine (OP Routine) 07/06/2025 8:18 AM CDT ECG abnormality NM MPI SPECT (REST AND/OR STRESS) MULTIPLE STUDIES Schedule Routine, Read Routine (OP Routine) 07/06/2025 8:18 AM CDT ECG abnormality documented in this encounter Results * NM MPI SPECT (Rest and/or Stress) Multiple Studies (07/06/2025 8:18 AM CDT) Anatomical Region Laterality Modality Body N/A Nuclear Medicine 07/06/2025 7:00 AM CDT Narrative 07/06/2025 1:10 PM CDT [address] [place] [address] MPI Report Patient Name: ASHOK SANDERSRina COREY : 1970 Study Date: 07/06/2025 7:00:45 AM Gender: F Tech: Ref Provider: EMMA CHIN Height(Cm): BSA: Weight(Kg): Order Provider: EMMA CHIN PROCEDURES: Exercise SPECT Report.: Myocardial Perfusion Imaging at rest and post exercise. INDICATIONS: R94.31 Abnormal electrocardiogram (ECG) (EKG). FINDINGS: Procedure Data: Sestamibi injected at rest was 9.9 millicuries Sestamibi injected at peak exercise was 31.9 millicuries Predicted Maximal HR 166 bpm Percent Max Predicted HR Achieved: 90.36 % Perfusion: Normal perfusion imaging. LV Function: Left ventricular ejection fraction is 65 %. CONCLUSIONS: 1. Myocardial Perfusion: Normal rest and stress images. 2. Left ventricle: Normal size and systolic function (visually confirmed EF >50%). Electronically Signed By: Kathleen Coleman MD 07/06/2025 11:51:30 AM CDT Procedure Note Kathleen Coleman MD - 07/06/[address] [address] MPI Report Patient Name: JOSHUA SANDERS R : 1970 Study Date: 07/06/2025 7:00:45 AM Gender: F Tech: Ref Provider: EMMA CHIN Height(Cm): BSA: Weight(Kg): Order Provider: EMMA CHIN PROCEDURES: Exercise SPECT Report.: Myocardial Perfusion Imaging at rest and post exercise. INDICATIONS: R94.31 Abnormal electrocardiogram (ECG) (EKG). FINDINGS: Procedure Data: Sestamibi injected at rest was 9.9 millicuries Sestamibi injected at peak exercise was 31.9 millicuries Predicted Maximal HR 166 bpm Percent Max Predicted HR Achieved: 90.36 % Perfusion: Normal perfusion imaging. LV Function: Left ventricular ejection fraction is 65 %. CONCLUSIONS: 1. Myocardial Perfusion: Normal rest and stress images. 2. Left ventricle: Normal size and systolic function (visually confirmedEF >50%). Electronically Signed By: Kathleen Coleman MD 07/06/2025 11:51:30 AM CDT Emma Chin MD IMG NM PROCEDURES Final Resul t documented in this encounter Visit Diagnoses Diagnosis ECG abnormality Nonspecific abnormal electrocardiogram (ECG) (EKG) ECG abnormality Nonspecific abnormal electrocardiogram (ECG) (EKG) documented in this encounter Administered Medications Inactive Administered Medications - up to 3 most recent administrations Medication Order MAR Action Action Date Dose Rate Site tc-99m tetrofosmin (MYOVIEW) injection 9.9 millicurie 9.9 millicurie, intravenous, Once in imaging, radiopharmaceutical, Starting on Fri07/06/25 at 0719, For 1 dose, Indications: Diagnostic RadiographyIndications:Diag nostic Radiography Given 07/06/2025 6:49 AM CDT 9.9 millicuries documented in this encounter Orders Medications Ordered That Raul ht Not Have Been Administered Count Last Ordered Date First Ordered Date tc-99m tetrofosmin (MYOVIEW) injection 9.9 millicurie 1 07/06/2025 documented in this encounter Care Teams Clinical Documentation Nurse Relationship Specialty Start Date End Date Laureano Lantigua MD [address] [place] [address] PCP - General Internal Medicine 07/30/18 Tony Washington MD [address] [facility] [address] [place] [address] Toll Gate Tender Obstetrics and Gynecology 11/16/18 Anahy Rosales MD [address] [place] [address] [place] [address] Referring Physician Psychiatry 11/16/18 Nathalia Rodas, PT Physical Therapist Physical Therapy 02/14/23 documented as of this encounter
--- OUTSIDE RECORDS SUMMARY | 2025-07-06 06:52 | XMS_ITS | Encounter Summary ---
Author Organization [facility] Healthcare Address [address] [place] [address] Care Team Providers Care Office Employee Name Role Phone Laureano Lantigua MD Primary Care Provider [phone] Tony Washington MD Unavailable [phone] Anahy Rosales MD Unavailable [phone] Nathalia Rodas PT Unavailable Unavailable Reason for Visit * Diagnostic Imaging (Routine) - Closed Specialty Diagnoses / Procedures Referred By Contac t Referred To Contact Diagnoses ECG abnormality Procedures NM MPI SPECT (Rest and/or Stress) Multiple Studies Emma Bazzi MD [address] [place] [address] Phone: tel: fax: [address] [address] Referral ID Status Reason Start Date Expiration Date Visits Re quested Visits Authorized [id number] Closed 04/28/2025 05/28/2026 1 1 Encounter Details Date Type Department Care Team (Latest Contact Info) Description 07/06/2025 6:52 AM CDT - 07/06/2025 11:59 PM CDT Hospital Encounter [facility] [address] [place] [address] Arrived Discharge Disposition: Discharge to home or self [...] on file Legal Sex Female 1:37 AM GOVERNMENT DOCUMENTS LIBRARIAN Gender Identity Female 10/03/2023 10:05 AM GOVERNMENT DOCUMENTS LIBRARIAN Sexual Orientation Straight 10/03/2023 10 :05 AM GOVERNMENT DOCUMENTS LIBRARIAN documented as of this encounter Medications at [...] by mouth daily 30 tablet 3 09/03/2024 ferrous sulfate 325 mg (65 mg of elemental iron) tabletIndications:I mehreen Deficiency Anemia Take 1 tablet (325 mg total) by mouth daily with breakfast hydroCHLOROthiazide (HYDRODIURIL) 25 mg tablet Take 1 tablet (25 mg total) by mouth daily 90 tablet 3 04/28/2025 06/12/202 6 lisinopriL (PRINIVIL,ZESTRIL) 40 mg tablet Take [...] on stairs Contact your local community or senior center for information on exercise, fall prevention programs, [...] abnormality documented in this encounter Results * Stress Test for Myocardial Perfusion (07/06/2025 8:18 AM CDT) Anatomical Region Laterality Modality Nuclear Medicine 07/06/2025 7:00 AM CDT Narrative 07/06/2025 9:49 AM CDT [address] [address] MPI ECG Report Patient Name: JOSHUA RAMIREZ R : 1970 Study Date: 07/06/2025 7:00:00 AM Gender: F Tech: marcie murillo Ref Provider: EMMA BAZZI Height(Cm): 183 BSA: 3.36 Weight(Kg): 222 Heart Rate: 141 Order Provider: EMMA BAZZI PROCEDURES: Exercise SPECT Report.: Myocardial Perfusion Imaging at rest and post exercise. INDICATIONS: R94.31 Abnormal electrocardiogram (ECG) (EKG). FINDINGS: Procedure Data: Exercise Time: 08:00 Resting HR 89 bpm Peak HR: 150 bpm Predicted Maximal HR 166 bpm Target HR: 141 bpm Percent Max Predicted HR Achieved: 90 % Baseline BP: 139/92 Peak BP: 149/66 METS achieved: 9.7 Rate-Pressure Product: 29280 BPM*mmHg Performed By: Supervising Physician: The Supervising Physician is emma bazzi. Reason for Termination: Fatigue. Dyspnea. THR achieved. Patient request. Resting ECG: Normal sinus rhythm at 88 beats per minute, right axis deviation, possible old anteroseptal HI. Post ECG: No diagnostic ST changes. Arrhythmia: No arrhythmias seen. Target HR Achieved: Target heart rate was achieved. Cardiac Symptoms With Stress: Symptoms with stress were fatigue, general appearance and dyspnea. BP Response: Blood pressure response is appropriate. Exam Interpreted: Read by . CONCLUSIONS: 1. Adequate stress test in regards to heart rate with the patient achieving 90% of predicted maximum heart rate.. 2. No exercise induced chest pain. 3. No definite ischemia on stress EKG. 4. Nuclear images are pending and they will be reported separately. Electronically Signed By: Dr Emma Bazzi 07/06/2025 9:20:47 AM CDT Procedure Note Emma Bazzi MD - 07/06/[address] [address] MPI ECG Report Patient Name: JOSHUA RAMIREZ R : 1970 Study Date: 07/06/2025 7:00:00 AM Gender: F Tech: marcie Blunt Provider: EMMA BAZZI Height(Cm): 183 BSA: 3.36 Weight(Kg): 222 Heart Rate: 141 Order Provider: EMMA BAZZI PROCEDURES: Exercise SPECT Report.: Myocardial Perfusion Imaging at rest and post exercise. INDICATIONS: R94.31 Abnormal electrocardiogram (ECG) (EKG). FINDINGS: Procedure Data: Exercise Time: 08:00 Resting HR 89 bpm Peak HR: 150 bpm Predicted Maximal HR 166 bpm Target HR: 141 bpm Percent Max Predicted HR Achieved: 90 % Baseline BP: 139/92 Peak BP: 149/66 METS achieved: 9.7 Rate-Pressure Product: 60767 BPM*mmHg Performed By: Supervising Physician: The Supervising Physician is emma bazzi. Reason for Termination: Fatigue. Dyspnea. THR achieved. Patient request. Resting ECG: Normal sinus rhythm at 88 beats per minute, right axis deviation, possibleold anteroseptal HI. Post ECG: No diagnostic ST changes. Arrhythmia: No arrhythmias seen. Target HR Achieved: Target heart rate was achieved. Cardiac Symptoms With Stress: Symptoms with stress were fatigue, general appearance and dyspnea. BP Response: Blood pressure response is appropriate. Exam Interpreted: Read by . CONCLUSIONS: 1. Adequate stress test in regards to heart rate with the patientachieving 90% of predicted maximum heart rate.. 2. No exercise induced chest pain. 3. No definite ischemia on stress EKG. 4. Nuclear images are pending and they will be reported separately. Electronically Signed By: Dr Emma Bazzi 07/06/2025 9:20:47 AM CDT Emma Bazzi MD CV STRESS PROCEDURES Final Re sult * NM MPI SPECT (Rest and/or Stress) Multiple Studies (07/06/2025 8:18 AM CDT) Anatomical Region Laterality Modality Body N/A Nuclear Medicine 07/06/2025 7:00 AM CDT Narrative 07/06/2025 1:10 PM CDT [address] [place] [address] MPI Report Patient Name: JOSHUA RAMIREZ R : 1970 Study Date: 07/06/2025 7:00:45 AM Gender: F Tech: Ref Provider: EMMA BAZZI Height(Cm): BSA: Weight(Kg): Order Provider: EMMA BAZZI PROCEDURES: Exercise SPECT Report.: Myocardial Perfusion Imaging [...] Procedure Note Kathleen Coleman MD - 07/06/2025 [place] [address] MPI Report Patient Name: JOSHUA RAMIREZ R : 1970 Study Date: 07/06/2025 7:00:45 AM Gender: F Tech: Ref Provider: EMMA BAZZI Height(Cm): BSA: Weight(Kg): Order Provider: EMMA BAZZI PROCEDURES: Exercise SPECT Report.: Myocardial Perfusion Imaging [...] function (visually confirmedEF >50%). Electronically Signed By: Kathlene Coleman MD 07/06/2025 11:51:30 AM CDT Emma Bazzi MD IMG NM PROCEDURES Final Resul t documented in this encounter Visit Diagnoses Not on filedocumented in this encounter Care Teams Office Employee Relationship Specialty Start Date End Date Laureano Lantigua MD [address] [facility] [place] [address] PCP - General Internal Medicine 07/30/18 Tony Washington MD 4 [facility] [address] [place] [address] Fire Pot Operator Obstetrics and Gynecology 11/16/18 Anahy Rosales MD 4 [facility] [place] [address] Referring Physician Psychiatry 11/16/18 Nathalia Rodas, PT Physical Therapist Physical Therapy 02/14/23 documented as of this encounter
--- OUTSIDE RECORDS SUMMARY | 2025-07-06 06:52 | XMS_ITS | Encounter Summary ---
Author Organization [facility] Healthcare Address [address] [place] [address] Care Team Providers Care Intelligence Officer Name Role Phone Laureano Lantigua MD Primary Care Provider [phone] Tony Washington MD Unavailable [phone] Anahy Rosales MD Unavailable [phone] Nathalia Rodas PT Unavailable Unavailable Reason for Visit * Diagnostic Imaging (Routine) - Closed Specialty Diagnoses / Procedures Referred By Contac t Referred To Contact Diagnoses ECG abnormality Procedures NM MPI SPECT (Rest and/or Stress) Multiple Studies Ramiro Chin MD [address] [place] [address] Phone: tel: fax: [address] [address] Referral ID Status Reason Start Date Expiration Date Visits Re quested Visits Authorized [id number] Closed 04/28/2025 05/28/2026 1 1 Encounter Details Date Type Department Care Team (Latest Contact Info) Description 07/06/2025 6:52 AM CDT - 07/06/2025 11:59 PM CDT Hospital Encounter [facility] Imaging Center [address] [place] [address] Arrived Discharge Disposition: Discharge to home or [...] on file Legal Sex Female 1:37 AM WOMEN NURSE Gender Identity Female 10/03/2023 10:05 AM WOMEN NURSE Sexual Orientation Straight 10/03/2023 10 :05 AM WOMEN NURSE documented as of this encounter Medications at [...] CDT ECG abnormality documented in this encounter Visit Diagnoses Not on filedocumented in this encounter Administered Medications Inactive Administered Medications - up to 3 most recent administrations Medication Order MAR Action Action Date Dose Rate Site tc-99m tetrofosmin (MYOVIEW) injection 31.9 millicurie 31.9 millicurie, intravenous, Once in imaging, radiopharmaceutical, Starting on Fri07/06/25 at 0811, For 1 dose, Indications: Diagnostic RadiographyIndications:Lina gnostic Radiography Given 07/06/2025 7:41 AM CDT 31.9 millicuries documented in this encounter Orders Medications Ordered That Raul ht Not Have Been Administered Count Last Ordered Date First Ordered Date tc-99m tetrofosmin (MYOVIEW) injection 31.9 millicurie 1 07/06/2025 documented in this encounter Care Teams Intelligence Officer Relationship Specialty Start Date End Date Laureano Lantigua MD [address] [place] [address] PCP - General Internal Medicine 07/30/18 Tony Washington MD 4 [facility] [address] [place] [address] Press Cleaner Obstetrics and Gynecology 11/16/18 Anahy Rosales MD 4 [facility] [address] [place] [address] Referring Physician Psychiatry 11/16/18 Nathalia Rodas, PT Physical Therapist Physical Therapy 02/14/23 documented as of this encounter
--- OUTSIDE RECORDS SUMMARY | 2025-07-06 06:52 | XMS_ITS | Encounter Summary ---
Author Organization [facility] Healthcare Address [address] [place] [address] Care Team Providers Care Class C Truck Driver Name Role Phone Laureano Lantigua MD Primary Care Provider [phone] Tony Washington MD Unavailable [phone] Anahy Rosales MD Unavailable [phone] Nathalia Rodas PT Unavailable Unavailable Reason for Visit * Diagnostic Imaging (Routine) - Closed Specialty Diagnoses / Procedures Referred By Contac t Referred To Contact Diagnoses ECG abnormality Procedures NM MPI SPECT (Rest and/or Stress) Multiple Studies Emma Bazzi MD [address] [place] [address] Phone: tel: fax: [address] [address] Referral ID Status Reason Start Date Expiration Date Visits Re quested Visits Authorized [id number] Closed 04/28/2025 05/28/2026 1 1 Encounter Details Date Type Department Care Team (Latest Contact Info) Description 07/06/2025 6:52 AM CDT - 07/06/2025 11:59 PM CDT Hospital Encounter [facility] Cardiology [address] [place] [address] ECG abnormality Discharge Disposition: Discharge to home [...] on file Legal Sex Female 1:37 AM EMERGENCY ROOM PHYSICIAN ASSISTANT Gender Identity Female 10/03/2023 10:05 AM EMERGENCY ROOM PHYSICIAN ASSISTANT Sexual Orientation Straight 10/03/2023 10 :05 AM EMERGENCY ROOM PHYSICIAN ASSISTANT documented as of this encounter Medications at [...] stairs Contact your local community or [facility] [place] for information on exercise, fall prevention programs, or options for improving home safety. documented as of this encounter Procedures Procedure Name Priority Date/Time Associated Diagnosis Comments NM MPI SPECT (REST AND/OR STRESS) MULTIPLE STUDIES Schedule Routine, Read Routine (OP Routine) 07/06/2025 8:18 AM CDT ECG abnormality STRESS TEST FOR DUAL READ Schedule Routine, Read Routine (OP Routine) 07/06/2025 8:18 AM CDT ECG abnormality documented in this encounter Results * Stress Test for Myocardial Perfusion (07/06/2025 8:18 AM CDT) Anatomical Region Laterality Modality Nuclear Medicine 07/06/2025 7:00 AM CDT Narrative 07/06/2025 9:49 AM CDT [address] [address] MPI ECG Report Patient Name: JOSHUA SANDERS R : 1970 Study Date: 07/06/2025 7:00:00 [...] BP: 149/66 METS achieved: 9.7 Rate-Pressure Product: 89994 BPM*mmHg Performed By: Supervising Physician: The Supervising Physician is emma bazzi. Reason for Termination: Fatigue. Dyspnea. THR achieved. Patient request. Resting ECG: Normal sinus rhythm at 88 beats per minute, right axis deviation, possible old anteroseptal CA. Post ECG: No diagnostic ST changes. Arrhythmia: [...] Procedure Note Emma Bazzi MD - 07/06/[address] [address] MPI ECG Report Patient Name: JOSHUA SANDERS R : 1970 Study Date: 07/06/2025 7:00:00 [...] BP: 149/66 METS achieved: 9.7 Rate-Pressure Product: 91085 BPM*mmHg Performed By: Supervising Physician: The Supervising Physician is emma bazzi. Reason for Termination: Fatigue. Dyspnea. THR achieved. Patient request. Resting ECG: Normal sinus rhythm at 88 beats per minute, right axis deviation, possibleold anteroseptal CA. Post ECG: No diagnostic ST changes. Arrhythmia: [...] MD CV STRESS PROCEDURES Final Re sult documented in this encounter Visit Diagnoses Diagnosis ECG abnormality Nonspecific abnormal electrocardiogram (ECG) (EKG) ECG abnormality Nonspecific abnormal electrocardiogram (ECG) (EKG) documented in this encounter Care Teams Class C Truck Driver Relationship Specialty Start Date End Date Laureano Lantigua MD [address] [place] [address] PCP - General Internal Medicine 07/30/18 Tony Washington MD [address] [facility] [address] [place] [address] Financial Systems Manager Obstetrics and Gynecology 11/16/18 Anahy Rosales MD [address] [facility] [address] [place] [address] Referring Physician Psychiatry 11/16/18 Nathalia Rodas, PT Physical Therapist Physical Therapy 02/14/23 documented as of this encounter
--- NOTE | ~2025-07-07 | XR_ITS ---
XR hip LT 2V w AP pelvis 07/07/2025 17:57 Indication: Aftercare after joint replacement Procedure: AP pelvis and 2 views left hip Comparison: Comparison to multiple prior studies sequentially, with oldest reviewed study dated 11/08/2024. Findings: There is a left total hip arthroplasty which is well seated. No evidence for loosening. There are spinal fusion changes at L5-S1. Pelvic rings intact. No acute bone or joint abnormality. Impression: 1: No acute bone or joint abnormality. Reviewed, dictated and finalized at location O. Impression: 1: No acute bone or joint abnormality.
--- OUTSIDE RECORDS SUMMARY | 2025-07-07 17:36 | XMS_ITS | Encounter Summary ---
Author Organization [facility] Address [address] [place] [address] Phone Care Team Providers Care Weight Analyst Name Role Phone Laureano Lantigua MD Primary Care Provider + [phone] Tony Washington MD Unavailable [phone] Anahy Rosales MD Unavailable [phone] Nathalia Rodas PT Unavailable Unavailable Encounter Details Date Type Department Care Team (Late st Contact Info) Description 12/31/2022 Orders Only [facility] [address] [place] [address] Scanning, Provider Social History Tobacco [...] on file Legal Sex Female 1:37 AM REACTOR FUELING SUPERVISOR Gender Identity Female 10/03/2023 10:05 AM REACTOR FUELING SUPERVISOR Sexual Orientation Straight 10/03/2023 10 :05 AM REACTOR FUELING SUPERVISOR documented as of this encounter Plan of Treatment Not on file documented as of this encounter Procedures Procedure Name Priority Date/Time Associated Diagnosis Comments SCAN - RADIOLOGY/IMAGING 12/31/2022 documented in this encounter Results * SCAN - RADIOLOGY/IMAGING (12/31/2022) Anatomical Region Laterality Modality Other us Provider Scanning Final Result documented in this encounter Visit Diagnoses Not on filedocumented in this encounter Care Teams Weight Analyst Relationship Specialty Start Date End Date Laureano Lantigua MD [address] [place] [address] PCP - General Internal Medicine 07/30/18 Tony Washington MD [address] [facility] [place] [address] Warehouse Shipping Associate Obstetrics and Gynecology 11/16/18 Anahy Rosales MD [address] [facility] [facility] [place] [address] Referring Physician Psychiatry 11/16/18 Nathalia Rodas, PT Physical Therapist Physical Therapy 02/14/23 documented as of this encounter
--- OUTSIDE RECORDS SUMMARY | 2025-07-07 17:36 | XMS_ITS | Encounter Summary ---
Author Organization [facility] Address [address] [place] [address] Phone Care Team Providers Care Marketing Research Intern Name Role Phone Laureano Lantigua MD Primary Care Provider + [phone] Tony Washington MD Unavailable [phone] Anahy Rosales MD Unavailable [phone] Nathalia Rodas PT Unavailable Unavailable Encounter Details Date Type Department Care Team (Late st Contact Info) Description 10/11/2020 Orders Only [facility] [address] [place] [address] Scanning, Provider Social History Tobacco Use Types Packs/Day Years Used Date Smoking Tobacco: Never Smokeless Tobacco: Never Alcohol Use Standard Drinks/Week Comments Yes 0 (1 standard drink = 0.6 oz pur e alcohol) PHQ-2 Answer Date Recorded PHQ-2 Score 0 11/22/2019 Comments No Sex and Gender Information Value Date Recorded Sex Assigned at Not on file Legal Sex Female 1:37 AM [facility] Gender Identity Female 10/03/2023 10:05 AM [facility] Sexual Orientation Straight 10/03/2023 10 :05 AM [facility] documented as of this encounter Plan of Treatment Not on file documented as of this encounter Procedures Procedure Name Priority Date/Time Associated Diagnosis Comments SCAN - LABS 10/11/2020 documented in this encounter Results * SCAN - LABS (10/11/2020) us Provider Scanning Final Result documented in this encounter Visit Diagnoses Not on filedocumented in this encounter Care Teams Marketing Research Intern Relationship Specialty Start Date End Date Laureano Lantigua MD [address] [place] [address] PCP - General Internal Medicine 07/30/18 Tony Washington MD [address] [place] [address] Control Director Obstetrics and Gynecology 11/16/18 Anahy Rosales MD [address] [place] [address] Referring Physician Psychiatry 11/16/18 Nathalia Rodas, PT Physical Therapist Physical Therapy 02/14/23 documented as of this encounter
--- OUTSIDE RECORDS SUMMARY | 2025-07-07 17:36 | XMS_ITS | Clinical Summary ---
Author Organization [facility] Address [address] [address] Care Team Providers Care Industrial Gas Fitter Helper Name Role Phone Kelly Roberts RN Unavailable [phone] Iwona Lorenz MD Primary Care Provider [phone] Source Comments [facility],non-owned Affiliates and Associated Physician Practices is amultiple site organization consisting of ambulatory clinics and hospital sitesin [place], [place], [place] and [place]. This disclosure is being madepursuant to the Care Everywhere program and may not contain all information available regarding this patient. Last updated 18.[facility] Allergies Active Allergy Reactions Criticality Noted Date Comments Erythromycin Rash Medium 12/28/2010 Hydrocodone Nausea and/or Vomiting 12/27/2014 Morphine Nausea and/or Vomiting High 12/28/2010 Can take derivatives Gabapentin Other 01/29/2011 Restless Medications * Be aware that medications may not be up to date on this document. Alwaysverify current medications with the patient. buPROPion SR 12hr (WELLBUTRIN-SR ) 150 MG tablet Take 150 mg by mouth once daily. Active carisoprodol (SOMA) 350 MG tablet Take 1 Tab by mouth 3 times daily as needed. 80 Tab 0 5 Active vortioxetine (TRINTELLIX) 10 MG tablet Take 10 mg by mouth once daily Active albuterol HFA (PROVENTIL;CÉSAR TOLIN;PROAIR) 108 (90 BASE) MCG/ACT inhaler 4 times daily as needed 8 Active oxyCODONE (ROXICODONE) 5 MG/5ML oral solution Take 10 mL by mouth every 4 hours as needed for Pain 240 mL 8 Active omeprazole (PRILOSEC) 20 MG capsule TAKE 1 CAPSULE BY MOUTH 2 TIMES DAILY,BEFORE BREAKFAST AND SUPPER 30 capsule 5 8 Active buPROPion XL 24hr (WELLBUTRIN-XL ) 150 MG tablet 9 Active sucralfate (CARAFATE) 1 GM tablet Take 1 tablet by mouth 4 times daily 360 tablet 9 Active buPROPion SR 12hr (WELLBUTRIN-SR ) 100 MG tablet Take 100 mg by mouth 2 times daily 0 9 Active methylphenidat e CR (CONCERTA) 18 MG tablet Take 18 mg by mouth once daily 0 9 Active sucralfate (CARAFATE) 1 GM/10ML suspensionIndi cations:Heartb urn,Bariatric surgery status Take 10 mL by mouth once daily 300 mL 5 9 Active busPIRone (BUSPAR) 5 MG tablet 0 Active sucralfate (CARAFATE) 1 GM/10ML suspension Take 10 mL by mouth 4 times daily 420 mL 11 1 Active omeprazole (PRILOSEC) 20 MG capsule Take 1 (one) capsule by mouth once daily 30 capsule 11 1 Active Liraglutide -Weight Management (SAXENDA) 18 MG/3ML Inject 3 mg subcutaneously once daily 15 mL 2 1 Active Insulin Pen Needle (BD PEN NEEDLE ESTEFANIA U/F) 32G X 4 MM MISC Inject 1 syringe subcutaneously once daily 100 Each 1 1 Active Active Problems Problem Noted Date Diagnosed [...] = 0.6 oz pur e alcohol) social Comments No Sex and Gender Information Value Date Recorded Sex Assigned at Not on file Legal Sex Female 9:52 AM ASSISTANT PROFESSOR OF DIETETICS Gender Identity Not on file Sexual Orientation Not on file 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24 01/14/2022 9:35 AM ASSISTANT PROFESSOR OF DIETETICS Plan of Treatment Health Maintenance Due Date Last Done Comments COLOGUARD (AGES 45-75) - COLON CA SCREENING 1971 CT COLONOGRAPHY - COLON CA SCREENING 1971 FLEX SIG - COLON CA SCREENING 1971 HIV SCREENING 1986 HEPATITIS C SCREENING 02/17/1989 DTAP/TDAP/TD VACCINES (1 - Tdap) 1990 HEPATITIS B VACCINE (1 of 3 - 19+ 3-dose series) 1990 PNEUMOCOCCAL VACCINE 50+ (1 of 2 - PCV) 1990 PAP SMEAR 02/23/1992 FIT - COLON CA SCREENING 11/22/2020 11/22/2019 MAMMOGRAM 02/08/2021 02/08/2019 ZOSTER VACCINE (1 of 2) 2021 SCREENING FOR DIABETES 03/08/2022 9, 03/08/2019, 12/29/2014, Additional history exists LIPID TESTING 03/08/2024 03/08/2019 COVID-19 VACCINE ( season) 2024 DEPRESSION SCREENING 11/17/2024 INFLUENZA VACCINE (#1) 2025 08/11/2021, 2015 COLON MONITORING 03/27/2031 03/27/2021 COLONOSCOPY - COLON CA SCREENING 03/27/2031 03/27/2021 Colorectal Cancer Screening 03/27/2031 HIB VACCINE Aged Out No longer eligi ble based on patient's age to complete this topic HPV VACCINE Aged Out No longer eligi ble based on patient's age to complete this topic MENINGOCOCCAL (Group B) VACCINE SHARED DECISION-MAKING Aged Out No longer eligible based on patient's age to complete this topic MENINGOCOCCAL GROUPS A/C/Y/W VACCINE Aged Out No longer eligible based [...] COMPREHENSIVE METABOLIC PANEL (03/08/2019 11:26 AM CDT) [facility] Glucose 94 65 - 99 mg/dL [facility] [...] 29 U/L [facility] Comment: Test Performed at: [facility] [id number] [facility] [place] [address] TANIA PATEL DO,MPH Blood BLOOD SPECIMEN / Unknown 03/08/2019 11:26 AM CDT 03/08/2019 11:[address] [place] DIGITAL ACCOUNT COORDINATOR-COIL WINDER HAND LAB - CHEMISTRY O RDERABLES Final Result Performing Organization Address City/State/[facility] Co de Phone Number [facility] [address] [place] [address] * (ABNORMAL) LIPID PROFILE (LIPID PANEL) (03/08/2019 [...] LDL-C. Hayden SS et al. UYEN. 2013;310(19): 8792-1063 (http://education.[employer].Alsbridge/faq/WYU497) CHOL/HDLC RATIO 3.2 <5.0 (calc) [facility] Non HDL Cholesterol 133(H) <130 mg/dL (calc) [facility] Comment: For patients with diabetes plus 1 major ASCVD risk factor, treating to a non-HDL-C goal of <100 mg/dL (LDL-C of <70 mg/dL) is considered a therapeutic option. Test Performed at: [employer] [facility] [address] [address] [facility] [place] [address] TANIA PATEL DO,MPH Blood BLOOD SPECIMEN / Unknown 03/08/2019 11:26 AM CDT 03/08/2019 11:[address] Trini Tobias DIGITAL ACCOUNT COORDINATOR-COIL WINDER HAND LAB - CHEMISTRY O RDERABLES Final Result [facility] [address] [place] [address] from Last 3 Months or Most Recently Relevant to Health Maintenance Insurance [employer] Advance Directives Documents on File Type Date Recorded Patient Dtp Operator Expl anation Adv Directive/Living Will/POA 01/19/2011 10:53 AM * Full Code (Latest Code Status on File) Date Activated Date Inactivated Comments 12/27/2014 5:54 PM 12/29/2014 1:07 PM * Full Code Date Activated Date Inactivated Comments 01/17/2011 8:46 PM 01/19/2011 4:15 AM Care Teams Industrial Gas Fitter Helper Relationship Specialty [place] [address] [address] PCP - General 01/08/24 Kelly Roberts, CHEY Hydraulic Pile Hammer Operator 12/28/14
--- OUTSIDE RECORDS SUMMARY | 2025-07-07 17:37 | XMS_ITS | Encounter Summary ---
Author Organization [facility] Address [address] [place] [address] Care Team Providers Care Paediatric Thoracic Physician Name Role Phone Laureano Lantigua MD Primary Care Provider [phone] Tony Washington MD Unavailable [phone] Anahy Rosales MD Unavailable Nathalia Rodas PT Unavailable Unavailable Encounter Details Date Type Department Care Team (Late st Contact Info) Description 10/06/2024 Orders Only [facility] [address] [place] [address] Scanning, Provider Social History Tobacco Use Types [...] on file Legal Sex Female 1:37 AM ALUMINUM MOLDING MACHINE OPERATOR Gender Identity Female 10/03/2023 10:05 AM ALUMINUM MOLDING MACHINE OPERATOR Sexual Orientation Straight 10/03/2023 10 :05 AM ALUMINUM MOLDING MACHINE OPERATOR documented as of this encounter [...] on filedocumented in this encounter Care Teams Paediatric Thoracic Physician Relationship Specialty Start Date End Date Laureano Lantigua MD [address] [place] [address] PCP - General Internal Medicine 07/30/18 Tony Washington MD [address] [address] Pump Rebuilder Obstetrics and Gynecology 11/16/18 Anahy Rosales MD [address] [place] [address] Referring Physician Psychiatry 11/16/18 Nathalia Rodas, PT Physical Therapist Physical Therapy 02/14/23 documented as of this encounter
--- OUTSIDE RECORDS SUMMARY | 2025-07-07 17:37 | XMS_ITS | Clinical Summary ---
Author Organization [facility] Address [address] [place] [address] Phone Care Team Providers Care Pay Station Department Manager Name Role Phone Laureano Lantigua MD Primary Care Provider [phone] Social History Tobacco Use Types Packs/Day Years [...] Cervical Cancer Screening (CCS) 2001 HPV/Cotest 2001 Cologuard 02/23/2016 Colonoscopy 02/23/2016 Colorectal Cancer Screening 02/23/2016 Immunochemical Fecal Occult Blood 02/23/2016 Pneumococcal Immunization (5 0+ years) (1 of 1 - PCV) 2021 Zoster Immunization (1 of 2) 2021 SARS-COV-2 Immunization ( - 2023-25 season) 2024 Influenza Immunization (#1) 2025 Respiratory Syncytial Virus (RSV) Immunization (Adult) (1 - 1-dose 75+ series) 2046 Human Papillomavirus (HPV) Immunization Aged Out No longer eligible b ased on patient's age to complete this topic Meningococcal Immunization (ACWY) Aged Out No longer eligible based on patient's age to complete this topic Rotavirus Immunization Aged Out No lo nger eligible based on patient's age to complete [place] [address] [place] [address] [facility] Care Teams Pay Station Department Manager Relationship Specialty Start Date End Date Laureano Lantigua MD [address] [place] [address] PCP - General Internal Medicine 01/19/16
--- OUTSIDE RECORDS SUMMARY | 2025-07-07 17:37 | XMS_ITS | Encounter Summary ---
Author Organization [facility] Address [address] [place] [address] Care Team Providers Care Bar Turner Name Role Phone Kelly Roberts RN Unavailable [phone] Iwona Lorenz MD Primary Care Provider [phone] Encounter Details Date Type Department Care Team (Late st Contact Info) Description 08/09/2021 Lab Requisition [facility] [address] [facility] [place] [address] Jose Raul Martinez Jr., MD [address] [facility] [address] [place] [address] Social History Tobacco Use Types Packs/Day Years Used Date Smoking Tobacco: Never Smokeless Tobacco: Never Alcohol Use Standard Drinks/Week Comments Yes 0 (1 standard drink = 0.6 oz pur e alcohol) social Comments No Sex and Gender Information Value Date Recorded Sex Assigned at Not on file Legal Sex Female 9:52 AM HAND PACKAGER Gender Identity Not on file Sexual Orientation Not on file 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 Unable to assess 08/03/2021 10:31 AM CDT documented as of this encounter Functional Status * Is person deaf or have serious hearing difficulty? Answer Date of Assessment Author No 12/29/2014 11:41 AM Cayla Tavera RN * Is person blind or have serious difficulty seeing? Answer Date of Assessment Author No 12/29/2014 11:41 AM Cayla Tavera RN * Does person have serious difficulty walking/climbing stairs? Answer Date of Assessment Author No 12/29/2014 11:41 AM Cayla Tavera RN * Does person have difficulty dressing/bathing? Answer Date of Assessment Author No 12/29/2014 11:41 AM Cayla Tavera RN * Does person have difficulty doing errands alone? Answer Date of Assessment Author No 12/29/2014 11:41 AM Cayla Tavera RN documented as of this encounter Mental Status * Does person have difficulty concentrating/remembering/making decisions? Answer Entry Date Author No 12/29/2014 11:41 AM Cayla Tavera RN documented in this encounter Plan of Treatment Not on file documented as of this encounter Procedures Procedure Name Priority Date/Time Associated Diagnosis Comments DERMATOPATHOLOGY Routine 08/08/2021 12:0 0 AM CDT documented in this encounter Results * DERMATOPATHOLOGY (08/08/2021 12:00 AM CDT) Case Report Dermatopathology Report Case: [id number] Authorizing Provider: Jose Raul Martinez Jr., MD Collected: 08/08/2021 12:00 AM Ordering Location: [facility] Lab Received: 08/09/2021 09:59 AM Pathologist: [...] TYPE (C44.41) 7:06 PM CDT DERMATOPATHOLOGY LABORATORY at 1906 CDT Clinical History A-B: Inflamed seborrheic keratosis vs squamous cell carcinoma. 7:06 PM CDT DERMATOPATHOLOGY LABORATORY Gross Description Specimen A: Received is one formalin filled container labeled with the patient's name and designated right distal pretibial region. The specimen consists of a shave biopsy measuring [id number]. Jar 0. Specimen B: Received is one formalin filled container labeled with the patient's name and designated left inferior lateral neck. The specimen consists of a shave biopsy measuring [id number]. Jar 0. 1 7:06 PM CDT DERMATOPATHOLOGY [...] cytoplasmic ratio and peripheral palisading. 7:06 PM CDT DERMATOPATHOLOGY LABORATORY Disclaimer An external and internal positive and negative controls are appropriate for the histochemical, immunohistochemical and immunofluorescence stain(s) in this case (if any), except where stated explicitly. The performance characteristics of the stain(s) cited in this report were developed and its performance characteristic determined by the Dermatopathology Laboratory at [facility], directed by Dr. Ambreen Beckham. These tests need not be, and therefore are not, approved by the [place] Food and Drug Administration. The tests are used for clinical purposes. Billing Codes Specimen Charges Stain Charges 39897 94029 1 1 1 7:06 PM CDT DERMATOPATHOLOGY LABORATORY Embedded Images 7:06 PM CDT DERMATOPATHOLOGY LABORATORY Pathology/Cytology TISSUE SPECIMEN FROM SKIN / Unknown 08/08/2021 08/09/2021 9:59 AM CDT Miscellaneous samples (specimen) TISSUE SPECIMEN FROM SKIN / Unknown 08/08/2021 08/09/2021 9:59 AM CDT us Jose Raul Martinez Jr., MD LAB - PATHOLOGY/CYTOLOG Y ORDERABLES Final Result DERMATOPATHOLOGY LABORATORY [facility] - Department of Dermatology [facility] Specialized Medicine [address] [facility] [phone] documented in this encounter Visit Diagnoses Not on filedocumented in this encounter Care Teams Bar Turner Relationship Specialty [place] [address] [place] [address] PCP - General 01/08/24 Kelly Roberts, CHEY Shift Production Supervisor 12/28/14 documented as of this encounter
--- OUTSIDE RECORDS SUMMARY | 2025-07-07 17:37 | XMS_ITS | Clinical Summary ---
Author Organization [facility] Address [address] [place] [address] Care Team Providers Care Stunt Performer Name Role Phone Laureano Lantigua MD Primary Care Provider [phone] Tony Washington MD Unavailable [phone] Anahy Rosales MD Unavailable [phone] Nathalia Rodas PT Unavailable Unavailable Allergies Active Allergy Reactions Criticality Noted Date Comments Erythromycin Rash Medium Morphine Nausea & Vomiting Low Nylon Rash Medium 09/19/2023 Stitches-severe redness: had to be removed early Medications ferrous sulfate 325 mg (65 mg of elemental iron) tabletIndications :Iron Deficiency Anemia Take 1 tablet (325 mg total) by mouth daily with breakfast Active albuterol HFA (PROVENTIL HFA,VENTOLIN HFA,PROAIR HFA) 90 mcg/actuation inhaler 2 puffs qid prn 1 each 11 2 Active Additional Information Patient taking differently: As needed, 2 puffs qid prn, Reported on 04/28/2025 magnesium phosphate, bulk, powderIndications :supplement Take 1 tablet by mouth every morning Active traZODone (DESYREL) 50 mg tabletIndications :sleep Take 1 tablet (50 mg total) by mouth nightly 3 Active methylphenidate HCl (RITALIN) 5 mg tabletIndications :Attention-Defici t Hyperactivity Disorder Take 1 tablet (5 mg total) by mouth daily with lunch 3 Active oxyCODONE-acetami nophen (PERCOCET) 5-325 mg per tabletIndications :Pain Take 1 tablet by mouth every 4 (four) hours as needed for pain 30 tablet 4 Active estradioL (VIVELLE-DOT) 0.075 mg/24 hrIndications:Vas omotor Symptoms associated with Menopause Place 1 patch on the skin 2 (two) times a week 26 patch 3 4 Active busPIRone (BUSPAR) 15 mg tablet Active Concerta 36 mg CR tablet Active buPROPion SR (WELLBUTRIN SR) 100 mg 12 hr tablet Take 1 tablet (100 mg total) by mouth 2 (two) times a day 4 Active desipramine (NORPRAMIN) 25 mg tablet Take 1 tablet (25 mg total) by mouth daily 30 tablet 3 4 025 Active tiZANidine (ZANAFLEX) 4 mg tablet Take 1 tablet (4 mg total) by mouth every 8 (eight) hours as needed for muscle spasms 90 tablet 3 4 Active amoxicillin 500 mg tablet 500 MG ORALLY ONCE TAKE 4 TABLETS 1 HOUR PRIOR TO PROCEDURE. 5 Active tretinoin (RETIN-A) 0.1 % cream APPLY PEA SIZE AMOUNT TO FACE AT BEDTIME 5 Active sucralfate (CARAFATE) suspension 1 gram/10 mL TAKE 5 ML (0.5 G TOTAL) BY MOUTH 4 (FOUR) TIMES A DAY 600 mL 5 025 Active lisinopriL (PRINIVIL,ZESTRIL ) 40 mg tablet Take 1 tablet (40 mg total) by mouth daily 90 tablet 3 5 026 Active hydroCHLOROthiazi de (HYDRODIURIL) 25 mg tablet Take 1 tablet (25 mg total) by mouth daily 90 tablet 3 5 026 Active Active Problems Problem Noted Date Diagnosed Date Lumbar facet arthropathy 02/16/2025 ECG abnormality 10/26/2024 Pre-op exam 10/25/2024 Assessment & Plan (10/25/2024 7:28 PM PIN CLEANER): Pt is medically optimized for hip surgery Forms were filled out today Will get the labs and EKG readings from [place] Primary hypertension 10/25/2024 Overview (07/07/2025): Only on lisinopril/hydrochlorothiazide 20/25 daily. Normal LVEF of 56% on echo 28 June 2025. No significant valvular heart disease. Normal Cardiolite perfusion with LVEF 65% on 06 July 2025 (had an abnormal EKG in October 2024 showing possible old anteroseptal WA). Assessment & Plan (04/28/2025 3:21 PM CDT): Patient was very nervous throughout my exam. There was pressure speech and a lot of movements with the arms and legs. Was very fidgety during my exam and she was doing her hair every few seconds. When I mentioned it, she says that this has been going on for over 30 years. Apparently has ADHD and she is taking Concerta and BuSpar. Apparently saw me many years ago and an echo was done to rule out mitral valve prolapse--none was seen. Patient tells me she had a cardiac catheterization in 2011 showing n o blockage. Now complaining of some leg swelling. Because blood pressure is high today, I will increase the lisinopril/hydrochlorothiazide to 40/25. There was an abnormal EKG in October 2024 showing possible o ld anteroseptal WA . She was very nervous about that because she felt nothing. Thus, I will get an echocardiogram to rule out wall motion abnormality and get a stress nuclear to rule out of flow abnormality in the LAD territory. Assessment & Plan (10/25/2024 7:27 PM PIN CLEANER): Goal bp is 130/80 or under Low [...] 11/02/2019 Recurrent major depressive disorder, in full rem ission 10/27/2017 Attention deficit hyperactivity disorder (ADHD) 10/27/2017 Tachycardia 12/28/2014 Morbid obesity 08/18/2014 Asthma 06/28/2014 Overview (02/20/2017): Asthma Osteoarthritis of cervical spine 10/08/2011 Lumbago 10/08/2011 Lumbar back pain 01/27/2011 Resolved Problems Problem Noted Date Diagnosed Date Resolved Date Excessive or frequent menstruation 03/12/2023 04/07/2023 Screen for colon cancer 01/03/2021 03/0 06/2022 Overview (01/03/2021): Added automatically from request for surgery [id number] Routine physical examination 11/16/2018 11/22/2019 Encounters Date Type Department Care Team Description 07/06/2025 6:52 AM CDT - 07/06/2025 11:59 PM CDT Hospital Encounter [facility] [address] [place] [address] Arrived Discharge Disposition: Discharge to home or self care 07/06/2025 6:52 AM CDT - 07/06/2025 11:59 PM CDT Hospital Encounter [facility] Card[facility] [address] [place] [phone] ECG abnormality Discharge Disposition: Discharge to home or self care 07/06/2025 6:52 AM CDT - 07/06/2025 11:59 PM CDT Hospital Encounter [address] [address] Arrived Discharge Disposition: Discharge to home or self care 07/06/2025 6:51 AM CDT - 07/06/2025 11:59 PM CDT Hospital Encounter [address] [address] ECG abnormality Discharge Disposition: Discharge to home or self care 07/01/2025 2:00 PM CDT Office Visit [facility] [address] [phone] [facility] Generalized anxiety disorder (Primary Dx); Other chronic pain; Other specified depressive disorder 06/28/2025 8:24 AM CDT - 06/28/2025 11:59 PM CDT Hospital Encounter [facility] Card[facility] [address] [place] [address] ECG abnormality Discharge Disposition: Discharge to home or self care 06/28/2025 Orders Only [facility] at [address] [phone] Emma Bazzi MD Chronic coronary microvascular dysfunction (Primary Dx) 06/28/2025 Results Follow-Up [facility] [address] [phone] Emma Bazzi MD Transthoracic Echo (TTE) Complete W Doppler/CF, NM MPI SPECT (Rest and/or Stress) Multiple Studies 06/16/2025 12:00 PM CDT [facility] [address] [place] [phone] Ct Zhang, PhD Generalized anxiety disorder (Primary Dx); Other chronic pain; Other specified depressive disorder 06/08/2025 7:45 AM CDT Therapy [facility] Physical Therapy [facility] [place] [address] Nathalia Rodas, PT Presence of left artificial hip joint (Primary Dx); Lumbar radiculopathy 05/31/2025 10:00 AM CDT [facility] [address] [place] [phone] Ct Zhang, PhD Generalized anxiety disorder (Primary Dx); Other chronic pain; Other specified depressive disorder 05/25/2025 4:45 PM CDT Therapy [facility] Physical Therapy [facility] [place] [address] Nathalia Rodas, PT Presence of left artificial hip joint (Primary Dx); Lumbar radiculopathy 05/10/2025 4:15 PM CDT Therapy [facility] [address] Nathalia Rodas, PT Presence of left artificial hip joint (Primary Dx); Lumbar radiculopathy 05/03/2025 9:00 AM CDT [facility] [address] [place] [phone] Ct Zhang, PhD Generalized anxiety disorder (Primary Dx) 04/28/2025 2:15 PM CDT Office Visit [facility] at [address] [phone] Emma Bazzi MD Primary hypertension (Primary Dx); Elevated blood pressure reading with diagnosis of hypertension; ECG abnormality 04/26/2025 7:00 AM CDT Therapy [address] [place] [address] Nathalia Rodas, PT Presence of left artificial hip joint (Primary Dx); Lumbar radiculopathy; History of spinal fusion 04/21/2025 10:15 AM CDT Therapy [place] [address] [place] [address] Nathalia Rodas, PT Presence of left artificial hip joint (Primary Dx); Lumbar radiculopathy; History of spinal fusion 04/12/2025 7:00 AM CDT Therapy [address] [place] [address] Nathalia Rodas, PT Presence of left artificial hip joint (Primary Dx); Lumbar radiculopathy; History of spinal fusion 04/08/2025 3:15 PM CDT Therapy [address] [place] [address] Nathalia Rodas, PT Presence of left artificial hip joint (Primary Dx); Lumbar radiculopathy; History of spinal fusion from Last 3 Months Immunizations Immunization Administration Dates Next Due Hep A, Adult 10/28/2018,02/04/2018 Hep B Vaccine 10/28/2018 Influenza, Quadrivalent, Spl it, Intramuscular 11/07/2016 Influenza, Quadrivalent, Spl it, Preservative Free, Intramuscular 10/20/2023,08/11/2021 Influenza, Unspecified 09/09/2024(Deferred: Lorraine ent Refused) Tdap 10/27/2017 Surgical History Surgery Date Site/Laterality [...] SURGERY 11/07/2020 Left x2 COLONOSCOPY 03/27/2021 1[facility] [place] 07/18/2021 - 08/16/2021 [...] Ab Hammer toe Hammer toe; Comm ents: [facility] 06/27/2014 - Retinal detachment Detachment of retina; Comments: [facility] 06/27/2014 - Hypercholesterolemia High choles terol; Comments: [facility] 06/27/2014 - Asthma Asthma; Comments : [facility] 06/27/2014 - Female infertility Infertility, female Hx Other Medical ; Outc ome: [id number] week 7lb(s) 7 oz Male Fibrocystic breast Motion sickness GERD (gastroesophageal reflux disease) Cancer (HCC) 2020 [facility] Anxiety 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 right [...] on file Legal Sex Female 1:37 AM PIN CLEANER Gender Identity Female 10/03/2023 10:05 AM PIN CLEANER Sexual Orientation Straight 10/03/2023 10 :05 AM PIN CLEANER Obstetrics History Para Term AB IAB SAB Ectopic Multiple Livin g Live Births 2 1 1 0 1 0 1 0 0 1 1 Date Outcome GA Total Labor Labor/2nd/3rd Weight Sex Type Anes PTL Casandra A1 A5 Name Clin Term Vag-Spo nt SAB Last Filed Vital Signs Vital Sign Reading Time Taken Comments Blood Pressure 191/100 02/16/2025 11:36 AM CDT Pulse 88 02/16/2025 11:36 AM CDT Temperature 36.2 C (97.2 F) 02/16/2025 11:36 AM CDT Respiratory Rate 12 04/28/2025 2:43 PM CDT Oxygen Saturation 99% 02/16/2025 11: 36 AM CDT Inhaled Oxygen Concentration - - Weight 101.1 kg (222 lb 12.8 oz) 04/28/2025 2:43 PM CDT Height 182.9 cm (6') 04/28/2025 2:43 PM CDT Body Mass Index 30.22 04/28/2025 2:43 PM CDT Plan of Treatment Health Maintenance Due Date Last Done Comments Hepatitis C Screening 1970 Pneumococcal vaccine <65 (1 of 2 - PCV) 1990 Zoster Vaccine (1 of 2) 2021 Breast Cancer Screening-Mammogram 01/01/2022 01/01/2021, 02/08/2019, 11/11/2017, Additional history exists Depression Screening 01/29/2024 01/28/2023, 01/22/2022, 11/22/2019 Covid-19 Vaccine (2 - 2023-2 5 season) 2024 01/25/2021 Cervical Cancer Screening 02/15/20252023, 01/28/2023, 01/22/2022, Additional history exists Regular Well Visit/Exam 18-64 02/15/2025, 10/20/2023, 01/28/2023, Additional history exists Influenza Vaccine (#1) 2025 , 08/11/2021, 11/07/2016 DTaP/Tdap/Td Vaccine (2 - Td or Tdap) [...] on stairs Contact your local community or [facility] for information on exercise, fall prevention programs, or options for improving home safety. Medical Devices Implanted Type Area Crystallographer Device Identifier Shelf Expiration Date Model / Serial / Lot Lspine Fusion Spine Lumbar Procedures Procedure Name Priority Date/Time Associated Diagnosis Comments STRESS TEST FOR DUAL READ Schedule Routine, Read Routine (OP Routine) 07/06/2025 8:18 AM CDT ECG abnormality NM MPI SPECT (REST AND/OR STRESS) MULTIPLE STUDIES Schedule Routine, Read Routine (OP Routine) 07/06/2025 8:18 AM CDT ECG abnormality TRANSTHORACIC ECHO (TTE) COMPLETE W DOPPLER/CF WO CONTRAST Routine 06/28/2025 8:51 AM CDT ECG abnormality PAP, REFLEX HPV Routine 02/16/2024 3:25 PM CDT Well woman exam COLONOSCOPY 03/27/2021 11:21 AM CDT SCREENING MAMMOGRAM BILATERAL W RADHA Schedule Routine, Read Routine (OP Routine) 01/01/2021 8:09 AM PIN CLEANER Encounter for screening mammogram for malignant neoplasm of breast from Last 3 Months or Most Recently Relevant to Health Maintenance Results * NM MPI SPECT (Rest and/or Stress) Multiple Studies (07/06/2025 8:18 AM CDT) Anatomical Region Laterality Modality Body N/A Nuclear Medicine 07/06/2025 7:00 AM CDT Narrative 07/06/2025 1:10 PM CDT [address] [address] MPI Report Patient Name: JOSHUA RAMIREZ R [...] Procedure Note Kathleen Coleman MD - 07/06/[address] [address] MPI Report Patient Name: JOSHUA RAMIREZ R [...] Kathleen Coleman MD 07/06/2025 11:51:30 AM CDT us Emma Bazzi MD IMG NM PROCEDURES Final Resul t * Stress Test for Myocardial Perfusion (07/06/2025 8:18 AM CDT) Anatomical Region Laterality Modality Nuclear Medicine 07/06/2025 7:00 AM CDT Narrative 07/06/2025 9:49 AM CDT [address] [address] MPI ECG Report Patient Name: JOSHUA RAMIREZ [...] BP: 149/66 METS achieved: 9.7 Rate-Pressure Product: 63359 BPM*mmHg Performed By: Supervising Physician: The Supervising Physician is emma bazzi. Reason for Termination: Fatigue. Dyspnea. THR achieved. Patient request. Resting ECG: Normal sinus rhythm at 88 beats per minute, right axis deviation, possible old anteroseptal WA. Post ECG: No diagnostic ST changes. Arrhythmia: [...] Procedure Note Emma Bazzi MD - 07/06/[address] [address] MPI ECG Report Patient Name: JOSHUA RAMIREZ [...] BP: 149/66 METS achieved: 9.7 Rate-Pressure Product: 62244 BPM*mmHg Performed By: Supervising Physician: The Supervising Physician is emma bazzi. Reason for Termination: Fatigue. Dyspnea. THR achieved. Patient request. Resting ECG: Normal sinus rhythm at 88 beats per minute, right axis deviation, possibleold anteroseptal WA. Post ECG: No diagnostic ST changes. Arrhythmia: [...] Dr Emma Bazzi 07/06/2025 9:20:47 AM CDT us Emma Bazzi MD CV STRESS PROCEDURES Final Re sult * TRANSTHORACIC ECHO (TTE) COMPLETE W DOPPLER/CF WO CONTRAST (06/28/2025 8:51 AM CDT) EF Mod BP 56 % CONS SCIMAGE Anatomical Region Laterality Modality Ultrasound 06/28/2025 8:26 AM CDT Narrative 06/28/2025 9:16 AM CDT [address] [place] [address] Echocardiogram Report Patient Name: JOSHUA RAMIREZ : 1970 Study Date: 06/28/2025 8:26:43 AM Gender: F Tech: NL Ref Provider: EMMA BAZZI Height(Cm): BSA: Weight(Kg): Quality: Adequate Order Provider: EMMA BAZZI PROCEDURES: Echocardiographic Report: Transthoracic echocardiogram with complete 2D, M-Mode, and color Doppler examination. INDICATIONS: R94.31 Abnormal electrocardiogram (ECG) (EKG). MEASUREMENTS: 2D/MM Value Range Doppler Value Range EF Mod BP 56 % [ 54 - 74 ] IVÁN Vmax 3.60 cm2 AV Mean PG 6 mmHg AV Peak Sj 1.47 m/s [ 1.00 - 1.70 ] AV VTI 34.50 cm LVOT Diam 2.60 cm LVOT Peak Sj 1.02 m/s [ 0.70 - 1.10 ] LVOT VTI 22.70 cm MV E Peak Sj 0.84 m/s [ 0.60 - 1.30 ] MV A Peak Sj 0.86 m/s [ 1.00 - 1.20 ] MV Mean PG 2 mmHg MV PHT 45 msec [ 20 - 100 ] MVA 4.90 MV Decel Time 154 msec [ 104 - 258 ] PV Peak Sj 0.93 m/s [ 0.40 - 0.80 ] E` 0.08 m/s E/E` 10.48 [ <= 10.00 ] 2D/MM Value Range Doppler Value Range - FINDINGS: Atrial Septum: Normal atrial septum. Left Ventricle: Normal left ventricular systolic function with no focal wall motion abnormalities. Normal left ventricular size. Mild concentric left ventricular hypertrophy. Impaired diastolic relaxation Grade I. Ejection fraction is measured at 56 %. Left Atrium: The left atrium is normal in size. Right Ventricle: Normal right ventricular size. Normal right ventricular systolic function. Right Atrium: The right atrium is normal in size. Aortic Valve: No evidence of hemodynamically significant aortic stenosis by Doppler. Aortic cusps appear mildly sclerotic. Mitral Valve: Trivial regurgitation of the mitral valve. Pulmonic Valve: Normal structure of the pulmonic valve. Tricuspid Valve: Right Ventricular Systolic Pressure could not be estimated due to inadequate visualization of TR jet. Pericardium: Normal pericardium with no significant pericardial effusion. Aorta: Normal aortic root. Sinus of Valsalva is normal. Aortic arch is normal. Descending aorta is normal. IVC: Normal size and normal respiratory collapse consistent with normal right atrial pressure (<5 mmHg). Pulmonary Artery: Normal pulmonary artery size. CONCLUSIONS: Normal left ventricular systolic function with no focal wall motion abnormalities. Normal left ventricular size. Mild concentric left ventricular hypertrophy. Impaired diastolic relaxation Grade I. Ejection fraction is measured at 56 %. Trivial regurgitation of the mitral valve. No evidence of hemodynamically significant aortic stenosis by Doppler. Aortic cusps appear mildly sclerotic. Right Ventricular Systolic Pressure could not be estimated due to inadequate visualization of TR jet. Technically difficult study with suboptimal parasternal views. Electronically Signed By: Armani Douglas MD 06/28/2025 9:16:03 AM CDT Procedure Note Aramni Douglas MD - 06/28/[address] [address] Echocardiogram Report Patient Name: JOSHUA RAMIREZ : 1970 Study Date: 06/28/2025 8:26:43 AM Gender: F Tech: NL Ref Provider: EMMA BAZZI Height(Cm): BSA: Weight(Kg): Quality: Adequate Order Provider: EMMA BAZZI PROCEDURES: Echocardiographic Report: Transthoracic echocardiogram with complete 2D, M-Mode, and color Dopplerexamination. INDICATIONS: R94.31 Abnormal electrocardiogram (ECG) (EKG). MEASUREMENTS: 2D/MM Value Range Doppler Value Range EF Mod BP 56 % [ 54 - 74 ] IVÁN Vmax 3.60 cm2 AV Mean PG 6 mmHg AV Peak Sj 1.47 m/s [ 1.00 - 1.70 ] AV VTI 34.50 cm LVOT Diam 2.60 cm LVOT Peak Sj 1.02 m/s [ 0.70 - 1.10 ] LVOT VTI 22.70 cm MV E Peak Sj 0.84 m/s [ 0.60 - 1.30 ] MV A Peak Sj 0.86 m/s [ 1.00 - 1.20 ] MV Mean PG 2 mmHg MV PHT 45 msec [ 20 - 100 ] MVA 4.90 MV Decel Time 154 msec [ 104 - 258 ] PV Peak Sj 0.93 m/s [ 0.40 - 0.80 ] E` 0.08 m/s E/E` 10.48 [ <= 10.00 ] 2D/MM Value Range Doppler Value Range - FINDINGS: Atrial Septum: Normal atrial septum. Left Ventricle: Normal left ventricular systolic function with no focal wall motionabnormalities. Normal left ventricular size. Mild concentric left ventricular hypertrophy.Impaired diastolic relaxation Grade I. Ejection fraction is measured at 56 %. Left Atrium: The left atrium is normal in size. Right Ventricle: Normal right ventricular size. Normal right ventricular systolicfunction. Right Atrium: The right atrium is normal in size. Aortic Valve: No evidence of hemodynamically significant aortic stenosis by Doppler.Aortic cusps appear mildly sclerotic. Mitral Valve: Trivial regurgitation of the mitral valve. Pulmonic Valve: Normal structure of the pulmonic valve. Tricuspid Valve: Right Ventricular Systolic Pressure could not be estimated due toinadequate visualization of TR jet. Pericardium: Normal pericardium with no significant pericardial effusion. Aorta: Normal aortic root. Sinus of Valsalva is normal. Aortic arch is normal.Descending aorta is normal. IVC: Normal size and normal respiratory collapse consistent with normal rightatrial pressure (<5 mmHg). Pulmonary Artery: Normal pulmonary artery size. CONCLUSIONS: Normal left ventricular systolic function with no focal wall motionabnormalities. Normal left ventricular size. Mild concentric left ventricular hypertrophy.Impaired diastolic relaxation Grade I. Ejection fraction is measured at 56 %. Trivial regurgitation of the mitral valve. No evidence of hemodynamically significant aortic stenosis by Doppler.Aortic cusps appear mildly sclerotic. Right Ventricular Systolic Pressure could not be estimated due toinadequate visualization of TR jet. Technically difficult study with suboptimal parasternal views. Electronically Signed By: Armani Douglas MD 06/28/2025 9:16:03 AM CDT us Emma Bazzi MD CV ECHO PROCEDURES Final Resu lt * Pap, reflex HPV (02/16/2024 3:25 PM [...] has been evaluated with computer assisted technology. Material [facility] st Philip Hwang Comment: BKA, CT(ASCP) CT screening location: [place] [address] [address] [place] [address] Comment Arsenio Hwang Comment: EXPLANATORY NOTE: The [...] MD LAB CYTOLOGY ORDERABLES Fi nal Result [facility] [address] [address] [place] [phone] * COLONOSCOPY (03/27/2021 11:21 AM CDT) Anatomical Region Laterality Modality Other Narrative Procedure Note Manuel Tanner MD - 03/27/2021 11:21 AM CDT [facility] Patient Name: Joshua Ramirez Procedure Date: 03/27/2021 11:21 AM Date of : 1970 Admit Type: Outpatient Age: 51 Gender: Female Attending MD: Manuel Tanner M.D. Room: [facility] ENDOSCOPY ROOM 1 Note [...] under direct vision. The Pediatric Colonoscope [id number] was introducedthrough the anus and advanced to [...] 11:21 AM Procedure Code(s): --- Professional --- 32601, Colonoscopy, flexible; diagnostic, including collection of specimen(s) by brushing or washing, when performed (separateprocedure) Diagnosis Code(s): --- Professional --- Z12.11, Encounter for screening for malignant neoplasm of colon K64.8, Other hemorrhoids K57.30, Diverticulosis of large intestine without perforation orabscess without bleeding CPT copyright 2019 [employer]. All rights reserved. The codes documented in this report are preliminary and upon mortising machine operator reviewmay be revised to meet current compliance requirements. Recognized by the [employer] for promoting quality in endoscopy Manuel Tanner MD ENDOSCOPY PROCEDURES Final Result * SCREENING MAMMOGRAM BILATERAL W RADHA (01/01/2021 8:09 AM PIN CLEANER) Anatomical Region Laterality Modality Breast Bilateral Mammography 01/01/2021 8:48 AM PIN CLEANER Impressions 01/01/2021 9:24 AM PIN CLEANER There is no mammographic evidence of malignancy. A 1 year screening mammogram is recommended. BI-RADS: 1 - Negative. The patient will be entered into a reminder system with a target due date of 1 year for her next mammogram. Electronically signed by: MD Waleska Turpin 01/01/2021 9:24 AM PIN CLEANER EXAMINATION: SCREENING MAMMOGRAM BILATERAL W RADHA ORDERING [...] Most Recently Relevant to [place] [address] [employer] [place] [address] [employer] Advance Directives For more information, please contact: [phone] * Full Code (Latest Code Status on File) Date Activated Date Inactivated Comments 03/12/2023 10:30 AM 03/12/2023 3:15 PM * Full Code Date Activated Date Inactivated Comments 03/27/2021 11:43 AM 03/27/2021 5:47 PM Care Teams Stunt Performer Relationship Specialty Start Date End Date Laureano Lantigua MD [address] [place] [address] PCP - General Internal Medicine 07/30/18 Tony Washington MD [address] [place] [address] [address] [place] [address] Lehr Operator Obstetrics and Gynecology 11/16/18 Anahy Rosales MD [address] [place] [address] [address] [place] [address] Referring Physician Psychiatry 11/16/18 Nathalia Rodas, PT Physical Therapist Physical Therapy 02/14/23
--- OUTSIDE RECORDS SUMMARY | 2025-07-07 17:37 | XMS_ITS | Encounter Summary ---
Author Organization [facility] Health Address [address] [place] [address] Care Team Providers Care Donor Relations Officer Name Role Phone Kelly Roberts RN Unavailable [phone] Iwona Lorenz MD Primary Care Provider [phone] Encounter Details Date Type Department Care Team (Late st Contact Info) Description 05/03/2011 [facility] Outpatient Visit [place]TERNAL [place] [place] [address] [place] [address] Social History Tobacco Use Types Packs/Day Years Used Date Smoking Tobacco: Never Smokeless Tobacco: Never Alcohol Use Standard Drinks/Week Comments Yes 0 (1 standard drink = 0.6 oz pur e alcohol) social Comments No Sex and Gender Information Value Date Recorded Sex Assigned at Not on file Legal Sex Female 9:52 AM ACCOUNTS PAYABLE PROFESSIONAL Gender Identity Not on file Sexual Orientation Not on file Occupation Industry Job Start Date Job End Date [employer] Not on file Not on file Not on file documented as of this encounter Plan of Treatment Not on file documented as of this encounter Visit Diagnoses Not on filedocumented in this encounter Care Teams Donor Relations Officer Relationship Specialty [place] [address] [place] [address] PCP - General 01/08/24 Kelly Roberts, CHEY Supervisor Phosphorus Processing 12/28/14 documented as of this encounter
--- OUTSIDE RECORDS SUMMARY | 2025-07-07 17:37 | XMS_ITS | Encounter Summary ---
Author Organization [facility] Healthcare Address [address] [place] [address] Care Team Providers Care Cordwood Cutter Name Role Phone Laureano Lantigua MD Primary Care Provider [phone] Tony Washington MD Unavailable [phone] Anahy Rosales MD Unavailable [phone] Nathalia Rodas PT Unavailable Unavailable Encounter Details Date Type Department Care Team (Late st Contact Info) Description 06/28/2025 Results Follow-Up [employer] Executive at [address] [place] [address] Ramiro Chin MD [address] [place] [address] [address] [place] [address] Transthoracic Echo (TTE) Complete W Doppler/CF, NM MPI SPECT (Rest and/or Stress) Multiple Studies Social History Tobacco Use Types Packs/Day Years [...] on file Legal Sex Female 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 and My Chart * Telephone Encounter - Gin Alexandra MA - 07/07/2025 9:19 AM CDT ----- Message from Ramiro Chin MD sent at 07/07/2025 8:24 AM CDT ----- Please tell patient heart perfusion looked good and heart function also okay. There is no evidence of any infarction as noted on the EKG from October 2024. ----- Message ----- From: Interface, Cardiology Results In Sent: 07/06/2025 1:11 PM CDT To: Ramiro Chin MD documented in this encounter Plan of [...] needed Reduce the likelihood of falling Lifestyle Fely Jones, RN Note: Below are four things you [...] on stairs Contact your local community or the [facility] for information on exercise, fall prevention programs, or options for improving home safety. documented as of this encounter Visit Diagnoses Not on filedocumented in this encounter Care Teams Cordwood Cutter Relationship Specialty Start Date End Date Laureano Lantigua MD [address] [place] [address] PCP - General Internal Medicine 07/30/18 Tony Washington MD [address] [place] [address] Public Health Outreach Worker Obstetrics and Gynecology 11/16/18 Anahy Rosales MD [address] [address] Referring Physician Psychiatry 11/16/18 Nathalia Rodas, PT Physical Therapist Physical Therapy 02/14/23 documented as of this encounter
== END ==
PROVIDERS: PCP Orthopaedic Surgery; Visit Provider Orthopaedic Surgery
DX: Z47.1 Aftercare following joint replacement surgery (principal); Z96.642 Presence of left artificial hip joint
CPT/HCPCS: 73502